=== PATIENT | male | born 1965 | race Caucasian/White ===

== ENCOUNTER 2017-12-28 07:15 | Emergency (ER) | payer SELFPAY ==
[2017-12-28] MEDS: IV NORMAL SALINE 500ML BAG 500 ML IV ×2 (07:36→08:57)
[2017-12-28 07:52] LABS: BASO # 0.1 x10^3/uL (0.0-0.2); BASO % 1 % (0-3); EOS # 2.1 x10^3/uL (0.0-0.7); EOS % 15 % (0-3); HEMATOCRIT 28.6 % (39.0-53.0); HEMOGLOBIN 9.1 g/dL (13.0-17.5); LYMPH # 2.1 x10^3/uL (1.0-4.8); LYMPH % 15 % (24-48); MEAN CORPUSCULAR HEMOGLOBIN 28 pg (25-35); MEAN CORPUSCULAR HGB CONC 32 g/dL (31-37); MEAN CORPUSCULAR VOLUME 89 fL (79-100); MONO # 2.4 x10^3/uL (0.0-1.1); MONO % 17 % (0-9); NEUT # 7.6 x10^3uL (1.8-7.7); NEUT % 53 % (31-73); PLATELET COUNT 295 x10^3/uL (140-400); RED BLOOD COUNT 3.21 x10^6/uL (4.30-5.70); RED CELL DISTRIBUTION WIDTH 15.6 % (11.5-14.5); WHITE BLOOD COUNT 14.4 x10^3/uL (4.0-11.0)
[2017-12-28 07:56] LABS: ANION GAP 14 (6-14); BLOOD UREA NITROGEN 46 mg/dL (8-26); CALCIUM 8.9 mg/dL (8.5-10.1); CARBON DIOXIDE 24 mmol/L (21-32); CHLORIDE 102 mmol/L (98-107); CREATININE 7.2 mg/dL (0.7-1.3); GLUCOSE 102 mg/dL (70-99); POTASSIUM 4.3 mmol/L (3.5-5.1); SODIUM 140 mmol/L (136-145)
[2017-12-28 08:28] LABS: ADD MAN DIFF? YES
[2017-12-28 09:57] LABS: % ATYL 1 % (0-0); % BANDS 1 % (0-9); % EOS 15 % (0-5); % LYMPHS 9 % (24-48); % MONOS 23 % (0-10); % SEGS 51 % (35-66); PLT ESTIMATE ADEQUATE (ADEQUATE)
== END 2017-12-28 09:45 | disposition home or self-care (01) ==
LOC: ER 07:15
DX: Z01.89 Encounter for other specified special examinations (principal); N17.9 Acute kidney failure, unspecified; R00.0 Tachycardia, unspecified
CPT/HCPCS: 36415; 80048; 85007; 85025; 93005; 99285-25; J7040

== ENCOUNTER 2017-12-30 07:53 | Emergency (ER) | payer SELFPAY ==
[2017-12-30] MEDS: IV NORMAL SALINE 500ML BAG 500 ML IV (08:26)
[2017-12-30] MEDS ORDERED: IV NORMAL SALINE 500ML BAG 500 ML IV (08:30)
[2017-12-30 08:48] LABS: ANION GAP 18 (6-14); BLOOD UREA NITROGEN 85 mg/dL (8-26); CALCIUM 8.7 mg/dL (8.5-10.1); CARBON DIOXIDE 19 mmol/L (21-32); CHLORIDE 100 mmol/L (98-107); CREATININE 10.7 mg/dL (0.7-1.3); GFR 5.1; GLUCOSE 125 mg/dL (70-99); POTASSIUM 4.3 mmol/L (3.5-5.1); SODIUM 137 mmol/L (136-145)
[2017-12-30 09:32] LABS: ADD MAN DIFF? NO
[2017-12-30 09:36] LABS: BASO # 0.1 x10^3/uL (0.0-0.2); BASO % 1 % (0-3); EOS # 2.1 x10^3/uL (0.0-0.7); EOS % 15 % (0-3); LYMPH # 1.6 x10^3/uL (1.0-4.8); LYMPH % 11 % (24-48); MEAN CORPUSCULAR HEMOGLOBIN 29 pg (25-35); MEAN CORPUSCULAR HGB CONC 33 g/dL (31-37); MEAN CORPUSCULAR VOLUME 88 fL (79-100); MONO # 2.3 x10^3/uL (0.0-1.1); MONO % 16 % (0-9); NEUT # 8.1 x10^3uL (1.8-7.7); NEUT % 58 % (31-73); PLATELET COUNT 257 x10^3/uL (140-400); RED BLOOD COUNT 2.24 x10^6/uL (4.30-5.70); RED CELL DISTRIBUTION WIDTH 15.7 % (11.5-14.5); WHITE BLOOD COUNT 14.2 x10^3/uL (4.0-11.0)
[2017-12-30 09:38] LABS: HEMOGLOBIN 6.5 g/dL (13.0-17.5)
[2017-12-30 09:39] LABS: HEMATOCRIT 19.7 % (39.0-53.0)
== END 2017-12-30 09:50 | disposition left against medical advice (07) ==
LOC: ER 09:50
DX: N18.6 End stage renal disease (principal); D63.1 Anemia in chronic kidney disease; Z99.2 Dependence on renal dialysis
CPT/HCPCS: 36415; 80048; 85025; 99284; J7040

== ENCOUNTER 2018-01-04 07:23 | Emergency (ER) | payer SELFPAY ==
[2018-01-04 07:50] LABS: ADD MAN DIFF? NO
[2018-01-04 08:00] LABS: ANION GAP 19 (6-14); BLOOD UREA NITROGEN 86 mg/dL (8-26); BUN/CREATININE RATIO 7 (6-20); CALCIUM 9.1 mg/dL (8.5-10.1); CARBON DIOXIDE 16 mmol/L (21-32); CHLORIDE 102 mmol/L (98-107); CREATININE 11.5 mg/dL (0.7-1.3); GFR 4.7; GLUCOSE 197 mg/dL (70-99); POTASSIUM 4.4 mmol/L (3.5-5.1); SODIUM 137 mmol/L (136-145)
[2018-01-04 08:02] LABS: BASO # 0.1 x10^3/uL (0.0-0.2); BASO % 1 % (0-3); EOS # 1.6 x10^3/uL (0.0-0.7); EOS % 13 % (0-3); HEMATOCRIT 24.6 % (39.0-53.0); HEMOGLOBIN 7.9 g/dL (13.0-17.5); LYMPH # 1.1 x10^3/uL (1.0-4.8); LYMPH % 9 % (24-48); MEAN CORPUSCULAR HEMOGLOBIN 28 pg (25-35); MEAN CORPUSCULAR HGB CONC 32 g/dL (31-37); MEAN CORPUSCULAR VOLUME 88 fL (79-100); MONO % 8 % (0-9); NEUT # 8.9 x10^3uL (1.8-7.7); NEUT % 70 % (31-73); PLATELET COUNT 397 x10^3/uL (140-400); RED CELL DISTRIBUTION WIDTH 16.6 % (11.5-14.5); WHITE BLOOD COUNT 12.7 x10^3/uL (4.0-11.0)
[2018-01-04 08:05] LABS: ALBUMIN 2.8 g/dL (3.4-5.0); ALBUMIN/GLOBULIN RATIO 0.5 (1.0-1.7); ALK PHOS 110 U/L (46-116); ALT (SGPT) 23 U/L (16-63); AST (SGOT) 21 U/L (15-37); TOTAL BILIRUBIN 0.2 mg/dL (0.2-1.0); TOTAL PROTEIN 8.1 g/dL (6.4-8.2)
== END 2018-01-04 08:40 | disposition home or self-care (01) ==
LOC: ER 07:23
DX: N18.6 End stage renal disease (principal); Z99.2 Dependence on renal dialysis
CPT/HCPCS: 36415; 80053; 85025; 93005; 99285-25

== ENCOUNTER 2018-01-23 08:03 | Emergency (ER) | payer SELFPAY ==
[2018-01-23 08:37] LABS: ADD MAN DIFF? NO
[2018-01-23 08:42] LABS: BASO # 0.1 x10^3/uL (0.0-0.2); BASO % 1 % (0-3); EOS # 0.8 x10^3/uL (0.0-0.7); EOS % 10 % (0-3); HEMATOCRIT 23.5 % (39.0-53.0); HEMOGLOBIN 7.6 g/dL (13.0-17.5); LYMPH # 1.3 x10^3/uL (1.0-4.8); LYMPH % 17 % (24-48); MEAN CORPUSCULAR HEMOGLOBIN 29 pg (25-35); MEAN CORPUSCULAR HGB CONC 32 g/dL (31-37); MEAN CORPUSCULAR VOLUME 88 fL (79-100); MONO # 1.2 x10^3/uL (0.0-1.1); MONO % 15 % (0-9); NEUT # 4.5 x10^3uL (1.8-7.7); NEUT % 57 % (31-73); PLATELET COUNT 262 x10^3/uL (140-400); RED BLOOD COUNT 2.67 x10^6/uL (4.30-5.70); RED CELL DISTRIBUTION WIDTH 17.9 % (11.5-14.5); WHITE BLOOD COUNT 7.9 x10^3/uL (4.0-11.0)
[2018-01-23 08:54] LABS: ANION GAP 17 (6-14); BLOOD UREA NITROGEN 85 mg/dL (8-26); CALCIUM 8.4 mg/dL (8.5-10.1); CARBON DIOXIDE 13 mmol/L (21-32); CHLORIDE 103 mmol/L (98-107); CREATININE 9.4 mg/dL (0.7-1.3); GFR 5.9; GLUCOSE 92 mg/dL (70-99); POTASSIUM 3.9 mmol/L (3.5-5.1); SODIUM 133 mmol/L (136-145)
[2018-01-23] MEDS: SODIUM BICARBONATE VIAL 150 MEQ in IV STERILE WATER 1,000 ML IV (09:15)
== END 2018-01-23 09:18 | disposition left against medical advice (07) ==
LOC: ER 08:03
DX: N18.6 End stage renal disease (principal); D63.8 Anemia in other chronic diseases classified elsewhere; Z99.2 Dependence on renal dialysis
CPT/HCPCS: 36415; 80048; 85025; 93005; 99285-25

== ENCOUNTER 2018-05-22 01:01 | Emergency (ER) | payer MEDICAID, OTHER ==
[~2018-05-22] VITALS: Ht 172.7 cm; Wt 72.6 kg
[~2018-05-22 01:01] MED LIST: FINA5TAB4 PO; OXYC5CAP PO; PANT20TA2 PO; SODI650T PO; TAMS0.4C97 PO
[2018-05-22 02:30] VITALS: BP 132/62
[2018-05-22 02:37] LABS: BILIRUBIN,URINE NEGATIVE (NEG); CLARITY,URINE TURBID; COLOR,URINE YELLOW; NITRITE,URINE POSITIVE (NEG); PROTEIN,URINE 100 mg/dL (NEG-TRACE); UROBILINOGEN,URINE 0.2 mg/dL (0.2 mg/dL)
[2018-05-22 02:48] LABS: RBC,URINE OCC /HPF (0-2); WBC,URINE TNTC /HPF (0-4)
[2018-05-22 02:49] LABS: BACTERIA,URINE FEW /HPF (0-FEW)
[2018-05-22] MEDS ORDERED: CEPH-264 PO (03:01)
--- NOTE | 2018-05-22 03:02 | PHYS DOC ---
Past Medical History Past Medical History: Renal Failure Additional Past Medical Histor: INCONTINENCE Past Surgical History: Other Additional Past Surgical Histo: Dialysis cath right chest Alcohol Use: None Drug Use: None Adult General Chief Complaint Chief Complaint: URINE CATHETER PROBLEM HPI HPI Patient is a 52 year old [f__sex] who presents with [] Review of Systems Review of Systems Constitutional: Denies fever or chills [] Eyes: Denies change in visual acuity, redness, or eye pain [] HENT: Denies nasal congestion or sore throat [] Respiratory: Denies cough or shortness of breath [] Cardiovascular: No additional information not addressed in HPI [] GI: Denies abdominal pain, nausea, vomiting, bloody stools or diarrhea [] : Denies dysuria or hematuria [] Musculoskeletal: Denies back pain or joint pain [] Integument: Denies rash or skin lesions [] Neurologic: Denies headache, focal weakness or sensory changes [] Endocrine: Denies polyuria or polydipsia [] All other systems were reviewed and found to be within normal limits, except as documented in this note. Current Medications Current Medications Current Medications Medications (Trade) Dose Ordered Sig/Kevin Start Time Stop Time Status Last Admin Dose Admin Cephalexin HCl (Keflex) 500 mg 1X ONCE 05/22/18 03:30 05/22/18 03:31 Allergies Allergies Allergies Coded Allergies Type Severity Reaction Last Updated Verified No Known Drug Allergies 01/04/18 No Physical Exam Physical Exam Constitutional: Well developed, well nourished, no acute distress, non-toxic appearance. [] HENT: Normocephalic, atraumatic, bilateral external ears normal, oropharynx moist, no oral exudates, nose normal. [] Eyes: PERRLA, EOMI, conjunctiva normal, no discharge. [] Neck: Normal range of motion, no tenderness, supple, no stridor. [] Cardiovascular:Heart rate regular rhythm, no murmur [] Lungs & Thorax: Bilateral breath sounds clear to auscultation [] Abdomen: Bowel sounds normal, soft, no tenderness, no masses, no pulsatile masses. [] Skin: Warm, dry, no erythema, no rash. [] Back: No tenderness, no CVA tenderness. [] Extremities: No tenderness, no cyanosis, no clubbing, ROM intact, no edema. [] Neurologic: Alert and oriented X 3, normal motor function, normal sensory function, no focal deficits noted. [] Psychologic: Affect normal, judgement normal, mood normal. [] Current Patient Data Vital Signs Vital Signs Date Time Temp Pulse Resp B/P (MAP) Pulse Ox O2 Delivery O2 Flow Rate FiO2 05/22/18 01:47 97.8 86 20 135/68 (90) 99 Room Air 97.8 Lab Values Laboratory Tests Test 05/22/18 02:26 Urine Collection Type Suprapubic Urine Color Yellow Urine Clarity Turbid Urine pH 6.0 Urine Specific [place] 1.010 Urine Protein 100 mg/dL (NEG-TRACE) Urine Glucose (UA) Negative mg/dL (NEG) Urine Ketones (Stick) Negative mg/dL (NEG) Urine Blood Large (NEG) Urine Nitrite Positive (NEG) Urine Bilirubin Negative (NEG) Urine Urobilinogen Dipstick 0.2 mg/dL (0.2 mg/dL) Urine Leukocyte Esterase Large (NEG) Urine RBC Occ /HPF (0-2) Urine WBC Tntc /HPF (0-4) Urine Bacteria Few /HPF (0-FEW) Urine Mucus Slight /LPF EKG EKG [] Radiology/Procedures Radiology/Procedures [] Course & Med Decision Making Course & Med Decision Making Pertinent Labs and Imaging studies reviewed. (See chart for details) [] Dragon Disclaimer Dragon Disclaimer This electronic medical record was generated, in whole or in part, using a voice recognition dictation system. Departure Departure Impression: Primary Impression: Suprapubic catheter dysfunction Additional Impression: Acute UTI Disposition: 01 HOME, SELF-CARE Condition: STABLE Referrals: NO PCP (PCP) Patient Instructions: Suprapubic Catheter Replacement, Care After, Urinary Tract Infection, [id number] Scripts Cephalexin (KEFLEX) 500 Mg Capsule 500 MG PO TID for 7 Days, #21 CAP Prov: FAMILIA INIGUEZ DO 05/22/18 Problem Qualifiers Primary Impression: Suprapubic catheter dysfunction Encounter type: initial encounter Qualified Codes: T83.010A - Breakdown ( mechanical) of cystostomy catheter, initial encounter FAMILIA INIGUEZ DO May 22, 2018 03:02
[2018-05-22] MEDS ORDERED: CEPHALEXIN 250 MG CAPSULE. PO ONE (03:30)
== END 2018-05-22 03:15 | disposition home or self-care (01) ==
LOC: ER 01:01
DX: T83.010A Breakdown (mechanical) of cystostomy catheter, initial encounter (principal); N39.0 Urinary tract infection, site not specified; Y82.8 Other medical devices associated with adverse incidents; Y92.89 Other specified places as the place of occurrence of the external cause
CPT/HCPCS: 51702; 81001; 87086; 99284-25

== ENCOUNTER 2018-08-05 17:50 | Inpatient (IN) | payer OTHER ==
[~2018-08-05] VITALS: Ht 172.7 cm; Wt 61.7 kg
[~2018-08-05 17:50] MED LIST changes: +CEPH-264 PO; +FERR325T72 PO; +IPRA3AMP29 NEB; +LINE600T PO
--- NOTE | 2018-08-05 18:08 | EKG ---
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
[2018-08-05 18:11] LABS: BASO % 0 % (0-3); EOS # 0.2 x10^3/uL (0.0-0.7); EOS % 2 % (0-3); LYMPH # 1.6 x10^3/uL (1.0-4.8); LYMPH % 19 % (24-48); MEAN CORPUSCULAR HEMOGLOBIN 29 pg (25-35); MEAN CORPUSCULAR HGB CONC 34 g/dL (31-37); MEAN CORPUSCULAR VOLUME 87 fL (79-100); MONO # 1.1 x10^3/uL (0.0-1.1); MONO % 13 % (0-9); NEUT # 5.7 x10^3uL (1.8-7.7); NEUT % 66 % (31-73); PLATELET COUNT 174 x10^3/uL (140-400); RED BLOOD COUNT 1.89 x10^6/uL (4.30-5.70); RED CELL DISTRIBUTION WIDTH 15.6 % (11.5-14.5); WHITE BLOOD COUNT 8.6 x10^3/uL (4.0-11.0)
[2018-08-05 18:14] LABS: HEMATOCRIT 16.4 % (39.0-53.0); HEMOGLOBIN 5.5 g/dL (13.0-17.5)
[2018-08-05 18:25] LABS: CALCIUM 8.6 mg/dL (8.5-10.1); GFR 12.2
[2018-08-05 18:37] LABS: PROTHROMBIN TIME PATIENT 15.7 SEC (11.7-14.0)
--- NOTE | 2018-08-05 18:37 | PHYS DOC ---
Past Medical History Past Medical History: Renal Failure, Other Additional Past Medical Histor: INCONTINENCE Past Surgical History: Other Additional Past Surgical Histo: Dialysis cath right chest, LEFT KIDNEY STENT, SUPRAPUBIC CATH Alcohol Use: None Drug Use: None Adult General Chief Complaint Chief Complaint: SHORTNESS OF BREATH HPI HPI 53-year-old male presents to ER via EMS for complaints of increased shortness of air and fatigue. Patient is a dialysis patient and had 3 hours of dialysis yesterday which he reports was shorter than his typical 4 hours however whether did not allow him to have the full length. Patient states over the past several days he's had increased shortness of air which is worse with any exertion. Denies any chest pain, swelling, or palpitations. Patient denies cough, fever or chills, or N/V/D. patient reports he has had increased fatigue and weakness denies focal neuro deficits. Patient states the last time he felt this short of air his hemoglobin was low. Patient states he is O2 dependent at 2 L on home. Review of Systems Review of Systems Constitutional: Denies fever or chills. Reports generalized fatigue and weakness Eyes: Denies change in visual acuity, redness, or eye pain [] HENT: Denies nasal congestion or sore throat [] Respiratory: Denies cough. Reports SOA w/increased sxs during exertion Cardiovascular: Denies CP/palpitations GI: Denies abdominal pain, nausea, vomiting, bloody stools or diarrhea [] : Denies dysuria or hematuria [] Musculoskeletal: Denies back pain or joint pain [] Integument: Denies rash or skin lesions [] Neurologic: Denies headache, focal weakness or sensory changes [] Endocrine: Denies polyuria or polydipsia [] All other systems were reviewed and found to be within normal limits, except as documented in this note. Current Medications Current Medications Current Medications Medications (Trade) Dose Ordered Sig/Kevin Start Time Stop Time Status Last Admin Dose Admin Acetaminophen (Tylenol) 650 mg PRN Q4HRS PRN 08/05/18 20:15 08/06/18 12:38 DC Albuterol/ Ipratropium (Duoneb) 3 ml 1X ONCE 08/05/18 20:15 08/05/18 20:16 DC 08/05/18 19:42 3 ML Benzonatate (Tessalon Perle) 100 mg 1X ONCE 08/05/18 21:00 08/05/18 21:01 DC 08/05/18 20:42 100 MG Lorazepam (Ativan) 1 mg 1X ONCE 08/05/18 21:00 08/05/18 21:01 DC 08/05/18 20:43 1 MG Piperacillin Sod/ Tazobactam Sod 3.375 gm/Sodium Chloride 50 ml @ 100 mls/hr 1X ONCE 08/05/18 21:00 08/05/18 21:29 DC 08/05/18 20:42 100 MLS/HR Sodium Chloride 500 ml @ 500 mls/hr 1X ONCE 08/05/18 21:00 08/05/18 21:59 DC 08/05/18 21:20 500 MLS/HR Throat Lozenges (Cepacol Sore Throat Lozenge) 1 breezy PRN Q2HRS PRN 08/05/18 20:30 Vancomycin HCl 1.75 gm/Sodium Chloride 500 ml @ 250 mls/hr 1X ONCE 08/05/18 21:00 08/05/18 22:59 DC 08/05/18 21:21 250 MLS/HR Allergies Allergies Allergies Coded Allergies Type Severity Reaction Last Updated Verified No Known Drug Allergies 01/04/18 No Physical Exam Physical Exam Constitutional: Well developed, well nourished, no acute distress, non-toxic appearance.Fatigued/frail appearance HENT: Normocephalic, atraumatic, mucous membranes pale/dry, no oral exudates, nose normal. [] Eyes: PERRLA, no nystagmus, conjunctiva pale, no discharge. [] Neck: Normal range of motion, no tenderness, supple, no stridor. [] Cardiovascular: Tachycardic heart rate regular rhythm, no murmur [] Lungs & Thorax: Bilateral breath sounds clear to auscultation- diminished in bases. Resp. equal/nonlabored. O2 via NC at 3L. Rt upper chest dialysis cath Abdomen: Bowel sounds normal, soft, no tenderness, no masses, no pulsatile masses. Suprapubic catheter left lower abdomen- no swelling, drainage, or erythema at site-attached to drainage bag- concentrated urine in bag Skin: Warm, dry, no erythema, no rash. [] Back: No tenderness, no CVA tenderness. [] Extremities: No tenderness, no cyanosis, no clubbing, ROM intact, no edema. Neurologic: Alert and oriented X 3, normal motor function, normal sensory function, no focal deficits noted. [] Psychologic: Affect normal, judgement normal, anxious at times during initial exam. When patient was moved from EMS cart onto ER cart patient had increased shortness of air and was anxious requesting oxygen to be turned up. Once settled onto ER cart and reassurance provided patient was able to become calm having no uncontrollable behavior. 1830: Rectal exam complete with RN at bedside for gray tender No external hemorrhoids or rashes/lesions. No gross blood on exam. No rectal impaction Current Patient Data Vital Signs Vital Signs Date Time Temp Pulse Resp B/P (MAP) Pulse Ox O2 Delivery O2 Flow Rate FiO2 08/05/18 20:55 117 148/84 (105) 87 Nasal Cannula 4.0 08/05/18 17:50 98.1 24 98.1 Lab Values Laboratory Tests Test 08/05/18 18:00 08/05/18 18:30 White Blood Count 8.6 x10^3/uL (4.0-11.0) Red Blood Count 1.89 x10^6/uL (4.30-5.70) L Hemoglobin 5.5 g/dL (13.0-17.5) *L Hematocrit 16.4 % (39.0-53.0) *L Mean Corpuscular Volume 87 fL (79-100) Mean Corpuscular Hemoglobin 29 pg (25-35) Mean Corpuscular Hemoglobin Concent 34 g/dL (31-37) Red Cell Distribution Width 15.6 % (11.5-14.5) H Platelet Count 174 x10^3/uL (140-400) Neutrophils (%) (Auto) 66 % (31-73) Lymphocytes (%) (Auto) 19 % (24-48) L Monocytes (%) (Auto) 13 % (0-9) H Eosinophils (%) (Auto) 2 % (0-3) Basophils (%) (Auto) 0 % (0-3) Neutrophils # (Auto) 5.7 x10^3uL (1.8-7.7) Lymphocytes # (Auto) 1.6 x10^3/uL (1.0-4.8) Monocytes # (Auto) 1.1 x10^3/uL (0.0-1.1) Eosinophils # (Auto) 0.2 x10^3/uL (0.0-0.7) Basophils # (Auto) 0.0 x10^3/uL (0.0-0.2) Prothrombin Time 15.7 SEC (11.7-14.0) H Prothrombin Time INR 1.3 (0.8-1.1) H PTT 36 SEC (24-38) Sodium Level 139 mmol/L (136-145) Potassium Level 4.0 mmol/L (3.5-5.1) Chloride Level 101 mmol/L (98-107) Carbon Dioxide Level 34 mmol/L (21-32) H Anion Gap 4 (6-14) L Blood Urea Nitrogen 25 mg/dL (8-26) Creatinine 5.0 mg/dL (0.7-1.3) H Estimated GFR (Cockcroft-Gault) 12.2 BUN/Creatinine Ratio 5 (6-20) L Glucose Level 105 mg/dL (70-99) H Lactic Acid Level 3.7 mmol/L (0.4-2.0) H Calcium Level 8.6 mg/dL (8.5-10.1) Magnesium Level 1.7 mg/dL (1.8-2.4) L Total Bilirubin 0.2 mg/dL (0.2-1.0) Aspartate Amino Transferase (AST) 42 U/L (15-37) H Alanine Aminotransferase (ALT) 6 U/L (16-63) L Alkaline Phosphatase 117 U/L (46-116) H Troponin I Quantitative 0.046 ng/mL (0.000-0.055) Total Protein 7.9 g/dL (6.4-8.2) Albumin 2.0 g/dL (3.4-5.0) L Albumin/Globulin Ratio 0.3 (1.0-1.7) L Stool Occult Blood Negative (NEG) Laboratory Tests 08/05/18 18:00 Laboratory Tests 08/05/18 18:00 Microbiology 08/05/18 Blood Culture - Preliminary, Resulted NO GROWTH AFTER 1 DAY EKG EKG EKG obtained 08/05/18 at [address] Bueno Sinus tachycardia T wave abnorm. Rate 115 No STEMI Radiology/Procedures Radiology/Procedures PROCEDURE: CHEST AP ONLY EXAM: CHEST 1 VIEW History: Shortness of breath, fatigue COMPARISON: 07/11/2018 TECHNIQUE: Single portable radiograph of the chest FINDINGS: Mild cardiomegaly. Diffuse prominent interstitial lung markings likely congestive changes increased since prior exam. I don't foci of airspace opacities identified in the bilateral lungs likely pleural effusions identified similar to prior exam. Patchy bibasilar lung airspace opacities.Right-sided dialysis catheter again identified. IMPRESSION: 1. Moderate congestive changes. Round foci of airspace opacities identified in the bilateral lungs could be loculated bilateral pleural effusions identified. 2. Patchy bibasilar lung airspace opacities likely atelectasis or infiltrates. Electronically signed by: Timo Thapa MD (08/05/2018 6:47 PM) [id number] DICTATED and SIGNED BY: TIMO THAPA MD DATE: 08/05/181842 Course & Med Decision Making Course & Med Decision Making Pertinent Labs and Imaging studies reviewed. (See chart for details) 5: RN reports patient's H&H of 5.5/16.4. This was discussed with patient. Patient will be type and screen to have 2 units packed red blood cells transfused with patient being symptomatic having shortness of air and fatigue. Will obtain fecal occult-she does deny any dark tarry or bloody stools. Admission was discussed and pt is agreeable with this plan. 8: Spoke with Dr. Alvarado, hospitalist and discussed pt's case and admit plan. Discussed blood cultures being obtained and with patient's x-ray showing pneumonia will start patient on vancomycin and Zosyn as he was inpatient last month. Patient had 3.7 lactic acid WBCs were normal limits at 8.6. Dr. Alvarado is wanting blood cultures obtained via peripheral and dialysis catheter prior to antibiotics- RN was informed of this request and is calling ICU to see if anyone in house can access dialysis cath for cxs. Patient is being admitted to [facility] for further care and monitoring. Patient was afebrile at 98.1 but did remain tachycardic at 105-110 while in the ER. EKG with no acute ST elevation or STEMI and troponin was 0.046. Patient had negative fecal occult. 5: RN reports patient had increased coughing and was feeling increasingly short of air. Patient's cough is coarse and he continues to have diminished lung sounds and bilateral lower lobes. DuoNeb treatment ordered and patient with increased anxiety will provide dose of IV Ativan. 2019: Patient had improved O2 sat of 95% following DuoNeb is increase in air movement in upper lobes he does remain diminished in bilateral lower lobes. DuoNeb treatment has increased his coughing episodes which has caused patient to become more anxious. He denies CP/palpitations. Additional dose of Ativan ordered along with Cepacol lozenges and tessalon pearle per his request. He is waiting on room assignment for admit. 2054: Pt received IV Ativan and redirection on his breathing pattern from RN- on re-exam by this provider pt is having episodes of confusion which could be r/ t dose of Ativan. ABGs ordered- pt's admit orders changed to ICU. There is a delay on the transfusion as blood bank called and reports pt has antibody in his blood type which requires certain blood and this facility does not have this readily available. Pt's case and plan of care was discussed with Dr. Bueno. Head CT was ordered. Patient is attempting to pull off monitor leads and has been redirected by RN. Patient remains anxious and intermittently confused. Orders placed for head CT and CTA chest patient remains tachycardic at 118 O2 sat 88-90% on 4 L. ABGs were obtained and results provided to Dr. Bueno by RT and respiratory at bedside applying Ventimask as pt is hypoxic on ABGs. With Ventimask pt had improved O2 sat at 97% and with renal function CTA chest was cancelled and VQ scan will be ordered. Dragon Disclaimer Dragon Disclaimer This electronic medical record was generated, in whole or in part, using a voice recognition dictation system. Departure Departure Impression: Primary Impression: Anemia in chronic kidney disease Additional Impressions: Pneumonia Dyspnea Disposition: ADMITTED INPATIENT Admitting Physician: Other (Dr. Alvarado) Condition: STABLE Referrals: NO PCP (PCP) Problem Qualifiers MARCELO VARMA APRN Aug 05, 2018 18:37
[2018-08-05 18:40] LABS: ALBUMIN/GLOBULIN RATIO 0.3 (1.0-1.7); MAGNESIUM 1.7 mg/dL (1.8-2.4); TOTAL BILIRUBIN 0.2 mg/dL (0.2-1.0); TOTAL PROTEIN 7.9 g/dL (6.4-8.2)
[2018-08-05 18:47] LABS: FECAL OB PT NEGATIVE (NEG)
--- NOTE | 2018-08-05 18:51 | RAD ---
EXAM: CHEST 1 VIEW History: Shortness of breath, fatigue COMPARISON: 07/11/2018 TECHNIQUE: Single portable radiograph of the chest FINDINGS: Mild cardiomegaly. Diffuse prominent interstitial lung markings likely congestive changes increased since prior exam. I don't foci of airspace opacities identified in the bilateral lungs likely pleural effusions identified similar to prior exam. Patchy bibasilar lung airspace opacities.Right-sided dialysis catheter again identified. IMPRESSION: 1. Moderate congestive changes. Round foci of airspace opacities identified in the bilateral lungs could be loculated bilateral pleural effusions identified. 2. Patchy bibasilar lung airspace opacities likely atelectasis or infiltrates. Electronically signed by: Timo Thapa MD (08/05/2018 6:47 PM) [id number]
[2018-08-05] MEDS ORDERED: ACETAMINOPHEN 325 MG TABLET. PO PRN (20:15)
[2018-08-05] MEDS ORDERED: IPRATRPIUM/ALBUTEROL 0.5/2.5MG 3 ML NEBU. NEB ONE (20:15)
[2018-08-05] MEDS ORDERED: BENZOCAINE/MENTHOL LOZENGE. PO PRN (20:30)
[2018-08-05] MEDS ORDERED: IV NORMAL SALINE 500ML BAG 500 ML IV ONE (21:00)
[2018-08-05] MEDS ORDERED: VANCOMYCIN 1.75 GM in IV NORMAL SALINE 500ML BAG 500 ML IV ONE (21:00)
[2018-08-05] MEDS ORDERED: PIPERACILLIN/TAZOBACTAM 3.375 GM in IV NORMAL SALINE 50ML 50 ML IV ONE (21:00)
[2018-08-05] MEDS ORDERED: BENZONATATE 100 MG CAPSULE. PO ONE (21:00)
[2018-08-05 21:09] LABS: BASE EXCESS ABG 4 mmol/L (-3-3); HCO3 ABG 28 mmol/L (21-28); PCO2 ABG 36 mmHg (35-46); PO2 ABG 54 mmHg (75-108)
[2018-08-05 21:15] LABS: FIO2 ABG 40; SAT O2 ABG 86 % (92-99)
[2018-08-05 22:00] VITALS: BP 165/81
--- NOTE | 2018-08-05 22:13 | RAD ---
CT HEAD INDICATION: CONFUSION, PATIENT MOVED DURING EXAM - REPEATED. COMPARISON: None Available. Exposure: One or more of the following individualized dose reduction techniques were utilized for this examination: 1. Automated exposure control 2. Adjustment of the mA and/or kV according to patient size 3. Use of iterative reconstruction technique TECHNIQUE: 5 mm contiguous axial images were obtained from the skull base to the vertex in both bone and soft tissue algorithm. FINDINGS: Mild bilateral periventricular white matter hypodensities likely chronic small vessel ischemic disease. No evidence of acute intracranial hemorrhage. No extra-axial fluid collections. No mass effect or midline shift. Ventricular size is appropriate. Basal cisterns are patent. No fractures identified.Forte-white differentiation is preserved.Globes and orbits are within normal limits. Paranasal sinuses and mastoid air cells are clear. IMPRESSION: No acute intracranial findings. Electronically signed by: Timo Thapa MD (08/05/2018 10:08 PM) [facility]
[2018-08-05 22:15] VITALS: BP 155/68
[2018-08-05 22:30] VITALS: BP 161/94
[2018-08-05 22:45] VITALS: BP 154/107
[2018-08-05] MEDS ORDERED: FUROSEMIDE 100 MG/10 ML VIAL. IVP ONE (23:00)
[2018-08-05] MEDS ORDERED: IV NORMAL SALINE 500ML BAG 500 ML IV PRN (23:30)
[2018-08-05] MEDS ORDERED: ATROPINE 0.5 MG/5 ML DISP.SYRINGE. IV PRN (23:30)
[2018-08-05 23:49] VITALS: BP 114/68
[2018-08-05] MEDS: risperiDONE 1 MG TABLET. PO PRN (23:53)
[2018-08-06] VITALS (30 sets, daily range): BP systolic 97–159; BP diastolic 62–107
[2018-08-06] MEDS: DEXMEDETOMIDINE 200 MCG in IV NORMAL SALINE 50ML 48 ML IV PRN ×2 (00:02→06:20)
[2018-08-06] MEDS ORDERED: PIP/TAZO PER PHARMACY MC PRN (03:45)
[2018-08-06] MEDS: PIPERACILLIN/TAZOBACTAM 2.25 GM in IV NORMAL SALINE 50ML 50 ML IV SCH ×3 (05:40→22:00)
[2018-08-06] MEDS: VANCOMYCIN PER PHARMACY MC PRN ×2 (05:57→13:12)
--- NOTE | 2018-08-06 08:07 | RAD ---
Portable chest, 08/06/2018: HISTORY: Respiratory distress Comparison is made to yesterday's study. A right jugular dialysis type catheter remains in place extending into the superior aspect of the right atrium. The heart is mildly enlarged. The pulmonary vascularity appears congested with loss of vascular margination. This has improved slightly since yesterday study. There is worsening infiltrate in the left lung laterally. There are additional patchy infiltrates in both lungs and bilateral pleural effusions. A rounded opacity overlying the right lung laterally is unchanged. There is a smaller unchanged rounded opacities more superiorly in the right lung. More numerous bilateral cavitary nodules were present in both lungs on the CT study of 07/05/2018. The currently seen nodular opacities may represent the residue of septic emboli. A neoplastic etiology cannot be excluded. IMPRESSION: 1. Vascular congestion has improved slightly. 2. Worsening left lateral pulmonary infiltrate. 3. Residual pulmonary nodules. 4. Small bilateral pleural effusions Electronically signed by: Jt Reyes MD (08/06/2018 8:03 AM) [facility]
[2018-08-06 08:39] LABS: BASE EXCESS ABG 7 mmol/L (-3-3); HCO3 ABG 31 mmol/L (21-28); PCO2 ABG 43 mmHg (35-46); PO2 ABG 83 mmHg (75-108); SAT O2 ABG 95 % (92-99)
[2018-08-06 08:41] LABS: FIO2 ABG 25
[2018-08-06 10:24] LABS: BASO # 0.1 x10^3/uL (0.0-0.2); BASO % 1 % (0-3); EOS # 0.4 x10^3/uL (0.0-0.7); EOS % 6 % (0-3); LYMPH # 1.1 x10^3/uL (1.0-4.8); LYMPH % 16 % (24-48); MEAN CORPUSCULAR HEMOGLOBIN 29 pg (25-35); MEAN CORPUSCULAR HGB CONC 35 g/dL (31-37); MEAN CORPUSCULAR VOLUME 83 fL (79-100); MONO # 0.9 x10^3/uL (0.0-1.1); MONO % 13 % (0-9); NEUT # 4.5 x10^3uL (1.8-7.7); NEUT % 64 % (31-73); PLATELET COUNT 120 x10^3/uL (140-400); RED BLOOD COUNT 2.35 x10^6/uL (4.30-5.70)
[2018-08-06 10:27] LABS: HEMATOCRIT 19.6 % (39.0-53.0); HEMOGLOBIN 6.8 g/dL (13.0-17.5)
[2018-08-06 10:29] LABS: ALBUMIN 1.7 g/dL (3.4-5.0); ALBUMIN/GLOBULIN RATIO 0.3 (1.0-1.7); CALCIUM 8.3 mg/dL (8.5-10.1); CREATININE 5.8 mg/dL (0.7-1.3); GFR 10.2; POTASSIUM 4.3 mmol/L (3.5-5.1); TOTAL BILIRUBIN 0.4 mg/dL (0.2-1.0); TOTAL PROTEIN 6.6 g/dL (6.4-8.2)
--- NOTE | 2018-08-06 10:42 | CONS ---
DATE OF CONSULTATION: 08/06/2018 ATTENDING PHYSICIAN: Dr. Alvarado. REASON FOR CONSULTATION: Respiratory failure. HISTORY OF PRESENT ILLNESS: The patient is a 53-year-old male who has history of tobacco use for 30 years and underlying chronic obstructive pulmonary disease. He was last hospitalized in June and had respiratory failure, had abnormal CT chest with bilateral cavitary nodules, which were highly suspicious for septic emboli. He had staph bacteremia with persistent positive blood cultures. His transesophageal echo did not reveal any definite vegetations. He also had loculated pleural effusions on both the sides related to low oncotic pressure. He underwent diagnostic thoracentesis as well. The patient was treated for urinary tract infection on 06/28/2018 with Proteus and Klebsiella. He has chronic suprapubic catheter. He was brought into the hospital with increasing shortness of breath. The patient states it has been progressive last few days. He has a mild cough, which was dry. No fever, no chills, no chest pains. No nausea, vomiting, no diarrhea, no dysuria, no focal weakness. Last night, I was called about his dyspnea as well as combativeness and restlessness. His arterial blood gases reveal a pH of 7.50, pCO2 of 36 and a pO2 of 54 on 40% FiO2. At that time, I had placed the patient on BiPAP. He was also started on Precedex. His CT head was negative. His chest x-ray was reviewed and it shows evidence of congestive heart failure and then also loculated right-sided rounded pleural densities related to loculated fluid collection. His followup chest x-ray shows improving congestive heart failure. He did receive Lasix. He also received 2 units of packed RBCs as he was anemic. He has no obvious gastrointestinal loss. This morning, his x-ray shows also new focal consolidation in the left mid lung and also rounded density looks more obvious on the right side. He is now off the BiPAP. His ABGs this morning showed a pH of 7.47, pCO2 of 43 and a pO2 of 83 on 25% FiO2. He denies any substance abuse. PAST MEDICAL HISTORY: Significant for history of end-stage renal disease on hemodialysis, history of previous abnormal CT chest with bilateral cavitary nodular densities suspicious for septic emboli, history of staph bacteremia, history of Klebsiella and Proteus urinary tract infection in June, history of any acute on chronic anemia. PAST SURGICAL HISTORY: Dialysis catheter, history of thoracentesis, history of left kidney stent and suprapubic catheter. ALLERGIES: None. MEDICATIONS: Reviewed as listed in the MRAD including broad-spectrum antibiotics. REVIEW OF SYSTEMS: Twelve-point system obtained. Pertinent positives discussed in my history of present illness, otherwise noncontributory. All systems that were negative were reviewed as well. SOCIAL HISTORY: Smoked for 30 years. Denies substance abuse. PHYSICAL EXAMINATION: VITAL SIGNS: Reviewed. He is afebrile. His blood pressure is stable. Pulse ox is 100% on current room air. HEENT: Sclerae nonicteric. NECK: Supple. LUNGS: With diminished breath sounds at the bases. CARDIOVASCULAR: Regular rate. ABDOMEN: Soft. EXTREMITIES: With no pitting edema. LABORATORY DATA: Reviewed. White cell count 8.6, hemoglobin 5.5 and platelets are 174. BUN and creatinine 25 and 5.0. IMPRESSION: 1. Acute hypoxic respiratory failure secondary to multifactorial etiologies including acute on chronic anemia, congestive heart failure and acute exacerbation of chronic obstructive pulmonary disease. 2. Abnormal chest x-ray with bilateral interstitial infiltrates present on admission, which has improved, related to congestive heart failure. He has focal rounded density in the right lung, which is likely related to residual right pleural effusion when comparisons were made to old x-ray and has new focal consolidation in the left upper lobe, which could be fluid versus pneumonia. 3. Previous echo with normal ejection fraction of 60%. 4. History of prior thoracentesis. 5. End-stage renal disease, on hemodialysis. 6. Clinically, less likely thromboembolic disease but cannot be ruled out. 7. Acute on chronic anemia with a hemoglobin of 5.5 present on admission, status post 2 units of packed red blood cells. No obvious gastrointestinal losses. 8. Underlying chronic obstructive pulmonary disease with unknown FEV1. 9. h/o Recent cavitary pneumonia, septic emboli 10. Recent staph bacteremia RECOMMENDATIONS: 1. Continue with present p.r.n. BiPAP. Currently off oxygen and BiPAP. 2. Obtain CTA chest. We will assess for loculated effusion as well as rule out thromboembolic disease. Needs to f/u on cavitary lung masses as well. 3. Broad-spectrum antibiotics. 4. Monitor for any fever and follow ID recommendations. 5. Follow Renal recommendations. 6. DVT prophylaxis. 7. Discussed with RN and RT. Further recommendations to follow after review of CT chest. Discussed with Renal. 8. Monitor Hb closely and follow GI rec Critical care time 40 minutes. RUDI DAVALOS MD DR: RAUDEL/macey JOB#: [id number] / [id number]
[2018-08-06] MEDS ORDERED: IOHEXOL 350 MG/ML 100 ML VIAL. IV ONE (11:00)
[2018-08-06] MEDS ORDERED: CONTRAST GIVEN. MC PRN (11:15)
--- NOTE | 2018-08-06 11:42 | PDOC2 ---
CONSULT Date of Consult Date of Consult DATE: 08/06/18 TIME: 11:15 Reason for Consult Reason for Consult: ESRD on HD TTS Source Source: Chart review, Patient History of Present Illness Reason for Visit: Pt is a 53-year-old CM ESRD on HD , COPD, Hx of Tobacco use. He was hospitalized in June 2018 with respiratory failure, abnormal CT chest with bilateral cavitary nodules, which were highly suspicious for septic emboli. He had staph bacteremia with persistent positive blood cultures. RADHA did not reveal any definite vegetations. He underwent diagnostic thoracentesis as well. He has chronic suprapubic catheter He was brought into the hospital with increasing shortness of breath,has been progressive last few days. C/O mild cough Denies fever, no chills, no chest pains. No nausea, vomiting, no diarrhea, no dysuria, Last Night he was placed on Bipap His chest x-ray showed e/o chf ,heart failure and loculated right-sided rounded pleural densities. He recd Lasix Followup chest x-ray this am showed improvement in congestion . He also received 2 units of PRBCs. He states he is feeling better . Has not Missed any HD since dced in Jun Past Medical History Cardiovascular: No pertinent hx Pulmonary: No pertinent hx GI: No pertinent hx Heme/Onc: No pertinent hx Hepatobiliary: No pertinent hx Psych: No pertinent hx Rheumatologic: No pertinent hx Infectious disease: No pertinent hx Renal/: No pertinent hx Endocrine: No pertinent hx Family History Family History: Coronary Artery Disease Social History ALCOHOL: other Drugs: None Lives: with Family Current Problem List Problem List Problems Medical Problems: (1) Dyspnea Status: Acute (2) Pneumonia Status: Acute Current Medications Current Medications Current Medications Albuterol/ Ipratropium (Duoneb) 3 ml 1X ONCE NEB Last administered on at 19:42; Start 08/05/18 at 20:15; Stop 08/05/18 at 20:16; Status DC Lorazepam (Ativan) 0.5 mg 1X ONCE IV Last administered on 08/05/18at 19:47; Start 08/05/18 at 20:15; Stop 08/05/18 at 20:16; Status DC Piperacillin Sod/ Tazobactam Sod 3.375 gm/Sodium Chloride 50 ml @ 100 mls/hr 1X ONCE IV Last administered on 08/05/18at 20:42; Start 08/05/18 at 21:00; Stop 08/05/18 at 21:29; Status DC Vancomycin HCl 1.75 gm/Sodium Chloride 500 ml @ 250 mls/hr 1X ONCE IV Last administered on 08/05/18at 21:21; Start 08/05/18 at 21:00; Stop 08/05/18 at 22:59 ; Status DC Acetaminophen (Tylenol) 650 mg PRN Q4HRS PRN PO FEVER; Start 08/05/18 at 20:15 ; Stop 08/06/18 at 20:14 Magnesium Oxide (Magnesium Oxide) 400 mg DAILY PO ; Start 08/06/18 at 09:00 Benzonatate (Tessalon Perle) 100 mg 1X ONCE PO Last administered on 08/05/18at 20:42; Start 08/05/18 at 21:00; Stop 08/05/18 at 21:01; Status DC Throat Lozenges (Cepacol Sore Throat Lozenge) 1 breezy PRN Q2HRS PRN PO SORE THROAT; Start 08/05/18 at 20:30 Lorazepam (Ativan) 1 mg 1X ONCE IV Last administered on 08/05/18at 20:43; Start 08/05/18 at 21:00; Stop 08/05/18 at 21:01; Status DC Sodium Chloride 500 ml @ 500 mls/hr 1X ONCE IV Last administered on at 21:20; Start 08/05/18 at 21:00; Stop 08/05/18 at 21:59; Status DC Lorazepam (Ativan) 2 mg PRN Q4HRS PRN IV ANXIETY / AGITATION Last administered on 08/05/18at 23:54; Start 08/05/18 at 23:00 Risperidone (RisperDAL) 2 mg PRN Q12HRS PRN PO ANXIETY / AGITATION Last administered on 08/05/18 23:53; Start 08/05/18 at 23:00 Furosemide (Lasix) 80 mg 1X ONCE IVP Last administered on 08/06/18at 05:40; Start 08/05/18 at 23:00; Stop 08/05/18 at 23:02; Status DC Dexmedetomidine HCl 200 mcg/ Sodium Chloride 50 ml @ 0 mls/hr CONT PRN IV PER PROTOCOL Last administered on 08/06/18at 06:20; Start 08/05/18 at 23:30 Sodium Chloride 500 ml @ 500 mls/hr 1X PRN PRN IV SEE COMMENTS; Start at 23:30 Atropine Sulfate (ATROPINE 0.5mg SYRINGE) 0.5 mg PRN Q5MIN PRN IV SEE COMMENTS ; Start 08/05/18 at 23:30 Piperacillin Sod/ Tazobactam Sod (Zosyn Per Pharmacy) 1 each PRN DAILY PRN MC SEE COMMENTS; Start 08/06/18 at 03:45 Vancomycin HCl (Vanco Per Pharmacy) 1 each PRN DAILY PRN MC SEE COMMENTS Last administered on 08/06/18at 05:57; Start 08/06/18 at 04:00 Piperacillin Sod/ Tazobactam Sod 2.25 gm/Sodium Chloride 50 ml @ 100 mls/hr Q8HRS IV Last administered on 08/06/18at 05:40; Start 08/06/18 at 06:00 Vancomycin HCl (Vancomycin Trough Level) 1 each 1X ONCE MC ; Start 08/07/18 at 21:30; Stop 08/07/18 at 21:31 Albuterol/ Ipratropium (Duoneb) 3 ml RTQID NEB ; Start 08/06/18 at 08:30 Iohexol (Omnipaque 350 Mg/ml) 85 ml 1X ONCE IV Last administered on 08/06/18at 11:00; Start 08/06/18 at 11:00; Stop 08/06/18 at 11:01; Status DC Info (CONTRAST GIVEN -- Rx MONITORING) 1 each PRN DAILY PRN MC SEE COMMENTS; Start 08/06/18 at 11:15; Stop 08/08/18 at 11:14 Active Scripts Active Feosol (Ferrous Sulfate) 325 Mg Tablet 325 Mg PO DAILYWBKFT 14 Days Duoneb 0.5-3(2.5) Mg/3 Ml (Albuterol/Ipratropium) 3 Ml Ampul.neb 3 Ml NEB RTQID 30 Days Zyvox (Linezolid) 600 Mg Tablet 600 Mg PO BID 28 Days Sodium Bicarbonate 650 Mg Tablet 2 Tab PO BID 30 Days Oxycodone Hcl 5 Mg Capsule 1 Cap PO BID Protonix (Pantoprazole Sodium) 20 Mg Tablet.dr 1 Tab PO DAILY Flomax (Tamsulosin Hcl) 0.4 Mg Cap.er.24h 1 Cap PO DAILY Finasteride 5 Mg Tablet 1 Tab PO DAILY Allergies Allergies: Coded Allergies: No Known Drug Allergies (Unverified , 01/04/18) ROS Review of System As per HPI Physical Exam Physical Exam Gen- NAD,Not on Bipap HEENT- On O2 by NC NECK: Supple. LUNGS: With diminished breath sounds at the bases. CARDIOVASCULAR: Regular rate. ABDOMEN: Soft. EXTREMITIES: no pitting edema Neuro- Alert , awake Skin No rash - SP Cath +, No SP tenderness Vital Signs Vital Signs Date Time Temp Pulse Resp B/P (MAP) Pulse Ox O2 Delivery O2 Flow Rate FiO2 08/06/18 10:00 98 22 159/75 (103) 98 BiPAP/CPAP 08/06/18 09:00 98.8 98.8 08/05/18 21:55 15.0 Assessment & Plan ESRD - On HD TTS at [facility] Last HD on Monday Labs stable, Volume status- Improved- decrease congestion on CxR Not On Bipap any More, recd Lasix last Night E-Lytes and acid base stable, Pulm status improved , will re-eval later today for [employer]/UF if change in status Acute hypoxic respiratory failure secondary to multifactorial etiologies including acute on chronic anemia, congestive heart failure and acute exacerbation of chronic obstructive pulmonary disease. S/P CTA this am, awaiting report , ,Pulm managing Anemia- at previous admission as well was seen by Hem/Onc Recd 2 Units of PRBC, Hgb staying <7, another unit ordered by primary Discussed with Dr. Helton and RN Labs Labs Laboratory Tests Test 08/05/18 18:00 08/05/18 18:30 08/05/18 21:07 08/05/18 22:10 White Blood Count 8.6 x10^3/uL (4.0-11.0) Red Blood Count 1.89 x10^6/uL (4.30-5.70) Hemoglobin 5.5 g/dL (13.0-17.5) Hematocrit 16.4 % (39.0-53.0) Mean Corpuscular Volume 87 fL (79-100) Mean Corpuscular Hemoglobin 29 pg (25-35) Mean Corpuscular Hemoglobin Concent 34 g/dL (31-37) Red Cell Distribution Width 15.6 % (11.5-14.5) Platelet Count 174 x10^3/uL (140-400) Neutrophils (%) (Auto) 66 % (31-73) Lymphocytes (%) (Auto) 19 % (24-48) Monocytes (%) (Auto) 13 % (0-9) Eosinophils (%) (Auto) 2 % (0-3) Basophils (%) (Auto) 0 % (0-3) Neutrophils # (Auto) 5.7 x10^3uL (1.8-7.7) Lymphocytes # (Auto) 1.6 x10^3/uL (1.0-4.8) Monocytes # (Auto) 1.1 x10^3/uL (0.0-1.1) Eosinophils # (Auto) 0.2 x10^3/uL (0.0-0.7) Basophils # (Auto) 0.0 x10^3/uL (0.0-0.2) Prothrombin Time 15.7 SEC (11.7-14.0) Prothromb Time International Ratio 1.3 (0.8-1.1) Activated Partial Thromboplast Time 36 SEC (24-38) Sodium Level 139 mmol/L (136-145) Potassium Level 4.0 mmol/L (3.5-5.1) Chloride Level 101 mmol/L (98-107) Carbon Dioxide Level 34 mmol/L (21-32) Anion Gap 4 (6-14) Blood Urea Nitrogen 25 mg/dL (8-26) Creatinine 5.0 mg/dL (0.7-1.3) Estimated GFR (Cockcroft-Gault) 12.2 BUN/Creatinine Ratio 5 (6-20) Glucose Level 105 mg/dL (70-99) Lactic Acid Level 3.7 mmol/L (0.4-2.0) 3.8 mmol/L (0.4-2.0) Calcium Level 8.6 mg/dL (8.5-10.1) Magnesium Level 1.7 mg/dL (1.8-2.4) Total Bilirubin 0.2 mg/dL (0.2-1.0) Aspartate Amino Transf (AST/SGOT) 42 U/L (15-37) Alanine Aminotransferase (ALT/SGPT) 6 U/L (16-63) Alkaline Phosphatase 117 U/L (46-116) Troponin I Quantitative 0.046 ng/mL (0.000-0.055) Total Protein 7.9 g/dL (6.4-8.2) Albumin 2.0 g/dL (3.4-5.0) Albumin/Globulin Ratio 0.3 (1.0-1.7) Stool Occult Blood Negative (NEG) O2 Saturation 86 % (92-99) Arterial Blood pH 7.50 (7.35-7.45) Arterial Blood pCO2 at Patient Temp 36 mmHg (35-46) Arterial Blood pO2 at Patient Temp 54 mmHg (75-108) Arterial Blood HCO3 28 mmol/L (21-28) Arterial Blood Base Excess 4 mmol/L (-3-3) FiO2 40 Test 08/06/18 08:21 08/06/18 09:37 O2 Saturation 95 % (92-99) Arterial Blood pH 7.47 (7.35-7.45) Arterial Blood pCO2 at Patient Temp 43 mmHg (35-46) Arterial Blood pO2 at Patient Temp 83 mmHg (75-108) Arterial Blood HCO3 31 mmol/L (21-28) Arterial Blood Base Excess 7 mmol/L (-3-3) FiO2 25 White Blood Count 7.0 x10^3/uL (4.0-11.0) Red Blood Count 2.35 x10^6/uL (4.30-5.70) Hemoglobin 6.8 g/dL (13.0-17.5) Hematocrit 19.6 % (39.0-53.0) Mean Corpuscular Volume 83 fL (79-100) Mean Corpuscular Hemoglobin 29 pg (25-35) Mean Corpuscular Hemoglobin Concent 35 g/dL (31-37) Red Cell Distribution Width 17.0 % (11.5-14.5) Platelet Count 120 x10^3/uL (140-400) Neutrophils (%) (Auto) 64 % (31-73) Lymphocytes (%) (Auto) 16 % (24-48) Monocytes (%) (Auto) 13 % (0-9) Eosinophils (%) (Auto) 6 % (0-3) Basophils (%) (Auto) 1 % (0-3) Neutrophils # (Auto) 4.5 x10^3uL (1.8-7.7) Lymphocytes # (Auto) 1.1 x10^3/uL (1.0-4.8) Monocytes # (Auto) 0.9 x10^3/uL (0.0-1.1) Eosinophils # (Auto) 0.4 x10^3/uL (0.0-0.7) Basophils # (Auto) 0.1 x10^3/uL (0.0-0.2) Sodium Level 144 mmol/L (136-145) Potassium Level 4.3 mmol/L (3.5-5.1) Chloride Level 104 mmol/L (98-107) Carbon Dioxide Level 33 mmol/L (21-32) Anion Gap 7 (6-14) Blood Urea Nitrogen 33 mg/dL (8-26) Creatinine 5.8 mg/dL (0.7-1.3) Estimated GFR (Cockcroft-Gault) 10.2 BUN/Creatinine Ratio 6 (6-20) Glucose Level 82 mg/dL (70-99) Lactic Acid Level 1.2 mmol/L (0.4-2.0) Calcium Level 8.3 mg/dL (8.5-10.1) Total Bilirubin 0.4 mg/dL (0.2-1.0) Aspartate Amino Transf (AST/SGOT) 38 U/L (15-37) Alanine Aminotransferase (ALT/SGPT) 8 U/L (16-63) Alkaline Phosphatase 98 U/L (46-116) Total Protein 6.6 g/dL (6.4-8.2) Albumin 1.7 g/dL (3.4-5.0) Albumin/Globulin Ratio 0.3 (1.0-1.7) Laboratory Tests Test 08/05/18 18:00 08/05/18 18:30 08/05/18 21:07 08/05/18 22:10 White Blood Count 8.6 x10^3/uL (4.0-11.0) Red Blood Count 1.89 x10^6/uL (4.30-5.70) Hemoglobin 5.5 g/dL (13.0-17.5) Hematocrit 16.4 % (39.0-53.0) Mean Corpuscular Volume 87 fL (79-100) Mean Corpuscular Hemoglobin 29 pg (25-35) Mean Corpuscular Hemoglobin Concent 34 g/dL (31-37) Red Cell Distribution Width 15.6 % (11.5-14.5) Platelet Count 174 x10^3/uL (140-400) Neutrophils (%) (Auto) 66 % (31-73) Lymphocytes (%) (Auto) 19 % (24-48) Monocytes (%) (Auto) 13 % (0-9) Eosinophils (%) (Auto) 2 % (0-3) Basophils (%) (Auto) 0 % (0-3) Neutrophils # (Auto) 5.7 x10^3uL (1.8-7.7) Lymphocytes # (Auto) 1.6 x10^3/uL (1.0-4.8) Monocytes # (Auto) 1.1 x10^3/uL (0.0-1.1) Eosinophils # (Auto) 0.2 x10^3/uL (0.0-0.7) Basophils # (Auto) 0.0 x10^3/uL (0.0-0.2) Prothrombin Time 15.7 SEC (11.7-14.0) Prothromb Time International Ratio 1.3 (0.8-1.1) Activated Partial Thromboplast Time 36 SEC (24-38) Sodium Level 139 mmol/L (136-145) Potassium Level 4.0 mmol/L (3.5-5.1) Chloride Level 101 mmol/L (98-107) Carbon Dioxide Level 34 mmol/L (21-32) Anion Gap 4 (6-14) Blood Urea Nitrogen 25 mg/dL (8-26) Creatinine 5.0 mg/dL (0.7-1.3) Estimated GFR (Cockcroft-Gault) 12.2 BUN/Creatinine Ratio 5 (6-20) Glucose Level 105 mg/dL (70-99) Lactic Acid Level 3.7 mmol/L (0.4-2.0) 3.8 mmol/L (0.4-2.0) Calcium Level 8.6 mg/dL (8.5-10.1) Magnesium Level 1.7 mg/dL (1.8-2.4) Total Bilirubin 0.2 mg/dL (0.2-1.0) Aspartate Amino Transf (AST/SGOT) 42 U/L (15-37) Alanine Aminotransferase (ALT/SGPT) 6 U/L (16-63) Alkaline Phosphatase 117 U/L (46-116) Troponin I Quantitative 0.046 ng/mL (0.000-0.055) Total Protein 7.9 g/dL (6.4-8.2) Albumin 2.0 g/dL (3.4-5.0) Albumin/Globulin Ratio 0.3 (1.0-1.7) Stool Occult Blood Negative (NEG) O2 Saturation 86 % (92-99) Arterial Blood pH 7.50 (7.35-7.45) Arterial Blood pCO2 at Patient Temp 36 mmHg (35-46) Arterial Blood pO2 at Patient Temp 54 mmHg (75-108) Arterial Blood HCO3 28 mmol/L (21-28) Arterial Blood Base Excess 4 mmol/L (-3-3) FiO2 40 Test 08/06/18 08:21 08/06/18 09:37 O2 Saturation 95 % (92-99) Arterial Blood pH 7.47 (7.35-7.45) Arterial Blood pCO2 at Patient Temp 43 mmHg (35-46) Arterial Blood pO2 at Patient Temp 83 mmHg (75-108) Arterial Blood HCO3 31 mmol/L (21-28) Arterial Blood Base Excess 7 mmol/L (-3-3) FiO2 25 White Blood Count 7.0 x10^3/uL (4.0-11.0) Red Blood Count 2.35 x10^6/uL (4.30-5.70) Hemoglobin 6.8 g/dL (13.0-17.5) Hematocrit 19.6 % (39.0-53.0) Mean Corpuscular Volume 83 fL (79-100) Mean Corpuscular Hemoglobin 29 pg (25-35) Mean Corpuscular Hemoglobin Concent 35 g/dL (31-37) Red Cell Distribution Width 17.0 % (11.5-14.5) Platelet Count 120 x10^3/uL (140-400) Neutrophils (%) (Auto) 64 % (31-73) Lymphocytes (%) (Auto) 16 % (24-48) Monocytes (%) (Auto) 13 % (0-9) Eosinophils (%) (Auto) 6 % (0-3) Basophils (%) (Auto) 1 % (0-3) Neutrophils # (Auto) 4.5 x10^3uL (1.8-7.7) Lymphocytes # (Auto) 1.1 x10^3/uL (1.0-4.8) Monocytes # (Auto) 0.9 x10^3/uL (0.0-1.1) Eosinophils # (Auto) 0.4 x10^3/uL (0.0-0.7) Basophils # (Auto) 0.1 x10^3/uL (0.0-0.2) Sodium Level 144 mmol/L (136-145) Potassium Level 4.3 mmol/L (3.5-5.1) Chloride Level 104 mmol/L (98-107) Carbon Dioxide Level 33 mmol/L (21-32) Anion Gap 7 (6-14) Blood Urea Nitrogen 33 mg/dL (8-26) Creatinine 5.8 mg/dL (0.7-1.3) Estimated GFR (Cockcroft-Gault) 10.2 BUN/Creatinine Ratio 6 (6-20) Glucose Level 82 mg/dL (70-99) Lactic Acid Level 1.2 mmol/L (0.4-2.0) Calcium Level 8.3 mg/dL (8.5-10.1) Total Bilirubin 0.4 mg/dL (0.2-1.0) Aspartate Amino Transf (AST/SGOT) 38 U/L (15-37) Alanine Aminotransferase (ALT/SGPT) 8 U/L (16-63) Alkaline Phosphatase 98 U/L (46-116) Total Protein 6.6 g/dL (6.4-8.2) Albumin 1.7 g/dL (3.4-5.0) Albumin/Globulin Ratio 0.3 (1.0-1.7) Review All relevant outside records, renal labs, imaging studies, telemetry/EKG's were reviewed. Images Images CxR-- 1. Vascular congestion has improved slightly. 2. Worsening left lateral pulmonary infiltrate. 3. Residual pulmonary nodules. 4. Small bilateral pleural effusions CT 07/05/18-- 1. Numerous bilateral cavitary masses are seen throughout both lungs. Same differential as was already provided in the CT study of one day earlier of the abdomen, favoring septic emboli, but atypical infection or inflammatory etiology, as well as neoplastic and metastatic etiology are possible. 2. Pleural effusions are identified. There is also some loculated pleural fluid in the upper lobes and within the fissures, early empyema formation is possible. 3. Mild perihepatic ascites. MARIYA NORMAN MD Aug 06, 2018 11:42
[2018-08-06] MEDS: IPRATRPIUM/ALBUTEROL 0.5/2.5MG 3 ML NEBU. NEB SCH ×3 (11:44→19:55)
[2018-08-06] MEDS ORDERED: ACETAMINOPHEN 325 MG TABLET. PO PRN (12:30)
[2018-08-06] MEDS ORDERED: MORPHINE SULFATE 4 MG/ML VIAL. IV PRN (12:30)
[2018-08-06] MEDS ORDERED: DOCUSATE SODIUM 100 MG CAPSULE. PO PRN (12:30)
[2018-08-06] MEDS ORDERED: ALBUTEROL SULFATE 2.5 MG/3 ML NEBU. NEB PRN (12:30)
[2018-08-06] MEDS ORDERED: traMADol 50 MG TABLET PO PRN (12:30)
[2018-08-06] MEDS ORDERED: hydrALAZINE 20 MG/ML VIAL. IVP PRN (12:30)
[2018-08-06] MEDS ORDERED: ONDANSETRON PF 4 MG/2 ML VIAL. IV PRN (12:30)
--- NOTE | 2018-08-06 12:38 | PDOC1 ---
History and Physical Date of Admission Date of Admission 08/05/18 Identification/Chief Complaint Chief Complaint sob Source Source: Chart review History of Present Illness History of Present Illness Mr. Dowling is a 53 old M, on HD for ESRD TTH, came for sob. pt seen in ICU, on bipap, precedex. he is arousable, but lethargic and not able to answer questions or follow commands. Pt was dced on 07/14 for weakness, and multiple times of bacteremia with MSSA, and dced home with cefazolin on HD , supposed to cont for 6 weeks, not sure if pt is still on it since he cannot answer my questions. during that admission, his old HD cath was removed, suprapubic Martinez changed, left kidney stent removed and RADHA was neg. as per ERP, Patient is a dialysis patient and had 3 hours of dialysis yesterday which he reports was shorter than his typical 4 hours however whether did not allow him to have the full length. Patient states over the past several days he's had increased shortness of air which is worse with any exertion. Denies any chest pain, swelling, or palpitations. Patient denies cough, fever or chills, or N/V/D. patient reports he has had increased fatigue and weakness denies focal neuro deficits. Patient states the last time he felt this short of air his hemoglobin was low. Patient states he is O2 dependent at 2 L on home. required bipap overnight, and agitated so on precedex. CXR showed bl infiltrate with some possible effusion or fluid collection Past Medical History Cardiovascular: No pertinent hx Pulmonary: No pertinent hx GI: No pertinent hx Heme/Onc: No pertinent hx Hepatobiliary: No pertinent hx Psych: No pertinent hx Rheumatologic: No pertinent hx Infectious disease: No pertinent hx Renal/: No pertinent hx Endocrine: No pertinent hx Past Surgical History Past Surgical History Dialysis cath right chest, LEFT KIDNEY STENT, SUPRAPUBIC CATH Family History Family History: Coronary Artery Disease Social History Smoke: No ALCOHOL: none Drugs: None Current Problem List Problem List Problems Medical Problems: (1) Dyspnea Status: Acute (2) Pneumonia Status: Acute Current Medications Current Medications Current Medications Medications (Trade) Dose Ordered Sig/Kevin Start Time Stop Time Status Last Admin Dose Admin Acetaminophen (Tylenol) 650 mg PRN Q4HRS PRN 08/05/18 20:15 08/06/18 20:14 Albuterol/ Ipratropium (Duoneb) 3 ml RTQID 08/06/18 08:30 08/06/18 11:44 3 ML Atropine Sulfate (ATROPINE 0.5mg SYRINGE) 0.5 mg PRN Q5MIN PRN 08/05/18 23:30 Benzonatate (Tessalon Perle) 100 mg 1X ONCE 08/05/18 21:00 08/05/18 21:01 DC 08/05/18 20:42 100 MG Dexmedetomidine HCl 200 mcg/ Sodium Chloride 50 ml @ 0 mls/hr CONT PRN 08/05/18 23:30 08/06/18 06:20 7.75 MLS/HR Furosemide (Lasix) 80 mg 1X ONCE 08/05/18 23:00 08/05/18 23:02 DC 08/06/18 05:40 80 MG Info (CONTRAST GIVEN -- Rx MONITORING) 1 each PRN DAILY PRN 08/06/18 11:15 08/08/18 11:14 Iohexol (Omnipaque 350 Mg/ml) 85 ml 1X ONCE 08/06/18 11:00 08/06/18 11:01 DC 08/06/18 11:00 85 ML Lorazepam (Ativan) 2 mg PRN Q4HRS PRN 08/05/18 23:00 08/05/18 23:54 2 MG Magnesium Oxide (Magnesium Oxide) 400 mg DAILY 08/06/18 09:00 Piperacillin Sod/ Tazobactam Sod (Zosyn Per Pharmacy) 1 each PRN DAILY PRN 08/06/18 03:45 Piperacillin Sod/ Tazobactam Sod 2.25 gm/Sodium Chloride 50 ml @ 100 mls/hr Q8HRS 08/06/18 06:00 08/06/18 05:40 100 MLS/HR Piperacillin Sod/ Tazobactam Sod 3.375 gm/Sodium Chloride 50 ml @ 100 mls/hr 1X ONCE 08/05/18 21:00 08/05/18 21:29 DC 08/05/18 20:42 100 MLS/HR Risperidone (RisperDAL) 2 mg PRN Q12HRS PRN 08/05/18 23:00 08/05/18 23:53 2 MG Sodium Chloride 500 ml @ 500 mls/hr 1X PRN PRN 08/05/18 23:30 Throat Lozenges (Cepacol Sore Throat Lozenge) 1 breezy PRN Q2HRS PRN 08/05/18 20:30 Vancomycin HCl (Vanco Per Pharmacy) 1 each PRN DAILY PRN 08/06/18 04:00 08/06/18 05:57 1 EACH Vancomycin HCl (Vancomycin Trough Level) 1 each 1X ONCE 08/07/18 21:30 08/07/18 21:31 Vancomycin HCl 1.75 gm/Sodium Chloride 500 ml @ 250 mls/hr 1X ONCE 08/05/18 21:00 08/05/18 22:59 DC 08/05/18 21:21 250 MLS/HR Allergies Allergies Allergies Coded Allergies Type Severity Reaction Last Updated Verified No Known Drug Allergies 01/04/18 No ROS Review of System CONSTITUTIONAL: No fever or chills EYES: No recent changes SKIN: No rash or itching CARDIOVASCULAR: No chest pain, syncope, palpitations, or edema RESPIRATORY: No SOB or cough GASTROINTESTINAL: No nausea, vomiting or abdominal pain NEUROLOGICAL: No headaches or weakness ENDOCRINE: No cold or heat intolerance GENITOURINARY: No urgency or frequency of urination MUSCULOSKELETAL: No back pain or joint pain LYMPHATICS: No enlarged lymph nodes PSYCHIATRIC: No anxiety or depression Physical Exam Physical Exam GEN.: No apparent distress. lethargic on precedex. HEENT: Head is normocephalic, atraumatic NECK: Supple. LUNGS: bl coarse bs. HEART: RRR, S1, S2 present. Peripheral pulses intact ABDOMEN: Soft, nontender. Positive bowel sounds. EXTREMITIES: Without any cyanosis. SKIN: No ulcerations Vitals Vitals Vital Signs Date Time Temp Pulse Resp B/P (MAP) Pulse Ox O2 Delivery O2 Flow Rate FiO2 08/06/18 12:17 102 22 127/74 (91) 97 Nasal Cannula 1.5 08/06/18 11:00 97.6 97.6 Labs Labs Laboratory Tests Test 08/05/18 18:00 08/05/18 18:30 08/05/18 21:07 08/05/18 22:10 White Blood Count 8.6 x10^3/uL (4.0-11.0) Red Blood Count 1.89 x10^6/uL (4.30-5.70) Hemoglobin 5.5 g/dL (13.0-17.5) Hematocrit 16.4 % (39.0-53.0) Mean Corpuscular Volume 87 fL (79-100) Mean Corpuscular Hemoglobin 29 pg (25-35) Mean Corpuscular Hemoglobin Concent 34 g/dL (31-37) Red Cell Distribution Width 15.6 % (11.5-14.5) Platelet Count 174 x10^3/uL (140-400) Neutrophils (%) (Auto) 66 % (31-73) Lymphocytes (%) (Auto) 19 % (24-48) Monocytes (%) (Auto) 13 % (0-9) Eosinophils (%) (Auto) 2 % (0-3) Basophils (%) (Auto) 0 % (0-3) Neutrophils # (Auto) 5.7 x10^3uL (1.8-7.7) Lymphocytes # (Auto) 1.6 x10^3/uL (1.0-4.8) Monocytes # (Auto) 1.1 x10^3/uL (0.0-1.1) Eosinophils # (Auto) 0.2 x10^3/uL (0.0-0.7) Basophils # (Auto) 0.0 x10^3/uL (0.0-0.2) Prothrombin Time 15.7 SEC (11.7-14.0) Prothromb Time International Ratio 1.3 (0.8-1.1) Activated Partial Thromboplast Time 36 SEC (24-38) Sodium Level 139 mmol/L (136-145) Potassium Level 4.0 mmol/L (3.5-5.1) Chloride Level 101 mmol/L (98-107) Carbon Dioxide Level 34 mmol/L (21-32) Anion Gap 4 (6-14) Blood Urea Nitrogen 25 mg/dL (8-26) Creatinine 5.0 mg/dL (0.7-1.3) Estimated GFR (Cockcroft-Gault) 12.2 BUN/Creatinine Ratio 5 (6-20) Glucose Level 105 mg/dL (70-99) Lactic Acid Level 3.7 mmol/L (0.4-2.0) 3.8 mmol/L (0.4-2.0) Calcium Level 8.6 mg/dL (8.5-10.1) Magnesium Level 1.7 mg/dL (1.8-2.4) Total Bilirubin 0.2 mg/dL (0.2-1.0) Aspartate Amino Transf (AST/SGOT) 42 U/L (15-37) Alanine Aminotransferase (ALT/SGPT) 6 U/L (16-63) Alkaline Phosphatase 117 U/L (46-116) Troponin I Quantitative 0.046 ng/mL (0.000-0.055) Total Protein 7.9 g/dL (6.4-8.2) Albumin 2.0 g/dL (3.4-5.0) Albumin/Globulin Ratio 0.3 (1.0-1.7) Stool Occult Blood Negative (NEG) O2 Saturation 86 % (92-99) Arterial Blood pH 7.50 (7.35-7.45) Arterial Blood pCO2 at Patient Temp 36 mmHg (35-46) Arterial Blood pO2 at Patient Temp 54 mmHg (75-108) Arterial Blood HCO3 28 mmol/L (21-28) Arterial Blood Base Excess 4 mmol/L (-3-3) FiO2 40 Test 08/06/18 08:21 08/06/18 09:37 O2 Saturation 95 % (92-99) Arterial Blood pH 7.47 (7.35-7.45) Arterial Blood pCO2 at Patient Temp 43 mmHg (35-46) Arterial Blood pO2 at Patient Temp 83 mmHg (75-108) Arterial Blood HCO3 31 mmol/L (21-28) Arterial Blood Base Excess 7 mmol/L (-3-3) FiO2 25 White Blood Count 7.0 x10^3/uL (4.0-11.0) Red Blood Count 2.35 x10^6/uL (4.30-5.70) Hemoglobin 6.8 g/dL (13.0-17.5) Hematocrit 19.6 % (39.0-53.0) Mean Corpuscular Volume 83 fL (79-100) Mean Corpuscular Hemoglobin 29 pg (25-35) Mean Corpuscular Hemoglobin Concent 35 g/dL (31-37) Red Cell Distribution Width 17.0 % (11.5-14.5) Platelet Count 120 x10^3/uL (140-400) Neutrophils (%) (Auto) 64 % (31-73) Lymphocytes (%) (Auto) 16 % (24-48) Monocytes (%) (Auto) 13 % (0-9) Eosinophils (%) (Auto) 6 % (0-3) Basophils (%) (Auto) 1 % (0-3) Neutrophils # (Auto) 4.5 x10^3uL (1.8-7.7) Lymphocytes # (Auto) 1.1 x10^3/uL (1.0-4.8) Monocytes # (Auto) 0.9 x10^3/uL (0.0-1.1) Eosinophils # (Auto) 0.4 x10^3/uL (0.0-0.7) Basophils # (Auto) 0.1 x10^3/uL (0.0-0.2) Sodium Level 144 mmol/L (136-145) Potassium Level 4.3 mmol/L (3.5-5.1) Chloride Level 104 mmol/L (98-107) Carbon Dioxide Level 33 mmol/L (21-32) Anion Gap 7 (6-14) Blood Urea Nitrogen 33 mg/dL (8-26) Creatinine 5.8 mg/dL (0.7-1.3) Estimated GFR (Cockcroft-Gault) 10.2 BUN/Creatinine Ratio 6 (6-20) Glucose Level 82 mg/dL (70-99) Lactic Acid Level 1.2 mmol/L (0.4-2.0) Calcium Level 8.3 mg/dL (8.5-10.1) Total Bilirubin 0.4 mg/dL (0.2-1.0) Aspartate Amino Transf (AST/SGOT) 38 U/L (15-37) Alanine Aminotransferase (ALT/SGPT) 8 U/L (16-63) Alkaline Phosphatase 98 U/L (46-116) Total Protein 6.6 g/dL (6.4-8.2) Albumin 1.7 g/dL (3.4-5.0) Albumin/Globulin Ratio 0.3 (1.0-1.7) Laboratory Tests Test 08/05/18 18:00 08/05/18 18:30 08/05/18 21:07 08/05/18 22:10 White Blood Count 8.6 x10^3/uL (4.0-11.0) Red Blood Count 1.89 x10^6/uL (4.30-5.70) Hemoglobin 5.5 g/dL (13.0-17.5) Hematocrit 16.4 % (39.0-53.0) Mean Corpuscular Volume 87 fL (79-100) Mean Corpuscular Hemoglobin 29 pg (25-35) Mean Corpuscular Hemoglobin Concent 34 g/dL (31-37) Red Cell Distribution Width 15.6 % (11.5-14.5) Platelet Count 174 x10^3/uL (140-400) Neutrophils (%) (Auto) 66 % (31-73) Lymphocytes (%) (Auto) 19 % (24-48) Monocytes (%) (Auto) 13 % (0-9) Eosinophils (%) (Auto) 2 % (0-3) Basophils (%) (Auto) 0 % (0-3) Neutrophils # (Auto) 5.7 x10^3uL (1.8-7.7) Lymphocytes # (Auto) 1.6 x10^3/uL (1.0-4.8) Monocytes # (Auto) 1.1 x10^3/uL (0.0-1.1) Eosinophils # (Auto) 0.2 x10^3/uL (0.0-0.7) Basophils # (Auto) 0.0 x10^3/uL (0.0-0.2) Prothrombin Time 15.7 SEC (11.7-14.0) Prothromb Time International Ratio 1.3 (0.8-1.1) Activated Partial Thromboplast Time 36 SEC (24-38) Sodium Level 139 mmol/L (136-145) Potassium Level 4.0 mmol/L (3.5-5.1) Chloride Level 101 mmol/L (98-107) Carbon Dioxide Level 34 mmol/L (21-32) Anion Gap 4 (6-14) Blood Urea Nitrogen 25 mg/dL (8-26) Creatinine 5.0 mg/dL (0.7-1.3) Estimated GFR (Cockcroft-Gault) 12.2 BUN/Creatinine Ratio 5 (6-20) Glucose Level 105 mg/dL (70-99) Lactic Acid Level 3.7 mmol/L (0.4-2.0) 3.8 mmol/L (0.4-2.0) Calcium Level 8.6 mg/dL (8.5-10.1) Magnesium Level 1.7 mg/dL (1.8-2.4) Total Bilirubin 0.2 mg/dL (0.2-1.0) Aspartate Amino Transf (AST/SGOT) 42 U/L (15-37) Alanine Aminotransferase (ALT/SGPT) 6 U/L (16-63) Alkaline Phosphatase 117 U/L (46-116) Troponin I Quantitative 0.046 ng/mL (0.000-0.055) Total Protein 7.9 g/dL (6.4-8.2) Albumin 2.0 g/dL (3.4-5.0) Albumin/Globulin Ratio 0.3 (1.0-1.7) Stool Occult Blood Negative (NEG) O2 Saturation 86 % (92-99) Arterial Blood pH 7.50 (7.35-7.45) Arterial Blood pCO2 at Patient Temp 36 mmHg (35-46) Arterial Blood pO2 at Patient Temp 54 mmHg (75-108) Arterial Blood HCO3 28 mmol/L (21-28) Arterial Blood Base Excess 4 mmol/L (-3-3) FiO2 40 Test 08/06/18 08:21 08/06/18 09:37 O2 Saturation 95 % (92-99) Arterial Blood pH 7.47 (7.35-7.45) Arterial Blood pCO2 at Patient Temp 43 mmHg (35-46) Arterial Blood pO2 at Patient Temp 83 mmHg (75-108) Arterial Blood HCO3 31 mmol/L (21-28) Arterial Blood Base Excess 7 mmol/L (-3-3) FiO2 25 White Blood Count 7.0 x10^3/uL (4.0-11.0) Red Blood Count 2.35 x10^6/uL (4.30-5.70) Hemoglobin 6.8 g/dL (13.0-17.5) Hematocrit 19.6 % (39.0-53.0) Mean Corpuscular Volume 83 fL (79-100) Mean Corpuscular Hemoglobin 29 pg (25-35) Mean Corpuscular Hemoglobin Concent 35 g/dL (31-37) Red Cell Distribution Width 17.0 % (11.5-14.5) Platelet Count 120 x10^3/uL (140-400) Neutrophils (%) (Auto) 64 % (31-73) Lymphocytes (%) (Auto) 16 % (24-48) Monocytes (%) (Auto) 13 % (0-9) Eosinophils (%) (Auto) 6 % (0-3) Basophils (%) (Auto) 1 % (0-3) Neutrophils # (Auto) 4.5 x10^3uL (1.8-7.7) Lymphocytes # (Auto) 1.1 x10^3/uL (1.0-4.8) Monocytes # (Auto) 0.9 x10^3/uL (0.0-1.1) Eosinophils # (Auto) 0.4 x10^3/uL (0.0-0.7) Basophils # (Auto) 0.1 x10^3/uL (0.0-0.2) Sodium Level 144 mmol/L (136-145) Potassium Level 4.3 mmol/L (3.5-5.1) Chloride Level 104 mmol/L (98-107) Carbon Dioxide Level 33 mmol/L (21-32) Anion Gap 7 (6-14) Blood Urea Nitrogen 33 mg/dL (8-26) Creatinine 5.8 mg/dL (0.7-1.3) Estimated GFR (Cockcroft-Gault) 10.2 BUN/Creatinine Ratio 6 (6-20) Glucose Level 82 mg/dL (70-99) Lactic Acid Level 1.2 mmol/L (0.4-2.0) Calcium Level 8.3 mg/dL (8.5-10.1) Total Bilirubin 0.4 mg/dL (0.2-1.0) Aspartate Amino Transf (AST/SGOT) 38 U/L (15-37) Alanine Aminotransferase (ALT/SGPT) 8 U/L (16-63) Alkaline Phosphatase 98 U/L (46-116) Total Protein 6.6 g/dL (6.4-8.2) Albumin 1.7 g/dL (3.4-5.0) Albumin/Globulin Ratio 0.3 (1.0-1.7) VTE Prophylaxis Ordered VTE Prophylaxis Devices: Yes VTE Pharmacological Prophylaxi: Yes Assessment/Plan Assessment/Plan acute on chronic resp failure with HAP ESRD on HD h/o Infected PD catheter, changed 07/[address] abdomen with bilateral cavitary nodular densities. Radiographic findings are highly suspicious for septic emboli and the source could be infected hemodialysis catheter. recent Staphylococcus bacteremia with persistent positive blood cultures with MSSA history of tobacco use. 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 fu bcx taper bipap, NC as needed. CTA as per pulm dvt ppx PTOT 3U prbc TRANSFusion cont HD tts DEIDRA ADKINS MD Aug 06, 2018 12:38
--- NOTE | 2018-08-06 12:53 | RAD ---
CTA of the chest with contrast, 08/06/2018: HISTORY: Respiratory failure, hypoxia Multidetector CT imaging was performed following an IV bolus injection of iodinated contrast material. Multiplanar reconstructions were produced including coronal and sagittal MIP images. Comparison is made to a study from 07/05/2018. The main and lobar pulmonary arteries are unremarkable. There is a small filling defect in a segmental pulmonary artery in the anterior aspect of the left lower lobe extending into a subsegmental branch, as best seen on image 81 of series #3. There is a probable tiny nonocclusive filling defect in a subsegmental pulmonary artery in the right lower lobe as seen on image 97 of series #3. The pulmonary arteries are otherwise unremarkable. There is aortic calcific plaquing without evidence of aneurysm. Minimal coronary artery calcifications are noted. Subcarinal and bilateral hilar lymphoid tissue is mildly prominent. On the previous study there were multiple cavitary nodules in both lungs. These nodules have generally decreased in size. The majority of these nodules no longer demonstrate internal gas collections. There are scattered groundglass opacities with interlobular septal thickening in both lungs. This has worsened in some areas, best seen in the right lower lobe. There is a moderate volume of left-sided pleural fluid and a smaller volume of right-sided pleural fluid. Fissural extensions of the pleural fluid are producing the lateral midlung opacities seen bilaterally on the current chest radiograph. The overall size of these pleural effusions is similar to that seen on the previous study, although their distribution has changed somewhat. Ascites is noted in the upper abdomen. IMPRESSION: 1. Small segmental pulmonary embolus in the left lower lobe. 2. Questionable small subsegmental pulmonary embolus in the right lower lobe. 3. Ongoing moderate sized left pleural effusion and small right pleural effusion with fissural extensions. 4. Bilateral cavitary pulmonary nodules have regressed since 07/05/2018. 5. Patchy groundglass and interstitial opacities in both lungs with interval worsening in the right lower lobe. The findings may reflect pulmonary edema or infection. 6. Ongoing mild ascites. Note: The findings were called to the patient's nurse in the ICU at 12:47 PM on 08/06/2018. PQRS Compliance Statement: One or more of the following individualized dose reduction techniques were utilized for this examination: 1. Automated exposure control 2. Adjustment of the mA and/or kV according to patient size 3. Use of iterative reconstruction technique Electronically signed by: Jt Reyes MD (08/06/2018 12:49 PM) [facility]
[2018-08-06] MEDS ORDERED: ANTI-COAG MONITOR BY PHARMACY. MC PRN (13:30)
[2018-08-06] MEDS ORDERED: HEPARIN 25,000UTS/500ML PREMIX 500 ML IV PRN (13:30)
[2018-08-06] MEDS ORDERED: HEPARIN for SUB-Q USE 5,000 UNIT/ML VIAL. SQ SCH (14:00)
[2018-08-06] MEDS ORDERED: HEPARIN for IV BOLUS 10,000 UNIT/10 ML VIAL. IV PRN ×2 (14:00)
--- NOTE | 2018-08-06 14:13 | PDOC ---
Infectious Disease Note Vital Sign Vital Signs Vital Signs Date Time Temp Pulse Resp B/P (MAP) Pulse Ox O2 Delivery O2 Flow Rate FiO2 08/06/18 12:17 102 22 127/74 (91) 97 Nasal Cannula 1.5 08/06/18 11:00 97.6 97.6 Labs Lab Laboratory Tests Test 08/05/18 18:00 08/05/18 18:30 08/05/18 21:07 08/05/18 22:10 White Blood Count 8.6 x10^3/uL (4.0-11.0) Red Blood Count 1.89 x10^6/uL (4.30-5.70) Hemoglobin 5.5 g/dL (13.0-17.5) Hematocrit 16.4 % (39.0-53.0) Mean Corpuscular Volume 87 fL (79-100) Mean Corpuscular Hemoglobin 29 pg (25-35) Mean Corpuscular Hemoglobin Concent 34 g/dL (31-37) Red Cell Distribution Width 15.6 % (11.5-14.5) Platelet Count 174 x10^3/uL (140-400) Neutrophils (%) (Auto) 66 % (31-73) Lymphocytes (%) (Auto) 19 % (24-48) Monocytes (%) (Auto) 13 % (0-9) Eosinophils (%) (Auto) 2 % (0-3) Basophils (%) (Auto) 0 % (0-3) Neutrophils # (Auto) 5.7 x10^3uL (1.8-7.7) Lymphocytes # (Auto) 1.6 x10^3/uL (1.0-4.8) Monocytes # (Auto) 1.1 x10^3/uL (0.0-1.1) Eosinophils # (Auto) 0.2 x10^3/uL (0.0-0.7) Basophils # (Auto) 0.0 x10^3/uL (0.0-0.2) Prothrombin Time 15.7 SEC (11.7-14.0) Prothromb Time International Ratio 1.3 (0.8-1.1) Activated Partial Thromboplast Time 36 SEC (24-38) Sodium Level 139 mmol/L (136-145) Potassium Level 4.0 mmol/L (3.5-5.1) Chloride Level 101 mmol/L (98-107) Carbon Dioxide Level 34 mmol/L (21-32) Anion Gap 4 (6-14) Blood Urea Nitrogen 25 mg/dL (8-26) Creatinine 5.0 mg/dL (0.7-1.3) Estimated GFR (Cockcroft-Gault) 12.2 BUN/Creatinine Ratio 5 (6-20) Glucose Level 105 mg/dL (70-99) Lactic Acid Level 3.7 mmol/L (0.4-2.0) 3.8 mmol/L (0.4-2.0) Calcium Level 8.6 mg/dL (8.5-10.1) Magnesium Level 1.7 mg/dL (1.8-2.4) Total Bilirubin 0.2 mg/dL (0.2-1.0) Aspartate Amino Transf (AST/SGOT) 42 U/L (15-37) Alanine Aminotransferase (ALT/SGPT) 6 U/L (16-63) Alkaline Phosphatase 117 U/L (46-116) Troponin I Quantitative 0.046 ng/mL (0.000-0.055) Total Protein 7.9 g/dL (6.4-8.2) Albumin 2.0 g/dL (3.4-5.0) Albumin/Globulin Ratio 0.3 (1.0-1.7) Stool Occult Blood Negative (NEG) O2 Saturation 86 % (92-99) Arterial Blood pH 7.50 (7.35-7.45) Arterial Blood pCO2 at Patient Temp 36 mmHg (35-46) Arterial Blood pO2 at Patient Temp 54 mmHg (75-108) Arterial Blood HCO3 28 mmol/L (21-28) Arterial Blood Base Excess 4 mmol/L (-3-3) FiO2 40 Test 08/06/18 08:21 08/06/18 09:37 O2 Saturation 95 % (92-99) Arterial Blood pH 7.47 (7.35-7.45) Arterial Blood pCO2 at Patient Temp 43 mmHg (35-46) Arterial Blood pO2 at Patient Temp 83 mmHg (75-108) Arterial Blood HCO3 31 mmol/L (21-28) Arterial Blood Base Excess 7 mmol/L (-3-3) FiO2 25 White Blood Count 7.0 x10^3/uL (4.0-11.0) Red Blood Count 2.35 x10^6/uL (4.30-5.70) Hemoglobin 6.8 g/dL (13.0-17.5) Hematocrit 19.6 % (39.0-53.0) Mean Corpuscular Volume 83 fL (79-100) Mean Corpuscular Hemoglobin 29 pg (25-35) Mean Corpuscular Hemoglobin Concent 35 g/dL (31-37) Red Cell Distribution Width 17.0 % (11.5-14.5) Platelet Count 120 x10^3/uL (140-400) Neutrophils (%) (Auto) 64 % (31-73) Lymphocytes (%) (Auto) 16 % (24-48) Monocytes (%) (Auto) 13 % (0-9) Eosinophils (%) (Auto) 6 % (0-3) Basophils (%) (Auto) 1 % (0-3) Neutrophils # (Auto) 4.5 x10^3uL (1.8-7.7) Lymphocytes # (Auto) 1.1 x10^3/uL (1.0-4.8) Monocytes # (Auto) 0.9 x10^3/uL (0.0-1.1) Eosinophils # (Auto) 0.4 x10^3/uL (0.0-0.7) Basophils # (Auto) 0.1 x10^3/uL (0.0-0.2) Sodium Level 144 mmol/L (136-145) Potassium Level 4.3 mmol/L (3.5-5.1) Chloride Level 104 mmol/L (98-107) Carbon Dioxide Level 33 mmol/L (21-32) Anion Gap 7 (6-14) Blood Urea Nitrogen 33 mg/dL (8-26) Creatinine 5.8 mg/dL (0.7-1.3) Estimated GFR (Cockcroft-Gault) 10.2 BUN/Creatinine Ratio 6 (6-20) Glucose Level 82 mg/dL (70-99) Lactic Acid Level 1.2 mmol/L (0.4-2.0) Calcium Level 8.3 mg/dL (8.5-10.1) Total Bilirubin 0.4 mg/dL (0.2-1.0) Aspartate Amino Transf (AST/SGOT) 38 U/L (15-37) Alanine Aminotransferase (ALT/SGPT) 8 U/L (16-63) Alkaline Phosphatase 98 U/L (46-116) Total Protein 6.6 g/dL (6.4-8.2) Albumin 1.7 g/dL (3.4-5.0) Albumin/Globulin Ratio 0.3 (1.0-1.7) Objective Assessment Lactic acidosis Respiratory failure COPD CHF/Pulmonary infiltrate ESRD Plan Plan of Care vanc and zosyn check cultures supportive care CHAPIN VALERIO MD Aug 06, 2018 14:13
[2018-08-06] MEDS: MAGNESIUM OXIDE 400 MG TABLET PO SCH (14:40)
[2018-08-06] MEDS ORDERED: HEPARIN for IV BOLUS 10,000 UNIT/10 ML VIAL. IV ONE (14:45)
[2018-08-06] MEDS ORDERED: IV NORMAL SALINE 1000ML BAG 1,000 ML IV PRN ×2 (16:04)
[2018-08-06] MEDS ORDERED: DIALYSIS PATIENT. MC PRN (16:15)
--- NOTE | 2018-08-06 18:07 | CONS ---
DATE OF CONSULTATION: 08/06/2018 REFERRING PHYSICIAN: Dr. Jaimes. REASON FOR CONSULTATION: Lactic acidosis, and pneumonia. HISTORY OF PRESENT ILLNESS: This is a 53-year-old gentleman who came in with shortness of breath. The patient had significant fatigue and no energy and shortness of breath. The patient was found to have hemoglobin of 5.5. The patient subsequently developed respiratory failure, required BiPAP support. The patient had CHF versus pneumonia, also lactic acidosis. The patient was given vancomycin and Zosyn and consult has been requested. The patient has actually stabilized. The patient is much more better, breathing better he says. He does use oxygen at home and he is almost back to normal. Denies any nausea, vomiting, diarrhea. Denies any chest pain, shortness of breath, abdominal pain, urinary symptoms or bowel symptoms. PAST MEDICAL HISTORY: Positive for end-stage renal disease, on hemodialysis; COPD; hypertension; bilateral cavitary pneumonia in the past with history of Staph and severe anemia. SOCIAL HISTORY: Positive for smoking. No alcohol use or drug use. ALLERGIES: No known drug allergies. CURRENT MEDICATIONS: Reviewed. REVIEW OF SYSTEMS: As per HPI, all other systems reviewed and negative. PHYSICAL EXAMINATION: GENERAL: Alert and oriented gentleman, not in distress. VITAL SIGNS: Stable, afebrile. HEENT: NAD. NECK: Supple, no JVP, no lymphadenopathy. LUNGS: Clear. HEART: S1, S2 regular. ABDOMEN: Benign. EXTREMITIES: No edema, cyanosis. SKIN: Unremarkable. NEUROLOGICAL: The patient is neurologically intact. LABORATORY DATA: White count is 7.0, hemoglobin 6.8. BUN and creatinine are 33 and 5.8. His last blood culture positive was 07/06/2018 with MSSA. He did have a negative blood culture on 07/08/2018. The patient probably should be supposed to be on cefazolin through dialysis still. I am not sure whether he is still getting it or not and he was on linezolid p.o. IMPRESSION: 1. Lactic acidosis. 2. Respiratory failure. 3. Congestive heart failure, possible respiratory infection. 4. Chronic obstructive pulmonary disease. 5. End-stage renal disease, on hemodialysis. RECOMMENDATIONS: I would continue vancomycin and Zosyn for the time being. Soon we will discuss with Nephrology to find out whether he is still on cefazolin or not, which he is supposed to be. Supportive care. We will check the cultures and continue to follow. Thank you very much, Dr. Jaimes, for giving me the opportunity to participate in this patient's care. CHAPIN VALERIO MD DR: SABINA/macey JOB#: [id number] / [id number]
--- NOTE | 2018-08-06 18:40 | RAD ---
Bilateral lower extremity venous duplex study 08/06/2018 Clinical History: Pulmonary emboli. Technique: Using a combination of real time ultrasound imaging and color-flow and pulse Doppler imaging techniques along with graded compression and augmentation, duplex evaluation of the deep venous system of the both lower extremities was performed. Multiple images were obtained. Findings: There is no sonographic evidence of deep venous thrombosis involving the visualized deep venous structures of either lower extremity. Impression: Negative study. Electronically signed by: Isreal Ko MD (08/06/2018 6:36 PM) [id number]
--- NOTE | 2018-08-06 20:17 | RAD ---
CT ABDOMEN PELVIS WO CONTRAST Indication: anemia; eval for hematoma; ext. [id number] ICU-room 104 Exposure: One or more of the following individualized dose reduction techniques were utilized for this examination: 1. Automated exposure control 2. Adjustment of the mA and/or kV according to patient size 3. Use of iterative reconstruction technique. Comparison: July 04, 2018 Contrast: No intravenous contrast given. No oral contrast per request. Evaluation of solid viscera, bowel and vasculature is compromised by the noncontrast technique. Lower thorax: The previously seen cavitary lesions are no longer apparent. There are scattered nodular densities, measuring up to 1 cm in size may represent sequela of these previously seen cavitary lesions. A left moderate-sized pleural effusion or pleural fluid collection is identified. This demonstrates mild irregular thickening of the pleural margins, suggesting an empyema. There is a small right pleural effusion. There is also some fluid accumulation posterior to the left heart may also represent empyema. Coronary artery calcifications. Liver: Unremarkable Spleen: Unremarkable Pancreas: Unremarkable Adrenals: No evidence of mass. Kidneys: Contrast media within the collecting systems, presumably from recent contrast injection. Mild hydronephrosis. Mild stranding in the perinephric fat, also seen previously. Gallbladder: Contracted, no definite calcified gallstone. Aorta: Calcified, no aneurysm. Lymph nodes: No significant enlargement GI tract: No evidence of bowel obstruction. Moderate to severe retained stool in the colon, greatest in the distal sigmoid and rectum. No evidence of definite colonic wall thickening. Appendix is not clearly visualized. Reproductive organs:No evidence of mass. Urinary bladder: Collapsed around a percutaneous catheter Peritoneum: There is mild to moderate abdominal and pelvic fluid. This measures greater than simple fluid density, up to 40 Hounsfield units, suggesting hemorrhagic content. Abdominal wall: Unremarkable Spine: Mild degenerative change. Bones: No destructive process identified. External Soft Tissue: No acute findings. IMPRESSION: 1. Moderate free fluid in the abdomen and pelvis, with hyperdense appearance, compatible with hemoperitoneum. Source of hemorrhage is uncertain on this exam. 2. Moderate to severe constipation particularly at the distal sigmoid colon and rectum. 3. Left irregular pleural fluid collection with pleural thickening, suggesting empyema. 4. Right pleural effusion. 5. Small pulmonary nodules up to 1 cm, may represent sequela of the previously seen cavitary lesions. FOR INTERNAL CODING PURPOSES Critical result: Findings discussed with ICU nurse Kendal at 08/06/2018 8:13 PM. RESULT CODE: (C) Electronically signed by: Manny Ruiz MD (08/06/2018 8:13 PM) [facility]
[2018-08-07] VITALS (19 sets, daily range): BP systolic 131–160; BP diastolic 72–86
--- NOTE | 2018-08-07 00:28 | PN ---
DATE: ADDENDUM Earlier in the day, I had ordered a CT angiogram to rule out pulmonary embolism as well as to better assess for previous cavitary pulmonary nodules and loculated pleural effusion. The patient was found to have a small pulmonary embolism involving the left lower lobe. At that time, he was placed on full-dose heparin protocol. Patient was also anemic and after 2 units of packed RBCs, his hemoglobin only increased in the mid-6 range. At that time, there was no obvious source of his anemia, as there was no upper or lower GI bleeding. I had ordered venous Dopplers of lower extremities, which came back as negative for DVT. I also ordered CT abdomen and pelvis to look for source for anemia and the report was reviewed and it showed there was a moderate amount of hemoperitoneum. There was no At that time, I spoke to the RN. The risk of continuing full-dose heparin for small PE outweighs the benefits. As a result, heparin was discontinued and GI and General Surgery have been consulted. We will follow the patient clinically. At this point, he would not benefit from IVC filter as there is no evidence of DVT. RUDI DAVALOS MD DR: RAUDEL/macey JOB#: [id number] / [id number] RIDDHI
[2018-08-07 04:46] LABS: BASO # 0.1 x10^3/uL (0.0-0.2); BASO % 1 % (0-3); EOS # 0.8 x10^3/uL (0.0-0.7); EOS % 8 % (0-3); HEMATOCRIT 26.6 % (39.0-53.0); HEMOGLOBIN 9.3 g/dL (13.0-17.5); LYMPH # 1.5 x10^3/uL (1.0-4.8); LYMPH % 16 % (24-48); MEAN CORPUSCULAR HEMOGLOBIN 29 pg (25-35); MEAN CORPUSCULAR HGB CONC 35 g/dL (31-37); MEAN CORPUSCULAR VOLUME 83 fL (79-100); MONO # 1.3 x10^3/uL (0.0-1.1); MONO % 14 % (0-9); NEUT # 5.7 x10^3uL (1.8-7.7); NEUT % 61 % (31-73); PLATELET COUNT 114 x10^3/uL (140-400); RED BLOOD COUNT 3.19 x10^6/uL (4.30-5.70); RED CELL DISTRIBUTION WIDTH 16.9 % (11.5-14.5); WHITE BLOOD COUNT 9.3 x10^3/uL (4.0-11.0)
[2018-08-07] MEDS ORDERED: VANCOMYCIN RANDOM LEVEL. MC ONE (05:00)
[2018-08-07 05:35] LABS: CALCIUM 8.2 mg/dL (8.5-10.1); CREATININE 6.7 mg/dL (0.7-1.3); GFR 8.7; POTASSIUM 4.1 mmol/L (3.5-5.1)
[2018-08-07] MEDS: PIPERACILLIN/TAZOBACTAM 2.25 GM in IV NORMAL SALINE 50ML 50 ML IV SCH ×3 (06:09→21:16)
--- NOTE | 2018-08-07 07:48 | PDOC ---
Infectious Disease Note Subjective Subjective pt is feeling better ROS ROS no n/v/d/sob Vital Sign Vital Signs Vital Signs Date Time Temp Pulse Resp B/P (MAP) Pulse Ox O2 Delivery O2 Flow Rate FiO2 08/07/18 07:00 98.4 115 22 140/80 (100) 94 Nasal Cannula 2.0 98.4 Physical Exam PHYSICAL EXAM GENERAL: Alert and oriented gentleman, not in distress. VITAL SIGNS: Stable, afebrile. HEENT: NAD. NECK: Supple, no JVP, no lymphadenopathy. LUNGS: Clear. HEART: S1, S2 regular. ABDOMEN: Benign. EXTREMITIES: No edema, cyanosis. SKIN: Unremarkable. NEUROLOGICAL: The patient is neurologically intact. Labs Lab Laboratory Tests Test 08/06/18 08:21 08/06/18 09:37 08/07/18 04:25 O2 Saturation 95 % (92-99) Arterial Blood pH 7.47 (7.35-7.45) Arterial Blood pCO2 at Patient Temp 43 mmHg (35-46) Arterial Blood pO2 at Patient Temp 83 mmHg (75-108) Arterial Blood HCO3 31 mmol/L (21-28) Arterial Blood Base Excess 7 mmol/L (-3-3) FiO2 25 White Blood Count 7.0 x10^3/uL (4.0-11.0) 9.3 x10^3/uL (4.0-11.0) Red Blood Count 2.35 x10^6/uL (4.30-5.70) 3.19 x10^6/uL (4.30-5.70) Hemoglobin 6.8 g/dL (13.0-17.5) 9.3 g/dL (13.0-17.5) Hematocrit 19.6 % (39.0-53.0) 26.6 % (39.0-53.0) Mean Corpuscular Volume 83 fL (79-100) 83 fL (79-100) Mean Corpuscular Hemoglobin 29 pg (25-35) 29 pg (25-35) Mean Corpuscular Hemoglobin Concent 35 g/dL (31-37) 35 g/dL (31-37) Red Cell Distribution Width 17.0 % (11.5-14.5) 16.9 % (11.5-14.5) Platelet Count 120 x10^3/uL (140-400) 114 x10^3/uL (140-400) Neutrophils (%) (Auto) 64 % (31-73) 61 % (31-73) Lymphocytes (%) (Auto) 16 % (24-48) 16 % (24-48) Monocytes (%) (Auto) 13 % (0-9) 14 % (0-9) Eosinophils (%) (Auto) 6 % (0-3) 8 % (0-3) Basophils (%) (Auto) 1 % (0-3) 1 % (0-3) Neutrophils # (Auto) 4.5 x10^3uL (1.8-7.7) 5.7 x10^3uL (1.8-7.7) Lymphocytes # (Auto) 1.1 x10^3/uL (1.0-4.8) 1.5 x10^3/uL (1.0-4.8) Monocytes # (Auto) 0.9 x10^3/uL (0.0-1.1) 1.3 x10^3/uL (0.0-1.1) Eosinophils # (Auto) 0.4 x10^3/uL (0.0-0.7) 0.8 x10^3/uL (0.0-0.7) Basophils # (Auto) 0.1 x10^3/uL (0.0-0.2) 0.1 x10^3/uL (0.0-0.2) Sodium Level 144 mmol/L (136-145) 142 mmol/L (136-145) Potassium Level 4.3 mmol/L (3.5-5.1) 4.1 mmol/L (3.5-5.1) Chloride Level 104 mmol/L (98-107) 103 mmol/L (98-107) Carbon Dioxide Level 33 mmol/L (21-32) 30 mmol/L (21-32) Anion Gap 7 (6-14) 9 (6-14) Blood Urea Nitrogen 33 mg/dL (8-26) 44 mg/dL (8-26) Creatinine 5.8 mg/dL (0.7-1.3) 6.7 mg/dL (0.7-1.3) Estimated GFR (Cockcroft-Gault) 10.2 8.7 BUN/Creatinine Ratio 6 (6-20) Glucose Level 82 mg/dL (70-99) 97 mg/dL (70-99) Lactic Acid Level 1.2 mmol/L (0.4-2.0) Calcium Level 8.3 mg/dL (8.5-10.1) 8.2 mg/dL (8.5-10.1) Total Bilirubin 0.4 mg/dL (0.2-1.0) Aspartate Amino Transf (AST/SGOT) 38 U/L (15-37) Alanine Aminotransferase (ALT/SGPT) 8 U/L (16-63) Alkaline Phosphatase 98 U/L (46-116) Total Protein 6.6 g/dL (6.4-8.2) Albumin 1.7 g/dL (3.4-5.0) Albumin/Globulin Ratio 0.3 (1.0-1.7) Hepatitis B Surface Antigen Reactive (Nonreactive) Hepatitis B Surface Antibody Nonreactive Procalcitonin 3.38 ng/mL (0.00-0.10) Micro Microbiology 08/05/18 Blood Culture - Preliminary, Resulted NO GROWTH AFTER 1 DAY Objective Assessment Lactic acidosis Respiratory failure COPD CHF/Pulmonary infiltrate ESRD Plan Plan of Care vanc and zosyn check cultures supportive care ct noted CHAPIN VALERIO MD Aug 07, 2018 07:48
--- NOTE | 2018-08-07 08:38 | PDOC ---
PULMONARY PROGRESS NOTES Subjective PT NOT MORE SOA HE DENIES ANY SYNCOPAL EPISODES Vitals Vital Signs Date Time Temp Pulse Resp B/P (MAP) Pulse Ox O2 Delivery O2 Flow Rate FiO2 08/07/18 08:03 112 22 140/80 (100) 96 Nasal Cannula 2.0 08/07/18 07:00 98.4 98.4 ROS: No Nausea, No Chest Pain, No Abdominal Pain, No Increase Cough General: Alert, No acute distress HEENT: Other Lungs: Crackles Cardiovascular: S1, S2, Other (MURMUR AND RUB) Abdomen: Soft, Non-tender Neuro Exam: Alert Extremities: No Edema Skin: Warm Labs Laboratory Tests Test 08/05/18 18:00 08/05/18 18:30 08/05/18 21:07 08/05/18 22:10 White Blood Count 8.6 x10^3/uL (4.0-11.0) Red Blood Count 1.89 x10^6/uL (4.30-5.70) Hemoglobin 5.5 g/dL (13.0-17.5) Hematocrit 16.4 % (39.0-53.0) Mean Corpuscular Volume 87 fL (79-100) Mean Corpuscular Hemoglobin 29 pg (25-35) Mean Corpuscular Hemoglobin Concent 34 g/dL (31-37) Red Cell Distribution Width 15.6 % (11.5-14.5) Platelet Count 174 x10^3/uL (140-400) Neutrophils (%) (Auto) 66 % (31-73) Lymphocytes (%) (Auto) 19 % (24-48) Monocytes (%) (Auto) 13 % (0-9) Eosinophils (%) (Auto) 2 % (0-3) Basophils (%) (Auto) 0 % (0-3) Neutrophils # (Auto) 5.7 x10^3uL (1.8-7.7) Lymphocytes # (Auto) 1.6 x10^3/uL (1.0-4.8) Monocytes # (Auto) 1.1 x10^3/uL (0.0-1.1) Eosinophils # (Auto) 0.2 x10^3/uL (0.0-0.7) Basophils # (Auto) 0.0 x10^3/uL (0.0-0.2) Prothrombin Time 15.7 SEC (11.7-14.0) Prothromb Time International Ratio 1.3 (0.8-1.1) Activated Partial Thromboplast Time 36 SEC (24-38) Sodium Level 139 mmol/L (136-145) Potassium Level 4.0 mmol/L (3.5-5.1) Chloride Level 101 mmol/L (98-107) Carbon Dioxide Level 34 mmol/L (21-32) Anion Gap 4 (6-14) Blood Urea Nitrogen 25 mg/dL (8-26) Creatinine 5.0 mg/dL (0.7-1.3) Estimated GFR (Cockcroft-Gault) 12.2 BUN/Creatinine Ratio 5 (6-20) Glucose Level 105 mg/dL (70-99) Lactic Acid Level 3.7 mmol/L (0.4-2.0) 3.8 mmol/L (0.4-2.0) Calcium Level 8.6 mg/dL (8.5-10.1) Magnesium Level 1.7 mg/dL (1.8-2.4) Total Bilirubin 0.2 mg/dL (0.2-1.0) Aspartate Amino Transf (AST/SGOT) 42 U/L (15-37) Alanine Aminotransferase (ALT/SGPT) 6 U/L (16-63) Alkaline Phosphatase 117 U/L (46-116) Troponin I Quantitative 0.046 ng/mL (0.000-0.055) Total Protein 7.9 g/dL (6.4-8.2) Albumin 2.0 g/dL (3.4-5.0) Albumin/Globulin Ratio 0.3 (1.0-1.7) Stool Occult Blood Negative (NEG) O2 Saturation 86 % (92-99) Arterial Blood pH 7.50 (7.35-7.45) Arterial Blood pCO2 at Patient Temp 36 mmHg (35-46) Arterial Blood pO2 at Patient Temp 54 mmHg (75-108) Arterial Blood HCO3 28 mmol/L (21-28) Arterial Blood Base Excess 4 mmol/L (-3-3) FiO2 40 Nasal Screen MRSA (PCR) Negative (Negative) Test 08/06/18 08:21 08/06/18 09:37 08/07/18 04:25 O2 Saturation 95 % (92-99) Arterial Blood pH 7.47 (7.35-7.45) Arterial Blood pCO2 at Patient Temp 43 mmHg (35-46) Arterial Blood pO2 at Patient Temp 83 mmHg (75-108) Arterial Blood HCO3 31 mmol/L (21-28) Arterial Blood Base Excess 7 mmol/L (-3-3) FiO2 25 White Blood Count 7.0 x10^3/uL (4.0-11.0) 9.3 x10^3/uL (4.0-11.0) Red Blood Count 2.35 x10^6/uL (4.30-5.70) 3.19 x10^6/uL (4.30-5.70) Hemoglobin 6.8 g/dL (13.0-17.5) 9.3 g/dL (13.0-17.5) Hematocrit 19.6 % (39.0-53.0) 26.6 % (39.0-53.0) Mean Corpuscular Volume 83 fL (79-100) 83 fL (79-100) Mean Corpuscular Hemoglobin 29 pg (25-35) 29 pg (25-35) Mean Corpuscular Hemoglobin Concent 35 g/dL (31-37) 35 g/dL (31-37) Red Cell Distribution Width 17.0 % (11.5-14.5) 16.9 % (11.5-14.5) Platelet Count 120 x10^3/uL (140-400) 114 x10^3/uL (140-400) Neutrophils (%) (Auto) 64 % (31-73) 61 % (31-73) Lymphocytes (%) (Auto) 16 % (24-48) 16 % (24-48) Monocytes (%) (Auto) 13 % (0-9) 14 % (0-9) Eosinophils (%) (Auto) 6 % (0-3) 8 % (0-3) Basophils (%) (Auto) 1 % (0-3) 1 % (0-3) Neutrophils # (Auto) 4.5 x10^3uL (1.8-7.7) 5.7 x10^3uL (1.8-7.7) Lymphocytes # (Auto) 1.1 x10^3/uL (1.0-4.8) 1.5 x10^3/uL (1.0-4.8) Monocytes # (Auto) 0.9 x10^3/uL (0.0-1.1) 1.3 x10^3/uL (0.0-1.1) Eosinophils # (Auto) 0.4 x10^3/uL (0.0-0.7) 0.8 x10^3/uL (0.0-0.7) Basophils # (Auto) 0.1 x10^3/uL (0.0-0.2) 0.1 x10^3/uL (0.0-0.2) Sodium Level 144 mmol/L (136-145) 142 mmol/L (136-145) Potassium Level 4.3 mmol/L (3.5-5.1) 4.1 mmol/L (3.5-5.1) Chloride Level 104 mmol/L (98-107) 103 mmol/L (98-107) Carbon Dioxide Level 33 mmol/L (21-32) 30 mmol/L (21-32) Anion Gap 7 (6-14) 9 (6-14) Blood Urea Nitrogen 33 mg/dL (8-26) 44 mg/dL (8-26) Creatinine 5.8 mg/dL (0.7-1.3) 6.7 mg/dL (0.7-1.3) Estimated GFR (Cockcroft-Gault) 10.2 8.7 BUN/Creatinine Ratio 6 (6-20) Glucose Level 82 mg/dL (70-99) 97 mg/dL (70-99) Lactic Acid Level 1.2 mmol/L (0.4-2.0) Calcium Level 8.3 mg/dL (8.5-10.1) 8.2 mg/dL (8.5-10.1) Total Bilirubin 0.4 mg/dL (0.2-1.0) Aspartate Amino Transf (AST/SGOT) 38 U/L (15-37) Alanine Aminotransferase (ALT/SGPT) 8 U/L (16-63) Alkaline Phosphatase 98 U/L (46-116) Total Protein 6.6 g/dL (6.4-8.2) Albumin 1.7 g/dL (3.4-5.0) Albumin/Globulin Ratio 0.3 (1.0-1.7) Hepatitis B Surface Antigen Reactive (Nonreactive) Hepatitis B Surface Antibody Nonreactive Procalcitonin 3.38 ng/mL (0.00-0.10) Random Vancomycin Level 24.2 mcg/mL Laboratory Tests Test 08/06/18 09:37 08/07/18 04:25 White Blood Count 7.0 x10^3/uL (4.0-11.0) 9.3 x10^3/uL (4.0-11.0) Red Blood Count 2.35 x10^6/uL (4.30-5.70) 3.19 x10^6/uL (4.30-5.70) Hemoglobin 6.8 g/dL (13.0-17.5) 9.3 g/dL (13.0-17.5) Hematocrit 19.6 % (39.0-53.0) 26.6 % (39.0-53.0) Mean Corpuscular Volume 83 fL (79-100) 83 fL (79-100) Mean Corpuscular Hemoglobin 29 pg (25-35) 29 pg (25-35) Mean Corpuscular Hemoglobin Concent 35 g/dL (31-37) 35 g/dL (31-37) Red Cell Distribution Width 17.0 % (11.5-14.5) 16.9 % (11.5-14.5) Platelet Count 120 x10^3/uL (140-400) 114 x10^3/uL (140-400) Neutrophils (%) (Auto) 64 % (31-73) 61 % (31-73) Lymphocytes (%) (Auto) 16 % (24-48) 16 % (24-48) Monocytes (%) (Auto) 13 % (0-9) 14 % (0-9) Eosinophils (%) (Auto) 6 % (0-3) 8 % (0-3) Basophils (%) (Auto) 1 % (0-3) 1 % (0-3) Neutrophils # (Auto) 4.5 x10^3uL (1.8-7.7) 5.7 x10^3uL (1.8-7.7) Lymphocytes # (Auto) 1.1 x10^3/uL (1.0-4.8) 1.5 x10^3/uL (1.0-4.8) Monocytes # (Auto) 0.9 x10^3/uL (0.0-1.1) 1.3 x10^3/uL (0.0-1.1) Eosinophils # (Auto) 0.4 x10^3/uL (0.0-0.7) 0.8 x10^3/uL (0.0-0.7) Basophils # (Auto) 0.1 x10^3/uL (0.0-0.2) 0.1 x10^3/uL (0.0-0.2) Sodium Level 144 mmol/L (136-145) 142 mmol/L (136-145) Potassium Level 4.3 mmol/L (3.5-5.1) 4.1 mmol/L (3.5-5.1) Chloride Level 104 mmol/L (98-107) 103 mmol/L (98-107) Carbon Dioxide Level 33 mmol/L (21-32) 30 mmol/L (21-32) Anion Gap 7 (6-14) 9 (6-14) Blood Urea Nitrogen 33 mg/dL (8-26) 44 mg/dL (8-26) Creatinine 5.8 mg/dL (0.7-1.3) 6.7 mg/dL (0.7-1.3) Estimated GFR (Cockcroft-Gault) 10.2 8.7 BUN/Creatinine Ratio 6 (6-20) Glucose Level 82 mg/dL (70-99) 97 mg/dL (70-99) Lactic Acid Level 1.2 mmol/L (0.4-2.0) Calcium Level 8.3 mg/dL (8.5-10.1) 8.2 mg/dL (8.5-10.1) Total Bilirubin 0.4 mg/dL (0.2-1.0) Aspartate Amino Transf (AST/SGOT) 38 U/L (15-37) Alanine Aminotransferase (ALT/SGPT) 8 U/L (16-63) Alkaline Phosphatase 98 U/L (46-116) Total Protein 6.6 g/dL (6.4-8.2) Albumin 1.7 g/dL (3.4-5.0) Albumin/Globulin Ratio 0.3 (1.0-1.7) Hepatitis B Surface Antigen Reactive (Nonreactive) Hepatitis B Surface Antibody Nonreactive Procalcitonin 3.38 ng/mL (0.00-0.10) Random Vancomycin Level 24.2 mcg/mL Medications Active Scripts Medications Dose Route/Sig Max Daily Dose Days Date Category Zyvox (Linezolid) 600 Mg Tablet 600 Mg PO BID 07/13/18 Rx Impression . MPRESSION: 1. Acute hypoxic respiratory failure multifactorial 2. Abnormal chest x-ray with bilateral interstitial 3. Previous echo with normal ejection fraction of 60%. 4. History of prior thoracentesis. 5. End-stage renal disease, on hemodialysis. 6. PE NEGATIVE VENOUS DOPPLER 7. Acute on chronic anemia with a hemoglobin of 5.5 present on admission, 8. Underlying chronic obstructive pulmonary disease with unknown FEV1. 9. h/o Recent cavitary pneumonia, septic emboli 10. Recent staph bacteremia Plan . ANTICOAGULANT D/C SEC TO RISK OF BLEED SEE DR SUSANNAH WATT ANTIBX PER ID D/W DR TEODORO DANIELS TO TRANSFER OUT OF ICU MAY NEED A NEW ECHO CONSULT ECHO FOLLOW GI INPUT CAYDEN MERRILL MD Aug 07, 2018 08:38
[2018-08-07] MEDS: IPRATRPIUM/ALBUTEROL 0.5/2.5MG 3 ML NEBU. NEB SCH ×4 (08:56→19:41)
[2018-08-07] MEDS: MAGNESIUM OXIDE 400 MG TABLET PO SCH (09:21)
--- NOTE | 2018-08-07 09:23 | PDOC ---
SUBJECTIVE ROS States doing much better OBJECTIVE Vital Signs Vital Signs Date Time Temp Pulse Resp B/P (MAP) Pulse Ox O2 Delivery O2 Flow Rate FiO2 08/07/18 09:00 115 22 160/81 (107) 95 Room Air 08/07/18 08:03 2.0 08/07/18 07:00 98.4 98.4 I & 0 Intake and Output 08/07/18 07:01 Intake Total 1807 ml Output Total 200 ml Balance 1607 ml Intake Oral 600 ml IV Total 229 ml Blood Product 926 ml Blood Product IV Normal Saline Flush 52 ml Output Urine Total 200 ml # Bowel Movements 1 PHYSICAL EXAM Physical Exam Gen- NAD,Not on Bipap HEENT- OM moist , Not on o2 NECK: Supple. LUNGS: With diminished breath sounds at the bases. CARDIOVASCULAR: Regular rate. ABDOMEN: Soft. 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 CTA yest, Pulm managing Better today Anemia- Recd PRBC, CT abdomen ?Hemoperitoneum Hgb stable today COMMENT/RELEVANT DATA Meds Current Medications Medications (Trade) Dose Ordered Sig/Kevin Start Time Stop Time Status Last Admin Dose Admin Acetaminophen (Tylenol) 650 mg PRN Q6HRS PRN 08/06/18 12:30 Albuterol Sulfate (Ventolin Neb Soln) 2.5 mg PRN Q4HRS PRN 08/06/18 12:30 Albuterol/ Ipratropium (Duoneb) 3 ml RTQID 08/06/18 08:30 08/07/18 08:56 3 ML Atropine Sulfate (ATROPINE 0.5mg SYRINGE) 0.5 mg PRN Q5MIN PRN 08/05/18 23:30 Benzonatate (Tessalon Perle) 100 mg 1X ONCE 08/05/18 21:00 08/05/18 21:01 DC 08/05/18 20:42 100 MG Dexmedetomidine HCl 200 mcg/ Sodium Chloride 50 ml @ 0 mls/hr CONT PRN 08/05/18 23:30 08/06/18 06:20 7.75 MLS/HR Docusate Sodium (Colace) 100 mg PRN DAILY PRN 08/06/18 12:30 Furosemide (Lasix) 80 mg 1X ONCE 08/05/18 23:00 08/05/18 23:02 DC 08/06/18 05:40 80 MG Heparin Sodium (Porcine) (Heparin Sodium) 5,050 unit 1X ONCE 08/06/18 14:45 08/06/18 21:07 DC 08/06/18 14:47 5,050 UNIT Heparin Sodium/ Dextrose 500 ml @ 20 mls/hr CONT PRN 08/06/18 13:30 08/06/18 21:07 DC 08/06/18 14:35 20 MLS/HR Hydralazine HCl (Apresoline Inj) 10 mg PRN Q4HRS PRN 08/06/18 12:30 Info (Anti-Coagulation Monitoring By Pharmacy) 1 each PRN DAILY PRN 08/06/18 13:30 08/06/18 21:15 DC 08/06/18 13:24 1 EACH Info (CONTRAST GIVEN -- Rx MONITORING) 1 each PRN DAILY PRN 08/06/18 11:15 08/08/18 11:14 Info (PHARMACY MONITORING -- do not chart) 1 each PRN DAILY PRN 08/06/18 16:15 Iohexol (Omnipaque 350 Mg/ml) 85 ml 1X ONCE 08/06/18 11:00 08/06/18 11:01 DC 08/06/18 11:00 85 ML Lorazepam (Ativan) 2 mg PRN Q4HRS PRN 08/05/18 23:00 08/05/18 23:54 2 MG Magnesium Oxide (Magnesium Oxide) 400 mg DAILY 08/06/18 09:00 08/06/18 14:40 400 MG Morphine Sulfate (Morphine Sulfate) 2 mg PRN Q2HR PRN 08/06/18 12:30 Ondansetron HCl (Zofran) 4 mg PRN Q6HRS PRN 08/06/18 12:30 Piperacillin Sod/ Tazobactam Sod (Zosyn Per Pharmacy) 1 each PRN DAILY PRN 08/06/18 03:45 Piperacillin Sod/ Tazobactam Sod 2.25 gm/Sodium Chloride 50 ml @ 100 mls/hr Q8HRS 08/06/18 06:00 08/07/18 06:09 100 MLS/HR Piperacillin Sod/ Tazobactam Sod 3.375 gm/Sodium Chloride 50 ml @ 100 mls/hr 1X ONCE 08/05/18 21:00 08/05/18 21:29 DC 08/05/18 20:42 100 MLS/HR Risperidone (RisperDAL) 2 mg PRN Q12HRS PRN 08/05/18 23:00 08/05/18 23:53 2 MG Sodium Chloride 1,000 ml @ 400 mls/hr Q2H30M PRN 08/06/18 16:04 08/07/18 04:03 DC Throat Lozenges (Cepacol Sore Throat Lozenge) 1 breezy PRN Q2HRS PRN 08/05/18 20:30 Tramadol HCl (Ultram) 50 mg PRN Q6HRS PRN 08/06/18 12:30 Vancomycin HCl (Vanco Per Pharmacy) 1 each PRN DAILY PRN 08/06/18 04:00 08/06/18 13:12 1 EACH Vancomycin HCl (Vancomycin Random Level) 1 each 1X ONCE 08/07/18 05:00 08/07/18 05:01 DC 08/07/18 05:00 1 EACH Vancomycin HCl (Vancomycin Trough Level) 1 each 1X ONCE 08/07/18 21:30 08/07/18 21:31 Cancel Vancomycin HCl 1.75 gm/Sodium Chloride 500 ml @ 250 mls/hr 1X ONCE 08/05/18 21:00 08/05/18 22:59 DC 08/05/18 21:21 250 MLS/HR Lab Laboratory Tests Test 08/06/18 09:37 08/07/18 04:25 White Blood Count 7.0 x10^3/uL (4.0-11.0) 9.3 x10^3/uL (4.0-11.0) Red Blood Count 2.35 x10^6/uL (4.30-5.70) 3.19 x10^6/uL (4.30-5.70) Hemoglobin 6.8 g/dL (13.0-17.5) 9.3 g/dL (13.0-17.5) Hematocrit 19.6 % (39.0-53.0) 26.6 % (39.0-53.0) Mean Corpuscular Volume 83 fL (79-100) 83 fL (79-100) Mean Corpuscular Hemoglobin 29 pg (25-35) 29 pg (25-35) Mean Corpuscular Hemoglobin Concent 35 g/dL (31-37) 35 g/dL (31-37) Red Cell Distribution Width 17.0 % (11.5-14.5) 16.9 % (11.5-14.5) Platelet Count 120 x10^3/uL (140-400) 114 x10^3/uL (140-400) Neutrophils (%) (Auto) 64 % (31-73) 61 % (31-73) Lymphocytes (%) (Auto) 16 % (24-48) 16 % (24-48) Monocytes (%) (Auto) 13 % (0-9) 14 % (0-9) Eosinophils (%) (Auto) 6 % (0-3) 8 % (0-3) Basophils (%) (Auto) 1 % (0-3) 1 % (0-3) Neutrophils # (Auto) 4.5 x10^3uL (1.8-7.7) 5.7 x10^3uL (1.8-7.7) Lymphocytes # (Auto) 1.1 x10^3/uL (1.0-4.8) 1.5 x10^3/uL (1.0-4.8) Monocytes # (Auto) 0.9 x10^3/uL (0.0-1.1) 1.3 x10^3/uL (0.0-1.1) Eosinophils # (Auto) 0.4 x10^3/uL (0.0-0.7) 0.8 x10^3/uL (0.0-0.7) Basophils # (Auto) 0.1 x10^3/uL (0.0-0.2) 0.1 x10^3/uL (0.0-0.2) Sodium Level 144 mmol/L (136-145) 142 mmol/L (136-145) Potassium Level 4.3 mmol/L (3.5-5.1) 4.1 mmol/L (3.5-5.1) Chloride Level 104 mmol/L (98-107) 103 mmol/L (98-107) Carbon Dioxide Level 33 mmol/L (21-32) 30 mmol/L (21-32) Anion Gap 7 (6-14) 9 (6-14) Blood Urea Nitrogen 33 mg/dL (8-26) 44 mg/dL (8-26) Creatinine 5.8 mg/dL (0.7-1.3) 6.7 mg/dL (0.7-1.3) Estimated GFR (Cockcroft-Gault) 10.2 8.7 BUN/Creatinine Ratio 6 (6-20) Glucose Level 82 mg/dL (70-99) 97 mg/dL (70-99) Lactic Acid Level 1.2 mmol/L (0.4-2.0) Calcium Level 8.3 mg/dL (8.5-10.1) 8.2 mg/dL (8.5-10.1) Total Bilirubin 0.4 mg/dL (0.2-1.0) Aspartate Amino Transf (AST/SGOT) 38 U/L (15-37) Alanine Aminotransferase (ALT/SGPT) 8 U/L (16-63) Alkaline Phosphatase 98 U/L (46-116) Total Protein 6.6 g/dL (6.4-8.2) Albumin 1.7 g/dL (3.4-5.0) Albumin/Globulin Ratio 0.3 (1.0-1.7) Hepatitis B Surface Antigen Reactive (Nonreactive) Hepatitis B Surface Antibody Nonreactive Procalcitonin 3.38 ng/mL (0.00-0.10) Random Vancomycin Level 24.2 mcg/mL Results All relevant outside records, renal labs, imaging studies, telemetry/EKG's were reviewed. MARIYA NORMAN MD Aug 07, 2018 09:23
--- NOTE | 2018-08-07 09:26 | PDOC2 ---
CONSULT Date of Consult Date of Consult DATE: 08/07/18 TIME: 09:16 Reason for Consult Reason for Consult: Hemoperitoneum Referring Physician Referring Physician: Sunitha Identification/Chief Complaint Chief Complaint SOA Source Source: Chart review, Patient History of Present Illness Reason for Visit: 53 yo M admitted with c/o SOA. He has had previous episodes when his hgb was decreased. Today, he feels much better. He denies any abdominal c/o. Past Medical History Cardiovascular: No pertinent hx Pulmonary: No pertinent hx GI: No pertinent hx Heme/Onc: No pertinent hx Hepatobiliary: No pertinent hx Psych: No pertinent hx Rheumatologic: No pertinent hx Infectious disease: No pertinent hx Renal/: No pertinent hx Endocrine: No pertinent hx Past Surgical History Past Surgical History: Other (Kidney artery stent, suprapubic cath) Family History Family History: Coronary Artery Disease Social History No ALCOHOL: none Drugs: None Lives: with Family Current Problem List Problem List Problems Medical Problems: (1) Dyspnea Status: Acute (2) Pneumonia Status: Acute Current Medications Current Medications Current Medications Albuterol/ Ipratropium (Duoneb) 3 ml 1X ONCE NEB Last administered on at 19:42; Start 08/05/18 at 20:15; Stop 08/05/18 at 20:16; Status DC Lorazepam (Ativan) 0.5 mg 1X ONCE IV Last administered on 08/05/18at 19:47; Start 08/05/18 at 20:15; Stop 08/05/18 at 20:16; Status DC Piperacillin Sod/ Tazobactam Sod 3.375 gm/Sodium Chloride 50 ml @ 100 mls/hr 1X ONCE IV Last administered on 08/05/18at 20:42; Start 08/05/18 at 21:00; Stop 08/05/18 at 21:29; Status DC Vancomycin HCl 1.75 gm/Sodium Chloride 500 ml @ 250 mls/hr 1X ONCE IV Last administered on 08/05/18at 21:21; Start 08/05/18 at 21:00; Stop 08/05/18 at 22:59 ; Status DC Acetaminophen (Tylenol) 650 mg PRN Q4HRS PRN PO FEVER; Start 08/05/18 at 20:15 ; Stop 08/06/18 at 12:38; Status DC Magnesium Oxide (Magnesium Oxide) 400 mg DAILY PO Last administered on at 14:40; Start 08/06/18 at 09:00 Benzonatate (Tessalon Perle) 100 mg 1X ONCE PO Last administered on 08/05/18at 20:42; Start 08/05/18 at 21:00; Stop 08/05/18 at 21:01; Status DC Throat Lozenges (Cepacol Sore Throat Lozenge) 1 breezy PRN Q2HRS PRN PO SORE THROAT; Start 08/05/18 at 20:30 Lorazepam (Ativan) 1 mg 1X ONCE IV Last administered on 08/05/18at 20:43; Start 08/05/18 at 21:00; Stop 08/05/18 at 21:01; Status DC Sodium Chloride 500 ml @ 500 mls/hr 1X ONCE IV Last administered on at 21:20; Start 08/05/18 at 21:00; Stop 08/05/18 at 21:59; Status DC Lorazepam (Ativan) 2 mg PRN Q4HRS PRN IV ANXIETY / AGITATION Last administered on 08/05/18at 23:54; Start 08/05/18 at 23:00 Risperidone (RisperDAL) 2 mg PRN Q12HRS PRN PO ANXIETY / AGITATION Last administered on 08/05/18at 23:53; Start 08/05/18 at 23:00 Furosemide (Lasix) 80 mg 1X ONCE IVP Last administered on 08/06/18at 05:40; Start 08/05/18 at 23:00; Stop 08/05/18 at 23:02; Status DC Dexmedetomidine HCl 200 mcg/ Sodium Chloride 50 ml @ 0 mls/hr CONT PRN IV PER PROTOCOL Last administered on 08/06/18at 06:20; Start 08/05/18 at 23:30 Sodium Chloride 500 ml @ 500 mls/hr 1X PRN PRN IV SEE COMMENTS; Start at 23:30 Atropine Sulfate (ATROPINE 0.5mg SYRINGE) 0.5 mg PRN Q5MIN PRN IV SEE COMMENTS ; Start 08/05/18 at 23:30 Piperacillin Sod/ Tazobactam Sod (Zosyn Per Pharmacy) 1 each PRN DAILY PRN MC SEE COMMENTS; Start 08/06/18 at 03:45 Vancomycin HCl (Vanco Per Pharmacy) 1 each PRN DAILY PRN MC SEE COMMENTS Last administered on 08/06/18at 13:12; Start 08/06/18 at 04:00 Piperacillin Sod/ Tazobactam Sod 2.25 gm/Sodium Chloride 50 ml @ 100 mls/hr Q8HRS IV Last administered on 08/07/18at 06:09; Start 08/06/18 at 06:00 Vancomycin HCl (Vancomycin Trough Level) 1 each 1X ONCE MC ; Start 08/07/18 at 21:30; Stop 08/07/18 at 21:31; Status Cancel Albuterol/ Ipratropium (Duoneb) 3 ml RTQID NEB Last administered on 08/07/18at 08:56; Start 08/06/18 at 08:30 Iohexol (Omnipaque 350 Mg/ml) 85 ml 1X ONCE IV Last administered on 08/06/18at 11:00; Start 08/06/18 at 11:00; Stop 08/06/18 at 11:01; Status DC Info (CONTRAST GIVEN -- Rx MONITORING) 1 each PRN DAILY PRN MC SEE COMMENTS; Start 08/06/18 at 11:15; Stop 08/08/18 at 11:14 Albuterol Sulfate (Ventolin Neb Soln) 2.5 mg PRN Q4HRS PRN NEB SHORTNESS OF BREATH; Start 08/06/18 at 12:30 Acetaminophen (Tylenol) 650 mg PRN Q6HRS PRN PO FEVER; Start 08/06/18 at 12:30 Ondansetron HCl (Zofran) 4 mg PRN Q6HRS PRN IV NAUSEA/VOMITING; Start 08/06/18 at 12:30 Morphine Sulfate (Morphine Sulfate) 2 mg PRN Q2HR PRN IV MODERATE TO SEVERE PAIN; Start 08/06/18 at 12:30 Tramadol HCl (Ultram) 50 mg PRN Q6HRS PRN PO MILD TO MODERATE PAIN; Start 08/06 at 12:30 Hydralazine HCl (Apresoline Inj) 10 mg PRN Q4HRS PRN IVP ELEVATED BP, SEE COMMENTS; Start 08/06/18 at 12:30 Docusate Sodium (Colace) 100 mg PRN DAILY PRN PO CONSTIPATION; Start 08/06/18 at 12:30 Heparin Sodium (Porcine) (Heparin Sodium) 5,000 unit Q8HRS SQ ; Start 08/06/18 at 14:00; Status Cancel Vancomycin HCl (Vancomycin Random Level) 1 each 1X ONCE MC Last administered on 08/07/18at 05:00; Start 08/07/18 at 05:00; Stop 08/07/18 at 05:01; Status DC Heparin Sodium/ Dextrose 500 ml @ 20 mls/hr CONT PRN IV SEE I/O RECORD Last administered on 08/06/18at 14:35; Start 08/06/18 at 13:30; Stop 08/06/18 at 21:07 ; Status DC Heparin Sodium (Porcine) (Heparin Sodium) 1,900 unit PRN Q6HRS PRN IV FOR UFH LEVEL LESS THAN 0.2; Start 08/06/18 at 14:00 Heparin Sodium (Porcine) (Heparin Sodium) 950 unit PRN Q6HRS PRN IV FOR UFH LEVEL 0.2 - 0.29; Start 08/06/18 at 14:00; Stop 08/06/18 at 21:07; Status DC Info (Anti-Coagulation Monitoring By Pharmacy) 1 each PRN DAILY PRN MC SEE COMMENTS Last administered on 08/06/18at 13:24; Start 08/06/18 at 13:30; Stop at 21:15; Status DC Heparin Sodium (Porcine) (Heparin Sodium) 5,050 unit 1X ONCE IV Last administered on 08/06/18at 14:47; Start 08/06/18 at 14:45; Stop 08/06/18 at 21:07 ; Status DC Sodium Chloride 1,000 ml @ 1,000 mls/hr Q1H PRN IV hypotension; Start 08/06/18 at 16:04; Stop 08/07/18 at 00:09; Status DC Sodium Chloride 1,000 ml @ 400 mls/hr Q2H30M PRN IV PATENCY; Start 08/06/18 at 16:04; Stop 08/07/18 at 04:03; Status DC Info (PHARMACY MONITORING -- do not chart) 1 each PRN DAILY PRN MC SEE COMMENTS ; Start 08/06/18 at 16:15 Active Scripts Active Zyvox (Linezolid) 600 Mg Tablet 600 Mg PO BID 28 Days Allergies Allergies: Coded Allergies: No Known Drug Allergies (Unverified , 01/04/18) ROS Respiratory: YES: Shortness of breath Physical Exam General: Alert, Oriented X3, Cooperative, No acute distress HEENT: EOMI Lungs: Normal air movement Abdomen: Soft, No tenderness, Other (suprapubic cath in with clear urine) Extremities: No clubbing, No cyanosis Skin: No rashes, No breakdown Neuro: Normal speech, Sensation intact Psych/Mental Status: Mental status NL, Mood NL Vitals VITALS Vital Signs Date Time Temp Pulse Resp B/P (MAP) Pulse Ox O2 Delivery O2 Flow Rate FiO2 08/07/18 09:00 115 22 160/81 (107) 95 Room Air 08/07/18 08:03 2.0 08/07/18 07:00 98.4 98.4 Labs Labs Laboratory Tests Test 08/05/18 18:00 08/05/18 18:30 08/05/18 21:07 08/05/18 22:10 White Blood Count 8.6 x10^3/uL (4.0-11.0) Red Blood Count 1.89 x10^6/uL (4.30-5.70) Hemoglobin 5.5 g/dL (13.0-17.5) Hematocrit 16.4 % (39.0-53.0) Mean Corpuscular Volume 87 fL (79-100) Mean Corpuscular Hemoglobin 29 pg (25-35) Mean Corpuscular Hemoglobin Concent 34 g/dL (31-37) Red Cell Distribution Width 15.6 % (11.5-14.5) Platelet Count 174 x10^3/uL (140-400) Neutrophils (%) (Auto) 66 % (31-73) Lymphocytes (%) (Auto) 19 % (24-48) Monocytes (%) (Auto) 13 % (0-9) Eosinophils (%) (Auto) 2 % (0-3) Basophils (%) (Auto) 0 % (0-3) Neutrophils # (Auto) 5.7 x10^3uL (1.8-7.7) Lymphocytes # (Auto) 1.6 x10^3/uL (1.0-4.8) Monocytes # (Auto) 1.1 x10^3/uL (0.0-1.1) Eosinophils # (Auto) 0.2 x10^3/uL (0.0-0.7) Basophils # (Auto) 0.0 x10^3/uL (0.0-0.2) Prothrombin Time 15.7 SEC (11.7-14.0) Prothromb Time International Ratio 1.3 (0.8-1.1) Activated Partial Thromboplast Time 36 SEC (24-38) Sodium Level 139 mmol/L (136-145) Potassium Level 4.0 mmol/L (3.5-5.1) Chloride Level 101 mmol/L (98-107) Carbon Dioxide Level 34 mmol/L (21-32) Anion Gap 4 (6-14) Blood Urea Nitrogen 25 mg/dL (8-26) Creatinine 5.0 mg/dL (0.7-1.3) Estimated GFR (Cockcroft-Gault) 12.2 BUN/Creatinine Ratio 5 (6-20) Glucose Level 105 mg/dL (70-99) Lactic Acid Level 3.7 mmol/L (0.4-2.0) 3.8 mmol/L (0.4-2.0) Calcium Level 8.6 mg/dL (8.5-10.1) Magnesium Level 1.7 mg/dL (1.8-2.4) Total Bilirubin 0.2 mg/dL (0.2-1.0) Aspartate Amino Transf (AST/SGOT) 42 U/L (15-37) Alanine Aminotransferase (ALT/SGPT) 6 U/L (16-63) Alkaline Phosphatase 117 U/L (46-116) Troponin I Quantitative 0.046 ng/mL (0.000-0.055) Total Protein 7.9 g/dL (6.4-8.2) Albumin 2.0 g/dL (3.4-5.0) Albumin/Globulin Ratio 0.3 (1.0-1.7) Stool Occult Blood Negative (NEG) O2 Saturation 86 % (92-99) Arterial Blood pH 7.50 (7.35-7.45) Arterial Blood pCO2 at Patient Temp 36 mmHg (35-46) Arterial Blood pO2 at Patient Temp 54 mmHg (75-108) Arterial Blood HCO3 28 mmol/L (21-28) Arterial Blood Base Excess 4 mmol/L (-3-3) FiO2 40 Nasal Screen MRSA (PCR) Negative (Negative) Test 08/06/18 08:21 08/06/18 09:37 08/07/18 04:25 O2 Saturation 95 % (92-99) Arterial Blood pH 7.47 (7.35-7.45) Arterial Blood pCO2 at Patient Temp 43 mmHg (35-46) Arterial Blood pO2 at Patient Temp 83 mmHg (75-108) Arterial Blood HCO3 31 mmol/L (21-28) Arterial Blood Base Excess 7 mmol/L (-3-3) FiO2 25 White Blood Count 7.0 x10^3/uL (4.0-11.0) 9.3 x10^3/uL (4.0-11.0) Red Blood Count 2.35 x10^6/uL (4.30-5.70) 3.19 x10^6/uL (4.30-5.70) Hemoglobin 6.8 g/dL (13.0-17.5) 9.3 g/dL (13.0-17.5) Hematocrit 19.6 % (39.0-53.0) 26.6 % (39.0-53.0) Mean Corpuscular Volume 83 fL (79-100) 83 fL (79-100) Mean Corpuscular Hemoglobin 29 pg (25-35) 29 pg (25-35) Mean Corpuscular Hemoglobin Concent 35 g/dL (31-37) 35 g/dL (31-37) Red Cell Distribution Width 17.0 % (11.5-14.5) 16.9 % (11.5-14.5) Platelet Count 120 x10^3/uL (140-400) 114 x10^3/uL (140-400) Neutrophils (%) (Auto) 64 % (31-73) 61 % (31-73) Lymphocytes (%) (Auto) 16 % (24-48) 16 % (24-48) Monocytes (%) (Auto) 13 % (0-9) 14 % (0-9) Eosinophils (%) (Auto) 6 % (0-3) 8 % (0-3) Basophils (%) (Auto) 1 % (0-3) 1 % (0-3) Neutrophils # (Auto) 4.5 x10^3uL (1.8-7.7) 5.7 x10^3uL (1.8-7.7) Lymphocytes # (Auto) 1.1 x10^3/uL (1.0-4.8) 1.5 x10^3/uL (1.0-4.8) Monocytes # (Auto) 0.9 x10^3/uL (0.0-1.1) 1.3 x10^3/uL (0.0-1.1) Eosinophils # (Auto) 0.4 x10^3/uL (0.0-0.7) 0.8 x10^3/uL (0.0-0.7) Basophils # (Auto) 0.1 x10^3/uL (0.0-0.2) 0.1 x10^3/uL (0.0-0.2) Sodium Level 144 mmol/L (136-145) 142 mmol/L (136-145) Potassium Level 4.3 mmol/L (3.5-5.1) 4.1 mmol/L (3.5-5.1) Chloride Level 104 mmol/L (98-107) 103 mmol/L (98-107) Carbon Dioxide Level 33 mmol/L (21-32) 30 mmol/L (21-32) Anion Gap 7 (6-14) 9 (6-14) Blood Urea Nitrogen 33 mg/dL (8-26) 44 mg/dL (8-26) Creatinine 5.8 mg/dL (0.7-1.3) 6.7 mg/dL (0.7-1.3) Estimated GFR (Cockcroft-Gault) 10.2 8.7 BUN/Creatinine Ratio 6 (6-20) Glucose Level 82 mg/dL (70-99) 97 mg/dL (70-99) Lactic Acid Level 1.2 mmol/L (0.4-2.0) Calcium Level 8.3 mg/dL (8.5-10.1) 8.2 mg/dL (8.5-10.1) Total Bilirubin 0.4 mg/dL (0.2-1.0) Aspartate Amino Transf (AST/SGOT) 38 U/L (15-37) Alanine Aminotransferase (ALT/SGPT) 8 U/L (16-63) Alkaline Phosphatase 98 U/L (46-116) Total Protein 6.6 g/dL (6.4-8.2) Albumin 1.7 g/dL (3.4-5.0) Albumin/Globulin Ratio 0.3 (1.0-1.7) Hepatitis B Surface Antigen Reactive (Nonreactive) Hepatitis B Surface Antibody Nonreactive Procalcitonin 3.38 ng/mL (0.00-0.10) Random Vancomycin Level 24.2 mcg/mL Laboratory Tests Test 08/06/18 09:37 08/07/18 04:25 White Blood Count 7.0 x10^3/uL (4.0-11.0) 9.3 x10^3/uL (4.0-11.0) Red Blood Count 2.35 x10^6/uL (4.30-5.70) 3.19 x10^6/uL (4.30-5.70) Hemoglobin 6.8 g/dL (13.0-17.5) 9.3 g/dL (13.0-17.5) Hematocrit 19.6 % (39.0-53.0) 26.6 % (39.0-53.0) Mean Corpuscular Volume 83 fL (79-100) 83 fL (79-100) Mean Corpuscular Hemoglobin 29 pg (25-35) 29 pg (25-35) Mean Corpuscular Hemoglobin Concent 35 g/dL (31-37) 35 g/dL (31-37) Red Cell Distribution Width 17.0 % (11.5-14.5) 16.9 % (11.5-14.5) Platelet Count 120 x10^3/uL (140-400) 114 x10^3/uL (140-400) Neutrophils (%) (Auto) 64 % (31-73) 61 % (31-73) Lymphocytes (%) (Auto) 16 % (24-48) 16 % (24-48) Monocytes (%) (Auto) 13 % (0-9) 14 % (0-9) Eosinophils (%) (Auto) 6 % (0-3) 8 % (0-3) Basophils (%) (Auto) 1 % (0-3) 1 % (0-3) Neutrophils # (Auto) 4.5 x10^3uL (1.8-7.7) 5.7 x10^3uL (1.8-7.7) Lymphocytes # (Auto) 1.1 x10^3/uL (1.0-4.8) 1.5 x10^3/uL (1.0-4.8) Monocytes # (Auto) 0.9 x10^3/uL (0.0-1.1) 1.3 x10^3/uL (0.0-1.1) Eosinophils # (Auto) 0.4 x10^3/uL (0.0-0.7) 0.8 x10^3/uL (0.0-0.7) Basophils # (Auto) 0.1 x10^3/uL (0.0-0.2) 0.1 x10^3/uL (0.0-0.2) Sodium Level 144 mmol/L (136-145) 142 mmol/L (136-145) Potassium Level 4.3 mmol/L (3.5-5.1) 4.1 mmol/L (3.5-5.1) Chloride Level 104 mmol/L (98-107) 103 mmol/L (98-107) Carbon Dioxide Level 33 mmol/L (21-32) 30 mmol/L (21-32) Anion Gap 7 (6-14) 9 (6-14) Blood Urea Nitrogen 33 mg/dL (8-26) 44 mg/dL (8-26) Creatinine 5.8 mg/dL (0.7-1.3) 6.7 mg/dL (0.7-1.3) Estimated GFR (Cockcroft-Gault) 10.2 8.7 BUN/Creatinine Ratio 6 (6-20) Glucose Level 82 mg/dL (70-99) 97 mg/dL (70-99) Lactic Acid Level 1.2 mmol/L (0.4-2.0) Calcium Level 8.3 mg/dL (8.5-10.1) 8.2 mg/dL (8.5-10.1) Total Bilirubin 0.4 mg/dL (0.2-1.0) Aspartate Amino Transf (AST/SGOT) 38 U/L (15-37) Alanine Aminotransferase (ALT/SGPT) 8 U/L (16-63) Alkaline Phosphatase 98 U/L (46-116) Total Protein 6.6 g/dL (6.4-8.2) Albumin 1.7 g/dL (3.4-5.0) Albumin/Globulin Ratio 0.3 (1.0-1.7) Hepatitis B Surface Antigen Reactive (Nonreactive) Hepatitis B Surface Antibody Nonreactive Procalcitonin 3.38 ng/mL (0.00-0.10) Random Vancomycin Level 24.2 mcg/mL Images Images CT a/p with free fluid c/w hemoperitoneum, but without obvious source. Assessment/Plan Assessment/Plan Hemoperitoneum agree with holding anticoagulants, given this finding. Also agree with transfusion, as this appears to have resolved his symptoms. Would not recommend surgical exploration, at this time, given resolution of symptoms. Thanks for consult! THAD PERRIN MD Aug 07, 2018 09:26
--- NOTE | 2018-08-07 09:27 | PDOC2 ---
GI CONSULT Reason For Consult: blood in abdomen HPI: HPI: 53 y/o male who we have seen in the past. Came to ER w/ SOA and fatigue on 08/05 , admitted to ICU. Noted w/ Hgb 5.5 (now 9.3 s/p transfusion 4 units). H/o anemia, seems to average in 8s though has also had past results in 5s, 6s, and 7s. Thought chronic illness anemia in the past, h/o ESRD on HD. In 06/2018, iron 11, TIBC 129, and iron sat 9. Fecal occult was negative. CTA chest noted small segmental PE in LLL w/ questionable small subsegmental PE in RLL. Was given Heparin. Then CT A/P noted moderate free fluid in the abdomen and pelvis w/ hyperdense appearance, c/w hemoperitoneum w/o clear source. Surgery has been consulted. Denies n/v, GERD, dysphagia, abd pain, diarrhea, constipation, hematochezia, melena, hematemesis, change in appetite, or weight loss. Had a normal stool this morning, ate all of breakfast. No previous EGD or colonoscopy. No GB, liver, or pancreas history. Reviewed w/ RN - has only been taking one pill at home (antibiotic) though might have been taking an iron pill at one time. PMH: PMH: ESRD on HD, neurogenic bladder, hydronephrosis, UTI, MSSA bacteremia, anemia ( chronic disease) suprapubic catheter, nephrostomy tubes, ureteral stent placement/removal, thoracentesis FH: Family History: No pertinent hx Social History: Smoke: Quit ALCOHOL: none (drank in the past, none for >30 years) Drugs: None ROS: GEN: +fatigue HEENT: Denies blurred vision, sore throat CV: Denies chest pain RESP: +SOA (better) GI: Per HPI : Denies hematuria, dysuria ENDO: Denies weight changes NEURO: Denies confusion, dizziness MSK: Denies weakness, joint pain/swelling SKIN: Denies jaundice, pruritus Vitals: Vitals: Vital Signs Date Time Temp Pulse Resp B/P (MAP) Pulse Ox O2 Delivery O2 Flow Rate FiO2 08/07/18 09:00 115 22 160/81 (107) 95 Room Air 08/07/18 08:03 2.0 08/07/18 07:00 98.4 98.4 Labs: Labs: Laboratory Tests Test 08/06/18 09:37 08/07/18 04:25 White Blood Count 7.0 x10^3/uL (4.0-11.0) 9.3 x10^3/uL (4.0-11.0) Red Blood Count 2.35 x10^6/uL (4.30-5.70) 3.19 x10^6/uL (4.30-5.70) Hemoglobin 6.8 g/dL (13.0-17.5) 9.3 g/dL (13.0-17.5) Hematocrit 19.6 % (39.0-53.0) 26.6 % (39.0-53.0) Mean Corpuscular Volume 83 fL (79-100) 83 fL (79-100) Mean Corpuscular Hemoglobin 29 pg (25-35) 29 pg (25-35) Mean Corpuscular Hemoglobin Concent 35 g/dL (31-37) 35 g/dL (31-37) Red Cell Distribution Width 17.0 % (11.5-14.5) 16.9 % (11.5-14.5) Platelet Count 120 x10^3/uL (140-400) 114 x10^3/uL (140-400) Neutrophils (%) (Auto) 64 % (31-73) 61 % (31-73) Lymphocytes (%) (Auto) 16 % (24-48) 16 % (24-48) Monocytes (%) (Auto) 13 % (0-9) 14 % (0-9) Eosinophils (%) (Auto) 6 % (0-3) 8 % (0-3) Basophils (%) (Auto) 1 % (0-3) 1 % (0-3) Neutrophils # (Auto) 4.5 x10^3uL (1.8-7.7) 5.7 x10^3uL (1.8-7.7) Lymphocytes # (Auto) 1.1 x10^3/uL (1.0-4.8) 1.5 x10^3/uL (1.0-4.8) Monocytes # (Auto) 0.9 x10^3/uL (0.0-1.1) 1.3 x10^3/uL (0.0-1.1) Eosinophils # (Auto) 0.4 x10^3/uL (0.0-0.7) 0.8 x10^3/uL (0.0-0.7) Basophils # (Auto) 0.1 x10^3/uL (0.0-0.2) 0.1 x10^3/uL (0.0-0.2) Sodium Level 144 mmol/L (136-145) 142 mmol/L (136-145) Potassium Level 4.3 mmol/L (3.5-5.1) 4.1 mmol/L (3.5-5.1) Chloride Level 104 mmol/L (98-107) 103 mmol/L (98-107) Carbon Dioxide Level 33 mmol/L (21-32) 30 mmol/L (21-32) Anion Gap 7 (6-14) 9 (6-14) Blood Urea Nitrogen 33 mg/dL (8-26) 44 mg/dL (8-26) Creatinine 5.8 mg/dL (0.7-1.3) 6.7 mg/dL (0.7-1.3) Estimated GFR (Cockcroft-Gault) 10.2 8.7 BUN/Creatinine Ratio 6 (6-20) Glucose Level 82 mg/dL (70-99) 97 mg/dL (70-99) Lactic Acid Level 1.2 mmol/L (0.4-2.0) Calcium Level 8.3 mg/dL (8.5-10.1) 8.2 mg/dL (8.5-10.1) Total Bilirubin 0.4 mg/dL (0.2-1.0) Aspartate Amino Transf (AST/SGOT) 38 U/L (15-37) Alanine Aminotransferase (ALT/SGPT) 8 U/L (16-63) Alkaline Phosphatase 98 U/L (46-116) Total Protein 6.6 g/dL (6.4-8.2) Albumin 1.7 g/dL (3.4-5.0) Albumin/Globulin Ratio 0.3 (1.0-1.7) Hepatitis B Surface Antigen Reactive (Nonreactive) Hepatitis B Surface Antibody Nonreactive Procalcitonin 3.38 ng/mL (0.00-0.10) Random Vancomycin Level 24.2 mcg/mL BLOOD CULTURE Preliminary NO GROWTH AFTER 1 DAY Allergies: Coded Allergies: No Known Drug Allergies (Unverified , 01/04/18) Medications: Current Medications Medications (Trade) Dose Ordered Sig/Kevin Route PRN Reason Start Time Stop Time Status Last Admin Dose Admin Iohexol (Omnipaque 350 Mg/ml) 85 ml 1X ONCE IV 08/06/18 11:00 08/06/18 11:01 DC 08/06/18 11:00 Vancomycin HCl (Vancomycin Random Level) 1 each 1X ONCE MC 08/07/18 05:00 08/07/18 05:01 DC 08/07/18 05:00 Heparin Sodium/ Dextrose 500 ml @ 20 mls/hr CONT PRN IV SEE I/O RECORD 08/06/18 13:30 08/06/18 21:07 DC 08/06/18 14:35 Info (Anti-Coagulation Monitoring By Pharmacy) 1 each PRN DAILY PRN MC SEE COMMENTS 08/06/18 13:30 08/06/18 21:15 DC 08/06/18 13:24 Heparin Sodium (Porcine) (Heparin Sodium) 5,050 unit 1X ONCE IV 08/06/18 14:45 08/06/18 21:07 DC 08/06/18 14:47 Imaging: Imaging: CXR 08/05 IMPRESSION: 1. Moderate congestive changes. Round foci of airspace opacities identified in the bilateral lungs could be loculated bilateral pleural effusions identified. 2. Patchy bibasilar lung airspace opacities likely atelectasis or infiltrates. Head CT IMPRESSION: No acute intracranial findings. CXR 08/06 IMPRESSION: 1. Vascular congestion has improved slightly. 2. Worsening left lateral pulmonary infiltrate. 3. Residual pulmonary nodules. 4. Small bilateral pleural effusions. Chest CTA IMPRESSION: 1. Small segmental pulmonary embolus in the left lower lobe. 2. Questionable small subsegmental pulmonary embolus in the right lower lobe. 3. Ongoing moderate sized left pleural effusion and small right pleural effusion with fissural extensions. 4. Bilateral cavitary pulmonary nodules have regressed since 07/05/2018. 5. Patchy groundglass and interstitial opacities in both lungs with interval worsening in the right lower lobe. The findings may reflect pulmonary edema or infection. 6. Ongoing mild ascites. LE US Impression: Negative study. CT A/P IMPRESSION: 1. Moderate free fluid in the abdomen and pelvis, with hyperdense appearance, compatible with hemoperitoneum. Source of hemorrhage is uncertain on this exam. 2. Moderate to severe constipation particularly at the distal sigmoid colon and rectum. 3. Left irregular pleural fluid collection with pleural thickening, suggesting empyema. 4. Right pleural effusion. 5. Small pulmonary nodules up to 1 cm, may represent sequela of the previously seen cavitary lesions. PE: GEN: NAD, eating pancakes HEENT: Atraumatic, PERRL LUNGS: CTAB HEART: tachycardic ABD: NABS, S/ND/NT, SP cath EXTREMITY: No edema SKIN: No rashes, no jaundice NEURO/PSYCH: A & O 3, flat A/P: A/P: Resp failure - improved Abnormal chest and abd imaging - ?hemoperitoneum (?source) Chronic anemia - improved w/ transfusion, fecal occult neg, no obvious bleeding CRC screen - none ESRD on HD, Hep Bs Ag + -- Reviewed w/ Dr. Shaikh - could consider tapping abd fluid to confirm blood. Check Hep B Core Ab. ERINN HOBSON Aug 07, 2018 09:27
--- NOTE | 2018-08-07 11:33 | RAD ---
Ultrasound-guided diagnostic paracentesis 08/07/2018 11:27 AM Procedure: The risks and benefits of the procedure were discussed the patient. Informed consent was obtained. A timeout procedure was performed. Sonographic evaluation of the abdomen was performed demonstrating mild ascites, most prominent in left lower quadrant. The left lower quadrant was prepped and draped using maximum sterile barrier technique. 1% lidocaine without epinephrine was administered for local anesthesia. Real-time ultrasonographic guidance was used in passing a micropuncture needle into the fluid collection. A guidewire was advanced into the collection over which a 4 [place] sheath was placed. 120 cc of serous ascites was removed samples were sent for Gram stain and culture.. The catheter was removed and pressure held to achieve hemostasis. A sterile dressing was applied. Impression: Successful ultrasound-guided diagnostic paracentesis.
[2018-08-07] MEDS ORDERED: IV NORMAL SALINE 1000ML BAG 1,000 ML IV PRN ×2 (12:24)
[2018-08-07] MEDS ORDERED: ALBUMIN HUMAN 25% 200 ML IV PRN (12:30)
[2018-08-07] MEDS ORDERED: DIALYSIS PATIENT. MC PRN ×2 (12:30)
[2018-08-07] MEDS: VANCOMYCIN PER PHARMACY MC PRN (12:42)
[2018-08-07 13:05] LABS: BF CLARITY CLEAR; BF COLOR YELLOW; BF MON % 89 %; BF OTHER % 3 %; BF PMN % 8 %; BF RBC COUNT 402 /cmm; BF SOURCE PERITONEAL; BF WBC COUNT 109 /cmm
--- NOTE | 2018-08-07 13:29 | PDOC ---
PROGRESS NOTES Chief Complaint Chief Complaint acute on chronic resp failure with HAP ESRD on HD h/o Infected PD catheter, changed 07/[address] abdomen with bilateral cavitary nodular densities. Radiographic findings are highly suspicious for septic emboli and the source could be infected hemodialysis catheter. recent Staphylococcus bacteremia with persistent positive blood cultures with MSSA history of tobacco use. 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 IR, gi, sx consult, no sx for now cont zosyn and vanco for now. fu bcx taper bipap, NC as needed. chest CT, abd CT done dvt ppx PTOT 4U prbc TRANSFusion cont HD tts ok to eat as per GI may need AC for PE, defer to pulm + HBS Ag, fu with gi ok transfer out of icu History of Present Illness History of Present Illness came for sob x1d anemia ROS: NO Fever, chills, sob or chest pain 08/07: on NC, feels ok, denies chest pain, or gib, got 4u PRBC yesterday in ICU, hb stable. abd ct abnormal, ir got paracentesis. Vitals Vitals Vital Signs Date Time Temp Pulse Resp B/P (MAP) Pulse Ox O2 Delivery O2 Flow Rate FiO2 08/07/18 12:57 94 Room Air 08/07/18 12:00 98.6 116 20 136/80 (98) 98.6 08/07/18 08:03 2.0 Physical Exam Physical Exam GENERAL: Alert and oriented gentleman, not in distress. VITAL SIGNS: Stable, afebrile. HEENT: NAD. NECK: Supple, no JVP, no lymphadenopathy. LUNGS: Clear. HEART: S1, S2 regular. ABDOMEN: Benign. EXTREMITIES: No edema, cyanosis. SKIN: Unremarkable. NEUROLOGICAL: The patient is neurologically intact. General: Alert, Oriented X3, Cooperative, No acute distress Lungs: Crackles Abdomen: Soft, No tenderness, Other (suprapubic cath in with clear urine) Extremities: No clubbing, No cyanosis Skin: No rashes, No breakdown Labs LABS Laboratory Tests Test 08/07/18 04:25 08/07/18 10:40 White Blood Count 9.3 x10^3/uL (4.0-11.0) Red Blood Count 3.19 x10^6/uL (4.30-5.70) Hemoglobin 9.3 g/dL (13.0-17.5) Hematocrit 26.6 % (39.0-53.0) Mean Corpuscular Volume 83 fL (79-100) Mean Corpuscular Hemoglobin 29 pg (25-35) Mean Corpuscular Hemoglobin Concent 35 g/dL (31-37) Red Cell Distribution Width 16.9 % (11.5-14.5) Platelet Count 114 x10^3/uL (140-400) Neutrophils (%) (Auto) 61 % (31-73) Lymphocytes (%) (Auto) 16 % (24-48) Monocytes (%) (Auto) 14 % (0-9) Eosinophils (%) (Auto) 8 % (0-3) Basophils (%) (Auto) 1 % (0-3) Neutrophils # (Auto) 5.7 x10^3uL (1.8-7.7) Lymphocytes # (Auto) 1.5 x10^3/uL (1.0-4.8) Monocytes # (Auto) 1.3 x10^3/uL (0.0-1.1) Eosinophils # (Auto) 0.8 x10^3/uL (0.0-0.7) Basophils # (Auto) 0.1 x10^3/uL (0.0-0.2) Sodium Level 142 mmol/L (136-145) Potassium Level 4.1 mmol/L (3.5-5.1) Chloride Level 103 mmol/L (98-107) Carbon Dioxide Level 30 mmol/L (21-32) Anion Gap 9 (6-14) Blood Urea Nitrogen 44 mg/dL (8-26) Creatinine 6.7 mg/dL (0.7-1.3) Estimated GFR (Cockcroft-Gault) 8.7 Glucose Level 97 mg/dL (70-99) Calcium Level 8.2 mg/dL (8.5-10.1) Procalcitonin 3.38 ng/mL (0.00-0.10) Random Vancomycin Level 24.2 mcg/mL Hepatitis B Core IgM Antibody Nonreactive (Nonreactive) Body Fluid Source Peritoneal Body Fluid Color Yellow Body Fluid Clarity Clear Body Fluid Nucleated Cells 109 /cmm Body Fluid Mononuclear WBCs (%) 89 % Body Fluid Polymorphonuclear Cells 8 % Body Fluid Total RBCs Counted 402 /cmm Body Fluid Other Cells (%) 3 % Assessment and Plan Assessmemt and Plan Problems Medical Problems: (1) Dyspnea Status: Acute (2) Pneumonia Status: Acute Comment Review of Relevant I have reviewed the following items allyson (where applicable) has been applied. Labs Laboratory Tests Test 08/05/18 18:00 08/05/18 18:30 08/05/18 21:07 08/05/18 22:10 White Blood Count 8.6 x10^3/uL (4.0-11.0) Red Blood Count 1.89 x10^6/uL (4.30-5.70) Hemoglobin 5.5 g/dL (13.0-17.5) Hematocrit 16.4 % (39.0-53.0) Mean Corpuscular Volume 87 fL (79-100) Mean Corpuscular Hemoglobin 29 pg (25-35) Mean Corpuscular Hemoglobin Concent 34 g/dL (31-37) Red Cell Distribution Width 15.6 % (11.5-14.5) Platelet Count 174 x10^3/uL (140-400) Neutrophils (%) (Auto) 66 % (31-73) Lymphocytes (%) (Auto) 19 % (24-48) Monocytes (%) (Auto) 13 % (0-9) Eosinophils (%) (Auto) 2 % (0-3) Basophils (%) (Auto) 0 % (0-3) Neutrophils # (Auto) 5.7 x10^3uL (1.8-7.7) Lymphocytes # (Auto) 1.6 x10^3/uL (1.0-4.8) Monocytes # (Auto) 1.1 x10^3/uL (0.0-1.1) Eosinophils # (Auto) 0.2 x10^3/uL (0.0-0.7) Basophils # (Auto) 0.0 x10^3/uL (0.0-0.2) Prothrombin Time 15.7 SEC (11.7-14.0) Prothromb Time International Ratio 1.3 (0.8-1.1) Activated Partial Thromboplast Time 36 SEC (24-38) Sodium Level 139 mmol/L (136-145) Potassium Level 4.0 mmol/L (3.5-5.1) Chloride Level 101 mmol/L (98-107) Carbon Dioxide Level 34 mmol/L (21-32) Anion Gap 4 (6-14) Blood Urea Nitrogen 25 mg/dL (8-26) Creatinine 5.0 mg/dL (0.7-1.3) Estimated GFR (Cockcroft-Gault) 12.2 BUN/Creatinine Ratio 5 (6-20) Glucose Level 105 mg/dL (70-99) Lactic Acid Level 3.7 mmol/L (0.4-2.0) 3.8 mmol/L (0.4-2.0) Calcium Level 8.6 mg/dL (8.5-10.1) Magnesium Level 1.7 mg/dL (1.8-2.4) Total Bilirubin 0.2 mg/dL (0.2-1.0) Aspartate Amino Transf (AST/SGOT) 42 U/L (15-37) Alanine Aminotransferase (ALT/SGPT) 6 U/L (16-63) Alkaline Phosphatase 117 U/L (46-116) Troponin I Quantitative 0.046 ng/mL (0.000-0.055) Total Protein 7.9 g/dL (6.4-8.2) Albumin 2.0 g/dL (3.4-5.0) Albumin/Globulin Ratio 0.3 (1.0-1.7) Stool Occult Blood Negative (NEG) O2 Saturation 86 % (92-99) Arterial Blood pH 7.50 (7.35-7.45) Arterial Blood pCO2 at Patient Temp 36 mmHg (35-46) Arterial Blood pO2 at Patient Temp 54 mmHg (75-108) Arterial Blood HCO3 28 mmol/L (21-28) Arterial Blood Base Excess 4 mmol/L (-3-3) FiO2 40 Nasal Screen MRSA (PCR) Negative (Negative) Test 08/06/18 08:21 08/06/18 09:37 08/07/18 04:25 08/07/18 10:40 O2 Saturation 95 % (92-99) Arterial Blood pH 7.47 (7.35-7.45) Arterial Blood pCO2 at Patient Temp 43 mmHg (35-46) Arterial Blood pO2 at Patient Temp 83 mmHg (75-108) Arterial Blood HCO3 31 mmol/L (21-28) Arterial Blood Base Excess 7 mmol/L (-3-3) FiO2 25 White Blood Count 7.0 x10^3/uL (4.0-11.0) 9.3 x10^3/uL (4.0-11.0) Red Blood Count 2.35 x10^6/uL (4.30-5.70) 3.19 x10^6/uL (4.30-5.70) Hemoglobin 6.8 g/dL (13.0-17.5) 9.3 g/dL (13.0-17.5) Hematocrit 19.6 % (39.0-53.0) 26.6 % (39.0-53.0) Mean Corpuscular Volume 83 fL (79-100) 83 fL (79-100) Mean Corpuscular Hemoglobin 29 pg (25-35) 29 pg (25-35) Mean Corpuscular Hemoglobin Concent 35 g/dL (31-37) 35 g/dL (31-37) Red Cell Distribution Width 17.0 % (11.5-14.5) 16.9 % (11.5-14.5) Platelet Count 120 x10^3/uL (140-400) 114 x10^3/uL (140-400) Neutrophils (%) (Auto) 64 % (31-73) 61 % (31-73) Lymphocytes (%) (Auto) 16 % (24-48) 16 % (24-48) Monocytes (%) (Auto) 13 % (0-9) 14 % (0-9) Eosinophils (%) (Auto) 6 % (0-3) 8 % (0-3) Basophils (%) (Auto) 1 % (0-3) 1 % (0-3) Neutrophils # (Auto) 4.5 x10^3uL (1.8-7.7) 5.7 x10^3uL (1.8-7.7) Lymphocytes # (Auto) 1.1 x10^3/uL (1.0-4.8) 1.5 x10^3/uL (1.0-4.8) Monocytes # (Auto) 0.9 x10^3/uL (0.0-1.1) 1.3 x10^3/uL (0.0-1.1) Eosinophils # (Auto) 0.4 x10^3/uL (0.0-0.7) 0.8 x10^3/uL (0.0-0.7) Basophils # (Auto) 0.1 x10^3/uL (0.0-0.2) 0.1 x10^3/uL (0.0-0.2) Sodium Level 144 mmol/L (136-145) 142 mmol/L (136-145) Potassium Level 4.3 mmol/L (3.5-5.1) 4.1 mmol/L (3.5-5.1) Chloride Level 104 mmol/L (98-107) 103 mmol/L (98-107) Carbon Dioxide Level 33 mmol/L (21-32) 30 mmol/L (21-32) Anion Gap 7 (6-14) 9 (6-14) Blood Urea Nitrogen 33 mg/dL (8-26) 44 mg/dL (8-26) Creatinine 5.8 mg/dL (0.7-1.3) 6.7 mg/dL (0.7-1.3) Estimated GFR (Cockcroft-Gault) 10.2 8.7 BUN/Creatinine Ratio 6 (6-20) Glucose Level 82 mg/dL (70-99) 97 mg/dL (70-99) Lactic Acid Level 1.2 mmol/L (0.4-2.0) Calcium Level 8.3 mg/dL (8.5-10.1) 8.2 mg/dL (8.5-10.1) Total Bilirubin 0.4 mg/dL (0.2-1.0) Aspartate Amino Transf (AST/SGOT) 38 U/L (15-37) Alanine Aminotransferase (ALT/SGPT) 8 U/L (16-63) Alkaline Phosphatase 98 U/L (46-116) Total Protein 6.6 g/dL (6.4-8.2) Albumin 1.7 g/dL (3.4-5.0) Albumin/Globulin Ratio 0.3 (1.0-1.7) Hepatitis B Surface Antigen Reactive (Nonreactive) Hepatitis B Surface Antibody Nonreactive Procalcitonin 3.38 ng/mL (0.00-0.10) Random Vancomycin Level 24.2 mcg/mL Hepatitis B Core IgM Antibody Nonreactive (Nonreactive) Body Fluid Source Peritoneal Body Fluid Color Yellow Body Fluid Clarity Clear Body Fluid Nucleated Cells 109 /cmm Body Fluid Mononuclear WBCs (%) 89 % Body Fluid Polymorphonuclear Cells 8 % Body Fluid Total RBCs Counted 402 /cmm Body Fluid Other Cells (%) 3 % Laboratory Tests Test 08/07/18 04:25 08/07/18 10:40 White Blood Count 9.3 x10^3/uL (4.0-11.0) Red Blood Count 3.19 x10^6/uL (4.30-5.70) Hemoglobin 9.3 g/dL (13.0-17.5) Hematocrit 26.6 % (39.0-53.0) Mean Corpuscular Volume 83 fL (79-100) Mean Corpuscular Hemoglobin 29 pg (25-35) Mean Corpuscular Hemoglobin Concent 35 g/dL (31-37) Red Cell Distribution Width 16.9 % (11.5-14.5) Platelet Count 114 x10^3/uL (140-400) Neutrophils (%) (Auto) 61 % (31-73) Lymphocytes (%) (Auto) 16 % (24-48) Monocytes (%) (Auto) 14 % (0-9) Eosinophils (%) (Auto) 8 % (0-3) Basophils (%) (Auto) 1 % (0-3) Neutrophils # (Auto) 5.7 x10^3uL (1.8-7.7) Lymphocytes # (Auto) 1.5 x10^3/uL (1.0-4.8) Monocytes # (Auto) 1.3 x10^3/uL (0.0-1.1) Eosinophils # (Auto) 0.8 x10^3/uL (0.0-0.7) Basophils # (Auto) 0.1 x10^3/uL (0.0-0.2) Sodium Level 142 mmol/L (136-145) Potassium Level 4.1 mmol/L (3.5-5.1) Chloride Level 103 mmol/L (98-107) Carbon Dioxide Level 30 mmol/L (21-32) Anion Gap 9 (6-14) Blood Urea Nitrogen 44 mg/dL (8-26) Creatinine 6.7 mg/dL (0.7-1.3) Estimated GFR (Cockcroft-Gault) 8.7 Glucose Level 97 mg/dL (70-99) Calcium Level 8.2 mg/dL (8.5-10.1) Procalcitonin 3.38 ng/mL (0.00-0.10) Random Vancomycin Level 24.2 mcg/mL Hepatitis B Core IgM Antibody Nonreactive (Nonreactive) Body Fluid Source Peritoneal Body Fluid Color Yellow Body Fluid Clarity Clear Body Fluid Nucleated Cells 109 /cmm Body Fluid Mononuclear WBCs (%) 89 % Body Fluid Polymorphonuclear Cells 8 % Body Fluid Total RBCs Counted 402 /cmm Body Fluid Other Cells (%) 3 % Microbiology 08/05/18 Blood Culture - Preliminary, Resulted NO GROWTH AFTER 1 DAY Medications Current Medications Albuterol/ Ipratropium (Duoneb) 3 ml 1X ONCE NEB Last administered on at 19:42; Start 08/05/18 at 20:15; Stop 08/05/18 at 20:16; Status DC Lorazepam (Ativan) 0.5 mg 1X ONCE IV Last administered on 08/05/18at 19:47; Start 08/05/18 at 20:15; Stop 08/05/18 at 20:16; Status DC Piperacillin Sod/ Tazobactam Sod 3.375 gm/Sodium Chloride 50 ml @ 100 mls/hr 1X ONCE IV Last administered on 08/05/18at 20:42; Start 08/05/18 at 21:00; Stop 08/05/18 at 21:29; Status DC Vancomycin HCl 1.75 gm/Sodium Chloride 500 ml @ 250 mls/hr 1X ONCE IV Last administered on 08/05/18at 21:21; Start 08/05/18 at 21:00; Stop 08/05/18 at 22:59 ; Status DC Acetaminophen (Tylenol) 650 mg PRN Q4HRS PRN PO FEVER; Start 08/05/18 at 20:15 ; Stop 08/06/18 at 12:38; Status DC Magnesium Oxide (Magnesium Oxide) 400 mg DAILY PO Last administered on at 09:21; Start 08/06/18 at 09:00 Benzonatate (Tessalon Perle) 100 mg 1X ONCE PO Last administered on 08/05/18at 20:42; Start 08/05/18 at 21:00; Stop 08/05/18 at 21:01; Status DC Throat Lozenges (Cepacol Sore Throat Lozenge) 1 breezy PRN Q2HRS PRN PO SORE THROAT; Start 08/05/18 at 20:30 Lorazepam (Ativan) 1 mg 1X ONCE IV Last administered on 08/05/18at 20:43; Start 08/05/18 at 21:00; Stop 08/05/18 at 21:01; Status DC Sodium Chloride 500 ml @ 500 mls/hr 1X ONCE IV Last administered on at 21:20; Start 08/05/18 at 21:00; Stop 08/05/18 at 21:59; Status DC Lorazepam (Ativan) 2 mg PRN Q4HRS PRN IV ANXIETY / AGITATION Last administered on 08/05/18at 23:54; Start 08/05/18 at 23:00 Risperidone (RisperDAL) 2 mg PRN Q12HRS PRN PO ANXIETY / AGITATION Last administered on 08/05/18at 23:53; Start 08/05/18 at 23:00 Furosemide (Lasix) 80 mg 1X ONCE IVP Last administered on 08/06/18at 05:40; Start 08/05/18 at 23:00; Stop 08/05/18 at 23:02; Status DC Dexmedetomidine HCl 200 mcg/ Sodium Chloride 50 ml @ 0 mls/hr CONT PRN IV PER PROTOCOL Last administered on 08/06/18at 06:20; Start 08/05/18 at 23:30 Sodium Chloride 500 ml @ 500 mls/hr 1X PRN PRN IV SEE COMMENTS; Start at 23:30 Atropine Sulfate (ATROPINE 0.5mg SYRINGE) 0.5 mg PRN Q5MIN PRN IV SEE COMMENTS ; Start 08/05/18 at 23:30 Piperacillin Sod/ Tazobactam Sod (Zosyn Per Pharmacy) 1 each PRN DAILY PRN MC SEE COMMENTS; Start 08/06/18 at 03:45 Vancomycin HCl (Vanco Per Pharmacy) 1 each PRN DAILY PRN MC SEE COMMENTS Last administered on 08/07/18at 12:42; Start 08/06/18 at 04:00 Piperacillin Sod/ Tazobactam Sod 2.25 gm/Sodium Chloride 50 ml @ 100 mls/hr Q8HRS IV Last administered on 08/07/18at 06:09; Start 08/06/18 at 06:00 Vancomycin HCl (Vancomycin Trough Level) 1 each 1X ONCE MC ; Start 08/07/18 at 21:30; Stop 08/07/18 at 21:31; Status Cancel Albuterol/ Ipratropium (Duoneb) 3 ml RTQID NEB Last administered on 08/07/18at 12:57; Start 08/06/18 at 08:30 Iohexol (Omnipaque 350 Mg/ml) 85 ml 1X ONCE IV Last administered on 08/06/18at 11:00; Start 08/06/18 at 11:00; Stop 08/06/18 at 11:01; Status DC Info (CONTRAST GIVEN -- Rx MONITORING) 1 each PRN DAILY PRN MC SEE COMMENTS; Start 08/06/18 at 11:15; Stop 08/08/18 at 11:14 Albuterol Sulfate (Ventolin Neb Soln) 2.5 mg PRN Q4HRS PRN NEB SHORTNESS OF BREATH; Start 08/06/18 at 12:30 Acetaminophen (Tylenol) 650 mg PRN Q6HRS PRN PO FEVER; Start 08/06/18 at 12:30 Ondansetron HCl (Zofran) 4 mg PRN Q6HRS PRN IV NAUSEA/VOMITING; Start 08/06/18 at 12:30 Morphine Sulfate (Morphine Sulfate) 2 mg PRN Q2HR PRN IV MODERATE TO SEVERE PAIN; Start 08/06/18 at 12:30 Tramadol HCl (Ultram) 50 mg PRN Q6HRS PRN PO MILD TO MODERATE PAIN; Start 08/06 at 12:30 Hydralazine HCl (Apresoline Inj) 10 mg PRN Q4HRS PRN IVP ELEVATED BP, SEE COMMENTS; Start 08/06/18 at 12:30 Docusate Sodium (Colace) 100 mg PRN DAILY PRN PO CONSTIPATION; Start 08/06/18 at 12:30 Heparin Sodium (Porcine) (Heparin Sodium) 5,000 unit Q8HRS SQ ; Start 08/06/18 at 14:00; Status Cancel Vancomycin HCl (Vancomycin Random Level) 1 each 1X ONCE MC Last administered on 08/07/18at 05:00; Start 08/07/18 at 05:00; Stop 08/07/18 at 05:01; Status DC Heparin Sodium/ Dextrose 500 ml @ 20 mls/hr CONT PRN IV SEE I/O RECORD Last administered on 08/06/18at 14:35; Start 08/06/18 at 13:30; Stop 08/06/18 at 21:07 ; Status DC Heparin Sodium (Porcine) (Heparin Sodium) 1,900 unit PRN Q6HRS PRN IV FOR UFH LEVEL LESS THAN 0.2; Start 08/06/18 at 14:00; Stop 08/07/18 at 12:38; Status DC Heparin Sodium (Porcine) (Heparin Sodium) 950 unit PRN Q6HRS PRN IV FOR UFH LEVEL 0.2 - 0.29; Start 08/06/18 at 14:00; Stop 08/06/18 at 21:07; Status DC Info (Anti-Coagulation Monitoring By Pharmacy) 1 each PRN DAILY PRN MC SEE COMMENTS Last administered on 08/06/18at 13:24; Start 08/06/18 at 13:30; Stop at 21:15; Status DC Heparin Sodium (Porcine) (Heparin Sodium) 5,050 unit 1X ONCE IV Last administered on 08/06/18at 14:47; Start 08/06/18 at 14:45; Stop 08/06/18 at 21:07 ; Status DC Sodium Chloride 1,000 ml @ 1,000 mls/hr Q1H PRN IV hypotension; Start 08/06/18 at 16:04; Stop 08/07/18 at 00:09; Status DC Sodium Chloride 1,000 ml @ 400 mls/hr Q2H30M PRN IV PATENCY; Start 08/06/18 at 16:04; Stop 08/07/18 at 04:03; Status DC Info (PHARMACY MONITORING -- do not chart) 1 each PRN DAILY PRN MC SEE COMMENTS ; Start 08/06/18 at 16:15 Sodium Chloride 1,000 ml @ 1,000 mls/hr Q1H PRN IV hypotension; Start 08/07/18 at 12:24; Stop 08/07/18 at 18:23 Albumin Human 200 ml @ 200 mls/hr 1X PRN PRN IV Hypotension; Start 08/07/18 at 12:30; Stop 08/07/18 at 18:29 Sodium Chloride 1,000 ml @ 400 mls/hr Q2H30M PRN IV PATENCY; Start 08/07/18 at 12:24; Stop 08/08/18 at 00:23 Info (PHARMACY MONITORING -- do not chart) 1 each PRN DAILY PRN MC SEE COMMENTS ; Start 08/07/18 at 12:30; Status UNV Info (PHARMACY MONITORING -- do not chart) 1 each PRN DAILY PRN MC SEE COMMENTS ; Start 08/07/18 at 12:30; Status UNV Vancomycin HCl 500 mg/Sodium Chloride 100 ml @ 100 mls/hr QTUTHSA IV ; Start at 16:00 Lactobacillus Rhamnosus (Culturelle) 1 cap BID PO ; Start 08/07/18 at 21:00 Active Scripts Active Zyvox (Linezolid) 600 Mg Tablet 600 Mg PO BID 28 Days Vitals/I & O Vital Sign - Last 24 Hours 08/06/18 08/06/18 08/06/18 08/06/18 14:00 15:00 16:00 16:04 Temp 97.7 97.7 97.7 97.7 Pulse 110 106 109 Resp 19 20 20 B/P (MAP) 125/72 (89) 126/72 (90) 125/72 (89) Pulse Ox 96 96 95 O2 Delivery Nasal Cannula Nasal Cannula Nasal Cannula Nasal Cannula O2 Flow Rate 2.0 2.0 2.0 1.5 08/06/18 08/06/18 08/06/18 08/06/18 16:43 16:58 17:00 17:18 Temp 97.7 98.0 98.2 97.7 98.0 98.2 Pulse 112 107 110 Resp 18 18 18 B/P (MAP) 125/79 134/73 130/72 (91) Pulse Ox 96 96 O2 Delivery Nasal Cannula Nasal Cannula O2 Flow Rate 2.0 1.5 08/06/18 08/06/18 08/06/18 08/06/18 18:00 19:00 19:40 19:56 Temp 98.4 97.7 98.4 97.7 Pulse 114 107 102 Resp 18 19 16 B/P (MAP) 133/74 (93) 139/76 (97) 141/77 Pulse Ox 96 91 90 O2 Delivery Nasal Cannula Nasal Cannula Room Air O2 Flow Rate 2.0 2.0 08/06/18 08/06/18 08/06/18 08/06/18 20:00 20:00 21:00 22:00 Temp 97.7 97.7 Pulse 105 105 112 Resp B/P (MAP) 129/68 (88) 124/68 (86) 135/68 (90) Pulse Ox 94 98 94 O2 Delivery Room Air Room Air Room Air Room Air 08/06/18 08/06/18 08/06/18 08/06/18 22:13 22:28 23:00 23:28 Temp 97.9 98.4 98.0 97.9 98.4 98.0 Pulse 110 109 112 110 Resp B/P (MAP) 140/80 (100) 139/74 (95) 141/78 (99) 141/78 (99) Pulse Ox 95 94 95 98 O2 Delivery Room Air Room Air Room Air Room Air 08/07/18 08/07/18 08/07/18 08/07/18 00:00 00:00 00:28 01:00 Temp 97.4 98.6 97.4 98.6 Pulse 111 110 112 Resp B/P (MAP) 139/79 (99) 137/79 (98) 143/79 (100) Pulse Ox 92 93 93 O2 Delivery Room Air Room Air Room Air Room Air 08/07/18 08/07/18 08/07/18 08/07/18 01:28 02:00 03:00 04:00 Temp 98.5 98.7 98.7 98.5 98.7 98.7 Pulse 113 112 110 112 Resp B/P (MAP) 134/80 (98) 134/75 (94) 147/81 (103) 135/78 (97) Pulse Ox 93 90 94 92 O2 Delivery Room Air Room Air Room Air Nasal Cannula O2 Flow Rate 2.0 08/07/18 08/07/18 08/07/18 08/07/18 04:00 05:00 06:00 07:00 Temp 98.4 98.4 Pulse 117 113 115 Resp B/P (MAP) 160/86 (110) 145/81 (102) 140/80 (100) Pulse Ox 96 94 94 O2 Delivery Room Air Nasal Cannula Nasal Cannula Nasal Cannula O2 Flow Rate 2.0 2.0 2.0 08/07/18 08/07/18 08/07/18 08/07/18 07:49 08:03 08:56 09:00 Pulse 112 115 Resp 22 22 B/P (MAP) 140/80 (100) 160/81 (107) Pulse Ox 96 92 95 O2 Delivery Nasal Cannula Nasal Cannula Room Air Room Air O2 Flow Rate 2.0 2.0 08/07/18 08/07/18 08/07/18 08/07/18 10:00 11:00 12:00 12:00 Temp 98.6 98.6 Pulse 116 92 116 Resp 22 20 20 B/P (MAP) 146/80 (102) 148/85 (106) 136/80 (98) Pulse Ox 95 94 93 O2 Delivery Room Air Room Air Room Air Room Air 08/07/18 12:57 Pulse Ox 94 O2 Delivery Room Air Intake and Output 08/06/18 08/06/18 08/07/18 15:01 23:01 07:01 Intake Total 435 ml 836 ml 536 ml Output Total 90 ml 40 ml 70 ml Balance 345 ml 796 ml 466 ml DEIDRA ADKINS MD Aug 07, 2018 13:29
[2018-08-07] MEDS ORDERED: VANCOMYCIN 500 MG in IV NORMAL SALINE 100ML 100 ML IV SCH (16:00)
[2018-08-07] MEDS: LACTOBACILLUS RHAMNOSUS GG 1 CAPSULE. PO SCH (21:16)
[2018-08-08] MEDS: risperiDONE 1 MG TABLET. PO PRN (02:46)
[2018-08-08 03:00] VITALS: BP 130/77
[2018-08-08 04:41] LABS: BASO # 0.1 x10^3/uL (0.0-0.2); BASO % 1 % (0-3); EOS # 0.9 x10^3/uL (0.0-0.7); EOS % 9 % (0-3); HEMATOCRIT 25.1 % (39.0-53.0); HEMOGLOBIN 8.5 g/dL (13.0-17.5); LYMPH # 1.3 x10^3/uL (1.0-4.8); LYMPH % 13 % (24-48); MEAN CORPUSCULAR HEMOGLOBIN 29 pg (25-35); MEAN CORPUSCULAR HGB CONC 34 g/dL (31-37); MEAN CORPUSCULAR VOLUME 85 fL (79-100); MONO % 20 % (0-9); NEUT % 58 % (31-73); PLATELET COUNT 100 x10^3/uL (140-400); RED BLOOD COUNT 2.95 x10^6/uL (4.30-5.70); WHITE BLOOD COUNT 10.4 x10^3/uL (4.0-11.0)
[2018-08-08] MEDS: PIPERACILLIN/TAZOBACTAM 2.25 GM in IV NORMAL SALINE 50ML 50 ML IV SCH (05:45)
[2018-08-08 05:57] LABS: CALCIUM 8.2 mg/dL (8.5-10.1); CREATININE 4.8 mg/dL (0.7-1.3); GFR 12.7; POTASSIUM 3.8 mmol/L (3.5-5.1)
[2018-08-08] MEDS: IPRATRPIUM/ALBUTEROL 0.5/2.5MG 3 ML NEBU. NEB SCH ×3 (07:41→15:29)
[2018-08-08 07:49] VITALS: BP 124/80
--- NOTE | 2018-08-08 08:51 | PDOC ---
PULMONARY PROGRESS NOTES Subjective PT NOT MORE SOA HE DENIES ANY SYNCOPAL EPISODES Vitals Vital Signs Date Time Temp Pulse Resp B/P (MAP) Pulse Ox O2 Delivery O2 Flow Rate FiO2 08/08/18 07:49 98.2 19 124/80 (95) 90 Room Air 98.2 08/08/18 03:00 121 08/07/18 17:19 2.0 ROS: No Nausea, No Chest Pain, No Abdominal Pain, No Increase Cough General: Alert, No acute distress HEENT: Other Lungs: Crackles Cardiovascular: S1, S2, Other (MURMUR AND RUB) Abdomen: Soft, Non-tender Neuro Exam: Alert Extremities: No Edema Skin: Warm Labs Laboratory Tests Test 08/06/18 09:37 08/07/18 04:25 08/07/18 10:40 08/08/18 03:20 White Blood Count 7.0 x10^3/uL (4.0-11.0) 9.3 x10^3/uL (4.0-11.0) 10.4 x10^3/uL (4.0-11.0) Red Blood Count 2.35 x10^6/uL (4.30-5.70) 3.19 x10^6/uL (4.30-5.70) 2.95 x10^6/uL (4.30-5.70) Hemoglobin 6.8 g/dL (13.0-17.5) 9.3 g/dL (13.0-17.5) 8.5 g/dL (13.0-17.5) Hematocrit 19.6 % (39.0-53.0) 26.6 % (39.0-53.0) 25.1 % (39.0-53.0) Mean Corpuscular Volume 83 fL (79-100) 83 fL (79-100) 85 fL (79-100) Mean Corpuscular Hemoglobin 29 pg (25-35) 29 pg (25-35) 29 pg (25-35) Mean Corpuscular Hemoglobin Concent 35 g/dL (31-37) 35 g/dL (31-37) 34 g/dL (31-37) Red Cell Distribution Width 17.0 % (11.5-14.5) 16.9 % (11.5-14.5) 17.0 % (11.5-14.5) Platelet Count 120 x10^3/uL (140-400) 114 x10^3/uL (140-400) 100 x10^3/uL (140-400) Neutrophils (%) (Auto) 64 % (31-73) 61 % (31-73) 58 % (31-73) Lymphocytes (%) (Auto) 16 % (24-48) 16 % (24-48) 13 % (24-48) Monocytes (%) (Auto) 13 % (0-9) 14 % (0-9) 20 % (0-9) Eosinophils (%) (Auto) 6 % (0-3) 8 % (0-3) 9 % (0-3) Basophils (%) (Auto) 1 % (0-3) 1 % (0-3) 1 % (0-3) Neutrophils # (Auto) 4.5 x10^3uL (1.8-7.7) 5.7 x10^3uL (1.8-7.7) 6.0 x10^3uL (1.8-7.7) Lymphocytes # (Auto) 1.1 x10^3/uL (1.0-4.8) 1.5 x10^3/uL (1.0-4.8) 1.3 x10^3/uL (1.0-4.8) Monocytes # (Auto) 0.9 x10^3/uL (0.0-1.1) 1.3 x10^3/uL (0.0-1.1) 2.0 x10^3/uL (0.0-1.1) Eosinophils # (Auto) 0.4 x10^3/uL (0.0-0.7) 0.8 x10^3/uL (0.0-0.7) 0.9 x10^3/uL (0.0-0.7) Basophils # (Auto) 0.1 x10^3/uL (0.0-0.2) 0.1 x10^3/uL (0.0-0.2) 0.1 x10^3/uL (0.0-0.2) Sodium Level 144 mmol/L (136-145) 142 mmol/L (136-145) 139 mmol/L (136-145) Potassium Level 4.3 mmol/L (3.5-5.1) 4.1 mmol/L (3.5-5.1) 3.8 mmol/L (3.5-5.1) Chloride Level 104 mmol/L (98-107) 103 mmol/L (98-107) 102 mmol/L (98-107) Carbon Dioxide Level 33 mmol/L (21-32) 30 mmol/L (21-32) 30 mmol/L (21-32) Anion Gap 7 (6-14) 9 (6-14) 7 (6-14) Blood Urea Nitrogen 33 mg/dL (8-26) 44 mg/dL (8-26) 24 mg/dL (8-26) Creatinine 5.8 mg/dL (0.7-1.3) 6.7 mg/dL (0.7-1.3) 4.8 mg/dL (0.7-1.3) Estimated GFR (Cockcroft-Gault) 10.2 8.7 12.7 BUN/Creatinine Ratio 6 (6-20) Glucose Level 82 mg/dL (70-99) 97 mg/dL (70-99) 95 mg/dL (70-99) Lactic Acid Level 1.2 mmol/L (0.4-2.0) Calcium Level 8.3 mg/dL (8.5-10.1) 8.2 mg/dL (8.5-10.1) 8.2 mg/dL (8.5-10.1) Total Bilirubin 0.4 mg/dL (0.2-1.0) Aspartate Amino Transf (AST/SGOT) 38 U/L (15-37) Alanine Aminotransferase (ALT/SGPT) 8 U/L (16-63) Alkaline Phosphatase 98 U/L (46-116) Total Protein 6.6 g/dL (6.4-8.2) Albumin 1.7 g/dL (3.4-5.0) Albumin/Globulin Ratio 0.3 (1.0-1.7) Hepatitis B Surface Antigen Reactive (Nonreactive) Hepatitis B Surface Antibody Nonreactive Procalcitonin 3.38 ng/mL (0.00-0.10) Random Vancomycin Level 24.2 mcg/mL Hepatitis B Core Total Antibody Negative (Negative) Hepatitis B Core IgM Antibody Nonreactive (Nonreactive) Body Fluid Source Peritoneal Body Fluid Color Yellow Body Fluid Clarity Clear Body Fluid Nucleated Cells 109 /cmm Body Fluid Mononuclear WBCs (%) 89 % Body Fluid Polymorphonuclear Cells 8 % Body Fluid Total RBCs Counted 402 /cmm Body Fluid Other Cells (%) 3 % Laboratory Tests Test 08/07/18 10:40 08/08/18 03:20 Body Fluid Source Peritoneal Body Fluid Color Yellow Body Fluid Clarity Clear Body Fluid Nucleated Cells 109 /cmm Body Fluid Mononuclear WBCs (%) 89 % Body Fluid Polymorphonuclear Cells 8 % Body Fluid Total RBCs Counted 402 /cmm Body Fluid Other Cells (%) 3 % White Blood Count 10.4 x10^3/uL (4.0-11.0) Red Blood Count 2.95 x10^6/uL (4.30-5.70) Hemoglobin 8.5 g/dL (13.0-17.5) Hematocrit 25.1 % (39.0-53.0) Mean Corpuscular Volume 85 fL (79-100) Mean Corpuscular Hemoglobin 29 pg (25-35) Mean Corpuscular Hemoglobin Concent 34 g/dL (31-37) Red Cell Distribution Width 17.0 % (11.5-14.5) Platelet Count 100 x10^3/uL (140-400) Neutrophils (%) (Auto) 58 % (31-73) Lymphocytes (%) (Auto) 13 % (24-48) Monocytes (%) (Auto) 20 % (0-9) Eosinophils (%) (Auto) 9 % (0-3) Basophils (%) (Auto) 1 % (0-3) Neutrophils # (Auto) 6.0 x10^3uL (1.8-7.7) Lymphocytes # (Auto) 1.3 x10^3/uL (1.0-4.8) Monocytes # (Auto) 2.0 x10^3/uL (0.0-1.1) Eosinophils # (Auto) 0.9 x10^3/uL (0.0-0.7) Basophils # (Auto) 0.1 x10^3/uL (0.0-0.2) Sodium Level 139 mmol/L (136-145) Potassium Level 3.8 mmol/L (3.5-5.1) Chloride Level 102 mmol/L (98-107) Carbon Dioxide Level 30 mmol/L (21-32) Anion Gap 7 (6-14) Blood Urea Nitrogen 24 mg/dL (8-26) Creatinine 4.8 mg/dL (0.7-1.3) Estimated GFR (Cockcroft-Gault) 12.7 Glucose Level 95 mg/dL (70-99) Calcium Level 8.2 mg/dL (8.5-10.1) Medications Active Scripts Medications Dose Route/Sig Max Daily Dose Days Date Category Zyvox (Linezolid) 600 Mg Tablet 600 Mg PO BID 07/13/18 Rx Impression . MPRESSION: 1. Acute hypoxic respiratory failure multifactorial 2. Abnormal chest x-ray with bilateral interstitial 3. Previous echo with normal ejection fraction of 60%. 4. History of prior thoracentesis. 5. End-stage renal disease, on hemodialysis. 6. PE NEGATIVE VENOUS DOPPLER 7. Acute on chronic anemia with a hemoglobin of 5.5 present on admission, 8. Underlying chronic obstructive pulmonary disease with unknown FEV1. 9. h/o Recent cavitary pneumonia, septic emboli 10. Recent staph bacteremia Plan . POSSIBLE HOME IN AM ANTICOAGULATION ONLY IF OK WITH GI ANTICOAGULANT D/C SEC TO RISK OF BLEED SEE DR SUSANNAH WATT ANTIBX PER ID D/W CAYDEN FRANKLIN MD Aug 08, 2018 08:51
[2018-08-08] MEDS: MAGNESIUM OXIDE 400 MG TABLET PO SCH (08:59)
[2018-08-08] MEDS: LACTOBACILLUS RHAMNOSUS GG 1 CAPSULE. PO SCH (09:00)
--- NOTE | 2018-08-08 10:18 | PDOC2 ---
CARDIAC CONSULT DATE OF CONSULT Date of Consult DATE: 08/08/18 TIME: 09:54 REASON FOR CONSULT Reason for Consult: Possible recurrent endocarditis REFERRING PHYSICIAN Referring Physician: Dr. Villalobos SOURCE Source: Chart review, Patient HISTORY OF PRESENT ILLNESS HISTORY OF PRESENT ILLNESS This is a 53 yo male who presented secondary to shortness of breath and fatigue. SOA has been progressive over the last couple of day. Non-productive cough present. Denies any fevers, chest pain, diaphoresis, or nausea/vomiting. Initial labs with hgb of 5.5. 4 units were transfused. BC negative so far. Patient was treated last month for high grade MSSA bacteremia/sepsis which was thought to be due to exposed hemodialysis catheter, which was replaced 06/28/18. CT of the chest showed bilateral cavitary nodular densities, which were specious for septic emboli. RADHA was performed 07/10/19, which was negative for vegetation. He underwent diagnostic thoracentesis as well. PAST MEDICAL HISTORY Cardiovascular: No pertinent hx Pulmonary: COPD, Other (possible septic emboli ) CENTRAL NERVOUS SYSTEM: Other (no pertinent hx) GI: No pertinent hx Heme/Onc: Anemia NOS Psych: No pertinent hx Rheumatologic: No pertinent hx Infectious disease: Other (MSSA bacteremia ) ENT: No pertinent hx Renal/: Chronic renal failure (on HD), UTI, Other (neurogenic bladder, hydronephrosis) Endocrine: No pertinent hx Dermatology: No pertinent hx PAST SURGICAL HISTORY Past Surgical History suprapubic catheter, nephrostomy tubes, ureteral stent placement/removal, thoracentesis SOCIAL HISTORY Smoke: Quit ALCOHOL: other (in past, nothing > 30 years) Drugs: None Lives: with Family CURRENT MEDICATIONS CURRENT MEDICATIONS Current Medications Medications (Trade) Dose Ordered Sig/Kevin Route PRN Reason Start Time Stop Time Status Last Admin Dose Admin Vancomycin HCl 500 mg/Sodium Chloride 100 ml @ 100 mls/hr QTUTHSA IV 08/07/18 16:00 08/07/18 17:37 Lactobacillus Rhamnosus (Culturelle) 1 cap BID PO 08/07/18 21:00 08/08/18 09:00 ALLERGIES ALLERGIES: Coded Allergies: No Known Drug Allergies (Unverified , 01/04/18) ROS Review of System 14 point ROS conducted with pertinent positives noted above in HPI. PHYSICAL EXAM General: Alert, Oriented X3, Cooperative, No acute distress HEENT: Atraumatic, Mucous membr. moist/pink Heart: Regular rate, Normal S1, Normal S2, Other Abdomen: No tenderness Extremities: No edema, Normal pulses Skin: No significant lesion Neuro: Normal speech, Sensation intact Psych/Mental Status: Mental status NL MUSCULOSKELETAL: No deformity VITALS VITALS Vital Signs Date Time Temp Pulse Resp B/P (MAP) Pulse Ox O2 Delivery O2 Flow Rate FiO2 08/08/18 07:49 98.2 19 124/80 (95) 90 Room Air 98.2 08/08/18 03:00 121 08/07/18 17:19 2.0 LABS Lab: Laboratory Tests Test 08/07/18 10:40 08/08/18 03:20 Body Fluid Source Peritoneal Body Fluid Color Yellow Body Fluid Clarity Clear Body Fluid Nucleated Cells 109 /cmm Body Fluid Mononuclear WBCs (%) 89 % Body Fluid Polymorphonuclear Cells 8 % Body Fluid Total RBCs Counted 402 /cmm Body Fluid Other Cells (%) 3 % White Blood Count 10.4 x10^3/uL (4.0-11.0) Red Blood Count 2.95 x10^6/uL (4.30-5.70) Hemoglobin 8.5 g/dL (13.0-17.5) Hematocrit 25.1 % (39.0-53.0) Mean Corpuscular Volume 85 fL (79-100) Mean Corpuscular Hemoglobin 29 pg (25-35) Mean Corpuscular Hemoglobin Concent 34 g/dL (31-37) Red Cell Distribution Width 17.0 % (11.5-14.5) Platelet Count 100 x10^3/uL (140-400) Neutrophils (%) (Auto) 58 % (31-73) Lymphocytes (%) (Auto) 13 % (24-48) Monocytes (%) (Auto) 20 % (0-9) Eosinophils (%) (Auto) 9 % (0-3) Basophils (%) (Auto) 1 % (0-3) Neutrophils # (Auto) 6.0 x10^3uL (1.8-7.7) Lymphocytes # (Auto) 1.3 x10^3/uL (1.0-4.8) Monocytes # (Auto) 2.0 x10^3/uL (0.0-1.1) Eosinophils # (Auto) 0.9 x10^3/uL (0.0-0.7) Basophils # (Auto) 0.1 x10^3/uL (0.0-0.2) Sodium Level 139 mmol/L (136-145) Potassium Level 3.8 mmol/L (3.5-5.1) Chloride Level 102 mmol/L (98-107) Carbon Dioxide Level 30 mmol/L (21-32) Anion Gap 7 (6-14) Blood Urea Nitrogen 24 mg/dL (8-26) Creatinine 4.8 mg/dL (0.7-1.3) Estimated GFR (Cockcroft-Gault) 12.7 Glucose Level 95 mg/dL (70-99) Calcium Level 8.2 mg/dL (8.5-10.1) ECHOCARDIOGRAM ECHOCARDIOGRAM <Conclusion> The left ventricular systolic function is normal. The Ejection Fraction is 60%. There is normal LV segmental wall motion. Trace mitral regurgitation. Trace tricuspid regurgitation. The PA pressure was estimated at 28 mmHg. There is no evidence of significant pericardial effusion. DATE: 07/02/18 1629 RADHA <Conclusion> The left ventricular systolic function is normal and the ejection fraction is within normal range. The Ejection Fraction is 55-60%. There is normal LV segmental wall motion. The IVC is normal in size and collapses >50% with inspiration. There is a catheter noted in the SVC without obvious evidence of vegetation or thrombus. No evidence of vegetation on the valves. DATE: 07/10/18 1025 ASSESSMENT/PLAN ASSESSMENT/PLAN 1. Acute on chronic respiratory failure; multifactorial given profound anemia, HF, and COPD. improved. continue as per pulmonary 2. Acute diastolic HF; LVEF 55-60%. improved with diuresis. now clinically compensated 3. Acute on chronic anemia; s/p transfusion x4. Hgb stable 4. Lactic acidosis; resolved. 5. ESRD on HD; fluid offloading/management via HD as per nephrology. 6. Recent MSSA bacteremia/sepsis; BC negative this far. Afebrile. Limited echo showed no obvious intracardiac vegetation or thrombus. If clinical suspicion high, consider RADHA. as per ID 7. Recent cavitary pneumonia; ? septic emboli 8. Hemoperitoneum; s/o diagnostic paracentesis. NOEMI BARR APRN Aug 08, 2018 10:18
--- NOTE | 2018-08-08 10:33 | PDOC ---
SURGICAL PROGRESS NOTE Subjective Pt out of room cont supportive care. Vital Signs Vital Signs Date Time Temp Pulse Resp B/P (MAP) Pulse Ox O2 Delivery O2 Flow Rate FiO2 08/08/18 07:49 98.2 19 124/80 (95) 90 Room Air 98.2 08/08/18 03:00 121 08/07/18 17:19 2.0 I&O Intake and Output 08/08/18 07:01 Intake Total 2130 ml Output Total 875 ml Balance 1255 ml Intake Oral 2030 ml IV Total 100 ml Output Urine Total 875 ml Labs Laboratory Tests Test 08/07/18 04:25 08/07/18 10:40 08/08/18 03:20 White Blood Count 9.3 x10^3/uL (4.0-11.0) 10.4 x10^3/uL (4.0-11.0) Red Blood Count 3.19 x10^6/uL (4.30-5.70) 2.95 x10^6/uL (4.30-5.70) Hemoglobin 9.3 g/dL (13.0-17.5) 8.5 g/dL (13.0-17.5) Hematocrit 26.6 % (39.0-53.0) 25.1 % (39.0-53.0) Mean Corpuscular Volume 83 fL (79-100) 85 fL (79-100) Mean Corpuscular Hemoglobin 29 pg (25-35) 29 pg (25-35) Mean Corpuscular Hemoglobin Concent 35 g/dL (31-37) 34 g/dL (31-37) Red Cell Distribution Width 16.9 % (11.5-14.5) 17.0 % (11.5-14.5) Platelet Count 114 x10^3/uL (140-400) 100 x10^3/uL (140-400) Neutrophils (%) (Auto) 61 % (31-73) 58 % (31-73) Lymphocytes (%) (Auto) 16 % (24-48) 13 % (24-48) Monocytes (%) (Auto) 14 % (0-9) 20 % (0-9) Eosinophils (%) (Auto) 8 % (0-3) 9 % (0-3) Basophils (%) (Auto) 1 % (0-3) 1 % (0-3) Neutrophils # (Auto) 5.7 x10^3uL (1.8-7.7) 6.0 x10^3uL (1.8-7.7) Lymphocytes # (Auto) 1.5 x10^3/uL (1.0-4.8) 1.3 x10^3/uL (1.0-4.8) Monocytes # (Auto) 1.3 x10^3/uL (0.0-1.1) 2.0 x10^3/uL (0.0-1.1) Eosinophils # (Auto) 0.8 x10^3/uL (0.0-0.7) 0.9 x10^3/uL (0.0-0.7) Basophils # (Auto) 0.1 x10^3/uL (0.0-0.2) 0.1 x10^3/uL (0.0-0.2) Sodium Level 142 mmol/L (136-145) 139 mmol/L (136-145) Potassium Level 4.1 mmol/L (3.5-5.1) 3.8 mmol/L (3.5-5.1) Chloride Level 103 mmol/L (98-107) 102 mmol/L (98-107) Carbon Dioxide Level 30 mmol/L (21-32) 30 mmol/L (21-32) Anion Gap 9 (6-14) 7 (6-14) Blood Urea Nitrogen 44 mg/dL (8-26) 24 mg/dL (8-26) Creatinine 6.7 mg/dL (0.7-1.3) 4.8 mg/dL (0.7-1.3) Estimated GFR (Cockcroft-Gault) 8.7 12.7 Glucose Level 97 mg/dL (70-99) 95 mg/dL (70-99) Calcium Level 8.2 mg/dL (8.5-10.1) 8.2 mg/dL (8.5-10.1) Procalcitonin 3.38 ng/mL (0.00-0.10) Random Vancomycin Level 24.2 mcg/mL Hepatitis B Core Total Antibody Negative (Negative) Hepatitis B Core IgM Antibody Nonreactive (Nonreactive) Body Fluid Source Peritoneal Body Fluid Color Yellow Body Fluid Clarity Clear Body Fluid Nucleated Cells 109 /cmm Body Fluid Mononuclear WBCs (%) 89 % Body Fluid Polymorphonuclear Cells 8 % Body Fluid Total RBCs Counted 402 /cmm Body Fluid Other Cells (%) 3 % Laboratory Tests Test 08/07/18 10:40 08/08/18 03:20 Body Fluid Source Peritoneal Body Fluid Color Yellow Body Fluid Clarity Clear Body Fluid Nucleated Cells 109 /cmm Body Fluid Mononuclear WBCs (%) 89 % Body Fluid Polymorphonuclear Cells 8 % Body Fluid Total RBCs Counted 402 /cmm Body Fluid Other Cells (%) 3 % White Blood Count 10.4 x10^3/uL (4.0-11.0) Red Blood Count 2.95 x10^6/uL (4.30-5.70) Hemoglobin 8.5 g/dL (13.0-17.5) Hematocrit 25.1 % (39.0-53.0) Mean Corpuscular Volume 85 fL (79-100) Mean Corpuscular Hemoglobin 29 pg (25-35) Mean Corpuscular Hemoglobin Concent 34 g/dL (31-37) Red Cell Distribution Width 17.0 % (11.5-14.5) Platelet Count 100 x10^3/uL (140-400) Neutrophils (%) (Auto) 58 % (31-73) Lymphocytes (%) (Auto) 13 % (24-48) Monocytes (%) (Auto) 20 % (0-9) Eosinophils (%) (Auto) 9 % (0-3) Basophils (%) (Auto) 1 % (0-3) Neutrophils # (Auto) 6.0 x10^3uL (1.8-7.7) Lymphocytes # (Auto) 1.3 x10^3/uL (1.0-4.8) Monocytes # (Auto) 2.0 x10^3/uL (0.0-1.1) Eosinophils # (Auto) 0.9 x10^3/uL (0.0-0.7) Basophils # (Auto) 0.1 x10^3/uL (0.0-0.2) Sodium Level 139 mmol/L (136-145) Potassium Level 3.8 mmol/L (3.5-5.1) Chloride Level 102 mmol/L (98-107) Carbon Dioxide Level 30 mmol/L (21-32) Anion Gap 7 (6-14) Blood Urea Nitrogen 24 mg/dL (8-26) Creatinine 4.8 mg/dL (0.7-1.3) Estimated GFR (Cockcroft-Gault) 12.7 Glucose Level 95 mg/dL (70-99) Calcium Level 8.2 mg/dL (8.5-10.1) Problem List Problems Medical Problems: (1) Dyspnea Status: Acute (2) Pneumonia Status: Acute THAD PERRIN MD Aug 08, 2018 10:33
--- NOTE | 2018-08-08 10:45 | PDOC ---
Infectious Disease Note Subjective Subjective pt is feeling better ROS ROS no n/v/d/sob Vital Sign Vital Signs Vital Signs Date Time Temp Pulse Resp B/P (MAP) Pulse Ox O2 Delivery O2 Flow Rate FiO2 08/08/18 07:49 98.2 19 124/80 (95) 90 Room Air 98.2 08/08/18 03:00 121 08/07/18 17:19 2.0 Physical Exam PHYSICAL EXAM GENERAL: Alert and oriented gentleman, not in distress. VITAL SIGNS: Stable, afebrile. HEENT: NAD. NECK: Supple, no JVP, no lymphadenopathy. LUNGS: Clear. HEART: S1, S2 regular. ABDOMEN: Benign. EXTREMITIES: No edema, cyanosis. SKIN: Unremarkable. NEUROLOGICAL: The patient is neurologically intact. Labs Lab Laboratory Tests Test 08/08/18 03:20 White Blood Count 10.4 x10^3/uL (4.0-11.0) Red Blood Count 2.95 x10^6/uL (4.30-5.70) Hemoglobin 8.5 g/dL (13.0-17.5) Hematocrit 25.1 % (39.0-53.0) Mean Corpuscular Volume 85 fL (79-100) Mean Corpuscular Hemoglobin 29 pg (25-35) Mean Corpuscular Hemoglobin Concent 34 g/dL (31-37) Red Cell Distribution Width 17.0 % (11.5-14.5) Platelet Count 100 x10^3/uL (140-400) Neutrophils (%) (Auto) 58 % (31-73) Lymphocytes (%) (Auto) 13 % (24-48) Monocytes (%) (Auto) 20 % (0-9) Eosinophils (%) (Auto) 9 % (0-3) Basophils (%) (Auto) 1 % (0-3) Neutrophils # (Auto) 6.0 x10^3uL (1.8-7.7) Lymphocytes # (Auto) 1.3 x10^3/uL (1.0-4.8) Monocytes # (Auto) 2.0 x10^3/uL (0.0-1.1) Eosinophils # (Auto) 0.9 x10^3/uL (0.0-0.7) Basophils # (Auto) 0.1 x10^3/uL (0.0-0.2) Sodium Level 139 mmol/L (136-145) Potassium Level 3.8 mmol/L (3.5-5.1) Chloride Level 102 mmol/L (98-107) Carbon Dioxide Level 30 mmol/L (21-32) Anion Gap 7 (6-14) Blood Urea Nitrogen 24 mg/dL (8-26) Creatinine 4.8 mg/dL (0.7-1.3) Estimated GFR (Cockcroft-Gault) 12.7 Glucose Level 95 mg/dL (70-99) Calcium Level 8.2 mg/dL (8.5-10.1) Micro Microbiology 08/05/18 Blood Culture - Preliminary, Resulted NO GROWTH AFTER 1 DAY Objective Assessment Lactic acidosis Respiratory failure COPD CHF/Pulmonary infiltrate ESRD Plan Plan of Care vanc and zosyn,,, change back to cefazolin , need til 08/21 check cultures,, neg so far supportive care ct noted CHAPIN VALERIO MD Aug 08, 2018 10:45
--- NOTE | 2018-08-08 10:48 | PDOC ---
Subjective: Subjective: No GI complaints. Objective: Objective: No GI concerns per RN. Vital Signs: Vital Signs Date Time Temp Pulse Resp B/P (MAP) Pulse Ox O2 Delivery O2 Flow Rate FiO2 08/08/18 07:49 98.2 19 124/80 (95) 90 Room Air 98.2 08/08/18 03:00 121 08/07/18 17:19 2.0 Labs: Laboratory Tests Test 08/08/18 03:20 White Blood Count 10.4 x10^3/uL Red Blood Count 2.95 x10^6/uL Hemoglobin 8.5 g/dL Hematocrit 25.1 % Mean Corpuscular Volume 85 fL Mean Corpuscular Hemoglobin 29 pg Mean Corpuscular Hemoglobin Concent 34 g/dL Red Cell Distribution Width 17.0 % Platelet Count 100 x10^3/uL Neutrophils (%) (Auto) 58 % Lymphocytes (%) (Auto) 13 % Monocytes (%) (Auto) 20 % Eosinophils (%) (Auto) 9 % Basophils (%) (Auto) 1 % Neutrophils # (Auto) 6.0 x10^3uL Lymphocytes # (Auto) 1.3 x10^3/uL Monocytes # (Auto) 2.0 x10^3/uL Eosinophils # (Auto) 0.9 x10^3/uL Basophils # (Auto) 0.1 x10^3/uL Sodium Level 139 mmol/L Potassium Level 3.8 mmol/L Chloride Level 102 mmol/L Carbon Dioxide Level 30 mmol/L Anion Gap 7 Blood Urea Nitrogen 24 mg/dL Creatinine 4.8 mg/dL Estimated GFR (Cockcroft-Gault) 12.7 Glucose Level 95 mg/dL Calcium Level 8.2 mg/dL BLOOD CULTURE Preliminary NO GROWTH AFTER 2 DAYS PE: GEN: NAD, was sleeping LUNGS: CTAB HEART: RRR ABD: S/ND/NT NEURO/PSYCH: A & O 3 A/P: Resp failure (improved), ESRD on HD Abnormal chest and abd imaging - concern for hemoperitoneum ---> serous fluid on paracentesis Chronic anemia - stable Hep Bs Ag + ---> ?false positive (core total Ab negative) -- Stable GI-cooper ERINN HOBSON Aug 08, 2018 10:47
[2018-08-08 11:00] VITALS: BP 119/78
--- NOTE | 2018-08-08 11:08 | CARD ---
MR#: [id number] Date of Study: 08/08/2018 Ordering Physician: SANJEEV PASTOR, Referring Physician: LISA DIOP, Tech: Ludmila Rodriguez JUDD APPROVED REPORT EXAM: LIMITED Two-dimensional echocardiogram Other Information Quality : Good INDICATION Infection:Rule out subacute bacterial endocarditis 2D DIMENSIONS RVDd1.7 (2.9-3.5cm)Left Atrium(2D)3.4 (1.6-4.0cm) IVSd1.0 (0.7-1.1cm)Aortic Root(2D)2.5 (2.0-3.7cm) LVDd5.6 (3.9-5.9cm)PWd1.0 (0.7-1.1cm) LVDs4.0 (2.5-4.0cm)FS (%) 25.0 % SV82.3 mlLVEF(%)50.0 (>50%) LEFT VENTRICLE Left ventricle systolic function is normal. The Ejection Fraction is 55%. RIGHT VENTRICLE The right ventricle is normal size. The right ventricular systolic function is normal. ATRIA The left atrium size is normal. The right atrium size is normal. The interatrial septum is intact wit h no evidence for an atrial septal defect or patent foramen ovale as noted on 2-D or Doppler imaging. AORTIC VALVE The aortic valve is normal in structure and function. There is no aortic valvular vegetation. MITRAL VALVE There is no evidence of mitral valve prolapse. TRICUSPID VALVE The tricuspid valve is normal in structure and function. There is no tricuspid valve prolapse or vege tation. GREAT VESSELS na PERICARDIAL EFFUSION There is small left pleural effusion. There is no evidence of significant pericardial effusion. Critical Notification Critical Value: No <Conclusion> Limited echocardiogram. Left ventricle systolic function is normal. The Ejection Fraction is 55%. There is no evidence of significant pericardial effusion. No obvious intracardiac vegetation or thrombus. Signed by : Tarik Valentine, Electronically Approved : 08/08/2018 11:06:27
[2018-08-08 11:28] LABS: HEP B SURFACE AG Negative (Negative)
[2018-08-08] MEDS ORDERED: ceFAZolin SODIUM 1 GM in IV DEXTROSE 5% 50 ML IV SCH (12:00)
--- NOTE | 2018-08-08 13:12 | PDOC ---
SUBJECTIVE ROS States "Im feeling great " OBJECTIVE Vital Signs Vital Signs Date Time Temp Pulse Resp B/P (MAP) Pulse Ox O2 Delivery O2 Flow Rate FiO2 08/08/18 11:22 90 Room Air 08/08/18 11:00 98.0 92 20 119/78 (92) 98.0 08/07/18 17:19 2.0 I & 0 Intake and Output 08/08/18 07:01 Intake Total 2130 ml Output Total 875 ml Balance 1255 ml Intake Oral 2030 ml IV Total 100 ml Output Urine Total 875 ml PHYSICAL EXAM Physical Exam Gen- NAD, HEENT- OM moist NECK: Supple. LUNGS: With diminished breath sounds at the bases. CARDIOVASCULAR: Regular rate. ABDOMEN: Soft. EXTREMITIES: no pitting edema Neuro- Alert , awake Skin No rash - SP Cath +, No SP tenderness DIAGNOSIS/ASSESSMENT Assessment & Plan ESRD - On HD TTS at [facility] Stable, HD tomorrow per his schedule Acute hypoxic respiratory failure CTA done Pulm managing Anemia- Recd PRBC, CT abdomen ?Hemoperitoneum Hgb stable today ?Hemoperit on CT S/P Paracentesis- Diagnostic - as per GI serous COMMENT/RELEVANT DATA Meds Current Medications Medications (Trade) Dose Ordered Sig/Kevin Start Time Stop Time Status Last Admin Dose Admin Acetaminophen (Tylenol) 650 mg PRN Q6HRS PRN 08/06/18 12:30 Albumin Human 200 ml @ 200 mls/hr 1X PRN PRN 08/07/18 12:30 08/07/18 18:29 DC Albuterol Sulfate (Ventolin Neb Soln) 2.5 mg PRN Q4HRS PRN 08/06/18 12:30 Albuterol/ Ipratropium (Duoneb) 3 ml RTQID 08/06/18 08:30 08/08/18 11:21 3 ML Atropine Sulfate (ATROPINE 0.5mg SYRINGE) 0.5 mg PRN Q5MIN PRN 08/05/18 23:30 Benzonatate (Tessalon Perle) 100 mg 1X ONCE 08/05/18 21:00 08/05/18 21:01 DC 08/05/18 20:42 100 MG Cefazolin Sodium 1 gm/Dextrose 50 ml @ 100 mls/hr DAILY 08/08/18 12:00 08/08/18 12:13 100 MLS/HR Dexmedetomidine HCl 200 mcg/ Sodium Chloride 50 ml @ 0 mls/hr CONT PRN 08/05/18 23:30 08/07/18 13:26 DC 08/06/18 06:20 7.75 MLS/HR Docusate Sodium (Colace) 100 mg PRN DAILY PRN 08/06/18 12:30 Furosemide (Lasix) 80 mg 1X ONCE 08/05/18 23:00 08/05/18 23:02 DC 08/06/18 05:40 80 MG Heparin Sodium (Porcine) (Heparin Sodium) 5,050 unit 1X ONCE 08/06/18 14:45 08/06/18 21:07 DC 08/06/18 14:47 5,050 UNIT Heparin Sodium/ Dextrose 500 ml @ 20 mls/hr CONT PRN 08/06/18 13:30 08/06/18 21:07 DC 08/06/18 14:35 20 MLS/HR Hydralazine HCl (Apresoline Inj) 10 mg PRN Q4HRS PRN 08/06/18 12:30 Info (Anti-Coagulation Monitoring By Pharmacy) 1 each PRN DAILY PRN 08/06/18 13:30 08/06/18 21:15 DC 08/06/18 13:24 1 EACH Info (CONTRAST GIVEN -- Rx MONITORING) 1 each PRN DAILY PRN 08/06/18 11:15 08/08/18 11:14 DC Info (PHARMACY MONITORING -- do not chart) 1 each PRN DAILY PRN 08/07/18 12:30 UNV Iohexol (Omnipaque 350 Mg/ml) 85 ml 1X ONCE 08/06/18 11:00 08/06/18 11:01 DC 08/06/18 11:00 85 ML Lactobacillus Rhamnosus (Culturelle) 1 cap BID 08/07/18 21:00 08/08/18 09:00 1 CAP Lorazepam (Ativan) 2 mg PRN Q4HRS PRN 08/05/18 23:00 08/05/18 23:54 2 MG Magnesium Oxide (Magnesium Oxide) 400 mg DAILY 08/06/18 09:00 08/08/18 08:59 400 MG Morphine Sulfate (Morphine Sulfate) 2 mg PRN Q2HR PRN 08/06/18 12:30 Ondansetron HCl (Zofran) 4 mg PRN Q6HRS PRN 08/06/18 12:30 Piperacillin Sod/ Tazobactam Sod (Zosyn Per Pharmacy) 1 each PRN DAILY PRN 08/06/18 03:45 08/08/18 10:52 DC Piperacillin Sod/ Tazobactam Sod 2.25 gm/Sodium Chloride 50 ml @ 100 mls/hr Q8HRS 08/06/18 06:00 08/08/18 10:52 DC 08/08/18 05:45 100 MLS/HR Piperacillin Sod/ Tazobactam Sod 3.375 gm/Sodium Chloride 50 ml @ 100 mls/hr 1X ONCE 08/05/18 21:00 08/05/18 21:29 DC 08/05/18 20:42 100 MLS/HR Risperidone (RisperDAL) 2 mg PRN Q12HRS PRN 08/05/18 23:00 08/08/18 02:46 2 MG Sodium Chloride 1,000 ml @ 400 mls/hr Q2H30M PRN 08/07/18 12:24 08/08/18 00:23 DC Throat Lozenges (Cepacol Sore Throat Lozenge) 1 breezy PRN Q2HRS PRN 08/05/18 20:30 Tramadol HCl (Ultram) 50 mg PRN Q6HRS PRN 08/06/18 12:30 08/08/18 05:44 50 MG Vancomycin HCl (Vanco Per Pharmacy) 1 each PRN DAILY PRN 08/06/18 04:00 08/08/18 10:52 DC 08/07/18 12:42 1 EACH Vancomycin HCl (Vancomycin Random Level) 1 each 1X ONCE 08/07/18 05:00 08/07/18 05:01 DC 08/07/18 05:00 1 EACH Vancomycin HCl (Vancomycin Trough Level) 1 each 1X ONCE 08/07/18 21:30 08/07/18 21:31 Cancel Vancomycin HCl 1.75 gm/Sodium Chloride 500 ml @ 250 mls/hr 1X ONCE 08/05/18 21:00 08/05/18 22:59 DC 08/05/18 21:21 250 MLS/HR Vancomycin HCl 500 mg/Sodium Chloride 100 ml @ 100 mls/hr QTUTHSA 08/07/18 16:00 08/08/18 10:52 DC 08/07/18 17:37 100 MLS/HR Lab Laboratory Tests Test 08/08/18 03:20 White Blood Count 10.4 x10^3/uL (4.0-11.0) Red Blood Count 2.95 x10^6/uL (4.30-5.70) Hemoglobin 8.5 g/dL (13.0-17.5) Hematocrit 25.1 % (39.0-53.0) Mean Corpuscular Volume 85 fL (79-100) Mean Corpuscular Hemoglobin 29 pg (25-35) Mean Corpuscular Hemoglobin Concent 34 g/dL (31-37) Red Cell Distribution Width 17.0 % (11.5-14.5) Platelet Count 100 x10^3/uL (140-400) Neutrophils (%) (Auto) 58 % (31-73) Lymphocytes (%) (Auto) 13 % (24-48) Monocytes (%) (Auto) 20 % (0-9) Eosinophils (%) (Auto) 9 % (0-3) Basophils (%) (Auto) 1 % (0-3) Neutrophils # (Auto) 6.0 x10^3uL (1.8-7.7) Lymphocytes # (Auto) 1.3 x10^3/uL (1.0-4.8) Monocytes # (Auto) 2.0 x10^3/uL (0.0-1.1) Eosinophils # (Auto) 0.9 x10^3/uL (0.0-0.7) Basophils # (Auto) 0.1 x10^3/uL (0.0-0.2) Sodium Level 139 mmol/L (136-145) Potassium Level 3.8 mmol/L (3.5-5.1) Chloride Level 102 mmol/L (98-107) Carbon Dioxide Level 30 mmol/L (21-32) Anion Gap 7 (6-14) Blood Urea Nitrogen 24 mg/dL (8-26) Creatinine 4.8 mg/dL (0.7-1.3) Estimated GFR (Cockcroft-Gault) 12.7 Glucose Level 95 mg/dL (70-99) Calcium Level 8.2 mg/dL (8.5-10.1) Results All relevant outside records, renal labs, imaging studies, telemetry/EKG's were reviewed. MARIYA NORMAN MD Aug 08, 2018 13:12
--- NOTE | 2018-08-08 13:15 | PDOC ---
PROGRESS NOTES Chief Complaint Chief Complaint CC: anemia dyspnea History of Present Illness History of Present Illness Patient was seen and examined. He has no new complaints today. Vitals Vitals Vital Signs Date Time Temp Pulse Resp B/P (MAP) Pulse Ox O2 Delivery O2 Flow Rate FiO2 08/08/18 11:22 90 Room Air 08/08/18 11:00 98.0 92 20 119/78 (92) 98.0 08/07/18 17:19 2.0 Physical Exam Physical Exam GENERAL: Alert and oriented gentleman, not in distress. VITAL SIGNS: Stable, afebrile. HEENT: NAD. NECK: Supple, no JVP, no lymphadenopathy. LUNGS: Clear. HEART: S1, S2 regular. ABDOMEN: Benign. EXTREMITIES: No edema, cyanosis. SKIN: Unremarkable. NEUROLOGICAL: The patient is neurologically intact. General: Alert, Oriented X3, Cooperative, No acute distress Lungs: Crackles Abdomen: Soft, No tenderness, Other (suprapubic cath in with clear urine) Extremities: No clubbing, No cyanosis Skin: No rashes, No breakdown Labs LABS Laboratory Tests Test 08/08/18 03:20 White Blood Count 10.4 x10^3/uL (4.0-11.0) Red Blood Count 2.95 x10^6/uL (4.30-5.70) Hemoglobin 8.5 g/dL (13.0-17.5) Hematocrit 25.1 % (39.0-53.0) Mean Corpuscular Volume 85 fL (79-100) Mean Corpuscular Hemoglobin 29 pg (25-35) Mean Corpuscular Hemoglobin Concent 34 g/dL (31-37) Red Cell Distribution Width 17.0 % (11.5-14.5) Platelet Count 100 x10^3/uL (140-400) Neutrophils (%) (Auto) 58 % (31-73) Lymphocytes (%) (Auto) 13 % (24-48) Monocytes (%) (Auto) 20 % (0-9) Eosinophils (%) (Auto) 9 % (0-3) Basophils (%) (Auto) 1 % (0-3) Neutrophils # (Auto) 6.0 x10^3uL (1.8-7.7) Lymphocytes # (Auto) 1.3 x10^3/uL (1.0-4.8) Monocytes # (Auto) 2.0 x10^3/uL (0.0-1.1) Eosinophils # (Auto) 0.9 x10^3/uL (0.0-0.7) Basophils # (Auto) 0.1 x10^3/uL (0.0-0.2) Sodium Level 139 mmol/L (136-145) Potassium Level 3.8 mmol/L (3.5-5.1) Chloride Level 102 mmol/L (98-107) Carbon Dioxide Level 30 mmol/L (21-32) Anion Gap 7 (6-14) Blood Urea Nitrogen 24 mg/dL (8-26) Creatinine 4.8 mg/dL (0.7-1.3) Estimated GFR (Cockcroft-Gault) 12.7 Glucose Level 95 mg/dL (70-99) Calcium Level 8.2 mg/dL (8.5-10.1) Review of Systems Review of Systems Hear: denies chest pain Integument: denies rashes Assessment and Plan Assessmemt and Plan Assessment: acute on chronic resp failure with HAP ESRD on HD h/o Infected PD catheter, changed 07/06 severe malnutrition Neurogenic bladder with Suprapubic martinez anemia small PE possible hemopertonium on CT, s/p paracentesis 08/07 with serous fluid plan: pulm, renal, id consulted. IR, gi, sx consult, no sx for now cont zosyn and vanco for now. fu bcx continue cephazolin to Aug 21 taper bipap, NC as needed. chest CT, abd CT done cont HD ok to eat as per GI may need AC for PE + HBS Ag, fu with gi Plan to discharge after echo is read Comment Review of Relevant I have reviewed the following items allyson (where applicable) has been applied. Labs Laboratory Tests Test 08/07/18 04:25 08/07/18 10:40 08/08/18 03:20 White Blood Count 9.3 x10^3/uL (4.0-11.0) 10.4 x10^3/uL (4.0-11.0) Red Blood Count 3.19 x10^6/uL (4.30-5.70) 2.95 x10^6/uL (4.30-5.70) Hemoglobin 9.3 g/dL (13.0-17.5) 8.5 g/dL (13.0-17.5) Hematocrit 26.6 % (39.0-53.0) 25.1 % (39.0-53.0) Mean Corpuscular Volume 83 fL (79-100) 85 fL (79-100) Mean Corpuscular Hemoglobin 29 pg (25-35) 29 pg (25-35) Mean Corpuscular Hemoglobin Concent 35 g/dL (31-37) 34 g/dL (31-37) Red Cell Distribution Width 16.9 % (11.5-14.5) 17.0 % (11.5-14.5) Platelet Count 114 x10^3/uL (140-400) 100 x10^3/uL (140-400) Neutrophils (%) (Auto) 61 % (31-73) 58 % (31-73) Lymphocytes (%) (Auto) 16 % (24-48) 13 % (24-48) Monocytes (%) (Auto) 14 % (0-9) 20 % (0-9) Eosinophils (%) (Auto) 8 % (0-3) 9 % (0-3) Basophils (%) (Auto) 1 % (0-3) 1 % (0-3) Neutrophils # (Auto) 5.7 x10^3uL (1.8-7.7) 6.0 x10^3uL (1.8-7.7) Lymphocytes # (Auto) 1.5 x10^3/uL (1.0-4.8) 1.3 x10^3/uL (1.0-4.8) Monocytes # (Auto) 1.3 x10^3/uL (0.0-1.1) 2.0 x10^3/uL (0.0-1.1) Eosinophils # (Auto) 0.8 x10^3/uL (0.0-0.7) 0.9 x10^3/uL (0.0-0.7) Basophils # (Auto) 0.1 x10^3/uL (0.0-0.2) 0.1 x10^3/uL (0.0-0.2) Sodium Level 142 mmol/L (136-145) 139 mmol/L (136-145) Potassium Level 4.1 mmol/L (3.5-5.1) 3.8 mmol/L (3.5-5.1) Chloride Level 103 mmol/L (98-107) 102 mmol/L (98-107) Carbon Dioxide Level 30 mmol/L (21-32) 30 mmol/L (21-32) Anion Gap 9 (6-14) 7 (6-14) Blood Urea Nitrogen 44 mg/dL (8-26) 24 mg/dL (8-26) Creatinine 6.7 mg/dL (0.7-1.3) 4.8 mg/dL (0.7-1.3) Estimated GFR (Cockcroft-Gault) 8.7 12.7 Glucose Level 97 mg/dL (70-99) 95 mg/dL (70-99) Calcium Level 8.2 mg/dL (8.5-10.1) 8.2 mg/dL (8.5-10.1) Procalcitonin 3.38 ng/mL (0.00-0.10) Random Vancomycin Level 24.2 mcg/mL Hepatitis B Core Total Antibody Negative (Negative) Hepatitis B Core IgM Antibody Nonreactive (Nonreactive) Body Fluid Source Peritoneal Body Fluid Color Yellow Body Fluid Clarity Clear Body Fluid Nucleated Cells 109 /cmm Body Fluid Mononuclear WBCs (%) 89 % Body Fluid Polymorphonuclear Cells 8 % Body Fluid Total RBCs Counted 402 /cmm Body Fluid Other Cells (%) 3 % Body Fluid Glucose 148 mg/dL (.) Body Fluid Total Protein 2.6 g/dL (.) Body Fluid Lactate Dehydrogenase 78 IU/L (.) Laboratory Tests Test 08/08/18 03:20 White Blood Count 10.4 x10^3/uL (4.0-11.0) Red Blood Count 2.95 x10^6/uL (4.30-5.70) Hemoglobin 8.5 g/dL (13.0-17.5) Hematocrit 25.1 % (39.0-53.0) Mean Corpuscular Volume 85 fL (79-100) Mean Corpuscular Hemoglobin 29 pg (25-35) Mean Corpuscular Hemoglobin Concent 34 g/dL (31-37) Red Cell Distribution Width 17.0 % (11.5-14.5) Platelet Count 100 x10^3/uL (140-400) Neutrophils (%) (Auto) 58 % (31-73) Lymphocytes (%) (Auto) 13 % (24-48) Monocytes (%) (Auto) 20 % (0-9) Eosinophils (%) (Auto) 9 % (0-3) Basophils (%) (Auto) 1 % (0-3) Neutrophils # (Auto) 6.0 x10^3uL (1.8-7.7) Lymphocytes # (Auto) 1.3 x10^3/uL (1.0-4.8) Monocytes # (Auto) 2.0 x10^3/uL (0.0-1.1) Eosinophils # (Auto) 0.9 x10^3/uL (0.0-0.7) Basophils # (Auto) 0.1 x10^3/uL (0.0-0.2) Sodium Level 139 mmol/L (136-145) Potassium Level 3.8 mmol/L (3.5-5.1) Chloride Level 102 mmol/L (98-107) Carbon Dioxide Level 30 mmol/L (21-32) Anion Gap 7 (6-14) Blood Urea Nitrogen 24 mg/dL (8-26) Creatinine 4.8 mg/dL (0.7-1.3) Estimated GFR (Cockcroft-Gault) 12.7 Glucose Level 95 mg/dL (70-99) Calcium Level 8.2 mg/dL (8.5-10.1) Microbiology 08/05/18 Blood Culture - Preliminary, Resulted NO GROWTH AFTER 2 DAYS Medications Current Medications Albuterol/ Ipratropium (Duoneb) 3 ml 1X ONCE NEB Last administered on at 19:42; Start 08/05/18 at 20:15; Stop 08/05/18 at 20:16; Status DC Lorazepam (Ativan) 0.5 mg 1X ONCE IV Last administered on 08/05/18at 19:47; Start 08/05/18 at 20:15; Stop 08/05/18 at 20:16; Status DC Piperacillin Sod/ Tazobactam Sod 3.375 gm/Sodium Chloride 50 ml @ 100 mls/hr 1X ONCE IV Last administered on 08/05/18at 20:42; Start 08/05/18 at 21:00; Stop 08/05/18 at 21:29; Status DC Vancomycin HCl 1.75 gm/Sodium Chloride 500 ml @ 250 mls/hr 1X ONCE IV Last administered on 08/05/18at 21:21; Start 08/05/18 at 21:00; Stop 08/05/18 at 22:59 ; Status DC Acetaminophen (Tylenol) 650 mg PRN Q4HRS PRN PO FEVER; Start 08/05/18 at 20:15 ; Stop 08/06/18 at 12:38; Status DC Magnesium Oxide (Magnesium Oxide) 400 mg DAILY PO Last administered on at 08:59; Start 08/06/18 at 09:00 Benzonatate (Tessalon Perle) 100 mg 1X ONCE PO Last administered on 08/05/18at 20:42; Start 08/05/18 at 21:00; Stop 08/05/18 at 21:01; Status DC Throat Lozenges (Cepacol Sore Throat Lozenge) 1 breezy PRN Q2HRS PRN PO SORE THROAT; Start 08/05/18 at 20:30 Lorazepam (Ativan) 1 mg 1X ONCE IV Last administered on 08/05/18at 20:43; Start 08/05/18 at 21:00; Stop 08/05/18 at 21:01; Status DC Sodium Chloride 500 ml @ 500 mls/hr 1X ONCE IV Last administered on at 21:20; Start 08/05/18 at 21:00; Stop 08/05/18 at 21:59; Status DC Lorazepam (Ativan) 2 mg PRN Q4HRS PRN IV ANXIETY / AGITATION Last administered on 08/05/18at 23:54; Start 08/05/18 at 23:00 Risperidone (RisperDAL) 2 mg PRN Q12HRS PRN PO ANXIETY / AGITATION Last administered on 08/08/18at 02:46; Start 08/05/18 at 23:00 Furosemide (Lasix) 80 mg 1X ONCE IVP Last administered on 08/06/18at 05:40; Start 08/05/18 at 23:00; Stop 08/05/18 at 23:02; Status DC Dexmedetomidine HCl 200 mcg/ Sodium Chloride 50 ml @ 0 mls/hr CONT PRN IV PER PROTOCOL Last administered on 08/06/18at 06:20; Start 08/05/18 at 23:30; Stop at 13:26; Status DC Sodium Chloride 500 ml @ 500 mls/hr 1X PRN PRN IV SEE COMMENTS; Start at 23:30 Atropine Sulfate (ATROPINE 0.5mg SYRINGE) 0.5 mg PRN Q5MIN PRN IV SEE COMMENTS ; Start 08/05/18 at 23:30 Piperacillin Sod/ Tazobactam Sod (Zosyn Per Pharmacy) 1 each PRN DAILY PRN MC SEE COMMENTS; Start 08/06/18 at 03:45; Stop 08/08/18 at 10:52; Status DC Vancomycin HCl (Vanco Per Pharmacy) 1 each PRN DAILY PRN MC SEE COMMENTS Last administered on 08/07/18at 12:42; Start 08/06/18 at 04:00; Stop 08/08/18 at 10:52 ; Status DC Piperacillin Sod/ Tazobactam Sod 2.25 gm/Sodium Chloride 50 ml @ 100 mls/hr Q8HRS IV Last administered on 08/08/18at 05:45; Start 08/06/18 at 06:00; Stop at 10:52; Status DC Vancomycin HCl (Vancomycin Trough Level) 1 each 1X ONCE MC ; Start 08/07/18 at 21:30; Stop 08/07/18 at 21:31; Status Cancel Albuterol/ Ipratropium (Duoneb) 3 ml RTQID NEB Last administered on 08/08/18at 11:21; Start 08/06/18 at 08:30 Iohexol (Omnipaque 350 Mg/ml) 85 ml 1X ONCE IV Last administered on 08/06/18at 11:00; Start 08/06/18 at 11:00; Stop 08/06/18 at 11:01; Status DC Info (CONTRAST GIVEN -- Rx MONITORING) 1 each PRN DAILY PRN MC SEE COMMENTS; Start 08/06/18 at 11:15; Stop 08/08/18 at 11:14; Status DC Albuterol Sulfate (Ventolin Neb Soln) 2.5 mg PRN Q4HRS PRN NEB SHORTNESS OF BREATH; Start 08/06/18 at 12:30 Acetaminophen (Tylenol) 650 mg PRN Q6HRS PRN PO FEVER; Start 08/06/18 at 12:30 Ondansetron HCl (Zofran) 4 mg PRN Q6HRS PRN IV NAUSEA/VOMITING; Start 08/06/18 at 12:30 Morphine Sulfate (Morphine Sulfate) 2 mg PRN Q2HR PRN IV MODERATE TO SEVERE PAIN; Start 08/06/18 at 12:30 Tramadol HCl (Ultram) 50 mg PRN Q6HRS PRN PO MILD TO MODERATE PAIN Last administered on 08/08/18at 05:44; Start 08/06/18 at 12:30 Hydralazine HCl (Apresoline Inj) 10 mg PRN Q4HRS PRN IVP ELEVATED BP, SEE COMMENTS; Start 08/06/18 at 12:30 Docusate Sodium (Colace) 100 mg PRN DAILY PRN PO CONSTIPATION; Start 08/06/18 at 12:30 Heparin Sodium (Porcine) (Heparin Sodium) 5,000 unit Q8HRS SQ ; Start 08/06/18 at 14:00; Status Cancel Vancomycin HCl (Vancomycin Random Level) 1 each 1X ONCE MC Last administered on 08/07/18at 05:00; Start 08/07/18 at 05:00; Stop 08/07/18 at 05:01; Status DC Heparin Sodium/ Dextrose 500 ml @ 20 mls/hr CONT PRN IV SEE I/O RECORD Last administered on 08/06/18at 14:35; Start 08/06/18 at 13:30; Stop 08/06/18 at 21:07 ; Status DC Heparin Sodium (Porcine) (Heparin Sodium) 1,900 unit PRN Q6HRS PRN IV FOR UFH LEVEL LESS THAN 0.2; Start 08/06/18 at 14:00; Stop 08/07/18 at 12:38; Status DC Heparin Sodium (Porcine) (Heparin Sodium) 950 unit PRN Q6HRS PRN IV FOR UFH LEVEL 0.2 - 0.29; Start 08/06/18 at 14:00; Stop 08/06/18 at 21:07; Status DC Info (Anti-Coagulation Monitoring By Pharmacy) 1 each PRN DAILY PRN MC SEE COMMENTS Last administered on 08/06/18at 13:24; Start 08/06/18 at 13:30; Stop at 21:15; Status DC Heparin Sodium (Porcine) (Heparin Sodium) 5,050 unit 1X ONCE IV Last administered on 08/06/18at 14:47; Start 08/06/18 at 14:45; Stop 08/06/18 at 21:07 ; Status DC Sodium Chloride 1,000 ml @ 1,000 mls/hr Q1H PRN IV hypotension; Start 08/06/18 at 16:04; Stop 08/07/18 at 00:09; Status DC Sodium Chloride 1,000 ml @ 400 mls/hr Q2H30M PRN IV PATENCY; Start 08/06/18 at 16:04; Stop 08/07/18 at 04:03; Status DC Info (PHARMACY MONITORING -- do not chart) 1 each PRN DAILY PRN MC SEE COMMENTS ; Start 08/06/18 at 16:15 Sodium Chloride 1,000 ml @ 1,000 mls/hr Q1H PRN IV hypotension; Start 08/07/18 at 12:24; Stop 08/07/18 at 18:23; Status DC Albumin Human 200 ml @ 200 mls/hr 1X PRN PRN IV Hypotension; Start 08/07/18 at 12:30; Stop 08/07/18 at 18:29; Status DC Sodium Chloride 1,000 ml @ 400 mls/hr Q2H30M PRN IV PATENCY; Start 08/07/18 at 12:24; Stop 08/08/18 at 00:23; Status DC Info (PHARMACY MONITORING -- do not chart) 1 each PRN DAILY PRN MC SEE COMMENTS ; Start 08/07/18 at 12:30; Status UNV Info (PHARMACY MONITORING -- do not chart) 1 each PRN DAILY PRN MC SEE COMMENTS ; Start 08/07/18 at 12:30; Status UNV Vancomycin HCl 500 mg/Sodium Chloride 100 ml @ 100 mls/hr QTUTHSA IV Last administered on 08/07/18at 17:37; Start 08/07/18 at 16:00; Stop 08/08/18 at 10:52 ; Status DC Lactobacillus Rhamnosus (Culturelle) 1 cap BID PO Last administered on at 09:00; Start 08/07/18 at 21:00 Cefazolin Sodium 1 gm/Dextrose 50 ml @ 100 mls/hr DAILY IV Last administered on 08/08/18at 12:13; Start 08/08/18 at 12:00 Active Scripts Active Zyvox (Linezolid) 600 Mg Tablet 600 Mg PO BID 28 Days Vitals/I & O Vital Sign - Last 24 Hours 08/07/18 08/07/18 08/07/18 08/07/18 16:55 16:57 17:19 19:00 Temp 98.4 98.4 98.1 98.4 98.4 98.1 Pulse 114 114 122 Resp 18 18 B/P (MAP) 148/72 (97) 148/72 (97) 131/81 (98) Pulse Ox 96 96 92 O2 Delivery Room Air Room Air Room Air Room Air O2 Flow Rate 2.0 08/07/18 08/07/18 08/07/18 08/08/18 19:42 20:00 23:00 03:00 Temp 98.4 98.2 98.4 98.2 Pulse 118 121 Resp 20 B/P (MAP) 133/83 (100) 130/77 (94) Pulse Ox 92 93 O2 Delivery Room Air Room Air Room Air Room Air 08/08/18 08/08/18 08/08/18 08/08/18 05:44 07:43 07:49 08:00 Temp 98.2 98.2 Resp 19 B/P (MAP) 124/80 (95) Pulse Ox 90 90 O2 Delivery Room Air Room Air Room Air Room Air 08/08/18 08/08/18 11:00 11:22 Temp 98.0 98.0 Pulse 92 Resp 20 B/P (MAP) 119/78 (92) Pulse Ox 93 90 O2 Delivery Room Air Room Air Intake and Output 08/07/18 08/07/18 08/08/18 15:01 23:01 07:01 Intake Total 570 ml 1290 ml 270 ml Output Total 725 ml 150 ml Balance 570 ml 565 ml 120 ml DEVAN NICHOLE III DO Aug 08, 2018 13:15
--- NOTE | 2018-08-08 14:57 | PDOC ---
HAJA FORTUNE MEDICAL BILLING ASSISTANT 08/08/18 1457: Provider Note Provider Note Urology has not been asked to consult on patient. However he is known to us for chronic urinary retention for which he is dependent upon an SP tube. His mother called the office informing us that he had been admitted and would need his SP tube changed. CHANNEL MANAGER dropped by and spoke to patient briefly who confirmed that yes, his tube had not been changed yet. Orders entered for nursing to perform SP tube change. Please call with questions/change in patient condition or if med team would like an official consult regarding this patient. BRIJESH TERAN MD 08/09/18 1759: Provider Note Provider Note Agree with assessment and plan. HAJA FORTUNE APRN Aug 08, 2018 14:57 BRIJESH TERAN MD Aug 09, 2018 17:59
[2018-08-08 15:00] VITALS: BP 124/76
--- NOTE | 2018-08-08 16:10 | PATHOLOGY ---
Note [facility] Accession Number: [id number] TESTS RESULT FLAG UNITS REF RANGE LAB Clinician Provided Cytology Information No. of containers..01 Other (Miscellaneous) Source: 01 ASCITES DIAGNOSIS: 02 ASCITES NEGATIVE FOR MALIGNANT CELLS. REACTIVE MESOTHELIAL CELLS ARE PRESENT. THIS INTERPRETATION INCLUDES EVALUATION OF A CELL BLOCK. Signed out by: 02 Dominik Perera MD, Pathologist NPI- [id number] Performed by: Jackie Olivas, [employer] Developer ([facility]) Gross description: 01 30ML, YELLOW, CLOUDY /LCS FLAG LEGEND: L-Low Normal,H-High Normal,LL-Alert Low,HH-Alert High <-Panic Low,>-Panic High,A-Abnormal,AA-Critical Abnormal Performed at: [address] [id number] Torres Coello MD, 02 [facility] [address] [place] [address] Dominik Perera MD, Specimen Comment: A courtesy copy of this report has been sent to Specimen Comment: [phone]. Specimen Comment: Report sent to Specimen Comment: A duplicate report has been generated due to demographic updates. Performed at: [address] [place] [address] [id number] MD Torres Coello MD Phone: [phone]
== END 2018-08-08 18:10 | disposition home or self-care (01) | DRG 871 ==
LOC: ER 17:50 → 1 WEST ICU 21:00 → 5 SOUTH 08-07 14:13
PROVIDERS: ADMIT Internal Medicine; ATTEND Internal Medicine
PROC: 5A09357 Assistance with Respiratory Ventilation, Less than 24 Consecutive Hours, Continuous Positive Airway Pressure (ICD-10-PCS; 2018-08-05)
PROC: 30233N1 Transfusion of Nonautologous Red Blood Cells into Peripheral Vein, Percutaneous Approach (ICD-10-PCS; 2018-08-06)
PROC: 5A1D70Z Performance of Urinary Filtration, Intermittent, Less than 6 Hours Per Day (ICD-10-PCS; 2018-08-06)
PROC: 0W9G3ZX Drainage of Peritoneal Cavity, Percutaneous Approach, Diagnostic (ICD-10-PCS; principal; 2018-08-07)
PROC: 5A1D70Z Performance of Urinary Filtration, Intermittent, Less than 6 Hours Per Day (ICD-10-PCS; 2018-08-07)
DX: A41.9 Sepsis, unspecified organism (principal); J18.9 Pneumonia, unspecified organism; J96.21 Acute and chronic respiratory failure with hypoxia; N18.6 End stage renal disease; K66.1 Hemoperitoneum; E43 Unspecified severe protein-calorie malnutrition; I50.31 Acute diastolic (congestive) heart failure; I26.99 Other pulmonary embolism without acute cor pulmonale; J44.0 Chronic obstructive pulmonary disease with (acute) lower respiratory infection; J44.1 Chronic obstructive pulmonary disease with (acute) exacerbation; D63.1 Anemia in chronic kidney disease; Y95 Nosocomial condition; N31.9 Neuromuscular dysfunction of bladder, unspecified; Z99.2 Dependence on renal dialysis; Z99.81 Dependence on supplemental oxygen; Z82.49 Family history of ischemic heart disease and other diseases of the circulatory system; Z68.20 Body mass index [BMI] 20.0-20.9, adult; Z87.01 Personal history of pneumonia (recurrent); Z87.891 Personal history of nicotine dependence
CPT/HCPCS: 36415; 36600; 49083; 70450; 71045; 71275; 74176; 80048; 80053; 80202; 82274; 82805; 82945; 83605; 83615; 83735; 84145; 84157; 84484; 85025; 85610; 85730; 86704; 86705; 86706; 86850; 86870; 86900; 86901; 86922; 87040; 87071; 87075; 87340; 87641; 88112; 88305; 89050; 93005; 93308; 93970; 94640; 94660; 94760; 96365; 96375; 96376; J0690; J1644; J1940; J2060; J2543; J3370; J7040; J7620; P9016; Q9967; 99285-25

== ENCOUNTER 2018-09-05 14:01 | Inpatient (IN) | payer OTHER ==
[~2018-09-05] VITALS: Ht 172.7 cm; Wt 60.5 kg
[~2018-09-05 14:01] MED LIST changes: +DARBEPOETIN ALFA IN POLYSORBAT SQ; +IRON150C11 PO; +Pantoprazole PO
[2018-09-05 15:23] LABS: BASO # 0.1 x10^3/uL (0.0-0.2); BASO % 1 % (0-3); EOS # 0.7 x10^3/uL (0.0-0.7); EOS % 8 % (0-3); HEMATOCRIT 29.7 % (39.0-53.0); HEMOGLOBIN 9.5 g/dL (13.0-17.5); LYMPH % 11 % (24-48); MEAN CORPUSCULAR HEMOGLOBIN 28 pg (25-35); MEAN CORPUSCULAR HGB CONC 32 g/dL (31-37); MEAN CORPUSCULAR VOLUME 89 fL (79-100); MONO # 1.5 x10^3/uL (0.0-1.1); MONO % 16 % (0-9); NEUT # 6.1 x10^3uL (1.8-7.7); NEUT % 64 % (31-73); PLATELET COUNT 329 x10^3/uL (140-400); RED BLOOD COUNT 3.35 x10^6/uL (4.30-5.70); RED CELL DISTRIBUTION WIDTH 16.1 % (11.5-14.5); WHITE BLOOD COUNT 9.5 x10^3/uL (4.0-11.0)
[2018-09-05 15:29] LABS: CALCIUM 8.7 mg/dL (8.5-10.1); CREATININE 5.5 mg/dL (0.7-1.3); GFR 10.9; POTASSIUM 4.6 mmol/L (3.5-5.1)
[2018-09-05 15:35] LABS: ALBUMIN 1.6 g/dL (3.4-5.0); ALBUMIN/GLOBULIN RATIO 0.3 (1.0-1.7); TOTAL BILIRUBIN 0.3 mg/dL (0.2-1.0); TOTAL PROTEIN 6.9 g/dL (6.4-8.2)
[2018-09-05 15:47] LABS: PROTHROMBIN TIME PATIENT 13.9 SEC (11.7-14.0)
[2018-09-05 16:29] LABS: AMPHETAMINE/METHAMPHETAMINE NEG (NEG); BARBITURATES NEG (NEG); BENZODIAZEPINES NEG (NEG); CANNABINOIDS NEG (NEG); COCAINE NEG (NEG); METHADONE NEG (NEG); OPIATES NEG (NEG); PHENCYCLIDINE NEG (NEG)
--- NOTE | 2018-09-05 16:34 | RAD ---
Portable chest, 09/05/2018: HISTORY: Shortness of breath Comparison is made to a study from 08/25/2018. A right jugular dialysis type catheter remains in place extending into the right atrium. The heart is enlarged. There are moderate patchy bilateral pulmonary opacities. These appear to have improved slightly when compared to the previous study with better definition of the underlying pulmonary vascularity in the upper lobes. There is persistent bilateral pleural thickening compatible with pleural fluid, right greater than left. No new pulmonary abnormality is seen. There is no evidence of pneumothorax. IMPRESSION: 1. Cardiomegaly. 2. Moderate ongoing or recurrent patchy bilateral pulmonary infiltrates and nodules with slight improvement since 08/25/2018. 3. Ongoing bilateral pleural effusions, right greater than left. Electronically signed by: Jt Reyes MD (09/05/2018 4:31 PM) [facility]
[2018-09-05] MEDS ORDERED: IOHEXOL 350 MG/ML 100 ML VIAL. IV ONE (17:15)
[2018-09-05] MEDS ORDERED: CONTRAST GIVEN. MC PRN (17:15)
--- NOTE | 2018-09-05 17:38 | PDOC1 ---
History and Physical Date of Admission Date of Admission DATE: 09/05/18 TIME: 17:32 Identification/Chief Complaint Chief Complaint SOA no energy Source Source: Caregiver, Chart review, Patient History of Present Illness History of Present Illness 53-year-old male who was just here last month for massive GI bleed with a hemoglobin of 5 on admission status post coiling by IR that time, comes in because of SOA and low energy and he was worried that his hemoglobin was low again. But his hemoglobin is 9.5. He is a dialysis patient is [facility] and did finish dialysis yesterday- did not skip sessions. He is on PhosLo PPI etc. Ethanol levels normal. Low albumin is 1.6. BNP 35,000 with a creatinine of 5.5. Normal K and bicarbonate. Chest x-ray looks good actually than last cxr, ER has ordered CT r.o PE bec of hypoxia on arrival. Has a suprapubic catheter for 4-5 months now he is unsure why. EF recent to 60% . Was recently here for AECOPD along with the anemia and the GI bleed. Admitted because of mild CHF factor by exacerbation, dialysis. High heart rate and high blood pressure on admission, he claims he gets high bp when he's at the emergency room. Past Medical History Cardiovascular: No pertinent hx, HTN Pulmonary: Bronchitis, COPD, Other CENTRAL NERVOUS SYSTEM: Other GI: No pertinent hx, GI bleed Heme/Onc: Anemia NOS Hepatobiliary: No pertinent hx Psych: No pertinent hx Rheumatologic: No pertinent hx Infectious disease: Other Renal/: Chronic renal insuff, Chronic renal failure, UTI, Other Endocrine: No pertinent hx, Hyperparathyroidism Past Surgical History Past Surgical History: Other (s/p coiling IR recent massive gI bleed) Family History Family History: Coronary Artery Disease, Hypertension Social History Smoke: No ALCOHOL: none Drugs: None Current Medications Current Medications Current Medications Iohexol (Omnipaque 350 Mg/ml) 90 ml 1X ONCE IV Last administered on 09/05/18at 17:21; Start 09/05/18 at 17:15; Stop 09/05/18 at 17:16; Status DC Info (CONTRAST GIVEN -- Rx MONITORING) 1 each PRN DAILY PRN MC SEE COMMENTS; Start 09/05/18 at 17:15; Stop 09/07/18 at 17:14 Non-Formulary Medication (Iron Polysaccharides Complex (Poly-Iron)) 150 mg BID66 PO ; Start 09/05/18 at 18:00; Status UNV Non-Formulary Medication ([Darbepoetin Napoleon] ) 60 mcg WEEKLYHS SQ ; Start at 21:00; Status UNV Non-Formulary Medication ([Pantoprazole] ) 40 mg BIDAC PO ; Start 09/06/18 at 07 :30; Status UNV Active Scripts Active [Pantoprazole] 40 MG Tablet.dr 40 Mg PO BIDAC 30 Days [Darbepoetin Napoleon In Polysorbat] 60 MCG/0.3 ML Disp.syrin 60 Mcg SQ WEEKLYHS 7 Days Poly-Iron (Iron Polysaccharides Complex) 150 Mg Capsule 150 Mg PO BID66 30 Days Allergies Allergies: Coded Allergies: No Known Drug Allergies (Unverified , 08/14/18) ROS Review of System weak, low energy, otherwise rest of ROS 14 point negative Physical Exam General: Alert, Oriented X3, Cooperative, No acute distress HEENT: Atraumatic, PERRLA, EOMI Lungs: Clear to auscultation, Normal air movement Heart: S1S2, RRR, no thrills, no rubs, no gallops Cardiovascular: S1, S2 Abdomen: Normal bowel sounds, Soft, No tenderness, No hepatosplenomegaly, No masses Male Genitals Exam: normal genitalia, normal prostate Rectal Exam: not examined PELVIC: Nml ext genitalia Extremities: No clubbing, No cyanosis, No edema, Normal pulses, No tenderness/ swelling Skin: No rashes, No breakdown, No significant lesion Neuro: Normal gait, Normal speech, Strength at 5/5 X4 ext, Normal tone, Sensation intact, Cranial nerves 3-12 NL, Reflexes 2+ Psych/Mental Status: Mental status NL, Mood NL Vitals Vitals Vital Signs Date Time Temp Pulse Resp B/P (MAP) Pulse Ox O2 Delivery O2 Flow Rate FiO2 09/05/18 14:15 97.8 109 20 161/85 (110) 97 Room Air 97.8 Labs Labs Laboratory Tests Test 09/05/18 14:39 09/05/18 16:11 White Blood Count 9.5 x10^3/uL (4.0-11.0) Red Blood Count 3.35 x10^6/uL (4.30-5.70) Hemoglobin 9.5 g/dL (13.0-17.5) Hematocrit 29.7 % (39.0-53.0) Mean Corpuscular Volume 89 fL (79-100) Mean Corpuscular Hemoglobin 28 pg (25-35) Mean Corpuscular Hemoglobin Concent 32 g/dL (31-37) Red Cell Distribution Width 16.1 % (11.5-14.5) Platelet Count 329 x10^3/uL (140-400) Neutrophils (%) (Auto) 64 % (31-73) Lymphocytes (%) (Auto) 11 % (24-48) Monocytes (%) (Auto) 16 % (0-9) Eosinophils (%) (Auto) 8 % (0-3) Basophils (%) (Auto) 1 % (0-3) Neutrophils # (Auto) 6.1 x10^3uL (1.8-7.7) Lymphocytes # (Auto) 1.0 x10^3/uL (1.0-4.8) Monocytes # (Auto) 1.5 x10^3/uL (0.0-1.1) Eosinophils # (Auto) 0.7 x10^3/uL (0.0-0.7) Basophils # (Auto) 0.1 x10^3/uL (0.0-0.2) Prothrombin Time 13.9 SEC (11.7-14.0) Prothromb Time International Ratio 1.1 (0.8-1.1) Sodium Level 139 mmol/L (136-145) Potassium Level 4.6 mmol/L (3.5-5.1) Chloride Level 103 mmol/L (98-107) Carbon Dioxide Level 31 mmol/L (21-32) Anion Gap 5 (6-14) Blood Urea Nitrogen 26 mg/dL (8-26) Creatinine 5.5 mg/dL (0.7-1.3) Estimated GFR (Cockcroft-Gault) 10.9 BUN/Creatinine Ratio 5 (6-20) Glucose Level 105 mg/dL (70-99) Calcium Level 8.7 mg/dL (8.5-10.1) Total Bilirubin 0.3 mg/dL (0.2-1.0) Aspartate Amino Transf (AST/SGOT) 28 U/L (15-37) Alanine Aminotransferase (ALT/SGPT) 7 U/L (16-63) Alkaline Phosphatase 150 U/L (46-116) Troponin I Quantitative 0.033 ng/mL (0.000-0.055) PS-Vyc-Q-Type Natriuretic Peptide > 29761 pg/mL (0-124) Total Protein 6.9 g/dL (6.4-8.2) Albumin 1.6 g/dL (3.4-5.0) Albumin/Globulin Ratio 0.3 (1.0-1.7) Ethyl Alcohol Level < 10 mg/dL (0-10) Urine Opiates Screen Neg (NEG) Urine Methadone Screen Neg (NEG) Urine Barbiturates Neg (NEG) Urine Phencyclidine Screen Neg (NEG) Urine Amphetamine/Methamphetamine Neg (NEG) Urine Benzodiazepines Screen Neg (NEG) Urine Cocaine Screen Neg (NEG) Urine Cannabinoids Screen Neg (NEG) Urine Ethyl Alcohol Neg (NEG) Laboratory Tests Test 09/05/18 14:39 09/05/18 16:11 White Blood Count 9.5 x10^3/uL (4.0-11.0) Red Blood Count 3.35 x10^6/uL (4.30-5.70) Hemoglobin 9.5 g/dL (13.0-17.5) Hematocrit 29.7 % (39.0-53.0) Mean Corpuscular Volume 89 fL (79-100) Mean Corpuscular Hemoglobin 28 pg (25-35) Mean Corpuscular Hemoglobin Concent 32 g/dL (31-37) Red Cell Distribution Width 16.1 % (11.5-14.5) Platelet Count 329 x10^3/uL (140-400) Neutrophils (%) (Auto) 64 % (31-73) Lymphocytes (%) (Auto) 11 % (24-48) Monocytes (%) (Auto) 16 % (0-9) Eosinophils (%) (Auto) 8 % (0-3) Basophils (%) (Auto) 1 % (0-3) Neutrophils # (Auto) 6.1 x10^3uL (1.8-7.7) Lymphocytes # (Auto) 1.0 x10^3/uL (1.0-4.8) Monocytes # (Auto) 1.5 x10^3/uL (0.0-1.1) Eosinophils # (Auto) 0.7 x10^3/uL (0.0-0.7) Basophils # (Auto) 0.1 x10^3/uL (0.0-0.2) Prothrombin Time 13.9 SEC (11.7-14.0) Prothromb Time International Ratio 1.1 (0.8-1.1) Sodium Level 139 mmol/L (136-145) Potassium Level 4.6 mmol/L (3.5-5.1) Chloride Level 103 mmol/L (98-107) Carbon Dioxide Level 31 mmol/L (21-32) Anion Gap 5 (6-14) Blood Urea Nitrogen 26 mg/dL (8-26) Creatinine 5.5 mg/dL (0.7-1.3) Estimated GFR (Cockcroft-Gault) 10.9 BUN/Creatinine Ratio 5 (6-20) Glucose Level 105 mg/dL (70-99) Calcium Level 8.7 mg/dL (8.5-10.1) Total Bilirubin 0.3 mg/dL (0.2-1.0) Aspartate Amino Transf (AST/SGOT) 28 U/L (15-37) Alanine Aminotransferase (ALT/SGPT) 7 U/L (16-63) Alkaline Phosphatase 150 U/L (46-116) Troponin I Quantitative 0.033 ng/mL (0.000-0.055) EP-Hbj-N-Type Natriuretic Peptide > 93578 pg/mL (0-124) Total Protein 6.9 g/dL (6.4-8.2) Albumin 1.6 g/dL (3.4-5.0) Albumin/Globulin Ratio 0.3 (1.0-1.7) Ethyl Alcohol Level < 10 mg/dL (0-10) Urine Opiates Screen Neg (NEG) Urine Methadone Screen Neg (NEG) Urine Barbiturates Neg (NEG) Urine Phencyclidine Screen Neg (NEG) Urine Amphetamine/Methamphetamine Neg (NEG) Urine Benzodiazepines Screen Neg (NEG) Urine Cocaine Screen Neg (NEG) Urine Cannabinoids Screen Neg (NEG) Urine Ethyl Alcohol Neg (NEG) VTE Prophylaxis Ordered VTE Prophylaxis Devices: Yes VTE Pharmacological Prophylaxi: Yes Assessment/Plan Assessment/Plan SOA, transient hypoxic respiratory failure-at the ER low sats. CTA will be done to rule out PE - CXR looks better than on last admit actually ESRD on HD TTHS Anemia of ESRD Recent massive gI bleed s./p IR coiling - hgb 9.5 GEn weakness PLAN: CT chest r.p PE HD per renal Ok to resume all home emds FUll code WOF further hypoxia Seen at ER SHERRY ROSARIO MD Sep 05, 2018 17:38
--- NOTE | 2018-09-05 17:39 | RAD ---
CTA OF THE CHEST WITH AND WITHOUT CONTRAST Clinical indications: Shortness of air. Dialysis patient. Okayed for contrast. History of pulmonary embolism. Technique: Noncontrast axial localizer was performed. After IV infusion of 90 cc of Omnipaque 350, helical CT scanning of the chest was performed using the CT pulmonary embolism protocol. A coronal MIP reconstruction was generated. PQRS compliance Statement One or more of the following individualized dose reduction techniques were utilized for this study: 1. Automated exposure control 2. Adjustment of the mA and/or kV according to patient size 3. Use of iterative reconstruction technique Comparison: CTA of the chest dated August 06, 2018. Findings: No pulmonary embolism is seen today. The previously seen pulmonary emboli are not evident today. Heart size is enlarged. There is a moderate pericardial effusion which has increased from the previous study. No bulky thoracic lymphadenopathy is evident. No focal aneurysmal dilatation or dissection of the thoracic aorta is seen. There is a moderate size left-sided pleural effusion including loculated pleural fluid within the left major fissure. This was seen previously and has not changed significantly. There is a small right-sided pleural effusion. This has improved somewhat given the decrease in the amount of loculated pleural fluid within the major fissure on the right side. Bilateral groundglass lung infiltrates are again evident which have improved. This is indicative of improvement of pulmonary edema. There are bilateral spiculated or irregular nodules. These have improved and may represent improvement of infectious or inflammatory nodules or improvement of metastatic disease if there is a history of chemotherapy treatment. Bilateral mucous plugs are present within peripheral bronchi. The proximal bronchial tree is patent otherwise. No pneumothorax is seen. No lytic process is seen. IMPRESSION: No pulmonary embolism today. Moderate-sized pericardial effusion which has progressed since the prior study. Cardiac tamponade is possible. Bilateral pleural effusions. Moderate on the left which is unchanged. Small on the right which has improved. Mild improvement in bilateral spiculated lung nodules. Improvement of bilateral pulmonary edema since the previous study. Bilateral mucous plugs are evident within peripheral bronchi. Note-this critical result was discussed with Dr. Isaac Lopez in the emergency room at 5:29 PM on September 05, 2018. Electronically signed by: Nathan Escalona MD (09/05/2018 5:36 PM) [facility]
--- NOTE | 2018-09-05 17:40 | PHYS DOC ---
Past Medical History Past Medical History: COPD, Renal Failure, Other Additional Past Medical Histor: INCONTINENCE Past Surgical History: Other Additional Past Surgical Histo: Dialysis cath right chest, LEFT KIDNEY STENT, SUPRAPUBIC CATH Alcohol Use: None Drug Use: None Adult General Chief Complaint Chief Complaint: SHORTNESS OF BREATH HPI HPI Patient is a 53 year old female was presenting with chief, shortness of breath this is an worse over the last 2 days. It's worse with exertion really no chest pain he had dialysis yesterday that went fine. No abdominal pain no further GI bleeding at all just worsening shortness of breath and generalized weakness symptoms are moderate they're currently BASELINE he is on home oxygen only at night Review of Systems Review of Systems Constitutional: Denies fever or chills [] Eyes: Denies change in visual acuity, redness, or eye pain [] GI: Denies abdominal pain, nausea, vomiting, bloody stools or diarrhea [] Neurologic: Denies headache, focal weakness or sensory changes [] Endocrine: Denies polyuria or polydipsia [] All other systems were reviewed and found to be within normal limits, except as documented in this note. Current Medications Current Medications Current Medications Medications (Trade) Dose Ordered Sig/Kevin Start Time Stop Time Status Last Admin Dose Admin Calcium Acetate (Phoslo) 667 mg TIDWMEALS 09/06/18 08:00 UNV Fentanyl Citrate (Fentanyl 2ml Vial) 50 mcg 1X ONCE 09/05/18 18:00 09/05/18 18:01 DC Info (CONTRAST GIVEN -- Rx MONITORING) 1 each PRN DAILY PRN 09/05/18 17:15 09/07/18 17:14 Iohexol (Omnipaque 350 Mg/ml) 90 ml 1X ONCE 09/05/18 17:15 09/05/18 17:16 DC 09/05/18 17:21 90 ML Non-Formulary Medication (Iron Polysaccharides Complex (Poly-Iron)) 150 mg BID66 09/05/18 18:00 UNV Non-Formulary Medication ([Darbepoetin Napoleon] ) 60 mcg WEEKLYHS 09/05/18 21:00 UNV Non-Formulary Medication ([Pantoprazole] ) 40 mg BIDAC 09/06/18 07:30 UNV Piperacillin Sod/ Tazobactam Sod (Zosyn Per Pharmacy) 1 each PRN DAILY PRN 09/05/18 17:45 UNV Piperacillin Sod/ Tazobactam Sod 2.25 gm/Sodium Chloride 50 ml @ 100 mls/hr 1X ONCE 09/05/18 17:45 09/05/18 18:14 Vitamin B Complex/ Vitamin C (Massiel-Darrel) 1 tab DAILY 09/06/18 09:00 UNV Allergies Allergies Allergies Coded Allergies Type Severity Reaction Last Updated Verified No Known Drug Allergies 08/14/18 No Physical Exam Physical Exam Constitutional: Well developed, well nourished, no acute distress, non-toxic appearance. [] HENT: Normocephalic, atraumatic, bilateral external ears normal, oropharynx moist, no oral exudates, nose normal. [] Eyes: PERRLA, EOMI, conjunctiva normal, no discharge. [] Neck: Normal range of motion, no tenderness, supple, no stridor. [] Cardiovascular:Heart rate regular rhythm, no murmur [] Lungs & Thorax: CRACKLES B/L BBASES Abdomen: Bowel sounds normal, soft, no tenderness, no masses, no pulsatile masses. [] Skin: Pallor noted Back: No tenderness, no CVA tenderness. [] Extremities: No tenderness, no cyanosis, no clubbing, ROM intact, no edema. [] Neurologic: Alert and oriented X 3, normal motor function, normal sensory function, no focal deficits noted. [] Psychologic: Affect normal, judgement normal, mood normal. [] Current Patient Data Vital Signs Vital Signs Date Time Temp Pulse Resp B/P (MAP) Pulse Ox O2 Delivery O2 Flow Rate FiO2 09/05/18 16:38 108 164/81 (108) 96 Nasal Cannula 2.0 09/05/18 14:15 97.8 20 97.8 Lab Values Laboratory Tests Test 09/05/18 14:39 09/05/18 16:11 White Blood Count 9.5 x10^3/uL (4.0-11.0) Red Blood Count 3.35 x10^6/uL (4.30-5.70) L Hemoglobin 9.5 g/dL (13.0-17.5) L Hematocrit 29.7 % (39.0-53.0) L Mean Corpuscular Volume 89 fL (79-100) Mean Corpuscular Hemoglobin 28 pg (25-35) Mean Corpuscular Hemoglobin Concent 32 g/dL (31-37) Red Cell Distribution Width 16.1 % (11.5-14.5) H Platelet Count 329 x10^3/uL (140-400) Neutrophils (%) (Auto) 64 % (31-73) Lymphocytes (%) (Auto) 11 % (24-48) L Monocytes (%) (Auto) 16 % (0-9) H Eosinophils (%) (Auto) 8 % (0-3) H Basophils (%) (Auto) 1 % (0-3) Neutrophils # (Auto) 6.1 x10^3uL (1.8-7.7) Lymphocytes # (Auto) 1.0 x10^3/uL (1.0-4.8) Monocytes # (Auto) 1.5 x10^3/uL (0.0-1.1) H Eosinophils # (Auto) 0.7 x10^3/uL (0.0-0.7) Basophils # (Auto) 0.1 x10^3/uL (0.0-0.2) Prothrombin Time 13.9 SEC (11.7-14.0) Prothrombin Time INR 1.1 (0.8-1.1) Sodium Level 139 mmol/L (136-145) Potassium Level 4.6 mmol/L (3.5-5.1) Chloride Level 103 mmol/L (98-107) Carbon Dioxide Level 31 mmol/L (21-32) Anion Gap 5 (6-14) L Blood Urea Nitrogen 26 mg/dL (8-26) Creatinine 5.5 mg/dL (0.7-1.3) H Estimated GFR (Cockcroft-Gault) 10.9 BUN/Creatinine Ratio 5 (6-20) L Glucose Level 105 mg/dL (70-99) H Calcium Level 8.7 mg/dL (8.5-10.1) Total Bilirubin 0.3 mg/dL (0.2-1.0) Aspartate Amino Transferase (AST) 28 U/L (15-37) Alanine Aminotransferase (ALT) 7 U/L (16-63) L Alkaline Phosphatase 150 U/L (46-116) H Troponin I Quantitative 0.033 ng/mL (0.000-0.055) ZH-Djf-I-Type Natriuretic Peptide > 00643 pg/mL (0-124) H Total Protein 6.9 g/dL (6.4-8.2) Albumin 1.6 g/dL (3.4-5.0) L Albumin/Globulin Ratio 0.3 (1.0-1.7) L Thyroid Stimulating Hormone (TSH) 11.342 uIU/mL (0.358-3.74) H Ethyl Alcohol Level < 10 mg/dL (0-10) Urine Opiates Screen Neg (NEG) Urine Methadone Screen Neg (NEG) Urine Barbiturates Neg (NEG) Urine Phencyclidine Screen Neg (NEG) Urine Amphetamine/Methamphetamine Neg (NEG) Urine Benzodiazepines Screen Neg (NEG) Urine Cocaine Screen Neg (NEG) Urine Cannabinoids Screen Neg (NEG) Urine Ethyl Alcohol Neg (NEG) Laboratory Tests 09/05/18 14:39 Laboratory Tests 09/05/18 14:39 EKG EKG []EKG showssinus tach rate 105 no ischemic changes noted no STEMI interpreted by me time of encounter. Radiology/Procedures Radiology/Procedures [] Impressions: IMPRESSION: No pulmonary embolism today. Moderate-sized pericardial effusion which has progressed since the prior study. Cardiac tamponade is possible. Bilateral pleural effusions. Moderate on the left which is unchanged. Small on the right which has improved. Mild improvement in bilateral spiculated lung nodules. Improvement of bilateral pulmonary edema since the previous study. Bilateral mucous plugs are evident within peripheral bronchi. Note-this critical result was discussed with Dr. Britni Lopez in the emergency room at 5:29 PM on September 05, 2018. Electronically signed by: Ruddy Escalona MD (09/05/2018 5:36 PM) [facility] DICTATED and SIGNED BY: RUDDY ESCALONA MD DATE: 09/05/18 1718 Course & Med Decision Making Course & Med Decision Making Pertinent Labs and Imaging studies reviewed. (See chart for details) []53-year-old male end-stage renal disease on hemodialysis had dialysis on Monday present with shortness of breath chest x-ray looked better so a scan to look for PE Zosyn was given for the infectious finding Effusion I did discuss with Dr. Ayers at 6 PM to consult on this patient for inpatient echo etc. at this time blood pressure is 1 150s I do not think the patient has symptomatic tamponade. d/w michaela as well Sofia Disclaimer Draglola Disclaimer This electronic medical record was generated, in whole or in part, using a voice recognition dictation system. Departure Departure Impression: Primary Impression: Dyspnea Disposition: ADMITTED INPATIENT Admitting Physician: Lety Gómez Condition: STABLE Referrals: NO PCP (PCP) BRITNI LOPEZ MD Sep 05, 2018 17:40
[2018-09-05] MEDS ORDERED: PIP/TAZO PER PHARMACY MC PRN (17:45)
[2018-09-05] MEDS ORDERED: PIPERACILLIN/TAZOBACTAM 2.25 GM in IV NORMAL SALINE 50ML 50 ML IV ONE (17:45)
[2018-09-05] MEDS ORDERED: fentaNYL PF VIAL 100 MCG/2 ML VIAL IV ONE (18:00)
[2018-09-05] MEDS: IRON POLYSACCHARIDE COMPLEX 150 MG CAPSULE PO SCH (20:57)
[2018-09-05] MEDS ORDERED: PANTOPRAZOLE 40 MG TABLET.DR. PO SCH (21:00)
[2018-09-05 21:03] VITALS: BP 150/85
[2018-09-05 23:00] VITALS: BP 148/82
[2018-09-06] MEDS: PIPERACILLIN/TAZOBACTAM 2.25 GM in IV NORMAL SALINE 50ML 50 ML IV SCH ×4 (00:15→22:25)
[2018-09-06 02:49] VITALS: BP 137/79
--- NOTE | 2018-09-06 04:22 | NUR ---
The patient, FELICE GROVE, 53 y/o, M admitted by SHERRY ROSARIO MD, was given written information regarding hospital policies, unit procedures and contact persons. Valuables were checked and left with patient in room.
[2018-09-06] MEDS: IRON POLYSACCHARIDE COMPLEX 150 MG CAPSULE PO SCH ×2 (05:38→17:42)
[2018-09-06 07:15] VITALS: BP 143/78
[2018-09-06] MEDS: CALCIUM ACETATE 667 MG CAPSULE PO SCH ×3 (08:00→17:42)
[2018-09-06] MEDS ORDERED: IV NORMAL SALINE 1000ML BAG 1,000 ML IV PRN ×2 (08:09)
[2018-09-06] MEDS ORDERED: ACETAMINOPHEN 500 MG TABLET PO PRN (08:15)
[2018-09-06] MEDS ORDERED: diphenhydrAMINE 50 MG/ML VIAL IV PRN ×2 (08:15)
[2018-09-06] MEDS ORDERED: DIALYSIS PATIENT. MC PRN (08:15)
[2018-09-06] MEDS ORDERED: ALBUMIN HUMAN 25% 200 ML IV PRN (08:15)
--- NOTE | 2018-09-06 09:14 | CARD ---
MR#: [id number] Date of Study: 09/06/2018 Ordering Physician: SANJEEV PASTOR, Referring Physician: SHERRY ROSARIO, Tech: Yuli Hull [facility] APPROVED REPORT EXAM: LIMITED Two-dimensional and M-mode echocardiogram. Other Information Quality : GoodHR: 104bpm Rhythm : Tachycardia INDICATION Pericardial Effusion 2D DIMENSIONS IVSd1.3 (0.7-1.1cm)LVDd5.0 (3.9-5.9cm) PWd1.1 (0.7-1.1cm)LVDs4.2 (2.5-4.0cm) FS (%) 16.5 %SV41.3 ml LVEF(%)34.5 (>50%) LEFT VENTRICLE The left ventricle is normal size. There is borderline to mild concentric left ventricular hypertroph y. The ejection fraction is moderately impaired. The Ejection Fraction is 30-35%. Compared to echo da miah 06/2018 - this is a significant change from prior EF of 55% There is global hypokinesis of the le ft ventricle. RIGHT VENTRICLE The right ventricle is normal size. There is normal right ventricular wall thickness. The right ventr icular systolic function is normal. ATRIA The left atrium size is normal. The right atrium size is normal. The interatrial septum is intact wit h no evidence for an atrial septal defect or patent foramen ovale as noted on 2-D or Doppler imaging. GREAT VESSELS The aortic root is normal in size. PERICARDIAL EFFUSION There is pleural effusion. There is a small to moderate sized circumferential pericardial effusion wi th no obvious echocardiographic evidence of tamponade. The pericardial effusion appears to be subacut e in nature with fibrinous components. The effusion is mostly posteriorly layered. Critical Notification Critical Value: No <Conclusion> The ejection fraction is moderately impaired. The Ejection Fraction is 30-35%. Compared to echo dated 06/2018 - this is a significant change from prior EF of 55% There is global hypokinesis of the left ventricle. There is a small to moderate sized circumferential pericardial effusion with no obvious echocardiogra phic evidence of tamponade. The pericardial effusion appears to be subacute in nature with fibrinous components. The effusion is mostly posteriorly layered. Signed by : Inocente Ayers, Electronically Approved : 09/06/2018 09:14:03
[2018-09-06] MEDS: PANTOPRAZOLE 40 MG TABLET.DR. PO SCH (10:15)
--- NOTE | 2018-09-06 10:20 | PDOC2 ---
CARDIAC CONSULT DATE OF CONSULT Date of Consult DATE: 09/06/18 TIME: 09:30 REASON FOR CONSULT Reason for Consult: pericardial effusion REFERRING PHYSICIAN Referring Physician: John SOURCE Source: Chart review, Patient HISTORY OF PRESENT ILLNESS HISTORY OF PRESENT ILLNESS This is a pleasant 53 yo male admitted for complains of SOA. She has been complaint with his medications and his dialysis. However he presents today with increasing SOA and has been noted with bilateral pleural effusion and pericardial effusion which was moderate accdg to CT and needs to be verified via TTE. He does not have hx of arrhythmias but currently has sinus tach at the 100 but denies any palpitations or presenting chest pain. He felt weak overnight but symptoms of nausea, jaw or arm discomfort. He does have hx of GI bleed and recently had colonoscopy noted with large polyp, hemorrhoids and diverticulosis. So far his Hgb is stable. No prior hx of VTE, CAD. Presently he is anxious as he is about to start HD. No cough, fever or chills. PAST MEDICAL HISTORY Past Medical History Cardiovascular: No pertinent hx Pulmonary: COPD, Other CENTRAL NERVOUS SYSTEM: Other GI: diverticulosis, colon poly, hemorrhoids Heme/Onc: Anemia NOS Hepatobiliary: No pertinent hx Psych: No pertinent hx Rheumatologic: No pertinent hx Infectious disease: Other Renal/: Chronic renal insuff, Chronic renal failure, UTI, hydronephrosis Endocrine: No pertinent hx, Hyperparathyroidism PAST SURGICAL HISTORY Past Surgical History: Other FAMILY HISTORY Family History: Coronary Artery Disease (father) SOCIAL HISTORY Smoke: No ALCOHOL: none Drugs: None Lives: with Family CURRENT MEDICATIONS CURRENT MEDICATIONS Current Medications Medications (Trade) Dose Ordered Sig/Kevin Route PRN Reason Start Time Stop Time Status Last Admin Dose Admin Iohexol (Omnipaque 350 Mg/ml) 90 ml 1X ONCE IV 09/05/18 17:15 09/05/18 17:16 DC 09/05/18 17:21 Polysaccharide Iron Complex (Niferex 150) 150 mg BID66 PO 09/05/18 21:00 09/06/18 05:38 Pantoprazole Sodium (Protonix) 40 mg BIDAC PO 09/05/18 21:00 09/05/18 20:57 Piperacillin Sod/ Tazobactam Sod 2.25 gm/Sodium Chloride 50 ml @ 100 mls/hr 1X ONCE IV 09/05/18 17:45 09/05/18 18:14 DC 09/05/18 18:17 Fentanyl Citrate (Fentanyl 2ml Vial) 50 mcg 1X ONCE IV 09/05/18 18:00 09/05/18 18:01 DC 09/05/18 18:13 Piperacillin Sod/ Tazobactam Sod 2.25 gm/Sodium Chloride 50 ml @ 100 mls/hr Q8HRS IV 09/06/18 00:00 09/06/18 05:38 ALLERGIES ALLERGIES: Coded Allergies: No Known Drug Allergies (Unverified , 08/14/18) ROS Review of System 14 point ROS evaluated with pertinent positives noted per HPI PHYSICAL EXAM General: Alert, Oriented X3, Cooperative, No acute distress HEENT: Atraumatic, Mucous membr. moist/pink Heart: Regular rate (sinus tch), Other (distant heart sounds) Abdomen: Soft, No tenderness Extremities: No cyanosis, No edema Skin: No breakdown, No significant lesion Neuro: Normal speech, Sensation intact Psych/Mental Status: Mental status NL, Other (anxious) MUSCULOSKELETAL: Osteoarthritic changes both hands VITALS VITALS Vital Signs Date Time Temp Pulse Resp B/P (MAP) Pulse Ox O2 Delivery O2 Flow Rate FiO2 09/06/18 07:15 98.3 100 18 143/78 (99) 91 Room Air 98.3 09/05/18 19:30 2.0 LABS Lab: Laboratory Tests Test 09/05/18 14:39 09/05/18 16:11 09/05/18 20:15 09/05/18 23:00 White Blood Count 9.5 x10^3/uL (4.0-11.0) Red Blood Count 3.35 x10^6/uL (4.30-5.70) Hemoglobin 9.5 g/dL (13.0-17.5) Hematocrit 29.7 % (39.0-53.0) Mean Corpuscular Volume 89 fL (79-100) Mean Corpuscular Hemoglobin 28 pg (25-35) Mean Corpuscular Hemoglobin Concent 32 g/dL (31-37) Red Cell Distribution Width 16.1 % (11.5-14.5) Platelet Count 329 x10^3/uL (140-400) Neutrophils (%) (Auto) 64 % (31-73) Lymphocytes (%) (Auto) 11 % (24-48) Monocytes (%) (Auto) 16 % (0-9) Eosinophils (%) (Auto) 8 % (0-3) Basophils (%) (Auto) 1 % (0-3) Neutrophils # (Auto) 6.1 x10^3uL (1.8-7.7) Lymphocytes # (Auto) 1.0 x10^3/uL (1.0-4.8) Monocytes # (Auto) 1.5 x10^3/uL (0.0-1.1) Eosinophils # (Auto) 0.7 x10^3/uL (0.0-0.7) Basophils # (Auto) 0.1 x10^3/uL (0.0-0.2) Prothrombin Time 13.9 SEC (11.7-14.0) Prothromb Time International Ratio 1.1 (0.8-1.1) Sodium Level 139 mmol/L (136-145) Potassium Level 4.6 mmol/L (3.5-5.1) Chloride Level 103 mmol/L (98-107) Carbon Dioxide Level 31 mmol/L (21-32) Anion Gap 5 (6-14) Blood Urea Nitrogen 26 mg/dL (8-26) Creatinine 5.5 mg/dL (0.7-1.3) Estimated GFR (Cockcroft-Gault) 10.9 BUN/Creatinine Ratio 5 (6-20) Glucose Level 105 mg/dL (70-99) Lactic Acid Level 1.1 mmol/L (0.4-2.0) Calcium Level 8.7 mg/dL (8.5-10.1) Total Bilirubin 0.3 mg/dL (0.2-1.0) Aspartate Amino Transf (AST/SGOT) 28 U/L (15-37) Alanine Aminotransferase (ALT/SGPT) 7 U/L (16-63) Alkaline Phosphatase 150 U/L (46-116) Troponin I Quantitative 0.033 ng/mL (0.000-0.055) 0.024 ng/mL (0.000-0.055) 0.027 ng/mL (0.000-0.055) DR-Wit-Z-Type Natriuretic Peptide > 91846 pg/mL (0-124) Total Protein 6.9 g/dL (6.4-8.2) Albumin 1.6 g/dL (3.4-5.0) Albumin/Globulin Ratio 0.3 (1.0-1.7) Thyroid Stimulating Hormone (TSH) 11.342 uIU/mL (0.358-3.74) Ethyl Alcohol Level < 10 mg/dL (0-10) Urine Opiates Screen Neg (NEG) Urine Methadone Screen Neg (NEG) Urine Barbiturates Neg (NEG) Urine Phencyclidine Screen Neg (NEG) Urine Amphetamine/Methamphetamine Neg (NEG) Urine Benzodiazepines Screen Neg (NEG) Urine Cocaine Screen Neg (NEG) Urine Cannabinoids Screen Neg (NEG) Urine Ethyl Alcohol Neg (NEG) ECHOCARDIOGRAM ECHOCARDIOGRAM <Conclusion> RADHA The left ventricular systolic function is normal and the ejection fraction is within normal range. The Ejection Fraction is 55-60%. There is normal LV segmental wall motion. The IVC is normal in size and collapses >50% with inspiration. There is a catheter noted in the SVC without obvious evidence of vegetation or thrombus. No evidence of vegetation on the valves. DATE: 07/10/18 1025 ASSESSMENT/PLAN ASSESSMENT/PLAN 1. Dyspnea: with pleural effusion and small to mod pericardial effusion. Trops normal 2. Acute on chronic diastolic/systolic CHF 3. ESRD 4. Hx of GI bleed: recent colonoscopy 08/14/2018 and EGD prior, no exact bleed source per se but noted with large polyp and DU with persistent anemia prompting prophylactic embolization of the gastroduodenal artery . Hgb stable 9.5 5. Cardiomyopathy: EF now at 35% from 55% 6. Hypothyroidism: TSH 11 per PCP 7. Reactive sinus tach 8. Hc of COPD Recommendations 1. Repeat, trop, EKG, and obtain lipids. 2. With compliance in HD as verified with elastic assembler, with his development of cardiopulmonary effusion and decreasing EF, underlying ischemia would need to be ruled out. Will likely need LHC rather than MPI 3. Pericardial effusion has no hemodynamic significance at this point. Will start on low dose toprol for now. Will possibly need GI input prior to starting any antiplatelet therapy. Restart PPI SANJEEV PASTOR APRN Sep 06, 2018 10:20
[2018-09-06 10:28] LABS: CHOLESTEROL/HDL RATIO 3.4
--- NOTE | 2018-09-06 10:31 | PDOC ---
PROGRESS NOTES History of Present Illness History of Present Illness Assessment/Plan Assessment/Plan SOA, transient hypoxic respiratory failure-at the ER low sats. - Moderate ongoing or recurrent patchy bilateral pulmonary infiltrates and nodules with slight improvement ESRD on HD TTHS Anemia of ESRD Recent massive gI bleed s./p IR coiling - hgb 9.5 weakness Moderate-sized pericardial effusion which has progressed since the prior study. Cardiac tamponade is possible. Cardiomyopathy: EF now at 35% from 55% PLAN: Will likely need [facility] CT chest r.p PE HD per renal Ok to resume all home emds FUll code W/O hypoxia cardiology consult Vitals Vitals Vital Signs Date Time Temp Pulse Resp B/P (MAP) Pulse Ox O2 Delivery O2 Flow Rate FiO2 09/06/18 07:15 98.3 100 18 143/78 (99) 91 Room Air 98.3 09/05/18 19:30 2.0 Physical Exam General: Alert, Oriented X3, Cooperative, No acute distress Heart: Regular rate (sinus tch), Other (distant heart sounds) Lungs: Clear, Crackles Abdomen: Normal bowel sounds, Soft, No tenderness Extremities: No cyanosis, No edema Skin: No breakdown, No significant lesion Labs LABS Portable chest, 09/05/2018: HISTORY: Shortness of breath Comparison is made to a study from 08/25/2018. A right jugular dialysis type catheter remains in place extending into the right atrium. The heart is enlarged. There are moderate patchy bilateral pulmonary opacities. These appear to have improved slightly when compared to the previous study with better definition of the underlying pulmonary vascularity in the upper lobes. There is persistent bilateral pleural thickening compatible with pleural fluid, right greater than left. No new pulmonary abnormality is seen. There is no evidence of pneumothorax. IMPRESSION: 1. Cardiomegaly. 2. Moderate ongoing or recurrent patchy bilateral pulmonary infiltrates and nodules with slight improvement since 08/25/2018. 3. Ongoing bilateral pleural effusions, right greater than left. Electronically signed by: Jt Reyes MD (09/05/2018 4:31 PM) [facility] PQRS compliance Statement One or more of the following individualized dose reduction techniques were utilized for this study: 1. Automated exposure control 2. Adjustment of the mA and/or kV according to patient size 3. Use of iterative reconstruction technique Comparison: CTA of the chest dated August 06, 2018. Findings: No pulmonary embolism is seen today. The previously seen pulmonary emboli are not evident today. Heart size is enlarged. There is a moderate pericardial effusion which has increased from the previous study. No bulky thoracic lymphadenopathy is evident. No focal aneurysmal dilatation or dissection of the thoracic aorta is seen. There is a moderate size left-sided pleural effusion including loculated pleural fluid within the left major fissure. This was seen previously and has not changed significantly. There is a small right-sided pleural effusion. This has improved somewhat given the decrease in the amount of loculated pleural fluid within the major fissure on the right side. Bilateral groundglass lung infiltrates are again evident which have improved. This is indicative of improvement of pulmonary edema. There are bilateral spiculated or irregular nodules. These have improved and may represent improvement of infectious or inflammatory nodules or improvement of metastatic disease if there is a history of chemotherapy treatment. Bilateral mucous plugs are present within peripheral bronchi. The proximal bronchial tree is patent otherwise. No pneumothorax is seen. No lytic process is seen. IMPRESSION: No pulmonary embolism today. Moderate-sized pericardial effusion which has progressed since the prior study. Cardiac tamponade is possible. Bilateral pleural effusions. Moderate on the left which is unchanged. Small on the right which has improved. Mild improvement in bilateral spiculated lung nodules. Improvement of bilateral pulmonary edema since the previous study. Bilateral mucous plugs are evident within peripheral bronchi. Note-this critical result was discussed with Dr. Isaac Lopez in the emergency room at 5:29 PM on September 05, 2018. Laboratory Tests Test 09/05/18 14:39 09/05/18 16:11 09/05/18 20:15 09/05/18 23:00 White Blood Count 9.5 x10^3/uL (4.0-11.0) Red Blood Count 3.35 x10^6/uL (4.30-5.70) Hemoglobin 9.5 g/dL (13.0-17.5) Hematocrit 29.7 % (39.0-53.0) Mean Corpuscular Volume 89 fL (79-100) Mean Corpuscular Hemoglobin 28 pg (25-35) Mean Corpuscular Hemoglobin Concent 32 g/dL (31-37) Red Cell Distribution Width 16.1 % (11.5-14.5) Platelet Count 329 x10^3/uL (140-400) Neutrophils (%) (Auto) 64 % (31-73) Lymphocytes (%) (Auto) 11 % (24-48) Monocytes (%) (Auto) 16 % (0-9) Eosinophils (%) (Auto) 8 % (0-3) Basophils (%) (Auto) 1 % (0-3) Neutrophils # (Auto) 6.1 x10^3uL (1.8-7.7) Lymphocytes # (Auto) 1.0 x10^3/uL (1.0-4.8) Monocytes # (Auto) 1.5 x10^3/uL (0.0-1.1) Eosinophils # (Auto) 0.7 x10^3/uL (0.0-0.7) Basophils # (Auto) 0.1 x10^3/uL (0.0-0.2) Prothrombin Time 13.9 SEC (11.7-14.0) Prothromb Time International Ratio 1.1 (0.8-1.1) Sodium Level 139 mmol/L (136-145) Potassium Level 4.6 mmol/L (3.5-5.1) Chloride Level 103 mmol/L (98-107) Carbon Dioxide Level 31 mmol/L (21-32) Anion Gap 5 (6-14) Blood Urea Nitrogen 26 mg/dL (8-26) Creatinine 5.5 mg/dL (0.7-1.3) Estimated GFR (Cockcroft-Gault) 10.9 BUN/Creatinine Ratio 5 (6-20) Glucose Level 105 mg/dL (70-99) Lactic Acid Level 1.1 mmol/L (0.4-2.0) Calcium Level 8.7 mg/dL (8.5-10.1) Total Bilirubin 0.3 mg/dL (0.2-1.0) Aspartate Amino Transf (AST/SGOT) 28 U/L (15-37) Alanine Aminotransferase (ALT/SGPT) 7 U/L (16-63) Alkaline Phosphatase 150 U/L (46-116) Troponin I Quantitative 0.033 ng/mL (0.000-0.055) 0.024 ng/mL (0.000-0.055) 0.027 ng/mL (0.000-0.055) MF-Pja-J-Type Natriuretic Peptide > 43143 pg/mL (0-124) Total Protein 6.9 g/dL (6.4-8.2) Albumin 1.6 g/dL (3.4-5.0) Albumin/Globulin Ratio 0.3 (1.0-1.7) Thyroid Stimulating Hormone (TSH) 11.342 uIU/mL (0.358-3.74) Ethyl Alcohol Level < 10 mg/dL (0-10) Urine Opiates Screen Neg (NEG) Urine Methadone Screen Neg (NEG) Urine Barbiturates Neg (NEG) Urine Phencyclidine Screen Neg (NEG) Urine Amphetamine/Methamphetamine Neg (NEG) Urine Benzodiazepines Screen Neg (NEG) Urine Cocaine Screen Neg (NEG) Urine Cannabinoids Screen Neg (NEG) Urine Ethyl Alcohol Neg (NEG) Test 09/06/18 07:54 Triglycerides Level 121 mg/dL (0-150) Cholesterol Level 99 mg/dL (0-200) LDL Cholesterol, Calculated 46 mg/dL (0-100) VLDL Cholesterol, Calculated 24 mg/dL (0-40) Non-HDL Cholesterol Calculated 70 mg/dL (0-129) HDL Cholesterol 29 mg/dL (40-60) Cholesterol/HDL Ratio 3.4 Hepatitis B Surface Antigen Nonreactive (Nonreactive) Assessment and Plan Assessmemt and Plan Problems Medical Problems: (1) Dyspnea Status: Acute Comment Review of Relevant I have reviewed the following items allyson (where applicable) has been applied. Labs Laboratory Tests Test 09/05/18 14:39 09/05/18 16:11 09/05/18 20:15 09/05/18 23:00 White Blood Count 9.5 x10^3/uL (4.0-11.0) Red Blood Count 3.35 x10^6/uL (4.30-5.70) Hemoglobin 9.5 g/dL (13.0-17.5) Hematocrit 29.7 % (39.0-53.0) Mean Corpuscular Volume 89 fL (79-100) Mean Corpuscular Hemoglobin 28 pg (25-35) Mean Corpuscular Hemoglobin Concent 32 g/dL (31-37) Red Cell Distribution Width 16.1 % (11.5-14.5) Platelet Count 329 x10^3/uL (140-400) Neutrophils (%) (Auto) 64 % (31-73) Lymphocytes (%) (Auto) 11 % (24-48) Monocytes (%) (Auto) 16 % (0-9) Eosinophils (%) (Auto) 8 % (0-3) Basophils (%) (Auto) 1 % (0-3) Neutrophils # (Auto) 6.1 x10^3uL (1.8-7.7) Lymphocytes # (Auto) 1.0 x10^3/uL (1.0-4.8) Monocytes # (Auto) 1.5 x10^3/uL (0.0-1.1) Eosinophils # (Auto) 0.7 x10^3/uL (0.0-0.7) Basophils # (Auto) 0.1 x10^3/uL (0.0-0.2) Prothrombin Time 13.9 SEC (11.7-14.0) Prothromb Time International Ratio 1.1 (0.8-1.1) Sodium Level 139 mmol/L (136-145) Potassium Level 4.6 mmol/L (3.5-5.1) Chloride Level 103 mmol/L (98-107) Carbon Dioxide Level 31 mmol/L (21-32) Anion Gap 5 (6-14) Blood Urea Nitrogen 26 mg/dL (8-26) Creatinine 5.5 mg/dL (0.7-1.3) Estimated GFR (Cockcroft-Gault) 10.9 BUN/Creatinine Ratio 5 (6-20) Glucose Level 105 mg/dL (70-99) Lactic Acid Level 1.1 mmol/L (0.4-2.0) Calcium Level 8.7 mg/dL (8.5-10.1) Total Bilirubin 0.3 mg/dL (0.2-1.0) Aspartate Amino Transf (AST/SGOT) 28 U/L (15-37) Alanine Aminotransferase (ALT/SGPT) 7 U/L (16-63) Alkaline Phosphatase 150 U/L (46-116) Troponin I Quantitative 0.033 ng/mL (0.000-0.055) 0.024 ng/mL (0.000-0.055) 0.027 ng/mL (0.000-0.055) LZ-Kin-P-Type Natriuretic Peptide > 97068 pg/mL (0-124) Total Protein 6.9 g/dL (6.4-8.2) Albumin 1.6 g/dL (3.4-5.0) Albumin/Globulin Ratio 0.3 (1.0-1.7) Thyroid Stimulating Hormone (TSH) 11.342 uIU/mL (0.358-3.74) Ethyl Alcohol Level < 10 mg/dL (0-10) Urine Opiates Screen Neg (NEG) Urine Methadone Screen Neg (NEG) Urine Barbiturates Neg (NEG) Urine Phencyclidine Screen Neg (NEG) Urine Amphetamine/Methamphetamine Neg (NEG) Urine Benzodiazepines Screen Neg (NEG) Urine Cocaine Screen Neg (NEG) Urine Cannabinoids Screen Neg (NEG) Urine Ethyl Alcohol Neg (NEG) Test 09/06/18 07:54 Triglycerides Level 121 mg/dL (0-150) Cholesterol Level 99 mg/dL (0-200) LDL Cholesterol, Calculated 46 mg/dL (0-100) VLDL Cholesterol, Calculated 24 mg/dL (0-40) Non-HDL Cholesterol Calculated 70 mg/dL (0-129) HDL Cholesterol 29 mg/dL (40-60) Cholesterol/HDL Ratio 3.4 Hepatitis B Surface Antigen Nonreactive (Nonreactive) Laboratory Tests Test 09/05/18 14:39 09/05/18 16:11 09/05/18 20:15 09/05/18 23:00 White Blood Count 9.5 x10^3/uL (4.0-11.0) Red Blood Count 3.35 x10^6/uL (4.30-5.70) Hemoglobin 9.5 g/dL (13.0-17.5) Hematocrit 29.7 % (39.0-53.0) Mean Corpuscular Volume 89 fL (79-100) Mean Corpuscular Hemoglobin 28 pg (25-35) Mean Corpuscular Hemoglobin Concent 32 g/dL (31-37) Red Cell Distribution Width 16.1 % (11.5-14.5) Platelet Count 329 x10^3/uL (140-400) Neutrophils (%) (Auto) 64 % (31-73) Lymphocytes (%) (Auto) 11 % (24-48) Monocytes (%) (Auto) 16 % (0-9) Eosinophils (%) (Auto) 8 % (0-3) Basophils (%) (Auto) 1 % (0-3) Neutrophils # (Auto) 6.1 x10^3uL (1.8-7.7) Lymphocytes # (Auto) 1.0 x10^3/uL (1.0-4.8) Monocytes # (Auto) 1.5 x10^3/uL (0.0-1.1) Eosinophils # (Auto) 0.7 x10^3/uL (0.0-0.7) Basophils # (Auto) 0.1 x10^3/uL (0.0-0.2) Prothrombin Time 13.9 SEC (11.7-14.0) Prothromb Time International Ratio 1.1 (0.8-1.1) Sodium Level 139 mmol/L (136-145) Potassium Level 4.6 mmol/L (3.5-5.1) Chloride Level 103 mmol/L (98-107) Carbon Dioxide Level 31 mmol/L (21-32) Anion Gap 5 (6-14) Blood Urea Nitrogen 26 mg/dL (8-26) Creatinine 5.5 mg/dL (0.7-1.3) Estimated GFR (Cockcroft-Gault) 10.9 BUN/Creatinine Ratio 5 (6-20) Glucose Level 105 mg/dL (70-99) Lactic Acid Level 1.1 mmol/L (0.4-2.0) Calcium Level 8.7 mg/dL (8.5-10.1) Total Bilirubin 0.3 mg/dL (0.2-1.0) Aspartate Amino Transf (AST/SGOT) 28 U/L (15-37) Alanine Aminotransferase (ALT/SGPT) 7 U/L (16-63) Alkaline Phosphatase 150 U/L (46-116) Troponin I Quantitative 0.033 ng/mL (0.000-0.055) 0.024 ng/mL (0.000-0.055) 0.027 ng/mL (0.000-0.055) QR-Jho-R-Type Natriuretic Peptide > 19559 pg/mL (0-124) Total Protein 6.9 g/dL (6.4-8.2) Albumin 1.6 g/dL (3.4-5.0) Albumin/Globulin Ratio 0.3 (1.0-1.7) Thyroid Stimulating Hormone (TSH) 11.342 uIU/mL (0.358-3.74) Ethyl Alcohol Level < 10 mg/dL (0-10) Urine Opiates Screen Neg (NEG) Urine Methadone Screen Neg (NEG) Urine Barbiturates Neg (NEG) Urine Phencyclidine Screen Neg (NEG) Urine Amphetamine/Methamphetamine Neg (NEG) Urine Benzodiazepines Screen Neg (NEG) Urine Cocaine Screen Neg (NEG) Urine Cannabinoids Screen Neg (NEG) Urine Ethyl Alcohol Neg (NEG) Test 09/06/18 07:54 Triglycerides Level 121 mg/dL (0-150) Cholesterol Level 99 mg/dL (0-200) LDL Cholesterol, Calculated 46 mg/dL (0-100) VLDL Cholesterol, Calculated 24 mg/dL (0-40) Non-HDL Cholesterol Calculated 70 mg/dL (0-129) HDL Cholesterol 29 mg/dL (40-60) Cholesterol/HDL Ratio 3.4 Hepatitis B Surface Antigen Nonreactive (Nonreactive) Medications Current Medications Iohexol (Omnipaque 350 Mg/ml) 90 ml 1X ONCE IV Last administered on 09/05/18at 17:21; Start 09/05/18 at 17:15; Stop 09/05/18 at 17:16; Status DC Info (CONTRAST GIVEN -- Rx MONITORING) 1 each PRN DAILY PRN MC SEE COMMENTS; Start 09/05/18 at 17:15; Stop 09/07/18 at 17:14 Polysaccharide Iron Complex (Niferex 150) 150 mg BID66 PO Last administered on 09/06/18at 05:38; Start 09/05/18 at 21:00 Darbepoetin Napoleon (Aranesp) 60 mcg WEEKLYHS SQ ; Start 09/10/18 at 21:00 Pantoprazole Sodium (Protonix) 40 mg BIDAC PO Last administered on 09/05/18at 20 :57; Start 09/05/18 at 21:00; Stop 09/06/18 at 10:25; Status DC Vitamin B Complex/ Vitamin C (Massiel-Darrel) 1 tab DAILY PO ; Start 09/06/18 at 09: 00 Calcium Acetate (Phoslo) 667 mg TIDWMEALS PO ; Start 09/06/18 at 08:00 Piperacillin Sod/ Tazobactam Sod (Zosyn Per Pharmacy) 1 each PRN DAILY PRN MC SEE COMMENTS; Start 09/05/18 at 17:45 Piperacillin Sod/ Tazobactam Sod 2.25 gm/Sodium Chloride 50 ml @ 100 mls/hr 1X ONCE IV Last administered on 09/05/18at 18:17; Start 09/05/18 at 17:45; Stop 09/05/18 at 18:14; Status DC Fentanyl Citrate (Fentanyl 2ml Vial) 50 mcg 1X ONCE IV Last administered on at 18:13; Start 09/05/18 at 18:00; Stop 09/05/18 at 18:01; Status DC Piperacillin Sod/ Tazobactam Sod 2.25 gm/Sodium Chloride 50 ml @ 100 mls/hr Q8HRS IV Last administered on 09/06/18at 05:38; Start 09/06/18 at 00:00 Tramadol HCl (Ultram) 50 mg PRN Q6HRS PRN PO MODERATE PAIN; Start 09/06/18 at 01:30 Acetaminophen (Tylenol) 650 mg PRN Q6HRS PRN PO MILD PAIN; Start 09/06/18 at 01 :30 Sodium Chloride 1,000 ml @ 1,000 mls/hr Q1H PRN IV hypotension; Start 09/06/18 at 08:09; Stop 09/06/18 at 14:08 Albumin Human 200 ml @ 200 mls/hr 1X PRN PRN IV Hypotension; Start 09/06/18 at 08:15; Stop 09/06/18 at 14:14 Acetaminophen (Tylenol) 500 mg 1X PRN PRN PO MILD PAIN / TEMP; Start 09/06/18 at 08:15; Stop 09/07/18 at 08:14 Diphenhydramine HCl (Benadryl) 25 mg 1X PRN PRN IV ITCHING; Start 09/06/18 at 08:15; Stop 09/07/18 at 08:14 Diphenhydramine HCl (Benadryl) 25 mg 1X PRN PRN IV ITCHING; Start 09/06/18 at 08:15; Stop 09/07/18 at 08:14 Sodium Chloride 1,000 ml @ 400 mls/hr Q2H30M PRN IV PATENCY; Start 09/06/18 at 08:09; Stop 09/06/18 at 20:08 Info (PHARMACY MONITORING -- do not chart) 1 each PRN DAILY PRN MC SEE COMMENTS ; Start 09/06/18 at 08:15 Metoprolol Succinate (Toprol Xl) 25 mg DAILY PO ; Start 09/06/18 at 11:00 Pantoprazole Sodium (Protonix) 40 mg DAILYAC PO ; Start 09/06/18 at 10:15 Active Scripts Active [Pantoprazole] 40 MG Tablet.dr 40 Mg PO BIDAC 30 Days [Darbepoetin Napoleon In Polysorbat] 60 MCG/0.3 ML Disp.syrin 60 Mcg SQ WEEKLYHS 7 Days Poly-Iron (Iron Polysaccharides Complex) 150 Mg Capsule 150 Mg PO BID66 30 Days Vitals/I & O Vital Sign - Last 24 Hours 09/05/18 09/05/18 09/05/18 09/05/18 14:15 14:38 15:08 15:38 Temp 97.8 97.8 Pulse 109 108 110 106 Resp 20 B/P (MAP) 161/85 (110) 149/88 (108) 154/86 (108) 161/83 (109) Pulse Ox 97 94 92 92 O2 Delivery Room Air Nasal Cannula Nasal Cannula Nasal Cannula O2 Flow Rate 2.0 2.0 2.0 09/05/18 09/05/18 09/05/18 09/05/18 16:08 16:38 17:30 18:00 Pulse 110 108 106 112 B/P (MAP) 155/86 (109) 164/81 (108) 158/91 (113) 154/89 (110) Pulse Ox 92 96 97 95 O2 Delivery Nasal Cannula Nasal Cannula Nasal Cannula Nasal Cannula O2 Flow Rate 2.0 2.0 2.0 2.0 09/05/18 09/05/18 09/05/18 09/05/18 18:13 18:30 19:30 21:03 Temp 98.6 98.6 Pulse 108 111 Resp 20 B/P (MAP) 156/87 (110) 150/85 (106) Pulse Ox 96 95 91 O2 Delivery Nasal Cannula Nasal Cannula Nasal Cannula Room Air O2 Flow Rate 2.0 2.0 2.0 09/05/18 09/06/18 09/06/18 23:00 02:49 07:15 Temp 98.6 98.1 98.3 98.6 98.1 98.3 Pulse 109 111 100 Resp 18 18 18 B/P (MAP) 148/82 (104) 137/79 (98) 143/78 (99) Pulse Ox 95 90 91 O2 Delivery Room Air Room Air Room Air Intake and Output 09/05/18 09/05/18 09/06/18 15:00 23:00 07:00 Intake Total 530 ml 570 ml Output Total 200 ml 600 ml Balance 330 ml -30 ml ORQUIDEA GAMINO MD Sep 06, 2018 10:31
--- NOTE | 2018-09-06 10:33 | EKG ---
[facility] [address] [place] [id number] Test Date: 2018-09-06 Test Time: 10:20:04 Pat Name: FELICE GROVE Department: Room: 510 Gender: M Emts: : 1965 Requested By: SANJEEV PASTOR Order Number: [id number] Reading MD: Tarik Valentine Measurements Intervals [place] Rate: 106 P: 25 WV: 142 QRS: 16 QRSD: 78 T: 66 QT: 358 QTc: 477 Interpretive Statements SINUS TACHYCARDIA Electronically Signed On 09-12-2018 8:29:15 EYEGLASS CUTTER by Tarik Valentine
--- NOTE | 2018-09-06 10:39 | EKG ---
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
[2018-09-06] MEDS ORDERED: fentaNYL PF VIAL 100 MCG/2 ML VIAL IV ONE (11:30)
--- NOTE | 2018-09-06 12:38 | PDOC2 ---
CONSULT Date of Consult Date of Consult DATE: 09/06/18 TIME: 12:34 Reason for Consult Reason for Consult: SOB AND ESRD Referring Physician Referring Physician: ABRAHAM Identification/Chief Complaint Chief Complaint SOB Source Source: Chart review, Patient History of Present Illness Reason for Visit: THIS IS A 53 YR OLD WITH ESRD DUE TO CHRONIC HYDRONEPHROSIS. ADMITTED WITH SOB AND HYPOXIA AND RESP FAILURE. LABS C/W HIS ESRD. ALSO ANEMIA. RECENT ADMIT WAS FOR ANEMIA BUT CURRENTLY HGB STABLE. ON OP HD TTS. STATES HE WENT FOR HIS LAST SESSION Past Medical History Cardiovascular: No pertinent hx, HTN Pulmonary: Bronchitis, COPD, Other CENTRAL NERVOUS SYSTEM: Other GI: No pertinent hx, GI bleed Heme/Onc: Anemia NOS Hepatobiliary: No pertinent hx Psych: No pertinent hx Rheumatologic: No pertinent hx Infectious disease: Other Renal/: Chronic renal insuff, Chronic renal failure, UTI, Other Endocrine: No pertinent hx, Hyperparathyroidism Past Surgical History Past Surgical History: Other Family History Family History: Coronary Artery Disease (father) Social History No ALCOHOL: none Drugs: None Lives: with Family Current Problem List Problem List Problems Medical Problems: (1) Dyspnea Status: Acute Current Medications Current Medications Current Medications Iohexol (Omnipaque 350 Mg/ml) 90 ml 1X ONCE IV Last administered on 09/05/18at 17:21; Start 09/05/18 at 17:15; Stop 09/05/18 at 17:16; Status DC Info (CONTRAST GIVEN -- Rx MONITORING) 1 each PRN DAILY PRN MC SEE COMMENTS; Start 09/05/18 at 17:15; Stop 09/07/18 at 17:14 Polysaccharide Iron Complex (Niferex 150) 150 mg BID66 PO Last administered on 09/06/18at 05:38; Start 09/05/18 at 21:00 Darbepoetin Napoleon (Aranesp) 60 mcg WEEKLYHS SQ ; Start 09/10/18 at 21:00 Pantoprazole Sodium (Protonix) 40 mg BIDAC PO Last administered on 09/05/18at 20 :57; Start 09/05/18 at 21:00; Stop 09/06/18 at 10:25; Status DC Vitamin B Complex/ Vitamin C (Massiel-Darrel) 1 tab DAILY PO ; Start 09/06/18 at 09: 00 Calcium Acetate (Phoslo) 667 mg TIDWMEALS PO ; Start 09/06/18 at 08:00 Piperacillin Sod/ Tazobactam Sod (Zosyn Per Pharmacy) 1 each PRN DAILY PRN MC SEE COMMENTS; Start 09/05/18 at 17:45 Piperacillin Sod/ Tazobactam Sod 2.25 gm/Sodium Chloride 50 ml @ 100 mls/hr 1X ONCE IV Last administered on 09/05/18at 18:17; Start 09/05/18 at 17:45; Stop 09/05/18 at 18:14; Status DC Fentanyl Citrate (Fentanyl 2ml Vial) 50 mcg 1X ONCE IV Last administered on at 18:13; Start 09/05/18 at 18:00; Stop 09/05/18 at 18:01; Status DC Piperacillin Sod/ Tazobactam Sod 2.25 gm/Sodium Chloride 50 ml @ 100 mls/hr Q8HRS IV Last administered on 09/06/18at 05:38; Start 09/06/18 at 00:00 Tramadol HCl (Ultram) 50 mg PRN Q6HRS PRN PO MODERATE PAIN; Start 09/06/18 at 01:30 Acetaminophen (Tylenol) 650 mg PRN Q6HRS PRN PO MILD PAIN; Start 09/06/18 at 01 :30 Sodium Chloride 1,000 ml @ 1,000 mls/hr Q1H PRN IV hypotension; Start 09/06/18 at 08:09; Stop 09/06/18 at 14:08 Albumin Human 200 ml @ 200 mls/hr 1X PRN PRN IV Hypotension; Start 09/06/18 at 08:15; Stop 09/06/18 at 14:14 Acetaminophen (Tylenol) 500 mg 1X PRN PRN PO MILD PAIN / TEMP; Start 09/06/18 at 08:15; Stop 09/07/18 at 08:14 Diphenhydramine HCl (Benadryl) 25 mg 1X PRN PRN IV ITCHING; Start 09/06/18 at 08:15; Stop 09/07/18 at 08:14 Diphenhydramine HCl (Benadryl) 25 mg 1X PRN PRN IV ITCHING; Start 09/06/18 at 08:15; Stop 09/07/18 at 08:14 Sodium Chloride 1,000 ml @ 400 mls/hr Q2H30M PRN IV PATENCY; Start 09/06/18 at 08:09; Stop 09/06/18 at 20:08 Info (PHARMACY MONITORING -- do not chart) 1 each PRN DAILY PRN MC SEE COMMENTS ; Start 09/06/18 at 08:15 Metoprolol Succinate (Toprol Xl) 25 mg DAILY PO ; Start 09/06/18 at 11:00 Pantoprazole Sodium (Protonix) 40 mg DAILYAC PO ; Start 09/06/18 at 10:15 Fentanyl Citrate (Fentanyl 2ml Vial) 50 mcg 1X ONCE IV Last administered on at 11:54; Start 09/06/18 at 11:30; Stop 09/06/18 at 11:31; Status DC Active Scripts Active [Pantoprazole] 40 MG Tablet.dr 40 Mg PO BIDAC 30 Days [Darbepoetin Napoleon In Polysorbat] 60 MCG/0.3 ML Disp.syrin 60 Mcg SQ WEEKLYHS 7 Days Poly-Iron (Iron Polysaccharides Complex) 150 Mg Capsule 150 Mg PO BID66 30 Days Allergies Allergies: Coded Allergies: No Known Drug Allergies (Unverified , 08/14/18) ROS General: YES: Fatigue, Malaise, Appetite PSYCHOLOGICAL ROS: YES: Anxiety, Disorientation Eyes: Yes Decreased vision HEENT: YES: Heacaches Respiratory: YES: Cough, Orthopnea, Shortness of breath, SOB with excertion Cardiovascular: yes Orthopnea, yes Lt Headedness Gastrointestinal: Yes Constipation Genitourinary: YES Other (ANURIA) Musculoskeletal: Yes Joint Stiffness Neurological: Yes Weakness Skin: Yes Dry Skin Physical Exam General: Alert, Oriented X3, Cooperative, mild distress HEENT: Atraumatic, PERRLA, Mucous membr. moist/pink Lungs: Clear to auscultation Heart: Regular rate, Normal S1, Normal S2 Abdomen: Normal bowel sounds, Soft, No tenderness, No hepatosplenomegaly Extremities: No clubbing, No cyanosis Skin: No breakdown Neuro: Normal speech, Cranial nerves 3-12 NL Psych/Mental Status: Mental status NL, Mood NL MUSCULOSKELETAL: No joint tenderness, No deformity, No swelling Vitals VITALS Vital Signs Date Time Temp Pulse Resp B/P (MAP) Pulse Ox O2 Delivery O2 Flow Rate FiO2 09/06/18 11:54 16 09/06/18 08:00 Nasal Cannula 2.0 09/06/18 07:15 98.3 100 143/78 (99) 91 98.3 Labs Labs Laboratory Tests Test 09/05/18 14:39 09/05/18 16:11 09/05/18 20:15 09/05/18 23:00 White Blood Count 9.5 x10^3/uL (4.0-11.0) Red Blood Count 3.35 x10^6/uL (4.30-5.70) Hemoglobin 9.5 g/dL (13.0-17.5) Hematocrit 29.7 % (39.0-53.0) Mean Corpuscular Volume 89 fL (79-100) Mean Corpuscular Hemoglobin 28 pg (25-35) Mean Corpuscular Hemoglobin Concent 32 g/dL (31-37) Red Cell Distribution Width 16.1 % (11.5-14.5) Platelet Count 329 x10^3/uL (140-400) Neutrophils (%) (Auto) 64 % (31-73) Lymphocytes (%) (Auto) 11 % (24-48) Monocytes (%) (Auto) 16 % (0-9) Eosinophils (%) (Auto) 8 % (0-3) Basophils (%) (Auto) 1 % (0-3) Neutrophils # (Auto) 6.1 x10^3uL (1.8-7.7) Lymphocytes # (Auto) 1.0 x10^3/uL (1.0-4.8) Monocytes # (Auto) 1.5 x10^3/uL (0.0-1.1) Eosinophils # (Auto) 0.7 x10^3/uL (0.0-0.7) Basophils # (Auto) 0.1 x10^3/uL (0.0-0.2) Prothrombin Time 13.9 SEC (11.7-14.0) Prothromb Time International Ratio 1.1 (0.8-1.1) Sodium Level 139 mmol/L (136-145) Potassium Level 4.6 mmol/L (3.5-5.1) Chloride Level 103 mmol/L (98-107) Carbon Dioxide Level 31 mmol/L (21-32) Anion Gap 5 (6-14) Blood Urea Nitrogen 26 mg/dL (8-26) Creatinine 5.5 mg/dL (0.7-1.3) Estimated GFR (Cockcroft-Gault) 10.9 BUN/Creatinine Ratio 5 (6-20) Glucose Level 105 mg/dL (70-99) Lactic Acid Level 1.1 mmol/L (0.4-2.0) Calcium Level 8.7 mg/dL (8.5-10.1) Total Bilirubin 0.3 mg/dL (0.2-1.0) Aspartate Amino Transf (AST/SGOT) 28 U/L (15-37) Alanine Aminotransferase (ALT/SGPT) 7 U/L (16-63) Alkaline Phosphatase 150 U/L (46-116) Troponin I Quantitative 0.033 ng/mL (0.000-0.055) 0.024 ng/mL (0.000-0.055) 0.027 ng/mL (0.000-0.055) YV-Mcr-H-Type Natriuretic Peptide > 99656 pg/mL (0-124) Total Protein 6.9 g/dL (6.4-8.2) Albumin 1.6 g/dL (3.4-5.0) Albumin/Globulin Ratio 0.3 (1.0-1.7) Thyroid Stimulating Hormone (TSH) 11.342 uIU/mL (0.358-3.74) Ethyl Alcohol Level < 10 mg/dL (0-10) Urine Opiates Screen Neg (NEG) Urine Methadone Screen Neg (NEG) Urine Barbiturates Neg (NEG) Urine Phencyclidine Screen Neg (NEG) Urine Amphetamine/Methamphetamine Neg (NEG) Urine Benzodiazepines Screen Neg (NEG) Urine Cocaine Screen Neg (NEG) Urine Cannabinoids Screen Neg (NEG) Urine Ethyl Alcohol Neg (NEG) Test 09/06/18 07:54 Troponin I Quantitative 0.025 ng/mL (0.000-0.055) Triglycerides Level 121 mg/dL (0-150) Cholesterol Level 99 mg/dL (0-200) LDL Cholesterol, Calculated 46 mg/dL (0-100) VLDL Cholesterol, Calculated 24 mg/dL (0-40) Non-HDL Cholesterol Calculated 70 mg/dL (0-129) HDL Cholesterol 29 mg/dL (40-60) Cholesterol/HDL Ratio 3.4 Hepatitis B Surface Antigen Nonreactive (Nonreactive) Laboratory Tests Test 09/05/18 14:39 09/05/18 16:11 09/05/18 20:15 09/05/18 23:00 White Blood Count 9.5 x10^3/uL (4.0-11.0) Red Blood Count 3.35 x10^6/uL (4.30-5.70) Hemoglobin 9.5 g/dL (13.0-17.5) Hematocrit 29.7 % (39.0-53.0) Mean Corpuscular Volume 89 fL (79-100) Mean Corpuscular Hemoglobin 28 pg (25-35) Mean Corpuscular Hemoglobin Concent 32 g/dL (31-37) Red Cell Distribution Width 16.1 % (11.5-14.5) Platelet Count 329 x10^3/uL (140-400) Neutrophils (%) (Auto) 64 % (31-73) Lymphocytes (%) (Auto) 11 % (24-48) Monocytes (%) (Auto) 16 % (0-9) Eosinophils (%) (Auto) 8 % (0-3) Basophils (%) (Auto) 1 % (0-3) Neutrophils # (Auto) 6.1 x10^3uL (1.8-7.7) Lymphocytes # (Auto) 1.0 x10^3/uL (1.0-4.8) Monocytes # (Auto) 1.5 x10^3/uL (0.0-1.1) Eosinophils # (Auto) 0.7 x10^3/uL (0.0-0.7) Basophils # (Auto) 0.1 x10^3/uL (0.0-0.2) Prothrombin Time 13.9 SEC (11.7-14.0) Prothromb Time International Ratio 1.1 (0.8-1.1) Sodium Level 139 mmol/L (136-145) Potassium Level 4.6 mmol/L (3.5-5.1) Chloride Level 103 mmol/L (98-107) Carbon Dioxide Level 31 mmol/L (21-32) Anion Gap 5 (6-14) Blood Urea Nitrogen 26 mg/dL (8-26) Creatinine 5.5 mg/dL (0.7-1.3) Estimated GFR (Cockcroft-Gault) 10.9 BUN/Creatinine Ratio 5 (6-20) Glucose Level 105 mg/dL (70-99) Lactic Acid Level 1.1 mmol/L (0.4-2.0) Calcium Level 8.7 mg/dL (8.5-10.1) Total Bilirubin 0.3 mg/dL (0.2-1.0) Aspartate Amino Transf (AST/SGOT) 28 U/L (15-37) Alanine Aminotransferase (ALT/SGPT) 7 U/L (16-63) Alkaline Phosphatase 150 U/L (46-116) Troponin I Quantitative 0.033 ng/mL (0.000-0.055) 0.024 ng/mL (0.000-0.055) 0.027 ng/mL (0.000-0.055) VY-Iut-O-Type Natriuretic Peptide > 43499 pg/mL (0-124) Total Protein 6.9 g/dL (6.4-8.2) Albumin 1.6 g/dL (3.4-5.0) Albumin/Globulin Ratio 0.3 (1.0-1.7) Thyroid Stimulating Hormone (TSH) 11.342 uIU/mL (0.358-3.74) Ethyl Alcohol Level < 10 mg/dL (0-10) Urine Opiates Screen Neg (NEG) Urine Methadone Screen Neg (NEG) Urine Barbiturates Neg (NEG) Urine Phencyclidine Screen Neg (NEG) Urine Amphetamine/Methamphetamine Neg (NEG) Urine Benzodiazepines Screen Neg (NEG) Urine Cocaine Screen Neg (NEG) Urine Cannabinoids Screen Neg (NEG) Urine Ethyl Alcohol Neg (NEG) Test 09/06/18 07:54 Troponin I Quantitative 0.025 ng/mL (0.000-0.055) Triglycerides Level 121 mg/dL (0-150) Cholesterol Level 99 mg/dL (0-200) LDL Cholesterol, Calculated 46 mg/dL (0-100) VLDL Cholesterol, Calculated 24 mg/dL (0-40) Non-HDL Cholesterol Calculated 70 mg/dL (0-129) HDL Cholesterol 29 mg/dL (40-60) Cholesterol/HDL Ratio 3.4 Hepatitis B Surface Antigen Nonreactive (Nonreactive) Assessment/Plan Assessment/Plan IMP DIASTOLIC AND SYSTOLIC ACUTE ON CHRONIC CHF ACUTE HYPOXIC RESP FAILURE ANEMIA ? DRUG SEEKING ESRD DUE TO CHRONIC HYDRONEPHROSIS HTN HX NON COMPLIANCE HX ? HYPOTHYROID PLAN ARANESP HD TODAY UF TO DW CONSIDER THYROID SUPPLEMENT MARIIA VIDAL MD Sep 06, 2018 12:38
[2018-09-06] MEDS: METOPROLOL SUCC 24HR ER 25 MG TAB.ER.24H. PO SCH (14:00)
[2018-09-06] MEDS: FOLIC/VIT B COMP W-C (RENAL) TABLET. PO SCH (14:00)
[2018-09-06 15:00] VITALS: BP 155/81
[2018-09-06 19:00] VITALS: BP 130/79
[2018-09-06] MEDS: LACTOBACILLUS RHAMNOSUS GG 1 CAPSULE. PO SCH (20:44)
[2018-09-06] MEDS: DARBEPOETIN ALFA 60 MCG/0.3 ML DISP.SYRIN. SQ SCH (20:45)
[2018-09-06 23:00] VITALS: BP 118/71
[2018-09-07 03:00] VITALS: BP 151/84
[2018-09-07] MEDS: IRON POLYSACCHARIDE COMPLEX 150 MG CAPSULE PO SCH ×2 (05:46→17:36)
[2018-09-07] MEDS: PIPERACILLIN/TAZOBACTAM 2.25 GM in IV NORMAL SALINE 50ML 50 ML IV SCH ×3 (05:46→21:28)
[2018-09-07 07:00] VITALS: BP 124/74
--- NOTE | 2018-09-07 08:25 | NUR ---
SW following for discharge planning. Pt has dialysis through [facility] Spoke with clinic and notified them pt is in hospital. Pt also has home 02 with [facility]. No PT/OT evaluation at this time. SW will continue to follow.
[2018-09-07] MEDS: METOPROLOL SUCC 24HR ER 25 MG TAB.ER.24H. PO SCH ×2 (09:00→09:29)
[2018-09-07] MEDS: FOLIC/VIT B COMP W-C (RENAL) TABLET. PO SCH (09:27)
[2018-09-07] MEDS: CALCIUM ACETATE 667 MG CAPSULE PO SCH ×3 (09:27→17:17)
[2018-09-07] MEDS: traMADol 50 MG TABLET PO PRN ×2 (09:28→17:18)
[2018-09-07] MEDS: LACTOBACILLUS RHAMNOSUS GG 1 CAPSULE. PO SCH ×2 (09:28→21:26)
[2018-09-07] MEDS: PANTOPRAZOLE 40 MG TABLET.DR. PO SCH (09:30)
[2018-09-07 11:00] VITALS: BP 131/83
--- NOTE | 2018-09-07 11:16 | PDOC ---
PROGRESS NOTES History of Present Illness History of Present Illness Assessment/Plan Assessment/Plan SOA, transient hypoxic respiratory failure-at the ER low sats. - Moderate ongoing or recurrent patchy bilateral pulmonary infiltrates and nodules with slight improvement ESRD on HD TTHS Anemia of ESRD Recent massive gI bleed s./p IR coiling - hgb 9.5 weakness small to mod pericardial effusion. Trops normal Acute on chronic diastolic/systolic CHF ESRD study. Cardiac tamponade NOT SUSPECTED Concern for drug seeking behavior Cardiomyopathy: EF now at 35% from 55% PLAN: Will likely need [facility] CT chest r.p PE HD per renal Ok to resume all home emds FUll code W/O hypoxia cardiology consult Vitals Vitals Vital Signs Date Time Temp Pulse Resp B/P (MAP) Pulse Ox O2 Delivery O2 Flow Rate FiO2 09/07/18 11:00 98.6 102 16 131/83 (99) 93 Room Air 98.6 09/07/18 08:00 2.0 Physical Exam General: Alert, Oriented X3, Cooperative, No acute distress, mild distress Heart: Regular rate, Normal S1, Normal S2 Lungs: Clear, Crackles Abdomen: Normal bowel sounds, Soft, No tenderness Extremities: No clubbing, No cyanosis Skin: No breakdown Assessment and Plan Assessmemt and Plan Problems Medical Problems: (1) Dyspnea Status: Acute Comment Review of Relevant I have reviewed the following items allyson (where applicable) has been applied. Labs Laboratory Tests Test 09/05/18 14:39 09/05/18 16:11 09/05/18 20:15 09/05/18 23:00 White Blood Count 9.5 x10^3/uL (4.0-11.0) Red Blood Count 3.35 x10^6/uL (4.30-5.70) Hemoglobin 9.5 g/dL (13.0-17.5) Hematocrit 29.7 % (39.0-53.0) Mean Corpuscular Volume 89 fL (79-100) Mean Corpuscular Hemoglobin 28 pg (25-35) Mean Corpuscular Hemoglobin Concent 32 g/dL (31-37) Red Cell Distribution Width 16.1 % (11.5-14.5) Platelet Count 329 x10^3/uL (140-400) Neutrophils (%) (Auto) 64 % (31-73) Lymphocytes (%) (Auto) 11 % (24-48) Monocytes (%) (Auto) 16 % (0-9) Eosinophils (%) (Auto) 8 % (0-3) Basophils (%) (Auto) 1 % (0-3) Neutrophils # (Auto) 6.1 x10^3uL (1.8-7.7) Lymphocytes # (Auto) 1.0 x10^3/uL (1.0-4.8) Monocytes # (Auto) 1.5 x10^3/uL (0.0-1.1) Eosinophils # (Auto) 0.7 x10^3/uL (0.0-0.7) Basophils # (Auto) 0.1 x10^3/uL (0.0-0.2) Prothrombin Time 13.9 SEC (11.7-14.0) Prothromb Time International Ratio 1.1 (0.8-1.1) Sodium Level 139 mmol/L (136-145) Potassium Level 4.6 mmol/L (3.5-5.1) Chloride Level 103 mmol/L (98-107) Carbon Dioxide Level 31 mmol/L (21-32) Anion Gap 5 (6-14) Blood Urea Nitrogen 26 mg/dL (8-26) Creatinine 5.5 mg/dL (0.7-1.3) Estimated GFR (Cockcroft-Gault) 10.9 BUN/Creatinine Ratio 5 (6-20) Glucose Level 105 mg/dL (70-99) Lactic Acid Level 1.1 mmol/L (0.4-2.0) Calcium Level 8.7 mg/dL (8.5-10.1) Total Bilirubin 0.3 mg/dL (0.2-1.0) Aspartate Amino Transf (AST/SGOT) 28 U/L (15-37) Alanine Aminotransferase (ALT/SGPT) 7 U/L (16-63) Alkaline Phosphatase 150 U/L (46-116) Troponin I Quantitative 0.033 ng/mL (0.000-0.055) 0.024 ng/mL (0.000-0.055) 0.027 ng/mL (0.000-0.055) KM-Jqe-D-Type Natriuretic Peptide > 55243 pg/mL (0-124) Total Protein 6.9 g/dL (6.4-8.2) Albumin 1.6 g/dL (3.4-5.0) Albumin/Globulin Ratio 0.3 (1.0-1.7) Thyroid Stimulating Hormone (TSH) 11.342 uIU/mL (0.358-3.74) Ethyl Alcohol Level < 10 mg/dL (0-10) Urine Opiates Screen Neg (NEG) Urine Methadone Screen Neg (NEG) Urine Barbiturates Neg (NEG) Urine Phencyclidine Screen Neg (NEG) Urine Amphetamine/Methamphetamine Neg (NEG) Urine Benzodiazepines Screen Neg (NEG) Urine Cocaine Screen Neg (NEG) Urine Cannabinoids Screen Neg (NEG) Urine Ethyl Alcohol Neg (NEG) Test 09/06/18 07:54 Troponin I Quantitative 0.025 ng/mL (0.000-0.055) Triglycerides Level 121 mg/dL (0-150) Cholesterol Level 99 mg/dL (0-200) LDL Cholesterol, Calculated 46 mg/dL (0-100) VLDL Cholesterol, Calculated 24 mg/dL (0-40) Non-HDL Cholesterol Calculated 70 mg/dL (0-129) HDL Cholesterol 29 mg/dL (40-60) Cholesterol/HDL Ratio 3.4 Hepatitis B Surface Antigen Nonreactive (Nonreactive) Microbiology 09/05/18 Blood Culture - Preliminary, Resulted NO GROWTH AFTER 1 DAY Medications Current Medications Iohexol (Omnipaque 350 Mg/ml) 90 ml 1X ONCE IV Last administered on 09/05/18at 17:21; Start 09/05/18 at 17:15; Stop 09/05/18 at 17:16; Status DC Info (CONTRAST GIVEN -- Rx MONITORING) 1 each PRN DAILY PRN MC SEE COMMENTS; Start 09/05/18 at 17:15; Stop 09/07/18 at 17:14 Polysaccharide Iron Complex (Niferex 150) 150 mg BID66 PO Last administered on 09/07/18at 05:46; Start 09/05/18 at 21:00 Darbepoetin Napoleon (Aranesp) 60 mcg WEEKLYHS SQ ; Start 09/10/18 at 21:00; Status Cancel Pantoprazole Sodium (Protonix) 40 mg BIDAC PO Last administered on 09/05/18at 20 :57; Start 09/05/18 at 21:00; Stop 09/06/18 at 10:25; Status DC Vitamin B Complex/ Vitamin C (Massiel-Darrel) 1 tab DAILY PO Last administered on at 09:27; Start 09/06/18 at 09:00 Calcium Acetate (Phoslo) 667 mg TIDWMEALS PO Last administered on 09/07/18at 09: 27; Start 09/06/18 at 08:00 Piperacillin Sod/ Tazobactam Sod (Zosyn Per Pharmacy) 1 each PRN DAILY PRN MC SEE COMMENTS; Start 09/05/18 at 17:45 Piperacillin Sod/ Tazobactam Sod 2.25 gm/Sodium Chloride 50 ml @ 100 mls/hr 1X ONCE IV Last administered on 09/05/18at 18:17; Start 09/05/18 at 17:45; Stop 09/05/18 at 18:14; Status DC Fentanyl Citrate (Fentanyl 2ml Vial) 50 mcg 1X ONCE IV Last administered on at 18:13; Start 09/05/18 at 18:00; Stop 09/05/18 at 18:01; Status DC Piperacillin Sod/ Tazobactam Sod 2.25 gm/Sodium Chloride 50 ml @ 100 mls/hr Q8HRS IV Last administered on 09/07/18at 05:46; Start 09/06/18 at 00:00 Tramadol HCl (Ultram) 50 mg PRN Q6HRS PRN PO MODERATE PAIN Last administered on 09/07/18at 09:28; Start 09/06/18 at 01:30 Acetaminophen (Tylenol) 650 mg PRN Q6HRS PRN PO MILD PAIN; Start 09/06/18 at 01 :30 Sodium Chloride 1,000 ml @ 1,000 mls/hr Q1H PRN IV hypotension; Start 09/06/18 at 08:09; Stop 09/06/18 at 14:08; Status DC Albumin Human 200 ml @ 200 mls/hr 1X PRN PRN IV Hypotension; Start 09/06/18 at 08:15; Stop 09/06/18 at 14:14; Status DC Acetaminophen (Tylenol) 500 mg 1X PRN PRN PO MILD PAIN / TEMP; Start 09/06/18 at 08:15; Stop 09/07/18 at 08:14; Status DC Diphenhydramine HCl (Benadryl) 25 mg 1X PRN PRN IV ITCHING; Start 09/06/18 at 08:15; Stop 09/07/18 at 08:14; Status DC Diphenhydramine HCl (Benadryl) 25 mg 1X PRN PRN IV ITCHING; Start 09/06/18 at 08:15; Stop 09/07/18 at 08:14; Status DC Sodium Chloride 1,000 ml @ 400 mls/hr Q2H30M PRN IV PATENCY; Start 09/06/18 at 08:09; Stop 09/06/18 at 20:08; Status DC Info (PHARMACY MONITORING -- do not chart) 1 each PRN DAILY PRN MC SEE COMMENTS ; Start 09/06/18 at 08:15 Metoprolol Succinate (Toprol Xl) 25 mg DAILY PO Last administered on 09/06/18at 14:00; Start 09/06/18 at 11:00; Stop 09/07/18 at 09:00; Status DC Pantoprazole Sodium (Protonix) 40 mg DAILYAC PO Last administered on 09/07/18at 09:30; Start 09/06/18 at 10:15 Fentanyl Citrate (Fentanyl 2ml Vial) 50 mcg 1X ONCE IV Last administered on at 11:54; Start 09/06/18 at 11:30; Stop 09/06/18 at 11:31; Status DC Darbepoetin Napoleon (Aranesp) 60 mcg WEEKLYHS SQ Last administered on 09/06/18at 20 :45; Start 09/06/18 at 21:00 Lactobacillus Rhamnosus (Culturelle) 1 cap BID PO Last administered on at 09:28; Start 09/06/18 at 21:00 Metoprolol Succinate (Toprol Xl) 50 mg DAILY PO Last administered on 09/07/18at 09:29; Start 09/07/18 at 09:00 Active Scripts Active [Pantoprazole] 40 MG Tablet.dr 40 Mg PO BIDAC 30 Days [Darbepoetin Napoleon In Polysorbat] 60 MCG/0.3 ML Disp.syrin 60 Mcg SQ WEEKLYHS 7 Days Poly-Iron (Iron Polysaccharides Complex) 150 Mg Capsule 150 Mg PO BID66 30 Days Vitals/I & O Vital Sign - Last 24 Hours 09/06/18 09/06/18 09/06/18 09/06/18 11:54 12:24 14:00 15:00 Temp 97.8 97.8 Pulse 100 106 Resp 16 14 18 B/P (MAP) 143/78 155/81 (105) Pulse Ox 97 O2 Delivery Room Air 09/06/18 09/06/18 09/06/18 09/07/18 19:00 20:00 23:00 03:00 Temp 99.5 98.5 98.1 99.5 98.5 98.1 Pulse 121 116 111 Resp 20 18 18 B/P (MAP) 130/79 (96) 118/71 (87) 151/84 (106) Pulse Ox 90 90 91 O2 Delivery Room Air Nasal Cannula Room Air Room Air O2 Flow Rate 2.0 09/07/18 09/07/18 09/07/18 09/07/18 07:00 08:00 09:28 09:29 Temp 99.2 99.2 Pulse 113 113 Resp 16 16 B/P (MAP) 124/74 (91) 124/74 Pulse Ox 89 O2 Delivery Room Air Nasal Cannula Room Air O2 Flow Rate 2.0 09/07/18 11:00 Temp 98.6 98.6 Pulse 102 Resp 16 B/P (MAP) 131/83 (99) Pulse Ox 93 O2 Delivery Room Air Intake and Output 09/06/18 09/06/18 09/07/18 15:00 23:00 07:00 Intake Total 240 ml 610 ml 390 ml Output Total 350 ml 550 ml Balance 240 ml 260 ml -160 ml ORQUIDEA GAMINO MD Sep 07, 2018 11:16
--- NOTE | 2018-09-07 12:25 | PDOC ---
Renal-Progress Notes Subjective Notes Notes NONE History of Present Illness Hx of present illness STABLE Vitals Vitals Vital Signs Date Time Temp Pulse Resp B/P (MAP) Pulse Ox O2 Delivery O2 Flow Rate FiO2 09/07/18 11:00 98.6 102 16 131/83 (99) 93 Room Air 98.6 09/07/18 08:00 2.0 Weight Weight [ ] I.O. Intake and Output Intake and Output 09/07/18 07:00 Intake Total 1240 ml Output Total 900 ml Balance 340 ml Intake Oral 1190 ml IV Total 50 ml Output Urine Total 900 ml Micro Micro Microbiology 09/05/18 Blood Culture - Preliminary, Resulted NO GROWTH AFTER 1 DAY Review of Systems Constitutional: yes: alert, oriented Ears/Nose/Throat: Yes: no symptom reported Eyes: Yes: no symptom reported Pulmonary: Yes dyspnea Cardiovascular: Yes no symptom reported Gastrointestional: Yes: no symptom reported Genitourinary: Yes: no symptom reported Musculoskeletal: Yes: no symptom reported Skin: Yes no symptom reported Psychiatric/Neurological: Yes: no symptom reported Endocrine: Yes: no symptom reported Physical Exam General Appearance: no apparent distress Skin: warm Respiratory: bilateral CTA Heart: S1S2, RRR Abdomen: soft, bowel sounds present Genitourinary: bladder flat Extremities: pulses present Neurology: alert, oriented Assessment Assessment IMP DIASTOLIC AND SYSTOLIC ACUTE ON CHRONIC CHF CARDIOMYOPATHY ACUTE HYPOXIC RESP FAILURE ANEMIA ? DRUG SEEKING ESRD DUE TO CHRONIC HYDRONEPHROSIS HTN HX NON COMPLIANCE HX PLAN ARANESP HD [facility] CARDI[facility]Y MARIIA COSTA MD Sep 07, 2018 12:25
--- NOTE | 2018-09-07 13:46 | PDOC2 ---
CONSULT Date of Consult Date of Consult DATE: 09/07/18 TIME: 13:32 Reason for Consult Reason for Consult: Pericardial effusion Referring Physician Referring Physician: Td Identification/Chief Complaint Chief Complaint SOB Source Source: Chart review, Patient History of Present Illness Reason for Visit: Patient is a 53 year old male with ESRF, secondary to chronic hydronpehrosis, recently started on dialysis who presents with increasing SOB. Recent admission with GIB of unknown etiology, requiring GDA embolization. Found during this admission to have a moderate size pericardial effusion with fibrinous component and cardiomyopathy-EF is now 30% from 50% 2 months ago. He is normotensive but mildly tachycardic. I was consulted for possible pericardial window. Past Medical History Cardiovascular: No pertinent hx, HTN Pulmonary: Bronchitis, COPD, Other CENTRAL NERVOUS SYSTEM: Other GI: No pertinent hx, GI bleed Heme/Onc: Anemia NOS Hepatobiliary: No pertinent hx Psych: No pertinent hx Rheumatologic: No pertinent hx Infectious disease: Other Renal/: Chronic renal insuff, Chronic renal failure, UTI, Other Endocrine: No pertinent hx, Hyperparathyroidism Past Surgical History Past Surgical History: Other Family History Family History: Coronary Artery Disease (father) Social History No ALCOHOL: none Drugs: None Lives: with Family Current Problem List Problem List Problems Medical Problems: (1) Dyspnea Status: Acute Current Medications Current Medications Current Medications Iohexol (Omnipaque 350 Mg/ml) 90 ml 1X ONCE IV Last administered on 09/05/18at 17:21; Start 09/05/18 at 17:15; Stop 09/05/18 at 17:16; Status DC Info (CONTRAST GIVEN -- Rx MONITORING) 1 each PRN DAILY PRN MC SEE COMMENTS; Start 09/05/18 at 17:15; Stop 09/07/18 at 17:14 Polysaccharide Iron Complex (Niferex 150) 150 mg BID66 PO Last administered on 09/07/18at 05:46; Start 09/05/18 at 21:00 Darbepoetin Napoleon (Aranesp) 60 mcg WEEKLYHS SQ ; Start 09/10/18 at 21:00; Status Cancel Pantoprazole Sodium (Protonix) 40 mg BIDAC PO Last administered on 09/05/18at 20 :57; Start 09/05/18 at 21:00; Stop 09/06/18 at 10:25; Status DC Vitamin B Complex/ Vitamin C (Massiel-Darrel) 1 tab DAILY PO Last administered on at 09:27; Start 09/06/18 at 09:00 Calcium Acetate (Phoslo) 667 mg TIDWMEALS PO Last administered on 09/07/18at 12: 43; Start 09/06/18 at 08:00 Piperacillin Sod/ Tazobactam Sod (Zosyn Per Pharmacy) 1 each PRN DAILY PRN MC SEE COMMENTS; Start 09/05/18 at 17:45 Piperacillin Sod/ Tazobactam Sod 2.25 gm/Sodium Chloride 50 ml @ 100 mls/hr 1X ONCE IV Last administered on 09/05/18at 18:17; Start 09/05/18 at 17:45; Stop 09/05/18 at 18:14; Status DC Fentanyl Citrate (Fentanyl 2ml Vial) 50 mcg 1X ONCE IV Last administered on at 18:13; Start 09/05/18 at 18:00; Stop 09/05/18 at 18:01; Status DC Piperacillin Sod/ Tazobactam Sod 2.25 gm/Sodium Chloride 50 ml @ 100 mls/hr Q8HRS IV Last administered on 09/07/18at 05:46; Start 09/06/18 at 00:00 Tramadol HCl (Ultram) 50 mg PRN Q6HRS PRN PO MODERATE PAIN Last administered on 09/07/18at 09:28; Start 09/06/18 at 01:30 Acetaminophen (Tylenol) 650 mg PRN Q6HRS PRN PO MILD PAIN; Start 09/06/18 at 01 :30 Sodium Chloride 1,000 ml @ 1,000 mls/hr Q1H PRN IV hypotension; Start 09/06/18 at 08:09; Stop 09/06/18 at 14:08; Status DC Albumin Human 200 ml @ 200 mls/hr 1X PRN PRN IV Hypotension; Start 09/06/18 at 08:15; Stop 09/06/18 at 14:14; Status DC Acetaminophen (Tylenol) 500 mg 1X PRN PRN PO MILD PAIN / TEMP; Start 09/06/18 at 08:15; Stop 09/07/18 at 08:14; Status DC Diphenhydramine HCl (Benadryl) 25 mg 1X PRN PRN IV ITCHING; Start 09/06/18 at 08:15; Stop 09/07/18 at 08:14; Status DC Diphenhydramine HCl (Benadryl) 25 mg 1X PRN PRN IV ITCHING; Start 09/06/18 at 08:15; Stop 09/07/18 at 08:14; Status DC Sodium Chloride 1,000 ml @ 400 mls/hr Q2H30M PRN IV PATENCY; Start 09/06/18 at 08:09; Stop 09/06/18 at 20:08; Status DC Info (PHARMACY MONITORING -- do not chart) 1 each PRN DAILY PRN MC SEE COMMENTS ; Start 09/06/18 at 08:15 Metoprolol Succinate (Toprol Xl) 25 mg DAILY PO Last administered on 09/06/18at 14:00; Start 09/06/18 at 11:00; Stop 09/07/18 at 09:00; Status DC Pantoprazole Sodium (Protonix) 40 mg DAILYAC PO Last administered on 09/07/18at 09:30; Start 09/06/18 at 10:15 Fentanyl Citrate (Fentanyl 2ml Vial) 50 mcg 1X ONCE IV Last administered on at 11:54; Start 09/06/18 at 11:30; Stop 09/06/18 at 11:31; Status DC Darbepoetin Napoleon (Aranesp) 60 mcg WEEKLYHS SQ Last administered on 09/06/18at 20 :45; Start 09/06/18 at 21:00 Lactobacillus Rhamnosus (Culturelle) 1 cap BID PO Last administered on at 09:28; Start 09/06/18 at 21:00 Metoprolol Succinate (Toprol Xl) 50 mg DAILY PO Last administered on 09/07/18at 09:29; Start 09/07/18 at 09:00 Ondansetron HCl (Zofran) 4 mg PRN Q6HRS PRN IV NAUSEA/VOMITING; Start 09/10/18 at 07:00; Stop 09/10/18 at 18:00 Fentanyl Citrate (Fentanyl 2ml Vial) 25 mcg PRN Q5MIN PRN IV MILD PAIN; Start 09/10/18 at 07:00; Stop 09/10/18 at 18:00 Fentanyl Citrate (Fentanyl 2ml Vial) 50 mcg PRN Q5MIN PRN IV MODERATE TO SEVERE PAIN; Start 09/10/18 at 07:00; Stop 09/10/18 at 18:00 Morphine Sulfate (Morphine Sulfate) 1 mg PRN Q10MIN PRN IV SEVERE PAIN; Start 09/10/18 at 07:00; Stop 09/10/18 at 18:00 Ringer's Solution 1,000 ml @ 30 mls/hr Q24H IV ; Start 09/10/18 at 07:00; Stop 09/10/18 at 18:59 Lidocaine HCl (Xylocaine-Mpf 1% 2ml Vial) 2 ml PRN 1X PRN ID PRIOR TO IV START ; Start 09/10/18 at 07:00; Stop 09/10/18 at 18:00 Hydromorphone HCl (Dilaudid) 0.5 mg PRN Q10MIN PRN IV SEV PAIN, Second choice; Start 09/10/18 at 07:00; Stop 09/10/18 at 18:00 Prochlorperazine Edisylate (Compazine) 5 mg PACU PRN PRN IV NAUSEA, MRX1; Start 09/10/18 at 07:00; Stop 09/11/18 at 06:59; Status UNV Active Scripts Active [Pantoprazole] 40 MG Tablet.dr 40 Mg PO BIDAC 30 Days [Darbepoetin Napoleon In Polysorbat] 60 MCG/0.3 ML Disp.syrin 60 Mcg SQ WEEKLYHS 7 Days Poly-Iron (Iron Polysaccharides Complex) 150 Mg Capsule 150 Mg PO BID66 30 Days Allergies Allergies: Coded Allergies: No Known Drug Allergies (Unverified , 08/14/18) ROS General: YES: Fatigue; No: Chills, Night Sweats, Malaise, Appetite PSYCHOLOGICAL ROS: No: Anxiety, Behavioral Disorder, Concentration difficultie , Decreased libido, Depression, Disorientation, Hallucinations, Hostility, Irritablity, Memory difficulties, Mood Swings, Obsessive thoughts, Physical abuse, Sexual abuse, Sleep disturbances, Suicidal ideation Eyes: No Blurry vision, No Decreased vision, No Double vision, No Dry eyes, No Excessive tearing, No Eye Pain, No Itchy Eyes, No Loss of vision, No Photophobia , No Scotomata, No Uses contacts, No Uses glasses HEENT: No: Heacaches, Visual Changes, Hearing change, Nasal congestion, Nasal discharge, Oral lesions, Sinus pain, Sore Throat, Epistaxis, Sneezing, Snoring, Tinnitus, Vertigo, Vocal changes ALLERGY AND IMMUNOLOGY: No: Hives, Insect Bite Sensitivity, Itchy/Watery Eyes, Nasal Congestion, Post Nasal Drip, Seasonal Allergies Hematological and Lymphatic: No: Bleeding Problems, Blood Clots, Blood Transfusions, Brusing, Night Sweats, Pallor, Swollen Lymph Nodes ENDOCRINE: No: Breast Changes, Galactorrhea, Hair Pattern Changes, Hot Flashes , Malaise/lethargy, Mood Swings, Palpitations, Polydipsia/polyuria, Skin Changes , Temperature Intolerance, Unexpected Weight Changes Respiratory: YES: Shortness of breath; No: Cough, Hemoptysis, Orthopnea, Pleuritic Pain, SOB with excertion, Sputum Changes, Stridor, Tachypnea, Wheezing Cardiovascular: yes Palpitations, yes Edema; No Chest Pain, No Orthopnea, No Paroxysmal Noc. Dyspnea, No Lt Headedness Gastrointestinal: No Nausea, No Vomiting, No Abdominal Pain, No Diarrhea, No Constipation, No Melena, No Hematochezia Genitourinary: No Dysuria, No Frequency, No Incontinence, No Hematuria, No Retention, No Discharge, No Urgency, No Pain, No Flank Pain Musculoskeletal: No Gait Disturbance, No Joint Pain, No Joint Stiffness, No Joint Swelling, No Muscle Pain, No Muscular Weakness, No Pain In:, No Swelling In: Neurological: No Behavorial Changes, No Bowel/Bladder ControlChng, No Confusion , No Dizziness, No Gait Disturbance, No Headaches, No Impaired Coord/balance, No Memory Loss, No Numbness/Tingling, No Seizures, No Speech Problems, No Tremors, No Visual Changes, No Weakness Skin: No Dry Skin, No Eczema, No Hair Changes, No Lumps, No Mole Changes, No Mottling, No Nail Changes, No Pruritus, No Rash, No Skin Lesion Changes, No Acne Physical Exam General: Alert, Oriented X3, No acute distress HEENT: Atraumatic, PERRLA Lungs: Other (reduced air entry) Heart: Regular rate, No murmurs (maffled), Other (JVD) Abdomen: Soft, No tenderness, No hepatosplenomegaly Skin: No significant lesion Neuro: Normal gait, Normal speech, Strength at 5/5 X4 ext, Normal tone, Sensation intact, Cranial nerves 3-12 NL, Reflexes 2+ Psych/Mental Status: Mental status NL MUSCULOSKELETAL: No deformity Vitals VITALS Vital Signs Date Time Temp Pulse Resp B/P (MAP) Pulse Ox O2 Delivery O2 Flow Rate FiO2 09/07/18 12:43 93 Nasal Cannula 2.0 09/07/18 11:00 98.6 102 16 131/83 (99) 98.6 Labs Labs Laboratory Tests Test 09/05/18 14:39 09/05/18 16:11 09/05/18 20:15 09/05/18 23:00 White Blood Count 9.5 x10^3/uL (4.0-11.0) Red Blood Count 3.35 x10^6/uL (4.30-5.70) Hemoglobin 9.5 g/dL (13.0-17.5) Hematocrit 29.7 % (39.0-53.0) Mean Corpuscular Volume 89 fL (79-100) Mean Corpuscular Hemoglobin 28 pg (25-35) Mean Corpuscular Hemoglobin Concent 32 g/dL (31-37) Red Cell Distribution Width 16.1 % (11.5-14.5) Platelet Count 329 x10^3/uL (140-400) Neutrophils (%) (Auto) 64 % (31-73) Lymphocytes (%) (Auto) 11 % (24-48) Monocytes (%) (Auto) 16 % (0-9) Eosinophils (%) (Auto) 8 % (0-3) Basophils (%) (Auto) 1 % (0-3) Neutrophils # (Auto) 6.1 x10^3uL (1.8-7.7) Lymphocytes # (Auto) 1.0 x10^3/uL (1.0-4.8) Monocytes # (Auto) 1.5 x10^3/uL (0.0-1.1) Eosinophils # (Auto) 0.7 x10^3/uL (0.0-0.7) Basophils # (Auto) 0.1 x10^3/uL (0.0-0.2) Prothrombin Time 13.9 SEC (11.7-14.0) Prothromb Time International Ratio 1.1 (0.8-1.1) Sodium Level 139 mmol/L (136-145) Potassium Level 4.6 mmol/L (3.5-5.1) Chloride Level 103 mmol/L (98-107) Carbon Dioxide Level 31 mmol/L (21-32) Anion Gap 5 (6-14) Blood Urea Nitrogen 26 mg/dL (8-26) Creatinine 5.5 mg/dL (0.7-1.3) Estimated GFR (Cockcroft-Gault) 10.9 BUN/Creatinine Ratio 5 (6-20) Glucose Level 105 mg/dL (70-99) Lactic Acid Level 1.1 mmol/L (0.4-2.0) Calcium Level 8.7 mg/dL (8.5-10.1) Total Bilirubin 0.3 mg/dL (0.2-1.0) Aspartate Amino Transf (AST/SGOT) 28 U/L (15-37) Alanine Aminotransferase (ALT/SGPT) 7 U/L (16-63) Alkaline Phosphatase 150 U/L (46-116) Troponin I Quantitative 0.033 ng/mL (0.000-0.055) 0.024 ng/mL (0.000-0.055) 0.027 ng/mL (0.000-0.055) CM-Ass-K-Type Natriuretic Peptide > 25944 pg/mL (0-124) Total Protein 6.9 g/dL (6.4-8.2) Albumin 1.6 g/dL (3.4-5.0) Albumin/Globulin Ratio 0.3 (1.0-1.7) Thyroid Stimulating Hormone (TSH) 11.342 uIU/mL (0.358-3.74) Ethyl Alcohol Level < 10 mg/dL (0-10) Urine Opiates Screen Neg (NEG) Urine Methadone Screen Neg (NEG) Urine Barbiturates Neg (NEG) Urine Phencyclidine Screen Neg (NEG) Urine Amphetamine/Methamphetamine Neg (NEG) Urine Benzodiazepines Screen Neg (NEG) Urine Cocaine Screen Neg (NEG) Urine Cannabinoids Screen Neg (NEG) Urine Ethyl Alcohol Neg (NEG) Test 09/06/18 07:54 Troponin I Quantitative 0.025 ng/mL (0.000-0.055) Triglycerides Level 121 mg/dL (0-150) Cholesterol Level 99 mg/dL (0-200) LDL Cholesterol, Calculated 46 mg/dL (0-100) VLDL Cholesterol, Calculated 24 mg/dL (0-40) Non-HDL Cholesterol Calculated 70 mg/dL (0-129) HDL Cholesterol 29 mg/dL (40-60) Cholesterol/HDL Ratio 3.4 Hepatitis B Surface Antigen Nonreactive (Nonreactive) Images Images LEFT VENTRICLE The left ventricle is normal size. There is borderline to mild concentric left ventricular hypertrophy. The ejection fraction is moderately impaired. The Ejection Fraction is 30-35%. Compared to echo dated 06/2018 - this is a significant change from prior EF of 55% There is global hypokinesis of the left ventricle. RIGHT VENTRICLE The right ventricle is normal size. There is normal right ventricular wall thickness. The right ventricular systolic function is normal. ATRIA The left atrium size is normal. The right atrium size is normal. The interatrial septum is intact with no evidence for an atrial septal defect or patent foramen ovale as noted on 2-D or Doppler imaging. GREAT VESSELS The aortic root is normal in size. PERICARDIAL EFFUSION There is pleural effusion. There is a small to moderate sized circumferential pericardial effusion with no obvious echocardiographic evidence of tamponade. The pericardial effusion appears to be subacute in nature with fibrinous components. The effusion is mostly posteriorly layered. Critical Notification Critical Value: No <Conclusion> The ejection fraction is moderately impaired. The Ejection Fraction is 30-35%. Compared to echo dated 06/2018 - this is a significant change from prior EF of 55% There is global hypokinesis of the left ventricle. There is a small to moderate sized circumferential pericardial effusion with no obvious echocardiographic evidence of tamponade. The pericardial effusion appears to be subacute in nature with fibrinous components. The effusion is mostly posteriorly layered. Assessment/Plan Assessment/Plan 53 year old male with ESRF, secondary to chronic hydronpehrosis, recently started on dialysis who presents with increasing SOB. Recent admission with GIB of unknown etiology, requiring GDA embolization. Found during this admission to have a moderate size pericardial effusion with fibrinous component and cardiomyopathy-EF is now 30% from 50% 2 months ago. He is normotensive but mildly tachycardic. Plan for pericardial window on Monday at 1pm Needs dialysis prior to procedure. Would be judicious with volume removal before general anesthesia, given that cardiac preload is impaired with pericardial effusion and BP is dependent on afterload / vascular tone, which can be adversely effected upon induction of anesthesia. BALDO CORTEZ MD Sep 07, 2018 13:46
[2018-09-07 14:33] LABS: BASO # 0.1 x10^3/uL (0.0-0.2); BASO % 1 % (0-3); EOS # 0.4 x10^3/uL (0.0-0.7); EOS % 3 % (0-3); HEMATOCRIT 26.5 % (39.0-53.0); HEMOGLOBIN 8.4 g/dL (13.0-17.5); LYMPH # 1.1 x10^3/uL (1.0-4.8); LYMPH % 10 % (24-48); MEAN CORPUSCULAR HEMOGLOBIN 28 pg (25-35); MEAN CORPUSCULAR HGB CONC 32 g/dL (31-37); MEAN CORPUSCULAR VOLUME 88 fL (79-100); MONO # 1.7 x10^3/uL (0.0-1.1); MONO % 16 % (0-9); NEUT # 7.6 x10^3uL (1.8-7.7); NEUT % 70 % (31-73); PLATELET COUNT 287 x10^3/uL (140-400); RED BLOOD COUNT 3.03 x10^6/uL (4.30-5.70); RED CELL DISTRIBUTION WIDTH 16.3 % (11.5-14.5); WHITE BLOOD COUNT 10.9 x10^3/uL (4.0-11.0)
[2018-09-07 14:40] LABS: ALBUMIN 1.5 g/dL (3.4-5.0); CALCIUM 8.5 mg/dL (8.5-10.1); CREATININE 5.4 mg/dL (0.7-1.3); GFR 11.1; PHOSPHORUS 5.1 mg/dL (2.6-4.7); POTASSIUM 5.2 mmol/L (3.5-5.1)
--- NOTE | 2018-09-07 14:49 | PDOC ---
CARDIOLOGY PROGRESS NOTE SUBJECTIVE: No new events overnight. No chest pain Mild dyspnea OBJECTIVE: Vital SIgns: Vital Signs Date Time Temp Pulse Resp B/P (MAP) Pulse Ox O2 Delivery O2 Flow Rate FiO2 09/07/18 12:43 93 Nasal Cannula 2.0 09/07/18 11:00 98.6 102 16 131/83 (99) 98.6 I & O Intake and Output 09/07/18 07:00 Intake Total 1240 ml Output Total 900 ml Balance 340 ml Intake Oral 1190 ml IV Total 50 ml Output Urine Total 900 ml Objective: Tachycardia Mild decrease in breath sounds at the bases. +kussmauls No edema. CURRENT MEDICATIONS: Current Medications Medications (Trade) Dose Ordered Sig/Kevin Start Time Stop Time Status Last Admin Dose Admin Acetaminophen (Tylenol) 500 mg 1X PRN PRN 09/06/18 08:15 09/07/18 08:14 DC Albumin Human 200 ml @ 200 mls/hr 1X PRN PRN 09/06/18 08:15 09/06/18 14:14 DC Calcium Acetate (Phoslo) 667 mg TIDWMEALS 09/06/18 08:00 09/07/18 12:43 667 MG Darbepoetin Napoleon (Aranesp) 60 mcg WEEKLYHS 09/06/18 21:00 09/06/18 20:45 60 MCG Diphenhydramine HCl (Benadryl) 25 mg 1X PRN PRN 09/06/18 08:15 09/07/18 08:14 DC Fentanyl Citrate (Fentanyl 2ml Vial) 50 mcg PRN Q5MIN PRN 09/10/18 07:00 09/10/18 18:00 Hydromorphone HCl (Dilaudid) 0.5 mg PRN Q10MIN PRN 09/10/18 07:00 09/10/18 18:00 Info (CONTRAST GIVEN -- Rx MONITORING) 1 each PRN DAILY PRN 09/05/18 17:15 09/07/18 17:14 Info (PHARMACY MONITORING -- do not chart) 1 each PRN DAILY PRN 09/06/18 08:15 Iohexol (Omnipaque 350 Mg/ml) 90 ml 1X ONCE 09/05/18 17:15 09/05/18 17:16 DC 09/05/18 17:21 90 ML Lactobacillus Rhamnosus (Culturelle) 1 cap BID 09/06/18 21:00 09/07/18 09:28 1 CAP Lidocaine HCl (Xylocaine-Mpf 1% 2ml Vial) 2 ml PRN 1X PRN 09/10/18 07:00 09/10/18 18:00 Metoprolol Succinate (Toprol Xl) 50 mg DAILY 09/07/18 09:00 09/07/18 09:29 50 MG Morphine Sulfate (Morphine Sulfate) 1 mg PRN Q10MIN PRN 09/10/18 07:00 09/10/18 18:00 Ondansetron HCl (Zofran) 4 mg PRN Q6HRS PRN 09/10/18 07:00 09/10/18 18:00 Pantoprazole Sodium (Protonix) 40 mg DAILYAC 09/06/18 10:15 09/07/18 09:30 40 MG Piperacillin Sod/ Tazobactam Sod (Zosyn Per Pharmacy) 1 each PRN DAILY PRN 09/05/18 17:45 Piperacillin Sod/ Tazobactam Sod 2.25 gm/Sodium Chloride 50 ml @ 100 mls/hr Q8HRS 09/06/18 00:00 09/07/18 13:43 100 MLS/HR Polysaccharide Iron Complex (Niferex 150) 150 mg BID66 09/05/18 21:00 09/07/18 05:46 150 MG Prochlorperazine Edisylate (Compazine) 5 mg PACU PRN PRN 09/10/18 07:00 09/10/18 18:00 Ringer's Solution 1,000 ml @ 30 mls/hr Q24H 09/10/18 07:00 09/10/18 18:59 Sodium Chloride 1,000 ml @ 400 mls/hr Q2H30M PRN 09/06/18 08:09 09/06/18 20:08 DC Tramadol HCl (Ultram) 50 mg PRN Q6HRS PRN 09/06/18 01:30 09/07/18 09:28 50 MG Vitamin B Complex/ Vitamin C (Massiel-Darrel) 1 tab DAILY 09/06/18 09:00 09/07/18 09:27 1 TAB DIAGNOSTIC TESTING: Hgb 8.4 ASSESSMENT: 1. Pericardial effusion without clinical tamponade 2 Failure to thrive 3. Anemia 4. ESRD PLAN: 1. Plan for pericardial window on monday 2. Low dose toprol ok but would not aggressive suppress tachycardia 3. outpt MPI. Thanks Will follow along. MARIANN TIRADO MD Sep 07, 2018 14:49
[2018-09-07 15:00] VITALS: BP 132/80
--- NOTE | 2018-09-07 17:21 | NUR ---
Per Dr Go patient is to do dialysis on 09/10 in the morning before pericardial window procedure that is scheduled at 1300 hrs.
[2018-09-07 19:00] VITALS: BP 124/83
[2018-09-07 23:00] VITALS: BP 124/79
[2018-09-08 03:00] VITALS: BP 119/77
[2018-09-08 05:27] LABS: HEMATOCRIT 28.5 % (39.0-53.0); RED BLOOD COUNT 3.24 x10^6/uL (4.30-5.70); RED CELL DISTRIBUTION WIDTH 16.2 % (11.5-14.5); WHITE BLOOD COUNT 10.4 x10^3/uL (4.0-11.0)
[2018-09-08 05:56] LABS: CALCIUM 8.5 mg/dL (8.5-10.1); CREATININE 6.3 mg/dL (0.7-1.3); GFR 9.3; POTASSIUM 4.6 mmol/L (3.5-5.1)
[2018-09-08] MEDS: PIPERACILLIN/TAZOBACTAM 2.25 GM in IV NORMAL SALINE 50ML 50 ML IV SCH ×3 (06:33→20:55)
[2018-09-08] MEDS ORDERED: IV NORMAL SALINE 1000ML BAG 1,000 ML IV PRN ×2 (07:00)
[2018-09-08] MEDS: CALCIUM ACETATE 667 MG CAPSULE PO SCH ×3 (08:00→16:59)
[2018-09-08] MEDS ORDERED: DIALYSIS PATIENT. MC PRN ×2 (08:30)
--- NOTE | 2018-09-08 11:43 | PDOC ---
Renal-Progress Notes Subjective Notes Notes NONE History of Present Illness Hx of present illness STABLE Vitals Vitals Vital Signs Date Time Temp Pulse Resp B/P (MAP) Pulse Ox O2 Delivery O2 Flow Rate FiO2 09/08/18 08:00 Room Air 09/08/18 03:00 98.7 100 20 119/77 (91) 92 98.7 09/07/18 20:00 2.0 Weight Weight [ ] I.O. Intake and Output Intake and Output 09/08/18 07:00 Intake Total 950 ml Balance 950 ml Intake Oral 900 ml IV Total 50 ml # Voids 3 Labs Labs Laboratory Tests Test 09/07/18 14:05 09/08/18 05:00 White Blood Count 10.9 x10^3/uL (4.0-11.0) 10.4 x10^3/uL (4.0-11.0) Red Blood Count 3.03 x10^6/uL (4.30-5.70) 3.24 x10^6/uL (4.30-5.70) Hemoglobin 8.4 g/dL (13.0-17.5) 9.0 g/dL (13.0-17.5) Hematocrit 26.5 % (39.0-53.0) 28.5 % (39.0-53.0) Mean Corpuscular Volume 88 fL (79-100) 88 fL (79-100) Mean Corpuscular Hemoglobin 28 pg (25-35) 28 pg (25-35) Mean Corpuscular Hemoglobin Concent 32 g/dL (31-37) 32 g/dL (31-37) Red Cell Distribution Width 16.3 % (11.5-14.5) 16.2 % (11.5-14.5) Platelet Count 287 x10^3/uL (140-400) 347 x10^3/uL (140-400) Neutrophils (%) (Auto) 70 % (31-73) Lymphocytes (%) (Auto) 10 % (24-48) Monocytes (%) (Auto) 16 % (0-9) Eosinophils (%) (Auto) 3 % (0-3) Basophils (%) (Auto) 1 % (0-3) Neutrophils # (Auto) 7.6 x10^3uL (1.8-7.7) Lymphocytes # (Auto) 1.1 x10^3/uL (1.0-4.8) Monocytes # (Auto) 1.7 x10^3/uL (0.0-1.1) Eosinophils # (Auto) 0.4 x10^3/uL (0.0-0.7) Basophils # (Auto) 0.1 x10^3/uL (0.0-0.2) Sodium Level 138 mmol/L (136-145) 139 mmol/L (136-145) Potassium Level 5.2 mmol/L (3.5-5.1) 4.6 mmol/L (3.5-5.1) Chloride Level 102 mmol/L (98-107) 101 mmol/L (98-107) Carbon Dioxide Level 30 mmol/L (21-32) 29 mmol/L (21-32) Anion Gap 6 (6-14) 9 (6-14) Blood Urea Nitrogen 22 mg/dL (8-26) 27 mg/dL (8-26) Creatinine 5.4 mg/dL (0.7-1.3) 6.3 mg/dL (0.7-1.3) Estimated GFR (Cockcroft-Gault) 11.1 9.3 Glucose Level 100 mg/dL (70-99) 92 mg/dL (70-99) Calcium Level 8.5 mg/dL (8.5-10.1) 8.5 mg/dL (8.5-10.1) Phosphorus Level 5.1 mg/dL (2.6-4.7) Magnesium Level 1.9 mg/dL (1.8-2.4) Albumin 1.5 g/dL (3.4-5.0) Micro Micro Microbiology 09/05/18 Blood Culture - Preliminary, Resulted NO GROWTH AFTER 2 DAYS Review of Systems Constitutional: yes: alert, oriented Ears/Nose/Throat: Yes: no symptom reported Eyes: Yes: no symptom reported Pulmonary: Yes dyspnea Cardiovascular: Yes no symptom reported Gastrointestional: Yes: no symptom reported Genitourinary: Yes: no symptom reported Musculoskeletal: Yes: no symptom reported Skin: Yes no symptom reported Psychiatric/Neurological: Yes: no symptom reported Endocrine: Yes: no symptom reported Physical Exam General Appearance: no apparent distress Skin: warm Respiratory: bilateral CTA Heart: S1S2, RRR Abdomen: soft, bowel sounds present Genitourinary: bladder flat Extremities: pulses present Neurology: alert, oriented Assessment Assessment IMP DIASTOLIC AND SYSTOLIC ACUTE ON CHRONIC CHF CARDIOMYOPATHY ACUTE HYPOXIC RESP FAILURE ANEMIA ? DRUG SEEKING ESRD DUE TO CHRONIC HYDRONEPHROSIS HTN HX NON COMPLIANCE HX PERICARDIAL EFFUSION PLAN ARANESP HD TODAY UF TO DW HD AGAIN MONDAY AM THEN PERICARDIAL WINDOW IN THE AFTERNOON MARIIA VIDAL MD Sep 08, 2018 11:43
[2018-09-08] MEDS: IRON POLYSACCHARIDE COMPLEX 150 MG CAPSULE PO SCH ×2 (13:31→16:59)
--- NOTE | 2018-09-08 14:40 | PDOC ---
PROGRESS NOTES Chief Complaint Chief Complaint acute hypoxic respiratory failure at admit, improved Moderate ongoing bilateral pulmonary infiltrates and nodules ESRD on HD TTHS Anemia of ESRD Recent massive gI bleed s./p IR coiling - hgb 9.5 weakness small to mod pericardial effusion. Trops normal Acute on chronic systolic CHF Concern for drug seeking behavior Cardiomyopathy: EF 35% History of Present Illness History of Present Illness PLAN: Will likely need [facility] CT chest r.p PE HD per renal Ok to resume all home emds FUll code W/O hypoxia cardiology consult Vitals Vitals Vital Signs Date Time Temp Pulse Resp B/P (MAP) Pulse Ox O2 Delivery O2 Flow Rate FiO2 09/08/18 08:00 Room Air 09/08/18 03:00 98.7 100 20 119/77 (91) 92 98.7 09/07/18 20:00 2.0 Physical Exam General: Alert, Oriented X3, No acute distress Heart: Regular rate, No murmurs (maffled), Other (JVD) Lungs: Clear, Crackles Abdomen: Soft, No tenderness, No hepatosplenomegaly Extremities: No clubbing, No cyanosis Skin: No significant lesion Labs LABS Laboratory Tests Test 09/08/18 05:00 White Blood Count 10.4 x10^3/uL (4.0-11.0) Red Blood Count 3.24 x10^6/uL (4.30-5.70) Hemoglobin 9.0 g/dL (13.0-17.5) Hematocrit 28.5 % (39.0-53.0) Mean Corpuscular Volume 88 fL (79-100) Mean Corpuscular Hemoglobin 28 pg (25-35) Mean Corpuscular Hemoglobin Concent 32 g/dL (31-37) Red Cell Distribution Width 16.2 % (11.5-14.5) Platelet Count 347 x10^3/uL (140-400) Sodium Level 139 mmol/L (136-145) Potassium Level 4.6 mmol/L (3.5-5.1) Chloride Level 101 mmol/L (98-107) Carbon Dioxide Level 29 mmol/L (21-32) Anion Gap 9 (6-14) Blood Urea Nitrogen 27 mg/dL (8-26) Creatinine 6.3 mg/dL (0.7-1.3) Estimated GFR (Cockcroft-Gault) 9.3 Glucose Level 92 mg/dL (70-99) Calcium Level 8.5 mg/dL (8.5-10.1) Review of Systems Review of Systems no nv..d Assessment and Plan Assessmemt and Plan Problems Medical Problems: (1) Dyspnea Status: Acute Comment Review of Relevant I have reviewed the following items allyson (where applicable) has been applied. Labs Laboratory Tests Test 09/07/18 14:05 09/08/18 05:00 White Blood Count 10.9 x10^3/uL (4.0-11.0) 10.4 x10^3/uL (4.0-11.0) Red Blood Count 3.03 x10^6/uL (4.30-5.70) 3.24 x10^6/uL (4.30-5.70) Hemoglobin 8.4 g/dL (13.0-17.5) 9.0 g/dL (13.0-17.5) Hematocrit 26.5 % (39.0-53.0) 28.5 % (39.0-53.0) Mean Corpuscular Volume 88 fL (79-100) 88 fL (79-100) Mean Corpuscular Hemoglobin 28 pg (25-35) 28 pg (25-35) Mean Corpuscular Hemoglobin Concent 32 g/dL (31-37) 32 g/dL (31-37) Red Cell Distribution Width 16.3 % (11.5-14.5) 16.2 % (11.5-14.5) Platelet Count 287 x10^3/uL (140-400) 347 x10^3/uL (140-400) Neutrophils (%) (Auto) 70 % (31-73) Lymphocytes (%) (Auto) 10 % (24-48) Monocytes (%) (Auto) 16 % (0-9) Eosinophils (%) (Auto) 3 % (0-3) Basophils (%) (Auto) 1 % (0-3) Neutrophils # (Auto) 7.6 x10^3uL (1.8-7.7) Lymphocytes # (Auto) 1.1 x10^3/uL (1.0-4.8) Monocytes # (Auto) 1.7 x10^3/uL (0.0-1.1) Eosinophils # (Auto) 0.4 x10^3/uL (0.0-0.7) Basophils # (Auto) 0.1 x10^3/uL (0.0-0.2) Sodium Level 138 mmol/L (136-145) 139 mmol/L (136-145) Potassium Level 5.2 mmol/L (3.5-5.1) 4.6 mmol/L (3.5-5.1) Chloride Level 102 mmol/L (98-107) 101 mmol/L (98-107) Carbon Dioxide Level 30 mmol/L (21-32) 29 mmol/L (21-32) Anion Gap 6 (6-14) 9 (6-14) Blood Urea Nitrogen 22 mg/dL (8-26) 27 mg/dL (8-26) Creatinine 5.4 mg/dL (0.7-1.3) 6.3 mg/dL (0.7-1.3) Estimated GFR (Cockcroft-Gault) 11.1 9.3 Glucose Level 100 mg/dL (70-99) 92 mg/dL (70-99) Calcium Level 8.5 mg/dL (8.5-10.1) 8.5 mg/dL (8.5-10.1) Phosphorus Level 5.1 mg/dL (2.6-4.7) Magnesium Level 1.9 mg/dL (1.8-2.4) Albumin 1.5 g/dL (3.4-5.0) Laboratory Tests Test 09/08/18 05:00 White Blood Count 10.4 x10^3/uL (4.0-11.0) Red Blood Count 3.24 x10^6/uL (4.30-5.70) Hemoglobin 9.0 g/dL (13.0-17.5) Hematocrit 28.5 % (39.0-53.0) Mean Corpuscular Volume 88 fL (79-100) Mean Corpuscular Hemoglobin 28 pg (25-35) Mean Corpuscular Hemoglobin Concent 32 g/dL (31-37) Red Cell Distribution Width 16.2 % (11.5-14.5) Platelet Count 347 x10^3/uL (140-400) Sodium Level 139 mmol/L (136-145) Potassium Level 4.6 mmol/L (3.5-5.1) Chloride Level 101 mmol/L (98-107) Carbon Dioxide Level 29 mmol/L (21-32) Anion Gap 9 (6-14) Blood Urea Nitrogen 27 mg/dL (8-26) Creatinine 6.3 mg/dL (0.7-1.3) Estimated GFR (Cockcroft-Gault) 9.3 Glucose Level 92 mg/dL (70-99) Calcium Level 8.5 mg/dL (8.5-10.1) Microbiology 09/05/18 Blood Culture - Preliminary, Resulted NO GROWTH AFTER 2 DAYS Medications Current Medications Iohexol (Omnipaque 350 Mg/ml) 90 ml 1X ONCE IV Last administered on 09/05/18at 17:21; Start 09/05/18 at 17:15; Stop 09/05/18 at 17:16; Status DC Info (CONTRAST GIVEN -- Rx MONITORING) 1 each PRN DAILY PRN MC SEE COMMENTS; Start 09/05/18 at 17:15; Stop 09/07/18 at 17:14; Status DC Polysaccharide Iron Complex (Niferex 150) 150 mg BID66 PO Last administered on 09/07/18at 17:36; Start 09/05/18 at 21:00 Darbepoetin Napoleon (Aranesp) 60 mcg WEEKLYHS SQ ; Start 09/10/18 at 21:00; Status Cancel Pantoprazole Sodium (Protonix) 40 mg BIDAC PO Last administered on 09/05/18at 20 :57; Start 09/05/18 at 21:00; Stop 09/06/18 at 10:25; Status DC Vitamin B Complex/ Vitamin C (Massiel-Darrel) 1 tab DAILY PO Last administered on at 09:27; Start 09/06/18 at 09:00 Calcium Acetate (Phoslo) 667 mg TIDWMEALS PO Last administered on 09/07/18at 17: 17; Start 09/06/18 at 08:00 Piperacillin Sod/ Tazobactam Sod (Zosyn Per Pharmacy) 1 each PRN DAILY PRN MC SEE COMMENTS; Start 09/05/18 at 17:45 Piperacillin Sod/ Tazobactam Sod 2.25 gm/Sodium Chloride 50 ml @ 100 mls/hr 1X ONCE IV Last administered on 09/05/18at 18:17; Start 09/05/18 at 17:45; Stop 09/05/18 at 18:14; Status DC Fentanyl Citrate (Fentanyl 2ml Vial) 50 mcg 1X ONCE IV Last administered on at 18:13; Start 09/05/18 at 18:00; Stop 09/05/18 at 18:01; Status DC Piperacillin Sod/ Tazobactam Sod 2.25 gm/Sodium Chloride 50 ml @ 100 mls/hr Q8HRS IV Last administered on 09/08/18at 06:33; Start 09/06/18 at 00:00 Tramadol HCl (Ultram) 50 mg PRN Q6HRS PRN PO MODERATE PAIN Last administered on 09/07/18at 17:18; Start 09/06/18 at 01:30 Acetaminophen (Tylenol) 650 mg PRN Q6HRS PRN PO MILD PAIN; Start 09/06/18 at 01 :30 Sodium Chloride 1,000 ml @ 1,000 mls/hr Q1H PRN IV hypotension; Start 09/06/18 at 08:09; Stop 09/06/18 at 14:08; Status DC Albumin Human 200 ml @ 200 mls/hr 1X PRN PRN IV Hypotension; Start 09/06/18 at 08:15; Stop 09/06/18 at 14:14; Status DC Acetaminophen (Tylenol) 500 mg 1X PRN PRN PO MILD PAIN / TEMP; Start 09/06/18 at 08:15; Stop 09/07/18 at 08:14; Status DC Diphenhydramine HCl (Benadryl) 25 mg 1X PRN PRN IV ITCHING; Start 09/06/18 at 08:15; Stop 09/07/18 at 08:14; Status DC Diphenhydramine HCl (Benadryl) 25 mg 1X PRN PRN IV ITCHING; Start 09/06/18 at 08:15; Stop 09/07/18 at 08:14; Status DC Sodium Chloride 1,000 ml @ 400 mls/hr Q2H30M PRN IV PATENCY; Start 09/06/18 at 08:09; Stop 09/06/18 at 20:08; Status DC Info (PHARMACY MONITORING -- do not chart) 1 each PRN DAILY PRN MC SEE COMMENTS ; Start 09/06/18 at 08:15 Metoprolol Succinate (Toprol Xl) 25 mg DAILY PO Last administered on 09/06/18 14:00; Start 09/06/18 at 11:00; Stop 09/07/18 at 09:00; Status DC Pantoprazole Sodium (Protonix) 40 mg DAILYAC PO Last administered on 09/07/18 09:30; Start 09/06/18 at 10:15 Fentanyl Citrate (Fentanyl 2ml Vial) 50 mcg 1X ONCE IV Last administered on at 11:54; Start 09/06/18 at 11:30; Stop 09/06/18 at 11:31; Status DC Darbepoetin Napoleon (Aranesp) 60 mcg WEEKLYHS SQ Last administered on 09/06/18at 20 :45; Start 09/06/18 at 21:00 Lactobacillus Rhamnosus (Culturelle) 1 cap BID PO Last administered on 21:26; Start 09/06/18 at 21:00 Metoprolol Succinate (Toprol Xl) 50 mg DAILY PO Last administered on 09/07/18 09:29; Start 09/07/18 at 09:00 Ondansetron HCl (Zofran) 4 mg PRN Q6HRS PRN IV NAUSEA/VOMITING; Start 09/10/18 at 07:00; Stop 09/10/18 at 18:00 Fentanyl Citrate (Fentanyl 2ml Vial) 25 mcg PRN Q5MIN PRN IV MILD PAIN; Start 09/10/18 at 07:00; Stop 09/10/18 at 18:00 Fentanyl Citrate (Fentanyl 2ml Vial) 50 mcg PRN Q5MIN PRN IV MODERATE TO SEVERE PAIN; Start 09/10/18 at 07:00; Stop 09/10/18 at 18:00 Morphine Sulfate (Morphine Sulfate) 1 mg PRN Q10MIN PRN IV SEVERE PAIN; Start 09/10/18 at 07:00; Stop 09/10/18 at 18:00 Ringer's Solution 1,000 ml @ 30 mls/hr Q24H IV ; Start 09/10/18 at 07:00; Stop 09/10/18 at 18:59 Lidocaine HCl (Xylocaine-Mpf 1% 2ml Vial) 2 ml PRN 1X PRN ID PRIOR TO IV START ; Start 09/10/18 at 07:00; Stop 09/10/18 at 18:00 Hydromorphone HCl (Dilaudid) 0.5 mg PRN Q10MIN PRN IV SEV PAIN, Second choice; Start 09/10/18 at 07:00; Stop 09/10/18 at 18:00 Prochlorperazine Edisylate (Compazine) 5 mg PACU PRN PRN IV NAUSEA, MRX1; Start 09/10/18 at 07:00; Stop 09/10/18 at 18:00 Sodium Chloride 1,000 ml @ 1,000 mls/hr Q1H PRN IV hypotension; Start 09/08/18 at 07:00; Stop 09/08/18 at 12:59; Status DC Sodium Chloride 1,000 ml @ 400 mls/hr Q2H30M PRN IV PATENCY; Start 09/08/18 at 07:00; Stop 09/08/18 at 18:59 Info (PHARMACY MONITORING -- do not chart) 1 each PRN DAILY PRN MC SEE COMMENTS ; Start 09/08/18 at 08:30; Status UNV Info (PHARMACY MONITORING -- do not chart) 1 each PRN DAILY PRN MC SEE COMMENTS ; Start 09/08/18 at 08:30; Status UNV Active Scripts Active [Pantoprazole] 40 MG Tablet.dr 40 Mg PO BIDAC 30 Days [Darbepoetin Napoleon In Polysorbat] 60 MCG/0.3 ML Disp.syrin 60 Mcg SQ WEEKLYHS 7 Days Poly-Iron (Iron Polysaccharides Complex) 150 Mg Capsule 150 Mg PO BID66 30 Days Vitals/I & O Vital Sign - Last 24 Hours 09/07/18 09/07/18 09/07/18 09/07/18 15:00 17:18 19:00 19:00 Temp 98.7 98.5 98.7 98.5 Pulse 99 99 Resp 16 18 20 B/P (MAP) 132/80 (97) 124/83 (97) Pulse Ox 89 94 94 O2 Delivery Room Air Room Air Nasal Cannula Room Air O2 Flow Rate 2.0 09/07/18 09/07/18 09/08/18 09/08/18 20:00 23:00 03:00 08:00 Temp 98.7 98.7 98.7 98.7 Pulse 102 100 Resp 20 20 B/P (MAP) 124/79 (94) 119/77 (91) Pulse Ox 93 92 O2 Delivery Nasal Cannula Room Air Room Air Room Air O2 Flow Rate 2.0 Intake and Output 09/07/18 09/07/18 09/08/18 14:59 22:59 06:59 Intake Total 300 ml 150 ml 500 ml Balance 300 ml 150 ml 500 ml BRAEDEN ADDISON MD Sep 08, 2018 14:39
[2018-09-08] MEDS: LACTOBACILLUS RHAMNOSUS GG 1 CAPSULE. PO SCH ×2 (14:42→20:55)
[2018-09-08] MEDS: PANTOPRAZOLE 40 MG TABLET.DR. PO SCH (14:42)
[2018-09-08] MEDS: FOLIC/VIT B COMP W-C (RENAL) TABLET. PO SCH (14:43)
[2018-09-08] MEDS: METOPROLOL SUCC 24HR ER 25 MG TAB.ER.24H. PO SCH (14:44)
[2018-09-08 15:00] VITALS: BP 96/56
[2018-09-08] MEDS: ACETAMINOPHEN 325 MG TABLET. PO PRN (16:59)
--- NOTE | 2018-09-08 18:17 | NUR ---
Dr Huertas notified pt refusing to wear printed circuit board drafter.Continue telemetry order. Pt did at 1700 agree to wear printed circuit board drafter.
[2018-09-08 19:00] VITALS: BP 108/63
[2018-09-08 23:06] VITALS: BP 103/57
[2018-09-09 03:07] VITALS: BP 110/67
[2018-09-09] MEDS: PANTOPRAZOLE 40 MG TABLET.DR. PO SCH (05:28)
[2018-09-09] MEDS: PIPERACILLIN/TAZOBACTAM 2.25 GM in IV NORMAL SALINE 50ML 50 ML IV SCH ×3 (05:28→21:05)
[2018-09-09] MEDS: IRON POLYSACCHARIDE COMPLEX 150 MG CAPSULE PO SCH ×2 (05:28→17:22)
[2018-09-09 07:00] VITALS: BP 107/62
[2018-09-09] MEDS: LACTOBACILLUS RHAMNOSUS GG 1 CAPSULE. PO SCH ×2 (08:21→21:05)
[2018-09-09] MEDS: CALCIUM ACETATE 667 MG CAPSULE PO SCH ×3 (08:21→17:22)
[2018-09-09] MEDS: FOLIC/VIT B COMP W-C (RENAL) TABLET. PO SCH (08:22)
[2018-09-09] MEDS: METOPROLOL SUCC 24HR ER 25 MG TAB.ER.24H. PO SCH (08:23)
--- NOTE | 2018-09-09 09:41 | PDOC ---
Renal-Progress Notes Subjective Notes Notes NONE History of Present Illness Hx of present illness STABLE Vitals Vitals Vital Signs Date Time Temp Pulse Resp B/P (MAP) Pulse Ox O2 Delivery O2 Flow Rate FiO2 09/09/18 08:23 95 107/62 09/09/18 08:00 Room Air 09/09/18 07:00 98.5 17 95 98.5 Weight Weight [ ] I.O. Intake and Output Intake and Output 09/09/18 07:00 Intake Total 660 ml Balance 660 ml Intake Oral 560 ml IV Total 100 ml # Voids 2 Labs Labs Laboratory Tests Test 09/09/18 07:36 Glucose (Fingerstick) 128 mg/dL (70-99) Micro Micro Microbiology 09/05/18 Blood Culture - Preliminary, Resulted NO GROWTH AFTER 3 DAYS Review of Systems Constitutional: yes: alert, oriented Ears/Nose/Throat: Yes: no symptom reported Eyes: Yes: no symptom reported Pulmonary: Yes dyspnea Cardiovascular: Yes no symptom reported Gastrointestional: Yes: no symptom reported Genitourinary: Yes: no symptom reported Musculoskeletal: Yes: no symptom reported Skin: Yes no symptom reported Psychiatric/Neurological: Yes: no symptom reported Endocrine: Yes: no symptom reported Physical Exam General Appearance: no apparent distress Skin: warm Respiratory: bilateral CTA Heart: S1S2, RRR Abdomen: soft, bowel sounds present Genitourinary: bladder flat Extremities: pulses present Neurology: alert, oriented Assessment Assessment IMP DIASTOLIC AND SYSTOLIC ACUTE ON CHRONIC CHF CARDIOMYOPATHY ACUTE HYPOXIC RESP FAILURE ANEMIA ? DRUG SEEKING ESRD DUE TO CHRONIC HYDRONEPHROSIS-TTS HTN HX NON COMPLIANCE HX PERICARDIAL EFFUSION PLAN ARANESP HD TOMORROW PERICARDIAL WINDOW TOMORROW MARIIA VIDAL MD Sep 09, 2018 09:41
--- NOTE | 2018-09-09 09:48 | PDOC ---
PROGRESS NOTES Chief Complaint Chief Complaint acute hypoxic respiratory failure at admit, improved Moderate ongoing bilateral pulmonary infiltrates and nodules ESRD on HD TTHS Anemia of ESRD Recent massive gI bleed s./p IR coiling - hgb 9.5 weakness small to mod pericardial effusion. Trops normal, pericardial effusion appears to be subacute in nature with fibrinous components. The effusion is mostly posteriorly layered. Acute on chronic systolic CHF Concern for drug seeking behavior Cardiomyopathy: EF 35% History of Present Illness History of Present Illness PLAN: Will likely need pericardial window 09/10 CT chest r.p PE HD per renal FUll code W/O hypoxia cardiology consult The pericardial effusion appears to be subacute in nature with fibrinous components. The effusion is mostly posteriorly layered. Vitals Vitals Vital Signs Date Time Temp Pulse Resp B/P (MAP) Pulse Ox O2 Delivery O2 Flow Rate FiO2 09/09/18 08:23 95 107/62 09/09/18 08:00 Room Air 09/09/18 07:00 98.5 17 95 98.5 Physical Exam General: Alert, Oriented X3, No acute distress, mild distress Heart: Regular rate, No murmurs (maffled), Other (JVD) Lungs: Clear, Crackles Abdomen: Soft, No tenderness, No hepatosplenomegaly Extremities: No clubbing, No cyanosis Skin: No significant lesion Labs LABS CTA OF THE CHEST WITH AND WITHOUT CONTRAST Clinical indications: Shortness of air. Dialysis patient. Okayed for contrast. History of pulmonary embolism. Technique: Noncontrast axial localizer was performed. After IV infusion of 90 cc of Omnipaque 350, helical CT scanning of the chest was performed using the CT pulmonary embolism protocol. A coronal MIP reconstruction was generated. PQRS compliance Statement One or more of the following individualized dose reduction techniques were utilized for this study: 1. Automated exposure control 2. Adjustment of the mA and/or kV according to patient size 3. Use of iterative reconstruction technique Comparison: CTA of the chest dated August 06, 2018. Findings: No pulmonary embolism is seen today. The previously seen pulmonary emboli are not evident today. Heart size is enlarged. There is a moderate pericardial effusion which has increased from the previous study. No bulky thoracic lymphadenopathy is evident. No focal aneurysmal dilatation or dissection of the thoracic aorta is seen. There is a moderate size left-sided pleural effusion including loculated pleural fluid within the left major fissure. This was seen previously and has not changed significantly. There is a small right-sided pleural effusion. This has improved somewhat given the decrease in the amount of loculated pleural fluid within the major fissure on the right side. Bilateral groundglass lung infiltrates are again evident which have improved. This is indicative of improvement of pulmonary edema. There are bilateral spiculated or irregular nodules. These have improved and may represent improvement of infectious or inflammatory nodules or improvement of metastatic disease if there is a history of chemotherapy treatment. Bilateral mucous plugs are present within peripheral bronchi. The proximal bronchial tree is patent otherwise. No pneumothorax is seen. No lytic process is seen. IMPRESSION: No pulmonary embolism today. Moderate-sized pericardial effusion which has progressed since the prior study. Cardiac tamponade is possible. Bilateral pleural effusions. Moderate on the left which is unchanged. Small on the right which has improved. Mild improvement in bilateral spiculated lung nodules. Improvement of bilateral pulmonary edema since the previous study. Bilateral mucous plugs are evident within peripheral bronchi. Note-this critical result was discussed with Dr. Isaac Lopez in the emergency room at 5:29 PM on September 05, 2018. Electronically signed by: Ruddy Escalona MD (09/05/2018 5:36 PM) [facility] DICTATED and SIGNED BY: RUDDY ESCALONA MD DATE: 09/05/181717 Laboratory Tests Test 09/09/18 07:36 Glucose (Fingerstick) 128 mg/dL (70-99) Assessment and Plan Assessmemt and Plan Problems Medical Problems: (1) Dyspnea Status: Acute Comment Review of Relevant I have reviewed the following items allyson (where applicable) has been applied. Labs Laboratory Tests Test 09/07/18 14:05 09/08/18 05:00 09/09/18 07:36 White Blood Count 10.9 x10^3/uL (4.0-11.0) 10.4 x10^3/uL (4.0-11.0) Red Blood Count 3.03 x10^6/uL (4.30-5.70) 3.24 x10^6/uL (4.30-5.70) Hemoglobin 8.4 g/dL (13.0-17.5) 9.0 g/dL (13.0-17.5) Hematocrit 26.5 % (39.0-53.0) 28.5 % (39.0-53.0) Mean Corpuscular Volume 88 fL (79-100) 88 fL (79-100) Mean Corpuscular Hemoglobin 28 pg (25-35) 28 pg (25-35) Mean Corpuscular Hemoglobin Concent 32 g/dL (31-37) 32 g/dL (31-37) Red Cell Distribution Width 16.3 % (11.5-14.5) 16.2 % (11.5-14.5) Platelet Count 287 x10^3/uL (140-400) 347 x10^3/uL (140-400) Neutrophils (%) (Auto) 70 % (31-73) Lymphocytes (%) (Auto) 10 % (24-48) Monocytes (%) (Auto) 16 % (0-9) Eosinophils (%) (Auto) 3 % (0-3) Basophils (%) (Auto) 1 % (0-3) Neutrophils # (Auto) 7.6 x10^3uL (1.8-7.7) Lymphocytes # (Auto) 1.1 x10^3/uL (1.0-4.8) Monocytes # (Auto) 1.7 x10^3/uL (0.0-1.1) Eosinophils # (Auto) 0.4 x10^3/uL (0.0-0.7) Basophils # (Auto) 0.1 x10^3/uL (0.0-0.2) Sodium Level 138 mmol/L (136-145) 139 mmol/L (136-145) Potassium Level 5.2 mmol/L (3.5-5.1) 4.6 mmol/L (3.5-5.1) Chloride Level 102 mmol/L (98-107) 101 mmol/L (98-107) Carbon Dioxide Level 30 mmol/L (21-32) 29 mmol/L (21-32) Anion Gap 6 (6-14) 9 (6-14) Blood Urea Nitrogen 22 mg/dL (8-26) 27 mg/dL (8-26) Creatinine 5.4 mg/dL (0.7-1.3) 6.3 mg/dL (0.7-1.3) Estimated GFR (Cockcroft-Gault) 11.1 9.3 Glucose Level 100 mg/dL (70-99) 92 mg/dL (70-99) Calcium Level 8.5 mg/dL (8.5-10.1) 8.5 mg/dL (8.5-10.1) Phosphorus Level 5.1 mg/dL (2.6-4.7) Magnesium Level 1.9 mg/dL (1.8-2.4) Albumin 1.5 g/dL (3.4-5.0) Glucose (Fingerstick) 128 mg/dL (70-99) Laboratory Tests Test 09/09/18 07:36 Glucose (Fingerstick) 128 mg/dL (70-99) Microbiology 09/05/18 Blood Culture - Preliminary, Resulted NO GROWTH AFTER 3 DAYS Medications Current Medications Iohexol (Omnipaque 350 Mg/ml) 90 ml 1X ONCE IV Last administered on 09/05/18at 17:21; Start 09/05/18 at 17:15; Stop 09/05/18 at 17:16; Status DC Info (CONTRAST GIVEN -- Rx MONITORING) 1 each PRN DAILY PRN MC SEE COMMENTS; Start 09/05/18 at 17:15; Stop 09/07/18 at 17:14; Status DC Polysaccharide Iron Complex (Niferex 150) 150 mg BID66 PO Last administered on 09/09/18at 05:28; Start 09/05/18 at 21:00 Darbepoetin Napoleon (Aranesp) 60 mcg WEEKLYHS SQ ; Start 09/10/18 at 21:00; Status Cancel Pantoprazole Sodium (Protonix) 40 mg BIDAC PO Last administered on 09/05/18at 20 :57; Start 09/05/18 at 21:00; Stop 09/06/18 at 10:25; Status DC Vitamin B Complex/ Vitamin C (Massiel-Darrel) 1 tab DAILY PO Last administered on at 08:22; Start 09/06/18 at 09:00 Calcium Acetate (Phoslo) 667 mg TIDWMEALS PO Last administered on 09/09/18at 08: 21; Start 09/06/18 at 08:00 Piperacillin Sod/ Tazobactam Sod (Zosyn Per Pharmacy) 1 each PRN DAILY PRN MC SEE COMMENTS; Start 09/05/18 at 17:45 Piperacillin Sod/ Tazobactam Sod 2.25 gm/Sodium Chloride 50 ml @ 100 mls/hr 1X ONCE IV Last administered on 09/05/18at 18:17; Start 09/05/18 at 17:45; Stop 09/05/18 at 18:14; Status DC Fentanyl Citrate (Fentanyl 2ml Vial) 50 mcg 1X ONCE IV Last administered on at 18:13; Start 09/05/18 at 18:00; Stop 09/05/18 at 18:01; Status DC Piperacillin Sod/ Tazobactam Sod 2.25 gm/Sodium Chloride 50 ml @ 100 mls/hr Q8HRS IV Last administered on 09/09/18at 05:28; Start 09/06/18 at 00:00 Tramadol HCl (Ultram) 50 mg PRN Q6HRS PRN PO MODERATE PAIN Last administered on 09/07/18at 17:18; Start 09/06/18 at 01:30 Acetaminophen (Tylenol) 650 mg PRN Q6HRS PRN PO MILD PAIN Last administered on 09/08/18at 16:59; Start 09/06/18 at 01:30 Sodium Chloride 1,000 ml @ 1,000 mls/hr Q1H PRN IV hypotension; Start 09/06/18 at 08:09; Stop 09/06/18 at 14:08; Status DC Albumin Human 200 ml @ 200 mls/hr 1X PRN PRN IV Hypotension; Start 09/06/18 at 08:15; Stop 09/06/18 at 14:14; Status DC Acetaminophen (Tylenol) 500 mg 1X PRN PRN PO MILD PAIN / TEMP; Start 09/06/18 at 08:15; Stop 09/07/18 at 08:14; Status DC Diphenhydramine HCl (Benadryl) 25 mg 1X PRN PRN IV ITCHING; Start 09/06/18 at 08:15; Stop 09/07/18 at 08:14; Status DC Diphenhydramine HCl (Benadryl) 25 mg 1X PRN PRN IV ITCHING; Start 09/06/18 at 08:15; Stop 09/07/18 at 08:14; Status DC Sodium Chloride 1,000 ml @ 400 mls/hr Q2H30M PRN IV PATENCY; Start 09/06/18 at 08:09; Stop 09/06/18 at 20:08; Status DC Info (PHARMACY MONITORING -- do not chart) 1 each PRN DAILY PRN MC SEE COMMENTS ; Start 09/06/18 at 08:15 Metoprolol Succinate (Toprol Xl) 25 mg DAILY PO Last administered on 09/06/18at 14:00; Start 09/06/18 at 11:00; Stop 09/07/18 at 09:00; Status DC Pantoprazole Sodium (Protonix) 40 mg DAILYAC PO Last administered on 09/09/18at 05:28; Start 09/06/18 at 10:15 Fentanyl Citrate (Fentanyl 2ml Vial) 50 mcg 1X ONCE IV Last administered on at 11:54; Start 09/06/18 at 11:30; Stop 09/06/18 at 11:31; Status DC Darbepoetin Napoleon (Aranesp) 60 mcg WEEKLYHS SQ Last administered on 09/06/18at 20 :45; Start 09/06/18 at 21:00 Lactobacillus Rhamnosus (Culturelle) 1 cap BID PO Last administered on at 08:21; Start 09/06/18 at 21:00 Metoprolol Succinate (Toprol Xl) 50 mg DAILY PO Last administered on 09/09/18at 08:23; Start 09/07/18 at 09:00 Ondansetron HCl (Zofran) 4 mg PRN Q6HRS PRN IV NAUSEA/VOMITING; Start 09/10/18 at 07:00; Stop 09/10/18 at 18:00 Fentanyl Citrate (Fentanyl 2ml Vial) 25 mcg PRN Q5MIN PRN IV MILD PAIN; Start 09/10/18 at 07:00; Stop 09/10/18 at 18:00 Fentanyl Citrate (Fentanyl 2ml Vial) 50 mcg PRN Q5MIN PRN IV MODERATE TO SEVERE PAIN; Start 09/10/18 at 07:00; Stop 09/10/18 at 18:00 Morphine Sulfate (Morphine Sulfate) 1 mg PRN Q10MIN PRN IV SEVERE PAIN; Start 09/10/18 at 07:00; Stop 09/10/18 at 18:00 Ringer's Solution 1,000 ml @ 30 mls/hr Q24H IV ; Start 09/10/18 at 07:00; Stop 09/10/18 at 18:59 Lidocaine HCl (Xylocaine-Mpf 1% 2ml Vial) 2 ml PRN 1X PRN ID PRIOR TO IV START ; Start 09/10/18 at 07:00; Stop 09/10/18 at 18:00 Hydromorphone HCl (Dilaudid) 0.5 mg PRN Q10MIN PRN IV SEV PAIN, Second choice; Start 09/10/18 at 07:00; Stop 09/10/18 at 18:00 Prochlorperazine Edisylate (Compazine) 5 mg PACU PRN PRN IV NAUSEA, MRX1; Start 09/10/18 at 07:00; Stop 09/10/18 at 18:00 Sodium Chloride 1,000 ml @ 1,000 mls/hr Q1H PRN IV hypotension; Start 09/08/18 at 07:00; Stop 09/08/18 at 12:59; Status DC Sodium Chloride 1,000 ml @ 400 mls/hr Q2H30M PRN IV PATENCY; Start 09/08/18 at 07:00; Stop 09/08/18 at 18:59; Status DC Info (PHARMACY MONITORING -- do not chart) 1 each PRN DAILY PRN MC SEE COMMENTS ; Start 09/08/18 at 08:30; Status UNV Info (PHARMACY MONITORING -- do not chart) 1 each PRN DAILY PRN MC SEE COMMENTS ; Start 09/08/18 at 08:30; Status UNV Active Scripts Active [Pantoprazole] 40 MG Tablet.dr 40 Mg PO BIDAC 30 Days [Darbepoetin [place] In Polysorbat] 60 MCG/0.3 ML Disp.syrin 60 Mcg SQ WEEKLYHS 7 Days Poly-Iron (Iron Polysaccharides Complex) 150 Mg Capsule 150 Mg PO BID66 30 Days Vitals/I & O Vital Sign - Last 24 Hours 09/08/18 09/08/18 09/08/18 09/08/18 14:44 15:00 19:00 19:00 Temp 100.1 98.0 100.1 98.0 Pulse 110 118 97 Resp 20 20 B/P (MAP) 140/70 96/56 (69) 108/63 (78) Pulse Ox 90 90 O2 Delivery Room Air Room Air Room Air 09/08/18 09/09/18 09/09/18 09/09/18 23:06 03:07 07:00 08:00 Temp 98.7 98.0 98.5 98.7 98.0 98.5 Pulse 93 94 95 Resp 20 20 17 B/P (MAP) 103/57 (72) 110/67 (81) 107/62 (77) Pulse Ox 91 92 95 O2 Delivery Room Air Room Air Room Air 09/09/18 08:23 Pulse 95 B/P (MAP) 107/62 Intake and Output 09/08/18 09/08/18 09/09/18 14:59 22:59 06:59 Intake Total 0 ml 250 ml 410 ml Balance 0 ml 250 ml 410 ml ORQUIDEA GAMINO MD Sep 09, 2018 09:48
[2018-09-09 11:00] VITALS: BP 114/63
[2018-09-09 15:00] VITALS: BP 119/72
[2018-09-09 19:00] VITALS: BP 108/73
[2018-09-09] MEDS: traMADol 50 MG TABLET PO PRN (22:25)
[2018-09-09 23:05] VITALS: BP 128/99
[2018-09-10] VITALS (13 sets, daily range): BP systolic 92–128; BP diastolic 50–69
[2018-09-10] MEDS: PANTOPRAZOLE 40 MG TABLET.DR. PO SCH (05:19)
[2018-09-10] MEDS: IRON POLYSACCHARIDE COMPLEX 150 MG CAPSULE PO SCH ×2 (05:19→17:27)
[2018-09-10] MEDS: PIPERACILLIN/TAZOBACTAM 2.25 GM in IV NORMAL SALINE 50ML 50 ML IV SCH ×2 (05:20→17:26)
[2018-09-10 05:24] LABS: BASO # 0.2 x10^3/uL (0.0-0.2); BASO % 1 % (0-3); EOS # 0.9 x10^3/uL (0.0-0.7); EOS % 5 % (0-3); HEMATOCRIT 25.1 % (39.0-53.0); HEMOGLOBIN 7.9 g/dL (13.0-17.5); LYMPH # 1.6 x10^3/uL (1.0-4.8); LYMPH % 9 % (24-48); MEAN CORPUSCULAR HEMOGLOBIN 28 pg (25-35); MEAN CORPUSCULAR HGB CONC 31 g/dL (31-37); MEAN CORPUSCULAR VOLUME 88 fL (79-100); MONO # 2.1 x10^3/uL (0.0-1.1); MONO % 12 % (0-9); NEUT # 13.8 x10^3uL (1.8-7.7); NEUT % 75 % (31-73); PLATELET COUNT 323 x10^3/uL (140-400); RED BLOOD COUNT 2.87 x10^6/uL (4.30-5.70); RED CELL DISTRIBUTION WIDTH 16.2 % (11.5-14.5); WHITE BLOOD COUNT 18.5 x10^3/uL (4.0-11.0)
[2018-09-10 05:36] LABS: CALCIUM 8.2 mg/dL (8.5-10.1); GFR 9.8; POTASSIUM 4.5 mmol/L (3.5-5.1)
[2018-09-10] MEDS ORDERED: IV RINGERS,LACTATED 1000ML 1,000 ML IV SCH (07:00)
[2018-09-10] MEDS ORDERED: ONDANSETRON PF 4 MG/2 ML VIAL. IV PRN (07:00)
[2018-09-10] MEDS ORDERED: HYDROmorphone 2 MG/ML VIAL IV PRN (07:00)
[2018-09-10] MEDS ORDERED: MORPHINE SULFATE 4 MG/ML VIAL. IV PRN (07:00)
[2018-09-10] MEDS ORDERED: PROCHLORPERAZINE 10 MG/2 ML VIAL. IV PRN (07:00)
[2018-09-10] MEDS ORDERED: fentaNYL PF VIAL 100 MCG/2 ML VIAL IV PRN (07:00)
[2018-09-10] MEDS ORDERED: LIDOCAINE 1% PF 2 ML VIAL. ID PRN (07:00)
[2018-09-10] MEDS ORDERED: IV NORMAL SALINE 1000ML BAG 1,000 ML IV PRN ×2 (07:00)
[2018-09-10 07:22] LABS: % BANDS 4 % (0-9); % EOS 6 % (0-5); % LYMPHS 9 % (24-48); % MONOS 10 % (0-10); % SEGS 71 % (35-66); PLT ESTIMATE ADEQUATE (ADEQUATE)
[2018-09-10 07:23] LABS: ANISOCYTOSIS SLIGHT; POLYCHROMASIA SLIGHT
[2018-09-10] MEDS: CALCIUM ACETATE 667 MG CAPSULE PO SCH ×3 (07:44→17:29)
[2018-09-10] MEDS: LACTOBACILLUS RHAMNOSUS GG 1 CAPSULE. PO SCH ×2 (07:44→21:00)
[2018-09-10] MEDS: FOLIC/VIT B COMP W-C (RENAL) TABLET. PO SCH (07:45)
[2018-09-10] MEDS: METOPROLOL SUCC 24HR ER 25 MG TAB.ER.24H. PO SCH ×2 (07:45→10:36)
[2018-09-10] MEDS ORDERED: DIALYSIS PATIENT. MC PRN ×2 (08:00)
--- NOTE | 2018-09-10 09:48 | PDOC ---
SUBJECTIVE ROS Seen on HD, No acute complaints currently OBJECTIVE Vital Signs Vital Signs Date Time Temp Pulse Resp B/P (MAP) Pulse Ox O2 Delivery O2 Flow Rate FiO2 09/10/18 07:45 Room Air 09/10/18 07:00 98.8 98 20 126/63 (84) 95 98.8 09/09/18 23:25 2.0 I & 0 Intake and Output 09/10/18 06:59 Intake Total 850 ml Output Total 1400 ml Balance -550 ml Intake Oral 750 ml IV Total 100 ml Output Urine Total 1400 ml # Voids 4 PHYSICAL EXAM Physical Exam GEN: NAD HEENT- On RA NECK: Supple CVS: S1S2,RRR RESP: No Acc. Muscle Use, CTA GI: BS + ve, NO Bruit, Non Tender, Non Distended : No CVA tenderness, No Suprapubic Tenderness Suprapubic Catheter+ Neuro- AXo X 3 Skin No Rash DIAGNOSIS/ASSESSMENT Assessment & Plan ESRD- On HD TTS at [facility] Etiology- Bilat Hydronephrosis Multiple Hospitalizations Additional Tx this am as plan for pericardial window Seen on HD, tolerating well Continue as Ordered, madhu Molina Pericardial effusion without clinical tamponade Plan for pericardial window Anemia- Multiple Hospitalizations Hgb has been as low as 2.9 Dx with GI bleed , On CLIFF Elevated WBC- as per primary CTA with and w/o Contrast 09/05- Moderate-sized pericardial effusion which has progressed since the prior study. Cardiac tamponade is possible. Bilateral pleural effusions. Moderate on the left which is unchanged. Small on the right which has improved. Mild improvement in bilateral spiculated lung nodules. Improvement of bilateral pulmonary edema since the previous study. Bilateral mucous plugs are evident within peripheral bronchi. COMMENT/RELEVANT DATA Meds Current Medications Medications (Trade) Dose Ordered Sig/Kevin Start Time Stop Time Status Last Admin Dose Admin Acetaminophen (Tylenol) 500 mg 1X PRN PRN 09/06/18 08:15 09/07/18 08:14 DC Albumin Human 200 ml @ 200 mls/hr 1X PRN PRN 09/06/18 08:15 09/06/18 14:14 DC Calcium Acetate (Phoslo) 667 mg TIDWMEALS 09/06/18 08:00 09/09/18 17:22 667 MG Darbepoetin Napoleon (Aranesp) 60 mcg WEEKLYHS 09/06/18 21:00 09/06/18 20:45 60 MCG Diphenhydramine HCl (Benadryl) 25 mg 1X PRN PRN 09/06/18 08:15 09/07/18 08:14 DC Fentanyl Citrate (Fentanyl 2ml Vial) 50 mcg PRN Q5MIN PRN 09/10/18 07:00 09/10/18 18:00 Hydromorphone HCl (Dilaudid) 0.5 mg PRN Q10MIN PRN 09/10/18 07:00 09/10/18 18:00 Info (CONTRAST GIVEN -- Rx MONITORING) 1 each PRN DAILY PRN 09/05/18 17:15 09/07/18 17:14 DC Info (PHARMACY MONITORING -- do not chart) 1 each PRN DAILY PRN 09/10/18 08:00 UNV Iohexol (Omnipaque 350 Mg/ml) 90 ml 1X ONCE 09/05/18 17:15 09/05/18 17:16 DC 09/05/18 17:21 90 ML Lactobacillus Rhamnosus (Culturelle) 1 cap BID 09/06/18 21:00 09/09/18 21:05 1 CAP Lidocaine HCl (Xylocaine-Mpf 1% 2ml Vial) 2 ml PRN 1X PRN 09/10/18 07:00 09/10/18 18:00 Metoprolol Succinate (Toprol Xl) 50 mg DAILY 09/07/18 09:00 09/09/18 08:23 50 MG Morphine Sulfate (Morphine Sulfate) 1 mg PRN Q10MIN PRN 09/10/18 07:00 09/10/18 18:00 Ondansetron HCl (Zofran) 4 mg PRN Q6HRS PRN 09/10/18 07:00 09/10/18 18:00 Pantoprazole Sodium (Protonix) 40 mg DAILYAC 09/06/18 10:15 09/10/18 05:19 40 MG Piperacillin Sod/ Tazobactam Sod (Zosyn Per Pharmacy) 1 each PRN DAILY PRN 09/05/18 17:45 Piperacillin Sod/ Tazobactam Sod 2.25 gm/Sodium Chloride 50 ml @ 100 mls/hr Q8HRS 09/06/18 00:00 09/10/18 05:20 100 MLS/HR Polysaccharide Iron Complex (Niferex 150) 150 mg [id number] 09/05/18 21:00 09/10/18 05:19 150 MG Prochlorperazine Edisylate (Compazine) 5 mg PACU PRN PRN 09/10/18 07:00 09/10/18 18:00 Ringer's Solution 1,000 ml @ 30 mls/hr Q24H 09/10/18 07:00 09/10/18 18:59 Sodium Chloride 1,000 ml @ 400 mls/hr Q2H30M PRN 09/10/18 07:00 09/10/18 18:59 Tramadol HCl (Ultram) 50 mg PRN Q6HRS PRN 09/06/18 01:30 09/09/18 22:25 50 MG Vitamin B Complex/ Vitamin C (Massiel-Darrel) 1 tab DAILY 09/06/18 09:00 09/09/18 08:22 1 TAB Lab Laboratory Tests Test 09/10/18 05:04 White Blood Count 18.5 x10^3/uL (4.0-11.0) Red Blood Count 2.87 x10^6/uL (4.30-5.70) Hemoglobin 7.9 g/dL (13.0-17.5) Hematocrit 25.1 % (39.0-53.0) Mean Corpuscular Volume 88 fL (79-100) Mean Corpuscular Hemoglobin 28 pg (25-35) Mean Corpuscular Hemoglobin Concent 31 g/dL (31-37) Red Cell Distribution Width 16.2 % (11.5-14.5) Platelet Count 323 x10^3/uL (140-400) Neutrophils (%) (Auto) 75 % (31-73) Lymphocytes (%) (Auto) 9 % (24-48) Monocytes (%) (Auto) 12 % (0-9) Eosinophils (%) (Auto) 5 % (0-3) Basophils (%) (Auto) 1 % (0-3) Neutrophils # (Auto) 13.8 x10^3uL (1.8-7.7) Lymphocytes # (Auto) 1.6 x10^3/uL (1.0-4.8) Monocytes # (Auto) 2.1 x10^3/uL (0.0-1.1) Eosinophils # (Auto) 0.9 x10^3/uL (0.0-0.7) Basophils # (Auto) 0.2 x10^3/uL (0.0-0.2) Segmented Neutrophils % 71 % (35-66) Band Neutrophils % 4 % (0-9) Lymphocytes % 9 % (24-48) Monocytes % 10 % (0-10) Eosinophils % 6 % (0-5) Platelet Estimate Adequate (ADEQUATE) Polychromasia Slight Anisocytosis Slight Sodium Level 136 mmol/L (136-145) Potassium Level 4.5 mmol/L (3.5-5.1) Chloride Level 99 mmol/L (98-107) Carbon Dioxide Level 29 mmol/L (21-32) Anion Gap 8 (6-14) Blood Urea Nitrogen 33 mg/dL (8-26) Creatinine 6.0 mg/dL (0.7-1.3) Estimated GFR (Cockcroft-Gault) 9.8 Glucose Level 91 mg/dL (70-99) Calcium Level 8.2 mg/dL (8.5-10.1) Results All relevant outside records, renal labs, imaging studies, telemetry/EKG's were reviewed. MARIYA NORMAN MD Sep 10, 2018 09:48
--- NOTE | 2018-09-10 12:15 | NUR ---
Pt left for surgery per bed.Pt to transfer to ICU post surgery,report called to Receiving nurse Randee in ICU. Pt's belongings sent to room 112. Pt's mother Sarah notified of pt's need to transfer to ICU and room number post surgery.
--- NOTE | 2018-09-10 12:21 | PDOC ---
PROGRESS NOTES Chief Complaint Chief Complaint acute hypoxic respiratory failure at admit, improved Moderate ongoing bilateral pulmonary infiltrates and nodules ESRD on HD TTHS Anemia of ESRD Recent massive gI bleed s./p IR coiling - hgb 9.5 weakness small to mod pericardial effusion. Trops normal, pericardial effusion appears to be subacute in nature with fibrinous components. The effusion is mostly posteriorly layered. Acute on chronic systolic CHF Concern for drug seeking behavior Cardiomyopathy: EF 35% History of Present Illness History of Present Illness pericardial window surg today, transfer to ICU cont current HD per renal Full code Vitals Vitals Vital Signs Date Time Temp Pulse Resp B/P (MAP) Pulse Ox O2 Delivery O2 Flow Rate FiO2 09/10/18 10:36 111 126/63 09/10/18 07:45 Room Air 09/10/18 07:00 98.8 20 95 98.8 09/09/18 23:25 2.0 Physical Exam General: mild distress Heart: Regular rate, No murmurs (maffled), Other (JVD) Lungs: Clear, Crackles Abdomen: Soft, No tenderness, No hepatosplenomegaly Extremities: No clubbing, No cyanosis Skin: No significant lesion Labs LABS Laboratory Tests Test 09/10/18 05:04 White Blood Count 18.5 x10^3/uL (4.0-11.0) Red Blood Count 2.87 x10^6/uL (4.30-5.70) Hemoglobin 7.9 g/dL (13.0-17.5) Hematocrit 25.1 % (39.0-53.0) Mean Corpuscular Volume 88 fL (79-100) Mean Corpuscular Hemoglobin 28 pg (25-35) Mean Corpuscular Hemoglobin Concent 31 g/dL (31-37) Red Cell Distribution Width 16.2 % (11.5-14.5) Platelet Count 323 x10^3/uL (140-400) Neutrophils (%) (Auto) 75 % (31-73) Lymphocytes (%) (Auto) 9 % (24-48) Monocytes (%) (Auto) 12 % (0-9) Eosinophils (%) (Auto) 5 % (0-3) Basophils (%) (Auto) 1 % (0-3) Neutrophils # (Auto) 13.8 x10^3uL (1.8-7.7) Lymphocytes # (Auto) 1.6 x10^3/uL (1.0-4.8) Monocytes # (Auto) 2.1 x10^3/uL (0.0-1.1) Eosinophils # (Auto) 0.9 x10^3/uL (0.0-0.7) Basophils # (Auto) 0.2 x10^3/uL (0.0-0.2) Segmented Neutrophils % 71 % (35-66) Band Neutrophils % 4 % (0-9) Lymphocytes % 9 % (24-48) Monocytes % 10 % (0-10) Eosinophils % 6 % (0-5) Platelet Estimate Adequate (ADEQUATE) Polychromasia Slight Anisocytosis Slight Sodium Level 136 mmol/L (136-145) Potassium Level 4.5 mmol/L (3.5-5.1) Chloride Level 99 mmol/L (98-107) Carbon Dioxide Level 29 mmol/L (21-32) Anion Gap 8 (6-14) Blood Urea Nitrogen 33 mg/dL (8-26) Creatinine 6.0 mg/dL (0.7-1.3) Estimated GFR (Cockcroft-Gault) 9.8 Glucose Level 91 mg/dL (70-99) Calcium Level 8.2 mg/dL (8.5-10.1) Assessment and Plan Assessmemt and Plan Problems Medical Problems: (1) Dyspnea Status: Acute Comment Review of Relevant I have reviewed the following items allyson (where applicable) has been applied. Labs Laboratory Tests Test 09/09/18 07:36 09/10/18 05:04 Glucose (Fingerstick) 128 mg/dL (70-99) White Blood Count 18.5 x10^3/uL (4.0-11.0) Red Blood Count 2.87 x10^6/uL (4.30-5.70) Hemoglobin 7.9 g/dL (13.0-17.5) Hematocrit 25.1 % (39.0-53.0) Mean Corpuscular Volume 88 fL (79-100) Mean Corpuscular Hemoglobin 28 pg (25-35) Mean Corpuscular Hemoglobin Concent 31 g/dL (31-37) Red Cell Distribution Width 16.2 % (11.5-14.5) Platelet Count 323 x10^3/uL (140-400) Neutrophils (%) (Auto) 75 % (31-73) Lymphocytes (%) (Auto) 9 % (24-48) Monocytes (%) (Auto) 12 % (0-9) Eosinophils (%) (Auto) 5 % (0-3) Basophils (%) (Auto) 1 % (0-3) Neutrophils # (Auto) 13.8 x10^3uL (1.8-7.7) Lymphocytes # (Auto) 1.6 x10^3/uL (1.0-4.8) Monocytes # (Auto) 2.1 x10^3/uL (0.0-1.1) Eosinophils # (Auto) 0.9 x10^3/uL (0.0-0.7) Basophils # (Auto) 0.2 x10^3/uL (0.0-0.2) Segmented Neutrophils % 71 % (35-66) Band Neutrophils % 4 % (0-9) Lymphocytes % 9 % (24-48) Monocytes % 10 % (0-10) Eosinophils % 6 % (0-5) Platelet Estimate Adequate (ADEQUATE) Polychromasia Slight Anisocytosis Slight Sodium Level 136 mmol/L (136-145) Potassium Level 4.5 mmol/L (3.5-5.1) Chloride Level 99 mmol/L (98-107) Carbon Dioxide Level 29 mmol/L (21-32) Anion Gap 8 (6-14) Blood Urea Nitrogen 33 mg/dL (8-26) Creatinine 6.0 mg/dL (0.7-1.3) Estimated GFR (Cockcroft-Gault) 9.8 Glucose Level 91 mg/dL (70-99) Calcium Level 8.2 mg/dL (8.5-10.1) Laboratory Tests Test 09/10/18 05:04 White Blood Count 18.5 x10^3/uL (4.0-11.0) Red Blood Count 2.87 x10^6/uL (4.30-5.70) Hemoglobin 7.9 g/dL (13.0-17.5) Hematocrit 25.1 % (39.0-53.0) Mean Corpuscular Volume 88 fL (79-100) Mean Corpuscular Hemoglobin 28 pg (25-35) Mean Corpuscular Hemoglobin Concent 31 g/dL (31-37) Red Cell Distribution Width 16.2 % (11.5-14.5) Platelet Count 323 x10^3/uL (140-400) Neutrophils (%) (Auto) 75 % (31-73) Lymphocytes (%) (Auto) 9 % (24-48) Monocytes (%) (Auto) 12 % (0-9) Eosinophils (%) (Auto) 5 % (0-3) Basophils (%) (Auto) 1 % (0-3) Neutrophils # (Auto) 13.8 x10^3uL (1.8-7.7) Lymphocytes # (Auto) 1.6 x10^3/uL (1.0-4.8) Monocytes # (Auto) 2.1 x10^3/uL (0.0-1.1) Eosinophils # (Auto) 0.9 x10^3/uL (0.0-0.7) Basophils # (Auto) 0.2 x10^3/uL (0.0-0.2) Segmented Neutrophils % 71 % (35-66) Band Neutrophils % 4 % (0-9) Lymphocytes % 9 % (24-48) Monocytes % 10 % (0-10) Eosinophils % 6 % (0-5) Platelet Estimate Adequate (ADEQUATE) Polychromasia Slight Anisocytosis Slight Sodium Level 136 mmol/L (136-145) Potassium Level 4.5 mmol/L (3.5-5.1) Chloride Level 99 mmol/L (98-107) Carbon Dioxide Level 29 mmol/L (21-32) Anion Gap 8 (6-14) Blood Urea Nitrogen 33 mg/dL (8-26) Creatinine 6.0 mg/dL (0.7-1.3) Estimated GFR (Cockcroft-Gault) 9.8 Glucose Level 91 mg/dL (70-99) Calcium Level 8.2 mg/dL (8.5-10.1) Microbiology 09/05/18 Blood Culture - Preliminary, Resulted NO GROWTH AFTER 4 DAYS Medications Current Medications Iohexol (Omnipaque 350 Mg/ml) 90 ml 1X ONCE IV Last administered on 09/05/18at 17:21; Start 09/05/18 at 17:15; Stop 09/05/18 at 17:16; Status DC Info (CONTRAST GIVEN -- Rx MONITORING) 1 each PRN DAILY PRN MC SEE COMMENTS; Start 09/05/18 at 17:15; Stop 09/07/18 at 17:14; Status DC Polysaccharide Iron Complex (Niferex 150) 150 mg [id number] PO Last administered on 09/10/18at 05:19; Start 09/05/18 at 21:00 Darbepoetin Napoleon (Aranesp) 60 mcg WEEKLYHS SQ ; Start 09/10/18 at 21:00; Status Cancel Pantoprazole Sodium (Protonix) 40 mg BIDAC PO Last administered on 09/05/18at 20 :57; Start 09/05/18 at 21:00; Stop 09/06/18 at 10:25; Status DC Vitamin B Complex/ Vitamin C (Massiel-Darrel) 1 tab DAILY PO Last administered on at 08:22; Start 09/06/18 at 09:00 Calcium Acetate (Phoslo) 667 mg TIDWMEALS PO Last administered on 09/09/18at 17: 22; Start 09/06/18 at 08:00 Piperacillin Sod/ Tazobactam Sod (Zosyn Per Pharmacy) 1 each PRN DAILY PRN MC SEE COMMENTS; Start 09/05/18 at 17:45 Piperacillin Sod/ Tazobactam Sod 2.25 gm/Sodium Chloride 50 ml @ 100 mls/hr 1X ONCE IV Last administered on 09/05/18at 18:17; Start 09/05/18 at 17:45; Stop 09/05/18 at 18:14; Status DC Fentanyl Citrate (Fentanyl 2ml Vial) 50 mcg 1X ONCE IV Last administered on at 18:13; Start 09/05/18 at 18:00; Stop 09/05/18 at 18:01; Status DC Piperacillin Sod/ Tazobactam Sod 2.25 gm/Sodium Chloride 50 ml @ 100 mls/hr Q8HRS IV Last administered on 09/10/18at 05:20; Start 09/06/18 at 00:00 Tramadol HCl (Ultram) 50 mg PRN Q6HRS PRN PO MODERATE PAIN Last administered on 09/09/18at 22:25; Start 09/06/18 at 01:30 Acetaminophen (Tylenol) 650 mg PRN Q6HRS PRN PO MILD PAIN Last administered on 09/08/18at 16:59; Start 09/06/18 at 01:30 Sodium Chloride 1,000 ml @ 1,000 mls/hr Q1H PRN IV hypotension; Start 09/06/18 at 08:09; Stop 09/06/18 at 14:08; Status DC Albumin Human 200 ml @ 200 mls/hr 1X PRN PRN IV Hypotension; Start 09/06/18 at 08:15; Stop 09/06/18 at 14:14; Status DC Acetaminophen (Tylenol) 500 mg 1X PRN PRN PO MILD PAIN / TEMP; Start 09/06/18 at 08:15; Stop 09/07/18 at 08:14; Status DC Diphenhydramine HCl (Benadryl) 25 mg 1X PRN PRN IV ITCHING; Start 09/06/18 at 08:15; Stop 09/07/18 at 08:14; Status DC Diphenhydramine HCl (Benadryl) 25 mg 1X PRN PRN IV ITCHING; Start 09/06/18 at 08:15; Stop 09/07/18 at 08:14; Status DC Sodium Chloride 1,000 ml @ 400 mls/hr Q2H30M PRN IV PATENCY; Start 09/06/18 at 08:09; Stop 09/06/18 at 20:08; Status DC Info (PHARMACY MONITORING -- do not chart) 1 each PRN DAILY PRN MC SEE COMMENTS ; Start 09/06/18 at 08:15 Metoprolol Succinate (Toprol Xl) 25 mg DAILY PO Last administered on 09/06/18at 14:00; Start 09/06/18 at 11:00; Stop 09/07/18 at 09:00; Status DC Pantoprazole Sodium (Protonix) 40 mg DAILYAC PO Last administered on 09/10/18at 05:19; Start 09/06/18 at 10:15 Fentanyl Citrate (Fentanyl 2ml Vial) 50 mcg 1X ONCE IV Last administered on at 11:54; Start 09/06/18 at 11:30; Stop 09/06/18 at 11:31; Status DC Darbepoetin Napoleon (Aranesp) 60 mcg WEEKLYHS SQ Last administered on 09/06/18at 20 :45; Start 09/06/18 at 21:00 Lactobacillus Rhamnosus (Culturelle) 1 cap BID PO Last administered on at 21:05; Start 09/06/18 at 21:00 Metoprolol Succinate (Toprol Xl) 50 mg DAILY PO Last administered on 09/10/18at 10:36; Start 09/07/18 at 09:00 Ondansetron HCl (Zofran) 4 mg PRN Q6HRS PRN IV NAUSEA/VOMITING; Start 09/10/18 at 07:00; Stop 09/10/18 at 18:00 Fentanyl Citrate (Fentanyl 2ml Vial) 25 mcg PRN Q5MIN PRN IV MILD PAIN; Start 09/10/18 at 07:00; Stop 09/10/18 at 18:00 Fentanyl Citrate (Fentanyl 2ml Vial) 50 mcg PRN Q5MIN PRN IV MODERATE TO SEVERE PAIN; Start 09/10/18 at 07:00; Stop 09/10/18 at 18:00 Morphine Sulfate (Morphine Sulfate) 1 mg PRN Q10MIN PRN IV SEVERE PAIN; Start 09/10/18 at 07:00; Stop 09/10/18 at 18:00 Ringer's Solution 1,000 ml @ 30 mls/hr Q24H IV ; Start 09/10/18 at 07:00; Stop 09/10/18 at 18:59 Lidocaine HCl (Xylocaine-Mpf 1% 2ml Vial) 2 ml PRN 1X PRN ID PRIOR TO IV START ; Start 09/10/18 at 07:00; Stop 09/10/18 at 18:00 Hydromorphone HCl (Dilaudid) 0.5 mg PRN Q10MIN PRN IV SEV PAIN, Second choice; Start 09/10/18 at 07:00; Stop 09/10/18 at 18:00 Prochlorperazine Edisylate (Compazine) 5 mg PACU PRN PRN IV NAUSEA, MRX1; Start 09/10/18 at 07:00; Stop 09/10/18 at 18:00 Sodium Chloride 1,000 ml @ 1,000 mls/hr Q1H PRN IV hypotension; Start 09/08/18 at 07:00; Stop 09/08/18 at 12:59; Status DC Sodium Chloride 1,000 ml @ 400 mls/hr Q2H30M PRN IV PATENCY; Start 09/08/18 at 07:00; Stop 09/08/18 at 18:59; Status DC Info (PHARMACY MONITORING -- do not chart) 1 each PRN DAILY PRN MC SEE COMMENTS ; Start 09/08/18 at 08:30; Status UNV Info (PHARMACY MONITORING -- do not chart) 1 each PRN DAILY PRN MC SEE COMMENTS ; Start 09/08/18 at 08:30; Status UNV Sodium Chloride 1,000 ml @ 1,000 mls/hr Q1H PRN IV hypotension; Start 09/10/18 at 07:00; Stop 09/10/18 at 15:00 Sodium Chloride 1,000 ml @ 400 mls/hr Q2H30M PRN IV PATENCY; Start 09/10/18 at 07:00; Stop 09/10/18 at 18:59 Info (PHARMACY MONITORING -- do not chart) 1 each PRN DAILY PRN MC SEE COMMENTS ; Start 09/10/18 at 08:00; Status UNV Info (PHARMACY MONITORING -- do not chart) 1 each PRN DAILY PRN MC SEE COMMENTS ; Start 09/10/18 at 08:00; Status UNV Cefazolin Sodium 1 gm/Sodium Chloride 500 ml @ 500 mls/hr 1X ONCE IRR ; Start 09/10/18 at 12:00; Stop 09/10/18 at 12:59 Active Scripts Active [Pantoprazole] 40 MG Tablet.dr 40 Mg PO BIDAC 30 Days [Darbepoetin Napoleon In Polysorbat] 60 MCG/0.3 ML Disp.syrin 60 Mcg SQ WEEKLYHS 7 Days Poly-Iron (Iron Polysaccharides Complex) 150 Mg Capsule 150 Mg PO BID66 30 Days Vitals/I & O Vital Sign - Last 24 Hours 09/09/18 09/09/18 09/09/18 09/09/18 15:00 19:00 19:05 22:25 Temp 97.9 98.0 97.9 98.0 Pulse 97 95 Resp 20 16 B/P (MAP) 119/72 (88) 108/73 (85) Pulse Ox 98 99 99 O2 Delivery Room Air Room Air Nasal Cannula O2 Flow Rate 2.0 09/09/18 09/09/18 09/10/18 09/10/18 23:05 23:25 03:12 07:00 Temp 97.6 98.4 98.8 97.6 98.4 98.8 Pulse 99 99 98 Resp 20 18 20 20 B/P (MAP) 128/99 (109) 128/69 (88) 126/63 (84) Pulse Ox 96 96 95 95 O2 Delivery Nasal Cannula Nasal Cannula Nasal Cannula Nasal Cannula O2 Flow Rate 2.0 09/10/18 09/10/18 07:45 10:36 Pulse 111 B/P (MAP) 126/63 O2 Delivery Room Air Intake and Output 09/09/18 09/09/18 09/10/18 15:00 23:00 07:00 Intake Total 300 ml 260 ml 290 ml Output Total 1400 ml Balance -1100 ml 260 ml 290 ml BRAEDEN ADDISON MD Sep 10, 2018 12:21
[2018-09-10] MEDS ORDERED: MIDAZOLAM HCL/PF 2 MG/2 ML VIAL. ONE ×2 (12:23→12:30)
[2018-09-10] MEDS ORDERED: PHENYLEPHRINE 10 MG/ML VIAL. ONE (12:30)
[2018-09-10] MEDS ORDERED: FAMOTIDINE 20 MG/2 ML VIAL ONE (12:30)
[2018-09-10] MEDS ORDERED: DEXAMETHASONE SOD PHOS 20 MG/5 ML VIAL. ONE (12:30)
[2018-09-10] MEDS ORDERED: ROCURONIUM 50 MG/5 ML VIAL. ONE (12:30)
[2018-09-10] MEDS ORDERED: ONDANSETRON PF 4 MG/2 ML VIAL. ONE (12:30)
[2018-09-10] MEDS ORDERED: LIDOCAINE 2% PF 5 ML VIAL. ONE (12:30)
[2018-09-10] MEDS ORDERED: ETOMIDATE 20 MG/10 ML VIAL. IV ONE (12:30)
[2018-09-10] MEDS ORDERED: fentaNYL PF VIAL 100 MCG/2 ML VIAL ONE ×2 (12:30→14:14)
[2018-09-10] MEDS ORDERED: MIDAZOLAM HCL/PF 2 MG/2 ML VIAL. IV ONE (12:45)
[2018-09-10] MEDS ORDERED: GLYCOPYRROLATE 1 MG/5 ML VIAL. ONE (13:40)
[2018-09-10] MEDS ORDERED: NEOSTIGMINE 10 MG/10 ML VIAL. ONE (13:40)
--- NOTE | 2018-09-10 13:52 | PDOC ---
BRIEF OPERATIVE NOTE Date: Sep 10, 2018 Pre-Op Diagnosis Pericardial effusion Cardiomyopathy ESRF on dialysis Post-Op Diagnosis Pericardial effusion Cardiomyopathy ESRF on dialysis Procedure Performed Subxiphoid pericardial window Surgeon Baldo Mcgee MD FACS [place] [facility] Anesthesiologist Dr Zamarripa Anesthesia Type: General Blood Loss <5 mls IV Fluid N/A Urine Output N/A Specimens Obtained Pericardium for pathology Pericardial fluid for microbiology and biochemistry and cytology Findings 400 mls of cloudy pericardial fluid Complications None BALDO MCGEE MD Sep 10, 2018 13:52
--- NOTE | 2018-09-10 13:54 | PDOC4 ---
Operative Note Operative Note Date Sep 10, 2018 Preoperative diagnosis Pericardial effusion Cardiomyopathy ESRF on dialysis Postoperative diagnosis Pericardial effusion Cardiomyopathy ESRF on dialysis Procedure Performed Subxiphoid pericardial window Surgeon Baldo Mcgee MD FACS Permit Agent [employer] [place] Anesthesiologist Dr Zamarripa Anesthesia type General Blood loss <5 mls IV fluids N/A Urine output N/A Specimens obtained Pericardium for pathology Pericardial fluid for microbiology and biochemistry and cytology Findings 400 mls of cloudy pericardial fluid Complications None Indication The patient was seen in the preoperative area where his ID was confirmed using 2 unique identifies. He was then transferred to the operating room and placed supine on the operating table. Anesthesia was induced by the anesthesiologist and the airway was secured with an ET tube. A radial arterial line was inserted. The anterior chest and upper abdomen were prepped and draped in the usual sterile surgical fashion. A timeout was then performed. A 5 cm vertical upper midline incision was made overlying the xiphoid process. The incision was deepened through the subcutaneous tissues. The xiphoid was dissected out and partially divided. The sternum was then lifted and the space anterior to the pericardial sac was developed with a kittner dissected. The anterior pericardium was identified. Some adipose tissue on the pericardial sac was resected. I then proceeded with making a 4 x 4 centimeter opening of the anterior pericardium. Pericardium was sent to pathology. I drained approximately 400 mls of cloudy fluid from the pericardial space. There was early formation of intrapericardial adhesions. The wound was irrigated with antibiotic solution and then closed using 2-0 Vicryl for the deep layers and subcutaneous tissues and 4-0 Monocryl for the epidermis. A sterile dressing was applied. At the end of procedure the instrument, sponge and needle counts were correct. Anesthesia was reversed, the patient was extubated and transferred to the PACU in stable condition having tolerated the procedure well. BALDO MCGEE MD Sep 10, 2018 13:54
[2018-09-10] MEDS ORDERED: SEVOFLURANE 61 TO 120 MINUTES. IH ONE (13:58)
[2018-09-10] MEDS: fentaNYL PF VIAL 100 MCG/2 ML VIAL IV PRN ×2 (14:27→14:33)
[2018-09-10] MEDS ORDERED: LORazepam 1 MG TABLET PO ONE (19:45)
--- NOTE | 2018-09-10 20:30 | NUR ---
Pt being verbally abusive to staff and trying to pull IV out and pull off tele monitor. Pt threatening to hit staff if we did not let him leave. Pt confused and states that he wants to go to the kitchen and get a pizza. Attempts to reorientate staff unsuccessful. J Carlos Forte called. Dr Huertas at bedside to see pt. New ativan orders given. Will continue to monitor.
[2018-09-10] MEDS ORDERED: DARBEPOETIN ALFA 60 MCG/0.3 ML DISP.SYRIN. SQ SCH (21:00)
[2018-09-10] MEDS: QUEtiapine 25 MG TABLET. PO SCH (22:00)
--- NOTE | 2018-09-10 22:30 | NUR ---
Pt again being threatening to staff. Trying to pull out catheter, IV, and LEONARDO drain. Pt trying to get around staff and to walk home. Reminded pt that he just had surgery today. Unable to reorientate pt. J Carlos Forte called. Notified Dr Huertas. New order for 1 to 1 given along with new med orders. Call light within reach. Bed alarm on. Will monitor.
[2018-09-10] MEDS ORDERED: HALOPERIDOL LACTATE 5 MG/ML VIAL. IVP ONE (23:00)
[2018-09-11] VITALS (8 sets, daily range): BP systolic 91–109; BP diastolic 49–64
[2018-09-11] MEDS: PIPERACILLIN/TAZOBACTAM 2.25 GM in IV NORMAL SALINE 50ML 50 ML IV SCH ×4 (01:18→23:00)
[2018-09-11] MEDS: IRON POLYSACCHARIDE COMPLEX 150 MG CAPSULE PO SCH ×2 (06:00→17:38)
[2018-09-11] MEDS ORDERED: IV NORMAL SALINE 1000ML BAG 1,000 ML IV PRN ×2 (07:06)
[2018-09-11] MEDS ORDERED: ALBUMIN HUMAN 25% 200 ML IV PRN (07:15)
[2018-09-11] MEDS ORDERED: DIALYSIS PATIENT. MC PRN ×2 (07:15)
[2018-09-11] MEDS: PANTOPRAZOLE 40 MG TABLET.DR. PO SCH (07:30)
[2018-09-11] MEDS: CALCIUM ACETATE 667 MG CAPSULE PO SCH ×3 (08:00→17:00)
[2018-09-11] MEDS: FOLIC/VIT B COMP W-C (RENAL) TABLET. PO SCH (09:00)
[2018-09-11] MEDS: LACTOBACILLUS RHAMNOSUS GG 1 CAPSULE. PO SCH ×2 (09:00→19:44)
--- NOTE | 2018-09-11 10:17 | PDOC ---
SUBJECTIVE ROS Altered MS last night /this am - agitated , verbally abusive as per floor RN Currently sleeping seen on HD, No complaints/Concerns s/p pericardial window 09/10 OBJECTIVE Vital Signs Vital Signs Date Time Temp Pulse Resp B/P (MAP) Pulse Ox O2 Delivery O2 Flow Rate FiO2 09/11/18 08:00 Nasal Cannula 2.0 09/11/18 06:41 97.8 86 21 91/49 (63) 98 97.8 I & 0 Intake and Output 09/11/18 07:00 Intake Total 930 ml Output Total 1565 ml Balance -635 ml Intake Oral 630 ml IV Total 300 ml Output Urine Total 1500 ml Drainage Total 65 ml PHYSICAL EXAM Physical Exam GEN: NAD HEENT- On RA NECK: Supple CVS: S1S2,RRR, drain post pericardial window RESP: No Acc. Muscle Use, CTA GI: BS + ve, NO Bruit, Non Tender, Non Distended : No CVA tenderness, No Suprapubic Tenderness Suprapubic Catheter+ Neuro- AXo X 3 Skin No Rash DIAGNOSIS/ASSESSMENT Assessment & Plan ESRD- On HD TTS at [facility] Etiology- Bilat Hydronephrosis Multiple Hospitalizations Seen on HD, tolerating well ,Continue as Ordered, madhu Molina Pericardial effusion without clinical tamponade s/p pericardial window 09/10 - drained approximately 400 mls of cloudy fluid from the pericardial space. Anemia- Multiple Hospitalizations Hgb has been as low as 2.9 Dx with GI bleed , On CLIFF Elevated WBC- as per primary CTA with and w/o Contrast 09/05- Moderate-sized pericardial effusion which has progressed since the prior study. Cardiac tamponade is possible. Bilateral pleural effusions. Moderate on the left which is unchanged. Small on the right which has improved. Mild improvement in bilateral spiculated lung nodules. Improvement of bilateral pulmonary edema since the previous study. Bilateral mucous plugs are evident within peripheral bronchi. COMMENT/RELEVANT DATA Meds Current Medications Medications (Trade) Dose Ordered Sig/Kevin Start Time Stop Time Status Last Admin Dose Admin Acetaminophen (Tylenol) 500 mg 1X PRN PRN 09/06/18 08:15 09/07/18 08:14 DC Albumin Human 200 ml @ 200 mls/hr 1X PRN PRN 09/11/18 07:15 09/11/18 13:14 Calcium Acetate (Phoslo) 667 mg TIDWMEALS 09/06/18 08:00 09/10/18 17:29 667 MG Cefazolin Sodium 1 gm/Sodium Chloride 500 ml @ 500 mls/hr 1X ONCE 09/10/18 12:00 09/10/18 12:59 DC 09/10/18 13:26 Darbepoetin Napoleon (Aranesp) 60 mcg WEEKLYHS 09/06/18 21:00 09/06/18 20:45 60 MCG Dexamethasone Sodium Phosphate (Decadron) 20 mg STK-MED ONCE 09/10/18 12:30 09/10/18 12:31 DC Diphenhydramine HCl (Benadryl) 25 mg 1X PRN PRN 09/06/18 08:15 09/07/18 08:14 DC Etomidate (Amidate) 20 mg STK-MED ONCE 09/10/18 12:30 09/10/18 12:31 DC Famotidine (Pepcid Vial) 20 mg STK-MED ONCE 09/10/18 12:30 09/10/18 12:31 DC Fentanyl Citrate (Fentanyl 2ml Vial) 100 mcg STK-MED ONCE 09/10/18 14:14 09/10/18 14:15 DC Glycopyrrolate (Robinul) 1 mg STK-MED ONCE 09/10/18 13:40 09/10/18 13:41 DC Haloperidol Lactate (Haldol Inj) 5 mg 1X ONCE 09/10/18 23:00 09/10/18 23:01 DC Hydromorphone HCl (Dilaudid) 0.5 mg PRN Q10MIN PRN 09/10/18 07:00 09/10/18 18:00 DC Info (CONTRAST GIVEN -- Rx MONITORING) 1 each PRN DAILY PRN 09/05/18 17:15 09/07/18 17:14 DC Info (PHARMACY MONITORING -- do not chart) 1 each PRN DAILY PRN 09/11/18 07:15 UNV Iohexol (Omnipaque 350 Mg/ml) 90 ml 1X ONCE 09/05/18 17:15 09/05/18 17:16 DC 09/05/18 17:21 90 ML Lactobacillus Rhamnosus (Culturelle) 1 cap BID 09/06/18 21:00 09/09/18 21:05 1 CAP Lidocaine HCl (Lidocaine Pf 2% Vial) 5 ml STK-MED ONCE 09/10/18 12:30 09/10/18 12:31 DC Lidocaine HCl (Xylocaine-Mpf 1% 2ml Vial) 2 ml PRN 1X PRN 09/10/18 07:00 09/10/18 18:00 DC Lorazepam (Ativan) 2 mg PRN Q4HRS PRN 09/10/18 22:30 09/11/18 00:33 2 MG Metoprolol Succinate (Toprol Xl) 25 mg DAILY 09/11/18 09:00 Midazolam HCl (Versed) 2 mg STK-MED ONCE 09/10/18 12:30 09/10/18 12:31 DC Morphine Sulfate (Morphine Sulfate) 1 mg PRN Q10MIN PRN 09/10/18 07:00 09/10/18 18:00 DC Neostigmine Methylsulfate (Bloxiverz) 10 mg STK-MED ONCE 09/10/18 13:40 09/10/18 13:41 DC Ondansetron HCl (Zofran) 4 mg STK-MED ONCE 09/10/18 12:30 09/10/18 12:31 DC Pantoprazole Sodium (Protonix) 40 mg DAILYAC 09/06/18 10:15 09/10/18 05:19 40 MG Phenylephrine HCl (Michael-Synephrine Inj) 10 mg STK-MED ONCE 09/10/18 12:30 09/10/18 12:31 DC Piperacillin Sod/ Tazobactam Sod (Zosyn Per Pharmacy) 1 each PRN DAILY PRN 09/05/18 17:45 Piperacillin Sod/ Tazobactam Sod 2.25 gm/Sodium Chloride 50 ml @ 100 mls/hr Q8HRS 09/06/18 00:00 09/11/18 06:06 100 MLS/HR Polysaccharide Iron Complex (Niferex 150) 150 mg BID66 09/05/18 21:00 09/10/18 17:27 150 MG Prochlorperazine Edisylate (Compazine) 5 mg PACU PRN PRN 09/10/18 07:00 09/10/18 18:00 DC Quetiapine Fumarate (SEROquel) 25 mg HS 2/18/19 21:00 09/10/18 22:00 25 MG Ringer's Solution 1,000 ml @ 30 mls/hr Q24H 09/10/18 07:00 09/10/18 18:59 DC Rocuronium [place] (Zemuron) 50 mg STK-MED ONCE 09/10/18 12:30 09/10/18 12:31 DC Sevoflurane (Ultane) 60 ml STK-MED ONCE 09/10/18 13:58 09/10/18 13:59 DC Sodium Chloride 1,000 ml @ 400 mls/hr Q2H30M PRN 09/11/18 07:06 09/11/18 19:05 Tramadol HCl (Ultram) 50 mg PRN Q6HRS PRN 09/06/18 01:30 09/09/18 22:25 50 MG Vitamin B Complex/ Vitamin C (Massiel-Darrel) 1 tab DAILY 09/06/18 09:00 09/09/18 08:22 1 TAB Results All relevant outside records, renal labs, imaging studies, telemetry/EKG's were reviewed. MARIYA NORMAN MD Sep 11, 2018 10:17
[2018-09-11] MEDS: METOPROLOL SUCC 24HR ER 25 MG TAB.ER.24H. PO SCH (13:11)
[2018-09-11] MEDS: traMADol 50 MG TABLET PO PRN (13:11)
[2018-09-11] MEDS: LORazepam 1 MG TABLET PO PRN ×2 (13:27→19:44)
--- NOTE | 2018-09-11 13:27 | PDOC ---
PROGRESS NOTES Chief Complaint Chief Complaint acute hypoxic respiratory failure at admit, improved Moderate ongoing bilateral pulmonary infiltrates and nodules ESRD on HD TTHS Anemia of ESRD Recent massive gI bleed s./p IR coiling - hgb 9.5 weakness small to mod pericardial effusion. Trops normal, pericardial effusion appears to be subacute in nature with fibrinous components. The effusion is mostly posteriorly layered. status post pericardial window on 09/10/2018 Acute on chronic systolic CHF Cardiomyopathy: EF 35% Concern for drug seeking behavior Erratic behavior at the end of dialysis History of Present Illness History of Present Illness Patient today very agitated and verbally abusive to the nursing staff towards the end of his dialysis session. J Carlos montero was called for the patient he did not percent neurological deficits he was able to ambulate to the bathroom with assistance. No other acute events reported overnight Vitals Vitals Vital Signs Date Time Temp Pulse Resp B/P (MAP) Pulse Ox O2 Delivery O2 Flow Rate FiO2 09/11/18 13:11 85 109/64 09/11/18 13:11 Room Air 09/11/18 08:00 2.0 09/11/18 06:41 97.8 21 98 97.8 Physical Exam General: mild distress Heart: Regular rate, No murmurs (muffled), Other (JVD) Lungs: Clear, Crackles Abdomen: Soft, No tenderness, No hepatosplenomegaly Extremities: No clubbing, No cyanosis Skin: No significant lesion Labs LABS Laboratory Tests Test 09/10/18 13:30 Body Fluid Glucose 77 mg/dL (.) Body Fluid Total Protein 4.0 g/dL (.) Body Fluid Albumin 1.4 g/dL (.) Body Fluid Lactate Dehydrogenase 1568 IU/L (.) Review of Systems Review of Systems unable to assess due to patient's agitated state Assessment and Plan Assessmemt and Plan Problems Medical Problems: (1) Dyspnea Status: Acute Comment Review of Relevant I have reviewed the following items allyson (where applicable) has been applied. Labs Laboratory Tests Test 09/10/18 05:04 09/10/18 13:30 White Blood Count 18.5 x10^3/uL (4.0-11.0) Red Blood Count 2.87 x10^6/uL (4.30-5.70) Hemoglobin 7.9 g/dL (13.0-17.5) Hematocrit 25.1 % (39.0-53.0) Mean Corpuscular Volume 88 fL (79-100) Mean Corpuscular Hemoglobin 28 pg (25-35) Mean Corpuscular Hemoglobin Concent 31 g/dL (31-37) Red Cell Distribution Width 16.2 % (11.5-14.5) Platelet Count 323 x10^3/uL (140-400) Neutrophils (%) (Auto) 75 % (31-73) Lymphocytes (%) (Auto) 9 % (24-48) Monocytes (%) (Auto) 12 % (0-9) Eosinophils (%) (Auto) 5 % (0-3) Basophils (%) (Auto) 1 % (0-3) Neutrophils # (Auto) 13.8 x10^3uL (1.8-7.7) Lymphocytes # (Auto) 1.6 x10^3/uL (1.0-4.8) Monocytes # (Auto) 2.1 x10^3/uL (0.0-1.1) Eosinophils # (Auto) 0.9 x10^3/uL (0.0-0.7) Basophils # (Auto) 0.2 x10^3/uL (0.0-0.2) Segmented Neutrophils % 71 % (35-66) Band Neutrophils % 4 % (0-9) Lymphocytes % 9 % (24-48) Monocytes % 10 % (0-10) Eosinophils % 6 % (0-5) Platelet Estimate Adequate (ADEQUATE) Polychromasia Slight Anisocytosis Slight Sodium Level 136 mmol/L (136-145) Potassium Level 4.5 mmol/L (3.5-5.1) Chloride Level 99 mmol/L (98-107) Carbon Dioxide Level 29 mmol/L (21-32) Anion Gap 8 (6-14) Blood Urea Nitrogen 33 mg/dL (8-26) Creatinine 6.0 mg/dL (0.7-1.3) Estimated GFR (Cockcroft-Gault) 9.8 Glucose Level 91 mg/dL (70-99) Calcium Level 8.2 mg/dL (8.5-10.1) Body Fluid Glucose 77 mg/dL (.) Body Fluid Total Protein 4.0 g/dL (.) Body Fluid Albumin 1.4 g/dL (.) Body Fluid Lactate Dehydrogenase 1568 IU/L (.) Laboratory Tests Test 09/10/18 13:30 Body Fluid Glucose 77 mg/dL (.) Body Fluid Total Protein 4.0 g/dL (.) Body Fluid Albumin 1.4 g/dL (.) Body Fluid Lactate Dehydrogenase 1568 IU/L (.) Microbiology 09/05/18 Blood Culture - Final, Complete NO GROWTH AFTER 5 DAYS Medications Current Medications Iohexol (Omnipaque 350 Mg/ml) 90 ml 1X ONCE IV Last administered on 09/05/18at 17:21; Start 09/05/18 at 17:15; Stop 09/05/18 at 17:16; Status DC Info (CONTRAST GIVEN -- Rx MONITORING) 1 each PRN DAILY PRN MC SEE COMMENTS; Start 09/05/18 at 17:15; Stop 09/07/18 at 17:14; Status DC Polysaccharide Iron Complex (Niferex 150) 150 mg BID66 PO Last administered on 09/10/18at 17:27; Start 09/05/18 at 21:00 Darbepoetin Napoleon (Aranesp) 60 mcg WEEKLYHS SQ ; Start 09/10/18 at 21:00; Status Cancel Pantoprazole Sodium (Protonix) 40 mg BIDAC PO Last administered on 09/05/18at 20 :57; Start 09/05/18 at 21:00; Stop 09/06/18 at 10:25; Status DC Vitamin B Complex/ Vitamin C (Massiel-Darrel) 1 tab DAILY PO Last administered on at 08:22; Start 09/06/18 at 09:00 Calcium Acetate (Phoslo) 667 mg TIDWMEALS PO Last administered on 09/11/18at 13: 10; Start 09/06/18 at 08:00 Piperacillin Sod/ Tazobactam Sod (Zosyn Per Pharmacy) 1 each PRN DAILY PRN MC SEE COMMENTS; Start 09/05/18 at 17:45 Piperacillin Sod/ Tazobactam Sod 2.25 gm/Sodium Chloride 50 ml @ 100 mls/hr 1X ONCE IV Last administered on 09/05/18at 18:17; Start 09/05/18 at 17:45; Stop 09/05/18 at 18:14; Status DC Fentanyl Citrate (Fentanyl 2ml Vial) 50 mcg 1X ONCE IV Last administered on at 18:13; Start 09/05/18 at 18:00; Stop 09/05/18 at 18:01; Status DC Piperacillin Sod/ Tazobactam Sod 2.25 gm/Sodium Chloride 50 ml @ 100 mls/hr Q8HRS IV Last administered on 09/11/18at 13:11; Start 09/06/18 at 00:00 Tramadol HCl (Ultram) 50 mg PRN Q6HRS PRN PO MODERATE PAIN Last administered on 09/11/18at 13:11; Start 09/06/18 at 01:30 Acetaminophen (Tylenol) 650 mg PRN Q6HRS PRN PO MILD PAIN Last administered on 09/08/18at 16:59; Start 09/06/18 at 01:30 Sodium Chloride 1,000 ml @ 1,000 mls/hr Q1H PRN IV hypotension; Start 09/06/18 at 08:09; Stop 09/06/18 at 14:08; Status DC Albumin Human 200 ml @ 200 mls/hr 1X PRN PRN IV Hypotension; Start 09/06/18 at 08:15; Stop 09/06/18 at 14:14; Status DC Acetaminophen (Tylenol) 500 mg 1X PRN PRN PO MILD PAIN / TEMP; Start 09/06/18 at 08:15; Stop 09/07/18 at 08:14; Status DC Diphenhydramine HCl (Benadryl) 25 mg 1X PRN PRN IV ITCHING; Start 09/06/18 at 08:15; Stop 09/07/18 at 08:14; Status DC Diphenhydramine HCl (Benadryl) 25 mg 1X PRN PRN IV ITCHING; Start 09/06/18 at 08:15; Stop 09/07/18 at 08:14; Status DC Sodium Chloride 1,000 ml @ 400 mls/hr Q2H30M PRN IV PATENCY; Start 09/06/18 at 08:09; Stop 09/06/18 at 20:08; Status DC Info (PHARMACY MONITORING -- do not chart) 1 each PRN DAILY PRN MC SEE COMMENTS ; Start 09/06/18 at 08:15 Metoprolol Succinate (Toprol Xl) 25 mg DAILY PO Last administered on 09/06/18at 14:00; Start 09/06/18 at 11:00; Stop 09/07/18 at 09:00; Status DC Pantoprazole Sodium (Protonix) 40 mg DAILYAC PO Last administered on 09/10/18at 05:19; Start 09/06/18 at 10:15 Fentanyl Citrate (Fentanyl 2ml Vial) 50 mcg 1X ONCE IV Last administered on at 11:54; Start 09/06/18 at 11:30; Stop 09/06/18 at 11:31; Status DC Darbepoetin Napoleon (Aranesp) 60 mcg WEEKLYHS SQ Last administered on 09/06/18at 20 :45; Start 09/06/18 at 21:00 Lactobacillus Rhamnosus (Culturelle) 1 cap BID PO Last administered on at 21:05; Start 09/06/18 at 21:00 Metoprolol Succinate (Toprol Xl) 50 mg DAILY PO Last administered on 09/10/18at 10:36; Start 09/07/18 at 09:00; Stop 09/11/18 at 08:06; Status DC Ondansetron HCl (Zofran) 4 mg PRN Q6HRS PRN IV NAUSEA/VOMITING; Start 09/10/18 at 07:00; Stop 09/10/18 at 18:00; Status DC Fentanyl Citrate (Fentanyl 2ml Vial) 25 mcg PRN Q5MIN PRN IV MILD PAIN; Start 09/10/18 at 07:00; Stop 09/10/18 at 18:00; Status DC Fentanyl Citrate (Fentanyl 2ml Vial) 50 mcg PRN Q5MIN PRN IV MODERATE TO SEVERE PAIN Last administered on 09/10/18at 14:33; Start 09/10/18 at 07:00; Stop 09/10/18 at 18:00; Status DC Morphine Sulfate (Morphine Sulfate) 1 mg PRN Q10MIN PRN IV SEVERE PAIN; Start 09/10/18 at 07:00; Stop 09/10/18 at 18:00; Status DC Ringer's Solution 1,000 ml @ 30 mls/hr Q24H IV ; Start 09/10/18 at 07:00; Stop 09/10/18 at 18:59; Status DC Lidocaine HCl (Xylocaine-Mpf 1% 2ml Vial) 2 ml PRN 1X PRN ID PRIOR TO IV START ; Start 09/10/18 at 07:00; Stop 09/10/18 at 18:00; Status DC Hydromorphone HCl (Dilaudid) 0.5 mg PRN Q10MIN PRN IV SEV PAIN, Second choice; Start 09/10/18 at 07:00; Stop 09/10/18 at 18:00; Status DC Prochlorperazine Edisylate (Compazine) 5 mg PACU PRN PRN IV NAUSEA, MRX1; Start 09/10/18 at 07:00; Stop 09/10/18 at 18:00; Status DC Sodium Chloride 1,000 ml @ 1,000 mls/hr Q1H PRN IV hypotension; Start 09/08/18 at 07:00; Stop 09/08/18 at 12:59; Status DC Sodium Chloride 1,000 ml @ 400 mls/hr Q2H30M PRN IV PATENCY; Start 09/08/18 at 07:00; Stop 09/08/18 at 18:59; Status DC Info (PHARMACY MONITORING -- do not chart) 1 each PRN DAILY PRN MC SEE COMMENTS ; Start 09/08/18 at 08:30; Status UNV Info (PHARMACY MONITORING -- do not chart) 1 each PRN DAILY PRN MC SEE COMMENTS ; Start 09/08/18 at 08:30; Status UNV Sodium Chloride 1,000 ml @ 1,000 mls/hr Q1H PRN IV hypotension; Start 09/10/18 at 07:00; Stop 09/10/18 at 15:00; Status DC Sodium Chloride 1,000 ml @ 400 mls/hr Q2H30M PRN IV PATENCY; Start 09/10/18 at 07:00; Stop 09/10/18 at 18:59; Status DC Info (PHARMACY MONITORING -- do not chart) 1 each PRN DAILY PRN MC SEE COMMENTS ; Start 09/10/18 at 08:00; Status UNV Info (PHARMACY MONITORING -- do not chart) 1 each PRN DAILY PRN MC SEE COMMENTS ; Start 09/10/18 at 08:00; Status UNV Cefazolin Sodium 1 gm/Sodium Chloride 500 ml @ 500 mls/hr 1X ONCE IRR Last administered on 09/10/18at 13:26; Start 09/10/18 at 12:00; Stop 09/10/18 at 12:59 ; Status DC Midazolam HCl (Versed) 2 mg STK-MED ONCE .ROUTE ; Start 09/10/18 at 12:23; Stop 09/10/18 at 12:24; Status DC Midazolam HCl (Versed) 2 mg 1X ONCE IV ; Start 09/10/18 at 12:45; Stop at 12:46; Status DC Dexamethasone Sodium Phosphate (Decadron) 20 mg STK-MED ONCE .ROUTE ; Start at 12:30; Stop 09/10/18 at 12:31; Status DC Lidocaine HCl (Lidocaine Pf 2% Vial) 5 ml STK-MED ONCE .ROUTE ; Start 09/10/18 at 12:30; Stop 09/10/18 at 12:31; Status DC Etomidate (Amidate) 20 mg STK-MED ONCE IV ; Start 09/10/18 at 12:30; Stop at 12:31; Status DC Famotidine (Pepcid Vial) 20 mg STK-MED ONCE .ROUTE ; Start 09/10/18 at 12:30; Stop 09/10/18 at 12:31; Status DC Ondansetron HCl (Zofran) 4 mg STK-MED ONCE .ROUTE ; Start 09/10/18 at 12:30; Stop 09/10/18 at 12:31; Status DC Phenylephrine HCl (Michael-Synephrine Inj) 10 mg STK-MED ONCE .ROUTE ; Start at 12:30; Stop 09/10/18 at 12:31; Status DC Rocuronium [place] (Zemuron) 50 mg STK-MED ONCE .ROUTE ; Start 09/10/18 at 12:30 ; Stop 09/10/18 at 12:31; Status DC Fentanyl Citrate (Fentanyl 2ml Vial) 100 mcg STK-MED ONCE .ROUTE ; Start at 12:30; Stop 09/10/18 at 12:31; Status DC Midazolam HCl (Versed) 2 mg STK-MED ONCE .ROUTE ; Start 09/10/18 at 12:30; Stop 09/10/18 at 12:31; Status DC Neostigmine Methylsulfate (Bloxiverz) 10 mg STK-MED ONCE .ROUTE ; Start at 13:40; Stop 09/10/18 at 13:41; Status DC Glycopyrrolate (Robinul) 1 mg STK-MED ONCE .ROUTE ; Start 09/10/18 at 13:40; Stop 09/10/18 at 13:41; Status DC Sevoflurane (Ultane) 60 ml STK-MED ONCE IH ; Start 09/10/18 at 13:58; Stop 09/10 at 13:59; Status DC Fentanyl Citrate (Fentanyl 2ml Vial) 100 mcg STK-MED ONCE .ROUTE ; Start at 14:14; Stop 09/10/18 at 14:15; Status DC Lorazepam (Ativan) 2 mg 1X ONCE PO Last administered on 09/10/18at 22:00; Start 09/10/18 at 19:45; Stop 09/10/18 at 19:49; Status DC Lorazepam (Ativan) 1 mg PRN Q6HRS PRN PO ANXIETY / AGITATION; Start 09/10/18 at 19:45 Quetiapine Fumarate (SEROquel) 25 mg HS PO Last administered on 09/10/18at 22:00 ; Start 09/10/18 at 21:00 Lorazepam (Ativan) 2 mg PRN Q4HRS PRN IV ANXIETY / AGITATION Last administered on 09/11/18at 00:33; Start 09/10/18 at 22:30 Haloperidol Lactate (Haldol Inj) 5 mg 1X ONCE IVP ; Start 09/10/18 at 23:00; Stop 09/10/18 at 23:01; Status DC Sodium Chloride 1,000 ml @ 1,000 mls/hr Q1H PRN IV hypotension; Start 09/11/18 at 07:06; Stop 09/11/18 at 13:05; Status DC Albumin Human 200 ml @ 200 mls/hr 1X PRN PRN IV Hypotension; Start 09/11/18 at 07:15; Stop 09/11/18 at 13:14; Status DC Sodium Chloride 1,000 ml @ 400 mls/hr Q2H30M PRN IV PATENCY; Start 09/11/18 at 07:06; Stop 09/11/18 at 19:05 Info (PHARMACY MONITORING -- do not chart) 1 each PRN DAILY PRN MC SEE COMMENTS ; Start 09/11/18 at 07:15; Status UNV Info (PHARMACY MONITORING -- do not chart) 1 each PRN DAILY PRN MC SEE COMMENTS ; Start 09/11/18 at 07:15; Status UNV Metoprolol Succinate (Toprol Xl) 25 mg DAILY PO Last administered on 09/11/18at 13:11; Start 09/11/18 at 09:00 Active Scripts Active [Pantoprazole] 40 MG Tablet.dr 40 Mg PO BIDAC 30 Days [Darbepoetin Napoleon In Polysorbat] 60 MCG/0.3 ML Disp.syrin 60 Mcg SQ WEEKLYHS 7 Days Poly-Iron (Iron Polysaccharides Complex) 150 Mg Capsule 150 Mg PO BID66 30 Days Vitals/I & O Vital Sign - Last 24 Hours 09/10/18 09/10/18 09/10/18 09/10/18 14:05 14:05 14:20 14:27 Temp 99.9 99.9 99.9 99.9 Pulse 109 109 Resp 15 16 16 B/P (MAP) 104/42 105/46 Pulse Ox 95 95 95 O2 Delivery Nasal Cannula Mask Simple Mask O2 Flow Rate 2.0 10 10 10.0 09/10/18 09/10/18 09/10/18 09/10/18 14:33 14:35 14:50 15:05 Temp 99.9 99.9 99.9 99.9 99.9 99.9 Pulse 112 112 110 Resp 16 16 16 16 B/P (MAP) 96/48 92/51 92/44 Pulse Ox 95 95 95 95 O2 Delivery Simple Mask Nasal Cannula Nasal Cannula Nasal Cannula O2 Flow Rate 10.0 2 2 2 09/10/18 09/10/18 09/10/18 09/10/18 16:00 16:00 16:15 16:30 Temp 100.2 98.9 100.2 98.9 Pulse 102 112 99 103 Resp 20 B/P (MAP) 99/53 (68) 99/62 (74) 102/62 (75) 103/60 (74) Pulse Ox 91 O2 Delivery Nasal Cannula O2 Flow Rate 2.5 09/10/18 09/10/18 09/10/18 09/10/18 16:30 16:45 17:15 17:45 Pulse 100 102 100 B/P (MAP) 99/58 (72) 102/56 (71) 110/60 (77) O2 Delivery Nasal Cannula O2 Flow Rate 2.0 2/1809/10/18 09/10/18 09/10/18 18:45 19:19 20:00 22:41 Temp 100.0 100.0 Pulse 98 110 100 B/P (MAP) 108/62 (77) 103/62 (76) 115/67 (83) Pulse Ox 93 O2 Delivery Nasal Cannula Nasal Cannula O2 Flow Rate 2.5 2.0 09/10/18 09/11/18 09/11/18 09/11/18 23:15 01:00 02:50 05:00 Temp 98.1 98.1 Pulse 100 94 88 88 Resp 20 20 20 18 B/P (MAP) 102/66 (78) 92/53 (66) 102/61 (75) 97/62 (74) Pulse Ox 85 90 96 98 O2 Delivery Room Air Nasal Cannula Nasal Cannula Nasal Cannula O2 Flow Rate 2.0 3.0 2.0 09/11/18 09/11/18 09/11/18 09/11/18 06:41 08:00 13:11 13:11 Temp 97.8 97.8 Pulse 86 85 Resp 21 B/P (MAP) 91/49 (63) 109/64 Pulse Ox 98 O2 Delivery Nasal Cannula Nasal Cannula Room Air O2 Flow Rate 2.0 2.0 Intake and Output 09/10/18 09/10/18 09/11/18 15:00 23:00 07:00 Intake Total 300 ml 400 ml 230 ml Output Total 1400 ml 30 ml 135 ml Balance -1100 ml 370 ml 95 ml JAIR BARRERA MD Sep 11, 2018 13:27
--- NOTE | 2018-09-11 13:46 | PDOC ---
SANJEEV PASTOR RECYCLING ATTENDANT 09/11/18 1346: CARDIO Progress Notes Date and Time Date of Service 09/11/2018 Time of Evaluation 1320 Subjective Subjective: No Chest Pain, No shortness of breath, No Palpitations Vitals Vitals Vital Signs Date Time Temp Pulse Resp B/P (MAP) Pulse Ox O2 Delivery O2 Flow Rate FiO2 09/11/18 13:11 110 109/64 09/11/18 13:11 Room Air 09/11/18 12:00 20 09/11/18 08:00 2.0 09/11/18 06:41 97.8 98 97.8 Weight Weight [ ] Input and Output Intake and Output Intake and Output 09/11/18 07:00 Intake Total 930 ml Output Total 1565 ml Balance -635 ml Intake Oral 630 ml IV Total 300 ml Output Urine Total 1500 ml Drainage Total 65 ml Microbiology Micro Microbiology 09/05/18 Blood Culture - Final, Complete NO GROWTH AFTER 5 DAYS Review of Systems Constitutional: yes: alert, oriented Ears/Nose/Throat: Yes: no symptom reported Eyes: Yes: no symptom reported Pulmonary: Yes dyspnea Cardiovascular: Yes no symptom reported Gastrointestional: Yes: no symptom reported Genitourinary: Yes: no symptom reported Musculoskeletal: Yes: no symptom reported Skin: Yes no symptom reported Psychiatric/Neurological: Yes: no symptom reported Endocrine: Yes: no symptom reported Physical Exam HEENT: Neck Supple W Full Motion Chest: Symmetric LUNGS: Other (basilar crackles) Heart: S1S2, RRR (SR/ST) Abdomen: Soft N/T Extremities: No Calf Tenderness Neurology: alert, oriented, follow commands, other (periods of confusion) Other Exams pericardial LEONARDO with serosanguineous drain small amt. Assessment Assessment 1. Dyspnea: with CHF and pericardial effusion. Better S/P pericardial window POD#1 2. Acute on chronic diastolic/systolic CHF: appears compensated 3. ESRD 4. Hx of GI bleed: known for polyp and DU with recent embolization 08/21/2018 5. Cardiomyopathy: EF now at 35% from 55% 6. Hypothyroidism: TSH 11 per PCP 7. Reactive sinus tach: improved 8. Hx of COPD: O2 sat 88% on RA, continue with O2 supplementation 9. Anemia: Hgb down at 7.9 today. per PCP 10. Low grade Fever/Leukocytosis with encephalopathy: agitated episodes, has been receiving ativan. Per PCP Recommendations 1. Continue post pericardial window protocol per CTS 2. Fluid off loading per HD. Missed this AM, Continue with toprol. Consider future ACEi/ARB. Monitor Hgb trend. 3. Outpt MPI 4. Supportive care. 5. Rapid flu, CXR MARIANN TIRADO MD 09/11/18 1700: CARDIO Progress Notes Plan Plan Pt. seen and examined. Agree with above [employer] note. Patient is somnolent from ativan. CXR is suggestive of HF/PNA Will await pulmonary evaluation. He still appears volume overloaded. Continue fluid removal via HD. May need repeat CT chest. ? need for thoracentesis. ABG noted. SANJEEV PASTOR APRN Sep 11, 2018 13:46 MARIANN TIRADO MD Sep 11, 2018 17:00
--- NOTE | 2018-09-11 14:10 | NUR ---
SW following. Discussed with RN, RN advised no SW needs at this time. Pt is currently on 1:1. SW will continue to follow.
[2018-09-11 16:09] LABS: INFLUENZA A PATIENT NEGATIVE (NEGATIVE); INFLUENZA B PATIENT NEGATIVE (NEGATIVE)
--- NOTE | 2018-09-11 16:09 | PDOC ---
Progress Note Subjective Subjective Doing OK. Still requires some O2. Normotensive. Minimal serosanguinous LEONARDO output. ROS ROS No nausea No vomiting No pain No rash Vital Sign Vital Signs Vital Signs Date Time Temp Pulse Resp B/P (MAP) Pulse Ox O2 Delivery O2 Flow Rate FiO2 09/11/18 15:55 101 103/59 (74) 98 Nasal Cannula 2.0 09/11/18 15:00 99.7 18 99.7 Physical Exam PHYSICAL EXAM GENERAL: NAD, Alert HEENT: PERRL, OC/OP NECK: Supple, no JVD, no LN LUNGS: Clear HEART: S1S2, no gallop, no murmur ABD: Soft, NT, no organomegaly, no rebound EXT: No edema, no cyanosis APPLICATIONS ARCHITECT: Alert, oriented x 3, no focal neurologic deficit SKIN: No rash IV: ok Objective Assessment POD#1, s/p subxiphoid pericardial window. Doing OK. Minimal LEONARDO output. Plan Plan of Care Will d/c LEONARDO tomorrow Limited ECHO tomorrow BALDO CORTEZ MD Sep 11, 2018 16:09
--- NOTE | 2018-09-11 16:10 | RAD ---
Portable chest, 09/11/2018: HISTORY: Hypoxia Comparison is made to a study from 09/05/2018. A right jugular dialysis type catheter extends into the superior aspect of the right atrium. The heart is enlarged. The recent CT study showed that a pericardial effusion is contributing to the size of the cardiac silhouette. There are moderate patchy bilateral pulmonary infiltrates which are unchanged. There is pleural thickening inferolaterally, right greater than left which is unchanged and is compatible with pleural fluid. There is no evidence of pneumothorax. No new abnormality is detected. IMPRESSION: No significant change since 09/05/2018. Electronically signed by: Jt Reyes MD (09/11/2018 4:07 PM) [facility]
[2018-09-11 16:14] LABS: BASE EXCESS ABG 3 mmol/L (-3-3); HCO3 ABG 28 mmol/L (21-28); PCO2 ABG 42 mmHg (35-46); PO2 ABG 96 mmHg (75-108); SAT O2 ABG 97 % (92-99)
--- NOTE | 2018-09-11 17:08 | PATHOLOGY ---
[facility] Accession Number: [id number] . 01 Material submitted: . PERICARDIAL TISSUE . 01 Clinical history: . ESRD related pericardial effusion Status post pericardial window . 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 LBQ/09/11/2018 . 02 Comment: Sections of the pericardial window show a thickened pericardium with organizing fibrin, fibrosis, and mild acute and chronic inflammation. There is no evidence of malignancy. (JPM/db; 09/11/2018) . 02 Electronically signed: . Dominik Perera MD, Pathologist NPI- [id number] . 01 Gross description: . The specimen is received in formalin, labeled "Oleg Dowling, pericardial tissue is a montero-white fibrous tissue measuring 1.8 x 1.0 x 0.2 cm, trisected along the long axis and entirely submitted in A1 ([facility]; 09/10/2018) [facility] . 02 Pathologist provided ICD-10: I31.9 . 02 CPT . 735792 Specimen Comment: A courtesy copy of this report has been sent to Specimen Comment: [phone], , . Specimen Comment: Report sent to ,DR ROSARIO / DR AGUILAR Specimen Comment: A duplicate report has been generated due to demographic updates. Performed at: 01 [facility] [address], [place] [id number] MD Torres Coello MD Phone: [phone] Performed at: 02 [facility] [address], [place] [id number] MD Dominik Perera MD Phone: [phone]
[2018-09-11] MEDS: QUEtiapine 25 MG TABLET. PO SCH (19:44)
[2018-09-11] MEDS ORDERED: HALOPERIDOL LACTATE 5 MG/ML VIAL. IVP PRN (22:00)
[2018-09-12] VITALS (11 sets, daily range): BP systolic 91–142; BP diastolic 49–89
[2018-09-12] MEDS: PIPERACILLIN/TAZOBACTAM 2.25 GM in IV NORMAL SALINE 50ML 50 ML IV SCH ×3 (05:18→22:03)
[2018-09-12] MEDS: IRON POLYSACCHARIDE COMPLEX 150 MG CAPSULE PO SCH ×2 (05:25→18:00)
[2018-09-12] MEDS: PANTOPRAZOLE 40 MG TABLET.DR. PO SCH (07:30)
[2018-09-12] MEDS: CALCIUM ACETATE 667 MG CAPSULE PO SCH ×3 (08:00→17:00)
--- NOTE | 2018-09-12 08:46 | NUR ---
7A Somnolent, does not awaken w am assessment. HR regular w/o pericardial friction rub. Remains 1:1 w sitter present. Call form Dr Helton checking on ordered 0[address] Ct of chest. Repeat call to transportation at this time.
[2018-09-12] MEDS: LACTOBACILLUS RHAMNOSUS GG 1 CAPSULE. PO SCH ×2 (09:00→19:59)
[2018-09-12] MEDS: METOPROLOL SUCC 24HR ER 25 MG TAB.ER.24H. PO SCH (09:00)
[2018-09-12] MEDS: FOLIC/VIT B COMP W-C (RENAL) TABLET. PO SCH (09:00)
--- NOTE | 2018-09-12 09:39 | CONS ---
DATE OF CONSULTATION: ATTENDING PHYSICIAN: Dr. Gómez. REASON FOR CONSULTATION: Pneumonia versus pleural effusion, dyspnea, hypoxia. HISTORY OF PRESENT ILLNESS: The patient is very well known to me from his previous hospitalization. He has extensive medical history. He developed acute hypoxic respiratory failure during his previous admission due to multifactorial etiology including anemia, congestive heart failure, COPD. He was also found to have staph bacteremia and previously had cavitary nodules suspicious for septic emboli. During his last admission, his CTA done showed small pulmonary embolism involving the left lower lobe. However, because of his ongoing anemia, the pulmonary embolism was not treated and the risk of treatment outweighed the benefits. He also had hemoperitoneum on this pelvis at that time. The patient did not have any IVC filter as he did not have DVT. He was hospitalized recently with increasing dyspnea with low energy. He was worried that his hemoglobin may be low. His albumin was 1.6. His proBNP was markedly elevated and his creatinine was 5.5. He is on dialysis. The patient underwent CTA chest, which was reviewed by me, performed on 09/05/2018. There was no evidence of pulmonary embolism. The previously seen emboli had resolved. There was moderate-sized pericardial effusion, which had progressed. Tamponade was a consideration. There were bilateral pleural effusions, moderate on the left and appeared to be loculated. There was improvement in the bilateral spiculated lung nodules and improvement in pulmonary edema. The patient was seen by Thoracic Surgery and underwent pericardial window. He had a fibrinous exudative type pericardial effusion. His chest x-ray has shown persistent opacities. The concern was whether it was related to an infectious etiology or not. As a result, I have been asked to see him for further evaluation for possibility of persistent pneumonia. The patient was having low-grade fever. His T-max was 99.7 last evening and he has been afebrile today. I have been asked to see him for further evaluation. I ordered another CT chest, which has been reviewed by me this morning. It has not been read yet. There is persistent loculated left-sided pleural effusion. The pericardial effusion has improved. There is also a small left lower lobe pleural effusion and minimal right lower lobe pleural effusion. There is evidence of mild vascular congestion. I am unable to obtain much history from the patient as he has been receiving Ativan p.r.n. for his agitation and I asked all the questions from the nurses. PAST MEDICAL HISTORY: Extensive including history of staph bacteremia and sepsis, has history of suspected septic cavitary nodules which has improved. History of recently declined ejection fraction with cardiomyopathy with an EF of 35%. History of pericardial effusion, status post window. History of chronic renal failure, on dialysis. History of chronic obstructive pulmonary disease. History of anemia. History of coiling done. History of pulmonary embolism, which resolved during recent CTA. PAST SURGICAL HISTORY: Status post coiling for massive GI bleed and pericardial window. FAMILY HISTORY: Coronary artery disease and hypertension. SOCIAL HISTORY: History of tobacco use in the past. ALLERGIES: None. CURRENT MEDICATIONS: Reviewed. As listed in the MRAD including antibiotic, Zosyn. REVIEW OF SYSTEMS: Unable to obtain from the patient. PHYSICAL EXAMINATION: GENERAL: He is in no obvious respiratory distress, but he does not follow any commands, as has been receiving Ativan. VITAL SIGNS: Blood pressure 91/51, afebrile today, pulse ox 99% on 2 liters. NECK: Supple. LUNGS: Diminished breath sounds posteriorly. CARDIOVASCULAR: Regular rate. ABDOMEN: Soft. EXTREMITIES: With no pitting edema. LABORATORY DATA: Reviewed. White cell count 18.5 two days ago, hemoglobin 7.9 and platelets are 323. ABGs with a pH of 7.44, pCO2 of 42 and a pO2 of 96. BUN 33 and a creatinine of 6.0. Albumin is 1.5. IMPRESSION: 1. Acute recurrent hypoxic respiratory failure secondary to multifactorial etiologies including recent subacute pericardial effusion with early tamponade physiology, underlying chronic obstructive pulmonary disease, anemia, bilateral pleural effusions more loculated on the left and encephalopathy. Currently on 2 liters of oxygen. 2. Abnormal CT chest with persistent loculated left-sided pleural effusion. Infectious etiology less likely, but cannot be ruled out and would benefit from a drain. 3. Moderate to large pericardial effusion, status post pericardial window. 4. History of small pulmonary embolism last month, which subsequently resolved. He was not treated as at that time he was having severe anemia and gastrointestinal bleed. No history of inferior vena cava filter. 5. End-stage renal disease, on hemodialysis. 6. Underlying chronic obstructive pulmonary disease. 7. Low-grade fever, which has responded to current antibiotic. 8. H/O Cavitary nodules, likely related to staph infection, overall improved. RECOMMENDATIONS: 1. From a pulmonary standpoint, he seems to be compensated. His chest x-ray/ ct chest mostly shows loculated left effusion and a small right pleural thickening and effusion. There is also a small left lower lobe loculated organized effusion. The effusion appears to be transudative in the setting of recent cardiomyopathy, however, possibility of an infectious etiology needs to be ruled out and he would benefit from a CT-guided drainage. 2. Continue to monitor pericardial drain per Thoracic Surgery. 3. Continue present oxygen. 4. Continue antibiotic Zosyn. 5. Follow all cultures including pericardium cultures. 6. Follow ID recommendation. 7. Follow Cardiology recommendation regarding recent decline in his ejection fraction of 30%. 8. Discussed with RN. We will follow along with you. RUDI DAVALOS MD DR: RAUDEL/macey JOB#: [id number] / [id number] RIDDHI
--- NOTE | 2018-09-12 09:44 | PDOC ---
CARDIO Progress Notes Date and Time Date of Service 09/12/2018 Time of Evaluation 1015 Subjective Subjective: Other (somnolent ) Vitals Vitals Vital Signs Date Time Temp Pulse Resp B/P (MAP) Pulse Ox O2 Delivery O2 Flow Rate FiO2 09/12/18 07:00 97.9 89 18 91/51 (64) 99 Nasal Cannula 2.0 97.9 Weight Weight [ ] Input and Output Intake and Output Intake and Output 09/12/18 07:00 Intake Total 710 ml Output Total 130 ml Balance 580 ml Intake Oral 660 ml IV Total 50 ml Output Urine Total 100 ml Drainage Total 30 ml Laboratory Labs Laboratory Tests Test 09/11/18 15:00 09/11/18 16:00 Influenza Type A Antigen Negative (NEGATIVE) Influenza Type B Antigen Negative (NEGATIVE) O2 Saturation 97 % (92-99) Arterial Blood pH 7.44 (7.35-7.45) Arterial Blood pCO2 at Patient Temp 42 mmHg (35-46) Arterial Blood pO2 at Patient Temp 96 mmHg (75-108) Arterial Blood HCO3 28 mmol/L (21-28) Arterial Blood Base Excess 3 mmol/L (-3-3) FiO2 2 lpm pa Microbiology Micro Microbiology 09/05/18 Blood Culture - Final, Complete NO GROWTH AFTER 5 DAYS 09/10/18 Anaerobic/Aerobic Culture, Resulted Pending 09/10/18 Anaerobic Culture Result 1 (NATHAN), Resulted Pending 09/10/18 Aerobic Culture, Resulted Pending 09/10/18 Aerobic Culture Result 1 (NATHAN), Resulted Pending 09/10/18 Gram Stain - Final, Resulted 09/10/18 Gram Stain Result 1 (NATHAN) - Final, Resulted 09/10/18 Gram Stain Result 2 (NATHAN) - Final, Resulted Review of Systems Constitutional: yes: alert, oriented Ears/Nose/Throat: Yes: no symptom reported Eyes: Yes: no symptom reported Pulmonary: Yes dyspnea Cardiovascular: Yes no symptom reported Gastrointestional: Yes: no symptom reported Genitourinary: Yes: no symptom reported Musculoskeletal: Yes: no symptom reported Skin: Yes no symptom reported Psychiatric/Neurological: Yes: no symptom reported Endocrine: Yes: no symptom reported Physical Exam HEENT: Neck Supple W Full Motion Chest: Symmetric LUNGS: Other (bibasilar crackles) Heart: S1S2, RRR (SR) Abdomen: Soft N/T Extremities: No Edema, No Calf Tenderness Neurology: other (somnolent ) Assessment Assessment 1. Dyspnea; multifactorial given a/c HF, plural effusion, pericardial effusion. S/P pericardial window POD#2. 2. Acute on chronic diastolic/systolic CHF 3. Moderate left pleural effusion, poss PNA. Thoracentesis later today 4. ESRD on HD 5. Cardiomyopathy: LVEF 35% 6. Hypothyroidism: TSH 11 per PCP 7. COPD: O2 sat 88% on RA, continue with O2 supplementation 8. Anemia: Hgb trending downward 9. Encephalopathy, periods of agitation. Presently somnolent following Ativan, Haldol. 1:1 Recommendations Repeat labs Continue fluid off loading via HD as per nephrology Thoracentesis today Supportive care Consider outpatient ischemic eval NOEMI BARR APRN Sep 12, 2018 09:44
--- NOTE | 2018-09-12 09:52 | RAD ---
CT of the chest without contrast, 09/12/2018: HISTORY: Dyspnea, pleural effusion Noncontrast scans were obtained and compared to a study from 09/05/2015. The heart is enlarged. A pericardial drain is present anteriorly with interval decrease in size of the pericardial effusion. A right dialysis type catheter extends to the level of the atriocaval junction. There is mild calcific plaquing of the aorta. Minimal coronary artery calcification is present. There appear to be mildly prominent lymph nodes in the subcarinal and right paratracheal regions, unchanged. There is a small ongoing right pleural effusion which appears to have decreased slightly in size. There is a moderate volume of left-sided pleural fluid with moderate fissural extension, similar to that seen on the previous exam. There is mild underlying atelectasis in the left base. There are patchy interstitial and airspace opacities in both lungs which have worsened since the previous study. Interlobular septal thickening is present. Pulmonary edema is suspected. IMPRESSION: 1. Decrease in volume of the pericardial effusion status post pericardial drain placement. 2. Patchy airspace and interstitial opacities in both lungs have worsened since 09/05/2018. The pattern suggests pulmonary edema, although a component of pneumonia cannot be excluded. 3. Ongoing moderate sized left pleural effusion with fissural extension. 4. Small residual right pleural effusion. PQRS Compliance Statement: One or more of the following individualized dose reduction techniques were utilized for this examination: 1. Automated exposure control 2. Adjustment of the mA and/or kV according to patient size 3. Use of iterative reconstruction technique Electronically signed by: Jt Reyes MD (09/12/2018 9:49 AM) [facility]
[2018-09-12 11:00] LABS: BASO # 0.1 x10^3/uL (0.0-0.2); BASO % 1 % (0-3); EOS # 0.8 x10^3/uL (0.0-0.7); EOS % 7 % (0-3); HEMATOCRIT 22.8 % (39.0-53.0); HEMOGLOBIN 7.1 g/dL (13.0-17.5); LYMPH # 1.1 x10^3/uL (1.0-4.8); LYMPH % 9 % (24-48); MEAN CORPUSCULAR HEMOGLOBIN 27 pg (25-35); MEAN CORPUSCULAR HGB CONC 31 g/dL (31-37); MEAN CORPUSCULAR VOLUME 87 fL (79-100); MONO # 1.4 x10^3/uL (0.0-1.1); MONO % 12 % (0-9); NEUT # 8.6 x10^3uL (1.8-7.7); NEUT % 71 % (31-73); PLATELET COUNT 280 x10^3/uL (140-400); RED BLOOD COUNT 2.61 x10^6/uL (4.30-5.70); RED CELL DISTRIBUTION WIDTH 16.5 % (11.5-14.5)
[2018-09-12 11:07] LABS: CALCIUM 7.9 mg/dL (8.5-10.1); CREATININE 4.4 mg/dL (0.7-1.3); GFR 14.1; MAGNESIUM 1.8 mg/dL (1.8-2.4); POTASSIUM 4.3 mmol/L (3.5-5.1)
--- NOTE | 2018-09-12 11:17 | NUR ---
SW following for discharge planning. Discussed with RN, RN advised pt had to be given Ativan and Haldol last night so is not easily woken today. Pt still has a 1:1. SW will continue to follow.
--- NOTE | 2018-09-12 11:19 | PDOC ---
SUBJECTIVE ROS Altered MS , agitated, sitter in room Sleeping currently OBJECTIVE Vital Signs Vital Signs Date Time Temp Pulse Resp B/P (MAP) Pulse Ox O2 Delivery O2 Flow Rate FiO2 09/12/18 10:47 98.0 88 18 95/54 (68) 95 Nasal Cannula 2.0 98.0 I & 0 Intake and Output 09/12/18 06:59 Intake Total 710 ml Output Total 130 ml Balance 580 ml Intake Oral 660 ml IV Total 50 ml Output Urine Total 100 ml Drainage Total 30 ml PHYSICAL EXAM Physical Exam GEN: NAD HEENT- On RA NECK: Supple CVS: S1S2,RRR, drain post pericardial window RESP: No Acc. Muscle Use, CTA GI: BS + ve, NO Bruit, Non Tender, Non Distended : No CVA tenderness, No Suprapubic Tenderness Suprapubic Catheter+ Neuro- AXo X 3 Skin No Rash DIAGNOSIS/ASSESSMENT Assessment & Plan ESRD- On HD TTS at [facility] Etiology- Bilat Hydronephrosis Multiple Hospitalizations HD done M/T Currently No indication today , Tomorrow as his schedule Pericardial effusion without clinical tamponade s/p pericardial window 09/10 - drained approximately 400 mls of cloudy fluid from the pericardial space. Anemia- Multiple Hospitalizations On CLIFF CTA with and w/o Contrast 09/05- Moderate-sized pericardial effusion which has progressed since the prior study. Cardiac tamponade is possible. Bilateral pleural effusions. Moderate on the left which is unchanged. Small on the right which has improved. Mild improvement in bilateral spiculated lung nodules. Improvement of bilateral pulmonary edema since the previous study. Bilateral mucous plugs are evident within peripheral bronchi. COMMENT/RELEVANT DATA Meds Current Medications Medications (Trade) Dose Ordered Sig/Kevin Start Time Stop Time Status Last Admin Dose Admin Acetaminophen (Tylenol) 500 mg 1X PRN PRN 09/06/18 08:15 09/07/18 08:14 DC Albumin Human 200 ml @ 200 mls/hr 1X PRN PRN 09/11/18 07:15 09/11/18 13:14 DC Calcium Acetate (Phoslo) 667 mg TIDWMEALS 09/06/18 08:00 09/11/18 13:10 667 MG Cefazolin Sodium 1 gm/Sodium Chloride 500 ml @ 500 mls/hr 1X ONCE 09/10/18 12:00 09/10/18 12:59 DC 09/10/18 13:26 Darbepoetin Napoleon (Aranesp) 60 mcg WEEKLYHS 09/06/18 21:00 09/06/18 20:45 60 MCG Dexamethasone Sodium Phosphate (Decadron) 20 mg STK-MED ONCE 09/10/18 12:30 09/10/18 12:31 DC Diphenhydramine HCl (Benadryl) 25 mg 1X PRN PRN 09/06/18 08:15 09/07/18 08:14 DC Etomidate (Amidate) 20 mg STK-MED ONCE 09/10/18 12:30 09/10/18 12:31 DC Famotidine (Pepcid Vial) 20 mg STK-MED ONCE 09/10/18 12:30 09/10/18 12:31 DC Fentanyl Citrate (Fentanyl 2ml Vial) 100 mcg STK-MED ONCE 09/10/18 14:14 09/10/18 14:15 DC Glycopyrrolate (Robinul) 1 mg STK-MED ONCE 09/10/18 13:40 09/10/18 13:41 DC Haloperidol Lactate (Haldol Inj) 5 mg PRN Q3HRS PRN 09/11/18 22:00 09/11/18 22:09 5 MG Hydromorphone HCl (Dilaudid) 0.5 mg PRN Q10MIN PRN 09/10/18 07:00 09/10/18 18:00 DC Info (CONTRAST GIVEN -- Rx MONITORING) 1 each PRN DAILY PRN 09/05/18 17:15 09/07/18 17:14 DC Info (PHARMACY MONITORING -- do not chart) 1 each PRN DAILY PRN 09/11/18 07:15 UNV Iohexol (Omnipaque 350 Mg/ml) 90 ml 1X ONCE 09/05/18 17:15 09/05/18 17:16 DC 09/05/18 17:21 90 ML Lactobacillus Rhamnosus (Culturelle) 1 cap BID 09/06/18 21:00 09/11/18 19:44 1 CAP Lidocaine HCl (Lidocaine Pf 2% Vial) 5 ml STK-MED ONCE 09/10/18 12:30 09/10/18 12:31 DC Lidocaine HCl (Xylocaine-Mpf 1% 2ml Vial) 2 ml PRN 1X PRN 09/10/18 07:00 09/10/18 18:00 DC Lorazepam (Ativan) 2 mg PRN Q4HRS PRN 09/10/18 22:30 09/11/18 21:20 2 MG Metoprolol Succinate (Toprol Xl) 25 mg DAILY 09/11/18 09:00 09/11/18 13:11 25 MG Midazolam HCl (Versed) 2 mg STK-MED ONCE 09/10/18 12:30 09/10/18 12:31 DC Morphine Sulfate (Morphine Sulfate) 1 mg PRN Q10MIN PRN 09/10/18 07:00 09/10/18 18:00 DC Neostigmine Methylsulfate (Bloxiverz) 10 mg STK-MED ONCE 09/10/18 13:40 09/10/18 13:41 DC Ondansetron HCl (Zofran) 4 mg STK-MED ONCE 09/10/18 12:30 09/10/18 12:31 DC Pantoprazole Sodium (Protonix) 40 mg DAILYAC 09/06/18 10:15 09/10/18 05:19 40 MG Phenylephrine HCl (Michael-Synephrine Inj) 10 mg STK-MED ONCE 09/10/18 12:30 09/10/18 12:31 DC Piperacillin Sod/ Tazobactam Sod (Zosyn Per Pharmacy) 1 each PRN DAILY PRN 09/05/18 17:45 Piperacillin Sod/ Tazobactam Sod 2.25 gm/Sodium Chloride 50 ml @ 100 mls/hr Q8HRS 09/06/18 00:00 09/12/18 05:18 100 MLS/HR Polysaccharide Iron Complex (Niferex 150) 150 mg [id number] 09/05/18 21:00 09/12/18 05:25 150 MG Prochlorperazine Edisylate (Compazine) 5 mg PACU PRN PRN 09/10/18 07:00 09/10/18 18:00 DC Quetiapine Fumarate (SEROquel) 25 mg HS 09/10/18 21:00 09/11/18 19:44 25 MG Ringer's Solution 1,000 ml @ 30 mls/hr Q24H 09/10/18 07:00 09/10/18 18:59 DC Rocuronium [place] (Zemuron) 50 mg STK-MED ONCE 09/10/18 12:30 09/10/18 12:31 DC Sevoflurane (Ultane) 60 ml STK-MED ONCE 09/10/18 13:58 09/10/18 13:59 DC Sodium Chloride 1,000 ml @ 400 mls/hr Q2H30M PRN 09/11/18 07:06 09/11/18 19:05 DC Tramadol HCl (Ultram) 50 mg PRN Q6HRS PRN 09/06/18 01:30 09/11/18 13:11 50 MG Vitamin B Complex/ Vitamin C (Massiel-Darrel) 1 tab DAILY 09/06/18 09:00 09/09/18 08:22 1 TAB Lab Laboratory Tests Test 09/11/18 15:00 09/11/18 16:00 09/12/18 10:17 Influenza Type A Antigen Negative (NEGATIVE) Influenza Type B Antigen Negative (NEGATIVE) O2 Saturation 97 % (92-99) Arterial Blood pH 7.44 (7.35-7.45) Arterial Blood pCO2 at Patient Temp 42 mmHg (35-46) Arterial Blood pO2 at Patient Temp 96 mmHg (75-108) Arterial Blood HCO3 28 mmol/L (21-28) Arterial Blood Base Excess 3 mmol/L (-3-3) FiO2 2 lpm nc White Blood Count 12.0 x10^3/uL (4.0-11.0) Red Blood Count 2.61 x10^6/uL (4.30-5.70) Hemoglobin 7.1 g/dL (13.0-17.5) Hematocrit 22.8 % (39.0-53.0) Mean Corpuscular Volume 87 fL (79-100) Mean Corpuscular Hemoglobin 27 pg (25-35) Mean Corpuscular Hemoglobin Concent 31 g/dL (31-37) Red Cell Distribution Width 16.5 % (11.5-14.5) Platelet Count 280 x10^3/uL (140-400) Neutrophils (%) (Auto) 71 % (31-73) Lymphocytes (%) (Auto) 9 % (24-48) Monocytes (%) (Auto) 12 % (0-9) Eosinophils (%) (Auto) 7 % (0-3) Basophils (%) (Auto) 1 % (0-3) Neutrophils # (Auto) 8.6 x10^3uL (1.8-7.7) Lymphocytes # (Auto) 1.1 x10^3/uL (1.0-4.8) Monocytes # (Auto) 1.4 x10^3/uL (0.0-1.1) Eosinophils # (Auto) 0.8 x10^3/uL (0.0-0.7) Basophils # (Auto) 0.1 x10^3/uL (0.0-0.2) Sodium Level 141 mmol/L (136-145) Potassium Level 4.3 mmol/L (3.5-5.1) Chloride Level 103 mmol/L (98-107) Carbon Dioxide Level 32 mmol/L (21-32) Anion Gap 6 (6-14) Blood Urea Nitrogen 20 mg/dL (8-26) Creatinine 4.4 mg/dL (0.7-1.3) Estimated GFR (Cockcroft-Gault) 14.1 Glucose Level 97 mg/dL (70-99) Calcium Level 7.9 mg/dL (8.5-10.1) Magnesium Level 1.8 mg/dL (1.8-2.4) Results All relevant outside records, renal labs, imaging studies, telemetry/EKG's were reviewed. MARIYA NORMAN MD Sep 12, 2018 11:19
--- NOTE | 2018-09-12 14:51 | PDOC ---
Progress Note Subjective Subjective Doing OK. Still requires some O2. Normotensive. Minimal serosanguinous LEONARDO output. CT reviewed-mainly has loculated left pleural effusion from hilum and into the fissure. No real significant residual pericardial effusion. ROS ROS No nausea No vomiting No pain No rash Vital Sign Vital Signs Vital Signs Date Time Temp Pulse Resp B/P (MAP) Pulse Ox O2 Delivery O2 Flow Rate FiO2 09/12/18 14:45 97.6 88 18 111/67 (82) 95 Nasal Cannula 2.0 97.6 Physical Exam PHYSICAL EXAM GENERAL: NAD, Alert HEENT: PERRL, OC/OP NECK: Supple, no JVD, no LN LUNGS: Clear HEART: S1S2, no gallop, no murmur ABD: Soft, NT, no organomegaly, no rebound EXT: No edema, no cyanosis [facility]: Alert, oriented x 3, no focal neurologic deficit SKIN: No rash IV: ok Labs Lab Laboratory Tests Test 09/11/18 15:00 09/11/18 16:00 09/12/18 10:17 Influenza Type A Antigen Negative (NEGATIVE) Influenza Type B Antigen Negative (NEGATIVE) O2 Saturation 97 % (92-99) Arterial Blood pH 7.44 (7.35-7.45) Arterial Blood pCO2 at Patient Temp 42 mmHg (35-46) Arterial Blood pO2 at Patient Temp 96 mmHg (75-108) Arterial Blood HCO3 28 mmol/L (21-28) Arterial Blood Base Excess 3 mmol/L (-3-3) FiO2 2 lpm nc White Blood Count 12.0 x10^3/uL (4.0-11.0) Red Blood Count 2.61 x10^6/uL (4.30-5.70) Hemoglobin 7.1 g/dL (13.0-17.5) Hematocrit 22.8 % (39.0-53.0) Mean Corpuscular Volume 87 fL (79-100) Mean Corpuscular Hemoglobin 27 pg (25-35) Mean Corpuscular Hemoglobin Concent 31 g/dL (31-37) Red Cell Distribution Width 16.5 % (11.5-14.5) Platelet Count 280 x10^3/uL (140-400) Neutrophils (%) (Auto) 71 % (31-73) Lymphocytes (%) (Auto) 9 % (24-48) Monocytes (%) (Auto) 12 % (0-9) Eosinophils (%) (Auto) 7 % (0-3) Basophils (%) (Auto) 1 % (0-3) Neutrophils # (Auto) 8.6 x10^3uL (1.8-7.7) Lymphocytes # (Auto) 1.1 x10^3/uL (1.0-4.8) Monocytes # (Auto) 1.4 x10^3/uL (0.0-1.1) Eosinophils # (Auto) 0.8 x10^3/uL (0.0-0.7) Basophils # (Auto) 0.1 x10^3/uL (0.0-0.2) Sodium Level 141 mmol/L (136-145) Potassium Level 4.3 mmol/L (3.5-5.1) Chloride Level 103 mmol/L (98-107) Carbon Dioxide Level 32 mmol/L (21-32) Anion Gap 6 (6-14) Blood Urea Nitrogen 20 mg/dL (8-26) Creatinine 4.4 mg/dL (0.7-1.3) Estimated GFR (Cockcroft-Gault) 14.1 Glucose Level 97 mg/dL (70-99) Calcium Level 7.9 mg/dL (8.5-10.1) Magnesium Level 1.8 mg/dL (1.8-2.4) Objective Assessment POD#2, s/p subxiphoid pericardial window. Doing OK. Still requires some O2. Normotensive. Minimal serosanguinous LEONARDO output. CT reviewed-mainly has loculated left pleural effusion from hilum and into the fissure. No real significant residual pericardial effusion. Plan Plan of Care D/c LEONARDO drain Limited ECHO today OK to d/c from CTS standpoint He will f/u with me in clinic in 3 weeks BALDO CORTEZ MD Sep 12, 2018 14:51
--- NOTE | 2018-09-12 14:55 | PDOC ---
PROGRESS NOTES Chief Complaint Chief Complaint acute hypoxic respiratory failure at admit, improved Moderate ongoing bilateral pulmonary infiltrates and nodules ESRD on HD TTHS Anemia of ESRD Recent massive gI bleed s./p IR coiling - hgb 9.5 weakness small to mod pericardial effusion. Trops normal, pericardial effusion appears to be subacute in nature with fibrinous components. The effusion is mostly posteriorly layered. status post pericardial window on 09/10/2018 Acute on chronic systolic CHF Cardiomyopathy: EF 35% Concern for drug seeking behavior Erratic behavior at the end of dialysis History of Present Illness History of Present Illness Patient much more calm today after a very agitated night. Requiring several rounds of Ativan and Haldol and noted to control his outbursts of anger. Patient was sent this morning for a CAT scan of the chest with evidence of a later pleural effusion. Interventional radiology has been consulted in order to have a CT-guided thoracentesis done versus pigtail placement. Instant Print Operator's recommendations are greatly appreciated we'll continue to monitor Vitals Vitals Vital Signs Date Time Temp Pulse Resp B/P (MAP) Pulse Ox O2 Delivery O2 Flow Rate FiO2 09/12/18 10:47 98.0 88 18 95/54 (68) 95 Nasal Cannula 2.0 98.0 Physical Exam Physical Exam GENERAL: NAD, Alert HEENT: PERRL, OC/OP NECK: Supple, no JVD, no LN LUNGS: Clear HEART: S1S2, no gallop, no murmur ABD: Soft, NT, no organomegaly, no rebound EXT: No edema, no cyanosis ED SPECIAL EDUCATION TEACHER: Alert, oriented x 3, no focal neurologic deficit SKIN: No rash IV: ok General: mild distress Heart: Regular rate, No murmurs (muffled), Other (JVD) Lungs: Clear, Crackles Abdomen: Soft, No tenderness, No hepatosplenomegaly Extremities: No clubbing, No cyanosis Skin: No significant lesion Labs LABS Laboratory Tests Test 09/11/18 15:00 09/11/18 16:00 09/12/18 10:17 Influenza Type A Antigen Negative (NEGATIVE) Influenza Type B Antigen Negative (NEGATIVE) O2 Saturation 97 % (92-99) Arterial Blood pH 7.44 (7.35-7.45) Arterial Blood pCO2 at Patient Temp 42 mmHg (35-46) Arterial Blood pO2 at Patient Temp 96 mmHg (75-108) Arterial Blood HCO3 28 mmol/L (21-28) Arterial Blood Base Excess 3 mmol/L (-3-3) FiO2 2 lpm nc White Blood Count 12.0 x10^3/uL (4.0-11.0) Red Blood Count 2.61 x10^6/uL (4.30-5.70) Hemoglobin 7.1 g/dL (13.0-17.5) Hematocrit 22.8 % (39.0-53.0) Mean Corpuscular Volume 87 fL (79-100) Mean Corpuscular Hemoglobin 27 pg (25-35) Mean Corpuscular Hemoglobin Concent 31 g/dL (31-37) Red Cell Distribution Width 16.5 % (11.5-14.5) Platelet Count 280 x10^3/uL (140-400) Neutrophils (%) (Auto) 71 % (31-73) Lymphocytes (%) (Auto) 9 % (24-48) Monocytes (%) (Auto) 12 % (0-9) Eosinophils (%) (Auto) 7 % (0-3) Basophils (%) (Auto) 1 % (0-3) Neutrophils # (Auto) 8.6 x10^3uL (1.8-7.7) Lymphocytes # (Auto) 1.1 x10^3/uL (1.0-4.8) Monocytes # (Auto) 1.4 x10^3/uL (0.0-1.1) Eosinophils # (Auto) 0.8 x10^3/uL (0.0-0.7) Basophils # (Auto) 0.1 x10^3/uL (0.0-0.2) Sodium Level 141 mmol/L (136-145) Potassium Level 4.3 mmol/L (3.5-5.1) Chloride Level 103 mmol/L (98-107) Carbon Dioxide Level 32 mmol/L (21-32) Anion Gap 6 (6-14) Blood Urea Nitrogen 20 mg/dL (8-26) Creatinine 4.4 mg/dL (0.7-1.3) Estimated GFR (Cockcroft-Gault) 14.1 Glucose Level 97 mg/dL (70-99) Calcium Level 7.9 mg/dL (8.5-10.1) Magnesium Level 1.8 mg/dL (1.8-2.4) PATIENT: CROSS,FELICE A ACCOUNT: [id number] : 1965 LOCATION: 2 [facility]OUTH AGE: 53 SEX: M EXAM STATUS: ADM IN ORD. PHYSICIAN: RUDI DAVALOS MD REASON: dyspnea, pericardial pleural effusion PROCEDURE: CT CHEST WO CONTRAST CT of the chest without contrast, 09/12/2018: HISTORY: Dyspnea, pleural effusion Noncontrast scans were obtained and compared to a study from 09/05/2015. The heart is enlarged. A pericardial drain is present anteriorly with interval decrease in size of the pericardial effusion. A right dialysis type catheter extends to the level of the atriocaval junction. There is mild calcific plaquing of the aorta. Minimal coronary artery calcification is present. There appear to be mildly prominent lymph nodes in the subcarinal and right paratracheal regions, unchanged. There is a small ongoing right pleural effusion which appears to have decreased slightly in size. There is a moderate volume of left-sided pleural fluid with moderate fissural extension, similar to that seen on the previous exam. There is mild underlying atelectasis in the left base. There are patchy interstitial and airspace opacities in both lungs which have worsened since the previous study. Interlobular septal thickening is present. Pulmonary edema is suspected. IMPRESSION: 1. Decrease in volume of the pericardial effusion status post pericardial drain placement. 2. Patchy airspace and interstitial opacities in both lungs have worsened since 09/05/2018. The pattern suggests pulmonary edema, although a component of pneumonia cannot be excluded. 3. Ongoing moderate sized left pleural effusion with fissural extension. 4. Small residual right pleural effusion. PQRS Compliance Statement: One or more of the following individualized dose reduction techniques were utilized for this examination: 1. Automated exposure control 2. Adjustment of the mA and/or kV according to patient size 3. Use of iterative reconstruction technique Electronically signed by: Jt Reyes MD (09/12/2018 9:49 AM) [facility] DICTATED and SIGNED BY: JT REYES MD DATE: 09/12/18 0938 Review of Systems Review of Systems pertinent as per HPI otherwise 10 point review of systems negative. Assessment and Plan Assessmemt and Plan Problems Medical Problems: (1) Dyspnea Status: Acute Comment Review of Relevant I have reviewed the following items allyson (where applicable) has been applied. Labs Laboratory Tests Test 09/11/18 15:00 09/11/18 16:00 09/12/18 10:17 Influenza Type A Antigen Negative (NEGATIVE) Influenza Type B Antigen Negative (NEGATIVE) O2 Saturation 97 % (92-99) Arterial Blood pH 7.44 (7.35-7.45) Arterial Blood pCO2 at Patient Temp 42 mmHg (35-46) Arterial Blood pO2 at Patient Temp 96 mmHg (75-108) Arterial Blood HCO3 28 mmol/L (21-28) Arterial Blood Base Excess 3 mmol/L (-3-3) FiO2 2 lpm nc White Blood Count 12.0 x10^3/uL (4.0-11.0) Red Blood Count 2.61 x10^6/uL (4.30-5.70) Hemoglobin 7.1 g/dL (13.0-17.5) Hematocrit 22.8 % (39.0-53.0) Mean Corpuscular Volume 87 fL (79-100) Mean Corpuscular Hemoglobin 27 pg (25-35) Mean Corpuscular Hemoglobin Concent 31 g/dL (31-37) Red Cell Distribution Width 16.5 % (11.5-14.5) Platelet Count 280 x10^3/uL (140-400) Neutrophils (%) (Auto) 71 % (31-73) Lymphocytes (%) (Auto) 9 % (24-48) Monocytes (%) (Auto) 12 % (0-9) Eosinophils (%) (Auto) 7 % (0-3) Basophils (%) (Auto) 1 % (0-3) Neutrophils # (Auto) 8.6 x10^3uL (1.8-7.7) Lymphocytes # (Auto) 1.1 x10^3/uL (1.0-4.8) Monocytes # (Auto) 1.4 x10^3/uL (0.0-1.1) Eosinophils # (Auto) 0.8 x10^3/uL (0.0-0.7) Basophils # (Auto) 0.1 x10^3/uL (0.0-0.2) Sodium Level 141 mmol/L (136-145) Potassium Level 4.3 mmol/L (3.5-5.1) Chloride Level 103 mmol/L (98-107) Carbon Dioxide Level 32 mmol/L (21-32) Anion Gap 6 (6-14) Blood Urea Nitrogen 20 mg/dL (8-26) Creatinine 4.4 mg/dL (0.7-1.3) Estimated GFR (Cockcroft-Gault) 14.1 Glucose Level 97 mg/dL (70-99) Calcium Level 7.9 mg/dL (8.5-10.1) Magnesium Level 1.8 mg/dL (1.8-2.4) Laboratory Tests Test 09/11/18 15:00 09/11/18 16:00 09/12/18 10:17 Influenza Type A Antigen Negative (NEGATIVE) Influenza Type B Antigen Negative (NEGATIVE) O2 Saturation 97 % (92-99) Arterial Blood pH 7.44 (7.35-7.45) Arterial Blood pCO2 at Patient Temp 42 mmHg (35-46) Arterial Blood pO2 at Patient Temp 96 mmHg (75-108) Arterial Blood HCO3 28 mmol/L (21-28) Arterial Blood Base Excess 3 mmol/L (-3-3) FiO2 2 lpm nc White Blood Count 12.0 x10^3/uL (4.0-11.0) Red Blood Count 2.61 x10^6/uL (4.30-5.70) Hemoglobin 7.1 g/dL (13.0-17.5) Hematocrit 22.8 % (39.0-53.0) Mean Corpuscular Volume 87 fL (79-100) Mean Corpuscular Hemoglobin 27 pg (25-35) Mean Corpuscular Hemoglobin Concent 31 g/dL (31-37) Red Cell Distribution Width 16.5 % (11.5-14.5) Platelet Count 280 x10^3/uL (140-400) Neutrophils (%) (Auto) 71 % (31-73) Lymphocytes (%) (Auto) 9 % (24-48) Monocytes (%) (Auto) 12 % (0-9) Eosinophils (%) (Auto) 7 % (0-3) Basophils (%) (Auto) 1 % (0-3) Neutrophils # (Auto) 8.6 x10^3uL (1.8-7.7) Lymphocytes # (Auto) 1.1 x10^3/uL (1.0-4.8) Monocytes # (Auto) 1.4 x10^3/uL (0.0-1.1) Eosinophils # (Auto) 0.8 x10^3/uL (0.0-0.7) Basophils # (Auto) 0.1 x10^3/uL (0.0-0.2) Sodium Level 141 mmol/L (136-145) Potassium Level 4.3 mmol/L (3.5-5.1) Chloride Level 103 mmol/L (98-107) Carbon Dioxide Level 32 mmol/L (21-32) Anion Gap 6 (6-14) Blood Urea Nitrogen 20 mg/dL (8-26) Creatinine 4.4 mg/dL (0.7-1.3) Estimated GFR (Cockcroft-Gault) 14.1 Glucose Level 97 mg/dL (70-99) Calcium Level 7.9 mg/dL (8.5-10.1) Magnesium Level 1.8 mg/dL (1.8-2.4) Microbiology 09/05/18 Blood Culture - Final, Complete NO GROWTH AFTER 5 DAYS 09/10/18 Anaerobic/Aerobic Culture, Resulted Pending 09/10/18 Anaerobic Culture Result 1 (NATHAN), Resulted Pending 09/10/18 Aerobic Culture, Resulted Pending 09/10/18 Aerobic Culture Result 1 (NATHAN), Resulted Pending 09/10/18 Gram Stain - Final, Resulted 09/10/18 Gram Stain Result 1 (NATHAN) - Final, Resulted 09/10/18 Gram Stain Result 2 (NATHAN) - Final, Resulted Medications Current Medications Iohexol (Omnipaque 350 Mg/ml) 90 ml 1X ONCE IV Last administered on 09/05/18at 17:21; Start 09/05/18 at 17:15; Stop 09/05/18 at 17:16; Status DC Info (CONTRAST GIVEN -- Rx MONITORING) 1 each PRN DAILY PRN MC SEE COMMENTS; Start 09/05/18 at 17:15; Stop 09/07/18 at 17:14; Status DC Polysaccharide Iron Complex (Niferex 150) 150 mg BID66 PO Last administered on 09/12/18at 05:25; Start 09/05/18 at 21:00 Darbepoetin Napoleon (Aranesp) 60 mcg WEEKLYHS SQ ; Start 09/10/18 at 21:00; Status Cancel Pantoprazole Sodium (Protonix) 40 mg BIDAC PO Last administered on 09/05/18at 20 :57; Start 09/05/18 at 21:00; Stop 09/06/18 at 10:25; Status DC Vitamin B Complex/ Vitamin C (Massiel-Darrel) 1 tab DAILY PO Last administered on at 08:22; Start 09/06/18 at 09:00 Calcium Acetate (Phoslo) 667 mg TIDWMEALS PO Last administered on 09/11/18at 13: 10; Start 09/06/18 at 08:00 Piperacillin Sod/ Tazobactam Sod (Zosyn Per Pharmacy) 1 each PRN DAILY PRN MC SEE COMMENTS; Start 09/05/18 at 17:45 Piperacillin Sod/ Tazobactam Sod 2.25 gm/Sodium Chloride 50 ml @ 100 mls/hr 1X ONCE IV Last administered on 09/05/18at 18:17; Start 09/05/18 at 17:45; Stop 09/05/18 at 18:14; Status DC Fentanyl Citrate (Fentanyl 2ml Vial) 50 mcg 1X ONCE IV Last administered on at 18:13; Start 09/05/18 at 18:00; Stop 09/05/18 at 18:01; Status DC Piperacillin Sod/ Tazobactam Sod 2.25 gm/Sodium Chloride 50 ml @ 100 mls/hr Q8HRS IV Last administered on 09/12/18at 05:18; Start 09/06/18 at 00:00 Tramadol HCl (Ultram) 50 mg PRN Q6HRS PRN PO MODERATE PAIN Last administered on 09/11/18at 13:11; Start 09/06/18 at 01:30 Acetaminophen (Tylenol) 650 mg PRN Q6HRS PRN PO MILD PAIN Last administered on 09/08/18at 16:59; Start 09/06/18 at 01:30 Sodium Chloride 1,000 ml @ 1,000 mls/hr Q1H PRN IV hypotension; Start 09/06/18 at 08:09; Stop 09/06/18 at 14:08; Status DC Albumin Human 200 ml @ 200 mls/hr 1X PRN PRN IV Hypotension; Start 09/06/18 at 08:15; Stop 09/06/18 at 14:14; Status DC Acetaminophen (Tylenol) 500 mg 1X PRN PRN PO MILD PAIN / TEMP; Start 09/06/18 at 08:15; Stop 09/07/18 at 08:14; Status DC Diphenhydramine HCl (Benadryl) 25 mg 1X PRN PRN IV ITCHING; Start 09/06/18 at 08:15; Stop 09/07/18 at 08:14; Status DC Diphenhydramine HCl (Benadryl) 25 mg 1X PRN PRN IV ITCHING; Start 09/06/18 at 08:15; Stop 09/07/18 at 08:14; Status DC Sodium Chloride 1,000 ml @ 400 mls/hr Q2H30M PRN IV PATENCY; Start 09/06/18 at 08:09; Stop 09/06/18 at 20:08; Status DC Info (PHARMACY MONITORING -- do not chart) 1 each PRN DAILY PRN MC SEE COMMENTS ; Start 09/06/18 at 08:15 Metoprolol Succinate (Toprol Xl) 25 mg DAILY PO Last administered on 09/06/18at 14:00; Start 09/06/18 at 11:00; Stop 09/07/18 at 09:00; Status DC Pantoprazole Sodium (Protonix) 40 mg DAILYAC PO Last administered on 09/10/18at 05:19; Start 09/06/18 at 10:15 Fentanyl Citrate (Fentanyl 2ml Vial) 50 mcg 1X ONCE IV Last administered on at 11:54; Start 09/06/18 at 11:30; Stop 09/06/18 at 11:31; Status DC Darbepoetin Napoleon (Aranesp) 60 mcg WEEKLYHS SQ Last administered on 09/06/18at 20 :45; Start 09/06/18 at 21:00 Lactobacillus Rhamnosus (Culturelle) 1 cap BID PO Last administered on at 19:44; Start 09/06/18 at 21:00 Metoprolol Succinate (Toprol Xl) 50 mg DAILY PO Last administered on 09/10/18at 10:36; Start 09/07/18 at 09:00; Stop 09/11/18 at 08:06; Status DC Ondansetron HCl (Zofran) 4 mg PRN Q6HRS PRN IV NAUSEA/VOMITING; Start 09/10/18 at 07:00; Stop 09/10/18 at 18:00; Status DC Fentanyl Citrate (Fentanyl 2ml Vial) 25 mcg PRN Q5MIN PRN IV MILD PAIN; Start 09/10/18 at 07:00; Stop 09/10/18 at 18:00; Status DC Fentanyl Citrate (Fentanyl 2ml Vial) 50 mcg PRN Q5MIN PRN IV MODERATE TO SEVERE PAIN Last administered on 09/10/18at 14:33; Start 09/10/18 at 07:00; Stop 09/10/18 at 18:00; Status DC Morphine Sulfate (Morphine Sulfate) 1 mg PRN Q10MIN PRN IV SEVERE PAIN; Start 09/10/18 at 07:00; Stop 09/10/18 at 18:00; Status DC Ringer's Solution 1,000 ml @ 30 mls/hr Q24H IV ; Start 09/10/18 at 07:00; Stop 09/10/18 at 18:59; Status DC Lidocaine HCl (Xylocaine-Mpf 1% 2ml Vial) 2 ml PRN 1X PRN ID PRIOR TO IV START ; Start 09/10/18 at 07:00; Stop 09/10/18 at 18:00; Status DC Hydromorphone HCl (Dilaudid) 0.5 mg PRN Q10MIN PRN IV SEV PAIN, Second choice; Start 09/10/18 at 07:00; Stop 09/10/18 at 18:00; Status DC Prochlorperazine Edisylate (Compazine) 5 mg PACU PRN PRN IV NAUSEA, MRX1; Start 09/10/18 at 07:00; Stop 09/10/18 at 18:00; Status DC Sodium Chloride 1,000 ml @ 1,000 mls/hr Q1H PRN IV hypotension; Start 09/08/18 at 07:00; Stop 09/08/18 at 12:59; Status DC Sodium Chloride 1,000 ml @ 400 mls/hr Q2H30M PRN IV PATENCY; Start 09/08/18 at 07:00; Stop 09/08/18 at 18:59; Status DC Info (PHARMACY MONITORING -- do not chart) 1 each PRN DAILY PRN MC SEE COMMENTS ; Start 09/08/18 at 08:30; Status UNV Info (PHARMACY MONITORING -- do not chart) 1 each PRN DAILY PRN MC SEE COMMENTS ; Start 09/08/18 at 08:30; Status UNV Sodium Chloride 1,000 ml @ 1,000 mls/hr Q1H PRN IV hypotension; Start 09/10/18 at 07:00; Stop 09/10/18 at 15:00; Status DC Sodium Chloride 1,000 ml @ 400 mls/hr Q2H30M PRN IV PATENCY; Start 09/10/18 at 07:00; Stop 09/10/18 at 18:59; Status DC Info (PHARMACY MONITORING -- do not chart) 1 each PRN DAILY PRN MC SEE COMMENTS ; Start 09/10/18 at 08:00; Status UNV Info (PHARMACY MONITORING -- do not chart) 1 each PRN DAILY PRN MC SEE COMMENTS ; Start 09/10/18 at 08:00; Status UNV Cefazolin Sodium 1 gm/Sodium Chloride 500 ml @ 500 mls/hr 1X ONCE IRR Last administered on 09/10/18at 13:26; Start 09/10/18 at 12:00; Stop 09/10/18 at 12:59 ; Status DC Midazolam HCl (Versed) 2 mg STK-MED ONCE .ROUTE ; Start 09/10/18 at 12:23; Stop 09/10/18 at 12:24; Status DC Midazolam HCl (Versed) 2 mg 1X ONCE IV ; Start 09/10/18 at 12:45; Stop at 12:46; Status DC Dexamethasone Sodium Phosphate (Decadron) 20 mg STK-MED ONCE .ROUTE ; Start at 12:30; Stop 09/10/18 at 12:31; Status DC Lidocaine HCl (Lidocaine Pf 2% Vial) 5 ml STK-MED ONCE .ROUTE ; Start 09/10/18 at 12:30; Stop 09/10/18 at 12:31; Status DC Etomidate (Amidate) 20 mg STK-MED ONCE IV ; Start 09/10/18 at 12:30; Stop at 12:31; Status DC Famotidine (Pepcid Vial) 20 mg STK-MED ONCE .ROUTE ; Start 09/10/18 at 12:30; Stop 09/10/18 at 12:31; Status DC Ondansetron HCl (Zofran) 4 mg STK-MED ONCE .ROUTE ; Start 09/10/18 at 12:30; Stop 09/10/18 at 12:31; Status DC Phenylephrine HCl (Michael-Synephrine Inj) 10 mg STK-MED ONCE .ROUTE ; Start at 12:30; Stop 09/10/18 at 12:31; Status DC Rocuronium Wellman (Zemuron) 50 mg STK-MED ONCE .ROUTE ; Start 09/10/18 at 12:30 ; Stop 09/10/18 at 12:31; Status DC Fentanyl Citrate (Fentanyl 2ml Vial) 100 mcg STK-MED ONCE .ROUTE ; Start at 12:30; Stop 09/10/18 at 12:31; Status DC Midazolam HCl (Versed) 2 mg STK-MED ONCE .ROUTE ; Start 09/10/18 at 12:30; Stop 09/10/18 at 12:31; Status DC Neostigmine Methylsulfate (Bloxiverz) 10 mg STK-MED ONCE .ROUTE ; Start at 13:40; Stop 09/10/18 at 13:41; Status DC Glycopyrrolate (Robinul) 1 mg STK-MED ONCE .ROUTE ; Start 09/10/18 at 13:40; Stop 09/10/18 at 13:41; Status DC Sevoflurane (Ultane) 60 ml STK-MED ONCE IH ; Start 09/10/18 at 13:58; Stop 09/10 at 13:59; Status DC Fentanyl Citrate (Fentanyl 2ml Vial) 100 mcg STK-MED ONCE .ROUTE ; Start at 14:14; Stop 09/10/18 at 14:15; Status DC Lorazepam (Ativan) 2 mg 1X ONCE PO Last administered on 09/10/18at 22:00; Start 09/10/18 at 19:45; Stop 09/10/18 at 19:49; Status DC Lorazepam (Ativan) 1 mg PRN Q6HRS PRN PO ANXIETY / AGITATION Last administered on 09/11/18at 19:44; Start 09/10/18 at 19:45 Quetiapine Fumarate (SEROquel) 25 mg HS PO Last administered on 09/11/18at 19:44 ; Start 09/10/18 at 21:00 Lorazepam (Ativan) 2 mg PRN Q4HRS PRN IV ANXIETY / AGITATION Last administered on 09/11/18at 21:20; Start 09/10/18 at 22:30 Haloperidol Lactate (Haldol Inj) 5 mg 1X ONCE IVP ; Start 09/10/18 at 23:00; Stop 09/10/18 at 23:01; Status DC Sodium Chloride 1,000 ml @ 1,000 mls/hr Q1H PRN IV hypotension; Start 09/11/18 at 07:06; Stop 09/11/18 at 13:05; Status DC Albumin Human 200 ml @ 200 mls/hr 1X PRN PRN IV Hypotension; Start 09/11/18 at 07:15; Stop 09/11/18 at 13:14; Status DC Sodium Chloride 1,000 ml @ 400 mls/hr Q2H30M PRN IV PATENCY; Start 09/11/18 at 07:06; Stop 09/11/18 at 19:05; Status DC Info (PHARMACY MONITORING -- do not chart) 1 each PRN DAILY PRN MC SEE COMMENTS ; Start 09/11/18 at 07:15; Status UNV Info (PHARMACY MONITORING -- do not chart) 1 each PRN DAILY PRN MC SEE COMMENTS ; Start 09/11/18 at 07:15; Status UNV Metoprolol Succinate (Toprol Xl) 25 mg DAILY PO Last administered on 09/11/18at 13:11; Start 09/11/18 at 09:00 Haloperidol Lactate (Haldol Inj) 5 mg PRN Q3HRS PRN IVP AGITATION Last administered on 09/11/18at 22:09; Start 09/11/18 at 22:00 Active Scripts Active [Pantoprazole] 40 MG Tablet.dr 40 Mg PO BIDAC 30 Days [Darbepoetin Napoleon In Polysorbat] 60 MCG/0.3 ML Disp.syrin 60 Mcg SQ WEEKLYHS 7 Days Poly-Iron (Iron Polysaccharides Complex) 150 Mg Capsule 150 Mg PO BID66 30 Days Vitals/I & O Vital Sign - Last 24 Hours 09/11/18 09/11/18 09/11/18 09/11/18 15:00 15:35 15:55 18:55 Temp 99.7 98.7 99.7 98.7 Pulse 99 101 86 Resp 18 20 B/P (MAP) 99/57 (71) 103/59 (74) 103/63 (76) Pulse Ox 98 98 98 97 O2 Delivery Nasal Cannula Nasal Cannula Nasal Cannula Nasal Cannula O2 Flow Rate 2.0 2.0 2.0 2.0 09/11/18 09/12/18 09/12/18 09/12/18 20:41 03:00 07:00 09:00 Temp 98.2 97.9 98.2 97.9 Pulse 92 89 88 Resp 18 18 B/P (MAP) 92/49 (63) 91/51 (64) 95/54 Pulse Ox 96 99 O2 Delivery Nasal Cannula Nasal Cannula Nasal Cannula O2 Flow Rate 2.0 2.0 2.0 09/12/18 10:47 Temp 98.0 98.0 Pulse 88 Resp 18 B/P (MAP) 95/54 (68) Pulse Ox 95 O2 Delivery Nasal Cannula O2 Flow Rate 2.0 Intake and Output 09/11/18 09/11/18 09/12/18 15:00 23:00 07:00 Intake Total 120 ml 300 ml 290 ml Output Total 130 ml 0 ml Balance 120 ml 170 ml 290 ml JAIR BARRERA MD Sep 12, 2018 14:55
--- NOTE | 2018-09-12 17:07 | PATHOLOGY ---
Note [facility] Accession Number: [id number] TESTS RESULT FLAG UNITS REF RANGE LAB Clinician Provided Cytology Information No. of containers..01 Other (Miscellaneous) Source: 01 PERICARDIAL FLUID DIAGNOSIS: 02 PERICARDIAL FLUID NO MALIGNANT CELLS IDENTIFIED. FEW REACTIVE MESOTHELIAL CELLS AND INFLAMMATORY CELLS PRESENT WITHIN A BACKGROUND OF RED BLOOD CELLS. THIS INTERPRETATION INCLUDES EVALUATION OF A CELL BLOCK. Signed out by: 02 Dominik Perera MD, Pathologist NPI- [id number] Performed by: Ramón Piper, [employer] ([facility]) Gross description: 01 5ML, RED, CLOUDY /LCS FLAG LEGEND: L-Low Normal,H-High Normal,LL-Alert Low,HH-Alert High <-Panic Low,>-Panic High,A-Abnormal,AA-Critical Abnormal Performed at: [address] [place] [address] Torres Coello MD, 02 [facility] [address] [place] [address] Dominik Perera MD, Specimen Comment: A duplicate report has been generated due to demographic updates. Performed at: [address], [place], [place] [id number] MD Torres Coello MD Phone: [phone]
--- NOTE | 2018-09-12 18:33 | NUR ---
Late afternoon procedure. Loculated area w purulent aspiration(120 ml)/ pigtail left in place/ attached to [place] Hungry w self feed lonnie meal before dozing off to sleep. Mentation clearing. n o overt violent behavior/verbal abuse today Addendum: 09/12/18 at 1915 by Brittany Persaud RN Mother informed per request on status and possible am discharge. informed of need for pig tail to remain intact ?24-48 H
[2018-09-12] MEDS: QUEtiapine 25 MG TABLET. PO SCH (20:00)
[2018-09-12] MEDS: traMADol 50 MG TABLET PO PRN (20:00)
[2018-09-12] MEDS ORDERED: HYDROcodone/APAP 5/325MG 1 TAB TABLET PO ONE (22:00)
[2018-09-13 03:06] VITALS: BP 119/67
[2018-09-13] MEDS: traMADol 50 MG TABLET PO PRN (03:57)
[2018-09-13] MEDS: PANTOPRAZOLE 40 MG TABLET.DR. PO SCH (05:24)
[2018-09-13] MEDS: IRON POLYSACCHARIDE COMPLEX 150 MG CAPSULE PO SCH ×2 (05:24→17:31)
[2018-09-13] MEDS: PIPERACILLIN/TAZOBACTAM 2.25 GM in IV NORMAL SALINE 50ML 50 ML IV SCH ×3 (05:24→22:37)
[2018-09-13 07:00] VITALS: BP 140/74
[2018-09-13] MEDS ORDERED: IV NORMAL SALINE 1000ML BAG 1,000 ML IV PRN ×2 (08:06)
[2018-09-13] MEDS ORDERED: diphenhydrAMINE 50 MG/ML VIAL IV PRN ×2 (08:15)
[2018-09-13] MEDS ORDERED: ALBUMIN HUMAN 25% 200 ML IV PRN (08:15)
[2018-09-13] MEDS ORDERED: DIALYSIS PATIENT. MC PRN (08:15)
[2018-09-13] MEDS ORDERED: ACETAMINOPHEN 500 MG TABLET PO PRN (08:15)
--- NOTE | 2018-09-13 08:33 | NUR ---
Nursing: Spoke with Dr. Helton. Ordered to hook chest tube up to suction (see order). Chest X-ray ordered for 1 hour after hooking patient up to suction. Dr. Garibay consulted for antibiotic recommendation. Dr. Garibay on unit and notified.
--- NOTE | 2018-09-13 08:39 | PDOC ---
Infectious Disease Note Vital Sign Vital Signs Vital Signs Date Time Temp Pulse Resp B/P (MAP) Pulse Ox O2 Delivery O2 Flow Rate FiO2 09/13/18 07:00 98.0 85 18 140/74 (96) 96 Room Air 98.0 09/12/18 15:40 2.0 Labs Lab Laboratory Tests Test 09/12/18 10:17 White Blood Count 12.0 x10^3/uL (4.0-11.0) Red Blood Count 2.61 x10^6/uL (4.30-5.70) Hemoglobin 7.1 g/dL (13.0-17.5) Hematocrit 22.8 % (39.0-53.0) Mean Corpuscular Volume 87 fL (79-100) Mean Corpuscular Hemoglobin 27 pg (25-35) Mean Corpuscular Hemoglobin Concent 31 g/dL (31-37) Red Cell Distribution Width 16.5 % (11.5-14.5) Platelet Count 280 x10^3/uL (140-400) Neutrophils (%) (Auto) 71 % (31-73) Lymphocytes (%) (Auto) 9 % (24-48) Monocytes (%) (Auto) 12 % (0-9) Eosinophils (%) (Auto) 7 % (0-3) Basophils (%) (Auto) 1 % (0-3) Neutrophils # (Auto) 8.6 x10^3uL (1.8-7.7) Lymphocytes # (Auto) 1.1 x10^3/uL (1.0-4.8) Monocytes # (Auto) 1.4 x10^3/uL (0.0-1.1) Eosinophils # (Auto) 0.8 x10^3/uL (0.0-0.7) Basophils # (Auto) 0.1 x10^3/uL (0.0-0.2) Sodium Level 141 mmol/L (136-145) Potassium Level 4.3 mmol/L (3.5-5.1) Chloride Level 103 mmol/L (98-107) Carbon Dioxide Level 32 mmol/L (21-32) Anion Gap 6 (6-14) Blood Urea Nitrogen 20 mg/dL (8-26) Creatinine 4.4 mg/dL (0.7-1.3) Estimated GFR (Cockcroft-Gault) 14.1 Glucose Level 97 mg/dL (70-99) Calcium Level 7.9 mg/dL (8.5-10.1) Magnesium Level 1.8 mg/dL (1.8-2.4) Micro CT chest 09/12 IMPRESSION: 1. Decrease in volume of the pericardial effusion status post pericardial drain placement. 2. Patchy airspace and interstitial opacities in both lungs have worsened since 09/05/2018. The pattern suggests pulmonary edema, although a component of pneumonia cannot be excluded. 3. Ongoing moderate sized left pleural effusion with fissural extension. 4. Small residual right pleural effusion Microbiology 09/05/18 Blood Culture - Final, Complete NO GROWTH AFTER 5 DAYS 09/10/18 Anaerobic/Aerobic Culture, Resulted Pending 09/10/18 Anaerobic Culture Result 1 (NATHAN), Resulted Pending 09/10/18 Aerobic Culture - Preliminary, Resulted 09/10/18 Aerobic Culture Result 1 (NATHAN) - Preliminary, Resulted 09/10/18 Gram Stain - Final, Resulted 09/10/18 Gram Stain Result 1 (NATHAN) - Final, Resulted 09/10/18 Gram Stain Result 2 (NATHAN) - Final, Resulted Objective Assessment Pleural effusion s/p chest tube 09/12 Leukocytosis - better S/p Cardiac window 09/10 for pericardial effusion -cults neg so far H/o MSSA sepsis - treated - RADHA 07/10 neg. on Zosyn since 09/05 Recent GI bleed with GDA embolization CKD on HD Anemia Plan Plan of Care Cont Zosyn F/u labs and cults/pleural fluid eval Thank you # [id number] JACQUIE EARL MD Sep 13, 2018 08:39
[2018-09-13 10:21] LABS: BASO # 0.1 x10^3/uL (0.0-0.2); BASO % 1 % (0-3); EOS # 0.7 x10^3/uL (0.0-0.7); EOS % 7 % (0-3); HEMATOCRIT 24.6 % (39.0-53.0); HEMOGLOBIN 7.8 g/dL (13.0-17.5); LYMPH # 1.2 x10^3/uL (1.0-4.8); LYMPH % 11 % (24-48); MEAN CORPUSCULAR HEMOGLOBIN 28 pg (25-35); MEAN CORPUSCULAR HGB CONC 32 g/dL (31-37); MEAN CORPUSCULAR VOLUME 87 fL (79-100); MONO % 9 % (0-9); NEUT # 7.4 x10^3uL (1.8-7.7); NEUT % 71 % (31-73); PLATELET COUNT 327 x10^3/uL (140-400); RED BLOOD COUNT 2.83 x10^6/uL (4.30-5.70); RED CELL DISTRIBUTION WIDTH 17.1 % (11.5-14.5); WHITE BLOOD COUNT 10.4 x10^3/uL (4.0-11.0)
--- NOTE | 2018-09-13 11:26 | CONS ---
DATE OF CONSULTATION: 09/13/2018 INFECTIOUS DISEASE CONSULTATION PATIENT'S ROOM: 248. REQUESTING PHYSICIAN: Dr. Helton. REASON FOR CONSULTATION: Antibiotic management. HISTORY OF PRESENT ILLNESS: The patient is a 53-year-old gentleman with chronic kidney disease on hemodialysis, also has a suprapubic catheter in place. Has a distant history of MSSA sepsis and was treated with IV antibiotics. He underwent transesophageal echo on 07/10/2018, did not show any complications. He has known history of questionable more likely pulmonary emboli. Recently was admitted in July secondary to GI bleed and underwent GDA embolization. He presented back to [facility] on 09/05/2018 with complaints of shortness of air, low energy and his hemoglobin was 9.5. He underwent a CTA on 09/05/2018 but there was no evidence of pulmonary embolism, previous emboli had resolved. There is a moderate sized pericardial effusion that had progressed, tamponade was consideration. There were bilateral pleural effusions, moderate on the left and appeared to be loculated. He was seen by Cardiothoracic Surgery and was taken to the operating room, underwent a pericardial window on 09/10/2018. It was apparently a fibrinous exudative type pericardial effusion. Cultures were taken. His LEONARDO has since been removed from the area. He has been on Zosyn since 09/05/2018. He underwent a CT scan on 09/12/2018 which showed decrease in volume of the pericardial effusion. There is patchy airspace and interstitial opacities in both lungs that has worsened since the , pattern suggests pulmonary edema, although a component of pneumonia could not be excluded. There is an ongoing moderate sized left pleural effusion with fissural extension and small residual right pleural effusion. Subsequently, underwent chest tube placement on the . Studies are all pending at this time. He did have a white blood cell count on the of 18.5 that improved to 12.0. Currently, the patient is lying in bed. He is feeling better today. He denies any fevers or chills or sweats. States he is breathing better. Has occasional cough, is nonproductive. He did have some loose stool. He has a suprapubic catheter in place. Denies any rashes or itches. PAST MEDICAL HISTORY: Positive for high-grade MSSA bacteremia as mentioned above, history of septic emboli, history of GI bleed as mentioned above, has cardiomyopathy, pericardial effusion as mentioned above, chronic kidney disease on hemodialysis, COPD. PAST SURGICAL HISTORY: Positive for history of GDA coiling, pericardial window, dialysis catheter placement, thoracentesis in the past, previous paracentesis, has a left-sided chest tube in place, and a suprapubic catheter in place. Also, he has had history of stenting secondary to hydronephrosis. REVIEW OF SYSTEMS: Otherwise negative. ALLERGIES: No known drug allergies. SOCIAL HISTORY: No tobacco or alcohol. FAMILY HISTORY: Noncontributory. CURRENT MEDICATIONS: Include Zosyn since the , PhosLo, , p.r.n. Haldol, iron, lactobacillus, Ativan, metoprolol, Protonix, Seroquel, Ultram. PHYSICAL EXAMINATION: VITAL SIGNS: He is afebrile, temperature 98, pulse 85, respirations 18, blood pressure 140/74, satting 96% on room air. CONSTITUTIONAL: He is cooperative. He is in no acute distress. He is lying in bed. HEENT: Pupils equal and reactive. He has normal conjunctivae, no hemorrhages. Oral cavity, pharynx is clear. No petechia. NECK: Supple, no JVD. LUNGS: Decreased in the bases. He has a left-sided chest tube in the posterior aspect. Appears to have some purulent looking material. HEART: S1, S2. He has a right-sided chest hemodialysis catheter without signs of complications. ABDOMEN: Flat. No guarding, no rebound. GENITOURINARY: Suprapubic Holloway is in place without complications. EXTREMITIES: No clubbing, cyanosis or gross edema. No signs of any splinter hemorrhages in his toes. He does have a hammertoe in his left foot. SKIN: Warm to touch without signs of rash. NEUROLOGIC: He is nonfocal and appropriate. Affect is somewhat flat. LABORATORY AND DIAGNOSTIC DATA: Laboratory values from the : White count of 12, hemoglobin 7.1, platelets of 280, neutrophils 71, lymphs are 9, monos 12, glucose 97. Influenza on the was negative. CT scan on the as mentioned above. IMPRESSION: 1. Pleural effusion, status post chest tube on the . 2. Leukocytosis is better. 3. Status post cardiac window on the 18th as mentioned above for pericardial effusion, cultures negative so far. 4. History of methicillin-sensitive Staphylococcus aureus sepsis, has been treated. RADHA on 07/10/2018 negative, on Zosyn since 09/05/2018. 5. Recent gastrointestinal bleed with GDA embolization. 6. Chronic kidney disease, on hemodialysis. 7. Anemia. RECOMMENDATIONS: Continue Zosyn for now. We will follow up labs. Obtain CBC for today on dialysis given his anemia. Follow up cultures and pleural fluid evaluation. Dr. Helton, thank you asking me to participate in the patient's care. If you have any questions, please do not hesitate to contact me. JACQUIE EARL MD DR: LIZ/macey JOB#: [id number] / [id number]
[2018-09-13] MEDS: CALCIUM ACETATE 667 MG CAPSULE PO SCH ×3 (12:00→17:31)
--- NOTE | 2018-09-13 12:09 | PDOC ---
PULMONARY PROGRESS NOTES Subjective no soa s/p left chest tube for purulent effusion Vitals Vital Signs Date Time Temp Pulse Resp B/P (MAP) Pulse Ox O2 Delivery O2 Flow Rate FiO2 09/13/18 08:00 Room Air 09/13/18 07:00 98.0 85 18 140/74 (96) 96 98.0 09/12/18 15:40 2.0 General: No acute distress, Lethargic HEENT: Other Lungs: Clear Cardiovascular: S1, S2 Abdomen: Soft, Non-tender Extremities: No Edema Skin: Warm Labs Laboratory Tests Test 09/11/18 15:00 09/11/18 16:00 09/12/18 10:17 09/13/18 09:50 Influenza Type A Antigen Negative (NEGATIVE) Influenza Type B Antigen Negative (NEGATIVE) O2 Saturation 97 % (92-99) Arterial Blood pH 7.44 (7.35-7.45) Arterial Blood pCO2 at Patient Temp 42 mmHg (35-46) Arterial Blood pO2 at Patient Temp 96 mmHg (75-108) Arterial Blood HCO3 28 mmol/L (21-28) Arterial Blood Base Excess 3 mmol/L (-3-3) FiO2 2 lpm nc White Blood Count 12.0 x10^3/uL (4.0-11.0) 10.4 x10^3/uL (4.0-11.0) Red Blood Count 2.61 x10^6/uL (4.30-5.70) 2.83 x10^6/uL (4.30-5.70) Hemoglobin 7.1 g/dL (13.0-17.5) 7.8 g/dL (13.0-17.5) Hematocrit 22.8 % (39.0-53.0) 24.6 % (39.0-53.0) Mean Corpuscular Volume 87 fL (79-100) 87 fL (79-100) Mean Corpuscular Hemoglobin 27 pg (25-35) 28 pg (25-35) Mean Corpuscular Hemoglobin Concent 31 g/dL (31-37) 32 g/dL (31-37) Red Cell Distribution Width 16.5 % (11.5-14.5) 17.1 % (11.5-14.5) Platelet Count 280 x10^3/uL (140-400) 327 x10^3/uL (140-400) Neutrophils (%) (Auto) 71 % (31-73) 71 % (31-73) Lymphocytes (%) (Auto) 9 % (24-48) 11 % (24-48) Monocytes (%) (Auto) 12 % (0-9) 9 % (0-9) Eosinophils (%) (Auto) 7 % (0-3) 7 % (0-3) Basophils (%) (Auto) 1 % (0-3) 1 % (0-3) Neutrophils # (Auto) 8.6 x10^3uL (1.8-7.7) 7.4 x10^3uL (1.8-7.7) Lymphocytes # (Auto) 1.1 x10^3/uL (1.0-4.8) 1.2 x10^3/uL (1.0-4.8) Monocytes # (Auto) 1.4 x10^3/uL (0.0-1.1) 1.0 x10^3/uL (0.0-1.1) Eosinophils # (Auto) 0.8 x10^3/uL (0.0-0.7) 0.7 x10^3/uL (0.0-0.7) Basophils # (Auto) 0.1 x10^3/uL (0.0-0.2) 0.1 x10^3/uL (0.0-0.2) Sodium Level 141 mmol/L (136-145) Potassium Level 4.3 mmol/L (3.5-5.1) Chloride Level 103 mmol/L (98-107) Carbon Dioxide Level 32 mmol/L (21-32) Anion Gap 6 (6-14) Blood Urea Nitrogen 20 mg/dL (8-26) Creatinine 4.4 mg/dL (0.7-1.3) Estimated GFR (Cockcroft-Gault) 14.1 Glucose Level 97 mg/dL (70-99) Calcium Level 7.9 mg/dL (8.5-10.1) Magnesium Level 1.8 mg/dL (1.8-2.4) Laboratory Tests Test 09/13/18 09:50 White Blood Count 10.4 x10^3/uL (4.0-11.0) Red Blood Count 2.83 x10^6/uL (4.30-5.70) Hemoglobin 7.8 g/dL (13.0-17.5) Hematocrit 24.6 % (39.0-53.0) Mean Corpuscular Volume 87 fL (79-100) Mean Corpuscular Hemoglobin 28 pg (25-35) Mean Corpuscular Hemoglobin Concent 32 g/dL (31-37) Red Cell Distribution Width 17.1 % (11.5-14.5) Platelet Count 327 x10^3/uL (140-400) Neutrophils (%) (Auto) 71 % (31-73) Lymphocytes (%) (Auto) 11 % (24-48) Monocytes (%) (Auto) 9 % (0-9) Eosinophils (%) (Auto) 7 % (0-3) Basophils (%) (Auto) 1 % (0-3) Neutrophils # (Auto) 7.4 x10^3uL (1.8-7.7) Lymphocytes # (Auto) 1.2 x10^3/uL (1.0-4.8) Monocytes # (Auto) 1.0 x10^3/uL (0.0-1.1) Eosinophils # (Auto) 0.7 x10^3/uL (0.0-0.7) Basophils # (Auto) 0.1 x10^3/uL (0.0-0.2) Medications Active Scripts Medications Dose Route/Sig Max Daily Dose Days Date Category [Pantoprazole] 40 MG Tablet.dr 40 Mg PO BIDAC 30 08/25/18 Rx [Darbepoetin Napoleon In Polysorbat] 60 MCG/0.3 ML Disp.syrin 60 Mcg SQ WEEKLYHS 7 08/25/18 Rx Poly-Iron (Iron Polysaccharides Complex) 150 Mg Capsule 150 Mg PO BID66 30 08/25/18 Rx Impression . 1. Acute recurrent hypoxic respiratory failure secondary to multifactorial etiologies including recent subacute pericardial effusion with early tamponade physiology, underlying chronic obstructive pulmonary disease, anemia, bilateral pleural effusions more loculated on the left and encephalopathy. Currently on 2 liters of oxygen. 2. Abnormal CT chest with persistent loculated left-sided pleural effusion. 3. Moderate to large pericardial effusion, status post pericardial window. 4. History of small pulmonary embolism last month, which subsequently resolved. He was not treated as at that time he was having severe anemia and gastrointestinal bleed. No history of inferior vena cava filter. 5. End-stage renal disease, on hemodialysis. 6. Underlying chronic obstructive pulmonary disease. 7. Low-grade fever, which has responded to current antibiotic. 8. H/O Cavitary nodules, likely related to staph infection, overall improved. Plan . 1. s/p left chest tube for loculated left effusion . He also has a small right pleural thickening and effusion. There is also a small left lower lobe loculated organized effusion. The effusion is exudate , likely infected. follow all cultures 2. Continue to monitor pericardial drain per Thoracic Surgery. 3. Continue present oxygen. 4. Continue antibiotic Zosyn. 5. Follow all cultures including pericardium cultures. 6. Follow ID recommendation. 7. Follow Cardiology recommendation regarding recent decline in his ejection fraction of 30%. 8. Discussed with RN. RUDI DAVALOS MD Sep 13, 2018 12:09
--- NOTE | 2018-09-13 12:21 | RAD ---
Portable chest, 09/13/2018: HISTORY: Chest tube, pleural effusion Comparison is made to a study from 09/11/2018. A right jugular dialysis type catheter remains in place extending into the superior aspect the right atrium. A pigtail drain overlying the left lower chest reportedly represents a new pleural drain. Left chest opacities have improved compatible with partial drainage of the pleural fluid. There are mild persistent left perihilar infiltrates. There is mild unchanged pleural thickening and underlying infiltrate on the right. The heart remains enlarged. The pericardial drain appears to have been removed. IMPRESSION: 1. Improved aeration of the left lung status post left pleural tube placement. 2. Unchanged right chest pleural/parenchymal opacities. Electronically signed by: Jt Reyes MD (09/13/2018 12:18 PM) [facility]
--- NOTE | 2018-09-13 12:24 | RAD ---
Procedure: CT-guided left chest tube placement for empyema Clinical Indication: 53-year-old with empyema Sedation: Local anesthesia only Antibiotics: None Sterility: The procedure was performed in its entirety using appropriate elements of sterile technique. Consent: The procedure was explained in its entirety to the patient or the patients designated client support representative by a member of the treatment team, including a discussion of the risks, benefits and commonly accepted alternatives to the procedure, as well as the expected consequences of no therapy whatsoever. Discussion of the risks included, but was not limited to, those that are most frequent and those that are rare but possibly severe or life-threatening, as well as the possibility of unforeseen complications. Technique and Findings: Following informed consent, the patient was prepped and draped in the usual sterile fashion. Preliminary CT scan of the area of interest was performed. 1% lidocaine was used to achieve local anesthesia. A small dermatotomy was made. Under periodic CT surveillance, an 18-gauge needle was advanced into the pleural space and dunia pus was aspirated. The needle was exchanged over wire for a 12 [place] pigtail drainage catheter which was sutured to the skin and placed to Pleur-evac drainage. Complications: No immediate Impression: 1. CT-guided left chest tube as described. Dunia pus was aspirated and sent for microbiologic analysis. PQRS Compliance Statement: One or more of the following individualized dose reduction techniques were utilized for this examination: 1. Automated exposure control 2. Adjustment of the mA and/or kV according to patient size 3. Use of iterative reconstruction technique
--- NOTE | 2018-09-13 12:46 | PDOC ---
SUBJECTIVE ROS Seen on HD, No concerns, Not agitated during Treatment OBJECTIVE Vital Signs Vital Signs Date Time Temp Pulse Resp B/P (MAP) Pulse Ox O2 Delivery O2 Flow Rate FiO2 09/13/18 08:00 Room Air 09/13/18 07:00 98.0 85 18 140/74 (96) 96 98.0 09/12/18 15:40 2.0 I & 0 Intake and Output 09/13/18 07:00 Intake Total 1610 ml Output Total 305 ml Balance 1305 ml Intake Oral 1610 ml Output Urine Total 280 ml Drainage Total 25 ml DIAGNOSIS/ASSESSMENT Assessment & Plan ESRD- On HD TTS at [facility] Etiology- Bilat Hydronephrosis Multiple Hospitalizations Seen on HD, tolerating well ,Continue as Ordered, madhu Molina Pericardial effusion without clinical tamponade s/p pericardial window 09/10 - drained approximately 400 mls of cloudy fluid from the pericardial space. Anemia- Multiple Hospitalizations Hgb has been as low as 2.9 Dx with GI bleed with GDA embolization On [facility]IFF Pleural effusion s/p chest tube 09/12 H/o MSSA sepsis - treated - RADHA 07/10 neg. on Zosyn since 09/05 COMMENT/RELEVANT DATA Meds Current Medications Medications (Trade) Dose Ordered Sig/Kevin Start Time Stop Time Status Last Admin Dose Admin Acetaminophen (Tylenol) 500 mg 1X PRN PRN 09/13/18 08:15 09/14/18 08:14 Acetaminophen/ Hydrocodone Bitart (Lortab 5/325) 1 tab 1X ONCE 09/12/18 22:00 09/12/18 22:01 DC 09/12/18 22:03 1 TAB Albumin Human 200 ml @ 200 mls/hr 1X PRN PRN 09/13/18 08:15 09/13/18 14:14 Calcium Acetate (Phoslo) 667 mg TIDWMEALS 09/06/18 08:00 09/11/18 13:10 667 MG Cefazolin Sodium 1 gm/Sodium Chloride 500 ml @ 500 mls/hr 1X ONCE 09/10/18 12:00 09/10/18 12:59 DC 09/10/18 13:26 Darbepoetin Napoleon (Aranesp) 60 mcg WEEKLYHS 09/06/18 21:00 09/06/18 20:45 60 MCG Dexamethasone Sodium Phosphate (Decadron) 20 mg STK-MED ONCE 09/10/18 12:30 09/10/18 12:31 DC Diphenhydramine HCl (Benadryl) 25 mg 1X PRN PRN 09/13/18 08:15 09/14/18 08:14 Etomidate (Amidate) 20 mg STK-MED ONCE 09/10/18 12:30 09/10/18 12:31 DC Famotidine (Pepcid Vial) 20 mg STK-MED ONCE 09/10/18 12:30 09/10/18 12:31 DC Fentanyl Citrate (Fentanyl 2ml Vial) 100 mcg STK-MED ONCE 09/10/18 14:14 09/10/18 14:15 DC Glycopyrrolate (Robinul) 1 mg STK-MED ONCE 09/10/18 13:40 09/10/18 13:41 DC Haloperidol Lactate (Haldol Inj) 5 mg PRN Q3HRS PRN 09/11/18 22:00 09/11/18 22:09 5 MG Hydromorphone HCl (Dilaudid) 0.5 mg PRN Q10MIN PRN 09/10/18 07:00 09/10/18 18:00 DC Info (CONTRAST GIVEN -- Rx MONITORING) 1 each PRN DAILY PRN 09/05/18 17:15 09/07/18 17:14 DC Info (PHARMACY MONITORING -- do not chart) 1 each PRN DAILY PRN 09/13/18 08:15 Iohexol (Omnipaque 350 Mg/ml) 90 ml 1X ONCE 09/05/18 17:15 09/05/18 17:16 DC 09/05/18 17:21 90 ML Lactobacillus Rhamnosus (Culturelle) 1 cap BID 09/06/18 21:00 09/12/18 19:59 1 CAP Lidocaine HCl (Lidocaine Pf 2% Vial) 5 ml STK-MED ONCE 09/10/18 12:30 09/10/18 12:31 DC Lidocaine HCl (Xylocaine-Mpf 1% 2ml Vial) 2 ml PRN 1X PRN 09/10/18 07:00 09/10/18 18:00 DC Lorazepam (Ativan) 2 mg PRN Q4HRS PRN 09/10/18 22:30 09/11/18 21:20 2 MG Metoprolol Succinate (Toprol Xl) 25 mg DAILY 09/11/18 09:00 09/11/18 13:11 25 MG Midazolam HCl (Versed) 2 mg STK-MED ONCE 09/10/18 12:30 09/10/18 12:31 DC Morphine Sulfate (Morphine Sulfate) 1 mg PRN Q10MIN PRN 09/10/18 07:00 09/10/18 18:00 DC Neostigmine Methylsulfate (Bloxiverz) 10 mg STK-MED ONCE 09/10/18 13:40 09/10/18 13:41 DC Ondansetron HCl (Zofran) 4 mg STK-MED ONCE 09/10/18 12:30 09/10/18 12:31 DC Pantoprazole Sodium (Protonix) 40 mg DAILYAC 09/06/18 10:15 09/13/18 05:24 40 MG Phenylephrine HCl (Michael-Synephrine Inj) 10 mg STK-MED ONCE 09/10/18 12:30 09/10/18 12:31 DC Piperacillin Sod/ Tazobactam Sod (Zosyn Per Pharmacy) 1 each PRN DAILY PRN 09/05/18 17:45 Piperacillin Sod/ Tazobactam Sod 2.25 gm/Sodium Chloride 50 ml @ 100 mls/hr Q8HRS 09/06/18 00:00 09/13/18 05:24 100 MLS/HR Polysaccharide Iron Complex (Niferex 150) 150 mg BID66 09/05/18 21:00 09/13/18 05:24 150 MG Prochlorperazine Edisylate (Compazine) 5 mg PACU PRN PRN 09/10/18 07:00 09/10/18 18:00 DC Quetiapine Fumarate (SEROquel) 25 mg HS 09/10/18 21:00 09/12/18 20:00 25 MG Ringer's Solution 1,000 ml @ 30 mls/hr Q24H 09/10/18 07:00 09/10/18 18:59 DC Rocuronium [place] (Zemuron) 50 mg STK-MED ONCE 09/10/18 12:30 09/10/18 12:31 DC Sevoflurane (Ultane) 60 ml STK-MED ONCE 09/10/18 13:58 09/10/18 13:59 DC Sodium Chloride 1,000 ml @ 400 mls/hr Q2H30M PRN 09/13/18 08:06 09/13/18 20:05 Tramadol HCl (Ultram) 50 mg PRN Q6HRS PRN 09/06/18 01:30 09/13/18 03:57 50 MG Vitamin B Complex/ Vitamin C (Massiel-Darrel) 1 tab DAILY 09/06/18 09:00 09/09/18 08:22 1 TAB Lab Laboratory Tests Test 09/13/18 09:50 White Blood Count 10.4 x10^3/uL (4.0-11.0) Red Blood Count 2.83 x10^6/uL (4.30-5.70) Hemoglobin 7.8 g/dL (13.0-17.5) Hematocrit 24.6 % (39.0-53.0) Mean Corpuscular Volume 87 fL (79-100) Mean Corpuscular Hemoglobin 28 pg (25-35) Mean Corpuscular Hemoglobin Concent 32 g/dL (31-37) Red Cell Distribution Width 17.1 % (11.5-14.5) Platelet Count 327 x10^3/uL (140-400) Neutrophils (%) (Auto) 71 % (31-73) Lymphocytes (%) (Auto) 11 % (24-48) Monocytes (%) (Auto) 9 % (0-9) Eosinophils (%) (Auto) 7 % (0-3) Basophils (%) (Auto) 1 % (0-3) Neutrophils # (Auto) 7.4 x10^3uL (1.8-7.7) Lymphocytes # (Auto) 1.2 x10^3/uL (1.0-4.8) Monocytes # (Auto) 1.0 x10^3/uL (0.0-1.1) Eosinophils # (Auto) 0.7 x10^3/uL (0.0-0.7) Basophils # (Auto) 0.1 x10^3/uL (0.0-0.2) Results All relevant outside records, renal labs, imaging studies, telemetry/EKG's were reviewed. MARIYA NORMAN MD Sep 13, 2018 12:46
[2018-09-13] MEDS: METOPROLOL SUCC 24HR ER 25 MG TAB.ER.24H. PO SCH (13:54)
[2018-09-13] MEDS: FOLIC/VIT B COMP W-C (RENAL) TABLET. PO SCH (13:54)
[2018-09-13] MEDS: LACTOBACILLUS RHAMNOSUS GG 1 CAPSULE. PO SCH ×2 (13:54→20:46)
[2018-09-13 14:52] VITALS: BP 133/63
--- NOTE | 2018-09-13 15:39 | PDOC ---
CARDIO Progress Notes Date and Time Date of Service 09/13/18 Time of Evaluation 1420 Subjective Subjective: No Chest Pain, No shortness of breath, Other (drowsy) Vitals Vitals Vital Signs Date Time Temp Pulse Resp B/P (MAP) Pulse Ox O2 Delivery O2 Flow Rate FiO2 09/13/18 14:52 98.2 125 18 133/63 (86) 97 Room Air 98.2 09/12/18 15:40 2.0 Weight Weight [ ] Input and Output Intake and Output Intake and Output 09/13/18 07:00 Intake Total 1610 ml Output Total 305 ml Balance 1305 ml Intake Oral 1610 ml Output Urine Total 280 ml Drainage Total 25 ml Laboratory Labs Laboratory Tests Test 09/13/18 09:50 White Blood Count 10.4 x10^3/uL (4.0-11.0) Red Blood Count 2.83 x10^6/uL (4.30-5.70) Hemoglobin 7.8 g/dL (13.0-17.5) Hematocrit 24.6 % (39.0-53.0) Mean Corpuscular Volume 87 fL (79-100) Mean Corpuscular Hemoglobin 28 pg (25-35) Mean Corpuscular Hemoglobin Concent 32 g/dL (31-37) Red Cell Distribution Width 17.1 % (11.5-14.5) Platelet Count 327 x10^3/uL (140-400) Neutrophils (%) (Auto) 71 % (31-73) Lymphocytes (%) (Auto) 11 % (24-48) Monocytes (%) (Auto) 9 % (0-9) Eosinophils (%) (Auto) 7 % (0-3) Basophils (%) (Auto) 1 % (0-3) Neutrophils # (Auto) 7.4 x10^3uL (1.8-7.7) Lymphocytes # (Auto) 1.2 x10^3/uL (1.0-4.8) Monocytes # (Auto) 1.0 x10^3/uL (0.0-1.1) Eosinophils # (Auto) 0.7 x10^3/uL (0.0-0.7) Basophils # (Auto) 0.1 x10^3/uL (0.0-0.2) Microbiology Micro Microbiology 09/05/18 Blood Culture - Final, Complete NO GROWTH AFTER 5 DAYS 2/18/19 Anaerobic/Aerobic Culture, Resulted Pending 09/10/18 Anaerobic Culture Result 1 (NATHAN), Resulted Pending 09/10/18 Aerobic Culture - Final, Resulted 09/10/18 Aerobic Culture Result 1 (NATHAN) - Final, Resulted 09/10/18 Gram Stain - Final, Resulted 09/10/18 Gram Stain Result 1 (NATHAN) - Final, Resulted 09/10/18 Gram Stain Result 2 (NATHAN) - Final, Resulted Review of Systems Constitutional: yes: alert, oriented Ears/Nose/Throat: Yes: no symptom reported Eyes: Yes: no symptom reported Pulmonary: Yes dyspnea Cardiovascular: Yes no symptom reported Gastrointestional: Yes: no symptom reported Genitourinary: Yes: no symptom reported Musculoskeletal: Yes: no symptom reported Skin: Yes no symptom reported Psychiatric/Neurological: Yes: no symptom reported Endocrine: Yes: no symptom reported Physical Exam HEENT: Neck Supple W Full Motion Chest: Symmetric LUNGS: Other (bibasilar crackles) Heart: S1S2, RRR (SR) Abdomen: Soft N/T Extremities: No Edema, No Calf Tenderness Neurology: alert, other (drowsy) Assessment Assessment 1. Dyspnea; multifactorial given a/c HF, plural effusion, pericardial effusion. S/P pericardial window POD#3 2. Acute on chronic diastolic/systolic CHF. better compensated 3. Moderate left pleural effusion, loculated. s/p thoracentesis. CT with purulent drainage. Infection suspected. Culture pending 4. ESRD on HD 5. Cardiomyopathy: LVEF 35% 6. Hypothyroidism: TSH 11 per PCP 7. COPD: O2 supplementation 8. Anemia: Hgb stable 9. Encephalopathy, periods of agitation. improved. remains 1:1 Recommendations Fluid off loading/management via HD as per nephrology Supportive care Ongoing antibiotic therapy Consider outpatient ischemic NOEMI Medrano APRN Sep 13, 2018 15:39
--- NOTE | 2018-09-13 16:42 | CARD ---
MR#: [id number] Date of Study: 09/12/2018 Ordering Physician: BALDO CORTEZ, Referring Physician: SHERRY ROSARIO Tech: Ludmila Rodriguez [facility] APPROVED REPORT EXAM: LIMITED Two-dimensional echocardiogram. Other Information Quality : Good INDICATION Pericardial Effusion LV Function:Systolic LEFT VENTRICLE Limited study. The left ventricle is normal size. The systolic function is moderately impaired. The L V ejectionfraction is estimated at 35%. There is moderate global hypokinesis of the left ventricle. RIGHT VENTRICLE The right ventricle is normal size. The right ventricular systolic function is normal. PERICARDIAL EFFUSION There is a trace circumferential pericardial effusion. Critical Notification Critical Value: No <Conclusion> Limited study. The left ventricle is normal size. The systolic function is moderately impaired. The LV ejectionfraction is estimated at 35%. There is moderate global hypokinesis of the left ventricle. There is a trace circumferential pericardial effusion. Signed by : Chuck Merritt MD Electronically Approved : 09/13/2018 16:42:05
--- NOTE | 2018-09-13 19:23 | PDOC ---
PROGRESS NOTES Chief Complaint Chief Complaint acute hypoxic respiratory failure at admit, improved Moderate ongoing bilateral pulmonary infiltrates and nodules ESRD on HD TTHS Anemia of ESRD Recent massive gI bleed s./p IR coiling - hgb 9.5 weakness small to mod pericardial effusion. Trops normal, pericardial effusion appears to be subacute in nature with fibrinous components. The effusion is mostly posteriorly layered. status post pericardial window on 09/10/2018 Acute on chronic systolic CHF Cardiomyopathy: EF 35% Patient has exhibiited drug seeking behaviour will continue to monitor s/p left chest tube for loculated left effusion . He also has a small right pleural thickening and effusion. There is also a small left lower lobe loculated organized effusion. The effusion is exudate , likely infected. follow all cultures Plan: continue antiboitic therapy awaiting for cultures and sensitiviies. dialysis as scheduled chest tube management as per pulmonary follow cardiolgy recommendations to optimize medical therapy for his cardiomyopathy History of Present Illness History of Present Illness Patient lying in bed in no acute distress , patient had chest tube placed yesterday, no acute events reported overnight, he undewent dialysis today. Vitals Vitals Vital Signs Date Time Temp Pulse Resp B/P (MAP) Pulse Ox O2 Delivery O2 Flow Rate FiO2 09/13/18 14:52 98.2 125 18 133/63 (86) 97 Room Air 98.2 09/12/18 15:40 2.0 Physical Exam General: mild distress Heart: Regular rate, No murmurs (muffled), Other (JVD) Lungs: Clear Abdomen: Soft, No tenderness, No hepatosplenomegaly Extremities: No clubbing, No cyanosis Skin: No significant lesion Labs LABS Laboratory Tests Test 09/13/18 09:50 White Blood Count 10.4 x10^3/uL (4.0-11.0) Red Blood Count 2.83 x10^6/uL (4.30-5.70) Hemoglobin 7.8 g/dL (13.0-17.5) Hematocrit 24.6 % (39.0-53.0) Mean Corpuscular Volume 87 fL (79-100) Mean Corpuscular Hemoglobin 28 pg (25-35) Mean Corpuscular Hemoglobin Concent 32 g/dL (31-37) Red Cell Distribution Width 17.1 % (11.5-14.5) Platelet Count 327 x10^3/uL (140-400) Neutrophils (%) (Auto) 71 % (31-73) Lymphocytes (%) (Auto) 11 % (24-48) Monocytes (%) (Auto) 9 % (0-9) Eosinophils (%) (Auto) 7 % (0-3) Basophils (%) (Auto) 1 % (0-3) Neutrophils # (Auto) 7.4 x10^3uL (1.8-7.7) Lymphocytes # (Auto) 1.2 x10^3/uL (1.0-4.8) Monocytes # (Auto) 1.0 x10^3/uL (0.0-1.1) Eosinophils # (Auto) 0.7 x10^3/uL (0.0-0.7) Basophils # (Auto) 0.1 x10^3/uL (0.0-0.2) Assessment and Plan Assessmemt and Plan Problems Medical Problems: (1) Dyspnea Status: Acute Comment Review of Relevant I have reviewed the following items allyson (where applicable) has been applied. Labs Laboratory Tests Test 09/12/18 10:17 09/13/18 09:50 White Blood Count 12.0 x10^3/uL (4.0-11.0) 10.4 x10^3/uL (4.0-11.0) Red Blood Count 2.61 x10^6/uL (4.30-5.70) 2.83 x10^6/uL (4.30-5.70) Hemoglobin 7.1 g/dL (13.0-17.5) 7.8 g/dL (13.0-17.5) Hematocrit 22.8 % (39.0-53.0) 24.6 % (39.0-53.0) Mean Corpuscular Volume 87 fL (79-100) 87 fL (79-100) Mean Corpuscular Hemoglobin 27 pg (25-35) 28 pg (25-35) Mean Corpuscular Hemoglobin Concent 31 g/dL (31-37) 32 g/dL (31-37) Red Cell Distribution Width 16.5 % (11.5-14.5) 17.1 % (11.5-14.5) Platelet Count 280 x10^3/uL (140-400) 327 x10^3/uL (140-400) Neutrophils (%) (Auto) 71 % (31-73) 71 % (31-73) Lymphocytes (%) (Auto) 9 % (24-48) 11 % (24-48) Monocytes (%) (Auto) 12 % (0-9) 9 % (0-9) Eosinophils (%) (Auto) 7 % (0-3) 7 % (0-3) Basophils (%) (Auto) 1 % (0-3) 1 % (0-3) Neutrophils # (Auto) 8.6 x10^3uL (1.8-7.7) 7.4 x10^3uL (1.8-7.7) Lymphocytes # (Auto) 1.1 x10^3/uL (1.0-4.8) 1.2 x10^3/uL (1.0-4.8) Monocytes # (Auto) 1.4 x10^3/uL (0.0-1.1) 1.0 x10^3/uL (0.0-1.1) Eosinophils # (Auto) 0.8 x10^3/uL (0.0-0.7) 0.7 x10^3/uL (0.0-0.7) Basophils # (Auto) 0.1 x10^3/uL (0.0-0.2) 0.1 x10^3/uL (0.0-0.2) Sodium Level 141 mmol/L (136-145) Potassium Level 4.3 mmol/L (3.5-5.1) Chloride Level 103 mmol/L (98-107) Carbon Dioxide Level 32 mmol/L (21-32) Anion Gap 6 (6-14) Blood Urea Nitrogen 20 mg/dL (8-26) Creatinine 4.4 mg/dL (0.7-1.3) Estimated GFR (Cockcroft-Gault) 14.1 Glucose Level 97 mg/dL (70-99) Calcium Level 7.9 mg/dL (8.5-10.1) Magnesium Level 1.8 mg/dL (1.8-2.4) Laboratory Tests Test 09/13/18 09:50 White Blood Count 10.4 x10^3/uL (4.0-11.0) Red Blood Count 2.83 x10^6/uL (4.30-5.70) Hemoglobin 7.8 g/dL (13.0-17.5) Hematocrit 24.6 % (39.0-53.0) Mean Corpuscular Volume 87 fL (79-100) Mean Corpuscular Hemoglobin 28 pg (25-35) Mean Corpuscular Hemoglobin Concent 32 g/dL (31-37) Red Cell Distribution Width 17.1 % (11.5-14.5) Platelet Count 327 x10^3/uL (140-400) Neutrophils (%) (Auto) 71 % (31-73) Lymphocytes (%) (Auto) 11 % (24-48) Monocytes (%) (Auto) 9 % (0-9) Eosinophils (%) (Auto) 7 % (0-3) Basophils (%) (Auto) 1 % (0-3) Neutrophils # (Auto) 7.4 x10^3uL (1.8-7.7) Lymphocytes # (Auto) 1.2 x10^3/uL (1.0-4.8) Monocytes # (Auto) 1.0 x10^3/uL (0.0-1.1) Eosinophils # (Auto) 0.7 x10^3/uL (0.0-0.7) Basophils # (Auto) 0.1 x10^3/uL (0.0-0.2) Microbiology 09/05/18 Blood Culture - Final, Complete NO GROWTH AFTER 5 DAYS 09/10/18 Anaerobic/Aerobic Culture, Resulted Pending 09/10/18 Anaerobic Culture Result 1 (NATHAN), Resulted Pending 09/10/18 Aerobic Culture - Final, Resulted 09/10/18 Aerobic Culture Result 1 (NATHAN) - Final, Resulted 09/10/18 Gram Stain - Final, Resulted 09/10/18 Gram Stain Result 1 (NATHAN) - Final, Resulted 09/10/18 Gram Stain Result 2 (NATHAN) - Final, Resulted Medications Current Medications Iohexol (Omnipaque 350 Mg/ml) 90 ml 1X ONCE IV Last administered on 09/05/18at 17:21; Start 09/05/18 at 17:15; Stop 09/05/18 at 17:16; Status DC Info (CONTRAST GIVEN -- Rx MONITORING) 1 each PRN DAILY PRN MC SEE COMMENTS; Start 09/05/18 at 17:15; Stop 09/07/18 at 17:14; Status DC Polysaccharide Iron Complex (Niferex 150) 150 mg BID66 PO Last administered on 09/13/18at 17:31; Start 09/05/18 at 21:00 Darbepoetin Napoleon (Aranesp) 60 mcg WEEKLYHS SQ ; Start 09/10/18 at 21:00; Status Cancel Pantoprazole Sodium (Protonix) 40 mg BIDAC PO Last administered on 09/05/18at 20 :57; Start 09/05/18 at 21:00; Stop 09/06/18 at 10:25; Status DC Vitamin B Complex/ Vitamin C (Massiel-Darrel) 1 tab DAILY PO Last administered on at 13:54; Start 09/06/18 at 09:00 Calcium Acetate (Phoslo) 667 mg TIDWMEALS PO Last administered on 09/13/18 17: 31; Start 09/06/18 at 08:00 Piperacillin Sod/ Tazobactam Sod (Zosyn Per Pharmacy) 1 each PRN DAILY PRN MC SEE COMMENTS; Start 09/05/18 at 17:45 Piperacillin Sod/ Tazobactam Sod 2.25 gm/Sodium Chloride 50 ml @ 100 mls/hr 1X ONCE IV Last administered on 09/05/18at 18:17; Start 09/05/18 at 17:45; Stop 09/05/18 at 18:14; Status DC Fentanyl Citrate (Fentanyl 2ml Vial) 50 mcg 1X ONCE IV Last administered on 18:13; Start 09/05/18 at 18:00; Stop 09/05/18 at 18:01; Status DC Piperacillin Sod/ Tazobactam Sod 2.25 gm/Sodium Chloride 50 ml @ 100 mls/hr Q8HRS IV Last administered on 09/13/18at 13:54; Start 09/06/18 at 00:00 Tramadol HCl (Ultram) 50 mg PRN Q6HRS PRN PO MODERATE PAIN Last administered on 09/13/18at 03:57; Start 09/06/18 at 01:30 Acetaminophen (Tylenol) 650 mg PRN Q6HRS PRN PO MILD PAIN Last administered on 09/08/18at 16:59; Start 09/06/18 at 01:30 Sodium Chloride 1,000 ml @ 1,000 mls/hr Q1H PRN IV hypotension; Start 09/06/18 at 08:09; Stop 09/06/18 at 14:08; Status DC Albumin Human 200 ml @ 200 mls/hr 1X PRN PRN IV Hypotension; Start 09/06/18 at 08:15; Stop 09/06/18 at 14:14; Status DC Acetaminophen (Tylenol) 500 mg 1X PRN PRN PO MILD PAIN / TEMP; Start 09/06/18 at 08:15; Stop 09/07/18 at 08:14; Status DC Diphenhydramine HCl (Benadryl) 25 mg 1X PRN PRN IV ITCHING; Start 09/06/18 at 08:15; Stop 09/07/18 at 08:14; Status DC Diphenhydramine HCl (Benadryl) 25 mg 1X PRN PRN IV ITCHING; Start 09/06/18 at 08:15; Stop 09/07/18 at 08:14; Status DC Sodium Chloride 1,000 ml @ 400 mls/hr Q2H30M PRN IV PATENCY; Start 09/06/18 at 08:09; Stop 09/06/18 at 20:08; Status DC Info (PHARMACY MONITORING -- do not chart) 1 each PRN DAILY PRN MC SEE COMMENTS ; Start 09/06/18 at 08:15; Stop 09/13/18 at 08:15; Status DC Metoprolol Succinate (Toprol Xl) 25 mg DAILY PO Last administered on 09/06/18at 14:00; Start 09/06/18 at 11:00; Stop 09/07/18 at 09:00; Status DC Pantoprazole Sodium (Protonix) 40 mg DAILYAC PO Last administered on 09/13/18at 05:24; Start 09/06/18 at 10:15 Fentanyl Citrate (Fentanyl 2ml Vial) 50 mcg 1X ONCE IV Last administered on at 11:54; Start 09/06/18 at 11:30; Stop 09/06/18 at 11:31; Status DC Darbepoetin Napoleon (Aranesp) 60 mcg WEEKLYHS SQ Last administered on 09/06/18at 20 :45; Start 09/06/18 at 21:00 Lactobacillus Rhamnosus (Culturelle) 1 cap BID PO Last administered on at 13:54; Start 09/06/18 at 21:00 Metoprolol Succinate (Toprol Xl) 50 mg DAILY PO Last administered on 09/10/18at 10:36; Start 09/07/18 at 09:00; Stop 09/11/18 at 08:06; Status DC Ondansetron HCl (Zofran) 4 mg PRN Q6HRS PRN IV NAUSEA/VOMITING; Start 09/10/18 at 07:00; Stop 09/10/18 at 18:00; Status DC Fentanyl Citrate (Fentanyl 2ml Vial) 25 mcg PRN Q5MIN PRN IV MILD PAIN; Start 09/10/18 at 07:00; Stop 09/10/18 at 18:00; Status DC Fentanyl Citrate (Fentanyl 2ml Vial) 50 mcg PRN Q5MIN PRN IV MODERATE TO SEVERE PAIN Last administered on 09/10/18at 14:33; Start 09/10/18 at 07:00; Stop 09/10/18 at 18:00; Status DC Morphine Sulfate (Morphine Sulfate) 1 mg PRN Q10MIN PRN IV SEVERE PAIN; Start 09/10/18 at 07:00; Stop 09/10/18 at 18:00; Status DC Ringer's Solution 1,000 ml @ 30 mls/hr Q24H IV ; Start 09/10/18 at 07:00; Stop 09/10/18 at 18:59; Status DC Lidocaine HCl (Xylocaine-Mpf 1% 2ml Vial) 2 ml PRN 1X PRN ID PRIOR TO IV START ; Start 09/10/18 at 07:00; Stop 09/10/18 at 18:00; Status DC Hydromorphone HCl (Dilaudid) 0.5 mg PRN Q10MIN PRN IV SEV PAIN, Second choice; Start 09/10/18 at 07:00; Stop 09/10/18 at 18:00; Status DC Prochlorperazine Edisylate (Compazine) 5 mg PACU PRN PRN IV NAUSEA, MRX1; Start 09/10/18 at 07:00; Stop 09/10/18 at 18:00; Status DC Sodium Chloride 1,000 ml @ 1,000 mls/hr Q1H PRN IV hypotension; Start 09/08/18 at 07:00; Stop 09/08/18 at 12:59; Status DC Sodium Chloride 1,000 ml @ 400 mls/hr Q2H30M PRN IV PATENCY; Start 09/08/18 at 07:00; Stop 09/08/18 at 18:59; Status DC Info (PHARMACY MONITORING -- do not chart) 1 each PRN DAILY PRN MC SEE COMMENTS ; Start 09/08/18 at 08:30; Status UNV Info (PHARMACY MONITORING -- do not chart) 1 each PRN DAILY PRN MC SEE COMMENTS ; Start 09/08/18 at 08:30; Status UNV Sodium Chloride 1,000 ml @ 1,000 mls/hr Q1H PRN IV hypotension; Start 09/10/18 at 07:00; Stop 09/10/18 at 15:00; Status DC Sodium Chloride 1,000 ml @ 400 mls/hr Q2H30M PRN IV PATENCY; Start 09/10/18 at 07:00; Stop 09/10/18 at 18:59; Status DC Info (PHARMACY MONITORING -- do not chart) 1 each PRN DAILY PRN MC SEE COMMENTS ; Start 09/10/18 at 08:00; Status UNV Info (PHARMACY MONITORING -- do not chart) 1 each PRN DAILY PRN MC SEE COMMENTS ; Start 09/10/18 at 08:00; Status UNV Cefazolin Sodium 1 gm/Sodium Chloride 500 ml @ 500 mls/hr 1X ONCE IRR Last administered on 09/10/18at 13:26; Start 09/10/18 at 12:00; Stop 09/10/18 at 12:59 ; Status DC Midazolam HCl (Versed) 2 mg STK-MED ONCE .ROUTE ; Start 09/10/18 at 12:23; Stop 09/10/18 at 12:24; Status DC Midazolam HCl (Versed) 2 mg 1X ONCE IV ; Start 09/10/18 at 12:45; Stop at 12:46; Status DC Dexamethasone Sodium Phosphate (Decadron) 20 mg STK-MED ONCE .ROUTE ; Start at 12:30; Stop 09/10/18 at 12:31; Status DC Lidocaine HCl (Lidocaine Pf 2% Vial) 5 ml STK-MED ONCE .ROUTE ; Start 09/10/18 at 12:30; Stop 09/10/18 at 12:31; Status DC Etomidate (Amidate) 20 mg STK-MED ONCE IV ; Start 09/10/18 at 12:30; Stop at 12:31; Status DC Famotidine (Pepcid Vial) 20 mg STK-MED ONCE .ROUTE ; Start 09/10/18 at 12:30; Stop 09/10/18 at 12:31; Status DC Ondansetron HCl (Zofran) 4 mg STK-MED ONCE .ROUTE ; Start 09/10/18 at 12:30; Stop 09/10/18 at 12:31; Status DC Phenylephrine HCl (Michael-Synephrine Inj) 10 mg STK-MED ONCE .ROUTE ; Start at 12:30; Stop 09/10/18 at 12:31; Status DC Rocuronium [place] (Zemuron) 50 mg STK-MED ONCE .ROUTE ; Start 09/10/18 at 12:30 ; Stop 09/10/18 at 12:31; Status DC Fentanyl Citrate (Fentanyl 2ml Vial) 100 mcg STK-MED ONCE .ROUTE ; Start at 12:30; Stop 09/10/18 at 12:31; Status DC Midazolam HCl (Versed) 2 mg STK-MED ONCE .ROUTE ; Start 09/10/18 at 12:30; Stop 09/10/18 at 12:31; Status DC Neostigmine Methylsulfate (Bloxiverz) 10 mg STK-MED ONCE .ROUTE ; Start at 13:40; Stop 09/10/18 at 13:41; Status DC Glycopyrrolate (Robinul) 1 mg STK-MED ONCE .ROUTE ; Start 09/10/18 at 13:40; Stop 09/10/18 at 13:41; Status DC Sevoflurane (Ultane) 60 ml STK-MED ONCE IH ; Start 09/10/18 at 13:58; Stop 09/10 at 13:59; Status DC Fentanyl Citrate (Fentanyl 2ml Vial) 100 mcg STK-MED ONCE .ROUTE ; Start at 14:14; Stop 09/10/18 at 14:15; Status DC Lorazepam (Ativan) 2 mg 1X ONCE PO Last administered on 09/10/18at 22:00; Start 09/10/18 at 19:45; Stop 09/10/18 at 19:49; Status DC Lorazepam (Ativan) 1 mg PRN Q6HRS PRN PO ANXIETY / AGITATION Last administered on 09/11/18at 19:44; Start 09/10/18 at 19:45 Quetiapine Fumarate (SEROquel) 25 mg HS PO Last administered on 09/12/18at 20:00 ; Start 09/10/18 at 21:00 Lorazepam (Ativan) 2 mg PRN Q4HRS PRN IV ANXIETY / AGITATION Last administered on 09/11/18at 21:20; Start 09/10/18 at 22:30 Haloperidol Lactate (Haldol Inj) 5 mg 1X ONCE IVP ; Start 09/10/18 at 23:00; Stop 09/10/18 at 23:01; Status DC Sodium Chloride 1,000 ml @ 1,000 mls/hr Q1H PRN IV hypotension; Start 09/11/18 at 07:06; Stop 09/11/18 at 13:05; Status DC Albumin Human 200 ml @ 200 mls/hr 1X PRN PRN IV Hypotension; Start 09/11/18 at 07:15; Stop 09/11/18 at 13:14; Status DC Sodium Chloride 1,000 ml @ 400 mls/hr Q2H30M PRN IV PATENCY; Start 09/11/18 at 07:06; Stop 09/11/18 at 19:05; Status DC Info (PHARMACY MONITORING -- do not chart) 1 each PRN DAILY PRN MC SEE COMMENTS ; Start 09/11/18 at 07:15; Status UNV Info (PHARMACY MONITORING -- do not chart) 1 each PRN DAILY PRN MC SEE COMMENTS ; Start 09/11/18 at 07:15; Status UNV Metoprolol Succinate (Toprol Xl) 25 mg DAILY PO Last administered on 09/13/18at 13:54; Start 09/11/18 at 09:00 Haloperidol Lactate (Haldol Inj) 5 mg PRN Q3HRS PRN IVP AGITATION 2ND CHOICE Last administered on 09/11/18at 22:09; Start 09/11/18 at 22:00 Acetaminophen/ Hydrocodone Bitart (Lortab 5/325) 1 tab 1X ONCE PO Last administered on 09/12/18at 22:03; Start 09/12/18 at 22:00; Stop 09/12/18 at 22:01 ; Status DC Sodium Chloride 1,000 ml @ 1,000 mls/hr Q1H PRN IV hypotension; Start 09/13/18 at 08:06; Stop 09/13/18 at 14:05; Status DC Albumin Human 200 ml @ 200 mls/hr 1X PRN PRN IV Hypotension; Start 09/13/18 at 08:15; Stop 09/13/18 at 14:14; Status DC Acetaminophen (Tylenol) 500 mg 1X PRN PRN PO MILD PAIN / TEMP; Start 09/13/18 at 08:15; Stop 09/14/18 at 08:14 Diphenhydramine HCl (Benadryl) 25 mg 1X PRN PRN IV ITCHING; Start 09/13/18 at 08:15; Stop 09/14/18 at 08:14 Diphenhydramine HCl (Benadryl) 25 mg 1X PRN PRN IV ITCHING; Start 09/13/18 at 08:15; Stop 09/14/18 at 08:14 Sodium Chloride 1,000 ml @ 400 mls/hr Q2H30M PRN IV PATENCY; Start 09/13/18 at 08:06; Stop 09/13/18 at 20:05 Info (PHARMACY MONITORING -- do not chart) 1 each PRN DAILY PRN MC SEE COMMENTS ; Start 09/13/18 at 08:15 Active Scripts Active [Pantoprazole] 40 MG Tablet.dr 40 Mg PO BIDAC 30 Days [Darbepoetin Napoleon In Polysorbat] 60 MCG/0.3 ML Disp.syrin 60 Mcg SQ WEEKLYHS 7 Days Poly-Iron (Iron Polysaccharides Complex) 150 Mg Capsule 150 Mg PO BID66 30 Days Vitals/I & O Vital Sign - Last 24 Hours 09/12/18 09/12/18 09/12/18 09/12/18 19:25 19:56 20:00 22:03 Temp 97.6 97.6 Pulse 92 Resp 18 B/P (MAP) 115/72 (86) Pulse Ox 94 O2 Delivery Room Air Room Air Room Air Room Air 09/12/18 09/13/18 09/13/18 09/13/18 23:00 00:05 03:06 03:57 Temp 98.0 97.6 98.0 97.6 Pulse 99 93 Resp 18 18 B/P (MAP) 105/62 (76) 119/67 (84) Pulse Ox 94 95 O2 Delivery Room Air Room Air Room Air 09/13/18 09/13/18 09/13/18 09/13/18 05:04 07:00 08:00 13:54 Temp 98.0 98.0 Pulse 85 130 Resp 18 B/P (MAP) 140/74 (96) Pulse Ox 96 O2 Delivery Room Air Room Air Room Air 09/13/18 14:52 Temp 98.2 98.2 Pulse 125 Resp 18 B/P (MAP) 133/63 (86) Pulse Ox 97 O2 Delivery Room Air Intake and Output 09/12/18 09/12/18 09/13/18 15:00 23:00 07:00 Intake Total 1410 ml 200 ml Output Total 25 ml 230 ml 50 ml Balance -25 ml 1180 ml 150 ml JAIR BARRERA MD Sep 13, 2018 19:23
[2018-09-13 19:33] VITALS: BP 109/50
[2018-09-13] MEDS: QUEtiapine 25 MG TABLET. PO SCH (20:46)
[2018-09-13] MEDS: DARBEPOETIN ALFA 60 MCG/0.3 ML DISP.SYRIN. SQ SCH (20:46)
[2018-09-13 23:21] VITALS: BP 116/49
[2018-09-14 03:05] VITALS: BP 119/56
[2018-09-14] MEDS: IRON POLYSACCHARIDE COMPLEX 150 MG CAPSULE PO SCH ×2 (05:24→16:50)
[2018-09-14] MEDS: PANTOPRAZOLE 40 MG TABLET.DR. PO SCH (05:25)
[2018-09-14] MEDS: PIPERACILLIN/TAZOBACTAM 2.25 GM in IV NORMAL SALINE 50ML 50 ML IV SCH ×3 (05:25→21:43)
[2018-09-14 07:00] VITALS: BP 123/65
--- NOTE | 2018-09-14 07:41 | PDOC ---
Infectious Disease Note Subjective Subjective Feeling well. Min pain. + appetite No F/C/S/N/V/D/SOA/Rash ROS ROS o/w neg Vital Sign Vital Signs Vital Signs Date Time Temp Pulse Resp B/P (MAP) Pulse Ox O2 Delivery O2 Flow Rate FiO2 09/14/18 03:05 98.6 98 18 119/56 (77) 94 Room Air 98.6 Physical Exam PHYSICAL EXAM CONSTITUTIONAL: He is cooperative. He is in no acute distress. He is lying in bed. HEENT: Pupils equal and reactive. He has normal conjunctivae, no hemorrhages. Oral cavity, pharynx is clear. No petechia. Dentures NECK: Supple, no JVD. LUNGS: Decreased in the bases. He has a left-sided chest tube in the posterior aspect. Appears to have some purulent looking material. HEART: S1, S2. He has a right-sided chest hemodialysis catheter without signs of complications. ABDOMEN: Flat. No guarding, no rebound. GENITOURINARY: Suprapubic [place] is in place without complications. EXTREMITIES: No clubbing, cyanosis or gross edema. No signs of any splinter hemorrhages in his toes. He does have a hammertoe in his left foot. SKIN: Warm to touch without signs of rash. NEUROLOGIC: He is nonfocal and appropriate. Affect is somewhat flat Labs Lab Laboratory Tests Test 09/13/18 09:50 White Blood Count 10.4 x10^3/uL (4.0-11.0) Red Blood Count 2.83 x10^6/uL (4.30-5.70) Hemoglobin 7.8 g/dL (13.0-17.5) Hematocrit 24.6 % (39.0-53.0) Mean Corpuscular Volume 87 fL (79-100) Mean Corpuscular Hemoglobin 28 pg (25-35) Mean Corpuscular Hemoglobin Concent 32 g/dL (31-37) Red Cell Distribution Width 17.1 % (11.5-14.5) Platelet Count 327 x10^3/uL (140-400) Neutrophils (%) (Auto) 71 % (31-73) Lymphocytes (%) (Auto) 11 % (24-48) Monocytes (%) (Auto) 9 % (0-9) Eosinophils (%) (Auto) 7 % (0-3) Basophils (%) (Auto) 1 % (0-3) Neutrophils # (Auto) 7.4 x10^3uL (1.8-7.7) Lymphocytes # (Auto) 1.2 x10^3/uL (1.0-4.8) Monocytes # (Auto) 1.0 x10^3/uL (0.0-1.1) Eosinophils # (Auto) 0.7 x10^3/uL (0.0-0.7) Basophils # (Auto) 0.1 x10^3/uL (0.0-0.2) Micro CT chest 09/12 IMPRESSION: 1. Decrease in volume of the pericardial effusion status post pericardial drain placement. 2. Patchy airspace and interstitial opacities in both lungs have worsened since 09/05/2018. The pattern suggests pulmonary edema, although a component of pneumonia cannot be excluded. 3. Ongoing moderate sized left pleural effusion with fissural extension. 4. Small residual right pleural effusion Microbiology 09/05/18 Blood Culture - Final, Complete NO GROWTH AFTER 5 DAYS 09/10/18 Anaerobic/Aerobic Culture, Resulted Pending 09/10/18 Anaerobic Culture Result 1 (NATHAN), Resulted Pending 09/10/18 Aerobic Culture - Preliminary, Resulted 09/10/18 Aerobic Culture Result 1 (NATHAN) - Preliminary, Resulted 09/10/18 Gram Stain - Final, Resulted 09/10/18 Gram Stain Result 1 (NATHAN) - Final, Resulted 09/10/18 Gram Stain Result 2 (NATHAN) - Final, Resulted Objective Assessment Pleural effusion s/p chest tube 09/12 Leukocytosis - better S/p Cardiac window 09/10 for pericardial effusion -cults neg so far H/o MSSA sepsis - treated - RADHA 07/10 neg. on Zosyn since 09/05 Recent GI bleed with GDA embolization CKD on HD Anemia Plan Plan of Care Cont Zosyn F/u labs and cults/pleural fluid eval Await Pulm f/u D/w nursing JACQUIE EARL MD Sep 14, 2018 07:41
[2018-09-14] MEDS: CALCIUM ACETATE 667 MG CAPSULE PO SCH ×3 (08:04→16:49)
[2018-09-14] MEDS: FOLIC/VIT B COMP W-C (RENAL) TABLET. PO SCH (08:05)
[2018-09-14] MEDS: METOPROLOL SUCC 24HR ER 25 MG TAB.ER.24H. PO SCH (08:05)
[2018-09-14] MEDS: LACTOBACILLUS RHAMNOSUS GG 1 CAPSULE. PO SCH ×2 (08:05→20:41)
[2018-09-14] MEDS ORDERED: MORPHINE ER 15 MG TABLET.ER PO PRN (11:00)
[2018-09-14] MEDS: MORPHINE ER 15 MG TABLET.ER PO SCH ×2 (11:21→20:42)
[2018-09-14 11:25] VITALS: BP 136/70
--- NOTE | 2018-09-14 11:43 | PDOC ---
PROGRESS NOTES Chief Complaint Chief Complaint acute hypoxic respiratory failure at admit, improved Moderate ongoing bilateral pulmonary infiltrates and nodules ESRD on HD TTHS Anemia of ESRD Recent massive gI bleed s./p IR coiling - hgb 9.5 weakness small to mod pericardial effusion. Trops normal, pericardial effusion appears to be subacute in nature with fibrinous components. The effusion is mostly posteriorly layered. status post pericardial window on 09/10/2018 Acute on chronic systolic CHF Cardiomyopathy: EF 35% Patient has exhibiited drug seeking behaviour will continue to monitor s/p left chest tube for loculated left effusion . He also has a small right pleural thickening and effusion. There is also a small left lower lobe loculated organized effusion. The effusion is exudate , likely infected. follow all cultures Plan: continue antibiotic therapy awaiting for cultures and sensitivities. dialysis as scheduled chest tube management as per pulmonary follow cardiology recommendations to optimize medical therapy for his cardiomyopathy History of Present Illness History of Present Illness Patient laying in bed in no acute distress. His mental status has definitely improved.. Likely than the infectious process versus playing a role in his outbursts of anger. Much more calm today we'll continue to follow the results of his pleural fluid analysis Vitals Vitals Vital Signs Date Time Temp Pulse Resp B/P (MAP) Pulse Ox O2 Delivery O2 Flow Rate FiO2 09/14/18 11:25 98.0 91 18 136/70 (92) 92 Room Air 98.0 Physical Exam Physical Exam CONSTITUTIONAL: He is cooperative. He is in no acute distress. He is lying in bed. HEENT: Pupils equal and reactive. He has normal conjunctivae, no hemorrhages. Oral cavity, pharynx is clear. No petechia. Dentures NECK: Supple, no JVD. LUNGS: Decreased in the bases. He has a left-sided chest tube in the posterior aspect. Appears to have some purulent looking material. HEART: S1, S2. He has a right-sided chest hemodialysis catheter without signs of complications. ABDOMEN: Flat. No guarding, no rebound. GENITOURINARY: Suprapubic Holloway is in place without complications. EXTREMITIES: No clubbing, cyanosis or gross edema. No signs of any splinter hemorrhages in his toes. He does have a hammertoe in his left foot. SKIN: Warm to touch without signs of rash. NEUROLOGIC: He is nonfocal and appropriate. Affect is somewhat flat General: mild distress Heart: Regular rate, No murmurs (muffled), Other (JVD) Lungs: Clear Abdomen: Soft, No tenderness, No hepatosplenomegaly Extremities: No clubbing, No cyanosis Skin: No significant lesion Assessment and Plan Assessmemt and Plan Problems Medical Problems: (1) Dyspnea Status: Acute Comment Review of Relevant I have reviewed the following items allyson (where applicable) has been applied. Labs Laboratory Tests Test 09/13/18 09:50 White Blood Count 10.4 x10^3/uL (4.0-11.0) Red Blood Count 2.83 x10^6/uL (4.30-5.70) Hemoglobin 7.8 g/dL (13.0-17.5) Hematocrit 24.6 % (39.0-53.0) Mean Corpuscular Volume 87 fL (79-100) Mean Corpuscular Hemoglobin 28 pg (25-35) Mean Corpuscular Hemoglobin Concent 32 g/dL (31-37) Red Cell Distribution Width 17.1 % (11.5-14.5) Platelet Count 327 x10^3/uL (140-400) Neutrophils (%) (Auto) 71 % (31-73) Lymphocytes (%) (Auto) 11 % (24-48) Monocytes (%) (Auto) 9 % (0-9) Eosinophils (%) (Auto) 7 % (0-3) Basophils (%) (Auto) 1 % (0-3) Neutrophils # (Auto) 7.4 x10^3uL (1.8-7.7) Lymphocytes # (Auto) 1.2 x10^3/uL (1.0-4.8) Monocytes # (Auto) 1.0 x10^3/uL (0.0-1.1) Eosinophils # (Auto) 0.7 x10^3/uL (0.0-0.7) Basophils # (Auto) 0.1 x10^3/uL (0.0-0.2) Microbiology 09/05/18 Blood Culture - Final, Complete NO GROWTH AFTER 5 DAYS 09/12/18 Anaerobic/Aerobic Culture, Resulted Pending 09/12/18 Anaerobic Culture Result 1 (NATHAN), Resulted Pending 09/12/18 Aerobic Culture, Resulted Pending 09/12/18 Aerobic Culture Result 1 (NATHAN), Resulted Pending 09/12/18 Gram Stain - Final, Resulted 09/12/18 Gram Stain Result 1 (NATHAN) - Final, Resulted 09/12/18 Gram Stain Result 2 (NATHAN) - Final, Resulted Medications Current Medications Iohexol (Omnipaque 350 Mg/ml) 90 ml 1X ONCE IV Last administered on 09/05/18at 17:21; Start 09/05/18 at 17:15; Stop 09/05/18 at 17:16; Status DC Info (CONTRAST GIVEN -- Rx MONITORING) 1 each PRN DAILY PRN MC SEE COMMENTS; Start 09/05/18 at 17:15; Stop 09/07/18 at 17:14; Status DC Polysaccharide Iron Complex (Niferex 150) 150 mg BID66 PO Last administered on 09/14/18at 05:24; Start 09/05/18 at 21:00 Darbepoetin Napoleon (Aranesp) 60 mcg WEEKLYHS SQ ; Start 09/10/18 at 21:00; Status Cancel Pantoprazole Sodium (Protonix) 40 mg BIDAC PO Last administered on 09/05/18at 20 :57; Start 09/05/18 at 21:00; Stop 09/06/18 at 10:25; Status DC Vitamin B Complex/ Vitamin C (Massiel-Darrel) 1 tab DAILY PO Last administered on at 08:05; Start 09/06/18 at 09:00 Calcium Acetate (Phoslo) 667 mg TIDWMEALS PO Last administered on 09/14/18at 11: 20; Start 09/06/18 at 08:00 Piperacillin Sod/ Tazobactam Sod (Zosyn Per Pharmacy) 1 each PRN DAILY PRN MC SEE COMMENTS; Start 09/05/18 at 17:45 Piperacillin Sod/ Tazobactam Sod 2.25 gm/Sodium Chloride 50 ml @ 100 mls/hr 1X ONCE IV Last administered on 09/05/18at 18:17; Start 09/05/18 at 17:45; Stop 09/05/18 at 18:14; Status DC Fentanyl Citrate (Fentanyl 2ml Vial) 50 mcg 1X ONCE IV Last administered on at 18:13; Start 09/05/18 at 18:00; Stop 09/05/18 at 18:01; Status DC Piperacillin Sod/ Tazobactam Sod 2.25 gm/Sodium Chloride 50 ml @ 100 mls/hr Q8HRS IV Last administered on 09/14/18at 05:25; Start 09/06/18 at 00:00 Tramadol HCl (Ultram) 50 mg PRN Q6HRS PRN PO MODERATE PAIN Last administered on 09/13/18at 03:57; Start 09/06/18 at 01:30 Acetaminophen (Tylenol) 650 mg PRN Q6HRS PRN PO MILD PAIN Last administered on 09/08/18at 16:59; Start 09/06/18 at 01:30 Sodium Chloride 1,000 ml @ 1,000 mls/hr Q1H PRN IV hypotension; Start 09/06/18 at 08:09; Stop 09/06/18 at 14:08; Status DC Albumin Human 200 ml @ 200 mls/hr 1X PRN PRN IV Hypotension; Start 09/06/18 at 08:15; Stop 09/06/18 at 14:14; Status DC Acetaminophen (Tylenol) 500 mg 1X PRN PRN PO MILD PAIN / TEMP; Start 09/06/18 at 08:15; Stop 09/07/18 at 08:14; Status DC Diphenhydramine HCl (Benadryl) 25 mg 1X PRN PRN IV ITCHING; Start 09/06/18 at 08:15; Stop 09/07/18 at 08:14; Status DC Diphenhydramine HCl (Benadryl) 25 mg 1X PRN PRN IV ITCHING; Start 09/06/18 at 08:15; Stop 09/07/18 at 08:14; Status DC Sodium Chloride 1,000 ml @ 400 mls/hr Q2H30M PRN IV PATENCY; Start 09/06/18 at 08:09; Stop 09/06/18 at 20:08; Status DC Info (PHARMACY MONITORING -- do not chart) 1 each PRN DAILY PRN MC SEE COMMENTS ; Start 09/06/18 at 08:15; Stop 09/13/18 at 08:15; Status DC Metoprolol Succinate (Toprol Xl) 25 mg DAILY PO Last administered on 09/06/18at 14:00; Start 09/06/18 at 11:00; Stop 09/07/18 at 09:00; Status DC Pantoprazole Sodium (Protonix) 40 mg DAILYAC PO Last administered on 09/14/18at 05:25; Start 09/06/18 at 10:15 Fentanyl Citrate (Fentanyl 2ml Vial) 50 mcg 1X ONCE IV Last administered on at 11:54; Start 09/06/18 at 11:30; Stop 09/06/18 at 11:31; Status DC Darbepoetin [place] (Aranesp) 60 mcg WEEKLYHS SQ Last administered on 09/13/18at 20 :46; Start 09/06/18 at 21:00 Lactobacillus Rhamnosus (Culturelle) 1 cap BID PO Last administered on at 08:05; Start 09/06/18 at 21:00 Metoprolol Succinate (Toprol Xl) 50 mg DAILY PO Last administered on 09/10/18at 10:36; Start 09/07/18 at 09:00; Stop 09/11/18 at 08:06; Status DC Ondansetron HCl (Zofran) 4 mg PRN Q6HRS PRN IV NAUSEA/VOMITING; Start 09/10/18 at 07:00; Stop 09/10/18 at 18:00; Status DC Fentanyl Citrate (Fentanyl 2ml Vial) 25 mcg PRN Q5MIN PRN IV MILD PAIN; Start 09/10/18 at 07:00; Stop 09/10/18 at 18:00; Status DC Fentanyl Citrate (Fentanyl 2ml Vial) 50 mcg PRN Q5MIN PRN IV MODERATE TO SEVERE PAIN Last administered on 09/10/18at 14:33; Start 09/10/18 at 07:00; Stop 09/10/18 at 18:00; Status DC Morphine Sulfate (Morphine Sulfate) 1 mg PRN Q10MIN PRN IV SEVERE PAIN; Start 09/10/18 at 07:00; Stop 09/10/18 at 18:00; Status DC Ringer's Solution 1,000 ml @ 30 mls/hr Q24H IV ; Start 09/10/18 at 07:00; Stop 09/10/18 at 18:59; Status DC Lidocaine HCl (Xylocaine-Mpf 1% 2ml Vial) 2 ml PRN 1X PRN ID PRIOR TO IV START ; Start 09/10/18 at 07:00; Stop 09/10/18 at 18:00; Status DC Hydromorphone HCl (Dilaudid) 0.5 mg PRN Q10MIN PRN IV SEV PAIN, Second choice; Start 09/10/18 at 07:00; Stop 09/10/18 at 18:00; Status DC Prochlorperazine Edisylate (Compazine) 5 mg PACU PRN PRN IV NAUSEA, MRX1; Start 09/10/18 at 07:00; Stop 09/10/18 at 18:00; Status DC Sodium Chloride 1,000 ml @ 1,000 mls/hr Q1H PRN IV hypotension; Start 09/08/18 at 07:00; Stop 09/08/18 at 12:59; Status DC Sodium Chloride 1,000 ml @ 400 mls/hr Q2H30M PRN IV PATENCY; Start 09/08/18 at 07:00; Stop 09/08/18 at 18:59; Status DC Info (PHARMACY MONITORING -- do not chart) 1 each PRN DAILY PRN MC SEE COMMENTS ; Start 09/08/18 at 08:30; Status UNV Info (PHARMACY MONITORING -- do not chart) 1 each PRN DAILY PRN MC SEE COMMENTS ; Start 09/08/18 at 08:30; Status UNV Sodium Chloride 1,000 ml @ 1,000 mls/hr Q1H PRN IV hypotension; Start 09/10/18 at 07:00; Stop 09/10/18 at 15:00; Status DC Sodium Chloride 1,000 ml @ 400 mls/hr Q2H30M PRN IV PATENCY; Start 09/10/18 at 07:00; Stop 09/10/18 at 18:59; Status DC Info (PHARMACY MONITORING -- do not chart) 1 each PRN DAILY PRN MC SEE COMMENTS ; Start 09/10/18 at 08:00; Status UNV Info (PHARMACY MONITORING -- do not chart) 1 each PRN DAILY PRN MC SEE COMMENTS ; Start 09/10/18 at 08:00; Status UNV Cefazolin Sodium 1 gm/Sodium Chloride 500 ml @ 500 mls/hr 1X ONCE IRR Last administered on 09/10/18at 13:26; Start 09/10/18 at 12:00; Stop 09/10/18 at 12:59 ; Status DC Midazolam HCl (Versed) 2 mg STK-MED ONCE .ROUTE ; Start 09/10/18 at 12:23; Stop 09/10/18 at 12:24; Status DC Midazolam HCl (Versed) 2 mg 1X ONCE IV ; Start 09/10/18 at 12:45; Stop at 12:46; Status DC Dexamethasone Sodium Phosphate (Decadron) 20 mg STK-MED ONCE .ROUTE ; Start at 12:30; Stop 09/10/18 at 12:31; Status DC Lidocaine HCl (Lidocaine Pf 2% Vial) 5 ml STK-MED ONCE .ROUTE ; Start 09/10/18 at 12:30; Stop 09/10/18 at 12:31; Status DC Etomidate (Amidate) 20 mg STK-MED ONCE IV ; Start 09/10/18 at 12:30; Stop at 12:31; Status DC Famotidine (Pepcid Vial) 20 mg STK-MED ONCE .ROUTE ; Start 09/10/18 at 12:30; Stop 09/10/18 at 12:31; Status DC Ondansetron HCl (Zofran) 4 mg STK-MED ONCE .ROUTE ; Start 09/10/18 at 12:30; Stop 09/10/18 at 12:31; Status DC Phenylephrine HCl (Michael-Synephrine Inj) 10 mg STK-MED ONCE .ROUTE ; Start at 12:30; Stop 09/10/18 at 12:31; Status DC Rocuronium [place] (Zemuron) 50 mg STK-MED ONCE .ROUTE ; Start 09/10/18 at 12:30 ; Stop 09/10/18 at 12:31; Status DC Fentanyl Citrate (Fentanyl 2ml Vial) 100 mcg STK-MED ONCE .ROUTE ; Start at 12:30; Stop 09/10/18 at 12:31; Status DC Midazolam HCl (Versed) 2 mg STK-MED ONCE .ROUTE ; Start 09/10/18 at 12:30; Stop 09/10/18 at 12:31; Status DC Neostigmine Methylsulfate (Bloxiverz) 10 mg STK-MED ONCE .ROUTE ; Start at 13:40; Stop 09/10/18 at 13:41; Status DC Glycopyrrolate (Robinul) 1 mg STK-MED ONCE .ROUTE ; Start 09/10/18 at 13:40; Stop 09/10/18 at 13:41; Status DC Sevoflurane (Ultane) 60 ml STK-MED ONCE IH ; Start 09/10/18 at 13:58; Stop 09/10 at 13:59; Status DC Fentanyl Citrate (Fentanyl 2ml Vial) 100 mcg STK-MED ONCE .ROUTE ; Start at 14:14; Stop 09/10/18 at 14:15; Status DC Lorazepam (Ativan) 2 mg 1X ONCE PO Last administered on 09/10/18at 22:00; Start 09/10/18 at 19:45; Stop 09/10/18 at 19:49; Status DC Lorazepam (Ativan) 1 mg PRN Q6HRS PRN PO ANXIETY / AGITATION Last administered on 09/11/18at 19:44; Start 09/10/18 at 19:45 Quetiapine Fumarate (SEROquel) 25 mg HS PO Last administered on 09/13/18at 20:46 ; Start 09/10/18 at 21:00 Lorazepam (Ativan) 2 mg PRN Q4HRS PRN IV ANXIETY / AGITATION Last administered on 09/11/18at 21:20; Start 09/10/18 at 22:30 Haloperidol Lactate (Haldol Inj) 5 mg 1X ONCE IVP ; Start 09/10/18 at 23:00; Stop 09/10/18 at 23:01; Status DC Sodium Chloride 1,000 ml @ 1,000 mls/hr Q1H PRN IV hypotension; Start 09/11/18 at 07:06; Stop 09/11/18 at 13:05; Status DC Albumin Human 200 ml @ 200 mls/hr 1X PRN PRN IV Hypotension; Start 09/11/18 at 07:15; Stop 09/11/18 at 13:14; Status DC Sodium Chloride 1,000 ml @ 400 mls/hr Q2H30M PRN IV PATENCY; Start 09/11/18 at 07:06; Stop 09/11/18 at 19:05; Status DC Info (PHARMACY MONITORING -- do not chart) 1 each PRN DAILY PRN MC SEE COMMENTS ; Start 09/11/18 at 07:15; Status UNV Info (PHARMACY MONITORING -- do not chart) 1 each PRN DAILY PRN MC SEE COMMENTS ; Start 09/11/18 at 07:15; Status UNV Metoprolol Succinate (Toprol Xl) 25 mg DAILY PO Last administered on 09/14/18at 08:05; Start 09/11/18 at 09:00 Haloperidol Lactate (Haldol Inj) 5 mg PRN Q3HRS PRN IVP AGITATION 2ND CHOICE Last administered on 09/11/18at 22:09; Start 09/11/18 at 22:00 Acetaminophen/ Hydrocodone Bitart (Lortab 5/325) 1 tab 1X ONCE PO Last administered on 09/12/18at 22:03; Start 09/12/18 at 22:00; Stop 09/12/18 at 22:01 ; Status DC Sodium Chloride 1,000 ml @ 1,000 mls/hr Q1H PRN IV hypotension; Start 09/13/18 at 08:06; Stop 09/13/18 at 14:05; Status DC Albumin Human 200 ml @ 200 mls/hr 1X PRN PRN IV Hypotension; Start 09/13/18 at 08:15; Stop 09/13/18 at 14:14; Status DC Acetaminophen (Tylenol) 500 mg 1X PRN PRN PO MILD PAIN / TEMP; Start 09/13/18 at 08:15; Stop 09/14/18 at 08:14; Status DC Diphenhydramine HCl (Benadryl) 25 mg 1X PRN PRN IV ITCHING; Start 09/13/18 at 08:15; Stop 09/14/18 at 08:14; Status DC Diphenhydramine HCl (Benadryl) 25 mg 1X PRN PRN IV ITCHING; Start 09/13/18 at 08:15; Stop 09/14/18 at 08:14; Status DC Sodium Chloride 1,000 ml @ 400 mls/hr Q2H30M PRN IV PATENCY; Start 09/13/18 at 08:06; Stop 09/13/18 at 20:05; Status DC Info (PHARMACY MONITORING -- do not chart) 1 each PRN DAILY PRN MC SEE COMMENTS ; Start 09/13/18 at 08:15 Morphine Sulfate (Ms Contin) 10 mg BID PRN PO PAIN; Start 09/14/18 at 11:00; Stop 09/14/18 at 11:09; Status DC Morphine Sulfate (Ms Contin) 15 mg BID PO Last administered on 09/14/18at 11:21 ; Start 09/14/18 at 11:30 Active Scripts Active [Pantoprazole] 40 MG Tablet.dr 40 Mg PO BIDAC 30 Days [Darbepoetin Napoleon In Polysorbat] 60 MCG/0.3 ML Disp.syrin 60 Mcg SQ WEEKLYHS 7 Days Poly-Iron (Iron Polysaccharides Complex) 150 Mg Capsule 150 Mg PO BID66 30 Days Vitals/I & O Vital Sign - Last 24 Hours 09/13/18 09/13/18 09/13/18 09/13/18 13:54 14:52 19:33 19:45 Temp 98.2 97.9 98.2 97.9 Pulse 130 125 92 Resp B/P (MAP) 133/63 (86) 109/50 (69) Pulse Ox 97 94 O2 Delivery Room Air Room Air Room Air 09/13/18 09/14/18 09/14/18 09/14/18 23:21 03:05 07:00 08:00 Temp 98.8 98.6 98.1 98.8 98.6 98.1 Pulse 100 98 92 Resp 18 18 18 B/P (MAP) 116/49 (71) 119/56 (77) 123/65 (84) Pulse Ox 95 94 95 O2 Delivery Room Air Room Air Room Air Room Air 09/14/18 09/14/18 09/14/18 08:05 11:21 11:25 Temp 98.0 98.0 Pulse 92 91 Resp 18 B/P (MAP) 123/65 136/70 (92) Pulse Ox 95 92 O2 Delivery Room Air Room Air Intake and Output 09/13/18 09/13/18 09/14/18 15:00 23:00 07:00 Intake Total 220 ml 460 ml 340 ml Output Total 30 ml 335 ml Balance 220 ml 430 ml 5 ml JAIR BARRERA MD Sep 14, 2018 11:43
--- NOTE | 2018-09-14 11:51 | NUR ---
SS following up with discharge planning. Pt will discharge to home with mother when ready. No discharge needs noted at this time. Pt will need chest tube removed prior to discharge.
--- NOTE | 2018-09-14 12:17 | PDOC ---
SUBJECTIVE ROS Sitting up in bed, No complaints Talking on phone OBJECTIVE Vital Signs Vital Signs Date Time Temp Pulse Resp B/P (MAP) Pulse Ox O2 Delivery O2 Flow Rate FiO2 09/14/18 11:25 98.0 91 18 136/70 (92) 92 Room Air 98.0 I & 0 Intake and Output 09/14/18 06:59 Intake Total 1020 ml Output Total 365 ml Balance 655 ml Intake Oral 920 ml IV Total 100 ml Output Urine Total 300 ml Chest Tube Drainage Total 65 ml PHYSICAL EXAM Physical Exam GENERAL- NAD HEENT: OM moist NECK: Supple, LUNGS:left-sided chest tube HEART: S1, S2. ABDOMEN: Soft, NT GENITOURINARY: Suprapubic Holloway +. EXTREMITIES:No edema. SKIN: No rash NEUROLOGIC: Grossly Normal DIAGNOSIS/ASSESSMENT Assessment & Plan ESRD- On HD TTS at [facility] Etiology- Bilat Hydronephrosis Multiple Hospitalizations No indication for HD today Pericardial effusion without clinical tamponade s/p pericardial window 09/10 - drained approximately 400 mls of cloudy fluid from the pericardial space. Anemia- Multiple Hospitalizations Hgb has been as low as 2.9 Dx with GI bleed with GDA embolization On CLIFF Pleural effusion s/p chest tube 09/12 H/o MSSA sepsis - treated - RADHA 07/10 neg. on Zosyn since 09/05 COMMENT/RELEVANT DATA Meds Current Medications Medications (Trade) Dose Ordered Sig/Kevin Start Time Stop Time Status Last Admin Dose Admin Acetaminophen (Tylenol) 500 mg 1X PRN PRN 09/13/18 08:15 09/14/18 08:14 DC Acetaminophen/ Hydrocodone Bitart (Lortab 5/325) 1 tab 1X ONCE 09/12/18 22:00 09/12/18 22:01 DC 09/12/18 22:03 1 TAB Albumin Human 200 ml @ 200 mls/hr 1X PRN PRN 09/13/18 08:15 09/13/18 14:14 DC Calcium Acetate (Phoslo) 667 mg TIDWMEALS 09/06/18 08:00 09/14/18 11:20 667 MG Cefazolin Sodium 1 gm/Sodium Chloride 500 ml @ 500 mls/hr 1X ONCE 09/10/18 12:00 09/10/18 12:59 DC 09/10/18 13:26 Darbepoetin Napoleon (Aranesp) 60 mcg WEEKLYHS 09/06/18 21:00 09/13/18 20:46 60 MCG Dexamethasone Sodium Phosphate (Decadron) 20 mg STK-MED ONCE 09/10/18 12:30 09/10/18 12:31 DC Diphenhydramine HCl (Benadryl) 25 mg 1X PRN PRN 09/13/18 08:15 09/14/18 08:14 DC Etomidate (Amidate) 20 mg STK-MED ONCE 09/10/18 12:30 09/10/18 12:31 DC Famotidine (Pepcid Vial) 20 mg STK-MED ONCE 09/10/18 12:30 09/10/18 12:31 DC Fentanyl Citrate (Fentanyl 2ml Vial) 100 mcg STK-MED ONCE 09/10/18 14:14 09/10/18 14:15 DC Glycopyrrolate (Robinul) 1 mg STK-MED ONCE 09/10/18 13:40 09/10/18 13:41 DC Haloperidol Lactate (Haldol Inj) 5 mg PRN Q3HRS PRN 09/11/18 22:00 09/11/18 22:09 5 MG Hydromorphone HCl (Dilaudid) 0.5 mg PRN Q10MIN PRN 09/10/18 07:00 09/10/18 18:00 DC Info (CONTRAST GIVEN -- Rx MONITORING) 1 each PRN DAILY PRN 09/05/18 17:15 09/07/18 17:14 DC Info (PHARMACY MONITORING -- do not chart) 1 each PRN DAILY PRN 09/13/18 08:15 Iohexol (Omnipaque 350 Mg/ml) 90 ml 1X ONCE 09/05/18 17:15 09/05/18 17:16 DC 09/05/18 17:21 90 ML Lactobacillus Rhamnosus (Culturelle) 1 cap BID 09/06/18 21:00 09/14/18 08:05 1 CAP Lidocaine HCl (Lidocaine Pf 2% Vial) 5 ml STK-MED ONCE 09/10/18 12:30 09/10/18 12:31 DC Lidocaine HCl (Xylocaine-Mpf 1% 2ml Vial) 2 ml PRN 1X PRN 09/10/18 07:00 09/10/18 18:00 DC Lorazepam (Ativan) 2 mg PRN Q4HRS PRN 09/10/18 22:30 09/11/18 21:20 2 MG Metoprolol Succinate (Toprol Xl) 25 mg DAILY 09/11/18 09:00 09/14/18 08:05 25 MG Midazolam HCl (Versed) 2 mg STK-MED ONCE 09/10/18 12:30 09/10/18 12:31 DC Morphine Sulfate (Morphine Sulfate) 1 mg PRN Q10MIN PRN 09/10/18 07:00 09/10/18 18:00 DC Morphine Sulfate (Ms Contin) 15 mg BID 09/14/18 11:30 09/14/18 11:21 15 MG Neostigmine Methylsulfate (Bloxiverz) 10 mg STK-MED ONCE 09/10/18 13:40 09/10/18 13:41 DC Ondansetron HCl (Zofran) 4 mg STK-MED ONCE 09/10/18 12:30 09/10/18 12:31 DC Pantoprazole Sodium (Protonix) 40 mg DAILYAC 09/06/18 10:15 09/14/18 05:25 40 MG Phenylephrine HCl (Michael-Synephrine Inj) 10 mg STK-MED ONCE 09/10/18 12:30 09/10/18 12:31 DC Piperacillin Sod/ Tazobactam Sod (Zosyn Per Pharmacy) 1 each PRN DAILY PRN 09/05/18 17:45 Piperacillin Sod/ Tazobactam Sod 2.25 gm/Sodium Chloride 50 ml @ 100 mls/hr Q8HRS 09/06/18 00:00 09/14/18 05:25 100 MLS/HR Polysaccharide Iron Complex (Niferex 150) 150 mg BID66 09/05/18 21:00 09/14/18 05:24 150 MG Prochlorperazine Edisylate (Compazine) 5 mg PACU PRN PRN 09/10/18 07:00 09/10/18 18:00 DC Quetiapine Fumarate (SEROquel) 25 mg HS 09/10/18 21:00 09/13/18 20:46 25 MG Ringer's Solution 1,000 ml @ 30 mls/hr Q24H 09/10/18 07:00 09/10/18 18:59 DC Rocuronium [place] (Zemuron) 50 mg STK-MED ONCE 09/10/18 12:30 09/10/18 12:31 DC Sevoflurane (Ultane) 60 ml STK-MED ONCE 09/10/18 13:58 09/10/18 13:59 DC Sodium Chloride 1,000 ml @ 400 mls/hr Q2H30M PRN 09/13/18 08:06 09/13/18 20:05 DC Tramadol HCl (Ultram) 50 mg PRN Q6HRS PRN 09/06/18 01:30 09/13/18 03:57 50 MG Vitamin B Complex/ Vitamin C (Masseil-Darrel) 1 tab DAILY 09/06/18 09:00 09/14/18 08:05 1 TAB Results All relevant outside records, renal labs, imaging studies, telemetry/EKG's were reviewed Other 1. Improved aeration of the left lung status post left pleural tube placement. 2. Unchanged right chest pleural/parenchymal opacities. MARIYA NORMAN MD Sep 14, 2018 12:17
--- NOTE | 2018-09-14 12:34 | PDOC ---
PULMONARY PROGRESS NOTES Subjective no soa s/p left chest tube for purulent effusion Vitals Vital Signs Date Time Temp Pulse Resp B/P (MAP) Pulse Ox O2 Delivery O2 Flow Rate FiO2 09/14/18 11:25 98.0 91 18 136/70 (92) 92 Room Air 98.0 General: Alert, No acute distress HEENT: Other Lungs: Clear Cardiovascular: S1, S2 Abdomen: Soft, Non-tender Neuro Exam: Alert Extremities: No Edema Skin: Warm Labs Laboratory Tests Test 09/13/18 09:50 White Blood Count 10.4 x10^3/uL (4.0-11.0) Red Blood Count 2.83 x10^6/uL (4.30-5.70) Hemoglobin 7.8 g/dL (13.0-17.5) Hematocrit 24.6 % (39.0-53.0) Mean Corpuscular Volume 87 fL (79-100) Mean Corpuscular Hemoglobin 28 pg (25-35) Mean Corpuscular Hemoglobin Concent 32 g/dL (31-37) Red Cell Distribution Width 17.1 % (11.5-14.5) Platelet Count 327 x10^3/uL (140-400) Neutrophils (%) (Auto) 71 % (31-73) Lymphocytes (%) (Auto) 11 % (24-48) Monocytes (%) (Auto) 9 % (0-9) Eosinophils (%) (Auto) 7 % (0-3) Basophils (%) (Auto) 1 % (0-3) Neutrophils # (Auto) 7.4 x10^3uL (1.8-7.7) Lymphocytes # (Auto) 1.2 x10^3/uL (1.0-4.8) Monocytes # (Auto) 1.0 x10^3/uL (0.0-1.1) Eosinophils # (Auto) 0.7 x10^3/uL (0.0-0.7) Basophils # (Auto) 0.1 x10^3/uL (0.0-0.2) Medications Active Scripts Medications Dose Route/Sig Max Daily Dose Days Date Category [Pantoprazole] 40 MG Tablet.dr 40 Mg PO BIDAC 30 08/25/18 Rx [Darbepoetin [place] In Polysorbat] 60 MCG/0.3 ML Disp.syrin 60 Mcg SQ WEEKLYHS 7 08/25/18 Rx Poly-Iron (Iron Polysaccharides Complex) 150 Mg Capsule 150 Mg PO BID66 30 08/25/18 Rx Impression . 1. Acute recurrent hypoxic respiratory failure secondary to multifactorial etiologies including recent subacute pericardial effusion with early tamponade physiology, underlying chronic obstructive pulmonary disease, anemia, bilateral pleural effusions more loculated on the left and encephalopathy. Currently on 2 liters of oxygen. 2. Abnormal CT chest with persistent loculated left-sided pleural effusion. s/ p left chest tube. 3. Moderate to large pericardial effusion, status post pericardial window. 4. History of small pulmonary embolism last month, which subsequently resolved. He was not treated as at that time he was having severe anemia and gastrointestinal bleed. No DVT/ No history of inferior vena cava filter. 5. End-stage renal disease, on hemodialysis. 6. Underlying chronic obstructive pulmonary disease. 7. Low-grade fever, which has responded to current antibiotic. 8. H/O Cavitary nodules, likely related to staph infection, overall improved. Plan . 1. s/p left chest tube for loculated left effusion MINIMAL CHEST TUBE OUTPUT/ CXR better The effusion is exudate , likely infected. follow all cultures, so far no organism. May dc tube in 24 hrs 2. Continue to monitor pericardial drain per Thoracic Surgery. 3. Continue present oxygen. 4. Continue antibiotic Zosyn. 5. Follow all cultures including pericardium cultures. 6. Follow ID recommendation. 7. Follow Cardiology recommendation regarding recent decline in his ejection fraction of 30%. 8. Discussed with RN. RUDI DAVALOS MD Sep 14, 2018 12:34
--- NOTE | 2018-09-14 14:42 | RAD ---
Portable chest, 09/14/2018: HISTORY: Pleural effusion Comparison is made to yesterday's study. The right jugular dialysis type catheter and left pleural drain are unchanged in positions. The heart size is unchanged. There is an unchanged opacity medially in the left base compatible with atelectasis/infiltrate and possibly residual pleural fluid. Minimal left perihilar infiltrate has partially cleared. The right chest pleural/parenchymal opacities are unchanged. There is no evidence of pneumothorax. No new abnormality is detected. IMPRESSION: 1. Slightly improved left perihilar infiltrates. 2. Unchanged right pleural-parenchymal opacities. Electronically signed by: Jt Reyes MD (09/14/2018 2:39 PM) [facility]
[2018-09-14 14:48] VITALS: BP 124/62
[2018-09-14 19:15] VITALS: BP 126/71
[2018-09-14] MEDS: QUEtiapine 25 MG TABLET. PO SCH (20:41)
[2018-09-14 23:00] VITALS: BP 122/68
[2018-09-15 03:45] VITALS: BP 120/69
[2018-09-15] MEDS: IRON POLYSACCHARIDE COMPLEX 150 MG CAPSULE PO SCH ×2 (06:20→17:27)
[2018-09-15] MEDS: PIPERACILLIN/TAZOBACTAM 2.25 GM in IV NORMAL SALINE 50ML 50 ML IV SCH ×3 (06:20→21:46)
--- NOTE | 2018-09-15 06:48 | PDOC ---
PULMONARY PROGRESS NOTES Subjective no sob, cough, or pain s/p left chest tube for purulent effusion Vitals Vital Signs Date Time Temp Pulse Resp B/P (MAP) Pulse Ox O2 Delivery O2 Flow Rate FiO2 09/15/18 03:45 98.1 90 18 120/69 (86) 95 Room Air 98.1 09/14/18 19:15 2.0 ROS: No Nausea, No Chest Pain General: Alert, No acute distress HEENT: Other Lungs: Crackles, Other (l ct , dull left base, ) Cardiovascular: S1, S2 Abdomen: Soft, Non-tender Neuro Exam: Alert Extremities: No Edema Skin: Warm Labs Laboratory Tests Test 09/13/18 09:50 White Blood Count 10.4 x10^3/uL (4.0-11.0) Red Blood Count 2.83 x10^6/uL (4.30-5.70) Hemoglobin 7.8 g/dL (13.0-17.5) Hematocrit 24.6 % (39.0-53.0) Mean Corpuscular Volume 87 fL (79-100) Mean Corpuscular Hemoglobin 28 pg (25-35) Mean Corpuscular Hemoglobin Concent 32 g/dL (31-37) Red Cell Distribution Width 17.1 % (11.5-14.5) Platelet Count 327 x10^3/uL (140-400) Neutrophils (%) (Auto) 71 % (31-73) Lymphocytes (%) (Auto) 11 % (24-48) Monocytes (%) (Auto) 9 % (0-9) Eosinophils (%) (Auto) 7 % (0-3) Basophils (%) (Auto) 1 % (0-3) Neutrophils # (Auto) 7.4 x10^3uL (1.8-7.7) Lymphocytes # (Auto) 1.2 x10^3/uL (1.0-4.8) Monocytes # (Auto) 1.0 x10^3/uL (0.0-1.1) Eosinophils # (Auto) 0.7 x10^3/uL (0.0-0.7) Basophils # (Auto) 0.1 x10^3/uL (0.0-0.2) Medications Active Scripts Medications Dose Route/Sig Max Daily Dose Days Date Category [Pantoprazole] 40 MG Tablet.dr 40 Mg PO BIDAC 30 08/25/18 Rx [Darbepoetin Napoleon In Polysorbat] 60 MCG/0.3 ML Disp.syrin 60 Mcg SQ WEEKLYHS 7 08/25/18 Rx Poly-Iron (Iron Polysaccharides Complex) 150 Mg Capsule 150 Mg PO BID66 30 08/25/18 Rx Impression . 1. Acute recurrent hypoxic respiratory failure secondary to multifactorial etiologies including recent subacute pericardial effusion with early tamponade physiology, underlying chronic obstructive pulmonary disease, anemia, bilateral pleural effusions more loculated on the left and encephalopathy. 2. Abnormal CT chest with persistent loculated left-sided pleural effusion. s/ p left chest tube. 3. Moderate to large pericardial effusion, status post pericardial window. 4. History of small pulmonary embolism last month, which subsequently resolved. He was not treated as at that time he was having severe anemia and gastrointestinal bleed. No DVT/ No history of inferior vena cava filter. 5. End-stage renal disease, on hemodialysis. 6. Underlying chronic obstructive pulmonary disease. 7. Low-grade fever, which has responded to current antibiotic. 8. H/O Cavitary nodules, likely related to staph infection, overall improved. Plan . 1. s/p left chest tube for loculated left effusion MINIMAL CHEST TUBE OUTPUT/ will do cxr, may be able to dc ct today...cxr reviewed, will dc ct...done. tolerated well, will do cxr, will review 2. s/p pericardial per Thoracic Surgery. 3. 02 titration 4. Continue antibiotic Zosyn, per id. 5. Follow all cultures including pericardium cultures. 6. Follow ID recommendation. 7. Follow Cardiology recommendation regarding recent decline in his ejection fraction of 30%. 8. Discussed with RN, pt. SHAMEKA YOON MD Sep 15, 2018 06:48
[2018-09-15 07:00] VITALS: BP 124/77
[2018-09-15] MEDS ORDERED: IV NORMAL SALINE 1000ML BAG 1,000 ML IV PRN ×2 (07:14)
[2018-09-15] MEDS ORDERED: ALBUMIN HUMAN 25% 200 ML IV PRN (07:15)
[2018-09-15] MEDS ORDERED: DIALYSIS PATIENT. MC PRN ×2 (07:15)
[2018-09-15] MEDS ORDERED: 0.9 % SODIUM CHLORIDE 10 ML DISP.SYRIN. IV PRN (07:15)
[2018-09-15] MEDS: CALCIUM ACETATE 667 MG CAPSULE PO SCH ×3 (08:24→17:27)
--- NOTE | 2018-09-15 08:36 | RAD ---
Indication:CHEST TUBE, PLEURAL EFFUSION TECHNIQUE:Portable AP chest X-ray COMPARISON:09/14/2018 FINDINGS: Heart is moderately enlarged in size. There is mediastinal shift to the right side. Stable position of right-sided central venous catheter and left chest tube. Diffuse bilateral interstitial opacities are seen. No pneumothorax or large pleural effusion. Visualized bony thorax is within normal limits. IMPRESSION: 1. Stable position of lines and tubes. No pneumothorax. 2. Diffuse bilateral interstitial opacities may be secondary to interstitial pulmonary edema. 3. No large pleural effusion. Trace right pleural effusion. Electronically signed by: Mo Bradford DO (09/15/2018 8:33 AM) [facility]
--- NOTE | 2018-09-15 09:13 | PDOC ---
Infectious Disease Note Subjective Subjective Feeling alright this morning Denies F/C/SOA/CP/N/V/D ROS ROS per HPI otherwise neg Vital Sign Vital Signs Vital Signs Date Time Temp Pulse Resp B/P (MAP) Pulse Ox O2 Delivery O2 Flow Rate FiO2 09/15/18 07:25 Room Air 2.0 09/15/18 07:00 97.8 87 18 124/77 (93) 95 97.8 Physical Exam PHYSICAL EXAM GENERAL: Propped up in bed, alert, NAD HEENT: Pupils equal and reactive. He has normal conjunctivae, no hemorrhages. Oral cavity, pharynx is clear. No petechia. Dentures in place NECK: Supple, no JVD. LUNGS: Decreased in the bases. L CT HEART: S1, S2. ABDOMEN: Flat. No guarding, no rebound. GENITOURINARY: Suprapubic [place] is in place without complications. EXTREMITIES: No clubbing, cyanosis or gross edema. No signs of any splinter hemorrhages in his toes. He does have a hammertoe in his left foot. SKIN: Warm to touch without signs of rash. NEUROLOGIC: He is nonfocal and appropriate. Affect is somewhat flat Right-sided chest hemodialysis catheter without signs of complications. Labs Lab IMPRESSION: 1. Stable position of lines and tubes. No pneumothorax. 2. Diffuse bilateral interstitial opacities may be secondary to interstitial pulmonary edema. 3. No large pleural effusion. Trace right pleural effusion. Micro Microbiology 09/05/18 Blood Culture - Final, Complete NO GROWTH AFTER 5 DAYS 09/12/18 Anaerobic/Aerobic Culture, Resulted Pending 09/12/18 Anaerobic Culture Result 1 (NATHAN), Resulted Pending 09/12/18 Aerobic Culture, Resulted Pending 09/12/18 Aerobic Culture Result 1 (NATHAN), Resulted Pending 09/12/18 Gram Stain - Final, Resulted 09/12/18 Gram Stain Result 1 (NATHAN) - Final, Resulted 09/12/18 Gram Stain Result 2 (NATHAN) - Final, Resulted Objective Assessment Pleural effusion s/p chest tube 09/12 cx NGTD -Fluid analysis: glucose 77, T protein 4.0, LDH 1568 Leukocytosis - better S/p Cardiac window 09/10 for pericardial effusion -cults neg so far H/o MSSA sepsis - treated - RADHA 07/10 neg. on Zosyn since 09/05 Recent GI bleed with GDA embolization CKD on HD Anemia Plan Plan of Care Cont Zosyn f/u cultures am labs Probiotics D/w nursing Now with Fever and rigors Add vanc/Micafungin CBC in am F/u labs Attending Co-Sign Attending Co-Sign The patient was seen and interviewed as well as examined at the bedside. The chart was reviewed. The case was discussed. Agree with the plan of care. ABE LOUISE APRN Sep 15, 2018 09:13 JACQUIE EARL MD Sep 15, 2018 13:23
--- NOTE | 2018-09-15 11:20 | PDOC ---
Dialysis Progress Note Dialysis Note Dialysis Note Seen on Hemodialysis, tolerating treatment Well sofar Vitals on Hemodialysis: 135/75 88 afeb General Appearance: asleep on HD Neck: No JVD or JVP Chest: CTA Nathaniel Heart: S1 S2 Abdomen - Soft NTND Extremities - No Edema ESRD: Dialysis as below F 180 NR 3.5 Hrs 3 K 2.5 Ca 140 Na 35 HC03 Qb 350 + Qd 500+ Heparin 0 Units Uf 2.5 Kgs or to dry weight as tolerated May give 25-50 gms of 25% Albumin if needed to maintain Hemodynamic stability Treatment plan reviewed and discussed with strategy lead Vitals Vital Signs Vital Signs Date Time Temp Pulse Resp B/P (MAP) Pulse Ox O2 Delivery O2 Flow Rate FiO2 09/15/18 07:25 Room Air 2.0 09/15/18 07:00 97.8 87 18 124/77 (93) 95 97.8 Assessment Assessment Problems Medical Problems: (1) Dyspnea Status: Acute Plan Plan of Care Problems Medical Problems: (1) Dyspnea Status: Acute MITCH VALERIO MD Sep 15, 2018 11:20
[2018-09-15] MEDS ORDERED: VANCOMYCIN 1.25 GM in IV NORMAL SALINE 250ML 250 ML IV ONE (12:30)
[2018-09-15 12:35] VITALS: BP 143/78
[2018-09-15] MEDS: ACETAMINOPHEN 325 MG TABLET. PO PRN (12:56)
[2018-09-15] MEDS: PANTOPRAZOLE 40 MG TABLET.DR. PO SCH (12:56)
[2018-09-15] MEDS: METOPROLOL SUCC 24HR ER 25 MG TAB.ER.24H. PO SCH (12:57)
[2018-09-15] MEDS: FOLIC/VIT B COMP W-C (RENAL) TABLET. PO SCH (12:57)
[2018-09-15] MEDS: LACTOBACILLUS RHAMNOSUS GG 1 CAPSULE. PO SCH ×2 (12:57→21:38)
[2018-09-15] MEDS: MORPHINE ER 15 MG TABLET.ER PO SCH ×2 (12:58→21:39)
--- NOTE | 2018-09-15 13:42 | RAD ---
Indication:POST CHEST TUBE REMOVAL TECHNIQUE:Portable AP chest X-ray COMPARISON:Study from the same day earlier FINDINGS: Stable position of the patient to the right side. Heart is normal in size. Interval removal of left chest tube. Left lung is clear. No pneumothorax. No pleural effusion. Visualized bony thorax is within normal limits. IMPRESSION: Portable of left chest tube without pneumothorax. Electronically signed by: Mo Bradford DO (09/15/2018 1:39 PM) [facility]
[2018-09-15] MEDS: MICAFUNGIN 100 MG in IV DEXTROSE 5% 100ML 100 ML IV SCH (14:47)
[2018-09-15] MEDS: VANCOMYCIN PER PHARMACY MC PRN (14:59)
[2018-09-15 15:00] VITALS: BP 119/66
--- NOTE | 2018-09-15 15:32 | PDOC ---
PROGRESS NOTES Chief Complaint Chief Complaint acute hypoxic respiratory failure at admit, resolved Moderate ongoing bilateral pulmonary infiltrates and nodules s/p left chest tube for loculated left effusion . He also has a small right pleural thickening and effusion. There is also a small left lower lobe loculated organized effusion. The effusion is exudate , ESRD on HD TTHS Anemia of ESRD Recent massive gI bleed s./p IR coiling - hgb 9.5 weakness small to mod pericardial effusion. Trops normal, pericardial effusion appears to be subacute in nature with fibrinous components. The effusion is mostly posteriorly layered. status post pericardial window on 09/10/2018 Acute on chronic systolic CHF Cardiomyopathy: EF 35% Patient has exhibiited drug seeking behaviour will continue to monitor CRBSI? will do new set of blood cultures from the dialysis catheter. follow all cultures Plan: continue antibiotic therapy awaiting for cultures and sensitivities. will add Vancomycin dialysis as scheduled follow cardiology recommendations to optimize medical therapy for his cardiomyopathy History of Present Illness History of Present Illness Patient experiencing chills today and a quantified fever during dialysis off about 101 Fahrenheit, patient gotten his pigtail chest tube removed earlier in the day. Suspicion for line infection given his tunnel catheter for dialysis. We 'll do blood cultures and follow Vitals Vitals Vital Signs Date Time Temp Pulse Resp B/P (MAP) Pulse Ox O2 Delivery O2 Flow Rate FiO2 09/15/18 12:58 95 Room Air 09/15/18 12:57 148 124/77 09/15/18 12:35 100.4 22 100.4 09/15/18 07:25 2.0 Physical Exam Physical Exam GENERAL: Propped up in bed, alert, NAD HEENT: Pupils equal and reactive. He has normal conjunctivae, no hemorrhages. Oral cavity, pharynx is clear. No petechia. Dentures in place NECK: Supple, no JVD. LUNGS: Decreased in the bases. L CT HEART: S1, S2. ABDOMEN: Flat. No guarding, no rebound. GENITOURINARY: Suprapubic Holloway is in place without complications. EXTREMITIES: No clubbing, cyanosis or gross edema. No signs of any splinter hemorrhages in his toes. He does have a hammertoe in his left foot. SKIN: Warm to touch without signs of rash. NEUROLOGIC: He is nonfocal and appropriate. Affect is somewhat flat Right-sided chest hemodialysis catheter without signs of complications. General: mild distress Heart: Regular rate, No murmurs (muffled), Other (JVD) Lungs: Crackles, Other (l ct , dull left base, ) Abdomen: Soft, No tenderness, No hepatosplenomegaly Extremities: No clubbing, No cyanosis Skin: No significant lesion Review of Systems Review of Systems Pertinent as per history of present illness otherwise 14 point review of system is negative Assessment and Plan Assessmemt and Plan Problems Medical Problems: (1) Dyspnea Status: Acute Comment Review of Relevant I have reviewed the following items allyson (where applicable) has been applied. Labs Microbiology 09/05/18 Blood Culture - Final, Complete NO GROWTH AFTER 5 DAYS 09/12/18 Anaerobic/Aerobic Culture, Resulted Pending 09/12/18 Anaerobic Culture Result 1 (NATHAN), Resulted Pending 09/12/18 Aerobic Culture, Resulted Pending 09/12/18 Aerobic Culture Result 1 (NATHAN), Resulted Pending 09/12/18 Gram Stain - Final, Resulted 09/12/18 Gram Stain Result 1 (NATHAN) - Final, Resulted 09/12/18 Gram Stain Result 2 (NATHAN) - Final, Resulted Medications Current Medications Iohexol (Omnipaque 350 Mg/ml) 90 ml 1X ONCE IV Last administered on 09/05/18at 17:21; Start 09/05/18 at 17:15; Stop 09/05/18 at 17:16; Status DC Info (CONTRAST GIVEN -- Rx MONITORING) 1 each PRN DAILY PRN MC SEE COMMENTS; Start 09/05/18 at 17:15; Stop 09/07/18 at 17:14; Status DC Polysaccharide Iron Complex (Niferex 150) 150 mg BID66 PO Last administered on 09/15/18at 06:20; Start 09/05/18 at 21:00 Darbepoetin Napoleon (Aranesp) 60 mcg WEEKLYHS SQ ; Start 09/10/18 at 21:00; Status Cancel Pantoprazole Sodium (Protonix) 40 mg BIDAC PO Last administered on 09/05/18at 20 :57; Start 09/05/18 at 21:00; Stop 09/06/18 at 10:25; Status DC Vitamin B Complex/ Vitamin C (Massiel-Darrel) 1 tab DAILY PO Last administered on at 12:57; Start 09/06/18 at 09:00 Calcium Acetate (Phoslo) 667 mg TIDWMEALS PO Last administered on 09/15/18at 12: 57; Start 09/06/18 at 08:00 Piperacillin Sod/ Tazobactam Sod (Zosyn Per Pharmacy) 1 each PRN DAILY PRN MC SEE COMMENTS; Start 09/05/18 at 17:45 Piperacillin Sod/ Tazobactam Sod 2.25 gm/Sodium Chloride 50 ml @ 100 mls/hr 1X ONCE IV Last administered on 09/05/18at 18:17; Start 09/05/18 at 17:45; Stop 09/05/18 at 18:14; Status DC Fentanyl Citrate (Fentanyl 2ml Vial) 50 mcg 1X ONCE IV Last administered on at 18:13; Start 09/05/18 at 18:00; Stop 09/05/18 at 18:01; Status DC Piperacillin Sod/ Tazobactam Sod 2.25 gm/Sodium Chloride 50 ml @ 100 mls/hr Q8HRS IV Last administered on 09/15/18at 14:47; Start 09/06/18 at 00:00 Tramadol HCl (Ultram) 50 mg PRN Q6HRS PRN PO MODERATE PAIN Last administered on 09/13/18at 03:57; Start 09/06/18 at 01:30 Acetaminophen (Tylenol) 650 mg PRN Q6HRS PRN PO MILD PAIN Last administered on 09/15/18at 12:56; Start 09/06/18 at 01:30 Sodium Chloride 1,000 ml @ 1,000 mls/hr Q1H PRN IV hypotension; Start 09/06/18 at 08:09; Stop 09/06/18 at 14:08; Status DC Albumin Human 200 ml @ 200 mls/hr 1X PRN PRN IV Hypotension; Start 09/06/18 at 08:15; Stop 09/06/18 at 14:14; Status DC Acetaminophen (Tylenol) 500 mg 1X PRN PRN PO MILD PAIN / TEMP; Start 09/06/18 at 08:15; Stop 09/07/18 at 08:14; Status DC Diphenhydramine HCl (Benadryl) 25 mg 1X PRN PRN IV ITCHING; Start 09/06/18 at 08:15; Stop 09/07/18 at 08:14; Status DC Diphenhydramine HCl (Benadryl) 25 mg 1X PRN PRN IV ITCHING; Start 09/06/18 at 08:15; Stop 09/07/18 at 08:14; Status DC Sodium Chloride 1,000 ml @ 400 mls/hr Q2H30M PRN IV PATENCY; Start 09/06/18 at 08:09; Stop 09/06/18 at 20:08; Status DC Info (PHARMACY MONITORING -- do not chart) 1 each PRN DAILY PRN MC SEE COMMENTS ; Start 09/06/18 at 08:15; Stop 09/13/18 at 08:15; Status DC Metoprolol Succinate (Toprol Xl) 25 mg DAILY PO Last administered on 09/06/18at 14:00; Start 09/06/18 at 11:00; Stop 09/07/18 at 09:00; Status DC Pantoprazole Sodium (Protonix) 40 mg DAILYAC PO Last administered on 09/15/18at 12:56; Start 09/06/18 at 10:15 Fentanyl Citrate (Fentanyl 2ml Vial) 50 mcg 1X ONCE IV Last administered on at 11:54; Start 09/06/18 at 11:30; Stop 09/06/18 at 11:31; Status DC Darbepoetin Napoleon (Aranesp) 60 mcg WEEKLYHS SQ Last administered on 09/13/18at 20 :46; Start 09/06/18 at 21:00 Lactobacillus Rhamnosus (Culturelle) 1 cap BID PO Last administered on at 12:57; Start 09/06/18 at 21:00 Metoprolol Succinate (Toprol Xl) 50 mg DAILY PO Last administered on 09/10/18at 10:36; Start 09/07/18 at 09:00; Stop 09/11/18 at 08:06; Status DC Ondansetron HCl (Zofran) 4 mg PRN Q6HRS PRN IV NAUSEA/VOMITING; Start 09/10/18 at 07:00; Stop 09/10/18 at 18:00; Status DC Fentanyl Citrate (Fentanyl 2ml Vial) 25 mcg PRN Q5MIN PRN IV MILD PAIN; Start 09/10/18 at 07:00; Stop 09/10/18 at 18:00; Status DC Fentanyl Citrate (Fentanyl 2ml Vial) 50 mcg PRN Q5MIN PRN IV MODERATE TO SEVERE PAIN Last administered on 09/10/18at 14:33; Start 09/10/18 at 07:00; Stop 09/10/18 at 18:00; Status DC Morphine Sulfate (Morphine Sulfate) 1 mg PRN Q10MIN PRN IV SEVERE PAIN; Start 09/10/18 at 07:00; Stop 09/10/18 at 18:00; Status DC Ringer's Solution 1,000 ml @ 30 mls/hr Q24H IV ; Start 09/10/18 at 07:00; Stop 09/10/18 at 18:59; Status DC Lidocaine HCl (Xylocaine-Mpf 1% 2ml Vial) 2 ml PRN 1X PRN ID PRIOR TO IV START ; Start 09/10/18 at 07:00; Stop 09/10/18 at 18:00; Status DC Hydromorphone HCl (Dilaudid) 0.5 mg PRN Q10MIN PRN IV SEV PAIN, Second choice; Start 09/10/18 at 07:00; Stop 09/10/18 at 18:00; Status DC Prochlorperazine Edisylate (Compazine) 5 mg PACU PRN PRN IV NAUSEA, MRX1; Start 09/10/18 at 07:00; Stop 09/10/18 at 18:00; Status DC Sodium Chloride 1,000 ml @ 1,000 mls/hr Q1H PRN IV hypotension; Start 09/08/18 at 07:00; Stop 09/08/18 at 12:59; Status DC Sodium Chloride 1,000 ml @ 400 mls/hr Q2H30M PRN IV PATENCY; Start 09/08/18 at 07:00; Stop 09/08/18 at 18:59; Status DC Info (PHARMACY MONITORING -- do not chart) 1 each PRN DAILY PRN MC SEE COMMENTS ; Start 09/08/18 at 08:30; Status UNV Info (PHARMACY MONITORING -- do not chart) 1 each PRN DAILY PRN MC SEE COMMENTS ; Start 09/08/18 at 08:30; Status UNV Sodium Chloride 1,000 ml @ 1,000 mls/hr Q1H PRN IV hypotension; Start 09/10/18 at 07:00; Stop 09/10/18 at 15:00; Status DC Sodium Chloride 1,000 ml @ 400 mls/hr Q2H30M PRN IV PATENCY; Start 09/10/18 at 07:00; Stop 09/10/18 at 18:59; Status DC Info (PHARMACY MONITORING -- do not chart) 1 each PRN DAILY PRN MC SEE COMMENTS ; Start 09/10/18 at 08:00; Status UNV Info (PHARMACY MONITORING -- do not chart) 1 each PRN DAILY PRN MC SEE COMMENTS ; Start 09/10/18 at 08:00; Status UNV Cefazolin Sodium 1 gm/Sodium Chloride 500 ml @ 500 mls/hr 1X ONCE IRR Last administered on 09/10/18at 13:26; Start 09/10/18 at 12:00; Stop 09/10/18 at 12:59 ; Status DC Midazolam HCl (Versed) 2 mg STK-MED ONCE .ROUTE ; Start 09/10/18 at 12:23; Stop 09/10/18 at 12:24; Status DC Midazolam HCl (Versed) 2 mg 1X ONCE IV ; Start 09/10/18 at 12:45; Stop at 12:46; Status DC Dexamethasone Sodium Phosphate (Decadron) 20 mg STK-MED ONCE .ROUTE ; Start at 12:30; Stop 09/10/18 at 12:31; Status DC Lidocaine HCl (Lidocaine Pf 2% Vial) 5 ml STK-MED ONCE .ROUTE ; Start 09/10/18 at 12:30; Stop 09/10/18 at 12:31; Status DC Etomidate (Amidate) 20 mg STK-MED ONCE IV ; Start 09/10/18 at 12:30; Stop at 12:31; Status DC Famotidine (Pepcid Vial) 20 mg STK-MED ONCE .ROUTE ; Start 09/10/18 at 12:30; Stop 09/10/18 at 12:31; Status DC Ondansetron HCl (Zofran) 4 mg STK-MED ONCE .ROUTE ; Start 09/10/18 at 12:30; Stop 09/10/18 at 12:31; Status DC Phenylephrine HCl (Michael-Synephrine Inj) 10 mg STK-MED ONCE .ROUTE ; Start at 12:30; Stop 09/10/18 at 12:31; Status DC Rocuronium [place] (Zemuron) 50 mg STK-MED ONCE .ROUTE ; Start 09/10/18 at 12:30 ; Stop 09/10/18 at 12:31; Status DC Fentanyl Citrate (Fentanyl 2ml Vial) 100 mcg STK-MED ONCE .ROUTE ; Start at 12:30; Stop 09/10/18 at 12:31; Status DC Midazolam HCl (Versed) 2 mg STK-MED ONCE .ROUTE ; Start 09/10/18 at 12:30; Stop 09/10/18 at 12:31; Status DC Neostigmine Methylsulfate (Bloxiverz) 10 mg STK-MED ONCE .ROUTE ; Start at 13:40; Stop 09/10/18 at 13:41; Status DC Glycopyrrolate (Robinul) 1 mg STK-MED ONCE .ROUTE ; Start 09/10/18 at 13:40; Stop 09/10/18 at 13:41; Status DC Sevoflurane (Ultane) 60 ml STK-MED ONCE IH ; Start 09/10/18 at 13:58; Stop 09/10 at 13:59; Status DC Fentanyl Citrate (Fentanyl 2ml Vial) 100 mcg STK-MED ONCE .ROUTE ; Start at 14:14; Stop 09/10/18 at 14:15; Status DC Lorazepam (Ativan) 2 mg 1X ONCE PO Last administered on 09/10/18at 22:00; Start 09/10/18 at 19:45; Stop 09/10/18 at 19:49; Status DC Lorazepam (Ativan) 1 mg PRN Q6HRS PRN PO ANXIETY / AGITATION Last administered on 09/11/18at 19:44; Start 09/10/18 at 19:45 Quetiapine Fumarate (SEROquel) 25 mg HS PO Last administered on 09/14/18at 20:41 ; Start 09/10/18 at 21:00 Lorazepam (Ativan) 2 mg PRN Q4HRS PRN IV ANXIETY / AGITATION Last administered on 09/11/18at 21:20; Start 09/10/18 at 22:30 Haloperidol Lactate (Haldol Inj) 5 mg 1X ONCE IVP ; Start 09/10/18 at 23:00; Stop 09/10/18 at 23:01; Status DC Sodium Chloride 1,000 ml @ 1,000 mls/hr Q1H PRN IV hypotension; Start 09/11/18 at 07:06; Stop 09/11/18 at 13:05; Status DC Albumin Human 200 ml @ 200 mls/hr 1X PRN PRN IV Hypotension; Start 09/11/18 at 07:15; Stop 09/11/18 at 13:14; Status DC Sodium Chloride 1,000 ml @ 400 mls/hr Q2H30M PRN IV PATENCY; Start 09/11/18 at 07:06; Stop 09/11/18 at 19:05; Status DC Info (PHARMACY MONITORING -- do not chart) 1 each PRN DAILY PRN MC SEE COMMENTS ; Start 09/11/18 at 07:15; Status UNV Info (PHARMACY MONITORING -- do not chart) 1 each PRN DAILY PRN MC SEE COMMENTS ; Start 09/11/18 at 07:15; Status UNV Metoprolol Succinate (Toprol Xl) 25 mg DAILY PO Last administered on 09/15/18at 12:57; Start 09/11/18 at 09:00 Haloperidol Lactate (Haldol Inj) 5 mg PRN Q3HRS PRN IVP AGITATION 2ND CHOICE Last administered on 09/11/18at 22:09; Start 09/11/18 at 22:00 Acetaminophen/ Hydrocodone Bitart (Lortab 5/325) 1 tab 1X ONCE PO Last administered on 09/12/18at 22:03; Start 09/12/18 at 22:00; Stop 09/12/18 at 22:01 ; Status DC Sodium Chloride 1,000 ml @ 1,000 mls/hr Q1H PRN IV hypotension; Start 09/13/18 at 08:06; Stop 09/13/18 at 14:05; Status DC Albumin Human 200 ml @ 200 mls/hr 1X PRN PRN IV Hypotension; Start 09/13/18 at 08:15; Stop 09/13/18 at 14:14; Status DC Acetaminophen (Tylenol) 500 mg 1X PRN PRN PO MILD PAIN / TEMP; Start 09/13/18 at 08:15; Stop 09/14/18 at 08:14; Status DC Diphenhydramine HCl (Benadryl) 25 mg 1X PRN PRN IV ITCHING; Start 09/13/18 at 08:15; Stop 09/14/18 at 08:14; Status DC Diphenhydramine HCl (Benadryl) 25 mg 1X PRN PRN IV ITCHING; Start 09/13/18 at 08:15; Stop 09/14/18 at 08:14; Status DC Sodium Chloride 1,000 ml @ 400 mls/hr Q2H30M PRN IV PATENCY; Start 09/13/18 at 08:06; Stop 09/13/18 at 20:05; Status DC Info (PHARMACY MONITORING -- do not chart) 1 each PRN DAILY PRN MC SEE COMMENTS ; Start 09/13/18 at 08:15 Morphine Sulfate (Ms Contin) 10 mg BID PRN PO PAIN; Start 09/14/18 at 11:00; Stop 09/14/18 at 11:09; Status DC Morphine Sulfate (Ms Contin) 15 mg BID PO Last administered on 09/15/18at 12:58 ; Start 09/14/18 at 11:30 Sodium Chloride 1,000 ml @ 1,000 mls/hr Q1H PRN IV hypotension; Start 09/15/18 at 07:14; Stop 09/15/18 at 13:13; Status DC Albumin Human 200 ml @ 200 mls/hr 1X PRN PRN IV Hypotension; Start 09/15/18 at 07:15; Stop 09/15/18 at 13:14; Status DC Sodium Chloride (Normal Saline Flush) 10 ml 1X PRN PRN IV IMAGE CONSULTANT catheter pack; Start 09/15/18 at 07:15; Stop 09/16/18 at 07:14 Sodium Chloride 1,000 ml @ 400 mls/hr Q2H30M PRN IV PATENCY; Start 09/15/18 at 07:14; Stop 09/15/18 at 19:13 Info (PHARMACY MONITORING -- do not chart) 1 each PRN DAILY PRN MC SEE COMMENTS ; Start 09/15/18 at 07:15; Stop 09/15/18 at 07:20; Status DC Info (PHARMACY MONITORING -- do not chart) 1 each PRN DAILY PRN MC SEE COMMENTS ; Start 09/15/18 at 07:15; Stop 09/15/18 at 07:20; Status DC Vancomycin HCl 1.25 gm/Sodium Chloride 250 ml @ 166.667 mls/hr 1X ONCE IV Last administered on 09/15/18at 12:58; Start 09/15/18 at 12:30; Stop 09/15/18 at 13:59; Status DC Vancomycin HCl (Vanco Per Pharmacy) 1 each PRN DAILY PRN MC SEE COMMENTS Last administered on 09/15/18at 14:59; Start 09/15/18 at 12:30 Micafungin Sodium 100 mg/Dextrose 100 ml @ 100 mls/hr Q24H IV Last administered on 09/15/18at 14:47; Start 09/15/18 at 14:00 Vancomycin HCl (Vancomycin Random Level) 1 each 1X ONCE MC ; Start 09/18/18 at 05:00; Stop 09/18/18 at 05:01 Active Scripts Active [Pantoprazole] 40 MG Tablet.dr 40 Mg PO BIDAC 30 Days [Darbepoetin Napoleon In Polysorbat] 60 MCG/0.3 ML Disp.syrin 60 Mcg SQ WEEKLYHS 7 Days Poly-Iron (Iron Polysaccharides Complex) 150 Mg Capsule 150 Mg PO BID66 30 Days Vitals/I & O Vital Sign - Last 24 Hours 09/14/18 09/14/18 09/14/18 09/14/18 19:15 19:40 20:42 23:00 Temp 98.2 98.1 98.2 98.1 Pulse 84 89 Resp 18 20 18 B/P (MAP) 126/71 (89) 122/68 (86) Pulse Ox 95 96 O2 Delivery Nasal Cannula Room Air Room Air Room Air O2 Flow Rate 2.0 09/15/18 09/15/18 09/15/18 09/15/18 00:42 03:45 07:00 07:25 Temp 98.1 97.8 98.1 97.8 Pulse 90 87 Resp 20 18 18 B/P (MAP) 120/69 (86) 124/77 (93) Pulse Ox 95 95 O2 Delivery Room Air Room Air Room Air Room Air O2 Flow Rate 2.0 2.0 09/15/18 09/15/18 09/15/18 12:35 12:57 12:58 Temp 100.4 100.4 Pulse 148 148 Resp 22 B/P (MAP) 143/78 (99) 124/77 Pulse Ox 94 95 O2 Delivery Room Air Intake and Output 2/09/14/18 09/15/18 15:00 23:00 07:00 Intake Total 240 ml 400 ml 640 ml Output Total 200 ml 200 ml Balance 240 ml 200 ml 440 ml JAIR BARRERA MD Sep 15, 2018 15:32
[2018-09-15 19:10] VITALS: BP 107/54
[2018-09-15] MEDS: QUEtiapine 25 MG TABLET. PO SCH (21:38)
[2018-09-15 23:45] VITALS: BP 119/52
[2018-09-16 03:40] VITALS: BP 124/55
[2018-09-16 04:58] LABS: BASO # 0.1 x10^3/uL (0.0-0.2); BASO % 0 % (0-3); EOS # 0.6 x10^3/uL (0.0-0.7); EOS % 2 % (0-3); HEMATOCRIT 23.2 % (39.0-53.0); HEMOGLOBIN 7.1 g/dL (13.0-17.5); LYMPH # 1.7 x10^3/uL (1.0-4.8); LYMPH % 5 % (24-48); MEAN CORPUSCULAR HEMOGLOBIN 27 pg (25-35); MEAN CORPUSCULAR HGB CONC 31 g/dL (31-37); MEAN CORPUSCULAR VOLUME 86 fL (79-100); MONO % 8 % (0-9); NEUT # 29.9 x10^3uL (1.8-7.7); NEUT % 85 % (31-73); PLATELET COUNT 315 x10^3/uL (140-400); RED BLOOD COUNT 2.68 x10^6/uL (4.30-5.70); WHITE BLOOD COUNT 35.3 x10^3/uL (4.0-11.0)
[2018-09-16 05:33] LABS: CREATININE 4.3 mg/dL (0.7-1.3); GFR 14.5; POTASSIUM 4.5 mmol/L (3.5-5.1)
[2018-09-16] MEDS: IRON POLYSACCHARIDE COMPLEX 150 MG CAPSULE PO SCH ×2 (05:58→17:28)
[2018-09-16] MEDS: PIPERACILLIN/TAZOBACTAM 2.25 GM in IV NORMAL SALINE 50ML 50 ML IV SCH ×3 (05:58→21:43)
--- NOTE | 2018-09-16 07:06 | PDOC ---
PULMONARY PROGRESS NOTES Subjective ct removed on 09/15, at the end of hd, he had tachycardia and fever, cx was done , vanc/Micafungin added, has leukocytosis today, sob better, no cough, has some pain on ct site Vitals Vital Signs Date Time Temp Pulse Resp B/P (MAP) Pulse Ox O2 Delivery O2 Flow Rate FiO2 09/16/18 03:40 98.1 92 17 124/55 (78) 94 Room Air 98.1 09/15/18 16:55 2.0 ROS: No Nausea, No Chest Pain General: Alert, No acute distress HEENT: Other Lungs: Crackles, Other (l ct , dull left base, ) Cardiovascular: S1, S2 Abdomen: Soft, Non-tender Neuro Exam: Alert Extremities: No Edema Skin: Warm Labs Laboratory Tests Test 09/16/18 04:00 White Blood Count 35.3 x10^3/uL (4.0-11.0) Red Blood Count 2.68 x10^6/uL (4.30-5.70) Hemoglobin 7.1 g/dL (13.0-17.5) Hematocrit 23.2 % (39.0-53.0) Mean Corpuscular Volume 86 fL (79-100) Mean Corpuscular Hemoglobin 27 pg (25-35) Mean Corpuscular Hemoglobin Concent 31 g/dL (31-37) Red Cell Distribution Width 17.0 % (11.5-14.5) Platelet Count 315 x10^3/uL (140-400) Neutrophils (%) (Auto) 85 % (31-73) Lymphocytes (%) (Auto) 5 % (24-48) Monocytes (%) (Auto) 8 % (0-9) Eosinophils (%) (Auto) 2 % (0-3) Basophils (%) (Auto) 0 % (0-3) Neutrophils # (Auto) 29.9 x10^3uL (1.8-7.7) Lymphocytes # (Auto) 1.7 x10^3/uL (1.0-4.8) Monocytes # (Auto) 3.0 x10^3/uL (0.0-1.1) Eosinophils # (Auto) 0.6 x10^3/uL (0.0-0.7) Basophils # (Auto) 0.1 x10^3/uL (0.0-0.2) Sodium Level 138 mmol/L (136-145) Potassium Level 4.5 mmol/L (3.5-5.1) Chloride Level 102 mmol/L (98-107) Carbon Dioxide Level 30 mmol/L (21-32) Anion Gap 6 (6-14) Blood Urea Nitrogen 24 mg/dL (8-26) Creatinine 4.3 mg/dL (0.7-1.3) Estimated GFR (Cockcroft-Gault) 14.5 Glucose Level 96 mg/dL (70-99) Calcium Level 8.0 mg/dL (8.5-10.1) Laboratory Tests Test 09/16/18 04:00 White Blood Count 35.3 x10^3/uL (4.0-11.0) Red Blood Count 2.68 x10^6/uL (4.30-5.70) Hemoglobin 7.1 g/dL (13.0-17.5) Hematocrit 23.2 % (39.0-53.0) Mean Corpuscular Volume 86 fL (79-100) Mean Corpuscular Hemoglobin 27 pg (25-35) Mean Corpuscular Hemoglobin Concent 31 g/dL (31-37) Red Cell Distribution Width 17.0 % (11.5-14.5) Platelet Count 315 x10^3/uL (140-400) Neutrophils (%) (Auto) 85 % (31-73) Lymphocytes (%) (Auto) 5 % (24-48) Monocytes (%) (Auto) 8 % (0-9) Eosinophils (%) (Auto) 2 % (0-3) Basophils (%) (Auto) 0 % (0-3) Neutrophils # (Auto) 29.9 x10^3uL (1.8-7.7) Lymphocytes # (Auto) 1.7 x10^3/uL (1.0-4.8) Monocytes # (Auto) 3.0 x10^3/uL (0.0-1.1) Eosinophils # (Auto) 0.6 x10^3/uL (0.0-0.7) Basophils # (Auto) 0.1 x10^3/uL (0.0-0.2) Sodium Level 138 mmol/L (136-145) Potassium Level 4.5 mmol/L (3.5-5.1) Chloride Level 102 mmol/L (98-107) Carbon Dioxide Level 30 mmol/L (21-32) Anion Gap 6 (6-14) Blood Urea Nitrogen 24 mg/dL (8-26) Creatinine 4.3 mg/dL (0.7-1.3) Estimated GFR (Cockcroft-Gault) 14.5 Glucose Level 96 mg/dL (70-99) Calcium Level 8.0 mg/dL (8.5-10.1) Medications Active Scripts Medications Dose Route/Sig Max Daily Dose Days Date Category [Pantoprazole] 40 MG Tablet.dr 40 Mg PO BIDAC 30 08/25/18 Rx [Darbepoetin Napoleon In Polysorbat] 60 MCG/0.3 ML Disp.syrin 60 Mcg SQ WEEKLYHS 7 08/25/18 Rx Poly-Iron (Iron Polysaccharides Complex) 150 Mg Capsule 150 Mg PO BID66 30 08/25/18 Rx Impression . 1. Acute recurrent hypoxic respiratory failure secondary to multifactorial etiologies including recent subacute pericardial effusion with early tamponade physiology, underlying chronic obstructive pulmonary disease, anemia, bilateral pleural effusions more loculated on the left and encephalopathy. 2. Abnormal CT chest with persistent loculated left-sided pleural effusion. s/ p left chest tube. 3. Moderate to large pericardial effusion, status post pericardial window. 4. History of small pulmonary embolism last month, which subsequently resolved. He was not treated as at that time he was having severe anemia and gastrointestinal bleed. No DVT/ No history of inferior vena cava filter. 5. End-stage renal disease, on hemodialysis. 6. Underlying chronic obstructive pulmonary disease. 7. Low-grade fever, which has responded to current antibiotic. 8. H/O Cavitary nodules, likely related to staph infection, overall improved. 9. ? sepsis, b cx, GRAM NEGATIVE RODS AND GRAMS POSITIVE COCCI SEEN IN 1 OF 2 BOTTLES; Plan . 1. s/p left chest tube for loculated left effusion dced on 09/15, at the end of hd, he had tachycardia and fever, bc gnr and gp cocci, vanc/Micafungin added, has leukocytosis today, will do ct of chest 2. s/p pericardial per Thoracic Surgery. 3. 02 titration 4. Continue antibiotic Zosyn, per id. 5. Follow all cultures including pericardium cultures, GRAM NEGATIVE RODS AND GRAMS POSITIVE COCCI SEEN IN 1 OF 2 BOTTLES;. 6. Follow ID recommendation. 7. Follow Cardiology recommendation regarding recent decline in his ejection fraction of 30%. 8. Discussed with RN, pt. SHAMEKA YOON MD Sep 16, 2018 07:06
[2018-09-16 07:21] LABS: % BANDS 4 % (0-9); % LYMPHS 4 % (24-48); % MONOS 6 % (0-10); % SEGS 86 % (35-66)
[2018-09-16 07:22] LABS: PLT ESTIMATE ADEQUATE (ADEQUATE); TOXIC GRANULATION PRESENT; TOXIC VACUOLATION PRESENT
[2018-09-16 07:42] VITALS: BP 133/61
[2018-09-16] MEDS: METOPROLOL SUCC 24HR ER 25 MG TAB.ER.24H. PO SCH (08:43)
[2018-09-16] MEDS: LACTOBACILLUS RHAMNOSUS GG 1 CAPSULE. PO SCH ×2 (08:43→21:41)
[2018-09-16] MEDS: CALCIUM ACETATE 667 MG CAPSULE PO SCH ×3 (08:43→17:28)
[2018-09-16] MEDS: FOLIC/VIT B COMP W-C (RENAL) TABLET. PO SCH (08:43)
[2018-09-16] MEDS: PANTOPRAZOLE 40 MG TABLET.DR. PO SCH (08:44)
[2018-09-16] MEDS: MORPHINE ER 15 MG TABLET.ER PO SCH ×2 (09:00→21:41)
--- NOTE | 2018-09-16 09:03 | PDOC ---
SUBJECTIVE ROS For ESRD on hemodialysis She denies any further complaints or fevers at this time. He is feeling much better today. CVS: no Orthopnea, no CP RESP: no SOB, no HOLLAND GI: no Nausea, no Vomiting : no Dysuria, no Urgency OBJECTIVE Vital Signs Vital Signs Date Time Temp Pulse Resp B/P (MAP) Pulse Ox O2 Delivery O2 Flow Rate FiO2 09/16/18 08:43 93 133/61 09/16/18 07:42 98.5 17 95 Room Air 98.5 09/15/18 16:55 2.0 I & 0 Intake and Output 09/16/18 07:00 Intake Total 800 ml Output Total 531 ml Balance 269 ml Intake Oral 350 ml IV Total 450 ml Output Urine Total 531 ml PHYSICAL EXAM Physical Exam GEN: Awake, Oriented x 3, In no distress EYES: Vision Unchanged, Conjunctiva Normal EN: No EN Drainage, Mucous Membranes moist NECK: no JVD, no JVP, Supple, no Thyromegaly CVS: S1S2, ? Murmur, No Gallop, possible Rub,no Edema RESP: no Rales, no Rhonchi,no Acc. Muscle Use GI: BS + ve, NO Bruit, Non Tender, Non Distended : no CVA tenderness, no Suprapubic Tenderness DIAGNOSIS/ASSESSMENT Assessment & Plan ESRD: Current fluid and E-lyte status does not necessitate emergent need for dialysis. Will re-evaluate for dialysis in the am and continue on TTSat schedule. ANEMIA; Aranap as ordered, Transfuse with next HD as needed especially if hemoglobin drops below 7. May need an increase in Epogen dosing due to ongoing suspicion for infection HTN: Current BP meds as reviewed. See orders for changes. BONE & MINERAL: Follow current phosphorus levels and alter binder regimen as needed Fever on dialysis yesterday: Unclear etiology. Defer to infectious disease providers. White count has gone up again Discussed Plan of Care with patient at bedside COMMENT/RELEVANT DATA Meds Current Medications Medications (Trade) Dose Ordered Sig/Kevin Start Time Stop Time Status Last Admin Dose Admin Acetaminophen (Tylenol) 500 mg 1X PRN PRN 09/13/18 08:15 09/14/18 08:14 DC Acetaminophen/ Hydrocodone Bitart (Lortab 5/325) 1 tab 1X ONCE 09/12/18 22:00 09/12/18 22:01 DC 09/12/18 22:03 1 TAB Albumin Human 200 ml @ 200 mls/hr 1X PRN PRN 09/15/18 07:15 09/15/18 13:14 DC Calcium Acetate (Phoslo) 667 mg TIDWMEALS 09/06/18 08:00 09/16/18 08:43 667 MG Cefazolin Sodium 1 gm/Sodium Chloride 500 ml @ 500 mls/hr 1X ONCE 09/10/18 12:00 09/10/18 12:59 DC 09/10/18 13:26 Darbepoetin Napoleon (Aranesp) 60 mcg WEEKLYHS 09/06/18 21:00 09/13/18 20:46 60 MCG Dexamethasone Sodium Phosphate (Decadron) 20 mg STK-MED ONCE 09/10/18 12:30 09/10/18 12:31 DC Diphenhydramine HCl (Benadryl) 25 mg 1X PRN PRN 09/13/18 08:15 09/14/18 08:14 DC Etomidate (Amidate) 20 mg STK-MED ONCE 09/10/18 12:30 09/10/18 12:31 DC Famotidine (Pepcid Vial) 20 mg STK-MED ONCE 09/10/18 12:30 09/10/18 12:31 DC Fentanyl Citrate (Fentanyl 2ml Vial) 100 mcg STK-MED ONCE 09/10/18 14:14 09/10/18 14:15 DC Glycopyrrolate (Robinul) 1 mg STK-MED ONCE 09/10/18 13:40 09/10/18 13:41 DC Haloperidol Lactate (Haldol Inj) 5 mg PRN Q3HRS PRN 09/11/18 22:00 09/11/18 22:09 5 MG Hydromorphone HCl (Dilaudid) 0.5 mg PRN Q10MIN PRN 09/10/18 07:00 09/10/18 18:00 DC Info (CONTRAST GIVEN -- Rx MONITORING) 1 each PRN DAILY PRN 09/05/18 17:15 09/07/18 17:14 DC Info (PHARMACY MONITORING -- do not chart) 1 each PRN DAILY PRN 09/15/18 07:15 09/15/18 07:20 DC Iohexol (Omnipaque 350 Mg/ml) 90 ml 1X ONCE 09/05/18 17:15 09/05/18 17:16 DC 09/05/18 17:21 90 ML Lactobacillus Rhamnosus (Culturelle) 1 cap BID 09/06/18 21:00 09/16/18 08:43 1 CAP Lidocaine HCl (Lidocaine Pf 2% Vial) 5 ml STK-MED ONCE 09/10/18 12:30 09/10/18 12:31 DC Lidocaine HCl (Xylocaine-Mpf 1% 2ml Vial) 2 ml PRN 1X PRN 09/10/18 07:00 09/10/18 18:00 DC Lorazepam (Ativan) 2 mg PRN Q4HRS PRN 09/10/18 22:30 09/11/18 21:20 2 MG Metoprolol Succinate (Toprol Xl) 25 mg DAILY 09/11/18 09:00 09/16/18 08:43 25 MG Micafungin Sodium 100 mg/Dextrose 100 ml @ 100 mls/hr Q24H 09/15/18 14:00 09/15/18 14:47 100 MLS/HR Midazolam HCl (Versed) 2 mg STK-MED ONCE 09/10/18 12:30 09/10/18 12:31 DC Morphine Sulfate (Morphine Sulfate) 1 mg PRN Q10MIN PRN 09/10/18 07:00 09/10/18 18:00 DC Morphine Sulfate (Ms Contin) 15 mg BID 09/14/18 11:30 09/15/18 21:39 15 MG Neostigmine Methylsulfate (Bloxiverz) 10 mg STK-MED ONCE 09/10/18 13:40 09/10/18 13:41 DC Ondansetron HCl (Zofran) 4 mg STK-MED ONCE 09/10/18 12:30 09/10/18 12:31 DC Pantoprazole Sodium (Protonix) 40 mg DAILYAC 09/06/18 10:15 09/16/18 08:44 40 MG Phenylephrine HCl (Michael-Synephrine Inj) 10 mg STK-MED ONCE 09/10/18 12:30 09/10/18 12:31 DC Piperacillin Sod/ Tazobactam Sod (Zosyn Per Pharmacy) 1 each PRN DAILY PRN 09/05/18 17:45 Piperacillin Sod/ Tazobactam Sod 2.25 gm/Sodium Chloride 50 ml @ 100 mls/hr Q8HRS 09/06/18 00:00 09/16/18 05:58 100 MLS/HR Polysaccharide Iron Complex (Niferex 150) 150 mg [id number] 09/05/18 21:00 09/16/18 05:58 150 MG Prochlorperazine Edisylate (Compazine) 5 mg PACU PRN PRN 09/10/18 07:00 09/10/18 18:00 DC Quetiapine Fumarate (SEROquel) 25 mg HS 09/10/18 21:00 09/15/18 21:38 25 MG Ringer's Solution 1,000 ml @ 30 mls/hr Q24H 09/10/18 07:00 09/10/18 18:59 DC Rocuronium Drummond (Zemuron) 50 mg STK-MED ONCE 09/10/18 12:30 09/10/18 12:31 DC Sevoflurane (Ultane) 60 ml STK-MED ONCE 09/10/18 13:58 09/10/18 13:59 DC Sodium Chloride 1,000 ml @ 400 mls/hr Q2H30M PRN 09/15/18 07:14 09/15/18 19:13 DC Sodium Chloride (Normal Saline Flush) 10 ml 1X PRN PRN 09/15/18 07:15 09/16/18 07:14 DC Tramadol HCl (Ultram) 50 mg PRN Q6HRS PRN 09/06/18 01:30 09/13/18 03:57 50 MG Vancomycin HCl (Vanco Per Pharmacy) 1 each PRN DAILY PRN 09/15/18 12:30 09/15/18 14:59 1 EACH Vancomycin HCl (Vancomycin Random Level) 1 each 1X ONCE 09/18/18 05:00 09/18/18 05:01 Vancomycin HCl 1.25 gm/Sodium Chloride 250 ml @ 166.667 mls/hr 1X ONCE 09/15/18 12:30 09/15/18 13:59 DC 09/15/18 12:58 166.667 MLS/HR Vitamin B Complex/ Vitamin C (Massiel-Darrel) 1 tab DAILY 09/06/18 09:00 09/16/18 08:43 1 TAB Lab Laboratory Tests Test 09/16/18 04:00 White Blood Count 35.3 x10^3/uL (4.0-11.0) Red Blood Count 2.68 x10^6/uL (4.30-5.70) Hemoglobin 7.1 g/dL (13.0-17.5) Hematocrit 23.2 % (39.0-53.0) Mean Corpuscular Volume 86 fL (79-100) Mean Corpuscular Hemoglobin 27 pg (25-35) Mean Corpuscular Hemoglobin Concent 31 g/dL (31-37) Red Cell Distribution Width 17.0 % (11.5-14.5) Platelet Count 315 x10^3/uL (140-400) Neutrophils (%) (Auto) 85 % (31-73) Lymphocytes (%) (Auto) 5 % (24-48) Monocytes (%) (Auto) 8 % (0-9) Eosinophils (%) (Auto) 2 % (0-3) Basophils (%) (Auto) 0 % (0-3) Neutrophils # (Auto) 29.9 x10^3uL (1.8-7.7) Lymphocytes # (Auto) 1.7 x10^3/uL (1.0-4.8) Monocytes # (Auto) 3.0 x10^3/uL (0.0-1.1) Eosinophils # (Auto) 0.6 x10^3/uL (0.0-0.7) Basophils # (Auto) 0.1 x10^3/uL (0.0-0.2) Segmented Neutrophils % 86 % (35-66) Band Neutrophils % 4 % (0-9) Lymphocytes % 4 % (24-48) Monocytes % 6 % (0-10) Toxic Granulation Present Toxic Vacuolation Present Platelet Estimate Adequate (ADEQUATE) Sodium Level 138 mmol/L (136-145) Potassium Level 4.5 mmol/L (3.5-5.1) Chloride Level 102 mmol/L (98-107) Carbon Dioxide Level 30 mmol/L (21-32) Anion Gap 6 (6-14) Blood Urea Nitrogen 24 mg/dL (8-26) Creatinine 4.3 mg/dL (0.7-1.3) Estimated GFR (Cockcroft-Gault) 14.5 Glucose Level 96 mg/dL (70-99) Calcium Level 8.0 mg/dL (8.5-10.1) Results All relevant outside records, renal labs, imaging studies, telemetry/EKG's were reviewed. MITCH VALERIO MD Sep 16, 2018 09:03
--- NOTE | 2018-09-16 09:15 | PDOC ---
Infectious Disease Note Subjective Subjective Developed fevers and rigors during dialysis yesterday. vanc and micafungin were added. BC return with GNR and GPC in 1 bottle so far He had an uneventful night No further fevers reported He ate breakfast earlier and is now asleep Vital Sign Vital Signs Vital Signs Date Time Temp Pulse Resp B/P (MAP) Pulse Ox O2 Delivery O2 Flow Rate FiO2 09/16/18 08:43 93 133/61 09/16/18 07:42 98.5 17 95 Room Air 98.5 09/15/18 16:55 2.0 Physical Exam PHYSICAL EXAM GENERAL: Sleeping HEENT: Oral cavity, pharynx is clear. Dentures in place NECK: Supple, no JVD. LUNGS: Decreased in the bases. L CT out HEART: S1, S2. ABDOMEN: Flat. No guarding, no rebound. GENITOURINARY: Suprapubic Holloway is in place EXTREMITIES: No clubbing, cyanosis or gross edema. No signs of any splinter hemorrhages in his toes. He does have a hammertoe in his left foot. SKIN: Warm to touch without signs of rash. NEUROLOGIC: Arouses to name Right-sided chest hemodialysis catheter without signs of complications. Labs Lab Laboratory Tests Test 09/16/18 04:00 White Blood Count 35.3 x10^3/uL (4.0-11.0) Red Blood Count 2.68 x10^6/uL (4.30-5.70) Hemoglobin 7.1 g/dL (13.0-17.5) Hematocrit 23.2 % (39.0-53.0) Mean Corpuscular Volume 86 fL (79-100) Mean Corpuscular Hemoglobin 27 pg (25-35) Mean Corpuscular Hemoglobin Concent 31 g/dL (31-37) Red Cell Distribution Width 17.0 % (11.5-14.5) Platelet Count 315 x10^3/uL (140-400) Neutrophils (%) (Auto) 85 % (31-73) Lymphocytes (%) (Auto) 5 % (24-48) Monocytes (%) (Auto) 8 % (0-9) Eosinophils (%) (Auto) 2 % (0-3) Basophils (%) (Auto) 0 % (0-3) Neutrophils # (Auto) 29.9 x10^3uL (1.8-7.7) Lymphocytes # (Auto) 1.7 x10^3/uL (1.0-4.8) Monocytes # (Auto) 3.0 x10^3/uL (0.0-1.1) Eosinophils # (Auto) 0.6 x10^3/uL (0.0-0.7) Basophils # (Auto) 0.1 x10^3/uL (0.0-0.2) Segmented Neutrophils % 86 % (35-66) Band Neutrophils % 4 % (0-9) Lymphocytes % 4 % (24-48) Monocytes % 6 % (0-10) Toxic Granulation Present Toxic Vacuolation Present Platelet Estimate Adequate (ADEQUATE) Sodium Level 138 mmol/L (136-145) Potassium Level 4.5 mmol/L (3.5-5.1) Chloride Level 102 mmol/L (98-107) Carbon Dioxide Level 30 mmol/L (21-32) Anion Gap 6 (6-14) Blood Urea Nitrogen 24 mg/dL (8-26) Creatinine 4.3 mg/dL (0.7-1.3) Estimated GFR (Cockcroft-Gault) 14.5 Glucose Level 96 mg/dL (70-99) Calcium Level 8.0 mg/dL (8.5-10.1) Micro 09/15. BLOOD CULTURE Final GRAM NEGATIVE RODS AND GRAMS POSITIVE COCCI SEEN IN 1 OF 2 BOTTLES; 1 SET WAS DRAWN; RESULTS WERE CALLED TO [facility] LOPES ON 2S AT 0843; 09/16/18 BY NEETA. THE BLOOD CULTURES HAVE BEEN SENT TO [facility] FOR FURTHER WORKUP. Objective Assessment Sepsis w/ GNR & GPC bacteremia from 09/15. - clinically looks well Fever better Leukocytosis - marked increase Pleural effusion s/p chest tube 09/12 cx NGTD -Fluid analysis: glucose 77, T protein 4.0, LDH 1568 S/p Cardiac window 09/10 for pericardial effusion -cults neg so far H/o MSSA sepsis - treated - RADHA 07/10 neg. on Zosyn since 09/05 Recent GI bleed with GDA embolization CKD on HD via HDC line Anemia Plan Plan of Care Cont Zosyn, vanc and micafungin Await GNR/GPC ID/susceptibilities CT chest order - will abd/pel given mixed blood cults Repeat CBC now and in am Probiotics D/w nursing Attending Co-Sign Attending Co-Sign The patient was seen and interviewed as well as examined at the bedside. The chart was reviewed. The case was discussed. Agree with the plan of care. ABE LOUISE APRN Sep 16, 2018 09:15 JACQUIE EARL MD Sep 16, 2018 11:01
[2018-09-16 10:57] LABS: BASO # 0.2 x10^3/uL (0.0-0.2); BASO % 1 % (0-3); EOS # 0.9 x10^3/uL (0.0-0.7); EOS % 3 % (0-3); HEMATOCRIT 25.9 % (39.0-53.0); LYMPH # 2.2 x10^3/uL (1.0-4.8); LYMPH % 7 % (24-48); MEAN CORPUSCULAR HEMOGLOBIN 27 pg (25-35); MEAN CORPUSCULAR HGB CONC 31 g/dL (31-37); MEAN CORPUSCULAR VOLUME 86 fL (79-100); MONO # 2.3 x10^3/uL (0.0-1.1); MONO % 7 % (0-9); NEUT # 26.1 x10^3uL (1.8-7.7); NEUT % 83 % (31-73); PLATELET COUNT 394 x10^3/uL (140-400); RED BLOOD COUNT 3.01 x10^6/uL (4.30-5.70); WHITE BLOOD COUNT 31.6 x10^3/uL (4.0-11.0)
[2018-09-16 10:59] VITALS: BP 123/66
[2018-09-16] MEDS ORDERED: IOHEXOL 240 MG/ML 50ML VIAL. PO ONE (12:15)
[2018-09-16] MEDS ORDERED: CONTRAST GIVEN. MC PRN (12:15)
--- NOTE | 2018-09-16 13:18 | PDOC ---
PROGRESS NOTES Chief Complaint Chief Complaint acute hypoxic respiratory failure at admit, resolved Moderate ongoing bilateral pulmonary infiltrates and nodules s/p left chest tube for loculated left effusion . He also has a small right pleural thickening and effusion. There is also a small left lower lobe loculated organized effusion. The effusion is exudate , ESRD on HD TTHS Anemia of ESRD Recent massive gI bleed s./p IR coiling - hgb 9.5 weakness small to mod pericardial effusion. Trops normal, pericardial effusion appears to be subacute in nature with fibrinous components. The effusion is mostly posteriorly layered. status post pericardial window on 09/10/2018 Acute on chronic systolic CHF Cardiomyopathy: EF 35% Patient has exhibiited drug seeking behaviour will continue to monitor CRBSI? will do new set of blood cultures from the dialysis catheter. follow all cultures Plan: continue antibiotic therapy awaiting for cultures and sensitivities. Vancomycin dialysis as scheduled follow cardiology recommendations to optimize medical therapy for his cardiomyopathy History of Present Illness History of Present Illness No new complaints, no fever overnight, chills resolved, hemodyanmically stable. Vitals Vitals Vital Signs Date Time Temp Pulse Resp B/P (MAP) Pulse Ox O2 Delivery O2 Flow Rate FiO2 09/16/18 10:59 98.1 87 17 123/66 (85) 92 Room Air 98.1 09/16/18 07:40 2.0 Physical Exam Physical Exam GENERAL: Sleeping HEENT: Oral cavity, pharynx is clear. Dentures in place NECK: Supple, no JVD. LUNGS: Decreased in the bases. L CT out HEART: S1, S2. ABDOMEN: Flat. No guarding, no rebound. GENITOURINARY: Suprapubic Holloway is in place EXTREMITIES: No clubbing, cyanosis or gross edema. No signs of any splinter hemorrhages in his toes. He does have a hammertoe in his left foot. SKIN: Warm to touch without signs of rash. NEUROLOGIC: Arouses to name Right-sided chest hemodialysis catheter without signs of complications. General: mild distress Heart: Regular rate, No murmurs (muffled), Other (JVD) Lungs: Crackles, Other (l ct , dull left base, ) Abdomen: Soft, No tenderness, No hepatosplenomegaly Extremities: No clubbing, No cyanosis Skin: No significant lesion Labs LABS Laboratory Tests Test 09/16/18 04:00 09/16/18 10:40 White Blood Count 35.3 x10^3/uL (4.0-11.0) 31.6 x10^3/uL (4.0-11.0) Red Blood Count 2.68 x10^6/uL (4.30-5.70) 3.01 x10^6/uL (4.30-5.70) Hemoglobin 7.1 g/dL (13.0-17.5) 8.0 g/dL (13.0-17.5) Hematocrit 23.2 % (39.0-53.0) 25.9 % (39.0-53.0) Mean Corpuscular Volume 86 fL (79-100) 86 fL (79-100) Mean Corpuscular Hemoglobin 27 pg (25-35) 27 pg (25-35) Mean Corpuscular Hemoglobin Concent 31 g/dL (31-37) 31 g/dL (31-37) Red Cell Distribution Width 17.0 % (11.5-14.5) 17.0 % (11.5-14.5) Platelet Count 315 x10^3/uL (140-400) 394 x10^3/uL (140-400) Neutrophils (%) (Auto) 85 % (31-73) 83 % (31-73) Lymphocytes (%) (Auto) 5 % (24-48) 7 % (24-48) Monocytes (%) (Auto) 8 % (0-9) 7 % (0-9) Eosinophils (%) (Auto) 2 % (0-3) 3 % (0-3) Basophils (%) (Auto) 0 % (0-3) 1 % (0-3) Neutrophils # (Auto) 29.9 x10^3uL (1.8-7.7) 26.1 x10^3uL (1.8-7.7) Lymphocytes # (Auto) 1.7 x10^3/uL (1.0-4.8) 2.2 x10^3/uL (1.0-4.8) Monocytes # (Auto) 3.0 x10^3/uL (0.0-1.1) 2.3 x10^3/uL (0.0-1.1) Eosinophils # (Auto) 0.6 x10^3/uL (0.0-0.7) 0.9 x10^3/uL (0.0-0.7) Basophils # (Auto) 0.1 x10^3/uL (0.0-0.2) 0.2 x10^3/uL (0.0-0.2) Segmented Neutrophils % 86 % (35-66) Band Neutrophils % 4 % (0-9) Lymphocytes % 4 % (24-48) Monocytes % 6 % (0-10) Toxic Granulation Present Toxic Vacuolation Present Platelet Estimate Adequate (ADEQUATE) Sodium Level 138 mmol/L (136-145) Potassium Level 4.5 mmol/L (3.5-5.1) Chloride Level 102 mmol/L (98-107) Carbon Dioxide Level 30 mmol/L (21-32) Anion Gap 6 (6-14) Blood Urea Nitrogen 24 mg/dL (8-26) Creatinine 4.3 mg/dL (0.7-1.3) Estimated GFR (Cockcroft-Gault) 14.5 Glucose Level 96 mg/dL (70-99) Calcium Level 8.0 mg/dL (8.5-10.1) Assessment and Plan Assessmemt and Plan Problems Medical Problems: (1) Dyspnea Status: Acute Comment Review of Relevant I have reviewed the following items allyson (where applicable) has been applied. Labs Laboratory Tests Test 09/16/18 04:00 09/16/18 10:40 White Blood Count 35.3 x10^3/uL (4.0-11.0) 31.6 x10^3/uL (4.0-11.0) Red Blood Count 2.68 x10^6/uL (4.30-5.70) 3.01 x10^6/uL (4.30-5.70) Hemoglobin 7.1 g/dL (13.0-17.5) 8.0 g/dL (13.0-17.5) Hematocrit 23.2 % (39.0-53.0) 25.9 % (39.0-53.0) Mean Corpuscular Volume 86 fL (79-100) 86 fL (79-100) Mean Corpuscular Hemoglobin 27 pg (25-35) 27 pg (25-35) Mean Corpuscular Hemoglobin Concent 31 g/dL (31-37) 31 g/dL (31-37) Red Cell Distribution Width 17.0 % (11.5-14.5) 17.0 % (11.5-14.5) Platelet Count 315 x10^3/uL (140-400) 394 x10^3/uL (140-400) Neutrophils (%) (Auto) 85 % (31-73) 83 % (31-73) Lymphocytes (%) (Auto) 5 % (24-48) 7 % (24-48) Monocytes (%) (Auto) 8 % (0-9) 7 % (0-9) Eosinophils (%) (Auto) 2 % (0-3) 3 % (0-3) Basophils (%) (Auto) 0 % (0-3) 1 % (0-3) Neutrophils # (Auto) 29.9 x10^3uL (1.8-7.7) 26.1 x10^3uL (1.8-7.7) Lymphocytes # (Auto) 1.7 x10^3/uL (1.0-4.8) 2.2 x10^3/uL (1.0-4.8) Monocytes # (Auto) 3.0 x10^3/uL (0.0-1.1) 2.3 x10^3/uL (0.0-1.1) Eosinophils # (Auto) 0.6 x10^3/uL (0.0-0.7) 0.9 x10^3/uL (0.0-0.7) Basophils # (Auto) 0.1 x10^3/uL (0.0-0.2) 0.2 x10^3/uL (0.0-0.2) Segmented Neutrophils % 86 % (35-66) Band Neutrophils % 4 % (0-9) Lymphocytes % 4 % (24-48) Monocytes % 6 % (0-10) Toxic Granulation Present Toxic Vacuolation Present Platelet Estimate Adequate (ADEQUATE) Sodium Level 138 mmol/L (136-145) Potassium Level 4.5 mmol/L (3.5-5.1) Chloride Level 102 mmol/L (98-107) Carbon Dioxide Level 30 mmol/L (21-32) Anion Gap 6 (6-14) Blood Urea Nitrogen 24 mg/dL (8-26) Creatinine 4.3 mg/dL (0.7-1.3) Estimated GFR (Cockcroft-Gault) 14.5 Glucose Level 96 mg/dL (70-99) Calcium Level 8.0 mg/dL (8.5-10.1) Laboratory Tests Test 09/16/18 04:00 09/16/18 10:40 White Blood Count 35.3 x10^3/uL (4.0-11.0) 31.6 x10^3/uL (4.0-11.0) Red Blood Count 2.68 x10^6/uL (4.30-5.70) 3.01 x10^6/uL (4.30-5.70) Hemoglobin 7.1 g/dL (13.0-17.5) 8.0 g/dL (13.0-17.5) Hematocrit 23.2 % (39.0-53.0) 25.9 % (39.0-53.0) Mean Corpuscular Volume 86 fL (79-100) 86 fL (79-100) Mean Corpuscular Hemoglobin 27 pg (25-35) 27 pg (25-35) Mean Corpuscular Hemoglobin Concent 31 g/dL (31-37) 31 g/dL (31-37) Red Cell Distribution Width 17.0 % (11.5-14.5) 17.0 % (11.5-14.5) Platelet Count 315 x10^3/uL (140-400) 394 x10^3/uL (140-400) Neutrophils (%) (Auto) 85 % (31-73) 83 % (31-73) Lymphocytes (%) (Auto) 5 % (24-48) 7 % (24-48) Monocytes (%) (Auto) 8 % (0-9) 7 % (0-9) Eosinophils (%) (Auto) 2 % (0-3) 3 % (0-3) Basophils (%) (Auto) 0 % (0-3) 1 % (0-3) Neutrophils # (Auto) 29.9 x10^3uL (1.8-7.7) 26.1 x10^3uL (1.8-7.7) Lymphocytes # (Auto) 1.7 x10^3/uL (1.0-4.8) 2.2 x10^3/uL (1.0-4.8) Monocytes # (Auto) 3.0 x10^3/uL (0.0-1.1) 2.3 x10^3/uL (0.0-1.1) Eosinophils # (Auto) 0.6 x10^3/uL (0.0-0.7) 0.9 x10^3/uL (0.0-0.7) Basophils # (Auto) 0.1 x10^3/uL (0.0-0.2) 0.2 x10^3/uL (0.0-0.2) Segmented Neutrophils % 86 % (35-66) Band Neutrophils % 4 % (0-9) Lymphocytes % 4 % (24-48) Monocytes % 6 % (0-10) Toxic Granulation Present Toxic Vacuolation Present Platelet Estimate Adequate (ADEQUATE) Sodium Level 138 mmol/L (136-145) Potassium Level 4.5 mmol/L (3.5-5.1) Chloride Level 102 mmol/L (98-107) Carbon Dioxide Level 30 mmol/L (21-32) Anion Gap 6 (6-14) Blood Urea Nitrogen 24 mg/dL (8-26) Creatinine 4.3 mg/dL (0.7-1.3) Estimated GFR (Cockcroft-Gault) 14.5 Glucose Level 96 mg/dL (70-99) Calcium Level 8.0 mg/dL (8.5-10.1) Microbiology 09/15/18 Blood Culture - Final, Complete 09/12/18 Anaerobic/Aerobic Culture, Resulted Pending 09/12/18 Anaerobic Culture Result 1 (NATHAN), Resulted Pending 09/12/18 Aerobic Culture - Preliminary, Resulted 09/12/18 Aerobic Culture Result 1 (NATHAN) - Preliminary, Resulted 09/12/18 Gram Stain - Final, Resulted 09/12/18 Gram Stain Result 1 (NATHAN) - Final, Resulted 09/12/18 Gram Stain Result 2 (NATHAN) - Final, Resulted Medications Current Medications Iohexol (Omnipaque 350 Mg/ml) 90 ml 1X ONCE IV Last administered on 09/05/18at 17:21; Start 09/05/18 at 17:15; Stop 09/05/18 at 17:16; Status DC Info (CONTRAST GIVEN -- Rx MONITORING) 1 each PRN DAILY PRN MC SEE COMMENTS; Start 09/05/18 at 17:15; Stop 09/07/18 at 17:14; Status DC Polysaccharide Iron Complex (Niferex 150) 150 mg BID66 PO Last administered on 09/16/18 05:58; Start 09/05/18 at 21:00 Darbepoetin Napoleon (Aranesp) 60 mcg WEEKLYHS SQ ; Start 09/10/18 at 21:00; Status Cancel Pantoprazole Sodium (Protonix) 40 mg BIDAC PO Last administered on 09/05/18at 20 :57; Start 09/05/18 at 21:00; Stop 09/06/18 at 10:25; Status DC Vitamin B Complex/ Vitamin C (Massiel-Darrel) 1 tab DAILY PO Last administered on 08:43; Start 09/06/18 at 09:00 Calcium Acetate (Phoslo) 667 mg TIDWMEALS PO Last administered on 09/16/18 08: 43; Start 09/06/18 at 08:00 Piperacillin Sod/ Tazobactam Sod (Zosyn Per Pharmacy) 1 each PRN DAILY PRN MC SEE COMMENTS; Start 09/05/18 at 17:45 Piperacillin Sod/ Tazobactam Sod 2.25 gm/Sodium Chloride 50 ml @ 100 mls/hr 1X ONCE IV Last administered on 09/05/18at 18:17; Start 09/05/18 at 17:45; Stop 09/05/18 at 18:14; Status DC Fentanyl Citrate (Fentanyl 2ml Vial) 50 mcg 1X ONCE IV Last administered on at 18:13; Start 09/05/18 at 18:00; Stop 09/05/18 at 18:01; Status DC Piperacillin Sod/ Tazobactam Sod 2.25 gm/Sodium Chloride 50 ml @ 100 mls/hr Q8HRS IV Last administered on 09/16/18at 05:58; Start 09/06/18 at 00:00 Tramadol HCl (Ultram) 50 mg PRN Q6HRS PRN PO MODERATE PAIN Last administered on 09/13/18at 03:57; Start 09/06/18 at 01:30 Acetaminophen (Tylenol) 650 mg PRN Q6HRS PRN PO MILD PAIN Last administered on 2/23/19at 12:56; Start 09/06/18 at 01:30 Sodium Chloride 1,000 ml @ 1,000 mls/hr Q1H PRN IV hypotension; Start 09/06/18 at 08:09; Stop 09/06/18 at 14:08; Status DC Albumin Human 200 ml @ 200 mls/hr 1X PRN PRN IV Hypotension; Start 09/06/18 at 08:15; Stop 09/06/18 at 14:14; Status DC Acetaminophen (Tylenol) 500 mg 1X PRN PRN PO MILD PAIN / TEMP; Start 09/06/18 at 08:15; Stop 09/07/18 at 08:14; Status DC Diphenhydramine HCl (Benadryl) 25 mg 1X PRN PRN IV ITCHING; Start 09/06/18 at 08:15; Stop 09/07/18 at 08:14; Status DC Diphenhydramine HCl (Benadryl) 25 mg 1X PRN PRN IV ITCHING; Start 09/06/18 at 08:15; Stop 09/07/18 at 08:14; Status DC Sodium Chloride 1,000 ml @ 400 mls/hr Q2H30M PRN IV PATENCY; Start 09/06/18 at 08:09; Stop 09/06/18 at 20:08; Status DC Info (PHARMACY MONITORING -- do not chart) 1 each PRN DAILY PRN MC SEE COMMENTS ; Start 09/06/18 at 08:15; Stop 09/13/18 at 08:15; Status DC Metoprolol Succinate (Toprol Xl) 25 mg DAILY PO Last administered on 09/06/18at 14:00; Start 09/06/18 at 11:00; Stop 09/07/18 at 09:00; Status DC Pantoprazole Sodium (Protonix) 40 mg DAILYAC PO Last administered on 09/16/18at 08:44; Start 09/06/18 at 10:15 Fentanyl Citrate (Fentanyl 2ml Vial) 50 mcg 1X ONCE IV Last administered on at 11:54; Start 09/06/18 at 11:30; Stop 09/06/18 at 11:31; Status DC Darbepoetin Napoleon (Aranesp) 60 mcg WEEKLYHS SQ Last administered on 09/13/18at 20 :46; Start 09/06/18 at 21:00 Lactobacillus Rhamnosus (Culturelle) 1 cap BID PO Last administered on at 08:43; Start 09/06/18 at 21:00 Metoprolol Succinate (Toprol Xl) 50 mg DAILY PO Last administered on 09/10/18at 10:36; Start 09/07/18 at 09:00; Stop 09/11/18 at 08:06; Status DC Ondansetron HCl (Zofran) 4 mg PRN Q6HRS PRN IV NAUSEA/VOMITING; Start 09/10/18 at 07:00; Stop 09/10/18 at 18:00; Status DC Fentanyl Citrate (Fentanyl 2ml Vial) 25 mcg PRN Q5MIN PRN IV MILD PAIN; Start 09/10/18 at 07:00; Stop 09/10/18 at 18:00; Status DC Fentanyl Citrate (Fentanyl 2ml Vial) 50 mcg PRN Q5MIN PRN IV MODERATE TO SEVERE PAIN Last administered on 09/10/18at 14:33; Start 09/10/18 at 07:00; Stop 09/10/18 at 18:00; Status DC Morphine Sulfate (Morphine Sulfate) 1 mg PRN Q10MIN PRN IV SEVERE PAIN; Start 09/10/18 at 07:00; Stop 09/10/18 at 18:00; Status DC Ringer's Solution 1,000 ml @ 30 mls/hr Q24H IV ; Start 09/10/18 at 07:00; Stop 09/10/18 at 18:59; Status DC Lidocaine HCl (Xylocaine-Mpf 1% 2ml Vial) 2 ml PRN 1X PRN ID PRIOR TO IV START ; Start 09/10/18 at 07:00; Stop 09/10/18 at 18:00; Status DC Hydromorphone HCl (Dilaudid) 0.5 mg PRN Q10MIN PRN IV SEV PAIN, Second choice; Start 09/10/18 at 07:00; Stop 09/10/18 at 18:00; Status DC Prochlorperazine Edisylate (Compazine) 5 mg PACU PRN PRN IV NAUSEA, MRX1; Start 09/10/18 at 07:00; Stop 09/10/18 at 18:00; Status DC Sodium Chloride 1,000 ml @ 1,000 mls/hr Q1H PRN IV hypotension; Start 09/08/18 at 07:00; Stop 09/08/18 at 12:59; Status DC Sodium Chloride 1,000 ml @ 400 mls/hr Q2H30M PRN IV PATENCY; Start 09/08/18 at 07:00; Stop 09/08/18 at 18:59; Status DC Info (PHARMACY MONITORING -- do not chart) 1 each PRN DAILY PRN MC SEE COMMENTS ; Start 09/08/18 at 08:30; Status UNV Info (PHARMACY MONITORING -- do not chart) 1 each PRN DAILY PRN MC SEE COMMENTS ; Start 09/08/18 at 08:30; Status UNV Sodium Chloride 1,000 ml @ 1,000 mls/hr Q1H PRN IV hypotension; Start 09/10/18 at 07:00; Stop 09/10/18 at 15:00; Status DC Sodium Chloride 1,000 ml @ 400 mls/hr Q2H30M PRN IV PATENCY; Start 09/10/18 at 07:00; Stop 09/10/18 at 18:59; Status DC Info (PHARMACY MONITORING -- do not chart) 1 each PRN DAILY PRN MC SEE COMMENTS ; Start 09/10/18 at 08:00; Status UNV Info (PHARMACY MONITORING -- do not chart) 1 each PRN DAILY PRN MC SEE COMMENTS ; Start 09/10/18 at 08:00; Status UNV Cefazolin Sodium 1 gm/Sodium Chloride 500 ml @ 500 mls/hr 1X ONCE IRR Last administered on 09/10/18at 13:26; Start 09/10/18 at 12:00; Stop 09/10/18 at 12:59 ; Status DC Midazolam HCl (Versed) 2 mg STK-MED ONCE .ROUTE ; Start 09/10/18 at 12:23; Stop 09/10/18 at 12:24; Status DC Midazolam HCl (Versed) 2 mg 1X ONCE IV ; Start 09/10/18 at 12:45; Stop at 12:46; Status DC Dexamethasone Sodium Phosphate (Decadron) 20 mg STK-MED ONCE .ROUTE ; Start at 12:30; Stop 09/10/18 at 12:31; Status DC Lidocaine HCl (Lidocaine Pf 2% Vial) 5 ml STK-MED ONCE .ROUTE ; Start 09/10/18 at 12:30; Stop 09/10/18 at 12:31; Status DC Etomidate (Amidate) 20 mg STK-MED ONCE IV ; Start 09/10/18 at 12:30; Stop at 12:31; Status DC Famotidine (Pepcid Vial) 20 mg STK-MED ONCE .ROUTE ; Start 09/10/18 at 12:30; Stop 09/10/18 at 12:31; Status DC Ondansetron HCl (Zofran) 4 mg STK-MED ONCE .ROUTE ; Start 09/10/18 at 12:30; Stop 09/10/18 at 12:31; Status DC Phenylephrine HCl (Michael-Synephrine Inj) 10 mg STK-MED ONCE .ROUTE ; Start at 12:30; Stop 09/10/18 at 12:31; Status DC Rocuronium Kinmundy (Zemuron) 50 mg STK-MED ONCE .ROUTE ; Start 09/10/18 at 12:30 ; Stop 09/10/18 at 12:31; Status DC Fentanyl Citrate (Fentanyl 2ml Vial) 100 mcg STK-MED ONCE .ROUTE ; Start at 12:30; Stop 09/10/18 at 12:31; Status DC Midazolam HCl (Versed) 2 mg STK-MED ONCE .ROUTE ; Start 09/10/18 at 12:30; Stop 09/10/18 at 12:31; Status DC Neostigmine Methylsulfate (Bloxiverz) 10 mg STK-MED ONCE .ROUTE ; Start at 13:40; Stop 09/10/18 at 13:41; Status DC Glycopyrrolate (Robinul) 1 mg STK-MED ONCE .ROUTE ; Start 09/10/18 at 13:40; Stop 09/10/18 at 13:41; Status DC Sevoflurane (Ultane) 60 ml STK-MED ONCE IH ; Start 09/10/18 at 13:58; Stop 09/10 at 13:59; Status DC Fentanyl Citrate (Fentanyl 2ml Vial) 100 mcg STK-MED ONCE .ROUTE ; Start at 14:14; Stop 09/10/18 at 14:15; Status DC Lorazepam (Ativan) 2 mg 1X ONCE PO Last administered on 09/10/18at 22:00; Start 09/10/18 at 19:45; Stop 09/10/18 at 19:49; Status DC Lorazepam (Ativan) 1 mg PRN Q6HRS PRN PO ANXIETY / AGITATION Last administered on 09/11/18at 19:44; Start 09/10/18 at 19:45 Quetiapine Fumarate (SEROquel) 25 mg HS PO Last administered on 09/15/18at 21:38 ; Start 09/10/18 at 21:00 Lorazepam (Ativan) 2 mg PRN Q4HRS PRN IV ANXIETY / AGITATION Last administered on 09/11/18at 21:20; Start 09/10/18 at 22:30 Haloperidol Lactate (Haldol Inj) 5 mg 1X ONCE IVP ; Start 09/10/18 at 23:00; Stop 09/10/18 at 23:01; Status DC Sodium Chloride 1,000 ml @ 1,000 mls/hr Q1H PRN IV hypotension; Start 09/11/18 at 07:06; Stop 09/11/18 at 13:05; Status DC Albumin Human 200 ml @ 200 mls/hr 1X PRN PRN IV Hypotension; Start 09/11/18 at 07:15; Stop 09/11/18 at 13:14; Status DC Sodium Chloride 1,000 ml @ 400 mls/hr Q2H30M PRN IV PATENCY; Start 09/11/18 at 07:06; Stop 09/11/18 at 19:05; Status DC Info (PHARMACY MONITORING -- do not chart) 1 each PRN DAILY PRN MC SEE COMMENTS ; Start 09/11/18 at 07:15; Status UNV Info (PHARMACY MONITORING -- do not chart) 1 each PRN DAILY PRN MC SEE COMMENTS ; Start 09/11/18 at 07:15; Status UNV Metoprolol Succinate (Toprol Xl) 25 mg DAILY PO Last administered on 09/16/18at 08:43; Start 09/11/18 at 09:00 Haloperidol Lactate (Haldol Inj) 5 mg PRN Q3HRS PRN IVP AGITATION 2ND CHOICE Last administered on 09/11/18at 22:09; Start 09/11/18 at 22:00 Acetaminophen/ Hydrocodone Bitart (Lortab 5/325) 1 tab 1X ONCE PO Last administered on 09/12/18at 22:03; Start 09/12/18 at 22:00; Stop 09/12/18 at 22:01 ; Status DC Sodium Chloride 1,000 ml @ 1,000 mls/hr Q1H PRN IV hypotension; Start 09/13/18 at 08:06; Stop 09/13/18 at 14:05; Status DC Albumin Human 200 ml @ 200 mls/hr 1X PRN PRN IV Hypotension; Start 09/13/18 at 08:15; Stop 09/13/18 at 14:14; Status DC Acetaminophen (Tylenol) 500 mg 1X PRN PRN PO MILD PAIN / TEMP; Start 09/13/18 at 08:15; Stop 09/14/18 at 08:14; Status DC Diphenhydramine HCl (Benadryl) 25 mg 1X PRN PRN IV ITCHING; Start 09/13/18 at 08:15; Stop 09/14/18 at 08:14; Status DC Diphenhydramine HCl (Benadryl) 25 mg 1X PRN PRN IV ITCHING; Start 09/13/18 at 08:15; Stop 09/14/18 at 08:14; Status DC Sodium Chloride 1,000 ml @ 400 mls/hr Q2H30M PRN IV PATENCY; Start 09/13/18 at 08:06; Stop 09/13/18 at 20:05; Status DC Info (PHARMACY MONITORING -- do not chart) 1 each PRN DAILY PRN MC SEE COMMENTS ; Start 09/13/18 at 08:15 Morphine Sulfate (Ms Contin) 10 mg BID PRN PO PAIN; Start 09/14/18 at 11:00; Stop 09/14/18 at 11:09; Status DC Morphine Sulfate (Ms Contin) 15 mg BID PO Last administered on 09/15/18at 21:39 ; Start 09/14/18 at 11:30 Sodium Chloride 1,000 ml @ 1,000 mls/hr Q1H PRN IV hypotension; Start 09/15/18 at 07:14; Stop 09/15/18 at 13:13; Status DC Albumin Human 200 ml @ 200 mls/hr 1X PRN PRN IV Hypotension; Start 09/15/18 at 07:15; Stop 09/15/18 at 13:14; Status DC Sodium Chloride (Normal Saline Flush) 10 ml 1X PRN PRN IV CIGAR BANDER HAND catheter pack; Start 09/15/18 at 07:15; Stop 09/16/18 at 07:14; Status DC Sodium Chloride 1,000 ml @ 400 mls/hr Q2H30M PRN IV PATENCY; Start 09/15/18 at 07:14; Stop 09/15/18 at 19:13; Status DC Info (PHARMACY MONITORING -- do not chart) 1 each PRN DAILY PRN MC SEE COMMENTS ; Start 09/15/18 at 07:15; Stop 09/15/18 at 07:20; Status DC Info (PHARMACY MONITORING -- do not chart) 1 each PRN DAILY PRN MC SEE COMMENTS ; Start 09/15/18 at 07:15; Stop 09/15/18 at 07:20; Status DC Vancomycin HCl 1.25 gm/Sodium Chloride 250 ml @ 166.667 mls/hr 1X ONCE IV Last administered on 09/15/18at 12:58; Start 09/15/18 at 12:30; Stop 09/15/18 at 13:59; Status DC Vancomycin HCl (Vanco Per Pharmacy) 1 each PRN DAILY PRN MC SEE COMMENTS Last administered on 09/15/18at 14:59; Start 09/15/18 at 12:30 Micafungin Sodium 100 mg/Dextrose 100 ml @ 100 mls/hr Q24H IV Last administered on 09/15/18at 14:47; Start 09/15/18 at 14:00 Vancomycin HCl (Vancomycin Random Level) 1 each 1X ONCE MC ; Start 09/18/18 at 05:00; Stop 09/18/18 at 05:01 Iohexol (Omnipaque 240 Mg/ml) 50 ml 1X ONCE PO Last administered on 09/16/18at 12:15; Start 09/16/18 at 12:15; Stop 09/16/18 at 12:16; Status DC Info (CONTRAST GIVEN -- Rx MONITORING) 1 each PRN DAILY PRN MC SEE COMMENTS; Start 09/16/18 at 12:15; Stop 09/18/18 at 12:14 Active Scripts Active [Pantoprazole] 40 MG Tablet.dr 40 Mg PO BIDAC 30 Days [Darbepoetin Napoleon In Polysorbat] 60 MCG/0.3 ML Disp.syrin 60 Mcg SQ WEEKLYHS 7 Days Poly-Iron (Iron Polysaccharides Complex) 150 Mg Capsule 150 Mg PO BID66 30 Days Vitals/I & O Vital Sign - Last 24 Hours 09/15/18 09/15/18 09/15/18 09/15/18 15:00 16:55 19:10 19:45 Temp 100.0 97.8 100.0 97.8 Pulse 129 94 Resp 20 20 18 B/P (MAP) 119/66 (83) 107/54 (71) Pulse Ox 93 93 94 O2 Delivery Nasal Cannula Room Air Room Air Room Air O2 Flow Rate 2.0 2.0 09/15/18 09/16/18 09/16/18 09/16/18 23:45 03:40 07:40 07:42 Temp 98.4 98.1 98.5 98.4 98.1 98.5 Pulse 89 92 93 Resp 18 17 17 B/P (MAP) 119/52 (74) 124/55 (78) 133/61 (85) Pulse Ox 94 94 95 O2 Delivery Room Air Room Air Room Air Room Air O2 Flow Rate 2.0 09/16/18 09/16/18 08:43 10:59 Temp 98.1 98.1 Pulse 93 87 Resp 17 B/P (MAP) 133/61 123/66 (85) Pulse Ox 92 O2 Delivery Room Air Intake and Output 09/15/18 09/15/18 09/16/18 15:00 23:00 07:00 Intake Total 400 ml 200 ml 200 ml Output Total 231 ml 300 ml Balance 400 ml -31 ml -100 ml JAIR BARRERA MD Sep 16, 2018 13:18
[2018-09-16] MEDS: VANCOMYCIN PER PHARMACY MC PRN (13:41)
[2018-09-16] MEDS: MICAFUNGIN 100 MG in IV DEXTROSE 5% 100ML 100 ML IV SCH (13:56)
--- NOTE | 2018-09-16 14:07 | RAD ---
CT CHEST WO CONTRAST, CT ABD PEL W/ORAL CONTRST ONLY Indication: FEVER. PREVIOUS Exposure: One or more of the following individualized dose reduction techniques were utilized for this examination: 1. Automated exposure control 2. Adjustment of the mA and/or kV according to patient size 3. Use of iterative reconstruction technique. Technique: No intravenous contrast. Oral contrast was given. CT CHEST: Comparison with September 12, 2018. Heart size is enlarged. Pericardial effusion again identified. Coronary artery calcification. Thyroid slightly heterogeneous. Thoracic aorta is mildly calcified. No evidence of aneurysm. Small mediastinal lymph nodes are identified as are small axillary lymph nodes without pathologic enlargement. The aorta is not aneurysmal. Left pleural effusion is again identified with extension into the fissure. The overall amount is slightly reduced. There is air within the left pleural effusion, may be due to recent instrumentation or thoracentesis. Small right pleural effusion is again seen. Linear markings within both lungs, likely due to some atelectasis. There are scattered small ill-defined nodular opacities in both lungs, likely represent areas of atelectasis or small inflammatory/infectious foci. No dense lobar consolidation. Overall the lungs appear better aerated than on the previous study with diminished interstitial infiltrate. Degenerative changes of the spine. IMPRESSION: 1. Left pleural effusion with fissural extension is slightly smaller. There is now air density identified within the left pleural fluid, correlate for recent instrumentation or thoracentesis. If not, this could indicate a bronchial leak or hydropneumothorax. 2. Small right pleural effusion and pericardial effusion are again seen. 3. Diminished interstitial infiltrate or edema since prior study. 4. There are small somewhat nodular ill-defined opacities particularly in the right lung, may represent a small groundglass infiltrates from inflammatory or infectious etiology. Abdomen pelvis No prior study for comparison. Evaluation of viscera, bowel and vasculature is limited without contrast. Liver is mildly enlarged. Spleen is borderline enlarged. Hypodensity of the liver suggests fatty infiltration. Pancreas is poorly seen, no definite abnormality. No evidence of adrenal mass. Both kidneys are small with cortical thinning or atrophy. Perinephric stranding bilaterally. Bilateral hydronephrosis. Segments of the ureters also appear dilated. No definite obstructive calculus. No calcified gallstone. The aorta is mildly calcified without aneurysm. No definite lymph node enlargement. No evidence of bowel obstruction. There is moderate retained stool in the colon and rectum. Mild diffuse stranding within the peritoneal fat. There is fluid in the right inguinal canal. The urinary bladder is collapsed around a percutaneous catheter, poorly evaluated. No definite pneumoperitoneum. No large amount of ascites. IMPRESSION: 1. Moderate retained stool in the colon. 2. Hepatomegaly with steatosis. 3. Borderline splenomegaly. 4. Cortical thinning or atrophy of both kidneys. Hydronephrosis, could be due to recent obstruction or ascending infection. There is also perinephric inflammation as can be seen with pyelonephritis. Electronically signed by: Manny Ruiz MD (09/16/2018 2:04 PM) [facility]
[2018-09-16 14:45] VITALS: BP 128/68
[2018-09-16 19:45] VITALS: BP 138/65
[2018-09-16] MEDS: QUEtiapine 25 MG TABLET. PO SCH (21:42)
[2018-09-16 23:45] VITALS: BP 133/69
[2018-09-17 03:10] VITALS: BP 140/70
[2018-09-17 05:07] LABS: BASO # 0.1 x10^3/uL (0.0-0.2); BASO % 1 % (0-3); EOS # 0.9 x10^3/uL (0.0-0.7); EOS % 5 % (0-3); LYMPH # 1.9 x10^3/uL (1.0-4.8); LYMPH % 10 % (24-48); MEAN CORPUSCULAR HEMOGLOBIN 27 pg (25-35); MEAN CORPUSCULAR HGB CONC 32 g/dL (31-37); MEAN CORPUSCULAR VOLUME 87 fL (79-100); MONO # 1.8 x10^3/uL (0.0-1.1); MONO % 9 % (0-9); NEUT # 14.6 x10^3uL (1.8-7.7); NEUT % 76 % (31-73); PLATELET COUNT 329 x10^3/uL (140-400); RED BLOOD COUNT 2.55 x10^6/uL (4.30-5.70); WHITE BLOOD COUNT 19.3 x10^3/uL (4.0-11.0)
[2018-09-17] MEDS: IRON POLYSACCHARIDE COMPLEX 150 MG CAPSULE PO SCH ×2 (05:29→18:04)
[2018-09-17] MEDS: PIPERACILLIN/TAZOBACTAM 2.25 GM in IV NORMAL SALINE 50ML 50 ML IV SCH ×3 (05:31→23:20)
[2018-09-17 05:33] LABS: HEMOGLOBIN 6.9 g/dL (13.0-17.5)
[2018-09-17 07:41] VITALS: BP 126/66
--- NOTE | 2018-09-17 08:21 | PDOC ---
Infectious Disease Note Subjective Subjective Developed fevers and rigors during dialysis yesterday. vanc and micafungin were added. BC return with GNR and GPC in 1 bottle so far He had an uneventful night No further fevers reported He ate breakfast earlier and is now asleep Vital Sign Vital Signs Vital Signs Date Time Temp Pulse Resp B/P (MAP) Pulse Ox O2 Delivery O2 Flow Rate FiO2 09/17/18 07:41 98.1 93 18 126/66 (86) 90 Room Air 98.1 09/16/18 07:40 2.0 Physical Exam PHYSICAL EXAM GENERAL: Sleeping HEENT: Oral cavity, pharynx is clear. Dentures in place NECK: Supple, no JVD. LUNGS: Decreased in the bases. L CT out HEART: S1, S2. ABDOMEN: Flat. No guarding, no rebound. GENITOURINARY: Suprapubic Holloway is in place EXTREMITIES: No clubbing, cyanosis or gross edema. No signs of any splinter hemorrhages in his toes. He does have a hammertoe in his left foot. SKIN: Warm to touch without signs of rash. NEUROLOGIC: Arouses to name Right-sided chest hemodialysis catheter without signs of complications. Labs Lab Laboratory Tests Test 09/16/18 10:40 09/17/18 04:05 White Blood Count 31.6 x10^3/uL (4.0-11.0) 19.3 x10^3/uL (4.0-11.0) Red Blood Count 3.01 x10^6/uL (4.30-5.70) 2.55 x10^6/uL (4.30-5.70) Hemoglobin 8.0 g/dL (13.0-17.5) 6.9 g/dL (13.0-17.5) Hematocrit 25.9 % (39.0-53.0) 22.0 % (39.0-53.0) Mean Corpuscular Volume 86 fL (79-100) 87 fL (79-100) Mean Corpuscular Hemoglobin 27 pg (25-35) 27 pg (25-35) Mean Corpuscular Hemoglobin Concent 31 g/dL (31-37) 32 g/dL (31-37) Red Cell Distribution Width 17.0 % (11.5-14.5) 17.0 % (11.5-14.5) Platelet Count 394 x10^3/uL (140-400) 329 x10^3/uL (140-400) Neutrophils (%) (Auto) 83 % (31-73) 76 % (31-73) Lymphocytes (%) (Auto) 7 % (24-48) 10 % (24-48) Monocytes (%) (Auto) 7 % (0-9) 9 % (0-9) Eosinophils (%) (Auto) 3 % (0-3) 5 % (0-3) Basophils (%) (Auto) 1 % (0-3) 1 % (0-3) Neutrophils # (Auto) 26.1 x10^3uL (1.8-7.7) 14.6 x10^3uL (1.8-7.7) Lymphocytes # (Auto) 2.2 x10^3/uL (1.0-4.8) 1.9 x10^3/uL (1.0-4.8) Monocytes # (Auto) 2.3 x10^3/uL (0.0-1.1) 1.8 x10^3/uL (0.0-1.1) Eosinophils # (Auto) 0.9 x10^3/uL (0.0-0.7) 0.9 x10^3/uL (0.0-0.7) Basophils # (Auto) 0.2 x10^3/uL (0.0-0.2) 0.1 x10^3/uL (0.0-0.2) Micro Microbiology 09/15/18 Blood Culture - Final, Complete 09/12/18 Anaerobic/Aerobic Culture, Resulted Pending 09/12/18 Anaerobic Culture Result 1 (NATHAN), Resulted Pending 09/12/18 Aerobic Culture - Final, Resulted 09/12/18 Aerobic Culture Result 1 (NATHAN) - Final, Resulted 09/12/18 Gram Stain - Final, Resulted 09/12/18 Gram Stain Result 1 (NATHAN) - Final, Resulted 09/12/18 Gram Stain Result 2 (NATHAN) - Final, Resulted Objective Assessment Sepsis w/ GNR & GPC bacteremia from 09/15. - clinically looks well Fever better Leukocytosis - marked increase Pleural effusion s/p chest tube 09/12 cx NGTD -Fluid analysis: glucose 77, T protein 4.0, LDH 1568 S/p Cardiac window 09/10 for pericardial effusion -cults neg so far H/o MSSA sepsis - treated - RADHA 07/10 neg. on Zosyn since 09/05 Recent GI bleed with GDA embolization CKD on HD via HDC line Anemia Plan Plan of Care Cont Zosyn, vanc and micafungin Await GNR/GPC ID/susceptibilities CT chest , abd and pelvis, noted Repeat CBC now and in am Probiotics D/w nursing CHAPIN VALERIO MD Sep 17, 2018 08:21
[2018-09-17] MEDS: MORPHINE ER 15 MG TABLET.ER PO SCH ×2 (09:22→20:40)
[2018-09-17] MEDS: LACTOBACILLUS RHAMNOSUS GG 1 CAPSULE. PO SCH ×2 (09:22→20:40)
[2018-09-17] MEDS: FOLIC/VIT B COMP W-C (RENAL) TABLET. PO SCH (09:22)
[2018-09-17] MEDS: CALCIUM ACETATE 667 MG CAPSULE PO SCH ×3 (09:23→18:04)
[2018-09-17] MEDS: METOPROLOL SUCC 24HR ER 25 MG TAB.ER.24H. PO SCH (09:23)
[2018-09-17] MEDS: PANTOPRAZOLE 40 MG TABLET.DR. PO SCH (09:23)
--- NOTE | 2018-09-17 10:29 | PDOC ---
PULMONARY PROGRESS NOTES Subjective ct removed on 09/15, no soa Vitals Vital Signs Date Time Temp Pulse Resp B/P (MAP) Pulse Ox O2 Delivery O2 Flow Rate FiO2 09/17/18 09:23 93 126/66 09/17/18 09:22 Room Air 09/17/18 07:41 98.1 18 90 98.1 09/16/18 07:40 2.0 ROS: No Nausea, No Chest Pain General: Alert, No acute distress HEENT: Other Lungs: Other (l ct , dull left base, ) Cardiovascular: S1, S2 Abdomen: Soft, Non-tender Neuro Exam: Alert Extremities: No Edema Skin: Warm Labs Laboratory Tests Test 09/16/18 04:00 09/16/18 10:40 09/17/18 04:05 White Blood Count 35.3 x10^3/uL (4.0-11.0) 31.6 x10^3/uL (4.0-11.0) 19.3 x10^3/uL (4.0-11.0) Red Blood Count 2.68 x10^6/uL (4.30-5.70) 3.01 x10^6/uL (4.30-5.70) 2.55 x10^6/uL (4.30-5.70) Hemoglobin 7.1 g/dL (13.0-17.5) 8.0 g/dL (13.0-17.5) 6.9 g/dL (13.0-17.5) Hematocrit 23.2 % (39.0-53.0) 25.9 % (39.0-53.0) 22.0 % (39.0-53.0) Mean Corpuscular Volume 86 fL (79-100) 86 fL (79-100) 87 fL (79-100) Mean Corpuscular Hemoglobin 27 pg (25-35) 27 pg (25-35) 27 pg (25-35) Mean Corpuscular Hemoglobin Concent 31 g/dL (31-37) 31 g/dL (31-37) 32 g/dL (31-37) Red Cell Distribution Width 17.0 % (11.5-14.5) 17.0 % (11.5-14.5) 17.0 % (11.5-14.5) Platelet Count 315 x10^3/uL (140-400) 394 x10^3/uL (140-400) 329 x10^3/uL (140-400) Neutrophils (%) (Auto) 85 % (31-73) 83 % (31-73) 76 % (31-73) Lymphocytes (%) (Auto) 5 % (24-48) 7 % (24-48) 10 % (24-48) Monocytes (%) (Auto) 8 % (0-9) 7 % (0-9) 9 % (0-9) Eosinophils (%) (Auto) 2 % (0-3) 3 % (0-3) 5 % (0-3) Basophils (%) (Auto) 0 % (0-3) 1 % (0-3) 1 % (0-3) Neutrophils # (Auto) 29.9 x10^3uL (1.8-7.7) 26.1 x10^3uL (1.8-7.7) 14.6 x10^3uL (1.8-7.7) Lymphocytes # (Auto) 1.7 x10^3/uL (1.0-4.8) 2.2 x10^3/uL (1.0-4.8) 1.9 x10^3/uL (1.0-4.8) Monocytes # (Auto) 3.0 x10^3/uL (0.0-1.1) 2.3 x10^3/uL (0.0-1.1) 1.8 x10^3/uL (0.0-1.1) Eosinophils # (Auto) 0.6 x10^3/uL (0.0-0.7) 0.9 x10^3/uL (0.0-0.7) 0.9 x10^3/uL (0.0-0.7) Basophils # (Auto) 0.1 x10^3/uL (0.0-0.2) 0.2 x10^3/uL (0.0-0.2) 0.1 x10^3/uL (0.0-0.2) Segmented Neutrophils % 86 % (35-66) Band Neutrophils % 4 % (0-9) Lymphocytes % 4 % (24-48) Monocytes % 6 % (0-10) Toxic Granulation Present Toxic Vacuolation Present Platelet Estimate Adequate (ADEQUATE) Sodium Level 138 mmol/L (136-145) Potassium Level 4.5 mmol/L (3.5-5.1) Chloride Level 102 mmol/L (98-107) Carbon Dioxide Level 30 mmol/L (21-32) Anion Gap 6 (6-14) Blood Urea Nitrogen 24 mg/dL (8-26) Creatinine 4.3 mg/dL (0.7-1.3) Estimated GFR (Cockcroft-Gault) 14.5 Glucose Level 96 mg/dL (70-99) Calcium Level 8.0 mg/dL (8.5-10.1) Laboratory Tests Test 09/16/18 10:40 09/17/18 04:05 White Blood Count 31.6 x10^3/uL (4.0-11.0) 19.3 x10^3/uL (4.0-11.0) Red Blood Count 3.01 x10^6/uL (4.30-5.70) 2.55 x10^6/uL (4.30-5.70) Hemoglobin 8.0 g/dL (13.0-17.5) 6.9 g/dL (13.0-17.5) Hematocrit 25.9 % (39.0-53.0) 22.0 % (39.0-53.0) Mean Corpuscular Volume 86 fL (79-100) 87 fL (79-100) Mean Corpuscular Hemoglobin 27 pg (25-35) 27 pg (25-35) Mean Corpuscular Hemoglobin Concent 31 g/dL (31-37) 32 g/dL (31-37) Red Cell Distribution Width 17.0 % (11.5-14.5) 17.0 % (11.5-14.5) Platelet Count 394 x10^3/uL (140-400) 329 x10^3/uL (140-400) Neutrophils (%) (Auto) 83 % (31-73) 76 % (31-73) Lymphocytes (%) (Auto) 7 % (24-48) 10 % (24-48) Monocytes (%) (Auto) 7 % (0-9) 9 % (0-9) Eosinophils (%) (Auto) 3 % (0-3) 5 % (0-3) Basophils (%) (Auto) 1 % (0-3) 1 % (0-3) Neutrophils # (Auto) 26.1 x10^3uL (1.8-7.7) 14.6 x10^3uL (1.8-7.7) Lymphocytes # (Auto) 2.2 x10^3/uL (1.0-4.8) 1.9 x10^3/uL (1.0-4.8) Monocytes # (Auto) 2.3 x10^3/uL (0.0-1.1) 1.8 x10^3/uL (0.0-1.1) Eosinophils # (Auto) 0.9 x10^3/uL (0.0-0.7) 0.9 x10^3/uL (0.0-0.7) Basophils # (Auto) 0.2 x10^3/uL (0.0-0.2) 0.1 x10^3/uL (0.0-0.2) Medications Active Scripts Medications Dose Route/Sig Max Daily Dose Days Date Category [Pantoprazole] 40 MG Tablet.dr 40 Mg PO BIDAC 30 08/25/18 Rx [Darbepoetin [place] In Polysorbat] 60 MCG/0.3 ML Disp.syrin 60 Mcg SQ WEEKLYHS 7 08/25/18 Rx Poly-Iron (Iron Polysaccharides Complex) 150 Mg Capsule 150 Mg PO BID66 30 08/25/18 Rx Impression . 1. Acute recurrent hypoxic respiratory failure secondary to multifactorial etiologies including recent subacute pericardial effusion with early tamponade physiology, underlying chronic obstructive pulmonary disease, anemia, bilateral pleural effusions more loculated on the left and encephalopathy. 2. Abnormal CT chest with persistent loculated left-sided pleural effusion. s/ p left chest tube., removal 09/15 3. Moderate to large pericardial effusion, status post pericardial window. 4. History of small pulmonary embolism last month, which subsequently resolved. He was not treated as at that time he was having severe anemia and gastrointestinal bleed. No DVT/ No history of inferior vena cava filter. 5. End-stage renal disease, on hemodialysis. 6. Underlying chronic obstructive pulmonary disease. 7. Low-grade fever, which has responded to current antibiotic. 8. H/O Cavitary nodules, likely related to staph infection, overall improved. 9. ? sepsis, b cx, GRAM NEGATIVE RODS AND GRAMS POSITIVE COCCI SEEN IN 1 OF 2 BOTTLES; Plan . 1. s/p left chest tube for loculated left effusion dced on 09/15, bc gnr and gp cocci, vanc/Micafungin added, 2. s/p pericardial per Thoracic Surgery. 3. 02 titration 4. Continue antibiotic Zosyn, per id. 5. Follow all cultures including pericardium cultures, GRAM NEGATIVE RODS AND GRAMS POSITIVE COCCI SEEN IN 1 OF 2 BOTTLES;. 6. Follow ID recommendation. 7. Follow Cardiology recommendation regarding recent decline in his ejection fraction of 30%. 8. Discussed with RN, pt. RUDI DAVALOS MD Sep 17, 2018 10:29
[2018-09-17 10:43] VITALS: BP 137/72
--- NOTE | 2018-09-17 11:21 | NUR ---
SS following up with discharge planning. Chest tube removed on 09/15/2018. SS met with pt's RN. Pt continues to plan to return to home with mother at discharge. Pt's RN reported that pt has hemoglobin of 6.9 and not stable for discharge at this time. Pt's RN reported that yesterday pt's white count was 31.6 but today his white count is 19.3. Pt is currently on room air. Pt will discharge to home with mother when medically stable for discharge.
--- NOTE | 2018-09-17 12:26 | PDOC ---
Renal-Progress Notes Subjective Notes Notes TIRED History of Present Illness Hx of present illness STABLE Vitals Vitals Vital Signs Date Time Temp Pulse Resp B/P (MAP) Pulse Ox O2 Delivery O2 Flow Rate FiO2 09/17/18 10:43 98.1 87 18 137/72 (93) 93 Room Air 98.1 09/16/18 07:40 2.0 Weight Weight [ ] I.O. Intake and Output Intake and Output 09/17/18 07:00 Intake Total 900 ml Output Total 350 ml Balance 550 ml Intake Oral 900 ml Output Urine Total 350 ml Labs Labs Laboratory Tests Test 09/17/18 04:05 White Blood Count 19.3 x10^3/uL (4.0-11.0) Red Blood Count 2.55 x10^6/uL (4.30-5.70) Hemoglobin 6.9 g/dL (13.0-17.5) Hematocrit 22.0 % (39.0-53.0) Mean Corpuscular Volume 87 fL (79-100) Mean Corpuscular Hemoglobin 27 pg (25-35) Mean Corpuscular Hemoglobin Concent 32 g/dL (31-37) Red Cell Distribution Width 17.0 % (11.5-14.5) Platelet Count 329 x10^3/uL (140-400) Neutrophils (%) (Auto) 76 % (31-73) Lymphocytes (%) (Auto) 10 % (24-48) Monocytes (%) (Auto) 9 % (0-9) Eosinophils (%) (Auto) 5 % (0-3) Basophils (%) (Auto) 1 % (0-3) Neutrophils # (Auto) 14.6 x10^3uL (1.8-7.7) Lymphocytes # (Auto) 1.9 x10^3/uL (1.0-4.8) Monocytes # (Auto) 1.8 x10^3/uL (0.0-1.1) Eosinophils # (Auto) 0.9 x10^3/uL (0.0-0.7) Basophils # (Auto) 0.1 x10^3/uL (0.0-0.2) Micro Micro Microbiology 09/15/18 Blood Culture - Final, Complete 09/12/18 Anaerobic/Aerobic Culture, Resulted Pending 09/12/18 Anaerobic Culture Result 1 (NATHAN), Resulted Pending 09/12/18 Aerobic Culture - Final, Resulted 09/12/18 Aerobic Culture Result 1 (NATHAN) - Final, Resulted 09/12/18 Gram Stain - Final, Resulted 09/12/18 Gram Stain Result 1 (NATHAN) - Final, Resulted 09/12/18 Gram Stain Result 2 (NATHAN) - Final, Resulted Review of Systems Constitutional: yes: alert, oriented Ears/Nose/Throat: Yes: no symptom reported Eyes: Yes: no symptom reported Pulmonary: Yes dyspnea Cardiovascular: Yes no symptom reported Gastrointestional: Yes: no symptom reported Genitourinary: Yes: no symptom reported Musculoskeletal: Yes: no symptom reported Skin: Yes no symptom reported Psychiatric/Neurological: Yes: no symptom reported Endocrine: Yes: no symptom reported Physical Exam General Appearance: no apparent distress Skin: warm Respiratory: bilateral CTA Heart: S1S2, RRR Abdomen: soft, bowel sounds present Genitourinary: bladder flat Extremities: pulses present Neurology: alert, other (drowsy) Assessment Assessment hief Complaint acute hypoxic respiratory failure at admit, resolved Moderate ongoing bilateral pulmonary infiltrates and nodules s/p left chest tube for loculated left effusion . He also has a small right pleural thickening and effusion. There is also a small left lower lobe loculated organized effusion. The effusion is exudate , ESRD on HD TTHS Anemia of ESRD Recent massive gI bleed s./p IR coiling - hgb 9.5 weakness small to mod pericardial effusion. Trops normal, pericardial effusion appears to be subacute in nature with fibrinous components. The effusion is mostly posteriorly layered. status post pericardial window on 09/10/2018 Acute on chronic systolic CHF Cardiomyopathy: EF 35% Patient has exhibiited drug seeking behaviour will continue to monitor CRBSI? will do new set of blood cultures from the dialysis catheter. follow all cultures IMP DIASTOLIC AND SYSTOLIC ACUTE ON CHRONIC CHF CARDIOMYOPATHY ACUTE HYPOXIC RESP FAILURE ANEMIA ? DRUG SEEKING ESRD DUE TO CHRONIC HYDRONEPHROSIS-TTS HTN HX NON COMPLIANCE HX PERICARDIAL EFFUSION-S/P WINDOW BACTEREMIA-SEPSIS S/P CHEST TUBE FOR EFFUSION PLAN [facility]ANESP HD [facility] DIALYSIS LINE OUT DEPENDING OF CX AND ID RECOMMENDATION WILL FOLLOW MARIIA VIDAL MD Sep 17, 2018 12:26
--- NOTE | 2018-09-17 14:07 | PATHOLOGY ---
Note [facility] Accession Number: [id number] TESTS RESULT FLAG UNITS REF RANGE LAB Clinician Provided Cytology Information No. of containers..01 Other (Miscellaneous) Source: LEFT PLEURAL FLUID DIAGNOSIS: 02 LEFT PLEURAL FLUID NEGATIVE FOR MALIGNANT CELLS. DEGENERATED MESOTHELIAL CELLS, NEUTROPHILS, AND RED BLOOD CELLS IDENTIFIED WITHIN A BACKGROUND OF PROTEINACEOUS MATERIAL. THIS INTERPRETATION INCLUDES EVALUATION OF A CELL BLOCK. Signed out by: 02 Dominik Perera MD, Pathologist NPI- [id number] Performed by: Ramón Piper, Destination Specialist ([facility]) Gross description: 01 5ML, THICK PINK, CLOUDY /LCS FLAG LEGEND: L-Low Normal,H-High Normal,LL-Alert Low,HH-Alert High <-Panic Low,>-Panic High,A-Abnormal,AA-Critical Abnormal Performed at: [address] [place] [address] Torres Coello MD, [address] [place] [address] [address] [place] [address] Dominik Perera MD, Specimen Comment: A courtesy copy of this report has been sent to Specimen Comment: [phone]. Specimen Comment: Report sent to Specimen Comment: A duplicate report has been generated due to demographic updates. Performed at: [address] [place] [address] [facility] [address], [place], [place] [id number] MD Torres Coello MD Phone: [phone]
[2018-09-17] MEDS: MICAFUNGIN 100 MG in IV DEXTROSE 5% 100ML 100 ML IV SCH (14:47)
[2018-09-17 14:56] VITALS: BP 149/79
[2018-09-17] MEDS: VANCOMYCIN PER PHARMACY MC PRN (17:26)
--- NOTE | 2018-09-17 18:54 | PDOC ---
PROGRESS NOTES Chief Complaint Chief Complaint acute hypoxic respiratory failure at admit, resolved Moderate ongoing bilateral pulmonary infiltrates and nodules s/p left chest tube for loculated left effusion . He also has a small right pleural thickening and effusion. There is also a small left lower lobe loculated organized effusion. The effusion is exudate , ESRD on HD TTHS Anemia of ESRD Recent massive gI bleed s./p IR coiling - hgb 9.5 weakness small to mod pericardial effusion. Trops normal, pericardial effusion appears to be subacute in nature with fibrinous components. The effusion is mostly posteriorly layered. status post pericardial window on 09/10/2018 Acute on chronic systolic CHF Cardiomyopathy: EF 35% Patient has exhibiited drug seeking behaviour will continue to monitor CRBSI? positive new set of blood cultures from the dialysis catheter. follow all cultures Plan: continue antibiotic therapy awaiting for cultures and sensitivities. ATB as per ID dialysis as scheduled follow cardiology recommendations to optimize medical therapy for his cardiomyopathy History of Present Illness History of Present Illness No new complaints, no fever overnight, chills resolved, hemodyanmically stable. Vitals Vitals Vital Signs Date Time Temp Pulse Resp B/P (MAP) Pulse Ox O2 Delivery O2 Flow Rate FiO2 09/17/18 14:56 98.0 83 18 149/79 (102) 92 Room Air 98.0 09/16/18 07:40 2.0 Physical Exam Physical Exam GENERAL: Sleeping HEENT: Oral cavity, pharynx is clear. Dentures in place NECK: Supple, no JVD. LUNGS: Decreased in the bases. L CT out HEART: S1, S2. ABDOMEN: Flat. No guarding, no rebound. GENITOURINARY: Suprapubic Holloway is in place EXTREMITIES: No clubbing, cyanosis or gross edema. No signs of any splinter hemorrhages in his toes. He does have a hammertoe in his left foot. SKIN: Warm to touch without signs of rash. NEUROLOGIC: Arouses to name Right-sided chest hemodialysis catheter without signs of complications. General: mild distress Heart: Regular rate, No murmurs (muffled), Other (JVD) Lungs: Other (l ct , dull left base, ) Abdomen: Soft, No tenderness, No hepatosplenomegaly Extremities: No clubbing, No cyanosis Skin: No significant lesion Labs LABS Laboratory Tests Test 09/17/18 04:05 White Blood Count 19.3 x10^3/uL (4.0-11.0) Red Blood Count 2.55 x10^6/uL (4.30-5.70) Hemoglobin 6.9 g/dL (13.0-17.5) Hematocrit 22.0 % (39.0-53.0) Mean Corpuscular Volume 87 fL (79-100) Mean Corpuscular Hemoglobin 27 pg (25-35) Mean Corpuscular Hemoglobin Concent 32 g/dL (31-37) Red Cell Distribution Width 17.0 % (11.5-14.5) Platelet Count 329 x10^3/uL (140-400) Neutrophils (%) (Auto) 76 % (31-73) Lymphocytes (%) (Auto) 10 % (24-48) Monocytes (%) (Auto) 9 % (0-9) Eosinophils (%) (Auto) 5 % (0-3) Basophils (%) (Auto) 1 % (0-3) Neutrophils # (Auto) 14.6 x10^3uL (1.8-7.7) Lymphocytes # (Auto) 1.9 x10^3/uL (1.0-4.8) Monocytes # (Auto) 1.8 x10^3/uL (0.0-1.1) Eosinophils # (Auto) 0.9 x10^3/uL (0.0-0.7) Basophils # (Auto) 0.1 x10^3/uL (0.0-0.2) Assessment and Plan Assessmemt and Plan Problems Medical Problems: (1) Dyspnea Status: Acute Comment Review of Relevant I have reviewed the following items allyson (where applicable) has been applied. Labs Laboratory Tests Test 09/16/18 04:00 09/16/18 10:40 09/17/18 04:05 White Blood Count 35.3 x10^3/uL (4.0-11.0) 31.6 x10^3/uL (4.0-11.0) 19.3 x10^3/uL (4.0-11.0) Red Blood Count 2.68 x10^6/uL (4.30-5.70) 3.01 x10^6/uL (4.30-5.70) 2.55 x10^6/uL (4.30-5.70) Hemoglobin 7.1 g/dL (13.0-17.5) 8.0 g/dL (13.0-17.5) 6.9 g/dL (13.0-17.5) Hematocrit 23.2 % (39.0-53.0) 25.9 % (39.0-53.0) 22.0 % (39.0-53.0) Mean Corpuscular Volume 86 fL (79-100) 86 fL (79-100) 87 fL (79-100) Mean Corpuscular Hemoglobin 27 pg (25-35) 27 pg (25-35) 27 pg (25-35) Mean Corpuscular Hemoglobin Concent 31 g/dL (31-37) 31 g/dL (31-37) 32 g/dL (31-37) Red Cell Distribution Width 17.0 % (11.5-14.5) 17.0 % (11.5-14.5) 17.0 % (11.5-14.5) Platelet Count 315 x10^3/uL (140-400) 394 x10^3/uL (140-400) 329 x10^3/uL (140-400) Neutrophils (%) (Auto) 85 % (31-73) 83 % (31-73) 76 % (31-73) Lymphocytes (%) (Auto) 5 % (24-48) 7 % (24-48) 10 % (24-48) Monocytes (%) (Auto) 8 % (0-9) 7 % (0-9) 9 % (0-9) Eosinophils (%) (Auto) 2 % (0-3) 3 % (0-3) 5 % (0-3) Basophils (%) (Auto) 0 % (0-3) 1 % (0-3) 1 % (0-3) Neutrophils # (Auto) 29.9 x10^3uL (1.8-7.7) 26.1 x10^3uL (1.8-7.7) 14.6 x10^3uL (1.8-7.7) Lymphocytes # (Auto) 1.7 x10^3/uL (1.0-4.8) 2.2 x10^3/uL (1.0-4.8) 1.9 x10^3/uL (1.0-4.8) Monocytes # (Auto) 3.0 x10^3/uL (0.0-1.1) 2.3 x10^3/uL (0.0-1.1) 1.8 x10^3/uL (0.0-1.1) Eosinophils # (Auto) 0.6 x10^3/uL (0.0-0.7) 0.9 x10^3/uL (0.0-0.7) 0.9 x10^3/uL (0.0-0.7) Basophils # (Auto) 0.1 x10^3/uL (0.0-0.2) 0.2 x10^3/uL (0.0-0.2) 0.1 x10^3/uL (0.0-0.2) Segmented Neutrophils % 86 % (35-66) Band Neutrophils % 4 % (0-9) Lymphocytes % 4 % (24-48) Monocytes % 6 % (0-10) Toxic Granulation Present Toxic Vacuolation Present Platelet Estimate Adequate (ADEQUATE) Sodium Level 138 mmol/L (136-145) Potassium Level 4.5 mmol/L (3.5-5.1) Chloride Level 102 mmol/L (98-107) Carbon Dioxide Level 30 mmol/L (21-32) Anion Gap 6 (6-14) Blood Urea Nitrogen 24 mg/dL (8-26) Creatinine 4.3 mg/dL (0.7-1.3) Estimated GFR (Cockcroft-Gault) 14.5 Glucose Level 96 mg/dL (70-99) Calcium Level 8.0 mg/dL (8.5-10.1) Laboratory Tests Test 09/17/18 04:05 White Blood Count 19.3 x10^3/uL (4.0-11.0) Red Blood Count 2.55 x10^6/uL (4.30-5.70) Hemoglobin 6.9 g/dL (13.0-17.5) Hematocrit 22.0 % (39.0-53.0) Mean Corpuscular Volume 87 fL (79-100) Mean Corpuscular Hemoglobin 27 pg (25-35) Mean Corpuscular Hemoglobin Concent 32 g/dL (31-37) Red Cell Distribution Width 17.0 % (11.5-14.5) Platelet Count 329 x10^3/uL (140-400) Neutrophils (%) (Auto) 76 % (31-73) Lymphocytes (%) (Auto) 10 % (24-48) Monocytes (%) (Auto) 9 % (0-9) Eosinophils (%) (Auto) 5 % (0-3) Basophils (%) (Auto) 1 % (0-3) Neutrophils # (Auto) 14.6 x10^3uL (1.8-7.7) Lymphocytes # (Auto) 1.9 x10^3/uL (1.0-4.8) Monocytes # (Auto) 1.8 x10^3/uL (0.0-1.1) Eosinophils # (Auto) 0.9 x10^3/uL (0.0-0.7) Basophils # (Auto) 0.1 x10^3/uL (0.0-0.2) Microbiology 09/15/18 Blood Culture - Final, Complete 09/12/18 Anaerobic/Aerobic Culture, Resulted Pending 09/12/18 Anaerobic Culture Result 1 (NATHAN), Resulted Pending 09/12/18 Aerobic Culture - Final, Resulted 09/12/18 Aerobic Culture Result 1 (NATHAN) - Final, Resulted 09/12/18 Gram Stain - Final, Resulted 09/12/18 Gram Stain Result 1 (NATHAN) - Final, Resulted 09/12/18 Gram Stain Result 2 (NATHAN) - Final, Resulted Medications Current Medications Iohexol (Omnipaque 350 Mg/ml) 90 ml 1X ONCE IV Last administered on 09/05/18at 17:21; Start 09/05/18 at 17:15; Stop 09/05/18 at 17:16; Status DC Info (CONTRAST GIVEN -- Rx MONITORING) 1 each PRN DAILY PRN MC SEE COMMENTS; Start 09/05/18 at 17:15; Stop 09/07/18 at 17:14; Status DC Polysaccharide Iron Complex (Niferex 150) 150 mg BID66 PO Last administered on 09/17/18at 18:04; Start 09/05/18 at 21:00 Darbepoetin Napoleon (Aranesp) 60 mcg WEEKLYHS SQ ; Start 09/10/18 at 21:00; Status Cancel Pantoprazole Sodium (Protonix) 40 mg BIDAC PO Last administered on 09/05/18 20 :57; Start 09/05/18 at 21:00; Stop 09/06/18 at 10:25; Status DC Vitamin B Complex/ Vitamin C (Massiel-Darrel) 1 tab DAILY PO Last administered on at 09:22; Start 09/06/18 at 09:00 Calcium Acetate (Phoslo) 667 mg TIDWMEALS PO Last administered on 09/17/18 18: 04; Start 09/06/18 at 08:00 Piperacillin Sod/ Tazobactam Sod (Zosyn Per Pharmacy) 1 each PRN DAILY PRN MC SEE COMMENTS; Start 09/05/18 at 17:45 Piperacillin Sod/ Tazobactam Sod 2.25 gm/Sodium Chloride 50 ml @ 100 mls/hr 1X ONCE IV Last administered on 09/05/18 18:17; Start 09/05/18 at 17:45; Stop 09/05/18 at 18:14; Status DC Fentanyl Citrate (Fentanyl 2ml Vial) 50 mcg 1X ONCE IV Last administered on at 18:13; Start 09/05/18 at 18:00; Stop 09/05/18 at 18:01; Status DC Piperacillin Sod/ Tazobactam Sod 2.25 gm/Sodium Chloride 50 ml @ 100 mls/hr Q8HRS IV Last administered on 09/17/18at 14:46; Start 09/06/18 at 00:00 Tramadol HCl (Ultram) 50 mg PRN Q6HRS PRN PO MODERATE PAIN Last administered on 09/13/18at 03:57; Start 09/06/18 at 01:30 Acetaminophen (Tylenol) 650 mg PRN Q6HRS PRN PO MILD PAIN Last administered on 09/15/18at 12:56; Start 09/06/18 at 01:30 Sodium Chloride 1,000 ml @ 1,000 mls/hr Q1H PRN IV hypotension; Start 09/06/18 at 08:09; Stop 09/06/18 at 14:08; Status DC Albumin Human 200 ml @ 200 mls/hr 1X PRN PRN IV Hypotension; Start 09/06/18 at 08:15; Stop 09/06/18 at 14:14; Status DC Acetaminophen (Tylenol) 500 mg 1X PRN PRN PO MILD PAIN / TEMP; Start 09/06/18 at 08:15; Stop 09/07/18 at 08:14; Status DC Diphenhydramine HCl (Benadryl) 25 mg 1X PRN PRN IV ITCHING; Start 09/06/18 at 08:15; Stop 09/07/18 at 08:14; Status DC Diphenhydramine HCl (Benadryl) 25 mg 1X PRN PRN IV ITCHING; Start 09/06/18 at 08:15; Stop 09/07/18 at 08:14; Status DC Sodium Chloride 1,000 ml @ 400 mls/hr Q2H30M PRN IV PATENCY; Start 09/06/18 at 08:09; Stop 09/06/18 at 20:08; Status DC Info (PHARMACY MONITORING -- do not chart) 1 each PRN DAILY PRN MC SEE COMMENTS ; Start 09/06/18 at 08:15; Stop 09/13/18 at 08:15; Status DC Metoprolol Succinate (Toprol Xl) 25 mg DAILY PO Last administered on 09/06/18at 14:00; Start 09/06/18 at 11:00; Stop 09/07/18 at 09:00; Status DC Pantoprazole Sodium (Protonix) 40 mg DAILYAC PO Last administered on 09/17/18at 09:23; Start 09/06/18 at 10:15 Fentanyl Citrate (Fentanyl 2ml Vial) 50 mcg 1X ONCE IV Last administered on at 11:54; Start 09/06/18 at 11:30; Stop 09/06/18 at 11:31; Status DC Darbepoetin Napoleon (Aranesp) 60 mcg WEEKLYHS SQ Last administered on 09/13/18at 20 :46; Start 09/06/18 at 21:00 Lactobacillus Rhamnosus (Culturelle) 1 cap BID PO Last administered on at 09:22; Start 09/06/18 at 21:00 Metoprolol Succinate (Toprol Xl) 50 mg DAILY PO Last administered on 09/10/18at 10:36; Start 09/07/18 at 09:00; Stop 09/11/18 at 08:06; Status DC Ondansetron HCl (Zofran) 4 mg PRN Q6HRS PRN IV NAUSEA/VOMITING; Start 09/10/18 at 07:00; Stop 09/10/18 at 18:00; Status DC Fentanyl Citrate (Fentanyl 2ml Vial) 25 mcg PRN Q5MIN PRN IV MILD PAIN; Start 09/10/18 at 07:00; Stop 09/10/18 at 18:00; Status DC Fentanyl Citrate (Fentanyl 2ml Vial) 50 mcg PRN Q5MIN PRN IV MODERATE TO SEVERE PAIN Last administered on 09/10/18at 14:33; Start 09/10/18 at 07:00; Stop 09/10/18 at 18:00; Status DC Morphine Sulfate (Morphine Sulfate) 1 mg PRN Q10MIN PRN IV SEVERE PAIN; Start 09/10/18 at 07:00; Stop 09/10/18 at 18:00; Status DC Ringer's Solution 1,000 ml @ 30 mls/hr Q24H IV ; Start 09/10/18 at 07:00; Stop 09/10/18 at 18:59; Status DC Lidocaine HCl (Xylocaine-Mpf 1% 2ml Vial) 2 ml PRN 1X PRN ID PRIOR TO IV START ; Start 09/10/18 at 07:00; Stop 09/10/18 at 18:00; Status DC Hydromorphone HCl (Dilaudid) 0.5 mg PRN Q10MIN PRN IV SEV PAIN, Second choice; Start 09/10/18 at 07:00; Stop 09/10/18 at 18:00; Status DC Prochlorperazine Edisylate (Compazine) 5 mg PACU PRN PRN IV NAUSEA, MRX1; Start 09/10/18 at 07:00; Stop 09/10/18 at 18:00; Status DC Sodium Chloride 1,000 ml @ 1,000 mls/hr Q1H PRN IV hypotension; Start 09/08/18 at 07:00; Stop 09/08/18 at 12:59; Status DC Sodium Chloride 1,000 ml @ 400 mls/hr Q2H30M PRN IV PATENCY; Start 09/08/18 at 07:00; Stop 09/08/18 at 18:59; Status DC Info (PHARMACY MONITORING -- do not chart) 1 each PRN DAILY PRN MC SEE COMMENTS ; Start 09/08/18 at 08:30; Status UNV Info (PHARMACY MONITORING -- do not chart) 1 each PRN DAILY PRN MC SEE COMMENTS ; Start 09/08/18 at 08:30; Status UNV Sodium Chloride 1,000 ml @ 1,000 mls/hr Q1H PRN IV hypotension; Start 09/10/18 at 07:00; Stop 09/10/18 at 15:00; Status DC Sodium Chloride 1,000 ml @ 400 mls/hr Q2H30M PRN IV PATENCY; Start 09/10/18 at 07:00; Stop 09/10/18 at 18:59; Status DC Info (PHARMACY MONITORING -- do not chart) 1 each PRN DAILY PRN MC SEE COMMENTS ; Start 09/10/18 at 08:00; Status UNV Info (PHARMACY MONITORING -- do not chart) 1 each PRN DAILY PRN MC SEE COMMENTS ; Start 09/10/18 at 08:00; Status UNV Cefazolin Sodium 1 gm/Sodium Chloride 500 ml @ 500 mls/hr 1X ONCE IRR Last administered on 09/10/18at 13:26; Start 09/10/18 at 12:00; Stop 09/10/18 at 12:59 ; Status DC Midazolam HCl (Versed) 2 mg STK-MED ONCE .ROUTE ; Start 09/10/18 at 12:23; Stop 09/10/18 at 12:24; Status DC Midazolam HCl (Versed) 2 mg 1X ONCE IV ; Start 09/10/18 at 12:45; Stop at 12:46; Status DC Dexamethasone Sodium Phosphate (Decadron) 20 mg STK-MED ONCE .ROUTE ; Start at 12:30; Stop 09/10/18 at 12:31; Status DC Lidocaine HCl (Lidocaine Pf 2% Vial) 5 ml STK-MED ONCE .ROUTE ; Start 09/10/18 at 12:30; Stop 09/10/18 at 12:31; Status DC Etomidate (Amidate) 20 mg STK-MED ONCE IV ; Start 09/10/18 at 12:30; Stop at 12:31; Status DC Famotidine (Pepcid Vial) 20 mg STK-MED ONCE .ROUTE ; Start 09/10/18 at 12:30; Stop 2/18/19 at 12:31; Status DC Ondansetron HCl (Zofran) 4 mg STK-MED ONCE .ROUTE ; Start 09/10/18 at 12:30; Stop 09/10/18 at 12:31; Status DC Phenylephrine HCl (Michael-Synephrine Inj) 10 mg STK-MED ONCE .ROUTE ; Start at 12:30; Stop 09/10/18 at 12:31; Status DC Rocuronium [place] (Zemuron) 50 mg STK-MED ONCE .ROUTE ; Start 09/10/18 at 12:30 ; Stop 09/10/18 at 12:31; Status DC Fentanyl Citrate (Fentanyl 2ml Vial) 100 mcg STK-MED ONCE .ROUTE ; Start at 12:30; Stop 09/10/18 at 12:31; Status DC Midazolam HCl (Versed) 2 mg STK-MED ONCE .ROUTE ; Start 09/10/18 at 12:30; Stop 09/10/18 at 12:31; Status DC Neostigmine Methylsulfate (Bloxiverz) 10 mg STK-MED ONCE .ROUTE ; Start at 13:40; Stop 09/10/18 at 13:41; Status DC Glycopyrrolate (Robinul) 1 mg STK-MED ONCE .ROUTE ; Start 09/10/18 at 13:40; Stop 09/10/18 at 13:41; Status DC Sevoflurane (Ultane) 60 ml STK-MED ONCE IH ; Start 09/10/18 at 13:58; Stop 09/10 at 13:59; Status DC Fentanyl Citrate (Fentanyl 2ml Vial) 100 mcg STK-MED ONCE .ROUTE ; Start at 14:14; Stop 09/10/18 at 14:15; Status DC Lorazepam (Ativan) 2 mg 1X ONCE PO Last administered on 09/10/18at 22:00; Start 09/10/18 at 19:45; Stop 09/10/18 at 19:49; Status DC Lorazepam (Ativan) 1 mg PRN Q6HRS PRN PO ANXIETY / AGITATION Last administered on 09/11/18at 19:44; Start 09/10/18 at 19:45 Quetiapine Fumarate (SEROquel) 25 mg HS PO Last administered on 09/16/18at 21:42 ; Start 09/10/18 at 21:00 Lorazepam (Ativan) 2 mg PRN Q4HRS PRN IV ANXIETY / AGITATION Last administered on 09/11/18at 21:20; Start 09/10/18 at 22:30 Haloperidol Lactate (Haldol Inj) 5 mg 1X ONCE IVP ; Start 09/10/18 at 23:00; Stop 09/10/18 at 23:01; Status DC Sodium Chloride 1,000 ml @ 1,000 mls/hr Q1H PRN IV hypotension; Start 09/11/18 at 07:06; Stop 09/11/18 at 13:05; Status DC Albumin Human 200 ml @ 200 mls/hr 1X PRN PRN IV Hypotension; Start 09/11/18 at 07:15; Stop 09/11/18 at 13:14; Status DC Sodium Chloride 1,000 ml @ 400 mls/hr Q2H30M PRN IV PATENCY; Start 09/11/18 at 07:06; Stop 09/11/18 at 19:05; Status DC Info (PHARMACY MONITORING -- do not chart) 1 each PRN DAILY PRN MC SEE COMMENTS ; Start 09/11/18 at 07:15; Status UNV Info (PHARMACY MONITORING -- do not chart) 1 each PRN DAILY PRN MC SEE COMMENTS ; Start 09/11/18 at 07:15; Status UNV Metoprolol Succinate (Toprol Xl) 25 mg DAILY PO Last administered on 09/17/18at 09:23; Start 09/11/18 at 09:00 Haloperidol Lactate (Haldol Inj) 5 mg PRN Q3HRS PRN IVP AGITATION 2ND CHOICE Last administered on 09/11/18at 22:09; Start 09/11/18 at 22:00 Acetaminophen/ Hydrocodone Bitart (Lortab 5/325) 1 tab 1X ONCE PO Last administered on 09/12/18at 22:03; Start 09/12/18 at 22:00; Stop 09/12/18 at 22:01 ; Status DC Sodium Chloride 1,000 ml @ 1,000 mls/hr Q1H PRN IV hypotension; Start 09/13/18 at 08:06; Stop 09/13/18 at 14:05; Status DC Albumin Human 200 ml @ 200 mls/hr 1X PRN PRN IV Hypotension; Start 09/13/18 at 08:15; Stop 09/13/18 at 14:14; Status DC Acetaminophen (Tylenol) 500 mg 1X PRN PRN PO MILD PAIN / TEMP; Start 09/13/18 at 08:15; Stop 09/14/18 at 08:14; Status DC Diphenhydramine HCl (Benadryl) 25 mg 1X PRN PRN IV ITCHING; Start 09/13/18 at 08:15; Stop 09/14/18 at 08:14; Status DC Diphenhydramine HCl (Benadryl) 25 mg 1X PRN PRN IV ITCHING; Start 09/13/18 at 08:15; Stop 09/14/18 at 08:14; Status DC Sodium Chloride 1,000 ml @ 400 mls/hr Q2H30M PRN IV PATENCY; Start 09/13/18 at 08:06; Stop 09/13/18 at 20:05; Status DC Info (PHARMACY MONITORING -- do not chart) 1 each PRN DAILY PRN MC SEE COMMENTS ; Start 09/13/18 at 08:15 Morphine Sulfate (Ms Contin) 10 mg BID PRN PO PAIN; Start 09/14/18 at 11:00; Stop 09/14/18 at 11:09; Status DC Morphine Sulfate (Ms Contin) 15 mg BID PO Last administered on 09/17/18at 09:22 ; Start 09/14/18 at 11:30 Sodium Chloride 1,000 ml @ 1,000 mls/hr Q1H PRN IV hypotension; Start 09/15/18 at 07:14; Stop 09/15/18 at 13:13; Status DC Albumin Human 200 ml @ 200 mls/hr 1X PRN PRN IV Hypotension; Start 09/15/18 at 07:15; Stop 09/15/18 at 13:14; Status DC Sodium Chloride (Normal Saline Flush) 10 ml 1X PRN PRN IV MARINE MECHANIC catheter pack; Start 09/15/18 at 07:15; Stop 09/16/18 at 07:14; Status DC Sodium Chloride 1,000 ml @ 400 mls/hr Q2H30M PRN IV PATENCY; Start 09/15/18 at 07:14; Stop 09/15/18 at 19:13; Status DC Info (PHARMACY MONITORING -- do not chart) 1 each PRN DAILY PRN MC SEE COMMENTS ; Start 09/15/18 at 07:15; Stop 09/15/18 at 07:20; Status DC Info (PHARMACY MONITORING -- do not chart) 1 each PRN DAILY PRN MC SEE COMMENTS ; Start 09/15/18 at 07:15; Stop 09/15/18 at 07:20; Status DC Vancomycin HCl 1.25 gm/Sodium Chloride 250 ml @ 166.667 mls/hr 1X ONCE IV Last administered on 09/15/18at 12:58; Start 09/15/18 at 12:30; Stop 09/15/18 at 13:59; Status DC Vancomycin HCl (Vanco Per Pharmacy) 1 each PRN DAILY PRN MC SEE COMMENTS Last administered on 09/17/18at 17:26; Start 09/15/18 at 12:30 Micafungin Sodium 100 mg/Dextrose 100 ml @ 100 mls/hr Q24H IV Last administered on 09/17/18at 14:47; Start 09/15/18 at 14:00 Vancomycin HCl (Vancomycin Random Level) 1 each 1X ONCE MC ; Start 09/18/18 at 05:00; Stop 09/18/18 at 05:01 Iohexol (Omnipaque 240 Mg/ml) 50 ml 1X ONCE PO Last administered on 09/16/18at 12:15; Start 09/16/18 at 12:15; Stop 09/16/18 at 12:16; Status DC Info (CONTRAST GIVEN -- Rx MONITORING) 1 each PRN DAILY PRN MC SEE COMMENTS; Start 09/16/18 at 12:15; Stop 09/18/18 at 12:14 Active Scripts Active [Pantoprazole] 40 MG Tablet.dr 40 Mg PO BIDAC 30 Days [Darbepoetin Napoleon In Polysorbat] 60 MCG/0.3 ML Disp.syrin 60 Mcg SQ WEEKLYHS 7 Days Poly-Iron (Iron Polysaccharides Complex) 150 Mg Capsule 150 Mg PO BID66 30 Days Vitals/I & O Vital Sign - Last 24 Hours 09/16/18 09/16/18 09/16/18 09/17/18 19:45 20:45 23:45 03:10 Temp 97.9 98.1 98.3 97.9 98.1 98.3 Pulse 89 87 93 Resp 18 B/P (MAP) 138/65 (89) 133/69 (90) 140/70 (93) Pulse Ox 95 94 94 O2 Delivery Room Air Room Air Room Air Room Air 09/17/18 09/17/18 09/17/18 09/17/18 07:30 07:41 09:22 09:23 Temp 98.1 98.1 Pulse 93 93 Resp 18 B/P (MAP) 126/66 (86) 126/66 Pulse Ox 90 O2 Delivery Room Air Room Air Room Air 09/17/18 09/17/18 10:43 14:56 Temp 98.1 98.0 98.1 98.0 Pulse 87 83 Resp 18 18 B/P (MAP) 137/72 (93) 149/79 (102) Pulse Ox 93 92 O2 Delivery Room Air Room Air Intake and Output 09/16/18 09/16/18 09/17/18 14:59 22:59 06:59 Intake Total 600 ml 300 ml Output Total 350 ml Balance 600 ml -50 ml JAIR BARRERA MD Sep 17, 2018 18:54
[2018-09-17 19:30] VITALS: BP 147/80
[2018-09-17 19:36] LABS: HEMATOCRIT 24.2 % (39.0-53.0); HEMOGLOBIN 7.6 g/dL (13.0-17.5); RED BLOOD COUNT 2.81 x10^6/uL (4.30-5.70); RED CELL DISTRIBUTION WIDTH 16.7 % (11.5-14.5); WHITE BLOOD COUNT 16.9 x10^3/uL (4.0-11.0)
[2018-09-17] MEDS: QUEtiapine 25 MG TABLET. PO SCH (20:40)
[2018-09-17 23:05] VITALS: BP 133/73
[2018-09-18 03:30] VITALS: BP 139/81
[2018-09-18] MEDS ORDERED: VANCOMYCIN RANDOM LEVEL. MC ONE (05:00)
[2018-09-18 05:33] LABS: HEMATOCRIT 23.4 % (39.0-53.0); HEMOGLOBIN 7.2 g/dL (13.0-17.5); RED BLOOD COUNT 2.72 x10^6/uL (4.30-5.70); RED CELL DISTRIBUTION WIDTH 17.3 % (11.5-14.5); WHITE BLOOD COUNT 15.6 x10^3/uL (4.0-11.0)
[2018-09-18] MEDS: IRON POLYSACCHARIDE COMPLEX 150 MG CAPSULE PO SCH ×2 (06:28→18:00)
[2018-09-18] MEDS: PIPERACILLIN/TAZOBACTAM 2.25 GM in IV NORMAL SALINE 50ML 50 ML IV SCH ×3 (06:28→22:08)
[2018-09-18] MEDS: PANTOPRAZOLE 40 MG TABLET.DR. PO SCH ×2 (06:28→14:15)
[2018-09-18 06:34] LABS: CALCIUM 8.3 mg/dL (8.5-10.1); CREATININE 7.3 mg/dL (0.7-1.3); GFR 7.9
[2018-09-18 07:00] VITALS: BP 140/77
[2018-09-18] MEDS ORDERED: IV NORMAL SALINE 1000ML BAG 1,000 ML IV PRN ×2 (07:00)
[2018-09-18] MEDS: CALCIUM ACETATE 667 MG CAPSULE PO SCH ×3 (08:00→17:00)
--- NOTE | 2018-09-18 08:03 | PDOC ---
Infectious Disease Note Subjective Subjective feeling better, though sleepy through HD ROS ROS no n/v/d/fever Vital Sign Vital Signs Vital Signs Date Time Temp Pulse Resp B/P (MAP) Pulse Ox O2 Delivery O2 Flow Rate FiO2 09/18/18 07:00 98.1 88 18 140/77 (98) 92 Room Air 98.1 Physical Exam PHYSICAL EXAM GENERAL: Sleeping HEENT: Oral cavity, pharynx is clear. Dentures in place NECK: Supple, no JVD. LUNGS: Decreased in the bases. L CT out HEART: S1, S2. ABDOMEN: Flat. No guarding, no rebound. GENITOURINARY: Suprapubic Holloway is in place EXTREMITIES: No clubbing, cyanosis or gross edema. No signs of any splinter hemorrhages in his toes. He does have a hammertoe in his left foot. SKIN: Warm to touch without signs of rash. NEUROLOGIC: Arouses to name Right-sided chest hemodialysis catheter without signs of complications. Labs Lab Laboratory Tests Test 09/17/18 19:25 09/18/18 05:00 White Blood Count 16.9 x10^3/uL (4.0-11.0) 15.6 x10^3/uL (4.0-11.0) Red Blood Count 2.81 x10^6/uL (4.30-5.70) 2.72 x10^6/uL (4.30-5.70) Hemoglobin 7.6 g/dL (13.0-17.5) 7.2 g/dL (13.0-17.5) Hematocrit 24.2 % (39.0-53.0) 23.4 % (39.0-53.0) Mean Corpuscular Volume 86 fL (79-100) 86 fL (79-100) Mean Corpuscular Hemoglobin 27 pg (25-35) 27 pg (25-35) Mean Corpuscular Hemoglobin Concent 31 g/dL (31-37) 31 g/dL (31-37) Red Cell Distribution Width 16.7 % (11.5-14.5) 17.3 % (11.5-14.5) Platelet Count 385 x10^3/uL (140-400) 373 x10^3/uL (140-400) Sodium Level 139 mmol/L (136-145) Potassium Level 5.0 mmol/L (3.5-5.1) Chloride Level 102 mmol/L (98-107) Carbon Dioxide Level 25 mmol/L (21-32) Anion Gap 12 (6-14) Blood Urea Nitrogen 52 mg/dL (8-26) Creatinine 7.3 mg/dL (0.7-1.3) Estimated GFR (Cockcroft-Gault) 7.9 Glucose Level 85 mg/dL (70-99) Calcium Level 8.3 mg/dL (8.5-10.1) Random Vancomycin Level 14.4 mcg/mL Micro BLOOD CULTURE Final GRAM NEGATIVE RODS AND GRAMS POSITIVE COCCI SEEN IN 1 OF 2 BOTTLES; 1 SET WAS DRAWN; RESULTS WERE CALLED TO [facility]OPES ON 2S AT 0843; 09/16/18 BY NEETA. THE BLOOD CULTURES HAVE BEEN SENT TO [facility] FOR FURTHER WORKUP. pleural and pericardial fluid culture neg Objective Assessment Sepsis w/ GNR & GPC bacteremia from 09/15. - clinically looks well Fever better Leukocytosis - marked increase Pleural effusion s/p chest tube 09/12 cx NGTD -Fluid analysis: glucose 77, T protein 4.0, LDH 1568 S/p Cardiac window 09/10 for pericardial effusion -cults neg so far H/o MSSA sepsis - treated - RADHA 07/10 neg. on Zosyn since 09/05 Recent GI bleed with GDA embolization CKD on HD via HDC line Anemia Plan Plan of Care Cont Zosyn, vanc and d/c micafungin Await GNR/GPC ID/susceptibilities CT chest , abd and pelvis, noted Repeat CBC now and in am Probiotics D/w nursing CHAPIN VALERIO MD Sep 18, 2018 08:03
[2018-09-18] MEDS ORDERED: DIALYSIS PATIENT. MC PRN (08:45)
[2018-09-18] MEDS: MORPHINE ER 15 MG TABLET.ER PO SCH ×2 (09:00→20:32)
--- NOTE | 2018-09-18 09:08 | PDOC ---
PULMONARY PROGRESS NOTES Subjective NOT MORE SOA Vitals Vital Signs Date Time Temp Pulse Resp B/P (MAP) Pulse Ox O2 Delivery O2 Flow Rate FiO2 09/18/18 07:00 98.1 88 18 140/77 (98) 92 Room Air 98.1 ROS: No Nausea, No Chest Pain General: Alert, No acute distress HEENT: Other Lungs: Other (l ct , dull left base, ) Cardiovascular: S1, S2 Abdomen: Soft, Non-tender Neuro Exam: Alert Extremities: No Edema Skin: Warm Labs Laboratory Tests Test 09/16/18 10:40 09/17/18 04:05 09/17/18 19:25 09/18/18 05:00 White Blood Count 31.6 x10^3/uL (4.0-11.0) 19.3 x10^3/uL (4.0-11.0) 16.9 x10^3/uL (4.0-11.0) 15.6 x10^3/uL (4.0-11.0) Red Blood Count 3.01 x10^6/uL (4.30-5.70) 2.55 x10^6/uL (4.30-5.70) 2.81 x10^6/uL (4.30-5.70) 2.72 x10^6/uL (4.30-5.70) Hemoglobin 8.0 g/dL (13.0-17.5) 6.9 g/dL (13.0-17.5) 7.6 g/dL (13.0-17.5) 7.2 g/dL (13.0-17.5) Hematocrit 25.9 % (39.0-53.0) 22.0 % (39.0-53.0) 24.2 % (39.0-53.0) 23.4 % (39.0-53.0) Mean Corpuscular Volume 86 fL (79-100) 87 fL (79-100) 86 fL (79-100) 86 fL ( 79-100) Mean Corpuscular Hemoglobin 27 pg (25-35) 27 pg (25-35) 27 pg (25-35) 27 pg ( 25-35) Mean Corpuscular Hemoglobin Concent 31 g/dL (31-37) 32 g/dL (31-37) 31 g/dL (31-37) 31 g/dL (31-37) Red Cell Distribution Width 17.0 % (11.5-14.5) 17.0 % (11.5-14.5) 16.7 % (11.5-14.5) 17.3 % (11.5-14.5) Platelet Count 394 x10^3/uL (140-400) 329 x10^3/uL (140-400) 385 x10^3/uL (140-400) 373 x10^3/uL (140-400) Neutrophils (%) (Auto) 83 % (31-73) 76 % (31-73) Lymphocytes (%) (Auto) 7 % (24-48) 10 % (24-48) Monocytes (%) (Auto) 7 % (0-9) 9 % (0-9) Eosinophils (%) (Auto) 3 % (0-3) 5 % (0-3) Basophils (%) (Auto) 1 % (0-3) 1 % (0-3) Neutrophils # (Auto) 26.1 x10^3uL (1.8-7.7) 14.6 x10^3uL (1.8-7.7) Lymphocytes # (Auto) 2.2 x10^3/uL (1.0-4.8) 1.9 x10^3/uL (1.0-4.8) Monocytes # (Auto) 2.3 x10^3/uL (0.0-1.1) 1.8 x10^3/uL (0.0-1.1) Eosinophils # (Auto) 0.9 x10^3/uL (0.0-0.7) 0.9 x10^3/uL (0.0-0.7) Basophils # (Auto) 0.2 x10^3/uL (0.0-0.2) 0.1 x10^3/uL (0.0-0.2) Sodium Level 139 mmol/L (136-145) Potassium Level 5.0 mmol/L (3.5-5.1) Chloride Level 102 mmol/L (98-107) Carbon Dioxide Level 25 mmol/L (21-32) Anion Gap 12 (6-14) Blood Urea Nitrogen 52 mg/dL (8-26) Creatinine 7.3 mg/dL (0.7-1.3) Estimated GFR (Cockcroft-Gault) 7.9 Glucose Level 85 mg/dL (70-99) Calcium Level 8.3 mg/dL (8.5-10.1) Random Vancomycin Level 14.4 mcg/mL Laboratory Tests Test 09/17/18 19:25 09/18/18 05:00 White Blood Count 16.9 x10^3/uL (4.0-11.0) 15.6 x10^3/uL (4.0-11.0) Red Blood Count 2.81 x10^6/uL (4.30-5.70) 2.72 x10^6/uL (4.30-5.70) Hemoglobin 7.6 g/dL (13.0-17.5) 7.2 g/dL (13.0-17.5) Hematocrit 24.2 % (39.0-53.0) 23.4 % (39.0-53.0) Mean Corpuscular Volume 86 fL (79-100) 86 fL (79-100) Mean Corpuscular Hemoglobin 27 pg (25-35) 27 pg (25-35) Mean Corpuscular Hemoglobin Concent 31 g/dL (31-37) 31 g/dL (31-37) Red Cell Distribution Width 16.7 % (11.5-14.5) 17.3 % (11.5-14.5) Platelet Count 385 x10^3/uL (140-400) 373 x10^3/uL (140-400) Sodium Level 139 mmol/L (136-145) Potassium Level 5.0 mmol/L (3.5-5.1) Chloride Level 102 mmol/L (98-107) Carbon Dioxide Level 25 mmol/L (21-32) Anion Gap 12 (6-14) Blood Urea Nitrogen 52 mg/dL (8-26) Creatinine 7.3 mg/dL (0.7-1.3) Estimated GFR (Cockcroft-Gault) 7.9 Glucose Level 85 mg/dL (70-99) Calcium Level 8.3 mg/dL (8.5-10.1) Random Vancomycin Level 14.4 mcg/mL Medications Active Scripts Medications Dose Route/Sig Max Daily Dose Days Date Category [Pantoprazole] 40 MG Tablet.dr 40 Mg PO BIDAC 30 08/25/18 Rx [Darbepoetin [place] In Polysorbat] 60 MCG/0.3 ML Disp.syrin 60 Mcg SQ WEEKLYHS 7 08/25/18 Rx Poly-Iron (Iron Polysaccharides Complex) 150 Mg Capsule 150 Mg PO BID66 30 08/25/18 Rx Impression . 1. Acute recurrent hypoxic respiratory failure secondary to multifactorial etiologies including recent subacute pericardial effusion with early tamponade physiology, underlying chronic obstructive pulmonary disease, anemia, bilateral pleural effusions more loculated on the left and encephalopathy. 2. Abnormal CT chest with persistent loculated left-sided pleural effusion. s/ p left chest tube., removal 09/15 3. Moderate to large pericardial effusion, status post pericardial window. 4. History of small pulmonary embolism last month, which subsequently resolved. He was not treated as at that time he was having severe anemia and gastrointestinal bleed. No DVT/ No history of inferior vena cava filter. 5. End-stage renal disease, on hemodialysis. 6. Underlying chronic obstructive pulmonary disease. 7. Low-grade fever, which has responded to current antibiotic. 8. H/O Cavitary nodules, likely related to staph infection, overall improved. 9. ? sepsis, b cx, GRAM NEGATIVE RODS AND GRAMS POSITIVE COCCI SEEN IN 1 OF 2 BOTTLES; Plan . WILL CONTINUE THE SAME ANTIBX PER ID UP AT [facility] FOLLOW CARD INPUT CAYDEN MERRILL MD Sep 18, 2018 09:08
[2018-09-18] MEDS: FOLIC/VIT B COMP W-C (RENAL) TABLET. PO SCH (14:14)
[2018-09-18] MEDS: METOPROLOL SUCC 24HR ER 25 MG TAB.ER.24H. PO SCH (14:15)
[2018-09-18] MEDS: ACETAMINOPHEN 325 MG TABLET. PO PRN (14:24)
[2018-09-18 14:30] VITALS: BP 140/66
[2018-09-18] MEDS: LACTOBACILLUS RHAMNOSUS GG 1 CAPSULE. PO SCH ×2 (14:34→20:32)
--- NOTE | 2018-09-18 14:35 | PDOC ---
Renal-Progress Notes Subjective Notes Notes NONE, WANTS TO GO HOME History of Present Illness Hx of present illness STABLE Vitals Vitals Vital Signs Date Time Temp Pulse Resp B/P (MAP) Pulse Ox O2 Delivery O2 Flow Rate FiO2 09/18/18 14:15 88 140/77 09/18/18 09:00 20 92 Room Air 2.0 09/18/18 07:00 98.1 98.1 Weight Weight [ ] I.O. Intake and Output Intake and Output 09/18/18 06:59 Intake Total 1720 ml Output Total 400 ml Balance 1320 ml Intake Oral 1720 ml Output Urine Total 400 ml Labs Labs Laboratory Tests Test 09/17/18 19:25 09/18/18 05:00 White Blood Count 16.9 x10^3/uL (4.0-11.0) 15.6 x10^3/uL (4.0-11.0) Red Blood Count 2.81 x10^6/uL (4.30-5.70) 2.72 x10^6/uL (4.30-5.70) Hemoglobin 7.6 g/dL (13.0-17.5) 7.2 g/dL (13.0-17.5) Hematocrit 24.2 % (39.0-53.0) 23.4 % (39.0-53.0) Mean Corpuscular Volume 86 fL (79-100) 86 fL (79-100) Mean Corpuscular Hemoglobin 27 pg (25-35) 27 pg (25-35) Mean Corpuscular Hemoglobin Concent 31 g/dL (31-37) 31 g/dL (31-37) Red Cell Distribution Width 16.7 % (11.5-14.5) 17.3 % (11.5-14.5) Platelet Count 385 x10^3/uL (140-400) 373 x10^3/uL (140-400) Sodium Level 139 mmol/L (136-145) Potassium Level 5.0 mmol/L (3.5-5.1) Chloride Level 102 mmol/L (98-107) Carbon Dioxide Level 25 mmol/L (21-32) Anion Gap 12 (6-14) Blood Urea Nitrogen 52 mg/dL (8-26) Creatinine 7.3 mg/dL (0.7-1.3) Estimated GFR (Cockcroft-Gault) 7.9 Glucose Level 85 mg/dL (70-99) Calcium Level 8.3 mg/dL (8.5-10.1) Random Vancomycin Level 14.4 mcg/mL Micro Micro Microbiology 09/15/18 Blood Culture - Final, Complete 09/12/18 Anaerobic/Aerobic Culture - Final, Complete 09/12/18 Anaerobic Culture Result 1 (NATHAN) - Final, Complete 09/12/18 Aerobic Culture - Final, Complete 09/12/18 Aerobic Culture Result 1 (NATHAN) - Final, Complete 09/12/18 Gram Stain - Final, Complete 09/12/18 Gram Stain Result 1 (NATHAN) - Final, Complete 09/12/18 Gram Stain Result 2 (NATHAN) - Final, Complete Review of Systems Constitutional: yes: alert, oriented Ears/Nose/Throat: Yes: no symptom reported Eyes: Yes: no symptom reported Pulmonary: Yes dyspnea Cardiovascular: Yes no symptom reported Gastrointestional: Yes: no symptom reported Genitourinary: Yes: no symptom reported Musculoskeletal: Yes: no symptom reported Skin: Yes no symptom reported Psychiatric/Neurological: Yes: no symptom reported Endocrine: Yes: no symptom reported Physical Exam General Appearance: no apparent distress Skin: warm Respiratory: bilateral CTA Heart: S1S2, RRR Abdomen: soft, bowel sounds present Genitourinary: bladder flat Extremities: pulses present Neurology: alert, other (drowsy) Assessment Assessment IMP DIASTOLIC AND SYSTOLIC ACUTE ON CHRONIC CHF CARDIOMYOPATHY ACUTE HYPOXIC RESP FAILURE ANEMIA ? DRUG SEEKING ESRD DUE TO CHRONIC HYDRONEPHROSIS-TTS HTN HX NON COMPLIANCE HX PERICARDIAL EFFUSION-S/P WINDOW BACTEREMIA-SEPSIS S/P CHEST TUBE FOR EFFUSION PLAN ARANESP HD TOMORROW ANTIBIOTICS DIALYSIS LINE OUT DEPENDING OF CX AND ID RECOMMENDATION WILL FOLLOW D/W ID MARIIA VIDAL MD Sep 18, 2018 14:35
[2018-09-18] MEDS ORDERED: VANCOMYCIN 1 GM in IV NORMAL SALINE 250ML 250 ML IV ONE (15:00)
--- NOTE | 2018-09-18 15:05 | NUR ---
Dr. Patrick Valdez notified of temp. of 100.7. blood culture order received.
[2018-09-18] MEDS: VANCOMYCIN PER PHARMACY MC PRN (16:43)
--- NOTE | 2018-09-18 16:43 | NUR ---
Pharmacy Vancomycin Dosing Note S: Consulted to monitor and dose vancomycin started 09/15/18. O: FELICE GROVE is a 53 year old M with bacteremia. Other Antibiotics: ZOSYN 2.25G IV Q8HRS LABS: Last BUN: 52 Last Creatinine: 7.3 Creatinine Clearance: HD TTS Last WBC: 15.6 Last Platelets: Tmax (past 24 hours): 100.7 Microbiology: 09/16 GNR/GPC 1:2 SO FAR I/O: 1720/400 Drug Levels: Last Random level: 14.4 on 09/18/18 at 0500 Last dose given 09/15/18 at 1300 Vancomycin Dosing: Dosing Weight: Actual Target Trough: 15-20 A: Patient received a one time dose of vancomycin 1250 mg on 09/15, likely given after HD. A random today of 14.4 is below goal range. Patient continues on Mon//Mon HD schedule. P: 1. Initiate vancomycin 1000 mg IV x 1 today after HD, then 500 mg after each HD session starting on 09/20/18 2. Follow up levels PRN 3. Pharmacy will continue to monitor, follow and adjust therapy as needed. TORREY COLLINS [facility], 09/18/18 [id number]
[2018-09-18 19:20] VITALS: BP 137/71
--- NOTE | 2018-09-18 19:47 | PDOC ---
PROGRESS NOTES Chief Complaint Chief Complaint acute hypoxic respiratory failure at admit, resolved Moderate ongoing bilateral pulmonary infiltrates and nodules s/p left chest tube for loculated left effusion . He also has a small right pleural thickening and effusion. There is also a small left lower lobe loculated organized effusion. The effusion is exudate , ESRD on HD TTHS Anemia of ESRD Recent massive gI bleed s./p IR coiling - hgb 9.5 weakness small to mod pericardial effusion. Trops normal, pericardial effusion appears to be subacute in nature with fibrinous components. The effusion is mostly posteriorly layered. status post pericardial window on 09/10/2018 Acute on chronic systolic CHF Cardiomyopathy: EF 35% Patient has exhibiited drug seeking behaviour will continue to monitor CRBSI? positive new set of blood cultures from the dialysis catheter. follow all cultures Plan: continue antibiotic therapy awaiting for cultures and sensitivities. ATB as per ID dialysis as scheduled follow cardiology recommendations to optimize medical therapy for his cardiomyopathy History of Present Illness History of Present Illness No new complaints, mild temp increase, chills resolved, hemodynamically stable. Vitals Vitals Vital Signs Date Time Temp Pulse Resp B/P (MAP) Pulse Ox O2 Delivery O2 Flow Rate FiO2 09/18/18 14:30 100.7 109 16 140/66 (90) Room Air 100.7 09/18/18 09:00 92 2.0 Physical Exam Physical Exam GENERAL: Sleeping HEENT: Oral cavity, pharynx is clear. Dentures in place NECK: Supple, no JVD. LUNGS: Decreased in the bases. L CT out HEART: S1, S2. ABDOMEN: Flat. No guarding, no rebound. GENITOURINARY: Suprapubic Holloway is in place EXTREMITIES: No clubbing, cyanosis or gross edema. No signs of any splinter hemorrhages in his toes. He does have a hammertoe in his left foot. SKIN: Warm to touch without signs of rash. NEUROLOGIC: Arouses to name Right-sided chest hemodialysis catheter without signs of complications. General: mild distress Heart: Regular rate, No murmurs (muffled), Other (JVD) Lungs: Other (l ct , dull left base, ) Abdomen: Soft, No tenderness, No hepatosplenomegaly Extremities: No clubbing, No cyanosis Skin: No significant lesion Labs LABS Laboratory Tests Test 09/18/18 05:00 White Blood Count 15.6 x10^3/uL (4.0-11.0) Red Blood Count 2.72 x10^6/uL (4.30-5.70) Hemoglobin 7.2 g/dL (13.0-17.5) Hematocrit 23.4 % (39.0-53.0) Mean Corpuscular Volume 86 fL (79-100) Mean Corpuscular Hemoglobin 27 pg (25-35) Mean Corpuscular Hemoglobin Concent 31 g/dL (31-37) Red Cell Distribution Width 17.3 % (11.5-14.5) Platelet Count 373 x10^3/uL (140-400) Sodium Level 139 mmol/L (136-145) Potassium Level 5.0 mmol/L (3.5-5.1) Chloride Level 102 mmol/L (98-107) Carbon Dioxide Level 25 mmol/L (21-32) Anion Gap 12 (6-14) Blood Urea Nitrogen 52 mg/dL (8-26) Creatinine 7.3 mg/dL (0.7-1.3) Estimated GFR (Cockcroft-Gault) 7.9 Glucose Level 85 mg/dL (70-99) Calcium Level 8.3 mg/dL (8.5-10.1) Random Vancomycin Level 14.4 mcg/mL Assessment and Plan Assessmemt and Plan Problems Medical Problems: (1) Dyspnea Status: Acute Comment Review of Relevant I have reviewed the following items allyson (where applicable) has been applied. Labs Laboratory Tests Test 09/17/18 04:05 09/17/18 19:25 09/18/18 05:00 White Blood Count 19.3 x10^3/uL (4.0-11.0) 16.9 x10^3/uL (4.0-11.0) 15.6 x10^3/uL (4.0-11.0) Red Blood Count 2.55 x10^6/uL (4.30-5.70) 2.81 x10^6/uL (4.30-5.70) 2.72 x10^6/uL (4.30-5.70) Hemoglobin 6.9 g/dL (13.0-17.5) 7.6 g/dL (13.0-17.5) 7.2 g/dL (13.0-17.5) Hematocrit 22.0 % (39.0-53.0) 24.2 % (39.0-53.0) 23.4 % (39.0-53.0) Mean Corpuscular Volume 87 fL (79-100) 86 fL (79-100) 86 fL (79-100) Mean Corpuscular Hemoglobin 27 pg (25-35) 27 pg (25-35) 27 pg (25-35) Mean Corpuscular Hemoglobin Concent 32 g/dL (31-37) 31 g/dL (31-37) 31 g/dL (31-37) Red Cell Distribution Width 17.0 % (11.5-14.5) 16.7 % (11.5-14.5) 17.3 % (11.5-14.5) Platelet Count 329 x10^3/uL (140-400) 385 x10^3/uL (140-400) 373 x10^3/uL (140-400) Neutrophils (%) (Auto) 76 % (31-73) Lymphocytes (%) (Auto) 10 % (24-48) Monocytes (%) (Auto) 9 % (0-9) Eosinophils (%) (Auto) 5 % (0-3) Basophils (%) (Auto) 1 % (0-3) Neutrophils # (Auto) 14.6 x10^3uL (1.8-7.7) Lymphocytes # (Auto) 1.9 x10^3/uL (1.0-4.8) Monocytes # (Auto) 1.8 x10^3/uL (0.0-1.1) Eosinophils # (Auto) 0.9 x10^3/uL (0.0-0.7) Basophils # (Auto) 0.1 x10^3/uL (0.0-0.2) Sodium Level 139 mmol/L (136-145) Potassium Level 5.0 mmol/L (3.5-5.1) Chloride Level 102 mmol/L (98-107) Carbon Dioxide Level 25 mmol/L (21-32) Anion Gap 12 (6-14) Blood Urea Nitrogen 52 mg/dL (8-26) Creatinine 7.3 mg/dL (0.7-1.3) Estimated GFR (Cockcroft-Gault) 7.9 Glucose Level 85 mg/dL (70-99) Calcium Level 8.3 mg/dL (8.5-10.1) Random Vancomycin Level 14.4 mcg/mL Laboratory Tests Test 09/18/18 05:00 White Blood Count 15.6 x10^3/uL (4.0-11.0) Red Blood Count 2.72 x10^6/uL (4.30-5.70) Hemoglobin 7.2 g/dL (13.0-17.5) Hematocrit 23.4 % (39.0-53.0) Mean Corpuscular Volume 86 fL (79-100) Mean Corpuscular Hemoglobin 27 pg (25-35) Mean Corpuscular Hemoglobin Concent 31 g/dL (31-37) Red Cell Distribution Width 17.3 % (11.5-14.5) Platelet Count 373 x10^3/uL (140-400) Sodium Level 139 mmol/L (136-145) Potassium Level 5.0 mmol/L (3.5-5.1) Chloride Level 102 mmol/L (98-107) Carbon Dioxide Level 25 mmol/L (21-32) Anion Gap 12 (6-14) Blood Urea Nitrogen 52 mg/dL (8-26) Creatinine 7.3 mg/dL (0.7-1.3) Estimated GFR (Cockcroft-Gault) 7.9 Glucose Level 85 mg/dL (70-99) Calcium Level 8.3 mg/dL (8.5-10.1) Random Vancomycin Level 14.4 mcg/mL Microbiology 09/15/18 Blood Culture - Preliminary, Resulted 09/15/18 Blood Culture Result 1 (NATHAN) - Preliminary, Resulted 09/15/18 Blood Culture Result 2 (NATHAN) - Preliminary, Resulted 09/12/18 Anaerobic/Aerobic Culture - Final, Complete 09/12/18 Anaerobic Culture Result 1 (NATHAN) - Final, Complete 09/12/18 Aerobic Culture - Final, Complete 09/12/18 Aerobic Culture Result 1 (NATHAN) - Final, Complete 09/12/18 Gram Stain - Final, Complete 09/12/18 Gram Stain Result 1 (NATHAN) - Final, Complete 09/12/18 Gram Stain Result 2 (NATHAN) - Final, Complete Medications Current Medications Iohexol (Omnipaque 350 Mg/ml) 90 ml 1X ONCE IV Last administered on 09/05/18at 17:21; Start 09/05/18 at 17:15; Stop 09/05/18 at 17:16; Status DC Info (CONTRAST GIVEN -- Rx MONITORING) 1 each PRN DAILY PRN MC SEE COMMENTS; Start 09/05/18 at 17:15; Stop 09/07/18 at 17:14; Status DC Polysaccharide Iron Complex (Niferex 150) 150 mg BID66 PO Last administered on 09/18/18at 06:28; Start 09/05/18 at 21:00 Darbepoetin Napoleon (Aranesp) 60 mcg WEEKLYHS SQ ; Start 09/10/18 at 21:00; Status Cancel Pantoprazole Sodium (Protonix) 40 mg BIDAC PO Last administered on 09/05/18at 20 :57; Start 09/05/18 at 21:00; Stop 09/06/18 at 10:25; Status DC Vitamin B Complex/ Vitamin C (Massiel-Darrel) 1 tab DAILY PO Last administered on at 14:14; Start 09/06/18 at 09:00 Calcium Acetate (Phoslo) 667 mg TIDWMEALS PO Last administered on 09/18/18at 14: 14; Start 09/06/18 at 08:00 Piperacillin Sod/ Tazobactam Sod (Zosyn Per Pharmacy) 1 each PRN DAILY PRN MC SEE COMMENTS; Start 09/05/18 at 17:45 Piperacillin Sod/ Tazobactam Sod 2.25 gm/Sodium Chloride 50 ml @ 100 mls/hr 1X ONCE IV Last administered on 09/05/18at 18:17; Start 09/05/18 at 17:45; Stop 09/05/18 at 18:14; Status DC Fentanyl Citrate (Fentanyl 2ml Vial) 50 mcg 1X ONCE IV Last administered on at 18:13; Start 09/05/18 at 18:00; Stop 09/05/18 at 18:01; Status DC Piperacillin Sod/ Tazobactam Sod 2.25 gm/Sodium Chloride 50 ml @ 100 mls/hr Q8HRS IV Last administered on 09/18/18at 14:15; Start 09/06/18 at 00:00 Tramadol HCl (Ultram) 50 mg PRN Q6HRS PRN PO MODERATE PAIN Last administered on 09/13/18at 03:57; Start 09/06/18 at 01:30 Acetaminophen (Tylenol) 650 mg PRN Q6HRS PRN PO MILD PAIN Last administered on 09/18/18at 14:24; Start 09/06/18 at 01:30 Sodium Chloride 1,000 ml @ 1,000 mls/hr Q1H PRN IV hypotension; Start 09/06/18 at 08:09; Stop 09/06/18 at 14:08; Status DC Albumin Human 200 ml @ 200 mls/hr 1X PRN PRN IV Hypotension; Start 09/06/18 at 08:15; Stop 09/06/18 at 14:14; Status DC Acetaminophen (Tylenol) 500 mg 1X PRN PRN PO MILD PAIN / TEMP; Start 09/06/18 at 08:15; Stop 09/07/18 at 08:14; Status DC Diphenhydramine HCl (Benadryl) 25 mg 1X PRN PRN IV ITCHING; Start 09/06/18 at 08:15; Stop 09/07/18 at 08:14; Status DC Diphenhydramine HCl (Benadryl) 25 mg 1X PRN PRN IV ITCHING; Start 09/06/18 at 08:15; Stop 09/07/18 at 08:14; Status DC Sodium Chloride 1,000 ml @ 400 mls/hr Q2H30M PRN IV PATENCY; Start 09/06/18 at 08:09; Stop 09/06/18 at 20:08; Status DC Info (PHARMACY MONITORING -- do not chart) 1 each PRN DAILY PRN MC SEE COMMENTS ; Start 09/06/18 at 08:15; Stop 09/13/18 at 08:15; Status DC Metoprolol Succinate (Toprol Xl) 25 mg DAILY PO Last administered on 09/06/18at 14:00; Start 09/06/18 at 11:00; Stop 09/07/18 at 09:00; Status DC Pantoprazole Sodium (Protonix) 40 mg DAILYAC PO Last administered on 09/18/18at 14:15; Start 09/06/18 at 10:15 Fentanyl Citrate (Fentanyl 2ml Vial) 50 mcg 1X ONCE IV Last administered on at 11:54; Start 09/06/18 at 11:30; Stop 09/06/18 at 11:31; Status DC Darbepoetin Napoleon (Aranesp) 60 mcg WEEKLYHS SQ Last administered on 09/13/18at 20 :46; Start 09/06/18 at 21:00 Lactobacillus Rhamnosus (Culturelle) 1 cap BID PO Last administered on at 14:34; Start 09/06/18 at 21:00 Metoprolol Succinate (Toprol Xl) 50 mg DAILY PO Last administered on 09/10/18at 10:36; Start 09/07/18 at 09:00; Stop 09/11/18 at 08:06; Status DC Ondansetron HCl (Zofran) 4 mg PRN Q6HRS PRN IV NAUSEA/VOMITING; Start 09/10/18 at 07:00; Stop 09/10/18 at 18:00; Status DC Fentanyl Citrate (Fentanyl 2ml Vial) 25 mcg PRN Q5MIN PRN IV MILD PAIN; Start 09/10/18 at 07:00; Stop 09/10/18 at 18:00; Status DC Fentanyl Citrate (Fentanyl 2ml Vial) 50 mcg PRN Q5MIN PRN IV MODERATE TO SEVERE PAIN Last administered on 09/10/18at 14:33; Start 09/10/18 at 07:00; Stop 09/10/18 at 18:00; Status DC Morphine Sulfate (Morphine Sulfate) 1 mg PRN Q10MIN PRN IV SEVERE PAIN; Start 09/10/18 at 07:00; Stop 09/10/18 at 18:00; Status DC Ringer's Solution 1,000 ml @ 30 mls/hr Q24H IV ; Start 09/10/18 at 07:00; Stop 09/10/18 at 18:59; Status DC Lidocaine HCl (Xylocaine-Mpf 1% 2ml Vial) 2 ml PRN 1X PRN ID PRIOR TO IV START ; Start 09/10/18 at 07:00; Stop 09/10/18 at 18:00; Status DC Hydromorphone HCl (Dilaudid) 0.5 mg PRN Q10MIN PRN IV SEV PAIN, Second choice; Start 09/10/18 at 07:00; Stop 09/10/18 at 18:00; Status DC Prochlorperazine Edisylate (Compazine) 5 mg PACU PRN PRN IV NAUSEA, MRX1; Start 09/10/18 at 07:00; Stop 09/10/18 at 18:00; Status DC Sodium Chloride 1,000 ml @ 1,000 mls/hr Q1H PRN IV hypotension; Start 09/08/18 at 07:00; Stop 09/08/18 at 12:59; Status DC Sodium Chloride 1,000 ml @ 400 mls/hr Q2H30M PRN IV PATENCY; Start 09/08/18 at 07:00; Stop 09/08/18 at 18:59; Status DC Info (PHARMACY MONITORING -- do not chart) 1 each PRN DAILY PRN MC SEE COMMENTS ; Start 09/08/18 at 08:30; Status UNV Info (PHARMACY MONITORING -- do not chart) 1 each PRN DAILY PRN MC SEE COMMENTS ; Start 09/08/18 at 08:30; Status UNV Sodium Chloride 1,000 ml @ 1,000 mls/hr Q1H PRN IV hypotension; Start 09/10/18 at 07:00; Stop 09/10/18 at 15:00; Status DC Sodium Chloride 1,000 ml @ 400 mls/hr Q2H30M PRN IV PATENCY; Start 09/10/18 at 07:00; Stop 09/10/18 at 18:59; Status DC Info (PHARMACY MONITORING -- do not chart) 1 each PRN DAILY PRN MC SEE COMMENTS ; Start 09/10/18 at 08:00; Status UNV Info (PHARMACY MONITORING -- do not chart) 1 each PRN DAILY PRN MC SEE COMMENTS ; Start 09/10/18 at 08:00; Status UNV Cefazolin Sodium 1 gm/Sodium Chloride 500 ml @ 500 mls/hr 1X ONCE IRR Last administered on 09/10/18at 13:26; Start 09/10/18 at 12:00; Stop 09/10/18 at 12:59 ; Status DC Midazolam HCl (Versed) 2 mg STK-MED ONCE .ROUTE ; Start 09/10/18 at 12:23; Stop 09/10/18 at 12:24; Status DC Midazolam HCl (Versed) 2 mg 1X ONCE IV ; Start 09/10/18 at 12:45; Stop at 12:46; Status DC Dexamethasone Sodium Phosphate (Decadron) 20 mg STK-MED ONCE .ROUTE ; Start at 12:30; Stop 09/10/18 at 12:31; Status DC Lidocaine HCl (Lidocaine Pf 2% Vial) 5 ml STK-MED ONCE .ROUTE ; Start 09/10/18 at 12:30; Stop 09/10/18 at 12:31; Status DC Etomidate (Amidate) 20 mg STK-MED ONCE IV ; Start 09/10/18 at 12:30; Stop at 12:31; Status DC Famotidine (Pepcid Vial) 20 mg STK-MED ONCE .ROUTE ; Start 09/10/18 at 12:30; Stop 09/10/18 at 12:31; Status DC Ondansetron HCl (Zofran) 4 mg STK-MED ONCE .ROUTE ; Start 09/10/18 at 12:30; Stop 09/10/18 at 12:31; Status DC Phenylephrine HCl (Michael-Synephrine Inj) 10 mg STK-MED ONCE .ROUTE ; Start at 12:30; Stop 09/10/18 at 12:31; Status DC Rocuronium [place] (Zemuron) 50 mg STK-MED ONCE .ROUTE ; Start 09/10/18 at 12:30 ; Stop 09/10/18 at 12:31; Status DC Fentanyl Citrate (Fentanyl 2ml Vial) 100 mcg STK-MED ONCE .ROUTE ; Start at 12:30; Stop 09/10/18 at 12:31; Status DC Midazolam HCl (Versed) 2 mg STK-MED ONCE .ROUTE ; Start 09/10/18 at 12:30; Stop 09/10/18 at 12:31; Status DC Neostigmine Methylsulfate (Bloxiverz) 10 mg STK-MED ONCE .ROUTE ; Start at 13:40; Stop 09/10/18 at 13:41; Status DC Glycopyrrolate (Robinul) 1 mg STK-MED ONCE .ROUTE ; Start 09/10/18 at 13:40; Stop 09/10/18 at 13:41; Status DC Sevoflurane (Ultane) 60 ml STK-MED ONCE IH ; Start 09/10/18 at 13:58; Stop 09/10 at 13:59; Status DC Fentanyl Citrate (Fentanyl 2ml Vial) 100 mcg STK-MED ONCE .ROUTE ; Start at 14:14; Stop 09/10/18 at 14:15; Status DC Lorazepam (Ativan) 2 mg 1X ONCE PO Last administered on 09/10/18at 22:00; Start 09/10/18 at 19:45; Stop 09/10/18 at 19:49; Status DC Lorazepam (Ativan) 1 mg PRN Q6HRS PRN PO ANXIETY / AGITATION Last administered on 09/11/18at 19:44; Start 09/10/18 at 19:45 Quetiapine Fumarate (SEROquel) 25 mg HS PO Last administered on 09/17/18at 20:40 ; Start 09/10/18 at 21:00 Lorazepam (Ativan) 2 mg PRN Q4HRS PRN IV ANXIETY / AGITATION Last administered on 09/11/18at 21:20; Start 09/10/18 at 22:30 Haloperidol Lactate (Haldol Inj) 5 mg 1X ONCE IVP ; Start 09/10/18 at 23:00; Stop 09/10/18 at 23:01; Status DC Sodium Chloride 1,000 ml @ 1,000 mls/hr Q1H PRN IV hypotension; Start 09/11/18 at 07:06; Stop 09/11/18 at 13:05; Status DC Albumin Human 200 ml @ 200 mls/hr 1X PRN PRN IV Hypotension; Start 09/11/18 at 07:15; Stop 09/11/18 at 13:14; Status DC Sodium Chloride 1,000 ml @ 400 mls/hr Q2H30M PRN IV PATENCY; Start 09/11/18 at 07:06; Stop 09/11/18 at 19:05; Status DC Info (PHARMACY MONITORING -- do not chart) 1 each PRN DAILY PRN MC SEE COMMENTS ; Start 09/11/18 at 07:15; Status UNV Info (PHARMACY MONITORING -- do not chart) 1 each PRN DAILY PRN MC SEE COMMENTS ; Start 09/11/18 at 07:15; Status UNV Metoprolol Succinate (Toprol Xl) 25 mg DAILY PO Last administered on 09/18/18at 14:15; Start 09/11/18 at 09:00 Haloperidol Lactate (Haldol Inj) 5 mg PRN Q3HRS PRN IVP AGITATION 2ND CHOICE Last administered on 09/11/18at 22:09; Start 09/11/18 at 22:00 Acetaminophen/ Hydrocodone Bitart (Lortab 5/325) 1 tab 1X ONCE PO Last administered on 09/12/18at 22:03; Start 09/12/18 at 22:00; Stop 09/12/18 at 22:01 ; Status DC Sodium Chloride 1,000 ml @ 1,000 mls/hr Q1H PRN IV hypotension; Start 09/13/18 at 08:06; Stop 09/13/18 at 14:05; Status DC Albumin Human 200 ml @ 200 mls/hr 1X PRN PRN IV Hypotension; Start 09/13/18 at 08:15; Stop 09/13/18 at 14:14; Status DC Acetaminophen (Tylenol) 500 mg 1X PRN PRN PO MILD PAIN / TEMP; Start 09/13/18 at 08:15; Stop 09/14/18 at 08:14; Status DC Diphenhydramine HCl (Benadryl) 25 mg 1X PRN PRN IV ITCHING; Start 09/13/18 at 08:15; Stop 09/14/18 at 08:14; Status DC Diphenhydramine HCl (Benadryl) 25 mg 1X PRN PRN IV ITCHING; Start 09/13/18 at 08:15; Stop 09/14/18 at 08:14; Status DC Sodium Chloride 1,000 ml @ 400 mls/hr Q2H30M PRN IV PATENCY; Start 09/13/18 at 08:06; Stop 09/13/18 at 20:05; Status DC Info (PHARMACY MONITORING -- do not chart) 1 each PRN DAILY PRN MC SEE COMMENTS ; Start 09/13/18 at 08:15; Stop 09/18/18 at 08:59; Status DC Morphine Sulfate (Ms Contin) 10 mg BID PRN PO PAIN; Start 09/14/18 at 11:00; Stop 09/14/18 at 11:09; Status DC Morphine Sulfate (Ms Contin) 15 mg BID PO Last administered on 09/17/18at 20:40 ; Start 09/14/18 at 11:30 Sodium Chloride 1,000 ml @ 1,000 mls/hr Q1H PRN IV hypotension; Start 09/15/18 at 07:14; Stop 09/15/18 at 13:13; Status DC Albumin Human 200 ml @ 200 mls/hr 1X PRN PRN IV Hypotension; Start 09/15/18 at 07:15; Stop 09/15/18 at 13:14; Status DC Sodium Chloride (Normal Saline Flush) 10 ml 1X PRN PRN IV EXPLOSIVE SPECIALIST catheter pack; Start 09/15/18 at 07:15; Stop 09/16/18 at 07:14; Status DC Sodium Chloride 1,000 ml @ 400 mls/hr Q2H30M PRN IV PATENCY; Start 09/15/18 at 07:14; Stop 09/15/18 at 19:13; Status DC Info (PHARMACY MONITORING -- do not chart) 1 each PRN DAILY PRN MC SEE COMMENTS ; Start 09/15/18 at 07:15; Stop 09/15/18 at 07:20; Status DC Info (PHARMACY MONITORING -- do not chart) 1 each PRN DAILY PRN MC SEE COMMENTS ; Start 09/15/18 at 07:15; Stop 09/15/18 at 07:20; Status DC Vancomycin HCl 1.25 gm/Sodium Chloride 250 ml @ 166.667 mls/hr 1X ONCE IV Last administered on 09/15/18at 12:58; Start 09/15/18 at 12:30; Stop 09/15/18 at 13:59; Status DC Vancomycin HCl (Vanco Per Pharmacy) 1 each PRN DAILY PRN MC SEE COMMENTS Last administered on 09/18/18at 16:43; Start 09/15/18 at 12:30 Micafungin Sodium 100 mg/Dextrose 100 ml @ 100 mls/hr Q24H IV Last administered on 09/17/18at 14:47; Start 09/15/18 at 14:00; Stop 09/18/18 at 08:04 ; Status DC Vancomycin HCl (Vancomycin Random Level) 1 each 1X ONCE MC Last administered on 09/18/18at 05:00; Start 09/18/18 at 05:00; Stop 09/18/18 at 05:01; Status DC Iohexol (Omnipaque 240 Mg/ml) 50 ml 1X ONCE PO Last administered on 09/16/18at 12:15; Start 09/16/18 at 12:15; Stop 09/16/18 at 12:16; Status DC Info (CONTRAST GIVEN -- Rx MONITORING) 1 each PRN DAILY PRN MC SEE COMMENTS; Start 09/16/18 at 12:15; Stop 09/18/18 at 12:14; Status DC Sodium Chloride 1,000 ml @ 1,000 mls/hr Q1H PRN IV hypotension; Start 09/18/18 at 07:00; Stop 09/18/18 at 12:59; Status DC Sodium Chloride 1,000 ml @ 400 mls/hr Q2H30M PRN IV PATENCY; Start 09/18/18 at 07:00; Stop 09/18/18 at 18:59; Status DC Info (PHARMACY MONITORING -- do not chart) 1 each PRN DAILY PRN MC SEE COMMENTS ; Start 09/18/18 at 08:45; Status Cancel Vancomycin HCl 1 gm/Sodium Chloride 250 ml @ 250 mls/hr 1X ONCE IV Last administered on 09/18/18at 14:16; Start 09/18/18 at 15:00; Stop 09/18/18 at 15:59 ; Status DC Vancomycin HCl 500 mg/Sodium Chloride 100 ml @ 100 mls/hr QTUTHSA IV ; Start at 16:00 Active Scripts Active [Pantoprazole] 40 MG Tablet.dr 40 Mg PO BIDAC 30 Days [Darbepoetin Napoleon In Polysorbat] 60 MCG/0.3 ML Disp.syrin 60 Mcg SQ WEEKLYHS 7 Days Poly-Iron (Iron Polysaccharides Complex) 150 Mg Capsule 150 Mg PO BID66 30 Days Vitals/I & O Vital Sign - Last 24 Hours 09/17/18 09/17/18 09/17/18 09/18/18 19:50 20:40 23:05 00:45 Temp 98.3 98.3 Pulse 85 Resp 18 18 B/P (MAP) 133/73 (93) Pulse Ox 94 93 O2 Delivery Room Air Room Air Room Air Room Air 09/18/18 09/18/18 09/18/18 09/18/18 03:30 07:00 07:50 09:00 Temp 98.5 98.1 98.5 98.1 Pulse 87 88 Resp 18 18 20 B/P (MAP) 139/81 (100) 140/77 (98) Pulse Ox 92 92 92 O2 Delivery Room Air Room Air Room Air Room Air O2 Flow Rate 2.0 09/18/18 09/18/18 14:15 14:30 Temp 100.7 100.7 Pulse 88 109 Resp 16 B/P (MAP) 140/77 140/66 (90) O2 Delivery Room Air Intake and Output 09/17/18 09/17/18 09/18/18 15:00 23:00 07:00 Intake Total 480 ml 800 ml 440 ml Output Total 400 ml Balance 480 ml 800 ml 40 ml JAIR BARRERA MD Sep 18, 2018 19:47
[2018-09-18] MEDS: QUEtiapine 25 MG TABLET. PO SCH (20:31)
[2018-09-18] MEDS: LORazepam 1 MG TABLET PO PRN (22:08)
[2018-09-18] MEDS: traMADol 50 MG TABLET PO PRN (22:08)
[2018-09-18 22:35] VITALS: BP 128/65
--- NOTE | 2018-09-19 03:27 | NUR ---
CONCERT PROMOTER attempt to do 3am VS. Patient would not let CONCERT PROMOTER assess VS at this time. When CONCERT PROMOTER asked if it was ok to check his VS patient balled up his fist at [employer]CERT PROMOTER. Patient refuses 3am vital signs check.
[2018-09-19] MEDS: IRON POLYSACCHARIDE COMPLEX 150 MG CAPSULE PO SCH ×2 (05:32→18:05)
[2018-09-19] MEDS: PIPERACILLIN/TAZOBACTAM 2.25 GM in IV NORMAL SALINE 50ML 50 ML IV SCH ×3 (05:33→21:57)
[2018-09-19 07:00] VITALS: BP 134/53
--- NOTE | 2018-09-19 07:39 | PDOC ---
Infectious Disease Note Subjective Subjective feeling better, ROS ROS no n/v/d/sob did have fever yesterday Vital Sign Vital Signs Vital Signs Date Time Temp Pulse Resp B/P (MAP) Pulse Ox O2 Delivery O2 Flow Rate FiO2 09/19/18 03:00 82 09/19/18 00:32 18 95 Room Air 09/18/18 22:35 98.1 128/65 (86) 98.1 09/18/18 09:00 2.0 Physical Exam PHYSICAL EXAM GENERAL: Sleeping HEENT: Oral cavity, pharynx is clear. Dentures in place NECK: Supple, no JVD. LUNGS: Decreased in the bases. L CT out HEART: S1, S2. ABDOMEN: Flat. No guarding, no rebound. GENITOURINARY: Suprapubic Holloway is in place EXTREMITIES: No clubbing, cyanosis or gross edema. No signs of any splinter hemorrhages in his toes. He does have a hammertoe in his left foot. SKIN: Warm to touch without signs of rash. NEUROLOGIC: Arouses to name Right-sided chest hemodialysis catheter without signs of complications. Labs Micro BLOOD CULTURE LC Preliminary Preliminary report BLD CULT RESULT 1 Preliminary Comment Pseudomonas aeruginosa BLD CULT RESULT 2 Preliminary Gram negative rods Performed at: DA - [facility] [address], [place], [place] [id number] Community Marketing Coordinator: TRINI Mariscal MD, Phone: [phone] Objective Assessment Sepsis w/ GNR & GPC bacteremia from 09/15. - PSA Fever better Leukocytosis - marked increase Pleural effusion s/p chest tube 09/12 cx NGTD -Fluid analysis: glucose 77, T protein 4.0, LDH 1568 S/p Cardiac window 09/10 for pericardial effusion -cults neg so far H/o MSSA sepsis - treated - RADHA 07/10 neg. on Zosyn since 09/05 Recent GI bleed with GDA embolization CKD on HD via HDC line Anemia Plan Plan of Care Cont Zosyn, vanc Await GNR/GPC ID/susceptibilities CT chest , abd and pelvis, noted Repeat CBC now and in am Probiotics D/w nursing need to replace HD cath, will d/w dr Go for optimal timing one dose of gent CHAPIN VALERIO MD Sep 19, 2018 07:39
[2018-09-19] MEDS ORDERED: GENTAMICIN SULFATE IV STA (08:00)
[2018-09-19] MEDS ORDERED: NORMAL SALINE IV STA (08:00)
[2018-09-19] MEDS: CALCIUM ACETATE 667 MG CAPSULE PO SCH ×3 (08:55→18:05)
[2018-09-19] MEDS: METOPROLOL SUCC 24HR ER 25 MG TAB.ER.24H. PO SCH (08:55)
[2018-09-19] MEDS: LACTOBACILLUS RHAMNOSUS GG 1 CAPSULE. PO SCH ×2 (08:55→20:06)
[2018-09-19] MEDS: FOLIC/VIT B COMP W-C (RENAL) TABLET. PO SCH (08:55)
[2018-09-19] MEDS: PANTOPRAZOLE 40 MG TABLET.DR. PO SCH (08:56)
[2018-09-19] MEDS: MORPHINE ER 15 MG TABLET.ER PO SCH ×2 (09:00→20:06)
--- NOTE | 2018-09-19 09:45 | PDOC ---
PULMONARY PROGRESS NOTES Subjective NOT MORE SOA Vitals Vital Signs Date Time Temp Pulse Resp B/P (MAP) Pulse Ox O2 Delivery O2 Flow Rate FiO2 09/19/18 08:55 79 134/53 09/19/18 08:00 Room Air 2.0 09/19/18 07:00 98.0 18 97 98.0 ROS: No Nausea, No Chest Pain General: Alert, No acute distress HEENT: Other Lungs: Other (l ct , dull left base, ) Cardiovascular: S1, S2 Abdomen: Soft, Non-tender Neuro Exam: Alert Extremities: No Edema Skin: Warm Labs Laboratory Tests Test 09/17/18 19:25 09/18/18 05:00 White Blood Count 16.9 x10^3/uL (4.0-11.0) 15.6 x10^3/uL (4.0-11.0) Red Blood Count 2.81 x10^6/uL (4.30-5.70) 2.72 x10^6/uL (4.30-5.70) Hemoglobin 7.6 g/dL (13.0-17.5) 7.2 g/dL (13.0-17.5) Hematocrit 24.2 % (39.0-53.0) 23.4 % (39.0-53.0) Mean Corpuscular Volume 86 fL (79-100) 86 fL (79-100) Mean Corpuscular Hemoglobin 27 pg (25-35) 27 pg (25-35) Mean Corpuscular Hemoglobin Concent 31 g/dL (31-37) 31 g/dL (31-37) Red Cell Distribution Width 16.7 % (11.5-14.5) 17.3 % (11.5-14.5) Platelet Count 385 x10^3/uL (140-400) 373 x10^3/uL (140-400) Sodium Level 139 mmol/L (136-145) Potassium Level 5.0 mmol/L (3.5-5.1) Chloride Level 102 mmol/L (98-107) Carbon Dioxide Level 25 mmol/L (21-32) Anion Gap 12 (6-14) Blood Urea Nitrogen 52 mg/dL (8-26) Creatinine 7.3 mg/dL (0.7-1.3) Estimated GFR (Cockcroft-Gault) 7.9 Glucose Level 85 mg/dL (70-99) Calcium Level 8.3 mg/dL (8.5-10.1) Random Vancomycin Level 14.4 mcg/mL Medications Active Scripts Medications Dose Route/Sig Max Daily Dose Days Date Category [Pantoprazole] 40 MG Tablet.dr 40 Mg PO BIDAC 30 08/25/18 Rx [Darbepoetin Napoleon In Polysorbat] 60 MCG/0.3 ML Disp.syrin 60 Mcg SQ WEEKLYHS 7 08/25/18 Rx Poly-Iron (Iron Polysaccharides Complex) 150 Mg Capsule 150 Mg PO BID66 30 08/25/18 Rx Impression . 1. Acute recurrent hypoxic respiratory failure secondary to multifactorial etiologies including recent subacute pericardial effusion with early tamponade physiology, underlying chronic obstructive pulmonary disease, anemia, bilateral pleural effusions more loculated on the left and encephalopathy. 2. Abnormal CT chest with persistent loculated left-sided pleural effusion. s/ p left chest tube., removal 09/15 3. Moderate to large pericardial effusion, status post pericardial window. 4. History of small pulmonary embolism last month, which subsequently resolved. He was not treated as at that time he was having severe anemia and gastrointestinal bleed. No DVT/ No history of inferior vena cava filter. 5. End-stage renal disease, on hemodialysis. 6. Underlying chronic obstructive pulmonary disease. 7. Low-grade fever, which has responded to current antibiotic. 8. H/O Cavitary nodules, likely related to staph infection, overall improved. 9. ? sepsis, b cx, GRAM NEGATIVE RODS AND GRAMS POSITIVE COCCI SEEN IN 1 OF 2 BOTTLES; Plan . CATH TO BE REMOVED ANTIBX PER ID UP AT [facility] FOLLOW CARD INPUT CAYDEN MERRILL MD Sep 19, 2018 09:45
[2018-09-19] MEDS: VANCOMYCIN PER PHARMACY MC PRN (10:09)
[2018-09-19 10:41] VITALS: BP 121/70
--- NOTE | 2018-09-19 12:04 | PDOC ---
Renal-Progress Notes Subjective Notes Notes FEELING OK History of Present Illness Hx of present illness STABLE Vitals Vitals Vital Signs Date Time Temp Pulse Resp B/P (MAP) Pulse Ox O2 Delivery O2 Flow Rate FiO2 09/19/18 10:41 97.9 81 18 121/70 (87) 95 Room Air 97.9 09/19/18 08:00 2.0 Weight Weight [ ] I.O. Intake and Output Intake and Output 09/19/18 07:00 Intake Total 1300 ml Output Total 450 ml Balance 850 ml Intake Oral 1200 ml IV Total 100 ml Output Urine Total 450 ml Micro Micro Microbiology 09/15/18 Blood Culture - Preliminary, Resulted 09/15/18 Blood Culture Result 1 (NATHAN) - Preliminary, Resulted 09/15/18 Blood Culture Result 2 (NATHAN) - Preliminary, Resulted 09/12/18 Anaerobic/Aerobic Culture - Final, Complete 09/12/18 Anaerobic Culture Result 1 (NATHAN) - Final, Complete 09/12/18 Aerobic Culture - Final, Complete 09/12/18 Aerobic Culture Result 1 (NATHAN) - Final, Complete 09/12/18 Gram Stain - Final, Complete 09/12/18 Gram Stain Result 1 (NATHAN) - Final, Complete 09/12/18 Gram Stain Result 2 (NATHAN) - Final, Complete Review of Systems Constitutional: yes: alert, oriented Ears/Nose/Throat: Yes: no symptom reported Eyes: Yes: no symptom reported Pulmonary: Yes dyspnea Cardiovascular: Yes no symptom reported Gastrointestional: Yes: no symptom reported Genitourinary: Yes: no symptom reported Musculoskeletal: Yes: no symptom reported Skin: Yes no symptom reported Psychiatric/Neurological: Yes: no symptom reported Endocrine: Yes: no symptom reported Physical Exam General Appearance: no apparent distress Skin: warm Respiratory: bilateral CTA Heart: S1S2, RRR Abdomen: soft, bowel sounds present Genitourinary: bladder flat Extremities: pulses present Neurology: alert, other (drowsy) Assessment Assessment IMP ESRD-TTS DIASTOLIC AND SYSTOLIC ACUTE ON CHRONIC CHF CARDIOMYOPATHY ACUTE HYPOXIC RESP FAILURE ANEMIA ? DRUG SEEKING ESRD DUE TO CHRONIC HYDRONEPHROSIS-TTS HTN HX NON COMPLIANCE HX PERICARDIAL EFFUSION-S/P WINDOW BACTEREMIA-SEPSIS S/P CHEST TUBE FOR EFFUSION PLAN [facility]TIBIOTICS DIALYSIS LINE OUT TODAY WILL PLAN FOR NEW LINE MONDAY WILL FOLLOW D/W MARIIA FAIR MD Sep 19, 2018 12:04
[2018-09-19] MEDS ORDERED: LIDOCAINE 1%/EPI 1:100,000 20 ML VIAL. ONE (13:11)
[2018-09-19] MEDS ORDERED: LIDOCAINE 1%/EPI 1:100,000 20 ML VIAL. INJ ONE (14:30)
[2018-09-19 14:56] VITALS: BP 132/69
--- NOTE | 2018-09-19 14:58 | NUR ---
SS following up with discharge planning. Pt is scheduled for new HD line on 09/21/2018. Pt's discharge disposition continues to be home with mother. No discharge needs noted at this time. SS will continue to follow for pending discharge needs.
--- NOTE | 2018-09-19 17:14 | PDOC ---
PROGRESS NOTES Chief Complaint Chief Complaint Gram-positive cocci and gram-negative rods bacteremia most likely secondary to catheter-related bloodstream infection ESRD on HD TTHS Anemia of ESRD Recent massive gI bleed s./p IR coiling - hgb 9.5 weakness small to mod pericardial effusion. Trops normal, pericardial effusion appears to be subacute in nature with fibrinous components. The effusion is mostly posteriorly layered. status post pericardial window on 09/10/2018 Acute on chronic systolic CHF Cardiomyopathy: EF 35% Patient has exhibiited drug seeking behaviour will continue to monitor CRBSI positive new set of blood cultures from the dialysis catheter. follow all cultures acute hypoxic respiratory failure at admit, resolved history of bilateral pulmonary infiltrates and nodules s/p left chest tube for loculated left effusion . He also has a small right pleural thickening and effusion. There is also a small left lower lobe loculated organized effusion. effusion was an exudate he had a chest tube in place now discontinued Plan: continue antibiotic therapy awaiting for cultures and sensitivities. will need to discontinue HD catheter ID to coordinate with Nephrology ATB as per ID dialysis as scheduled follow cardiology recommendations to optimize medical therapy for his cardiomyopathy History of Present Illness History of Present Illness No new complaints, mild temp increase, chills resolved, hemodynamically stable. Vitals Vitals Vital Signs Date Time Temp Pulse Resp B/P (MAP) Pulse Ox O2 Delivery O2 Flow Rate FiO2 09/19/18 14:56 98.5 85 18 132/69 (90) 95 Room Air 98.5 09/19/18 08:00 2.0 Physical Exam Physical Exam GENERAL: Sleeping HEENT: Oral cavity, pharynx is clear. Dentures in place NECK: Supple, no JVD. LUNGS: Decreased in the bases. L CT out HEART: S1, S2. ABDOMEN: Flat. No guarding, no rebound. GENITOURINARY: Suprapubic Holloway is in place EXTREMITIES: No clubbing, cyanosis or gross edema. No signs of any splinter hemorrhages in his toes. He does have a hammertoe in his left foot. SKIN: Warm to touch without signs of rash. NEUROLOGIC: Arouses to name Right-sided chest hemodialysis catheter without signs of complications. General: mild distress Heart: Regular rate, No murmurs (muffled), Other (JVD) Lungs: Other (l ct , dull left base, ) Abdomen: Soft, No tenderness, No hepatosplenomegaly Extremities: No clubbing, No cyanosis Skin: No significant lesion Review of Systems Review of Systems Pertinent as per history of present illness otherwise 10 point review of system is negative Assessment and Plan Assessmemt and Plan Problems Medical Problems: (1) Dyspnea Status: Acute Comment Review of Relevant I have reviewed the following items allyson (where applicable) has been applied. Labs Laboratory Tests Test 09/17/18 19:25 09/18/18 05:00 White Blood Count 16.9 x10^3/uL (4.0-11.0) 15.6 x10^3/uL (4.0-11.0) Red Blood Count 2.81 x10^6/uL (4.30-5.70) 2.72 x10^6/uL (4.30-5.70) Hemoglobin 7.6 g/dL (13.0-17.5) 7.2 g/dL (13.0-17.5) Hematocrit 24.2 % (39.0-53.0) 23.4 % (39.0-53.0) Mean Corpuscular Volume 86 fL (79-100) 86 fL (79-100) Mean Corpuscular Hemoglobin 27 pg (25-35) 27 pg (25-35) Mean Corpuscular Hemoglobin Concent 31 g/dL (31-37) 31 g/dL (31-37) Red Cell Distribution Width 16.7 % (11.5-14.5) 17.3 % (11.5-14.5) Platelet Count 385 x10^3/uL (140-400) 373 x10^3/uL (140-400) Sodium Level 139 mmol/L (136-145) Potassium Level 5.0 mmol/L (3.5-5.1) Chloride Level 102 mmol/L (98-107) Carbon Dioxide Level 25 mmol/L (21-32) Anion Gap 12 (6-14) Blood Urea Nitrogen 52 mg/dL (8-26) Creatinine 7.3 mg/dL (0.7-1.3) Estimated GFR (Cockcroft-Gault) 7.9 Glucose Level 85 mg/dL (70-99) Calcium Level 8.3 mg/dL (8.5-10.1) Random Vancomycin Level 14.4 mcg/mL Microbiology 09/15/18 Blood Culture - Final, Complete 09/15/18 Blood Culture Result 1 (NATHAN) - Final, Complete 09/15/18 Blood Culture Result 2 (NATHAN) - Final, Complete 09/15/18 Antimicrobic Susceptibility - Final, Complete 09/12/18 Anaerobic/Aerobic Culture - Final, Complete 09/12/18 Anaerobic Culture Result 1 (NATHAN) - Final, Complete 09/12/18 Aerobic Culture - Final, Complete 09/12/18 Aerobic Culture Result 1 (NATHAN) - Final, Complete 09/12/18 Gram Stain - Final, Complete 09/12/18 Gram Stain Result 1 (NATHAN) - Final, Complete 09/12/18 Gram Stain Result 2 (NATHAN) - Final, Complete Medications Current Medications Iohexol (Omnipaque 350 Mg/ml) 90 ml 1X ONCE IV Last administered on 09/05/18at 17:21; Start 09/05/18 at 17:15; Stop 09/05/18 at 17:16; Status DC Info (CONTRAST GIVEN -- Rx MONITORING) 1 each PRN DAILY PRN MC SEE COMMENTS; Start 09/05/18 at 17:15; Stop 09/07/18 at 17:14; Status DC Polysaccharide Iron Complex (Niferex 150) 150 mg BID66 PO Last administered on 09/19/18at 05:32; Start 09/05/18 at 21:00 Darbepoetin Napoleon (Aranesp) 60 mcg WEEKLYHS SQ ; Start 09/10/18 at 21:00; Status Cancel Pantoprazole Sodium (Protonix) 40 mg BIDAC PO Last administered on 09/05/18at 20 :57; Start 09/05/18 at 21:00; Stop 09/06/18 at 10:25; Status DC Vitamin B Complex/ Vitamin C (Massiel-Darrel) 1 tab DAILY PO Last administered on at 08:55; Start 09/06/18 at 09:00 Calcium Acetate (Phoslo) 667 mg TIDWMEALS PO Last administered on 09/19/18at 08: 55; Start 09/06/18 at 08:00 Piperacillin Sod/ Tazobactam Sod (Zosyn Per Pharmacy) 1 each PRN DAILY PRN MC SEE COMMENTS; Start 09/05/18 at 17:45 Piperacillin Sod/ Tazobactam Sod 2.25 gm/Sodium Chloride 50 ml @ 100 mls/hr 1X ONCE IV Last administered on 09/05/18at 18:17; Start 09/05/18 at 17:45; Stop 09/05/18 at 18:14; Status DC Fentanyl Citrate (Fentanyl 2ml Vial) 50 mcg 1X ONCE IV Last administered on at 18:13; Start 09/05/18 at 18:00; Stop 09/05/18 at 18:01; Status DC Piperacillin Sod/ Tazobactam Sod 2.25 gm/Sodium Chloride 50 ml @ 100 mls/hr Q8HRS IV Last administered on 09/19/18at 14:00; Start 09/06/18 at 00:00 Tramadol HCl (Ultram) 50 mg PRN Q6HRS PRN PO MODERATE PAIN Last administered on 09/18/18at 22:08; Start 09/06/18 at 01:30 Acetaminophen (Tylenol) 650 mg PRN Q6HRS PRN PO MILD PAIN Last administered on 09/18/18at 14:24; Start 09/06/18 at 01:30 Sodium Chloride 1,000 ml @ 1,000 mls/hr Q1H PRN IV hypotension; Start 09/06/18 at 08:09; Stop 09/06/18 at 14:08; Status DC Albumin Human 200 ml @ 200 mls/hr 1X PRN PRN IV Hypotension; Start 09/06/18 at 08:15; Stop 09/06/18 at 14:14; Status DC Acetaminophen (Tylenol) 500 mg 1X PRN PRN PO MILD PAIN / TEMP; Start 09/06/18 at 08:15; Stop 09/07/18 at 08:14; Status DC Diphenhydramine HCl (Benadryl) 25 mg 1X PRN PRN IV ITCHING; Start 09/06/18 at 08:15; Stop 09/07/18 at 08:14; Status DC Diphenhydramine HCl (Benadryl) 25 mg 1X PRN PRN IV ITCHING; Start 09/06/18 at 08:15; Stop 09/07/18 at 08:14; Status DC Sodium Chloride 1,000 ml @ 400 mls/hr Q2H30M PRN IV PATENCY; Start 09/06/18 at 08:09; Stop 09/06/18 at 20:08; Status DC Info (PHARMACY MONITORING -- do not chart) 1 each PRN DAILY PRN MC SEE COMMENTS ; Start 09/06/18 at 08:15; Stop 09/13/18 at 08:15; Status DC Metoprolol Succinate (Toprol Xl) 25 mg DAILY PO Last administered on 09/06/18at 14:00; Start 09/06/18 at 11:00; Stop 09/07/18 at 09:00; Status DC Pantoprazole Sodium (Protonix) 40 mg DAILYAC PO Last administered on 09/19/18at 08:56; Start 09/06/18 at 10:15 Fentanyl Citrate (Fentanyl 2ml Vial) 50 mcg 1X ONCE IV Last administered on at 11:54; Start 09/06/18 at 11:30; Stop 09/06/18 at 11:31; Status DC Darbepoetin Napoleon (Aranesp) 60 mcg WEEKLYHS SQ Last administered on 09/13/18at 20 :46; Start 09/06/18 at 21:00 Lactobacillus Rhamnosus (Culturelle) 1 cap BID PO Last administered on at 08:55; Start 09/06/18 at 21:00 Metoprolol Succinate (Toprol Xl) 50 mg DAILY PO Last administered on 09/10/18at 10:36; Start 09/07/18 at 09:00; Stop 09/11/18 at 08:06; Status DC Ondansetron HCl (Zofran) 4 mg PRN Q6HRS PRN IV NAUSEA/VOMITING; Start 09/10/18 at 07:00; Stop 09/10/18 at 18:00; Status DC Fentanyl Citrate (Fentanyl 2ml Vial) 25 mcg PRN Q5MIN PRN IV MILD PAIN; Start 09/10/18 at 07:00; Stop 09/10/18 at 18:00; Status DC Fentanyl Citrate (Fentanyl 2ml Vial) 50 mcg PRN Q5MIN PRN IV MODERATE TO SEVERE PAIN Last administered on 09/10/18at 14:33; Start 09/10/18 at 07:00; Stop 09/10/18 at 18:00; Status DC Morphine Sulfate (Morphine Sulfate) 1 mg PRN Q10MIN PRN IV SEVERE PAIN; Start 09/10/18 at 07:00; Stop 09/10/18 at 18:00; Status DC Ringer's Solution 1,000 ml @ 30 mls/hr Q24H IV ; Start 09/10/18 at 07:00; Stop 09/10/18 at 18:59; Status DC Lidocaine HCl (Xylocaine-Mpf 1% 2ml Vial) 2 ml PRN 1X PRN ID PRIOR TO IV START ; Start 09/10/18 at 07:00; Stop 09/10/18 at 18:00; Status DC Hydromorphone HCl (Dilaudid) 0.5 mg PRN Q10MIN PRN IV SEV PAIN, Second choice; Start 09/10/18 at 07:00; Stop 09/10/18 at 18:00; Status DC Prochlorperazine Edisylate (Compazine) 5 mg PACU PRN PRN IV NAUSEA, MRX1; Start 09/10/18 at 07:00; Stop 09/10/18 at 18:00; Status DC Sodium Chloride 1,000 ml @ 1,000 mls/hr Q1H PRN IV hypotension; Start 09/08/18 at 07:00; Stop 09/08/18 at 12:59; Status DC Sodium Chloride 1,000 ml @ 400 mls/hr Q2H30M PRN IV PATENCY; Start 09/08/18 at 07:00; Stop 09/08/18 at 18:59; Status DC Info (PHARMACY MONITORING -- do not chart) 1 each PRN DAILY PRN MC SEE COMMENTS ; Start 09/08/18 at 08:30; Status UNV Info (PHARMACY MONITORING -- do not chart) 1 each PRN DAILY PRN MC SEE COMMENTS ; Start 09/08/18 at 08:30; Status UNV Sodium Chloride 1,000 ml @ 1,000 mls/hr Q1H PRN IV hypotension; Start 09/10/18 at 07:00; Stop 09/10/18 at 15:00; Status DC Sodium Chloride 1,000 ml @ 400 mls/hr Q2H30M PRN IV PATENCY; Start 09/10/18 at 07:00; Stop 09/10/18 at 18:59; Status DC Info (PHARMACY MONITORING -- do not chart) 1 each PRN DAILY PRN MC SEE COMMENTS ; Start 09/10/18 at 08:00; Status UNV Info (PHARMACY MONITORING -- do not chart) 1 each PRN DAILY PRN MC SEE COMMENTS ; Start 09/10/18 at 08:00; Status UNV Cefazolin Sodium 1 gm/Sodium Chloride 500 ml @ 500 mls/hr 1X ONCE IRR Last administered on 09/10/18at 13:26; Start 09/10/18 at 12:00; Stop 09/10/18 at 12:59 ; Status DC Midazolam HCl (Versed) 2 mg STK-MED ONCE .ROUTE ; Start 09/10/18 at 12:23; Stop 09/10/18 at 12:24; Status DC Midazolam HCl (Versed) 2 mg 1X ONCE IV ; Start 09/10/18 at 12:45; Stop at 12:46; Status DC Dexamethasone Sodium Phosphate (Decadron) 20 mg STK-MED ONCE .ROUTE ; Start at 12:30; Stop 09/10/18 at 12:31; Status DC Lidocaine HCl (Lidocaine Pf 2% Vial) 5 ml STK-MED ONCE .ROUTE ; Start 09/10/18 at 12:30; Stop 09/10/18 at 12:31; Status DC Etomidate (Amidate) 20 mg STK-MED ONCE IV ; Start 09/10/18 at 12:30; Stop at 12:31; Status DC Famotidine (Pepcid Vial) 20 mg STK-MED ONCE .ROUTE ; Start 09/10/18 at 12:30; Stop 09/10/18 at 12:31; Status DC Ondansetron HCl (Zofran) 4 mg STK-MED ONCE .ROUTE ; Start 09/10/18 at 12:30; Stop 09/10/18 at 12:31; Status DC Phenylephrine HCl (Michael-Synephrine Inj) 10 mg STK-MED ONCE .ROUTE ; Start at 12:30; Stop 09/10/18 at 12:31; Status DC Rocuronium Rodessa (Zemuron) 50 mg STK-MED ONCE .ROUTE ; Start 09/10/18 at 12:30 ; Stop 09/10/18 at 12:31; Status DC Fentanyl Citrate (Fentanyl 2ml Vial) 100 mcg STK-MED ONCE .ROUTE ; Start at 12:30; Stop 09/10/18 at 12:31; Status DC Midazolam HCl (Versed) 2 mg STK-MED ONCE .ROUTE ; Start 09/10/18 at 12:30; Stop 09/10/18 at 12:31; Status DC Neostigmine Methylsulfate (Bloxiverz) 10 mg STK-MED ONCE .ROUTE ; Start at 13:40; Stop 09/10/18 at 13:41; Status DC Glycopyrrolate (Robinul) 1 mg STK-MED ONCE .ROUTE ; Start 09/10/18 at 13:40; Stop 09/10/18 at 13:41; Status DC Sevoflurane (Ultane) 60 ml STK-MED ONCE IH ; Start 09/10/18 at 13:58; Stop 09/10 at 13:59; Status DC Fentanyl Citrate (Fentanyl 2ml Vial) 100 mcg STK-MED ONCE .ROUTE ; Start at 14:14; Stop 09/10/18 at 14:15; Status DC Lorazepam (Ativan) 2 mg 1X ONCE PO Last administered on 09/10/18at 22:00; Start 09/10/18 at 19:45; Stop 09/10/18 at 19:49; Status DC Lorazepam (Ativan) 1 mg PRN Q6HRS PRN PO ANXIETY / AGITATION Last administered on 09/18/18at 22:08; Start 09/10/18 at 19:45 Quetiapine Fumarate (SEROquel) 25 mg HS PO Last administered on 09/18/18at 20:31 ; Start 09/10/18 at 21:00 Lorazepam (Ativan) 2 mg PRN Q4HRS PRN IV ANXIETY / AGITATION Last administered on 09/11/18at 21:20; Start 09/10/18 at 22:30 Haloperidol Lactate (Haldol Inj) 5 mg 1X ONCE IVP ; Start 09/10/18 at 23:00; Stop 09/10/18 at 23:01; Status DC Sodium Chloride 1,000 ml @ 1,000 mls/hr Q1H PRN IV hypotension; Start 09/11/18 at 07:06; Stop 09/11/18 at 13:05; Status DC Albumin Human 200 ml @ 200 mls/hr 1X PRN PRN IV Hypotension; Start 09/11/18 at 07:15; Stop 09/11/18 at 13:14; Status DC Sodium Chloride 1,000 ml @ 400 mls/hr Q2H30M PRN IV PATENCY; Start 09/11/18 at 07:06; Stop 09/11/18 at 19:05; Status DC Info (PHARMACY MONITORING -- do not chart) 1 each PRN DAILY PRN MC SEE COMMENTS ; Start 09/11/18 at 07:15; Status UNV Info (PHARMACY MONITORING -- do not chart) 1 each PRN DAILY PRN MC SEE COMMENTS ; Start 09/11/18 at 07:15; Status UNV Metoprolol Succinate (Toprol Xl) 25 mg DAILY PO Last administered on 09/19/18at 08:55; Start 09/11/18 at 09:00 Haloperidol Lactate (Haldol Inj) 5 mg PRN Q3HRS PRN IVP AGITATION 2ND CHOICE Last administered on 09/11/18at 22:09; Start 09/11/18 at 22:00 Acetaminophen/ Hydrocodone Bitart (Lortab 5/325) 1 tab 1X ONCE PO Last administered on 09/12/18at 22:03; Start 09/12/18 at 22:00; Stop 09/12/18 at 22:01 ; Status DC Sodium Chloride 1,000 ml @ 1,000 mls/hr Q1H PRN IV hypotension; Start 09/13/18 at 08:06; Stop 09/13/18 at 14:05; Status DC Albumin Human 200 ml @ 200 mls/hr 1X PRN PRN IV Hypotension; Start 09/13/18 at 08:15; Stop 09/13/18 at 14:14; Status DC Acetaminophen (Tylenol) 500 mg 1X PRN PRN PO MILD PAIN / TEMP; Start 09/13/18 at 08:15; Stop 09/14/18 at 08:14; Status DC Diphenhydramine HCl (Benadryl) 25 mg 1X PRN PRN IV ITCHING; Start 09/13/18 at 08:15; Stop 09/14/18 at 08:14; Status DC Diphenhydramine HCl (Benadryl) 25 mg 1X PRN PRN IV ITCHING; Start 09/13/18 at 08:15; Stop 09/14/18 at 08:14; Status DC Sodium Chloride 1,000 ml @ 400 mls/hr Q2H30M PRN IV PATENCY; Start 09/13/18 at 08:06; Stop 09/13/18 at 20:05; Status DC Info (PHARMACY MONITORING -- do not chart) 1 each PRN DAILY PRN MC SEE COMMENTS ; Start 09/13/18 at 08:15; Stop 09/18/18 at 08:59; Status DC Morphine Sulfate (Ms Contin) 10 mg BID PRN PO PAIN; Start 09/14/18 at 11:00; Stop 09/14/18 at 11:09; Status DC Morphine Sulfate (Ms Contin) 15 mg BID PO Last administered on 09/18/18at 20:32 ; Start 09/14/18 at 11:30 Sodium Chloride 1,000 ml @ 1,000 mls/hr Q1H PRN IV hypotension; Start 09/15/18 at 07:14; Stop 09/15/18 at 13:13; Status DC Albumin Human 200 ml @ 200 mls/hr 1X PRN PRN IV Hypotension; Start 09/15/18 at 07:15; Stop 09/15/18 at 13:14; Status DC Sodium Chloride (Normal Saline Flush) 10 ml 1X PRN PRN IV 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; Start 09/15/18 at 07:15; Stop 09/16/18 at 07:14; Status DC Sodium Chloride 1,000 ml @ 400 mls/hr Q2H30M PRN IV PATENCY; Start 09/15/18 at 07:14; Stop 09/15/18 at 19:13; Status DC Info (PHARMACY MONITORING -- do not chart) 1 each PRN DAILY PRN MC SEE COMMENTS ; Start 09/15/18 at 07:15; Stop 09/15/18 at 07:20; Status DC Info (PHARMACY MONITORING -- do not chart) 1 each PRN DAILY PRN MC SEE COMMENTS ; Start 09/15/18 at 07:15; Stop 09/15/18 at 07:20; Status DC Vancomycin HCl 1.25 gm/Sodium Chloride 250 ml @ 166.667 mls/hr 1X ONCE IV Last administered on 09/15/18at 12:58; Start 09/15/18 at 12:30; Stop 09/15/18 at 13:59; Status DC Vancomycin HCl (Vanco Per Pharmacy) 1 each PRN DAILY PRN MC SEE COMMENTS Last administered on 09/19/18at 10:09; Start 09/15/18 at 12:30 Micafungin Sodium 100 mg/Dextrose 100 ml @ 100 mls/hr Q24H IV Last administered on 09/17/18at 14:47; Start 09/15/18 at 14:00; Stop 09/18/18 at 08:04 ; Status DC Vancomycin HCl (Vancomycin Random Level) 1 each 1X ONCE MC Last administered on 09/18/18at 05:00; Start 09/18/18 at 05:00; Stop 09/18/18 at 05:01; Status DC Iohexol (Omnipaque 240 Mg/ml) 50 ml 1X ONCE PO Last administered on 09/16/18at 12:15; Start 09/16/18 at 12:15; Stop 09/16/18 at 12:16; Status DC Info (CONTRAST GIVEN -- Rx MONITORING) 1 each PRN DAILY PRN MC SEE COMMENTS; Start 09/16/18 at 12:15; Stop 09/18/18 at 12:14; Status DC Sodium Chloride 1,000 ml @ 1,000 mls/hr Q1H PRN IV hypotension; Start 09/18/18 at 07:00; Stop 09/18/18 at 12:59; Status DC Sodium Chloride 1,000 ml @ 400 mls/hr Q2H30M PRN IV PATENCY; Start 09/18/18 at 07:00; Stop 09/18/18 at 18:59; Status DC Info (PHARMACY MONITORING -- do not chart) 1 each PRN DAILY PRN MC SEE COMMENTS ; Start 09/18/18 at 08:45; Status Cancel Vancomycin HCl 1 gm/Sodium Chloride 250 ml @ 250 mls/hr 1X ONCE IV Last administered on 09/18/18at 14:16; Start 09/18/18 at 15:00; Stop 09/18/18 at 15:59 ; Status DC Vancomycin HCl 500 mg/Sodium Chloride 100 ml @ 100 mls/hr QTUTHSA IV ; Start at 16:00 Gentamicin Sulfate 300 mg/ Sodium Chloride 107.5 ml @ 107.5 mls/ hr 1X STAT IV Last administered on 09/19/18at 09:07; Start 09/19/18 at 08:00; Stop at 08:59; Status DC Lidocaine/ Epinephrine (LIDOCAINE 1%-EPI 1:100,000 Multi-Dose) 20 ml STK-MED ONCE .ROUTE ; Start 09/19/18 at 13:11; Stop 09/19/18 at 13:12; Status DC Lidocaine/ Epinephrine (LIDOCAINE 1%-EPI 1:100,000 Multi-Dose) 7 ml 1X ONCE INJ Last administered on 09/19/18at 14:31; Start 09/19/18 at 14:30; Stop at 14:31; Status DC Active Scripts Active [Pantoprazole] 40 MG Tablet.dr 40 Mg PO BIDAC 30 Days [Darbepoetin Napoleon In Polysorbat] 60 MCG/0.3 ML Disp.syrin 60 Mcg SQ WEEKLYHS 7 Days Poly-Iron (Iron Polysaccharides Complex) 150 Mg Capsule 150 Mg PO BID66 30 Days Vitals/I & O Vital Sign - Last 24 Hours 09/18/18 09/18/18 09/18/18 09/18/18 19:20 20:00 20:32 22:08 Temp 98.5 98.5 Pulse 84 Resp 20 18 18 B/P (MAP) 137/71 (93) Pulse Ox 95 95 95 O2 Delivery Room Air Room Air Room Air Room Air 09/18/18 09/18/18 09/19/18 09/19/18 22:35 23:08 00:32 03:00 Temp 98.1 98.1 Pulse 86 82 Resp 18 18 18 B/P (MAP) 128/65 (86) Pulse Ox 93 95 95 O2 Delivery Room Air Room Air Room Air 09/19/18 09/19/18 09/19/18 09/19/18 07:00 08:00 08:55 10:41 Temp 98.0 97.9 98.0 97.9 Pulse 79 79 81 Resp 18 18 B/P (MAP) 134/53 (80) 134/53 121/70 (87) Pulse Ox 97 95 O2 Delivery Room Air Room Air Room Air O2 Flow Rate 2.0 09/19/18 14:56 Temp 98.5 98.5 Pulse 85 Resp 18 B/P (MAP) 132/69 (90) Pulse Ox 95 O2 Delivery Room Air Intake and Output 09/18/18 09/18/18 09/19/18 15:00 23:00 07:00 Intake Total 100 ml 500 ml 700 ml Output Total 250 ml 200 ml Balance 100 ml 250 ml 500 ml JAIR BARRERA MD Sep 19, 2018 17:14
[2018-09-19] MEDS: QUEtiapine 25 MG TABLET. PO SCH (20:07)
[2018-09-19 20:14] VITALS: BP 144/76
[2018-09-19] MEDS: LORazepam 1 MG TABLET PO PRN (21:56)
[2018-09-19] MEDS: traMADol 50 MG TABLET PO PRN (21:57)
[2018-09-19 22:37] VITALS: BP 128/70
[2018-09-20 03:01] VITALS: BP 121/67
[2018-09-20 05:07] LABS: CALCIUM 8.1 mg/dL (8.5-10.1); CREATININE 7.4 mg/dL (0.7-1.3); GFR 7.7; POTASSIUM 4.6 mmol/L (3.5-5.1)
[2018-09-20] MEDS: PIPERACILLIN/TAZOBACTAM 2.25 GM in IV NORMAL SALINE 50ML 50 ML IV SCH ×3 (05:09→21:17)
[2018-09-20] MEDS: IRON POLYSACCHARIDE COMPLEX 150 MG CAPSULE PO SCH ×2 (06:01→17:24)
[2018-09-20 07:00] VITALS: BP 145/71
[2018-09-20] MEDS: CALCIUM ACETATE 667 MG CAPSULE PO SCH ×3 (07:37→17:23)
--- NOTE | 2018-09-20 08:02 | PDOC ---
Infectious Disease Note Subjective Subjective feeling better, HD cath is out ROS ROS no n/v/d/sob Vital Sign Vital Signs Vital Signs Date Time Temp Pulse Resp B/P (MAP) Pulse Ox O2 Delivery O2 Flow Rate FiO2 09/20/18 07:00 97.7 94 16 145/71 (95) 90 Room Air 97.7 09/19/18 08:00 2.0 Physical Exam PHYSICAL EXAM GENERAL: Sleeping HEENT: Oral cavity, pharynx is clear. Dentures in place NECK: Supple, no JVD. LUNGS: Decreased in the bases. L CT out HEART: S1, S2. ABDOMEN: Flat. No guarding, no rebound. GENITOURINARY: Suprapubic [place] is in place EXTREMITIES: No clubbing, cyanosis or gross edema. No signs of any splinter hemorrhages in his toes. He does have a hammertoe in his left foot. SKIN: Warm to touch without signs of rash. NEUROLOGIC: Arouses to name Right-sided chest hemodialysis catheter without signs of complications. Labs Lab Laboratory Tests Test 09/20/18 04:20 Sodium Level 141 mmol/L (136-145) Potassium Level 4.6 mmol/L (3.5-5.1) Chloride Level 101 mmol/L (98-107) Carbon Dioxide Level 27 mmol/L (21-32) Anion Gap 13 (6-14) Blood Urea Nitrogen 48 mg/dL (8-26) Creatinine 7.4 mg/dL (0.7-1.3) Estimated GFR (Cockcroft-Gault) 7.7 Glucose Level 97 mg/dL (70-99) Calcium Level 8.1 mg/dL (8.5-10.1) Micro BLOOD CULTURE LC Final Final report BLD CULT RESULT 1 Final Comment Pseudomonas aeruginosa BLD CULT RESULT 2 Final Serratia marcescens ANTIMICROBIAL SUSCEPTIBILITY Final Comment S = Susceptible; I = Intermediate; R = Resistant P = Positive; N = Negative MICS are expressed in micrograms per mL Antibiotic RSLT#1 RSLT#2 RSLT#3 RSLT#4 Amikacin S<=2 Amoxicillin/Clavulanic Acid R>=32 Cefazolin R>=64 Cefepime S =2 S<=0.12 Ceftazidime S =4 Ceftriaxone S<=0.25 Cefuroxime R>=64 Ciprofloxacin S<=0.25 S<=0.25 Ertapenem S<=0.12 Gentamicin S<=1 S<=1 Imipenem S =2 Levofloxacin S =1 S<=0.12 Meropenem S<=0.25 S<=0.25 Nitrofurantoin R =256 Piperacillin S<=4 Tetracycline S =4 CONTINUED ON NEXT PAGE RUN DATE: 09/19/18 Objective Assessment Sepsis w/ GNR & GPC bacteremia from 09/15. - PSA Fever better Leukocytosis - marked increase Pleural effusion s/p chest tube 09/12 cx NGTD -Fluid analysis: glucose 77, T protein 4.0, LDH 1568 S/p Cardiac window 09/10 for pericardial effusion -cults neg so far H/o MSSA sepsis - treated - RADHA 07/10 neg. on Zosyn since 09/05 Recent GI bleed with GDA embolization CKD on HD via HDC line Anemia Plan Plan of Care Cont Zosyn, gent x 1 CT chest , abd and pelvis, noted Repeat CBC now and in am Probiotics D/w nursing ok to place HD tomorrow and then d/c after HD will be on po cipro and iv gent for 2 wks CHAPIN VALERIO MD Sep 20, 2018 08:02
[2018-09-20] MEDS: FOLIC/VIT B COMP W-C (RENAL) TABLET. PO SCH (08:32)
[2018-09-20] MEDS: MORPHINE ER 15 MG TABLET.ER PO SCH ×2 (08:32→21:15)
[2018-09-20] MEDS: METOPROLOL SUCC 24HR ER 25 MG TAB.ER.24H. PO SCH (08:32)
[2018-09-20] MEDS: LACTOBACILLUS RHAMNOSUS GG 1 CAPSULE. PO SCH ×2 (08:32→21:15)
--- NOTE | 2018-09-20 08:51 | PDOC ---
PULMONARY PROGRESS NOTES Subjective NOT MORE SOA Vitals Vital Signs Date Time Temp Pulse Resp B/P (MAP) Pulse Ox O2 Delivery O2 Flow Rate FiO2 09/20/18 08:32 90 Room Air 2.0 09/20/18 08:32 94 145/71 09/20/18 07:00 97.7 16 97.7 ROS: No Nausea, No Chest Pain General: Alert, No acute distress HEENT: Other Lungs: Other (l ct , dull left base, ) Cardiovascular: S1, S2 Abdomen: Soft, Non-tender Neuro Exam: Alert Extremities: No Edema Skin: Warm Labs Laboratory Tests Test 09/20/18 04:20 Sodium Level 141 mmol/L (136-145) Potassium Level 4.6 mmol/L (3.5-5.1) Chloride Level 101 mmol/L (98-107) Carbon Dioxide Level 27 mmol/L (21-32) Anion Gap 13 (6-14) Blood Urea Nitrogen 48 mg/dL (8-26) Creatinine 7.4 mg/dL (0.7-1.3) Estimated GFR (Cockcroft-Gault) 7.7 Glucose Level 97 mg/dL (70-99) Calcium Level 8.1 mg/dL (8.5-10.1) Laboratory Tests Test 09/20/18 04:20 Sodium Level 141 mmol/L (136-145) Potassium Level 4.6 mmol/L (3.5-5.1) Chloride Level 101 mmol/L (98-107) Carbon Dioxide Level 27 mmol/L (21-32) Anion Gap 13 (6-14) Blood Urea Nitrogen 48 mg/dL (8-26) Creatinine 7.4 mg/dL (0.7-1.3) Estimated GFR (Cockcroft-Gault) 7.7 Glucose Level 97 mg/dL (70-99) Calcium Level 8.1 mg/dL (8.5-10.1) Medications Active Scripts Medications Dose Route/Sig Max Daily Dose Days Date Category [Pantoprazole] 40 MG Tablet.dr 40 Mg PO BIDAC 30 08/25/18 Rx [Darbepoetin [place] In Polysorbat] 60 MCG/0.3 ML Disp.syrin 60 Mcg SQ WEEKLYHS 7 08/25/18 Rx Poly-Iron (Iron Polysaccharides Complex) 150 Mg Capsule 150 Mg PO BID66 30 08/25/18 Rx Impression . 1. Acute recurrent hypoxic respiratory failure secondary to multifactorial etiologies including recent subacute pericardial effusion with early tamponade physiology, underlying chronic obstructive pulmonary disease, anemia, bilateral pleural effusions more loculated on the left and encephalopathy. 2. Abnormal CT chest with persistent loculated left-sided pleural effusion. s/ p left chest tube., removal 09/15 3. Moderate to large pericardial effusion, status post pericardial window. 4. History of small pulmonary embolism last month, which subsequently resolved. He was not treated as at that time he was having severe anemia and gastrointestinal bleed. No DVT/ No history of inferior vena cava filter. 5. End-stage renal disease, on hemodialysis. 6. Underlying chronic obstructive pulmonary disease. 7. Low-grade fever, which has responded to current antibiotic. 8. H/O Cavitary nodules, likely related to staph infection, overall improved. 9. ? sepsis, b cx, GRAM NEGATIVE RODS AND GRAMS POSITIVE COCCI SEEN IN 1 OF 2 BOTTLES; Plan . CATH TO BE REMOVED ANTIBX PER ID UP AT [facility] FOLLOW CARD INPUT CAYDEN MERRILL MD Sep 20, 2018 08:51
[2018-09-20 11:00] VITALS: BP 132/72
--- NOTE | 2018-09-20 11:07 | PDOC ---
Renal-Progress Notes Subjective Notes Notes FEELING BETTER History of Present Illness Hx of present illness STABLE Vitals Vitals Vital Signs Date Time Temp Pulse Resp B/P (MAP) Pulse Ox O2 Delivery O2 Flow Rate FiO2 09/20/18 08:32 90 Room Air 2.0 09/20/18 08:32 94 145/71 09/20/18 07:00 97.7 16 97.7 Weight Weight [ ] I.O. Intake and Output Intake and Output 09/20/18 06:59 Intake Total 1760 ml Output Total 375 ml Balance 1385 ml Intake Oral 1660 ml IV Total 100 ml Output Urine Total 375 ml Labs Labs Laboratory Tests Test 09/20/18 04:20 Sodium Level 141 mmol/L (136-145) Potassium Level 4.6 mmol/L (3.5-5.1) Chloride Level 101 mmol/L (98-107) Carbon Dioxide Level 27 mmol/L (21-32) Anion Gap 13 (6-14) Blood Urea Nitrogen 48 mg/dL (8-26) Creatinine 7.4 mg/dL (0.7-1.3) Estimated GFR (Cockcroft-Gault) 7.7 Glucose Level 97 mg/dL (70-99) Calcium Level 8.1 mg/dL (8.5-10.1) Micro Micro Microbiology 09/18/18 Blood Culture - Final, Complete 09/12/18 Anaerobic/Aerobic Culture - Final, Complete 09/12/18 Anaerobic Culture Result 1 (NATHAN) - Final, Complete 09/12/18 Aerobic Culture - Final, Complete 09/12/18 Aerobic Culture Result 1 (NATHAN) - Final, Complete 09/12/18 Gram Stain - Final, Complete 09/12/18 Gram Stain Result 1 (NATHAN) - Final, Complete 09/12/18 Gram Stain Result 2 (NATHAN) - Final, Complete Review of Systems Constitutional: yes: alert, oriented Ears/Nose/Throat: Yes: no symptom reported Eyes: Yes: no symptom reported Pulmonary: Yes dyspnea Cardiovascular: Yes no symptom reported Gastrointestional: Yes: no symptom reported Genitourinary: Yes: no symptom reported Musculoskeletal: Yes: no symptom reported Skin: Yes no symptom reported Psychiatric/Neurological: Yes: no symptom reported Endocrine: Yes: no symptom reported Physical Exam General Appearance: no apparent distress Skin: warm Respiratory: bilateral CTA Heart: S1S2, RRR Abdomen: soft, bowel sounds present Genitourinary: bladder flat Extremities: pulses present Neurology: alert, other (drowsy) Assessment Assessment IMP ESRD-TTS DIASTOLIC AND SYSTOLIC ACUTE ON CHRONIC CHF CARDIOMYOPATHY ACUTE HYPOXIC RESP FAILURE ANEMIA ? DRUG SEEKING ESRD DUE TO CHRONIC HYDRONEPHROSIS-TTS HTN HX NON COMPLIANCE HX PERICARDIAL EFFUSION-S/P WINDOW BACTEREMIA-SEPSIS S/P CHEST TUBE FOR EFFUSION PLAN ARANESP ANTIBIOTICS NEW DIALYSIS LINE TOMORROW HD TOMORROW AND THEN D/C WILL FOLLOW D/W ID MARIIA VIDAL MD Sep 20, 2018 11:07
--- NOTE | 2018-09-20 11:11 | RAD ---
Removal of right internal jugular tunnel dialysis catheter 09/19/2018 Indication: Catheter infection Discussion: The risks and benefits of this procedure were discussed the patient. Informed consent was obtained. Timeout procedure was performed. The right neck and chest were prepped and draped using sterile barrier technique. 1% lidocaine was administered for local anesthesia. The pre-existing catheter was evaluated fluoroscopically and found to be normal in position. After minimal blunt dissection, the catheter was removed. Complete removal was confirmed under fluoroscopy. Manual pressure was held. Sterile dressings were applied. Total fluoroscopy time:: 0.3 MIN Dose area product:: 0.3 MIN Impression: Removal of right internal jugular tunneled dialysis catheter
--- NOTE | 2018-09-20 11:56 | PDOC ---
NOEMI BARR FIELD LOGISTICS COORDINATOR 09/20/18 1156: CARDIO Progress Notes Date and Time Date of Service 09/20/18 Time of Evaluation 1110 Subjective Subjective: No Chest Pain, No shortness of breath Vitals Vitals Vital Signs Date Time Temp Pulse Resp B/P (MAP) Pulse Ox O2 Delivery O2 Flow Rate FiO2 09/20/18 11:00 98.0 84 18 132/72 (92) 94 Room Air 98.0 09/20/18 08:32 2.0 Weight Weight [ ] Input and Output Intake and Output Intake and Output 09/20/18 07:00 Intake Total 1760 ml Output Total 375 ml Balance 1385 ml Intake Oral 1660 ml IV Total 100 ml Output Urine Total 375 ml Laboratory Labs Laboratory Tests Test 09/20/18 04:20 Sodium Level 141 mmol/L (136-145) Potassium Level 4.6 mmol/L (3.5-5.1) Chloride Level 101 mmol/L (98-107) Carbon Dioxide Level 27 mmol/L (21-32) Anion Gap 13 (6-14) Blood Urea Nitrogen 48 mg/dL (8-26) Creatinine 7.4 mg/dL (0.7-1.3) Estimated GFR (Cockcroft-Gault) 7.7 Glucose Level 97 mg/dL (70-99) Calcium Level 8.1 mg/dL (8.5-10.1) Microbiology Micro Microbiology 09/18/18 Blood Culture - Final, Complete 09/12/18 Anaerobic/Aerobic Culture - Final, Complete 09/12/18 Anaerobic Culture Result 1 (NATHAN) - Final, Complete 09/12/18 Aerobic Culture - Final, Complete 09/12/18 Aerobic Culture Result 1 (NATHAN) - Final, Complete 09/12/18 Gram Stain - Final, Complete 09/12/18 Gram Stain Result 1 (NATHAN) - Final, Complete 09/12/18 Gram Stain Result 2 (NATHAN) - Final, Complete Review of Systems Constitutional: yes: alert, oriented Ears/Nose/Throat: Yes: no symptom reported Eyes: Yes: no symptom reported Pulmonary: Yes dyspnea Cardiovascular: Yes no symptom reported Gastrointestional: Yes: no symptom reported Genitourinary: Yes: no symptom reported Musculoskeletal: Yes: no symptom reported Skin: Yes no symptom reported Psychiatric/Neurological: Yes: no symptom reported Endocrine: Yes: no symptom reported Physical Exam HEENT: Neck Supple W Full Motion Chest: Symmetric LUNGS: Other (diminished bases) Heart: S1S2, RRR (SR) Abdomen: Soft N/T Extremities: No Edema, No Calf Tenderness Neurology: alert, oriented, follow commands Assessment Assessment 1. Moderate left pleural effusion, loculated. s/p thoracentesis with CT placement. Removed 09/15 2. Acute on chronic diastolic/systolic CHF. compensated 3. Pericardial effusion. S/P pericardial window 4. Sepsis; Gram-positive cocci and gram-negative rods bacteremia 5. ESRD on HD; catheter removed with bacteremia. To be re-placed tomorrow 6. Cardiomyopathy: LVEF 35% 7. COPD 8. Anemia, recent GI bleed: Hgb stable Recommendations Recheck labs in am Continue BB. Add ACEi Antibiotics as per ID Fluid offloading/management via HD as per nephrology MARIANN TIRADO MD 09/20/18 2248: CARDIO Progress Notes Plan Plan Pt. seen and examined. 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 No new cardiac issues. Supportive care. will f/u in the office in 2-3 months with repeat echo and determine need for any further ischemic testing. NOEMI BARR APRN Sep 20, 2018 11:56 MARIANN TIRADO MD Sep 20, 2018 22:48
--- NOTE | 2018-09-20 13:17 | PDOC ---
PROGRESS NOTES Chief Complaint Chief Complaint Gram-positive cocci and gram-negative rods bacteremia most likely secondary to catheter-related bloodstream infection ESRD on HD TTHS Anemia of ESRD Recent massive gI bleed s./p IR coiling - hgb 9.5 weakness small to mod pericardial effusion. Trops normal, pericardial effusion appears to be subacute in nature with fibrinous components. The effusion is mostly posteriorly layered. status post pericardial window on 09/10/2018 Acute on chronic systolic CHF Cardiomyopathy: EF 35% Patient has exhibiited drug seeking behaviour will continue to monitor CRBSI positive new set of blood cultures from the dialysis catheter. follow all cultures acute hypoxic respiratory failure at admit, resolved history of bilateral pulmonary infiltrates and nodules s/p left chest tube for loculated left effusion . He also had a small right pleural thickening and effusion. There was also a small left lower lobe loculated organized effusion. effusion was an exudate he had a chest tube in place now discontinued Plan: Antibiotics as per infectious disease product management consultant. We'll likely discharge on ciprofloxacin and gentamicin Hemodialysis catheter insertion in the morning hopefully discharge afterwards patient is scheduled for dialysis Monday's given the prolonged hospital stay probably would be better to keep the patient until he gets dialyzed to prevent the possibility of readmission ID to coordinate with Nephrology antibiotic therapy dialysis as scheduled follow cardiology recommendations to optimize medical therapy for his cardiomyopathy History of Present Illness History of Present Illness No complaints during my visit. Patient hoping to be dismissed soon in good spirits despite the prolonged hospital stay Vitals Vitals Vital Signs Date Time Temp Pulse Resp B/P (MAP) Pulse Ox O2 Delivery O2 Flow Rate FiO2 09/20/18 11:00 98.0 84 18 132/72 (92) 94 Room Air 98.0 09/20/18 08:32 2.0 Physical Exam Physical Exam GENERAL: Sleeping HEENT: Oral cavity, pharynx is clear. Dentures in place NECK: Supple, no JVD. LUNGS: Decreased in the bases. L CT out HEART: S1, S2. ABDOMEN: Flat. No guarding, no rebound. GENITOURINARY: Suprapubic Holloway is in place EXTREMITIES: No clubbing, cyanosis or gross edema. No signs of any splinter hemorrhages in his toes. He does have a hammertoe in his left foot. SKIN: Warm to touch without signs of rash. NEUROLOGIC: Arouses to name Right-sided chest hemodialysis catheter without signs of complications. General: mild distress Heart: Regular rate, No murmurs (muffled), Other (JVD) Lungs: Other (l ct , dull left base, ) Abdomen: Soft, No tenderness, No hepatosplenomegaly Extremities: No clubbing, No cyanosis Skin: No significant lesion Labs LABS Laboratory Tests Test 09/20/18 04:20 Sodium Level 141 mmol/L (136-145) Potassium Level 4.6 mmol/L (3.5-5.1) Chloride Level 101 mmol/L (98-107) Carbon Dioxide Level 27 mmol/L (21-32) Anion Gap 13 (6-14) Blood Urea Nitrogen 48 mg/dL (8-26) Creatinine 7.4 mg/dL (0.7-1.3) Estimated GFR (Cockcroft-Gault) 7.7 Glucose Level 97 mg/dL (70-99) Calcium Level 8.1 mg/dL (8.5-10.1) Assessment and Plan Assessmemt and Plan Problems Medical Problems: (1) Dyspnea Status: Acute Comment Review of Relevant I have reviewed the following items allyson (where applicable) has been applied. Labs Laboratory Tests Test 09/20/18 04:20 Sodium Level 141 mmol/L (136-145) Potassium Level 4.6 mmol/L (3.5-5.1) Chloride Level 101 mmol/L (98-107) Carbon Dioxide Level 27 mmol/L (21-32) Anion Gap 13 (6-14) Blood Urea Nitrogen 48 mg/dL (8-26) Creatinine 7.4 mg/dL (0.7-1.3) Estimated GFR (Cockcroft-Gault) 7.7 Glucose Level 97 mg/dL (70-99) Calcium Level 8.1 mg/dL (8.5-10.1) Laboratory Tests Test 09/20/18 04:20 Sodium Level 141 mmol/L (136-145) Potassium Level 4.6 mmol/L (3.5-5.1) Chloride Level 101 mmol/L (98-107) Carbon Dioxide Level 27 mmol/L (21-32) Anion Gap 13 (6-14) Blood Urea Nitrogen 48 mg/dL (8-26) Creatinine 7.4 mg/dL (0.7-1.3) Estimated GFR (Cockcroft-Gault) 7.7 Glucose Level 97 mg/dL (70-99) Calcium Level 8.1 mg/dL (8.5-10.1) Microbiology 09/18/18 Blood Culture - Final, Complete 09/12/18 Anaerobic/Aerobic Culture - Final, Complete 09/12/18 Anaerobic Culture Result 1 (NATHAN) - Final, Complete 09/12/18 Aerobic Culture - Final, Complete 09/12/18 Aerobic Culture Result 1 (NATHAN) - Final, Complete 09/12/18 Gram Stain - Final, Complete 09/12/18 Gram Stain Result 1 (NATHAN) - Final, Complete 09/12/18 Gram Stain Result 2 (NATHAN) - Final, Complete Medications Current Medications Iohexol (Omnipaque 350 Mg/ml) 90 ml 1X ONCE IV Last administered on 09/05/18at 17:21; Start 09/05/18 at 17:15; Stop 09/05/18 at 17:16; Status DC Info (CONTRAST GIVEN -- Rx MONITORING) 1 each PRN DAILY PRN MC SEE COMMENTS; Start 09/05/18 at 17:15; Stop 09/07/18 at 17:14; Status DC Polysaccharide Iron Complex (Niferex 150) 150 mg BID66 PO Last administered on 09/20/18at 06:01; Start 09/05/18 at 21:00 Darbepoetin Napoleon (Aranesp) 60 mcg WEEKLYHS SQ ; Start 09/10/18 at 21:00; Status Cancel Pantoprazole Sodium (Protonix) 40 mg BIDAC PO Last administered on 09/05/18at 20 :57; Start 09/05/18 at 21:00; Stop 09/06/18 at 10:25; Status DC Vitamin B Complex/ Vitamin C (Massiel-Darrel) 1 tab DAILY PO Last administered on at 08:32; Start 09/06/18 at 09:00 Calcium Acetate (Phoslo) 667 mg TIDWMEALS PO Last administered on 09/20/18at 11: 54; Start 09/06/18 at 08:00 Piperacillin Sod/ Tazobactam Sod (Zosyn Per Pharmacy) 1 each PRN DAILY PRN MC SEE COMMENTS; Start 09/05/18 at 17:45 Piperacillin Sod/ Tazobactam Sod 2.25 gm/Sodium Chloride 50 ml @ 100 mls/hr 1X ONCE IV Last administered on 09/05/18at 18:17; Start 09/05/18 at 17:45; Stop 09/05/18 at 18:14; Status DC Fentanyl Citrate (Fentanyl 2ml Vial) 50 mcg 1X ONCE IV Last administered on at 18:13; Start 09/05/18 at 18:00; Stop 09/05/18 at 18:01; Status DC Piperacillin Sod/ Tazobactam Sod 2.25 gm/Sodium Chloride 50 ml @ 100 mls/hr Q8HRS IV Last administered on 09/20/18at 05:09; Start 09/06/18 at 00:00 Tramadol HCl (Ultram) 50 mg PRN Q6HRS PRN PO MODERATE PAIN Last administered on 09/19/18at 21:57; Start 09/06/18 at 01:30 Acetaminophen (Tylenol) 650 mg PRN Q6HRS PRN PO MILD PAIN Last administered on 09/18/18at 14:24; Start 09/06/18 at 01:30 Sodium Chloride 1,000 ml @ 1,000 mls/hr Q1H PRN IV hypotension; Start 09/06/18 at 08:09; Stop 09/06/18 at 14:08; Status DC Albumin Human 200 ml @ 200 mls/hr 1X PRN PRN IV Hypotension; Start 09/06/18 at 08:15; Stop 09/06/18 at 14:14; Status DC Acetaminophen (Tylenol) 500 mg 1X PRN PRN PO MILD PAIN / TEMP; Start 09/06/18 at 08:15; Stop 09/07/18 at 08:14; Status DC Diphenhydramine HCl (Benadryl) 25 mg 1X PRN PRN IV ITCHING; Start 09/06/18 at 08:15; Stop 09/07/18 at 08:14; Status DC Diphenhydramine HCl (Benadryl) 25 mg 1X PRN PRN IV ITCHING; Start 09/06/18 at 08:15; Stop 09/07/18 at 08:14; Status DC Sodium Chloride 1,000 ml @ 400 mls/hr Q2H30M PRN IV PATENCY; Start 09/06/18 at 08:09; Stop 09/06/18 at 20:08; Status DC Info (PHARMACY MONITORING -- do not chart) 1 each PRN DAILY PRN MC SEE COMMENTS ; Start 09/06/18 at 08:15; Stop 09/13/18 at 08:15; Status DC Metoprolol Succinate (Toprol Xl) 25 mg DAILY PO Last administered on 09/06/18at 14:00; Start 09/06/18 at 11:00; Stop 09/07/18 at 09:00; Status DC Pantoprazole Sodium (Protonix) 40 mg DAILYAC PO Last administered on 09/19/18at 08:56; Start 09/06/18 at 10:15 Fentanyl Citrate (Fentanyl 2ml Vial) 50 mcg 1X ONCE IV Last administered on at 11:54; Start 09/06/18 at 11:30; Stop 09/06/18 at 11:31; Status DC Darbepoetin Napoleon (Aranesp) 60 mcg WEEKLYHS SQ Last administered on 09/13/18at 20 :46; Start 09/06/18 at 21:00 Lactobacillus Rhamnosus (Culturelle) 1 cap BID PO Last administered on at 08:32; Start 09/06/18 at 21:00 Metoprolol Succinate (Toprol Xl) 50 mg DAILY PO Last administered on 09/10/18at 10:36; Start 09/07/18 at 09:00; Stop 09/11/18 at 08:06; Status DC Ondansetron HCl (Zofran) 4 mg PRN Q6HRS PRN IV NAUSEA/VOMITING; Start 09/10/18 at 07:00; Stop 09/10/18 at 18:00; Status DC Fentanyl Citrate (Fentanyl 2ml Vial) 25 mcg PRN Q5MIN PRN IV MILD PAIN; Start 09/10/18 at 07:00; Stop 09/10/18 at 18:00; Status DC Fentanyl Citrate (Fentanyl 2ml Vial) 50 mcg PRN Q5MIN PRN IV MODERATE TO SEVERE PAIN Last administered on 09/10/18at 14:33; Start 09/10/18 at 07:00; Stop 09/10/18 at 18:00; Status DC Morphine Sulfate (Morphine Sulfate) 1 mg PRN Q10MIN PRN IV SEVERE PAIN; Start 09/10/18 at 07:00; Stop 09/10/18 at 18:00; Status DC Ringer's Solution 1,000 ml @ 30 mls/hr Q24H IV ; Start 09/10/18 at 07:00; Stop 09/10/18 at 18:59; Status DC Lidocaine HCl (Xylocaine-Mpf 1% 2ml Vial) 2 ml PRN 1X PRN ID PRIOR TO IV START ; Start 09/10/18 at 07:00; Stop 09/10/18 at 18:00; Status DC Hydromorphone HCl (Dilaudid) 0.5 mg PRN Q10MIN PRN IV SEV PAIN, Second choice; Start 09/10/18 at 07:00; Stop 09/10/18 at 18:00; Status DC Prochlorperazine Edisylate (Compazine) 5 mg PACU PRN PRN IV NAUSEA, MRX1; Start 09/10/18 at 07:00; Stop 09/10/18 at 18:00; Status DC Sodium Chloride 1,000 ml @ 1,000 mls/hr Q1H PRN IV hypotension; Start 09/08/18 at 07:00; Stop 09/08/18 at 12:59; Status DC Sodium Chloride 1,000 ml @ 400 mls/hr Q2H30M PRN IV PATENCY; Start 09/08/18 at 07:00; Stop 09/08/18 at 18:59; Status DC Info (PHARMACY MONITORING -- do not chart) 1 each PRN DAILY PRN MC SEE COMMENTS ; Start 09/08/18 at 08:30; Status UNV Info (PHARMACY MONITORING -- do not chart) 1 each PRN DAILY PRN MC SEE COMMENTS ; Start 09/08/18 at 08:30; Status UNV Sodium Chloride 1,000 ml @ 1,000 mls/hr Q1H PRN IV hypotension; Start 09/10/18 at 07:00; Stop 09/10/18 at 15:00; Status DC Sodium Chloride 1,000 ml @ 400 mls/hr Q2H30M PRN IV PATENCY; Start 09/10/18 at 07:00; Stop 09/10/18 at 18:59; Status DC Info (PHARMACY MONITORING -- do not chart) 1 each PRN DAILY PRN MC SEE COMMENTS ; Start 09/10/18 at 08:00; Status UNV Info (PHARMACY MONITORING -- do not chart) 1 each PRN DAILY PRN MC SEE COMMENTS ; Start 09/10/18 at 08:00; Status UNV Cefazolin Sodium 1 gm/Sodium Chloride 500 ml @ 500 mls/hr 1X ONCE IRR Last administered on 09/10/18at 13:26; Start 09/10/18 at 12:00; Stop 09/10/18 at 12:59 ; Status DC Midazolam HCl (Versed) 2 mg STK-MED ONCE .ROUTE ; Start 09/10/18 at 12:23; Stop 09/10/18 at 12:24; Status DC Midazolam HCl (Versed) 2 mg 1X ONCE IV ; Start 09/10/18 at 12:45; Stop at 12:46; Status DC Dexamethasone Sodium Phosphate (Decadron) 20 mg STK-MED ONCE .ROUTE ; Start at 12:30; Stop 09/10/18 at 12:31; Status DC Lidocaine HCl (Lidocaine Pf 2% Vial) 5 ml STK-MED ONCE .ROUTE ; Start 09/10/18 at 12:30; Stop 09/10/18 at 12:31; Status DC Etomidate (Amidate) 20 mg STK-MED ONCE IV ; Start 09/10/18 at 12:30; Stop at 12:31; Status DC Famotidine (Pepcid Vial) 20 mg STK-MED ONCE .ROUTE ; Start 09/10/18 at 12:30; Stop 09/10/18 at 12:31; Status DC Ondansetron HCl (Zofran) 4 mg STK-MED ONCE .ROUTE ; Start 09/10/18 at 12:30; Stop 09/10/18 at 12:31; Status DC Phenylephrine HCl (Michael-Synephrine Inj) 10 mg STK-MED ONCE .ROUTE ; Start at 12:30; Stop 09/10/18 at 12:31; Status DC Rocuronium Tensed (Zemuron) 50 mg STK-MED ONCE .ROUTE ; Start 09/10/18 at 12:30 ; Stop 09/10/18 at 12:31; Status DC Fentanyl Citrate (Fentanyl 2ml Vial) 100 mcg STK-MED ONCE .ROUTE ; Start at 12:30; Stop 09/10/18 at 12:31; Status DC Midazolam HCl (Versed) 2 mg STK-MED ONCE .ROUTE ; Start 09/10/18 at 12:30; Stop 09/10/18 at 12:31; Status DC Neostigmine Methylsulfate (Bloxiverz) 10 mg STK-MED ONCE .ROUTE ; Start at 13:40; Stop 09/10/18 at 13:41; Status DC Glycopyrrolate (Robinul) 1 mg STK-MED ONCE .ROUTE ; Start 09/10/18 at 13:40; Stop 09/10/18 at 13:41; Status DC Sevoflurane (Ultane) 60 ml STK-MED ONCE IH ; Start 09/10/18 at 13:58; Stop 09/10 at 13:59; Status DC Fentanyl Citrate (Fentanyl 2ml Vial) 100 mcg STK-MED ONCE .ROUTE ; Start at 14:14; Stop 09/10/18 at 14:15; Status DC Lorazepam (Ativan) 2 mg 1X ONCE PO Last administered on 09/10/18at 22:00; Start 09/10/18 at 19:45; Stop 09/10/18 at 19:49; Status DC Lorazepam (Ativan) 1 mg PRN Q6HRS PRN PO ANXIETY / AGITATION Last administered on 09/19/18at 21:56; Start 09/10/18 at 19:45 Quetiapine Fumarate (SEROquel) 25 mg HS PO Last administered on 09/19/18at 20:07 ; Start 09/10/18 at 21:00 Lorazepam (Ativan) 2 mg PRN Q4HRS PRN IV ANXIETY / AGITATION Last administered on 09/11/18at 21:20; Start 09/10/18 at 22:30 Haloperidol Lactate (Haldol Inj) 5 mg 1X ONCE IVP ; Start 09/10/18 at 23:00; Stop 09/10/18 at 23:01; Status DC Sodium Chloride 1,000 ml @ 1,000 mls/hr Q1H PRN IV hypotension; Start 09/11/18 at 07:06; Stop 09/11/18 at 13:05; Status DC Albumin Human 200 ml @ 200 mls/hr 1X PRN PRN IV Hypotension; Start 09/11/18 at 07:15; Stop 09/11/18 at 13:14; Status DC Sodium Chloride 1,000 ml @ 400 mls/hr Q2H30M PRN IV PATENCY; Start 09/11/18 at 07:06; Stop 09/11/18 at 19:05; Status DC Info (PHARMACY MONITORING -- do not chart) 1 each PRN DAILY PRN MC SEE COMMENTS ; Start 09/11/18 at 07:15; Status UNV Info (PHARMACY MONITORING -- do not chart) 1 each PRN DAILY PRN MC SEE COMMENTS ; Start 09/11/18 at 07:15; Status UNV Metoprolol Succinate (Toprol Xl) 25 mg DAILY PO Last administered on 09/20/18at 08:32; Start 09/11/18 at 09:00 Haloperidol Lactate (Haldol Inj) 5 mg PRN Q3HRS PRN IVP AGITATION 2ND CHOICE Last administered on 09/11/18at 22:09; Start 09/11/18 at 22:00 Acetaminophen/ Hydrocodone Bitart (Lortab 5/325) 1 tab 1X ONCE PO Last administered on 09/12/18at 22:03; Start 09/12/18 at 22:00; Stop 09/12/18 at 22:01 ; Status DC Sodium Chloride 1,000 ml @ 1,000 mls/hr Q1H PRN IV hypotension; Start 09/13/18 at 08:06; Stop 09/13/18 at 14:05; Status DC Albumin Human 200 ml @ 200 mls/hr 1X PRN PRN IV Hypotension; Start 09/13/18 at 08:15; Stop 09/13/18 at 14:14; Status DC Acetaminophen (Tylenol) 500 mg 1X PRN PRN PO MILD PAIN / TEMP; Start 09/13/18 at 08:15; Stop 09/14/18 at 08:14; Status DC Diphenhydramine HCl (Benadryl) 25 mg 1X PRN PRN IV ITCHING; Start 09/13/18 at 08:15; Stop 09/14/18 at 08:14; Status DC Diphenhydramine HCl (Benadryl) 25 mg 1X PRN PRN IV ITCHING; Start 09/13/18 at 08:15; Stop 09/14/18 at 08:14; Status DC Sodium Chloride 1,000 ml @ 400 mls/hr Q2H30M PRN IV PATENCY; Start 09/13/18 at 08:06; Stop 09/13/18 at 20:05; Status DC Info (PHARMACY MONITORING -- do not chart) 1 each PRN DAILY PRN MC SEE COMMENTS ; Start 09/13/18 at 08:15; Stop 09/18/18 at 08:59; Status DC Morphine Sulfate (Ms Contin) 10 mg BID PRN PO PAIN; Start 09/14/18 at 11:00; Stop 09/14/18 at 11:09; Status DC Morphine Sulfate (Ms Contin) 15 mg BID PO Last administered on 09/20/18at 08:32 ; Start 09/14/18 at 11:30 Sodium Chloride 1,000 ml @ 1,000 mls/hr Q1H PRN IV hypotension; Start 09/15/18 at 07:14; Stop 09/15/18 at 13:13; Status DC Albumin Human 200 ml @ 200 mls/hr 1X PRN PRN IV Hypotension; Start 09/15/18 at 07:15; Stop 09/15/18 at 13:14; Status DC Sodium Chloride (Normal Saline Flush) 10 ml 1X PRN PRN IV ENERGY CONSERVATION REPRESENTATIVE catheter pack; Start 09/15/18 at 07:15; Stop 09/16/18 at 07:14; Status DC Sodium Chloride 1,000 ml @ 400 mls/hr Q2H30M PRN IV PATENCY; Start 09/15/18 at 07:14; Stop 09/15/18 at 19:13; Status DC Info (PHARMACY MONITORING -- do not chart) 1 each PRN DAILY PRN MC SEE COMMENTS ; Start 09/15/18 at 07:15; Stop 09/15/18 at 07:20; Status DC Info (PHARMACY MONITORING -- do not chart) 1 each PRN DAILY PRN MC SEE COMMENTS ; Start 09/15/18 at 07:15; Stop 09/15/18 at 07:20; Status DC Vancomycin HCl 1.25 gm/Sodium Chloride 250 ml @ 166.667 mls/hr 1X ONCE IV Last administered on 09/15/18at 12:58; Start 09/15/18 at 12:30; Stop 09/15/18 at 13:59; Status DC Vancomycin HCl (Vanco Per Pharmacy) 1 each PRN DAILY PRN MC SEE COMMENTS Last administered on 09/19/18at 10:09; Start 09/15/18 at 12:30; Stop 09/20/18 at 08:39 ; Status DC Micafungin Sodium 100 mg/Dextrose 100 ml @ 100 mls/hr Q24H IV Last administered on 09/17/18at 14:47; Start 09/15/18 at 14:00; Stop 09/18/18 at 08:04 ; Status DC Vancomycin HCl (Vancomycin Random Level) 1 each 1X ONCE MC Last administered on 09/18/18at 05:00; Start 09/18/18 at 05:00; Stop 09/18/18 at 05:01; Status DC Iohexol (Omnipaque 240 Mg/ml) 50 ml 1X ONCE PO Last administered on 09/16/18at 12:15; Start 09/16/18 at 12:15; Stop 09/16/18 at 12:16; Status DC Info (CONTRAST GIVEN -- Rx MONITORING) 1 each PRN DAILY PRN MC SEE COMMENTS; Start 09/16/18 at 12:15; Stop 09/18/18 at 12:14; Status DC Sodium Chloride 1,000 ml @ 1,000 mls/hr Q1H PRN IV hypotension; Start 09/18/18 at 07:00; Stop 09/18/18 at 12:59; Status DC Sodium Chloride 1,000 ml @ 400 mls/hr Q2H30M PRN IV PATENCY; Start 09/18/18 at 07:00; Stop 09/18/18 at 18:59; Status DC Info (PHARMACY MONITORING -- do not chart) 1 each PRN DAILY PRN MC SEE COMMENTS ; Start 09/18/18 at 08:45; Status Cancel Vancomycin HCl 1 gm/Sodium Chloride 250 ml @ 250 mls/hr 1X ONCE IV Last administered on 09/18/18at 14:16; Start 09/18/18 at 15:00; Stop 09/18/18 at 15:59 ; Status DC Vancomycin HCl 500 mg/Sodium Chloride 100 ml @ 100 mls/hr QTUTHSA IV ; Start at 16:00; Stop 09/20/18 at 16:00; Status DC Gentamicin Sulfate 300 mg/ Sodium Chloride 107.5 ml @ 107.5 mls/ hr 1X STAT IV Last administered on 09/19/18at 09:07; Start 09/19/18 at 08:00; Stop at 08:59; Status DC Lidocaine/ Epinephrine (LIDOCAINE 1%-EPI 1:100,000 Multi-Dose) 20 ml STK-MED ONCE .ROUTE ; Start 09/19/18 at 13:11; Stop 09/19/18 at 13:12; Status DC Lidocaine/ Epinephrine (LIDOCAINE 1%-EPI 1:100,000 Multi-Dose) 7 ml 1X ONCE INJ Last administered on 09/19/18at 14:31; Start 09/19/18 at 14:30; Stop at 14:31; Status DC Active Scripts Active [Pantoprazole] 40 MG Tablet.dr 40 Mg PO BIDAC 30 Days [Darbepoetin Napoleon In Polysorbat] 60 MCG/0.3 ML Disp.syrin 60 Mcg SQ WEEKLYHS 7 Days Poly-Iron (Iron Polysaccharides Complex) 150 Mg Capsule 150 Mg PO BID66 30 Days Vitals/I & O Vital Sign - Last 24 Hours 09/19/18 09/19/18 09/19/18 09/19/18 14:56 19:00 20:00 20:06 Temp 98.5 98.5 Pulse 85 Resp 18 18 B/P (MAP) 132/69 (90) Pulse Ox 95 95 O2 Delivery Room Air Room Air Room Air Room Air 09/19/18 09/19/18 09/19/18 09/19/18 20:14 21:57 22:37 22:57 Temp 98.6 98.5 98.6 98.5 Pulse 92 90 Resp 16 18 16 18 B/P (MAP) 144/76 (98) 128/70 (89) Pulse Ox 92 92 92 92 O2 Delivery Room Air Room Air Room Air Room Air 09/20/18 09/20/18 09/20/18 09/20/18 00:06 03:01 07:00 07:56 Temp 98.9 97.7 98.9 97.7 Pulse 87 94 Resp 18 16 16 B/P (MAP) 121/67 (85) 145/71 (95) Pulse Ox 92 92 90 O2 Delivery Room Air Room Air Room Air Room Air 09/20/18 09/20/18 09/20/18 08:32 08:32 11:00 Temp 98.0 98.0 Pulse 94 84 Resp 18 B/P (MAP) 145/71 132/72 (92) Pulse Ox 90 94 O2 Delivery Room Air Room Air O2 Flow Rate 2.0 Intake and Output 09/19/18 09/19/18 09/20/18 15:00 23:00 07:00 Intake Total 240 ml 850 ml 670 ml Output Total 375 ml Balance 240 ml 850 ml 295 ml JAIR BARRERA MD Sep 20, 2018 13:17
[2018-09-20 15:00] VITALS: BP 139/77
[2018-09-20] MEDS ORDERED: VANCOMYCIN 500 MG in IV NORMAL SALINE 100ML 100 ML IV SCH (16:00)
[2018-09-20] MEDS: LISINOPRIL 10 MG TABLET PO SCH (17:26)
[2018-09-20 19:07] VITALS: BP 130/70
[2018-09-20] MEDS: QUEtiapine 25 MG TABLET. PO SCH (21:15)
[2018-09-20] MEDS: DARBEPOETIN ALFA 60 MCG/0.3 ML DISP.SYRIN. SQ SCH (21:15)
[2018-09-20] MEDS: traMADol 50 MG TABLET PO PRN (21:18)
[2018-09-20 23:30] VITALS: BP 126/70
[2018-09-21 03:22] VITALS: BP 123/75
[2018-09-21 04:47] LABS: CALCIUM 8.2 mg/dL (8.5-10.1); CREATININE 8.6 mg/dL (0.7-1.3); GFR 6.5; POTASSIUM 4.6 mmol/L (3.5-5.1)
[2018-09-21] MEDS: PIPERACILLIN/TAZOBACTAM 2.25 GM in IV NORMAL SALINE 50ML 50 ML IV SCH ×2 (06:36→12:44)
[2018-09-21] MEDS: IRON POLYSACCHARIDE COMPLEX 150 MG CAPSULE PO SCH (06:37)
[2018-09-21 07:00] VITALS: BP 136/74
--- NOTE | 2018-09-21 07:42 | PDOC ---
Infectious Disease Note Subjective Subjective feeling better ROS ROS no n/v/d/sob Vital Sign Vital Signs Vital Signs Date Time Temp Pulse Resp B/P (MAP) Pulse Ox O2 Delivery O2 Flow Rate FiO2 09/21/18 03:22 98.1 83 16 123/75 (91) 92 Room Air 98.1 09/20/18 08:32 2.0 Physical Exam PHYSICAL EXAM GENERAL: Sleeping HEENT: Oral cavity, pharynx is clear. Dentures in place NECK: Supple, no JVD. LUNGS: Decreased in the bases. L CT out HEART: S1, S2. ABDOMEN: Flat. No guarding, no rebound. GENITOURINARY: Suprapubic Holloway is in place EXTREMITIES: No clubbing, cyanosis or gross edema. No signs of any splinter hemorrhages in his toes. He does have a hammertoe in his left foot. SKIN: Warm to touch without signs of rash. NEUROLOGIC: Arouses to name Right-sided chest hemodialysis catheter without signs of complications. Labs Lab Laboratory Tests Test 09/21/18 04:30 White Blood Count 12.3 x10^3/uL (4.0-11.0) Red Blood Count 2.65 x10^6/uL (4.30-5.70) Hemoglobin 7.2 g/dL (13.0-17.5) Hematocrit 22.9 % (39.0-53.0) Mean Corpuscular Volume 87 fL (79-100) Mean Corpuscular Hemoglobin 27 pg (25-35) Mean Corpuscular Hemoglobin Concent 32 g/dL (31-37) Red Cell Distribution Width 17.8 % (11.5-14.5) Platelet Count 360 x10^3/uL (140-400) Prothrombin Time 15.0 SEC (11.7-14.0) Prothromb Time International Ratio 1.2 (0.8-1.1) Sodium Level 140 mmol/L (136-145) Potassium Level 4.6 mmol/L (3.5-5.1) Chloride Level 102 mmol/L (98-107) Carbon Dioxide Level 24 mmol/L (21-32) Anion Gap 14 (6-14) Blood Urea Nitrogen 60 mg/dL (8-26) Creatinine 8.6 mg/dL (0.7-1.3) Estimated GFR (Cockcroft-Gault) 6.5 Glucose Level 100 mg/dL (70-99) Calcium Level 8.2 mg/dL (8.5-10.1) Micro BLOOD CULTURE LC Final Final report BLD CULT RESULT 1 Final Comment Pseudomonas aeruginosa BLD CULT RESULT 2 Final Serratia marcescens ANTIMICROBIAL SUSCEPTIBILITY Final Comment S = Susceptible; I = Intermediate; R = Resistant P = Positive; N = Negative MICS are expressed in micrograms per mL Antibiotic RSLT#1 RSLT#2 RSLT#3 RSLT#4 Amikacin S<=2 Amoxicillin/Clavulanic Acid R>=32 Cefazolin R>=64 Cefepime S =2 S<=0.12 Ceftazidime S =4 Ceftriaxone S<=0.25 Cefuroxime R>=64 Ciprofloxacin S<=0.25 S<=0.25 Ertapenem S<=0.12 Gentamicin S<=1 S<=1 Imipenem S =2 Levofloxacin S =1 S<=0.12 Meropenem S<=0.25 S<=0.25 Nitrofurantoin R =256 Piperacillin S<=4 Tetracycline S =4 CONTINUED ON NEXT PAGE RUN DATE: 09/19/18 Objective Assessment Sepsis w/ GNR & GPC bacteremia from 09/15. - PSA and Serretia Fever better Leukocytosis - marked increase Pleural effusion s/p chest tube 09/12 cx NGTD -Fluid analysis: glucose 77, T protein 4.0, LDH 1568 S/p Cardiac window 09/10 for pericardial effusion -cults neg so far H/o MSSA sepsis - treated - RADHA 07/10 neg. on Zosyn since 09/05 Recent GI bleed with GDA embolization CKD on HD via HDC line Anemia Plan Plan of Care Cont Zosyn, gent x 1 CT chest , abd and pelvis, noted Repeat CBC now and in am Probiotics D/w nursing ok to place HD today and then d/c after HD will be on po cipro and iv gent for 2 wks f/u with me in 2 wks CHAPIN VALERIO MD Sep 21, 2018 07:42
[2018-09-21] MEDS ORDERED: 0.9 % SODIUM CHLORIDE 10 ML DISP.SYRIN. IV PRN ×2 (08:45)
[2018-09-21] MEDS ORDERED: IV NORMAL SALINE 1000ML BAG 1,000 ML IV PRN ×2 (08:45)
[2018-09-21] MEDS ORDERED: DIALYSIS PATIENT. MC PRN ×2 (08:45)
[2018-09-21] MEDS ORDERED: LIDOCAINE 1%/EPI 1:100,000 20 ML VIAL. ONE (09:05)
[2018-09-21] MEDS ORDERED: fentaNYL PF VIAL 100 MCG/2 ML VIAL ONE (09:06)
[2018-09-21] MEDS ORDERED: MIDAZOLAM HCL/PF 2 MG/2 ML VIAL. ONE (09:06)
[2018-09-21] MEDS ORDERED: LIDOCAINE 1%/EPI 1:100,000 20 ML VIAL. IJ ONE (09:15)
[2018-09-21] MEDS ORDERED: MIDAZOLAM HCL/PF 2 MG/2 ML VIAL. IV ONE (09:15)
[2018-09-21] MEDS ORDERED: fentaNYL PF VIAL 100 MCG/2 ML VIAL IV ONE (09:15)
--- NOTE | 2018-09-21 09:20 | PDOC ---
PULMONARY PROGRESS NOTES Subjective NOT MORE SOA Vitals Vital Signs Date Time Temp Pulse Resp B/P (MAP) Pulse Ox O2 Delivery O2 Flow Rate FiO2 09/21/18 07:00 98.3 136/74 (94) 98.3 09/21/18 03:22 83 16 92 Room Air 09/20/18 08:32 2.0 ROS: No Nausea, No Chest Pain General: Alert, No acute distress HEENT: Other Lungs: Other (l ct , dull left base, ) Cardiovascular: S1, S2 Abdomen: Soft, Non-tender Neuro Exam: Alert Extremities: No Edema Skin: Warm Labs Laboratory Tests Test 09/20/18 04:20 09/21/18 04:30 Sodium Level 141 mmol/L (136-145) 140 mmol/L (136-145) Potassium Level 4.6 mmol/L (3.5-5.1) 4.6 mmol/L (3.5-5.1) Chloride Level 101 mmol/L (98-107) 102 mmol/L (98-107) Carbon Dioxide Level 27 mmol/L (21-32) 24 mmol/L (21-32) Anion Gap 13 (6-14) 14 (6-14) Blood Urea Nitrogen 48 mg/dL (8-26) 60 mg/dL (8-26) Creatinine 7.4 mg/dL (0.7-1.3) 8.6 mg/dL (0.7-1.3) Estimated GFR (Cockcroft-Gault) 7.7 6.5 Glucose Level 97 mg/dL (70-99) 100 mg/dL (70-99) Calcium Level 8.1 mg/dL (8.5-10.1) 8.2 mg/dL (8.5-10.1) White Blood Count 12.3 x10^3/uL (4.0-11.0) Red Blood Count 2.65 x10^6/uL (4.30-5.70) Hemoglobin 7.2 g/dL (13.0-17.5) Hematocrit 22.9 % (39.0-53.0) Mean Corpuscular Volume 87 fL (79-100) Mean Corpuscular Hemoglobin 27 pg (25-35) Mean Corpuscular Hemoglobin Concent 32 g/dL (31-37) Red Cell Distribution Width 17.8 % (11.5-14.5) Platelet Count 360 x10^3/uL (140-400) Prothrombin Time 15.0 SEC (11.7-14.0) Prothromb Time International Ratio 1.2 (0.8-1.1) Laboratory Tests Test 09/21/18 04:30 White Blood Count 12.3 x10^3/uL (4.0-11.0) Red Blood Count 2.65 x10^6/uL (4.30-5.70) Hemoglobin 7.2 g/dL (13.0-17.5) Hematocrit 22.9 % (39.0-53.0) Mean Corpuscular Volume 87 fL (79-100) Mean Corpuscular Hemoglobin 27 pg (25-35) Mean Corpuscular Hemoglobin Concent 32 g/dL (31-37) Red Cell Distribution Width 17.8 % (11.5-14.5) Platelet Count 360 x10^3/uL (140-400) Prothrombin Time 15.0 SEC (11.7-14.0) Prothromb Time International Ratio 1.2 (0.8-1.1) Sodium Level 140 mmol/L (136-145) Potassium Level 4.6 mmol/L (3.5-5.1) Chloride Level 102 mmol/L (98-107) Carbon Dioxide Level 24 mmol/L (21-32) Anion Gap 14 (6-14) Blood Urea Nitrogen 60 mg/dL (8-26) Creatinine 8.6 mg/dL (0.7-1.3) Estimated GFR (Cockcroft-Gault) 6.5 Glucose Level 100 mg/dL (70-99) Calcium Level 8.2 mg/dL (8.5-10.1) Medications Active Scripts Medications Dose Route/Sig Max Daily Dose Days Date Category [Pantoprazole] 40 MG Tablet.dr 40 Mg PO BIDAC 30 08/25/18 Rx [Darbepoetin [place] In Polysorbat] 60 MCG/0.3 ML Disp.syrin 60 Mcg SQ WEEKLYHS 7 08/25/18 Rx Poly-Iron (Iron Polysaccharides Complex) 150 Mg Capsule 150 Mg PO BID66 30 08/25/18 Rx Impression . 1. Acute recurrent hypoxic respiratory failure secondary to multifactorial etiologies including recent subacute pericardial effusion with early tamponade physiology, underlying chronic obstructive pulmonary disease, anemia, bilateral pleural effusions more loculated on the left and encephalopathy. 2. Abnormal CT chest with persistent loculated left-sided pleural effusion. s/ p left chest tube., removal 09/15 3. Moderate to large pericardial effusion, status post pericardial window. 4. History of small pulmonary embolism last month, which subsequently resolved. He was not treated as at that time he was having severe anemia and gastrointestinal bleed. No DVT/ No history of inferior vena cava filter. 5. End-stage renal disease, on hemodialysis. 6. Underlying chronic obstructive pulmonary disease. 7. Low-grade fever, which has responded to current antibiotic. 8. H/O Cavitary nodules, likely related to staph infection, overall improved. 9. ? sepsis, b cx, GRAM NEGATIVE RODS AND GRAMS POSITIVE COCCI SEEN IN 1 OF 2 BOTTLES; Plan . CATH TO BE REMOVED ANTIBX PER ID D/C HOME REPEAT CT CHEST IN 2-3 MONTHS SPOKE WITH PT AND MOTHER THEY WHERE GIVEN MY OFFICE CARD CAYDEN MERRILL MD Sep 21, 2018 09:20
--- NOTE | 2018-09-21 09:37 | NUR ---
SS following up with discharge planning. SS received script for IV antibiotics. SS phoned and faxed script and clinical information to [facility] in [place], ; fax [phone]. SS received confirmation that script was received. Pt's RN notified.
[2018-09-21 09:54] VITALS: BP 157/100
[2018-09-21] MEDS: CALCIUM ACETATE 667 MG CAPSULE PO SCH ×2 (10:35→12:00)
[2018-09-21] MEDS: LACTOBACILLUS RHAMNOSUS GG 1 CAPSULE. PO SCH (10:35)
[2018-09-21] MEDS: PANTOPRAZOLE 40 MG TABLET.DR. PO SCH (10:35)
[2018-09-21] MEDS: MORPHINE ER 15 MG TABLET.ER PO SCH (10:35)
[2018-09-21] MEDS: FOLIC/VIT B COMP W-C (RENAL) TABLET. PO SCH (10:41)
--- NOTE | 2018-09-21 10:51 | NUR ---
patient returned from dialysis catheter placement and ate breakfast then left to dialysis. He was stable with no bleeding and good vitals, using 2 liters of O2.
[2018-09-21 11:00] VITALS: BP 135/82
--- NOTE | 2018-09-21 11:01 | PDOC ---
Renal-Progress Notes Subjective Notes Notes FEELING BETTER History of Present Illness Hx of present illness STABLE Vitals Vitals Vital Signs Date Time Temp Pulse Resp B/P (MAP) Pulse Ox O2 Delivery O2 Flow Rate FiO2 09/21/18 10:35 Nasal Cannula 2.0 09/21/18 09:54 88 20 95 09/21/18 07:00 98.3 136/74 (94) 98.3 Weight Weight [ ] I.O. Intake and Output Intake and Output 09/21/18 07:00 Intake Total 200 ml Output Total 525 ml Balance -325 ml Intake Oral 100 ml IV Total 100 ml Output Urine Total 525 ml Labs Labs Laboratory Tests Test 09/21/18 04:30 White Blood Count 12.3 x10^3/uL (4.0-11.0) Red Blood Count 2.65 x10^6/uL (4.30-5.70) Hemoglobin 7.2 g/dL (13.0-17.5) Hematocrit 22.9 % (39.0-53.0) Mean Corpuscular Volume 87 fL (79-100) Mean Corpuscular Hemoglobin 27 pg (25-35) Mean Corpuscular Hemoglobin Concent 32 g/dL (31-37) Red Cell Distribution Width 17.8 % (11.5-14.5) Platelet Count 360 x10^3/uL (140-400) Prothrombin Time 15.0 SEC (11.7-14.0) Prothromb Time International Ratio 1.2 (0.8-1.1) Sodium Level 140 mmol/L (136-145) Potassium Level 4.6 mmol/L (3.5-5.1) Chloride Level 102 mmol/L (98-107) Carbon Dioxide Level 24 mmol/L (21-32) Anion Gap 14 (6-14) Blood Urea Nitrogen 60 mg/dL (8-26) Creatinine 8.6 mg/dL (0.7-1.3) Estimated GFR (Cockcroft-Gault) 6.5 Glucose Level 100 mg/dL (70-99) Calcium Level 8.2 mg/dL (8.5-10.1) Micro Micro Microbiology 09/18/18 Blood Culture - Final, Complete 09/12/18 Anaerobic/Aerobic Culture - Final, Complete 09/12/18 Anaerobic Culture Result 1 (NATHAN) - Final, Complete 09/12/18 Aerobic Culture - Final, Complete 09/12/18 Aerobic Culture Result 1 (NATHAN) - Final, Complete 09/12/18 Gram Stain - Final, Complete 09/12/18 Gram Stain Result 1 (NATHAN) - Final, Complete 09/12/18 Gram Stain Result 2 (NATHAN) - Final, Complete 09/19/18 Aerobic Culture, Resulted Pending 09/19/18 Aerobic Culture Result 1 (NATHAN), Resulted Pending 09/19/18 Gram Stain - Final, Resulted 09/19/18 Gram Stain Result 1 (NATHAN) - Final, Resulted 09/19/18 Gram Stain Result 2 (NATHAN) - Final, Resulted Review of Systems Constitutional: yes: alert, oriented Ears/Nose/Throat: Yes: no symptom reported Eyes: Yes: no symptom reported Pulmonary: Yes dyspnea Cardiovascular: Yes no symptom reported Gastrointestional: Yes: no symptom reported Genitourinary: Yes: no symptom reported Musculoskeletal: Yes: no symptom reported Skin: Yes no symptom reported Psychiatric/Neurological: Yes: no symptom reported Endocrine: Yes: no symptom reported Physical Exam General Appearance: no apparent distress Skin: warm Respiratory: bilateral CTA Heart: S1S2, RRR Abdomen: soft, bowel sounds present Genitourinary: bladder flat Extremities: pulses present Neurology: alert, oriented, follow commands Assessment Assessment IMP ESRD-TTS DIASTOLIC AND SYSTOLIC ACUTE ON CHRONIC CHF CARDIOMYOPATHY ACUTE HYPOXIC RESP FAILURE ANEMIA ? DRUG SEEKING ESRD DUE TO CHRONIC HYDRONEPHROSIS-TTS HTN HX NON COMPLIANCE HX PERICARDIAL EFFUSION-S/P WINDOW BACTEREMIA-SEPSIS S/P CHEST TUBE FOR EFFUSION PLAN ARANESP ANTIBIOTICS HD TODAY UF TO DW D/;C AFTER HD OP GENT ORDERED WILL FOLLOW D/W MARIIA FAIR MD Sep 21, 2018 11:01
--- NOTE | 2018-09-21 11:28 | PDOC ---
PROGRESS NOTES Chief Complaint Chief Complaint CC: Dyspnea Gram-positive cocci and gram-negative rods bacteremia most likely secondary to catheter-related bloodstream infection ESRD on HD TTHS Anemia of ESRD Recent massive gI bleed s./p IR coiling - hgb 9.5 Weakness Small to mod pericardial effusion Acute on chronic systolic CHF Cardiomyopathy: EF 35% Patient has exhibiited drug seeking behavior History of bilateral pulmonary infiltrates and nodules History of Present Illness History of Present Illness Pt is a 53 y/o male who was admitted due to sepsis. PMHx of ESRD on dialysis. The patient was seen in IR. he was about to have his HD cath placed. He is okay with leaving today after HD. I discussed the pt with his RN and IR. Vitals Vitals Vital Signs Date Time Temp Pulse Resp B/P (MAP) Pulse Ox O2 Delivery O2 Flow Rate FiO2 09/21/18 10:35 Nasal Cannula 2.0 09/21/18 09:54 88 20 95 09/21/18 07:00 98.3 136/74 (94) 98.3 Physical Exam Physical Exam PE deferred to protect sterile field. Labs LABS Laboratory Tests Test 09/21/18 04:30 White Blood Count 12.3 x10^3/uL (4.0-11.0) Red Blood Count 2.65 x10^6/uL (4.30-5.70) Hemoglobin 7.2 g/dL (13.0-17.5) Hematocrit 22.9 % (39.0-53.0) Mean Corpuscular Volume 87 fL (79-100) Mean Corpuscular Hemoglobin 27 pg (25-35) Mean Corpuscular Hemoglobin Concent 32 g/dL (31-37) Red Cell Distribution Width 17.8 % (11.5-14.5) Platelet Count 360 x10^3/uL (140-400) Prothrombin Time 15.0 SEC (11.7-14.0) Prothromb Time International Ratio 1.2 (0.8-1.1) Sodium Level 140 mmol/L (136-145) Potassium Level 4.6 mmol/L (3.5-5.1) Chloride Level 102 mmol/L (98-107) Carbon Dioxide Level 24 mmol/L (21-32) Anion Gap 14 (6-14) Blood Urea Nitrogen 60 mg/dL (8-26) Creatinine 8.6 mg/dL (0.7-1.3) Estimated GFR (Cockcroft-Gault) 6.5 Glucose Level 100 mg/dL (70-99) Calcium Level 8.2 mg/dL (8.5-10.1) Review of Systems Review of Systems Gen: denies fever, chills Heart: denies CP, palp Lung: denies cough, SOA Abd: denies N/V/D Assessment and Plan Assessmemt and Plan Assessment: CC: Dyspnea Gram-positive cocci and gram-negative rods bacteremia most likely secondary to catheter-related bloodstream infection ESRD on HD TTHS Anemia of ESRD Recent massive gI bleed s./p IR coiling - hgb 9.5 Weakness Small to mod pericardial effusion Acute on chronic systolic CHF Cardiomyopathy: EF 35% Patient has exhibiited drug seeking behavior History of bilateral pulmonary infiltrates and nodules Plan: Antibiotics as per infectious disease application packaging consultant. We'll likely discharge on ciprofloxacin and gentamicin Hemodialysis catheter insertion today HD today Hope to discharge today after dialysis if okay but subspecialist ID to coordinate with Nephrology antibiotic therapy Dialysis as scheduled Follow cardiology recommendations to optimize medical therapy for his cardiomyopathy Follow daily labs PT/OT Home meds Appreciate subspecialist input Comment Review of Relevant I have reviewed the following items allyson (where applicable) has been applied. Labs Laboratory Tests Test 09/20/18 04:20 09/21/18 04:30 Sodium Level 141 mmol/L (136-145) 140 mmol/L (136-145) Potassium Level 4.6 mmol/L (3.5-5.1) 4.6 mmol/L (3.5-5.1) Chloride Level 101 mmol/L (98-107) 102 mmol/L (98-107) Carbon Dioxide Level 27 mmol/L (21-32) 24 mmol/L (21-32) Anion Gap 13 (6-14) 14 (6-14) Blood Urea Nitrogen 48 mg/dL (8-26) 60 mg/dL (8-26) Creatinine 7.4 mg/dL (0.7-1.3) 8.6 mg/dL (0.7-1.3) Estimated GFR (Cockcroft-Gault) 7.7 6.5 Glucose Level 97 mg/dL (70-99) 100 mg/dL (70-99) Calcium Level 8.1 mg/dL (8.5-10.1) 8.2 mg/dL (8.5-10.1) White Blood Count 12.3 x10^3/uL (4.0-11.0) Red Blood Count 2.65 x10^6/uL (4.30-5.70) Hemoglobin 7.2 g/dL (13.0-17.5) Hematocrit 22.9 % (39.0-53.0) Mean Corpuscular Volume 87 fL (79-100) Mean Corpuscular Hemoglobin 27 pg (25-35) Mean Corpuscular Hemoglobin Concent 32 g/dL (31-37) Red Cell Distribution Width 17.8 % (11.5-14.5) Platelet Count 360 x10^3/uL (140-400) Prothrombin Time 15.0 SEC (11.7-14.0) Prothromb Time International Ratio 1.2 (0.8-1.1) Laboratory Tests Test 09/21/18 04:30 White Blood Count 12.3 x10^3/uL (4.0-11.0) Red Blood Count 2.65 x10^6/uL (4.30-5.70) Hemoglobin 7.2 g/dL (13.0-17.5) Hematocrit 22.9 % (39.0-53.0) Mean Corpuscular Volume 87 fL (79-100) Mean Corpuscular Hemoglobin 27 pg (25-35) Mean Corpuscular Hemoglobin Concent 32 g/dL (31-37) Red Cell Distribution Width 17.8 % (11.5-14.5) Platelet Count 360 x10^3/uL (140-400) Prothrombin Time 15.0 SEC (11.7-14.0) Prothromb Time International Ratio 1.2 (0.8-1.1) Sodium Level 140 mmol/L (136-145) Potassium Level 4.6 mmol/L (3.5-5.1) Chloride Level 102 mmol/L (98-107) Carbon Dioxide Level 24 mmol/L (21-32) Anion Gap 14 (6-14) Blood Urea Nitrogen 60 mg/dL (8-26) Creatinine 8.6 mg/dL (0.7-1.3) Estimated GFR (Cockcroft-Gault) 6.5 Glucose Level 100 mg/dL (70-99) Calcium Level 8.2 mg/dL (8.5-10.1) Microbiology 09/18/18 Blood Culture - Final, Complete 09/12/18 Anaerobic/Aerobic Culture - Final, Complete 09/12/18 Anaerobic Culture Result 1 (NATHAN) - Final, Complete 09/12/18 Aerobic Culture - Final, Complete 09/12/18 Aerobic Culture Result 1 (NATHAN) - Final, Complete 09/12/18 Gram Stain - Final, Complete 09/12/18 Gram Stain Result 1 (NATHAN) - Final, Complete 09/12/18 Gram Stain Result 2 (NATHAN) - Final, Complete 09/19/18 Aerobic Culture, Resulted Pending 09/19/18 Aerobic Culture Result 1 (NATHAN), Resulted Pending 09/19/18 Gram Stain - Final, Resulted 09/19/18 Gram Stain Result 1 (NATHAN) - Final, Resulted 09/19/18 Gram Stain Result 2 (NATHAN) - Final, Resulted Medications Current Medications Iohexol (Omnipaque 350 Mg/ml) 90 ml 1X ONCE IV Last administered on 09/05/18at 17:21; Start 09/05/18 at 17:15; Stop 09/05/18 at 17:16; Status DC Info (CONTRAST GIVEN -- Rx MONITORING) 1 each PRN DAILY PRN MC SEE COMMENTS; Start 09/05/18 at 17:15; Stop 09/07/18 at 17:14; Status DC Polysaccharide Iron Complex (Niferex 150) 150 mg BID66 PO Last administered on 09/21/18at 06:37; Start 09/05/18 at 21:00 Darbepoetin Napoleon (Aranesp) 60 mcg WEEKLYHS SQ ; Start 09/10/18 at 21:00; Status Cancel Pantoprazole Sodium (Protonix) 40 mg BIDAC PO Last administered on 09/05/18at 20 :57; Start 09/05/18 at 21:00; Stop 09/06/18 at 10:25; Status DC Vitamin B Complex/ Vitamin C (Amssiel-Darrel) 1 tab DAILY PO Last administered on 09/21/18at 10:41; Start 09/06/18 at 09:00 Calcium Acetate (Phoslo) 667 mg TIDWMEALS PO Last administered on 09/21/18at 10: 35; Start 09/06/18 at 08:00 Piperacillin Sod/ Tazobactam Sod (Zosyn Per Pharmacy) 1 each PRN DAILY PRN MC SEE COMMENTS; Start 09/05/18 at 17:45 Piperacillin Sod/ Tazobactam Sod 2.25 gm/Sodium Chloride 50 ml @ 100 mls/hr 1X ONCE IV Last administered on 09/05/18at 18:17; Start 09/05/18 at 17:45; Stop 09/05/18 at 18:14; Status DC Fentanyl Citrate (Fentanyl 2ml Vial) 50 mcg 1X ONCE IV Last administered on at 18:13; Start 09/05/18 at 18:00; Stop 09/05/18 at 18:01; Status DC Piperacillin Sod/ Tazobactam Sod 2.25 gm/Sodium Chloride 50 ml @ 100 mls/hr Q8HRS IV Last administered on 09/21/18at 06:36; Start 09/06/18 at 00:00 Tramadol HCl (Ultram) 50 mg PRN Q6HRS PRN PO MODERATE PAIN Last administered on 09/20/18at 21:18; Start 09/06/18 at 01:30 Acetaminophen (Tylenol) 650 mg PRN Q6HRS PRN PO MILD PAIN Last administered on 09/18/18at 14:24; Start 09/06/18 at 01:30 Sodium Chloride 1,000 ml @ 1,000 mls/hr Q1H PRN IV hypotension; Start 09/06/18 at 08:09; Stop 09/06/18 at 14:08; Status DC Albumin Human 200 ml @ 200 mls/hr 1X PRN PRN IV Hypotension; Start 09/06/18 at 08:15; Stop 09/06/18 at 14:14; Status DC Acetaminophen (Tylenol) 500 mg 1X PRN PRN PO MILD PAIN / TEMP; Start 09/06/18 at 08:15; Stop 09/07/18 at 08:14; Status DC Diphenhydramine HCl (Benadryl) 25 mg 1X PRN PRN IV ITCHING; Start 09/06/18 at 08:15; Stop 09/07/18 at 08:14; Status DC Diphenhydramine HCl (Benadryl) 25 mg 1X PRN PRN IV ITCHING; Start 09/06/18 at 08:15; Stop 09/07/18 at 08:14; Status DC Sodium Chloride 1,000 ml @ 400 mls/hr Q2H30M PRN IV PATENCY; Start 09/06/18 at 08:09; Stop 09/06/18 at 20:08; Status DC Info (PHARMACY MONITORING -- do not chart) 1 each PRN DAILY PRN MC SEE COMMENTS ; Start 09/06/18 at 08:15; Stop 09/13/18 at 08:15; Status DC Metoprolol Succinate (Toprol Xl) 25 mg DAILY PO Last administered on 09/06/18at 14:00; Start 09/06/18 at 11:00; Stop 09/07/18 at 09:00; Status DC Pantoprazole Sodium (Protonix) 40 mg DAILYAC PO Last administered on 09/21/18at 10:35; Start 09/06/18 at 10:15 Fentanyl Citrate (Fentanyl 2ml Vial) 50 mcg 1X ONCE IV Last administered on at 11:54; Start 09/06/18 at 11:30; Stop 09/06/18 at 11:31; Status DC Darbepoetin Napoleon (Aranesp) 60 mcg WEEKLYHS SQ Last administered on 09/20/18at 21 :15; Start 09/06/18 at 21:00 Lactobacillus Rhamnosus (Culturelle) 1 cap BID PO Last administered on at 10:35; Start 09/06/18 at 21:00 Metoprolol Succinate (Toprol Xl) 50 mg DAILY PO Last administered on 09/10/18at 10:36; Start 09/07/18 at 09:00; Stop 09/11/18 at 08:06; Status DC Ondansetron HCl (Zofran) 4 mg PRN Q6HRS PRN IV NAUSEA/VOMITING; Start 09/10/18 at 07:00; Stop 09/10/18 at 18:00; Status DC Fentanyl Citrate (Fentanyl 2ml Vial) 25 mcg PRN Q5MIN PRN IV MILD PAIN; Start 09/10/18 at 07:00; Stop 09/10/18 at 18:00; Status DC Fentanyl Citrate (Fentanyl 2ml Vial) 50 mcg PRN Q5MIN PRN IV MODERATE TO SEVERE PAIN Last administered on 09/10/18at 14:33; Start 09/10/18 at 07:00; Stop 09/10/18 at 18:00; Status DC Morphine Sulfate (Morphine Sulfate) 1 mg PRN Q10MIN PRN IV SEVERE PAIN; Start 09/10/18 at 07:00; Stop 09/10/18 at 18:00; Status DC Ringer's Solution 1,000 ml @ 30 mls/hr Q24H IV ; Start 09/10/18 at 07:00; Stop 09/10/18 at 18:59; Status DC Lidocaine HCl (Xylocaine-Mpf 1% 2ml Vial) 2 ml PRN 1X PRN ID PRIOR TO IV START ; Start 09/10/18 at 07:00; Stop 09/10/18 at 18:00; Status DC Hydromorphone HCl (Dilaudid) 0.5 mg PRN Q10MIN PRN IV SEV PAIN, Second choice; Start 09/10/18 at 07:00; Stop 09/10/18 at 18:00; Status DC Prochlorperazine Edisylate (Compazine) 5 mg PACU PRN PRN IV NAUSEA, MRX1; Start 09/10/18 at 07:00; Stop 09/10/18 at 18:00; Status DC Sodium Chloride 1,000 ml @ 1,000 mls/hr Q1H PRN IV hypotension; Start 09/08/18 at 07:00; Stop 09/08/18 at 12:59; Status DC Sodium Chloride 1,000 ml @ 400 mls/hr Q2H30M PRN IV PATENCY; Start 09/08/18 at 07:00; Stop 09/08/18 at 18:59; Status DC Info (PHARMACY MONITORING -- do not chart) 1 each PRN DAILY PRN MC SEE COMMENTS ; Start 09/08/18 at 08:30; Status UNV Info (PHARMACY MONITORING -- do not chart) 1 each PRN DAILY PRN MC SEE COMMENTS ; Start 09/08/18 at 08:30; Status UNV Sodium Chloride 1,000 ml @ 1,000 mls/hr Q1H PRN IV hypotension; Start 09/10/18 at 07:00; Stop 09/10/18 at 15:00; Status DC Sodium Chloride 1,000 ml @ 400 mls/hr Q2H30M PRN IV PATENCY; Start 09/10/18 at 07:00; Stop 09/10/18 at 18:59; Status DC Info (PHARMACY MONITORING -- do not chart) 1 each PRN DAILY PRN MC SEE COMMENTS ; Start 09/10/18 at 08:00; Status UNV Info (PHARMACY MONITORING -- do not chart) 1 each PRN DAILY PRN MC SEE COMMENTS ; Start 09/10/18 at 08:00; Status UNV Cefazolin Sodium 1 gm/Sodium Chloride 500 ml @ 500 mls/hr 1X ONCE IRR Last administered on 09/10/18at 13:26; Start 09/10/18 at 12:00; Stop 09/10/18 at 12:59 ; Status DC Midazolam HCl (Versed) 2 mg STK-MED ONCE .ROUTE ; Start 09/10/18 at 12:23; Stop 09/10/18 at 12:24; Status DC Midazolam HCl (Versed) 2 mg 1X ONCE IV ; Start 09/10/18 at 12:45; Stop at 12:46; Status DC Dexamethasone Sodium Phosphate (Decadron) 20 mg STK-MED ONCE .ROUTE ; Start at 12:30; Stop 09/10/18 at 12:31; Status DC Lidocaine HCl (Lidocaine Pf 2% Vial) 5 ml STK-MED ONCE .ROUTE ; Start 09/10/18 at 12:30; Stop 09/10/18 at 12:31; Status DC Etomidate (Amidate) 20 mg STK-MED ONCE IV ; Start 09/10/18 at 12:30; Stop at 12:31; Status DC Famotidine (Pepcid Vial) 20 mg STK-MED ONCE .ROUTE ; Start 09/10/18 at 12:30; Stop 09/10/18 at 12:31; Status DC Ondansetron HCl (Zofran) 4 mg STK-MED ONCE .ROUTE ; Start 09/10/18 at 12:30; Stop 09/10/18 at 12:31; Status DC Phenylephrine HCl (Michael-Synephrine Inj) 10 mg STK-MED ONCE .ROUTE ; Start at 12:30; Stop 09/10/18 at 12:31; Status DC Rocuronium Eagle (Zemuron) 50 mg STK-MED ONCE .ROUTE ; Start 09/10/18 at 12:30 ; Stop 09/10/18 at 12:31; Status DC Fentanyl Citrate (Fentanyl 2ml Vial) 100 mcg STK-MED ONCE .ROUTE ; Start at 12:30; Stop 09/10/18 at 12:31; Status DC Midazolam HCl (Versed) 2 mg STK-MED ONCE .ROUTE ; Start 09/10/18 at 12:30; Stop 09/10/18 at 12:31; Status DC Neostigmine Methylsulfate (Bloxiverz) 10 mg STK-MED ONCE .ROUTE ; Start at 13:40; Stop 09/10/18 at 13:41; Status DC Glycopyrrolate (Robinul) 1 mg STK-MED ONCE .ROUTE ; Start 09/10/18 at 13:40; Stop 09/10/18 at 13:41; Status DC Sevoflurane (Ultane) 60 ml STK-MED ONCE IH ; Start 09/10/18 at 13:58; Stop 09/10 at 13:59; Status DC Fentanyl Citrate (Fentanyl 2ml Vial) 100 mcg STK-MED ONCE .ROUTE ; Start at 14:14; Stop 09/10/18 at 14:15; Status DC Lorazepam (Ativan) 2 mg 1X ONCE PO Last administered on 09/10/18at 22:00; Start 09/10/18 at 19:45; Stop 09/10/18 at 19:49; Status DC Lorazepam (Ativan) 1 mg PRN Q6HRS PRN PO ANXIETY / AGITATION Last administered on 09/19/18at 21:56; Start 09/10/18 at 19:45 Quetiapine Fumarate (SEROquel) 25 mg HS PO Last administered on 09/20/18at 21:15 ; Start 09/10/18 at 21:00 Lorazepam (Ativan) 2 mg PRN Q4HRS PRN IV ANXIETY / AGITATION Last administered on 09/11/18at 21:20; Start 09/10/18 at 22:30 Haloperidol Lactate (Haldol Inj) 5 mg 1X ONCE IVP ; Start 09/10/18 at 23:00; Stop 09/10/18 at 23:01; Status DC Sodium Chloride 1,000 ml @ 1,000 mls/hr Q1H PRN IV hypotension; Start 09/11/18 at 07:06; Stop 09/11/18 at 13:05; Status DC Albumin Human 200 ml @ 200 mls/hr 1X PRN PRN IV Hypotension; Start 09/11/18 at 07:15; Stop 09/11/18 at 13:14; Status DC Sodium Chloride 1,000 ml @ 400 mls/hr Q2H30M PRN IV PATENCY; Start 09/11/18 at 07:06; Stop 09/11/18 at 19:05; Status DC Info (PHARMACY MONITORING -- do not chart) 1 each PRN DAILY PRN MC SEE COMMENTS ; Start 09/11/18 at 07:15; Status UNV Info (PHARMACY MONITORING -- do not chart) 1 each PRN DAILY PRN MC SEE COMMENTS ; Start 09/11/18 at 07:15; Status UNV Metoprolol Succinate (Toprol Xl) 25 mg DAILY PO Last administered on 09/20/18at 08:32; Start 09/11/18 at 09:00 Haloperidol Lactate (Haldol Inj) 5 mg PRN Q3HRS PRN IVP AGITATION 2ND CHOICE Last administered on 09/11/18at 22:09; Start 09/11/18 at 22:00 Acetaminophen/ Hydrocodone Bitart (Lortab 5/325) 1 tab 1X ONCE PO Last administered on 09/12/18at 22:03; Start 09/12/18 at 22:00; Stop 09/12/18 at 22:01 ; Status DC Sodium Chloride 1,000 ml @ 1,000 mls/hr Q1H PRN IV hypotension; Start 09/13/18 at 08:06; Stop 09/13/18 at 14:05; Status DC Albumin Human 200 ml @ 200 mls/hr 1X PRN PRN IV Hypotension; Start 09/13/18 at 08:15; Stop 09/13/18 at 14:14; Status DC Acetaminophen (Tylenol) 500 mg 1X PRN PRN PO MILD PAIN / TEMP; Start 09/13/18 at 08:15; Stop 09/14/18 at 08:14; Status DC Diphenhydramine HCl (Benadryl) 25 mg 1X PRN PRN IV ITCHING; Start 09/13/18 at 08:15; Stop 09/14/18 at 08:14; Status DC Diphenhydramine HCl (Benadryl) 25 mg 1X PRN PRN IV ITCHING; Start 09/13/18 at 08:15; Stop 09/14/18 at 08:14; Status DC Sodium Chloride 1,000 ml @ 400 mls/hr Q2H30M PRN IV PATENCY; Start 09/13/18 at 08:06; Stop 09/13/18 at 20:05; Status DC Info (PHARMACY MONITORING -- do not chart) 1 each PRN DAILY PRN MC SEE COMMENTS ; Start 09/13/18 at 08:15; Stop 09/18/18 at 08:59; Status DC Morphine Sulfate (Ms Contin) 10 mg BID PRN PO PAIN; Start 09/14/18 at 11:00; Stop 09/14/18 at 11:09; Status DC Morphine Sulfate (Ms Contin) 15 mg BID PO Last administered on 09/21/18at 10:35; Start 09/14/18 at 11:30 Sodium Chloride 1,000 ml @ 1,000 mls/hr Q1H PRN IV hypotension; Start 09/15/18 at 07:14; Stop 09/15/18 at 13:13; Status DC Albumin Human 200 ml @ 200 mls/hr 1X PRN PRN IV Hypotension; Start 09/15/18 at 07:15; Stop 09/15/18 at 13:14; Status DC Sodium Chloride (Normal Saline Flush) 10 ml 1X PRN PRN IV INSIGHTS STRATEGIST catheter pack; Start 09/15/18 at 07:15; Stop 09/16/18 at 07:14; Status DC Sodium Chloride 1,000 ml @ 400 mls/hr Q2H30M PRN IV PATENCY; Start 09/15/18 at 07:14; Stop 09/15/18 at 19:13; Status DC Info (PHARMACY MONITORING -- do not chart) 1 each PRN DAILY PRN MC SEE COMMENTS ; Start 09/15/18 at 07:15; Stop 09/15/18 at 07:20; Status DC Info (PHARMACY MONITORING -- do not chart) 1 each PRN DAILY PRN MC SEE COMMENTS ; Start 09/15/18 at 07:15; Stop 09/15/18 at 07:20; Status DC Vancomycin HCl 1.25 gm/Sodium Chloride 250 ml @ 166.667 mls/hr 1X ONCE IV Last administered on 09/15/18at 12:58; Start 09/15/18 at 12:30; Stop 09/15/18 at 13:59; Status DC Vancomycin HCl (Vanco Per Pharmacy) 1 each PRN DAILY PRN MC SEE COMMENTS Last administered on 09/19/18at 10:09; Start 09/15/18 at 12:30; Stop 09/20/18 at 08:39 ; Status DC Micafungin Sodium 100 mg/Dextrose 100 ml @ 100 mls/hr Q24H IV Last administered on 09/17/18at 14:47; Start 09/15/18 at 14:00; Stop 09/18/18 at 08:04 ; Status DC Vancomycin HCl (Vancomycin Random Level) 1 each 1X ONCE MC Last administered on 09/18/18at 05:00; Start 09/18/18 at 05:00; Stop 09/18/18 at 05:01; Status DC Iohexol (Omnipaque 240 Mg/ml) 50 ml 1X ONCE PO Last administered on 09/16/18at 12:15; Start 09/16/18 at 12:15; Stop 09/16/18 at 12:16; Status DC Info (CONTRAST GIVEN -- Rx MONITORING) 1 each PRN DAILY PRN MC SEE COMMENTS; Start 09/16/18 at 12:15; Stop 09/18/18 at 12:14; Status DC Sodium Chloride 1,000 ml @ 1,000 mls/hr Q1H PRN IV hypotension; Start 09/18/18 at 07:00; Stop 09/18/18 at 12:59; Status DC Sodium Chloride 1,000 ml @ 400 mls/hr Q2H30M PRN IV PATENCY; Start 09/18/18 at 07:00; Stop 09/18/18 at 18:59; Status DC Info (PHARMACY MONITORING -- do not chart) 1 each PRN DAILY PRN MC SEE COMMENTS ; Start 09/18/18 at 08:45; Status Cancel Vancomycin HCl 1 gm/Sodium Chloride 250 ml @ 250 mls/hr 1X ONCE IV Last administered on 09/18/18at 14:16; Start 09/18/18 at 15:00; Stop 09/18/18 at 15:59 ; Status DC Vancomycin HCl 500 mg/Sodium Chloride 100 ml @ 100 mls/hr QTUTHSA IV ; Start at 16:00; Stop 09/20/18 at 16:00; Status DC Gentamicin Sulfate 300 mg/ Sodium Chloride 107.5 ml @ 107.5 mls/ hr 1X STAT IV Last administered on 09/19/18at 09:07; Start 09/19/18 at 08:00; Stop at 08:59; Status DC Lidocaine/ Epinephrine (LIDOCAINE 1%-EPI 1:100,000 Multi-Dose) 20 ml STK-MED ONCE .ROUTE ; Start 09/19/18 at 13:11; Stop 09/19/18 at 13:12; Status DC Lidocaine/ Epinephrine (LIDOCAINE 1%-EPI 1:100,000 Multi-Dose) 7 ml 1X ONCE INJ Last administered on 09/19/18at 14:31; Start 09/19/18 at 14:30; Stop at 14:31; Status DC Lisinopril (Prinivil) 10 mg DAILY PO Last administered on 09/20/18at 17:26; Start 09/20/18 at 17:30 Sodium Chloride 1,000 ml @ 1,000 mls/hr Q1H PRN IV hypotension; Start 09/21/18 at 08:45; Stop 09/21/18 at 14:44 Sodium Chloride (Normal Saline Flush) 10 ml 1X PRN PRN IV AP catheter pack; Start 09/21/18 at 08:45; Stop 09/22/18 at 08:44 Sodium Chloride (Normal Saline Flush) 10 ml 1X PRN PRN IV INSIGHTS STRATEGIST catheter pack; Start 09/21/18 at 08:45; Stop 09/22/18 at 08:44 Sodium Chloride 1,000 ml @ 400 mls/hr Q2H30M PRN IV PATENCY; Start 09/21/18 at 08:45; Stop 09/21/18 at 20:44 Info (PHARMACY MONITORING -- do not chart) 1 each PRN DAILY PRN MC SEE COMMENTS ; Start 09/21/18 at 08:45; Status UNV Info (PHARMACY MONITORING -- do not chart) 1 each PRN DAILY PRN MC SEE COMMENTS ; Start 09/21/18 at 08:45 Lidocaine/ Epinephrine (LIDOCAINE 1%-EPI 1:100,000 Multi-Dose) 20 ml STK-MED ONCE .ROUTE ; Start 09/21/18 at 09:05; Stop 09/21/18 at 09:06; Status DC Midazolam HCl (Versed) 2 mg STK-MED ONCE .ROUTE ; Start 09/21/18 at 09:06; Stop 09/21/18 at 09:07; Status DC Fentanyl Citrate (Fentanyl 2ml Vial) 100 mcg STK-MED ONCE .ROUTE ; Start at 09:06; Stop 09/21/18 at 09:07; Status DC Midazolam HCl (Versed) 2 mg 1X ONCE IV Last administered on 09/21/18at 09:15; Start 09/21/18 at 09:15; Stop 09/21/18 at 09:16; Status DC Fentanyl Citrate (Fentanyl 2ml Vial) 100 mcg 1X ONCE IV Last administered on at 09:15; Start 09/21/18 at 09:15; Stop 09/21/18 at 09:16; Status DC Lidocaine/ Epinephrine (LIDOCAINE 1%-EPI 1:100,000 Multi-Dose) 20 ml 1X ONCE IJ Last administered on 09/21/18at 09:15; Start 09/21/18 at 09:15; Stop 09/21/18 at 09:16; Status DC Active Scripts Active [Pantoprazole] 40 MG Tablet.dr 40 Mg PO BIDAC 30 Days [Darbepoetin Napoleon In Polysorbat] 60 MCG/0.3 ML Disp.syrin 60 Mcg SQ WEEKLYHS 7 Days Poly-Iron (Iron Polysaccharides Complex) 150 Mg Capsule 150 Mg PO BID66 30 Days Vitals/I & O Vital Sign - Last 24 Hours 09/20/18 09/20/18 09/20/18 09/20/18 15:00 17:26 19:07 20:00 Temp 98.4 98.1 98.4 98.1 Pulse 79 79 82 Resp 18 16 B/P (MAP) 139/77 (97) 139/77 130/70 (90) Pulse Ox 93 90 O2 Delivery Room Air Room Air Room Air 09/20/18 09/20/18 09/20/18 09/20/18 21:15 21:18 22:18 23:30 Temp 98.3 98.3 Pulse 77 Resp 16 B/P (MAP) 126/70 (88) Pulse Ox 90 92 O2 Delivery Room Air Room Air Room Air Room Air 09/21/18 09/21/18 09/21/18 09/21/18 01:15 03:22 07:00 07:30 Temp 98.1 98.3 98.1 98.3 Pulse 83 Resp 16 B/P (MAP) 123/75 (91) 136/74 (94) Pulse Ox 92 O2 Delivery Room Air Room Air Nasal Cannula O2 Flow Rate 2.0 09/21/18 09/21/18 09/21/18 09:15 09:54 10:35 Pulse 88 Resp 20 20 Pulse Ox 95 O2 Delivery Nasal Cannula Nasal Cannula O2 Flow Rate 2.0 2.0 Intake and Output 09/20/18 09/20/18 09/21/18 15:00 23:00 07:00 Intake Total 100 ml 100 ml Output Total 0 ml 525 ml Balance 100 ml -425 ml DEVAN NICHOLE III DO Sep 21, 2018 11:28
[2018-09-21] MEDS ORDERED: CIPR250T30 PO (11:52)
[2018-09-21] MEDS ORDERED: METO-239 PO (12:11)
[2018-09-21] MEDS ORDERED: LISI10TA2 PO (12:11)
[2018-09-21 12:28] LABS: BASO # 0.3 x10^3/uL (0.0-0.2); BASO % 3 % (0-3); EOS # 0.8 x10^3/uL (0.0-0.7); EOS % 7 % (0-3); HEMATOCRIT 23.6 % (39.0-53.0); HEMOGLOBIN 7.2 g/dL (13.0-17.5); LYMPH % 16 % (24-48); MEAN CORPUSCULAR HEMOGLOBIN 27 pg (25-35); MEAN CORPUSCULAR HGB CONC 30 g/dL (31-37); MEAN CORPUSCULAR VOLUME 88 fL (79-100); MONO # 1.2 x10^3/uL (0.0-1.1); MONO % 10 % (0-9); NEUT % 65 % (31-73); PLATELET COUNT 369 x10^3/uL (140-400); RED BLOOD COUNT 2.67 x10^6/uL (4.30-5.70); RED CELL DISTRIBUTION WIDTH 17.9 % (11.5-14.5); WHITE BLOOD COUNT 12.3 x10^3/uL (4.0-11.0)
--- NOTE | 2018-09-21 14:18 | RAD ---
Procedure: Tunneled hemodialysis catheter placement 09/21/2018 2:14 PM Clinical Indication: End-stage renal disease Sterility: All elements of maximal sterile barrier technique including the use of a cap, mask, sterile gown, sterile gloves, large sterile sheet, appropriate hand hygiene, and 2% chlorhexidine for cutaneous antisepsis (or acceptable alternative antiseptic per current guidelines) were followed for this procedure. Consent: The procedure was explained in its entirety to the patient or the patients designated shared services representative by a member of the treatment team, including a discussion of the risks, benefits and commonly accepted alternatives to the procedure, as well as the expected consequences of no therapy whatsoever. Discussion of the risks included, but was not limited to, those that are most frequent and those that are rare but possibly severe or life-threatening, as well as the possibility of unforeseen complications. Technique and Findings: Following informed consent, a timeout procedure was performed. The patient was prepped and draped in the usual sterile fashion. Ultrasound interrogation of the right neck revealed patency and compressibility of the right internal jugular vein. A 21-gauge micropuncture was then used to gain access to this vein under ultrasound guidance. A hard copy ultrasound image was recorded. The needle was exchanged over a wire for a 4 Yoruba sheath which was used to guide an guidewire into the IVC. The skin over the right anterior chest wall was copiously anesthetized with 1% Lidocaine and a small dermatotomy was made. A 23 cm tipped cuff palindrome tunneled hemodialysis catheter was then tunneled subcutaneously towards the neck dermatotomy and deployed through a large caliber peel-away sheath under fluoroscopic guidance such that the distal tip resided in the mid right atrium. Manual flow rates were assessed and found to be within normal limits. The catheter was then flushed, packed with Heparin, capped, and sutured to the skin. The neck dermatotomy was closed with Dermabond. No immediate complications were identified. Sedation: Conscious sedation was administered for 25 minutes. The patient was monitored by a qualified independent observer throughout the time of sedation. Please refer to the medical record for exact doses of medications utilized to achieve moderate sedation. Fluoroscopy time: 0.9 MIN Dose area product:: 3 Gycm2 Impression: Tunneled hemodialysis catheter placement as described
[2018-09-21] MEDS: LISINOPRIL 10 MG TABLET PO SCH (15:42)
[2018-09-21 15:43] VITALS: BP 143/77
[2018-09-21] MEDS: METOPROLOL SUCC 24HR ER 25 MG TAB.ER.24H. PO SCH (15:43)
--- NOTE | 2018-09-21 19:27 | DS ---
DATE OF DISCHARGE: 09/21/2018 ADMISSION DIAGNOSES: 1. Respiratory failure. 2. Volume overload. DISCHARGE DIAGNOSES: Resolving volume overload with end-stage renal disease, on dialysis; resolving Gram-positive and gram-negative bacteremia; chronic anemia; recent massive gastrointestinal bleed; history of a moderate pericardial effusion; acute on chronic systolic and diastolic heart failure with cardiomyopathy with an ejection fraction of 35%; history of pneumonia. CONSULTS: Multiple including Infectious Disease, Diogenes García MD; Pulmonary Medicine, Keron Helton MD; Chantelle Mcgee MD, Cardiovascular Surgery; Korey Go MD, Nephrology; Inocente Ayers MD, Cardiology. PROCEDURES: Pericardial window by Dr. Mcgee. HOSPITAL COURSE: The patient is a pleasant middle-aged male, who presented with volume overload. He had been in the hospital within the past month with upper GI bleed and had a coiling at that time. While in the ER, he is noted to have respiratory failure. He was also volume overloaded. He was admitted. All the above consults were obtained. He eventually did go for a pericardial window. He has also been dialyzed several times and basically seems to be at his baseline. He was seen and examined this morning. His heart tones were normal. His lungs were clear. We plan to discharge if okay with consultants. DISPOSITION: Home. ACTIVITY: As tolerated. DIET: Low sodium. MEDICATIONS: Please see the MRAD. TOTAL TIME: 39 minutes. DEVAN NICHOLE DO DR: KAYDEN/macey JOB#: [id number] / [id number]
== END 2018-09-21 16:05 | disposition home or self-care (01) | DRG 270 ==
LOC: ER 14:01 → 5 NORTH 17:02 → 1 WEST ICU 09-10 15:36 → 2 SOUTH 09-10 15:55
PROVIDERS: ADMIT Internal Medicine; ATTEND Internal Medicine
PROC: 0W9D0ZZ Drainage of Pericardial Cavity, Open Approach (ICD-10-PCS; principal; 2018-09-10 12:30)
PROC: 0W9B30Z Drainage of Left Pleural Cavity with Drainage Device, Percutaneous Approach (ICD-10-PCS; 2018-09-13)
PROC: 0JPV3XZ Removal of Tunneled Vascular Access Device from Upper Extremity Subcutaneous Tissue and Fascia, Percutaneous Approach (ICD-10-PCS; 2018-09-13)
PROC: 05PYX3Z Removal of Infusion Device from Upper Vein, External Approach (ICD-10-PCS; 2018-09-13)
PROC: 0W9B30Z Drainage of Left Pleural Cavity with Drainage Device, Percutaneous Approach (ICD-10-PCS; 2018-09-15)
PROC: 0JH63XZ Insertion of Tunneled Vascular Access Device into Chest Subcutaneous Tissue and Fascia, Percutaneous Approach (ICD-10-PCS; 2018-09-21)
PROC: 02H633Z Insertion of Infusion Device into Right Atrium, Percutaneous Approach (ICD-10-PCS; 2018-09-21)
PROC: B2141ZZ Fluoroscopy of Right Heart using Low Osmolar Contrast (ICD-10-PCS; 2018-09-21)
DX: I13.2 Hypertensive heart and chronic kidney disease with heart failure and with stage 5 chronic kidney disease, or end stage renal disease (principal); A41.50 Gram-negative sepsis, unspecified; I50.43 Acute on chronic combined systolic (congestive) and diastolic (congestive) heart failure; N18.6 End stage renal disease; J96.01 Acute respiratory failure with hypoxia; I31.3 Pericardial effusion (noninflammatory); J44.1 Chronic obstructive pulmonary disease with (acute) exacerbation; J91.8 Pleural effusion in other conditions classified elsewhere; N13.30 Unspecified hydronephrosis; G93.40 Encephalopathy, unspecified; J98.11 Atelectasis; I31.4 Cardiac tamponade; I42.9 Cardiomyopathy, unspecified; B96.89 Other specified bacterial agents as the cause of diseases classified elsewhere; D63.1 Anemia in chronic kidney disease; E03.9 Hypothyroidism, unspecified; Z86.19 Personal history of other infectious and parasitic diseases; Z91.19 Patient's noncompliance with other medical treatment and regimen; Z87.891 Personal history of nicotine dependence; Z86.711 Personal history of pulmonary embolism; Z76.5 Malingerer [conscious simulation]; Z87.01 Personal history of pneumonia (recurrent); Z99.2 Dependence on renal dialysis; Z82.49 Family history of ischemic heart disease and other diseases of the circulatory system
CPT/HCPCS: 32557; 36415; 36558; 36589; 36600; 71045; 71250; 71275; 74176; 76937; 77001; 80048; 80053; 80061; 80069; 80202; 80307; 82042; 82805; 82945; 82962; 83605; 83615; 83735; 83880; 84157; 84443; 84484; 85007; 85025; 85027; 85610; 86850; 86900; 86901; 87015; 87040; 87070; 87071; 87075; 87077; 87116; 87186; 87205; 87340; 87804; 88112; 88305; 93005; 93308; 93320; 96365; 99152; A7015; C1729; C1750; C1769; C1892; C1894; G0480; J0690; J0881; J1100; J1580; J1630; J2001; J2060; J2248; J2250; J2405; J2543; J2710; J3010; J3370; J3490; J7040; J7050; Q9966; Q9967; 99285-25; J7030

== ENCOUNTER 2018-10-06 11:46 | Inpatient (IN) | payer OTHER ==
[~2018-10-06] VITALS: Ht 172.7 cm; Wt 60.3 kg
[~2018-10-06 11:46] MED LIST changes: +CIPR250T30 PO; +LISI10TA2 PO; +METO-239 PO
[2018-10-06 12:40] LABS: BASO # 0.1 x10^3/uL (0.0-0.2); BASO % 2 % (0-3); EOS # 0.8 x10^3/uL (0.0-0.7); EOS % 9 % (0-3); HEMATOCRIT 32.1 % (39.0-53.0); HEMOGLOBIN 10.2 g/dL (13.0-17.5); LYMPH # 0.9 x10^3/uL (1.0-4.8); LYMPH % 10 % (24-48); MEAN CORPUSCULAR HEMOGLOBIN 29 pg (25-35); MEAN CORPUSCULAR HGB CONC 32 g/dL (31-37); MEAN CORPUSCULAR VOLUME 91 fL (79-100); MONO # 0.6 x10^3/uL (0.0-1.1); MONO % 7 % (0-9); NEUT # 6.3 x10^3uL (1.8-7.7); NEUT % 72 % (31-73); PLATELET COUNT 299 x10^3/uL (140-400); RED BLOOD COUNT 3.52 x10^6/uL (4.30-5.70); RED CELL DISTRIBUTION WIDTH 20.7 % (11.5-14.5); WHITE BLOOD COUNT 8.7 x10^3/uL (4.0-11.0)
[2018-10-06 12:48] LABS: CALCIUM 8.7 mg/dL (8.5-10.1); CREATININE 5.6 mg/dL (0.7-1.3); GFR 10.7
[2018-10-06 12:52] LABS: PROTHROMBIN TIME PATIENT 13.4 SEC (11.7-14.0)
[2018-10-06 12:58] LABS: ALBUMIN 2.7 g/dL (3.4-5.0); ALBUMIN/GLOBULIN RATIO 0.5 (1.0-1.7); MAGNESIUM 1.4 mg/dL (1.8-2.4); TOTAL BILIRUBIN 0.3 mg/dL (0.2-1.0); TOTAL PROTEIN 8.4 g/dL (6.4-8.2)
[2018-10-06 12:59] LABS: POTASSIUM 4.7 mmol/L (3.5-5.1)
[2018-10-06] MEDS ORDERED: FUROSEMIDE 100 MG/10 ML VIAL. IVP ONE (13:00)
[2018-10-06] MEDS ORDERED: VANCOMYCIN PER PHARMACY MC PRN (13:00)
[2018-10-06] MEDS ORDERED: PIP/TAZO PER PHARMACY MC PRN (13:00)
--- NOTE | 2018-10-06 13:13 | RAD ---
AP chest. HISTORY: Short of breath AP view was taken of the chest. Comparison is made with a study from September 15. Heart is enlarged. Dialysis catheter is unchanged. There are bilateral infiltrates. There is a right pleural effusion. Pneumonia is possible, pulmonary edema is possible. IMPRESSION: 1. Development of bilateral infiltrates or pulmonary edema. 2. Right pleural effusion. Electronically signed by: Mango Hernandez MD (10/06/2018 1:10 PM) [facility]
[2018-10-06] MEDS ORDERED: PIPERACILLIN/TAZOBACTAM 2.25 GM in IV NORMAL SALINE 50ML 50 ML IV ONE (13:15)
--- NOTE | 2018-10-06 13:16 | PHYS DOC ---
Past Medical History Past Medical History: COPD, Pneumonia, Renal Failure, Other Additional Past Medical Histor: INCONTINENCE Past Surgical History: Other Additional Past Surgical Histo: Dialysis cath right chest, LEFT KIDNEY STENT, SUPRAPUBIC CATH Alcohol Use: None Drug Use: None Adult General Chief Complaint Chief Complaint: SHORTNESS OF BREATH HPI HPI Patient is a 53 year old male with a history of ESRD w/ //Sat Hemodialysis, COPD, Recent pericardial window placement (for pericardial effusion, 08/2018), multi day hospital stay (mid august, and d/c on 09/21/2018) for pneumonia/acute on chronic diastolic and systolic heart failure(EF 35%)/ bacteremia (gram positive and negative), presents w/ SOA starting at 1045 am today. Pt reports he has not gone to HD today. His SOA is worsened by laying flat, and if he lies flat it causes him to cough. He reports chronic HOLLAND but notes that he has "never experienced," SOA like this. During his last hospital stay the pt states he lost a lot of weight, and ever since he was discharged on 09/21/18, he has "been eating a ton, anything I can get." He denies CP or palpitations. 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 Review of Systems Review of Systems Constitutional: Denies fever or chills Eyes: Denies change in visual acuity, redness, or eye pain HENT: Denies nasal congestion or sore throat Respiratory: Admits shortness of breath, cough if lying flat Cardiovascular: No additional information not addressed in HPI GI: Denies abdominal pain, nausea, vomiting, bloody stools or diarrhea : Denies dysuria or hematuria. Reports making urine, has suprapubic catheter in place. Musculoskeletal: Denies back pain or joint pain Integument: Denies rash or skin lesions Neurologic: Denies headache, focal weakness or sensory changes All other systems were reviewed and found to be within normal limits, except as documented in this note. Current Medications Current Medications Current Medications Medications (Trade) Dose Ordered Sig/Kevin Start Time Stop Time Status Last Admin Dose Admin Furosemide (Lasix) 60 mg 1X ONCE 10/06/18 13:00 10/06/18 13:04 DC 10/06/18 13:19 60 MG Piperacillin Sod/ Tazobactam Sod (Zosyn Per Pharmacy) 1 each PRN DAILY PRN 10/06/18 13:00 UNV Piperacillin Sod/ Tazobactam Sod 2.25 gm/Sodium Chloride 50 ml @ 100 mls/hr ONCE ONCE 10/06/18 13:15 10/06/18 13:44 DC 10/06/18 13:19 100 MLS/HR Vancomycin HCl (Vanco Per Pharmacy) 1 each PRN DAILY PRN 10/06/18 13:00 UNV Vancomycin HCl 1.5 gm/Sodium Chloride 500 ml @ 250 mls/hr 1X ONCE 10/06/18 13:45 10/06/18 15:44 Allergies Allergies Allergies Coded Allergies Type Severity Reaction Last Updated Verified No Known Drug Allergies 08/14/18 No Physical Exam Physical Exam Constitutional: toxic appearance. HENT: Normocephalic, atraumatic, bilateral external ears normal, oropharynx moist, no oral exudates, nose normal. Eyes: PERRLA, EOMI, conjunctiva normal, no discharge. Cardiovascular:Heart rate regular, S3 appreciated on auscultation. Diastolic murmur (+2/6) appreciated on auscultation at the Left midclavicular line Lungs & Thorax: Diffuse rales appreciated on auscultation, present in all lung payne. Abdomen: Bowel sounds normal, soft, no tenderness, no masses, no pulsatile masses. Back: No tenderness, no CVA tenderness. Extremities: No tenderness, no cyanosis, no clubbing, ROM intact, no edema. Neurologic: Alert and oriented X 3, normal motor function, normal sensory function, no focal deficits noted. Psychologic: Affect normal, judgement normal, mood normal. Current Patient Data Vital Signs Vital Signs Date Time Temp Pulse Resp B/P (MAP) Pulse Ox O2 Delivery O2 Flow Rate FiO2 10/06/18 12:15 97.9 107 32 138/79 (98) 95 Room Air 97.9 Lab Values Laboratory Tests Test 10/06/18 12:20 White Blood Count 8.7 x10^3/uL (4.0-11.0) Red Blood Count 3.52 x10^6/uL (4.30-5.70) L Hemoglobin 10.2 g/dL (13.0-17.5) L Hematocrit 32.1 % (39.0-53.0) L Mean Corpuscular Volume 91 fL (79-100) Mean Corpuscular Hemoglobin 29 pg (25-35) Mean Corpuscular Hemoglobin Concent 32 g/dL (31-37) Red Cell Distribution Width 20.7 % (11.5-14.5) H Platelet Count 299 x10^3/uL (140-400) Neutrophils (%) (Auto) 72 % (31-73) Lymphocytes (%) (Auto) 10 % (24-48) L Monocytes (%) (Auto) 7 % (0-9) Eosinophils (%) (Auto) 9 % (0-3) H Basophils (%) (Auto) 2 % (0-3) Neutrophils # (Auto) 6.3 x10^3uL (1.8-7.7) Lymphocytes # (Auto) 0.9 x10^3/uL (1.0-4.8) L Monocytes # (Auto) 0.6 x10^3/uL (0.0-1.1) Eosinophils # (Auto) 0.8 x10^3/uL (0.0-0.7) H Basophils # (Auto) 0.1 x10^3/uL (0.0-0.2) Platelet Estimate Pending Prothrombin Time 13.4 SEC (11.7-14.0) Prothrombin Time INR 1.1 (0.8-1.1) Sodium Level 137 mmol/L (136-145) Potassium Level 4.7 mmol/L (3.5-5.1) Chloride Level 101 mmol/L (98-107) Carbon Dioxide Level 23 mmol/L (21-32) Anion Gap 13 (6-14) Blood Urea Nitrogen 54 mg/dL (8-26) H Creatinine 5.6 mg/dL (0.7-1.3) H Estimated GFR (Cockcroft-Gault) 10.7 BUN/Creatinine Ratio 10 (6-20) Glucose Level 96 mg/dL (70-99) Lactic Acid Level 0.7 mmol/L (0.4-2.0) Calcium Level 8.7 mg/dL (8.5-10.1) Magnesium Level 1.4 mg/dL (1.8-2.4) L Total Bilirubin 0.3 mg/dL (0.2-1.0) Aspartate Amino Transferase (AST) 124 U/L (15-37) H Alanine Aminotransferase (ALT) 119 U/L (16-63) H Alkaline Phosphatase 142 U/L (46-116) H Troponin I Quantitative < 0.017 ng/mL (0.000-0.055) XJ-Tgr-Q-Type Natriuretic Peptide > 80999 pg/mL (0-124) H Total Protein 8.4 g/dL (6.4-8.2) H Albumin 2.7 g/dL (3.4-5.0) L Albumin/Globulin Ratio 0.5 (1.0-1.7) L Laboratory Tests 10/06/18 12:20 Laboratory Tests 10/06/18 12:20 EKG EKG [] Interpretation Time: Sinus tach rate 105 nonspecific lateral changes no STEMI intervals normal interpreted by me time of encounter Radiology/Procedures Radiology/Procedures [AP chest. HISTORY: Short of breath AP view was taken of the chest. Comparison is made with a study from September 15. Heart is enlarged. Dialysis catheter is unchanged. There are bilateral infiltrates. There is a right pleural effusion. Pneumonia is possible, pulmonary edema is possible. IMPRESSION: 1. Development of bilateral infiltrates or pulmonary edema. 2. Right pleural effusion. Electronically signed by: Mango Hernandez MD (10/06/2018 1:10 PM) [facility] ] Course & Med Decision Making Course & Med Decision Making 53 yo male who missed hemodialysis today with a history of ESRD, diastolic/ systolic HF, COPD, hospitalization 16 days ago for bacteremia/pneumonia/ pericardial effusion, presents w/ new onset SOB starting at 1045 am today. His SOB is worsened when lying flat. Rales heard in all lung payne on auscultation. Pt is tachycardic and tachypneic. O2 sat is 95% on room air. Pt is able to make urine still, has suprapubic catheter in place. Ddx Volume Overload, HF exacerbation, pulmonary edema Pneumonia Pericardial effusion Workup CXR, 2 blood cultures, lactic acid, CBC, CMP, UA BNP ABX's Lasix Final plan: I did discuss with Dr. Ayers briefly over the phone he knows this patient from before the pericardial effusion would be highly unlikely to reaccumulate he would recommend dialysis for now they can consult as needed after dialysis if the patient is still having symptoms. Pages sent out to [facility] waiting a callback. Discussed with Dr. huertas will admit for fluid overload dialysis and further evaluation and management. I did give the patient antibiotics in the emergency room as pneumonia is on the differential and the patient does have a history of bacteremia although I think based on the BNP and the chest x-ray as well as his symptoms of orthopnea that pulmonary edema is much more likely. Dragon Disclaimer Dragon Disclaimer This electronic medical record was generated, in whole or in part, using a voice recognition dictation system. Departure Departure Impression: Primary Impression: Dyspnea Additional Impression: End-stage renal disease on hemodialysis Disposition: ADMITTED INPATIENT Admitting Physician: Ophelia Huertas Condition: STABLE Referrals: NO PCP (PCP) Problem Qualifiers BRITNI AGUILAR MD Oct 06, 2018 13:16
[2018-10-06] MEDS ORDERED: VANCOMYCIN 1.5 GM in IV NORMAL SALINE 500ML BAG 500 ML IV ONE (13:45)
[2018-10-06 14:00] VITALS: BP 137/82
--- NOTE | 2018-10-06 15:00 | NUR ---
The patient, FELICE GROVE, 53 y/o, M admitted by BRAEDEN ADDISON MD, was given written information regarding hospital policies, unit procedures and contact persons. Valuables were checked and patient settled into room. Will continue to monitor and care for according to poc.
[2018-10-06] MEDS ORDERED: IV NORMAL SALINE 1000ML BAG 1,000 ML IV PRN ×2 (15:15)
[2018-10-06] MEDS ORDERED: DIALYSIS PATIENT. MC PRN ×2 (15:15)
[2018-10-06] MEDS ORDERED: 0.9 % SODIUM CHLORIDE 10 ML DISP.SYRIN. IV PRN ×2 (15:15)
[2018-10-06 15:24] LABS: ANISOCYTOSIS MOD; PLT ESTIMATE ADEQUATE (ADEQUATE); POLYCHROMASIA SLIGHT
--- NOTE | 2018-10-06 15:28 | PDOC1 ---
History and Physical Date of Admission Date of Admission DATE: 10/06/18 TIME: 15:28 Identification/Chief Complaint Chief Complaint acutely short of breath Source Source: Chart review, Patient History of Present Illness History of Present Illness Mr. Dowling, is a 53 year old male, admit from ER, taken to HD urgently for acute shortness of breath. Marked orthopnea today, and Sudden dyspnea when he woke up, no change in meds, no change in diet, he has been trying to eat more as he lost a lot of weight when he was hospitalized here a few weeks ago, on 3.1. He has been coughing, no sputum He has ESRD w/ //Sat Hemodialysis, COPD, Recent pericardial window placement (for pericardial effusion, 08/2018), for pneumonia/acute on chronic diastolic and systolic heart failure(EF 35%)/bacteremia (gram positive and negative), presents w/ SOA starting at 1045 am today. g Past Medical History Cardiovascular: No pertinent hx, HTN Pulmonary: Bronchitis, COPD, Other CENTRAL NERVOUS SYSTEM: Other GI: No pertinent hx, GI bleed Heme/Onc: Anemia NOS Hepatobiliary: No pertinent hx Psych: No pertinent hx Rheumatologic: No pertinent hx Infectious disease: Other Renal/: Chronic renal insuff, Chronic renal failure, UTI, Other Endocrine: No pertinent hx, Hyperparathyroidism Past Surgical History Past Surgical History: Other Family History Family History: Coronary Artery Disease Social History Smoke: No ALCOHOL: none Drugs: None Current Problem List Problem List Problems Medical Problems: (1) Dyspnea Status: Acute Current Medications Current Medications Current Medications Vancomycin HCl (Vanco Per Pharmacy) 1 each PRN DAILY PRN MC SEE COMMENTS; Start 10/06/18 at 13:00 Piperacillin Sod/ Tazobactam Sod (Zosyn Per Pharmacy) 1 each PRN DAILY PRN MC SEE COMMENTS; Start 10/06/18 at 13:00 Furosemide (Lasix) 60 mg 1X ONCE IVP Last administered on 10/06/18at 13:19; Start 10/06/18 at 13:00; Stop 10/06/18 at 13:04; Status DC Vancomycin HCl 1.5 gm/Sodium Chloride 500 ml @ 250 mls/hr 1X ONCE IV Last administered on 10/06/18at 14:22; Start 10/06/18 at 13:45; Stop 10/06/18 at 15:44 Piperacillin Sod/ Tazobactam Sod 2.25 gm/Sodium Chloride 50 ml @ 100 mls/hr ONCE ONCE IV Last administered on 10/06/18at 13:19; Start 10/06/18 at 13:15; Stop 10/06/18 at 13:44; Status DC Piperacillin Sod/ Tazobactam Sod 2.25 gm/Sodium Chloride 50 ml @ 100 mls/hr Q8HRS IV ; Start 10/06/18 at 22:00 Sodium Chloride 1,000 ml @ 1,000 mls/hr Q1H PRN IV hypotension; Start 10/06/18 at 15:15; Stop 10/06/18 at 21:14 Sodium Chloride (Normal Saline Flush) 10 ml 1X PRN PRN IV AP catheter pack; Start 10/06/18 at 15:15; Stop 10/07/18 at 15:14 Sodium Chloride (Normal Saline Flush) 10 ml 1X PRN PRN IV JANITORIAL TECH catheter pack; Start 10/06/18 at 15:15; Stop 10/07/18 at 15:14 Sodium Chloride 1,000 ml @ 400 mls/hr Q2H30M PRN IV PATENCY; Start 10/06/18 at 15:15; Stop 10/07/18 at 03:14 Info (PHARMACY MONITORING -- do not chart) 1 each PRN DAILY PRN MC SEE COMMENTS ; Start 10/06/18 at 15:15 Info (PHARMACY MONITORING -- do not chart) 1 each PRN DAILY PRN MC SEE COMMENTS ; Start 10/06/18 at 15:15; Status UNV Active Scripts Active Lisinopril 10 Mg Tablet 10 Mg PO DAILY 30 Days Metoprolol Succinate ( Xl ) (Metoprolol Succinate) 25 Mg Tab.er.24h 25 Mg PO DAILY 30 Days [Pantoprazole] 40 MG Tablet.dr 40 Mg PO BIDAC 30 Days [Darbepoetin Napoleon In Polysorbat] 60 MCG/0.3 ML Disp.syrin 60 Mcg SQ WEEKLYHS 7 Days Poly-Iron (Iron Polysaccharides Complex) 150 Mg Capsule 150 Mg PO BID66 30 Days Reported Cipro (Ciprofloxacin Hcl) 250 Mg Tablet 3 Tab PO DAILY Allergies Allergies: Coded Allergies: No Known Drug Allergies (Unverified , 08/14/18) ROS General: YES: Chills, Malaise PSYCHOLOGICAL ROS: No: Anxiety, Behavioral Disorder, Concentration difficultie , Decreased libido, Depression, Disorientation, Hallucinations, Hostility, Irritablity, Memory difficulties, Mood Swings, Obsessive thoughts, Physical abuse, Sexual abuse, Sleep disturbances, Suicidal ideation, Other Eyes: No Blurry vision, No Decreased vision, No Double vision, No Dry eyes, No Excessive tearing, No Eye Pain, No Itchy Eyes, No Loss of vision, No Photophobia , No Scotomata, No Uses contacts, No Uses glasses, No Other HEENT: No: Heacaches, Visual Changes, Hearing change, Nasal congestion, Nasal discharge, Oral lesions, Sinus pain, Sore Throat, Epistaxis, Sneezing, Snoring, Tinnitus, Vertigo, Vocal changes, Other Respiratory: YES: Shortness of breath, SOB with excertion, Tachypnea; No: Cough, Hemoptysis, Orthopnea, Pleuritic Pain, Sputum Changes, Stridor, Wheezing, Other Cardiovascular: No Chest Pain, No Palpitations, No Orthopnea, No Paroxysmal Noc. Dyspnea, No Edema, No Lt Headedness, No Other Gastrointestinal: No Nausea, No Vomiting, No Abdominal Pain, No Diarrhea, No Constipation, No Melena, No Hematochezia, No Other Genitourinary: No Dysuria, No Frequency, No Incontinence, No Hematuria, No Retention, No Discharge, No Urgency, No Pain, No Flank Pain, No Other, No , No , No , No , No , No , No Musculoskeletal: No Gait Disturbance, No Joint Pain, No Joint Stiffness, No Joint Swelling, No Muscle Pain, No Muscular Weakness, No Pain In:, No Swelling In:, No Other Neurological: No Behavorial Changes, No Bowel/Bladder ControlChng, No Confusion , No Dizziness, No Gait Disturbance, No Headaches, No Impaired Coord/balance, No Memory Loss, No Numbness/Tingling, No Seizures, No Speech Problems, No Tremors, No Visual Changes, No Weakness, No Other Skin: Yes Dry Skin; No Eczema, No Hair Changes, No Lumps, No Mole Changes, No Mottling, No Nail Changes, No Pruritus, No Rash, No Skin Lesion Changes, No Other, No Acne Physical Exam General: Alert, mild distress, moderate distress HEENT: EOMI, Mucous membr. moist/pink Lungs: Clear to auscultation Heart: RRR, no thrills, no rubs, other (distant sounds, no murmur) Abdomen: Normal bowel sounds, Soft Extremities: No cyanosis, No edema, Normal pulses Skin: No rashes, No breakdown, No significant lesion Neuro: Normal speech, Sensation intact, Cranial nerves 3-12 NL Psych/Mental Status: Mood NL Vitals Vitals Vital Signs Date Time Temp Pulse Resp B/P (MAP) Pulse Ox O2 Delivery O2 Flow Rate FiO2 10/06/18 12:15 97.9 107 32 138/79 (98) 95 Room Air 97.9 Labs Labs Laboratory Tests Test 10/06/18 12:20 White Blood Count 8.7 x10^3/uL (4.0-11.0) Red Blood Count 3.52 x10^6/uL (4.30-5.70) Hemoglobin 10.2 g/dL (13.0-17.5) Hematocrit 32.1 % (39.0-53.0) Mean Corpuscular Volume 91 fL (79-100) Mean Corpuscular Hemoglobin 29 pg (25-35) Mean Corpuscular Hemoglobin Concent 32 g/dL (31-37) Red Cell Distribution Width 20.7 % (11.5-14.5) Platelet Count 299 x10^3/uL (140-400) Neutrophils (%) (Auto) 72 % (31-73) Lymphocytes (%) (Auto) 10 % (24-48) Monocytes (%) (Auto) 7 % (0-9) Eosinophils (%) (Auto) 9 % (0-3) Basophils (%) (Auto) 2 % (0-3) Neutrophils # (Auto) 6.3 x10^3uL (1.8-7.7) Lymphocytes # (Auto) 0.9 x10^3/uL (1.0-4.8) Monocytes # (Auto) 0.6 x10^3/uL (0.0-1.1) Eosinophils # (Auto) 0.8 x10^3/uL (0.0-0.7) Basophils # (Auto) 0.1 x10^3/uL (0.0-0.2) Platelet Estimate Adequate (ADEQUATE) Large Platelets Few Giant Platelets Occ Polychromasia Slight Anisocytosis Mod Macrocytosis Slight Prothrombin Time 13.4 SEC (11.7-14.0) Prothromb Time International Ratio 1.1 (0.8-1.1) Sodium Level 137 mmol/L (136-145) Potassium Level 4.7 mmol/L (3.5-5.1) Chloride Level 101 mmol/L (98-107) Carbon Dioxide Level 23 mmol/L (21-32) Anion Gap 13 (6-14) Blood Urea Nitrogen 54 mg/dL (8-26) Creatinine 5.6 mg/dL (0.7-1.3) Estimated GFR (Cockcroft-Gault) 10.7 BUN/Creatinine Ratio 10 (6-20) Glucose Level 96 mg/dL (70-99) Lactic Acid Level 0.7 mmol/L (0.4-2.0) Calcium Level 8.7 mg/dL (8.5-10.1) Magnesium Level 1.4 mg/dL (1.8-2.4) Total Bilirubin 0.3 mg/dL (0.2-1.0) Aspartate Amino Transf (AST/SGOT) 124 U/L (15-37) Alanine Aminotransferase (ALT/SGPT) 119 U/L (16-63) Alkaline Phosphatase 142 U/L (46-116) Troponin I Quantitative < 0.017 ng/mL (0.000-0.055) TI-Ank-D-Type Natriuretic Peptide > 50259 pg/mL (0-124) Total Protein 8.4 g/dL (6.4-8.2) Albumin 2.7 g/dL (3.4-5.0) Albumin/Globulin Ratio 0.5 (1.0-1.7) Laboratory Tests Test 10/06/18 12:20 White Blood Count 8.7 x10^3/uL (4.0-11.0) Red Blood Count 3.52 x10^6/uL (4.30-5.70) Hemoglobin 10.2 g/dL (13.0-17.5) Hematocrit 32.1 % (39.0-53.0) Mean Corpuscular Volume 91 fL (79-100) Mean Corpuscular Hemoglobin 29 pg (25-35) Mean Corpuscular Hemoglobin Concent 32 g/dL (31-37) Red Cell Distribution Width 20.7 % (11.5-14.5) Platelet Count 299 x10^3/uL (140-400) Neutrophils (%) (Auto) 72 % (31-73) Lymphocytes (%) (Auto) 10 % (24-48) Monocytes (%) (Auto) 7 % (0-9) Eosinophils (%) (Auto) 9 % (0-3) Basophils (%) (Auto) 2 % (0-3) Neutrophils # (Auto) 6.3 x10^3uL (1.8-7.7) Lymphocytes # (Auto) 0.9 x10^3/uL (1.0-4.8) Monocytes # (Auto) 0.6 x10^3/uL (0.0-1.1) Eosinophils # (Auto) 0.8 x10^3/uL (0.0-0.7) Basophils # (Auto) 0.1 x10^3/uL (0.0-0.2) Platelet Estimate Adequate (ADEQUATE) Large Platelets Few Giant Platelets Occ Polychromasia Slight Anisocytosis Mod Macrocytosis Slight Prothrombin Time 13.4 SEC (11.7-14.0) Prothromb Time International Ratio 1.1 (0.8-1.1) Sodium Level 137 mmol/L (136-145) Potassium Level 4.7 mmol/L (3.5-5.1) Chloride Level 101 mmol/L (98-107) Carbon Dioxide Level 23 mmol/L (21-32) Anion Gap 13 (6-14) Blood Urea Nitrogen 54 mg/dL (8-26) Creatinine 5.6 mg/dL (0.7-1.3) Estimated GFR (Cockcroft-Gault) 10.7 BUN/Creatinine Ratio 10 (6-20) Glucose Level 96 mg/dL (70-99) Lactic Acid Level 0.7 mmol/L (0.4-2.0) Calcium Level 8.7 mg/dL (8.5-10.1) Magnesium Level 1.4 mg/dL (1.8-2.4) Total Bilirubin 0.3 mg/dL (0.2-1.0) Aspartate Amino Transf (AST/SGOT) 124 U/L (15-37) Alanine Aminotransferase (ALT/SGPT) 119 U/L (16-63) Alkaline Phosphatase 142 U/L (46-116) Troponin I Quantitative < 0.017 ng/mL (0.000-0.055) AK-Lfo-Z-Type Natriuretic Peptide > 97817 pg/mL (0-124) Total Protein 8.4 g/dL (6.4-8.2) Albumin 2.7 g/dL (3.4-5.0) Albumin/Globulin Ratio 0.5 (1.0-1.7) VTE Prophylaxis Ordered VTE Prophylaxis Devices: No VTE Pharmacological Prophylaxi: Yes Assessment/Plan Assessment/Plan acute combined CHF pleural effusion SIRS pulm infiltrate, recent admit, treatment for HCAP started recent pericardial window, CV consult CT surg consult, as they have seen him recently ESRD, HD today mod/severe malnutrition anemia of ESRD transamintits admit BRAEDEN ADDISON MD Oct 06, 2018 15:28
--- NOTE | 2018-10-06 16:02 | NUR ---
Pharmacy Vancomycin Dosing Note S:Consulted to monitor and dose vancomycin started 10/06/18. O:FELICE GROVE is a 53 year old M with Pneumonia . Height: 5 feet, 8 inches Weight: 63.036475 kg [place] Body Weight: 68.40 Adjusted Body Weight: 66.44 Dosing Weight: Actual Other Antibiotics: zosyn LABS: Last BUN: 54 Last Creatinine: 5.6 Creatinine Clearance: HD TUTHSA mL/min Last WBC: 8.7 Last Procalcitonin: Tmax (past 24 hours): 97.9 Microbiology: I/O: Drug Levels: Last level: on at Last dose given 10/06/18 at 1422 Vancomycin Dosing: Loading Dose: 1500 mg x1 Dosing Weight: Actual Target Trough: 15-20 A: Based on: Body weight and dialysis schedule P: 1. Give Vancomycin 1500 mg IV One Time 2. Follow up Random level on 10/07/18 at 0500 3. Pharmacy will continue to monitor, follow and adjust therapy as needed. NOEMI WOODS [facility], 10/06/18 [id number]
--- NOTE | 2018-10-06 17:04 | EKG ---
[facility] [address] [place] [id number] Test Date: 2018-10-06 Test Time: 12:30:47 Pat Name: FELICE GROVE Department: Room: 504 1 Gender: M [employer]ist: : 1965 Requested By: BRITNI AGUILAR Order Number: [id number] Reading MD: Inocente Ayers MD Measurements Intervals [place] Rate: 105 P: 26 SD: 136 QRS: 11 QRSD: 84 T: 109 QT: 356 QTc: 475 Interpretive Statements SINUS TACHYCARDIA LVH Electronically Signed On 10-07-2018 12:27:04 CDT by Inocente Ayers MD
[2018-10-06 19:00] VITALS: BP 134/77
[2018-10-06] MEDS: IPRATRPIUM/ALBUTEROL 0.5/2.5MG 3 ML NEBU. NEB SCH (20:38)
[2018-10-06] MEDS: LACTOBACILLUS RHAMNOSUS GG 1 CAPSULE. PO SCH (20:57)
[2018-10-06] MEDS: HEPARIN for SUB-Q USE 5,000 UNIT/ML VIAL. SQ SCH (21:01)
[2018-10-06] MEDS: PIPERACILLIN/TAZOBACTAM 2.25 GM in IV NORMAL SALINE 50ML 50 ML IV SCH (21:46)
[2018-10-06 23:00] VITALS: BP 136/72
[2018-10-07 03:00] VITALS: BP 127/75
[2018-10-07 03:14] LABS: BASO # 0.1 x10^3/uL (0.0-0.2); BASO % 1 % (0-3); EOS # 0.7 x10^3/uL (0.0-0.7); EOS % 8 % (0-3); HEMATOCRIT 32.3 % (39.0-53.0); HEMOGLOBIN 10.2 g/dL (13.0-17.5); LYMPH # 0.8 x10^3/uL (1.0-4.8); LYMPH % 9 % (24-48); MEAN CORPUSCULAR HEMOGLOBIN 29 pg (25-35); MEAN CORPUSCULAR HGB CONC 31 g/dL (31-37); MEAN CORPUSCULAR VOLUME 91 fL (79-100); MONO # 0.7 x10^3/uL (0.0-1.1); MONO % 8 % (0-9); NEUT # 6.7 x10^3uL (1.8-7.7); NEUT % 74 % (31-73); PLATELET COUNT 283 x10^3/uL (140-400); RED BLOOD COUNT 3.57 x10^6/uL (4.30-5.70); RED CELL DISTRIBUTION WIDTH 20.8 % (11.5-14.5); WHITE BLOOD COUNT 9.1 x10^3/uL (4.0-11.0)
[2018-10-07 03:40] LABS: ALBUMIN 2.6 g/dL (3.4-5.0); ALBUMIN/GLOBULIN RATIO 0.5 (1.0-1.7); CREATININE 4.1 mg/dL (0.7-1.3); GFR 15.3; POTASSIUM 4.3 mmol/L (3.5-5.1); TOTAL BILIRUBIN 0.7 mg/dL (0.2-1.0); TOTAL PROTEIN 8.2 g/dL (6.4-8.2)
[2018-10-07] MEDS ORDERED: VANCOMYCIN RANDOM LEVEL. MC ONE (05:00)
[2018-10-07] MEDS: PIPERACILLIN/TAZOBACTAM 2.25 GM in IV NORMAL SALINE 50ML 50 ML IV SCH ×2 (06:01→14:00)
[2018-10-07 07:00] VITALS: BP 140/77
--- NOTE | 2018-10-07 07:44 | PDOC ---
Provider Note Provider Note [id number] dyspnea suspect 2/2 to vo, acute sys diastolic chf abnl cxr cxr today SHAMEKA YOON MD Oct 07, 2018 07:44
[2018-10-07 07:46] LABS: INFLUENZA A PATIENT NEGATIVE (NEGATIVE); INFLUENZA B PATIENT NEGATIVE (NEGATIVE)
[2018-10-07] MEDS: IPRATRPIUM/ALBUTEROL 0.5/2.5MG 3 ML NEBU. NEB SCH ×2 (07:50→11:30)
--- NOTE | 2018-10-07 08:23 | RAD ---
Examination: CT chest high-resolution without contrast HISTORY: History of pleural effusion, infiltrate. COMPARISON: 09/16/2018 TECHNIQUE: Axial CT images of the chest were performed with high-resolution images. Supine and prone imaging was performed in axial. Coronal and sagittal reformats are performed. Exposure: One or more of the following individualized dose reduction techniques were utilized for this examination: 1. Automated exposure control 2. Adjustment of the mA and/or kV according to patient size 3. Use of iterative reconstruction technique FINDINGS: Examination limited due to lack of IV contrast. Right-sided dialysis catheter is identified. Mild cardiomegaly. Coronary artery calcification is identified. Diffuse patchy groundglass airspace opacities identified in the bilateral lungs with interval decrease in trace bilateral pleural effusions. Trace left pleural effusion tiny foci of air identified in the left pleural effusion decreased since prior exam. Unchanged small left pleural effusion identified along the fissure. Left lung base airspace opacity likely atelectasis or infiltrate. No evidence of traction bronchiectatic changes or honeycombing changes identified. The visualized noncontrasted liver, spleen, adrenals grossly appears unremarkable/ Thinning of the bilateral kidneys with the mild perinephric fat stranding similar to prior exam. Mild degenerative changes thoracic spine. IMPRESSION: 1. Interval increase in diffuse patchy airspace opacities identified in the bilateral lungs likely atelectasis or infiltrates or edema. 2. Trace bilateral pleural effusions. Electronically signed by: Timo Thapa MD (10/07/2018 8:20 AM) [facility]
[2018-10-07] MEDS: LACTOBACILLUS RHAMNOSUS GG 1 CAPSULE. PO SCH (08:35)
--- NOTE | 2018-10-07 08:35 | CONS ---
DATE OF CONSULTATION: 10/07/2018 REASON FOR CONSULTATION: I was asked to see this 53-year-old gentleman for shortness of breath. HISTORY OF PRESENT ILLNESS: He does have history of [id number] smoking, stopped smoking about a year ago. He has not been diagnosed with COPD. He has end-stage renal disease and is on hemodialysis. He had a recent sepsis, bacteremia, pericardial effusion, status post pericardial window. He started to have increased shortness of breath yesterday in the morning. His dialysis time was in the afternoon. He presented to the Emergency Room. He has been eating a lot including salty food. He had emergent dialysis. He states that his shortness of breath resolved. He does have occasional cough with no sputum production. He denies chest pain, runny nose, fever or chills. He has a suprapubic catheter in place. PAST MEDICAL HISTORY: Systolic and diastolic CHF, history of pericardial effusion, status post window. History of recent pneumonia. End-stage renal disease, on hemodialysis. COPD per chart, although he denies. ALLERGIES: No known drug allergies. MEDICATIONS: Currently, he is on Zosyn, heparin 5000 units b.i.d. and DuoNeb. SOCIAL HISTORY: History of [id number] smoking, stopped smoking about a year ago. FAMILY HISTORY: There is no history of lung disease. REVIEW OF SYSTEMS: As mentioned as above, other systems otherwise negative. PHYSICAL EXAMINATION: GENERAL: This is a chronically ill-appearing gentleman. VITAL SIGNS: His O2 saturation is 94%, respiratory rate 18, heart rate 100, blood pressure 127/75, temperature 98.4. HEENT: Normocephalic, atraumatic. Pupils equal, round, reactive to light. Throat is clear. Nose is clear. NECK: There is no JVD, lymphadenopathy or thyromegaly. CARDIOVASCULAR: Regular rate and rhythm. PMI is nondisplaced. CHEST: Inspection is normal. LUNGS: There are a few bibasilar crackles, dullness at the right base. ABDOMEN: Soft. Bowel sounds are good. There is no mass. EXTREMITIES: There is no edema. LYMPHATICS: There is no lymphadenopathy. SKIN: Pale. NEUROLOGIC: Alert and oriented. LABORATORY DATA: I reviewed the following lab data: Chest x-ray does show development of bilateral infiltrate, right pleural effusion. WBC 9.1, hemoglobin 10.2, platelets 283. Sodium 137, potassium 4.3, chloride 100, CO2 of 28, glucose 117, BUN 28, creatinine 4.1. BNP more than 35,000. Troponin less than 0.017. Lactic acid 0.7. IMPRESSION: 1. Dyspnea. I suspect it is secondary to volume overload, acute systolic and diastolic congestive heart failure. Doubt he has pneumonia versus others. 2. Abnormal chest x-ray. 3. End-stage renal disease, on hemodialysis. 4. Chronic obstructive pulmonary disease. 5. Suprapubic catheter. PLAN AND RECOMMENDATIONS: 1. Titrate FiO2 to keep O2 saturation 92%. 2. Continue bronchodilator. 3. I will do a chest x-ray, PA and lateral, follow up infiltrate. 4. Continue not smoking. 5. Heparin for DVT prophylaxis. 6. Follow up cultures. 7. I have advised him to avoid excess salt. 8. Dialysis per Nephrology. 9. The findings and recommendations were discussed with the patient and RN. I have answered all of the patient's questions. He understood and agreed to proceed with the plan. Thank you very much for allowing me to participate in care of this very nice gentleman. SHAMEKA YOON M.D. : MARCELA/macey JOB#: [id number] / [id number]
[2018-10-07] MEDS: HEPARIN for SUB-Q USE 5,000 UNIT/ML VIAL. SQ SCH (08:38)
[2018-10-07] MEDS ORDERED: ONDANSETRON PF 4 MG/2 ML VIAL. IV PRN (09:45)
[2018-10-07] MEDS ORDERED: ACETAMINOPHEN/CODEINE 300/30MG TABLET. PO PRN (09:45)
[2018-10-07] MEDS ORDERED: guaiFENesin DM 200MG/20MG 10 ML SYRUP PO PRN (09:45)
[2018-10-07] MEDS ORDERED: ONDANSETRON ODT 4 MG TAB.RAPDIS. PO PRN (09:45)
[2018-10-07] MEDS ORDERED: ACETAMINOPHEN 500 MG TABLET PO PRN (09:45)
--- NOTE | 2018-10-07 10:14 | RAD ---
Chest, PA and Lateral: Technique: PA and lateral views of the chest were obtained. History: Follow-up infiltrate. Comparison: 10/06/2018. Findings: The cardiomediastinal silhouette grossly appears unremarkable. Patchy bilateral lung airspace opacities have slightly decreased compared to prior exam. Right-sided dialysis catheter is unchanged IMPRESSION: Improved bilateral airspace opacities likely atelectasis/edema. Electronically signed by: Timo Thapa MD (10/07/2018 10:11 AM) [facility]
[2018-10-07] MEDS ORDERED: METOPROLOL SUCC 24HR ER 25 MG TAB.ER.24H. PO SCH (10:15)
[2018-10-07] MEDS ORDERED: LISINOPRIL 10 MG TABLET PO SCH (10:30)
[2018-10-07 11:00] VITALS: BP 119/66
--- NOTE | 2018-10-07 11:43 | PDOC2 ---
CONSULT Date of Consult Date of Consult DATE: 10/07/18 TIME: 11:37 Reason for Consult Reason for Consult: SOB AND ESRD Referring Physician Referring Physician: AZAEL Identification/Chief Complaint Chief Complaint SOB Source Source: Chart review, Patient History of Present Illness Reason for Visit: THIS IS A 53 YR OLD ESRD PT WITH SOB. ESRD IS DUE TO CHRONIC BLADDER OUTLET OBSTRUCTION. HAS OP HD ON TTS. YESTERDAY WAS TOO SOB TO GO TO HIS UNIT AND SO CAME IN TO THE ER IN CHF. ALSO NOTED TO HAVE RECURRING PLEURAL EFFUSION FOR WHICH HE HAS NEEDED A THORACENTESIS IN THE PAST. RECENTLY HE ALSO NEEDED A PERICARDIAL WINDOW FOR HIS PERICARDIAL EFFUSION. LABS ARE C/W HIS ESRD STATUS Past Medical History Cardiovascular: No pertinent hx, HTN Pulmonary: Bronchitis, COPD, Other CENTRAL NERVOUS SYSTEM: Other GI: No pertinent hx, GI bleed Heme/Onc: Anemia NOS Hepatobiliary: No pertinent hx Psych: No pertinent hx Rheumatologic: No pertinent hx Infectious disease: Other Renal/: Chronic renal insuff, Chronic renal failure, UTI, Other Endocrine: No pertinent hx, Hyperparathyroidism Past Surgical History Past Surgical History HX OF TUNNELED HD CATHETER PLACEMENT Past Surgical History: Other Family History Family History: Coronary Artery Disease Social History No ALCOHOL: none Drugs: None Lives: with Family Current Problem List Problem List Problems Medical Problems: (1) Dyspnea Status: Acute Current Medications Current Medications Current Medications Vancomycin HCl (Vanco Per Pharmacy) 1 each PRN DAILY PRN MC SEE COMMENTS Last administered on 10/06/18at 16:02; Start 10/06/18 at 13:00 Piperacillin Sod/ Tazobactam Sod (Zosyn Per Pharmacy) 1 each PRN DAILY PRN MC SEE COMMENTS; Start 10/06/18 at 13:00 Furosemide (Lasix) 60 mg 1X ONCE IVP Last administered on 10/06/18at 13:19; Start 10/06/18 at 13:00; Stop 10/06/18 at 13:04; Status DC Vancomycin HCl 1.5 gm/Sodium Chloride 500 ml @ 250 mls/hr 1X ONCE IV Last administered on 10/06/18at 14:22; Start 10/06/18 at 13:45; Stop 10/06/18 at 15:44 ; Status DC Piperacillin Sod/ Tazobactam Sod 2.25 gm/Sodium Chloride 50 ml @ 100 mls/hr ONCE ONCE IV Last administered on 10/06/18at 13:19; Start 10/06/18 at 13:15; Stop 10/06/18 at 13:44; Status DC Piperacillin Sod/ Tazobactam Sod 2.25 gm/Sodium Chloride 50 ml @ 100 mls/hr Q8HRS IV Last administered on 10/07/18at 06:01; Start 10/06/18 at 22:00 Sodium Chloride 1,000 ml @ 1,000 mls/hr Q1H PRN IV hypotension; Start 10/06/18 at 15:15; Stop 10/06/18 at 21:14; Status DC Sodium Chloride (Normal Saline Flush) 10 ml 1X PRN PRN IV AP catheter pack; Start 10/06/18 at 15:15; Stop 10/07/18 at 15:14 Sodium Chloride (Normal Saline Flush) 10 ml 1X PRN PRN IV [employer] catheter pack; Start 10/06/18 at 15:15; Stop 10/07/18 at 15:14 Sodium Chloride 1,000 ml @ 400 mls/hr Q2H30M PRN IV PATENCY; Start 10/06/18 at 15:15; Stop 10/07/18 at 03:14; Status DC Info (PHARMACY MONITORING -- do not chart) 1 each PRN DAILY PRN MC SEE COMMENTS ; Start 10/06/18 at 15:15 Info (PHARMACY MONITORING -- do not chart) 1 each PRN DAILY PRN MC SEE COMMENTS ; Start 10/06/18 at 15:15; Status UNV Heparin Sodium (Porcine) (Heparin Sodium) 5,000 unit BID SQ Last administered on 10/07/18at 08:38; Start 10/06/18 at 21:00 Albuterol/ Ipratropium (Duoneb) 3 ml RTQID NEB Last administered on 10/07/18at 11:30; Start 10/06/18 at 16:00 Vancomycin HCl (Vancomycin Random Level) 1 each 1X ONCE MC Last administered on 10/07/18at 05:00; Start 10/07/18 at 05:00; Stop 10/07/18 at 05:01; Status DC Lactobacillus Rhamnosus (Culturelle) 1 cap BID PO Last administered on at 08:35; Start 10/06/18 at 21:00 Guaifenesin (Robitussin Dm) 10 ml PRN Q6HRS PRN PO COUGH; Start 10/07/18 at 09: 45 Acetaminophen (Tylenol) 500 mg PRN Q6HRS PRN PO MILD PAIN / TEMP; Start at 09:45 Acetaminophen/ Codeine Phosphate (Tylenol #3) 1 tab PRN Q6HRS PRN PO PAIN MODERATE; Start 10/07/18 at 09:45 Ondansetron HCl (Zofran) 4 mg PRN Q6HRS PRN IV NAUSEA/VOMITING; Start 10/07/18 at 09:45 Ondansetron HCl (Zofran Odt) 4 mg PRN Q6HRS PRN PO NAUSEA/VOMITING USE FIRST; Start 10/07/18 at 09:45 Lisinopril (Prinivil) 10 mg DAILY PO ; Start 10/07/18 at 10:30 Metoprolol Succinate (Toprol Xl) 25 mg DAILY PO ; Start 10/07/18 at 10:15 Polysaccharide Iron Complex (Niferex 150) 150 mg BID66 PO ; Start 10/07/18 at 18 :00 Darbepoetin Napoleon (Aranesp) 60 mcg WEEKLYHS SQ ; Start 10/11/18 at 21:00 Pantoprazole Sodium (Protonix) 40 mg BIDAC PO ; Start 10/07/18 at 16:30 Active Scripts Active Lisinopril 10 Mg Tablet 10 Mg PO DAILY 30 Days Metoprolol Succinate ( Xl ) (Metoprolol Succinate) 25 Mg Tab.er.24h 25 Mg PO DAILY 30 Days [Pantoprazole] 40 MG Tablet.dr 40 Mg PO BIDAC 30 Days [Darbepoetin Napoleon In Polysorbat] 60 MCG/0.3 ML Disp.syrin 60 Mcg SQ WEEKLYHS 7 Days Poly-Iron (Iron Polysaccharides Complex) 150 Mg Capsule 150 Mg PO BID66 30 Days Allergies Allergies: Coded Allergies: No Known Drug Allergies (Unverified , 08/14/18) ROS General: YES: Fatigue, Malaise, Appetite PSYCHOLOGICAL ROS: YES: Anxiety, Depression Eyes: Yes Decreased vision HEENT: YES: Heacaches ALLERGY AND IMMUNOLOGY: YES: Seasonal Allergies Respiratory: YES: Cough, Orthopnea, Shortness of breath Gastrointestinal: Yes Constipation Genitourinary: YES Retention Musculoskeletal: Yes Muscular Weakness Neurological: Yes Weakness Skin: Yes Dry Skin Physical Exam General: Alert, Oriented X3, Cooperative, mild distress HEENT: Atraumatic, PERRLA, EOMI, Mucous membr. moist/pink Lungs: Other (BASILAR RALES AND POOR AIRFLOW RIGHT MORE THAN LEFT) Vitals VITALS Vital Signs Date Time Temp Pulse Resp B/P (MAP) Pulse Ox O2 Delivery O2 Flow Rate FiO2 10/07/18 11:30 Room Air 10/07/18 11:00 98.9 113 18 119/66 (83) 98 98.9 Labs Labs Laboratory Tests Test 10/06/18 12:20 10/07/18 02:00 10/07/18 07:20 White Blood Count 8.7 x10^3/uL (4.0-11.0) 9.1 x10^3/uL (4.0-11.0) Red Blood Count 3.52 x10^6/uL (4.30-5.70) 3.57 x10^6/uL (4.30-5.70) Hemoglobin 10.2 g/dL (13.0-17.5) 10.2 g/dL (13.0-17.5) Hematocrit 32.1 % (39.0-53.0) 32.3 % (39.0-53.0) Mean Corpuscular Volume 91 fL (79-100) 91 fL (79-100) Mean Corpuscular Hemoglobin 29 pg (25-35) 29 pg (25-35) Mean Corpuscular Hemoglobin Concent 32 g/dL (31-37) 31 g/dL (31-37) Red Cell Distribution Width 20.7 % (11.5-14.5) 20.8 % (11.5-14.5) Platelet Count 299 x10^3/uL (140-400) 283 x10^3/uL (140-400) Neutrophils (%) (Auto) 72 % (31-73) 74 % (31-73) Lymphocytes (%) (Auto) 10 % (24-48) 9 % (24-48) Monocytes (%) (Auto) 7 % (0-9) 8 % (0-9) Eosinophils (%) (Auto) 9 % (0-3) 8 % (0-3) Basophils (%) (Auto) 2 % (0-3) 1 % (0-3) Neutrophils # (Auto) 6.3 x10^3uL (1.8-7.7) 6.7 x10^3uL (1.8-7.7) Lymphocytes # (Auto) 0.9 x10^3/uL (1.0-4.8) 0.8 x10^3/uL (1.0-4.8) Monocytes # (Auto) 0.6 x10^3/uL (0.0-1.1) 0.7 x10^3/uL (0.0-1.1) Eosinophils # (Auto) 0.8 x10^3/uL (0.0-0.7) 0.7 x10^3/uL (0.0-0.7) Basophils # (Auto) 0.1 x10^3/uL (0.0-0.2) 0.1 x10^3/uL (0.0-0.2) Platelet Estimate Adequate (ADEQUATE) Large Platelets Few Giant Platelets Occ Polychromasia Slight Anisocytosis Mod Macrocytosis Slight Prothrombin Time 13.4 SEC (11.7-14.0) Prothromb Time International Ratio 1.1 (0.8-1.1) Sodium Level 137 mmol/L (136-145) 137 mmol/L (136-145) Potassium Level 4.7 mmol/L (3.5-5.1) 4.3 mmol/L (3.5-5.1) Chloride Level 101 mmol/L (98-107) 100 mmol/L (98-107) Carbon Dioxide Level 23 mmol/L (21-32) 28 mmol/L (21-32) Anion Gap 13 (6-14) 9 (6-14) Blood Urea Nitrogen 54 mg/dL (8-26) 28 mg/dL (8-26) Creatinine 5.6 mg/dL (0.7-1.3) 4.1 mg/dL (0.7-1.3) Estimated GFR (Cockcroft-Gault) 10.7 15.3 BUN/Creatinine Ratio 10 (6-20) 7 (6-20) Glucose Level 96 mg/dL (70-99) 117 mg/dL (70-99) Lactic Acid Level 0.7 mmol/L (0.4-2.0) Calcium Level 8.7 mg/dL (8.5-10.1) 9.0 mg/dL (8.5-10.1) Magnesium Level 1.4 mg/dL (1.8-2.4) Total Bilirubin 0.3 mg/dL (0.2-1.0) 0.7 mg/dL (0.2-1.0) Aspartate Amino Transf (AST/SGOT) 124 U/L (15-37) 105 U/L (15-37) Alanine Aminotransferase (ALT/SGPT) 119 U/L (16-63) 115 U/L (16-63) Alkaline Phosphatase 142 U/L (46-116) 115 U/L (46-116) Troponin I Quantitative < 0.017 ng/mL (0.000-0.055) HK-Uho-O-Type Natriuretic Peptide > 47801 pg/mL (0-124) Total Protein 8.4 g/dL (6.4-8.2) 8.2 g/dL (6.4-8.2) Albumin 2.7 g/dL (3.4-5.0) 2.6 g/dL (3.4-5.0) Albumin/Globulin Ratio 0.5 (1.0-1.7) 0.5 (1.0-1.7) Random Vancomycin Level 23.9 mcg/mL Influenza Type A Antigen Negative (NEGATIVE) Influenza Type B Antigen Negative (NEGATIVE) Laboratory Tests Test 10/06/18 12:20 10/07/18 02:00 10/07/18 07:20 White Blood Count 8.7 x10^3/uL (4.0-11.0) 9.1 x10^3/uL (4.0-11.0) Red Blood Count 3.52 x10^6/uL (4.30-5.70) 3.57 x10^6/uL (4.30-5.70) Hemoglobin 10.2 g/dL (13.0-17.5) 10.2 g/dL (13.0-17.5) Hematocrit 32.1 % (39.0-53.0) 32.3 % (39.0-53.0) Mean Corpuscular Volume 91 fL (79-100) 91 fL (79-100) Mean Corpuscular Hemoglobin 29 pg (25-35) 29 pg (25-35) Mean Corpuscular Hemoglobin Concent 32 g/dL (31-37) 31 g/dL (31-37) Red Cell Distribution Width 20.7 % (11.5-14.5) 20.8 % (11.5-14.5) Platelet Count 299 x10^3/uL (140-400) 283 x10^3/uL (140-400) Neutrophils (%) (Auto) 72 % (31-73) 74 % (31-73) Lymphocytes (%) (Auto) 10 % (24-48) 9 % (24-48) Monocytes (%) (Auto) 7 % (0-9) 8 % (0-9) Eosinophils (%) (Auto) 9 % (0-3) 8 % (0-3) Basophils (%) (Auto) 2 % (0-3) 1 % (0-3) Neutrophils # (Auto) 6.3 x10^3uL (1.8-7.7) 6.7 x10^3uL (1.8-7.7) Lymphocytes # (Auto) 0.9 x10^3/uL (1.0-4.8) 0.8 x10^3/uL (1.0-4.8) Monocytes # (Auto) 0.6 x10^3/uL (0.0-1.1) 0.7 x10^3/uL (0.0-1.1) Eosinophils # (Auto) 0.8 x10^3/uL (0.0-0.7) 0.7 x10^3/uL (0.0-0.7) Basophils # (Auto) 0.1 x10^3/uL (0.0-0.2) 0.1 x10^3/uL (0.0-0.2) Platelet Estimate Adequate (ADEQUATE) Large Platelets Few Giant Platelets Occ Polychromasia Slight Anisocytosis Mod Macrocytosis Slight Prothrombin Time 13.4 SEC (11.7-14.0) Prothromb Time International Ratio 1.1 (0.8-1.1) Sodium Level 137 mmol/L (136-145) 137 mmol/L (136-145) Potassium Level 4.7 mmol/L (3.5-5.1) 4.3 mmol/L (3.5-5.1) Chloride Level 101 mmol/L (98-107) 100 mmol/L (98-107) Carbon Dioxide Level 23 mmol/L (21-32) 28 mmol/L (21-32) Anion Gap 13 (6-14) 9 (6-14) Blood Urea Nitrogen 54 mg/dL (8-26) 28 mg/dL (8-26) Creatinine 5.6 mg/dL (0.7-1.3) 4.1 mg/dL (0.7-1.3) Estimated GFR (Cockcroft-Gault) 10.7 15.3 BUN/Creatinine Ratio 10 (6-20) 7 (6-20) Glucose Level 96 mg/dL (70-99) 117 mg/dL (70-99) Lactic Acid Level 0.7 mmol/L (0.4-2.0) Calcium Level 8.7 mg/dL (8.5-10.1) 9.0 mg/dL (8.5-10.1) Magnesium Level 1.4 mg/dL (1.8-2.4) Total Bilirubin 0.3 mg/dL (0.2-1.0) 0.7 mg/dL (0.2-1.0) Aspartate Amino Transf (AST/SGOT) 124 U/L (15-37) 105 U/L (15-37) Alanine Aminotransferase (ALT/SGPT) 119 U/L (16-63) 115 U/L (16-63) Alkaline Phosphatase 142 U/L (46-116) 115 U/L (46-116) Troponin I Quantitative < 0.017 ng/mL (0.000-0.055) XW-Vsr-Y-Type Natriuretic Peptide > 58207 pg/mL (0-124) Total Protein 8.4 g/dL (6.4-8.2) 8.2 g/dL (6.4-8.2) Albumin 2.7 g/dL (3.4-5.0) 2.6 g/dL (3.4-5.0) Albumin/Globulin Ratio 0.5 (1.0-1.7) 0.5 (1.0-1.7) Random Vancomycin Level 23.9 mcg/mL Influenza Type A Antigen Negative (NEGATIVE) Influenza Type B Antigen Negative (NEGATIVE) Assessment/Plan Assessment/Plan IMP CHF-ACUTE DIASTOLIC ANEMIA EPRQ-AUL-PRN TO CHRONIC OBSTRUCTION FROM RETENTION RIGHT PLEURAL EFFUSION HX OF PERICARDIAL EFFUSION AND WINDOW PLAN HD EMERGENTLY LAST NIGHT HD AGAIN TTS MAY NEED THORACENTESIS CONSIDER CARDIOLOGY EVALUATION-UNLIKELY RELATED SINCE HE HAS A WINDOW CONT HOME MEDS SELENA WILL FOLLOW MARIIA VIDAL MD Oct 07, 2018 11:43
--- NOTE | 2018-10-07 12:28 | PDOC ---
CARDIOLOGY PROGRESS NOTE SUBJECTIVE: Patient is well known to our service. Please see prior notes from last admission. Briefly 53 y.o male on ESRD with recurrent pericardial effusion that underwent a window. He has been eating lots of TV dinners at home and presents with pulm edema. No chest pain. +dyspnea. OBJECTIVE: Vital SIgns: Vital Signs Date Time Temp Pulse Resp B/P (MAP) Pulse Ox O2 Delivery O2 Flow Rate FiO2 10/07/18 11:38 113 119/66 10/07/18 11:30 Room Air 10/07/18 11:00 98.9 18 98 98.9 I & O Intake and Output 10/07/18 07:00 Intake Total 100 ml Balance 100 ml Intake Oral 50 ml IV Total 50 ml Objective: Gen: A/O x3. NAD CVS: RRR, soft systolic flow murmur LUNGS: Clr No edema. CURRENT MEDICATIONS: Current Medications Medications (Trade) Dose Ordered Sig/Kevin Start Time Stop Time Status Last Admin Dose Admin Acetaminophen (Tylenol) 500 mg PRN Q6HRS PRN 10/07/18 09:45 Acetaminophen/ Codeine Phosphate (Tylenol #3) 1 tab PRN Q6HRS PRN 10/07/18 09:45 Albuterol/ Ipratropium (Duoneb) 3 ml RTQID 10/06/18 16:00 10/07/18 11:30 3 ML Darbepoetin Napoleon (Aranesp) 60 mcg WEEKLYHS 10/07/18 21:00 UNV Furosemide (Lasix) 60 mg 1X ONCE 10/06/18 13:00 10/06/18 13:04 DC 10/06/18 13:19 60 MG Guaifenesin (Robitussin Dm) 10 ml PRN Q6HRS PRN 10/07/18 09:45 Heparin Sodium (Porcine) (Heparin Sodium) 5,000 unit BID 10/06/18 21:00 10/07/18 08:38 5,000 UNIT Info (PHARMACY MONITORING -- do not chart) 1 each PRN DAILY PRN 10/06/18 15:15 UNV Lactobacillus Rhamnosus (Culturelle) 1 cap BID 10/06/18 21:00 10/07/18 08:35 1 CAP Lisinopril (Prinivil) 10 mg DAILY 10/07/18 10:30 10/07/18 11:37 10 MG Metoprolol Succinate (Toprol Xl) 25 mg DAILY 10/07/18 10:15 10/07/18 11:38 25 MG Ondansetron HCl (Zofran Odt) 4 mg PRN Q6HRS PRN 10/07/18 09:45 Ondansetron HCl (Zofran) 4 mg PRN Q6HRS PRN 10/07/18 09:45 Pantoprazole Sodium (Protonix) 40 mg BIDAC 10/07/18 16:30 Piperacillin Sod/ Tazobactam Sod (Zosyn Per Pharmacy) 1 each PRN DAILY PRN 10/06/18 13:00 Piperacillin Sod/ Tazobactam Sod 2.25 gm/Sodium Chloride 50 ml @ 100 mls/hr Q8HRS 10/06/18 22:00 10/07/18 06:01 100 MLS/HR Polysaccharide Iron Complex (Niferex 150) 150 mg BID66 10/07/18 18:00 Sodium Chloride 1,000 ml @ 400 mls/hr Q2H30M PRN 10/06/18 15:15 10/07/18 03:14 DC Sodium Chloride (Normal Saline Flush) 10 ml 1X PRN PRN 10/06/18 15:15 10/07/18 15:14 Vancomycin HCl (Vanco Per Pharmacy) 1 each PRN DAILY PRN 10/06/18 13:00 10/06/18 16:02 1 EACH Vancomycin HCl (Vancomycin Random Level) 1 each 1X ONCE 10/07/18 05:00 10/07/18 05:01 DC 10/07/18 05:00 1 EACH Vancomycin HCl 1.5 gm/Sodium Chloride 500 ml @ 250 mls/hr 1X ONCE 10/06/18 13:45 10/06/18 15:44 DC 10/06/18 14:22 250 MLS/HR DIAGNOSTIC TESTING: CT scan reviewed - Pulm edema, improved on CXR today labs reviewed. BNP > 35K, consistent with volume overload. ASSESSMENT: 1. Recent pericardial window - doing well now 2. Dyspnea with volume overload of unclear etiology - presumably from dietary non-compliance. 3. NICM - now compensated after HD PLAN: 1. Supportive care from CV standpoint. No further testing. 2. Discussed about dietary intake. 3. Continue toprol XL and lisinopril. Thanks. MARIANN TIRADO MD Oct 07, 2018 12:28
--- NOTE | 2018-10-07 13:15 | PDOC3 ---
Discharge Summary Visit Information Date of Admission: Oct 06, 2018 Date of Discharge: Oct 07, 2018 Admitting Diagnosis Comment: 1. Recent pericardial window - doing well now 2. Dyspnea with volume overload of unclear etiology - presumably from dietary non-compliance. 3. NICM - now compensated after HD Final Diagnosis Problems Medical Problems: (1) Dyspnea Status: Acute Brief Hospital Course Allergies Allergies Coded Allergies Type Severity Reaction Last Updated Verified No Known Drug Allergies 08/14/18 No Vital Signs Vital Signs Date Time Temp Pulse Resp B/P (MAP) Pulse Ox O2 Delivery O2 Flow Rate FiO2 10/07/18 11:38 113 119/66 10/07/18 11:30 Room Air 10/07/18 11:00 98.9 18 98 98.9 Lab Results Laboratory Tests Test 10/06/18 12:20 10/07/18 02:00 10/07/18 07:20 White Blood Count 8.7 x10^3/uL (4.0-11.0) 9.1 x10^3/uL (4.0-11.0) Red Blood Count 3.52 x10^6/uL (4.30-5.70) 3.57 x10^6/uL (4.30-5.70) Hemoglobin 10.2 g/dL (13.0-17.5) 10.2 g/dL (13.0-17.5) Hematocrit 32.1 % (39.0-53.0) 32.3 % (39.0-53.0) Mean Corpuscular Volume 91 fL (79-100) 91 fL (79-100) Mean Corpuscular Hemoglobin 29 pg (25-35) 29 pg (25-35) Mean Corpuscular Hemoglobin Concent 32 g/dL (31-37) 31 g/dL (31-37) Red Cell Distribution Width 20.7 % (11.5-14.5) 20.8 % (11.5-14.5) Platelet Count 299 x10^3/uL (140-400) 283 x10^3/uL (140-400) Neutrophils (%) (Auto) 72 % (31-73) 74 % (31-73) Lymphocytes (%) (Auto) 10 % (24-48) 9 % (24-48) Monocytes (%) (Auto) 7 % (0-9) 8 % (0-9) Eosinophils (%) (Auto) 9 % (0-3) 8 % (0-3) Basophils (%) (Auto) 2 % (0-3) 1 % (0-3) Neutrophils # (Auto) 6.3 x10^3uL (1.8-7.7) 6.7 x10^3uL (1.8-7.7) Lymphocytes # (Auto) 0.9 x10^3/uL (1.0-4.8) 0.8 x10^3/uL (1.0-4.8) Monocytes # (Auto) 0.6 x10^3/uL (0.0-1.1) 0.7 x10^3/uL (0.0-1.1) Eosinophils # (Auto) 0.8 x10^3/uL (0.0-0.7) 0.7 x10^3/uL (0.0-0.7) Basophils # (Auto) 0.1 x10^3/uL (0.0-0.2) 0.1 x10^3/uL (0.0-0.2) Platelet Estimate Adequate (ADEQUATE) Large Platelets Few Giant Platelets Occ Polychromasia Slight Anisocytosis Mod Macrocytosis Slight Prothrombin Time 13.4 SEC (11.7-14.0) Prothromb Time International Ratio 1.1 (0.8-1.1) Sodium Level 137 mmol/L (136-145) 137 mmol/L (136-145) Potassium Level 4.7 mmol/L (3.5-5.1) 4.3 mmol/L (3.5-5.1) Chloride Level 101 mmol/L (98-107) 100 mmol/L (98-107) Carbon Dioxide Level 23 mmol/L (21-32) 28 mmol/L (21-32) Anion Gap 13 (6-14) 9 (6-14) Blood Urea Nitrogen 54 mg/dL (8-26) 28 mg/dL (8-26) Creatinine 5.6 mg/dL (0.7-1.3) 4.1 mg/dL (0.7-1.3) Estimated GFR (Cockcroft-Gault) 10.7 15.3 BUN/Creatinine Ratio 10 (6-20) 7 (6-20) Glucose Level 96 mg/dL (70-99) 117 mg/dL (70-99) Lactic Acid Level 0.7 mmol/L (0.4-2.0) Calcium Level 8.7 mg/dL (8.5-10.1) 9.0 mg/dL (8.5-10.1) Magnesium Level 1.4 mg/dL (1.8-2.4) Total Bilirubin 0.3 mg/dL (0.2-1.0) 0.7 mg/dL (0.2-1.0) Aspartate Amino Transf (AST/SGOT) 124 U/L (15-37) 105 U/L (15-37) Alanine Aminotransferase (ALT/SGPT) 119 U/L (16-63) 115 U/L (16-63) Alkaline Phosphatase 142 U/L (46-116) 115 U/L (46-116) Troponin I Quantitative < 0.017 ng/mL (0.000-0.055) TC-Kch-U-Type Natriuretic Peptide > 52410 pg/mL (0-124) Total Protein 8.4 g/dL (6.4-8.2) 8.2 g/dL (6.4-8.2) Albumin 2.7 g/dL (3.4-5.0) 2.6 g/dL (3.4-5.0) Albumin/Globulin Ratio 0.5 (1.0-1.7) 0.5 (1.0-1.7) Random Vancomycin Level 23.9 mcg/mL Influenza Type A Antigen Negative (NEGATIVE) Influenza Type B Antigen Negative (NEGATIVE) Laboratory Tests Test 10/07/18 02:00 10/07/18 07:20 White Blood Count 9.1 x10^3/uL (4.0-11.0) Red Blood Count 3.57 x10^6/uL (4.30-5.70) Hemoglobin 10.2 g/dL (13.0-17.5) Hematocrit 32.3 % (39.0-53.0) Mean Corpuscular Volume 91 fL (79-100) Mean Corpuscular Hemoglobin 29 pg (25-35) Mean Corpuscular Hemoglobin Concent 31 g/dL (31-37) Red Cell Distribution Width 20.8 % (11.5-14.5) Platelet Count 283 x10^3/uL (140-400) Neutrophils (%) (Auto) 74 % (31-73) Lymphocytes (%) (Auto) 9 % (24-48) Monocytes (%) (Auto) 8 % (0-9) Eosinophils (%) (Auto) 8 % (0-3) Basophils (%) (Auto) 1 % (0-3) Neutrophils # (Auto) 6.7 x10^3uL (1.8-7.7) Lymphocytes # (Auto) 0.8 x10^3/uL (1.0-4.8) Monocytes # (Auto) 0.7 x10^3/uL (0.0-1.1) Eosinophils # (Auto) 0.7 x10^3/uL (0.0-0.7) Basophils # (Auto) 0.1 x10^3/uL (0.0-0.2) Sodium Level 137 mmol/L (136-145) Potassium Level 4.3 mmol/L (3.5-5.1) Chloride Level 100 mmol/L (98-107) Carbon Dioxide Level 28 mmol/L (21-32) Anion Gap 9 (6-14) Blood Urea Nitrogen 28 mg/dL (8-26) Creatinine 4.1 mg/dL (0.7-1.3) Estimated GFR (Cockcroft-Gault) 15.3 BUN/Creatinine Ratio 7 (6-20) Glucose Level 117 mg/dL (70-99) Calcium Level 9.0 mg/dL (8.5-10.1) Total Bilirubin 0.7 mg/dL (0.2-1.0) Aspartate Amino Transf (AST/SGOT) 105 U/L (15-37) Alanine Aminotransferase (ALT/SGPT) 115 U/L (16-63) Alkaline Phosphatase 115 U/L (46-116) Total Protein 8.2 g/dL (6.4-8.2) Albumin 2.6 g/dL (3.4-5.0) Albumin/Globulin Ratio 0.5 (1.0-1.7) Random Vancomycin Level 23.9 mcg/mL Influenza Type A Antigen Negative (NEGATIVE) Influenza Type B Antigen Negative (NEGATIVE) Brief Hospital Course Mr. Dowling is a 53 old white male admitted because of fluid overload but this is because of dietary indiscretion.He just had a recent pericardial window. He is also ESRD on dialysis and already has outpatient setup Creatinine and the rest of the labs okay nontoxic-appearing after emergent dialysis on Monday night. Flu negative. [id number] smoking history. Recent sepsis and pericardial window. Cleared from cardiology and renal to go home with no change in meds Discharge disposition to home with no PT needs He did not need any Rx for me Observation status, discharge time less than 30 minutes Discharge Information Condition at Discharge: Improved, Stable Disposition/Orders: D/C to Home Scheduled Iron Polysaccharides Complex (Poly-Iron) 150 Mg Capsule, 150 MG PO BID66 for supplement for 30 Days, #60 Prescribed by: ORQUIDEA GAMINO MD on 08/25/181143 Last Action: Converted on 10/07/18938 by SHERRY ROSARIO Lisinopril (Lisinopril) 10 Mg Tablet, 10 MG PO DAILY for heart for 30 Days, # 30 Ref 2 Prescribed by: NOEMI BARR APRN on 09/21/181210 Last Action: Continued on 10/07/18938 by SHERRY ROSARIO Metoprolol Succinate (Metoprolol Succinate ( Xl )) 25 Mg Tab.er.24h, 25 MG PO DAILY for heart for 30 Days, #30 Ref 2 Prescribed by: NOEMI BARR APRN on 09/21/181210 Last Action: Continued on 10/07/18938 by SHERRY ROSARIO [Darbepoetin [place] In Polysorbat] 60 MCG/0.3 ML DISP.SYRIN, 60 MCG SQ WEEKLYHS for blood count for 7 Days, #1 Prescribed by: ORQUIDEA GAMINO MD on 08/25/181143 Last Action: Converted on 10/07/18938 by SHERRY ROSARIO [Pantoprazole] 40 MG TABLET.DR, 40 MG PO BIDAC for [facility] for 30 Days, #60 Prescribed by: ORQUIDEA GAMINO MD on 08/25/181143 Last Action: Converted on 10/07/18938 by SHERRY ROSARIO Discontinued Medications Ciprofloxacin Hcl (Cipro) 250 Mg Tablet, 3 TAB PO DAILY for antibiotic, #14 ( Reported) Entered as Reported by: KAITLYN SUAREZ on 09/21/18 1152 Last Action: Discontinued on 10/06/181736 by SHERRY CAPONE MD Oct 07, 2018 13:15
[2018-10-07 15:00] VITALS: BP 129/80
--- NOTE | 2018-10-07 15:24 | NUR ---
Discharge Note: FELICE GROVE Discharge instructions and discharge home medications reviewed with Patient and a copy given. All questions have been answered and understanding verbalized. The following instructions and handouts were given: Patient given education regarding diet and shortness of breath print out. Discontinued lines and drains: IV removed per protocol. Patient discharged home, picked up by mother.
[2018-10-07] MEDS ORDERED: PANTOPRAZOLE 40 MG TABLET.DR. PO SCH (16:30)
[2018-10-07] MEDS ORDERED: IRON POLYSACCHARIDE COMPLEX 150 MG CAPSULE PO SCH (18:00)
[2018-10-07] MEDS ORDERED: DARBEPOETIN ALFA 60 MCG/0.3 ML DISP.SYRIN. SQ SCH (21:00)
== END 2018-10-07 15:20 | disposition home or self-care (01) | DRG 291 ==
LOC: ER 11:46 → 5 NORTH 13:44
PROVIDERS: ADMIT Internal Medicine; ATTEND Internal Medicine
PROC: 5A1D70Z Performance of Urinary Filtration, Intermittent, Less than 6 Hours Per Day (ICD-10-PCS; principal; 2018-10-06)
DX: I13.2 Hypertensive heart and chronic kidney disease with heart failure and with stage 5 chronic kidney disease, or end stage renal disease (principal); I50.41 Acute combined systolic (congestive) and diastolic (congestive) heart failure; N18.6 End stage renal disease; E43 Unspecified severe protein-calorie malnutrition; R65.10 Systemic inflammatory response syndrome (SIRS) of non-infectious origin without acute organ dysfunction; I42.9 Cardiomyopathy, unspecified; J44.9 Chronic obstructive pulmonary disease, unspecified; D63.1 Anemia in chronic kidney disease; N32.0 Bladder-neck obstruction; Z87.01 Personal history of pneumonia (recurrent); Z99.2 Dependence on renal dialysis; Z79.899 Other long term (current) drug therapy; Z82.49 Family history of ischemic heart disease and other diseases of the circulatory system; Z87.891 Personal history of nicotine dependence; Z91.11 Patient's noncompliance with dietary regimen
CPT/HCPCS: 36415; 71045; 71046; 71250; 80053; 80202; 83605; 83735; 83880; 84484; 85025; 85610; 87040; 87804; 93005; 94640; 94760; 96365; 96367; 96375; J1644; J1940; J2543; J3370; J7040; J7620; 99285-25

== ENCOUNTER 2018-10-08 21:25 | Inpatient (IN) | payer OTHER ==
[~2018-10-08] VITALS: Ht 172.7 cm; Wt 61.0 kg
[2018-10-08] MEDS ORDERED: LORazepam 1 MG TABLET PO ONE (22:30)
--- NOTE | 2018-10-08 22:44 | PHYS DOC ---
Past Medical History Past Medical History: CHF, COPD, Pneumonia, Renal Failure, Other Additional Past Medical Histor: INCONTINENCE Past Surgical History: Other Additional Past Surgical Histo: Dialysis cath right chest, LEFT KIDNEY STENT, SUPRAPUBIC CATH Alcohol Use: None Drug Use: None Adult General Chief Complaint Chief Complaint: SHORTNESS OF BREATH HPI HPI Patient is a 53 year old male w/ ESRD needing hemodialysis, COPD, CHF, recent placement of a pericardial window for pericardial effusion (08/2018), and a recent hospital stay (d/c 10/06/18 for SOB from fluid overload), presents with ongoing SOB that worsens at night when trying to fall asleep. Pt reports this has caused him to not get any sleep since he left the hospital. His SOB has improved since he was discharged, per pt, and that hemodialysis received monday (10/06) caused the biggest improvement for him. He describes "nodding off" at night only to awaken a few minutes later w/ rapid breathing and anxiety about getting more SOB. He feels anxious now and states he just wants to be able to sleep and get to his hemodialysis tomorrow morning (monday). He admits cough, MOON, and SOB. Denies chest pain, n/v, diarrhea, abdominal pain, and palpitations. Review of Systems Review of Systems Constitutional: Denies fever or chills Eyes: Denies change in visual acuity, redness, or eye pain HENT: Denies nasal congestion or sore throat Respiratory: Admits cough and shortness of breath Cardiovascular: No additional information not addressed in HPI GI: Denies abdominal pain, nausea, vomiting, bloody stools or diarrhea Musculoskeletal: Denies back pain or joint pain Integument: Denies rash or skin lesions Neurologic: Denies focal weakness or sensory changes. Admits MOON Endocrine: Denies polyuria or polydipsia All other systems were reviewed and found to be within normal limits, except as documented in this note. Current Medications Current Medications Current Medications Medications (Trade) Dose Ordered Sig/Kevin Start Time Stop Time Status Last Admin Dose Admin Lorazepam (Ativan) 2 mg 1X ONCE 10/08/18 22:30 10/08/18 22:31 DC 10/08/18 23:09 2 MG Allergies Allergies Allergies Coded Allergies Type Severity Reaction Last Updated Verified No Known Drug Allergies 08/14/18 No Physical Exam Physical Exam Constitution: Mild distress, anxious appearing HENT: Normocephalic, atraumatic, bilateral external ears normal, oropharynx moist, no oral exudates, nose normal. Eyes: PERRLA, EOMI, conjunctiva normal, no discharge. Neck: Normal range of motion, no tenderness, supple, no stridor. Cardiovascular:Heart rate tachycardic, regular rhythm. Distant heart sounds. Holosystolic murmur +2/6 appreciated at Left upper and lower sternal borders. Lungs & Thorax: Pt is unable to breathe deeply, rales appreciated on auscultation in all lung quadrants, distant breath sounds - Likely ongoing fluid overload. Slight wheezing appreciated on auscultation. Abdomen: Bowel sounds normal, soft, no tenderness, no masses, no pulsatile masses. Skin: Warm, dry, no erythema, no rash. Back: No tenderness, no CVA tenderness. Neurologic: Alert and oriented X 3, normal motor function, normal sensory function, no focal deficits noted. Psychologic: Affect normal, judgement normal, mood normal. Current Patient Data Vital Signs Vital Signs Date Time Temp Pulse Resp B/P (MAP) Pulse Ox O2 Delivery O2 Flow Rate FiO2 10/08/18 23:12 105 157/83 (107) 92 10/08/18 22:02 97.5 26 Room Air 97.5 Lab Values Laboratory Tests Test 10/08/18 22:54 White Blood Count 8.2 x10^3/uL (4.0-11.0) Red Blood Count 3.35 x10^6/uL (4.30-5.70) L Hemoglobin 9.7 g/dL (13.0-17.5) L Hematocrit 30.0 % (39.0-53.0) L Mean Corpuscular Volume 90 fL (79-100) Mean Corpuscular Hemoglobin 29 pg (25-35) Mean Corpuscular Hemoglobin Concent 32 g/dL (31-37) Red Cell Distribution Width 20.6 % (11.5-14.5) H Platelet Count 275 x10^3/uL (140-400) Neutrophils (%) (Auto) 63 % (31-73) Lymphocytes (%) (Auto) 14 % (24-48) L Monocytes (%) (Auto) 10 % (0-9) H Eosinophils (%) (Auto) 12 % (0-3) H Basophils (%) (Auto) 1 % (0-3) Neutrophils # (Auto) 5.2 x10^3uL (1.8-7.7) Lymphocytes # (Auto) 1.2 x10^3/uL (1.0-4.8) Monocytes # (Auto) 0.8 x10^3/uL (0.0-1.1) Eosinophils # (Auto) 0.9 x10^3/uL (0.0-0.7) H Basophils # (Auto) 0.1 x10^3/uL (0.0-0.2) Platelet Estimate Adequate (ADEQUATE) Large Platelets Occ Polychromasia Slight Anisocytosis Slight Ovalocytes Occ Stomatocytes Occ Prothrombin Time 14.4 SEC (11.7-14.0) H Prothrombin Time INR 1.2 (0.8-1.1) H Sodium Level 137 mmol/L (136-145) Potassium Level 5.6 mmol/L (3.5-5.1) H Chloride Level 101 mmol/L (98-107) Carbon Dioxide Level 24 mmol/L (21-32) Anion Gap 12 (6-14) Blood Urea Nitrogen 67 mg/dL (8-26) H Creatinine 7.5 mg/dL (0.7-1.3) H Estimated GFR (Cockcroft-Gault) 7.6 BUN/Creatinine Ratio 9 (6-20) Glucose Level 103 mg/dL (70-99) H Calcium Level 8.7 mg/dL (8.5-10.1) Total Bilirubin 0.3 mg/dL (0.2-1.0) Aspartate Amino Transferase (AST) 78 U/L (15-37) H Alanine Aminotransferase (ALT) 91 U/L (16-63) H Alkaline Phosphatase 127 U/L (46-116) H Troponin I Quantitative < 0.017 ng/mL (0.000-0.055) CQ-Orc-U-Type Natriuretic Peptide > 65801 pg/mL (0-124) H Total Protein 8.0 g/dL (6.4-8.2) Albumin 2.5 g/dL (3.4-5.0) L Albumin/Globulin Ratio 0.5 (1.0-1.7) L Laboratory Tests 10/08/18 22:54 Laboratory Tests 10/08/18 22:54 EKG EKG []EKG shows sinus tach rate 102 there are T-wave inversions laterally in the no STEMI seen interpreted by me the time of encounter Radiology/Procedures Radiology/Procedures [] Impressions: My interpretation chest x-ray shows a worsening right-sided pleural effusion with possible infiltrate as well compared to October 06 Course & Med Decision Making Course & Med Decision Making Pt is a 53 yo man who is on Monday dialysis for ESRD, had a recent pericardial window placement for pericardial effusion (08/2018), hospital stay w/ treatment for SOB from volume overload (10/06/18), and a history of CHF, COPD, and HTN, presents w/ ongoing SOB that worsens at night. He is unable to sleep d/t SOB from panic attacks that awaken him. Suspect component of orthopnea paroxysmal nocturnal dyspnea, chest x-ray shows worsening right-sided opacity this could be a combination of effusion pneumonia pulmonary edema patient is satting 92-94% on room air in the emergency department did appear mild to moderately short of breath but is speaking full sentences At this point time patient will be admitted to the service of Dr. landrum per usual protocol for diuresis, dialysis, pulmonary consultation. gave abx in case of pna, although i think fluid overload is more likely. mild hyperkalemia, lasix gvien pt still urinates. should be able to tolerate it given esrd status Workup CXR, EKG, Troponin, BNP, CBC, CMP, PT w/ INR Lorazepam Dragon Disclaimer Dragon Disclaimer This electronic medical record was generated, in whole or in part, using a voice recognition dictation system. Departure Departure Impression: Primary Impression: Dyspnea Additional Impressions: Pleural effusion End-stage renal disease on hemodialysis Disposition: ADMITTED INPATIENT Admitting Physician: Other Condition: STABLE Referrals: CHRIS GRIER MD (PCP) Problem Qualifiers BRITNI AGUILAR MD Oct 08, 2018 22:44
[2018-10-08 23:10] LABS: CALCIUM 8.7 mg/dL (8.5-10.1); CREATININE 7.5 mg/dL (0.7-1.3); GFR 7.6; POTASSIUM 5.6 mmol/L (3.5-5.1)
[2018-10-08 23:12] LABS: PROTHROMBIN TIME PATIENT 14.4 SEC (11.7-14.0)
[2018-10-08 23:16] LABS: ALBUMIN 2.5 g/dL (3.4-5.0); ALBUMIN/GLOBULIN RATIO 0.5 (1.0-1.7); TOTAL BILIRUBIN 0.3 mg/dL (0.2-1.0)
[2018-10-08 23:33] LABS: BASO # 0.1 x10^3/uL (0.0-0.2); BASO % 1 % (0-3); EOS # 0.9 x10^3/uL (0.0-0.7); EOS % 12 % (0-3); HEMOGLOBIN 9.7 g/dL (13.0-17.5); LYMPH # 1.2 x10^3/uL (1.0-4.8); LYMPH % 14 % (24-48); MEAN CORPUSCULAR HEMOGLOBIN 29 pg (25-35); MEAN CORPUSCULAR HGB CONC 32 g/dL (31-37); MEAN CORPUSCULAR VOLUME 90 fL (79-100); MONO # 0.8 x10^3/uL (0.0-1.1); MONO % 10 % (0-9); NEUT # 5.2 x10^3uL (1.8-7.7); NEUT % 63 % (31-73); PLATELET COUNT 275 x10^3/uL (140-400); RED BLOOD COUNT 3.35 x10^6/uL (4.30-5.70); RED CELL DISTRIBUTION WIDTH 20.6 % (11.5-14.5); WHITE BLOOD COUNT 8.2 x10^3/uL (4.0-11.0)
[2018-10-08] MEDS ORDERED: PIP/TAZO PER PHARMACY MC PRN (23:45)
[2018-10-08 23:51] LABS: OVALOCYTES OCC; PLT ESTIMATE ADEQUATE (ADEQUATE); POLYCHROMASIA SLIGHT; STOMATOCYTES OCC
[2018-10-08 23:52] LABS: ANISOCYTOSIS SLIGHT
[2018-10-09] MEDS ORDERED: FUROSEMIDE 40 MG/4 ML VIAL. IVP ONE
[2018-10-09] MEDS: PIPERACILLIN/TAZOBACTAM 2.25 GM in IV NORMAL SALINE 50ML 50 ML IV SCH ×4 (00:05→21:53)
[2018-10-09] MEDS ORDERED: VANCOMYCIN 1.5 GM in IV NORMAL SALINE 500ML BAG 500 ML IV ONE (00:30)
--- NOTE | 2018-10-09 01:25 | EKG ---
[facility] [address] [place] [address] Test Date: 2018-10-08 Test Time: 22:36:16 Pat Name: FELICE GROVE Department: Room: Gender: M Freight Caller: : 1965 Requested By: BRITNI AGUILAR Order Number: [id number] Reading MD: Inocente Ayers MD Measurements Intervals [place] Rate: 102 P: -6 NM: 116 QRS: 20 QRSD: 84 T: 123 QT: 362 QTc: 476 Interpretive Statements SINUS TACHYCARDIA NON-SPECIFIC ST/T CHANGES Electronically Signed On 10-12-2018 16:05:16 CDT by Inocente Ayers MD
[2018-10-09 02:10] VITALS: BP 151/85
[2018-10-09] MEDS: VANCOMYCIN PER PHARMACY MC PRN ×2 (02:40→20:53)
--- NOTE | 2018-10-09 02:41 | NUR ---
Pharmacy Vancomycin Dosing Note S:Consulted to monitor and dose vancomycin started 10/09/18. O:FELICE GROVE is a 53 year old M with Pneumonia . Height: 5 feet, 8 inches Weight: 63.486402 kg [place] Body Weight: 68.40 Adjusted Body Weight: 66.48 Dosing Weight: Actual Other Antibiotics: ZOSYN 2.25 GM Q8H LABS: Last BUN: 67 Last Creatinine: 7.5 Creatinine Clearance: HD mL/min Last WBC: 8.2 Last Procalcitonin: Tmax (past 24 hours): Microbiology: I/O: Drug Levels: Last level: on at Last dose given 10/09/18 at 0100 Vancomycin Dosing: Loading Dose: 1500 mg x1 Dosing Weight: Actual Target Trough: 15-20 A: Based on: WT AND DIALYSIS P: 1. Begin Vancomycin 500 mg IV Dose Per Levels 2. Follow up level on WHEN DIALYSIS SCHEDULE SET 3. Pharmacy will continue to monitor, follow and adjust therapy as needed. EMY HERNANDEZ RPH, 10/09/18 024 Signed: 10/09/18 at 0242 by EMY HERNANDEZ RPH PHA
--- NOTE | 2018-10-09 02:46 | NUR ---
Patient admitted to N room 526. Arrived via WC accompanied by RN. Patient returned to monitor worker. Pt oriented to room, call light/ TV remote and safety policies. Patient is alert and oriented x4. Patient does not know current medication he is taking. Admission information complete.
[2018-10-09 07:00] VITALS: BP 163/79
--- NOTE | 2018-10-09 07:41 | RAD ---
Indication:chest pain TECHNIQUE:Portable AP chest X-ray COMPARISON: 10/07/2018 FINDINGS: Heart is normal in size. Stable position of dialysis catheter. Diffuse bilateral interstitial opacities are seen with confluent patchy opacities in the right mid and lower lung zone. No pneumothorax. Blunting of right costophrenic angle is seen. Visualized bony thorax within normal limits. IMPRESSION: Findings suggests diffuse interstitial pulmonary edema or atypical/viral infection. Confluent patchy opacities in the right lung may be secondary to pneumonia with underlying trace right pleural effusion. Electronically signed by: Mo Bradford DO (10/09/2018 7:37 AM) [facility]
--- NOTE | 2018-10-09 08:16 | PDOC1 ---
History and Physical Date of Admission Date of Admission DATE: 10/09/18 TIME: 08:15 Identification/Chief Complaint Chief Complaint Shortness of breath Source Source: Patient History of Present Illness History of Present Illness 53 year old male w/ ESRD needing hemodialysis, COPD, CHF, recent placement of a pericardial window for pericardial effusion (08/2018), and a recent hospital stay (d/c 10/06/18 for SOB from fluid overload), presents with ongoing SOB that worsens at night when trying to fall asleep. Pt reports this has caused him to not get any sleep since he left the hospital. He describes "nodding off" at night only to awaken a few minutes later w/ rapid breathing and anxiety about getting more SOB. He feels anxious now and states he just wants to be able to sleep and get to his hemodialysis today. He admits cough, MOON, and SOB. Denies chest pain, n/v, diarrhea, abdominal pain, and palpitations. He is unable to sleep d/t SOB from panic attacks that awaken him. Chest x-ray shows worsening right-sided opacity this could be a combination of effusion pneumonia pulmonary edema , Patient was sating 92-94% on room air in the emergency department Currently patient c/o Shortness of breath. No CP . Denies F/C. Last HD was on Monday(per his schedule), notes this helped his breathing the most. Going to HD now. Past Medical History Cardiovascular: No pertinent hx, HTN Pulmonary: Bronchitis, COPD, Other CENTRAL NERVOUS SYSTEM: Other GI: No pertinent hx, GI bleed Heme/Onc: Anemia NOS Hepatobiliary: No pertinent hx Psych: No pertinent hx Rheumatologic: No pertinent hx Infectious disease: Other Renal/: Chronic renal insuff, Chronic renal failure, UTI, Other Endocrine: No pertinent hx, Hyperparathyroidism Past Surgical History Past Surgical History: Other Family History Family History: Coronary Artery Disease Social History ALCOHOL: none Drugs: None Current Problem List Problem List Problems Medical Problems: (1) Dyspnea Status: Acute Current Medications Current Medications Current Medications Lorazepam (Ativan) 2 mg 1X ONCE PO Last administered on 10/08/18at 23:09; Start 10/08/18 at 22:30; Stop 10/08/18 at 22:31; Status DC Vancomycin HCl (Vanco Per Pharmacy) 1 each PRN DAILY PRN MC SEE COMMENTS Last administered on 10/09/18at 02:40; Start 10/08/18 at 23:45 Piperacillin Sod/ Tazobactam Sod (Zosyn Per Pharmacy) 1 each PRN DAILY PRN MC SEE COMMENTS; Start 10/08/18 at 23:45 Furosemide (Lasix) 60 mg 1X ONCE IVP Last administered on 10/09/18at 00:13; Start 10/09/18 at 00:00; Stop 10/09/18 at 00:01; Status DC Piperacillin Sod/ Tazobactam Sod 2.25 gm/Sodium Chloride 50 ml @ 100 mls/hr Q8HRS IV Last administered on 10/09/18at 05:41; Start 10/09/18 at 00:00 Vancomycin HCl 1.5 gm/Sodium Chloride 500 ml @ 250 mls/hr 1X ONCE IV Last administered on 10/09/18at 01:12; Start 10/09/18 at 00:30; Stop 10/09/18 at 02:29 ; Status DC Active Scripts Active Lisinopril 10 Mg Tablet 10 Mg PO DAILY 30 Days Metoprolol Succinate ( Xl ) (Metoprolol Succinate) 25 Mg Tab.er.24h 25 Mg PO DAILY 30 Days [Pantoprazole] 40 MG Tablet.dr 40 Mg PO BIDAC 30 Days [Darbepoetin Napoleon In Polysorbat] 60 MCG/0.3 ML Disp.syrin 60 Mcg SQ WEEKLYHS 7 Days Poly-Iron (Iron Polysaccharides Complex) 150 Mg Capsule 150 Mg PO BID66 30 Days Allergies Allergies: Coded Allergies: No Known Drug Allergies (Unverified , 08/14/18) ROS General: YES: Fatigue, Malaise; No: Chills, Night Sweats, Appetite, Other PSYCHOLOGICAL ROS: YES: Anxiety; No: Behavioral Disorder, Concentration difficultie, Decreased libido, Depression, Disorientation, Hallucinations, Hostility, Irritablity, Memory difficulties, Mood Swings, Obsessive thoughts, Physical abuse, Sexual abuse, Sleep disturbances, Suicidal ideation, Other Eyes: No Blurry vision, No Decreased vision, No Double vision, No Dry eyes, No Excessive tearing, No Eye Pain, No Itchy Eyes, No Loss of vision, No Photophobia , No Scotomata, No Uses contacts, No Uses glasses, No Other HEENT: No: Heacaches, Visual Changes, Hearing change, Nasal congestion, Nasal discharge, Oral lesions, Sinus pain, Sore Throat, Epistaxis, Sneezing, Snoring, Tinnitus, Vertigo, Vocal changes, Other ALLERGY AND IMMUNOLOGY: No: Hives, Insect Bite Sensitivity, Itchy/Watery Eyes, Nasal Congestion, Post Nasal Drip, Seasonal Allergies, Other Hematological and Lymphatic: No: Bleeding Problems, Blood Clots, Blood Transfusions, Brusing, Night Sweats, Pallor, Swollen Lymph Nodes, Other ENDOCRINE: No: Breast Changes, Galactorrhea, Hair Pattern Changes, Hot Flashes , Malaise/lethargy, Mood Swings, Palpitations, Polydipsia/polyuria, Skin Changes , Temperature Intolerance, Unexpected Weight Changes, Other Breast: No New/Changing Breast Lumps, No Nipple changes, No Nipple discharge, No Other Respiratory: YES: Cough, Orthopnea, Shortness of breath, SOB with excertion, Tachypnea, Wheezing; No: Hemoptysis, Pleuritic Pain, Sputum Changes, Stridor, Other Cardiovascular: yes Orthopnea, yes Paroxysmal Noc. Dyspnea, yes Edema; No Chest Pain, No Palpitations, No Lt Headedness, No Other Gastrointestinal: Yes Nausea; No Vomiting, No Abdominal Pain, No Diarrhea, No Constipation, No Melena, No Hematochezia, No Other Genitourinary: No Dysuria, No Frequency, No Incontinence, No Hematuria, No Retention, No Discharge, No Urgency, No Pain, No Flank Pain, No Other, No , No , No , No , No , No , No Musculoskeletal: No Gait Disturbance, No Joint Pain, No Joint Stiffness, No Joint Swelling, No Muscle Pain, No Muscular Weakness, No Pain In:, No Swelling In:, No Other Neurological: No Behavorial Changes, No Bowel/Bladder ControlChng, No Confusion , No Dizziness, No Gait Disturbance, No Headaches, No Impaired Coord/balance, No Memory Loss, No Numbness/Tingling, No Seizures, No Speech Problems, No Tremors, No Visual Changes, No Weakness, No Other Skin: No Dry Skin, No Eczema, No Hair Changes, No Lumps, No Mole Changes, No Mottling, No Nail Changes, No Pruritus, No Rash, No Skin Lesion Changes, No Other, No Acne Physical Exam General: Cooperative, moderate distress HEENT: Atraumatic, PERRLA, EOMI, Mucous membr. moist/pink Lungs: Other (Bibasilar crackles and scattered wheezes) Heart: S1S2, RRR, no gallops, no murmurs Abdomen: Normal bowel sounds, Soft, No tenderness, No hepatosplenomegaly, No masses, Other (Suprapubic catheter in place) Rectal Exam: not examined Extremities: No clubbing, No cyanosis, No tenderness/swelling, Other ( Decreased pulses and 1+ edema) Skin: No significant lesion Neuro: Normal tone, Sensation intact, Cranial nerves 3-12 NL, Reflexes 2+ Vitals Vitals Vital Signs Date Time Temp Pulse Resp B/P (MAP) Pulse Ox O2 Delivery O2 Flow Rate FiO2 10/09/18 02:35 Room Air 10/09/18 02:10 97.8 106 18 151/85 (107) 95 97.8 Labs Labs Laboratory Tests Test 10/08/18 22:54 10/09/18 00:04 White Blood Count 8.2 x10^3/uL (4.0-11.0) Red Blood Count 3.35 x10^6/uL (4.30-5.70) Hemoglobin 9.7 g/dL (13.0-17.5) Hematocrit 30.0 % (39.0-53.0) Mean Corpuscular Volume 90 fL (79-100) Mean Corpuscular Hemoglobin 29 pg (25-35) Mean Corpuscular Hemoglobin Concent 32 g/dL (31-37) Red Cell Distribution Width 20.6 % (11.5-14.5) Platelet Count 275 x10^3/uL (140-400) Neutrophils (%) (Auto) 63 % (31-73) Lymphocytes (%) (Auto) 14 % (24-48) Monocytes (%) (Auto) 10 % (0-9) Eosinophils (%) (Auto) 12 % (0-3) Basophils (%) (Auto) 1 % (0-3) Neutrophils # (Auto) 5.2 x10^3uL (1.8-7.7) Lymphocytes # (Auto) 1.2 x10^3/uL (1.0-4.8) Monocytes # (Auto) 0.8 x10^3/uL (0.0-1.1) Eosinophils # (Auto) 0.9 x10^3/uL (0.0-0.7) Basophils # (Auto) 0.1 x10^3/uL (0.0-0.2) Platelet Estimate Adequate (ADEQUATE) Large Platelets Occ Polychromasia Slight Anisocytosis Slight Ovalocytes Occ Stomatocytes Occ Prothrombin Time 14.4 SEC (11.7-14.0) Prothromb Time International Ratio 1.2 (0.8-1.1) Sodium Level 137 mmol/L (136-145) Potassium Level 5.6 mmol/L (3.5-5.1) Chloride Level 101 mmol/L (98-107) Carbon Dioxide Level 24 mmol/L (21-32) Anion Gap 12 (6-14) Blood Urea Nitrogen 67 mg/dL (8-26) Creatinine 7.5 mg/dL (0.7-1.3) Estimated GFR (Cockcroft-Gault) 7.6 BUN/Creatinine Ratio 9 (6-20) Glucose Level 103 mg/dL (70-99) Calcium Level 8.7 mg/dL (8.5-10.1) Total Bilirubin 0.3 mg/dL (0.2-1.0) Aspartate Amino Transf (AST/SGOT) 78 U/L (15-37) Alanine Aminotransferase (ALT/SGPT) 91 U/L (16-63) Alkaline Phosphatase 127 U/L (46-116) Troponin I Quantitative < 0.017 ng/mL (0.000-0.055) TT-Tyx-A-Type Natriuretic Peptide > 93357 pg/mL (0-124) Total Protein 8.0 g/dL (6.4-8.2) Albumin 2.5 g/dL (3.4-5.0) Albumin/Globulin Ratio 0.5 (1.0-1.7) Lactic Acid Level 0.7 mmol/L (0.4-2.0) Laboratory Tests Test 10/08/18 22:54 10/09/18 00:04 White Blood Count 8.2 x10^3/uL (4.0-11.0) Red Blood Count 3.35 x10^6/uL (4.30-5.70) Hemoglobin 9.7 g/dL (13.0-17.5) Hematocrit 30.0 % (39.0-53.0) Mean Corpuscular Volume 90 fL (79-100) Mean Corpuscular Hemoglobin 29 pg (25-35) Mean Corpuscular Hemoglobin Concent 32 g/dL (31-37) Red Cell Distribution Width 20.6 % (11.5-14.5) Platelet Count 275 x10^3/uL (140-400) Neutrophils (%) (Auto) 63 % (31-73) Lymphocytes (%) (Auto) 14 % (24-48) Monocytes (%) (Auto) 10 % (0-9) Eosinophils (%) (Auto) 12 % (0-3) Basophils (%) (Auto) 1 % (0-3) Neutrophils # (Auto) 5.2 x10^3uL (1.8-7.7) Lymphocytes # (Auto) 1.2 x10^3/uL (1.0-4.8) Monocytes # (Auto) 0.8 x10^3/uL (0.0-1.1) Eosinophils # (Auto) 0.9 x10^3/uL (0.0-0.7) Basophils # (Auto) 0.1 x10^3/uL (0.0-0.2) Platelet Estimate Adequate (ADEQUATE) Large Platelets Occ Polychromasia Slight Anisocytosis Slight Ovalocytes Occ Stomatocytes Occ Prothrombin Time 14.4 SEC (11.7-14.0) Prothromb Time International Ratio 1.2 (0.8-1.1) Sodium Level 137 mmol/L (136-145) Potassium Level 5.6 mmol/L (3.5-5.1) Chloride Level 101 mmol/L (98-107) Carbon Dioxide Level 24 mmol/L (21-32) Anion Gap 12 (6-14) Blood Urea Nitrogen 67 mg/dL (8-26) Creatinine 7.5 mg/dL (0.7-1.3) Estimated GFR (Cockcroft-Gault) 7.6 BUN/Creatinine Ratio 9 (6-20) Glucose Level 103 mg/dL (70-99) Calcium Level 8.7 mg/dL (8.5-10.1) Total Bilirubin 0.3 mg/dL (0.2-1.0) Aspartate Amino Transf (AST/SGOT) 78 U/L (15-37) Alanine Aminotransferase (ALT/SGPT) 91 U/L (16-63) Alkaline Phosphatase 127 U/L (46-116) Troponin I Quantitative < 0.017 ng/mL (0.000-0.055) MP-Bek-T-Type Natriuretic Peptide > 94782 pg/mL (0-124) Total Protein 8.0 g/dL (6.4-8.2) Albumin 2.5 g/dL (3.4-5.0) Albumin/Globulin Ratio 0.5 (1.0-1.7) Lactic Acid Level 0.7 mmol/L (0.4-2.0) Images Images CXR - Findings suggests diffuse interstitial pulmonary edema or atypical/viral infection. Confluent patchy opacities in the right lung may be secondary to pneumonia with underlying trace right pleural effusion. VTE Prophylaxis Ordered VTE Prophylaxis Devices: No VTE Pharmacological Prophylaxi: Yes Assessment/Plan Assessment/Plan A/P: Acute combined CHF - with elevated BNP, CXR consistent with fluid overload and classic CHF symptoms will diurese with UF per nephrology. Cardiology to see H/o Pleural effusion - looks like it is still present +/- pneumonia, will have pulm to see SIRS - meets sepsis criteria, will treat as HCAP Pulm infiltrate - recent admits, treatment for HCAP started Recent pericardial window - despite multiple hospital admits he is recovering rather well ESRD - HD today, seems going three days is too much for him currently. Nephrology to see Mod/severe malnutrition - likely 2/2 chronic diseases. Nutrition to see Anemia of ESRD - and history of GI bleeding, will monitor Hb in house transaminitis - likely congestive hepatopathy, will trend and consult GI again if necessary FEN - Renal, 1L fluid restriction PPX - heparin FULL CODE Inpatient for acute CHF exacerbation at least 2 midnights. LISA DIOP MD Oct 09, 2018 08:16
--- NOTE | 2018-10-09 10:22 | PDOC2 ---
CONSULT Date of Consult Date of Consult DATE: 10/09/18 TIME: 10:13 Reason for Consult Reason for Consult: ESRD Source Source: Chart review, Patient History of Present Illness Reason for Visit: Pt is a 53 yo CM ESRD on HD TTS at [facility] multiple hospitalizations, dced recently . S/P pericardial window placement for pericardial effusion (08/2018), hospital stay w/ treatment for SOB from volume overload (10/06/18), and a history of CHF, COPD, and HTN, presents w/ ongoing SOB that worsens at night. He is unable to sleep d/t SOB from panic attacks that awaken him. Chest x-ray shows worsening right-sided opacity this could be a combination of effusion pneumonia pulmonary edema , Patient was sating 92-94% on room air in the emergency department Currently patient c/o Shortness of breath. No CP . Denies F/C. Last HD was on Monday(per his schedule) Past Medical History Cardiovascular: No pertinent hx, HTN Pulmonary: Bronchitis, COPD, Other CENTRAL NERVOUS SYSTEM: Other GI: No pertinent hx, GI bleed Heme/Onc: Anemia NOS Hepatobiliary: No pertinent hx Psych: No pertinent hx Rheumatologic: No pertinent hx Infectious disease: Other Renal/: Chronic renal insuff, Chronic renal failure, UTI, Other Endocrine: No pertinent hx, Hyperparathyroidism Past Surgical History Past Surgical History: Other Family History Family History: Coronary Artery Disease Social History ALCOHOL: none Drugs: None Lives: with Family Current Problem List Problem List Problems Medical Problems: (1) Dyspnea Status: Acute Current Medications Current Medications Current Medications Lorazepam (Ativan) 2 mg 1X ONCE PO Last administered on 10/08/18at 23:09; Start 10/08/18 at 22:30; Stop 10/08/18 at 22:31; Status DC Vancomycin HCl (Vanco Per Pharmacy) 1 each PRN DAILY PRN MC SEE COMMENTS Last administered on 10/09/18at 02:40; Start 10/08/18 at 23:45 Piperacillin Sod/ Tazobactam Sod (Zosyn Per Pharmacy) 1 each PRN DAILY PRN MC SEE COMMENTS; Start 10/08/18 at 23:45 Furosemide (Lasix) 60 mg 1X ONCE IVP Last administered on 10/09/18at 00:13; Start 10/09/18 at 00:00; Stop 10/09/18 at 00:01; Status DC Piperacillin Sod/ Tazobactam Sod 2.25 gm/Sodium Chloride 50 ml @ 100 mls/hr Q8HRS IV Last administered on 10/09/18at 05:41; Start 10/09/18 at 00:00 Vancomycin HCl 1.5 gm/Sodium Chloride 500 ml @ 250 mls/hr 1X ONCE IV Last administered on 10/09/18at 01:12; Start 10/09/18 at 00:30; Stop 10/09/18 at 02:29 ; Status DC Active Scripts Active Lisinopril 10 Mg Tablet 10 Mg PO DAILY 30 Days Metoprolol Succinate ( Xl ) (Metoprolol Succinate) 25 Mg Tab.er.24h 25 Mg PO DAILY 30 Days [Pantoprazole] 40 MG Tablet.dr 40 Mg PO BIDAC 30 Days [Darbepoetin Napoleon In Polysorbat] 60 MCG/0.3 ML Disp.syrin 60 Mcg SQ WEEKLYHS 7 Days Poly-Iron (Iron Polysaccharides Complex) 150 Mg Capsule 150 Mg PO BID66 30 Days Allergies Allergies: Coded Allergies: No Known Drug Allergies (Unverified , 08/14/18) ROS Review of System As per HPI Physical Exam Physical Exam GEN:Mild distress HEEN: OM moist NECK: Supple CVS: RRR RESP: CTA, Acc Muscle use + GI: Soft, NT : No CVA tenderness, No Suprapubic Tenderness SP Catheter + Skin No rash Neuro- AXO X3 Vital Signs Vital Signs Date Time Temp Pulse Resp B/P (MAP) Pulse Ox O2 Delivery O2 Flow Rate FiO2 10/09/18 07:00 98.2 110 20 163/79 (107) 91 Room Air 98.2 Assessment & Plan ESRD- On hd TTS- [facility] Today as Ordered, Discussed with maintenance custodian Hyperkalemia - HD today as ordered Shortness of Breath CXr reviewed On Abx as per primary HTN- Home BP meds HD today with UF Pericardial effusion without clinical tamponade s/p pericardial window 09/10 - drained approximately 400 mls of cloudy fluid from the pericardial space. Anemia- Multiple Hospitalizations Hgb has been as low as 2.9 Dx with GI bleed with GDA embolization CLIFF as per protocol Hx of Pleural effusion s/p chest tube 09/12 H/o MSSA sepsis - treated - RADHA 07/10 neg. -- Labs Labs Laboratory Tests Test 10/08/18 22:54 10/09/18 00:04 White Blood Count 8.2 x10^3/uL (4.0-11.0) Red Blood Count 3.35 x10^6/uL (4.30-5.70) Hemoglobin 9.7 g/dL (13.0-17.5) Hematocrit 30.0 % (39.0-53.0) Mean Corpuscular Volume 90 fL (79-100) Mean Corpuscular Hemoglobin 29 pg (25-35) Mean Corpuscular Hemoglobin Concent 32 g/dL (31-37) Red Cell Distribution Width 20.6 % (11.5-14.5) Platelet Count 275 x10^3/uL (140-400) Neutrophils (%) (Auto) 63 % (31-73) Lymphocytes (%) (Auto) 14 % (24-48) Monocytes (%) (Auto) 10 % (0-9) Eosinophils (%) (Auto) 12 % (0-3) Basophils (%) (Auto) 1 % (0-3) Neutrophils # (Auto) 5.2 x10^3uL (1.8-7.7) Lymphocytes # (Auto) 1.2 x10^3/uL (1.0-4.8) Monocytes # (Auto) 0.8 x10^3/uL (0.0-1.1) Eosinophils # (Auto) 0.9 x10^3/uL (0.0-0.7) Basophils # (Auto) 0.1 x10^3/uL (0.0-0.2) Platelet Estimate Adequate (ADEQUATE) Large Platelets Occ Polychromasia Slight Anisocytosis Slight Ovalocytes Occ Stomatocytes Occ Prothrombin Time 14.4 SEC (11.7-14.0) Prothromb Time International Ratio 1.2 (0.8-1.1) Sodium Level 137 mmol/L (136-145) Potassium Level 5.6 mmol/L (3.5-5.1) Chloride Level 101 mmol/L (98-107) Carbon Dioxide Level 24 mmol/L (21-32) Anion Gap 12 (6-14) Blood Urea Nitrogen 67 mg/dL (8-26) Creatinine 7.5 mg/dL (0.7-1.3) Estimated GFR (Cockcroft-Gault) 7.6 BUN/Creatinine Ratio 9 (6-20) Glucose Level 103 mg/dL (70-99) Calcium Level 8.7 mg/dL (8.5-10.1) Total Bilirubin 0.3 mg/dL (0.2-1.0) Aspartate Amino Transf (AST/SGOT) 78 U/L (15-37) Alanine Aminotransferase (ALT/SGPT) 91 U/L (16-63) Alkaline Phosphatase 127 U/L (46-116) Troponin I Quantitative < 0.017 ng/mL (0.000-0.055) RN-Wyb-C-Type Natriuretic Peptide > 47236 pg/mL (0-124) Total Protein 8.0 g/dL (6.4-8.2) Albumin 2.5 g/dL (3.4-5.0) Albumin/Globulin Ratio 0.5 (1.0-1.7) Lactic Acid Level 0.7 mmol/L (0.4-2.0) Laboratory Tests Test 10/08/18 22:54 10/09/18 00:04 White Blood Count 8.2 x10^3/uL (4.0-11.0) Red Blood Count 3.35 x10^6/uL (4.30-5.70) Hemoglobin 9.7 g/dL (13.0-17.5) Hematocrit 30.0 % (39.0-53.0) Mean Corpuscular Volume 90 fL (79-100) Mean Corpuscular Hemoglobin 29 pg (25-35) Mean Corpuscular Hemoglobin Concent 32 g/dL (31-37) Red Cell Distribution Width 20.6 % (11.5-14.5) Platelet Count 275 x10^3/uL (140-400) Neutrophils (%) (Auto) 63 % (31-73) Lymphocytes (%) (Auto) 14 % (24-48) Monocytes (%) (Auto) 10 % (0-9) Eosinophils (%) (Auto) 12 % (0-3) Basophils (%) (Auto) 1 % (0-3) Neutrophils # (Auto) 5.2 x10^3uL (1.8-7.7) Lymphocytes # (Auto) 1.2 x10^3/uL (1.0-4.8) Monocytes # (Auto) 0.8 x10^3/uL (0.0-1.1) Eosinophils # (Auto) 0.9 x10^3/uL (0.0-0.7) Basophils # (Auto) 0.1 x10^3/uL (0.0-0.2) Platelet Estimate Adequate (ADEQUATE) Large Platelets Occ Polychromasia Slight Anisocytosis Slight Ovalocytes Occ Stomatocytes Occ Prothrombin Time 14.4 SEC (11.7-14.0) Prothromb Time International Ratio 1.2 (0.8-1.1) Sodium Level 137 mmol/L (136-145) Potassium Level 5.6 mmol/L (3.5-5.1) Chloride Level 101 mmol/L (98-107) Carbon Dioxide Level 24 mmol/L (21-32) Anion Gap 12 (6-14) Blood Urea Nitrogen 67 mg/dL (8-26) Creatinine 7.5 mg/dL (0.7-1.3) Estimated GFR (Cockcroft-Gault) 7.6 BUN/Creatinine Ratio 9 (6-20) Glucose Level 103 mg/dL (70-99) Calcium Level 8.7 mg/dL (8.5-10.1) Total Bilirubin 0.3 mg/dL (0.2-1.0) Aspartate Amino Transf (AST/SGOT) 78 U/L (15-37) Alanine Aminotransferase (ALT/SGPT) 91 U/L (16-63) Alkaline Phosphatase 127 U/L (46-116) Troponin I Quantitative < 0.017 ng/mL (0.000-0.055) LZ-Riw-R-Type Natriuretic Peptide > 04983 pg/mL (0-124) Total Protein 8.0 g/dL (6.4-8.2) Albumin 2.5 g/dL (3.4-5.0) Albumin/Globulin Ratio 0.5 (1.0-1.7) Lactic Acid Level 0.7 mmol/L (0.4-2.0) Review All relevant outside records, renal labs, imaging studies, telemetry/EKG's were reviewed. Images Images CxR Findings suggests diffuse interstitial pulmonary edema or atypical/viral infection. Confluent patchy opacities in the right lung may be secondary to pneumonia with underlying trace right pleural effusion. MARIYA NORMAN MD Oct 09, 2018 10:22
[2018-10-09] MEDS ORDERED: IV NORMAL SALINE 1000ML BAG 1,000 ML IV PRN ×2 (10:39)
[2018-10-09] MEDS ORDERED: DIALYSIS PATIENT. MC PRN ×2 (10:45)
[2018-10-09 11:00] VITALS: BP 158/88
[2018-10-09] MEDS ORDERED: diphenhydrAMINE 50 MG/ML VIAL IVP ONE (11:30)
[2018-10-09] MEDS ORDERED: VANCOMYCIN RANDOM LEVEL. MC ONE ×2 (13:00→20:00)
--- NOTE | 2018-10-09 14:02 | CONS ---
DATE OF CONSULTATION: ATTENDING PHYSICIAN: Dr. Brand. REASON FOR CONSULTATION: Dyspnea. HISTORY OF PRESENT ILLNESS: The patient is a 53-year-old male with history of end-stage renal disease, on hemodialysis; history of COPD, history of CHF, history of recent pericardial window in 08/2018 for pericardial effusion and also left-sided pleural effusions which required chest tube on the left side and removal in August. The patient was brought into the hospital with increased shortness of breath. He has some anxiety spells as well. He received Ativan as a result. I was unable to obtain much history from the patient while he was undergoing dialysis. I have reviewed the patient's imaging studies. His chest x-ray was consistent with bilateral diffuse interstitial infiltrates suggesting interstitial edema. Currently, ultrafiltration has been planned. PAST MEDICAL HISTORY: Significant for history of COPD, history of congestive heart failure, history of recent subacute pericardial effusion, status post pericardial window. History of a left-sided pleural effusion, status post left chest tube and removal. History of small pulmonary embolism in July, which was subsequently resolved and he was not treated due to severe anemia and GI bleeding. Had no DVT. No history of IVC filter. History of end-stage renal disease, on hemodialysis. History of underlying COPD. History of cavitary nodules, which are related to Staphylococcus infection and overall improved. History of a Gram-negative michel sepsis. PAST SURGICAL HISTORY: As discussed above. SOCIAL HISTORY: History of tobacco use. ALLERGIES: None. MEDICATIONS: Reviewed as listed in the MRAD including antibiotic, Zosyn. PHYSICAL EXAMINATION: GENERAL: He is sleepy, received Ativan. VITAL SIGNS: Blood pressure stable, pulse ox 93% on room air. He is afebrile. HEENT: Sclerae nonicteric. NECK: Supple. LUNGS: With diminished breath sounds at the bases. CARDIOVASCULAR: Regular rate and rhythm. ABDOMEN: Soft. EXTREMITIES: With trace pitting edema. LABORATORY DATA: Reviewed. White cell count 8.2, hemoglobin 9.7 and platelets are 275. BUN 67 and creatinine 7.5. ProBNP is more than 35,000. Albumin is 2.5. IMPRESSION: 1. Acute on chronic hypoxic respiratory failure secondary to acute diastolic congestive heart failure. Clinically, pneumonia less likely. 2. The patient with history of congestive heart failure. 3. The patient with chronic obstructive airway disease. 4. History of moderate to large pericardial effusion, status post pericardial window in August of this year. 5. History of left-sided pleural effusion, status post left chest tube and removal in 08/2018. 6. End-stage renal disease, on hemodialysis. 7. History of cavitary nodules, which were related to Staphylococcus infection. Overall, improved. RECOMMENDATIONS: 1. Continue hemodialysis with ultrafiltration. 2. Follow chest x-ray after a couple dialysis sessions to see an improvement in chest x-ray. 3. Continue present oxygen. 4. Empiric vancomycin and Zosyn for now. 5. Bronchodilators will be added. 6. We will follow along with you. RUDI DAVALOS MD DR: RAUDEL/macey JOB#: [id number] / [id number]
--- NOTE | 2018-10-09 14:48 | PDOC ---
SANJEEV PASTOR TEST EQUIPMENT MECHANIC 10/09/18 1448: CARDIO Progress Notes Date and Time Date of Service 10/09/2018 Time of Evaluation 1330 Subjective Subjective: No Chest Pain, No shortness of breath, Other (sedated just go ativan due to restlessness) Vitals Vitals Vital Signs Date Time Temp Pulse Resp B/P (MAP) Pulse Ox O2 Delivery O2 Flow Rate FiO2 10/09/18 11:00 98.4 113 20 158/88 (111) 93 Room Air 98.4 Weight Weight [ ] Input and Output Intake and Output Intake and Output 10/09/18 06:59 Intake Total 50 ml Output Total 75 ml Balance -25 ml IV Total 50 ml Output Urine Total 75 ml # Bowel Movements 1 Laboratory Labs Laboratory Tests Test 10/08/18 22:54 10/09/18 00:04 White Blood Count 8.2 x10^3/uL (4.0-11.0) Red Blood Count 3.35 x10^6/uL (4.30-5.70) Hemoglobin 9.7 g/dL (13.0-17.5) Hematocrit 30.0 % (39.0-53.0) Mean Corpuscular Volume 90 fL (79-100) Mean Corpuscular Hemoglobin 29 pg (25-35) Mean Corpuscular Hemoglobin Concent 32 g/dL (31-37) Red Cell Distribution Width 20.6 % (11.5-14.5) Platelet Count 275 x10^3/uL (140-400) Neutrophils (%) (Auto) 63 % (31-73) Lymphocytes (%) (Auto) 14 % (24-48) Monocytes (%) (Auto) 10 % (0-9) Eosinophils (%) (Auto) 12 % (0-3) Basophils (%) (Auto) 1 % (0-3) Neutrophils # (Auto) 5.2 x10^3uL (1.8-7.7) Lymphocytes # (Auto) 1.2 x10^3/uL (1.0-4.8) Monocytes # (Auto) 0.8 x10^3/uL (0.0-1.1) Eosinophils # (Auto) 0.9 x10^3/uL (0.0-0.7) Basophils # (Auto) 0.1 x10^3/uL (0.0-0.2) Platelet Estimate Adequate (ADEQUATE) Large Platelets Occ Polychromasia Slight Anisocytosis Slight Ovalocytes Occ Stomatocytes Occ Prothrombin Time 14.4 SEC (11.7-14.0) Prothromb Time International Ratio 1.2 (0.8-1.1) Sodium Level 137 mmol/L (136-145) Potassium Level 5.6 mmol/L (3.5-5.1) Chloride Level 101 mmol/L (98-107) Carbon Dioxide Level 24 mmol/L (21-32) Anion Gap 12 (6-14) Blood Urea Nitrogen 67 mg/dL (8-26) Creatinine 7.5 mg/dL (0.7-1.3) Estimated GFR (Cockcroft-Gault) 7.6 BUN/Creatinine Ratio 9 (6-20) Glucose Level 103 mg/dL (70-99) Calcium Level 8.7 mg/dL (8.5-10.1) Total Bilirubin 0.3 mg/dL (0.2-1.0) Aspartate Amino Transf (AST/SGOT) 78 U/L (15-37) Alanine Aminotransferase (ALT/SGPT) 91 U/L (16-63) Alkaline Phosphatase 127 U/L (46-116) Troponin I Quantitative < 0.017 ng/mL (0.000-0.055) RC-Xrk-[id number]-Type Natriuretic Peptide > 85980 pg/mL (0-124) Total Protein 8.0 g/dL (6.4-8.2) Albumin 2.5 g/dL (3.4-5.0) Albumin/Globulin Ratio 0.5 (1.0-1.7) Lactic Acid Level 0.7 mmol/L (0.4-2.0) Physical Exam HEENT: Neck Supple W Full Motion Chest: Symmetric LUNGS: Other (basilar crackles) Heart: RRR (SR) Abdomen: Soft N/T Extremities: No Calf Tenderness Neurology: other (sedated) Assessment Assessment This is a 53 yo male admitted for complains of SOA. He is known to our cardiology group and was seen few days and was discharged. He has been seen recently with noted procedures such as thoracentesis, pericardial window and was also recently treated for bacteremia. He is currently sedated with ativan due to restlessness with SOA. He is currently in the porcess of HD and instead of 4 L removal it will be 5 L for today,. He has not missed his treatments. No noted complains of chest pain but was noted to be significant anxious and restless. No GI symptoms noted as well. Assessments 1. Acute on chronic diastolic/systolic CHF: recurrent, will need to rule out ischemic component 2. Presumed NICM: last EF at 35% 3. ESRD 4. Chronic obstructive uropathy/retention: Holloway in place chronic. 5. COPD with cavitary nodules 9. Chronic Anemia: Hgb stable. Hx of GI bleed with GDA coiling and small PE resolved. Recommendations 1. Will consider for ischemic workup given the multiple recurrences of acute CHF. Will discuss with primary psych tech. 2. Potentially may need to challenge with plavix and note response to it given his hx of GI bleed requiring coiling and transfusion 3. Continue with prior hospital regimen with secondary prevention, BP regimen. 4. Fluid off loading per HD, planned 5 L off today. MARIANN TIRADO MD 10/09/18 9985: CARDIO Progress Notes Plan Plan Pt. seen and examined. Agree with above ACTING PROFESSOR note. Will plan for [facility] tomorrow to rule out CAD and check volume status. Thanks. Toy f/u. SANJEEV PASTOR APRN Oct 09, 2018 14:48 MARIANN TIRADO MD Oct 09, 2018 18:25
[2018-10-09 15:00] VITALS: BP 116/71
[2018-10-09] MEDS: METOPROLOL SUCC 24HR ER 25 MG TAB.ER.24H. PO SCH (15:44)
[2018-10-09] MEDS: LISINOPRIL 10 MG TABLET PO SCH (15:44)
[2018-10-09] MEDS: PANTOPRAZOLE 40 MG TABLET.DR. PO SCH (16:35)
[2018-10-09 19:00] VITALS: BP 135/78
[2018-10-09] MEDS: IPRATRPIUM/ALBUTEROL 0.5/2.5MG 3 ML NEBU. NEB SCH (20:14)
[2018-10-09 22:51] VITALS: BP 126/76
[2018-10-10] VITALS (7 sets, daily range): BP systolic 109–137; BP diastolic 53–79
[2018-10-10] MEDS: PIPERACILLIN/TAZOBACTAM 2.25 GM in IV NORMAL SALINE 50ML 50 ML IV SCH ×3 (05:59→22:02)
[2018-10-10] MEDS: IPRATRPIUM/ALBUTEROL 0.5/2.5MG 3 ML NEBU. NEB SCH ×4 (07:20→19:56)
[2018-10-10] MEDS: PANTOPRAZOLE 40 MG TABLET.DR. PO SCH ×2 (07:30→16:15)
[2018-10-10] MEDS ORDERED: HEPARIN for ARTERIAL LINE 1,500 ML ONE (07:44)
[2018-10-10] MEDS ORDERED: IODIXANOL 320 MG/ML 100 ML VIAL. ONE (07:44)
[2018-10-10] MEDS ORDERED: LIDOCAINE 1% Multi-Dose 20 ML VIAL. ONE (07:44)
[2018-10-10 07:59] LABS: BASO # 0.1 x10^3/uL (0.0-0.2); BASO % 1 % (0-3); EOS # 0.9 x10^3/uL (0.0-0.7); EOS % 11 % (0-3); HEMATOCRIT 30.5 % (39.0-53.0); HEMOGLOBIN 9.8 g/dL (13.0-17.5); LYMPH # 1.1 x10^3/uL (1.0-4.8); LYMPH % 14 % (24-48); MEAN CORPUSCULAR HEMOGLOBIN 29 pg (25-35); MEAN CORPUSCULAR HGB CONC 32 g/dL (31-37); MEAN CORPUSCULAR VOLUME 90 fL (79-100); MONO # 1.2 x10^3/uL (0.0-1.1); MONO % 14 % (0-9); NEUT # 4.9 x10^3uL (1.8-7.7); NEUT % 60 % (31-73); PLATELET COUNT 281 x10^3/uL (140-400); RED BLOOD COUNT 3.39 x10^6/uL (4.30-5.70); RED CELL DISTRIBUTION WIDTH 20.5 % (11.5-14.5); WHITE BLOOD COUNT 8.3 x10^3/uL (4.0-11.0)
[2018-10-10 08:18] LABS: ALBUMIN 2.4 g/dL (3.4-5.0); CALCIUM 8.4 mg/dL (8.5-10.1); CREATININE 6.1 mg/dL (0.7-1.3); GFR 9.7; PHOSPHORUS 7.2 mg/dL (2.6-4.7)
--- NOTE | 2018-10-10 08:58 | PDOC ---
Provider Note Provider Note 10/10/2018 0840 Pt is AOx3, SOA much better post HD. Denies discomfort. Hgb Stable at 9.8. K 6.0, no significant and will possibly need another HD post LHC. He refused LHC initially this am. I discussed with him about CM and CAD and CHF. I answered his questions and risks and benefits explained and agreeable to proceed. Discussed with nephrology and pt will have another HD post LHC. SANJEEV PASTOR APRN Oct 10, 2018 08:58
[2018-10-10] MEDS: METOPROLOL SUCC 24HR ER 25 MG TAB.ER.24H. PO SCH (09:00)
[2018-10-10] MEDS: LISINOPRIL 10 MG TABLET PO SCH (09:00)
[2018-10-10] MEDS ORDERED: MIDAZOLAM HCL/PF 2 MG/2 ML VIAL. ONE (09:18)
[2018-10-10] MEDS ORDERED: fentaNYL PF VIAL 100 MCG/2 ML VIAL ONE (09:18)
--- NOTE | 2018-10-10 09:35 | PDOC ---
MODERATE SEDATION ASSESSMENT RISKS/ALTERNATIVES Risks/Alternatives Risks and alternatives of this type of sedation and procedure discussed with: RISK/ALTERNATIVES: Patient H & P ON CHART H & P H & P on chart and reviewed for co-morbid conditions and appropriate labs. H&P ON CHART: Yes STATUS PREG STATUS ASSESSED: N/A MEDS/ALLERGIES REVIEWED Meds/Allergies Reviewed Medications and Allergies including time and route of recently administered narcotics and sedatives. MEDS/ALLERGIES REVIEWED: Yes ASA RATING ASA RATING: II AIRWAY ASSESSMENT Airway Assessment Airway patency, oral function limitations, presence of caps, crowns, dentures, partials, and ability to extend neck assessed. AIRWAY ASSESSMENT: Yes MALLAMPATI SCORE MALLAMPATI SCORE: II PRE-SEDATION ASSESSMENT PRE-SEDATION ASSESSMENT: Yes OSCAR CORMIER MD Oct 10, 2018 09:35
[2018-10-10] MEDS ORDERED: LIDOCAINE 1% Multi-Dose 20 ML VIAL. INJ ONE (10:00)
[2018-10-10] MEDS ORDERED: fentaNYL PF VIAL 100 MCG/2 ML VIAL IV ONE (10:00)
[2018-10-10] MEDS ORDERED: MIDAZOLAM HCL/PF 2 MG/2 ML VIAL. IV ONE (10:00)
[2018-10-10] MEDS ORDERED: IODIXANOL 320 MG/ML 100 ML VIAL. IART ONE (10:00)
[2018-10-10] MEDS ORDERED: 0.9 % SODIUM CHLORIDE 10 ML DISP.SYRIN. IV PRN (10:15)
[2018-10-10] MEDS ORDERED: NITROGLYCERIN SUBLINGUAL 0.4 MG BOTTLE OF 25. SL PRN (10:15)
[2018-10-10] MEDS ORDERED: IV NORMAL SALINE 1000ML BAG 1,000 ML IV SCH (10:15)
--- NOTE | 2018-10-10 10:58 | PDOC ---
PROGRESS NOTES Chief Complaint Chief Complaint Acute combined CHF Pulmonary infiltrate- likely HCAP Sepsis Pleural Effusion H/o recent pericardial effusion with pericardial window (08/2018) ESRD Pulmonary Edema Anemia Malnutrition Transaminitis History of Present Illness History of Present Illness Pt was seen and examined in room He was resting comfortably in bed, watching TV, NAD Pt reported that he was SOB upon initial presentation, but is feeling better He noted that recently he was treated for a pericardial effusion, "fluid on my heart" Vitals Vitals Vital Signs Date Time Temp Pulse Resp B/P (MAP) Pulse Ox O2 Delivery O2 Flow Rate FiO2 10/10/18 10:13 91 12 99 Nasal Cannula 2.0 10/10/18 07:00 98.3 127/70 (89) 98.3 Physical Exam General: Alert, Cooperative, No acute distress Heart: Regular rate, No murmurs Lungs: Crackles Abdomen: Normal bowel sounds, Soft, No tenderness, No hepatosplenomegaly, No masses, Other (Suprapubic catheter in place) Extremities: No clubbing, No cyanosis, No tenderness/swelling, Other ( Decreased pulses and 1+ edema) Skin: No significant lesion, Other (tunnel catheter on L side for HD) Labs LABS Laboratory Tests Test 10/09/18 20:10 10/10/18 06:55 Random Vancomycin Level 27.3 mcg/mL White Blood Count 8.3 x10^3/uL (4.0-11.0) Red Blood Count 3.39 x10^6/uL (4.30-5.70) Hemoglobin 9.8 g/dL (13.0-17.5) Hematocrit 30.5 % (39.0-53.0) Mean Corpuscular Volume 90 fL (79-100) Mean Corpuscular Hemoglobin 29 pg (25-35) Mean Corpuscular Hemoglobin Concent 32 g/dL (31-37) Red Cell Distribution Width 20.5 % (11.5-14.5) Platelet Count 281 x10^3/uL (140-400) Neutrophils (%) (Auto) 60 % (31-73) Lymphocytes (%) (Auto) 14 % (24-48) Monocytes (%) (Auto) 14 % (0-9) Eosinophils (%) (Auto) 11 % (0-3) Basophils (%) (Auto) 1 % (0-3) Neutrophils # (Auto) 4.9 x10^3uL (1.8-7.7) Lymphocytes # (Auto) 1.1 x10^3/uL (1.0-4.8) Monocytes # (Auto) 1.2 x10^3/uL (0.0-1.1) Eosinophils # (Auto) 0.9 x10^3/uL (0.0-0.7) Basophils # (Auto) 0.1 x10^3/uL (0.0-0.2) Sodium Level 137 mmol/L (136-145) Potassium Level 6.0 mmol/L (3.5-5.1) Chloride Level 99 mmol/L (98-107) Carbon Dioxide Level 26 mmol/L (21-32) Anion Gap 12 (6-14) Blood Urea Nitrogen 49 mg/dL (8-26) Creatinine 6.1 mg/dL (0.7-1.3) Estimated GFR (Cockcroft-Gault) 9.7 Glucose Level 90 mg/dL (70-99) Calcium Level 8.4 mg/dL (8.5-10.1) Phosphorus Level 7.2 mg/dL (2.6-4.7) Albumin 2.4 g/dL (3.4-5.0) Review of Systems Review of Systems Pt reports very mild SOB Denies CP, MOON, n/v/d Assessment and Plan Assessmemt and Plan Problems Medical Problems: (1) Dyspnea Status: Acute Assessment Acute combined CHF Pulmonary infiltrate- likely HCAP Sepsis Pleural Effusion H/o recent pericardial effusion with pericardial window (08/2018) ESRD Pulmonary Edema Anemia Malnutrition Transaminitis Plan Heart cath today per cardiology Continue HD with ultrafiltration IV ABx for HCAP Strict fluid restriction home meds frequent labs PT/OT Appreciate subspecialty recs- renal, cardiology, pulm Comment Review of Relevant I have reviewed the following items allyson (where applicable) has been applied. Labs Laboratory Tests Test 10/08/18 22:54 10/09/18 00:04 10/09/18 20:10 10/10/18 06:55 White Blood Count 8.2 x10^3/uL (4.0-11.0) 8.3 x10^3/uL (4.0-11.0) Red Blood Count 3.35 x10^6/uL (4.30-5.70) 3.39 x10^6/uL (4.30-5.70) Hemoglobin 9.7 g/dL (13.0-17.5) 9.8 g/dL (13.0-17.5) Hematocrit 30.0 % (39.0-53.0) 30.5 % (39.0-53.0) Mean Corpuscular Volume 90 fL (79-100) 90 fL (79-100) Mean Corpuscular Hemoglobin 29 pg (25-35) 29 pg (25-35) Mean Corpuscular Hemoglobin Concent 32 g/dL (31-37) 32 g/dL (31-37) Red Cell Distribution Width 20.6 % (11.5-14.5) 20.5 % (11.5-14.5) Platelet Count 275 x10^3/uL (140-400) 281 x10^3/uL (140-400) Neutrophils (%) (Auto) 63 % (31-73) 60 % (31-73) Lymphocytes (%) (Auto) 14 % (24-48) 14 % (24-48) Monocytes (%) (Auto) 10 % (0-9) 14 % (0-9) Eosinophils (%) (Auto) 12 % (0-3) 11 % (0-3) Basophils (%) (Auto) 1 % (0-3) 1 % (0-3) Neutrophils # (Auto) 5.2 x10^3uL (1.8-7.7) 4.9 x10^3uL (1.8-7.7) Lymphocytes # (Auto) 1.2 x10^3/uL (1.0-4.8) 1.1 x10^3/uL (1.0-4.8) Monocytes # (Auto) 0.8 x10^3/uL (0.0-1.1) 1.2 x10^3/uL (0.0-1.1) Eosinophils # (Auto) 0.9 x10^3/uL (0.0-0.7) 0.9 x10^3/uL (0.0-0.7) Basophils # (Auto) 0.1 x10^3/uL (0.0-0.2) 0.1 x10^3/uL (0.0-0.2) Platelet Estimate Adequate (ADEQUATE) Large Platelets Occ Polychromasia Slight Anisocytosis Slight Ovalocytes Occ Stomatocytes Occ Prothrombin Time 14.4 SEC (11.7-14.0) Prothromb Time International Ratio 1.2 (0.8-1.1) Sodium Level 137 mmol/L (136-145) 137 mmol/L (136-145) Potassium Level 5.6 mmol/L (3.5-5.1) 6.0 mmol/L (3.5-5.1) Chloride Level 101 mmol/L (98-107) 99 mmol/L (98-107) Carbon Dioxide Level 24 mmol/L (21-32) 26 mmol/L (21-32) Anion Gap 12 (6-14) 12 (6-14) Blood Urea Nitrogen 67 mg/dL (8-26) 49 mg/dL (8-26) Creatinine 7.5 mg/dL (0.7-1.3) 6.1 mg/dL (0.7-1.3) Estimated GFR (Cockcroft-Gault) 7.6 9.7 BUN/Creatinine Ratio 9 (6-20) Glucose Level 103 mg/dL (70-99) 90 mg/dL (70-99) Calcium Level 8.7 mg/dL (8.5-10.1) 8.4 mg/dL (8.5-10.1) Total Bilirubin 0.3 mg/dL (0.2-1.0) Aspartate Amino Transf (AST/SGOT) 78 U/L (15-37) Alanine Aminotransferase (ALT/SGPT) 91 U/L (16-63) Alkaline Phosphatase 127 U/L (46-116) Troponin I Quantitative < 0.017 ng/mL (0.000-0.055) QA-Llf-N-Type Natriuretic Peptide > 61778 pg/mL (0-124) Total Protein 8.0 g/dL (6.4-8.2) Albumin 2.5 g/dL (3.4-5.0) 2.4 g/dL (3.4-5.0) Albumin/Globulin Ratio 0.5 (1.0-1.7) Lactic Acid Level 0.7 mmol/L (0.4-2.0) Random Vancomycin Level 27.3 mcg/mL Phosphorus Level 7.2 mg/dL (2.6-4.7) Laboratory Tests Test 10/09/18 20:10 10/10/18 06:55 Random Vancomycin Level 27.3 mcg/mL White Blood Count 8.3 x10^3/uL (4.0-11.0) Red Blood Count 3.39 x10^6/uL (4.30-5.70) Hemoglobin 9.8 g/dL (13.0-17.5) Hematocrit 30.5 % (39.0-53.0) Mean Corpuscular Volume 90 fL (79-100) Mean Corpuscular Hemoglobin 29 pg (25-35) Mean Corpuscular Hemoglobin Concent 32 g/dL (31-37) Red Cell Distribution Width 20.5 % (11.5-14.5) Platelet Count 281 x10^3/uL (140-400) Neutrophils (%) (Auto) 60 % (31-73) Lymphocytes (%) (Auto) 14 % (24-48) Monocytes (%) (Auto) 14 % (0-9) Eosinophils (%) (Auto) 11 % (0-3) Basophils (%) (Auto) 1 % (0-3) Neutrophils # (Auto) 4.9 x10^3uL (1.8-7.7) Lymphocytes # (Auto) 1.1 x10^3/uL (1.0-4.8) Monocytes # (Auto) 1.2 x10^3/uL (0.0-1.1) Eosinophils # (Auto) 0.9 x10^3/uL (0.0-0.7) Basophils # (Auto) 0.1 x10^3/uL (0.0-0.2) Sodium Level 137 mmol/L (136-145) Potassium Level 6.0 mmol/L (3.5-5.1) Chloride Level 99 mmol/L (98-107) Carbon Dioxide Level 26 mmol/L (21-32) Anion Gap 12 (6-14) Blood Urea Nitrogen 49 mg/dL (8-26) Creatinine 6.1 mg/dL (0.7-1.3) Estimated GFR (Cockcroft-Gault) 9.7 Glucose Level 90 mg/dL (70-99) Calcium Level 8.4 mg/dL (8.5-10.1) Phosphorus Level 7.2 mg/dL (2.6-4.7) Albumin 2.4 g/dL (3.4-5.0) Microbiology 10/09/18 Blood Culture - Preliminary, Resulted NO GROWTH AFTER 1 DAY Medications Current Medications Lorazepam (Ativan) 2 mg 1X ONCE PO Last administered on 10/08/18at 23:09; Start 10/08/18 at 22:30; Stop 10/08/18 at 22:31; Status DC Vancomycin HCl (Vanco Per Pharmacy) 1 each PRN DAILY PRN MC SEE COMMENTS Last administered on 10/09/18at 20:53; Start 10/08/18 at 23:45 Piperacillin Sod/ Tazobactam Sod (Zosyn Per Pharmacy) 1 each PRN DAILY PRN MC SEE COMMENTS; Start 10/08/18 at 23:45 Furosemide (Lasix) 60 mg 1X ONCE IVP Last administered on 10/09/18at 00:13; Start 10/09/18 at 00:00; Stop 10/09/18 at 00:01; Status DC Piperacillin Sod/ Tazobactam Sod 2.25 gm/Sodium Chloride 50 ml @ 100 mls/hr Q8HRS IV Last administered on 10/10/18at 05:59; Start 10/09/18 at 00:00 Vancomycin HCl 1.5 gm/Sodium Chloride 500 ml @ 250 mls/hr 1X ONCE IV Last administered on 10/09/18at 01:12; Start 10/09/18 at 00:30; Stop 10/09/18 at 02:29 ; Status DC Darbepoetin Napoleon (Aranesp) 60 mcg WEEKLYHS SQ ; Start 10/11/18 at 21:00 Sodium Chloride 1,000 ml @ 1,000 mls/hr Q1H PRN IV hypotension; Start 10/09/18 at 10:39; Stop 10/09/18 at 16:38; Status DC Sodium Chloride 1,000 ml @ 400 mls/hr Q2H30M PRN IV PATENCY; Start 10/09/18 at 10:39; Stop 10/09/18 at 22:38; Status DC Info (PHARMACY MONITORING -- do not chart) 1 each PRN DAILY PRN MC SEE COMMENTS ; Start 10/09/18 at 10:45; Stop 10/09/18 at 10:45; Status DC Info (PHARMACY MONITORING -- do not chart) 1 each PRN DAILY PRN MC SEE COMMENTS ; Start 10/09/18 at 10:45 Diphenhydramine HCl (Benadryl) 50 mg 1X ONCE IVP Last administered on at 11:30; Start 10/09/18 at 11:30; Stop 10/09/18 at 11:31; Status DC Lorazepam (Ativan) 1 mg PRN Q4HRS PRN IV ANXIETY / AGITATION Last administered on 10/09/18at 11:38; Start 10/09/18 at 11:30 Vancomycin HCl (Vancomycin Random Level) 1 each 1X ONCE MC Last administered on 10/09/18at 13:00; Start 10/09/18 at 13:00; Stop 10/09/18 at 13:01; Status DC Albuterol/ Ipratropium (Duoneb) 3 ml RTQID NEB Last administered on 10/10/18at 07:20; Start 10/09/18 at 16:00 Vancomycin HCl (Vancomycin Random Level) 1 each 1X ONCE MC Last administered on 10/09/18at 20:00; Start 10/09/18 at 20:00; Stop 10/09/18 at 20:01; Status DC Lisinopril (Prinivil) 10 mg DAILY PO Last administered on 10/09/18at 15:44; Start 10/09/18 at 15:30 Metoprolol Succinate (Toprol Xl) 25 mg DAILY PO Last administered on 10/09/18at 15:44; Start 10/09/18 at 15:30 Pantoprazole Sodium (Protonix) 40 mg BIDAC PO Last administered on 10/09/18at 16 :35; Start 10/09/18 at 16:30 Iodixanol (Visipaque 320) 100 ml STK-MED ONCE .ROUTE ; Start 10/10/18 at 07:44; Stop 10/10/18 at 07:45; Status DC Lidocaine HCl (Lidocaine 1% 20ml Vial) 20 ml STK-MED ONCE .ROUTE ; Start at 07:44; Stop 10/10/18 at 07:45; Status DC Heparin Sodium/ Sodium Chloride 1,500 ml @ As Directed STK-MED ONCE .ROUTE ; Start 10/10/18 at 07:44; Stop 10/10/18 at 07:45; Status DC Fentanyl Citrate (Fentanyl 2ml Vial) 100 mcg STK-MED ONCE .ROUTE ; Start at 09:18; Stop 10/10/18 at 09:19; Status DC Midazolam HCl (Versed) 2 mg STK-MED ONCE .ROUTE ; Start 10/10/18 at 09:18; Stop 10/10/18 at 09:19; Status DC Heparin Sodium/ Sodium Chloride (HEPARIN for ARTERIAL LINE FLUSH) 1,000 unit 1X ONCE IART Last administered on 10/10/18at 10:00; Start 10/10/18 at 10:00; Stop 10/10/18 at 10:01; Status DC Midazolam HCl (Versed) 2 mg 1X ONCE IV Last administered on 10/10/18at 10:00; Start 10/10/18 at 10:00; Stop 10/10/18 at 10:01; Status DC Fentanyl Citrate (Fentanyl 2ml Vial) 100 mcg 1X ONCE IV Last administered on at 10:00; Start 10/10/18 at 10:00; Stop 10/10/18 at 10:01; Status DC Iodixanol (Visipaque 320) 100 ml 1X ONCE IART Last administered on 10/10/18at 10:00; Start 10/10/18 at 10:00; Stop 10/10/18 at 10:01; Status DC Lidocaine HCl (Lidocaine 1% 20ml Vial) 20 ml 1X ONCE INJ Last administered on 10/10/18at 10:00; Start 10/10/18 at 10:00; Stop 10/10/18 at 10:01; Status DC Sodium Chloride (Normal Saline Flush) 3 ml QSHIFT PRN IV AFTER MEDS AND BLOOD DRAWS; Start 10/10/18 at 10:15 Sodium Chloride 1,000 ml @ 60 mls/hr [id number] IV ; Start 10/10/18 at 10:15; Stop 10/10/18 at 13:14 Nitroglycerin (Nitrostat) 0.4 mg PRN Q5MIN PRN SL CHEST PAIN; Start 10/10/18 at 10:15 Active Scripts Active Lisinopril 10 Mg Tablet 10 Mg PO DAILY 30 Days Metoprolol Succinate ( Xl ) (Metoprolol Succinate) 25 Mg Tab.er.24h 25 Mg PO DAILY 30 Days [Pantoprazole] 40 MG Tablet.dr 40 Mg PO BIDAC 30 Days [Darbepoetin Napoleon In Polysorbat] 60 MCG/0.3 ML Disp.syrin 60 Mcg SQ WEEKLYHS 7 Days Poly-Iron (Iron Polysaccharides Complex) 150 Mg Capsule 150 Mg PO BID66 30 Days Vitals/I & O Vital Sign - Last 24 Hours 10/09/18 10/09/18 10/09/18 10/09/18 11:00 15:00 15:39 15:44 Temp 98.4 97.6 98.4 97.6 Pulse 113 121 121 Resp 20 17 B/P (MAP) 158/88 (111) 116/71 (86) 116/71 Pulse Ox 93 90 92 O2 Delivery Room Air Room Air Room Air 10/09/18 10/09/18 10/09/18 10/09/18 15:44 19:00 20:18 20:20 Temp 99.5 99.5 Pulse 121 113 Resp 18 B/P (MAP) 116/71 135/78 (97) Pulse Ox 96 92 O2 Delivery Room Air Room Air Room Air 10/09/18 10/10/18 10/10/18 10/10/18 22:51 03:00 07:00 07:20 Temp 98.4 98.0 98.3 98.4 98.0 98.3 Pulse 113 108 100 Resp 18 18 17 B/P (MAP) 126/76 (93) 137/79 (98) 127/70 (89) Pulse Ox 92 96 94 96 O2 Delivery Room Air Room Air Room Air Room Air 10/10/18 10/10/18 10:00 10:13 Pulse 91 Resp 12 12 Pulse Ox 99 99 O2 Delivery Nasal Cannula Nasal Cannula O2 Flow Rate 2.0 2.0 Intake and Output 10/09/18 10/09/18 10/10/18 15:00 23:00 07:00 Intake Total 230 ml 150 ml Output Total 75 ml Balance 230 ml 150 ml -75 ml KHADAR NICHOLEL K III DO Oct 10, 2018 10:58
--- NOTE | 2018-10-10 11:09 | PDOC ---
PULMONARY PROGRESS NOTES Subjective NO SOA Vitals Vital Signs Date Time Temp Pulse Resp B/P (MAP) Pulse Ox O2 Delivery O2 Flow Rate FiO2 10/10/18 10:13 91 12 99 Nasal Cannula 2.0 10/10/18 07:00 98.3 127/70 (89) 98.3 General: Alert, No acute distress HEENT: Other Lungs: Clear Cardiovascular: S1, S2 Abdomen: Soft, Non-tender Neuro Exam: Alert Extremities: No Edema Skin: Warm Labs Laboratory Tests Test 10/08/18 22:54 10/09/18 00:04 10/09/18 20:10 10/10/18 06:55 White Blood Count 8.2 x10^3/uL (4.0-11.0) 8.3 x10^3/uL (4.0-11.0) Red Blood Count 3.35 x10^6/uL (4.30-5.70) 3.39 x10^6/uL (4.30-5.70) Hemoglobin 9.7 g/dL (13.0-17.5) 9.8 g/dL (13.0-17.5) Hematocrit 30.0 % (39.0-53.0) 30.5 % (39.0-53.0) Mean Corpuscular Volume 90 fL (79-100) 90 fL (79-100) Mean Corpuscular Hemoglobin 29 pg (25-35) 29 pg (25-35) Mean Corpuscular Hemoglobin Concent 32 g/dL (31-37) 32 g/dL (31-37) Red Cell Distribution Width 20.6 % (11.5-14.5) 20.5 % (11.5-14.5) Platelet Count 275 x10^3/uL (140-400) 281 x10^3/uL (140-400) Neutrophils (%) (Auto) 63 % (31-73) 60 % (31-73) Lymphocytes (%) (Auto) 14 % (24-48) 14 % (24-48) Monocytes (%) (Auto) 10 % (0-9) 14 % (0-9) Eosinophils (%) (Auto) 12 % (0-3) 11 % (0-3) Basophils (%) (Auto) 1 % (0-3) 1 % (0-3) Neutrophils # (Auto) 5.2 x10^3uL (1.8-7.7) 4.9 x10^3uL (1.8-7.7) Lymphocytes # (Auto) 1.2 x10^3/uL (1.0-4.8) 1.1 x10^3/uL (1.0-4.8) Monocytes # (Auto) 0.8 x10^3/uL (0.0-1.1) 1.2 x10^3/uL (0.0-1.1) Eosinophils # (Auto) 0.9 x10^3/uL (0.0-0.7) 0.9 x10^3/uL (0.0-0.7) Basophils # (Auto) 0.1 x10^3/uL (0.0-0.2) 0.1 x10^3/uL (0.0-0.2) Platelet Estimate Adequate (ADEQUATE) Large Platelets Occ Polychromasia Slight Anisocytosis Slight Ovalocytes Occ Stomatocytes Occ Prothrombin Time 14.4 SEC (11.7-14.0) Prothromb Time International Ratio 1.2 (0.8-1.1) Sodium Level 137 mmol/L (136-145) 137 mmol/L (136-145) Potassium Level 5.6 mmol/L (3.5-5.1) 6.0 mmol/L (3.5-5.1) Chloride Level 101 mmol/L (98-107) 99 mmol/L (98-107) Carbon Dioxide Level 24 mmol/L (21-32) 26 mmol/L (21-32) Anion Gap 12 (6-14) 12 (6-14) Blood Urea Nitrogen 67 mg/dL (8-26) 49 mg/dL (8-26) Creatinine 7.5 mg/dL (0.7-1.3) 6.1 mg/dL (0.7-1.3) Estimated GFR (Cockcroft-Gault) 7.6 9.7 BUN/Creatinine Ratio 9 (6-20) Glucose Level 103 mg/dL (70-99) 90 mg/dL (70-99) Calcium Level 8.7 mg/dL (8.5-10.1) 8.4 mg/dL (8.5-10.1) Total Bilirubin 0.3 mg/dL (0.2-1.0) Aspartate Amino Transf (AST/SGOT) 78 U/L (15-37) Alanine Aminotransferase (ALT/SGPT) 91 U/L (16-63) Alkaline Phosphatase 127 U/L (46-116) Troponin I Quantitative < 0.017 ng/mL (0.000-0.055) CL-Ble-L-Type Natriuretic Peptide > 50120 pg/mL (0-124) Total Protein 8.0 g/dL (6.4-8.2) Albumin 2.5 g/dL (3.4-5.0) 2.4 g/dL (3.4-5.0) Albumin/Globulin Ratio 0.5 (1.0-1.7) Lactic Acid Level 0.7 mmol/L (0.4-2.0) Random Vancomycin Level 27.3 mcg/mL Phosphorus Level 7.2 mg/dL (2.6-4.7) Laboratory Tests Test 10/09/18 20:10 10/10/18 06:55 Random Vancomycin Level 27.3 mcg/mL White Blood Count 8.3 x10^3/uL (4.0-11.0) Red Blood Count 3.39 x10^6/uL (4.30-5.70) Hemoglobin 9.8 g/dL (13.0-17.5) Hematocrit 30.5 % (39.0-53.0) Mean Corpuscular Volume 90 fL (79-100) Mean Corpuscular Hemoglobin 29 pg (25-35) Mean Corpuscular Hemoglobin Concent 32 g/dL (31-37) Red Cell Distribution Width 20.5 % (11.5-14.5) Platelet Count 281 x10^3/uL (140-400) Neutrophils (%) (Auto) 60 % (31-73) Lymphocytes (%) (Auto) 14 % (24-48) Monocytes (%) (Auto) 14 % (0-9) Eosinophils (%) (Auto) 11 % (0-3) Basophils (%) (Auto) 1 % (0-3) Neutrophils # (Auto) 4.9 x10^3uL (1.8-7.7) Lymphocytes # (Auto) 1.1 x10^3/uL (1.0-4.8) Monocytes # (Auto) 1.2 x10^3/uL (0.0-1.1) Eosinophils # (Auto) 0.9 x10^3/uL (0.0-0.7) Basophils # (Auto) 0.1 x10^3/uL (0.0-0.2) Sodium Level 137 mmol/L (136-145) Potassium Level 6.0 mmol/L (3.5-5.1) Chloride Level 99 mmol/L (98-107) Carbon Dioxide Level 26 mmol/L (21-32) Anion Gap 12 (6-14) Blood Urea Nitrogen 49 mg/dL (8-26) Creatinine 6.1 mg/dL (0.7-1.3) Estimated GFR (Cockcroft-Gault) 9.7 Glucose Level 90 mg/dL (70-99) Calcium Level 8.4 mg/dL (8.5-10.1) Phosphorus Level 7.2 mg/dL (2.6-4.7) Albumin 2.4 g/dL (3.4-5.0) Medications Active Scripts Medications Dose Route/Sig Max Daily Dose Days Date Category Lisinopril 10 Mg Tablet 10 Mg PO DAILY 30 09/21/18 Rx Metoprolol Succinate ( Xl ) (Metoprolol Succinate) 25 Mg Tab.er.24h 25 Mg PO DAILY 30 09/21/18 Rx [Pantoprazole] 40 MG Tablet.dr 40 Mg PO BIDAC 30 08/25/18 Rx [Darbepoetin [place] In Polysorbat] 60 MCG/0.3 ML Disp.syrin 60 Mcg SQ WEEKLYHS 7 08/25/18 Rx Poly-Iron (Iron Polysaccharides Complex) 150 Mg Capsule 150 Mg PO BID66 30 08/25/18 Rx Impression . 1. Acute on chronic hypoxic respiratory failure secondary to acute diastolic congestive heart failure. Clinically, pneumonia less likely. 2. The patient with history of congestive heart failure. 3. The patient with chronic obstructive airway disease. 4. History of moderate to large pericardial effusion, status post pericardial window in August of this year. 5. History of left-sided pleural effusion, status post left chest tube and removal in 08/2018. 6. End-stage renal disease, on hemodialysis. 7. History of cavitary nodules, which were related to Staphylococcus infection. Overall, improved. Plan . 1. Continue hemodialysis with ultrafiltration. 2. Follow chest x-ray after a couple dialysis sessions to see an improvement in chest x-ray. 3. Continue present oxygen. 4. Empiric vancomycin and Zosyn for now. 5. Bronchodilators will be added. 6. CATH TODAY RUDI DAVALOS MD Oct 10, 2018 11:09
[2018-10-10] MEDS ORDERED: IV NORMAL SALINE 1000ML BAG 1,000 ML IV PRN ×2 (11:24)
[2018-10-10] MEDS ORDERED: DIALYSIS PATIENT. MC PRN ×2 (11:30)
--- NOTE | 2018-10-10 11:40 | PDOC ---
SUBJECTIVE ROS S/P Cardiac cath this am , Breathing better, lying flat OBJECTIVE Vital Signs Vital Signs Date Time Temp Pulse Resp B/P (MAP) Pulse Ox O2 Delivery O2 Flow Rate FiO2 10/10/18 11:11 Room Air 10/10/18 10:13 91 12 99 2.0 10/10/18 07:00 98.3 127/70 (89) 98.3 I & 0 Intake and Output 10/10/18 06:59 Intake Total 380 ml Output Total 75 ml Balance 305 ml Intake Oral 380 ml Output Urine Total 75 ml # Voids 3 PHYSICAL EXAM Physical Exam GEN:Mild distress HEEN: OM moist NECK: Supple CVS: RRR RESP: CTA, Acc Muscle use + GI: Soft, NT : No CVA tenderness, No Suprapubic Tenderness SP Catheter + Skin No rash Neuro- AXO X3 DIAGNOSIS/ASSESSMENT Assessment & Plan ESRD- On hd TTS- [facility] Dialyzed yesterday Again todya for Hyperkalemia Hyperkalemia - Persistent post HD Dialysis again today Shortness of Breath CXr - congestion on admission S/P LHC this am HTN- Home BP meds Pericardial effusion without clinical tamponade s/p pericardial window 09/10 - drained approximately 400 mls of cloudy fluid from the pericardial space. Anemia- Multiple Hospitalizations Hgb has been as low as 2.9 Dx with GI bleed with GDA embolization CLIFF as per protocol Hx of Pleural effusion s/p chest tube 09/12 H/o MSSA sepsis - treated - RADHA 07/10 neg. COMMENT/RELEVANT DATA Meds Current Medications Medications (Trade) Dose Ordered Sig/Kevin Start Time Stop Time Status Last Admin Dose Admin Albuterol/ Ipratropium (Duoneb) 3 ml RTQID 10/09/18 16:00 10/10/18 11:10 3 ML Darbepoetin Napoleon (Aranesp) 60 mcg WEEKLYHS 10/11/18 21:00 Diphenhydramine HCl (Benadryl) 50 mg 1X ONCE 10/09/18 11:30 10/09/18 11:31 DC 10/09/18 11:30 50 MG Fentanyl Citrate (Fentanyl 2ml Vial) 100 mcg 1X ONCE 10/10/18 10:00 10/10/18 10:01 DC 10/10/18 10:00 12.5 MCG Furosemide (Lasix) 60 mg 1X ONCE 10/09/18 00:00 10/09/18 00:01 DC 10/09/18 00:13 60 MG Heparin Sodium/ Sodium Chloride (HEPARIN for ARTERIAL LINE FLUSH) 1,000 unit 1X ONCE 10/10/18 10:00 10/10/18 10:01 DC 10/10/18 10:00 1,000 UNIT Info (PHARMACY MONITORING -- do not chart) 1 each PRN DAILY PRN 10/10/18 11:30 Iodixanol (Visipaque 320) 100 ml 1X ONCE 10/10/18 10:00 10/10/18 10:01 DC 10/10/18 10:00 60 ML Lidocaine HCl (Lidocaine 1% 20ml Vial) 20 ml 1X ONCE 10/10/18 10:00 10/10/18 10:01 DC 10/10/18 10:00 19 ML Lisinopril (Prinivil) 10 mg DAILY 10/09/18 15:30 10/09/18 15:44 10 MG Lorazepam (Ativan) 1 mg PRN Q4HRS PRN 10/09/18 11:30 10/09/18 11:38 1 MG Metoprolol Succinate (Toprol Xl) 25 mg DAILY 10/09/18 15:30 10/09/18 15:44 25 MG Midazolam HCl (Versed) 2 mg 1X ONCE 10/10/18 10:00 10/10/18 10:01 DC 10/10/18 10:00 1 MG Nitroglycerin (Nitrostat) 0.4 mg PRN Q5MIN PRN 10/10/18 10:15 Pantoprazole Sodium (Protonix) 40 mg BIDAC 10/09/18 16:30 10/09/18 16:35 40 MG Piperacillin Sod/ Tazobactam Sod (Zosyn Per Pharmacy) 1 each PRN DAILY PRN 10/08/18 23:45 Piperacillin Sod/ Tazobactam Sod 2.25 gm/Sodium Chloride 50 ml @ 100 mls/hr Q8HRS 10/09/18 00:00 10/10/18 05:59 100 MLS/HR Sodium Chloride 1,000 ml @ 400 mls/hr Q2H30M PRN 10/10/18 11:24 10/10/18 23:23 Sodium Chloride (Normal Saline Flush) 3 ml QSHIFT PRN 10/10/18 10:15 Vancomycin HCl (Vanco Per Pharmacy) 1 each PRN DAILY PRN 10/08/18 23:45 10/09/18 20:53 1 EACH Vancomycin HCl (Vancomycin Random Level) 1 each 1X ONCE 10/09/18 20:00 10/09/18 20:01 DC 10/09/18 20:00 1 EACH Vancomycin HCl 1.5 gm/Sodium Chloride 500 ml @ 250 mls/hr 1X ONCE 10/09/18 00:30 10/09/18 02:29 DC 10/09/18 01:12 250 MLS/HR Lab Laboratory Tests Test 10/09/18 20:10 10/10/18 06:55 Random Vancomycin Level 27.3 mcg/mL White Blood Count 8.3 x10^3/uL (4.0-11.0) Red Blood Count 3.39 x10^6/uL (4.30-5.70) Hemoglobin 9.8 g/dL (13.0-17.5) Hematocrit 30.5 % (39.0-53.0) Mean Corpuscular Volume 90 fL (79-100) Mean Corpuscular Hemoglobin 29 pg (25-35) Mean Corpuscular Hemoglobin Concent 32 g/dL (31-37) Red Cell Distribution Width 20.5 % (11.5-14.5) Platelet Count 281 x10^3/uL (140-400) Neutrophils (%) (Auto) 60 % (31-73) Lymphocytes (%) (Auto) 14 % (24-48) Monocytes (%) (Auto) 14 % (0-9) Eosinophils (%) (Auto) 11 % (0-3) Basophils (%) (Auto) 1 % (0-3) Neutrophils # (Auto) 4.9 x10^3uL (1.8-7.7) Lymphocytes # (Auto) 1.1 x10^3/uL (1.0-4.8) Monocytes # (Auto) 1.2 x10^3/uL (0.0-1.1) Eosinophils # (Auto) 0.9 x10^3/uL (0.0-0.7) Basophils # (Auto) 0.1 x10^3/uL (0.0-0.2) Sodium Level 137 mmol/L (136-145) Potassium Level 6.0 mmol/L (3.5-5.1) Chloride Level 99 mmol/L (98-107) Carbon Dioxide Level 26 mmol/L (21-32) Anion Gap 12 (6-14) Blood Urea Nitrogen 49 mg/dL (8-26) Creatinine 6.1 mg/dL (0.7-1.3) Estimated GFR (Cockcroft-Gault) 9.7 Glucose Level 90 mg/dL (70-99) Calcium Level 8.4 mg/dL (8.5-10.1) Phosphorus Level 7.2 mg/dL (2.6-4.7) Albumin 2.4 g/dL (3.4-5.0) Results All relevant outside records, renal labs, imaging studies, telemetry/EKG's were reviewed. MARIYA NORMAN MD Oct 10, 2018 11:39
--- NOTE | 2018-10-10 11:42 | NUR ---
pt bed alarm going off. this play writer entered room to find pt sitting up in bed. pt very upset about not getting meal yet. explained to pt the importance of laying flat until 1235 d/t cath procedure. pt states "this is bullshit. they told me i could eat". explained to pt he could eat but had to do it laying down. pt continued to curse at staff. meal tray ordered.
--- NOTE | 2018-10-10 13:05 | CARD ---
MR#: [id number] Date of Study: 10/10/2018 Ordering Physician: MARIANN TIRADO, Referring Physician: JAIR BARRERA Tech: Bertha Rodriguez, RT (R) APPROVED REPORT Procedures Left heart catheterization Selective coronary angiogram The patient is a 53-year-old male with a history of a cardiomyopathy and a previous pericardial effus ion. Patient had recurrent episodes of chest discomfort. In the setting cardiac catheterization was r ecommended for definitive diagnosis of possible coronary artery disease. Was and benefits were discus sed with the patient. He agreed to proceed. After informed consent was obtained the patient was brought to the heart catheterization lab. The are a of the right femoral artery was prepared the usual manner with Betadine, sterile draping and local anesthetic. An 18-gauge needle was used to enter the right femoral artery, a wire placed and a 6 Fren ch sheath placed over the wire. A 6 [place] JL4 diagnostic catheter was used to engage the left garner ry system and sequential injections in various views were obtained. A 6 [place] Leo diagnostic ca theter was used to engage the right coronary system. Sequential injections in various views were obta ined. A pigtail catheter was advanced to the ascending aorta and then the left ventricle. Pressures w ere obtained. Pullback pressures were measured. No left ventriculogram was performed. All catheter ex changes were over a J-wire. Injection of the sheath showed normal placement. The sheath was removed a nd sealed with an Angio-Seal product. The patient was moved to the holding area in stable condition. Findings. Hemodynamics. Left ventricular pressure of 128/12/20, aortic root 126/72. Coronaries. Left main. The left main was a short vessel with no lesions. Left anterior descending. The LAD was a moderate size vessel with normal distribution. It had mild mi d tapering of 10-15%. Left circumflex. The left circumflex was a moderate size vessel. It had no lesions. Right coronary artery. The right coronary was a moderate size vessel. It had no lesions. <Conclusion> There is mild single-vessel coronary artery disease with a mid tapering of 10-15% in the LAD. LVEDP of 20 mmHg. Signed by : Chuck Merritt MD Electronically Approved : 10/10/2018 13:03:42
[2018-10-10] MEDS: VANCOMYCIN PER PHARMACY MC PRN (13:42)
--- NOTE | 2018-10-10 14:47 | NUR ---
SW following for discharge planning. Pt has dialysis through [facility]. Pt also has home 02 with [facility]. SW will continue to follow.
--- NOTE | 2018-10-10 16:53 | NUR ---
report given to STEVE Wills, who assumed care at this time.
[2018-10-10] MEDS: LACTOBACILLUS RHAMNOSUS GG 1 CAPSULE. PO SCH (22:01)
[2018-10-11 03:14] VITALS: BP 111/54
[2018-10-11 05:41] LABS: BASO # 0.1 x10^3/uL (0.0-0.2); BASO % 2 % (0-3); EOS # 0.8 x10^3/uL (0.0-0.7); EOS % 13 % (0-3); HEMATOCRIT 27.7 % (39.0-53.0); HEMOGLOBIN 8.8 g/dL (13.0-17.5); LYMPH # 1.1 x10^3/uL (1.0-4.8); LYMPH % 18 % (24-48); MEAN CORPUSCULAR HEMOGLOBIN 28 pg (25-35); MEAN CORPUSCULAR HGB CONC 32 g/dL (31-37); MEAN CORPUSCULAR VOLUME 89 fL (79-100); MONO % 17 % (0-9); NEUT % 50 % (31-73); PLATELET COUNT 247 x10^3/uL (140-400); RED CELL DISTRIBUTION WIDTH 20.1 % (11.5-14.5); WHITE BLOOD COUNT 6.1 x10^3/uL (4.0-11.0)
[2018-10-11] MEDS: PIPERACILLIN/TAZOBACTAM 2.25 GM in IV NORMAL SALINE 50ML 50 ML IV SCH (06:04)
[2018-10-11 06:12] LABS: ALBUMIN 2.2 g/dL (3.4-5.0); CALCIUM 8.3 mg/dL (8.5-10.1); CREATININE 4.5 mg/dL (0.7-1.3); GFR 13.7; PHOSPHORUS 6.7 mg/dL (2.6-4.7); POTASSIUM 4.6 mmol/L (3.5-5.1)
[2018-10-11 07:00] VITALS: BP 120/61
[2018-10-11] MEDS: PANTOPRAZOLE 40 MG TABLET.DR. PO SCH (07:30)
[2018-10-11] MEDS: IPRATRPIUM/ALBUTEROL 0.5/2.5MG 3 ML NEBU. NEB SCH ×4 (07:50→15:29)
[2018-10-11] MEDS ORDERED: IV NORMAL SALINE 1000ML BAG 1,000 ML IV PRN ×2 (08:37)
[2018-10-11] MEDS ORDERED: DIALYSIS PATIENT. MC PRN ×2 (08:45)
--- NOTE | 2018-10-11 08:54 | PDOC ---
PROGRESS NOTES Subjective Subjective SEEN IN FOLLOW UP OF ESRD Objective Objective Vital Signs Date Time Temp Pulse Resp B/P (MAP) Pulse Ox O2 Delivery O2 Flow Rate FiO2 10/11/18 07:00 97.4 110 17 120/61 (80) 96 Room Air 97.4 10/10/18 10:13 2.0 Intake and Output 10/11/18 07:00 Intake Total 250 ml Output Total 75 ml Balance 175 ml Intake Oral 200 ml IV Total 50 ml Output Urine Total 75 ml # Voids 2 Physical Exam Abdomen: Normal bowel sounds, Soft, No tenderness, No hepatosplenomegaly, No masses Heart: Regular rate, Normal S1, Normal S2, No murmurs, Gallops Extremities: No clubbing, No cyanosis, No edema, Normal pulses, No tenderness/ swelling General: Alert, Oriented X3, Cooperative Lungs: Clear to auscultation, Normal air movement Psych/Mental Status: Mental status NL, Mood NL Diagnosis RENAL FAILURE: ESRD Assessment Assessment Problems Medical Problems: (1) Dyspnea Status: Acute Plan Plan of Care FOR DIALYSIS TODAY. FLUID BALANCE IS BETTER Comment Review of Relevant I have reviewed the following items allyson (where applicable) has been applied. Labs Laboratory Tests Test 10/09/18 20:10 10/10/18 06:55 10/11/18 04:45 Random Vancomycin Level 27.3 mcg/mL White Blood Count 8.3 x10^3/uL (4.0-11.0) 6.1 x10^3/uL (4.0-11.0) Red Blood Count 3.39 x10^6/uL (4.30-5.70) 3.10 x10^6/uL (4.30-5.70) Hemoglobin 9.8 g/dL (13.0-17.5) 8.8 g/dL (13.0-17.5) Hematocrit 30.5 % (39.0-53.0) 27.7 % (39.0-53.0) Mean Corpuscular Volume 90 fL (79-100) 89 fL (79-100) Mean Corpuscular Hemoglobin 29 pg (25-35) 28 pg (25-35) Mean Corpuscular Hemoglobin Concent 32 g/dL (31-37) 32 g/dL (31-37) Red Cell Distribution Width 20.5 % (11.5-14.5) 20.1 % (11.5-14.5) Platelet Count 281 x10^3/uL (140-400) 247 x10^3/uL (140-400) Neutrophils (%) (Auto) 60 % (31-73) 50 % (31-73) Lymphocytes (%) (Auto) 14 % (24-48) 18 % (24-48) Monocytes (%) (Auto) 14 % (0-9) 17 % (0-9) Eosinophils (%) (Auto) 11 % (0-3) 13 % (0-3) Basophils (%) (Auto) 1 % (0-3) 2 % (0-3) Neutrophils # (Auto) 4.9 x10^3uL (1.8-7.7) 3.0 x10^3uL (1.8-7.7) Lymphocytes # (Auto) 1.1 x10^3/uL (1.0-4.8) 1.1 x10^3/uL (1.0-4.8) Monocytes # (Auto) 1.2 x10^3/uL (0.0-1.1) 1.0 x10^3/uL (0.0-1.1) Eosinophils # (Auto) 0.9 x10^3/uL (0.0-0.7) 0.8 x10^3/uL (0.0-0.7) Basophils # (Auto) 0.1 x10^3/uL (0.0-0.2) 0.1 x10^3/uL (0.0-0.2) Sodium Level 137 mmol/L (136-145) 139 mmol/L (136-145) Potassium Level 6.0 mmol/L (3.5-5.1) 4.6 mmol/L (3.5-5.1) Chloride Level 99 mmol/L (98-107) 101 mmol/L (98-107) Carbon Dioxide Level 26 mmol/L (21-32) 29 mmol/L (21-32) Anion Gap 12 (6-14) 9 (6-14) Blood Urea Nitrogen 49 mg/dL (8-26) 37 mg/dL (8-26) Creatinine 6.1 mg/dL (0.7-1.3) 4.5 mg/dL (0.7-1.3) Estimated GFR (Cockcroft-Gault) 9.7 13.7 Glucose Level 90 mg/dL (70-99) 94 mg/dL (70-99) Calcium Level 8.4 mg/dL (8.5-10.1) 8.3 mg/dL (8.5-10.1) Phosphorus Level 7.2 mg/dL (2.6-4.7) 6.7 mg/dL (2.6-4.7) Albumin 2.4 g/dL (3.4-5.0) 2.2 g/dL (3.4-5.0) Laboratory Tests Test 10/11/18 04:45 White Blood Count 6.1 x10^3/uL (4.0-11.0) Red Blood Count 3.10 x10^6/uL (4.30-5.70) Hemoglobin 8.8 g/dL (13.0-17.5) Hematocrit 27.7 % (39.0-53.0) Mean Corpuscular Volume 89 fL (79-100) Mean Corpuscular Hemoglobin 28 pg (25-35) Mean Corpuscular Hemoglobin Concent 32 g/dL (31-37) Red Cell Distribution Width 20.1 % (11.5-14.5) Platelet Count 247 x10^3/uL (140-400) Neutrophils (%) (Auto) 50 % (31-73) Lymphocytes (%) (Auto) 18 % (24-48) Monocytes (%) (Auto) 17 % (0-9) Eosinophils (%) (Auto) 13 % (0-3) Basophils (%) (Auto) 2 % (0-3) Neutrophils # (Auto) 3.0 x10^3uL (1.8-7.7) Lymphocytes # (Auto) 1.1 x10^3/uL (1.0-4.8) Monocytes # (Auto) 1.0 x10^3/uL (0.0-1.1) Eosinophils # (Auto) 0.8 x10^3/uL (0.0-0.7) Basophils # (Auto) 0.1 x10^3/uL (0.0-0.2) Sodium Level 139 mmol/L (136-145) Potassium Level 4.6 mmol/L (3.5-5.1) Chloride Level 101 mmol/L (98-107) Carbon Dioxide Level 29 mmol/L (21-32) Anion Gap 9 (6-14) Blood Urea Nitrogen 37 mg/dL (8-26) Creatinine 4.5 mg/dL (0.7-1.3) Estimated GFR (Cockcroft-Gault) 13.7 Glucose Level 94 mg/dL (70-99) Calcium Level 8.3 mg/dL (8.5-10.1) Phosphorus Level 6.7 mg/dL (2.6-4.7) Albumin 2.2 g/dL (3.4-5.0) Microbiology 10/09/18 Blood Culture - Preliminary, Resulted NO GROWTH AFTER 2 DAYS Medications Current Medications Lorazepam (Ativan) 2 mg 1X ONCE PO Last administered on 10/08/18at 23:09; Start 10/08/18 at 22:30; Stop 10/08/18 at 22:31; Status DC Vancomycin HCl (Vanco Per Pharmacy) 1 each PRN DAILY PRN MC SEE COMMENTS Last administered on 10/10/18at 13:42; Start 10/08/18 at 23:45 Piperacillin Sod/ Tazobactam Sod (Zosyn Per Pharmacy) 1 each PRN DAILY PRN MC SEE COMMENTS; Start 10/08/18 at 23:45 Furosemide (Lasix) 60 mg 1X ONCE IVP Last administered on 10/09/18at 00:13; Start 10/09/18 at 00:00; Stop 10/09/18 at 00:01; Status DC Piperacillin Sod/ Tazobactam Sod 2.25 gm/Sodium Chloride 50 ml @ 100 mls/hr Q8HRS IV Last administered on 10/11/18at 06:04; Start 10/09/18 at 00:00 Vancomycin HCl 1.5 gm/Sodium Chloride 500 ml @ 250 mls/hr 1X ONCE IV Last administered on 10/09/18at 01:12; Start 10/09/18 at 00:30; Stop 10/09/18 at 02:29 ; Status DC Darbepoetin Napoleon (Aranesp) 60 mcg WEEKLYHS SQ ; Start 10/11/18 at 21:00 Sodium Chloride 1,000 ml @ 1,000 mls/hr Q1H PRN IV hypotension; Start 10/09/18 at 10:39; Stop 10/09/18 at 16:38; Status DC Sodium Chloride 1,000 ml @ 400 mls/hr Q2H30M PRN IV PATENCY; Start 10/09/18 at 10:39; Stop 10/09/18 at 22:38; Status DC Info (PHARMACY MONITORING -- do not chart) 1 each PRN DAILY PRN MC SEE COMMENTS ; Start 10/09/18 at 10:45; Stop 10/09/18 at 10:45; Status DC Info (PHARMACY MONITORING -- do not chart) 1 each PRN DAILY PRN MC SEE COMMENTS ; Start 10/09/18 at 10:45; Status Cancel Diphenhydramine HCl (Benadryl) 50 mg 1X ONCE IVP Last administered on at 11:30; Start 10/09/18 at 11:30; Stop 10/09/18 at 11:31; Status DC Lorazepam (Ativan) 1 mg PRN Q4HRS PRN IV ANXIETY / AGITATION Last administered on 10/09/18at 11:38; Start 10/09/18 at 11:30 Vancomycin HCl (Vancomycin Random Level) 1 each 1X ONCE MC Last administered on 10/09/18at 13:00; Start 10/09/18 at 13:00; Stop 10/09/18 at 13:01; Status DC Albuterol/ Ipratropium (Duoneb) 3 ml RTQID NEB Last administered on 10/10/18at 19:56; Start 10/09/18 at 16:00 Vancomycin HCl (Vancomycin Random Level) 1 each 1X ONCE MC Last administered on 10/09/18at 20:00; Start 10/09/18 at 20:00; Stop 10/09/18 at 20:01; Status DC Lisinopril (Prinivil) 10 mg DAILY PO Last administered on 10/09/18at 15:44; Start 10/09/18 at 15:30 Metoprolol Succinate (Toprol Xl) 25 mg DAILY PO Last administered on 10/09/18at 15:44; Start 10/09/18 at 15:30 Pantoprazole Sodium (Protonix) 40 mg BIDAC PO Last administered on 10/09/18at 16 :35; Start 10/09/18 at 16:30 Iodixanol (Visipaque 320) 100 ml STK-MED ONCE .ROUTE ; Start 10/10/18 at 07:44; Stop 10/10/18 at 07:45; Status DC Lidocaine HCl (Lidocaine 1% 20ml Vial) 20 ml STK-MED ONCE .ROUTE ; Start at 07:44; Stop 10/10/18 at 07:45; Status DC Heparin Sodium/ Sodium Chloride 1,500 ml @ As Directed STK-MED ONCE .ROUTE ; Start 10/10/18 at 07:44; Stop 10/10/18 at 07:45; Status DC Fentanyl Citrate (Fentanyl 2ml Vial) 100 mcg STK-MED ONCE .ROUTE ; Start at 09:18; Stop 10/10/18 at 09:19; Status DC Midazolam HCl (Versed) 2 mg STK-MED ONCE .ROUTE ; Start 10/10/18 at 09:18; Stop 10/10/18 at 09:19; Status DC Heparin Sodium/ Sodium Chloride (HEPARIN for ARTERIAL LINE FLUSH) 1,000 unit 1X ONCE IART Last administered on 10/10/18at 10:00; Start 10/10/18 at 10:00; Stop 10/10/18 at 10:01; Status DC Midazolam HCl (Versed) 2 mg 1X ONCE IV Last administered on 10/10/18at 10:00; Start 10/10/18 at 10:00; Stop 10/10/18 at 10:01; Status DC Fentanyl Citrate (Fentanyl 2ml Vial) 100 mcg 1X ONCE IV Last administered on at 10:00; Start 10/10/18 at 10:00; Stop 10/10/18 at 10:01; Status DC Iodixanol (Visipaque 320) 100 ml 1X ONCE IART Last administered on 10/10/18at 10:00; Start 10/10/18 at 10:00; Stop 10/10/18 at 10:01; Status DC Lidocaine HCl (Lidocaine 1% 20ml Vial) 20 ml 1X ONCE INJ Last administered on 10/10/18at 10:00; Start 10/10/18 at 10:00; Stop 10/10/18 at 10:01; Status DC Sodium Chloride (Normal Saline Flush) 3 ml QSHIFT PRN IV AFTER MEDS AND BLOOD DRAWS; Start 10/10/18 at 10:15 Sodium Chloride 1,000 ml @ 60 mls/hr [id number] IV Last administered on at 13:34; Start 10/10/18 at 10:15; Stop 10/10/18 at 13:14; Status DC Nitroglycerin (Nitrostat) 0.4 mg PRN Q5MIN PRN SL CHEST PAIN; Start 10/10/18 at 10:15 Sodium Chloride 1,000 ml @ 1,000 mls/hr Q1H PRN IV hypotension; Start 10/10/18 at 11:24; Stop 10/10/18 at 17:23; Status DC Sodium Chloride 1,000 ml @ 400 mls/hr Q2H30M PRN IV PATENCY; Start 10/10/18 at 11:24; Stop 10/10/18 at 23:23; Status DC Info (PHARMACY MONITORING -- do not chart) 1 each PRN DAILY PRN MC SEE COMMENTS ; Start 10/10/18 at 11:30; Status UNV Info (PHARMACY MONITORING -- do not chart) 1 each PRN DAILY PRN MC SEE COMMENTS ; Start 10/10/18 at 11:30 Vancomycin HCl 500 mg/Sodium Chloride 100 ml @ 100 mls/hr QTUTHSA IV ; Start at 16:00 Lactobacillus Rhamnosus (Culturelle) 1 cap BID PO Last administered on at 22:01; Start 10/10/18 at 21:00 Sodium Chloride 1,000 ml @ 1,000 mls/hr Q1H PRN IV hypotension; Start 10/11/18 at 08:37; Stop 10/11/18 at 14:36 Sodium Chloride 1,000 ml @ 400 mls/hr Q2H30M PRN IV PATENCY; Start 10/11/18 at 08:37; Stop 10/11/18 at 20:36 Info (PHARMACY MONITORING -- do not chart) 1 each PRN DAILY PRN MC SEE COMMENTS ; Start 10/11/18 at 08:45; Status UNV Info (PHARMACY MONITORING -- do not chart) 1 each PRN DAILY PRN MC SEE COMMENTS ; Start 10/11/18 at 08:45; Status UNV Active Scripts Active Lisinopril 10 Mg Tablet 10 Mg PO DAILY 30 Days Metoprolol Succinate ( Xl ) (Metoprolol Succinate) 25 Mg Tab.er.24h 25 Mg PO DAILY 30 Days [Pantoprazole] 40 MG Tablet.dr 40 Mg PO BIDAC 30 Days [Darbepoetin Napoleon In Polysorbat] 60 MCG/0.3 ML Disp.syrin 60 Mcg SQ WEEKLYHS 7 Days Poly-Iron (Iron Polysaccharides Complex) 150 Mg Capsule 150 Mg PO BID66 30 Days Vitals/I & O Vital Sign - Last 24 Hours 10/10/18 10/10/18 10/10/18 10/10/18 10:00 10:13 11:00 11:11 Temp 98.0 98.0 Pulse 91 91 Resp 12 12 18 B/P (MAP) 120/77 (91) Pulse Ox 99 99 94 O2 Delivery Nasal Cannula Nasal Cannula Room Air Room Air O2 Flow Rate 2.0 2.0 10/10/18 10/10/18 10/10/18 10/10/18 15:00 15:52 19:00 19:53 Temp 98.3 98.5 98.3 98.5 Pulse 91 84 Resp 18 20 B/P (MAP) 134/74 (94) 122/67 (85) Pulse Ox 94 97 O2 Delivery Room Air Room Air Room Air Room Air 10/10/18 10/10/18 10/11/18 10/11/18 20:00 23:02 03:14 07:00 Temp 98.6 97.4 97.4 98.6 97.4 97.4 Pulse 82 105 110 Resp 20 20 17 B/P (MAP) 109/53 (71) 111/54 (73) 120/61 (80) Pulse Ox 94 97 96 O2 Delivery Room Air Room Air Room Air Room Air Intake and Output 10/10/18 10/10/18 10/11/18 15:00 23:00 07:00 Intake Total 200 ml 50 ml Output Total 75 ml 0 ml Balance 200 ml -75 ml 50 ml FAMILIA RODRIGUEZ MD Oct 11, 2018 08:54
[2018-10-11] MEDS: METOPROLOL SUCC 24HR ER 25 MG TAB.ER.24H. PO SCH (09:00)
[2018-10-11] MEDS: LACTOBACILLUS RHAMNOSUS GG 1 CAPSULE. PO SCH (09:00)
--- NOTE | 2018-10-11 10:22 | PDOC ---
PROGRESS NOTES Chief Complaint Chief Complaint Acute combined CHF Pulmonary infiltrate- likely HCAP Sepsis Pleural Effusion H/o recent pericardial effusion with pericardial window (08/2018) ESRD Pulmonary Edema Anemia Malnutrition Transaminitis History of Present Illness History of Present Illness Pt was seen and examined in room He was laying in bed with NAD Pt stated that he was feeling good today Discussed case with RN Pt expressed a desire to be discharged if OK with providers Vitals Vitals Vital Signs Date Time Temp Pulse Resp B/P (MAP) Pulse Ox O2 Delivery O2 Flow Rate FiO2 10/11/18 07:00 97.4 110 17 120/61 (80) 96 Room Air 97.4 10/10/18 10:13 2.0 Physical Exam General: Alert, Oriented X3, Cooperative Heart: Regular rate, Normal S1, Normal S2, No murmurs, Gallops Lungs: Clear Abdomen: Normal bowel sounds, Soft, No tenderness, No hepatosplenomegaly, No masses Extremities: No clubbing, No cyanosis, No edema, Normal pulses, No tenderness/ swelling Skin: No significant lesion, Other (tunnel catheter on L side for HD) Labs LABS Laboratory Tests Test 10/11/18 04:45 White Blood Count 6.1 x10^3/uL (4.0-11.0) Red Blood Count 3.10 x10^6/uL (4.30-5.70) Hemoglobin 8.8 g/dL (13.0-17.5) Hematocrit 27.7 % (39.0-53.0) Mean Corpuscular Volume 89 fL (79-100) Mean Corpuscular Hemoglobin 28 pg (25-35) Mean Corpuscular Hemoglobin Concent 32 g/dL (31-37) Red Cell Distribution Width 20.1 % (11.5-14.5) Platelet Count 247 x10^3/uL (140-400) Neutrophils (%) (Auto) 50 % (31-73) Lymphocytes (%) (Auto) 18 % (24-48) Monocytes (%) (Auto) 17 % (0-9) Eosinophils (%) (Auto) 13 % (0-3) Basophils (%) (Auto) 2 % (0-3) Neutrophils # (Auto) 3.0 x10^3uL (1.8-7.7) Lymphocytes # (Auto) 1.1 x10^3/uL (1.0-4.8) Monocytes # (Auto) 1.0 x10^3/uL (0.0-1.1) Eosinophils # (Auto) 0.8 x10^3/uL (0.0-0.7) Basophils # (Auto) 0.1 x10^3/uL (0.0-0.2) Sodium Level 139 mmol/L (136-145) Potassium Level 4.6 mmol/L (3.5-5.1) Chloride Level 101 mmol/L (98-107) Carbon Dioxide Level 29 mmol/L (21-32) Anion Gap 9 (6-14) Blood Urea Nitrogen 37 mg/dL (8-26) Creatinine 4.5 mg/dL (0.7-1.3) Estimated GFR (Cockcroft-Gault) 13.7 Glucose Level 94 mg/dL (70-99) Calcium Level 8.3 mg/dL (8.5-10.1) Phosphorus Level 6.7 mg/dL (2.6-4.7) Albumin 2.2 g/dL (3.4-5.0) Review of Systems Review of Systems Pt denies CP, MOON, SOB, n/v/d, abdominal pain Assessment and Plan Assessmemt and Plan Problems Medical Problems: (1) Dyspnea Status: Acute Assessment Acute combined CHF Pulmonary infiltrate- likely HCAP Sepsis Pleural Effusion H/o recent pericardial effusion with pericardial window (08/2018) ESRD Pulmonary Edema Anemia Malnutrition Transaminitis Plan Pt feeling well today- OK to d/c from our standpoint, await subspecialty recs Pulm would like to repeat CXR to reassess for improvement Heart cath results reviewed- one vessel CAD Continue HD with ultrafiltration Continue ABx Fluid restriction home meds frequent labs PT/OT Appreciate subspecialty recs- renal, cardiology, pulm Comment Review of Relevant I have reviewed the following items allyson (where applicable) has been applied. Labs Laboratory Tests Test 10/09/18 20:10 10/10/18 06:55 10/11/18 04:45 Random Vancomycin Level 27.3 mcg/mL White Blood Count 8.3 x10^3/uL (4.0-11.0) 6.1 x10^3/uL (4.0-11.0) Red Blood Count 3.39 x10^6/uL (4.30-5.70) 3.10 x10^6/uL (4.30-5.70) Hemoglobin 9.8 g/dL (13.0-17.5) 8.8 g/dL (13.0-17.5) Hematocrit 30.5 % (39.0-53.0) 27.7 % (39.0-53.0) Mean Corpuscular Volume 90 fL (79-100) 89 fL (79-100) Mean Corpuscular Hemoglobin 29 pg (25-35) 28 pg (25-35) Mean Corpuscular Hemoglobin Concent 32 g/dL (31-37) 32 g/dL (31-37) Red Cell Distribution Width 20.5 % (11.5-14.5) 20.1 % (11.5-14.5) Platelet Count 281 x10^3/uL (140-400) 247 x10^3/uL (140-400) Neutrophils (%) (Auto) 60 % (31-73) 50 % (31-73) Lymphocytes (%) (Auto) 14 % (24-48) 18 % (24-48) Monocytes (%) (Auto) 14 % (0-9) 17 % (0-9) Eosinophils (%) (Auto) 11 % (0-3) 13 % (0-3) Basophils (%) (Auto) 1 % (0-3) 2 % (0-3) Neutrophils # (Auto) 4.9 x10^3uL (1.8-7.7) 3.0 x10^3uL (1.8-7.7) Lymphocytes # (Auto) 1.1 x10^3/uL (1.0-4.8) 1.1 x10^3/uL (1.0-4.8) Monocytes # (Auto) 1.2 x10^3/uL (0.0-1.1) 1.0 x10^3/uL (0.0-1.1) Eosinophils # (Auto) 0.9 x10^3/uL (0.0-0.7) 0.8 x10^3/uL (0.0-0.7) Basophils # (Auto) 0.1 x10^3/uL (0.0-0.2) 0.1 x10^3/uL (0.0-0.2) Sodium Level 137 mmol/L (136-145) 139 mmol/L (136-145) Potassium Level 6.0 mmol/L (3.5-5.1) 4.6 mmol/L (3.5-5.1) Chloride Level 99 mmol/L (98-107) 101 mmol/L (98-107) Carbon Dioxide Level 26 mmol/L (21-32) 29 mmol/L (21-32) Anion Gap 12 (6-14) 9 (6-14) Blood Urea Nitrogen 49 mg/dL (8-26) 37 mg/dL (8-26) Creatinine 6.1 mg/dL (0.7-1.3) 4.5 mg/dL (0.7-1.3) Estimated GFR (Cockcroft-Gault) 9.7 13.7 Glucose Level 90 mg/dL (70-99) 94 mg/dL (70-99) Calcium Level 8.4 mg/dL (8.5-10.1) 8.3 mg/dL (8.5-10.1) Phosphorus Level 7.2 mg/dL (2.6-4.7) 6.7 mg/dL (2.6-4.7) Albumin 2.4 g/dL (3.4-5.0) 2.2 g/dL (3.4-5.0) Laboratory Tests Test 10/11/18 04:45 White Blood Count 6.1 x10^3/uL (4.0-11.0) Red Blood Count 3.10 x10^6/uL (4.30-5.70) Hemoglobin 8.8 g/dL (13.0-17.5) Hematocrit 27.7 % (39.0-53.0) Mean Corpuscular Volume 89 fL (79-100) Mean Corpuscular Hemoglobin 28 pg (25-35) Mean Corpuscular Hemoglobin Concent 32 g/dL (31-37) Red Cell Distribution Width 20.1 % (11.5-14.5) Platelet Count 247 x10^3/uL (140-400) Neutrophils (%) (Auto) 50 % (31-73) Lymphocytes (%) (Auto) 18 % (24-48) Monocytes (%) (Auto) 17 % (0-9) Eosinophils (%) (Auto) 13 % (0-3) Basophils (%) (Auto) 2 % (0-3) Neutrophils # (Auto) 3.0 x10^3uL (1.8-7.7) Lymphocytes # (Auto) 1.1 x10^3/uL (1.0-4.8) Monocytes # (Auto) 1.0 x10^3/uL (0.0-1.1) Eosinophils # (Auto) 0.8 x10^3/uL (0.0-0.7) Basophils # (Auto) 0.1 x10^3/uL (0.0-0.2) Sodium Level 139 mmol/L (136-145) Potassium Level 4.6 mmol/L (3.5-5.1) Chloride Level 101 mmol/L (98-107) Carbon Dioxide Level 29 mmol/L (21-32) Anion Gap 9 (6-14) Blood Urea Nitrogen 37 mg/dL (8-26) Creatinine 4.5 mg/dL (0.7-1.3) Estimated GFR (Cockcroft-Gault) 13.7 Glucose Level 94 mg/dL (70-99) Calcium Level 8.3 mg/dL (8.5-10.1) Phosphorus Level 6.7 mg/dL (2.6-4.7) Albumin 2.2 g/dL (3.4-5.0) Microbiology 10/09/18 Blood Culture - Preliminary, Resulted NO GROWTH AFTER 2 DAYS Medications Current Medications Lorazepam (Ativan) 2 mg 1X ONCE PO Last administered on 10/08/18at 23:09; Start 10/08/18 at 22:30; Stop 10/08/18 at 22:31; Status DC Vancomycin HCl (Vanco Per Pharmacy) 1 each PRN DAILY PRN MC SEE COMMENTS Last administered on 10/10/18at 13:42; Start 10/08/18 at 23:45 Piperacillin Sod/ Tazobactam Sod (Zosyn Per Pharmacy) 1 each PRN DAILY PRN MC SEE COMMENTS; Start 10/08/18 at 23:45 Furosemide (Lasix) 60 mg 1X ONCE IVP Last administered on 10/09/18at 00:13; Start 10/09/18 at 00:00; Stop 10/09/18 at 00:01; Status DC Piperacillin Sod/ Tazobactam Sod 2.25 gm/Sodium Chloride 50 ml @ 100 mls/hr Q8HRS IV Last administered on 10/11/18at 06:04; Start 10/09/18 at 00:00 Vancomycin HCl 1.5 gm/Sodium Chloride 500 ml @ 250 mls/hr 1X ONCE IV Last administered on 10/09/18at 01:12; Start 10/09/18 at 00:30; Stop 10/09/18 at 02:29 ; Status DC Darbepoetin Napoleon (Aranesp) 60 mcg WEEKLYHS SQ ; Start 10/11/18 at 21:00 Sodium Chloride 1,000 ml @ 1,000 mls/hr Q1H PRN IV hypotension; Start 10/09/18 at 10:39; Stop 10/09/18 at 16:38; Status DC Sodium Chloride 1,000 ml @ 400 mls/hr Q2H30M PRN IV PATENCY; Start 10/09/18 at 10:39; Stop 10/09/18 at 22:38; Status DC Info (PHARMACY MONITORING -- do not chart) 1 each PRN DAILY PRN MC SEE COMMENTS ; Start 10/09/18 at 10:45; Stop 10/09/18 at 10:45; Status DC Info (PHARMACY MONITORING -- do not chart) 1 each PRN DAILY PRN MC SEE COMMENTS ; Start 10/09/18 at 10:45; Status Cancel Diphenhydramine HCl (Benadryl) 50 mg 1X ONCE IVP Last administered on at 11:30; Start 10/09/18 at 11:30; Stop 10/09/18 at 11:31; Status DC Lorazepam (Ativan) 1 mg PRN Q4HRS PRN IV ANXIETY / AGITATION Last administered on 10/09/18at 11:38; Start 10/09/18 at 11:30 Vancomycin HCl (Vancomycin Random Level) 1 each 1X ONCE MC Last administered on 10/09/18at 13:00; Start 10/09/18 at 13:00; Stop 10/09/18 at 13:01; Status DC Albuterol/ Ipratropium (Duoneb) 3 ml RTQID NEB Last administered on 10/10/18at 19:56; Start 10/09/18 at 16:00 Vancomycin HCl (Vancomycin Random Level) 1 each 1X ONCE MC Last administered on 10/09/18at 20:00; Start 10/09/18 at 20:00; Stop 10/09/18 at 20:01; Status DC Lisinopril (Prinivil) 10 mg DAILY PO Last administered on 10/09/18at 15:44; Start 10/09/18 at 15:30 Metoprolol Succinate (Toprol Xl) 25 mg DAILY PO Last administered on 10/09/18at 15:44; Start 10/09/18 at 15:30 Pantoprazole Sodium (Protonix) 40 mg BIDAC PO Last administered on 10/09/18at 16 :35; Start 10/09/18 at 16:30 Iodixanol (Visipaque 320) 100 ml STK-MED ONCE .ROUTE ; Start 10/10/18 at 07:44; Stop 10/10/18 at 07:45; Status DC Lidocaine HCl (Lidocaine 1% 20ml Vial) 20 ml STK-MED ONCE .ROUTE ; Start at 07:44; Stop 10/10/18 at 07:45; Status DC Heparin Sodium/ Sodium Chloride 1,500 ml @ As Directed STK-MED ONCE .ROUTE ; Start 10/10/18 at 07:44; Stop 10/10/18 at 07:45; Status DC Fentanyl Citrate (Fentanyl 2ml Vial) 100 mcg STK-MED ONCE .ROUTE ; Start at 09:18; Stop 10/10/18 at 09:19; Status DC Midazolam HCl (Versed) 2 mg STK-MED ONCE .ROUTE ; Start 10/10/18 at 09:18; Stop 10/10/18 at 09:19; Status DC Heparin Sodium/ Sodium Chloride (HEPARIN for ARTERIAL LINE FLUSH) 1,000 unit 1X ONCE IART Last administered on 10/10/18at 10:00; Start 10/10/18 at 10:00; Stop 10/10/18 at 10:01; Status DC Midazolam HCl (Versed) 2 mg 1X ONCE IV Last administered on 10/10/18at 10:00; Start 10/10/18 at 10:00; Stop 10/10/18 at 10:01; Status DC Fentanyl Citrate (Fentanyl 2ml Vial) 100 mcg 1X ONCE IV Last administered on at 10:00; Start 10/10/18 at 10:00; Stop 10/10/18 at 10:01; Status DC Iodixanol (Visipaque 320) 100 ml 1X ONCE IART Last administered on 10/10/18at 10:00; Start 10/10/18 at 10:00; Stop 10/10/18 at 10:01; Status DC Lidocaine HCl (Lidocaine 1% 20ml Vial) 20 ml 1X ONCE INJ Last administered on 10/10/18at 10:00; Start 10/10/18 at 10:00; Stop 10/10/18 at 10:01; Status DC Sodium Chloride (Normal Saline Flush) 3 ml QSHIFT PRN IV AFTER MEDS AND BLOOD DRAWS; Start 10/10/18 at 10:15 Sodium Chloride 1,000 ml @ 60 mls/hr [id number] IV Last administered on at 13:34; Start 10/10/18 at 10:15; Stop 10/10/18 at 13:14; Status DC Nitroglycerin (Nitrostat) 0.4 mg PRN Q5MIN PRN SL CHEST PAIN; Start 10/10/18 at 10:15 Sodium Chloride 1,000 ml @ 1,000 mls/hr Q1H PRN IV hypotension; Start 10/10/18 at 11:24; Stop 10/10/18 at 17:23; Status DC Sodium Chloride 1,000 ml @ 400 mls/hr Q2H30M PRN IV PATENCY; Start 10/10/18 at 11:24; Stop 10/10/18 at 23:23; Status DC Info (PHARMACY MONITORING -- do not chart) 1 each PRN DAILY PRN MC SEE COMMENTS ; Start 10/10/18 at 11:30; Status UNV Info (PHARMACY MONITORING -- do not chart) 1 each PRN DAILY PRN MC SEE COMMENTS ; Start 10/10/18 at 11:30 Vancomycin HCl 500 mg/Sodium Chloride 100 ml @ 100 mls/hr QTUTHSA IV ; Start at 16:00 Lactobacillus Rhamnosus (Culturelle) 1 cap BID PO Last administered on at 22:01; Start 10/10/18 at 21:00 Sodium Chloride 1,000 ml @ 1,000 mls/hr Q1H PRN IV hypotension; Start 10/11/18 at 08:37; Stop 10/11/18 at 14:36 Sodium Chloride 1,000 ml @ 400 mls/hr Q2H30M PRN IV PATENCY; Start 10/11/18 at 08:37; Stop 10/11/18 at 20:36 Info (PHARMACY MONITORING -- do not chart) 1 each PRN DAILY PRN MC SEE COMMENTS ; Start 10/11/18 at 08:45; Status UNV Info (PHARMACY MONITORING -- do not chart) 1 each PRN DAILY PRN MC SEE COMMENTS ; Start 10/11/18 at 08:45; Status UNV Active Scripts Active Lisinopril 10 Mg Tablet 10 Mg PO DAILY 30 Days Metoprolol Succinate ( Xl ) (Metoprolol Succinate) 25 Mg Tab.er.24h 25 Mg PO DAILY 30 Days [Pantoprazole] 40 MG Tablet.dr 40 Mg PO BIDAC 30 Days [Darbepoetin Napoleon In Polysorbat] 60 MCG/0.3 ML Disp.syrin 60 Mcg SQ WEEKLYHS 7 Days Poly-Iron (Iron Polysaccharides Complex) 150 Mg Capsule 150 Mg PO BID66 30 Days Vitals/I & O Vital Sign - Last 24 Hours 10/10/18 10/10/18 10/10/18 10/10/18 11:00 11:11 15:00 15:52 Temp 98.0 98.3 98.0 98.3 Pulse 91 91 Resp 18 18 B/P (MAP) 120/77 (91) 134/74 (94) Pulse Ox 94 94 O2 Delivery Room Air Room Air Room Air Room Air 10/10/18 10/10/18 10/10/18 10/10/18 19:00 19:53 20:00 23:02 Temp 98.5 98.6 98.5 98.6 Pulse 84 82 Resp 20 20 B/P (MAP) 122/67 (85) 109/53 (71) Pulse Ox 97 94 O2 Delivery Room Air Room Air Room Air Room Air 10/11/18 10/11/18 03:14 07:00 Temp 97.4 97.4 97.4 97.4 Pulse 105 110 Resp 20 17 B/P (MAP) 111/54 (73) 120/61 (80) Pulse Ox 97 96 O2 Delivery Room Air Room Air Intake and Output 10/10/18 10/10/18 10/11/18 15:00 23:00 07:00 Intake Total 200 ml 50 ml Output Total 75 ml 0 ml Balance 200 ml -75 ml 50 ml DEVAN NICHOLE III DO Oct 11, 2018 10:22
--- NOTE | 2018-10-11 12:31 | PDOC ---
PULMONARY PROGRESS NOTES Subjective NO SOA FULLY AWAKE Vitals Vital Signs Date Time Temp Pulse Resp B/P (MAP) Pulse Ox O2 Delivery O2 Flow Rate FiO2 10/11/18 07:00 97.4 110 17 120/61 (80) 96 Room Air 97.4 10/10/18 10:13 2.0 General: Alert, No acute distress HEENT: Other Lungs: Clear Cardiovascular: S1, S2 Abdomen: Soft, Non-tender Neuro Exam: Alert Extremities: No Edema Skin: Warm Labs Laboratory Tests Test 10/09/18 20:10 10/10/18 06:55 10/11/18 04:45 Random Vancomycin Level 27.3 mcg/mL White Blood Count 8.3 x10^3/uL (4.0-11.0) 6.1 x10^3/uL (4.0-11.0) Red Blood Count 3.39 x10^6/uL (4.30-5.70) 3.10 x10^6/uL (4.30-5.70) Hemoglobin 9.8 g/dL (13.0-17.5) 8.8 g/dL (13.0-17.5) Hematocrit 30.5 % (39.0-53.0) 27.7 % (39.0-53.0) Mean Corpuscular Volume 90 fL (79-100) 89 fL (79-100) Mean Corpuscular Hemoglobin 29 pg (25-35) 28 pg (25-35) Mean Corpuscular Hemoglobin Concent 32 g/dL (31-37) 32 g/dL (31-37) Red Cell Distribution Width 20.5 % (11.5-14.5) 20.1 % (11.5-14.5) Platelet Count 281 x10^3/uL (140-400) 247 x10^3/uL (140-400) Neutrophils (%) (Auto) 60 % (31-73) 50 % (31-73) Lymphocytes (%) (Auto) 14 % (24-48) 18 % (24-48) Monocytes (%) (Auto) 14 % (0-9) 17 % (0-9) Eosinophils (%) (Auto) 11 % (0-3) 13 % (0-3) Basophils (%) (Auto) 1 % (0-3) 2 % (0-3) Neutrophils # (Auto) 4.9 x10^3uL (1.8-7.7) 3.0 x10^3uL (1.8-7.7) Lymphocytes # (Auto) 1.1 x10^3/uL (1.0-4.8) 1.1 x10^3/uL (1.0-4.8) Monocytes # (Auto) 1.2 x10^3/uL (0.0-1.1) 1.0 x10^3/uL (0.0-1.1) Eosinophils # (Auto) 0.9 x10^3/uL (0.0-0.7) 0.8 x10^3/uL (0.0-0.7) Basophils # (Auto) 0.1 x10^3/uL (0.0-0.2) 0.1 x10^3/uL (0.0-0.2) Sodium Level 137 mmol/L (136-145) 139 mmol/L (136-145) Potassium Level 6.0 mmol/L (3.5-5.1) 4.6 mmol/L (3.5-5.1) Chloride Level 99 mmol/L (98-107) 101 mmol/L (98-107) Carbon Dioxide Level 26 mmol/L (21-32) 29 mmol/L (21-32) Anion Gap 12 (6-14) 9 (6-14) Blood Urea Nitrogen 49 mg/dL (8-26) 37 mg/dL (8-26) Creatinine 6.1 mg/dL (0.7-1.3) 4.5 mg/dL (0.7-1.3) Estimated GFR (Cockcroft-Gault) 9.7 13.7 Glucose Level 90 mg/dL (70-99) 94 mg/dL (70-99) Calcium Level 8.4 mg/dL (8.5-10.1) 8.3 mg/dL (8.5-10.1) Phosphorus Level 7.2 mg/dL (2.6-4.7) 6.7 mg/dL (2.6-4.7) Albumin 2.4 g/dL (3.4-5.0) 2.2 g/dL (3.4-5.0) Laboratory Tests Test 10/11/18 04:45 White Blood Count 6.1 x10^3/uL (4.0-11.0) Red Blood Count 3.10 x10^6/uL (4.30-5.70) Hemoglobin 8.8 g/dL (13.0-17.5) Hematocrit 27.7 % (39.0-53.0) Mean Corpuscular Volume 89 fL (79-100) Mean Corpuscular Hemoglobin 28 pg (25-35) Mean Corpuscular Hemoglobin Concent 32 g/dL (31-37) Red Cell Distribution Width 20.1 % (11.5-14.5) Platelet Count 247 x10^3/uL (140-400) Neutrophils (%) (Auto) 50 % (31-73) Lymphocytes (%) (Auto) 18 % (24-48) Monocytes (%) (Auto) 17 % (0-9) Eosinophils (%) (Auto) 13 % (0-3) Basophils (%) (Auto) 2 % (0-3) Neutrophils # (Auto) 3.0 x10^3uL (1.8-7.7) Lymphocytes # (Auto) 1.1 x10^3/uL (1.0-4.8) Monocytes # (Auto) 1.0 x10^3/uL (0.0-1.1) Eosinophils # (Auto) 0.8 x10^3/uL (0.0-0.7) Basophils # (Auto) 0.1 x10^3/uL (0.0-0.2) Sodium Level 139 mmol/L (136-145) Potassium Level 4.6 mmol/L (3.5-5.1) Chloride Level 101 mmol/L (98-107) Carbon Dioxide Level 29 mmol/L (21-32) Anion Gap 9 (6-14) Blood Urea Nitrogen 37 mg/dL (8-26) Creatinine 4.5 mg/dL (0.7-1.3) Estimated GFR (Cockcroft-Gault) 13.7 Glucose Level 94 mg/dL (70-99) Calcium Level 8.3 mg/dL (8.5-10.1) Phosphorus Level 6.7 mg/dL (2.6-4.7) Albumin 2.2 g/dL (3.4-5.0) Medications Active Scripts Medications Dose Route/Sig Max Daily Dose Days Date Category Lisinopril 10 Mg Tablet 10 Mg PO DAILY 30 09/21/18 Rx Metoprolol Succinate ( Xl ) (Metoprolol Succinate) 25 Mg Tab.er.24h 25 Mg PO DAILY 30 09/21/18 Rx [Pantoprazole] 40 MG Tablet.dr 40 Mg PO BIDAC 30 08/25/18 Rx [Darbepoetin Napoleon In Polysorbat] 60 MCG/0.3 ML Disp.syrin 60 Mcg SQ WEEKLYHS 7 08/25/18 Rx Poly-Iron (Iron Polysaccharides Complex) 150 Mg Capsule 150 Mg PO BID66 30 08/25/18 Rx Impression . 1. Acute on chronic hypoxic respiratory failure secondary to acute diastolic congestive heart failure. Clinically, pneumonia less likely. 2. The patient with history of congestive heart failure. 3. The patient with chronic obstructive airway disease. 4. History of moderate to large pericardial effusion, status post pericardial window in August of this year. 5. History of left-sided pleural effusion, status post left chest tube and removal in 08/2018. 6. End-stage renal disease, on hemodialysis. 7. History of cavitary nodules, which were related to Staphylococcus infection. Overall, improved. cath Findings. Hemodynamics. Left ventricular pressure of 128/12/20, aortic root 126/72. Coronaries. Left main. The left main was a short vessel with no lesions. Left anterior descending. The LAD was a moderate size vessel with normal distribution. It had mild mid tapering of 10-15%. Left circumflex. The left circumflex was a moderate size vessel. It had no lesions. Right coronary artery. The right coronary was a moderate size vessel. It had no lesions. <Conclusion> There is mild single-vessel coronary artery disease with a mid tapering of 10-15 % in the LAD. LVEDP of 20 mmHg. Signed by : Chuck Merritt MD Electronically Approved : 10/10/2018 13:03:42 Plan . 1. Continue hemodialysis with ultrafiltration. 2. Follow chest x-ray prn 3. Continue present oxygen. 4. DC IV Abx 5. Bronchodilators 6. CATH reviewed. There is mild single-vessel coronary artery disease with a mid tapering of 10-15% in the LAD. LVEDP of 20 mmHg. 7. Clinically much better for dc home RUDI DAVALOS MD Oct 11, 2018 12:31
[2018-10-11] MEDS: LISINOPRIL 10 MG TABLET PO SCH (14:59)
[2018-10-11 15:00] VITALS: BP 135/71
[2018-10-11] MEDS ORDERED: VANCOMYCIN 500 MG in IV NORMAL SALINE 100ML 100 ML IV SCH (16:00)
[2018-10-11] MEDS ORDERED: SEVELAMER CARBONATE 800 MG TABLET. PO SCH (17:00)
--- NOTE | 2018-10-11 17:57 | NUR ---
Discharge Note: FELICE GROVE Discharge instructions and discharge home medications reviewed with Patient and a copy given. All questions have been answered and understanding verbalized. The following instructions and handouts were given: PLEURAL EFFUSION, PLEURAL EFFUSION, ESRD. Discontinued lines and drains: Peripheral IV intact. Patient discharged to Home or Self Care withFamily Membervia Wheelchair
[2018-10-11] MEDS ORDERED: DARBEPOETIN ALFA 60 MCG/0.3 ML DISP.SYRIN. SQ SCH (21:00)
--- NOTE | 2018-10-12 08:44 | DS ---
DATE OF DISCHARGE: 10/11/2018 ADMISSION DIAGNOSIS: Volume overload. DISCHARGE DIAGNOSES: Resolving volume overload, status post cardiac cath, which only showed 1 vessel disease, mild in the left anterior descending; end-stage renal disease. HOSPITAL COURSE: The patient is a pleasant middle-aged male who basically missed dialysis. He presented with volume overload. He was short of breath, hypoxic. We admitted the patient and consult Cardiology and Nephrology. He got dialysis and he went to the [facility]. It only showed a 10% lesion in the LAD. Overall, he did well. We saw him on exam yesterday morning. His heart tones were normal. His lungs were clear. We discharged. DISPOSITION: Home. ACTIVITY: As tolerated. DIET: Cardiac. MEDICATIONS: Please see the MRAD. TOTAL TIME: 32 minutes. DEVAN NICHOLE DO DR: KAYDEN/macey JOB#: [id number] / [id number]
== END 2018-10-11 18:00 | disposition home or self-care (01) | DRG 871 ==
LOC: ER 21:25 → 5 NORTH 23:30
PROVIDERS: ADMIT Internal Medicine; ATTEND Internal Medicine
PROC: 5A1D70Z Performance of Urinary Filtration, Intermittent, Less than 6 Hours Per Day (ICD-10-PCS; 2018-10-09)
PROC: 4A023N7 Measurement of Cardiac Sampling and Pressure, Left Heart, Percutaneous Approach (ICD-10-PCS; principal; 2018-10-10)
PROC: B2111ZZ Fluoroscopy of Multiple Coronary Arteries using Low Osmolar Contrast (ICD-10-PCS; 2018-10-10)
PROC: 5A1D70Z Performance of Urinary Filtration, Intermittent, Less than 6 Hours Per Day (ICD-10-PCS; 2018-10-10)
PROC: 5A1D70Z Performance of Urinary Filtration, Intermittent, Less than 6 Hours Per Day (ICD-10-PCS; 2018-10-11)
DX: A41.9 Sepsis, unspecified organism (principal); N18.6 End stage renal disease; J96.21 Acute and chronic respiratory failure with hypoxia; E43 Unspecified severe protein-calorie malnutrition; J18.9 Pneumonia, unspecified organism; I50.31 Acute diastolic (congestive) heart failure; I13.2 Hypertensive heart and chronic kidney disease with heart failure and with stage 5 chronic kidney disease, or end stage renal disease; I42.9 Cardiomyopathy, unspecified; E87.5 Hyperkalemia; J44.9 Chronic obstructive pulmonary disease, unspecified; D63.1 Anemia in chronic kidney disease; N13.9 Obstructive and reflux uropathy, unspecified; I25.10 Atherosclerotic heart disease of native coronary artery without angina pectoris; Z99.2 Dependence on renal dialysis; Z82.49 Family history of ischemic heart disease and other diseases of the circulatory system; Z86.711 Personal history of pulmonary embolism; Z87.891 Personal history of nicotine dependence; Z91.15 Patient's noncompliance with renal dialysis; Z68.20 Body mass index [BMI] 20.0-20.9, adult
CPT/HCPCS: 36415; 71045; 80053; 80069; 80202; 83605; 83880; 84484; 85025; 85610; 87040; 93005; 93458; 94640; 94760; 96374; 99152; C1760; C1769; C1892; G0269; J1200; J1644; J1940; J2060; J2250; J2543; J3010; J3370; J7030; J7040; J7620; Q9967; 99285-25; C1771

== ENCOUNTER 2018-10-17 17:13 | Emergency (ER) | payer OTHER ==
[~2018-10-17] VITALS: Ht 172.7 cm; Wt 63.5 kg
[2018-10-17 19:11] VITALS: BP 104/61
--- NOTE | 2018-10-17 20:24 | PHYS DOC ---
Past Medical History Past Medical History: CHF, COPD, Pneumonia, Renal Failure, Other Additional Past Medical Histor: INCONTINENCE (MARCELO VARMA APRN) Past Surgical History: Other Additional Past Surgical Histo: Dialysis cath right chest, LEFT KIDNEY STENT, SUPRAPUBIC CATH (MARCELO VARMA APRN) Alcohol Use: None Drug Use: None (MARCELO VARMA APRN) Adult General Chief Complaint Chief Complaint: ABDOMINAL PAIN HPI HPI 53 y/o male presents to ER via POV for c/o rt lower abd pain which started yest. He reports he has hx has hx inguinal hernia and he has been having issues the past 2 month and he has been able manually reduce at home without issues and pain subsides. He reports since yest. he has been unable to reduce the hernia and pain hasn't subsided. He denies N/V, fever, urinary sxs, or scrotal/testicular pain or swelling. He has suprapubic cath lt lower abd. Denies any change in output. He reports he is dialysis pt with schedule of /Mon and has been going without missed appts. He reports regular BMs. He denies pain into back. He denies swelling in bilat. LE or numbness/tingling. (MARCELO VARMA APRN) Review of Systems Review of Systems Constitutional: Denies fever or chills [] Eyes: Denies change in visual acuity, redness, or eye pain [] HENT: Denies nasal congestion or sore throat [] Respiratory: Denies cough or shortness of breath [] Cardiovascular: No additional information not addressed in HPI [] GI: Denies nausea, vomiting, bloody stools or diarrhea. Reports pain at rt inguinal hernia site : Denies dysuria or hematuria Musculoskeletal: Denies back pain or joint pain [] Integument: Denies rash or skin lesions [] Neurologic: Denies headache, focal weakness or sensory changes [] Endocrine: Denies polyuria or polydipsia [] All other systems were reviewed and found to be within normal limits, except as documented in this note. (MARCELO VARMA APRN) Allergies Allergies Allergies Coded Allergies Type Severity Reaction Last Updated Verified No Known Drug Allergies 11/05/18 No (FAMILIA INIGUEZ DO) Physical Exam Physical Exam Constitutional: Well developed, well nourished, no acute distress, non-toxic appearance. [] HENT: Normocephalic, atraumatic, oropharynx moist, nose normal. [] Eyes: Pupils equal, conjunctiva normal, no discharge. [] Neck: Normal range of motion, no tenderness, supple, no stridor. [] Cardiovascular: Heart rate regular rhythm, no murmur [] Lungs & Thorax: Bilateral breath sounds clear to auscultation- resp. equal/nonlabored Abdomen: Bowel sounds normal, soft- no distention/rigidity, lt lower suprapubic cath site without erythema/swelling- yellow urine outpt, rt inguinal hernia protruding- tender on exam. Gentle upward pressure applied and hernia reduced with pt reporting instant pain relief. On palp. of abd following reduction pt has no tenderness Skin: Warm, dry, no erythema, no rash. [] Back: No tenderness, no CVA tenderness. [] Extremities: No tenderness, no cyanosis, no clubbing, ROM intact, no edema. [] Neurologic: Alert and oriented X 3, normal motor function, normal sensory function, no focal deficits noted. [] Psychologic: Affect normal, judgement normal, mood normal. [] (MARCELO VARMA APRN) Current Patient Data Vital Signs Vital Signs Date Time Temp Pulse Resp B/P (MAP) Pulse Ox O2 Delivery O2 Flow Rate FiO2 10/17/18 19:11 98 104/61 (75) 99 Room Air 10/17/18 17:31 98.6 16 98.6 (INIGUEZFAMILIA KAUR DO) EKG EKG [] (MARCELO VARMA APRN) Radiology/Procedures Radiology/Procedures [] (MARCELO VARMA APRN) Course & Med Decision Making Course & Med Decision Making Pertinent Labs and Imaging studies reviewed. (See chart for details) 2004: On initial exam patient was found to have a right sided protruding inguinal hernia which was easily reduced with gentle upward palp. of the area. Patient had requested that his suprapubic catheter be changed while in the ER as he has not had it done and months. Patient reported he stood up in order to try and drain urine into his new catheter bag but states he has had minimal output as he is on a restricted food intake. Patient has no blood in his catheter bag at this time. Patient states when he stood up the hernia again "popped out"- but he was able to reduce himself. Patient states he is not having any pain. Discussed obtaining a CT and labs for further evaluation and at this time patient is not wanting any additional tests as he is not having any pain. He has a scheduled appointment Monday with his doctor and will have follow-up at that time. Patient verbalized understanding of benefits from additional testing however reports he is comfortable with no testing at this time as he is pain- free. Patient denies any nausea and is nontoxic in appearance. Patient's vital signs have been stable. With patient requesting home discharge will provide general surgery referral information on discharge paperwork with patient advised on need for scheduling an appointment as soon as possible for follow-up for his hernia. Patient's abdomen is soft with no rigidity or distention. Patient super catheter site has no swelling, tenderness, or erythema around the site. Education provided on signs and symptoms to return to ER. Discharge instructions were discussed. Patient to follow-up with primary care physician if symptoms persist or with any concerns. (MARCELO VARMA APRN) Dragon Disclaimer Dragon Disclaimer This electronic medical record was generated, in whole or in part, using a voice recognition dictation system. (MARCELO VARMA APRN) Departure Departure Impression: Primary Impression: Abdominal pain Additional Impression: Inguinal hernia Disposition: HOME, SELF-CARE Condition: STABLE Referrals: CHRIS GRIER MD (PCP) JOSEF RAMOS MD Patient Instructions: Abdominal Pain, Inguinal Hernia, Adult Additional Instructions: Keep your scheduled appointment on Monday for reevaluation and further care. As we could not rule out infection while in the ER with you not wanting any testing done he should discuss this with your doctor at that time. You were found to have an inguinal hernia which should be evaluated by a General Surgeon- call as soon as possible to schedule an appointment. Attending Signature Attending Signature I have reviewed the PA/CLINICAL OPERATIONS MANAGER's note and plan of care. I was available for consultation as needed during the patient's visit in the emergency department. I agree with the clinical impression, plan, and disposition. (FAMILIA INIGUEZ DO) Problem Qualifiers MARCELO VARMA APRN Oct 17, 2018 20:24 FAMILIA INIGUEZ DO December 04, 2018 01:06
== END 2018-10-17 20:28 | disposition home or self-care (01) ==
LOC: ER 17:13
DX: K40.90 Unilateral inguinal hernia, without obstruction or gangrene, not specified as recurrent (principal); J44.9 Chronic obstructive pulmonary disease, unspecified; N19 Unspecified kidney failure; Z86.79 Personal history of other diseases of the circulatory system; Z99.2 Dependence on renal dialysis; Z96.0 Presence of urogenital implants
CPT/HCPCS: 51702; 51705; 99284-25

== ENCOUNTER 2018-11-05 07:15 | Day surgery (SDC) | payer OTHER ==
[~2018-11-05] VITALS: Ht 172.7 cm; Wt 65.8 kg
[~2018-11-05 07:15] MED LIST changes: +BUPIVACAINE MPF 0.5% 30 ML VIAL. ONE; +HYDROmorphone 2 MG/ML VIAL IV PRN; +IV RINGERS,LACTATED 1000ML 1,000 ML IV SCH; +LIDOCAINE 1% PF 2 ML VIAL. ID PRN; +MORPHINE SULFATE 2 MG/ML VIAL. IV PRN; +ONDANSETRON PF 4 MG/2 ML VIAL. IV PRN; +PROCHLORPERAZINE 10 MG/2 ML VIAL. IV PRN; +fentaNYL PF VIAL 100 MCG/2 ML VIAL IV PRN
[2018-11-05] MEDS ORDERED: IV NORMAL SALINE 1000ML BAG 1,000 ML IV SCH (08:08)
[2018-11-05] MEDS ORDERED: fentaNYL PF VIAL 100 MCG/2 ML VIAL IV PRN ×2 (08:15)
[2018-11-05] MEDS ORDERED: FA/V1TAB PO (08:19)
[2018-11-05] MEDS ORDERED: CALC667T4 PO (08:20)
[2018-11-05] MEDS ORDERED: LIDOCAINE 2% PF 5 ML VIAL. ONE (08:26)
[2018-11-05] MEDS ORDERED: PROPOFOL 20 ML IV ONE (08:26)
[2018-11-05] MEDS ORDERED: DEXAMETHASONE SOD PHOS 20 MG/5 ML VIAL. ONE (08:26)
[2018-11-05] MEDS ORDERED: ROCURONIUM 50 MG/5 ML VIAL. ONE ×2 (08:26→08:49)
[2018-11-05] MEDS ORDERED: SEVOFLURANE 31 TO 60 MINUTES. IH ONE ×2 (08:26→08:49)
[2018-11-05] MEDS ORDERED: ONDANSETRON PF 4 MG/2 ML VIAL. ONE (08:26)
[2018-11-05 08:27] LABS: CALCIUM 8.9 mg/dL (8.5-10.1); CREATININE 8.2 mg/dL (0.7-1.3); GFR 6.9; POTASSIUM 5.2 mmol/L (3.5-5.1)
[2018-11-05] MEDS ORDERED: fentaNYL PF VIAL 100 MCG/2 ML VIAL ONE ×2 (08:50→09:57)
--- NOTE | 2018-11-05 10:05 | PDOC ---
BRIEF OPERATIVE NOTE Date: Nov 05, 2018 Pre-Op Diagnosis right inguinal hernia Post-Op Diagnosis same, indirect Procedure Performed repair with mesh Surgeon Shaka Anesthesia Type: General Blood Loss 10cc IV Fluid 200cc Specimens Obtained none Findings indirect sack, floor intact Complications none Operative Note Wk # [id number] JOSEF RAMOS MD Nov 05, 2018 10:05
[2018-11-05] MEDS: fentaNYL PF VIAL 100 MCG/2 ML VIAL IV PRN ×2 (10:08→10:26)
--- NOTE | 2018-11-05 10:09 | DISCH ---
DISCHARGE INSTRUCTIONS Condition on Discharge Condition on Discharge: Stable Activity After Discharge Activity Instructions for Disc: Activity as tolerated, Avoid exertion Lifting Instructions after Dis: No heavy lifting Exercise Instruction after Dis: Progress as tolerated Driving Instructions after Dis: Do not drive (3-4 days) Weight Bearing Status after Di: As tolerated Diet after Discharge Diet after Discharge: Renal Dialysis Diet Texture: Regular Liquid Texture: Thin Liquid Wound Incision Care Wound/Incision Care: Ice to area for comfort, No wound care needed Other wound/incision instructi: may shower Monday Checks after Discharge Checks after discharge: Check blood press - daily Contacting the DRRalph after DC Call your doctor for: If your condition worsens Treatment/Equipment after DC Adaptive Equipment Issued: None JOSEF RAMOS MD Nov 05, 2018 10:09
[2018-11-05] MEDS ORDERED: OXYC1TAB15 PO (10:12)
[2018-11-05] MEDS ORDERED: DOCU100T11 PO (10:13)
[2018-11-05] MEDS ORDERED: oxyCODONE/APAP 5/325 1 TAB TABLET PO ONE (10:30)
--- NOTE | 2018-11-05 10:50 | OP ---
DATE OF SURGERY: 11/05/2018 PREOPERATIVE DIAGNOSIS: Right inguinal hernia. POSTOPERATIVE DIAGNOSIS: Right inguinal hernia, indirect. PROCEDURE: Repair with mesh. SURGEON: Josef Ramos MD ANESTHESIA: General. ESTIMATED BLOOD LOSS: 10. IV FLUID: 200. INDICATIONS: The patient is a 53-year-old on hemodialysis with a suprapubic catheter, who has a right inguinal hernia, brought for repair. DESCRIPTION OF PROCEDURE: The patient was brought to the operating suite, given a general anesthetic, and the right groin was prepped and draped in usual sterile fashion. A 0.5% Marcaine with epinephrine was used to infiltrate the skin and subcutaneous tissue along the incision line. Incision made and dissection carried down to the external oblique fascia. Bleeders were cauterized or tied as identified. The cord was stripped off the pubis. Haines drain placed around it and dissection carried back to the internal ring where a large indirect hernia sac was identified, skeletonized and reduced. This was held in reduction with a medium plug of Phasix mesh, tacked with 2-0 PDS, taking care to avoid injury to adjacent vessels. A keyhole patch was then fashioned and placed over the floor of the canal. The slit closed with a single 2-0 PDS stitch. The cord was returned to its normal anatomical position and when a correct sponge count was obtained and hemostasis was present, the external oblique fascia was closed in running fashion with 3-0 Vicryl. Subcutaneous approximated with 3-0 Vicryl, skin closed with a subcuticular 4-0 Monocryl. Steri-Strips and sterile dressing applied. The patient prior to emergence from anesthesia, digital rectal exam failed to reveal evidence of prostatic enlargement, nodularity or rectal mass. The patient was awakened from his anesthetic and taken to the recovery room in satisfactory condition. JOSEF RAMOS MD DR: ROEL/macey JOB#: [id number] / [id number]
[2018-11-05 11:15] VITALS: BP 110/64
== END 2018-11-05 11:25 | disposition home or self-care (01) ==
LOC: SURG 07:15
PROVIDERS: ATTEND Surgery
DX: K40.90 Unilateral inguinal hernia, without obstruction or gangrene, not specified as recurrent (principal); E03.9 Hypothyroidism, unspecified; I25.5 Ischemic cardiomyopathy; I13.2 Hypertensive heart and chronic kidney disease with heart failure and with stage 5 chronic kidney disease, or end stage renal disease; N18.6 End stage renal disease; I50.9 Heart failure, unspecified; Z99.2 Dependence on renal dialysis; Z82.49 Family history of ischemic heart disease and other diseases of the circulatory system; Z87.891 Personal history of nicotine dependence; Z79.899 Other long term (current) drug therapy
CPT/HCPCS: 36415; 49505; 80048; A7015; C1781; J0696; J1100; J2001; J2405; J2704; J3010; J3490

== ENCOUNTER 2018-12-19 06:18 | Day surgery (SDC) | payer OTHER ==
[~2018-12-19] VITALS: Ht 172.7 cm; Wt 65.3 kg
[~2018-12-19 06:18] MED LIST changes: +BUPIVAC MPF-EPI 0.5%-1:200000 30 ML VIAL. ONE; -BUPIVACAINE MPF 0.5% 30 ML VIAL. ONE; +CALC667T4 PO; +DOCU100T11 PO; +FA/V1TAB PO; +HEPARIN SODIUM 5,000 UNIT in IV NORMAL SALINE 500ML BAG 500 ML IRR ONE; -HYDROmorphone 2 MG/ML VIAL IV PRN; -IV RINGERS,LACTATED 1000ML 1,000 ML IV SCH; -LIDOCAINE 1% PF 2 ML VIAL. ID PRN; -MORPHINE SULFATE 2 MG/ML VIAL. IV PRN; -ONDANSETRON PF 4 MG/2 ML VIAL. IV PRN; +OXYC1TAB15 PO; -PROCHLORPERAZINE 10 MG/2 ML VIAL. IV PRN; -fentaNYL PF VIAL 100 MCG/2 ML VIAL IV PRN
[2018-12-19] MEDS ORDERED: fentaNYL PF VIAL 100 MCG/2 ML VIAL IV PRN (07:00)
[2018-12-19] MEDS ORDERED: HYDROmorphone 2 MG/ML VIAL IV PRN (07:00)
[2018-12-19] MEDS ORDERED: ONDANSETRON PF 4 MG/2 ML VIAL. IV PRN (07:00)
[2018-12-19] MEDS ORDERED: PROCHLORPERAZINE 10 MG/2 ML VIAL. IV PRN (07:00)
[2018-12-19] MEDS ORDERED: MORPHINE SULFATE 2 MG/ML VIAL. IV PRN (07:00)
[2018-12-19] MEDS ORDERED: IV RINGERS,LACTATED 1000ML 1,000 ML IV SCH (07:00)
[2018-12-19 07:29] LABS: BASO # 0.1 x10^3/uL (0.0-0.2); BASO % 1 % (0-3); EOS # 0.7 x10^3/uL (0.0-0.7); EOS % 8 % (0-3); HEMATOCRIT 43.1 % (39.0-53.0); HEMOGLOBIN 13.9 g/dL (13.0-17.5); LYMPH # 1.7 x10^3/uL (1.0-4.8); LYMPH % 18 % (24-48); MEAN CORPUSCULAR HEMOGLOBIN 29 pg (25-35); MEAN CORPUSCULAR HGB CONC 32 g/dL (31-37); MEAN CORPUSCULAR VOLUME 91 fL (79-100); MONO # 1.3 x10^3/uL (0.0-1.1); MONO % 14 % (0-9); NEUT # 5.5 x10^3uL (1.8-7.7); NEUT % 59 % (31-73); PLATELET COUNT 214 x10^3/uL (140-400); RED BLOOD COUNT 4.77 x10^6/uL (4.30-5.70); RED CELL DISTRIBUTION WIDTH 18.3 % (11.5-14.5); WHITE BLOOD COUNT 9.4 x10^3/uL (4.0-11.0)
[2018-12-19] MEDS ORDERED: ROCURONIUM 50 MG/5 ML VIAL. ONE (07:29)
[2018-12-19] MEDS ORDERED: IV NORMAL SALINE 1000ML BAG 1,000 ML IV ONE (07:30)
[2018-12-19] MEDS ORDERED: fentaNYL PF VIAL 100 MCG/2 ML VIAL ONE ×3 (07:30→08:59)
[2018-12-19 07:31] LABS: ALBUMIN 3.7 g/dL (3.4-5.0); CALCIUM 9.6 mg/dL (8.5-10.1); CREATININE 7.9 mg/dL (0.7-1.3); GFR 7.2
[2018-12-19 07:32] LABS: POTASSIUM 4.8 mmol/L (3.5-5.1)
[2018-12-19] MEDS ORDERED: LIDOCAINE 2% PF 5 ML VIAL. ONE (07:56)
[2018-12-19] MEDS ORDERED: PROPOFOL 20 ML IV ONE (07:56)
[2018-12-19] MEDS ORDERED: ONDANSETRON PF 4 MG/2 ML VIAL. ONE (07:56)
[2018-12-19] MEDS ORDERED: DEXAMETHASONE SOD PHOS 4 MG/ML VIAL ONE (07:56)
[2018-12-19] MEDS ORDERED: ceFAZolin 2GM PREMIX 2 GM/50 ML BAG IV ONE (08:00)
[2018-12-19] MEDS ORDERED: NEOSTIGMINE METHYLSULFATE 5 MG/5 ML SYRINGE. ONE (08:05)
[2018-12-19] MEDS ORDERED: GLYCOPYRROLATE 1 MG/5 ML VIAL. ONE (08:06)
[2018-12-19] MEDS ORDERED: SEVOFLURANE 61 TO 120 MINUTES. IH ONE (08:08)
[2018-12-19] MEDS ORDERED: PHENYLEPHRINE in 0.9% NACL PF 1 MG/10 ML SYRINGE. IV ONE (08:13)
[2018-12-19] MEDS: fentaNYL PF VIAL 100 MCG/2 ML VIAL IV PRN ×2 (08:51→08:56)
--- NOTE | 2018-12-19 08:52 | DISCH ---
DISCHARGE INSTRUCTIONS Condition on Discharge Condition on Discharge: Stable Activity After Discharge Activity Instructions for Disc: Activity as tolerated, Avoid exertion Lifting Instructions after Dis: No heavy lifting Exercise Instruction after Dis: Progress as tolerated Driving Instructions after Dis: Do not drive (2-3 days) Weight Bearing Status after Di: As tolerated Diet after Discharge Diet after Discharge: Renal Dialysis Diet Texture: Regular Liquid Texture: Thin Liquid Swallowing Supervision: None needed Wound Incision Care Wound/Incision Care: No wound care needed Checks after Discharge Checks after discharge: Check blood press - daily, Weigh Yourself Daily Follow-Up Follow up with: Shaka two weeks Follow Up With: dialysis unit Treatment/Equipment after DC Adaptive Equipment Issued: None JOSEF RAMOS MD December 19, 2018 08:52
[2018-12-19] MEDS ORDERED: DOCU-150 PO (08:57)
--- NOTE | 2018-12-19 09:02 | PDOC ---
BRIEF OPERATIVE NOTE Date: December 19, 2018 Pre-Op Diagnosis ESRD on hemodialysis Post-Op Diagnosis same Procedure Performed l/s placement PD catheter Surgeon Shaka Anesthesia Type: General Blood Loss 5cc IV Fluid 300cc Specimens Obtained none Findings no adhesions Complications none Operative Note Wk # [id number] JOSEF RAMOS MD December 19, 2018 09:02
[2018-12-19] MEDS ORDERED: SEVOFLURANE 31 TO 60 MINUTES. IH ONE (09:22)
[2018-12-19] MEDS ORDERED: oxyCODONE/APAP 5/325 1 TAB TABLET PO ONE (09:30)
[2018-12-19 10:00] VITALS: BP 98/43
--- NOTE | 2018-12-19 10:40 | OP ---
DATE OF SURGERY: 12/19/2018 PREOPERATIVE DIAGNOSIS: End-stage renal disease, on hemodialysis. POSTOPERATIVE DIAGNOSIS: End-stage renal disease, on hemodialysis. PROCEDURE: Laparoscopic placement of peritoneal dialysis catheter. SURGEON: Peryc Ramos M.D. ANESTHESIA: General endotracheal. ESTIMATED BLOOD LOSS: 5 mL. INTRAVENOUS FLUID: 300 mL. DESCRIPTION OF PROCEDURE: The patient brought to the operating suite, given general endotracheal anesthetic and the abdomen prepped and draped in usual sterile fashion. The template was used to identify the insertion site and access site of the catheter. 0.5% Marcaine with epinephrine was infiltrated in the midline epigastric area. Small incision made and a 5 mm Visiport used to safely gain access into the abdominal cavity, taking care to avoid injury to abdominal contents. Pneumoperitoneum established. Camera inserted. Inspection carried out revealing no evidence of abdominal adhesions. Under direct vision, the insertion site was infiltrated with local, incised and the needle passed into the abdominal cavity. Needle removed. Dilator was passed. Catheter then threaded into the pelvis and the Dacron cuff was seated just above the peritoneum. Sheath removed and the remaining catheter was tunneled subcutaneously to the access site below the costal margin in the midclavicular line. Abdomen decompressed. Port removed. Catheter flushed with 500 mL of normal saline, which it readily accepted and then drained a similar amount. Incisions closed with 3-0 Vicryl subcutaneously and 4-0 Monocryl for subcuticular skin closure. Steri-Strips applied. Sterile dressings applied. The catheter was "packed" with 60 mL of heparinized saline. The patient was awakened from his anesthetic and taken to the recovery room in satisfactory condition. PERCY RAMOS MD DR: ROEL/macey JOB#: [id number] / [id number] MARIIA Ponce MD
== END 2018-12-19 10:08 | disposition home or self-care (01) ==
LOC: SURG 06:18
PROVIDERS: ATTEND Surgery
DX: N18.6 End stage renal disease (principal); I50.9 Heart failure, unspecified; E03.9 Hypothyroidism, unspecified; Z87.891 Personal history of nicotine dependence; Z99.2 Dependence on renal dialysis
CPT/HCPCS: 36415; 49324; 80048; 82040; 85025; A7015; J0696; J1100; J1644; J2001; J2270; J2370; J2405; J2704; J2710; J3010; J3490; J7030; J7040

== ENCOUNTER 2019-02-22 07:12 | Outpatient (CLI) | payer MEDICAID ==
[2019-02-22] VITALS (7 sets, daily range): BP systolic 95–101; BP diastolic 46–56
[~2019-02-22] VITALS: Ht 172.7 cm; Wt 68.5 kg
[~2019-02-22 07:12] MED LIST changes: -BUPIVAC MPF-EPI 0.5%-1:200000 30 ML VIAL. ONE; +DOCU-150 PO; -HEPARIN SODIUM 5,000 UNIT in IV NORMAL SALINE 500ML BAG 500 ML IRR ONE
[2019-02-22 07:47] LABS: BASO # 0.1 x10^3/uL (0.0-0.2); BASO % 1 % (0-3); EOS # 0.5 x10^3/uL (0.0-0.7); EOS % 6 % (0-3); HEMATOCRIT 31.4 % (39.0-53.0); HEMOGLOBIN 10.5 g/dL (13.0-17.5); LYMPH # 1.5 x10^3/uL (1.0-4.8); LYMPH % 21 % (24-48); MEAN CORPUSCULAR HEMOGLOBIN 31 pg (25-35); MEAN CORPUSCULAR HGB CONC 34 g/dL (31-37); MEAN CORPUSCULAR VOLUME 91 fL (79-100); MONO # 1.1 x10^3/uL (0.0-1.1); MONO % 15 % (0-9); NEUT # 4.2 x10^3/uL (1.8-7.7); NEUT % 57 % (31-73); PLATELET COUNT 224 x10^3/uL (140-400); RED BLOOD COUNT 3.46 x10^6/uL (4.30-5.70); RED CELL DISTRIBUTION WIDTH 17.9 % (11.5-14.5); WHITE BLOOD COUNT 7.3 x10^3/uL (4.0-11.0)
[2019-02-22 08:13] LABS: PROTHROMBIN TIME PATIENT 13.8 SEC (11.7-14.0)
[2019-02-22] MEDS ORDERED: LIDOCAINE 1%/EPI 1:100,000 20 ML VIAL. ONE (08:15)
[2019-02-22] MEDS ORDERED: LIDOCAINE 1%/EPI 1:100,000 20 ML VIAL. INJ ONE (09:00)
--- NOTE | 2019-02-22 13:51 | RAD ---
02/22/2019 1:46 PM Removal of right internal jugular tunnel dialysis catheter Indication: No longer requires dialysis access Discussion: The risks and benefits of the procedure were discussed the patient. Informed consent was obtained. A timeout procedure was performed. The right neck and chest including the pre-existing catheter was prepped and draped using maximum sterile barrier technique. All elements of maximal sterile barrier technique including the use of a cap, mask, sterile gown, sterile gloves, large sterile sheet, appropriate hand hygiene, and 2% chlorhexidine for cutaneous antisepsis (or acceptable alternative antiseptic per current guidelines) were followed for this procedure. 1% lidocaine was administered for local anesthesia. Subcutaneous cuff was freed with blunt dissection. The catheter was removed traction. Manual pressure was held. Fluoroscopy was performed before and after removal to confirmed complete removal. A sterile dressing was applied. No immediate complications were identified. Total fluoroscopy time: 0.1 MINUTES Dose area product: 0.3 Gycm2 Impression: Successful removal of right internal jugular tunnel dialysis catheter
== END 2019-02-22 10:23 | disposition home or self-care (01) ==
LOC: INTRAD 07:12
PROVIDERS: ATTEND Internal Medicine Nephrology
DX: Z45.2 Encounter for adjustment and management of vascular access device (principal); Z79.01 Long term (current) use of anticoagulants
CPT/HCPCS: 36415; 36589; 77001; 85025; 85610; J3490

== ENCOUNTER 2019-03-06 00:24 | Emergency (ER) | payer MEDICAID ==
[~2019-03-06] VITALS: Ht 172.7 cm; Wt 68.0 kg
[2019-03-06 00:40] VITALS: BP 116/63
--- NOTE | 2019-03-06 01:28 | PHYS DOC ---
Past Medical History Past Medical History: CHF, COPD, Pneumonia, Renal Failure, Other Additional Past Medical Histor: INCONTINENCE Past Surgical History: Other Additional Past Surgical Histo: Dialysis cath right chest, LEFT KIDNEY STENT, SUPRAPUBIC CATH Alcohol Use: None Drug Use: None Adult General Chief Complaint Chief Complaint: URINE CATHETER PROBLEM [facility] Patient is a 53 year old male who presents with complaining of urine catheter problem. Patient states he has indwelling suprapubic catheter since November 2017 with the last change of catheter in December of this year complaining of did not have any urine output for the last 3 hours states is not unusual for him. Patient has history of chronic renal failure on peritoneal dialysis but he makes urine. Patient complaining of suprapubic fullness and patient denies nausea and vomiting, fever and chills, hematuria. Review of Systems Review of Systems Constitutional: Denies fever or chills [] Eyes: Denies change in visual acuity, redness, or eye pain [] HENT: Denies nasal congestion or sore throat [] Respiratory: Denies cough or shortness of breath [] Cardiovascular: No additional information not addressed in HPI [] GI: Denies abdominal pain, nausea, vomiting, bloody stools or diarrhea [] : Denies dysuria or hematuria [] Musculoskeletal: Denies back pain or joint pain [] Integument: Denies rash or skin lesions [] Neurologic: Denies headache, focal weakness or sensory changes [] Endocrine: Denies polyuria or polydipsia [] All other systems were reviewed and found to be within normal limits, except as documented in this note. Allergies Allergies Allergies Coded Allergies Type Severity Reaction Last Updated Verified No Known Drug Allergies 12/18/18 No Physical Exam Physical Exam Constitutional: Well developed, well nourished, mild distress, non-toxic appearance. [] HENT: Normocephalic, atraumatic. Eyes: PERRLA, EOMI, conjunctiva normal, no discharge. [] Neck: Normal range of motion, no tenderness, supple, no stridor. [] Cardiovascular:Heart rate regular rhythm, no murmur [] Lungs & Thorax: Bilateral breath sounds clear to auscultation [] Abdomen: Bowel sounds normal, soft, no tenderness, no masses, no pulsatile masses, suprapubic catheter in place with complete plugging without any drainage, bladder scan showed more than 700 mL urine in the bladder. [] Skin: Warm, dry, no erythema, no rash. [] Back: No tenderness, no CVA tenderness. [] Extremities: No tenderness, no cyanosis, no clubbing, ROM intact, no edema. [] Neurologic: Alert and oriented X 3, no focal deficits noted. [] Psychologic: Affect normal, judgement normal, mood normal. [] Current Patient Data Vital Signs Vital Signs Date Time Temp Pulse Resp B/P (MAP) Pulse Ox O2 Delivery O2 Flow Rate FiO2 03/06/19 00:35 98.7 89 17 116/63 (80) 99 Room Air 98.7 EKG EKG [] Radiology/Procedures Radiology/Procedures [] Course & Med Decision Making Course & Med Decision Making Evaluation of patient in ER showed 53-year-old male patient with complaining of plugging of suprapubic catheter for the last 3 hours. Suprapubic catheter was changed with 16 [place] Holloway catheter at 0 120 and 750 mL nonbloody urine came out gradually and patient felt better. Patient was advised to follow-up with his urologist or primary care physician and return to ER as needed. Dragon Disclaimer Dragon Disclaimer This electronic medical record was generated, in whole or in part, using a voice recognition dictation system. Departure Departure Impression: Primary Impression: Catheter (urine) change required Additional Impression: ESRD (end stage renal disease) on dialysis Disposition: 01 HOME, SELF-CARE (at 0127) Condition: IMPROVED Referrals: CHRIS GRIER MD (PCP) Patient Instructions: Holloway Catheter Care, Adult Additional Instructions: Follow-up with your primary care physician in 3-5 days Return to ER if not getting better Problem Qualifiers MIRNA FLORES MD Mar 06, 2019 01:28
== END 2019-03-06 01:40 | disposition home or self-care (01) ==
LOC: ER 00:24
DX: Z46.6 Encounter for fitting and adjustment of urinary device (principal); N18.6 End stage renal disease; Z99.2 Dependence on renal dialysis; J44.9 Chronic obstructive pulmonary disease, unspecified; Z86.79 Personal history of other diseases of the circulatory system; Z96.0 Presence of urogenital implants
CPT/HCPCS: 51702; 51705; 99284-25

== ENCOUNTER → 2019-12-27 | Outpatient (CLI) | payer MEDICAID ==
[~2019-12-27] MED LIST changes: -LINE600T PO; +LINE600T12 PO
--- NOTE | 2019-12-27 15:23 | CARD ---
MR#: [id number] Date of Study: 12/27/2019 Ordering Physician: MARIANN TIRADO, Referring Physician: MARIANN TIRADO, Tech: Ludmila Rodriguez [facility] APPROVED REPORT EXAM: Two-dimensional and M-mode echocardiogram with Doppler and color Doppler. Other Information Quality : Good INDICATION Pericardial Effusion 2D DIMENSIONS Left Atrium(2D)3.6 (1.6-4.0cm)IVSd1.0 (0.7-1.1cm) Aortic Root(2D)2.6 (2.0-3.7cm)LVDd5.5 (3.9-5.9cm) LVOT Diameter2.0 (1.8-2.4cm)PWd0.9 (0.7-1.1cm) LVDs3.5 (2.5-4.0cm)FS (%) 36.0 % SV96.4 mlLVEF(%)65.1 (>50%) Aortic Valve LVOT Peak Chip.157.1cm/s Mitral Valve MV E Igbvsubn099.7cm/sMV DECEL [id number] MV A Engascbz557.3cm/sE/A Ratio0.8 Tricuspid Valve TR P. Xjjyrgjm800pa/sRAP OYPHHGUH8ydIi TR Peak Gr.37jmTqVGXW01ksUg Pulmonary Vein S1 Pptbzpde65.4cm/sD2 Tcmeyfme08.9cm/s LEFT VENTRICLE The left ventricle is normal size. There is normal left ventricular wall thickness. Left ventricle sy stolic function is low normal. The Ejection Fraction is 50-55%. Transmitral Doppler flow pattern is G rade I-abnormal relaxation pattern. RIGHT VENTRICLE The right ventricle is normal size. The right ventricular systolic function is normal. ATRIA The left atrium size is normal. The right atrium size is normal. The interatrial septum is intact wit h no evidence for an atrial septal defect or patent foramen ovale as noted on 2-D or Doppler imaging. AORTIC VALVE The aortic valve is calcified and displays decreased opening. Doppler and Color Flow revealed trace a ortic regurgitation. Doppler and color-flow analysis revealed mild aortic stenosis with an estimated valve area of 1.5 cm. MITRAL VALVE The mitral valve is calcified but opens well. There is no evidence of mitral valve prolapse. There is no mitral valve stenosis. Doppler and Color-flow revealed trace mitral regurgitation. TRICUSPID VALVE The tricuspid valve is normal in structure and function. Doppler and Color Flow revealed trace tricus pid regurgitation. The PA pressure was estimated at 33 mmHg. There is no tricuspid valve stenosis. PULMONIC VALVE The pulmonic valve is not well visualized. Doppler and Color Flow revealed no pulmonic valvular regur gitation. There is no pulmonic valvular stenosis. GREAT VESSELS The aortic root is normal in size. The ascending aorta is not well seen. The IVC is normal in size an d collapses >50% with inspiration. PERICARDIAL EFFUSION There is no evidence of significant pericardial effusion. Critical Notification Critical Value: No <Conclusion> The left ventricle is normal size. Left ventricle systolic function is low normal. The Ejection Fraction is 50-55%. Doppler and Color Flow revealed trace aortic regurgitation. Doppler and color-flow analysis revealed mild aortic stenosis. Doppler and Color-flow revealed trace mitral regurgitation. Doppler and Color Flow revealed trace tricuspid regurgitation. The PA pressure was estimated at 33 mmHg. There is no evidence of significant pericardial effusion. Signed by : Chuck Merritt MD Electronically Approved : 12/27/2019 15:22:52
== END ==
LOC: ECHO 09:58
PROVIDERS: ATTEND Internal Medicine Cardiovascular Disease
DX: I06.0 Rheumatic aortic stenosis (principal); I31.3 Pericardial effusion (noninflammatory); I70.0 Atherosclerosis of aorta
CPT/HCPCS: 93306

== ENCOUNTER 2020-01-25 12:53 | Emergency (ER) | payer MEDICAID ==
[~2020-01-25] VITALS: Ht 177.8 cm; Wt 75.7 kg
[2020-01-25 12:53] VITALS: BP 195/87
[2020-01-25] MEDS ORDERED: ACETAMINOPHEN 500 MG TABLET PO ONE (13:15)
[2020-01-25] MEDS ORDERED: CLIN150C14 PO (13:17)
--- NOTE | 2020-01-25 13:18 | PHYS DOC ---
Past Medical History Past Medical History: CHF, COPD, Pneumonia, Renal Failure, Other Additional Past Medical Histor: INCONTINENCE Past Surgical History: Other Additional Past Surgical Histo: Dialysis cath right chest, LEFT KIDNEY STENT, SUPRAPUBIC CATH Smoking Status: Never Smoker Alcohol Use: None Drug Use: None General Adult EDM: Chief Complaint: DENTAL PROBLEM HPI: HPI: Patient is a 54 year old male who presents to the emergency department with complaints of left lower posterior dental pain that has been ongoing for the last few months. Patient states he has been unable to see dentist due to the COVID- pandemic. He denies any fever, cough, sore throat, shortness of breath, wheezing, or ear pain. Patient denies any new medications, foods, detergents, new environmental exposures. He reports that he did his peritoneal dialysis last night and this morning. Patient states he forgot to take his blood pressure medication this morning. Patient reports puffiness below both of his eyes but denies any vision changes or itching. He denies any rash. Patient currently rates his pain a 10 out of 10 on the pain scale, he denies any alleviating factors, pain is worse if he touches the tooth or moves his jaw. Patient denies taking any medications for relief of his pain. He denies any radiation of the pain. Review of Systems: Review of Systems: Complete review of systems is negative unless otherwise documented in the HPI. Heart Score: Risk Factors: Risk Factors: DM, Current or recent (<one month) smoker, HTN, HLP, family history of CAD, obesity. Risk Scores: Score 0 - 3: 2.5% MACE over next 6 weeks - Discharge Home Score 4 - 6: 20.3% MACE over next 6 weeks - Admit for Clinical Observation Score 7 - 10: 72.7% MACE over next 6 weeks - Early Invasive Strategies Allergies: Allergies: Allergies Coded Allergies Type Severity Reaction Last Updated Verified No Known Drug Allergies 12/18/18 No Physical Exam: PE: Constitutional: Well developed, well nourished, no acute distress, non-toxic appearance. [] HENT: Normocephalic, atraumatic, bilateral external ears normal, nose normal; le ft posterior dental decay with missing tooth, mild erythema of lower left quadrant gingiva, no visible or palpable dental abscess [] Eyes: PERRLA, EOMI, conjunctiva normal, no discharge. [] Neck: Normal range of motion, supple, no stridor. [] Cardiovascular:Heart rate regular rhythm, no murmur Lungs & Thorax: Respirations even and unlabored, no retractions, no respiratory distress, lungs clear in all [place] Skin: Warm, dry, no erythema, no rash; facial edema noted prominently below both eyes worse on the right, no erythema or rash. [] Extremities: No cyanosis, ROM intact, no edema. [] Neurologic: Alert and oriented X 3, no focal deficits noted. [] Psychologic: Affect normal, judgement normal, mood normal. [] EKG: EKG: [] Radiology/Procedures: Radiology/Procedures: [] Course & Med Decision Making: Course & Med Decision Making Pertinent Labs and Imaging studies reviewed. (See chart for details) [] Dragon Disclaimer: Dragon Disclaimer: This electronic medical record was generated, in whole or in part, using a voice recognition dictation system. Departure Departure Impression: Primary Impression: Infected dental caries Additional Impression: Dentalgia Disposition: 01 HOME, SELF-CARE Condition: STABLE Referrals: CHRIS GRIER MD (PCP) Patient Instructions: Dental Caries, Dental Pain, [id number] Additional Instructions: Fill prescription(s) and use as directed. You may take Tylenol as needed for pain. Follow up with dentist using the referral list provided. Return to the ER if symptoms worsen. Scripts Clindamycin Hcl (CLINDAMYCIN HCL) 150 Mg Capsule 300 MG PO TID for 7 Days, #42 CAP 0 Refills Prov: MEENU DUKES APRN 01/25/20 Justicifation of Admission Dx: Justifications for Admission: Justification of Admission Dx: N/A MEENU DUKES APRN Jan 25, 2020 13:18
== END 2020-01-25 13:29 | disposition home or self-care (01) ==
LOC: ER 12:53
DX: K04.7 Periapical abscess without sinus (principal); K08.89 Other specified disorders of teeth and supporting structures; J44.9 Chronic obstructive pulmonary disease, unspecified; Z86.79 Personal history of other diseases of the circulatory system
CPT/HCPCS: 99283

== ENCOUNTER 2020-02-03 12:08 | Emergency (ER) | payer MEDICAID ==
[~2020-02-03] VITALS: Ht 167.6 cm; Wt 72.8 kg
[~2020-02-03 12:08] MED LIST changes: +CLIN150C14 PO
[2020-02-03] MEDS ORDERED: AMPICILLIN/SULBACTAM 3 GM in IV NORMAL SALINE 100ML 100 ML IV ONE (13:00)
[2020-02-03] MEDS ORDERED: DEXAMETHASONE SOD PHOS 4 MG/ML VIAL IVP ONE (13:00)
[2020-02-03] MEDS ORDERED: IV NORMAL SALINE 1000ML BAG 1,000 ML IV ONE (13:00)
[2020-02-03 13:07] LABS: CALCIUM 7.7 mg/dL (8.5-10.1); CREATININE 12.9 mg/dL (0.7-1.3); GFR 4.1
[2020-02-03 13:08] LABS: MAGNESIUM 2.1 mg/dL (1.8-2.4)
[2020-02-03 13:10] LABS: BASO # 0.1 x10^3/uL (0.0-0.2); BASO % 1 % (0-3); EOS # 0.6 x10^3/uL (0.0-0.7); EOS % 6 % (0-3); HEMATOCRIT 33.7 % (39.0-53.0); HEMOGLOBIN 10.9 g/dL (13.0-17.5); LYMPH # 1.3 x10^3/uL (1.0-4.8); LYMPH % 13 % (24-48); MEAN CORPUSCULAR HEMOGLOBIN 32 pg (25-35); MEAN CORPUSCULAR HGB CONC 32 g/dL (31-37); MEAN CORPUSCULAR VOLUME 98 fL (79-100); MONO # 1.1 x10^3/uL (0.0-1.1); MONO % 12 % (0-9); NEUT # 6.4 x10^3/uL (1.8-7.7); NEUT % 67 % (31-73); PLATELET COUNT 344 x10^3/uL (140-400); RED BLOOD COUNT 3.45 x10^6/uL (4.30-5.70); RED CELL DISTRIBUTION WIDTH 16.6 % (11.5-14.5); WHITE BLOOD COUNT 9.5 x10^3/uL (4.0-11.0)
--- NOTE | 2020-02-03 13:30 | RAD ---
CT MAXILLOFACIAL W/CONTRAST Indication: Facial edema, poor dentition Technique: Postcontrast CT imaging was performed of the maxillofacial region, multiplanar reconstruction images submitted. One or more of the following individualized dose reduction techniques were utilized for this examination: 1. Automated exposure control 2. Adjustment of the mA and/or kV according to patient size 3. Use of iterative reconstruction technique. Comparison: None Findings: There is [id number] left maxillary sinus mucosal thickening, very minimally of the right maxillary sinus. Is opacification of posterior right ethmoid air cells. There is deviation of the nasal septum to the right. There are no air-fluid levels of the paranasal sinuses. There is strandy change of the anterior subcutaneous fat of the bilateral face with extent to the neck. No soft tissue abscess is identified. Submandibular and parotid glands are symmetric in appearance. There is dental caries of most posterior left mandibular tooth. There is mild periapical lucency adjacent to the second from most posterior right mandibular tooth, also dental caries. Maxillary teeth are absent. There is multilevel cervical facet degenerative change. There is uncovertebral degenerative change bilaterally at C5-6 contributing to severe left and at least moderate right neural foramina compromise. There is grade 1 anterior spondylolisthesis C3-4 and C4-5 and minimal posterior subluxation C5 relative to C6. There is advanced degenerative disc disease at C5-6 and C6-7, also spondylosis at these levels. There is central canal stenosis at C5-6 estimated about 7-8 mm, to a lesser degree at C6-7. There is atherosclerotic calcification of the carotid arteries in the neck bilaterally. There is degree of involutional change of the visualized brain parenchyma. IMPRESSION: 1. There is dental caries of mandibular teeth as stated. There is mild periapical lucency adjacent to second from most posterior right mandibular tooth which could be due to periapical abscess and/or loosening. There is strandy change of the anterior subcutaneous fat, evidence of cellulitis. No soft tissue abscess is identified. 2. There is degenerative disc disease of the cervical spine greatest at C5-6 and C6-7, spinal stenosis at these levels greatest at C5-6. There is neural foramina compromise bilaterally at C5-6, left greater than right. Electronically signed by: Abdelrahman Ennis MD (02/03/2020 1:26 PM) [id number]
[2020-02-03] MEDS ORDERED: PRED20TA PO (13:54)
[2020-02-03] MEDS ORDERED: CHLO15MO2 PO (13:54)
[2020-02-03] MEDS ORDERED: AMOX1TAB61 PO (13:54)
--- NOTE | 2020-02-03 13:54 | PHYS DOC ---
Past Medical History Past Medical History: CHF, COPD, Hypertension, Pneumonia, Renal Failure, Other Additional Past Medical Histor: INCONTINENCE,PERITONITIS,PERITONEAL HOME DIALYSIS Past Surgical History: Other Additional Past Surgical Histo: Dialysis cath right chest,LEFT KIDNEY STENT,SUPRAPUBIC CATH Smoking Status: Former Smoker Additional Information: quit smoking 5 years ago Alcohol Use: None Drug Use: None General Adult EDM: Chief Complaint: DENTAL PROBLEM HPI: HPI: Patient is a 54 year old [f__sex] who presents with [] Review of Systems: Review of Systems: Constitutional: Denies fever or chills. [] Eyes: Denies change in visual acuity. [] HENT: Denies nasal congestion or sore throat. [] Respiratory: Denies cough or shortness of breath. [] Cardiovascular: Denies chest pain or edema. [] GI: Denies abdominal pain, nausea, vomiting, bloody stools or diarrhea. [] : Denies dysuria. [] Musculoskeletal: Denies back pain or joint pain. [] Integument: Denies rash. [] Neurologic: Denies headache, focal weakness or sensory changes. [] Endocrine: Denies polyuria or polydipsia. [] Lymphatic: Denies swollen glands. [] Psychiatric: Denies depression or anxiety. [] Heart Score: Risk Factors: Risk Factors: DM, Current or recent (<one month) smoker, HTN, HLP, family history of CAD, obesity. Risk Scores: Score 0 - 3: 2.5% MACE over next 6 weeks - Discharge Home Score 4 - 6: 20.3% MACE over next 6 weeks - Admit for Clinical Observation Score 7 - 10: 72.7% MACE over next 6 weeks - Early Invasive Strategies Current Medications: Current Medications Medications (Trade) Dose Ordered Sig/Kevin Start Time Stop Time Status Last Admin Dose Admin Ampicillin Sodium/ Sulbactam Sodium 3 gm/Sodium Chloride 100 ml @ 200 mls/hr 1X ONCE 02/03/20 13:00 02/03/20 13:29 DC 02/03/20 13:02 200 MLS/HR Dexamethasone Sodium Phosphate (Decadron) 10 mg 1X ONCE 02/03/20 13:00 02/03/20 13:01 DC 02/03/20 13:02 10 MG Iohexol (Omnipaque 300 Mg/ml) 60 ml 1X ONCE 02/03/20 14:00 02/03/20 14:01 02/03/20 13:15 60 ML Sodium Chloride 1,000 ml @ 1,000 mls/hr 1X ONCE 02/03/20 13:00 02/03/20 13:01 DC Allergies: Allergies: Allergies Coded Allergies Type Severity Reaction Last Updated Verified No Known Drug Allergies 02/03/20 No Physical Exam: PE: Constitutional: Well developed, well nourished, no acute distress, non-toxic appearance. [] HENT: Normocephalic, atraumatic, bilateral external ears normal, oropharynx moist, no oral exudates, nose normal. [] Eyes: PERRLA, EOMI, conjunctiva normal, no discharge. [] Neck: Normal range of motion, no tenderness, supple, no stridor. [] Cardiovascular:Heart rate regular rhythm, no murmur [] Lungs & Thorax: Bilateral breath sounds clear to auscultation [] Abdomen: Bowel sounds normal, soft, no tenderness, no masses, no pulsatile masses. [] Skin: Warm, dry, no erythema, no rash. [] Back: No tenderness, no CVA tenderness. [] Extremities: No tenderness, no cyanosis, no clubbing, ROM intact, no edema. [] Neurologic: Alert and oriented X 3, normal motor function, normal sensory function, no focal deficits noted. [] Psychologic: Affect normal, judgement normal, mood normal. [] Current Patient Data: Labs: Laboratory Tests Test 02/03/20 12:30 White Blood Count 9.5 x10^3/uL (4.0-11.0) Red Blood Count 3.45 x10^6/uL (4.30-5.70) L Hemoglobin 10.9 g/dL (13.0-17.5) L Hematocrit 33.7 % (39.0-53.0) L Mean Corpuscular Volume 98 fL (79-100) Mean Corpuscular Hemoglobin 32 pg (25-35) Mean Corpuscular Hemoglobin Concent 32 g/dL (31-37) Red Cell Distribution Width 16.6 % (11.5-14.5) H Platelet Count 344 x10^3/uL (140-400) Neutrophils (%) (Auto) 67 % (31-73) Lymphocytes (%) (Auto) 13 % (24-48) L Monocytes (%) (Auto) 12 % (0-9) H Eosinophils (%) (Auto) 6 % (0-3) H Basophils (%) (Auto) 1 % (0-3) Neutrophils # (Auto) 6.4 x10^3/uL (1.8-7.7) Lymphocytes # (Auto) 1.3 x10^3/uL (1.0-4.8) Monocytes # (Auto) 1.1 x10^3/uL (0.0-1.1) Eosinophils # (Auto) 0.6 x10^3/uL (0.0-0.7) Basophils # (Auto) 0.1 x10^3/uL (0.0-0.2) Sodium Level 133 mmol/L (136-145) L Potassium Level 5.0 mmol/L (3.5-5.1) Chloride Level 101 mmol/L (98-107) Carbon Dioxide Level 20 mmol/L (21-32) L Anion Gap 12 (6-14) Blood Urea Nitrogen 76 mg/dL (8-26) H Creatinine 12.9 mg/dL (0.7-1.3) H Estimated GFR (Cockcroft-Gault) 4.1 Glucose Level 167 mg/dL (70-99) H Lactic Acid Level 1.1 mmol/L (0.4-2.0) Calcium Level 7.7 mg/dL (8.5-10.1) L Magnesium Level 2.1 mg/dL (1.8-2.4) Laboratory Tests 02/03/20 12:30 Laboratory Tests 02/03/20 12:30 Vital Signs: Vital Signs Date Time Temp Pulse Resp B/P (MAP) Pulse Ox O2 Delivery O2 Flow Rate FiO2 02/03/20 12:10 98.1 89 16 134/84 (101) 98 Room Air 98.1 EKG: EKG: [] Radiology/Procedures: Radiology/Procedures: [] Course & Med Decision Making: Course & Med Decision Making Pertinent Labs and Imaging studies reviewed. (See chart for details) [] Dragon Disclaimer: Sofia Disclaimer: This electronic medical record was generated, in whole or in part, using a voice recognition dictation system. Departure Departure Impression: Primary Impression: Cellulitis and abscess of face Additional Impression: Dental caries Disposition: 07 AGAINST MEDICAL ADVICE Condition: STABLE Referrals: CHRIS GRIER MD (PCP) Patient Instructions: Cellulitis, [id number], Dental Abscess, Discharge Against Medical Advice Scripts Prednisone (PREDNISONE) 20 Mg Tablet 2 TAB PO DAILY, #8 TAB Start this prescription tomorrow, Monday02/04/20 Prov: FAMILIA INIGUEZ DO 02/03/20 Chlorhexidine Gluconate (PERIDEX) 15 Ml Mouthwash 15 ML PO BID for 10 Days, #473 ML 0 Refills Prov: FAMILIA INIGUEZ DO 02/03/20 Amoxicillin/Potassium Clav (AUGMENTIN 875-125 TABLET) 1 Each Tablet 1 TAB PO BID for 10 Days, #20 TAB Prov: FAMILIA INIGUEZ DO 02/03/20 Justicifation of Admission Dx: Justifications for Admission: Justification of Admission Dx: N/A FAMILIA INIGUEZ DO Feb 03, 2020 13:54
[2020-02-03] MEDS ORDERED: IOHEXOL 300 MG/ML 100ML VIAL. IV ONE (14:00)
[2020-02-03 14:06] VITALS: BP 158/73
== END 2020-02-03 14:10 | disposition left against medical advice (07) ==
LOC: ER 12:08
DX: K04.7 Periapical abscess without sinus (principal); K02.9 Dental caries, unspecified; J44.9 Chronic obstructive pulmonary disease, unspecified; E11.22 Type 2 diabetes mellitus with diabetic chronic kidney disease; I13.0 Hypertensive heart and chronic kidney disease with heart failure and stage 1 through stage 4 chronic kidney disease, or unspecified chronic kidney disease; N18.9 Chronic kidney disease, unspecified; I50.9 Heart failure, unspecified; Z79.4 Long term (current) use of insulin; Z87.891 Personal history of nicotine dependence; Z96.0 Presence of urogenital implants
CPT/HCPCS: 36415; 70487; 80048; 83605; 83735; 85025; 96365; 96375; 99285; J0295; J1100; Q9967

== ENCOUNTER → 2020-02-14 | Outpatient (CLI) | payer MEDICAID ==
[2020-02-03 14:06] VITALS: BP 158/73
[~2020-02-14] MED LIST changes: +AMOX1TAB61 PO; +CHLO15MO2 PO; +PRED20TA PO
--- NOTE | 2020-02-14 12:54 | RAD ---
EXAM: PARATHYROID SCINTIGRAPHY. HISTORY: Hyperparathyroidism. COMPARISON: 10/07/2018. FINDINGS: 20 mCi Tc-99m sestamibi was administered intravenously. Scintigraphic images of the parathyroid beds was performed in multiple projections before and after 3 hours delay. A focus of activity on the early images projects inferior and posterior to the thyroid gland by a a few centimeters. Mild activity persists in this location on the delayed images. This may correspond with lymph nodes on prior CT but this is unclear. Mild activity also persists on the delayed images in the left greater than right thyroid bed. This likely corresponds with the thyroid parenchyma. IMPRESSION: 1. A focus of activity within the right superior mediastinum is likely related to lymph nodes but a mediastinal parathyroid adenoma cannot be excluded. 4D CT to include the upper mediastinum could differentiate an further assess the thyroid bed if there is persistent concern. Electronically signed by: Kalie Lovell MD (02/14/2020 12:51 PM) [id number]
== END | disposition home or self-care (01) ==
LOC: NM 09:18
PROVIDERS: ATTEND Internal Medicine Nephrology
DX: E21.3 Hyperparathyroidism, unspecified (principal)
CPT/HCPCS: 78070; A9500

== ENCOUNTER 2021-01-18 12:43 | Inpatient (IN) | payer MEDICAID ==
[~2021-01-18] VITALS: Ht 172.7 cm; Wt 73.6 kg
[~2021-01-18 12:43] MED LIST changes: -CLIN150C14 PO; +CLIN150C16 PO; -DOCU-150 PO; +DOCU-158 PO; +LISI10TA16 PO; -LISI10TA2 PO
[2021-01-18] MEDS ORDERED: IOHEXOL 300 MG/ML 100ML VIAL. IV ONE (14:45)
[2021-01-18] MEDS ORDERED: CONTRAST GIVEN. MC PRN (14:45)
[2021-01-18] MEDS ORDERED: IOHEXOL 240 MG/ML 50ML VIAL. PO ONE (14:45)
[2021-01-18] MEDS ORDERED: ONDANSETRON PF 4 MG/2 ML VIAL. IVP ONE (14:45)
[2021-01-18] MEDS ORDERED: MORPHINE SULFATE 10 MG/ML VIAL. IV ONE ×2 (14:45→18:00)
[2021-01-18 14:59] LABS: BASO # 0.1 x10^3/uL (0.0-0.2); BASO % 1 % (0-3); EOS # 0.8 x10^3/uL (0.0-0.7); EOS % 9 % (0-3); HEMOGLOBIN 11.5 g/dL (13.0-17.5); LYMPH # 1.2 x10^3/uL (1.0-4.8); LYMPH % 13 % (24-48); MEAN CORPUSCULAR HEMOGLOBIN 32 pg (25-35); MEAN CORPUSCULAR HGB CONC 33 g/dL (31-37); MEAN CORPUSCULAR VOLUME 98 fL (79-100); MONO # 1.4 x10^3/uL (0.0-1.1); MONO % 14 % (0-9); NEUT % 63 % (31-73); PLATELET COUNT 328 x10^3/uL (140-400); RED BLOOD COUNT 3.58 x10^6/uL (4.30-5.70); RED CELL DISTRIBUTION WIDTH 18.1 % (11.5-14.5); WHITE BLOOD COUNT 9.5 x10^3/uL (4.0-11.0)
--- NOTE | 2021-01-18 15:02 | ED.ADGEN ---
Past Medical History Past Medical History: CHF, COPD, Hypertension, Pneumonia, Renal Failure, Other Additional Past Medical Histor: INCONTINENCE,PERITONITIS,PERITONEAL HOME DIALYSIS Past Surgical History: Other Additional Past Surgical Histo: Dialysis cath right chest,LEFT KIDNEY STENT,SUPRAPUBIC CATH Smoking Status: Former Smoker Alcohol Use: None Drug Use: None General Adult EDM: Chief Complaint: ABDOMINAL PAIN HPI: HPI: Patient is a 55-year-old male with end-stage renal disease who presents to the emergency room complaining of mid abdominal pain that started for 5 hours prior to arrival. He has had a single episode of vomiting right before arrival in the emergency room. He states he is never had pain like this previously. He states is a sharp aching pain and constant in nature. Does not seem to get better or worse. He had some loose stool this morning but denies any kind of diarrhea. He does not believe he has had fever. He was getting peritoneal dialysis but was recently transitioned to hemodialysis. He does still have a peritoneal dialysis catheter in. Review of Systems: Review of Systems: Complete ROS is negative unless otherwise documented in HPI Current Medications: Current Medications Medications (Trade) Dose Ordered Sig/Kevin Start Time Stop Time Status Last Admin Dose Admin Info (CONTRAST GIVEN -- Rx MONITORING) 1 each PRN DAILY PRN 01/18/21 14:45 01/20/21 14:44 Iohexol (Omnipaque 240 Mg/ml) 30 ml 1X ONCE 01/18/21 14:45 01/18/21 14:46 DC 01/18/21 14:48 30 ML Iohexol (Omnipaque 300 Mg/ml) 75 ml 1X ONCE 01/18/21 14:45 01/18/21 14:46 DC 01/18/21 14:45 60 ML Morphine Sulfate (Morphine Sulfate) 5 mg 1X ONCE 01/18/21 14:45 01/18/21 14:46 DC 01/18/21 15:22 5 MG Ondansetron HCl (Zofran) 4 mg 1X ONCE 01/18/21 14:45 01/18/21 14:46 DC 01/18/21 15:21 4 MG Piperacillin Sod/ Tazobactam Sod 3.375 gm/Sodium Chloride 50 ml @ 100 mls/hr 1X ONCE 01/18/21 16:45 01/18/21 17:14 DC Allergies: Allergies: Allergies Coded Allergies Type Severity Reaction Last Updated Verified No Known Drug Allergies 02/03/20 No Physical Exam: PE: General: Awake, alert, NAD. Well Nourished, well hydrated. Cooperative HEENT: Atraumatic, EOMI, PERRL, airway patent, moist oral mucosa Neck: Supple, trachea midline Respiratory: CTA bilaterally, normal effort, no wheezing/crackles CV: RRR, no murmur, cap refill <2 GI: Soft, nondistended, diffusely tender, no rebound, no guarding, no masses, peritoneal dialysis catheter MSK: No obvious deformities Skin: Warm, dry, intact Neuro: A&O x3, speech NL, sensory and motor grossly intact, no focal deficits Psych: Normal affect, normal mood, not suicidal or homicidal Current Patient Data: Labs: Laboratory Tests Test 01/18/21 14:45 01/18/21 16:10 White Blood Count 9.5 x10^3/uL (4.0-11.0) Red Blood Count 3.58 x10^6/uL (4.30-5.70) L Hemoglobin 11.5 g/dL (13.0-17.5) L Hematocrit 35.0 % (39.0-53.0) L Mean Corpuscular Volume 98 fL (79-100) Mean Corpuscular Hemoglobin 32 pg (25-35) Mean Corpuscular Hemoglobin Concent 33 g/dL (31-37) Red Cell Distribution Width 18.1 % (11.5-14.5) H Platelet Count 328 x10^3/uL (140-400) Neutrophils (%) (Auto) 63 % (31-73) Lymphocytes (%) (Auto) 13 % (24-48) L Monocytes (%) (Auto) 14 % (0-9) H Eosinophils (%) (Auto) 9 % (0-3) H Basophils (%) (Auto) 1 % (0-3) Neutrophils # (Auto) 6.0 x10^3/uL (1.8-7.7) Lymphocytes # (Auto) 1.2 x10^3/uL (1.0-4.8) Monocytes # (Auto) 1.4 x10^3/uL (0.0-1.1) H Eosinophils # (Auto) 0.8 x10^3/uL (0.0-0.7) H Basophils # (Auto) 0.1 x10^3/uL (0.0-0.2) Sodium Level 137 mmol/L (136-145) Potassium Level 5.6 mmol/L (3.5-5.1) H Chloride Level 98 mmol/L (98-107) Carbon Dioxide Level 30 mmol/L (21-32) Anion Gap 9 (6-14) Blood Urea Nitrogen 63 mg/dL (8-26) H Creatinine 8.3 mg/dL (0.7-1.3) H Estimated GFR (Cockcroft-Gault) 6.7 BUN/Creatinine Ratio 8 (6-20) Glucose Level 99 mg/dL (70-99) Calcium Level 8.7 mg/dL (8.5-10.1) Total Bilirubin 0.6 mg/dL (0.2-1.0) Aspartate Amino Transferase (AST) 57 U/L (15-37) H Alanine Aminotransferase (ALT) 71 U/L (16-63) H Alkaline Phosphatase 239 U/L (46-116) H Total Protein 8.5 g/dL (6.4-8.2) H Albumin 3.3 g/dL (3.4-5.0) L Albumin/Globulin Ratio 0.6 (1.0-1.7) L Urine Collection Type Unknown Urine Color Yellow Urine Clarity Turbid Urine pH 8.0 (<5.0-8.0) Urine Specific [place] 1.010 (1.000-1.030) Urine Protein >=300 mg/dL (NEG-TRACE) Urine Glucose (UA) Negative mg/dL (NEG) Urine Ketones (Stick) Negative mg/dL (NEG) Urine Blood Large (NEG) Urine Nitrite Positive (NEG) Urine Bilirubin Negative (NEG) Urine Urobilinogen Dipstick 0.2 mg/dL (0.2 mg/dL) Urine Leukocyte Esterase Large (NEG) Urine RBC 3-5 /HPF (0-2) Urine WBC Tntc /HPF (0-4) Urine Squamous Epithelial Cells None /LPF Urine Bacteria Many /HPF (0-FEW) Urine Mucus Mod /LPF Laboratory Tests 01/18/21 14:45 Laboratory Tests 01/18/21 14:45 Vital Signs: Vital Signs Date Time Temp Pulse Resp B/P (MAP) Pulse Ox O2 Delivery O2 Flow Rate FiO2 01/18/21 15:22 16 95 Room Air 01/18/21 13:28 97.3 70 136/73 (94) 97.3 EKG: EKG: [] Heart Score: C/O Chest Pain: N/A Risk Factors: Risk Factors: DM, Current or recent (<one month) smoker, HTN, HLP, family history of CAD, obesity. Risk Scores: Score 0 - 3: 2.5% MACE over next 6 weeks - Discharge Home Score 4 - 6: 20.3% MACE over next 6 weeks - Admit for Clinical Observation Score 7 - 10: 72.7% MACE over next 6 weeks - Early Invasive Strategies Radiology/Procedures: Radiology/Procedures: [] Course & Med Decision Making: Course & Med Decision Making Pertinent Labs and Imaging studies reviewed. (See chart for details) Patient is a 55 year-old male with a history of end-stage renal disease who presents to the Emergency Room complaining of abdominal pain and vomiting. On exam, patient has abdominal tenderness and a peritoneal dialysis catheter in. Due to patients history, age, and exam work up will need to be done to evaluate for intra-abdominal pathology. Work up ordered includes CBC, CMP, lipase, UA, CT abdomen and pelvis, and peritoneal fluid cultures. Patient's pain does not epigastric and a cardiac evaluation will not be needed for atypical pain. Ddx includes SBP, diverticulitis, appendicitis, gastroenteritis. Work up was reviewed and patient has a small bowel obstruction. Patient also has cystitis. He will be given Zosyn. Peritoneal fluid lab work is pending. NG will be placed and a KUB will be ordered. Surgery was consulted. Patient will be admitted to the hospital. Dragon Disclaimer: Dragon Disclaimer: This electronic medical record was generated, in whole or in part, using a voice recognition dictation system. Departure Departure Impression: Primary Impression: Small bowel obstruction Additional Impressions: Cystitis ESRD (end stage renal disease) Disposition: ADMITTED INPATIENT Condition: STABLE Referrals: CHRIS GRIER MD (PCP) Problem Qualifiers ISAURA MATSON MD Jan 18, 2021 15:02
[2021-01-18 15:16] LABS: CALCIUM 8.7 mg/dL (8.5-10.1); CREATININE 8.3 mg/dL (0.7-1.3); GFR 6.7; POTASSIUM 5.6 mmol/L (3.5-5.1)
[2021-01-18 15:20] LABS: ALBUMIN 3.3 g/dL (3.4-5.0); ALBUMIN/GLOBULIN RATIO 0.6 (1.0-1.7); TOTAL BILIRUBIN 0.6 mg/dL (0.2-1.0); TOTAL PROTEIN 8.5 g/dL (6.4-8.2)
--- NOTE | 2021-01-18 16:10 | RAD ---
EXAM: Abdomen and pelvis CT with intravenous contrast. HISTORY: Pain. TECHNIQUE: Computed tomographic images of the abdomen and pelvis were obtained following the administ ration of intravenous contrast. Multiplanar reformatting was performed. *One or more of the following individualized dose reduction techniques were utilized for this examina tion: 1. Automated exposure control. 2. Adjustment of the mA and/or kV according to patient size. 3. Use of iterative reconstruction technique. COMPARISON: 09/16/2018. FINDINGS: Evaluation of the lower thorax demonstrates linear atelectasis or scarring within the anter ior right lung base. There is left greater than right posterior dependent and basilar atelectasis wit h possible superimposed left basilar interstitial infiltrate. There is a trace left pleural effusion. There is cardiomegaly. There is dense calcification of the aortic valve and mitral valve annulus. No hepatic lesion is seen. There is mild gallbladder wall thickening likely due to the presence of as cites. There are clips within the [place] hepatis. No pancreatic lesion is seen. There is a splenule ad jacent to an otherwise unremarkable spleen. The adrenal glands and stomach are unremarkable. There is bilateral renal atrophy and there is suspected chronic mild hydronephrosis. There is perinep hric stranding. There is tiny right renal cortical cyst. There is a suprapubic catheter within the bl adder. There is stable urinary bladder wall calcification. There is bladder wall thickening likely du e to relative under distention. There are distended contrast and air-filled loops of small bowel throughout the abdomen, extending to a transition point to decompressed small bowel within the ventral abdomen to the left of midline. Th is favors partial small bowel obstruction. There is moderate stool throughout the colon. There is mil d colonic wall thickening likely due to the presence of ascites. There is no convincing acute colitis . There is distal colonic diverticulosis. There is moderate peritoneal fluid. There is a peritoneal catheter coursing along the left ventral ab dominal wall to a loop within the suprapubic region. There is aortic and aortic branch vessel atheros clerosis. There are multiple nonspecific mesenteric and retroperitoneal lymph nodes. These are likely reactive. There is no suspicious osseous lesion. IMPRESSION: 1. Suspected partial small bowel obstruction with transition point within the ventral peritoneal cavi ty. 2. Moderate peritoneal fluid consistent with peritoneal dialysis. The peritoneal catheter loops withi n the pelvis. 3. Bilateral renal atrophy and suspected chronic mild hydronephrosis. 4. Colonic diverticulosis. 5. Bilateral mid and lower lung airspace disease likely due to atelectasis or scarring. Possibility o f superimposed left basilar interstitial infiltrate is not excluded. Correlate with symptomatology. 6. Suprapubic catheter. There is bladder wall thickening which may be due to cystitis or relative und er distention. Electronically signed by: Portia Hitchcock MD (01/18/2021 4:08 PM) [id number]
[2021-01-18 16:19] LABS: BILIRUBIN,URINE NEGATIVE (NEG); CLARITY,URINE TURBID; COLOR,URINE YELLOW; NITRITE,URINE POSITIVE (NEG); PROTEIN,URINE >=300 mg/dL (NEG-TRACE); UROBILINOGEN,URINE 0.2 mg/dL (0.2 mg/dL)
[2021-01-18 16:27] LABS: BACTERIA,URINE MANY /HPF (0-FEW); WBC,URINE TNTC /HPF (0-4)
[2021-01-18] MEDS ORDERED: PIPERACILLIN/TAZOBACTAM 3.375 GM in IV NORMAL SALINE 50ML 50 ML IV ONE (16:45)
[2021-01-18 17:38] LABS: BF COLOR YELLOW; BF SOURCE PERITONEAL
[2021-01-18 17:39] LABS: BF CLARITY CLEAR
[2021-01-18 17:41] LABS: BF MON % 86 %; BF PMN % 9 %; BF RBC COUNT 5 /cmm (Not Established); BF WBC COUNT 120 /cmm (Not Established)
[2021-01-18 17:43] LABS: BF OTHER % 5 %
[2021-01-18] MEDS ORDERED: BENZOCAINE ONE 20% MUCOSAL SPRAY. MM (18:00)
--- NOTE | 2021-01-18 18:18 | PDOC1 ---
History and Physical Date of Service: DOS: DATE: 01/18/21 TIME: 18:14 Chief Complaint: Chief Complain: ABD pain History of Present Illness: HPI: 55-year-old male with end-stage renal disease who presents to the emergency room complaining of mid abdominal pain that started this morning after he had 2 bowel movements. Patient stated that he did had some diarrhea that was loose as well. Denies any bloody bowel movements or hematemesis. He has had a single episode of vomiting right before arrival in the emergency room. He states he is never had pain like this previously. He states is a sharp aching pain and constant in nature. Does not seem to get better or worse. He does not believe he has had fever. He was getting peritoneal dialysis but was recently transitioned to h emodialysis. He does still have a peritoneal dialysis catheter in. Upon further questioning, patient did start peritoneal dialysis about a year ago. He is unsure of why he started dialysis. Past Medical/Surgical History: PMH/PSH: Past Medical History: CHF, COPD, Hypertension, Pneumonia, Renal Failure, INCONTINENCE,PERITONITIS,PERITONEAL HOME DIALYSIS Past Surgical History: Dialysis cath right chest,LEFT KIDNEY STENT,SUPRAPUBIC CATH Allergies: Allergies: Coded Allergies: No Known Drug Allergies (Unverified , 02/03/20) Family History: Family History: REviewed and significant for CAD Social History: Social History: Smoking Status: Former Smoker Alcohol Use: None Drug Use: None Current Medications: Current Medications Current Medications Morphine Sulfate (Morphine Sulfate) 5 mg 1X ONCE IV Last administered on 01/18/21at 15:22; Start 01/18/21 at 14:45; Stop 01/18/21 at 14:46; Status DC Ondansetron HCl (Zofran) 4 mg 1X ONCE IVP Last administered on 01/18/21at 15:21; Start 01/18/21 at 14:45; Stop 01/18/21 at 14:46; Status DC Iohexol (Omnipaque 240 Mg/ml) 30 ml 1X ONCE PO Last administered on 01/18/21at 14:48; Start 01/18/21 at 14:45; Stop 01/18/21 at 14:46; Status DC Iohexol (Omnipaque 300 Mg/ml) 75 ml 1X ONCE IV Last administered on 01/18/21at 14:45; Start 01/18/21 at 14:45; Stop 01/18/21 at 14:46; Status DC Info (CONTRAST GIVEN -- Rx MONITORING) 1 each PRN DAILY PRN MC SEE COMMENTS; Start 01/18/21 at 14:45; Stop 01/20/21 at 14:44 Piperacillin Sod/ Tazobactam Sod 3.375 gm/Sodium Chloride 50 ml @ 100 mls/hr 1X ONCE IV Last administered on 01/18/21at 16:45; Start 01/18/21 at 16:45; Stop 01/18/21 at 17:14; Status DC Morphine Sulfate (Morphine Sulfate) 5 mg 1X ONCE IV Last administered on 01/18/21at 17:56; Start 01/18/21 at 18:00; Stop 01/18/21 at 18:01; Status DC Benzocaine (Hurricaine One) 1 spray 1X ONCE MM ; Start 01/18/21 at 18:00; Stop 01/18/21 at 18:01; Status DC Active Scripts Active Prednisone 20 Mg Tablet 2 Tab PO DAILY Start this prescription tomorrow, Monday02/04/20 Peridex (Chlorhexidine Gluconate) 15 Ml Mouthwash 15 Ml PO BID 10 Days Augmentin 875-125 Tablet (Amoxicillin/Potassium Clav) 1 Each Tablet 1 Tab PO BID 10 Days Clindamycin Hcl 150 Mg Capsule 300 Mg PO TID 7 Days Lisinopril 10 Mg Tablet 10 Mg PO DAILY 30 Days Metoprolol Succinate ( Xl ) (Metoprolol Succinate) 25 Mg Tab.er.24h 25 Mg PO DAILY 30 Days [Pantoprazole] 40 MG Tablet.dr 40 Mg PO BIDAC 30 Days [Darbepoetin Napoleon In Polysorbat] 60 MCG/0.3 ML Disp.syrin 60 Mcg SQ WEEKLYHS 7 Days Poly-Iron (Iron Polysaccharides Complex) 150 Mg Capsule 150 Mg PO BID66 30 Days Reported Stool Softener (Docusate Sodium) 100 Mg Capsule 100 Mg PO DIRECTED Percocet 5-325 Mg Tablet (Oxycodone/Acetaminophen) 1 Each Tablet 1 Tab PO PRN Q4HRS PRN Calcium Acetate 667 Mg Tablet 667 Mg PO TIDWMEALS Dialyvite 3,000 Tablet (Fa/Vit Bcomp&C/Se/Min Aa/Zn) 1 Each Tablet 1 Each PO ATER DIALYSIS PRN ROS: Review of Systems Review of System REVIEW OF SYSTEMS: GENERAL: Denies weakness SKIN: No bruising, hair changes or rashes. EYES: No blurred, double or loss of vision. NOSE AND THROAT: No history of nosebleeds, hoarseness or sore throat. HEART: No history of palpitations, chest pain or shortness of breath on exertion. LUNGS: Denies cough, hemoptysis, wheezing or shortness of breath. GASTROINTESTINAL: Denies changes in appetite, nausea, vomiting, diarrhea or constipation. GENITOURINARY: No history of frequency, urgency, hesitancy or nocturia. NEUROLOGIC: Denies history of numbness, tingling, or tremor. PSYCHIATRIC: No history of panic, anxiety or depression. ENDOCRINE: No history of heat or cold intolerance, polyuria or polydipsia. EXTREMITIES: Denies joint pain, pain on walking or stiffness. Physical Exam: Vital Signs: Vital Signs Date Time Temp Pulse Resp B/P (MAP) Pulse Ox O2 Delivery O2 Flow Rate FiO2 01/18/21 17:56 16 95 Room Air 01/18/21 13:28 97.3 70 136/73 (94) 97.3 Physcial Exam: GEN: No apparent distress. Alert and oriented HEENT: Normal cephalic, atraumatic, external auditory canals are patent EYES: Extraocular muscles are intact, pupil are equally round and reactive to light and accommodation MUSCULOSKELETAL: Well developed , well nourished, good range of motion ENDOCRINE: No thyromegaly was palpated LYMPHATICS: No cervical chain or axillary nodes were noted HEMATOPOIETIC: No bruising NECK: Supple, no JVD, no thyromegaly was noted LUNGS: Clear to auscultation in all lung payne without rhonchi or wheezing HEART: RRR, S!, S2 present. Peripheral pulses intact, no obvious murmurs noted ABDOMEN: Soft, nontender. Positive bowel sounds, no organomegaly, normal bowel sounds EXTREMITIES: Without clubbing, cyanosis, or edema. Pedal pulses intact. Negative Homans sign NEUROLOGIC: Normal speech and tone. A&O x 3, moves all extremities, no obvious focal deficits PSYCHIATRIC: Normal affect, normal mood. Stable SKIN: No ulcerations or rashes, good skin turgor, no jaundice VASCULAR: Good capillary refill, neurovascular bundle appears to be intact Labs: Labs: Laboratory Tests Test 01/18/21 14:45 01/18/21 15:15 01/18/21 16:10 White Blood Count 9.5 x10^3/uL (4.0-11.0) Red Blood Count 3.58 x10^6/uL (4.30-5.70) Hemoglobin 11.5 g/dL (13.0-17.5) Hematocrit 35.0 % (39.0-53.0) Mean Corpuscular Volume 98 fL (79-100) Mean Corpuscular Hemoglobin 32 pg (25-35) Mean Corpuscular Hemoglobin Concent 33 g/dL (31-37) Red Cell Distribution Width 18.1 % (11.5-14.5) Platelet Count 328 x10^3/uL (140-400) Neutrophils (%) (Auto) 63 % (31-73) Lymphocytes (%) (Auto) 13 % (24-48) Monocytes (%) (Auto) 14 % (0-9) Eosinophils (%) (Auto) 9 % (0-3) Basophils (%) (Auto) 1 % (0-3) Neutrophils # (Auto) 6.0 x10^3/uL (1.8-7.7) Lymphocytes # (Auto) 1.2 x10^3/uL (1.0-4.8) Monocytes # (Auto) 1.4 x10^3/uL (0.0-1.1) Eosinophils # (Auto) 0.8 x10^3/uL (0.0-0.7) Basophils # (Auto) 0.1 x10^3/uL (0.0-0.2) Sodium Level 137 mmol/L (136-145) Potassium Level 5.6 mmol/L (3.5-5.1) Chloride Level 98 mmol/L (98-107) Carbon Dioxide Level 30 mmol/L (21-32) Anion Gap 9 (6-14) Blood Urea Nitrogen 63 mg/dL (8-26) Creatinine 8.3 mg/dL (0.7-1.3) Estimated GFR (Cockcroft-Gault) 6.7 BUN/Creatinine Ratio 8 (6-20) Glucose Level 99 mg/dL (70-99) Calcium Level 8.7 mg/dL (8.5-10.1) Total Bilirubin 0.6 mg/dL (0.2-1.0) Aspartate Amino Transf (AST/SGOT) 57 U/L (15-37) Alanine Aminotransferase (ALT/SGPT) 71 U/L (16-63) Alkaline Phosphatase 239 U/L (46-116) Total Protein 8.5 g/dL (6.4-8.2) Albumin 3.3 g/dL (3.4-5.0) Albumin/Globulin Ratio 0.6 (1.0-1.7) Body Fluid Source Peritoneal Body Fluid Color Yellow Body Fluid Clarity Clear Body Fluid Nucleated Cells 120 /cmm (Not Established) Body Fluid Mononuclear WBCs (%) 86 % Body Fluid Polymorphonuclear Cells 9 % Body Fluid Total RBCs Counted 5 /cmm (Not Established) Body Fluid Other Cells (%) 5 % Urine Collection Type Unknown Urine Color Yellow Urine Clarity Turbid Urine pH 8.0 (<5.0-8.0) Urine Specific [place] 1.010 (1.000-1.030) Urine Protein >=300 mg/dL (NEG-TRACE) Urine Glucose (UA) Negative mg/dL (NEG) Urine Ketones (Stick) Negative mg/dL (NEG) Urine Blood Large (NEG) Urine Nitrite Positive (NEG) Urine Bilirubin Negative (NEG) Urine Urobilinogen Dipstick 0.2 mg/dL (0.2 mg/dL) Urine Leukocyte Esterase Large (NEG) Urine RBC 3-5 /HPF (0-2) Urine WBC Tntc /HPF (0-4) Urine Squamous Epithelial Cells None /LPF Urine Bacteria Many /HPF (0-FEW) Urine Mucus Mod /LPF Laboratory Tests Test 01/18/21 14:45 01/18/21 15:15 01/18/21 16:10 White Blood Count 9.5 x10^3/uL (4.0-11.0) Red Blood Count 3.58 x10^6/uL (4.30-5.70) Hemoglobin 11.5 g/dL (13.0-17.5) Hematocrit 35.0 % (39.0-53.0) Mean Corpuscular Volume 98 fL (79-100) Mean Corpuscular Hemoglobin 32 pg (25-35) Mean Corpuscular Hemoglobin Concent 33 g/dL (31-37) Red Cell Distribution Width 18.1 % (11.5-14.5) Platelet Count 328 x10^3/uL (140-400) Neutrophils (%) (Auto) 63 % (31-73) Lymphocytes (%) (Auto) 13 % (24-48) Monocytes (%) (Auto) 14 % (0-9) Eosinophils (%) (Auto) 9 % (0-3) Basophils (%) (Auto) 1 % (0-3) Neutrophils # (Auto) 6.0 x10^3/uL (1.8-7.7) Lymphocytes # (Auto) 1.2 x10^3/uL (1.0-4.8) Monocytes # (Auto) 1.4 x10^3/uL (0.0-1.1) Eosinophils # (Auto) 0.8 x10^3/uL (0.0-0.7) Basophils # (Auto) 0.1 x10^3/uL (0.0-0.2) Sodium Level 137 mmol/L (136-145) Potassium Level 5.6 mmol/L (3.5-5.1) Chloride Level 98 mmol/L (98-107) Carbon Dioxide Level 30 mmol/L (21-32) Anion Gap 9 (6-14) Blood Urea Nitrogen 63 mg/dL (8-26) Creatinine 8.3 mg/dL (0.7-1.3) Estimated GFR (Cockcroft-Gault) 6.7 BUN/Creatinine Ratio 8 (6-20) Glucose Level 99 mg/dL (70-99) Calcium Level 8.7 mg/dL (8.5-10.1) Total Bilirubin 0.6 mg/dL (0.2-1.0) Aspartate Amino Transf (AST/SGOT) 57 U/L (15-37) Alanine Aminotransferase (ALT/SGPT) 71 U/L (16-63) Alkaline Phosphatase 239 U/L (46-116) Total Protein 8.5 g/dL (6.4-8.2) Albumin 3.3 g/dL (3.4-5.0) Albumin/Globulin Ratio 0.6 (1.0-1.7) Body Fluid Source Peritoneal Body Fluid Color Yellow Body Fluid Clarity Clear Body Fluid Nucleated Cells 120 /cmm (Not Established) Body Fluid Mononuclear WBCs (%) 86 % Body Fluid Polymorphonuclear Cells 9 % Body Fluid Total RBCs Counted 5 /cmm (Not Established) Body Fluid Other Cells (%) 5 % Urine Collection Type Unknown Urine Color Yellow Urine Clarity Turbid Urine pH 8.0 (<5.0-8.0) Urine Specific [place] 1.010 (1.000-1.030) Urine Protein >=300 mg/dL (NEG-TRACE) Urine Glucose (UA) Negative mg/dL (NEG) Urine Ketones (Stick) Negative mg/dL (NEG) Urine Blood Large (NEG) Urine Nitrite Positive (NEG) Urine Bilirubin Negative (NEG) Urine Urobilinogen Dipstick 0.2 mg/dL (0.2 mg/dL) Urine Leukocyte Esterase Large (NEG) Urine RBC 3-5 /HPF (0-2) Urine WBC Tntc /HPF (0-4) Urine Squamous Epithelial Cells None /LPF Urine Bacteria Many /HPF (0-FEW) Urine Mucus Mod /LPF Images: Images PROCEDURE: CT ABD PELV W/ORAL&IV CONTRAST IMPRESSION: 1. Suspected partial small bowel obstruction with transition point within the ventral peritoneal cavity. 2. Moderate peritoneal fluid consistent with peritoneal dialysis. The peritoneal catheter loops within the pelvis. 3. Bilateral renal atrophy and suspected chronic mild hydronephrosis. 4. Colonic diverticulosis. 5. Bilateral mid and lower lung airspace disease likely due to atelectasis or scarring. Possibility of superimposed left basilar interstitial infiltrate is not excluded. Correlate with symptomatology. 6. Suprapubic catheter. There is bladder wall thickening which may be due to cystitis or relative under distention. Assessment/Plan Assessment/Plan Acute ABD pain due to partial small bowel obstruction with transition point within the ventral peritoneal cavity. Moderate peritoneal fluid consistent with peritoneal dialysis mild Hyperkalemia Mild Transaminitis moderate protien malnutrition Anemia of ESRD Admit to medicine for further management General surgery consult for his small bowel obstruction Keep n.p.o. NG tube if not there is nausea vomiting IV pain control Nephrology consult for dialysis Heparin for DVT prophylaxis Protonic GI prophylaxis ADA diet Full code Discussed with RN and SW Disposition inpatient management as above Surrogate decision maker is Sarah castellanos Justifications for Admission Other Justification KAILA CURRY MD Jan 18, 2021 18:18
[2021-01-18] MEDS ORDERED: SENNOSIDES 8.6 MG TABLET PO PRN (18:30)
[2021-01-18] MEDS ORDERED: DEXTROSE 50% 25 GM / 50ML DISP.SYRIN. IV PRN (18:30)
[2021-01-18] MEDS ORDERED: MORPHINE SULFATE 2 MG/ML INJ. IVP PRN (18:30)
[2021-01-18] MEDS ORDERED: ACETAMINOPHEN 325 MG TABLET. PO PRN (18:30)
[2021-01-18] MEDS ORDERED: HYDROcodone/APAP 5/325MG 1 TAB TABLET PO PRN (18:30)
[2021-01-18] MEDS ORDERED: MORPHINE SULFATE 2 MG/ML INJ. IV PRN (18:30)
[2021-01-18 19:15] VITALS: BP 114/62
[2021-01-18] MEDS ORDERED: CINA30TA6 PO (20:01)
[2021-01-18] MEDS ORDERED: FURO40TA4 PO (20:01)
[2021-01-18] MEDS ORDERED: TRAZ-118 PO (20:01)
[2021-01-18] MEDS ORDERED: METO50CA PO (20:01)
[2021-01-18] MEDS ORDERED: SEVE800T8 PO (20:01)
[2021-01-18] MEDS ORDERED: CALC0.25 PO (20:01)
[2021-01-18] MEDS ORDERED: FERR210T PO (20:01)
[2021-01-18] MEDS: HYDROmorphone 2 MG/ML INJ. IVP PRN (22:27)
[2021-01-18] MEDS: HEPARIN for SUB-Q USE 5,000 UNIT/ML VIAL. SQ SCH (22:30)
[2021-01-18] MEDS: ONDANSETRON PF 4 MG/2 ML VIAL. IVP PRN (22:37)
[2021-01-18 23:00] VITALS: BP 116/62
[2021-01-19 03:00] VITALS: BP 126/74
[2021-01-19 04:51] LABS: BASO # 0.1 x10^3/uL (0.0-0.2); BASO % 1 % (0-3); EOS # 0.5 x10^3/uL (0.0-0.7); EOS % 4 % (0-3); HEMATOCRIT 38.5 % (39.0-53.0); HEMOGLOBIN 12.4 g/dL (13.0-17.5); LYMPH # 0.7 x10^3/uL (1.0-4.8); LYMPH % 5 % (24-48); MEAN CORPUSCULAR HEMOGLOBIN 32 pg (25-35); MEAN CORPUSCULAR HGB CONC 32 g/dL (31-37); MEAN CORPUSCULAR VOLUME 98 fL (79-100); MONO # 1.5 x10^3/uL (0.0-1.1); MONO % 12 % (0-9); NEUT # 10.3 x10^3/uL (1.8-7.7); NEUT % 79 % (31-73); PLATELET COUNT 340 x10^3/uL (140-400); RED BLOOD COUNT 3.93 x10^6/uL (4.30-5.70); WHITE BLOOD COUNT 13.1 x10^3/uL (4.0-11.0)
[2021-01-19] MEDS: HYDROmorphone 2 MG/ML INJ. IVP PRN ×4 (05:16→19:09)
[2021-01-19] MEDS: ONDANSETRON PF 4 MG/2 ML VIAL. IVP PRN (05:16)
[2021-01-19 05:17] LABS: CALCIUM 8.7 mg/dL (8.5-10.1); CREATININE 9.2 mg/dL (0.7-1.3); MAGNESIUM 2.1 mg/dL (1.8-2.4)
[2021-01-19 05:26] LABS: PHOSPHORUS 11.2 mg/dL (2.6-4.7)
[2021-01-19 05:28] LABS: POTASSIUM 6.5 mmol/L (3.5-5.1)
[2021-01-19] MEDS ORDERED: FUROSEMIDE 40 MG/4 ML VIAL. IVP PRN (06:30)
[2021-01-19 07:00] VITALS: BP 92/55
--- NOTE | 2021-01-19 09:20 | PDOC2 ---
LAMBERTJASPREET Peggy PHOTOGRAMMETRIC TECHNICIAN 01/19/21 0920: CONSULT Date of Consult Date of Consult DATE: 01/19/21 TIME: 09:17 Reason for Consult Reason for Consult: SBO Referring Physician Referring Physician: ER Identification/Chief Complaint Chief Complaint abdominal pain Source Source: Chart review, Patient History of Present Illness Reason for Visit: Acute onset upper abdominal pain yesterday. Prior to onset of pain had a regular stool. Denies diarrhea. Reports emesis yesterday, none today. No flatus Does have a PD cath and a suprapubic cath Is scheduled with Dr Navarrete to have PD removed Past Medical History Cardiovascular: No pertinent hx, HTN Pulmonary: Bronchitis, COPD, Other CENTRAL NERVOUS SYSTEM: Other GI: No pertinent hx, GI bleed Heme/Onc: Anemia NOS Hepatobiliary: No pertinent hx Psych: No pertinent hx Rheumatologic: No pertinent hx Infectious disease: Other Renal/: Chronic renal insuff, Chronic renal failure, UTI, Other Endocrine: No pertinent hx, Hyperparathyroidism Past Surgical History Past Surgical History: Other (PD cath, suprapubic cath) Family History Family History: Coronary Artery Disease Social History ALCOHOL: none Drugs: None Lives: with Family Current Problem List Problem List Problems Medical Problems: (1) Cystitis Status: Acute (2) ESRD (end stage renal disease) Status: Acute (3) Small bowel obstruction Status: Acute Current Medications Current Medications Current Medications Morphine Sulfate (Morphine Sulfate) 5 mg 1X ONCE IV Last administered on 01/18/21at 15:22; Start 01/18/21 at 14:45; Stop 01/18/21 at 14:46; Status DC Ondansetron HCl (Zofran) 4 mg 1X ONCE IVP Last administered on 01/18/21at 15:21; Start 01/18/21 at 14:45; Stop 01/18/21 at 14:46; Status DC Iohexol (Omnipaque 240 Mg/ml) 30 ml 1X ONCE PO Last administered on 01/18/21at 14:48; Start 01/18/21 at 14:45; Stop 01/18/21 at 14:46; Status DC Iohexol (Omnipaque 300 Mg/ml) 75 ml 1X ONCE IV Last administered on 01/18/21at 14:45; Start 01/18/21 at 14:45; Stop 01/18/21 at 14:46; Status DC Info (CONTRAST GIVEN -- Rx MONITORING) 1 each PRN DAILY PRN MC SEE COMMENTS; Start 01/18/21 at 14:45; Stop 01/20/21 at 14:44 Piperacillin Sod/ Tazobactam Sod 3.375 gm/Sodium Chloride 50 ml @ 100 mls/hr 1X ONCE IV Last administered on 01/18/21at 16:45; Start 01/18/21 at 16:45; Stop 01/18/21 at 17:14; Status DC Morphine Sulfate (Morphine Sulfate) 5 mg 1X ONCE IV Last administered on 01/18/21at 17:56; Start 01/18/21 at 18:00; Stop 01/18/21 at 18:01; Status DC Benzocaine (Hurricaine One) 1 spray 1X ONCE MM Last administered on 01/18/21at 18:00; Start 01/18/21 at 18:00; Stop 01/18/21 at 18:01; Status DC Sennosides (Senna) 17.2 mg PRN BID PRN PO CONSTIPATION; Start 01/18/21 at 18:30 Docusate Sodium (Colace) 100 mg PRN DAILY PRN PO HARD STOOLS; Start 01/18/21 at 18:30 Ondansetron HCl (Zofran) 4 mg PRN Q6HRS PRN IVP NAUSEA/VOMITING Last administered on 01/19/21at 05:16; Start 01/18/21 at 18:30 Dextrose (Dextrose 50%-Water Syringe) 12.5 gm PRN Q15MIN PRN IV SEE COMMENTS; Start 01/18/21 at 18:30 Acetaminophen (Tylenol) 650 mg PRN Q4HRS PRN PO TEMP OVER 100.4F OR MILD PAIN; Start 01/18/21 at 18:30 Heparin Sodium (Porcine) (Heparin Sodium) 5,000 unit Q12HR SQ Last administered on 01/18/21at 22:30; Start 01/18/21 at 21:00 Acetaminophen/ Hydrocodone Bitart (Lortab 5/325) 1 tab PRN Q4HRS PRN PO MILD PAIN 1-3; Start 01/18/21 at 18:30 Acetaminophen/ Hydrocodone Bitart (Lortab 5/325) 2 tab PRN Q4HRS PRN PO MODERATE PAIN, SEVERE PAIN; Start 01/18/21 at 18:30 Morphine Sulfate (Morphine Sulfate) 1 mg PRN Q1HR PRN IV PAIN; Start 01/18/21 at 18:30; Stop 01/19/21 at 04:03; Status DC Morphine Sulfate (Morphine Sulfate) 2 mg PRN Q2HR PRN IVP SEVERE PAIN 7-10 Last administered on 01/18/21at 19:34; Start 01/18/21 at 18:30; Stop 01/19/21 at 04:03; Status DC Hydromorphone HCl (Dilaudid) 0.2 mg PRN Q2HR PRN IVP PAIN Last administered on 01/19/21at 05:16; Start 01/18/21 at 21:15 Furosemide (Lasix) 40 mg PRN 1X PRN IVP HYPERTENSION SEE INSTRUCTIONS; Start 01/19/21 at 06:30 Active Scripts Active Poly-Iron (Iron Polysaccharides Complex) 150 Mg Capsule 150 Mg PO [id number] 30 Days Reported Renagel (Sevelamer Hcl) 800 Mg Tablet 2 Tab PO TIDWMEALS Calcitriol 0.25 Mcg Capsule 1 Cap PO DAILY Furosemide 40 Mg Tablet 1 Tab PO DAILY Kapspargo Sprinkle (Metoprolol Succinate) 50 Mg Cap.spr.24 50 Mg PO DAILY Cinacalcet HCl 30 Mg Tablet 30 Mg PO QMWF Ferric Citrate 210 Mg Tablet 2 Tab PO TID Trazodone Hcl 50 Mg Tablet 1 Tab PO QHS Stool Softener (Docusate Sodium) 100 Mg Capsule 100 Mg PO PRN BID PRN Allergies Allergies: Coded Allergies: No Known Drug Allergies (Unverified , 02/03/20) ROS General: YES: Chills; No: Fatigue PSYCHOLOGICAL ROS: No: Anxiety, Depression Eyes: No Blurry vision, No Double vision HEENT: No: Heacaches, Sore Throat Hematological and Lymphatic: No: Bleeding Problems, Blood Clots Respiratory: No: Cough, Shortness of breath Cardiovascular: No Chest Pain, No Palpitations Gastrointestinal: Yes Other (see hpi) Genitourinary: No Dysuria, No Retention Musculoskeletal: No Joint Pain, No Muscle Pain Neurological: No Impaired Coord/balance, No Numbness/Tingling Skin: No Pruritus, No Rash Physical Exam General: Alert, Oriented X3, Cooperative HEENT: Atraumatic, PERRLA Lungs: Clear to auscultation Heart: Regular rate, Normal S1, Normal S2 Abdomen: Soft, Other (mildly distended, pd cath in place, lap scars noted ) Extremities: No clubbing, No cyanosis Skin: No rashes, No breakdown Neuro: Normal gait, Normal speech Psych/Mental Status: Mental status NL, Mood NL MUSCULOSKELETAL: No deformity, No swelling Vitals VITALS Vital Signs Date Time Temp Pulse Resp B/P (MAP) Pulse Ox O2 Delivery O2 Flow Rate FiO2 01/19/21 07:00 99.0 83 18 92/55 (67) 92 Room Air 99.0 01/19/21 05:46 2.0 Labs Labs Laboratory Tests Test 01/18/21 14:45 01/18/21 15:15 01/18/21 16:10 01/19/21 04:00 White Blood Count 9.5 x10^3/uL (4.0-11.0) 13.1 x10^3/uL (4.0-11.0) Red Blood Count 3.58 x10^6/uL (4.30-5.70) 3.93 x10^6/uL (4.30-5.70) Hemoglobin 11.5 g/dL (13.0-17.5) 12.4 g/dL (13.0-17.5) Hematocrit 35.0 % (39.0-53.0) 38.5 % (39.0-53.0) Mean Corpuscular Volume 98 fL (79-100) 98 fL (79-100) Mean Corpuscular Hemoglobin 32 pg (25-35) 32 pg (25-35) Mean Corpuscular Hemoglobin Concent 33 g/dL (31-37) 32 g/dL (31-37) Red Cell Distribution Width 18.1 % (11.5-14.5) 18.0 % (11.5-14.5) Platelet Count 328 x10^3/uL (140-400) 340 x10^3/uL (140-400) Neutrophils (%) (Auto) 63 % (31-73) 79 % (31-73) Lymphocytes (%) (Auto) 13 % (24-48) 5 % (24-48) Monocytes (%) (Auto) 14 % (0-9) 12 % (0-9) Eosinophils (%) (Auto) 9 % (0-3) 4 % (0-3) Basophils (%) (Auto) 1 % (0-3) 1 % (0-3) Neutrophils # (Auto) 6.0 x10^3/uL (1.8-7.7) 10.3 x10^3/uL (1.8-7.7) Lymphocytes # (Auto) 1.2 x10^3/uL (1.0-4.8) 0.7 x10^3/uL (1.0-4.8) Monocytes # (Auto) 1.4 x10^3/uL (0.0-1.1) 1.5 x10^3/uL (0.0-1.1) Eosinophils # (Auto) 0.8 x10^3/uL (0.0-0.7) 0.5 x10^3/uL (0.0-0.7) Basophils # (Auto) 0.1 x10^3/uL (0.0-0.2) 0.1 x10^3/uL (0.0-0.2) Sodium Level 137 mmol/L (136-145) 135 mmol/L (136-145) Potassium Level 5.6 mmol/L (3.5-5.1) 6.5 mmol/L (3.5-5.1) Chloride Level 98 mmol/L (98-107) 97 mmol/L (98-107) Carbon Dioxide Level 30 mmol/L (21-32) 25 mmol/L (21-32) Anion Gap 9 (6-14) 13 (6-14) Blood Urea Nitrogen 63 mg/dL (8-26) 68 mg/dL (8-26) Creatinine 8.3 mg/dL (0.7-1.3) 9.2 mg/dL (0.7-1.3) Estimated GFR (Cockcroft-Gault) 6.7 6.0 BUN/Creatinine Ratio 8 (6-20) Glucose Level 99 mg/dL (70-99) 86 mg/dL (70-99) Calcium Level 8.7 mg/dL (8.5-10.1) 8.7 mg/dL (8.5-10.1) Total Bilirubin 0.6 mg/dL (0.2-1.0) Aspartate Amino Transf (AST/SGOT) 57 U/L (15-37) Alanine Aminotransferase (ALT/SGPT) 71 U/L (16-63) Alkaline Phosphatase 239 U/L (46-116) Total Protein 8.5 g/dL (6.4-8.2) Albumin 3.3 g/dL (3.4-5.0) Albumin/Globulin Ratio 0.6 (1.0-1.7) Body Fluid Source Peritoneal Body Fluid Color Yellow Body Fluid Clarity Clear Body Fluid Nucleated Cells 120 /cmm (Not Established) Body Fluid Mononuclear WBCs (%) 86 % Body Fluid Polymorphonuclear Cells 9 % Body Fluid Total RBCs Counted 5 /cmm (Not Established) Body Fluid Other Cells (%) 5 % Urine Collection Type Unknown Urine Color Yellow Urine Clarity Turbid Urine pH 8.0 (<5.0-8.0) Urine Specific [place] 1.010 (1.000-1.030) Urine Protein >=300 mg/dL (NEG-TRACE) Urine Glucose (UA) Negative mg/dL (NEG) Urine Ketones (Stick) Negative mg/dL (NEG) Urine Blood Large (NEG) Urine Nitrite Positive (NEG) Urine Bilirubin Negative (NEG) Urine Urobilinogen Dipstick 0.2 mg/dL (0.2 mg/dL) Urine Leukocyte Esterase Large (NEG) Urine RBC 3-5 /HPF (0-2) Urine WBC Tntc /HPF (0-4) Urine Squamous Epithelial Cells None /LPF Urine Bacteria Many /HPF (0-FEW) Urine Mucus Mod /LPF Phosphorus Level 11.2 mg/dL (2.6-4.7) Magnesium Level 2.1 mg/dL (1.8-2.4) Laboratory Tests Test 01/18/21 14:45 01/18/21 15:15 01/18/21 16:10 01/19/21 04:00 White Blood Count 9.5 x10^3/uL (4.0-11.0) 13.1 x10^3/uL (4.0-11.0) Red Blood Count 3.58 x10^6/uL (4.30-5.70) 3.93 x10^6/uL (4.30-5.70) Hemoglobin 11.5 g/dL (13.0-17.5) 12.4 g/dL (13.0-17.5) Hematocrit 35.0 % (39.0-53.0) 38.5 % (39.0-53.0) Mean Corpuscular Volume 98 fL (79-100) 98 fL (79-100) Mean Corpuscular Hemoglobin 32 pg (25-35) 32 pg (25-35) Mean Corpuscular Hemoglobin Concent 33 g/dL (31-37) 32 g/dL (31-37) Red Cell Distribution Width 18.1 % (11.5-14.5) 18.0 % (11.5-14.5) Platelet Count 328 x10^3/uL (140-400) 340 x10^3/uL (140-400) Neutrophils (%) (Auto) 63 % (31-73) 79 % (31-73) Lymphocytes (%) (Auto) 13 % (24-48) 5 % (24-48) Monocytes (%) (Auto) 14 % (0-9) 12 % (0-9) Eosinophils (%) (Auto) 9 % (0-3) 4 % (0-3) Basophils (%) (Auto) 1 % (0-3) 1 % (0-3) Neutrophils # (Auto) 6.0 x10^3/uL (1.8-7.7) 10.3 x10^3/uL (1.8-7.7) Lymphocytes # (Auto) 1.2 x10^3/uL (1.0-4.8) 0.7 x10^3/uL (1.0-4.8) Monocytes # (Auto) 1.4 x10^3/uL (0.0-1.1) 1.5 x10^3/uL (0.0-1.1) Eosinophils # (Auto) 0.8 x10^3/uL (0.0-0.7) 0.5 x10^3/uL (0.0-0.7) Basophils # (Auto) 0.1 x10^3/uL (0.0-0.2) 0.1 x10^3/uL (0.0-0.2) Sodium Level 137 mmol/L (136-145) 135 mmol/L (136-145) Potassium Level 5.6 mmol/L (3.5-5.1) 6.5 mmol/L (3.5-5.1) Chloride Level 98 mmol/L (98-107) 97 mmol/L (98-107) Carbon Dioxide Level 30 mmol/L (21-32) 25 mmol/L (21-32) Anion Gap 9 (6-14) 13 (6-14) Blood Urea Nitrogen 63 mg/dL (8-26) 68 mg/dL (8-26) Creatinine 8.3 mg/dL (0.7-1.3) 9.2 mg/dL (0.7-1.3) Estimated GFR (Cockcroft-Gault) 6.7 6.0 BUN/Creatinine Ratio 8 (6-20) Glucose Level 99 mg/dL (70-99) 86 mg/dL (70-99) Calcium Level 8.7 mg/dL (8.5-10.1) 8.7 mg/dL (8.5-10.1) Total Bilirubin 0.6 mg/dL (0.2-1.0) Aspartate Amino Transf (AST/SGOT) 57 U/L (15-37) Alanine Aminotransferase (ALT/SGPT) 71 U/L (16-63) Alkaline Phosphatase 239 U/L (46-116) Total Protein 8.5 g/dL (6.4-8.2) Albumin 3.3 g/dL (3.4-5.0) Albumin/Globulin Ratio 0.6 (1.0-1.7) Body Fluid Source Peritoneal Body Fluid Color Yellow Body Fluid Clarity Clear Body Fluid Nucleated Cells 120 /cmm (Not Established) Body Fluid Mononuclear WBCs (%) 86 % Body Fluid Polymorphonuclear Cells 9 % Body Fluid Total RBCs Counted 5 /cmm (Not Established) Body Fluid Other Cells (%) 5 % Urine Collection Type Unknown Urine Color Yellow Urine Clarity Turbid Urine pH 8.0 (<5.0-8.0) Urine Specific [place] 1.010 (1.000-1.030) Urine Protein >=300 mg/dL (NEG-TRACE) Urine Glucose (UA) Negative mg/dL (NEG) Urine Ketones (Stick) Negative mg/dL (NEG) Urine Blood Large (NEG) Urine Nitrite Positive (NEG) Urine Bilirubin Negative (NEG) Urine Urobilinogen Dipstick 0.2 mg/dL (0.2 mg/dL) Urine Leukocyte Esterase Large (NEG) Urine RBC 3-5 /HPF (0-2) Urine WBC Tntc /HPF (0-4) Urine Squamous Epithelial Cells None /LPF Urine Bacteria Many /HPF (0-FEW) Urine Mucus Mod /LPF Phosphorus Level 11.2 mg/dL (2.6-4.7) Magnesium Level 2.1 mg/dL (1.8-2.4) Assessment/Plan Assessment/Plan SBO vs ileus will repeat plain films this AM, if not improved consider SBFT ESRD ORQUIDEA ARELLANO MD 01/19/21 1107: CONSULT Assessment/Plan Assessment/Plan Patient seen and examined by me currently resting comfortably in bed dialysis. Minimal abdominal pain no nausea vomiting. CT reviewed showing dilated loops of small bowel consistent with ileus versus small bowel obstruction. Agree with Thompson assessment plan conservative therapies possible small bowel follow- through if not improved by tomorrow JASPREET VERDIN APRN Jan 19, 2021 09:20 ORQUIDEA ARELLANO MD Jan 19, 2021 11:07
[2021-01-19] MEDS ORDERED: ALBUMIN HUMAN 25% 200 ML IV PRN (10:00)
[2021-01-19] MEDS ORDERED: IV NORMAL SALINE 1000ML BAG 1,000 ML IV PRN ×2 (10:00)
[2021-01-19] MEDS ORDERED: DIALYSIS PATIENT. MC PRN ×2 (10:00)
[2021-01-19] MEDS: HEPARIN for SUB-Q USE 5,000 UNIT/ML VIAL. SQ SCH ×2 (10:30→20:54)
[2021-01-19 11:00] VITALS: BP 99/58
--- NOTE | 2021-01-19 11:50 | PDOC2 ---
CONSULT Date of Consult Date of Consult DATE: 01/19/21 TIME: 11:45 Reason for Consult Reason for Consult: ESRD AND HIGH K Referring Physician Referring Physician: ANTOINETTE Identification/Chief Complaint Chief Complaint ABD PAIN Source Source: Chart review, Patient History of Present Illness Reason for Visit: THIS IS A 55 YR OLD WITH ABD PAIN. DX WITH SBO AND SURGICAL EVALUATION ONGOING AT THIS TIME. HAS ESRD AND IS ON OP HD ON TTS. LAST HD WAS SAT. LABS ARE C/W ESRD. HYPERKALEMIA NOTED. HAD BEEN ON PD BUT TRANSITIONED TO HD RECENTLY. HAS A SPC WELL AND SCHEDULED TO SEE DR MONTGOMERY TO HAVE PD CATHETER REMOVED. OTHER PERTINENT LABS INCLUDE LEUCOCYTOSIS. Past Medical History Cardiovascular: No pertinent hx, HTN Pulmonary: Bronchitis, COPD, Other CENTRAL NERVOUS SYSTEM: Other GI: No pertinent hx, GI bleed Heme/Onc: Anemia NOS Hepatobiliary: No pertinent hx Psych: No pertinent hx Rheumatologic: No pertinent hx Infectious disease: Other Renal/: Chronic renal insuff, Chronic renal failure, UTI, Other Endocrine: No pertinent hx, Hyperparathyroidism Past Surgical History Past Surgical History: Other (PD cath, suprapubic cath) Family History Family History: Coronary Artery Disease Social History ALCOHOL: none Drugs: None Lives: with Family Current Problem List Problem List Problems Medical Problems: (1) Cystitis Status: Acute (2) ESRD (end stage renal disease) Status: Acute (3) Small bowel obstruction Status: Acute Current Medications Current Medications Current Medications Morphine Sulfate (Morphine Sulfate) 5 mg 1X ONCE IV Last administered on 01/18/21at 15:22; Start 01/18/21 at 14:45; Stop 01/18/21 at 14:46; Status DC Ondansetron HCl (Zofran) 4 mg 1X ONCE IVP Last administered on 01/18/21at 15:21; Start 01/18/21 at 14:45; Stop 01/18/21 at 14:46; Status DC Iohexol (Omnipaque 240 Mg/ml) 30 ml 1X ONCE PO Last administered on 01/18/21at 14:48; Start 01/18/21 at 14:45; Stop 01/18/21 at 14:46; Status DC Iohexol (Omnipaque 300 Mg/ml) 75 ml 1X ONCE IV Last administered on 01/18/21at 14:45; Start 01/18/21 at 14:45; Stop 01/18/21 at 14:46; Status DC Info (CONTRAST GIVEN -- Rx MONITORING) 1 each PRN DAILY PRN MC SEE COMMENTS; Start 01/18/21 at 14:45; Stop 01/20/21 at 14:44 Piperacillin Sod/ Tazobactam Sod 3.375 gm/Sodium Chloride 50 ml @ 100 mls/hr 1X ONCE IV Last administered on 01/18/21at 16:45; Start 01/18/21 at 16:45; Stop 01/18/21 at 17:14; Status DC Morphine Sulfate (Morphine Sulfate) 5 mg 1X ONCE IV Last administered on 01/18at 17:56; Start 01/18/21 at 18:00; Stop 01/18/21 at 18:01; Status DC Benzocaine (Hurricaine One) 1 spray 1X ONCE MM Last administered on 01/18/21at 18:00; Start 01/18/21 at 18:00; Stop 01/18/21 at 18:01; Status DC Sennosides (Senna) 17.2 mg PRN BID PRN PO CONSTIPATION; Start 01/18/21 at 18:30 Docusate Sodium (Colace) 100 mg PRN DAILY PRN PO HARD STOOLS; Start 01/18/21 at 18:30 Ondansetron HCl (Zofran) 4 mg PRN Q6HRS PRN IVP NAUSEA/VOMITING Last administered on 01/19/21at 05:16; Start 01/18/21 at 18:30 Dextrose (Dextrose 50%-Water Syringe) 12.5 gm PRN Q15MIN PRN IV SEE COMMENTS; Start 01/18/21 at 18:30 Acetaminophen (Tylenol) 650 mg PRN Q4HRS PRN PO TEMP OVER 100.4F OR MILD PAIN; Start 01/18/21 at 18:30 Heparin Sodium (Porcine) (Heparin Sodium) 5,000 unit Q12HR SQ Last administered on 01/19/21at 10:30; Start 01/18/21 at 21:00 Acetaminophen/ Hydrocodone Bitart (Lortab 5/325) 1 tab PRN Q4HRS PRN PO MILD PAIN 1-3; Start 01/18/21 at 18:30 Acetaminophen/ Hydrocodone Bitart (Lortab 5/325) 2 tab PRN Q4HRS PRN PO MODERATE PAIN, SEVERE PAIN; Start 01/18/21 at 18:30 Morphine Sulfate (Morphine Sulfate) 1 mg PRN Q1HR PRN IV PAIN; Start 01/18/21 at 18:30; Stop 01/19/21 at 04:03; Status DC Morphine Sulfate (Morphine Sulfate) 2 mg PRN Q2HR PRN IVP SEVERE PAIN 7-10 Last administered on 01/18/21at 19:34; Start 01/18/21 at 18:30; Stop 01/19/21 at 04:03; Status DC Hydromorphone HCl (Dilaudid) 0.2 mg PRN Q2HR PRN IVP PAIN Last administered on 01/19/21at 10:26; Start 01/18/21 at 21:15 Furosemide (Lasix) 40 mg PRN 1X PRN IVP HYPERTENSION SEE INSTRUCTIONS; Start 01/19/21 at 06:30 Sodium Chloride 1,000 ml @ 1,000 mls/hr Q1H PRN IV hypotension; Start 01/19/21 at 10:00; Stop 01/19/21 at 15:59 Albumin Human 200 ml @ 200 mls/hr 1X PRN PRN IV Hypotension; Start 01/19/21 at 10:00; Stop 01/19/21 at 15:59 Sodium Chloride 1,000 ml @ 400 mls/hr Q2H30M PRN IV PATENCY; Start 01/19/21 at 10:00; Stop 01/19/21 at 21:59 Info (PHARMACY MONITORING -- do not chart) 1 each PRN DAILY PRN MC SEE COMMENTS; Start 01/19/21 at 10:00; Status UNV Info (PHARMACY MONITORING -- do not chart) 1 each PRN DAILY PRN MC SEE COMMENTS; Start 01/19/21 at 10:00 Active Scripts Active Poly-Iron (Iron Polysaccharides Complex) 150 Mg Capsule 150 Mg PO [id number] 30 Days Reported Renagel (Sevelamer Hcl) 800 Mg Tablet 2 Tab PO TIDWMEALS Calcitriol 0.25 Mcg Capsule 1 Cap PO DAILY Furosemide 40 Mg Tablet 1 Tab PO DAILY Kapspargo Sprinkle (Metoprolol Succinate) 50 Mg Cap.spr.24 50 Mg PO DAILY Cinacalcet HCl 30 Mg Tablet 30 Mg PO QMWF Ferric Citrate 210 Mg Tablet 2 Tab PO TID Trazodone Hcl 50 Mg Tablet 1 Tab PO QHS Stool Softener (Docusate Sodium) 100 Mg Capsule 100 Mg PO PRN BID PRN Allergies Allergies: Coded Allergies: No Known Drug Allergies (Unverified , 02/03/20) ROS General: YES: Fatigue PSYCHOLOGICAL ROS: YES: Anxiety ALLERGY AND IMMUNOLOGY: YES: Seasonal Allergies Respiratory: YES: Cough Gastrointestinal: Yes Abdominal Pain Genitourinary: YES Other (ANURIA) Musculoskeletal: Yes Muscular Weakness Neurological: Yes Weakness Skin: Yes Dry Skin Physical Exam General: Alert, Oriented X3, Cooperative, No acute distress HEENT: Atraumatic, PERRLA Lungs: Clear to auscultation Heart: Regular rate Abdomen: Normal bowel sounds, Soft, Other (NO REBOUND) Extremities: No cyanosis, No edema Neuro: Normal speech Psych/Mental Status: Mental status NL, Mood NL MUSCULOSKELETAL: No joint tenderness, No deformity Vitals VITALS Vital Signs Date Time Temp Pulse Resp B/P (MAP) Pulse Ox O2 Delivery O2 Flow Rate FiO2 01/19/21 07:00 99.0 83 18 92/55 (67) 92 Room Air 99.0 01/19/21 05:46 2.0 Labs Labs Laboratory Tests Test 01/18/21 14:45 01/18/21 15:15 01/18/21 16:10 01/19/21 04:00 White Blood Count 9.5 x10^3/uL (4.0-11.0) 13.1 x10^3/uL (4.0-11.0) Red Blood Count 3.58 x10^6/uL (4.30-5.70) 3.93 x10^6/uL (4.30-5.70) Hemoglobin 11.5 g/dL (13.0-17.5) 12.4 g/dL (13.0-17.5) Hematocrit 35.0 % (39.0-53.0) 38.5 % (39.0-53.0) Mean Corpuscular Volume 98 fL (79-100) 98 fL (79-100) Mean Corpuscular Hemoglobin 32 pg (25-35) 32 pg (25-35) Mean Corpuscular Hemoglobin Concent 33 g/dL (31-37) 32 g/dL (31-37) Red Cell Distribution Width 18.1 % (11.5-14.5) 18.0 % (11.5-14.5) Platelet Count 328 x10^3/uL (140-400) 340 x10^3/uL (140-400) Neutrophils (%) (Auto) 63 % (31-73) 79 % (31-73) Lymphocytes (%) (Auto) 13 % (24-48) 5 % (24-48) Monocytes (%) (Auto) 14 % (0-9) 12 % (0-9) Eosinophils (%) (Auto) 9 % (0-3) 4 % (0-3) Basophils (%) (Auto) 1 % (0-3) 1 % (0-3) Neutrophils # (Auto) 6.0 x10^3/uL (1.8-7.7) 10.3 x10^3/uL (1.8-7.7) Lymphocytes # (Auto) 1.2 x10^3/uL (1.0-4.8) 0.7 x10^3/uL (1.0-4.8) Monocytes # (Auto) 1.4 x10^3/uL (0.0-1.1) 1.5 x10^3/uL (0.0-1.1) Eosinophils # (Auto) 0.8 x10^3/uL (0.0-0.7) 0.5 x10^3/uL (0.0-0.7) Basophils # (Auto) 0.1 x10^3/uL (0.0-0.2) 0.1 x10^3/uL (0.0-0.2) Sodium Level 137 mmol/L (136-145) 135 mmol/L (136-145) Potassium Level 5.6 mmol/L (3.5-5.1) 6.5 mmol/L (3.5-5.1) Chloride Level 98 mmol/L (98-107) 97 mmol/L (98-107) Carbon Dioxide Level 30 mmol/L (21-32) 25 mmol/L (21-32) Anion Gap 9 (6-14) 13 (6-14) Blood Urea Nitrogen 63 mg/dL (8-26) 68 mg/dL (8-26) Creatinine 8.3 mg/dL (0.7-1.3) 9.2 mg/dL (0.7-1.3) Estimated GFR (Cockcroft-Gault) 6.7 6.0 BUN/Creatinine Ratio 8 (6-20) Glucose Level 99 mg/dL (70-99) 86 mg/dL (70-99) Calcium Level 8.7 mg/dL (8.5-10.1) 8.7 mg/dL (8.5-10.1) Total Bilirubin 0.6 mg/dL (0.2-1.0) Aspartate Amino Transf (AST/SGOT) 57 U/L (15-37) Alanine Aminotransferase (ALT/SGPT) 71 U/L (16-63) Alkaline Phosphatase 239 U/L (46-116) Total Protein 8.5 g/dL (6.4-8.2) Albumin 3.3 g/dL (3.4-5.0) Albumin/Globulin Ratio 0.6 (1.0-1.7) Body Fluid Source Peritoneal Body Fluid Color Yellow Body Fluid Clarity Clear Body Fluid Nucleated Cells 120 /cmm (Not Established) Body Fluid Mononuclear WBCs (%) 86 % Body Fluid Polymorphonuclear Cells 9 % Body Fluid Total RBCs Counted 5 /cmm (Not Established) Body Fluid Other Cells (%) 5 % Body Fluid Glucose 82 mg/dL (.) Body Fluid Total Protein 4.6 g/dL (.) Body Fluid Lactate Dehydrogenase 237 IU/L (.) Urine Collection Type Unknown Urine Color Yellow Urine Clarity Turbid Urine pH 8.0 (<5.0-8.0) Urine Specific [place] 1.010 (1.000-1.030) Urine Protein >=300 mg/dL (NEG-TRACE) Urine Glucose (UA) Negative mg/dL (NEG) Urine Ketones (Stick) Negative mg/dL (NEG) Urine Blood Large (NEG) Urine Nitrite Positive (NEG) Urine Bilirubin Negative (NEG) Urine Urobilinogen Dipstick 0.2 mg/dL (0.2 mg/dL) Urine Leukocyte Esterase Large (NEG) Urine RBC 3-5 /HPF (0-2) Urine WBC Tntc /HPF (0-4) Urine Squamous Epithelial Cells None /LPF Urine Bacteria Many /HPF (0-FEW) Urine Mucus Mod /LPF Phosphorus Level 11.2 mg/dL (2.6-4.7) Magnesium Level 2.1 mg/dL (1.8-2.4) Laboratory Tests Test 01/18/21 14:45 01/18/21 15:15 01/18/21 16:10 01/19/21 04:00 White Blood Count 9.5 x10^3/uL (4.0-11.0) 13.1 x10^3/uL (4.0-11.0) Red Blood Count 3.58 x10^6/uL (4.30-5.70) 3.93 x10^6/uL (4.30-5.70) Hemoglobin 11.5 g/dL (13.0-17.5) 12.4 g/dL (13.0-17.5) Hematocrit 35.0 % (39.0-53.0) 38.5 % (39.0-53.0) Mean Corpuscular Volume 98 fL (79-100) 98 fL (79-100) Mean Corpuscular Hemoglobin 32 pg (25-35) 32 pg (25-35) Mean Corpuscular Hemoglobin Concent 33 g/dL (31-37) 32 g/dL (31-37) Red Cell Distribution Width 18.1 % (11.5-14.5) 18.0 % (11.5-14.5) Platelet Count 328 x10^3/uL (140-400) 340 x10^3/uL (140-400) Neutrophils (%) (Auto) 63 % (31-73) 79 % (31-73) Lymphocytes (%) (Auto) 13 % (24-48) 5 % (24-48) Monocytes (%) (Auto) 14 % (0-9) 12 % (0-9) Eosinophils (%) (Auto) 9 % (0-3) 4 % (0-3) Basophils (%) (Auto) 1 % (0-3) 1 % (0-3) Neutrophils # (Auto) 6.0 x10^3/uL (1.8-7.7) 10.3 x10^3/uL (1.8-7.7) Lymphocytes # (Auto) 1.2 x10^3/uL (1.0-4.8) 0.7 x10^3/uL (1.0-4.8) Monocytes # (Auto) 1.4 x10^3/uL (0.0-1.1) 1.5 x10^3/uL (0.0-1.1) Eosinophils # (Auto) 0.8 x10^3/uL (0.0-0.7) 0.5 x10^3/uL (0.0-0.7) Basophils # (Auto) 0.1 x10^3/uL (0.0-0.2) 0.1 x10^3/uL (0.0-0.2) Sodium Level 137 mmol/L (136-145) 135 mmol/L (136-145) Potassium Level 5.6 mmol/L (3.5-5.1) 6.5 mmol/L (3.5-5.1) Chloride Level 98 mmol/L (98-107) 97 mmol/L (98-107) Carbon Dioxide Level 30 mmol/L (21-32) 25 mmol/L (21-32) Anion Gap 9 (6-14) 13 (6-14) Blood Urea Nitrogen 63 mg/dL (8-26) 68 mg/dL (8-26) Creatinine 8.3 mg/dL (0.7-1.3) 9.2 mg/dL (0.7-1.3) Estimated GFR (Cockcroft-Gault) 6.7 6.0 BUN/Creatinine Ratio 8 (6-20) Glucose Level 99 mg/dL (70-99) 86 mg/dL (70-99) Calcium Level 8.7 mg/dL (8.5-10.1) 8.7 mg/dL (8.5-10.1) Total Bilirubin 0.6 mg/dL (0.2-1.0) Aspartate Amino Transf (AST/SGOT) 57 U/L (15-37) Alanine Aminotransferase (ALT/SGPT) 71 U/L (16-63) Alkaline Phosphatase 239 U/L (46-116) Total Protein 8.5 g/dL (6.4-8.2) Albumin 3.3 g/dL (3.4-5.0) Albumin/Globulin Ratio 0.6 (1.0-1.7) Body Fluid Source Peritoneal Body Fluid Color Yellow Body Fluid Clarity Clear Body Fluid Nucleated Cells 120 /cmm (Not Established) Body Fluid Mononuclear WBCs (%) 86 % Body Fluid Polymorphonuclear Cells 9 % Body Fluid Total RBCs Counted 5 /cmm (Not Established) Body Fluid Other Cells (%) 5 % Body Fluid Glucose 82 mg/dL (.) Body Fluid Total Protein 4.6 g/dL (.) Body Fluid Lactate Dehydrogenase 237 IU/L (.) Urine Collection Type Unknown Urine Color Yellow Urine Clarity Turbid Urine pH 8.0 (<5.0-8.0) Urine Specific Raymond 1.010 (1.000-1.030) Urine Protein >=300 mg/dL (NEG-TRACE) Urine Glucose (UA) Negative mg/dL (NEG) Urine Ketones (Stick) Negative mg/dL (NEG) Urine Blood Large (NEG) Urine Nitrite Positive (NEG) Urine Bilirubin Negative (NEG) Urine Urobilinogen Dipstick 0.2 mg/dL (0.2 mg/dL) Urine Leukocyte Esterase Large (NEG) Urine RBC 3-5 /HPF (0-2) Urine WBC Tntc /HPF (0-4) Urine Squamous Epithelial Cells None /LPF Urine Bacteria Many /HPF (0-FEW) Urine Mucus Mod /LPF Phosphorus Level 11.2 mg/dL (2.6-4.7) Magnesium Level 2.1 mg/dL (1.8-2.4) Assessment/Plan Assessment/Plan IMP SBO HYPERKALEMIA ESRD HTN FAILED PD PLAN ANTIBIOTICS SURGERY FOLLOWING SUGGEST PD CATH REMOVAL AND FLUID ANALYSIS AT THAT TIME HD TODAY UF TO TW CLIFF WHEN NEEDED WILL FOLLOW MARIIA VIDAL MD Jan 19, 2021 11:50
--- NOTE | 2021-01-19 13:50 | NUR ---
SS following up with discharge planning. SS reviewed pt chart and discussed with pt RN. Pt is from home and is currently on room air. Pt has outpatient hemodialysis at [facility], ; fax [phone], Monday, , and Monday. SS will continue to follow for discharge planning.
[2021-01-19 14:58] VITALS: BP 104/60
--- NOTE | 2021-01-19 15:13 | PDOC ---
[employer] PROGRESS NOTE Date of Service DOS: DATE: 01/19/21 TIME: 15:12 Chief Complaint Chief Complaint Acute ABD pain due to partial small bowel obstruction with transition point within the ventral peritoneal cavity. Moderate peritoneal fluid consistent with peritoneal dialysis mild Hyperkalemia Mild Transaminitis moderate protien malnutrition Anemia of ESRD History of Present Illness History of Present Illness General surgery consult following for his small bowel obstruction feels better, sleeping in dialysis cont current Keep n.p.o. NG tube if not there is nausea vomiting IV pain control Nephrology consult for dialysis Vitals/I&O Vitals/I&O: Vital Signs Date Time Temp Pulse Resp B/P (MAP) Pulse Ox O2 Delivery O2 Flow Rate FiO2 01/19/21 14:58 98.0 83 18 104/60 (75) 95 Room Air 98.0 01/19/21 05:46 2.0 I & O 01/18/21 01/18/21 01/19/21 15:00 23:00 07:00 Intake Total 0 ml Output Total 200 ml 525 ml Balance -200 ml -525 ml Physical Exam General: Alert, Oriented X3, Cooperative, No acute distress Heart: Regular rate Lungs: Clear Abdomen: Normal bowel sounds, Soft, Other (NO REBOUND) Extremities: No cyanosis, No edema Skin: No rashes, No breakdown Labs Labs: Laboratory Tests Test 01/18/21 15:15 01/18/21 16:10 01/19/21 04:00 Body Fluid Source Peritoneal Body Fluid Color Yellow Body Fluid Clarity Clear Body Fluid Nucleated Cells 120 /cmm (Not Established) Body Fluid Mononuclear WBCs (%) 86 % Body Fluid Polymorphonuclear Cells 9 % Body Fluid Total RBCs Counted 5 /cmm (Not Established) Body Fluid Other Cells (%) 5 % Body Fluid Glucose 82 mg/dL (.) Body Fluid Total Protein 4.6 g/dL (.) Body Fluid Lactate Dehydrogenase 237 IU/L (.) Urine Collection Type Unknown Urine Color Yellow Urine Clarity Turbid Urine pH 8.0 (<5.0-8.0) Urine Specific [place] 1.010 (1.000-1.030) Urine Protein >=300 mg/dL (NEG-TRACE) Urine Glucose (UA) Negative mg/dL (NEG) Urine Ketones (Stick) Negative mg/dL (NEG) Urine Blood Large (NEG) Urine Nitrite Positive (NEG) Urine Bilirubin Negative (NEG) Urine Urobilinogen Dipstick 0.2 mg/dL (0.2 mg/dL) Urine Leukocyte Esterase Large (NEG) Urine RBC 3-5 /HPF (0-2) Urine WBC Tntc /HPF (0-4) Urine Squamous Epithelial Cells None /LPF Urine Bacteria Many /HPF (0-FEW) Urine Mucus Mod /LPF White Blood Count 13.1 x10^3/uL (4.0-11.0) Red Blood Count 3.93 x10^6/uL (4.30-5.70) Hemoglobin 12.4 g/dL (13.0-17.5) Hematocrit 38.5 % (39.0-53.0) Mean Corpuscular Volume 98 fL (79-100) Mean Corpuscular Hemoglobin 32 pg (25-35) Mean Corpuscular Hemoglobin Concent 32 g/dL (31-37) Red Cell Distribution Width 18.0 % (11.5-14.5) Platelet Count 340 x10^3/uL (140-400) Neutrophils (%) (Auto) 79 % (31-73) Lymphocytes (%) (Auto) 5 % (24-48) Monocytes (%) (Auto) 12 % (0-9) Eosinophils (%) (Auto) 4 % (0-3) Basophils (%) (Auto) 1 % (0-3) Neutrophils # (Auto) 10.3 x10^3/uL (1.8-7.7) Lymphocytes # (Auto) 0.7 x10^3/uL (1.0-4.8) Monocytes # (Auto) 1.5 x10^3/uL (0.0-1.1) Eosinophils # (Auto) 0.5 x10^3/uL (0.0-0.7) Basophils # (Auto) 0.1 x10^3/uL (0.0-0.2) Sodium Level 135 mmol/L (136-145) Potassium Level 6.5 mmol/L (3.5-5.1) Chloride Level 97 mmol/L (98-107) Carbon Dioxide Level 25 mmol/L (21-32) Anion Gap 13 (6-14) Blood Urea Nitrogen 68 mg/dL (8-26) Creatinine 9.2 mg/dL (0.7-1.3) Estimated GFR (Cockcroft-Gault) 6.0 Glucose Level 86 mg/dL (70-99) Calcium Level 8.7 mg/dL (8.5-10.1) Phosphorus Level 11.2 mg/dL (2.6-4.7) Magnesium Level 2.1 mg/dL (1.8-2.4) Hepatitis B Surface Antigen Nonreactive (Nonreactive) Assessment and Plan Assessmemt and Plan Problems Medical Problems: (1) Cystitis Status: Acute (2) ESRD (end stage renal disease) Status: Acute (3) Small bowel obstruction Status: Acute Comment Review of Relevant I have reviewed the following items allyson (where applicable) has been applied. Medications: Current Medications Medications (Trade) Dose Ordered Sig/Kevin Route PRN Reason Start Time Stop Time Status Last Admin Dose Admin Piperacillin Sod/ Tazobactam Sod 3.375 gm/Sodium Chloride 50 ml @ 100 mls/hr 1X ONCE IV 01/18/21 16:45 01/18/21 17:14 DC 01/18/21 16:45 Morphine Sulfate (Morphine Sulfate) 5 mg 1X ONCE IV 01/18/21 18:00 01/18/21 18:01 DC 01/18/21 17:56 Benzocaine (Hurricaine One) 1 spray 1X ONCE MM 01/18/21 18:00 01/18/21 18:01 DC 01/18/21 18:00 Ondansetron HCl (Zofran) 4 mg PRN Q6HRS PRN IVP NAUSEA/VOMITING 01/18/21 18:30 01/19/21 05:16 Heparin Sodium (Porcine) (Heparin Sodium) 5,000 unit Q12HR SQ 01/18/21 21:00 01/19/21 10:30 Morphine Sulfate (Morphine Sulfate) 2 mg PRN Q2HR PRN IVP SEVERE PAIN 7-10 01/18/21 18:30 01/19/21 04:03 DC 01/18/21 19:34 Hydromorphone HCl (Dilaudid) 0.2 mg PRN Q2HR PRN IVP PAIN 01/18/21 21:15 01/19/21 15:08 Justifications for Admission Other Justification KASSIEO BRAEDEN ADDISON MD Jan 19, 2021 15:13
--- NOTE | 2021-01-19 15:35 | RAD ---
EXAM: 2 VIEW ABDOMEN WITH ONE VIEW CHEST. HISTORY: Small bowel obstruction. COMPARISON: 01/18/2021. FINDINGS: A frontal view of the chest and supine/upright views of the abdomen are obtained. There are interstitial opacities in the right perihilar region and left base. There is mild right vol ume loss. There is no pneumothorax or pleural effusion. The heart is mildly enlarged. There is a vibratory pile driver regino healed fracture of the right mid clavicle. A peritoneal dialysis catheter has its loop in the pelvis. Embolization coils project within the righ t upper quadrant. There is no pneumoperitoneum. Distended small bowel loops persist in the mid and upper abdomen. Contr ast has reached the right colon. There is relatively little gas distally. IMPRESSION: 1. Interstitial infiltrates with volume loss on the right greater than left. Correlate for scarring o r interstitial lung disease. 2. Contrast has reached the right colon, but small bowel distention persists. Correlate for partial s mall bowel obstruction. Electronically signed by: Kalie Lovell MD (01/19/2021 3:33 PM) [id number]
[2021-01-19 19:00] VITALS: BP 102/56
[2021-01-19 23:00] VITALS: BP 96/52
[2021-01-20] MEDS: HYDROcodone/APAP 5/325MG 1 TAB TABLET PO PRN ×2 (01:14→07:53)
[2021-01-20 03:00] VITALS: BP 104/47
[2021-01-20 07:00] VITALS: BP 108/52
--- NOTE | 2021-01-20 09:08 | PDOC ---
JASPREET VERDIN RECYCLING SORTER 01/20/21 0908: SURGICAL PROGRESS NOTE DATE: 01/20/21 TIME: 09:07 Subjective no nausea no flatus some pain again Vital Signs Vital Signs Date Time Temp Pulse Resp B/P (MAP) Pulse Ox O2 Delivery O2 Flow Rate FiO2 01/20/21 07:00 98.2 100 16 108/52 (70) 97 Nasal Cannula 3.5 98.2 I&O Intake and Output 01/20/21 07:00 Intake Total 300 ml Balance 300 ml Intake Oral 300 ml General: Alert, Oriented X3, Cooperative Abdomen: Soft, Other (distended ) Labs Laboratory Tests Test 01/18/21 14:45 01/18/21 15:15 01/18/21 16:10 01/19/21 04:00 White Blood Count 9.5 x10^3/uL (4.0-11.0) 13.1 x10^3/uL (4.0-11.0) Red Blood Count 3.58 x10^6/uL (4.30-5.70) 3.93 x10^6/uL (4.30-5.70) Hemoglobin 11.5 g/dL (13.0-17.5) 12.4 g/dL (13.0-17.5) Hematocrit 35.0 % (39.0-53.0) 38.5 % (39.0-53.0) Mean Corpuscular Volume 98 fL (79-100) 98 fL (79-100) Mean Corpuscular Hemoglobin 32 pg (25-35) 32 pg (25-35) Mean Corpuscular Hemoglobin Concent 33 g/dL (31-37) 32 g/dL (31-37) Red Cell Distribution Width 18.1 % (11.5-14.5) 18.0 % (11.5-14.5) Platelet Count 328 x10^3/uL (140-400) 340 x10^3/uL (140-400) Neutrophils (%) (Auto) 63 % (31-73) 79 % (31-73) Lymphocytes (%) (Auto) 13 % (24-48) 5 % (24-48) Monocytes (%) (Auto) 14 % (0-9) 12 % (0-9) Eosinophils (%) (Auto) 9 % (0-3) 4 % (0-3) Basophils (%) (Auto) 1 % (0-3) 1 % (0-3) Neutrophils # (Auto) 6.0 x10^3/uL (1.8-7.7) 10.3 x10^3/uL (1.8-7.7) Lymphocytes # (Auto) 1.2 x10^3/uL (1.0-4.8) 0.7 x10^3/uL (1.0-4.8) Monocytes # (Auto) 1.4 x10^3/uL (0.0-1.1) 1.5 x10^3/uL (0.0-1.1) Eosinophils # (Auto) 0.8 x10^3/uL (0.0-0.7) 0.5 x10^3/uL (0.0-0.7) Basophils # (Auto) 0.1 x10^3/uL (0.0-0.2) 0.1 x10^3/uL (0.0-0.2) Sodium Level 137 mmol/L (136-145) 135 mmol/L (136-145) Potassium Level 5.6 mmol/L (3.5-5.1) 6.5 mmol/L (3.5-5.1) Chloride Level 98 mmol/L (98-107) 97 mmol/L (98-107) Carbon Dioxide Level 30 mmol/L (21-32) 25 mmol/L (21-32) Anion Gap 9 (6-14) 13 (6-14) Blood Urea Nitrogen 63 mg/dL (8-26) 68 mg/dL (8-26) Creatinine 8.3 mg/dL (0.7-1.3) 9.2 mg/dL (0.7-1.3) Estimated GFR (Cockcroft-Gault) 6.7 6.0 BUN/Creatinine Ratio 8 (6-20) Glucose Level 99 mg/dL (70-99) 86 mg/dL (70-99) Calcium Level 8.7 mg/dL (8.5-10.1) 8.7 mg/dL (8.5-10.1) Total Bilirubin 0.6 mg/dL (0.2-1.0) Aspartate Amino Transf (AST/SGOT) 57 U/L (15-37) Alanine Aminotransferase (ALT/SGPT) 71 U/L (16-63) Alkaline Phosphatase 239 U/L (46-116) Total Protein 8.5 g/dL (6.4-8.2) Albumin 3.3 g/dL (3.4-5.0) Albumin/Globulin Ratio 0.6 (1.0-1.7) Hepatitis B Surface Antibody, Quant <3.1 mIU/mL (Immunity>9.9) Body Fluid Source Peritoneal Body Fluid Color Yellow Body Fluid Clarity Clear Body Fluid Nucleated Cells 120 /cmm (Not Established) Body Fluid Mononuclear WBCs (%) 86 % Body Fluid Polymorphonuclear Cells 9 % Body Fluid Total RBCs Counted 5 /cmm (Not Established) Body Fluid Other Cells (%) 5 % Body Fluid Glucose 82 mg/dL (.) Body Fluid Total Protein 4.6 g/dL (.) Body Fluid Lactate Dehydrogenase 237 IU/L (.) Urine Collection Type Unknown Urine Color Yellow Urine Clarity Turbid Urine pH 8.0 (<5.0-8.0) Urine Specific [place] 1.010 (1.000-1.030) Urine Protein >=300 mg/dL (NEG-TRACE) Urine Glucose (UA) Negative mg/dL (NEG) Urine Ketones (Stick) Negative mg/dL (NEG) Urine Blood Large (NEG) Urine Nitrite Positive (NEG) Urine Bilirubin Negative (NEG) Urine Urobilinogen Dipstick 0.2 mg/dL (0.2 mg/dL) Urine Leukocyte Esterase Large (NEG) Urine RBC 3-5 /HPF (0-2) Urine WBC Tntc /HPF (0-4) Urine Squamous Epithelial Cells None /LPF Urine Bacteria Many /HPF (0-FEW) Urine Mucus Mod /LPF Phosphorus Level 11.2 mg/dL (2.6-4.7) Magnesium Level 2.1 mg/dL (1.8-2.4) Hepatitis B Surface Antigen Nonreactive (Nonreactive) Problem List Problems Medical Problems: (1) Cystitis Status: Acute (2) ESRD (end stage renal disease) Status: Acute (3) Small bowel obstruction Status: Acute Assessment/Plan xr yesterday does show contrast in colon will repeat xr today trial clears ? UTI on ua--defer to IPC, neph Justicifation of Admission Dx: Justifications for Admission: Justification of Admission Dx: N/A ARELLANO,ORQUIDEA W MD 01/20/21 1457: SURGICAL PROGRESS NOTE Assessment/Plan Patient seen and examined by me currently resting comfortably in bed denies any abdominal pain no nausea. Denies any flatus. Abdominal films show contrast within the colon. Agree with Thompson assessment plan advance diet to clear liquids JASPREET VERDIN APRN Jan 20, 2021 09:08 ORQUIDEA ARELLANO MD Jan 20, 2021 14:57
[2021-01-20 11:00] VITALS: BP 97/54
[2021-01-20] MEDS: ONDANSETRON PF 4 MG/2 ML VIAL. IVP PRN (11:05)
[2021-01-20] MEDS: HYDROmorphone 2 MG/ML INJ. IVP PRN ×3 (11:05→21:23)
[2021-01-20] MEDS: HEPARIN for SUB-Q USE 5,000 UNIT/ML VIAL. SQ SCH ×2 (11:10→21:32)
--- NOTE | 2021-01-20 11:30 | RAD ---
EXAM: Abdomen series, 3 views. HISTORY: Small bowel obstruction. COMPARISON: 01/18/2021 FINDINGS: A frontal view of the chest and frontal upright and supine views of abdomen are obtained. T here is right middle and lower lobe pleural parenchymal scarring. There is a trace left pleural effus ion and basilar atelectasis. There is enlargement of the cardiac silhouette. There is no pneumothorax . There is a healed right clavicle fracture. There are distended air-filled loops of bowel throughout the abdomen. There are embolization coils within the right upper quadrant. There is a catheter loope d within the pelvis. There is contrast and stool within the proximal colon. IMPRESSION: 1. Distended loops of small bowel throughout the abdomen, similar compared to the prior CT and consis tent with obstruction. 2. Right middle and lower lobe pleural proximal scarring and small left pleural effusion with basilar atelectasis. Electronically signed by: Portia Hitchcock MD (01/20/2021 11:28 AM) [id number]
--- NOTE | 2021-01-20 12:26 | PDOC ---
[facility] PROGRESS NOTE Date of Service DOS: DATE: 01/20/21 TIME: 12:24 Chief Complaint Chief Complaint Acute ABD pain due to partial small bowel obstruction with transition point within the ventral peritoneal cavity. Moderate peritoneal fluid consistent with peritoneal dialysis mild Hyperkalemia Mild Transaminitis moderate protien malnutrition Anemia of ESRD History of Present Illness History of Present Illness add biotene, gentle IV fluid General surgery consult following for his small bowel obstruction feels better, sleeping in dialysis cont current Keep n.p.o. NG tube if not there is nausea vomiting IV pain control Nephrology consult for dialysis Vitals/I&O Vitals/I&O: Vital Signs Date Time Temp Pulse Resp B/P (MAP) Pulse Ox O2 Delivery O2 Flow Rate FiO2 01/20/21 07:00 98.2 100 16 108/52 (70) 97 Nasal Cannula 3.5 98.2 I & O 01/19/21 01/19/21 01/20/21 15:00 23:00 07:00 Intake Total 300 ml Balance 300 ml Physical Exam General: Alert, Oriented X3, Cooperative, No acute distress Heart: Regular rate Lungs: Clear Abdomen: Soft, Other (distended ) Extremities: No cyanosis, No edema Skin: No rashes, No breakdown Review of Systems Review of Systems: CT abd 1. Suspected partial small bowel obstruction with transition point within the ventral peritoneal cavity. 2. Moderate peritoneal fluid consistent with peritoneal dialysis. The peritoneal catheter loops within the pelvis. 3. Bilateral renal atrophy and suspected chronic mild hydronephrosis. 4. Colonic diverticulosis. Assessment and Plan Assessmemt and Plan Problems Medical Problems: (1) Cystitis Status: Acute (2) ESRD (end stage renal disease) Status: Acute (3) Small bowel obstruction Status: Acute Comment Review of Relevant I have reviewed the following items allyson (where applicable) has been applied. Justifications for Admission Other Justification KASSIEO BRAEDEN ADDISON MD Jan 20, 2021 12:26
[2021-01-20] MEDS ORDERED: SALIVA STIMULANT AGENT 44ML SPRAY BOTTLE. PO PRN (12:30)
--- NOTE | 2021-01-20 12:43 | PDOC ---
Renal-Progress Notes Subjective Notes Notes STILL FEELS ABOUT THE SAME, NOT PASSING FLATUS History of Present Illness Hx of present illness STABLE Vitals Vitals Vital Signs Date Time Temp Pulse Resp B/P (MAP) Pulse Ox O2 Delivery O2 Flow Rate FiO2 01/20/21 07:00 98.2 100 16 108/52 (70) 97 Nasal Cannula 3.5 98.2 Weight Weight [ ] I.O. Intake and Output Intake and Output 01/20/21 07:00 Intake Total 300 ml Balance 300 ml Intake Oral 300 ml Review of Systems Constitutional: yes: alert, oriented Ears/Nose/Throat: Yes: no symptom reported Eyes: Yes: no symptom reported Pulmonary: Yes no symptom reported Cardiovascular: Yes no symptom reported Gastrointestional: Yes: nausea Genitourinary: Yes: no symptom reported Musculoskeletal: Yes: no symptom reported Skin: Yes no symptom reported Psychiatric/Neurological: Yes: no symptom reported Physical Exam General Appearance: no apparent distress Skin: warm Respiratory: bilateral CTA Heart: S1S2 Abdomen: soft, no rebound, no guarding, distension Genitourinary: bladder flat Extremities: pulses present Neurology: alert Assessment Assessment IMP SBO HYPERKALEMIA ESRD-TTS HTN FAILED PD PLAN ANTIBIOTICS SURGERY FOLLOWING SUGGEST PD CATH REMOVAL AND FLUID ANALYSIS AT THAT TIME HD TOMORROW CLIFF WHEN NEEDED WILL FOLLOW MARIIA VIDAL MD Jan 20, 2021 12:43
[2021-01-20] MEDS: AMINO AC 3%/ELECTROLYTE/GLYCER 1,000 ML IV SCH (13:30)
--- NOTE | 2021-01-20 13:41 | NUR ---
SS following up with discharge planning. SS reviewed pt chart and discussed with pt RN. Pt is currently on room air. Pt has outpatient hemodialysis at [facility], ; fax [phone], Monday, , and Monday. Discharge plan is to home when medically ready. SS will continue to follow for discharge planning.
[2021-01-20 15:00] VITALS: BP 91/50
[2021-01-20 19:00] VITALS: BP 125/66
[2021-01-20 23:00] VITALS: BP 109/56
[2021-01-21] MEDS: AMINO AC 3%/ELECTROLYTE/GLYCER 1,000 ML IV SCH ×2 (02:02→22:05)
[2021-01-21 03:00] VITALS: BP 123/65
[2021-01-21 07:00] VITALS: BP 105/59
[2021-01-21] MEDS: HYDROcodone/APAP 5/325MG 1 TAB TABLET PO PRN (07:41)
[2021-01-21] MEDS ORDERED: DIALYSIS PATIENT. MC PRN (08:15)
[2021-01-21] MEDS ORDERED: IV NORMAL SALINE 1000ML BAG 1,000 ML IV PRN ×2 (08:15)
[2021-01-21 08:51] LABS: CALCIUM 8.2 mg/dL (8.5-10.1); CREATININE 7.5 mg/dL (0.7-1.3); GFR 7.6; POTASSIUM 5.3 mmol/L (3.5-5.1)
[2021-01-21] MEDS: HEPARIN for SUB-Q USE 5,000 UNIT/ML VIAL. SQ SCH ×2 (09:00→22:11)
--- NOTE | 2021-01-21 09:10 | PDOC ---
SURGICAL PROGRESS NOTE DATE: 01/21/21 TIME: 09:09 Subjective Patient in dialysis. States that he is tolerating his clear liquids no nausea vomiting has been passing flatus but no bowel movement Vital Signs Vital Signs Date Time Temp Pulse Resp B/P (MAP) Pulse Ox O2 Delivery O2 Flow Rate FiO2 01/21/21 07:41 Nasal Cannula 4.0 01/21/21 07:00 97.8 84 16 105/59 (74) 99 97.8 I&O Intake and Output 01/21/21 07:00 Intake Total 100 ml Balance 100 ml Intake Oral 100 ml PATIENT HAS A JARA: No General: Alert, Oriented X3, Cooperative, No acute distress Abdomen: Normal bowel sounds, Soft, No tenderness Labs Laboratory Tests Test 01/21/21 08:00 Sodium Level 135 mmol/L (136-145) Potassium Level 5.3 mmol/L (3.5-5.1) Chloride Level 97 mmol/L (98-107) Carbon Dioxide Level 26 mmol/L (21-32) Anion Gap 12 (6-14) Blood Urea Nitrogen 45 mg/dL (8-26) Creatinine 7.5 mg/dL (0.7-1.3) Estimated GFR (Cockcroft-Gault) 7.6 Glucose Level 92 mg/dL (70-99) Calcium Level 8.2 mg/dL (8.5-10.1) Laboratory Tests Test 01/21/21 08:00 Sodium Level 135 mmol/L (136-145) Potassium Level 5.3 mmol/L (3.5-5.1) Chloride Level 97 mmol/L (98-107) Carbon Dioxide Level 26 mmol/L (21-32) Anion Gap 12 (6-14) Blood Urea Nitrogen 45 mg/dL (8-26) Creatinine 7.5 mg/dL (0.7-1.3) Estimated GFR (Cockcroft-Gault) 7.6 Glucose Level 92 mg/dL (70-99) Calcium Level 8.2 mg/dL (8.5-10.1) Problem List Problems Medical Problems: (1) Cystitis Status: Acute (2) ESRD (end stage renal disease) Status: Acute (3) Small bowel obstruction Status: Acute Assessment/Plan Likely ileus appears to be resolving maintain on clear liquids until passing stool Justicifation of Admission Dx: Justifications for Admission: Justification of Admission Dx: N/A ORQUIDEA ARELLANO MD Jan 21, 2021 09:10
--- NOTE | 2021-01-21 10:51 | PDOC ---
[facility] PROGRESS NOTE Date of Service DOS: DATE: 01/21/21 TIME: 10:48 Chief Complaint Chief Complaint Acute ABD pain due to partial small bowel obstruction with transition point within the ventral peritoneal cavity. Moderate peritoneal fluid consistent with peritoneal dialysis mild Hyperkalemia Mild Transaminitis moderate protien malnutrition Anemia of ESRD History of Present Illness History of Present Illness 01/21/2021 No major events overnight. Patient seen and examined during hemodialysis. Will attempt clears today and see how he does. Patient's chart, labs, images were reviewed and discussed with RN samantha freitas gentle IV fluid General surgery consult following for his small bowel obstruction feels better, sleeping in dialysis cont current Continue with clears NG tube if not there is nausea vomiting IV pain control Nephrology consult for dialysis Vitals/I&O Vitals/I&O: Vital Signs Date Time Temp Pulse Resp B/P (MAP) Pulse Ox O2 Delivery O2 Flow Rate FiO2 01/21/21 07:41 Nasal Cannula 4.0 01/21/21 07:00 97.8 84 16 105/59 (74) 99 97.8 I & O 01/20/21 01/20/21 01/21/21 15:00 23:00 07:00 Intake Total 100 ml 0 ml Balance 100 ml 0 ml Physical Exam General: Alert, Oriented X3, Cooperative, No acute distress Heart: Regular rate Lungs: Clear Abdomen: Normal bowel sounds, Soft, No tenderness Extremities: No cyanosis, No edema Skin: No rashes, No breakdown Labs Labs: Laboratory Tests Test 01/21/21 08:00 Sodium Level 135 mmol/L (136-145) Potassium Level 5.3 mmol/L (3.5-5.1) Chloride Level 97 mmol/L (98-107) Carbon Dioxide Level 26 mmol/L (21-32) Anion Gap 12 (6-14) Blood Urea Nitrogen 45 mg/dL (8-26) Creatinine 7.5 mg/dL (0.7-1.3) Estimated GFR (Cockcroft-Gault) 7.6 Glucose Level 92 mg/dL (70-99) Calcium Level 8.2 mg/dL (8.5-10.1) Assessment and Plan Assessmemt and Plan Problems Medical Problems: (1) Cystitis Status: Acute (2) ESRD (end stage renal disease) Status: Acute (3) Small bowel obstruction Status: Acute Comment Review of Relevant I have reviewed the following items allyson (where applicable) has been applied. Medications: Current Medications Medications (Trade) Dose Ordered Sig/Kevin Route PRN Reason Start Time Stop Time Status Last Admin Dose Admin Saliva Substitute (Biotene Moisturizing Mouth) 2 spray PRN Q15MIN PRN PO DRY MOUTH 01/20/21 12:30 01/20/21 13:29 Amino Acids/ Glycerin/ Electrolytes 1,000 ml @ 80 mls/hr [id number] IV 01/20/21 12:30 01/21/21 02:02 Justifications for Admission Other Justification SBO KAILA CURRY MD Jan 21, 2021 10:51
--- NOTE | 2021-01-21 10:57 | NUR ---
SS following up with discharge planning. SS reviewed pt chart and discussed with pt RN. Pt is currently requiring oxygen at four liters nasal canula. Pt has home oxygen at two liters PRN. Pt has outpatient hemodialysis at [facility], ; fax [phone], Monday, , and Monday. Pt on PPN and clear liquid diet. Discharge plan is to home when medically ready. SS will continue to follow for discharge planning.
--- NOTE | 2021-01-21 11:41 | PDOC ---
Renal-Progress Notes Subjective Notes Notes FEELING BETTER History of Present Illness Hx of present illness IMPROVED WITH INCREASING FLATUS AND EATING SOME Vitals Vitals Vital Signs Date Time Temp Pulse Resp B/P (MAP) Pulse Ox O2 Delivery O2 Flow Rate FiO2 01/21/21 07:41 Nasal Cannula 4.0 01/21/21 07:00 97.8 84 16 105/59 (74) 99 97.8 Weight Weight [ ] I.O. Intake and Output Intake and Output 01/21/21 07:00 Intake Total 100 ml Balance 100 ml Intake Oral 100 ml Labs Labs Laboratory Tests Test 01/21/21 08:00 Sodium Level 135 mmol/L (136-145) Potassium Level 5.3 mmol/L (3.5-5.1) Chloride Level 97 mmol/L (98-107) Carbon Dioxide Level 26 mmol/L (21-32) Anion Gap 12 (6-14) Blood Urea Nitrogen 45 mg/dL (8-26) Creatinine 7.5 mg/dL (0.7-1.3) Estimated GFR (Cockcroft-Gault) 7.6 Glucose Level 92 mg/dL (70-99) Calcium Level 8.2 mg/dL (8.5-10.1) Review of Systems Constitutional: yes: alert, oriented Ears/Nose/Throat: Yes: no symptom reported Eyes: Yes: no symptom reported Pulmonary: Yes no symptom reported Cardiovascular: Yes no symptom reported Gastrointestional: Yes: nausea Genitourinary: Yes: no symptom reported Musculoskeletal: Yes: no symptom reported Skin: Yes no symptom reported Psychiatric/Neurological: Yes: no symptom reported Physical Exam General Appearance: no apparent distress Skin: warm Respiratory: bilateral CTA Heart: S1S2 Abdomen: soft, no rebound, no guarding, distension Genitourinary: bladder flat Extremities: pulses present Neurology: alert Assessment Assessment IMP SBO HYPERKALEMIA ESRD-TTS HTN FAILED PD PLAN ANTIBIOTICS SURGERY FOLLOWING HD TODAY UF TO TW CLIFF WHEN NEEDED WILL FOLLOW MARIIA VIDAL MD Jan 21, 2021 11:40
[2021-01-21] MEDS: HYDROmorphone 2 MG/ML INJ. IVP PRN ×3 (12:20→22:23)
[2021-01-21 15:00] VITALS: BP 110/50
[2021-01-21 20:30] VITALS: BP 118/55
[2021-01-22] MEDS: AMINO AC 3%/ELECTROLYTE/GLYCER 1,000 ML IV SCH ×2 (02:00→14:20)
--- NOTE | 2021-01-22 06:58 | NUR ---
Attempt to obtain bed scale weight, inadvertently zeroed out the bed, tomas Lambert rn informed.
[2021-01-22 07:00] VITALS: BP 137/67
[2021-01-22] MEDS: HYDROmorphone 2 MG/ML INJ. IVP PRN ×5 (07:37→21:11)
[2021-01-22] MEDS: HEPARIN for SUB-Q USE 5,000 UNIT/ML VIAL. SQ SCH ×2 (07:42→21:20)
--- NOTE | 2021-01-22 09:16 | PDOC ---
JASPREET VERDIN [employer] MARKETER 01/22/21 0916: SURGICAL PROGRESS NOTE DATE: 01/22/21 TIME: 09:15 Subjective no n/v, + flatus, no stool yet mild abdominal pain Vital Signs Vital Signs Date Time Temp Pulse Resp B/P (MAP) Pulse Ox O2 Delivery O2 Flow Rate FiO2 01/22/21 07:37 Room Air 01/22/21 07:00 97.6 77 137/67 (90) 93 97.6 01/22/21 03:20 20 01/21/21 20:30 2.0 I&O Intake and Output 01/22/21 07:00 Intake Total 1050 ml Output Total 125 ml Balance 925 ml Intake Oral 50 ml IV Total 1000 ml Output Urine Total 125 ml General: Alert, Oriented X3, Cooperative Abdomen: Soft, Other (NTTP) Labs Laboratory Tests Test 01/21/21 08:00 Sodium Level 135 mmol/L (136-145) Potassium Level 5.3 mmol/L (3.5-5.1) Chloride Level 97 mmol/L (98-107) Carbon Dioxide Level 26 mmol/L (21-32) Anion Gap 12 (6-14) Blood Urea Nitrogen 45 mg/dL (8-26) Creatinine 7.5 mg/dL (0.7-1.3) Estimated GFR (Cockcroft-Gault) 7.6 Glucose Level 92 mg/dL (70-99) Calcium Level 8.2 mg/dL (8.5-10.1) Problem List Problems Medical Problems: (1) Cystitis Status: Acute (2) ESRD (end stage renal disease) Status: Acute (3) Small bowel obstruction Status: Acute Assessment/Plan liquids until some bowel function Justicifation of Admission Dx: Justifications for Admission: Justification of Admission Dx: N/A ORQUIDEA ARELLANO MD 01/22/21 1005: SURGICAL PROGRESS NOTE Assessment/Plan Patient comfortable abdomen benign. Patient passing flatus no bowel movement as yet tolerating clear liquids maintain clear liquids until stool passed. Agree with Jay assessment plan JASPREET VERDIN APRN Jan 22, 2021 09:16 ORQUIDEA ARELLANO MD Jan 22, 2021 10:05
--- NOTE | 2021-01-22 09:50 | NUR ---
SS following up with discharge planning. SS reviewed pt chart and discussed with pt RN. Pt is currently on room air. Pt has home oxygen at two liters PRN. Pt has outpatient hemodialysis at [facility], ; fax [phone], Monday, , and Monday. Pt on PPN and clear liquid diet. Discharge plan is to home when medically ready. SS will continue to follow for discharge planning. Addendum: 01/22/21 at 0953 by ARIELLE MARTINEZ SS [facility] contact number is [phone].
[2021-01-22 10:55] VITALS: BP 117/67
--- NOTE | 2021-01-22 11:40 | PDOC ---
Renal-Progress Notes Subjective Notes Notes LESS NAUSEA AND NO VOMITING History of Present Illness Hx of present illness STABLE Vitals Vitals Vital Signs Date Time Temp Pulse Resp B/P (MAP) Pulse Ox O2 Delivery O2 Flow Rate FiO2 01/22/21 10:55 98.1 88 18 117/67 (84) 95 Room Air 98.1 01/21/21 20:30 2.0 Weight Weight [ ] I.O. Intake and Output Intake and Output 01/22/21 07:00 Intake Total 1050 ml Output Total 125 ml Balance 925 ml Intake Oral 50 ml IV Total 1000 ml Output Urine Total 125 ml Review of Systems Constitutional: yes: alert, oriented Ears/Nose/Throat: Yes: no symptom reported Eyes: Yes: no symptom reported Pulmonary: Yes no symptom reported Cardiovascular: Yes no symptom reported Gastrointestional: Yes: nausea Genitourinary: Yes: no symptom reported Musculoskeletal: Yes: no symptom reported Skin: Yes no symptom reported Psychiatric/Neurological: Yes: no symptom reported Physical Exam General Appearance: no apparent distress Skin: warm Respiratory: bilateral CTA Heart: S1S2 Abdomen: soft, no rebound, no guarding, distension Genitourinary: bladder flat Extremities: pulses present Neurology: alert Assessment Assessment IMP SBO VS ILEUS HYPERKALEMIA ESRD-TTS HTN FAILED PD PLAN ANTIBIOTICS SURGERY FOLLOWING ON PPN HD TTS CLIFF WHEN NEEDED WILL FOLLOW MARIIA VIDAL MD Jan 22, 2021 11:40
--- NOTE | 2021-01-22 12:25 | PDOC ---
[facility] PROGRESS NOTE Date of Service DOS: DATE: 01/22/21 TIME: 12:24 Chief Complaint Chief Complaint Acute ABD pain due to partial small bowel obstruction with transition point within the ventral peritoneal cavity. Moderate peritoneal fluid consistent with peritoneal dialysis mild Hyperkalemia Mild Transaminitis moderate protien malnutrition Anemia of ESRD History of Present Illness History of Present Illness 01/22/2021 No major events overnight. Patient having some flatus but no bowel movements. Tolerating clears with some belly pain but pain is tolerable. Patient's chart, labs, images were reviewed and discussed with RN 01/21/2021 No major events overnight. Patient seen and examined during hemodialysis. Will attempt clears today and see how he does. Patient's chart, labs, images were reviewed and discussed with RN add biotene, gentle IV fluid General surgery consult following for his small bowel obstruction feels better, sleeping in dialysis cont current Continue with clears NG tube if not there is nausea vomiting IV pain control Nephrology consult for dialysis Vitals/I&O Vitals/I&O: Vital Signs Date Time Temp Pulse Resp B/P (MAP) Pulse Ox O2 Delivery O2 Flow Rate FiO2 01/22/21 10:55 98.1 88 18 117/67 (84) 95 Room Air 98.1 01/21/21 20:30 2.0 I & O 01/21/21 01/21/21 01/22/21 15:00 23:00 07:00 Intake Total 1050 ml 0 ml Output Total 125 ml Balance 1050 ml -125 ml Physical Exam General: Alert, Oriented X3, Cooperative Heart: Regular rate Lungs: Clear Abdomen: Soft, Other (NTTP) Extremities: No cyanosis, No edema Skin: No rashes, No breakdown Assessment and Plan Assessmemt and Plan Problems Medical Problems: (1) Cystitis Status: Acute (2) ESRD (end stage renal disease) Status: Acute (3) Small bowel obstruction Status: Acute Comment Review of Relevant I have reviewed the following items allsyon (where applicable) has been applied. Justifications for Admission Other Justification SBO KAILA CURRY MD Jan 22, 2021 12:25
[2021-01-22 15:00] VITALS: BP 157/92
[2021-01-22 19:00] VITALS: BP 134/71
[2021-01-22 23:02] VITALS: BP 123/70
[2021-01-23] MEDS: HYDROmorphone 2 MG/ML INJ. IVP PRN ×3 (00:30→20:10)
[2021-01-23] MEDS: AMINO AC 3%/ELECTROLYTE/GLYCER 1,000 ML IV SCH ×2 (01:02→20:50)
[2021-01-23 04:02] LABS: CALCIUM 8.7 mg/dL (8.5-10.1); CREATININE 7.1 mg/dL (0.7-1.3); GFR 8.1; POTASSIUM 4.5 mmol/L (3.5-5.1)
[2021-01-23 04:24] VITALS: BP 136/64
[2021-01-23 07:00] VITALS: BP 125/65
[2021-01-23] MEDS ORDERED: ACETAMINOPHEN 500 MG TABLET PO PRN (07:30)
[2021-01-23] MEDS ORDERED: diphenhydrAMINE 50 MG/ML VIAL IV PRN ×2 (07:30)
[2021-01-23] MEDS ORDERED: ALBUMIN HUMAN 25% 200 ML IV PRN (07:30)
[2021-01-23] MEDS ORDERED: IV NORMAL SALINE 1000ML BAG 1,000 ML IV PRN ×2 (07:30)
[2021-01-23] MEDS ORDERED: DIALYSIS PATIENT. MC PRN ×2 (07:30)
[2021-01-23] MEDS: HYDROcodone/APAP 5/325MG 1 TAB TABLET PO PRN ×3 (07:39→23:07)
[2021-01-23] MEDS: HEPARIN for SUB-Q USE 5,000 UNIT/ML VIAL. SQ SCH ×2 (07:43→20:21)
--- NOTE | 2021-01-23 09:46 | PDOC ---
SURGICAL PROGRESS NOTE DATE: 01/23/21 TIME: 09:45 Subjective Patient in dialysis doing well states he is still passing flatus but no bowel movement tolerating clear liquid diets no nausea vomiting Vital Signs Vital Signs Date Time Temp Pulse Resp B/P (MAP) Pulse Ox O2 Delivery O2 Flow Rate FiO2 01/23/21 07:39 Room Air 01/23/21 07:00 98.5 90 18 125/65 (85) 95 98.5 I&O Intake and Output 01/23/21 07:00 Intake Total 880 ml Output Total 400 ml Balance 480 ml IV Total 880 ml Output Urine Total 400 ml # Voids 1 PATIENT HAS A JARA: No General: Alert, Oriented X3, Cooperative, No acute distress Abdomen: Normal bowel sounds, Soft, No tenderness Labs Laboratory Tests Test 01/23/21 03:30 Sodium Level 130 mmol/L (136-145) Potassium Level 4.5 mmol/L (3.5-5.1) Chloride Level 96 mmol/L (98-107) Carbon Dioxide Level 26 mmol/L (21-32) Anion Gap 8 (6-14) Blood Urea Nitrogen 41 mg/dL (8-26) Creatinine 7.1 mg/dL (0.7-1.3) Estimated GFR (Cockcroft-Gault) 8.1 Glucose Level 99 mg/dL (70-99) Calcium Level 8.7 mg/dL (8.5-10.1) Laboratory Tests Test 01/23/21 03:30 Sodium Level 130 mmol/L (136-145) Potassium Level 4.5 mmol/L (3.5-5.1) Chloride Level 96 mmol/L (98-107) Carbon Dioxide Level 26 mmol/L (21-32) Anion Gap 8 (6-14) Blood Urea Nitrogen 41 mg/dL (8-26) Creatinine 7.1 mg/dL (0.7-1.3) Estimated GFR (Cockcroft-Gault) 8.1 Glucose Level 99 mg/dL (70-99) Calcium Level 8.7 mg/dL (8.5-10.1) Problem List Problems Medical Problems: (1) Cystitis Status: Acute (2) ESRD (end stage renal disease) Status: Acute (3) Small bowel obstruction Status: Acute Assessment/Plan Ileus versus small bowel obstruction tolerating her liquid diet Start MiraLAX We will follow Justicifation of Admission Dx: Justifications for Admission: Justification of Admission Dx: N/A ORQUIDEA ARELLANO MD Jan 23, 2021 09:46
--- NOTE | 2021-01-23 11:47 | NUR ---
Received report from Kendal WILSON in dialysis 3L off H 93 BP124/69 Addendum: 01/23/21 at 1149 by ABELARDO GAMA RN RN 1L off, not 3L.
--- NOTE | 2021-01-23 11:54 | PDOC ---
GENERAL General: Patient examined chart reviewed today's hospital day 6 for this patient with end-stage renal disease on hemodialysis. Up until several weeks ago he was on peritoneal dialysis. He has never had abdominal surgery. He was admitted with partial small bowel obstruction and is very slow to progress. He has not been up moving around much tells me he just does not feel like walking. He denies any vomiting. He had just gotten back from hemodialysis on my assessment this morning. Abdomen is still fairly distended. We may need to proceed with [facility] er CT abdomen and pelvis depending on his progress. Will reassess CBC in the morning white count was rising on his last level several days ago. Appreciate subspecialty support. We will continue current management otherwise. Time spent today is 30 minutes with greater than 50% in counseling and coordination of care most of which in discussion with patient. Problems: (1) ESRD (end stage renal disease) on dialysis (2) Small bowel obstruction (3) Pleural effusion VITAL SIGNS Vital Signs/I&O: Vital Signs Date Time Temp Pulse Resp B/P (MAP) Pulse Ox O2 Delivery O2 Flow Rate FiO2 01/23/21 07:39 Room Air 01/23/21 07:00 98.5 90 18 125/65 (85) 95 98.5 I & O 01/22/21 01/22/21 01/23/21 15:00 23:00 07:00 Intake Total 880 ml Output Total 400 ml 0 ml Balance -400 ml 880 ml In general patient is pleasant alert and oriented x3 no acute distress HEENT exam is unremarkable for acute abnormality Chest is clear to auscultation Heart S1-S2 normal regular rate and rhythm 3 x 6 systolic murmur noted loudest at the left sternal border Abdomen is distended bowel sounds are absent nontender no masses organomegaly noted Extremity exam is unremarkable for acute abnormality ALLERGIES Allergies: Allergies Coded Allergies Type Severity Reaction Last Updated Verified No Known Drug Allergies 02/03/20 No MEDS Medications: Current Medications Medications (Trade) Dose Ordered Sig/Kevin Start Time Stop Time Status Last Admin Dose Admin Acetaminophen (Tylenol) 500 mg 1X PRN PRN 01/23/21 07:30 01/24/21 07:29 Acetaminophen/ Hydrocodone Bitart (Lortab 5/325) 2 tab PRN Q4HRS PRN 01/18/21 18:30 01/23/21 07:39 Albumin Human 200 ml @ 200 mls/hr 1X PRN PRN 01/23/21 07:30 01/23/21 13:29 Amino Acids/ Glycerin/ Electrolytes 1,000 ml @ 80 mls/hr [id number] 01/20/21 12:30 01/23/21 01:02 Benzocaine (Hurricaine One) 1 spray 1X ONCE 01/18/21 18:00 01/18/21 18:01 DC 01/18/21 18:00 Dextrose (Dextrose 50%-Water Syringe) 12.5 gm PRN Q15MIN PRN 01/18/21 18:30 Diphenhydramine HCl (Benadryl) 25 mg 1X PRN PRN 01/23/21 07:30 01/24/21 07:29 Docusate Sodium (Colace) 100 mg PRN DAILY PRN 01/18/21 18:30 Furosemide (Lasix) 40 mg PRN 1X PRN 01/19/21 06:30 01/21/21 12:05 DC Heparin Sodium (Porcine) (Heparin Sodium) 5,000 unit Q12HR 01/18/21 21:00 01/23/21 07:43 Hydromorphone HCl (Dilaudid) 0.2 mg PRN Q2HR PRN 01/18/21 21:15 01/23/21 00:30 Info (CONTRAST GIVEN -- Rx MONITORING) 1 each PRN DAILY PRN 01/18/21 14:45 01/20/21 14:44 DC Info (PHARMACY MONITORING -- do not chart) 1 each PRN DAILY PRN 01/23/21 07:30 UNV Iohexol (Omnipaque 240 Mg/ml) 30 ml 1X ONCE 01/18/21 14:45 01/18/21 14:46 DC 01/18/21 14:48 Iohexol (Omnipaque 300 Mg/ml) 75 ml 1X ONCE 01/18/21 14:45 01/18/21 14:46 DC 01/18/21 14:45 Morphine Sulfate (Morphine Sulfate) 2 mg PRN Q2HR PRN 01/18/21 18:30 01/19/21 04:03 DC 01/18/21 19:34 Ondansetron HCl (Zofran) 4 mg PRN Q6HRS PRN 01/18/21 18:30 01/20/21 11:05 Piperacillin Sod/ Tazobactam Sod 3.375 gm/Sodium Chloride 50 ml @ 100 mls/hr 1X ONCE 01/18/21 16:45 01/18/21 17:14 DC 01/18/21 16:45 Polyethylene Glycol (miraLAX PACKET) 17 gm DAILY 01/24/21 09:00 Saliva Substitute (Biotene Moisturizing Mouth) 2 spray PRN Q15MIN PRN 01/20/21 12:30 01/20/21 13:29 Sennosides (Senna) 17.2 mg PRN BID PRN 01/18/21 18:30 Sodium Chloride 1,000 ml @ 400 mls/hr Q2H30M PRN 01/23/21 07:30 01/23/21 19:29 LAB Lab: Laboratory Tests Test 01/23/21 03:30 Sodium Level 130 mmol/L (136-145) L Potassium Level 4.5 mmol/L (3.5-5.1) Chloride Level 96 mmol/L (98-107) L Carbon Dioxide Level 26 mmol/L (21-32) Anion Gap 8 (6-14) Blood Urea Nitrogen 41 mg/dL (8-26) H Creatinine 7.1 mg/dL (0.7-1.3) H Estimated GFR (Cockcroft-Gault) 8.1 Glucose Level 99 mg/dL (70-99) Calcium Level 8.7 mg/dL (8.5-10.1) Laboratory Tests 01/23/21 03:30 ASSESSMENT & PLAN A&P Plan as noted above This note was created using [employer] and may have omissions and/or errors due to the nature of real-time voice electrotype caster. Justifications for Admission Other Justification SBO Nutrition Consultation Dietary Evaluation: Recommendations by RD: Dietary education by RD, Increase Calorie Intake, Protein supplementation, PPN/TPN Comments: added ensure clear supplement for extra 240 kcal, 8 g protein/serving Expected Outcomes/Goals: diet advancement once SBO resolves- goal ongoing Malnutrition Findings: Weight Status: Appropriate Fluid Accumulation (Non-Severe: Mild depletion LATOYA GRIER MD Jan 23, 2021 11:54
--- NOTE | 2021-01-23 14:32 | PDOC ---
DATE OF SERVICE: DOS: DATE: 01/23/21 TIME: 14:30 SUBJECTIVE ROS Follow-up for ESRD on hemodialysis Monday Patient had hemodialysis earlier today and tolerated well. Denies any new complaints. Remains on clear liquid diet and PPN CVS: no Orthopnea, no CP RESP: no SOB, no HOLLAND GI: no Nausea, no Vomiting : no Dysuria, no Urgency OBJECTIVE Vital Signs Vital Signs Date Time Temp Pulse Resp B/P (MAP) Pulse Ox O2 Delivery O2 Flow Rate FiO2 01/23/21 12:45 Room Air 01/23/21 12:08 95 01/23/21 07:00 98.5 90 18 125/65 (85) 98.5 I & 0 Intake and Output 01/23/21 07:00 Intake Total 880 ml Output Total 400 ml Balance 480 ml IV Total 880 ml Output Urine Total 400 ml # Voids 1 PHYSICAL EXAM Physical Exam GEN: Awake, Oriented x 3, In no distress EYES: Vision Unchanged, Conjunctiva Normal EN: No EN Drainage, Mucous Membranes moist NECK: no JVD, no JVP, Supple, no Thyromegaly CVS: S1S2, soft Murmur, No Gallop, No Rub,no Edema RESP: no Rales, no Rhonchi,no Acc. Muscle Use GI: BS hypoactive, NO Bruit, Non Tender, Non Distended : no CVA tenderness, no Suprapubic Tenderness DIAGNOSIS/ASSESSMENT Assessment & Plan ESRD: Hemodialysis as accomplished earlier today Previous hyperkalemia: Now resolved Lowish sodium: Patient remains on clear liquid diet and PPN. Watch trend for now. May need to transition to TPN if unable to keep corrected with dialysis alone ANEMIA; no Aranap was ordered for hemoglobin greater than 11. transfuse with next HD as needed HTN: Current BP meds as reviewed. See orders for changes. BONE & MINERAL: Follow phosphorus levels and alter binder regimen once oral intake improves/diet is advanced Discussed Plan of Care with patient at bedside COMMENT/RELEVANT DATA Meds Current Medications Medications (Trade) Dose Ordered Sig/Kevin Start Time Stop Time Status Last Admin Dose Admin Acetaminophen (Tylenol) 500 mg 1X PRN PRN 01/23/21 07:30 01/24/21 07:29 Acetaminophen/ Hydrocodone Bitart (Lortab 5/325) 2 tab PRN Q4HRS PRN 01/18/21 18:30 01/23/21 07:39 2 TAB Albumin Human 200 ml @ 200 mls/hr 1X PRN PRN 01/23/21 07:30 01/23/21 13:29 DC Amino Acids/ Glycerin/ Electrolytes 1,000 ml @ 80 mls/hr [id number] 01/20/21 12:30 01/23/21 01:02 80 MLS/HR Benzocaine (Hurricaine One) 1 spray 1X ONCE 01/18/21 18:00 01/18/21 18:01 DC 01/18/21 18:00 1 SPRAY Dextrose (Dextrose 50%-Water Syringe) 12.5 gm PRN Q15MIN PRN 01/18/21 18:30 Diphenhydramine HCl (Benadryl) 25 mg 1X PRN PRN 01/23/21 07:30 01/24/21 07:29 Docusate Sodium (Colace) 100 mg PRN DAILY PRN 01/18/21 18:30 Furosemide (Lasix) 40 mg PRN 1X PRN 01/19/21 06:30 01/21/21 12:05 DC Heparin Sodium (Porcine) (Heparin Sodium) 5,000 unit Q12HR 01/18/21 21:00 01/23/21 07:43 5,000 UNIT Hydromorphone HCl (Dilaudid) 0.2 mg PRN Q2HR PRN 01/18/21 21:15 01/23/21 12:08 0.2 MG Info (CONTRAST GIVEN -- Rx MONITORING) 1 each PRN DAILY PRN 01/18/21 14:45 01/20/21 14:44 DC Info (PHARMACY MONITORING -- do not chart) 1 each PRN DAILY PRN 01/23/21 07:30 UNV Iohexol (Omnipaque 240 Mg/ml) 30 ml 1X ONCE 01/18/21 14:45 01/18/21 14:46 DC 01/18/21 14:48 30 ML Iohexol (Omnipaque 300 Mg/ml) 75 ml 1X ONCE 01/18/21 14:45 01/18/21 14:46 DC 01/18/21 14:45 60 ML Morphine Sulfate (Morphine Sulfate) 2 mg PRN Q2HR PRN 01/18/21 18:30 01/19/21 04:03 DC 01/18/21 19:34 2 MG Ondansetron HCl (Zofran) 4 mg PRN Q6HRS PRN 01/18/21 18:30 01/20/21 11:05 4 MG Piperacillin Sod/ Tazobactam Sod 3.375 gm/Sodium Chloride 50 ml @ 100 mls/hr 1X ONCE 01/18/21 16:45 01/18/21 17:14 DC 01/18/21 16:45 100 MLS/HR Polyethylene Glycol (miraLAX PACKET) 17 gm DAILY 01/24/21 09:00 Saliva Substitute (Biotene Moisturizing Mouth) 2 spray PRN Q15MIN PRN 01/20/21 12:30 01/20/21 13:29 2 SPRAY Sennosides (Senna) 17.2 mg PRN BID PRN 01/18/21 18:30 Sodium Chloride 1,000 ml @ 400 mls/hr Q2H30M PRN 01/23/21 07:30 01/23/21 19:29 Lab Laboratory Tests Test 01/23/21 03:30 Sodium Level 130 mmol/L (136-145) Potassium Level 4.5 mmol/L (3.5-5.1) Chloride Level 96 mmol/L (98-107) Carbon Dioxide Level 26 mmol/L (21-32) Anion Gap 8 (6-14) Blood Urea Nitrogen 41 mg/dL (8-26) Creatinine 7.1 mg/dL (0.7-1.3) Estimated GFR (Cockcroft-Gault) 8.1 Glucose Level 99 mg/dL (70-99) Calcium Level 8.7 mg/dL (8.5-10.1) Results All relevant outside records, renal labs, imaging studies, telemetry/EKG's were reviewed. Justicifation of Admission Dx: Justifications for Admission: Justification of Admission Dx: N/A MITCH VALERIO MD Jan 23, 2021 14:32
[2021-01-23 15:00] VITALS: BP 121/70
--- NOTE | 2021-01-23 15:35 | NUR ---
Patient had bloody nose. Held pressure and educated patient on sitting upright and helping it to clot.
[2021-01-23 19:00] VITALS: BP 154/62
[2021-01-23 23:06] VITALS: BP 132/61
[2021-01-24] VITALS (7 sets, daily range): BP systolic 125–158; BP diastolic 54–79
[2021-01-24] MEDS: AMINO AC 3%/ELECTROLYTE/GLYCER 1,000 ML IV SCH ×2 (04:00→17:16)
[2021-01-24 07:15] LABS: BASO # 0.1 x10^3/uL (0.0-0.2); BASO % 1 % (0-3); EOS # 0.8 x10^3/uL (0.0-0.7); EOS % 11 % (0-3); HEMATOCRIT 32.5 % (39.0-53.0); HEMOGLOBIN 10.9 g/dL (13.0-17.5); LYMPH # 1.3 x10^3/uL (1.0-4.8); LYMPH % 18 % (24-48); MEAN CORPUSCULAR HEMOGLOBIN 33 pg (25-35); MEAN CORPUSCULAR HGB CONC 34 g/dL (31-37); MEAN CORPUSCULAR VOLUME 97 fL (79-100); MONO # 1.3 x10^3/uL (0.0-1.1); MONO % 18 % (0-9); NEUT # 3.7 x10^3/uL (1.8-7.7); NEUT % 52 % (31-73); PLATELET COUNT 264 x10^3/uL (140-400); RED BLOOD COUNT 3.34 x10^6/uL (4.30-5.70); RED CELL DISTRIBUTION WIDTH 17.2 % (11.5-14.5); WHITE BLOOD COUNT 7.2 x10^3/uL (4.0-11.0)
[2021-01-24 07:34] LABS: ALBUMIN 2.6 g/dL (3.4-5.0); ALBUMIN/GLOBULIN RATIO 0.6 (1.0-1.7); CALCIUM 8.9 mg/dL (8.5-10.1); CREATININE 5.5 mg/dL (0.7-1.3); GFR 10.8; POTASSIUM 4.4 mmol/L (3.5-5.1); TOTAL BILIRUBIN 0.4 mg/dL (0.2-1.0); TOTAL PROTEIN 7.1 g/dL (6.4-8.2)
[2021-01-24] MEDS: POLYETHYLENE GLYCOL 3350 17 GM PACKET. PO SCH (08:33)
[2021-01-24] MEDS: HYDROcodone/APAP 5/325MG 1 TAB TABLET PO PRN ×3 (08:33→20:31)
[2021-01-24] MEDS: HEPARIN for SUB-Q USE 5,000 UNIT/ML VIAL. SQ SCH ×2 (08:34→20:42)
[2021-01-24] MEDS: HYDROmorphone 2 MG/ML INJ. IVP PRN ×2 (08:43→12:53)
--- NOTE | 2021-01-24 09:41 | PDOC ---
SURGICAL PROGRESS NOTE DATE: 01/24/21 TIME: 09:40 Subjective Patient doing quite well no complaints passing flatus tolerating clear liquids still no bowel movement Vital Signs Vital Signs Date Time Temp Pulse Resp B/P (MAP) Pulse Ox O2 Delivery O2 Flow Rate FiO2 01/24/21 08:00 Room Air 2.0 01/24/21 07:00 98.1 92 20 131/71 (91) 96 98.1 I&O Intake and Output 01/24/21 07:00 Intake Total 1943 ml Output Total 0 ml Balance 1943 ml Intake Oral 1208 ml Blood Product IV Normal Saline Flush 735 ml Output Urine Total 0 ml # Voids 1 PATIENT HAS A JARA: No General: Alert, Oriented X3, Cooperative, No acute distress Abdomen: Normal bowel sounds, Soft, No tenderness Labs Laboratory Tests Test 01/23/21 03:30 01/24/21 05:40 Sodium Level 130 mmol/L (136-145) 132 mmol/L (136-145) Potassium Level 4.5 mmol/L (3.5-5.1) 4.4 mmol/L (3.5-5.1) Chloride Level 96 mmol/L (98-107) 96 mmol/L (98-107) Carbon Dioxide Level 26 mmol/L (21-32) 27 mmol/L (21-32) Anion Gap 8 (6-14) 9 (6-14) Blood Urea Nitrogen 41 mg/dL (8-26) 33 mg/dL (8-26) Creatinine 7.1 mg/dL (0.7-1.3) 5.5 mg/dL (0.7-1.3) Estimated GFR (Cockcroft-Gault) 8.1 10.8 Glucose Level 99 mg/dL (70-99) 85 mg/dL (70-99) Calcium Level 8.7 mg/dL (8.5-10.1) 8.9 mg/dL (8.5-10.1) White Blood Count 7.2 x10^3/uL (4.0-11.0) Red Blood Count 3.34 x10^6/uL (4.30-5.70) Hemoglobin 10.9 g/dL (13.0-17.5) Hematocrit 32.5 % (39.0-53.0) Mean Corpuscular Volume 97 fL (79-100) Mean Corpuscular Hemoglobin 33 pg (25-35) Mean Corpuscular Hemoglobin Concent 34 g/dL (31-37) Red Cell Distribution Width 17.2 % (11.5-14.5) Platelet Count 264 x10^3/uL (140-400) Neutrophils (%) (Auto) 52 % (31-73) Lymphocytes (%) (Auto) 18 % (24-48) Monocytes (%) (Auto) 18 % (0-9) Eosinophils (%) (Auto) 11 % (0-3) Basophils (%) (Auto) 1 % (0-3) Neutrophils # (Auto) 3.7 x10^3/uL (1.8-7.7) Lymphocytes # (Auto) 1.3 x10^3/uL (1.0-4.8) Monocytes # (Auto) 1.3 x10^3/uL (0.0-1.1) Eosinophils # (Auto) 0.8 x10^3/uL (0.0-0.7) Basophils # (Auto) 0.1 x10^3/uL (0.0-0.2) BUN/Creatinine Ratio 6 (6-20) Total Bilirubin 0.4 mg/dL (0.2-1.0) Aspartate Amino Transf (AST/SGOT) 50 U/L (15-37) Alanine Aminotransferase (ALT/SGPT) 50 U/L (16-63) Alkaline Phosphatase 163 U/L (46-116) Total Protein 7.1 g/dL (6.4-8.2) Albumin 2.6 g/dL (3.4-5.0) Albumin/Globulin Ratio 0.6 (1.0-1.7) Laboratory Tests Test 01/24/21 05:40 White Blood Count 7.2 x10^3/uL (4.0-11.0) Red Blood Count 3.34 x10^6/uL (4.30-5.70) Hemoglobin 10.9 g/dL (13.0-17.5) Hematocrit 32.5 % (39.0-53.0) Mean Corpuscular Volume 97 fL (79-100) Mean Corpuscular Hemoglobin 33 pg (25-35) Mean Corpuscular Hemoglobin Concent 34 g/dL (31-37) Red Cell Distribution Width 17.2 % (11.5-14.5) Platelet Count 264 x10^3/uL (140-400) Neutrophils (%) (Auto) 52 % (31-73) Lymphocytes (%) (Auto) 18 % (24-48) Monocytes (%) (Auto) 18 % (0-9) Eosinophils (%) (Auto) 11 % (0-3) Basophils (%) (Auto) 1 % (0-3) Neutrophils # (Auto) 3.7 x10^3/uL (1.8-7.7) Lymphocytes # (Auto) 1.3 x10^3/uL (1.0-4.8) Monocytes # (Auto) 1.3 x10^3/uL (0.0-1.1) Eosinophils # (Auto) 0.8 x10^3/uL (0.0-0.7) Basophils # (Auto) 0.1 x10^3/uL (0.0-0.2) Sodium Level 132 mmol/L (136-145) Potassium Level 4.4 mmol/L (3.5-5.1) Chloride Level 96 mmol/L (98-107) Carbon Dioxide Level 27 mmol/L (21-32) Anion Gap 9 (6-14) Blood Urea Nitrogen 33 mg/dL (8-26) Creatinine 5.5 mg/dL (0.7-1.3) Estimated GFR (Cockcroft-Gault) 10.8 BUN/Creatinine Ratio 6 (6-20) Glucose Level 85 mg/dL (70-99) Calcium Level 8.9 mg/dL (8.5-10.1) Total Bilirubin 0.4 mg/dL (0.2-1.0) Aspartate Amino Transf (AST/SGOT) 50 U/L (15-37) Alanine Aminotransferase (ALT/SGPT) 50 U/L (16-63) Alkaline Phosphatase 163 U/L (46-116) Total Protein 7.1 g/dL (6.4-8.2) Albumin 2.6 g/dL (3.4-5.0) Albumin/Globulin Ratio 0.6 (1.0-1.7) Problem List Problems Medical Problems: (1) Cystitis Status: Acute (2) ESRD (end stage renal disease) Status: Acute (3) Small bowel obstruction Status: Acute Assessment/Plan Still no bowel movement continue clear liquids Try Dulcolax suppository May need small bowel follow-through if no results Justicifation of Admission Dx: Justifications for Admission: Justification of Admission Dx: N/A ORQUIDEA ARELLANO MD Jan 24, 2021 09:40
[2021-01-24] MEDS ORDERED: BISACODYL 10 MG SUPP.RECT. PR ONE (09:45)
[2021-01-24 10:20] LABS: % EOS 13 % (0-5); % LYMPHS 20 % (24-48); % MONOS 16 % (0-10); % SEGS 51 % (35-66)
[2021-01-24 10:21] LABS: ANISOCYTOSIS SLIGHT; PLT ESTIMATE ADEQUATE (ADEQUATE)
--- NOTE | 2021-01-24 12:05 | PDOC ---
GENERAL General: Patient examined chart reviewed no overnight events reported. He sitting up eating lunch hoping to advance his diet, is tired of the clear liquid diet at this point. Denies any nausea or vomiting. Hoping to get away without surgery. Appreciate subspecialty support. We will continue current management otherwise. Problems: (1) End-stage renal disease on hemodialysis (2) Small bowel obstruction VITAL SIGNS Vital Signs/I&O: Vital Signs Date Time Temp Pulse Resp B/P (MAP) Pulse Ox O2 Delivery O2 Flow Rate FiO2 01/24/21 11:12 98.1 90 20 128/65 (86) 98 Room Air 98.1 01/24/21 08:00 2.0 I & O 01/23/21 01/23/21 01/24/21 15:00 23:00 07:00 Intake Total 922 ml 1021 ml Output Total 0 ml 0 ml Balance 922 ml 1021 ml 0 ml In general the patient is pleasant alert and oriented x3 no acute distress sitting up eating lunch HEENT exam is unremarkable Chest is clear to auscultation Heart S1-S2 normal regular rate and rhythm 2 x 6 systolic murmur noted loudest at the left sternal border Abdomen distended bowel sounds are present though diminished soft nontender no masses organomegaly noted Extremity exam is unremarkable for acute abnormality ALLERGIES Allergies: Allergies Coded Allergies Type Severity Reaction Last Updated Verified No Known Drug Allergies 02/03/20 No MEDS Medications: Current Medications Medications (Trade) Dose Ordered Sig/Kevin Route PRN Reason Start Time Stop Time Status Last Admin Dose Admin Polyethylene Glycol (miraLAX PACKET) 17 gm DAILY PO 01/24/21 09:00 01/24/21 08:33 LAB Lab: Laboratory Tests Test 01/24/21 05:40 White Blood Count 7.2 x10^3/uL (4.0-11.0) Red Blood Count 3.34 x10^6/uL (4.30-5.70) L Hemoglobin 10.9 g/dL (13.0-17.5) L Hematocrit 32.5 % (39.0-53.0) L Mean Corpuscular Volume 97 fL (79-100) Mean Corpuscular Hemoglobin 33 pg (25-35) Mean Corpuscular Hemoglobin Concent 34 g/dL (31-37) Red Cell Distribution Width 17.2 % (11.5-14.5) H Platelet Count 264 x10^3/uL (140-400) Neutrophils (%) (Auto) 52 % (31-73) Lymphocytes (%) (Auto) 18 % (24-48) L Monocytes (%) (Auto) 18 % (0-9) H Eosinophils (%) (Auto) 11 % (0-3) H Basophils (%) (Auto) 1 % (0-3) Neutrophils # (Auto) 3.7 x10^3/uL (1.8-7.7) Lymphocytes # (Auto) 1.3 x10^3/uL (1.0-4.8) Monocytes # (Auto) 1.3 x10^3/uL (0.0-1.1) H Eosinophils # (Auto) 0.8 x10^3/uL (0.0-0.7) H Basophils # (Auto) 0.1 x10^3/uL (0.0-0.2) Segmented Neutrophils % 51 % (35-66) Lymphocytes % 20 % (24-48) L Monocytes % 16 % (0-10) H Eosinophils % 13 % (0-5) H Platelet Estimate Adequate (ADEQUATE) Anisocytosis Slight Sodium Level 132 mmol/L (136-145) L Potassium Level 4.4 mmol/L (3.5-5.1) Chloride Level 96 mmol/L (98-107) L Carbon Dioxide Level 27 mmol/L (21-32) Anion Gap 9 (6-14) Blood Urea Nitrogen 33 mg/dL (8-26) H Creatinine 5.5 mg/dL (0.7-1.3) H Estimated GFR (Cockcroft-Gault) 10.8 BUN/Creatinine Ratio 6 (6-20) Glucose Level 85 mg/dL (70-99) Calcium Level 8.9 mg/dL (8.5-10.1) Total Bilirubin 0.4 mg/dL (0.2-1.0) Aspartate Amino Transferase (AST) 50 U/L (15-37) H Alanine Aminotransferase (ALT) 50 U/L (16-63) Alkaline Phosphatase 163 U/L (46-116) H Total Protein 7.1 g/dL (6.4-8.2) Albumin 2.6 g/dL (3.4-5.0) L Albumin/Globulin Ratio 0.6 (1.0-1.7) L Laboratory Tests 01/24/21 05:40 Laboratory Tests 01/24/21 05:40 ASSESSMENT & PLAN A&P Plan as noted above This note was created using [employer] and may have omissions and/or errors due to the nature of real-time voice nitroglycerin neutralizer. Justifications for Admission Other Justification SBO Nutrition Consultation Dietary Evaluation: Recommendations by RD: Dietary education by RD, Increase Calorie Intake, Protein supplementation, PPN/TPN Comments: added ensure clear supplement for extra 240 kcal, 8 g protein/serving Expected Outcomes/Goals: diet advancement once SBO resolves- goal ongoing Malnutrition Findings: Weight Status: Appropriate Fluid Accumulation (Non-Severe: Mild depletion LATOYA GRIER MD Jan 24, 2021 12:05
[2021-01-25] MEDS: HYDROcodone/APAP 5/325MG 1 TAB TABLET PO PRN ×5 (02:38→23:58)
[2021-01-25 03:16] VITALS: BP 153/88
[2021-01-25] MEDS: AMINO AC 3%/ELECTROLYTE/GLYCER 1,000 ML IV SCH ×2 (05:00→21:50)
[2021-01-25] MEDS: POLYETHYLENE GLYCOL 3350 17 GM PACKET. PO SCH (06:56)
[2021-01-25 07:00] VITALS: BP 135/75
--- NOTE | 2021-01-25 07:20 | PDOC ---
[facility] PROGRESS NOTE Date of Service DOS: DATE: 01/25/21 TIME: 07:17 Chief Complaint Chief Complaint A/P: Acute ABD pain due to partial small bowel obstruction with transition point within the ventral peritoneal cavity. Moderate peritoneal fluid consistent with peritoneal dialysis mild Hyperkalemia Mild Transaminitis moderate protien malnutrition Anemia of ESRD General surgery consult following for his small bowel obstruction. Nephrology consulted for ESRD on dialysis History of Present Illness History of Present Illness Mr Dowling is a 55yo M w/ PMHx CHF, COPD, HTN, ESRD on PD recently transitioned to HD who presents to the emergency room complaining of mid abdominal pain that started in the morning on 01/18/2021 after he had 2 bowel movements. Patient stated that he did had some diarrhea that was loose as well. Denies any bloody bowel movements or hematemesis. He has had a single episode of vomiting right before arrival in the emergency room. He states he is never had pain like this previously. He states is a sharp aching pain and constant in nature. Does not seem to get better or worse. He does not believe he has had fever. He was getting peritoneal dialysis but was recently transitioned to hemodialysis. He does still have a peritoneal dialysis catheter in. 01/21: No major events overnight. Patient seen and examined during hemodialysis. Will attempt clears today and see how he does. 01/22: No major events overnight. Patient having some flatus but no bowel movements. Tolerating clears with some belly pain but pain is tolerable. 01/23: Afebrile, no OE. Flatus without BM, 01/24: Afebrile, no OE, Still no BM, passing flatus, tolerating diet well. Afebrile. Still no bowel movement but passing flatus. No vomiting since 01/20/2021. Tolerating liquids well. Suppository was ordered but he is yet to receive it. Discussed with surgery plan for small bowel follow-through study if suppository is ineffective. Vitals/I&O Vitals/I&O: Vital Signs Date Time Temp Pulse Resp B/P (MAP) Pulse Ox O2 Delivery O2 Flow Rate FiO2 01/25/21 03:16 97.4 101 20 153/88 (109) 96 Room Air 97.4 01/24/21 20:01 2.0 I & O 01/24/21 01/24/21 01/25/21 15:00 23:00 07:00 Intake Total 600 ml 300 ml Output Total 300 ml 500 ml 0 ml Balance 300 ml -200 ml 0 ml Physical Exam General: Alert, Oriented X3, Cooperative, No acute distress Heart: Regular rate Lungs: Clear Abdomen: Normal bowel sounds, Soft, No tenderness Extremities: No cyanosis, No edema Skin: No rashes, No breakdown Assessment and Plan Assessmemt and Plan Problems Medical Problems: (1) Cystitis Status: Acute (2) ESRD (end stage renal disease) Status: Acute (3) Small bowel obstruction Status: Acute Comment Review of Relevant I have reviewed the following items allyson (where applicable) has been applied. Medications: Current Medications Medications (Trade) Dose Ordered Sig/Kevin Route PRN Reason Start Time Stop Time Status Last Admin Dose Admin Polyethylene Glycol (miraLAX PACKET) 17 gm DAILY PO 01/24/21 09:00 01/25/21 06:56 Justifications for Admission Other Justification SBO LISA DIOP MD Jan 25, 2021 07:20
[2021-01-25] MEDS: DOCUSATE SODIUM 100 MG CAPSULE. PO PRN (08:34)
[2021-01-25] MEDS: HEPARIN for SUB-Q USE 5,000 UNIT/ML VIAL. SQ SCH ×2 (08:41→21:55)
--- NOTE | 2021-01-25 09:25 | PDOC ---
SURGICAL PROGRESS NOTE DATE: 01/25/21 TIME: 09:24 Subjective Patient doing quite well denies any abdominal pain no nausea vomiting tolerating clear liquid diet stating he is passing flatus but no bowel movement Vital Signs Vital Signs Date Time Temp Pulse Resp B/P (MAP) Pulse Ox O2 Delivery O2 Flow Rate FiO2 01/25/21 08:34 Room Air 01/25/21 07:00 97.7 85 18 135/75 (95) 96 97.7 01/24/21 20:01 2.0 I&O Intake and Output 01/25/21 07:00 Intake Total 900 ml Output Total 800 ml Balance 100 ml Intake Oral 900 ml Output Urine Total 800 ml PATIENT HAS A JARA: No General: Alert, Oriented X3, Cooperative, No acute distress Abdomen: Normal bowel sounds, Soft, No tenderness Labs Laboratory Tests Test 01/24/21 05:40 White Blood Count 7.2 x10^3/uL (4.0-11.0) Red Blood Count 3.34 x10^6/uL (4.30-5.70) Hemoglobin 10.9 g/dL (13.0-17.5) Hematocrit 32.5 % (39.0-53.0) Mean Corpuscular Volume 97 fL (79-100) Mean Corpuscular Hemoglobin 33 pg (25-35) Mean Corpuscular Hemoglobin Concent 34 g/dL (31-37) Red Cell Distribution Width 17.2 % (11.5-14.5) Platelet Count 264 x10^3/uL (140-400) Neutrophils (%) (Auto) 52 % (31-73) Lymphocytes (%) (Auto) 18 % (24-48) Monocytes (%) (Auto) 18 % (0-9) Eosinophils (%) (Auto) 11 % (0-3) Basophils (%) (Auto) 1 % (0-3) Neutrophils # (Auto) 3.7 x10^3/uL (1.8-7.7) Lymphocytes # (Auto) 1.3 x10^3/uL (1.0-4.8) Monocytes # (Auto) 1.3 x10^3/uL (0.0-1.1) Eosinophils # (Auto) 0.8 x10^3/uL (0.0-0.7) Basophils # (Auto) 0.1 x10^3/uL (0.0-0.2) Segmented Neutrophils % 51 % (35-66) Lymphocytes % 20 % (24-48) Monocytes % 16 % (0-10) Eosinophils % 13 % (0-5) Platelet Estimate Adequate (ADEQUATE) Anisocytosis Slight Sodium Level 132 mmol/L (136-145) Potassium Level 4.4 mmol/L (3.5-5.1) Chloride Level 96 mmol/L (98-107) Carbon Dioxide Level 27 mmol/L (21-32) Anion Gap 9 (6-14) Blood Urea Nitrogen 33 mg/dL (8-26) Creatinine 5.5 mg/dL (0.7-1.3) Estimated GFR (Cockcroft-Gault) 10.8 BUN/Creatinine Ratio 6 (6-20) Glucose Level 85 mg/dL (70-99) Calcium Level 8.9 mg/dL (8.5-10.1) Total Bilirubin 0.4 mg/dL (0.2-1.0) Aspartate Amino Transf (AST/SGOT) 50 U/L (15-37) Alanine Aminotransferase (ALT/SGPT) 50 U/L (16-63) Alkaline Phosphatase 163 U/L (46-116) Total Protein 7.1 g/dL (6.4-8.2) Albumin 2.6 g/dL (3.4-5.0) Albumin/Globulin Ratio 0.6 (1.0-1.7) Problem List Problems Medical Problems: (1) Cystitis Status: Acute (2) ESRD (end stage renal disease) Status: Acute (3) Small bowel obstruction Status: Acute Assessment/Plan Patient did not receive Dulcolax suppository yesterday we will try today hopefully bowel movement so diet may be advanced Justicifation of Admission Dx: Justifications for Admission: Justification of Admission Dx: N/A ORQUIDEA ARELLANO MD Jan 25, 2021 09:25
[2021-01-25 11:00] VITALS: BP 136/61
[2021-01-25] MEDS ORDERED: BISACODYL 10 MG SUPP.RECT. PR ONE (11:00)
[2021-01-25 15:00] VITALS: BP 130/70
[2021-01-25 19:00] VITALS: BP 148/70
[2021-01-25 23:30] VITALS: BP 141/77
[2021-01-26 03:00] VITALS: BP 138/70
[2021-01-26] MEDS: AMINO AC 3%/ELECTROLYTE/GLYCER 1,000 ML IV SCH ×2 (06:00→15:28)
[2021-01-26] MEDS: HYDROcodone/APAP 5/325MG 1 TAB TABLET PO PRN ×4 (06:20→20:23)
[2021-01-26 07:00] VITALS: BP 140/62
[2021-01-26] MEDS: POLYETHYLENE GLYCOL 3350 17 GM PACKET. PO SCH (08:25)
[2021-01-26] MEDS: HEPARIN for SUB-Q USE 5,000 UNIT/ML VIAL. SQ SCH ×2 (08:27→20:27)
--- NOTE | 2021-01-26 08:44 | PDOC ---
SURGICAL PROGRESS NOTE DATE: 01/26/21 TIME: 08:43 Subjective Patient did have a bowel movement overnight but this morning states he feels his abdomen is more distended and uncomfortable Vital Signs Vital Signs Date Time Temp Pulse Resp B/P (MAP) Pulse Ox O2 Delivery O2 Flow Rate FiO2 01/26/21 08:39 Room Air 01/26/21 07:00 97.9 88 20 140/62 (88) 94 97.9 I&O Intake and Output 01/26/21 07:00 Intake Total 5660 ml Output Total 460 ml Balance 5200 ml Intake Oral 1475 ml IV Total 950 ml Blood Product IV Normal Saline Flush 3235 ml Output Urine Total 460 ml PATIENT HAS A JARA: No General: Alert, Oriented X3, Cooperative, mild distress Abdomen: Soft, Other (Mildly diffusely tender distended) Problem List Problems Medical Problems: (1) Cystitis Status: Acute (2) ESRD (end stage renal disease) Status: Acute (3) Small bowel obstruction Status: Acute Assessment/Plan More distended this morning maintain clear liquid diet Justicifation of Admission Dx: Justifications for Admission: Justification of Admission Dx: N/A ORQUIDEA ARELLANO MD Jan 26, 2021 08:44
[2021-01-26] MEDS ORDERED: LIDOCAINE 1% PF 2 ML VIAL. INJ PRN (09:00)
[2021-01-26] MEDS ORDERED: DIALYSIS PATIENT. MC PRN ×2 (09:00)
[2021-01-26] MEDS ORDERED: ALBUMIN HUMAN 25% 200 ML IV PRN (09:00)
[2021-01-26] MEDS ORDERED: IV NORMAL SALINE 1000ML BAG 1,000 ML IV PRN ×2 (09:00)
--- NOTE | 2021-01-26 09:32 | NUR ---
PPN nonadministered by this RN. Current bottle still infusing. Refer to EMAR for details.
[2021-01-26 10:45] LABS: ALBUMIN 2.2 g/dL (3.4-5.0); CALCIUM 8.5 mg/dL (8.5-10.1); CREATININE 7.4 mg/dL (0.7-1.3); GFR 7.7; PHOSPHORUS 6.8 mg/dL (2.6-4.7); POTASSIUM 5.7 mmol/L (3.5-5.1)
--- NOTE | 2021-01-26 11:46 | PDOC ---
[facility] PROGRESS NOTE Date of Service DOS: DATE: 01/26/21 TIME: 11:44 Chief Complaint Chief Complaint A/P: Acute ABD pain due to partial small bowel obstruction with transition point within the ventral peritoneal cavity. Moderate peritoneal fluid consistent with peritoneal dialysis mild Hyperkalemia Mild Transaminitis moderate protien malnutrition Anemia of ESRD General surgery consult following for his small bowel obstruction. Nephrology consulted for ESRD on dialysis History of Present Illness History of Present Illness Mr Dowling is a 55yo M w/ PMHx CHF, COPD, HTN, ESRD on PD recently transitioned to HD who presents to the emergency room complaining of mid abdominal pain that started in the morning on 01/18/2021 after he had 2 bowel movements. Patient stated that he did had some diarrhea that was loose as well. Denies any bloody bowel movements or hematemesis. He has had a single episode of vomiting right before arrival in the emergency room. He states he is never had pain like this previously. He states is a sharp aching pain and constant in nature. Does not seem to get better or worse. He does not believe he has had fever. He was getting peritoneal dialysis but was recently transitioned to hemodialysis. He does still have a peritoneal dialysis catheter in. 01/21: No major events overnight. Patient seen and examined during hemodialysis. Will attempt clears today and see how he does. 01/22: No major events overnight. Patient having some flatus but no bowel movements. Tolerating clears with some belly pain but pain is tolerable. 01/23: Afebrile, no OE. Flatus without BM, 01/24: Afebrile, no OE, Still no BM, passing flatus, tolerating diet well. 01/25: Afebrile. Still no bowel movement but passing flatus. No vomiting since 01/20/2021. Tolerating liquids well. Suppository given. Discussed with surgery plan for small bowel follow-through study if suppository is ineffective. Had small bowel movement overnight. Per surgery still pretty distended and tender. Vitals/I&O Vitals/I&O: Vital Signs Date Time Temp Pulse Resp B/P (MAP) Pulse Ox O2 Delivery O2 Flow Rate FiO2 01/26/21 09:58 14 95 Room Air 01/26/21 07:00 97.9 88 140/62 (88) 97.9 I & O 01/25/21 01/25/21 01/26/21 15:00 23:00 07:00 Intake Total 3375 ml 2135 ml 150 ml Output Total 460 ml 0 ml Balance 2915 ml 2135 ml 150 ml Physical Exam General: Alert, Oriented X3, Cooperative, mild distress Heart: Regular rate Lungs: Clear Abdomen: Soft, Other (Mildly diffusely tender distended) Extremities: No cyanosis, No edema Skin: No rashes, No breakdown Labs Labs: Laboratory Tests Test 01/26/21 09:30 Sodium Level 130 mmol/L (136-145) Potassium Level 5.7 mmol/L (3.5-5.1) Chloride Level 97 mmol/L (98-107) Carbon Dioxide Level 23 mmol/L (21-32) Anion Gap 10 (6-14) Blood Urea Nitrogen 50 mg/dL (8-26) Creatinine 7.4 mg/dL (0.7-1.3) Estimated GFR (Cockcroft-Gault) 7.7 Glucose Level 83 mg/dL (70-99) Calcium Level 8.5 mg/dL (8.5-10.1) Phosphorus Level 6.8 mg/dL (2.6-4.7) Albumin 2.2 g/dL (3.4-5.0) Assessment and Plan Assessmemt and Plan Problems Medical Problems: (1) Cystitis Status: Acute (2) ESRD (end stage renal disease) Status: Acute (3) Small bowel obstruction Status: Acute Comment Review of Relevant I have reviewed the following items allyson (where applicable) has been applied. Justifications for Admission Other Justification SBO LISA DIOP MD Jan 26, 2021 11:46
--- NOTE | 2021-01-26 11:54 | PDOC ---
DATE OF SERVICE DATE: 01/26/21 TIME: 11:47 SUBJECTIVE ROS seen during dialysis, still c/o abdominal pain, better since presentation Denies N/V OBJECTIVE Vital Signs Vital Signs Date Time Temp Pulse Resp B/P (MAP) Pulse Ox O2 Delivery O2 Flow Rate FiO2 01/26/21 09:58 14 95 Room Air 01/26/21 07:00 97.9 88 140/62 (88) 97.9 I & 0 Intake and Output 01/26/21 07:00 Intake Total 5660 ml Output Total 460 ml Balance 5200 ml Intake Oral 1475 ml IV Total 950 ml Blood Product IV Normal Saline Flush 3235 ml Output Urine Total 460 ml PHYSICAL EXAM Physical Exam GEN: In no distress HEEN OM moist , facial swelling - chronic for past few months ,, better NECK: Supple CVS: S1S2, soft Murmur, RESP: no Rales, no Rhonchi,no Acc. Muscle Use GI: BS hypoactive, NO Bruit, Non Tender, PD catheter in place : no CVA tenderness, no Suprapubic Tenderness, Has Suprapubic Catheter DIAGNOSIS/ASSESSMENT Assessment & Plan ESRD - on HD TTS at [facility], switched from PD . Seen on dialysis, tolerating well , continue as ordered , Ryan Molina Scheduled for PD cath removal with Dr. Navarrete Acute ABD pain due to partial small bowel obstruction with transition point within the ventral peritoneal cavity- GS following Hyperkalemia POA- K mildly elevated - Dialysis today Anemia No Indication for CLIFF , Monitor Hyper Phos- much improved since switiching to HD . On Phos binders Hx of Urinary retention with Suprapubic catheter for 2+ years COMMENT/RELEVANT DATA Meds Current Medications Medications (Trade) Dose Ordered Sig/Kevin Start Time Stop Time Status Last Admin Dose Admin Acetaminophen (Tylenol) 500 mg 1X PRN PRN 01/23/21 07:30 01/24/21 07:29 DC Acetaminophen/ Hydrocodone Bitart (Lortab 5/325) 2 tab PRN Q4HRS PRN 01/18/21 18:30 01/26/21 09:58 2 TAB Albumin Human 200 ml @ 200 mls/hr 1X PRN PRN 01/26/21 09:00 01/26/21 14:59 Amino Acids/ Glycerin/ Electrolytes 1,000 ml @ 80 mls/hr [id number] 01/20/21 12:30 01/25/21 21:50 80 MLS/HR Benzocaine (Hurricaine One) 1 spray 1X ONCE 01/18/21 18:00 01/18/21 18:01 DC 01/18/21 18:00 1 SPRAY Bisacodyl (Dulcolax Supp) 10 mg 1X ONCE 01/25/21 11:00 01/25/21 11:01 DC 01/25/21 11:46 10 MG Dextrose (Dextrose 50%-Water Syringe) 12.5 gm PRN Q15MIN PRN 01/18/21 18:30 Diphenhydramine HCl (Benadryl) 25 mg 1X PRN PRN 01/23/21 07:30 01/24/21 07:29 DC Docusate Sodium (Colace) 100 mg PRN DAILY PRN 01/18/21 18:30 01/25/21 08:34 100 MG Furosemide (Lasix) 40 mg PRN 1X PRN 01/19/21 06:30 01/21/21 12:05 DC Heparin Sodium (Porcine) (Heparin Sodium) 5,000 unit Q12HR 01/18/21 21:00 01/26/21 08:27 5,000 UNIT Hydromorphone HCl (Dilaudid) 0.2 mg PRN Q2HR PRN 01/18/21 21:15 01/24/21 12:53 0.2 MG Info (CONTRAST GIVEN -- Rx MONITORING) 1 each PRN DAILY PRN 01/18/21 14:45 01/20/21 14:44 DC Info (PHARMACY MONITORING -- do not chart) 1 each PRN DAILY PRN 01/26/21 09:00 Iohexol (Omnipaque 240 Mg/ml) 30 ml 1X ONCE 01/18/21 14:45 01/18/21 14:46 DC 01/18/21 14:48 30 ML Iohexol (Omnipaque 300 Mg/ml) 75 ml 1X ONCE 01/18/21 14:45 01/18/21 14:46 DC 01/18/21 14:45 60 ML Lidocaine HCl (Xylocaine-Mpf 1% 2ml Vial) 2 ml 1X PRN PRN 01/26/21 09:00 01/27/21 08:59 Morphine Sulfate (Morphine Sulfate) 2 mg PRN Q2HR PRN 01/18/21 18:30 01/19/21 04:03 DC 01/18/21 19:34 2 MG Ondansetron HCl (Zofran) 4 mg PRN Q6HRS PRN 01/18/21 18:30 01/20/21 11:05 4 MG Piperacillin Sod/ Tazobactam Sod 3.375 gm/Sodium Chloride 50 ml @ 100 mls/hr 1X ONCE 01/18/21 16:45 01/18/21 17:14 DC 01/18/21 16:45 100 MLS/HR Polyethylene Glycol (miraLAX PACKET) 17 gm DAILY 01/24/21 09:00 01/26/21 08:25 17 GM Saliva Substitute (Biotene Moisturizing Mouth) 2 spray PRN Q15MIN PRN 01/20/21 12:30 01/20/21 13:29 2 SPRAY Sennosides (Senna) 17.2 mg PRN BID PRN 01/18/21 18:30 Sodium Chloride 1,000 ml @ 400 mls/hr Q2H30M PRN 01/26/21 09:00 01/26/21 20:59 Lab Laboratory Tests Test 01/26/21 09:30 Sodium Level 130 mmol/L (136-145) Potassium Level 5.7 mmol/L (3.5-5.1) Chloride Level 97 mmol/L (98-107) Carbon Dioxide Level 23 mmol/L (21-32) Anion Gap 10 (6-14) Blood Urea Nitrogen 50 mg/dL (8-26) Creatinine 7.4 mg/dL (0.7-1.3) Estimated GFR (Cockcroft-Gault) 7.7 Glucose Level 83 mg/dL (70-99) Calcium Level 8.5 mg/dL (8.5-10.1) Phosphorus Level 6.8 mg/dL (2.6-4.7) Albumin 2.2 g/dL (3.4-5.0) Results All relevant outside records, renal labs, imaging studies, telemetry/EKG's were reviewed. Justicifation of Admission Dx: Justifications for Admission: Justification of Admission Dx: N/A MARIYA NORMAN MD Jan 26, 2021 11:54
--- NOTE | 2021-01-26 12:30 | NUR ---
SW following. Discussed with RN, pt from home, room air, clear liquid diet. Plan is home when medically stable. SW will continue to follow.
[2021-01-26 15:00] VITALS: BP 120/69
[2021-01-26] MEDS: DOCUSATE SODIUM 100 MG CAPSULE. PO PRN (15:28)
[2021-01-26 19:00] VITALS: BP 130/66
[2021-01-26 22:37] VITALS: BP 119/66
[2021-01-27 03:00] VITALS: BP 133/74
[2021-01-27] MEDS: AMINO AC 3%/ELECTROLYTE/GLYCER 1,000 ML IV SCH ×2 (05:19→19:07)
[2021-01-27 07:00] VITALS: BP 121/72
--- NOTE | 2021-01-27 07:30 | PDOC ---
[employer] [facility] PROGRESS NOTE Date of Service DOS: DATE: 01/27/21 TIME: 07:30 Chief Complaint Chief Complaint A/P: Acute ABD pain due to partial small bowel obstruction with transition point within the ventral peritoneal cavity. Moderate peritoneal fluid consistent with peritoneal dialysis mild Hyperkalemia Mild Transaminitis moderate protien malnutrition Anemia of ESRD General surgery consult following for his small bowel obstruction. Nephrology consulted for ESRD on dialysis History of Present Illness History of Present Illness Mr Dowling is a 55yo M w/ PMHx CHF, COPD, HTN, ESRD on PD recently transitioned to HD who presents to the emergency room complaining of mid abdominal pain that started in the morning on 01/18/2021 after he had 2 bowel movements. Patient stated that he did had some diarrhea that was loose as well. Denies any bloody bowel movements or hematemesis. He has had a single episode of vomiting right before arrival in the emergency room. He states he is never had pain like this previously. He states is a sharp aching pain and constant in nature. Does not seem to get better or worse. He does not believe he has had fever. He was getting peritoneal dialysis but was recently transitioned to hemodialysis. He does still have a peritoneal dialysis catheter in. 01/21: No major events overnight. Patient seen and examined during hemodialysis. Will attempt clears today and see how he does. 01/22: No major events overnight. Patient having some flatus but no bowel movements. Tolerating clears with some belly pain but pain is tolerable. 01/23: Afebrile, no OE. Flatus without BM, 01/24: Afebrile, no OE, Still no BM, passing flatus, tolerating diet well. 01/25: Afebrile. Still no bowel movement but passing flatus. No vomiting since 01/20/2021. Tolerating liquids well. Suppository given. Discussed with surgery plan for small bowel follow-through study if suppository is ineffective. 01/26: Had small bowel movement overnight. Per surgery still pretty distended and tender. No further BM. Still requiring regular pain medication still very distended and tender. Afebrile. Passing flatus. No vomiting. Some nausea. Vitals/I&O Vitals/I&O: Vital Signs Date Time Temp Pulse Resp B/P (MAP) Pulse Ox O2 Delivery O2 Flow Rate FiO2 01/27/21 03:00 98.2 92 18 133/74 (93) 95 Room Air 2.0 98.2 I & O 01/26/21 01/26/21 01/27/21 15:00 23:00 07:00 Intake Total 1000 ml Balance 1000 ml Physical Exam General: Alert, Oriented X3, Cooperative, mild distress Heart: Regular rate Lungs: Clear Abdomen: Soft, Other (Mildly diffusely tender distended) Extremities: No cyanosis, No edema Skin: No rashes, No breakdown Labs Labs: Laboratory Tests Test 01/26/21 09:30 Sodium Level 130 mmol/L (136-145) Potassium Level 5.7 mmol/L (3.5-5.1) Chloride Level 97 mmol/L (98-107) Carbon Dioxide Level 23 mmol/L (21-32) Anion Gap 10 (6-14) Blood Urea Nitrogen 50 mg/dL (8-26) Creatinine 7.4 mg/dL (0.7-1.3) Estimated GFR (Cockcroft-Gault) 7.7 Glucose Level 83 mg/dL (70-99) Calcium Level 8.5 mg/dL (8.5-10.1) Phosphorus Level 6.8 mg/dL (2.6-4.7) Albumin 2.2 g/dL (3.4-5.0) Assessment and Plan Assessmemt and Plan Problems Medical Problems: (1) Cystitis Status: Acute (2) ESRD (end stage renal disease) Status: Acute (3) Small bowel obstruction Status: Acute Comment Review of Relevant I have reviewed the following items allyson (where applicable) has been applied. Justifications for Admission Other Justification SBO LISA DIOP MD Jan 27, 2021 07:30
[2021-01-27] MEDS: HYDROcodone/APAP 5/325MG 1 TAB TABLET PO PRN ×4 (08:35→23:13)
[2021-01-27] MEDS: POLYETHYLENE GLYCOL 3350 17 GM PACKET. PO SCH (08:35)
[2021-01-27] MEDS: HEPARIN for SUB-Q USE 5,000 UNIT/ML VIAL. SQ SCH ×2 (08:47→20:31)
--- NOTE | 2021-01-27 10:08 | PDOC ---
DATE OF SERVICE DATE: 01/27/21 TIME: 10:07 SUBJECTIVE ROS seen during dialysis, still c/o abdominal pain, better since presentation Denies N/V OBJECTIVE Vital Signs Vital Signs Date Time Temp Pulse Resp B/P (MAP) Pulse Ox O2 Delivery O2 Flow Rate FiO2 01/27/21 07:00 98.2 96 18 121/72 (88) 94 Room Air 98.2 01/27/21 03:00 2.0 I & 0 Intake and Output 01/27/21 07:00 Intake Total 1000 ml Balance 1000 ml IV Total 1000 ml # Voids 3 PHYSICAL EXAM Physical Exam GEN: In no distress HEEN OM moist , facial swelling - chronic for past few months ,, better NECK: Supple CVS: S1S2, soft Murmur, RESP: no Rales, no Rhonchi,no Acc. Muscle Use GI: BS hypoactive, NO Bruit, Non Tender, PD catheter in place : no CVA tenderness, no Suprapubic Tenderness, Has Suprapubic Catheter DIAGNOSIS/ASSESSMENT Assessment & Plan ESRD - on HD TTS at [facility], switched from PD . Scheduled for PD cath removal with Dr. Navarrete Acute ABD pain due to partial small bowel obstruction with transition point within the ventral peritoneal cavity- GS following Hyperkalemia POA- K mildly elevated - Dialysis today Anemia No Indication for CLIFF , Monitor Hyper Phos- much improved since switiching to HD . On Phos binders Hx of Urinary retention with Suprapubic catheter for 2+ years COMMENT/RELEVANT DATA Meds Current Medications Medications (Trade) Dose Ordered Sig/Kevin Start Time Stop Time Status Last Admin Dose Admin Acetaminophen (Tylenol) 500 mg 1X PRN PRN 01/23/21 07:30 01/24/21 07:29 DC Acetaminophen/ Hydrocodone Bitart (Lortab 5/325) 2 tab PRN Q4HRS PRN 01/18/21 18:30 01/27/21 08:35 2 TAB Albumin Human 200 ml @ 200 mls/hr 1X PRN PRN 01/26/21 09:00 01/26/21 14:59 DC Amino Acids/ Glycerin/ Electrolytes 1,000 ml @ 80 mls/hr [id number] 01/20/21 12:30 01/27/21 05:19 80 MLS/HR Benzocaine (Hurricaine One) 1 spray 1X ONCE 01/18/21 18:00 01/18/21 18:01 DC 01/18/21 18:00 1 SPRAY Bisacodyl (Dulcolax Supp) 10 mg 1X ONCE 01/25/21 11:00 01/25/21 11:01 DC 01/25/21 11:46 10 MG Dextrose (Dextrose 50%-Water Syringe) 12.5 gm PRN Q15MIN PRN 01/18/21 18:30 Diphenhydramine HCl (Benadryl) 25 mg 1X PRN PRN 01/23/21 07:30 01/24/21 07:29 DC Docusate Sodium (Colace) 100 mg PRN DAILY PRN 01/18/21 18:30 01/26/21 15:28 100 MG Furosemide (Lasix) 40 mg PRN 1X PRN 01/19/21 06:30 01/21/21 12:05 DC Heparin Sodium (Porcine) (Heparin Sodium) 5,000 unit Q12HR 01/18/21 21:00 01/27/21 08:47 5,000 UNIT Hydromorphone HCl (Dilaudid) 0.2 mg PRN Q2HR PRN 01/18/21 21:15 01/24/21 12:53 0.2 MG Info (CONTRAST GIVEN -- Rx MONITORING) 1 each PRN DAILY PRN 01/18/21 14:45 01/20/21 14:44 DC Info (PHARMACY MONITORING -- do not chart) 1 each PRN DAILY PRN 01/26/21 09:00 Iohexol (Omnipaque 240 Mg/ml) 30 ml 1X ONCE 01/18/21 14:45 01/18/21 14:46 DC 01/18/21 14:48 30 ML Iohexol (Omnipaque 300 Mg/ml) 75 ml 1X ONCE 01/18/21 14:45 01/18/21 14:46 DC 01/18/21 14:45 60 ML Lidocaine HCl (Xylocaine-Mpf 1% 2ml Vial) 2 ml 1X PRN PRN 01/26/21 09:00 01/27/21 08:59 DC Morphine Sulfate (Morphine Sulfate) 2 mg PRN Q2HR PRN 01/18/21 18:30 01/19/21 04:03 DC 01/18/21 19:34 2 MG Ondansetron HCl (Zofran) 4 mg PRN Q6HRS PRN 01/18/21 18:30 01/20/21 11:05 4 MG Piperacillin Sod/ Tazobactam Sod 3.375 gm/Sodium Chloride 50 ml @ 100 mls/hr 1X ONCE 01/18/21 16:45 01/18/21 17:14 DC 01/18/21 16:45 100 MLS/HR Polyethylene Glycol (miraLAX PACKET) 17 gm DAILY 01/24/21 09:00 01/27/21 08:35 17 GM Saliva Substitute (Biotene Moisturizing Mouth) 2 spray PRN Q15MIN PRN 01/20/21 12:30 01/20/21 13:29 2 SPRAY Sennosides (Senna) 17.2 mg PRN BID PRN 01/18/21 18:30 Sodium Chloride 1,000 ml @ 400 mls/hr Q2H30M PRN 01/26/21 09:00 01/26/21 20:59 DC Results All relevant outside records, renal labs, imaging studies, telemetry/EKG's were reviewed. Justicifation of Admission Dx: Justifications for Admission: Justification of Admission Dx: N/A MARIYA NORMAN MD Jan 27, 2021 10:07
[2021-01-27 11:00] VITALS: BP 121/64
--- NOTE | 2021-01-27 11:24 | PDOC ---
SURGICAL PROGRESS NOTE DATE: 01/27/21 TIME: 11:23 Subjective Patient resting comfortably states he is feeling better still passing flatus Vital Signs Vital Signs Date Time Temp Pulse Resp B/P (MAP) Pulse Ox O2 Delivery O2 Flow Rate FiO2 01/27/21 07:00 98.2 96 18 121/72 (88) 94 Room Air 98.2 01/27/21 03:00 2.0 I&O Intake and Output 01/27/21 07:00 Intake Total 1000 ml Balance 1000 ml IV Total 1000 ml # Voids 3 PATIENT HAS A JARA: No General: Alert, Oriented X3, Cooperative, mild distress Abdomen: Normal bowel sounds, Soft, Other (Mildly distended) Labs Laboratory Tests Test 01/26/21 09:30 Sodium Level 130 mmol/L (136-145) Potassium Level 5.7 mmol/L (3.5-5.1) Chloride Level 97 mmol/L (98-107) Carbon Dioxide Level 23 mmol/L (21-32) Anion Gap 10 (6-14) Blood Urea Nitrogen 50 mg/dL (8-26) Creatinine 7.4 mg/dL (0.7-1.3) Estimated GFR (Cockcroft-Gault) 7.7 Glucose Level 83 mg/dL (70-99) Calcium Level 8.5 mg/dL (8.5-10.1) Phosphorus Level 6.8 mg/dL (2.6-4.7) Albumin 2.2 g/dL (3.4-5.0) Problem List Problems Medical Problems: (1) Cystitis Status: Acute (2) ESRD (end stage renal disease) Status: Acute (3) Small bowel obstruction Status: Acute Assessment/Plan Slow to progress. Agree with ordering of small bowel follow-through we will follow up on results Justicifation of Admission Dx: Justifications for Admission: Justification of Admission Dx: N/A ORQUIDEA ARELLANO MD Jan 27, 2021 11:24
--- NOTE | 2021-01-27 11:32 | PDOC ---
DATE OF SERVICE DATE: 01/27/21 TIME: 11:26 SUBJECTIVE ROS Denies N/V , still c/o abdominal pain. OBJECTIVE Vital Signs Vital Signs Date Time Temp Pulse Resp B/P (MAP) Pulse Ox O2 Delivery O2 Flow Rate FiO2 01/27/21 07:00 98.2 96 18 121/72 (88) 94 Room Air 98.2 01/27/21 03:00 2.0 I & 0 Intake and Output 01/27/21 07:00 Intake Total 1000 ml Balance 1000 ml IV Total 1000 ml # Voids 3 PHYSICAL EXAM Physical Exam GEN: In no distress HEEN OM moist , facial swelling - chronic for past few months ,, better NECK: Supple CVS: S1S2, soft Murmur, RESP: no Rales, no Rhonchi,no Acc. Muscle Use GI: BS hypoactive, NO Bruit, Non Tender, PD catheter in place : no CVA tenderness, no Suprapubic Tenderness, Has Suprapubic Catheter DIAGNOSIS/ASSESSMENT Assessment & Plan ESRD - on HD TTS at [facility], switched from PD , Currently no indication for dialysis today Scheduled for PD cath removal with Dr. Navarrete Acute ABD pain due to partial small bowel obstruction with transition point w ithin the ventral peritoneal cavity- GS following Hyperkalemia POA Anemia No Indication for CLIFF , Monitor Hyper Phos- much improved since switiching to HD . On Phos binders Hx of Urinary retention with Suprapubic catheter for 2+ years COMMENT/RELEVANT DATA Meds Current Medications Medications (Trade) Dose Ordered Sig/Kevin Start Time Stop Time Status Last Admin Dose Admin Acetaminophen (Tylenol) 500 mg 1X PRN PRN 01/23/21 07:30 01/24/21 07:29 DC Acetaminophen/ Hydrocodone Bitart (Lortab 5/325) 2 tab PRN Q4HRS PRN 01/18/21 18:30 01/27/21 08:35 2 TAB Albumin Human 200 ml @ 200 mls/hr 1X PRN PRN 01/26/21 09:00 01/26/21 14:59 DC Amino Acids/ Glycerin/ Electrolytes 1,000 ml @ 80 mls/hr [id number] 01/20/21 12:30 01/27/21 05:19 80 MLS/HR Benzocaine (Hurricaine One) 1 spray 1X ONCE 01/18/21 18:00 01/18/21 18:01 DC 01/18/21 18:00 1 SPRAY Bisacodyl (Dulcolax Supp) 10 mg 1X ONCE 01/25/21 11:00 01/25/21 11:01 DC 01/25/21 11:46 10 MG Dextrose (Dextrose 50%-Water Syringe) 12.5 gm PRN Q15MIN PRN 01/18/21 18:30 Diphenhydramine HCl (Benadryl) 25 mg 1X PRN PRN 01/23/21 07:30 01/24/21 07:29 DC Docusate Sodium (Colace) 100 mg PRN DAILY PRN 01/18/21 18:30 01/26/21 15:28 100 MG Furosemide (Lasix) 40 mg PRN 1X PRN 01/19/21 06:30 01/21/21 12:05 DC Heparin Sodium (Porcine) (Heparin Sodium) 5,000 unit Q12HR 01/18/21 21:00 01/27/21 08:47 5,000 UNIT Hydromorphone HCl (Dilaudid) 0.2 mg PRN Q2HR PRN 01/18/21 21:15 01/24/21 12:53 0.2 MG Info (CONTRAST GIVEN -- Rx MONITORING) 1 each PRN DAILY PRN 01/18/21 14:45 01/20/21 14:44 DC Info (PHARMACY MONITORING -- do not chart) 1 each PRN DAILY PRN 01/26/21 09:00 Iohexol (Omnipaque 240 Mg/ml) 30 ml 1X ONCE 01/18/21 14:45 01/18/21 14:46 DC 01/18/21 14:48 30 ML Iohexol (Omnipaque 300 Mg/ml) 75 ml 1X ONCE 01/18/21 14:45 01/18/21 14:46 DC 01/18/21 14:45 60 ML Lidocaine HCl (Xylocaine-Mpf 1% 2ml Vial) 2 ml 1X PRN PRN 01/26/21 09:00 01/27/21 08:59 DC Morphine Sulfate (Morphine Sulfate) 2 mg PRN Q2HR PRN 01/18/21 18:30 01/19/21 04:03 DC 01/18/21 19:34 2 MG Ondansetron HCl (Zofran) 4 mg PRN Q6HRS PRN 01/18/21 18:30 01/20/21 11:05 4 MG Piperacillin Sod/ Tazobactam Sod 3.375 gm/Sodium Chloride 50 ml @ 100 mls/hr 1X ONCE 01/18/21 16:45 01/18/21 17:14 DC 01/18/21 16:45 100 MLS/HR Polyethylene Glycol (miraLAX PACKET) 17 gm DAILY 01/24/21 09:00 01/27/21 08:35 17 GM Saliva Substitute (Biotene Moisturizing Mouth) 2 spray PRN Q15MIN PRN 01/20/21 12:30 01/20/21 13:29 2 SPRAY Sennosides (Senna) 17.2 mg PRN BID PRN 01/18/21 18:30 Sodium Chloride 1,000 ml @ 400 mls/hr Q2H30M PRN 01/26/21 09:00 01/26/21 20:59 DC Results All relevant outside records, renal labs, imaging studies, telemetry/EKG's were reviewed. Justicifation of Admission Dx: Justifications for Admission: Justification of Admission Dx: N/A MARIYA NORMAN MD Jan 27, 2021 11:32
[2021-01-27 15:00] VITALS: BP 114/63
[2021-01-27 19:00] VITALS: BP 132/64
[2021-01-27 23:50] VITALS: BP 127/65
[2021-01-28 03:22] VITALS: BP 124/70
[2021-01-28] MEDS: HYDROcodone/APAP 5/325MG 1 TAB TABLET PO PRN ×4 (06:34→22:15)
--- NOTE | 2021-01-28 07:29 | PDOC ---
[employer] [facility] PROGRESS NOTE Date of Service DOS: DATE: 01/28/21 TIME: 07:28 Chief Complaint Chief Complaint A/P: Acute ABD pain due to partial small bowel obstruction with transition point within the ventral peritoneal cavity. Moderate peritoneal fluid consistent with peritoneal dialysis mild Hyperkalemia Mild Transaminitis moderate protien malnutrition Anemia of ESRD General surgery consult following for his small bowel obstruction. Nephrology consulted for ESRD on dialysis History of Present Illness History of Present Illness Mr Dowling is a 55yo M w/ PMHx CHF, COPD, HTN, ESRD on PD recently transitioned to HD who presents to the emergency room complaining of mid abdominal pain that started in the morning on 01/18/2021 after he had 2 bowel movements. Patient stated that he did had some diarrhea that was loose as well. Denies any bloody bowel movements or hematemesis. He has had a single episode of vomiting right before arrival in the emergency room. He states he is never had pain like this previously. He states is a sharp aching pain and constant in nature. Does not seem to get better or worse. He does not believe he has had fever. He was getting peritoneal dialysis but was recently transitioned to hemodialysis. He does still have a peritoneal dialysis catheter in. 01/21: No major events overnight. Patient seen and examined during hemodialysis. Will attempt clears today and see how he does. 01/22: No major events overnight. Patient having some flatus but no bowel movements. Tolerating clears with some belly pain but pain is tolerable. 01/23: Afebrile, no OE. Flatus without BM, 01/24: Afebrile, no OE, Still no BM, passing flatus, tolerating diet well. 01/25: Afebrile. Still no bowel movement but passing flatus. No vomiting since 01/20/2021. Tolerating liquids well. Suppository given. Discussed with surgery plan for small bowel follow-through study if suppository is ineffective. 01/26: Had small bowel movement overnight. Per surgery still pretty distended and tender. 01/27: No further BM. Still requiring regular pain medication still very distended and tender. Afebrile. Passing flatus. No vomiting. Some nausea. Going to small bowel follow-through study today. Still with pain. Afebrile. To HD today. Vitals/I&O Vitals/I&O: Vital Signs Date Time Temp Pulse Resp B/P (MAP) Pulse Ox O2 Delivery O2 Flow Rate FiO2 01/28/21 06:54 16 Room Air 01/28/21 03:22 98.1 80 124/70 (88) 99 98.1 I & O 01/27/21 01/27/21 01/28/21 15:00 23:00 07:00 Intake Total 540 ml 1220 ml 180 ml Balance 540 ml 1220 ml 180 ml Physical Exam General: Alert, Oriented X3, Cooperative, mild distress Heart: Regular rate Lungs: Clear Abdomen: Normal bowel sounds, Soft, Other (Mildly distended) Extremities: No cyanosis, No edema Skin: No rashes, No breakdown Assessment and Plan Assessmemt and Plan Problems Medical Problems: (1) Cystitis Status: Acute (2) ESRD (end stage renal disease) Status: Acute (3) Small bowel obstruction Status: Acute Comment Review of Relevant I have reviewed the following items allyson (where applicable) has been applied. Justifications for Admission Other Justification SBO LISA DIOP MD Jan 28, 2021 07:28
[2021-01-28 07:41] VITALS: BP 118/61
[2021-01-28] MEDS ORDERED: BARIUM SULFATE 60% 355 ML SUSP PO ONE (07:45)
[2021-01-28] MEDS: AMINO AC 3%/ELECTROLYTE/GLYCER 1,000 ML IV SCH ×2 (08:00→19:33)
[2021-01-28] MEDS ORDERED: DIALYSIS PATIENT. MC PRN (08:00)
[2021-01-28] MEDS ORDERED: IV NORMAL SALINE 1000ML BAG 1,000 ML IV PRN ×2 (08:00)
[2021-01-28] MEDS ORDERED: CONTRAST GIVEN. MC PRN (08:30)
[2021-01-28] MEDS ORDERED: IOHEXOL 300 MG/ML 100ML VIAL. PO ONE (08:30)
--- NOTE | 2021-01-28 08:44 | PDOC ---
SURGICAL PROGRESS NOTE DATE: 01/28/21 TIME: 08:44 Subjective down for SBFT will follow up on results Vital Signs Vital Signs Date Time Temp Pulse Resp B/P (MAP) Pulse Ox O2 Delivery O2 Flow Rate FiO2 01/28/21 07:41 97.7 95 18 118/61 (80) 95 Room Air 97.7 I&O Intake and Output 01/28/21 07:00 Intake Total 1940 ml Balance 1940 ml Intake Oral 940 ml IV Total 1000 ml Labs Laboratory Tests Test 01/26/21 09:30 Sodium Level 130 mmol/L (136-145) Potassium Level 5.7 mmol/L (3.5-5.1) Chloride Level 97 mmol/L (98-107) Carbon Dioxide Level 23 mmol/L (21-32) Anion Gap 10 (6-14) Blood Urea Nitrogen 50 mg/dL (8-26) Creatinine 7.4 mg/dL (0.7-1.3) Estimated GFR (Cockcroft-Gault) 7.7 Glucose Level 83 mg/dL (70-99) Calcium Level 8.5 mg/dL (8.5-10.1) Phosphorus Level 6.8 mg/dL (2.6-4.7) Albumin 2.2 g/dL (3.4-5.0) Problem List Problems Medical Problems: (1) Cystitis Status: Acute (2) ESRD (end stage renal disease) Status: Acute (3) Small bowel obstruction Status: Acute Justicifation of Admission Dx: Justifications for Admission: Justification of Admission Dx: N/A JASPREET VERDIN APRN Jan 28, 2021 08:44
[2021-01-28] MEDS: HEPARIN for SUB-Q USE 5,000 UNIT/ML VIAL. SQ SCH ×2 (09:00→20:32)
[2021-01-28] MEDS: POLYETHYLENE GLYCOL 3350 17 GM PACKET. PO SCH (09:00)
--- NOTE | 2021-01-28 10:29 | PDOC ---
DATE OF SERVICE DATE: 01/28/21 TIME: 10:29 SUBJECTIVE ROS Denies N/V , still c/o abdominal pain Barium bowel series today OBJECTIVE Vital Signs Vital Signs Date Time Temp Pulse Resp B/P (MAP) Pulse Ox O2 Delivery O2 Flow Rate FiO2 01/28/21 07:41 97.7 95 18 118/61 (80) 95 Room Air 97.7 I & 0 Intake and Output 01/28/21 07:00 Intake Total 1940 ml Balance 1940 ml Intake Oral 940 ml IV Total 1000 ml PHYSICAL EXAM Physical Exam GEN: In no distress HEEN OM moist , facial swelling - chronic for past few months ,, better NECK: Supple CVS: S1S2, soft Murmur, RESP: no Rales, no Rhonchi,no Acc. Muscle Use GI: BS hypoactive, NO Bruit, Non Tender, PD catheter in place , Distended : no CVA tenderness, no Suprapubic Tenderness, Has Suprapubic Catheter DIAGNOSIS/ASSESSMENT Assessment & Plan ESRD - on HD TTS at [facility], switched from PD , Dialysis today, discussed treatment plan with Jesse Scheduled for PD cath removal with Dr. Navarrete on February 04 per patient Acute ABD pain due to partial small bowel obstruction with transition point within the ventral peritoneal cavity; Small bowel series today - GS following Abdomen distended - Not on PD any more ? Ascites vs PD fluid , recommend draining Hyperkalemia- Mild, chronic, HD today Anemia No Indication for CLIFF , Monitor Hyper Phos- much improved since switiching to HD . On Phos binders Hx of Urinary retention with Suprapubic catheter for 2+ years COMMENT/RELEVANT DATA Meds Current Medications Medications (Trade) Dose Ordered Sig/Kevin Start Time Stop Time Status Last Admin Dose Admin Acetaminophen (Tylenol) 500 mg 1X PRN PRN 01/23/21 07:30 01/24/21 07:29 DC Acetaminophen/ Hydrocodone Bitart (Lortab 5/325) 2 tab PRN Q4HRS PRN 01/18/21 18:30 01/28/21 06:34 2 TAB Albumin Human 200 ml @ 200 mls/hr 1X PRN PRN 01/26/21 09:00 01/26/21 14:59 DC Amino Acids/ Glycerin/ Electrolytes 1,000 ml @ 80 mls/hr [id number] 01/20/21 12:30 01/27/21 19:07 80 MLS/HR Barium Sulfate (Liquid E-Z Paque) 710 ml 1X ONCE 01/28/21 07:45 01/28/21 07:55 DC Benzocaine (Hurricaine One) 1 spray 1X ONCE 01/18/21 18:00 01/18/21 18:01 DC 01/18/21 18:00 1 SPRAY Bisacodyl (Dulcolax Supp) 10 mg 1X ONCE 01/25/21 11:00 01/25/21 11:01 DC 01/25/21 11:46 10 MG Dextrose (Dextrose 50%-Water Syringe) 12.5 gm PRN Q15MIN PRN 01/18/21 18:30 Diphenhydramine HCl (Benadryl) 25 mg 1X PRN PRN 01/23/21 07:30 01/24/21 07:29 DC Docusate Sodium (Colace) 100 mg PRN DAILY PRN 01/18/21 18:30 01/26/21 15:28 100 MG Furosemide (Lasix) 40 mg PRN 1X PRN 01/19/21 06:30 01/21/21 12:05 DC Heparin Sodium (Porcine) (Heparin Sodium) 5,000 unit Q12HR 01/18/21 21:00 01/27/21 20:31 5,000 UNIT Hydromorphone HCl (Dilaudid) 0.2 mg PRN Q2HR PRN 01/18/21 21:15 01/24/21 12:53 0.2 MG Info (CONTRAST GIVEN -- Rx MONITORING) 1 each PRN DAILY PRN 01/28/21 08:30 01/30/21 08:29 Info (PHARMACY MONITORING -- do not chart) 1 each PRN DAILY PRN 01/28/21 08:00 Iohexol (Omnipaque 240 Mg/ml) 30 ml 1X ONCE 01/18/21 14:45 01/18/21 14:46 DC 01/18/21 14:48 30 ML Iohexol (Omnipaque 300 Mg/ml) 400 ml 1X ONCE 01/28/21 08:30 01/28/21 08:31 DC 01/28/21 08:30 400 ML Lidocaine HCl (Xylocaine-Mpf 1% 2ml Vial) 2 ml 1X PRN PRN 01/26/21 09:00 01/27/21 08:59 DC Morphine Sulfate (Morphine Sulfate) 2 mg PRN Q2HR PRN 01/18/21 18:30 01/19/21 04:03 DC 01/18/21 19:34 2 MG Ondansetron HCl (Zofran) 4 mg PRN Q6HRS PRN 01/18/21 18:30 01/20/21 11:05 4 MG Piperacillin Sod/ Tazobactam Sod 3.375 gm/Sodium Chloride 50 ml @ 100 mls/hr 1X ONCE 01/18/21 16:45 01/18/21 17:14 DC 01/18/21 16:45 100 MLS/HR Polyethylene Glycol (miraLAX PACKET) 17 gm DAILY 01/24/21 09:00 01/27/21 08:35 17 GM Saliva Substitute (Biotene Moisturizing Mouth) 2 spray PRN Q15MIN PRN 01/20/21 12:30 01/20/21 13:29 2 SPRAY Sennosides (Senna) 17.2 mg PRN BID PRN 01/18/21 18:30 Sodium Chloride 1,000 ml @ 400 mls/hr Q2H30M PRN 01/28/21 08:00 01/28/21 19:59 Results All relevant outside records, renal labs, imaging studies, telemetry/EKG's were reviewed. Justicifation of Admission Dx: Justifications for Admission: Justification of Admission Dx: N/A MARIYA NORMAN MD Jan 28, 2021 10:29
--- NOTE | 2021-01-28 11:52 | NUR ---
SW following. Discussed with RN, pt from home, had repeat abdominal series this morning to check progress of obstruction. RN advised no SW needs at this time. SW will continue to follow.
--- NOTE | 2021-01-28 12:29 | RAD ---
SMALL BOWEL SERIES 01/28/2021. Reason for study: Small bowel obstruction. Comparison studies: CT abdomen/pelvis 01/10/2021. Technique: Preliminary printing shop supervisor film of the abdomen was obtained. Then following ingestion of oral bariu m, serial images of the abdomen were obtained to assess progress of contrast throughout the small bow el. Findings: Peritoneal dialysis catheter is present. Coil mass identified along the right paraspinal sp jose elias at T12-L1. Previously seen dilated small bowel loops persist in the central abdomen measuring up to 3.1 cm. There is resolution of small bowel dilatation as contrast opacifies the mid to distal smal l bowel. Transit time through the small bowel is normal. No evidence for bowel obstruction. Jejunal a nd ileal fold patterns are normal with no evidence for inflammatory bowel disease. The terminal ileum was unremarkable. In the region of previously seen transition point in the left lower ventral abdome n, there are a few small bowel loops which are matted together. No definite intraluminal filling defe ct. Number of images: 10 Fluoroscopy time: 0 min IMPRESSION: No findings to suggest complete small bowel obstruction. Electronically signed by: Rosalee Basilio MD (01/28/2021 12:26 PM) [id number]
[2021-01-28] MEDS: HYDROmorphone 2 MG/ML INJ. IVP PRN (13:25)
[2021-01-28] MEDS ORDERED: HYDROmorphone 2 MG/ML INJ. IVP PRN (14:00)
[2021-01-28] MEDS: LIDOCAINE (700MG/PATCH) PATCH. TD SCH (14:11)
[2021-01-28 15:59] VITALS: BP 111/62
[2021-01-28 19:00] VITALS: BP 114/57
[2021-01-28] MEDS ORDERED: PATCH REMOVAL. MC SCH (21:00)
[2021-01-28 22:59] VITALS: BP 107/64
[2021-01-29 03:00] VITALS: BP 111/61
[2021-01-29] MEDS: HYDROcodone/APAP 5/325MG 1 TAB TABLET PO PRN (06:23)
[2021-01-29 06:57] LABS: CALCIUM 8.4 mg/dL (8.5-10.1); CREATININE 7.1 mg/dL (0.7-1.3); GFR 8.1; POTASSIUM 5.4 mmol/L (3.5-5.1)
[2021-01-29 07:00] VITALS: BP 111/53
[2021-01-29] MEDS: AMINO AC 3%/ELECTROLYTE/GLYCER 1,000 ML IV SCH (09:00)
[2021-01-29] MEDS: POLYETHYLENE GLYCOL 3350 17 GM PACKET. PO SCH (09:00)
--- NOTE | 2021-01-29 09:30 | PDOC ---
[employer] PROGRESS NOTE Date of Service DOS: DATE: 01/29/21 TIME: 09:29 Chief Complaint Chief Complaint A/P: Acute ABD pain due to partial small bowel obstruction with transition point within the ventral peritoneal cavity. Moderate peritoneal fluid consistent with peritoneal dialysis mild Hyperkalemia Mild Transaminitis moderate protien malnutrition Anemia of ESRD General surgery consult following for his small bowel obstruction. Nephrology consulted for ESRD on dialysis History of Present Illness History of Present Illness Mr Dowling is a 55yo M w/ PMHx CHF, COPD, HTN, ESRD on PD recently transitioned to HD who presents to the emergency room complaining of mid abdominal pain that started in the morning on 01/18/2021 after he had 2 bowel movements. Patient stated that he did had some diarrhea that was loose as well. Denies any bloody bowel movements or hematemesis. He has had a single episode of vomiting right before arrival in the emergency room. He states he is never had pain like this previously. He states is a sharp aching pain and constant in nature. Does not seem to get better or worse. He does not believe he has had fever. He was getting peritoneal dialysis but was recently transitioned to hemodialysis. He does still have a peritoneal dialysis catheter in. 01/21: No major events overnight. Patient seen and examined during hemodialysis. Will attempt clears today and see how he does. 01/22: No major events overnight. Patient having some flatus but no bowel movements. Tolerating clears with some belly pain but pain is tolerable. 01/23: Afebrile, no OE. Flatus without BM, 01/24: Afebrile, no OE, Still no BM, passing flatus, tolerating diet well. 01/25: Afebrile. Still no bowel movement but passing flatus. No vomiting since 01/20/2021. Tolerating liquids well. Suppository given. Discussed with surgery plan for small bowel follow-through study if suppository is ineffective. 01/26: Had small bowel movement overnight. Per surgery still pretty distended and tender. 01/27: No further BM. Still requiring regular pain medication still very distended and tender. Afebrile. Passing flatus. No vomiting. Some nausea. 01/28: Going to small bowel follow-through study today, no obstruction. Still with pain. Afebrile. To HD today with intractable back pain, unable to finish HD Still with intractable back pain. Nursing made note he has not had peritoneal fluid drained and drained 6 L of fluid off of his abdomen with significant relief in all of his symptoms today. Vitals/I&O Vitals/I&O: Vital Signs Date Time Temp Pulse Resp B/P (MAP) Pulse Ox O2 Delivery O2 Flow Rate FiO2 01/29/21 07:00 98.3 83 18 111/53 (72) 97 Room Air 98.3 01/29/21 03:00 2.0 I & O 01/28/21 01/28/21 01/29/21 15:00 23:00 07:00 Intake Total 0 ml 1000 ml 240 ml Balance 0 ml 1000 ml 240 ml Physical Exam General: Alert, Oriented X3, Cooperative, mild distress Heart: Regular rate Lungs: Clear Abdomen: Normal bowel sounds, Soft, Other (Mildly distended) Extremities: No cyanosis, No edema Skin: No rashes, No breakdown Labs Labs: Laboratory Tests Test 01/29/21 06:00 Sodium Level 131 mmol/L (136-145) Potassium Level 5.4 mmol/L (3.5-5.1) Chloride Level 95 mmol/L (98-107) Carbon Dioxide Level 29 mmol/L (21-32) Anion Gap 7 (6-14) Blood Urea Nitrogen 41 mg/dL (8-26) Creatinine 7.1 mg/dL (0.7-1.3) Estimated GFR (Cockcroft-Gault) 8.1 Glucose Level 89 mg/dL (70-99) Calcium Level 8.4 mg/dL (8.5-10.1) Assessment and Plan Assessmemt and Plan Problems Medical Problems: (1) Cystitis Status: Acute (2) ESRD (end stage renal disease) Status: Acute (3) Small bowel obstruction Status: Acute Comment Review of Relevant I have reviewed the following items allyson (where applicable) has been applied. Medications: Current Medications Medications (Trade) Dose Ordered Sig/Kevin Route PRN Reason Start Time Stop Time Status Last Admin Dose Admin Hydromorphone HCl (Dilaudid) 1 mg PRN Q3HRS PRN IVP MODERATE TO SEVERE PAIN 01/28/21 14:00 01/28/21 14:11 Lidocaine (Lidoderm) 1 patch DAILY TD 01/28/21 14:00 01/28/21 14:11 Miscellaneous (Lidoderm Patch Removal) 1 ea [facility] 01/28/21 21:00 01/28/21 20:25 Justifications for Admission Other Justification SBO LISA DIOP MD Jan 29, 2021 09:30
[2021-01-29] MEDS: LIDOCAINE (700MG/PATCH) PATCH. TD SCH (09:45)
[2021-01-29] MEDS: HEPARIN for SUB-Q USE 5,000 UNIT/ML VIAL. SQ SCH (09:54)
[2021-01-29] MEDS ORDERED: HYDR-2761 PO (10:27)
--- NOTE | 2021-01-29 10:30 | PDOC3 ---
Discharge Summary Visit Information Date of Admission: Feb 17, 2011 Date of Discharge: Jan 29, 2021 Admitting Diagnosis: SBO Final Diagnosis Problems Medical Problems: (1) Cystitis Status: Acute (2) ESRD (end stage renal disease) Status: Acute (3) Small bowel obstruction Status: Acute Brief Hospital Course Allergies Allergies Coded Allergies Type Severity Reaction Last Updated Verified No Known Drug Allergies 02/03/20 No Vital Signs Vital Signs Date Time Temp Pulse Resp B/P (MAP) Pulse Ox O2 Delivery O2 Flow Rate FiO2 01/29/21 07:00 98.3 83 18 111/53 (72) 97 Room Air 98.3 01/29/21 03:00 2.0 Lab Results Laboratory Tests Test 01/29/21 06:00 Sodium Level 131 mmol/L (136-145) Potassium Level 5.4 mmol/L (3.5-5.1) Chloride Level 95 mmol/L (98-107) Carbon Dioxide Level 29 mmol/L (21-32) Anion Gap 7 (6-14) Blood Urea Nitrogen 41 mg/dL (8-26) Creatinine 7.1 mg/dL (0.7-1.3) Estimated GFR (Cockcroft-Gault) 8.1 Glucose Level 89 mg/dL (70-99) Calcium Level 8.4 mg/dL (8.5-10.1) Laboratory Tests Test 01/29/21 06:00 Sodium Level 131 mmol/L (136-145) Potassium Level 5.4 mmol/L (3.5-5.1) Chloride Level 95 mmol/L (98-107) Carbon Dioxide Level 29 mmol/L (21-32) Anion Gap 7 (6-14) Blood Urea Nitrogen 41 mg/dL (8-26) Creatinine 7.1 mg/dL (0.7-1.3) Estimated GFR (Cockcroft-Gault) 8.1 Glucose Level 89 mg/dL (70-99) Calcium Level 8.4 mg/dL (8.5-10.1) Brief Hospital Course Mr Dowling is a 55yo M w/ PMHx CHF, COPD, HTN, ESRD on PD recently transitioned to HD who presents to the emergency room complaining of mid abdominal pain that started in the morning on 01/18/2021 after he had 2 bowel movements. Patient stated that he did had some diarrhea that was loose as well. Denies any bloody bowel movements or hematemesis. He has had a single episode of vomiting right before arrival in the emergency room. He states he is never had pain like this previously. He states is a sharp aching pain and constant in nature. Does not seem to get better or worse. He does not believe he has had fever. He was getting peritoneal dialysis but was recently transitioned to hemodialysis. He does still have a peritoneal dialysis catheter in. 01/21: No major events overnight. Patient seen and examined during hemodialysis. Will attempt clears today and see how he does. 01/22: No major events overnight. Patient having some flatus but no bowel movements. Tolerating clears with some belly pain but pain is tolerable. 01/23: Afebrile, no OE. Flatus without BM, 01/24: Afebrile, no OE, Still no BM, passing flatus, tolerating diet well. 01/25: Afebrile. Still no bowel movement but passing flatus. No vomiting since 01/20/2021. Tolerating liquids well. Suppository given. Discussed with surgery plan for small bowel follow-through study if suppository is ineffective. 01/26: Had small bowel movement overnight. Per surgery still pretty distended and tender. 01/27: No further BM. Still requiring regular pain medication still very distended and tender. Afebrile. Passing flatus. No vomiting. Some nausea. 01/28: Going to small bowel follow-through study today, no obstruction. Still with pain. Afebrile. To HD today with intractable back pain, unable to finish HD Still with intractable back pain. Nursing made note he has not had peritoneal fluid drained and drained 6 L of fluid off of his abdomen with significant relief in all of his symptoms today. Consults: General surgery consult following for his small bowel obstruction. Nephrology consulted for ESRD on dialysis Problem list: Acute ABD pain due to partial small bowel obstruction with transition point within the ventral peritoneal cavity. Moderate peritoneal fluid consistent with peritoneal dialysis mild Hyperkalemia Mild Transaminitis moderate protien malnutrition Anemia of ESRD Greater than 30 minutes spent on d/c Discharge Information Condition at Discharge: Improved Follow Up: Weeks (1) Disposition/Orders: D/C to Home Scheduled Calcitriol (Calcitriol) 0.25 Mcg Capsule, 1 CAP PO DAILY for supplement, (Reported) Entered as Reported by: JIMBO GARCIA on 01/18/212000 Last Action: New Order on 01/18/212000 by JIMBO GARCIA Cinacalcet HCl (Cinacalcet HCl) 30 Mg Tablet, 30 MG PO QMWF for parathyroid, (Reported) Entered as Reported by: JIMBO GARCIA on 01/18/212000 Last Action: New Order on 01/18/212000 by JIMBO GARCIA Ferric Citrate (Ferric Citrate) 210 Mg Tablet, 2 TAB PO TID for supplement, (Reported) Entered as Reported by: JIMBO GARCIA on 01/18/212000 Last Action: New Order on 01/18/212000 by JIMBO GARCIA Furosemide (Furosemide) 40 Mg Tablet, 1 TAB PO DAILY for chf, (Reported) Entered as Reported by: JIMBO GARCIA on 01/18/212000 Last Action: New Order on 01/18/212000 by JIMBO GARCIA Iron Polysaccharides Complex (Poly-Iron) 150 Mg Capsule, 150 MG PO BID66 for supplement for 30 Days, #60 Prescribed by: ORQUIDEA GAMINO MD on 08/25/18 1144 Last Action: Reviewed on 01/18/212000 by JIMBO GARCIA Metoprolol Succinate (Kapspargo Sprinkle) 50 Mg Cap.spr.24, 50 MG PO DAILY for htn, (Reported) Entered as Reported by: JIMBO GARCIA on 01/18/212000 Last Action: New Order on 01/18/212000 by JIMBO GARCIA Sevelamer Hcl (Renagel) 800 Mg Tablet, 2 TAB PO TIDWMEALS for binder, (Reported) Entered as Reported by: JIMBO GARCIA on 01/18/212000 Last Action: New Order on 01/18/212000 by JIMBO GARCIA Trazodone Hcl (Trazodone Hcl) 50 Mg Tablet, 1 TAB PO QHS for sleep, (Reported) Entered as Reported by: JIMBO GARCIA on 01/18/212000 Last Action: New Order on 01/18/212000 by JIMBO GARCIA Scheduled PRN Docusate Sodium (Stool Softener) 100 Mg Capsule, 100 MG PO PRN BID PRN for CONSTIPATION, (Reported) Entered as Reported by: ELISHA SU RN on 12/19/18 0857 Last Action: Edited on 01/18/212000 by JIMBO GARCIA Hydrocodone Bit/Acetaminophen (Hydrocodone-Apap 5-325 ) 1 Tab Tablet, 1 TAB PO PRN Q6HRS PRN for PAIN for 6 Days, #20 Prescribed by: LISA DIOP MD on 01/29/21 1028 Justicifation of Admission Dx: Justifications for Admission: Justification of Admission Dx: N/A ILSA DIOP MD Jan 29, 2021 10:30
--- NOTE | 2021-01-29 10:32 | NUR ---
SW following. Discussed with RN, pt had fluid drained from PD cath and is feeling much better - 6L drained. Pt now on a renal diet. RN advised no SW needs at this time. SW will continue to follow.
[2021-01-29 11:00] VITALS: BP 100/52
--- NOTE | 2021-01-29 11:22 | PDOC ---
DATE OF SERVICE DATE: 01/29/21 TIME: 11:04 SUBJECTIVE ROS Didnt complete Hd yesterday 2/2 Abdominal pain and back spasms Abdominal fluid 6 L drained on 01/28 , relief in his symptoms today OBJECTIVE Vital Signs Vital Signs Date Time Temp Pulse Resp B/P (MAP) Pulse Ox O2 Delivery O2 Flow Rate FiO2 01/29/21 07:00 98.3 83 18 111/53 (72) 97 Room Air 98.3 01/29/21 03:00 2.0 I & 0 Intake and Output 01/29/21 07:00 Intake Total 1240 ml Balance 1240 ml Intake Oral 240 ml IV Total 1000 ml # Voids 1 PHYSICAL EXAM Physical Exam GEN: In no distress HEEN OM moist , facial swelling - chronic for past few months ,, better NECK: Supple CVS: S1S2, soft Murmur, RESP: no Rales, no Rhonchi,no Acc. Muscle Use GI: BS hypoactive, NO Bruit, Non Tender, PD catheter in place : no CVA tenderness, no Suprapubic Tenderness, Has Suprapubic Catheter DIAGNOSIS/ASSESSMENT Assessment & Plan ESRD - on HD TTS at [facility], switched from PD , Scheduled for HD tomorrow at his OP unit Scheduled for PD cath removal with Dr. Navarrete on February 04 per patient Acute ABD pain due to partial small bowel obstruction with transition point within the ventral peritoneal cavity; Small bowel series today - GS following Abdomen distended - Not on PD any more Abdominal fluid 6 lts drained 01/28- patient reports did not had any OD fluid in the abdomen since switched to HD - have been weeks . needs Monitoring for new Onset Ascites . Discussed with Dialysis charge nurse at [facility] Hyperkalemia- Mild, chronic Anemia No Indication for CLIFF , Monitor Hyper Phos- much improved since switiching to HD . On Phos binders Hx of Urinary retention with Suprapubic catheter for 2+ years SMALL BOWEL SERIES 01/28/2021. Reason for study: Small bowel obstruction. Comparison studies: CT abdomen/pelvis 01/10/2021. Technique: Preliminary lip reading teacher film of the abdomen was obtained. Then following ingestion of oral barium, serial images of the abdomen were obtained to assess progress of contrast throughout the small bowel. Findings: Peritoneal dialysis catheter is present. Coil mass identified along the right paraspinal space at T12-L1. Previously seen dilated small bowel loops persist in the central abdomen measuring up to 3.1 cm. There is resolution of small bowel dilatation as contrast opacifies the mid to distal small bowel. Transit time through the small bowel is normal. No evidence for bowel obstruction. Jejunal and ileal fold patterns are normal with no evidence for inflammatory bowel disease. The terminal ileum was unremarkable. In the region of previously seen transition point in the left lower ventral abdomen, there are a few small bowel loops which are matted together. No definite intraluminal filling defect. Number of images: 10 Fluoroscopy time: 0 min IMPRESSION: No findings to suggest complete small bowel obstruction. COMMENT/RELEVANT DATA Meds Current Medications Medications (Trade) Dose Ordered Sig/Kevin Start Time Stop Time Status Last Admin Dose Admin Acetaminophen (Tylenol) 500 mg 1X PRN PRN 01/23/21 07:30 01/24/21 07:29 DC Acetaminophen/ Hydrocodone Bitart (Lortab 5/325) 2 tab PRN Q4HRS PRN 01/18/21 18:30 01/29/21 06:23 2 TAB Albumin Human 200 ml @ 200 mls/hr 1X PRN PRN 01/26/21 09:00 01/26/21 14:59 DC Amino Acids/ Glycerin/ Electrolytes 1,000 ml @ 80 mls/hr [id number] 01/20/21 12:30 01/28/21 19:33 80 MLS/HR Barium Sulfate (Liquid E-Z Paque) 710 ml 1X ONCE 01/28/21 07:45 01/28/21 07:55 DC 01/28/21 07:45 710 ML Benzocaine (Hurricaine One) 1 spray 1X ONCE 01/18/21 18:00 01/18/21 18:01 DC 01/18/21 18:00 1 SPRAY Bisacodyl (Dulcolax Supp) 10 mg 1X ONCE 01/25/21 11:00 01/25/21 11:01 DC 01/25/21 11:46 10 MG Dextrose (Dextrose 50%-Water Syringe) 12.5 gm PRN Q15MIN PRN 01/18/21 18:30 Diphenhydramine HCl (Benadryl) 25 mg 1X PRN PRN 01/23/21 07:30 01/24/21 07:29 DC Docusate Sodium (Colace) 100 mg PRN DAILY PRN 01/18/21 18:30 01/26/21 15:28 100 MG Furosemide (Lasix) 40 mg PRN 1X PRN 01/19/21 06:30 01/21/21 12:05 DC Heparin Sodium (Porcine) (Heparin Sodium) 5,000 unit Q12HR 01/18/21 21:00 01/29/21 09:54 5,000 UNIT Hydromorphone HCl (Dilaudid) 1 mg PRN Q3HRS PRN 01/28/21 14:00 01/28/21 14:11 1 MG Info (CONTRAST GIVEN -- Rx MONITORING) 1 each PRN DAILY PRN 01/28/21 08:30 01/30/21 08:29 Info (PHARMACY MONITORING -- do not chart) 1 each PRN DAILY PRN 01/28/21 08:00 Iohexol (Omnipaque 240 Mg/ml) 30 ml 1X ONCE 01/18/21 14:45 01/18/21 14:46 DC 01/18/21 14:48 30 ML Iohexol (Omnipaque 300 Mg/ml) 400 ml 1X ONCE 01/28/21 08:30 01/28/21 08:31 DC 01/28/21 08:30 400 ML Lidocaine (Lidoderm) 1 patch DAILY 01/28/21 14:00 01/29/21 09:45 1 PATCH Lidocaine HCl (Xylocaine-Mpf 1% 2ml Vial) 2 ml 1X PRN PRN 01/26/21 09:00 01/27/21 08:59 DC Miscellaneous (Lidoderm Patch Removal) 1 ea QHS 01/28/21 21:00 01/28/21 20:25 1 EA Morphine Sulfate (Morphine Sulfate) 2 mg PRN Q2HR PRN 01/18/21 18:30 01/19/21 04:03 DC 01/18/21 19:34 2 MG Ondansetron HCl (Zofran) 4 mg PRN Q6HRS PRN 01/18/21 18:30 01/20/21 11:05 4 MG Piperacillin Sod/ Tazobactam Sod 3.375 gm/Sodium Chloride 50 ml @ 100 mls/hr 1X ONCE 01/18/21 16:45 01/18/21 17:14 DC 01/18/21 16:45 100 MLS/HR Polyethylene Glycol (miraLAX PACKET) 17 gm DAILY 01/24/21 09:00 01/27/21 08:35 17 GM Saliva Substitute (Biotene Moisturizing Mouth) 2 spray PRN Q15MIN PRN 01/20/21 12:30 01/20/21 13:29 2 SPRAY Sennosides (Senna) 17.2 mg PRN BID PRN 01/18/21 18:30 Sodium Chloride 1,000 ml @ 400 mls/hr Q2H30M PRN 01/28/21 08:00 01/28/21 19:59 DC Lab Laboratory Tests Test 01/29/21 06:00 Sodium Level 131 mmol/L (136-145) Potassium Level 5.4 mmol/L (3.5-5.1) Chloride Level 95 mmol/L (98-107) Carbon Dioxide Level 29 mmol/L (21-32) Anion Gap 7 (6-14) Blood Urea Nitrogen 41 mg/dL (8-26) Creatinine 7.1 mg/dL (0.7-1.3) Estimated GFR (Cockcroft-Gault) 8.1 Glucose Level 89 mg/dL (70-99) Calcium Level 8.4 mg/dL (8.5-10.1) Results All relevant outside records, renal labs, imaging studies, telemetry/EKG's were reviewed. Justicifation of Admission Dx: Justifications for Admission: Justification of Admission Dx: N/A MARIYA NORMAN MD Jan 29, 2021 11:22
[2021-01-29] MEDS ORDERED: DIALYSIS PATIENT. MC PRN (11:30)
[2021-01-29] MEDS ORDERED: IV NORMAL SALINE 1000ML BAG 1,000 ML IV PRN ×2 (11:30)
--- NOTE | 2021-01-29 13:48 | NUR ---
patient discharged home with family. meds and follow up reviewed. IV removed, cath intact. pt stable upon dc.
[2021-02-16] MEDS ORDERED: FERR210T PO (14:19)
== END 2021-01-29 12:00 | disposition home or self-care (01) | DRG 871 ==
LOC: ER 12:43 → 5 NORTH 17:46 → 6 SOUTH 01-22 14:20
PROVIDERS: ADMIT Internal Medicine; ATTEND Internal Medicine
PROC: 5A1D70Z Performance of Urinary Filtration, Intermittent, Less than 6 Hours Per Day (ICD-10-PCS; principal; 2021-01-29)
DX: A41.9 Sepsis, unspecified organism (principal); N18.6 End stage renal disease; K56.600 Partial intestinal obstruction, unspecified as to cause; E44.0 Moderate protein-calorie malnutrition; I13.2 Hypertensive heart and chronic kidney disease with heart failure and with stage 5 chronic kidney disease, or end stage renal disease; K56.7 Ileus, unspecified; R18.8 Other ascites; R74.01 Elevation of levels of liver transaminase levels; D64.9 Anemia, unspecified; D63.1 Anemia in chronic kidney disease; E87.5 Hyperkalemia; I50.9 Heart failure, unspecified; J44.9 Chronic obstructive pulmonary disease, unspecified; N30.90 Cystitis, unspecified without hematuria; Z82.49 Family history of ischemic heart disease and other diseases of the circulatory system; Z68.24 Body mass index [BMI] 24.0-24.9, adult; Z87.891 Personal history of nicotine dependence; Z99.2 Dependence on renal dialysis; Z87.01 Personal history of pneumonia (recurrent)
CPT/HCPCS: 36415; 74022; 74177; 74250; 80048; 80053; 80069; 81001; 82945; 83615; 83735; 84100; 84157; 85007; 85025; 86317; 87340; 89050; 96365; 96375; 96376; J1170; J1644; J2270; J2405; J2543; J3490; Q9966; Q9967; 99285-25; G0378

== ENCOUNTER 2021-02-17 07:25 | Day surgery (SDC) | payer MEDICAID ==
[~2021-02-17] VITALS: Ht 172.7 cm; Wt 68.5 kg
[~2021-02-17 07:25] MED LIST changes: +CALC0.25 PO; +CINA30TA6 PO; +FERR210T PO; +FURO40TA4 PO; +HYDR-2761 PO; +HYDROmorphone 2 MG/ML VIAL IVP PRN; +IV NORMAL SALINE 1000ML BAG 1,000 ML IV SCH; +METO50CA PO; +MORPHINE SULFATE 2 MG/ML INJ. IVP PRN; +PROCHLORPERAZINE 10 MG/2 ML VIAL. IVP PRN; +SEVE800T8 PO; +TRAZ-118 PO; +ceFAZolin SODIUM IV Push 1 GM VIAL. IVP PRN; +fentaNYL PF VIAL 100 MCG/2 ML VIAL IVP PRN
[2021-02-17] MEDS ORDERED: ONDANSETRON PF 4 MG/2 ML VIAL. ONE (07:56)
[2021-02-17] MEDS ORDERED: PROPOFOL 10 MG/ML (20ML) VIAL. IV ONE (07:56)
[2021-02-17] MEDS ORDERED: LIDOCAINE 2% PF 5 ML VIAL. ONE (07:56)
[2021-02-17] MEDS ORDERED: DEXAMETHASONE SOD PHOS 4 MG/ML VIAL ONE (07:56)
[2021-02-17 08:21] VITALS: BP 124/60
[2021-02-17] MEDS ORDERED: IV NORMAL SALINE 1000ML BAG 1,000 ML IV SCH (08:30)
[2021-02-17] MEDS ORDERED: BUPIVACAINE-EPI 0.5% 30 ML VIAL KIT. ONE (08:50)
[2021-02-17] MEDS ORDERED: fentaNYL PF VIAL 100 MCG/2 ML VIAL ONE ×2 (09:46→10:19)
[2021-02-17] MEDS ORDERED: SEVOFLURANE 31 TO 60 MINUTES. IH ONE (09:57)
--- NOTE | 2021-02-17 10:14 | PDOC4 ---
Operative Note Operative Note Operative Note: Preoperative Diagnosis: Renal failure Postoperative Diagnosis: Same Procedure: Removal of peritoneal dialysis catheter Surgeon: Landon Anesthesia: General EBL: 10 mL Specimen: Catheter to pathology Drains: None Complications: None Indication: The patient is a 55-year-old male who has a history of renal failure. He had a peritoneal dialysis catheter placed previously however has needed to convert to full-time hemodialysis. He was referred back for removal of the catheter. The risks of surgery were discussed which include bleeding, in fection, pain, anesthetic risk, potential need for additional surgery procedure. He understands and would like to proceed. Description: The patient was taken to the operating room and placed supine on the operating table. General anesthesia was performed. The abdomen was prepped with ChloraPrep and draped in a standard surgical manner. A small incision was made at the site of his prior scar to the left of the umbilicus. Cautery dissection was carried down to the level of the fascia. The distal cuff was identified in the muscle layer. This was mobilized from the surrounding tissue. The coiled portion of the catheter was then readily retrieved. This was cut and sent to pathology for gross examination. The proximal cuff was then dissected free from the subcutaneous tissues. The remainder of the catheter was readily extracted and discarded. Hemostasis was achieved with cautery. The fascial defect was closed with 0 Vicryl in a [id number] manner. The subcutaneous tissue was closed with 3-0 Vicryl. The skin was closed with 4-0 Monocryl and infiltrated with half percent Marcaine with epinephrine. A sterile dressing was then applied. The patient tolerated the procedure well and was sent to the recovery room in stable condition. At the end of the case all counts were correct. FELICE MONTGOMERY MD Feb 17, 2021 10:14
--- NOTE | 2021-02-17 10:17 | DISCH ---
DISCHARGE INSTRUCTIONS Condition on Discharge Condition on Discharge: Stable Activity After Discharge Activity Instructions for Disc: Other, see below (no lifting over 20 lbs X 2 weeks) Diet after Discharge Diet after Discharge: Renal Dialysis Wound Incision Care Wound/Incision Care: Other, see below (keep dressing clean and dry X 72 hours, may then remove and shower) Follow-Up Follow up with: Sissy Hutchinson NP in 2 weeks in office, call for appt FELICE MONTGOMERY MD Feb 17, 2021 10:17
[2021-02-17] MEDS: fentaNYL PF VIAL 100 MCG/2 ML VIAL IVP PRN ×4 (10:25→11:03)
[2021-02-17 11:02] VITALS: BP 106/58
--- NOTE | 2021-02-19 14:07 | PATHOLOGY ---
[facility] Accession Number: [id number] . 01 Material submitted: . peritoneum - PERITONEAL DIALYSIS CATHETER FOR GROSS . 01 Clinical history: . CATHETER DIALYSIS REMOVAL PERITONEAL DIALYSIS CATHETER REMOVAL RENAL FAILURE . 02 Diagnosis: Segment of catheter, consistent with peritoneal dialysis catheter (Gross only) (JPM:pit; 02/19/2021) QTP 02/19/2021 1302 Local . 02 Electronically signed: . Dominik Perera MD, Pathologist NPI- [id number] . 01 Gross description: . The specimen is received fresh, labeled "Oleg Cross, peritoneal dialysis catheter". Received is a curved segment of clear plastic catheter measuring 33.0 cm in length by 0.5 cm in diameter. A gross photograph is taken. Sections are not submitted. ([facility]; 02/18/2021) QA/[facility] 02/19/2021 0859 Local . 02 Pathologist provided ICD-10: Z49.01 . 02 CPT . 891632 Specimen Comment: A courtesy copy of this report has been sent to [phone] Specimen Comment: Report sent to Performed at: 01 [facility] [address], [place] [id number] MD Duncan Echols MD Phone: [phone] Performed at: [address] [facility] [address] [place], [place] [id number] MD Dominik Perera MD Phone: [phone]
== END 2021-02-17 11:35 | disposition home or self-care (01) ==
LOC: SURG 07:25
PROVIDERS: ATTEND Surgery
DX: I13.2 Hypertensive heart and chronic kidney disease with heart failure and with stage 5 chronic kidney disease, or end stage renal disease (principal); I50.9 Heart failure, unspecified; N18.6 End stage renal disease; J44.9 Chronic obstructive pulmonary disease, unspecified; K21.9 Gastro-esophageal reflux disease without esophagitis; F32.9 Major depressive disorder, single episode, unspecified; Z87.440 Personal history of urinary (tract) infections; Z99.2 Dependence on renal dialysis; Z79.899 Other long term (current) drug therapy; Z98.890 Other specified postprocedural states; Z87.891 Personal history of nicotine dependence
CPT/HCPCS: 49422; A4209; A4364; A4930; A6219; A6402; J0690; J1100; J2405; J2704; J3010; A4452

== ENCOUNTER 2021-04-18 23:03 | Inpatient (IN) | payer MEDICAID ==
[~2021-04-18] VITALS: Ht 172.7 cm; Wt 74.5 kg
[~2021-04-18 23:03] MED LIST changes: -HYDROmorphone 2 MG/ML VIAL IVP PRN; -IV NORMAL SALINE 1000ML BAG 1,000 ML IV SCH; -MORPHINE SULFATE 2 MG/ML INJ. IVP PRN; -PROCHLORPERAZINE 10 MG/2 ML VIAL. IVP PRN; -ceFAZolin SODIUM IV Push 1 GM VIAL. IVP PRN; -fentaNYL PF VIAL 100 MCG/2 ML VIAL IVP PRN
--- NOTE | 2021-04-18 23:27 | PHYS DOC ---
Past Medical History Past Medical History: CHF, COPD, Hypertension, Pneumonia, Renal Failure, Other Additional Past Medical Histor: INCONTINENCE,PERITONITIS,PERITONEAL HOME DIALYSIS (FAMILIA COFFEY APRN) Past Surgical History: Other Additional Past Surgical Histo: Dialysis cath right chest,LEFT KIDNEY STENT,SUPRAPUBIC CATH (FAMILIA COFFEY APRN) Smoking Status: Former Smoker Alcohol Use: None Drug Use: None (FAMILIA COFFEY APRN) General Adult EDM: Chief Complaint: SHORTNESS OF BREATH HPI: HPI: Patient is a 55-year-old male presents emergency department complaining of acute onset of dizziness while carrying a box in his house at approximately 1030 this evening. Patient denies chest pains, chest congestion, nasal congestion. Patient states he feels a little short of breath, states he feels as if he is going to pass out. Patient denies actual syncopal episodes. Patient denies nausea, vomiting, diarrhea. Patient denies any current health history. Patient states he takes no medications at home. Patient denies other physical complaints or physical concerns. (FAMILIA COFFEY APRN) Review of Systems: Review of Systems: 14 body systems of review of systems have been reviewed. See HPI for pertinent positives and negative responses, otherwise all other systems are negative, nonpertinent or noncontributory. Constitutional: Negative except as outlined in HPI above. Skin: Negative except as outlined in HPI above. Eyes: Negative except as outlined in HPI above. HENT: Negative except as outlined in HPI above. Respiratory: Negative except as outlined in HPI above. Cardiovascular: Negative except as outlined in HPI above. GI: Negative except as outlined in HPI above. : Negative except as outlined in HPI above. Musculoskeletal: Negative except as outlined in HPI above. Integument: Negative except as outlined in HPI above. Neurologic: Negative except as outlined in HPI above. Endocrine: Negative except as outlined in HPI above. Lymphatic: Negative except as outlined in HPI above. Psychiatric: Negative except as outlined in HPI above. (FAMILIA COFFEY APRN) Heart Score: C/O Chest Pain: No Risk Factors: Risk Factors: DM, Current or recent (<one month) smoker, HTN, HLP, family history of CAD, obesity. Risk Scores: Score 0 - 3: 2.5% MACE over next 6 weeks - Discharge Home Score 4 - 6: 20.3% MACE over next 6 weeks - Admit for Clinical Observation Score 7 - 10: 72.7% MACE over next 6 weeks - Early Invasive Strategies (FAMILIA COFFEY APRN) Allergies: Allergies: Allergies Coded Allergies Type Severity Reaction Last Updated Verified No Known Drug Allergies 02/17/21 No (FAMILIA COFFEY APRN) Physical Exam: PE: Constitutional: Well developed, well nourished, no acute distress, non-toxic appearance. 55-year-old male in no acute distress. HENT: Normocephalic, atraumatic, bilateral external ears normal, oropharynx moist, no oral exudates, nose normal. Eyes: PERRLA, EOMI, conjunctiva normal, no discharge. Neck: Normal range of motion, no tenderness, supple, no stridor. Cardiovascular:Heart rate irregular rate and rhythm. Lungs & Thorax: Bilateral breath sounds clear to auscultation lung sounds clear to auscultate all lung payne. Abdomen: Bowel sounds normal, soft, no tenderness, no masses, no pulsatile masses. Skin: Warm, dry, no erythema, no rash. Back: No tenderness, no CVA tenderness. Extremities: No tenderness, no cyanosis, no clubbing, ROM intact, no edema. P atient has dialysis fistula right upper extremity with positive bruit and thrill. Neurologic: Alert and oriented X 3, normal motor function, normal sensory function, no focal deficits noted. Psychologic: Affect normal, judgement normal, mood normal. (FAMILIA COFFEY APRN) Current Patient Data: Vital Signs: Vital Signs Date Time Temp Pulse Resp B/P (MAP) Pulse Ox O2 Delivery O2 Flow Rate FiO2 04/18/21 23:14 97.6 40 23 84/45 (58) 94 Room Air 97.6 (FAMILIA COFFEY APRN) EKG: EKG: EKG performed at 2314 by ED nursing staff shows a third-degree heart block without other ectopy, heart rate is 38 bpm, no acute STEMI appreciated, EKG interpreted by ED attending physician Dr. Conley. (FAMILIA COFFEY APRN) Radiology/Procedures: Radiology/Procedures: PATIENT: FELICE GROVE ACCOUNT: [id number] : 1965 LOCATION: ER AGE: 55 SEX: M EXAM STATUS: PRE ER ORD. PHYSICIAN: FAMILIA COFFEY APRN REASON: Short of breath PROCEDURE: CHEST AP ONLY EXAM: AP View of the chest DATE: 04/18/2021 11:25 PM INDICATION: Reason: Short of breath / Spl. Instructions: / History: COMPARISON: 10/08/2018 10/07/2018 FINDINGS: The heart is not enlarged. Aorta is tortuous atherosclerotic calcifications. Patchy opacities right lung and perihilar left lung. No pleural effusion or pneumothorax. Heart is not enlarged. Chronic right clavicle fracture. IMPRESSION: 1. Patchy bilateral parenchymal opacities may represent multifocal consolidative process such as pneumonia. Electronically signed by: Yandel Martell MD (04/18/2021 11:47 PM) OZZY (FAMILIA COFFEY APRN) Course & Med Decision Making: Course & Med Decision Making Pertinent Labs and Imaging studies reviewed. (See chart for details) 55-year-old male, vital signs reviewed, presents to the emergency department complaining of dizziness with slight shortness of breath. Initial examination of patient it was noted on 5-lead bedside monitor patient appeared to be in third-degree heart block, was hypotensive, immediate twelve-lead EKG was obtained to confirm third-degree heart block. Asked a quick history of patient and called channel specialist Dr. Brooks consult and review patient's presentation and history. Dr. Brooks recommended ICU admit, dopamine titrate to heart rate above 50. States will most likely place pacemaker. Consulted patient case with ED attending physician Dr. Conley who recommended one half amp of atropine and 250 cc normal saline bolus. Dr. Conley at bedside for physical examination of patient. After a more extensive bedside examination and chart review of patient, it is revealed patient is a hemodialysis end-stage renal disease patient, Monday hemodialysis. Patient reveals they took 8 pounds of fluid off which is more than normal on this past Monday. Patient denies other complaints, reported a history of small bowel obstruction and hernia repair in the past. States he takes medications for blood pressure, hypothyroid, end- stage renal disease. Patient continues to deny chest pain, continues only complaint of dizziness and feeling weak. Patient does report receiving the COVID-19 virus vaccination series. Patient's chest x-ray concerning for community-acquired pneumonia. CBC and CMP equivocal, no acute specific metabolic source for third-degree heart block identified at this time. ED attending physician Dr. Conley recommended starting Rocephin and azithromycin IV for CAP. Called and discussed patient case and ED work-up with inpatient management physician Dr. Rodríguez who agrees patient's presentation warrants ICU admission, consult cardiology, consult nephrology. Dr. Rodríguez recommended D/C Rocephin and azithromycin infusion and lieu of Zosyn per pharmacy administration related to patient's ESRD. Patient awaiting ICU bed assignment, (FAMILIA COFFEY APRN) Course & Med Decision Making I was the attending physician on date of service of patient's arrival to ER I assisted MEDICAL COLLECTIONS SPECIALIST and initial management of patient, I acknowledge third-degree heart block and advised immediate cardiology consultation in a high risk patient who is end-stage renal disease with recent dialysis yesterday with removal of 7 pounds fluid and sepsis with source being pneumonia MEDICAL COLLECTIONS SPECIALIST, hospitalist and farmworker pullet farm provided initial care of patient until MEDICAL COLLECTIONS SPECIALIST shift was over and I took over complete care of patient At this time, patient tolerating dopamine drip. Patient continuing to require supplemental oxygen via nasal cannula to keep oxygen saturations greater than 90%. Patient hypotensive on arrival,initially improved with 250 mL normal saline but this was transient. X2 doses of albumin again because transient improvement in blood pressure. An additional 250 mL normal saline bolus given Patient had several episodes of nausea and nonbloody nonbilious emesis while in ER that required 4 mg Zofran which improved symptoms Patient agitated. I initially suspected delirium but likely just anxiety/panic attack. Reportable incident noted at 0335 hrs. Patient desaturated to 50% on room air as patient ripped off his nasal cannula. Patient was repositioned and nonrebreather placed with improvement in patient's oxygenation to greater than 90% Patient with full capacity reported that he wanted to leave AMA. Stated that being in an uncomfortable bed and not wanting to live hooked up to machines as major factors. I came by and address this at bedside, patient ultimately willing to stay for continued medical treatment I discussed need for additional IV access and recommended central line placement. Patient with full capacity at this time deferred stating that he did not want any more invasive interventions. He did confirm that he was still full code at this time Additional reportable event at 0430 hrs. when patient's heart rate decompensated into the 20s. Cardiology attending contacted and patient paced transcutaneously. He did not tolerate this and had an anxiety attack. 1 mg Ativan administered with improvement in symptoms. Transcutaneous pacing stopped. Patient after Ativan had improvement in respir atory symptoms, blood pressure and overall agitation. Nonetheless, 30 minutes later heart rate was found to be in the 20s again with recurrence of nausea and vomit. Patient placed on transcutaneous pacing At this time in care, my shift was ending. Patient admitted to hospitalist service who will be assuming complete care of patient with cardiology service already aware of patient. I updated oncoming ER physician about the case and event and emergency occurs as patient is holding in ER Critical Care Time This patient required critical care. Due to the fact that the patient required a significant amount of one on one physician - patient contact time, ordering and review of studies, arranging urgent treatment with development of a management plan, evaluation of patients response to treatment with frequent reassessments, and discussions with other providers this patient required 70 minutes of critical care time. Critical care time was indicated due to the inherent instability and/or potential for instability in this patient. The critical care time that is allocated to this patient is above and beyond any time spent on any other billable procedures performed on this patient. (AMARI CONLEY DO) Elon Disclaimer: Sofia Disclaimer: This electronic medical record was generated, in whole or in part, using a voice recognition dictation system. (FAMILIA COFFEY APRN) Additional Procedures Additional Procedures : Additional Procedures: external pacing Progress Verbal consent obtained from patient to transcutaneously pace heart due to third-degree heart block First attempt was unsuccessful as patient suffered pain and had subsequent anxiety and panic attack. Patient later tolerated pacing after administration of 1 mg Ativan and remained on transcutaneous pacing at 40 until my shift end (AMARI CONLEY DO) Departure Departure Impression: Primary Impression: Third degree heart block Additional Impressions: Community acquired pneumonia Qualified Codes: J18.9 - Pneumonia, unspecified organism ESRD (end stage renal disease) Disposition: ADMITTED INPATIENT Admitting Physician: MARTHA (Admit to ICU to Dr. Rodríguez, consult cardiology, consult nephrology) (FAMILIA COFFEY APRN) Condition: GUARDED Referrals: CHRIS GRIER MD (PCP) FAMILIA COFFEY APRN Apr 18, 2021 23:26 AMARI CONLEY DO Apr 19, 2021 03:44
[2021-04-18 23:30] LABS: BASO % 0 % (0-3); EOS # 1.1 x10^3/uL (0.0-0.7); EOS % 8 % (0-3); HEMOGLOBIN 11.6 g/dL (13.0-17.5); LYMPH # 2.5 x10^3/uL (1.0-4.8); LYMPH % 18 % (24-48); MEAN CORPUSCULAR HEMOGLOBIN 32 pg (25-35); MEAN CORPUSCULAR HGB CONC 33 g/dL (31-37); MEAN CORPUSCULAR VOLUME 96 fL (79-100); MONO # 1.6 x10^3/uL (0.0-1.1); MONO % 12 % (0-9); NEUT # 8.2 x10^3/uL (1.8-7.7); NEUT % 61 % (31-73); PLATELET COUNT 330 x10^3/uL (140-400); RED BLOOD COUNT 3.63 x10^6/uL (4.30-5.70); RED CELL DISTRIBUTION WIDTH 15.7 % (11.5-14.5); WHITE BLOOD COUNT 13.4 x10^3/uL (4.0-11.0)
[2021-04-18 23:42] LABS: CALCIUM 8.3 mg/dL (8.5-10.1); CREATININE 8.5 mg/dL (0.7-1.3); GFR 6.5; POTASSIUM 5.1 mmol/L (3.5-5.1)
--- NOTE | 2021-04-18 23:49 | RAD ---
EXAM: AP View of the chest DATE: 04/18/2021 11:25 PM INDICATION: Reason: Short of breath / Spl. Instructions: / History: COMPARISON: 10/08/2018 10/07/2018 FINDINGS: The heart is not enlarged. Aorta is tortuous atherosclerotic calcifications. Patchy opacities right lung and perihilar left lung. No pleural effusion or pneumothorax. Heart is not enlarged. Chronic right clavicle fracture. IMPRESSION: 1. Patchy bilateral parenchymal opacities may represent multifocal consolidative process such as pne umonia. Electronically signed by: Yandel Martell MD (04/18/2021 11:47 PM) RIOS
[2021-04-18 23:53] LABS: ALBUMIN/GLOBULIN RATIO 0.6 (1.0-1.7); MAGNESIUM 1.9 mg/dL (1.8-2.4); TOTAL BILIRUBIN 0.3 mg/dL (0.2-1.0); TOTAL PROTEIN 8.3 g/dL (6.4-8.2)
[2021-04-18 23:54] LABS: PHOSPHORUS 9.5 mg/dL (2.6-4.7)
[2021-04-18 23:56] LABS: CREATINE KINASE 92 U/L (39-308)
[2021-04-19] VITALS (22 sets, daily range): BP systolic 43–162; BP diastolic 19–84
[2021-04-19] MEDS ORDERED: ATROPINE 0.5 MG/5 ML DISP.SYRINGE. IV ONE
[2021-04-19] MEDS ORDERED: cefTRIAXone IV Push 1 GM VIAL. IVP ONE (00:30)
[2021-04-19] MEDS ORDERED: AZITHRMYCN 500MG IVPB FOR OMNI 250 ML IV ONE (00:30)
[2021-04-19] MEDS ORDERED: PIP/TAZO PER PHARMACY MC PRN (00:30)
[2021-04-19 00:36] LABS: % BASOS 1 % (0-3); % EOS 9 % (0-5); % LYMPHS 14 % (24-48); % MONOS 9 % (0-10); % SEGS 67 % (35-66); ANISOCYTOSIS SLIGHT; PLT ESTIMATE ADEQUATE (ADEQUATE); POLYCHROMASIA SLIGHT
[2021-04-19] MEDS: PIPERACILLIN/TAZOBACTAM 2.25 GM in IV NORMAL SALINE 50ML 50 ML IV SCH ×4 (00:40→22:06)
[2021-04-19] MEDS ORDERED: ALBUMIN HUMAN 5% 250 ML IV ONE (02:00)
--- NOTE | 2021-04-19 02:24 | EKG ---
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
--- NOTE | 2021-04-19 02:27 | EKG ---
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
[2021-04-19] MEDS ORDERED: ONDANSETRON PF 4 MG/2 ML VIAL. ONE (02:59)
[2021-04-19] MEDS ORDERED: ONDANSETRON PF 4 MG/2 ML VIAL. IVP PRN ×2 (03:00→07:00)
[2021-04-19] MEDS ORDERED: ALBUMIN HUMAN 25% 100 ML IV ONE (03:30)
[2021-04-19] MEDS ORDERED: IV NORMAL SALINE 500ML BAG 500 ML IV ONE ×2 (04:00)
[2021-04-19 06:28] LABS: BASE EXCESS ABG -10 mmol/L (-3-3); HCO3 ABG 18 mmol/L (21-28); PCO2 ABG 48 mmHg (35-46); PO2 ABG 203 mmHg (75-108); SAT O2 ABG 99 % (92-99)
[2021-04-19 06:29] LABS: FIO2 ABG 100
[2021-04-19] MEDS ORDERED: hydrALAZINE 20 MG/ML VIAL. IVP PRN (07:00)
[2021-04-19] MEDS ORDERED: guaiFENesin DM 200MG/20MG 10 ML SYRUP PO PRN (07:00)
[2021-04-19] MEDS ORDERED: ACETAMINOPHEN 325 MG TABLET. PO PRN (07:00)
--- NOTE | 2021-04-19 07:05 | PDOC1 ---
History and Physical Date of Admission Date of Admission DATE: 04/19/21 TIME: 06:55 Identification/Chief Complaint Chief Complaint Confusion Source Source: Patient History of Present Illness History of Present Illness Mr Dowling is a 55yo M w/ PMHx CHF, COPD, HTN, ESRD on PD recently transitioned to HD who presents to the emergency room complaining of dizziness while carrying a box at home. Patient denies chest pains, chest congestion, nasal congestion. Patient states he feels a little short of breath, states he feels as if he is going to pass out. Patient denies actual syncopal episodes. He recently transitioned from PD to HD this past summer. WBC 13.4, Hb 11.6, platelets 330, NA 134, K5.1, BUN 62, CR 8.5, glucose 120 calcium 8.3, phosphorus 9.5, mag 1.9, bilirubin 0.3, AST 50, ALT 68, alk phos 295, albumin 3, troponin 0, lactate 0.9, NT proBNP greater than 35,000, ABG 7.2/48/203 Chest radiograph with patchy bilateral parenchymal opacities. Initial EKG appears to be third-degree heart block rate of [address] on external pacing, dopamine infusion He was hypoxic and confused in ED, initially attempted to get out of bed with significant O2 desaturations, requiring BIPAP. Admitted for further care to ICU Past Medical History Cardiovascular: No pertinent hx, HTN Pulmonary: Bronchitis, COPD, Other CENTRAL NERVOUS SYSTEM: Other GI: No pertinent hx, GI bleed Heme/Onc: Anemia NOS Hepatobiliary: No pertinent hx Psych: No pertinent hx Rheumatologic: No pertinent hx Infectious disease: Other Renal/: Chronic renal insuff, Chronic renal failure, UTI, Other Endocrine: No pertinent hx, Hyperparathyroidism Past Surgical History Past Surgical History: Other Family History Family History: Coronary Artery Disease Social History Smoke: No ALCOHOL: none Drugs: None Current Problem List Problem List Problems Medical Problems: (1) Community acquired pneumonia Status: Acute (2) ESRD (end stage renal disease) Status: Acute (3) Third degree heart block Status: Acute Current Medications Current Medications Current Medications Atropine Sulfate (ATROPINE 0.5mg SYRINGE) 0.5 mg 1X ONCE IV Last administered on 04/18/21at 23:38; Start 04/19/21 at 00:00; Stop 04/19/21 at 00:01; Status DC Dopamine HCl/ Dextrose 250 ml @ 13.125 mls/ hr 1X ONCE IV Last administered on 04/18/21at 23:49; Start 04/19/21 at 00:00; Stop 04/19/21 at 19:02 Sodium Chloride 500 ml @ 250 mls/hr 1X ONCE IV Last administered on 04/18/21at 23:54; Start 04/19/21 at 00:00; Stop 04/19/21 at 01:59; Status DC Ceftriaxone Sodium (Rocephin) 1 gm 1X ONCE IVP ; Start 04/19/21 at 00:30; Stop 04/19/21 at 00:29; Status DC Azithromycin 250 ml @ 250 mls/hr 1X ONCE IV ; Start 04/19/21 at 00:30; Stop 04/19/21 at 00:29; Status DC Piperacillin Sod/ Tazobactam Sod (Zosyn Per Pharmacy) 1 each PRN DAILY PRN MC SEE COMMENTS; Start 04/19/21 at 00:30 Piperacillin Sod/ Tazobactam Sod 2.25 gm/Sodium Chloride 50 ml @ 100 mls/hr Q8HRS IV Last administered on 04/19/21at 06:00; Start 04/19/21 at 00:30 Albumin Human 250 ml @ 62.5 mls/hr 1X ONCE IV Last administered on 04/19/21at 01:37; Start 04/19/21 at 02:00; Stop 04/19/21 at 05:59; Status DC Albumin Human 100 ml @ 100 mls/hr 1X ONCE IV Last administered on 04/19/21at 03:06; Start 04/19/21 at 03:30; Stop 04/19/21 at 04:29; Status DC Ondansetron HCl (Zofran) 4 mg PRN Q6HRS PRN IVP NAUSEA/VOMITING 1ST CHOICE Last administered on 04/19/21at 03:07; Start 04/19/21 at 03:00 Ondansetron HCl (Zofran) 4 mg STK-MED ONCE .ROUTE ; Start 04/19/21 at 02:59; Stop 04/19/21 at 02:59; Status DC Sodium Chloride 500 ml @ 250 mls/hr 1X ONCE IV Last administered on 04/19/21at 04:29; Start 04/19/21 at 04:00; Stop 04/19/21 at 05:59; Status DC Lorazepam (Ativan Inj) 2 mg STK-MED ONCE .ROUTE ; Start 04/19/21 at 05:41; Stop 04/19/21 at 05:41; Status DC Lorazepam (Ativan Inj) 1 mg 1X ONCE IVP Last administered on 04/19/21at 05:52; Start 04/19/21 at 06:30; Stop 04/19/21 at 06:31; Status DC Active Scripts Active Reported Ferric Citrate 210 Mg Tablet 210 Mg PO TIDAC Renagel (Sevelamer Hcl) 800 Mg Tablet 2 Tab PO TIDWMEALS Calcitriol 0.25 Mcg Capsule 1 Cap PO DAILY Furosemide 40 Mg Tablet 1 Tab PO DAILY Kapspargo Sprinkle (Metoprolol Succinate) 50 Mg Cap.spr.24 50 Mg PO DAILY Cinacalcet HCl 30 Mg Tablet 30 Mg PO QMWF Allergies Allergies: Coded Allergies: No Known Drug Allergies (Unverified , 02/17/21) ROS Review of System Unable to obtain due to confusion Physical Exam General: moderate distress, Other (Confused) HEENT: Atraumatic, PERRLA, EOMI, Mucous membr. moist/pink Lungs: Other (Bilateral crackles) Heart: S1S2, RRR, no thrills, no rubs Abdomen: Normal bowel sounds, No hepatosplenomegaly, No masses, Other (mild distention) Rectal Exam: not examined Extremities: No clubbing, No cyanosis, No edema, Normal pulses, No tenderness/swelling Skin: No rashes, No breakdown, No significant lesion Neuro: Normal tone, Sensation intact, Cranial nerves 3-12 NL, Reflexes 2+, Other (Moving all 4 limbs) Psych/Mental Status: Other Vitals Vitals Vital Signs Date Time Temp Pulse Resp B/P (MAP) Pulse Ox O2 Delivery O2 Flow Rate FiO2 04/19/21 06:03 32 22 112/50 (70) 100 BiPAP/CPAP 04/19/21 05:18 13.0 04/18/21 23:14 97.6 97.6 Labs Labs Laboratory Tests Test 04/18/21 23:20 04/19/21 00:05 04/19/21 06:22 White Blood Count 13.4 x10^3/uL (4.0-11.0) Red Blood Count 3.63 x10^6/uL (4.30-5.70) Hemoglobin 11.6 g/dL (13.0-17.5) Hematocrit 35.0 % (39.0-53.0) Mean Corpuscular Volume 96 fL (79-100) Mean Corpuscular Hemoglobin 32 pg (25-35) Mean Corpuscular Hemoglobin Concent 33 g/dL (31-37) Red Cell Distribution Width 15.7 % (11.5-14.5) Platelet Count 330 x10^3/uL (140-400) Neutrophils (%) (Auto) 61 % (31-73) Lymphocytes (%) (Auto) 18 % (24-48) Monocytes (%) (Auto) 12 % (0-9) Eosinophils (%) (Auto) 8 % (0-3) Basophils (%) (Auto) 0 % (0-3) Neutrophils # (Auto) 8.2 x10^3/uL (1.8-7.7) Lymphocytes # (Auto) 2.5 x10^3/uL (1.0-4.8) Monocytes # (Auto) 1.6 x10^3/uL (0.0-1.1) Eosinophils # (Auto) 1.1 x10^3/uL (0.0-0.7) Basophils # (Auto) 0.0 x10^3/uL (0.0-0.2) Segmented Neutrophils % 67 % (35-66) Lymphocytes % 14 % (24-48) Monocytes % 9 % (0-10) Eosinophils % 9 % (0-5) Basophils % 1 % (0-3) Platelet Estimate Adequate (ADEQUATE) Polychromasia Slight Anisocytosis Slight Sodium Level 134 mmol/L (136-145) Potassium Level 5.1 mmol/L (3.5-5.1) Chloride Level 94 mmol/L (98-107) Carbon Dioxide Level 27 mmol/L (21-32) Anion Gap 13 (6-14) Blood Urea Nitrogen 62 mg/dL (8-26) Creatinine 8.5 mg/dL (0.7-1.3) Estimated GFR (Cockcroft-Gault) 6.5 BUN/Creatinine Ratio 7 (6-20) Glucose Level 120 mg/dL (70-99) Lactic Acid Level 0.9 mmol/L (0.4-2.0) Calcium Level 8.3 mg/dL (8.5-10.1) Phosphorus Level 9.5 mg/dL (2.6-4.7) Magnesium Level 1.9 mg/dL (1.8-2.4) Total Bilirubin 0.3 mg/dL (0.2-1.0) Aspartate Amino Transf (AST/SGOT) 50 U/L (15-37) Alanine Aminotransferase (ALT/SGPT) 68 U/L (16-63) Alkaline Phosphatase 295 U/L (46-116) Creatine Kinase 92 U/L (39-308) Creatine Kinase MB (Mass) 2.7 ng/mL (0.0-3.6) Creatine Kinase MB Relative Index 2.9 % (0-4) Troponin I Quantitative < 0.017 ng/mL (0.000-0.055) IB-Fip-B-Type Natriuretic Peptide > 55760 pg/mL (0-124) Total Protein 8.3 g/dL (6.4-8.2) Albumin 3.0 g/dL (3.4-5.0) Albumin/Globulin Ratio 0.6 (1.0-1.7) SARS-CoV-2 Antigen (Rapid) Negative (NEGATIVE) O2 Saturation 99 % (92-99) Arterial Blood pH 7.20 (7.35-7.45) Arterial Blood pCO2 at Patient Temp 48 mmHg (35-46) Arterial Blood pO2 at Patient Temp 203 mmHg (75-108) Arterial Blood HCO3 18 mmol/L (21-28) Arterial Blood Base Excess -10 mmol/L (-3-3) FiO2 100 Laboratory Tests Test 04/18/21 23:20 04/19/21 00:05 04/19/21 06:22 White Blood Count 13.4 x10^3/uL (4.0-11.0) Red Blood Count 3.63 x10^6/uL (4.30-5.70) Hemoglobin 11.6 g/dL (13.0-17.5) Hematocrit 35.0 % (39.0-53.0) Mean Corpuscular Volume 96 fL (79-100) Mean Corpuscular Hemoglobin 32 pg (25-35) Mean Corpuscular Hemoglobin Concent 33 g/dL (31-37) Red Cell Distribution Width 15.7 % (11.5-14.5) Platelet Count 330 x10^3/uL (140-400) Neutrophils (%) (Auto) 61 % (31-73) Lymphocytes (%) (Auto) 18 % (24-48) Monocytes (%) (Auto) 12 % (0-9) Eosinophils (%) (Auto) 8 % (0-3) Basophils (%) (Auto) 0 % (0-3) Neutrophils # (Auto) 8.2 x10^3/uL (1.8-7.7) Lymphocytes # (Auto) 2.5 x10^3/uL (1.0-4.8) Monocytes # (Auto) 1.6 x10^3/uL (0.0-1.1) Eosinophils # (Auto) 1.1 x10^3/uL (0.0-0.7) Basophils # (Auto) 0.0 x10^3/uL (0.0-0.2) Segmented Neutrophils % 67 % (35-66) Lymphocytes % 14 % (24-48) Monocytes % 9 % (0-10) Eosinophils % 9 % (0-5) Basophils % 1 % (0-3) Platelet Estimate Adequate (ADEQUATE) Polychromasia Slight Anisocytosis Slight Sodium Level 134 mmol/L (136-145) Potassium Level 5.1 mmol/L (3.5-5.1) Chloride Level 94 mmol/L (98-107) Carbon Dioxide Level 27 mmol/L (21-32) Anion Gap 13 (6-14) Blood Urea Nitrogen 62 mg/dL (8-26) Creatinine 8.5 mg/dL (0.7-1.3) Estimated GFR (Cockcroft-Gault) 6.5 BUN/Creatinine Ratio 7 (6-20) Glucose Level 120 mg/dL (70-99) Lactic Acid Level 0.9 mmol/L (0.4-2.0) Calcium Level 8.3 mg/dL (8.5-10.1) Phosphorus Level 9.5 mg/dL (2.6-4.7) Magnesium Level 1.9 mg/dL (1.8-2.4) Total Bilirubin 0.3 mg/dL (0.2-1.0) Aspartate Amino Transf (AST/SGOT) 50 U/L (15-37) Alanine Aminotransferase (ALT/SGPT) 68 U/L (16-63) Alkaline Phosphatase 295 U/L (46-116) Creatine Kinase 92 U/L (39-308) Creatine Kinase MB (Mass) 2.7 ng/mL (0.0-3.6) Creatine Kinase MB Relative Index 2.9 % (0-4) Troponin I Quantitative < 0.017 ng/mL (0.000-0.055) EF-Wxc-B-Type Natriuretic Peptide > 86447 pg/mL (0-124) Total Protein 8.3 g/dL (6.4-8.2) Albumin 3.0 g/dL (3.4-5.0) Albumin/Globulin Ratio 0.6 (1.0-1.7) SARS-CoV-2 Antigen (Rapid) Negative (NEGATIVE) O2 Saturation 99 % (92-99) Arterial Blood pH 7.20 (7.35-7.45) Arterial Blood pCO2 at Patient Temp 48 mmHg (35-46) Arterial Blood pO2 at Patient Temp 203 mmHg (75-108) Arterial Blood HCO3 18 mmol/L (21-28) Arterial Blood Base Excess -10 mmol/L (-3-3) FiO2 100 Images Images Chest radiograph: The heart is not enlarged. Aorta is tortuous atherosclerotic calcifications. Patchy opacities right lung and perihilar left lung. No pleural effusion or pneumothorax. Heart is not enlarged. Chronic right clavicle fracture. IMPRESSION: 1. Patchy bilateral parenchymal opacities may represent multifocal consolidative process such as pneumonia. VTE Prophylaxis Ordered VTE Prophylaxis Devices: Yes VTE Pharmacological Prophylaxi: Yes Assessment/Plan Assessment/Plan A/P: Acute encephalopathy - likely due to metabolic derangement, hypoxia, and CHB. no clear focal deficits neurologically Complete heart block - on external pacing, dopamine. Cardiology consulted. ICU admitted. Acute respiratory failure with hypoxia - BIPAP. Likely fluid overload from acute diastolic CHF Metabolic acidosis - due to hypoxia, ESRD Acute diastolic CHF - will need UF with dialysis COPD - with likely exacerbation complicated by CHF. On bipap currently HTN - prn hydralazine ESRD on PD recently transitioned to HD - nephrology consulted for HD Mild Transaminitis - likely from acute CHF. Will f/u final COVID results Moderate protein malnutrition - will start early nutrition when more alert Anemia of ESRD - monitor Leukocytosis - meets SIRS, treating for sepsis due to COPD exacerbation/pneumonia with zosyn FEN - NPO PPX - heparin FULL CODE Dispo - inpatient ICU cc time 72 minutes Justifications for Admission Other Justification SBO LISA DIOP MD Apr 19, 2021 07:05
[2021-04-19] MEDS: fentaNYL PF VIAL 100 MCG/2 ML VIAL IVP PRN ×2 (07:50→09:15)
[2021-04-19] MEDS: SEVELAMER CARBONATE 800 MG TABLET. PO SCH ×3 (08:00→17:21)
--- NOTE | 2021-04-19 09:00 | NUR ---
Patient arrived from ED with an underlying HR in the 30's. Currently on 20mcg of dopamine, SBP in the 70's. Started to transcutaneous pace at a rate of 60 at 130 mA. After pacing was initiated, BP are all over the place. SBP as high as 150's, low as 60's, patient however responsive and at times anxious. Fent and ativan given to relieve the anxiety produced from the transcutaneous pacing. labor and delivery nurse nurses here at approx 0900 to take patient to microbiology lab assistant for placement of temp pacemaker. Will monitor.
[2021-04-19] MEDS ORDERED: LIDOCAINE 1% Multi-Dose 20 ML VIAL. ONE (09:01)
[2021-04-19] MEDS ORDERED: LIDOCAINE 1% Multi-Dose 20 ML VIAL. INJ ONE (09:15)
[2021-04-19 09:28] LABS: PROTHROMBIN TIME PATIENT 14.4 SEC (11.7-14.0)
--- NOTE | 2021-04-19 09:34 | PDOC ---
MODERATE SEDATION ASSESSMENT RISKS/ALTERNATIVES Risks/Alternatives Risks and alternatives of this type of sedation and procedure discussed with: RISK/ALTERNATIVES: Patient H & P ON CHART H & P H & P on chart and reviewed for co-morbid conditions and appropriate labs. H&P ON CHART: Yes STATUS PREG STATUS ASSESSED: N/A MEDS/ALLERGIES REVIEWED Meds/Allergies Reviewed Medications and Allergies including time and route of recently administered narcotics and sedatives. MEDS/ALLERGIES REVIEWED: Yes ASA RATING ASA RATING: III AIRWAY ASSESSMENT Airway Assessment Airway patency, oral function limitations, presence of caps, crowns, dentures, partials, and ability to extend neck assessed. AIRWAY ASSESSMENT: Yes MALLAMPATI SCORE MALLAMPATI SCORE: II PRE-SEDATION ASSESSMENT PRE-SEDATION ASSESSMENT: Yes ANITHA CAMERON MD Apr 19, 2021 09:34
--- NOTE | 2021-04-19 10:16 | NUR ---
SS following for discharge planning. SS reviewed pt chart and discussed with pt RN. Pt is from home and is currently on BIPAP at 100%. COVID19 negative. Pt on IV Zosyn and Dopamine drip. Pacemaker being placed today. SS will continue to follow for discharge planning.
[2021-04-19] MEDS ORDERED: EPINEPHrine SYRINGE 1 MG/10 ML SYRINGE IV ONE (10:17)
[2021-04-19] MEDS ORDERED: EPINEPHrine 1 MG/ML VIAL ONE (10:18)
[2021-04-19] MEDS ORDERED: IODIXANOL 320 MG/ML 100 ML VIAL. ONE (10:32)
[2021-04-19] MEDS ORDERED: fentaNYL PF VIAL 100 MCG/2 ML VIAL ONE (10:34)
[2021-04-19] MEDS ORDERED: MIDAZOLAM HCL/PF 2 MG/2 ML VIAL. ONE (10:34)
--- NOTE | 2021-04-19 10:41 | PDOC ---
Infectious Disease Note Vital Signs: Vital Signs Vital Signs Date Time Temp Pulse Resp B/P (MAP) Pulse Ox O2 Delivery O2 Flow Rate FiO2 04/19/21 09:36 BiPAP/CPAP 04/19/21 09:15 30 92 04/19/21 06:03 32 112/50 (70) 04/19/21 05:18 13.0 04/18/21 23:14 97.6 97.6 Medications: Inpatient Meds: Medications reviewed. Labs: Lab Laboratory Tests Test 04/18/21 23:20 04/19/21 00:05 04/19/21 06:22 04/19/21 08:55 White Blood Count 13.4 x10^3/uL (4.0-11.0) Red Blood Count 3.63 x10^6/uL (4.30-5.70) Hemoglobin 11.6 g/dL (13.0-17.5) Hematocrit 35.0 % (39.0-53.0) Mean Corpuscular Volume 96 fL (79-100) Mean Corpuscular Hemoglobin 32 pg (25-35) Mean Corpuscular Hemoglobin Concent 33 g/dL (31-37) Red Cell Distribution Width 15.7 % (11.5-14.5) Platelet Count 330 x10^3/uL (140-400) Neutrophils (%) (Auto) 61 % (31-73) Lymphocytes (%) (Auto) 18 % (24-48) Monocytes (%) (Auto) 12 % (0-9) Eosinophils (%) (Auto) 8 % (0-3) Basophils (%) (Auto) 0 % (0-3) Neutrophils # (Auto) 8.2 x10^3/uL (1.8-7.7) Lymphocytes # (Auto) 2.5 x10^3/uL (1.0-4.8) Monocytes # (Auto) 1.6 x10^3/uL (0.0-1.1) Eosinophils # (Auto) 1.1 x10^3/uL (0.0-0.7) Basophils # (Auto) 0.0 x10^3/uL (0.0-0.2) Segmented Neutrophils % 67 % (35-66) Lymphocytes % 14 % (24-48) Monocytes % 9 % (0-10) Eosinophils % 9 % (0-5) Basophils % 1 % (0-3) Platelet Estimate Adequate (ADEQUATE) Polychromasia Slight Anisocytosis Slight Sodium Level 134 mmol/L (136-145) Potassium Level 5.1 mmol/L (3.5-5.1) Chloride Level 94 mmol/L (98-107) Carbon Dioxide Level 27 mmol/L (21-32) Anion Gap 13 (6-14) Blood Urea Nitrogen 62 mg/dL (8-26) Creatinine 8.5 mg/dL (0.7-1.3) Estimated GFR (Cockcroft-Gault) 6.5 BUN/Creatinine Ratio 7 (6-20) Glucose Level 120 mg/dL (70-99) Lactic Acid Level 0.9 mmol/L (0.4-2.0) Calcium Level 8.3 mg/dL (8.5-10.1) Phosphorus Level 9.5 mg/dL (2.6-4.7) Magnesium Level 1.9 mg/dL (1.8-2.4) Total Bilirubin 0.3 mg/dL (0.2-1.0) Aspartate Amino Transf (AST/SGOT) 50 U/L (15-37) Alanine Aminotransferase (ALT/SGPT) 68 U/L (16-63) Alkaline Phosphatase 295 U/L (46-116) Creatine Kinase 92 U/L (39-308) Creatine Kinase MB (Mass) 2.7 ng/mL (0.0-3.6) Creatine Kinase MB Relative Index 2.9 % (0-4) Troponin I Quantitative < 0.017 ng/mL (0.000-0.055) FR-Tru-D-Type Natriuretic Peptide > 88217 pg/mL (0-124) Total Protein 8.3 g/dL (6.4-8.2) Albumin 3.0 g/dL (3.4-5.0) Albumin/Globulin Ratio 0.6 (1.0-1.7) SARS-CoV-2 Antigen (Rapid) Negative (NEGATIVE) O2 Saturation 99 % (92-99) Arterial Blood pH 7.20 (7.35-7.45) Arterial Blood pCO2 at Patient Temp 48 mmHg (35-46) Arterial Blood pO2 at Patient Temp 203 mmHg (75-108) Arterial Blood HCO3 18 mmol/L (21-28) Arterial Blood Base Excess -10 mmol/L (-3-3) FiO2 100 Prothrombin Time 14.4 SEC (11.7-14.0) Prothromb Time International Ratio 1.1 (0.8-1.1) Activated Partial Thromboplast Time 35 SEC (24-38) Objective: Assessment: Patient is off unit for procedure Plan: Plan of Care Discussed with nursing staff BRYSON VALERIO MD Apr 19, 2021 10:41
[2021-04-19] MEDS ORDERED: MIDAZOLAM HCL/PF 2 MG/2 ML VIAL. IV ONE (11:00)
[2021-04-19] MEDS ORDERED: fentaNYL PF VIAL 100 MCG/2 ML VIAL IV ONE (11:00)
[2021-04-19] MEDS ORDERED: CALC200T3 PO (11:15)
[2021-04-19] MEDS ORDERED: FURO-68 PO (11:15)
[2021-04-19] MEDS ORDERED: CINA60TA PO (11:15)
[2021-04-19] MEDS ORDERED: FERR210T PO (11:15)
--- NOTE | 2021-04-19 11:37 | PDOC2 ---
NOEMI BARR COLLECTION ANALYST 04/19/21 1137: CARDIAC CONSULT DATE OF CONSULT Date of Consult DATE: 04/19/21 TIME: 11:20 REASON FOR CONSULT Reason for Consult: 3rd degree heart block REFERRING PHYSICIAN Referring Physician: Dr. Hernandez SOURCE Source: Chart review HISTORY OF PRESENT ILLNESS HISTORY OF PRESENT ILLNESS This is a 55 yo male who presented secondary to dizziness; felt as if he could pass out. Was hypoxic, confused, and noted with complete heart block, which prompted this consult. Patient was transcutaneously paced and place on Dopamine gtt. Temporary pacemaker was placed today. Patient presently on Bipap and remains somnolent s/p sedation for temporary PPM placement. Discussed with Dr. Lawler, patient is compliant with HD. PAST MEDICAL HISTORY Cardiovascular: CHF, HTN, Pulmonary hypertension, Other (pericaridal effusion ) Pulmonary: COPD GI: GI bleed Heme/Onc: Anemia NOS Hepatobiliary: Hep A/B/C Renal/: Chronic renal failure (ESRD ), Benign prostatic enlarg., Other (urinary retention ) Endocrine: Other (hypoparathyroid) PAST SURGICAL HISTORY Past Surgical History: Hernia Repair, Other (AV shunt, subxiphoid pericardial window ) FAMILY HISTORY Family History: Heart Disease SOCIAL HISTORY Smoke: No ALCOHOL: none Drugs: None CURRENT MEDICATIONS CURRENT MEDICATIONS Current Medications Medications (Trade) Dose Ordered Sig/Kevin Route PRN Reason Start Time Stop Time Status Last Admin Dose Admin Atropine Sulfate (ATROPINE 0.5mg SYRINGE) 0.5 mg 1X ONCE IV 04/19/21 00:00 04/19/21 00:01 DC 04/18/21 23:38 Dopamine HCl/ Dextrose 250 ml @ 13.125 mls/ hr 1X ONCE IV 04/19/21 00:00 04/19/21 10:30 DC 04/18/21 23:49 Sodium Chloride 500 ml @ 250 mls/hr 1X ONCE IV 04/19/21 00:00 04/19/21 01:59 DC 04/18/21 23:54 Piperacillin Sod/ Tazobactam Sod 2.25 gm/Sodium Chloride 50 ml @ 100 mls/hr Q8HRS IV 04/19/21 00:30 04/19/21 06:00 Albumin Human 250 ml @ 62.5 mls/hr 1X ONCE IV 04/19/21 02:00 04/19/21 05:59 DC 04/19/21 01:37 Albumin Human 100 ml @ 100 mls/hr 1X ONCE IV 04/19/21 03:30 04/19/21 04:29 DC 04/19/21 03:06 Ondansetron HCl (Zofran) 4 mg PRN Q6HRS PRN IVP NAUSEA/VOMITING 1ST CHOICE 04/19/21 03:00 04/19/21 07:11 DC 04/19/21 03:07 Sodium Chloride 500 ml @ 250 mls/hr 1X ONCE IV 04/19/21 04:00 04/19/21 05:59 DC 04/19/21 04:29 Lorazepam (Ativan Inj) 1 mg 1X ONCE IVP 04/19/21 06:30 04/19/21 06:31 DC 04/19/21 05:52 Ondansetron HCl (Zofran) 4 mg PRN Q4HRS PRN IVP NAUSEA/VOMITING 04/19/21 07:00 04/19/21 07:15 Fentanyl Citrate (Fentanyl 2ml Vial) 25 mcg PRN Q3HRS PRN IVP SEVERE PAIN 7-10 04/19/21 07:00 04/19/21 07:50 Lorazepam (Ativan Inj) 1 mg PRN Q4HRS PRN IVP ANXIETY / AGITATION 04/19/21 07:45 04/19/21 07:51 Dopamine HCl/ Dextrose 250 ml @ 13.988 mls/ hr CONT PRN IV SEE I/O RECORD 04/19/21 09:00 04/19/21 09:07 Heparin Sodium/ Sodium Chloride (HEPARIN for ARTERIAL LINE FLUSH) 1,000 unit 1X ONCE IART 04/19/21 09:15 04/19/21 09:30 DC 04/19/21 09:15 Lidocaine HCl (Lidocaine 1% 20ml Vial) 20 ml 1X ONCE INJ 04/19/21 09:15 04/19/21 09:30 DC 04/19/21 09:46 Fentanyl Citrate (Fentanyl 2ml Vial) 100 mcg PRN Q2HR PRN IVP PAIN 04/19/21 09:15 04/19/21 09:15 Lorazepam (Ativan Inj) 2 mg PRN Q2HRS PRN IVP ANXIETY / AGITATION 04/19/21 09:15 04/19/21 09:14 Midazolam HCl (Versed) 2 mg 1X ONCE IV 04/19/21 11:00 04/19/21 11:02 DC 04/19/21 11:13 Fentanyl Citrate (Fentanyl 2ml Vial) 100 mcg 1X ONCE IV 04/19/21 11:00 04/19/21 11:02 DC 04/19/21 11:13 Epinephrine HCl (EPINEPHrine SYRINGE) 0.5 mg 1X ONCE IV 04/19/21 10:17 04/19/21 11:02 DC 04/19/21 10:17 ALLERGIES ALLERGIES: Coded Allergies: No Known Drug Allergies (Unverified , 02/17/21) ROS Review of System unobtainable PHYSICAL EXAM General: Other (somnolent ) HEENT: Atraumatic Lungs: Other (BiPAP) Heart: Other (100% vpaced ) Abdomen: Soft Extremities: No edema Skin: No significant lesion Neuro: Other (somnolent ) Psych/Mental Status: Other (unable to assess) MUSCULOSKELETAL: Osteoarthritic changes both hands VITALS/I&O VITALS/I&O: Vital Signs Date Time Temp Pulse Resp B/P (MAP) Pulse Ox O2 Delivery O2 Flow Rate FiO2 04/19/21 11:13 21 100 BiPAP/CPAP 04/19/21 10:57 70 04/19/21 06:03 112/50 (70) 04/19/21 05:18 13.0 04/18/21 23:14 97.6 97.6 LABS Lab: Laboratory Tests Test 04/18/21 23:20 04/19/21 00:05 04/19/21 06:22 04/19/21 08:55 White Blood Count 13.4 x10^3/uL (4.0-11.0) H Red Blood Count 3.63 x10^6/uL (4.30-5.70) L Hemoglobin 11.6 g/dL (13.0-17.5) L Hematocrit 35.0 % (39.0-53.0) L Mean Corpuscular Volume 96 fL (79-100) Mean Corpuscular Hemoglobin 32 pg (25-35) Mean Corpuscular Hemoglobin Concent 33 g/dL (31-37) Red Cell Distribution Width 15.7 % (11.5-14.5) H Platelet Count 330 x10^3/uL (140-400) Neutrophils (%) (Auto) 61 % (31-73) Lymphocytes (%) (Auto) 18 % (24-48) L Monocytes (%) (Auto) 12 % (0-9) H Eosinophils (%) (Auto) 8 % (0-3) H Basophils (%) (Auto) 0 % (0-3) Neutrophils # (Auto) 8.2 x10^3/uL (1.8-7.7) H Lymphocytes # (Auto) 2.5 x10^3/uL (1.0-4.8) Monocytes # (Auto) 1.6 x10^3/uL (0.0-1.1) H Eosinophils # (Auto) 1.1 x10^3/uL (0.0-0.7) H Basophils # (Auto) 0.0 x10^3/uL (0.0-0.2) Segmented Neutrophils % 67 % (35-66) H Lymphocytes % 14 % (24-48) L Monocytes % 9 % (0-10) Eosinophils % 9 % (0-5) H Basophils % 1 % (0-3) Platelet Estimate Adequate (ADEQUATE) Polychromasia Slight Anisocytosis Slight Sodium Level 134 mmol/L (136-145) L Potassium Level 5.1 mmol/L (3.5-5.1) Chloride Level 94 mmol/L (98-107) L Carbon Dioxide Level 27 mmol/L (21-32) Anion Gap 13 (6-14) Blood Urea Nitrogen 62 mg/dL (8-26) H Creatinine 8.5 mg/dL (0.7-1.3) H Estimated GFR (Cockcroft-Gault) 6.5 BUN/Creatinine Ratio 7 (6-20) Glucose Level 120 mg/dL (70-99) H Lactic Acid Level 0.9 mmol/L (0.4-2.0) Calcium Level 8.3 mg/dL (8.5-10.1) L Phosphorus Level 9.5 mg/dL (2.6-4.7) H Magnesium Level 1.9 mg/dL (1.8-2.4) Total Bilirubin 0.3 mg/dL (0.2-1.0) Aspartate Amino Transferase (AST) 50 U/L (15-37) H Alanine Aminotransferase (ALT) 68 U/L (16-63) H Alkaline Phosphatase 295 U/L (46-116) H Creatine Kinase 92 U/L (39-308) Creatine Kinase MB (Mass) 2.7 ng/mL (0.0-3.6) Creatine Kinase MB Relative Index 2.9 % (0-4) Troponin I Quantitative < 0.017 ng/mL (0.000-0.055) YM-Mnp-[id number]-Type Natriuretic Peptide > 95946 pg/mL (0-124) H Total Protein 8.3 g/dL (6.4-8.2) H Albumin 3.0 g/dL (3.4-5.0) L Albumin/Globulin Ratio 0.6 (1.0-1.7) L SARS-CoV-2 Antigen (Rapid) Negative (NEGATIVE) O2 Saturation 99 % (92-99) Arterial Blood pH 7.20 (7.35-7.45) *L Arterial Blood pCO2 at Patient Temp 48 mmHg (35-46) H Arterial Blood pO2 at Patient Temp 203 mmHg (75-108) H Arterial Blood HCO3 18 mmol/L (21-28) L Arterial Blood Base Excess -10 mmol/L (-3-3) L FiO2 100 Prothrombin Time 14.4 SEC (11.7-14.0) H Prothrombin Time INR 1.1 (0.8-1.1) Activated Partial Thromboplast Time 35 SEC (24-38) Laboratory Tests 04/18/21 23:20 Laboratory Tests 04/18/21 23:20 ASSESSMENT/PLAN ASSESSMENT/PLAN 1. Dizziness; EKG with complete heart block; on BB at home. treated with Dopamine and required transcutaneous pacing. s/p temp pacemaker 2. Acute respiratory failure; multifactorial with CHF, AE COPD, and probable PNA 3. Acute on chronic diastolic CHF; Echo 01/11 with preserved LV systolic functi on 4. ESRD on HD; uremic. has been compliant with HD 5. Leukocytosis 6. Valvular disease 7. Moderate secondary pulmonary HTN 8. Mildly elevated LFTs 9. Encephalopathy; multifactorial Recommendations Discontinue metoprolol Avoid AV terrence blocking agents TSH level Monitor rhythm Fluid offloading via HD If high-grade block persists following correction of extra-cardiac issues, will plan for PPM implantation Supportive care MARIANN TIRADO MD 04/19/21 1722: CARDIAC CONSULT ASSESSMENT/PLAN ASSESSMENT/PLAN The patient was seen and interviewed as well as examined at the bedside. The chart was reviewed. The case was discussed. Agree with the plan of care. NOEMI BARR APRN Apr 19, 2021 11:37 MARIANN TIRADO MD Apr 19, 2021 17:22
--- NOTE | 2021-04-19 11:41 | CARD ---
MR#: [id number] Date of Study: 04/19/2021 Ordering Physician: ANITHA VALENTINE, Referring Physician: ANITHA VALENTINE Tech: RT Ulises(R) APPROVED REPORT Technologist: RT Ulises(R) Nurse: Marjorie Shannon RN Procedure(s) performed: Temporary transvenous pacemaker insertion MODERATE SEDATION TIME: 55 MINS FLUORO TIME: 7.2 MIN DOSE: 15.1 GYCM2 INDICATION The indication(s) include : Complete heart block with severe symptomatic bradycardia. CASE TECHNIQUE IV conscious sedation was used throughout procedure with appropriate monitoring and was performed in the presence of a registered nurse who was an independent trained observer other than the physician p erforming the procedure. During this case, Fluoroscopy and low osmolar contrast were used for imaging . Specimen(s) Removed: No Estimated Blood loss: 10 cc's. PROCEDURE NARRATIVE Patient was unable to give consent since he was obtunded, on BiPAP and he did not have any family maryjo und to give informed consent. Due to medical necessity, after conferring with primary service, we de cided to take the patient emergently to the cardiac Marketing Communications Leader for placement of temporary transvenous p acemaker for third-degree AV block and severe bradycardia with hemodynamic compromise. Patient broug ht to the cardiac Marketing Communications Leader and his right neck and groin were prepped and draped in the usual fashion. 5 cc of 2% lidocaine was infiltrated in the skin and subcutaneous tissues of the right neck for loc al anesthesia. Under vascular testing guidance, access was obtained in the right internal jugular ve in but several attempts to advance wires across the brachiocephalic vein were unsuccessful despite co nfirmation of intraluminal position of the wire and ultrasound. Hence we decided to place a temporar y transvenous pacemaker through right common femoral vein access. 10 cc of 2% lidocaine was infiltrated into the skin and subcutaneous tissues of the right groin for l ocal anesthesia. Venous access was obtained in the right common femoral vein and 6 [place] sheath was inserted. A temporary transvenous pacemaker wire was then advanced under fluoroscopy guidance and t he tip was positioned in the right ventricular apex. The pacemaker battery was then turned on and hi s rate was set at 80 bpm at an output of 5 V. Since he was hemodynamically unstable on presentation, we decided to place arterial line. Arterial access was obtained in the right common femoral artery and a 5 [place] sheath was inserted. Patient tolerated the procedure well. There were no immediate c omplications from the procedure. Conclusion Successful insertion of temporary transvenous pacemaker for complete AV block and symptomatic bradyca rdthony Signed by : Anitha Valentine, Electronically Approved : 04/19/2021 11:41:11
--- NOTE | 2021-04-19 12:46 | PDOC2 ---
CONSULT Date of Consult Date of Consult DATE: 04/19/21 TIME: 12:32 Reason for Consult Reason for Consult: ESRD Identification/Chief Complaint Chief Complaint Shortness of breath Source Source: Chart review History of Present Illness Reason for Visit: Patient is a 55yo M w/ PMHx CHF, COPD, HTN, ESRD on HD who presents to the emergency room complaining of dizziness while carrying a box at home. Patient denied any chest pains, No fever, No congestion He reported feelingshort of breath and feels as if he is going to pass out. No syncopal episodes. He was hypoxic and confused in ED, initially attempted to get out of bed with significant O2 desaturations, requiring BIPAP. Currently requiring BiPAP, s/p Temp pacemaker . History Obtained from chart review . No reported N/V/D. Last Dialysis was Monday , no missed treatments Chest radiograph with patchy bilateral parenchymal opacities. Initial EKG third-degree heart block rate of [address] on external pacing, dopamine infusion Past Medical History Cardiovascular: CHF, HTN, Pulmonary hypertension, Other (pericaridal effusion ) Pulmonary: COPD CENTRAL NERVOUS SYSTEM: Other GI: GI bleed Heme/Onc: Anemia NOS Hepatobiliary: Hep A/B/C Psych: No pertinent hx Rheumatologic: No pertinent hx Infectious disease: Other Renal/: Chronic renal failure (ESRD ), Benign prostatic enlarg., Other (urinary retention ) Endocrine: Other (hypoparathyroid) Past Surgical History Past Surgical History: Hernia Repair, Other (AV shunt, subxiphoid pericardial window ) Family History Family History: Heart Disease Social History No ALCOHOL: none Drugs: None Lives: with Family Current Problem List Problem List Problems Medical Problems: (1) Community acquired pneumonia Status: Acute (2) ESRD (end stage renal disease) Status: Acute (3) Third degree heart block Status: Acute Current Medications Current Medications Current Medications Atropine Sulfate (ATROPINE 0.5mg SYRINGE) 0.5 mg 1X ONCE IV Last administered on 04/18/21at 23:38; Start 04/19/21 at 00:00; Stop 04/19/21 at 00:01; Status DC Dopamine HCl/ Dextrose 250 ml @ 13.125 mls/ hr 1X ONCE IV Last administered on 04/18/21at 23:49; Start 04/19/21 at 00:00; Stop 04/19/21 at 10:30; Status DC Sodium Chloride 500 ml @ 250 mls/hr 1X ONCE IV Last administered on 04/18/21at 23:54; Start 04/19/21 at 00:00; Stop 04/19/21 at 01:59; Status DC Ceftriaxone Sodium (Rocephin) 1 gm 1X ONCE IVP ; Start 04/19/21 at 00:30; Stop 04/19/21 at 00:29; Status DC Azithromycin 250 ml @ 250 mls/hr 1X ONCE IV ; Start 04/19/21 at 00:30; Stop 04/19/21 at 00:29; Status DC Piperacillin Sod/ Tazobactam Sod (Zosyn Per Pharmacy) 1 each PRN DAILY PRN MC SEE COMMENTS; Start 04/19/21 at 00:30 Piperacillin Sod/ Tazobactam Sod 2.25 gm/Sodium Chloride 50 ml @ 100 mls/hr Q8HRS IV Last administered on 04/19/21at 06:00; Start 04/19/21 at 00:30 Albumin Human 250 ml @ 62.5 mls/hr 1X ONCE IV Last administered on 04/19/21at 01:37; Start 04/19/21 at 02:00; Stop 04/19/21 at 05:59; Status DC Albumin Human 100 ml @ 100 mls/hr 1X ONCE IV Last administered on 04/19/21at 03:06; Start 04/19/21 at 03:30; Stop 04/19/21 at 04:29; Status DC Ondansetron HCl (Zofran) 4 mg PRN Q6HRS PRN IVP NAUSEA/VOMITING 1ST CHOICE Last administered on 04/19/21at 03:07; Start 04/19/21 at 03:00; Stop 04/19/21 at 07:11; Status DC Ondansetron HCl (Zofran) 4 mg STK-MED ONCE .ROUTE ; Start 04/19/21 at 02:59; Stop 04/19/21 at 02:59; Status DC Sodium Chloride 500 ml @ 250 mls/hr 1X ONCE IV Last administered on 04/19/21at 04:29; Start 04/19/21 at 04:00; Stop 04/19/21 at 05:59; Status DC Lorazepam (Ativan Inj) 2 mg STK-MED ONCE .ROUTE ; Start 04/19/21 at 05:41; Stop 04/19/21 at 05:41; Status DC Lorazepam (Ativan Inj) 1 mg 1X ONCE IVP Last administered on 04/19/21at 05:52; Start 04/19/21 at 06:30; Stop 04/19/21 at 06:31; Status DC Ondansetron HCl (Zofran) 4 mg PRN Q4HRS PRN IVP NAUSEA/VOMITING Last admin istered on 04/19/21at 07:15; Start 04/19/21 at 07:00 Guaifenesin (Robitussin Dm) 10 ml PRN Q6HRS PRN PO COUGH; Start 04/19/21 at 07:00 Heparin Sodium (Porcine) (Heparin Sodium) 5,000 unit Q8HRS SQ ; Start 04/19/21 at 14:00 Hydralazine HCl (Apresoline Inj) 10 mg PRN Q4HRS PRN IVP ELEVATED BP, SEE COMMENTS; Start 04/19/21 at 07:00 Acetaminophen (Tylenol) 650 mg PRN Q6HRS PRN PO MILD PAIN / TEMP > 100.3'F; Start 04/19/21 at 07:00 Fentanyl Citrate (Fentanyl 2ml Vial) 25 mcg PRN Q3HRS PRN IVP SEVERE PAIN 7-10 Last administered on 04/19/21at 07:50; Start 04/19/21 at 07:00 Sevelamer Carbonate (Renvela) 1,600 mg TIDWMEALS PO ; Start 04/19/21 at 08:00 Lorazepam (Ativan Inj) 1 mg PRN Q4HRS PRN IVP ANXIETY / AGITATION Last administered on 04/19/21at 07:51; Start 04/19/21 at 07:45 Dopamine HCl/ Dextrose 250 ml @ 13.988 mls/ hr CONT PRN IV SEE I/O RECORD Last administered on 04/19/21at 09:07; Start 04/19/21 at 09:00 Lidocaine HCl (Lidocaine 1% 20ml Vial) 20 ml STK-MED ONCE .ROUTE ; Start 04/19/21 at 09:01; Stop 04/19/21 at 09:02; Status DC Heparin Sodium/ Sodium Chloride 500 ml @ As Directed STK-MED ONCE .ROUTE ; Start 04/19/21 at 09:02; Stop 04/19/21 at 09:02; Status DC Heparin Sodium/ Sodium Chloride (HEPARIN for ARTERIAL LINE FLUSH) 1,000 unit 1X ONCE IART Last administered on 04/19/21at 09:15; Start 04/19/21 at 09:15; Stop 04/19/21 at 09:30; Status DC Lidocaine HCl (Lidocaine 1% 20ml Vial) 20 ml 1X ONCE INJ Last administered on 04/19/21at 09:46; Start 04/19/21 at 09:15; Stop 04/19/21 at 09:30; Status DC Fentanyl Citrate (Fentanyl 2ml Vial) 100 mcg PRN Q2HR PRN IVP PAIN Last administered on 04/19/21at 09:15; Start 04/19/21 at 09:15 Lorazepam (Ativan Inj) 2 mg PRN Q2HRS PRN IVP ANXIETY / AGITATION Last administered on 04/19/21at 09:14; Start 04/19/21 at 09:15 Norepinephrine Bitartrate 8 mg/ Dextrose 258 ml @ 14.435 mls/ hr CONT PRN IV PER PROTOCOL; Start 04/19/21 at 10:15 Epinephrine HCl (Adrenalin) 1 mg STK-MED ONCE .ROUTE ; Start 04/19/21 at 10:18; Stop 04/19/21 at 10:18; Status DC Heparin Sodium/ Sodium Chloride 500 ml @ As Directed STK-MED ONCE .ROUTE ; Start 04/19/21 at 10:30; Stop 04/19/21 at 10:30; Status DC Iodixanol (Visipaque 320) 100 ml STK-MED ONCE .ROUTE ; Start 04/19/21 at 10:32; Stop 04/19/21 at 10:32; Status DC Midazolam HCl (Versed) 2 mg STK-MED ONCE .ROUTE ; Start 04/19/21 at 10:34; Stop 04/19/21 at 10:34; Status DC Fentanyl Citrate (Fentanyl 2ml Vial) 100 mcg STK-MED ONCE .ROUTE ; Start 04/19/21 at 10:34; Stop 04/19/21 at 10:35; Status DC Heparin Sodium/ Sodium Chloride 500 ml @ As Directed STK-MED ONCE .ROUTE ; Start 04/19/21 at 10:44; Stop 04/19/21 at 10:44; Status DC Midazolam HCl (Versed) 2 mg 1X ONCE IV Last administered on 04/19/21at 11:13; Start 04/19/21 at 11:00; Stop 04/19/21 at 11:02; Status DC Fentanyl Citrate (Fentanyl 2ml Vial) 100 mcg 1X ONCE IV Last administered on 04/19/21at 11:13; Start 04/19/21 at 11:00; Stop 04/19/21 at 11:02; Status DC Epinephrine HCl (EPINEPHrine SYRINGE) 0.5 mg 1X ONCE IV Last administered on 04/19/21at 10:17; Start 04/19/21 at 10:17; Stop 04/19/21 at 11:02; Status DC Active Scripts Active Reported Tums (Calcium Carbonate) 200 Mg Tab.chew 400 Mg PO HS Sensipar (Cinacalcet Hcl) 60 Mg Tablet 1 Tab PO DAILY 30 Days Ferric Citrate 210 Mg Tablet 2 Tab PO TID 30 Days Lasix (Furosemide) 40 Mg Tablet 40 Mg PO BID Renagel (Sevelamer Hcl) 800 Mg Tablet 2 Tab PO TIDWMEALS Kapspargo Sprinkle (Metoprolol Succinate) 50 Mg Cap.spr.24 50 Mg PO DAILY Allergies Allergies: Coded Allergies: No Known Drug Allergies (Unverified , 02/17/21) ROS Review of System Unable to Obtain, patient on BiPap Sedated for Temp Pacemaker Physical Exam Vital Signs Vital Signs Date Time Temp Pulse Resp B/P (MAP) Pulse Ox O2 Delivery O2 Flow Rate FiO2 04/19/21 11:30 100 BiPAP/CPAP 04/19/21 11:13 21 04/19/21 10:57 70 04/19/21 06:03 112/50 (70) 04/19/21 05:18 13.0 04/18/21 23:14 97.6 97.6 Assessment & Plan ESRD - On HD TTS, last dialysis was Monday, Hypoxic at presentation, requiring BiPAP . No missed treatments . CxR reported Pneumonia. K normal; UF only 3-4 Kg as tolerated as BP Low, currently on Dopamine. May need Levophed.Monitor Ac Resp Failure - CxR Patchy bilateral parenchymal opacities may represent multifocal consolidative process such as pneumonia Dizziness; EKG with complete heart block; on BB at home- Dopamine and s/p temp pacemaker Encephalopathy; multifactorial Labs Labs Laboratory Tests Test 04/18/21 23:20 04/19/21 00:05 04/19/21 06:22 04/19/21 08:55 White Blood Count 13.4 x10^3/uL (4.0-11.0) Red Blood Count 3.63 x10^6/uL (4.30-5.70) Hemoglobin 11.6 g/dL (13.0-17.5) Hematocrit 35.0 % (39.0-53.0) Mean Corpuscular Volume 96 fL (79-100) Mean Corpuscular Hemoglobin 32 pg (25-35) Mean Corpuscular Hemoglobin Concent 33 g/dL (31-37) Red Cell Distribution Width 15.7 % (11.5-14.5) Platelet Count 330 x10^3/uL (140-400) Neutrophils (%) (Auto) 61 % (31-73) Lymphocytes (%) (Auto) 18 % (24-48) Monocytes (%) (Auto) 12 % (0-9) Eosinophils (%) (Auto) 8 % (0-3) Basophils (%) (Auto) 0 % (0-3) Neutrophils # (Auto) 8.2 x10^3/uL (1.8-7.7) Lymphocytes # (Auto) 2.5 x10^3/uL (1.0-4.8) Monocytes # (Auto) 1.6 x10^3/uL (0.0-1.1) Eosinophils # (Auto) 1.1 x10^3/uL (0.0-0.7) Basophils # (Auto) 0.0 x10^3/uL (0.0-0.2) Segmented Neutrophils % 67 % (35-66) Lymphocytes % 14 % (24-48) Monocytes % 9 % (0-10) Eosinophils % 9 % (0-5) Basophils % 1 % (0-3) Platelet Estimate Adequate (ADEQUATE) Polychromasia Slight Anisocytosis Slight Sodium Level 134 mmol/L (136-145) Potassium Level 5.1 mmol/L (3.5-5.1) Chloride Level 94 mmol/L (98-107) Carbon Dioxide Level 27 mmol/L (21-32) Anion Gap 13 (6-14) Blood Urea Nitrogen 62 mg/dL (8-26) Creatinine 8.5 mg/dL (0.7-1.3) Estimated GFR (Cockcroft-Gault) 6.5 BUN/Creatinine Ratio 7 (6-20) Glucose Level 120 mg/dL (70-99) Lactic Acid Level 0.9 mmol/L (0.4-2.0) Calcium Level 8.3 mg/dL (8.5-10.1) Phosphorus Level 9.5 mg/dL (2.6-4.7) Magnesium Level 1.9 mg/dL (1.8-2.4) Total Bilirubin 0.3 mg/dL (0.2-1.0) Aspartate Amino Transf (AST/SGOT) 50 U/L (15-37) Alanine Aminotransferase (ALT/SGPT) 68 U/L (16-63) Alkaline Phosphatase 295 U/L (46-116) Creatine Kinase 92 U/L (39-308) Creatine Kinase MB (Mass) 2.7 ng/mL (0.0-3.6) Creatine Kinase MB Relative Index 2.9 % (0-4) Troponin I Quantitative < 0.017 ng/mL (0.000-0.055) OZ-Jtz-H-Type Natriuretic Peptide > 55844 pg/mL (0-124) Total Protein 8.3 g/dL (6.4-8.2) Albumin 3.0 g/dL (3.4-5.0) Albumin/Globulin Ratio 0.6 (1.0-1.7) SARS-CoV-2 Antigen (Rapid) Negative (NEGATIVE) O2 Saturation 99 % (92-99) Arterial Blood pH 7.20 (7.35-7.45) Arterial Blood pCO2 at Patient Temp 48 mmHg (35-46) Arterial Blood pO2 at Patient Temp 203 mmHg (75-108) Arterial Blood HCO3 18 mmol/L (21-28) Arterial Blood Base Excess -10 mmol/L (-3-3) FiO2 100 Prothrombin Time 14.4 SEC (11.7-14.0) Prothromb Time International Ratio 1.1 (0.8-1.1) Activated Partial Thromboplast Time 35 SEC (24-38) Laboratory Tests Test 04/18/21 23:20 04/19/21 00:05 04/19/21 06:22 04/19/21 08:55 White Blood Count 13.4 x10^3/uL (4.0-11.0) Red Blood Count 3.63 x10^6/uL (4.30-5.70) Hemoglobin 11.6 g/dL (13.0-17.5) Hematocrit 35.0 % (39.0-53.0) Mean Corpuscular Volume 96 fL (79-100) Mean Corpuscular Hemoglobin 32 pg (25-35) Mean Corpuscular Hemoglobin Concent 33 g/dL (31-37) Red Cell Distribution Width 15.7 % (11.5-14.5) Platelet Count 330 x10^3/uL (140-400) Neutrophils (%) (Auto) 61 % (31-73) Lymphocytes (%) (Auto) 18 % (24-48) Monocytes (%) (Auto) 12 % (0-9) Eosinophils (%) (Auto) 8 % (0-3) Basophils (%) (Auto) 0 % (0-3) Neutrophils # (Auto) 8.2 x10^3/uL (1.8-7.7) Lymphocytes # (Auto) 2.5 x10^3/uL (1.0-4.8) Monocytes # (Auto) 1.6 x10^3/uL (0.0-1.1) Eosinophils # (Auto) 1.1 x10^3/uL (0.0-0.7) Basophils # (Auto) 0.0 x10^3/uL (0.0-0.2) Segmented Neutrophils % 67 % (35-66) Lymphocytes % 14 % (24-48) Monocytes % 9 % (0-10) Eosinophils % 9 % (0-5) Basophils % 1 % (0-3) Platelet Estimate Adequate (ADEQUATE) Polychromasia Slight Anisocytosis Slight Sodium Level 134 mmol/L (136-145) Potassium Level 5.1 mmol/L (3.5-5.1) Chloride Level 94 mmol/L (98-107) Carbon Dioxide Level 27 mmol/L (21-32) Anion Gap 13 (6-14) Blood Urea Nitrogen 62 mg/dL (8-26) Creatinine 8.5 mg/dL (0.7-1.3) Estimated GFR (Cockcroft-Gault) 6.5 BUN/Creatinine Ratio 7 (6-20) Glucose Level 120 mg/dL (70-99) Lactic Acid Level 0.9 mmol/L (0.4-2.0) Calcium Level 8.3 mg/dL (8.5-10.1) Phosphorus Level 9.5 mg/dL (2.6-4.7) Magnesium Level 1.9 mg/dL (1.8-2.4) Total Bilirubin 0.3 mg/dL (0.2-1.0) Aspartate Amino Transf (AST/SGOT) 50 U/L (15-37) Alanine Aminotransferase (ALT/SGPT) 68 U/L (16-63) Alkaline Phosphatase 295 U/L (46-116) Creatine Kinase 92 U/L (39-308) Creatine Kinase MB (Mass) 2.7 ng/mL (0.0-3.6) Creatine Kinase MB Relative Index 2.9 % (0-4) Troponin I Quantitative < 0.017 ng/mL (0.000-0.055) KC-Oyg-C-Type Natriuretic Peptide > 38185 pg/mL (0-124) Total Protein 8.3 g/dL (6.4-8.2) Albumin 3.0 g/dL (3.4-5.0) Albumin/Globulin Ratio 0.6 (1.0-1.7) SARS-CoV-2 Antigen (Rapid) Negative (NEGATIVE) O2 Saturation 99 % (92-99) Arterial Blood pH 7.20 (7.35-7.45) Arterial Blood pCO2 at Patient Temp 48 mmHg (35-46) Arterial Blood pO2 at Patient Temp 203 mmHg (75-108) Arterial Blood HCO3 18 mmol/L (21-28) Arterial Blood Base Excess -10 mmol/L (-3-3) FiO2 100 Prothrombin Time 14.4 SEC (11.7-14.0) Prothromb Time International Ratio 1.1 (0.8-1.1) Activated Partial Thromboplast Time 35 SEC (24-38) Review All relevant outside records, renal labs, imaging studies, telemetry/EKG's were reviewed. Images Images CxR 1. Patchy bilateral parenchymal opacities may represent multifocal consolidative process such as pneumonia. MARIYA NORMAN MD Apr 19, 2021 12:46
[2021-04-19] MEDS ORDERED: DIALYSIS PATIENT. MC PRN ×2 (14:00→18:15)
[2021-04-19] MEDS ORDERED: ALBUMIN HUMAN 25% 200 ML IV PRN (14:00)
--- NOTE | 2021-04-19 16:37 | PDOC ---
PULMONARY PROGRESS NOTES DATE: 04/19/21 TIME: 16:35 Vitals Vital Signs Date Time Temp Pulse Resp B/P (MAP) Pulse Ox O2 Delivery O2 Flow Rate FiO2 04/19/21 15:40 96 BiPAP/CPAP 04/19/21 15:30 04/19/21 15:00 71 16 04/19/21 12:00 98.4 98.4 04/19/21 05:18 13.0 General: Alert, No acute distress HEENT: Other Lungs: Clear Cardiovascular: S1, S2 Abdomen: Soft, Non-tender Extremities: No Edema Labs Laboratory Tests Test 04/18/21 23:20 04/19/21 00:05 04/19/21 06:22 04/19/21 08:55 White Blood Count 13.4 x10^3/uL (4.0-11.0) Red Blood Count 3.63 x10^6/uL (4.30-5.70) Hemoglobin 11.6 g/dL (13.0-17.5) Hematocrit 35.0 % (39.0-53.0) Mean Corpuscular Volume 96 fL (79-100) Mean Corpuscular Hemoglobin 32 pg (25-35) Mean Corpuscular Hemoglobin Concent 33 g/dL (31-37) Red Cell Distribution Width 15.7 % (11.5-14.5) Platelet Count 330 x10^3/uL (140-400) Neutrophils (%) (Auto) 61 % (31-73) Lymphocytes (%) (Auto) 18 % (24-48) Monocytes (%) (Auto) 12 % (0-9) Eosinophils (%) (Auto) 8 % (0-3) Basophils (%) (Auto) 0 % (0-3) Neutrophils # (Auto) 8.2 x10^3/uL (1.8-7.7) Lymphocytes # (Auto) 2.5 x10^3/uL (1.0-4.8) Monocytes # (Auto) 1.6 x10^3/uL (0.0-1.1) Eosinophils # (Auto) 1.1 x10^3/uL (0.0-0.7) Basophils # (Auto) 0.0 x10^3/uL (0.0-0.2) Segmented Neutrophils % 67 % (35-66) Lymphocytes % 14 % (24-48) Monocytes % 9 % (0-10) Eosinophils % 9 % (0-5) Basophils % 1 % (0-3) Platelet Estimate Adequate (ADEQUATE) Polychromasia Slight Anisocytosis Slight Sodium Level 134 mmol/L (136-145) Potassium Level 5.1 mmol/L (3.5-5.1) Chloride Level 94 mmol/L (98-107) Carbon Dioxide Level 27 mmol/L (21-32) Anion Gap 13 (6-14) Blood Urea Nitrogen 62 mg/dL (8-26) Creatinine 8.5 mg/dL (0.7-1.3) Estimated GFR (Cockcroft-Gault) 6.5 BUN/Creatinine Ratio 7 (6-20) Glucose Level 120 mg/dL (70-99) Lactic Acid Level 0.9 mmol/L (0.4-2.0) Calcium Level 8.3 mg/dL (8.5-10.1) Phosphorus Level 9.5 mg/dL (2.6-4.7) Magnesium Level 1.9 mg/dL (1.8-2.4) Total Bilirubin 0.3 mg/dL (0.2-1.0) Aspartate Amino Transf (AST/SGOT) 50 U/L (15-37) Alanine Aminotransferase (ALT/SGPT) 68 U/L (16-63) Alkaline Phosphatase 295 U/L (46-116) Creatine Kinase 92 U/L (39-308) Creatine Kinase MB (Mass) 2.7 ng/mL (0.0-3.6) Creatine Kinase MB Relative Index 2.9 % (0-4) Troponin I Quantitative < 0.017 ng/mL (0.000-0.055) BS-Efa-E-Type Natriuretic Peptide > 66618 pg/mL (0-124) Total Protein 8.3 g/dL (6.4-8.2) Albumin 3.0 g/dL (3.4-5.0) Albumin/Globulin Ratio 0.6 (1.0-1.7) SARS-CoV-2 RNA (SHIRA) Invalid (Negative) SARS-CoV-2 Antigen (Rapid) Negative (NEGATIVE) O2 Saturation 99 % (92-99) Arterial Blood pH 7.20 (7.35-7.45) Arterial Blood pCO2 at Patient Temp 48 mmHg (35-46) Arterial Blood pO2 at Patient Temp 203 mmHg (75-108) Arterial Blood HCO3 18 mmol/L (21-28) Arterial Blood Base Excess -10 mmol/L (-3-3) FiO2 100 Prothrombin Time 14.4 SEC (11.7-14.0) Prothromb Time International Ratio 1.1 (0.8-1.1) Activated Partial Thromboplast Time 35 SEC (24-38) Thyroid Stimulating Hormone (TSH) 5.846 uIU/mL (0.358-3.74) Hepatitis B Surface Antigen Nonreactive (Nonreactive) Hepatitis B Surface Antibody Nonreactive Laboratory Tests Test 04/18/21 23:20 04/19/21 00:05 04/19/21 06:22 04/19/21 08:55 White Blood Count 13.4 x10^3/uL (4.0-11.0) Red Blood Count 3.63 x10^6/uL (4.30-5.70) Hemoglobin 11.6 g/dL (13.0-17.5) Hematocrit 35.0 % (39.0-53.0) Mean Corpuscular Volume 96 fL (79-100) Mean Corpuscular Hemoglobin 32 pg (25-35) Mean Corpuscular Hemoglobin Concent 33 g/dL (31-37) Red Cell Distribution Width 15.7 % (11.5-14.5) Platelet Count 330 x10^3/uL (140-400) Neutrophils (%) (Auto) 61 % (31-73) Lymphocytes (%) (Auto) 18 % (24-48) Monocytes (%) (Auto) 12 % (0-9) Eosinophils (%) (Auto) 8 % (0-3) Basophils (%) (Auto) 0 % (0-3) Neutrophils # (Auto) 8.2 x10^3/uL (1.8-7.7) Lymphocytes # (Auto) 2.5 x10^3/uL (1.0-4.8) Monocytes # (Auto) 1.6 x10^3/uL (0.0-1.1) Eosinophils # (Auto) 1.1 x10^3/uL (0.0-0.7) Basophils # (Auto) 0.0 x10^3/uL (0.0-0.2) Segmented Neutrophils % 67 % (35-66) Lymphocytes % 14 % (24-48) Monocytes % 9 % (0-10) Eosinophils % 9 % (0-5) Basophils % 1 % (0-3) Platelet Estimate Adequate (ADEQUATE) Polychromasia Slight Anisocytosis Slight Sodium Level 134 mmol/L (136-145) Potassium Level 5.1 mmol/L (3.5-5.1) Chloride Level 94 mmol/L (98-107) Carbon Dioxide Level 27 mmol/L (21-32) Anion Gap 13 (6-14) Blood Urea Nitrogen 62 mg/dL (8-26) Creatinine 8.5 mg/dL (0.7-1.3) Estimated GFR (Cockcroft-Gault) 6.5 BUN/Creatinine Ratio 7 (6-20) Glucose Level 120 mg/dL (70-99) Lactic Acid Level 0.9 mmol/L (0.4-2.0) Calcium Level 8.3 mg/dL (8.5-10.1) Phosphorus Level 9.5 mg/dL (2.6-4.7) Magnesium Level 1.9 mg/dL (1.8-2.4) Total Bilirubin 0.3 mg/dL (0.2-1.0) Aspartate Amino Transf (AST/SGOT) 50 U/L (15-37) Alanine Aminotransferase (ALT/SGPT) 68 U/L (16-63) Alkaline Phosphatase 295 U/L (46-116) Creatine Kinase 92 U/L (39-308) Creatine Kinase MB (Mass) 2.7 ng/mL (0.0-3.6) Creatine Kinase MB Relative Index 2.9 % (0-4) Troponin I Quantitative < 0.017 ng/mL (0.000-0.055) ME-Nfk-L-Type Natriuretic Peptide > 79564 pg/mL (0-124) Total Protein 8.3 g/dL (6.4-8.2) Albumin 3.0 g/dL (3.4-5.0) Albumin/Globulin Ratio 0.6 (1.0-1.7) SARS-CoV-2 RNA (SHIRA) Invalid (Negative) SARS-CoV-2 Antigen (Rapid) Negative (NEGATIVE) O2 Saturation 99 % (92-99) Arterial Blood pH 7.20 (7.35-7.45) Arterial Blood pCO2 at Patient Temp 48 mmHg (35-46) Arterial Blood pO2 at Patient Temp 203 mmHg (75-108) Arterial Blood HCO3 18 mmol/L (21-28) Arterial Blood Base Excess -10 mmol/L (-3-3) FiO2 100 Prothrombin Time 14.4 SEC (11.7-14.0) Prothromb Time International Ratio 1.1 (0.8-1.1) Activated Partial Thromboplast Time 35 SEC (24-38) Thyroid Stimulating Hormone (TSH) 5.846 uIU/mL (0.358-3.74) Hepatitis B Surface Antigen Nonreactive (Nonreactive) Hepatitis B Surface Antibody Nonreactive Medications Active Scripts Medications Dose Route/Sig Max Daily Dose Days Date Category Tums (Calcium Carbonate) 200 Mg Tab.chew 400 Mg PO HS 04/19/21 Reported Sensipar (Cinacalcet Hcl) 60 Mg Tablet 1 Tab PO DAILY 30 04/19/21 Reported Ferric Citrate 210 Mg Tablet 2 Tab PO TID 30 04/19/21 Reported Lasix (Furosemide) 40 Mg Tablet 40 Mg PO BID 04/19/21 Reported Renagel (Sevelamer Hcl) 800 Mg Tablet 2 Tab PO TIDWMEALS 01/18/21 Reported Kapspargo Sprinkle (Metoprolol Succinate) 50 Mg Cap.spr.24 50 Mg PO DAILY 01/18/21 Reported Impression . Full consult dictated Acute hypoxemic respiratory failure multifactorial Possible COVID-19 Possible pneumonia Pulmonary edema Third-degree heart block status post temporary pacer CAYDEN MERRILL MD Apr 19, 2021 16:37
[2021-04-19] MEDS: HEPARIN for SUB-Q USE 5,000 UNIT/ML VIAL. SQ SCH ×2 (16:57→22:11)
[2021-04-19 17:08] LABS: CALCIUM 7.9 mg/dL (8.5-10.1); CREATININE 9.1 mg/dL (0.7-1.3); MAGNESIUM 1.9 mg/dL (1.8-2.4)
--- NOTE | 2021-04-19 17:40 | NUR ---
Patient unstable, Levophed titrated rapidly to 0.3 during the start of dialysis.
[2021-04-19] MEDS: NOREPINEPHRINE VIAL 8 MG in IV DEXTROSE 5% 250 ML IV PRN (18:26)
--- NOTE | 2021-04-19 21:17 | CONS ---
DATE OF CONSULTATION: 04/19/2021 ATTENDING PHYSICIAN: Dr. Bradley Rodríguez. REASON FOR CONSULTATION: The patient is seen in pulmonary consultation at the request of Dr. Rodríguez for hypoxemia, respiratory failure. Arterial blood gas revealing a pH of 7.20, PaCO2 of 48, pO2 of 203 on 100% nonrebreather. HISTORY OF PRESENT ILLNESS: The patient is a 55-year-old who presented to the Emergency Room with dizziness and almost passed out. He was also hypoxic. He was noted to have a complete heart block. A transcutaneous pacemaker was implanted. He was started on dopamine. He has been seen by Cardiology. Temporary pacemaker was placed today. He was also hypoxic. An arterial blood gas was obtained and I was asked to see him in consultation. In addition, he had metabolic acidosis. He is normally on hemodialysis, noncompliant with hemodialysis. He has been seen by Nephrology. His x-ray was reviewed. There were bilateral pulmonary infiltrates with some consolidation. Labs revealed a SARS-CoV-2 rapid test, which was negative. His SHIRA was invalid. Chemistries were noted. BUN and creatinine were elevated. Sodium was low. The patient is currently receiving IV dopamine. He is on norepinephrine. He is on Zosyn. PAST MEDICAL HISTORY: Remarkable for chronic heart failure, hypertension, pulmonary hypertension, COPD, end-stage renal disease, on hemodialysis; BPH, anemia. PAST SURGICAL HISTORY: Previous AV shunt, hernia repair. FAMILY HISTORY: Heart disease. SOCIAL HISTORY: He currently is not smoking. REVIEW OF SYSTEMS: Unobtainable secondary to patient's condition. PHYSICAL EXAMINATION: VITAL SIGNS: He has a T-max of 98.4. HEENT: Eyes, the sclerae were nonicteric. NECK: Jugular venous distention was not elevated. No lymphadenopathy. CHEST: Full expansion. LUNGS: Crackles throughout both lung payne. CARDIOVASCULAR: Regular rate and rhythm with S1, S2, no S3. ABDOMEN: Soft, nontender, nondistended. EXTREMITIES: No clubbing, cyanosis or edema. LABORATORY DATA: Chest x-ray reviewed. Labs as indicated above. IMPRESSION: 1. Acute hypoxemic respiratory failure, multifactorial. 2. Third-degree heart block, status post temporary pacemaker implantation. 3. Metabolic acidosis secondary to renal failure, possibly sepsis. 4. End-stage renal disease. 5. Abnormal x-ray revealing bilateral pulmonary infiltrates compatible with pneumonia, possibly COVID-19 or pulmonary edema. 6. Leukocytosis. 7. Secondary pulmonary hypertension. 8. Elevated liver function tests. 9. Toxic metabolic encephalopathy. PLAN: 1. Repeat SARS-CoV-[address]. [address] the patient in isolation. 3. Empiric antibiotics. 4. Follow cardiology input. 5. Continue Zosyn. I do appreciate the privilege in sharing in this patient's care. ALLAN DR: Juan TID: [id number]
--- NOTE | 2021-04-19 22:35 | NUR ---
Patient pulled BiPap mask off and shouted for help. Patient states he cannot tolerate pressure and noise from BiPap. Patient alert to person, place, and date. Placed on NRB mask, BiPap to standby.
[2021-04-20] VITALS (23 sets, daily range): BP systolic 101–138; BP diastolic 41–75
[2021-04-20] MEDS: NOREPINEPHRINE VIAL 8 MG in IV DEXTROSE 5% 250 ML IV PRN ×3 (03:17→16:38)
[2021-04-20 05:36] LABS: BASO # 0.1 x10^3/uL (0.0-0.2); BASO % 1 % (0-3); EOS # 0.2 x10^3/uL (0.0-0.7); EOS % 1 % (0-3); HEMATOCRIT 33.5 % (39.0-53.0); HEMOGLOBIN 11.1 g/dL (13.0-17.5); LYMPH # 0.9 x10^3/uL (1.0-4.8); LYMPH % 4 % (24-48); MEAN CORPUSCULAR HEMOGLOBIN 32 pg (25-35); MEAN CORPUSCULAR HGB CONC 33 g/dL (31-37); MEAN CORPUSCULAR VOLUME 96 fL (79-100); MONO # 1.7 x10^3/uL (0.0-1.1); MONO % 8 % (0-9); NEUT # 18.5 x10^3/uL (1.8-7.7); NEUT % 87 % (31-73); PLATELET COUNT 227 x10^3/uL (140-400); RED CELL DISTRIBUTION WIDTH 15.9 % (11.5-14.5); WHITE BLOOD COUNT 21.4 x10^3/uL (4.0-11.0)
[2021-04-20 06:00] LABS: % BANDS 3 % (0-9); % BASOS 1 % (0-3); % EOS 1 % (0-5); % LYMPHS 3 % (24-48); % MONOS 4 % (0-10); % SEGS 88 % (35-66); PLT ESTIMATE ADEQUATE (ADEQUATE)
[2021-04-20] MEDS: PIPERACILLIN/TAZOBACTAM 2.25 GM in IV NORMAL SALINE 50ML 50 ML IV SCH ×3 (06:01→21:35)
[2021-04-20] MEDS: HEPARIN for SUB-Q USE 5,000 UNIT/ML VIAL. SQ SCH ×3 (06:03→21:38)
[2021-04-20 06:50] LABS: ALBUMIN 2.9 g/dL (3.4-5.0); CALCIUM 8.1 mg/dL (8.5-10.1); CREATININE 7.7 mg/dL (0.7-1.3); GFR 7.3; POTASSIUM 5.5 mmol/L (3.5-5.1)
[2021-04-20] MEDS ORDERED: IV NORMAL SALINE 1000ML BAG 1,000 ML IV PRN ×2 (08:00)
[2021-04-20] MEDS ORDERED: DIALYSIS PATIENT. MC PRN ×2 (08:00)
[2021-04-20] MEDS ORDERED: LIDOCAINE 1% PF 2 ML VIAL. INJ PRN (08:00)
[2021-04-20] MEDS ORDERED: ALBUMIN HUMAN 25% 200 ML IV PRN (08:00)
[2021-04-20] MEDS: SEVELAMER CARBONATE 800 MG TABLET. PO SCH ×3 (08:00→16:41)
[2021-04-20] MEDS: fentaNYL PF VIAL 100 MCG/2 ML VIAL IVP PRN ×2 (08:05→14:05)
[2021-04-20 08:46] LABS: BASE EXCESS ABG -2 mmol/L (-3-3); HCO3 ABG 25 mmol/L (21-28); PCO2 ABG 48 mmHg (35-46); PO2 ABG 110 mmHg (75-108); SAT O2 ABG 97 % (92-99)
[2021-04-20 08:59] LABS: FIO2 ABG 100/NRB
--- NOTE | 2021-04-20 09:01 | CONS ---
DATE OF CONSULTATION: 04/20/2021 REFERRING PHYSICIAN: Dr. Velásquez. REASON FOR CONSULTATION: Antibiotic management. HISTORY OF PRESENT ILLNESS: A 55-year-old male with history of end-stage renal disease, CHF, hypertension, COPD, GI bleed, anemia, benign prostatic hypertrophy, presented to the ER with complaints of dizziness, felt like he was passing out. He was hypoxic, confused. History obtained from chart and medical staff. The patient was found to have complete heart block. He was transcutaneous replaced. He underwent temporary pacemaker placement in the right groin yesterday. Currently, is on BiPAP, somewhat somnolent. The patient remains afebrile. White count was 13.4 on admission with 67% segments. SARS-COVID was negative. PCR is negative. He was hyponatremic with hyperkalemia. BNP of 25,000. INR of 1.1. Blood cultures were done which were negative. Chest x-ray on admission showed patchy bilateral parenchymal opacities, likely multifocal consolidative process such as pneumonia. PAST MEDICAL HISTORY: End-stage renal disease, on HD, CHF, hypertension, pulmonary hypertension, COPD, GI bleed, anemia, benign prostatic hypertrophy. PAST SURGICAL HISTORY: Hernia repair, AV shunt, subxiphoid pericardial window for pericardial effusion. FAMILY HISTORY: As per HPI. SOCIAL HISTORY: Nonsmoker, no alcohol, no drugs. CURRENT MEDICATIONS: Zosyn. Other medications reviewed in medication list. ALLERGIES: No known drug allergies. REVIEW OF SYSTEMS: Unable to obtain. PHYSICAL EXAMINATION: VITAL SIGNS: Temperature 98.7, pulse 80, respiratory rate 20, blood pressure 118/50, oxygen saturation 95% on nonrebreather. GENERAL: Somnolent. HEENT: Normocephalic, atraumatic. Anicteric. LUNGS: Crackles present, heart 100% paced. ABDOMEN: Soft, nontender, nondistended. EXTREMITIES: No edema, no cyanosis. GENITOURINARY: Right groin temporary pacemaker with line placed and looks clean. DERMATOLOGIC: Warm, dry, no generalized rash. NEUROLOGIC: Somnolent. PSYCHIATRIC: Unable to assess. MUSCULOSKELETAL: Changes suggestive of DJD. LABORATORY DATA: WBC 21.4, hemoglobin 11.1, hematocrit 33.5, platelets 227. Sodium 131, potassium 5.5, chloride 90, bicarbonate 25, BUN 56, creatinine 7.7. Troponin noted. TSH noted. Albumin 2.9. BNP 35,000. MICRO: Blood cultures negative. IMAGING: Chest x-ray as above. IMPRESSION: 1. Acute hypoxic respiratory failure, appears multifactorial. 2. Leukocytosis, appears reactive. 3. Complete heart block, status post temporary pacemaker placement, right groin, 04/19/2021. 4. End-stage renal disease, on hemodialysis. 5. Congestive heart failure. 6. Chronic obstructive pulmonary disease, pulmonary hypertension. 7. Benign prostatic hypertrophy. 8. Anemia. 9. History of pericardial effusion. 10. Hyponatremia. 11. Hyperkalemia. 12. Abnormal liver function tests. RECOMMENDATIONS: 1. Continue Zosyn, renal dosing. 2. Monitor labs and cultures. 3. Continue supportive care. 4. Temporary pacemaker, management as directed. 5. Maintain aspiration precaution. 6. Critically ill D/W RN Thank you for allowing me to participate in this patient's care. If you have any questions, do not hesitate to contact me. CCT: [address]: Neela TID: [id number] MTDD
--- NOTE | 2021-04-20 09:35 | PDOC ---
PULMONARY PROGRESS NOTES DATE: 04/20/21 TIME: 09:32 Subjective Could not tolerate BiPAP. Currently on a nonrebreather mask at 100% FiO2. Does not follow much commands. Had 3 L removed with hemodialysis yesterday. Currently on hemodialysis again Vitals Vital Signs Date Time Temp Pulse Resp B/P (MAP) Pulse Ox O2 Delivery O2 Flow Rate FiO2 04/20/21 08:05 20 95 NonRebreather Mask 04/20/21 07:00 80 118/50 (72) 15.0 04/20/21 04:00 98.7 98.7 General: No acute distress, Lethargic Lungs: Clear Cardiovascular: S1, S2 Abdomen: Soft, Non-tender Extremities: No Edema Labs Laboratory Tests Test 04/18/21 23:20 04/19/21 00:05 04/19/21 06:22 04/19/21 08:55 White Blood Count 13.4 x10^3/uL (4.0-11.0) Red Blood Count 3.63 x10^6/uL (4.30-5.70) Hemoglobin 11.6 g/dL (13.0-17.5) Hematocrit 35.0 % (39.0-53.0) Mean Corpuscular Volume 96 fL (79-100) Mean Corpuscular Hemoglobin 32 pg (25-35) Mean Corpuscular Hemoglobin Concent 33 g/dL (31-37) Red Cell Distribution Width 15.7 % (11.5-14.5) Platelet Count 330 x10^3/uL (140-400) Neutrophils (%) (Auto) 61 % (31-73) Lymphocytes (%) (Auto) 18 % (24-48) Monocytes (%) (Auto) 12 % (0-9) Eosinophils (%) (Auto) 8 % (0-3) Basophils (%) (Auto) 0 % (0-3) Neutrophils # (Auto) 8.2 x10^3/uL (1.8-7.7) Lymphocytes # (Auto) 2.5 x10^3/uL (1.0-4.8) Monocytes # (Auto) 1.6 x10^3/uL (0.0-1.1) Eosinophils # (Auto) 1.1 x10^3/uL (0.0-0.7) Basophils # (Auto) 0.0 x10^3/uL (0.0-0.2) Segmented Neutrophils % 67 % (35-66) Lymphocytes % 14 % (24-48) Monocytes % 9 % (0-10) Eosinophils % 9 % (0-5) Basophils % 1 % (0-3) Platelet Estimate Adequate (ADEQUATE) Polychromasia Slight Anisocytosis Slight Sodium Level 134 mmol/L (136-145) Potassium Level 5.1 mmol/L (3.5-5.1) Chloride Level 94 mmol/L (98-107) Carbon Dioxide Level 27 mmol/L (21-32) Anion Gap 13 (6-14) Blood Urea Nitrogen 62 mg/dL (8-26) Creatinine 8.5 mg/dL (0.7-1.3) Estimated GFR (Cockcroft-Gault) 6.5 BUN/Creatinine Ratio 7 (6-20) Glucose Level 120 mg/dL (70-99) Lactic Acid Level 0.9 mmol/L (0.4-2.0) Calcium Level 8.3 mg/dL (8.5-10.1) Phosphorus Level 9.5 mg/dL (2.6-4.7) Magnesium Level 1.9 mg/dL (1.8-2.4) Total Bilirubin 0.3 mg/dL (0.2-1.0) Aspartate Amino Transf (AST/SGOT) 50 U/L (15-37) Alanine Aminotransferase (ALT/SGPT) 68 U/L (16-63) Alkaline Phosphatase 295 U/L (46-116) Creatine Kinase 92 U/L (39-308) Creatine Kinase MB (Mass) 2.7 ng/mL (0.0-3.6) Creatine Kinase MB Relative Index 2.9 % (0-4) Troponin I Quantitative < 0.017 ng/mL (0.000-0.055) CO-Xkb-U-Type Natriuretic Peptide > 64288 pg/mL (0-124) Total Protein 8.3 g/dL (6.4-8.2) Albumin 3.0 g/dL (3.4-5.0) Albumin/Globulin Ratio 0.6 (1.0-1.7) Coronavirus (COVID-19)(PCR) Not detected (NOT DETECTD) SARS-CoV-2 RNA (SHIRA) Invalid (Negative) SARS-CoV-2 Antigen (Rapid) Negative (NEGATIVE) O2 Saturation 99 % (92-99) Arterial Blood pH 7.20 (7.35-7.45) Arterial Blood pCO2 at Patient Temp 48 mmHg (35-46) Arterial Blood pO2 at Patient Temp 203 mmHg (75-108) Arterial Blood HCO3 18 mmol/L (21-28) Arterial Blood Base Excess -10 mmol/L (-3-3) FiO2 100 Prothrombin Time 14.4 SEC (11.7-14.0) Prothromb Time International Ratio 1.1 (0.8-1.1) Activated Partial Thromboplast Time 35 SEC (24-38) Thyroid Stimulating Hormone (TSH) 5.846 uIU/mL (0.358-3.74) Hepatitis B Surface Antigen Nonreactive (Nonreactive) Hepatitis B Surface Antibody Nonreactive Test 04/19/21 15:40 04/20/21 05:25 04/20/21 08:00 Sodium Level 129 mmol/L (136-145) 131 mmol/L (136-145) Potassium Level 7.0 mmol/L (3.5-5.1) 5.5 mmol/L (3.5-5.1) Chloride Level 93 mmol/L (98-107) 90 mmol/L (98-107) Carbon Dioxide Level 21 mmol/L (21-32) 25 mmol/L (21-32) Anion Gap 15 (6-14) 16 (6-14) Blood Urea Nitrogen 70 mg/dL (8-26) 56 mg/dL (8-26) Creatinine 9.1 mg/dL (0.7-1.3) 7.7 mg/dL (0.7-1.3) Estimated GFR (Cockcroft-Gault) 6.0 7.3 Glucose Level 109 mg/dL (70-99) 124 mg/dL (70-99) Calcium Level 7.9 mg/dL (8.5-10.1) 8.1 mg/dL (8.5-10.1) Magnesium Level 1.9 mg/dL (1.8-2.4) Troponin I Quantitative 0.504 ng/mL (0.000-0.055) White Blood Count 21.4 x10^3/uL (4.0-11.0) Red Blood Count 3.50 x10^6/uL (4.30-5.70) Hemoglobin 11.1 g/dL (13.0-17.5) Hematocrit 33.5 % (39.0-53.0) Mean Corpuscular Volume 96 fL (79-100) Mean Corpuscular Hemoglobin 32 pg (25-35) Mean Corpuscular Hemoglobin Concent 33 g/dL (31-37) Red Cell Distribution Width 15.9 % (11.5-14.5) Platelet Count 227 x10^3/uL (140-400) Neutrophils (%) (Auto) 87 % (31-73) Lymphocytes (%) (Auto) 4 % (24-48) Monocytes (%) (Auto) 8 % (0-9) Eosinophils (%) (Auto) 1 % (0-3) Basophils (%) (Auto) 1 % (0-3) Neutrophils # (Auto) 18.5 x10^3/uL (1.8-7.7) Lymphocytes # (Auto) 0.9 x10^3/uL (1.0-4.8) Monocytes # (Auto) 1.7 x10^3/uL (0.0-1.1) Eosinophils # (Auto) 0.2 x10^3/uL (0.0-0.7) Basophils # (Auto) 0.1 x10^3/uL (0.0-0.2) Segmented Neutrophils % 88 % (35-66) Band Neutrophils % 3 % (0-9) Lymphocytes % 3 % (24-48) Monocytes % 4 % (0-10) Eosinophils % 1 % (0-5) Basophils % 1 % (0-3) Platelet Estimate Adequate (ADEQUATE) Phosphorus Level 10.0 mg/dL (2.6-4.7) Albumin 2.9 g/dL (3.4-5.0) O2 Saturation 97 % (92-99) Arterial Blood pH 7.33 (7.35-7.45) Arterial Blood pCO2 at Patient Temp 48 mmHg (35-46) Arterial Blood pO2 at Patient Temp 110 mmHg (75-108) Arterial Blood HCO3 25 mmol/L (21-28) Arterial Blood Base Excess -2 mmol/L (-3-3) FiO2 100/nrb Laboratory Tests Test 04/19/21 15:40 04/20/21 05:25 04/20/21 08:00 Sodium Level 129 mmol/L (136-145) 131 mmol/L (136-145) Potassium Level 7.0 mmol/L (3.5-5.1) 5.5 mmol/L (3.5-5.1) Chloride Level 93 mmol/L (98-107) 90 mmol/L (98-107) Carbon Dioxide Level 21 mmol/L (21-32) 25 mmol/L (21-32) Anion Gap 15 (6-14) 16 (6-14) Blood Urea Nitrogen 70 mg/dL (8-26) 56 mg/dL (8-26) Creatinine 9.1 mg/dL (0.7-1.3) 7.7 mg/dL (0.7-1.3) Estimated GFR (Cockcroft-Gault) 6.0 7.3 Glucose Level 109 mg/dL (70-99) 124 mg/dL (70-99) Calcium Level 7.9 mg/dL (8.5-10.1) 8.1 mg/dL (8.5-10.1) Magnesium Level 1.9 mg/dL (1.8-2.4) Troponin I Quantitative 0.504 ng/mL (0.000-0.055) White Blood Count 21.4 x10^3/uL (4.0-11.0) Red Blood Count 3.50 x10^6/uL (4.30-5.70) Hemoglobin 11.1 g/dL (13.0-17.5) Hematocrit 33.5 % (39.0-53.0) Mean Corpuscular Volume 96 fL (79-100) Mean Corpuscular Hemoglobin 32 pg (25-35) Mean Corpuscular Hemoglobin Concent 33 g/dL (31-37) Red Cell Distribution Width 15.9 % (11.5-14.5) Platelet Count 227 x10^3/uL (140-400) Neutrophils (%) (Auto) 87 % (31-73) Lymphocytes (%) (Auto) 4 % (24-48) Monocytes (%) (Auto) 8 % (0-9) Eosinophils (%) (Auto) 1 % (0-3) Basophils (%) (Auto) 1 % (0-3) Neutrophils # (Auto) 18.5 x10^3/uL (1.8-7.7) Lymphocytes # (Auto) 0.9 x10^3/uL (1.0-4.8) Monocytes # (Auto) 1.7 x10^3/uL (0.0-1.1) Eosinophils # (Auto) 0.2 x10^3/uL (0.0-0.7) Basophils # (Auto) 0.1 x10^3/uL (0.0-0.2) Segmented Neutrophils % 88 % (35-66) Band Neutrophils % 3 % (0-9) Lymphocytes % 3 % (24-48) Monocytes % 4 % (0-10) Eosinophils % 1 % (0-5) Basophils % 1 % (0-3) Platelet Estimate Adequate (ADEQUATE) Phosphorus Level 10.0 mg/dL (2.6-4.7) Albumin 2.9 g/dL (3.4-5.0) O2 Saturation 97 % (92-99) Arterial Blood pH 7.33 (7.35-7.45) Arterial Blood pCO2 at Patient Temp 48 mmHg (35-46) Arterial Blood pO2 at Patient Temp 110 mmHg (75-108) Arterial Blood HCO3 25 mmol/L (21-28) Arterial Blood Base Excess -2 mmol/L (-3-3) FiO2 100/nrb Medications Active Scripts Medications Dose Route/Sig Max Daily Dose Days Date Category Tums (Calcium Carbonate) 200 Mg Tab.chew 400 Mg PO HS 04/19/21 Reported Sensipar (Cinacalcet Hcl) 60 Mg Tablet 1 Tab PO DAILY 30 04/19/21 Reported Ferric Citrate 210 Mg Tablet 2 Tab PO TID 30 04/19/21 Reported Lasix (Furosemide) 40 Mg Tablet 40 Mg PO BID 04/19/21 Reported Renagel (Sevelamer Hcl) 800 Mg Tablet 2 Tab PO TIDWMEALS 01/18/21 Reported Kapspargo Sprinkle (Metoprolol Succinate) 50 Mg Cap.spr.24 50 Mg PO DAILY 01/18/21 Reported Comments Chest x-ray from 04/18/2021 reviewed. Bilateral faint interstitial infiltrates suggestive of CHF Impression . 1. Acute hypoxemic respiratory failure, multifactorial. Secondary to combination of third-degree heart block and CHF. 2. Third-degree heart block, status post temporary pacemaker implantation. 3. Metabolic acidosis secondary to renal failure, possibly sepsis. 4. End-stage renal disease. 5. Abnormal x-ray revealing bilateral pulmonary infiltrates compatible with CHF. Less likely pneumonia, COVID-19 negative 6. Leukocytosis. 7. Secondary pulmonary hypertension. 8. Elevated liver function tests. 9. Toxic metabolic encephalopathy. Plan . PLAN: 1. Repeat SARS-CoV-2 testing. Negative 2. Repeat chest x-ray today. 3. Empiric antibiotics. 4. Follow cardiology input. 5. Continue Zosyn. 6. Continue ultrafiltration with hemodialysis. 7. Avoid hyperoxia. Will try Vapotherm today. Discussed with RN and RT RUDI DAVALOS MD Apr 20, 2021 09:35
--- NOTE | 2021-04-20 09:39 | PDOC ---
PROGRESS NOTES Date of Service: DATE: 04/20/21 TIME: 09:38 Chief Complaint Chief Complaint VTE Prophylaxis Ordered VTE Prophylaxis Devices: Yes VTE Pharmacological Prophylaxi: Yes Assessment/Plan Assessment/Plan A/P: Acute encephalopathy - likely due to metabolic derangement, hypoxia, and CHB. no clear focal deficits neurologically Complete heart block - on external pacing, dopamine. Cardiology consulted./ ICU admitted. Acute respiratory failure with hypoxia - BIPAP. Likely fluid overload from acute diastolic CHF Metabolic acidosis - due to hypoxia, ESRD Acute diastolic CHF - will need UF with dialysis COPD - with likely exacerbation complicated by CHF. On bipap currently HTN - prn hydralazine ESRD on PD recently transitioned to HD - nephrology consulted for HD Mild Transaminitis - likely from acute CHF. Will f/u final COVID results Moderate protein malnutrition - will start early nutrition when more alert Anemia of ESRD - monitor Leukocytosis - meets SIRS, treating for sepsis due to COPD exacerbation/pneumonia with zosyn plan icu bed FEN -cardiac diet PPX - heparin FULL CODE Dispo - inpatient ICU nonrebreather mask at 100% FiO2. EKG with complete heart block; on BB at home. treated with Dopamine and required transcutaneous pacing. s/p temp pacemaker Continue Zosyn, renal dosing cc time 32 minutes Justifications for Admission Justifications for Admission Other Justification SBO History of Present Illness History of Present Illness dentification/Chief Complaint Chief Complaint Confusion Source Source: Patient History of Present Illness History of Present Illness Mr Grove is a 55yo M w/ PMHx CHF, COPD, HTN, ESRD on PD recently transitioned to HD who presents to the emergency room complaining of dizziness while carrying a box at home. Patient denies chest pains, chest congestion, nasal congestion. Patient states he feels a little short of breath, states he feels as if he is going to pass out. Patient denies actual syncopal episodes. He recently transitioned from PD to HD this past summer. WBC 13.4, Hb 11.6, platelets 330, NA 134, K5.1, BUN 62, CR 8.5, glucose 120 calcium 8.3, phosphorus 9.5, mag 1.9, bilirubin 0.3, AST 50, ALT 68, alk phos 295, albumin 3, troponin 0, lactate 0.9, NT proBNP greater than 35,000, ABG 7.2/48/203 Chest radiograph with patchy bilateral parenchymal opacities. Initial EKG appears to be third-degree heart block rate of [address] on external pacing, dopamine infusion He was hypoxic and confused in ED, initially attempted to get out of bed with significant O2 desaturations, requiring BIPAP. Admitted for further care to ICU Past Medical History Cardiovascular: No pertinent hx, HTN Pulmonary: Bronchitis, COPD, Other CENTRAL NERVOUS SYSTEM: Other GI: No pertinent hx, GI bleed Heme/Onc: Anemia NOS Hepatobiliary: No pertinent hx Psych: No pertinent hx Rheumatologic: No pertinent hx Infectious disease: Other Renal/: Chronic renal insuff, Chronic renal failure, UTI, Other Endocrine: No pertinent hx, Hyperparathyroidism Past Surgical History Past Surgical History: Other Family History Family History: Coronary Artery Disease Social History Smoke: No ALCOHOL: none Drugs: None Current Problem List Problem List Problems Medical Problems: (1) Community acquired pneumonia Status: Acute (2) ESRD (end stage renal disease) Status: Acute (3) Third degree heart block Status: Acute Current Medications Current Medications Current Medications Atropine Sulfate (ATROPINE 0.5mg SYRINGE) 0.5 mg 1X ONCE IV Last administered on 04/18/21at 23:38; Start 04/19/21 at 00:00; Stop 04/19/21 at 00:01; Status DC Dopamine HCl/ Dextrose 250 ml @ 13.125 mls/ hr 1X ONCE IV Last administered on 04/18/21at 23:49; Start 04/19/21 at 00:00; Stop 04/19/21 at 19:02 Sodium Chloride 500 ml @ 250 mls/hr 1X ONCE IV Last administered on 04/18/21at 23:54; Start 04/19/21 at 00:00; Stop 04/19/21 at 01:59; Status DC Ceftriaxone Sodium (Rocephin) 1 gm 1X ONCE IVP ; Start 04/19/21 at 00:30; Stop 04/19/21 at 00:29; Status DC Azithromycin 250 ml @ 250 mls/hr 1X ONCE IV ; Start 04/19/21 at 00:30; Stop 04/19/21 at 00:29; Status DC Piperacillin Sod/ Tazobactam Sod (Zosyn Per Pharmacy) 1 each PRN DAILY PRN MC SEE COMMENTS; Start 04/19/21 at 00:30 Piperacillin Sod/ Tazobactam Sod 2.25 gm/Sodium Chloride 50 ml @ 100 mls/hr Q8HRS IV Last administered on 04/19/21at 06:00; Start 04/19/21 at 00:30 Albumin Human 250 ml @ 62.5 mls/hr 1X ONCE IV Last administered on 04/19/21at 01:37; Start 04/19/21 at 02:00; Stop 04/19/21 at 05:59; Status DC Albumin Human 100 ml @ 100 mls/hr 1X ONCE IV Last administered on 04/19/21at 03:06; Start 04/19/21 at 03:30; Stop 04/19/21 at 04:29; Status DC Ondansetron HCl (Zofran) 4 mg PRN Q6HRS PRN IVP NAUSEA/VOMITING 1ST CHOICE Last administered on 04/19/21at 03:07; Start 04/19/21 at 03:00 Ondansetron HCl (Zofran) 4 mg STK-MED ONCE .ROUTE ; Start 04/19/21 at 02:59; Stop 04/19/21 at 02:59; Status DC Sodium Chloride 500 ml @ 250 mls/hr 1X ONCE IV Last administered on 04/19/21at 04:29; Start 04/19/21 at 04:00; Stop 04/19/21 at 05:59; Status DC Lorazepam (Ativan Inj) 2 mg STK-MED ONCE .ROUTE ; Start 04/19/21 at 05:41; Stop 04/19/21 at 05:41; Status DC Lorazepam (Ativan Inj) 1 mg 1X ONCE IVP Last administered on 04/19/21at 05:52; Start 04/19/21 at 06:30; Stop 04/19/21 at 06:31; Status DC Active Scripts Active Reported Ferric Citrate 210 Mg Tablet 210 Mg PO TIDAC Renagel (Sevelamer Hcl) 800 Mg Tablet 2 Tab PO TIDWMEALS Calcitriol 0.25 Mcg Capsule 1 Cap PO DAILY Furosemide 40 Mg Tablet 1 Tab PO DAILY Kapspargo Sprinkle (Metoprolol Succinate) 50 Mg Cap.spr.24 50 Mg PO DAILY Cinacalcet HCl 30 Mg Tablet 30 Mg PO QMWF Allergies Allergies: Coded Allergies: No Known Drug Allergies (Unverified , 02/17/21) Vitals Vitals Vital Signs Date Time Temp Pulse Resp B/P (MAP) Pulse Ox O2 Delivery O2 Flow Rate FiO2 04/20/21 08:05 20 95 NonRebreather Mask 04/20/21 07:00 80 118/50 (72) 15.0 04/20/21 04:00 98.7 98.7 Physical Exam Physical Exam General: Other (Confused) HEENT: Atraumatic, PERRLA, EOMI, Mucous membr. moist/pink Lungs: Other (Bilateral crackles) Heart: S1S2, RRR, no thrills, no rubs Abdomen: Normal bowel sounds, No hepatosplenomegaly, No masses, Other (mild distention) Rectal Exam: not examined Extremities: No clubbing, No cyanosis, No edema, Normal pulses, No tenderness/swelling Skin: No rashes, No breakdown, No significant lesion Neuro: Normal tone, Sensation intact, Cranial nerves 3-12 NL, Reflexes 2+, Other (Moving all 4 limbs) Psych/Mental Status: Other General: Alert, Oriented X3, Cooperative, No acute distress, Other (somnolent ) Heart: Regular rate, Other (100% vpaced ) Lungs: Clear Abdomen: Normal bowel sounds, Soft Extremities: No clubbing, No cyanosis, No edema Skin: No significant lesion Labs LABS ORDERED: BCULT Procedure Result -------- ---- BLOOD CULTURE Preliminary NO GROWTH AFTER 1 DAY PATIENT: FELICE GROVE ACCOUNT: [id number] : 1965 LOCATION: ER AGE: 55 SEX: M EXAM STATUS: PRE ER ORD. PHYSICIAN: FAMILIA COFFEY APRN REASON: Short of breath PROCEDURE: CHEST AP ONLY EXAM: AP View of the chest DATE: 04/18/2021 11:25 PM INDICATION: Reason: Short of breath / Spl. Instructions: / History: COMPARISON: 10/08/2018 10/07/2018 FINDINGS: The heart is not enlarged. Aorta is tortuous atherosclerotic calcifications. Patchy opacities right lung and perihilar left lung. No pleural effusion or pneumothorax. Heart is not enlarged. Chronic right clavicle fracture. IMPRESSION: 1. Patchy bilateral parenchymal opacities may represent multifocal consolidative process such as pneumonia. Electronically signed by: Yandel Bird MD (04/18/2021 11:47 PM) [facility] DICTATED and SIGNED BY: YANDEL BIRD MD DATE: 04/18/21 [id number] Laboratory Tests Test 04/19/21 15:40 04/20/21 05:25 04/20/21 08:00 Sodium Level 129 mmol/L (136-145) 131 mmol/L (136-145) Potassium Level 7.0 mmol/L (3.5-5.1) 5.5 mmol/L (3.5-5.1) Chloride Level 93 mmol/L (98-107) 90 mmol/L (98-107) Carbon Dioxide Level 21 mmol/L (21-32) 25 mmol/L (21-32) Anion Gap 15 (6-14) 16 (6-14) Blood Urea Nitrogen 70 mg/dL (8-26) 56 mg/dL (8-26) Creatinine 9.1 mg/dL (0.7-1.3) 7.7 mg/dL (0.7-1.3) Estimated GFR (Cockcroft-Gault) 6.0 7.3 Glucose Level 109 mg/dL (70-99) 124 mg/dL (70-99) Calcium Level 7.9 mg/dL (8.5-10.1) 8.1 mg/dL (8.5-10.1) Magnesium Level 1.9 mg/dL (1.8-2.4) Troponin I Quantitative 0.504 ng/mL (0.000-0.055) White Blood Count 21.4 x10^3/uL (4.0-11.0) Red Blood Count 3.50 x10^6/uL (4.30-5.70) Hemoglobin 11.1 g/dL (13.0-17.5) Hematocrit 33.5 % (39.0-53.0) Mean Corpuscular Volume 96 fL (79-100) Mean Corpuscular Hemoglobin 32 pg (25-35) Mean Corpuscular Hemoglobin Concent 33 g/dL (31-37) Red Cell Distribution Width 15.9 % (11.5-14.5) Platelet Count 227 x10^3/uL (140-400) Neutrophils (%) (Auto) 87 % (31-73) Lymphocytes (%) (Auto) 4 % (24-48) Monocytes (%) (Auto) 8 % (0-9) Eosinophils (%) (Auto) 1 % (0-3) Basophils (%) (Auto) 1 % (0-3) Neutrophils # (Auto) 18.5 x10^3/uL (1.8-7.7) Lymphocytes # (Auto) 0.9 x10^3/uL (1.0-4.8) Monocytes # (Auto) 1.7 x10^3/uL (0.0-1.1) Eosinophils # (Auto) 0.2 x10^3/uL (0.0-0.7) Basophils # (Auto) 0.1 x10^3/uL (0.0-0.2) Segmented Neutrophils % 88 % (35-66) Band Neutrophils % 3 % (0-9) Lymphocytes % 3 % (24-48) Monocytes % 4 % (0-10) Eosinophils % 1 % (0-5) Basophils % 1 % (0-3) Platelet Estimate Adequate (ADEQUATE) Phosphorus Level 10.0 mg/dL (2.6-4.7) Albumin 2.9 g/dL (3.4-5.0) O2 Saturation 97 % (92-99) Arterial Blood pH 7.33 (7.35-7.45) Arterial Blood pCO2 at Patient Temp 48 mmHg (35-46) Arterial Blood pO2 at Patient Temp 110 mmHg (75-108) Arterial Blood HCO3 25 mmol/L (21-28) Arterial Blood Base Excess -2 mmol/L (-3-3) FiO2 100/nrb Assessment and Plan Assessmemt and Plan Problems Medical Problems: (1) Community acquired pneumonia Status: Acute (2) ESRD (end stage renal disease) Status: Acute (3) Third degree heart block Status: Acute Comment Review of Relevant I have reviewed the following items allyson (where applicable) has been applied. Labs Laboratory Tests Test 04/18/21 23:20 04/19/21 00:05 04/19/21 06:22 04/19/21 08:55 White Blood Count 13.4 x10^3/uL (4.0-11.0) Red Blood Count 3.63 x10^6/uL (4.30-5.70) Hemoglobin 11.6 g/dL (13.0-17.5) Hematocrit 35.0 % (39.0-53.0) Mean Corpuscular Volume 96 fL (79-100) Mean Corpuscular Hemoglobin 32 pg (25-35) Mean Corpuscular Hemoglobin Concent 33 g/dL (31-37) Red Cell Distribution Width 15.7 % (11.5-14.5) Platelet Count 330 x10^3/uL (140-400) Neutrophils (%) (Auto) 61 % (31-73) Lymphocytes (%) (Auto) 18 % (24-48) Monocytes (%) (Auto) 12 % (0-9) Eosinophils (%) (Auto) 8 % (0-3) Basophils (%) (Auto) 0 % (0-3) Neutrophils # (Auto) 8.2 x10^3/uL (1.8-7.7) Lymphocytes # (Auto) 2.5 x10^3/uL (1.0-4.8) Monocytes # (Auto) 1.6 x10^3/uL (0.0-1.1) Eosinophils # (Auto) 1.1 x10^3/uL (0.0-0.7) Basophils # (Auto) 0.0 x10^3/uL (0.0-0.2) Segmented Neutrophils % 67 % (35-66) Lymphocytes % 14 % (24-48) Monocytes % 9 % (0-10) Eosinophils % 9 % (0-5) Basophils % 1 % (0-3) Platelet Estimate Adequate (ADEQUATE) Polychromasia Slight Anisocytosis Slight Sodium Level 134 mmol/L (136-145) Potassium Level 5.1 mmol/L (3.5-5.1) Chloride Level 94 mmol/L (98-107) Carbon Dioxide Level 27 mmol/L (21-32) Anion Gap 13 (6-14) Blood Urea Nitrogen 62 mg/dL (8-26) Creatinine 8.5 mg/dL (0.7-1.3) Estimated GFR (Cockcroft-Gault) 6.5 BUN/Creatinine Ratio 7 (6-20) Glucose Level 120 mg/dL (70-99) Lactic Acid Level 0.9 mmol/L (0.4-2.0) Calcium Level 8.3 mg/dL (8.5-10.1) Phosphorus Level 9.5 mg/dL (2.6-4.7) Magnesium Level 1.9 mg/dL (1.8-2.4) Total Bilirubin 0.3 mg/dL (0.2-1.0) Aspartate Amino Transf (AST/SGOT) 50 U/L (15-37) Alanine Aminotransferase (ALT/SGPT) 68 U/L (16-63) Alkaline Phosphatase 295 U/L (46-116) Creatine Kinase 92 U/L (39-308) Creatine Kinase MB (Mass) 2.7 ng/mL (0.0-3.6) Creatine Kinase MB Relative Index 2.9 % (0-4) Troponin I Quantitative < 0.017 ng/mL (0.000-0.055) BS-Zij-V-Type Natriuretic Peptide > 87492 pg/mL (0-124) Total Protein 8.3 g/dL (6.4-8.2) Albumin 3.0 g/dL (3.4-5.0) Albumin/Globulin Ratio 0.6 (1.0-1.7) Coronavirus (COVID-19)(PCR) Not detected (NOT DETECTD) SARS-CoV-2 RNA (SHIRA) Invalid (Negative) SARS-CoV-2 Antigen (Rapid) Negative (NEGATIVE) O2 Saturation 99 % (92-99) Arterial Blood pH 7.20 (7.35-7.45) Arterial Blood pCO2 at Patient Temp 48 mmHg (35-46) Arterial Blood pO2 at Patient Temp 203 mmHg (75-108) Arterial Blood HCO3 18 mmol/L (21-28) Arterial Blood Base Excess -10 mmol/L (-3-3) FiO2 100 Prothrombin Time 14.4 SEC (11.7-14.0) Prothromb Time International Ratio 1.1 (0.8-1.1) Activated Partial Thromboplast Time 35 SEC (24-38) Thyroid Stimulating Hormone (TSH) 5.846 uIU/mL (0.358-3.74) Hepatitis B Surface Antigen Nonreactive (Nonreactive) Hepatitis B Surface Antibody Nonreactive Test 04/19/21 15:40 04/20/21 05:25 04/20/21 08:00 Sodium Level 129 mmol/L (136-145) 131 mmol/L (136-145) Potassium Level 7.0 mmol/L (3.5-5.1) 5.5 mmol/L (3.5-5.1) Chloride Level 93 mmol/L (98-107) 90 mmol/L (98-107) Carbon Dioxide Level 21 mmol/L (21-32) 25 mmol/L (21-32) Anion Gap 15 (6-14) 16 (6-14) Blood Urea Nitrogen 70 mg/dL (8-26) 56 mg/dL (8-26) Creatinine 9.1 mg/dL (0.7-1.3) 7.7 mg/dL (0.7-1.3) Estimated GFR (Cockcroft-Gault) 6.0 7.3 Glucose Level 109 mg/dL (70-99) 124 mg/dL (70-99) Calcium Level 7.9 mg/dL (8.5-10.1) 8.1 mg/dL (8.5-10.1) Magnesium Level 1.9 mg/dL (1.8-2.4) Troponin I Quantitative 0.504 ng/mL (0.000-0.055) White Blood Count 21.4 x10^3/uL (4.0-11.0) Red Blood Count 3.50 x10^6/uL (4.30-5.70) Hemoglobin 11.1 g/dL (13.0-17.5) Hematocrit 33.5 % (39.0-53.0) Mean Corpuscular Volume 96 fL (79-100) Mean Corpuscular Hemoglobin 32 pg (25-35) Mean Corpuscular Hemoglobin Concent 33 g/dL (31-37) Red Cell Distribution Width 15.9 % (11.5-14.5) Platelet Count 227 x10^3/uL (140-400) Neutrophils (%) (Auto) 87 % (31-73) Lymphocytes (%) (Auto) 4 % (24-48) Monocytes (%) (Auto) 8 % (0-9) Eosinophils (%) (Auto) 1 % (0-3) Basophils (%) (Auto) 1 % (0-3) Neutrophils # (Auto) 18.5 x10^3/uL (1.8-7.7) Lymphocytes # (Auto) 0.9 x10^3/uL (1.0-4.8) Monocytes # (Auto) 1.7 x10^3/uL (0.0-1.1) Eosinophils # (Auto) 0.2 x10^3/uL (0.0-0.7) Basophils # (Auto) 0.1 x10^3/uL (0.0-0.2) Segmented Neutrophils % 88 % (35-66) Band Neutrophils % 3 % (0-9) Lymphocytes % 3 % (24-48) Monocytes % 4 % (0-10) Eosinophils % 1 % (0-5) Basophils % 1 % (0-3) Platelet Estimate Adequate (ADEQUATE) Phosphorus Level 10.0 mg/dL (2.6-4.7) Albumin 2.9 g/dL (3.4-5.0) O2 Saturation 97 % (92-99) Arterial Blood pH 7.33 (7.35-7.45) Arterial Blood pCO2 at Patient Temp 48 mmHg (35-46) Arterial Blood pO2 at Patient Temp 110 mmHg (75-108) Arterial Blood HCO3 25 mmol/L (21-28) Arterial Blood Base Excess -2 mmol/L (-3-3) FiO2 100/nrb Laboratory Tests Test 04/19/21 15:40 04/20/21 05:25 04/20/21 08:00 Sodium Level 129 mmol/L (136-145) 131 mmol/L (136-145) Potassium Level 7.0 mmol/L (3.5-5.1) 5.5 mmol/L (3.5-5.1) Chloride Level 93 mmol/L (98-107) 90 mmol/L (98-107) Carbon Dioxide Level 21 mmol/L (21-32) 25 mmol/L (21-32) Anion Gap 15 (6-14) 16 (6-14) Blood Urea Nitrogen 70 mg/dL (8-26) 56 mg/dL (8-26) Creatinine 9.1 mg/dL (0.7-1.3) 7.7 mg/dL (0.7-1.3) Estimated GFR (Cockcroft-Gault) 6.0 7.3 Glucose Level 109 mg/dL (70-99) 124 mg/dL (70-99) Calcium Level 7.9 mg/dL (8.5-10.1) 8.1 mg/dL (8.5-10.1) Magnesium Level 1.9 mg/dL (1.8-2.4) Troponin I Quantitative 0.504 ng/mL (0.000-0.055) White Blood Count 21.4 x10^3/uL (4.0-11.0) Red Blood Count 3.50 x10^6/uL (4.30-5.70) Hemoglobin 11.1 g/dL (13.0-17.5) Hematocrit 33.5 % (39.0-53.0) Mean Corpuscular Volume 96 fL (79-100) Mean Corpuscular Hemoglobin 32 pg (25-35) Mean Corpuscular Hemoglobin Concent 33 g/dL (31-37) Red Cell Distribution Width 15.9 % (11.5-14.5) Platelet Count 227 x10^3/uL (140-400) Neutrophils (%) (Auto) 87 % (31-73) Lymphocytes (%) (Auto) 4 % (24-48) Monocytes (%) (Auto) 8 % (0-9) Eosinophils (%) (Auto) 1 % (0-3) Basophils (%) (Auto) 1 % (0-3) Neutrophils # (Auto) 18.5 x10^3/uL (1.8-7.7) Lymphocytes # (Auto) 0.9 x10^3/uL (1.0-4.8) Monocytes # (Auto) 1.7 x10^3/uL (0.0-1.1) Eosinophils # (Auto) 0.2 x10^3/uL (0.0-0.7) Basophils # (Auto) 0.1 x10^3/uL (0.0-0.2) Segmented Neutrophils % 88 % (35-66) Band Neutrophils % 3 % (0-9) Lymphocytes % 3 % (24-48) Monocytes % 4 % (0-10) Eosinophils % 1 % (0-5) Basophils % 1 % (0-3) Platelet Estimate Adequate (ADEQUATE) Phosphorus Level 10.0 mg/dL (2.6-4.7) Albumin 2.9 g/dL (3.4-5.0) O2 Saturation 97 % (92-99) Arterial Blood pH 7.33 (7.35-7.45) Arterial Blood pCO2 at Patient Temp 48 mmHg (35-46) Arterial Blood pO2 at Patient Temp 110 mmHg (75-108) Arterial Blood HCO3 25 mmol/L (21-28) Arterial Blood Base Excess -2 mmol/L (-3-3) FiO2 100/nrb Microbiology 04/19/21 Blood Culture - Preliminary, Resulted NO GROWTH AFTER 1 DAY Medications Current Medications Atropine Sulfate (ATROPINE 0.5mg SYRINGE) 0.5 mg 1X ONCE IV Last administered on 04/18/21at 23:38; Start 04/19/21 at 00:00; Stop 04/19/21 at 00:01; Status DC Dopamine HCl/ Dextrose 250 ml @ 13.125 mls/ hr 1X ONCE IV Last administered on 04/18/21at 23:49; Start 04/19/21 at 00:00; Stop 04/19/21 at 10:30; Status DC Sodium Chloride 500 ml @ 250 mls/hr 1X ONCE IV Last administered on 04/18/21at 23:54; Start 04/19/21 at 00:00; Stop 04/19/21 at 01:59; Status DC Ceftriaxone Sodium (Rocephin) 1 gm 1X ONCE IVP ; Start 04/19/21 at 00:30; Stop 04/19/21 at 00:29; Status DC Azithromycin 250 ml @ 250 mls/hr 1X ONCE IV ; Start 04/19/21 at 00:30; Stop 04/19/21 at 00:29; Status DC Piperacillin Sod/ Tazobactam Sod (Zosyn Per Pharmacy) 1 each PRN DAILY PRN MC SEE COMMENTS; Start 04/19/21 at 00:30 Piperacillin Sod/ Tazobactam Sod 2.25 gm/Sodium Chloride 50 ml @ 100 mls/hr Q8HRS IV Last administered on 04/20/21at 06:01; Start 04/19/21 at 00:30 Albumin Human 250 ml @ 62.5 mls/hr 1X ONCE IV Last administered on 04/19/21at 01:37; Start 04/19/21 at 02:00; Stop 04/19/21 at 05:59; Status DC Albumin Human 100 ml @ 100 mls/hr 1X ONCE IV Last administered on 04/19/21at 03:06; Start 04/19/21 at 03:30; Stop 04/19/21 at 04:29; Status DC Ondansetron HCl (Zofran) 4 mg PRN Q6HRS PRN IVP NAUSEA/VOMITING 1ST CHOICE Last administered on 04/19/21at 03:07; Start 04/19/21 at 03:00; Stop 04/19/21 at 07:11; Status DC Ondansetron HCl (Zofran) 4 mg STK-MED ONCE .ROUTE ; Start 04/19/21 at 02:59; Stop 04/19/21 at 02:59; Status DC Sodium Chloride 500 ml @ 250 mls/hr 1X ONCE IV Last administered on 04/19/21at 04:29; Start 04/19/21 at 04:00; Stop 04/19/21 at 05:59; Status DC Lorazepam (Ativan Inj) 2 mg STK-MED ONCE .ROUTE ; Start 04/19/21 at 05:41; Stop 04/19/21 at 05:41; Status DC Lorazepam (Ativan Inj) 1 mg 1X ONCE IVP Last administered on 04/19/21at 05:52; Start 04/19/21 at 06:30; Stop 04/19/21 at 06:31; Status DC Ondansetron HCl (Zofran) 4 mg PRN Q4HRS PRN IVP NAUSEA/VOMITING Last administered on 04/19/21at 07:15; Start 04/19/21 at 07:00 Guaifenesin (Robitussin Dm) 10 ml PRN Q6HRS PRN PO COUGH; Start 04/19/21 at 07:00 Heparin Sodium (Porcine) (Heparin Sodium) 5,000 unit Q8HRS SQ Last administered on 04/20/21at 06:03; Start 04/19/21 at 14:00 Hydralazine HCl (Apresoline Inj) 10 mg PRN Q4HRS PRN IVP ELEVATED BP, SEE COMMENTS; Start 04/19/21 at 07:00 Acetaminophen (Tylenol) 650 mg PRN Q6HRS PRN PO MILD PAIN / TEMP > 100.3'F; Start 04/19/21 at 07:00 Fentanyl Citrate (Fentanyl 2ml Vial) 25 mcg PRN Q3HRS PRN IVP SEVERE PAIN 7-10 Last administered on 04/19/21at 07:50; Start 04/19/21 at 07:00 Sevelamer Carbonate (Renvela) 1,600 mg TIDWMEALS PO ; Start 04/19/21 at 08:00 Lorazepam (Ativan Inj) 1 mg PRN Q4HRS PRN IVP ANXIETY / AGITATION Last administered on 04/19/21at 07:51; Start 04/19/21 at 07:45 Dopamine HCl/ Dextrose 250 ml @ 13.988 mls/ hr CONT PRN IV SEE I/O RECORD Last administered on 04/20/21at 05:08; Start 04/19/21 at 09:00 Lidocaine HCl (Lidocaine 1% 20ml Vial) 20 ml STK-MED ONCE .ROUTE ; Start 04/19/21 at 09:01; Stop 04/19/21 at 09:02; Status DC Heparin Sodium/ Sodium Chloride 500 ml @ As Directed STK-MED ONCE .ROUTE ; Start 04/19/21 at 09:02; Stop 04/19/21 at 09:02; Status DC Heparin Sodium/ Sodium Chloride (HEPARIN for ARTERIAL LINE FLUSH) 1,000 unit 1X ONCE IART Last administered on 04/19/21at 09:15; Start 04/19/21 at 09:15; Stop 04/19/21 at 09:30; Status DC Lidocaine HCl (Lidocaine 1% 20ml Vial) 20 ml 1X ONCE INJ Last administered on 04/19/21at 09:46; Start 04/19/21 at 09:15; Stop 04/19/21 at 09:30; Status DC Fentanyl Citrate (Fentanyl 2ml Vial) 100 mcg PRN Q2HR PRN IVP PAIN Last administered on 04/20/21at 08:05; Start 04/19/21 at 09:15 Lorazepam (Ativan Inj) 2 mg PRN Q2HRS PRN IVP ANXIETY / AGITATION Last administered on 04/20/21at 08:05; Start 04/19/21 at 09:15 Norepinephrine Bitartrate 8 mg/ Dextrose 258 ml @ 14.435 mls/ hr CONT PRN IV PER PROTOCOL Last administered on 04/20/21at 03:17; Start 04/19/21 at 10:15 Epinephrine HCl (Adrenalin) 1 mg STK-MED ONCE .ROUTE ; Start 04/19/21 at 10:18; Stop 04/19/21 at 10:18; Status DC Heparin Sodium/ Sodium Chloride 500 ml @ As Directed STK-MED ONCE .ROUTE ; Start 04/19/21 at 10:30; Stop 04/19/21 at 10:30; Status DC Iodixanol (Visipaque 320) 100 ml STK-MED ONCE .ROUTE ; Start 04/19/21 at 10:32; Stop 04/19/21 at 10:32; Status DC Midazolam HCl (Versed) 2 mg STK-MED ONCE .ROUTE ; Start 04/19/21 at 10:34; Stop 04/19/21 at 10:34; Status DC Fentanyl Citrate (Fentanyl 2ml Vial) 100 mcg STK-MED ONCE .ROUTE ; Start 04/19/21 at 10:34; Stop 04/19/21 at 10:35; Status DC Heparin Sodium/ Sodium Chloride 500 ml @ As Directed STK-MED ONCE .ROUTE ; Start 04/19/21 at 10:44; Stop 04/19/21 at 10:44; Status DC Midazolam HCl (Versed) 2 mg 1X ONCE IV Last administered on 04/19/21at 11:13; Start 04/19/21 at 11:00; Stop 04/19/21 at 11:02; Status DC Fentanyl Citrate (Fentanyl 2ml Vial) 100 mcg 1X ONCE IV Last administered on 04/19/21at 11:13; Start 04/19/21 at 11:00; Stop 04/19/21 at 11:02; Status DC Epinephrine HCl (EPINEPHrine SYRINGE) 0.5 mg 1X ONCE IV Last administered on 04/19/21at 10:17; Start 04/19/21 at 10:17; Stop 04/19/21 at 11:02; Status DC Albumin Human 200 ml @ 200 mls/hr 1X PRN PRN IV Hypotension; Start 04/19/21 at 14:00; Stop 04/19/21 at 19:59; Status DC Info (PHARMACY MONITORING -- do not chart) 1 each PRN DAILY PRN MC SEE COMMENTS; Start 04/19/21 at 14:00 Info (PHARMACY MONITORING -- do not chart) 1 each PRN DAILY PRN MC SEE COMMENTS; Start 04/19/21 at 18:15 Sodium Chloride 1,000 ml @ 1,000 mls/hr Q1H PRN IV hypotension; Start 04/20/21 at 08:00; Stop 04/20/21 at 13:59 Albumin Human 200 ml @ 200 mls/hr 1X PRN PRN IV Hypotension; Start 04/20/21 at 08:00; Stop 04/20/21 at 13:59 Sodium Chloride 1,000 ml @ 400 mls/hr Q2H30M PRN IV PATENCY; Start 04/20/21 at 08:00; Stop 04/20/21 at 19:59 Lidocaine HCl (Xylocaine-Mpf 1% 2ml Vial) 2 ml 1X PRN PRN INJ FOR DIALYSIS; Start 04/20/21 at 08:00; Stop 04/21/21 at 07:59 Info (PHARMACY MONITORING -- do not chart) 1 each PRN DAILY PRN MC SEE COMMENTS; Start 04/20/21 at 08:00; Status UNV Info (PHARMACY MONITORING -- do not chart) 1 each PRN DAILY PRN MC SEE COMMENTS; Start 04/20/21 at 08:00 Active Scripts Active Reported Tums (Calcium Carbonate) 200 Mg Tab.chew 400 Mg PO HS Sensipar (Cinacalcet Hcl) 60 Mg Tablet 1 Tab PO DAILY 30 Days Ferric Citrate 210 Mg Tablet 2 Tab PO TID 30 Days Lasix (Furosemide) 40 Mg Tablet 40 Mg PO BID Renagel (Sevelamer Hcl) 800 Mg Tablet 2 Tab PO TIDWMEALS Kapspargo Sprinkle (Metoprolol Succinate) 50 Mg Cap.spr.24 50 Mg PO DAILY Vitals/I & O Vital Sign - Last 24 Hours 04/19/21 04/19/21 04/19/21 04/19/21 09:45 10:57 11:13 11:30 Pulse 70 Resp 32 19 21 Pulse Ox 100 100 100 100 O2 Delivery BiPAP/CPAP BiPAP/CPAP BiPAP/CPAP BiPAP/CPAP 04/19/21 04/19/21 04/19/21 04/19/21 11:43 11:45 12:00 12:00 Pulse 70 Resp 20 28 B/P (MAP) 92/52 (65) Pulse Ox 96 100 O2 Delivery BiPAP/CPAP BiPAP/CPAP Bi-pap 04/19/21 04/19/21 04/19/21 04/19/21 12:00 12:30 12:45 13:00 Temp 98.4 98.4 Pulse 70 70 70 70 Resp 20 20 20 B/P (MAP) 98/48 (65) 86/42 (57) 108/52 (70) 110/50 (70) Pulse Ox 100 96 96 O2 Delivery BiPAP/CPAP BiPAP/CPAP BiPAP/CPAP 04/19/21 04/19/21 04/19/21 04/19/21 13:00 14:00 15:00 15:30 Pulse 71 71 Resp 24 16 B/P (MAP) 131/52 (78) 137/49 (78) Pulse Ox 97 93 99 O2 Delivery BiPAP/CPAP BiPAP/CPAP BiPAP/CPAP 04/19/21 04/19/21 04/19/21 04/19/21 15:30 15:40 16:00 16:00 Pulse 71 Resp 32 B/P (MAP) 122/43 (69) Pulse Ox 96 99 O2 Delivery Bi-pap BiPAP/CPAP BiPAP/CPAP 04/19/21 04/19/21 04/19/21 04/19/21 17:25 17:37 18:00 19:00 Temp 98.2 98.2 Pulse 71 71 84 Resp 32 30 26 B/P (MAP) 105/49 (67) 104/47 (66) 104/46 (65) Pulse Ox 94 99 100 96 O2 Delivery BiPAP/CPAP BiPAP/CPAP BiPAP/CPAP BiPAP/CPAP 9/27/04/19/21 04/19/21 04/19/21 20:00 20:00 20:00 20:00 Temp 99.1 99.1 Pulse 86 86 Resp 34 B/P (MAP) 126/48 (74) 126/48 (74) Pulse Ox 91 95 O2 Delivery BiPAP/CPAP Bi-pap BiPAP/CPAP 04/19/21 04/19/21 04/19/21 04/19/21 21:00 22:00 23:00 23:00 Pulse 84 86 86 Resp B/P (MAP) 134/52 (79) 124/50 (74) 116/46 (69) Pulse Ox 93 97 96 O2 Delivery BiPAP/CPAP BiPAP/CPAP NonRebreather Mask NonRebreather Mask O2 Flow Rate 15.0 15.0 04/20/21 04/20/21 04/20/21 04/20/21 00:00 00:00 00:00 01:00 Temp 99.1 99.1 Pulse 82 82 82 Resp B/P (MAP) 120/52 (74) 120/52 (74) 122/52 (75) Pulse Ox 91 98 O2 Delivery NonRebreather Mask Non-Rebreather NonRebreather Mask O2 Flow Rate 15.0 15.0 15.0 04/20/21 04/20/21 04/20/21 04/20/21 02:00 03:00 04:00 04:00 Temp 98.7 98.7 Pulse 82 82 74 74 Resp B/P (MAP) 130/54 (79) 128/54 (78) 138/60 (86) 138/60 (86) Pulse Ox 97 98 99 O2 Delivery NonRebreather Mask NonRebreather Mask NonRebreather Mask O2 Flow Rate 15.0 15.0 15.0 04/20/21 04/20/21 04/20/21 04/20/21 04:00 05:00 06:00 07:00 Pulse 104 104 80 Resp 18 B/P (MAP) 134/60 (84) 128/60 (82) 118/50 (72) Pulse Ox 98 99 94 O2 Delivery Non-Rebreather NonRebreather Mask NonRebreather Mask NonRebreather Mask O2 Flow Rate 15.0 15.0 15.0 15.0 04/20/21 08:05 Resp 20 Pulse Ox 95 O2 Delivery NonRebreather Mask Intake and Output 04/19/21 04/19/21 04/20/21 15:00 23:00 07:00 Intake Total 990 ml 1198.98 ml Output Total 75 ml 0 ml 0 ml Balance -75 ml 990 ml 1198.98 ml Justicifation of Admission Dx: Justifications for Admission: Justification of Admission Dx: N/A ORQUIDEA GAMINO MD Apr 20, 2021 09:39
--- NOTE | 2021-04-20 10:01 | PDOC ---
DATE OF SERVICE DATE: 04/20/21 TIME: 09:52 SUBJECTIVE ROS on Vapotherm No concerns during dialysis OBJECTIVE Vital Signs Vital Signs Date Time Temp Pulse Resp B/P (MAP) Pulse Ox O2 Delivery O2 Flow Rate FiO2 04/20/21 08:05 20 95 NonRebreather Mask 04/20/21 07:00 80 118/50 (72) 15.0 04/20/21 04:00 98.7 98.7 I & 0 Intake and Output 04/20/21 07:00 Intake Total 2188.98 ml Output Total 75 ml Balance 2113.98 ml Intake IV Total 2188.98 ml Output Urine Total 75 ml PHYSICAL EXAM Physical Exam GENERAL: On Vapotherm Recd Fentanyl HEENT: Normocephalic, atraumatic. Anicteric. NECK supple LUNGS: Decreased at bases CV heart paced. ABDOMEN: Soft, nontender, nondistended. EXTREMITIES: No edema, no cyanosis. GENITOURINARY: Right groin temporary pacemaker, No [place] DERMATOLOGIC: Warm, dry, no generalized rash. NEUROLOGIC: Somnolent. PSYCHIATRIC: Unable to assess. DIAGNOSIS/ASSESSMENT Assessment & Plan ESRD - On HD TTS, last dialysis was Monday, Initially UF done as K was normal per morning labs and Low BP's .Dialysis today per his schedule . Discussed treatment plan with Jesse HyperKalemia- K Normal yesterday morning, Repeat labs late after noon K of 7 - Dialyzed emergently . K stable this morning Ac Resp Failure - CxR Patchy bilateral parenchymal opacities may represent multifocal consolidative process such as pneumonia Dizziness; EKG with complete heart block; on BB at home- Dopamine and s/p temp pacemaker Encephalopathy; multifactorial COMMENT/RELEVANT DATA Meds Current Medications Medications (Trade) Dose Ordered Sig/Kevin Start Time Stop Time Status Last Admin Dose Admin Acetaminophen (Tylenol) 650 mg PRN Q6HRS PRN 04/19/21 07:00 Albumin Human 200 ml @ 200 mls/hr 1X PRN PRN 04/20/21 08:00 04/20/21 13:59 Atropine Sulfate (ATROPINE 0.5mg SYRINGE) 0.5 mg 1X ONCE 04/19/21 00:00 04/19/21 00:01 DC 04/18/21 23:38 0.5 MG Azithromycin 250 ml @ 250 mls/hr 1X ONCE 04/19/21 00:30 04/19/21 00:29 DC Ceftriaxone Sodium (Rocephin) 1 gm 1X ONCE 04/19/21 00:30 04/19/21 00:29 DC Dopamine HCl/ Dextrose 250 ml @ 13.988 mls/ hr CONT PRN 04/19/21 09:00 04/20/21 05:08 55.95 MLS/HR Epinephrine HCl (Adrenalin) 1 mg STK-MED ONCE 04/19/21 10:18 04/19/21 10:18 DC Epinephrine HCl (EPINEPHrine SYRINGE) 0.5 mg 1X ONCE 04/19/21 10:17 04/19/21 11:02 DC 04/19/21 10:17 0.5 MG Fentanyl Citrate (Fentanyl 2ml Vial) 100 mcg 1X ONCE 04/19/21 11:00 04/19/21 11:02 DC 04/19/21 11:13 50 MCG Guaifenesin (Robitussin Dm) 10 ml PRN Q6HRS PRN 04/19/21 07:00 Heparin Sodium (Porcine) (Heparin Sodium) 5,000 unit Q8HRS 04/19/21 14:00 04/20/21 06:03 5,000 UNIT Heparin Sodium/ Sodium Chloride 500 ml @ As Directed STK-MED ONCE 04/19/21 10:44 04/19/21 10:44 DC Heparin Sodium/ Sodium Chloride (HEPARIN for ARTERIAL LINE FLUSH) 1,000 unit 1X ONCE 04/19/21 09:15 04/19/21 09:30 DC 04/19/21 09:15 1,000 UNIT Hydralazine HCl (Apresoline Inj) 10 mg PRN Q4HRS PRN 04/19/21 07:00 Info (PHARMACY MONITORING -- do not chart) 1 each PRN DAILY PRN 04/20/21 08:00 Iodixanol (Visipaque 320) 100 ml STK-MED ONCE 04/19/21 10:32 04/19/21 10:32 DC Lidocaine HCl (Lidocaine 1% 20ml Vial) 20 ml 1X ONCE 04/19/21 09:15 04/19/21 09:30 DC 04/19/21 09:46 16 ML Lidocaine HCl (Xylocaine-Mpf 1% 2ml Vial) 2 ml 1X PRN PRN 04/20/21 08:00 04/21/21 07:59 Lorazepam (Ativan Inj) 2 mg PRN Q2HRS PRN 04/19/21 09:15 04/20/21 08:05 2 MG Midazolam HCl (Versed) 2 mg 1X ONCE 04/19/21 11:00 04/19/21 11:02 DC 04/19/21 11:13 2 MG Norepinephrine Bitartrate 8 mg/ Dextrose 258 ml @ 14.435 mls/ hr CONT PRN 04/19/21 10:15 04/20/21 03:17 34.644 MLS/HR Ondansetron HCl (Zofran) 4 mg PRN Q4HRS PRN 04/19/21 07:00 04/19/21 07:15 4 MG Piperacillin Sod/ Tazobactam Sod (Zosyn Per Pharmacy) 1 each PRN DAILY PRN 04/19/21 00:30 Piperacillin Sod/ Tazobactam Sod 2.25 gm/Sodium Chloride 50 ml @ 100 mls/hr Q8HRS 04/19/21 00:30 04/20/21 06:01 100 MLS/HR Sevelamer Carbonate (Renvela) 1,600 mg TIDWMEALS 04/19/21 08:00 Sodium Chloride 1,000 ml @ 400 mls/hr Q2H30M PRN 04/20/21 08:00 04/20/21 19:59 Lab Laboratory Tests Test 04/19/21 15:40 04/20/21 05:25 04/20/21 08:00 Sodium Level 129 mmol/L (136-145) 131 mmol/L (136-145) Potassium Level 7.0 mmol/L (3.5-5.1) 5.5 mmol/L (3.5-5.1) Chloride Level 93 mmol/L (98-107) 90 mmol/L (98-107) Carbon Dioxide Level 21 mmol/L (21-32) 25 mmol/L (21-32) Anion Gap 15 (6-14) 16 (6-14) Blood Urea Nitrogen 70 mg/dL (8-26) 56 mg/dL (8-26) Creatinine 9.1 mg/dL (0.7-1.3) 7.7 mg/dL (0.7-1.3) Estimated GFR (Cockcroft-Gault) 6.0 7.3 Glucose Level 109 mg/dL (70-99) 124 mg/dL (70-99) Calcium Level 7.9 mg/dL (8.5-10.1) 8.1 mg/dL (8.5-10.1) Magnesium Level 1.9 mg/dL (1.8-2.4) Troponin I Quantitative 0.504 ng/mL (0.000-0.055) White Blood Count 21.4 x10^3/uL (4.0-11.0) Red Blood Count 3.50 x10^6/uL (4.30-5.70) Hemoglobin 11.1 g/dL (13.0-17.5) Hematocrit 33.5 % (39.0-53.0) Mean Corpuscular Volume 96 fL (79-100) Mean Corpuscular Hemoglobin 32 pg (25-35) Mean Corpuscular Hemoglobin Concent 33 g/dL (31-37) Red Cell Distribution Width 15.9 % (11.5-14.5) Platelet Count 227 x10^3/uL (140-400) Neutrophils (%) (Auto) 87 % (31-73) Lymphocytes (%) (Auto) 4 % (24-48) Monocytes (%) (Auto) 8 % (0-9) Eosinophils (%) (Auto) 1 % (0-3) Basophils (%) (Auto) 1 % (0-3) Neutrophils # (Auto) 18.5 x10^3/uL (1.8-7.7) Lymphocytes # (Auto) 0.9 x10^3/uL (1.0-4.8) Monocytes # (Auto) 1.7 x10^3/uL (0.0-1.1) Eosinophils # (Auto) 0.2 x10^3/uL (0.0-0.7) Basophils # (Auto) 0.1 x10^3/uL (0.0-0.2) Segmented Neutrophils % 88 % (35-66) Band Neutrophils % 3 % (0-9) Lymphocytes % 3 % (24-48) Monocytes % 4 % (0-10) Eosinophils % 1 % (0-5) Basophils % 1 % (0-3) Platelet Estimate Adequate (ADEQUATE) Phosphorus Level 10.0 mg/dL (2.6-4.7) Albumin 2.9 g/dL (3.4-5.0) O2 Saturation 97 % (92-99) Arterial Blood pH 7.33 (7.35-7.45) Arterial Blood pCO2 at Patient Temp 48 mmHg (35-46) Arterial Blood pO2 at Patient Temp 110 mmHg (75-108) Arterial Blood HCO3 25 mmol/L (21-28) Arterial Blood Base Excess -2 mmol/L (-3-3) FiO2 100/nrb Results All relevant outside records, renal labs, imaging studies, telemetry/EKG's were reviewed. Justicifation of Admission Dx: Justifications for Admission: Justification of Admission Dx: N/A MARIYA NORMAN MD Apr 20, 2021 10:01
[2021-04-20] MEDS ORDERED: STERILE WATER for RESP 1,000 ML BAG. INH PRN (11:15)
--- NOTE | 2021-04-20 11:44 | RAD ---
EXAM: XR CHEST 1V 04/20/2021 9:44 AM CLINICAL INDICATION: CHF COMPARISON: Chest radiograph 04/18/2021 TECHNIQUE: AP view of the chest FINDINGS: The heart is enlarged. There are significantly worsened, extensive airspace opacities thro ughout the lungs, greatest in the perihilar distribution. No definite pleural effusion or pneumothora x. The no acute osseous abnormality. IMPRESSION: Cardiomegaly and significantly worsened perihilar predominant airspace opacities suspici ous for pulmonary edema/ARDS, or multifocal pneumonia. Electronically signed by: Carolyn Downey MD (04/20/2021 11:42 AM) [id number]
--- NOTE | 2021-04-20 14:39 | PDOC ---
SANJEEV PASTOR READY TO WEAR DEPARTMENT MANAGER 04/20/21 1439: CARDIO Progress Notes Date and Time Date of Service 04/20/2021 Time of Evaluation 1300 Subjective Subjective: Other (lethargic) Vitals Vitals Vital Signs Date Time Temp Pulse Resp B/P (MAP) Pulse Ox O2 Delivery O2 Flow Rate FiO2 04/20/21 14:11 94 Vapotherm 25.0 04/20/21 14:05 20 04/20/21 14:00 109 111/53 (72) 04/20/21 08:00 98.5 98.5 Weight Weight [ ] Input and Output Intake and Output Intake and Output 04/20/21 06:59 Intake Total 2188.98 ml Output Total 75 ml Balance 2113.98 ml Intake IV Total 2188.98 ml Output Urine Total 75 ml Laboratory Labs Laboratory Tests Test 04/19/21 15:40 04/20/21 05:25 04/20/21 08:00 Sodium Level 129 mmol/L (136-145) 131 mmol/L (136-145) Potassium Level 7.0 mmol/L (3.5-5.1) 5.5 mmol/L (3.5-5.1) Chloride Level 93 mmol/L (98-107) 90 mmol/L (98-107) Carbon Dioxide Level 21 mmol/L (21-32) 25 mmol/L (21-32) Anion Gap 15 (6-14) 16 (6-14) Blood Urea Nitrogen 70 mg/dL (8-26) 56 mg/dL (8-26) Creatinine 9.1 mg/dL (0.7-1.3) 7.7 mg/dL (0.7-1.3) Estimated GFR (Cockcroft-Gault) 6.0 7.3 Glucose Level 109 mg/dL (70-99) 124 mg/dL (70-99) Calcium Level 7.9 mg/dL (8.5-10.1) 8.1 mg/dL (8.5-10.1) Magnesium Level 1.9 mg/dL (1.8-2.4) Troponin I Quantitative 0.504 ng/mL (0.000-0.055) White Blood Count 21.4 x10^3/uL (4.0-11.0) Red Blood Count 3.50 x10^6/uL (4.30-5.70) Hemoglobin 11.1 g/dL (13.0-17.5) Hematocrit 33.5 % (39.0-53.0) Mean Corpuscular Volume 96 fL (79-100) Mean Corpuscular Hemoglobin 32 pg (25-35) Mean Corpuscular Hemoglobin Concent 33 g/dL (31-37) Red Cell Distribution Width 15.9 % (11.5-14.5) Platelet Count 227 x10^3/uL (140-400) Neutrophils (%) (Auto) 87 % (31-73) Lymphocytes (%) (Auto) 4 % (24-48) Monocytes (%) (Auto) 8 % (0-9) Eosinophils (%) (Auto) 1 % (0-3) Basophils (%) (Auto) 1 % (0-3) Neutrophils # (Auto) 18.5 x10^3/uL (1.8-7.7) Lymphocytes # (Auto) 0.9 x10^3/uL (1.0-4.8) Monocytes # (Auto) 1.7 x10^3/uL (0.0-1.1) Eosinophils # (Auto) 0.2 x10^3/uL (0.0-0.7) Basophils # (Auto) 0.1 x10^3/uL (0.0-0.2) Segmented Neutrophils % 88 % (35-66) Band Neutrophils % 3 % (0-9) Lymphocytes % 3 % (24-48) Monocytes % 4 % (0-10) Eosinophils % 1 % (0-5) Basophils % 1 % (0-3) Platelet Estimate Adequate (ADEQUATE) Phosphorus Level 10.0 mg/dL (2.6-4.7) Albumin 2.9 g/dL (3.4-5.0) O2 Saturation 97 % (92-99) Arterial Blood pH 7.33 (7.35-7.45) Arterial Blood pCO2 at Patient Temp 48 mmHg (35-46) Arterial Blood pO2 at Patient Temp 110 mmHg (75-108) Arterial Blood HCO3 25 mmol/L (21-28) Arterial Blood Base Excess -2 mmol/L (-3-3) FiO2 100/nrb Microbiology Micro Microbiology 04/19/21 Blood Culture - Preliminary, Resulted NO GROWTH AFTER 1 DAY Physical Exam HEENT: Neck Supple W Full Motion Chest: Symmetric LUNGS: Other (diminished bases) Heart: S1S2, RRR (sinus tachycardia with long first degree AV block) Abdomen: Soft N/T, Other (suprapubic cath to DD) Extremities: No Calf Tenderness Neurology: other (lethargic) Assessment Assessment 1. Dizziness; EKG with complete heart block; on BB at home. treated with Dopamine and required transcutaneous pacing. s/p temp pacemaker 2. Acute respiratory failure; multifactorial with CHF, AECOPD, and probable PNA 3. Acute on chronic diastolic CHF; appears compensated, Echo 01/11 with preserved LV systolic function 4. ESRD on HD; uremic. has been compliant with HD 5. Leukocytosis 6. Valvular disease 7. Moderate secondary pulmonary HTN 8. Mildly elevated LFTs 9. Encephalopathy; multifactorial 10. Bradyarrhythmia in the setting or uremia and hyperkalemia 11. Hyperkalemia 12. Metabolic encephalopathy 13. NSTEMI: demand mediated, stype 2 with culprits above Recommendations Discontinue metoprolol. Avoid AV terrence blocking agents Presently sinus tachycardia with long first degree AV block. TVP is off cur rently, titrate off dopamine. Continue levophed for now Fluid offloading via HD TTE today Supportive care Justicifation of Admission Dx: Justifications for Admission: Justification of Admission Dx: N/A MARIANN TIRADO MD 04/20/21 1553: CARDIO Progress Notes Plan Plan Pt. seen and examined. Agree with above JEWELRY APPRAISER note. Patient is likely is accelerated junctional rhythm with retrograde p-waves rather than sinus with 1st degree avb. Will continue fluid removal and plan for a right and left heart cath on . Thanks. SANJEEV PASTOR APRN Apr 20, 2021 14:39 MARIANN TIRADO MD Apr 20, 2021 15:53
--- NOTE | 2021-04-20 15:05 | NUR ---
SS following up with discharge planning. SS reviewed pt chart and discussed with pt RN. Pt is currently on Vapotherm at 65%. COVID19 negative. Pt had pacemaker placement on 04/19/2021. Pt on IV Zosyn and Levophed. Hemodialysis. Pt has outpatient hemodialysis chair time at [facility], Monday, , and Monday, ; fax [phone]. SS will continue to follow for discharge planning.
[2021-04-20 15:38] LABS: CHOLESTEROL/HDL RATIO 2.6
[2021-04-20 16:22] LABS: CALCIUM 8.6 mg/dL (8.5-10.1); GFR 12.1; POTASSIUM 4.6 mmol/L (3.5-5.1)
--- NOTE | 2021-04-20 19:14 | CARD ---
MR#: [id number] Date of Study: 04/20/2021 Ordering Physician: MARIANN TIRADO, Referring Physician: MARIANN TIRADO, Tech: Breanna Fortune, [facility] APPROVED REPORT EXAM: Two-dimensional and M-mode echocardiogram with Doppler and color Doppler. Other Information Quality : AverageHR: 110bpm INDICATION Congestive Heart Failure RISK FACTORS Hypertension 2D DIMENSIONS IVSd1.1 (0.7-1.1cm)Aortic Root(2D)3.7 (2.0-3.7cm) LVDd4.3 (3.9-5.9cm)LVOT Diameter2.0 (1.8-2.4cm) PWd1.0 (0.7-1.1cm)LVDs3.5 (2.5-4.0cm) FS (%) 18.7 %SV32.8 ml Aortic Valve AoV Peak Chip.417.6cm/sAoV VTI68.3cm AO Peak GR.69.8mmHgLVOT VTI 22.84cm AO Mean GR.46mmHgAI P 1/2 [id number] Mitral Valve MV E Uhvtmqht846.9cm/sMV E Peak Gr.144mmHg MV DECEL [id number] A Bfimlxnp06.7cm/s MV E Mean Gr.7mmHgE/A Ratio2.2 TDI Lateral E' P. V11.33cm/sMedial E' P. V6.05cm/s E/Lateral E'16.3E/Medial E'30.6 Tricuspid Valve TR P. [id number]/sTR Peak Gr.43mmHg LEFT VENTRICLE Technically difficult study. The left ventricle is normal size. There is borderline to mild concentr ic left ventricular hypertrophy. The left ventricular systolic function is normal. LV Ejection Fracti on of 55-60%. Septal motion consistent with conduction abnormality. The left ventricular diastolic fu nction and filling is normal for age. RIGHT VENTRICLE The right ventricle is borderline dilated. There is normal right ventricular wall thickness. The righ t ventricular systolic function is normal. There is a pacemaker lead in the right ventricle. ATRIA The left atrium size is normal. The right atrium size is normal. The interatrial septum is intact wit h no evidence for an atrial septal defect or patent foramen ovale as noted on 2-D or Doppler imaging. AORTIC VALVE The aortic valve is calcified and displays decreased opening. Doppler and Color Flow revealed trace t o mild aortic regurgitation. Calculated aortic valve area is 1.02 cm2 with maximum pressure gradient of 85 mmHg and mean pressure gradient of 53 mmHg. There appears to be moderate to moderately severe v alvular aortic stenosis. MITRAL VALVE The mitral valve is calcified and displays decreased opening. There is no evidence of mitral valve pr olapse. There is moderate mitral valve stenosis with a mean gradient of 7.01 mmHg. Doppler and Color- flow revealed trace to mild mitral regurgitation. TRICUSPID VALVE The tricuspid valve is not well visualized. Doppler and Color Flow revealed trace to mild tricuspid r egurgitation with an estimated PAP of 50 mmHg. PULMONIC VALVE The pulmonic valve is not well visualized. Doppler and Color Flow revealed trace pulmonic valvular re gurgitation. GREAT VESSELS The aortic root is normal in size. The IVC is normal in size and collapses >50% with inspiration. PERICARDIAL EFFUSION There is no evidence of significant pericardial effusion. Critical Notification Critical Value: No <Conclusion> Technically difficult study. The left ventricle is normal size. The left ventricular systolic function is grossly normal. LV Ejection Fraction of 55-60%. Septal motion consistent with conduction abnormality. There is borderline to mild concentric left ventricular hypertrophy. There is a pacemaker lead in the right ventricle. The aortic valve is calcified and displays decreased opening. Doppler and Color Flow revealed trace to mild aortic regurgitation. There appears to be moderate to moderately severe valvular aortic stenosis. The mitral valve is calcified and displays decreased opening. There is moderate mitral valve stenosis with a mean gradient of 7.01 mmHg. Doppler and Color-flow revealed trace to mild mitral regurgitation. Doppler and Color Flow revealed trace to mild tricuspid regurgitation with an estimated PAP of 50 mmH g. Signed by : Chuck Merritt MD Electronically Approved : 04/20/2021 19:14:30
[2021-04-21] VITALS (44 sets, daily range): BP systolic 94–150; BP diastolic 36–62
[2021-04-21 06:07] LABS: ALBUMIN 2.5 g/dL (3.4-5.0); ALBUMIN/GLOBULIN RATIO 0.5 (1.0-1.7); CALCIUM 8.7 mg/dL (8.5-10.1); CREATININE 6.4 mg/dL (0.7-1.3); GFR 9.1; POTASSIUM 4.4 mmol/L (3.5-5.1); TOTAL BILIRUBIN 0.7 mg/dL (0.2-1.0); TOTAL PROTEIN 7.4 g/dL (6.4-8.2)
[2021-04-21 06:14] LABS: BASO # 0.1 x10^3/uL (0.0-0.2); BASO % 1 % (0-3); EOS # 0.5 x10^3/uL (0.0-0.7); EOS % 4 % (0-3); HEMOGLOBIN 10.2 g/dL (13.0-17.5); LYMPH # 0.8 x10^3/uL (1.0-4.8); LYMPH % 6 % (24-48); MEAN CORPUSCULAR HEMOGLOBIN 32 pg (25-35); MEAN CORPUSCULAR HGB CONC 33 g/dL (31-37); MEAN CORPUSCULAR VOLUME 96 fL (79-100); MONO # 1.4 x10^3/uL (0.0-1.1); MONO % 12 % (0-9); NEUT # 9.3 x10^3/uL (1.8-7.7); NEUT % 77 % (31-73); PLATELET COUNT 209 x10^3/uL (140-400); RED BLOOD COUNT 3.22 x10^6/uL (4.30-5.70)
--- NOTE | 2021-04-21 07:28 | PDOC ---
Infectious Disease Note Subjective: Subjective Patient more alert today Remains restless and agitated Off BiPAP Afebrile Vital Signs: Vital Signs Vital Signs Date Time Temp Pulse Resp B/P (MAP) Pulse Ox O2 Delivery O2 Flow Rate FiO2 04/21/21 07:00 103 22 147/61 (89) 97 VAPOTHERM 25.0 04/21/21 04:00 99.7 99.7 Physical Exam: PHYSICAL EXAM GENERAL: Restless, more awake HEENT: Normocephalic, atraumatic. Anicteric. LUNGS: Crackles present, heart 100% paced. ABDOMEN: Soft, nontender, nondistended. EXTREMITIES: No edema, no cyanosis. GENITOURINARY: Right groin temporary pacemaker with line placed and looks clean. SPC in place clean DERMATOLOGIC: Warm, dry, no generalized rash. NEUROLOGIC: Alert awake agitated PSYCHIATRIC: Agitated MUSCULOSKELETAL: Changes suggestive of DJD. Medications: Inpatient Meds: Medications reviewed. Labs: Lab Laboratory Tests Test 04/20/21 08:00 04/20/21 15:30 04/21/21 05:30 O2 Saturation 97 % (92-99) Arterial Blood pH 7.33 (7.35-7.45) Arterial Blood pCO2 at Patient Temp 48 mmHg (35-46) Arterial Blood pO2 at Patient Temp 110 mmHg (75-108) Arterial Blood HCO3 25 mmol/L (21-28) Arterial Blood Base Excess -2 mmol/L (-3-3) FiO2 100/nrb Sodium Level 132 mmol/L (136-145) 131 mmol/L (136-145) Potassium Level 4.6 mmol/L (3.5-5.1) 4.4 mmol/L (3.5-5.1) Chloride Level 94 mmol/L (98-107) 92 mmol/L (98-107) Carbon Dioxide Level 30 mmol/L (21-32) 30 mmol/L (21-32) Anion Gap 8 (6-14) 9 (6-14) Blood Urea Nitrogen 31 mg/dL (8-26) 49 mg/dL (8-26) Creatinine 5.0 mg/dL (0.7-1.3) 6.4 mg/dL (0.7-1.3) Estimated GFR (Cockcroft-Gault) 12.1 9.1 Glucose Level 124 mg/dL (70-99) 104 mg/dL (70-99) Calcium Level 8.6 mg/dL (8.5-10.1) 8.7 mg/dL (8.5-10.1) White Blood Count 12.0 x10^3/uL (4.0-11.0) Red Blood Count 3.22 x10^6/uL (4.30-5.70) Hemoglobin 10.2 g/dL (13.0-17.5) Hematocrit 31.0 % (39.0-53.0) Mean Corpuscular Volume 96 fL (79-100) Mean Corpuscular Hemoglobin 32 pg (25-35) Mean Corpuscular Hemoglobin Concent 33 g/dL (31-37) Red Cell Distribution Width 16.0 % (11.5-14.5) Platelet Count 209 x10^3/uL (140-400) Neutrophils (%) (Auto) 77 % (31-73) Lymphocytes (%) (Auto) 6 % (24-48) Monocytes (%) (Auto) 12 % (0-9) Eosinophils (%) (Auto) 4 % (0-3) Basophils (%) (Auto) 1 % (0-3) Neutrophils # (Auto) 9.3 x10^3/uL (1.8-7.7) Lymphocytes # (Auto) 0.8 x10^3/uL (1.0-4.8) Monocytes # (Auto) 1.4 x10^3/uL (0.0-1.1) Eosinophils # (Auto) 0.5 x10^3/uL (0.0-0.7) Basophils # (Auto) 0.1 x10^3/uL (0.0-0.2) BUN/Creatinine Ratio 8 (6-20) Total Bilirubin 0.7 mg/dL (0.2-1.0) Aspartate Amino Transf (AST/SGOT) 25 U/L (15-37) Alanine Aminotransferase (ALT/SGPT) 35 U/L (16-63) Alkaline Phosphatase 162 U/L (46-116) Total Protein 7.4 g/dL (6.4-8.2) Albumin 2.5 g/dL (3.4-5.0) Albumin/Globulin Ratio 0.5 (1.0-1.7) Objective: Assessment: 1. Acute hypoxic respiratory failure, appears multifactorial. 2. Leukocytosis, appears reactive. 3. Complete heart block, status post temporary pacemaker placement, right groin, 04/19/2021. 4. End-stage renal disease, on hemodialysis. 5. Congestive heart failure. 6. Chronic obstructive pulmonary disease, pulmonary hypertension. 7. Benign prostatic hypertrophy. 8. Anemia. 9. History of pericardial effusion. 10. Hyponatremia. 11. Hyperkalemia. 12. Abnormal liver function tests. Plan: Plan of Care 1. Continue Zosyn, renal dosing. 2. Monitor labs and cultures. 3. Continue supportive care. 4. Temporary pacemaker and femoral line management as directed. 5. Maintain aspiration precaution. 6. Critically ill D/W BRYSON GARCES MD Apr 21, 2021 07:28
--- NOTE | 2021-04-21 07:58 | PDOC ---
PROGRESS NOTES Date of Service: DATE: 04/21/21 TIME: 07:57 Chief Complaint Chief Complaint VTE Prophylaxis Ordered VTE Prophylaxis Devices: Yes VTE Pharmacological Prophylaxi: Yes Assessment/Plan Assessment/Plan A/P: Acute encephalopathy - likely due to metabolic derangement, hypoxia, and CHB. no clear focal deficits neurologically Complete heart block - on external pacing, dopamine. Cardiology consulted./ ICU admitted. Acute respiratory failure with hypoxia - BIPAP. Likely fluid overload from acute diastolic CHF Metabolic acidosis - due to hypoxia, ESRD Acute diastolic CHF - will need UF with dialysis COPD - with likely exacerbation complicated by CHF. On bipap currently HTN - prn hydralazine ESRD on PD recently transitioned to HD - nephrology consulted for HD Mild Transaminitis - likely from acute CHF. Will f/u final COVID results Moderate protein malnutrition - will start early nutrition when more alert Anemia of ESRD - monitor Leukocytosis - meets SIRS, treating for sepsis due to COPD exacerbation/pneumonia with zosyn plan icu bed FEN -cardiac diet PPX - heparin FULL CODE Dispo - inpatient ICU nonrebreather mask at 100% FiO2. EKG with complete heart block; on BB at home. treated with Dopamine and required transcutaneous pacing. s/p temp pacemaker Continue Zosyn, renal dosing cc time 34 minutes Justifications for Admission Justifications for Admission Other Justification SBO History of Present Illness History of Present Illness dentification/Chief Complaint Chief Complaint Confusion Source Source: Patient History of Present Illness History of Present Illness Mr Grove is a 55yo M w/ PMHx CHF, COPD, HTN, ESRD on PD recently transitioned to HD who presents to the emergency room complaining of dizziness while carrying a box at home. Patient denies chest pains, chest congestion, nasal congestion. Patient states he feels a little short of breath, states he feels as if he is going to pass out. Patient denies actual syncopal episodes. He recently transitioned from PD to HD this past summer. WBC 13.4, Hb 11.6, platelets 330, NA 134, K5.1, BUN 62, CR 8.5, glucose 120 calcium 8.3, phosphorus 9.5, mag 1.9, bilirubin 0.3, AST 50, ALT 68, alk phos 295, albumin 3, troponin 0, lactate 0.9, NT proBNP greater than 35,000, ABG 7.2/48/203 Chest radiograph with patchy bilateral parenchymal opacities. Initial EKG appears to be third-degree heart block rate of [address] on external pacing, dopamine infusion He was hypoxic and confused in ED, initially attempted to get out of bed with significant O2 desaturations, requiring BIPAP. Admitted for further care to ICU Past Medical History Cardiovascular: No pertinent hx, HTN Pulmonary: Bronchitis, COPD, Other CENTRAL NERVOUS SYSTEM: Other GI: No pertinent hx, GI bleed Heme/Onc: Anemia NOS Hepatobiliary: No pertinent hx Psych: No pertinent hx Rheumatologic: No pertinent hx Infectious disease: Other Renal/: Chronic renal insuff, Chronic renal failure, UTI, Other Endocrine: No pertinent hx, Hyperparathyroidism Past Surgical History Past Surgical History: Other Family History Family History: Coronary Artery Disease Social History Smoke: No ALCOHOL: none Drugs: None Current Problem List Problem List Problems Medical Problems: (1) Community acquired pneumonia Status: Acute (2) ESRD (end stage renal disease) Status: Acute (3) Third degree heart block Status: Acute Current Medications Current Medications Current Medications Atropine Sulfate (ATROPINE 0.5mg SYRINGE) 0.5 mg 1X ONCE IV Last administered on 04/18/21at 23:38; Start 04/19/21 at 00:00; Stop 04/19/21 at 00:01; Status DC Dopamine HCl/ Dextrose 250 ml @ 13.125 mls/ hr 1X ONCE IV Last administered on 04/18/21at 23:49; Start 04/19/21 at 00:00; Stop 04/19/21 at 19:02 Sodium Chloride 500 ml @ 250 mls/hr 1X ONCE IV Last administered on 04/18/21at 23:54; Start 04/19/21 at 00:00; Stop 04/19/21 at 01:59; Status DC Ceftriaxone Sodium (Rocephin) 1 gm 1X ONCE IVP ; Start 04/19/21 at 00:30; Stop 04/19/21 at 00:29; Status DC Azithromycin 250 ml @ 250 mls/hr 1X ONCE IV ; Start 04/19/21 at 00:30; Stop 04/19/21 at 00:29; Status DC Piperacillin Sod/ Tazobactam Sod (Zosyn Per Pharmacy) 1 each PRN DAILY PRN MC SEE COMMENTS; Start 04/19/21 at 00:30 Piperacillin Sod/ Tazobactam Sod 2.25 gm/Sodium Chloride 50 ml @ 100 mls/hr Q8HRS IV Last administered on 04/19/21at 06:00; Start 04/19/21 at 00:30 Albumin Human 250 ml @ 62.5 mls/hr 1X ONCE IV Last administered on 04/19/21at 01:37; Start 04/19/21 at 02:00; Stop 04/19/21 at 05:59; Status DC Albumin Human 100 ml @ 100 mls/hr 1X ONCE IV Last administered on 04/19/21at 03:06; Start 04/19/21 at 03:30; Stop 04/19/21 at 04:29; Status DC Ondansetron HCl (Zofran) 4 mg PRN Q6HRS PRN IVP NAUSEA/VOMITING 1ST CHOICE Last administered on 04/19/21at 03:07; Start 04/19/21 at 03:00 Ondansetron HCl (Zofran) 4 mg STK-MED ONCE .ROUTE ; Start 04/19/21 at 02:59; Stop 04/19/21 at 02:59; Status DC Sodium Chloride 500 ml @ 250 mls/hr 1X ONCE IV Last administered on 04/19/21at 04:29; Start 04/19/21 at 04:00; Stop 04/19/21 at 05:59; Status DC Lorazepam (Ativan Inj) 2 mg STK-MED ONCE .ROUTE ; Start 04/19/21 at 05:41; Stop 04/19/21 at 05:41; Status DC Lorazepam (Ativan Inj) 1 mg 1X ONCE IVP Last administered on 04/19/21at 05:52; Start 04/19/21 at 06:30; Stop 04/19/21 at 06:31; Status DC Active Scripts Active Reported Ferric Citrate 210 Mg Tablet 210 Mg PO TIDAC Renagel (Sevelamer Hcl) 800 Mg Tablet 2 Tab PO TIDWMEALS Calcitriol 0.25 Mcg Capsule 1 Cap PO DAILY Furosemide 40 Mg Tablet 1 Tab PO DAILY Kapspargo Sprinkle (Metoprolol Succinate) 50 Mg Cap.spr.24 50 Mg PO DAILY Cinacalcet HCl 30 Mg Tablet 30 Mg PO QMWF Allergies Allergies: Coded Allergies: No Known Drug Allergies (Unverified , 02/17/21) 04-21 Off dopamine no further bradycardia or high grade blocks. Titrate off levophed Fluid offloading via HD Continue to optimize then plan for R/LHC 9 Acute encephalopathy - likely due to metabolic derangement, hypoxia, and CHB. no clear focal deficits neurologically Complete heart block - on external pacing, dopamine. Cardiology consulted./ ICU admitted. Acute respiratory failure with hypoxia - BIPAP. Likely fluid overload from acute diastolic CHF Metabolic acidosis - due to hypoxia, ESRD Acute diastolic CHF - will need UF with dialysis COPD - with likely exacerbation complicated by CHF. On bipap currently HTN - prn hydralazine ESRD on PD recently transitioned to HD - nephrology consulted for HD Mild Transaminitis - likely from acute CHF. Will f/u final COVID results Moderate protein malnutrition - will start early nutrition when more alert Anemia of ESRD - monitor Leukocytosis - meets SIRS, treating for sepsis due to COPD exacerbation/pneumonia with zosyn icu bed FEN -cardiac diet PPX - heparin FULL CODE Dispo - inpatient ICU nonrebreather mask at 100% FiO2. EKG with complete heart block; on BB at home. treated with Dopamine and required transcutaneous pacing. s/p temp pacemaker Continue Zosyn, renal dosing cc time 34 minutes Vitals Vitals Vital Signs Date Time Temp Pulse Resp B/P (MAP) Pulse Ox O2 Delivery O2 Flow Rate FiO2 04/21/21 07:00 103 22 147/61 (89) 97 VAPOTHERM 25.0 04/21/21 04:00 99.7 99.7 Physical Exam Physical Exam GENERAL: Somnolent. HEENT: Normocephalic, atraumatic. Anicteric. LUNGS: Crackles present, heart 100% paced. ABDOMEN: Soft, nontender, nondistended. EXTREMITIES: No edema, no cyanosis. GENITOURINARY: Right groin temporary pacemaker with line placed and looks clean. DERMATOLOGIC: Warm, dry, no generalized rash. NEUROLOGIC: Somnolent. PSYCHIATRIC: Unable to assess. MUSCULOSKELETAL: Changes suggestive of DJD. General: Alert, Oriented X3, Cooperative, No acute distress, Other (somnolent ) Heart: Regular rate, Normal S1, Other (100% vpaced ) Lungs: Clear Abdomen: Normal bowel sounds, Soft Extremities: No clubbing, No cyanosis, No edema Skin: No significant lesion Labs LABS SC: ORDERED: BCULT Procedure Result BLOOD CULTURE Preliminary NO GROWTH AFTER 2 DAYS PATIENT: FELICE GROVE ACCOUNT: [id number] : 1965 LOCATION: [address] [place] [address] AGE: 55 SEX: M EXAM STATUS: ADM IN ORD. PHYSICIAN: RUDI DAVALOS MD REASON: CHF? PROCEDURE: PORTABLE CHEST 1V Site ID: [id number] EXAMINATION: XR CHEST 1V. HISTORY: 55 years Male respiratory distress, CHF. COMPARISON: April 20, 2021. Findings: There is a improving bilateral perihilar infiltrates with the remaining catheter interstitial thickening seen bilaterally.. The heart size is enlarged. There is no effusion or pneumothorax. The mediastinum and gailleo appear unremarkable. Impression: Cardiomegaly. Improving perihilar infiltrates with remaining interstitial thickening likely interstitial edema. Electronically signed by: Olivia Patricia MD (04/21/2021 11:36 AM) [id number] DICTATED and SIGNED BY: OLIVIA PATRICIA MD DATE: 04/21/21 [id number] Laboratory Tests Test 04/20/21 08:00 04/20/21 15:30 04/21/21 05:30 O2 Saturation 97 % (92-99) Arterial Blood pH 7.33 (7.35-7.45) Arterial Blood pCO2 at Patient Temp 48 mmHg (35-46) Arterial Blood pO2 at Patient Temp 110 mmHg (75-108) Arterial Blood HCO3 25 mmol/L (21-28) Arterial Blood Base Excess -2 mmol/L (-3-3) FiO2 100/nrb Sodium Level 132 mmol/L (136-145) 131 mmol/L (136-145) Potassium Level 4.6 mmol/L (3.5-5.1) 4.4 mmol/L (3.5-5.1) Chloride Level 94 mmol/L (98-107) 92 mmol/L (98-107) Carbon Dioxide Level 30 mmol/L (21-32) 30 mmol/L (21-32) Anion Gap 8 (6-14) 9 (6-14) Blood Urea Nitrogen 31 mg/dL (8-26) 49 mg/dL (8-26) Creatinine 5.0 mg/dL (0.7-1.3) 6.4 mg/dL (0.7-1.3) Estimated GFR (Cockcroft-Gault) 12.1 9.1 Glucose Level 124 mg/dL (70-99) 104 mg/dL (70-99) Calcium Level 8.6 mg/dL (8.5-10.1) 8.7 mg/dL (8.5-10.1) White Blood Count 12.0 x10^3/uL (4.0-11.0) Red Blood Count 3.22 x10^6/uL (4.30-5.70) Hemoglobin 10.2 g/dL (13.0-17.5) Hematocrit 31.0 % (39.0-53.0) Mean Corpuscular Volume 96 fL (79-100) Mean Corpuscular Hemoglobin 32 pg (25-35) Mean Corpuscular Hemoglobin Concent 33 g/dL (31-37) Red Cell Distribution Width 16.0 % (11.5-14.5) Platelet Count 209 x10^3/uL (140-400) Neutrophils (%) (Auto) 77 % (31-73) Lymphocytes (%) (Auto) 6 % (24-48) Monocytes (%) (Auto) 12 % (0-9) Eosinophils (%) (Auto) 4 % (0-3) Basophils (%) (Auto) 1 % (0-3) Neutrophils # (Auto) 9.3 x10^3/uL (1.8-7.7) Lymphocytes # (Auto) 0.8 x10^3/uL (1.0-4.8) Monocytes # (Auto) 1.4 x10^3/uL (0.0-1.1) Eosinophils # (Auto) 0.5 x10^3/uL (0.0-0.7) Basophils # (Auto) 0.1 x10^3/uL (0.0-0.2) BUN/Creatinine Ratio 8 (6-20) Total Bilirubin 0.7 mg/dL (0.2-1.0) Aspartate Amino Transf (AST/SGOT) 25 U/L (15-37) Alanine Aminotransferase (ALT/SGPT) 35 U/L (16-63) Alkaline Phosphatase 162 U/L (46-116) Total Protein 7.4 g/dL (6.4-8.2) Albumin 2.5 g/dL (3.4-5.0) Albumin/Globulin Ratio 0.5 (1.0-1.7) Assessment and Plan Assessmemt and Plan Problems Medical Problems: (1) Community acquired pneumonia Status: Acute (2) ESRD (end stage renal disease) Status: Acute (3) Third degree heart block Status: Acute Comment Review of Relevant I have reviewed the following items allyson (where applicable) has been applied. Labs Laboratory Tests Test 04/19/21 08:55 04/19/21 15:40 04/20/21 05:25 04/20/21 08:00 Prothrombin Time 14.4 SEC (11.7-14.0) Prothromb Time International Ratio 1.1 (0.8-1.1) Activated Partial Thromboplast Time 35 SEC (24-38) Thyroid Stimulating Hormone (TSH) 5.846 uIU/mL (0.358-3.74) Hepatitis B Surface Antigen Nonreactive (Nonreactive) Hepatitis B Surface Antibody Nonreactive Sodium Level 129 mmol/L (136-145) 131 mmol/L (136-145) Potassium Level 7.0 mmol/L (3.5-5.1) 5.5 mmol/L (3.5-5.1) Chloride Level 93 mmol/L (98-107) 90 mmol/L (98-107) Carbon Dioxide Level 21 mmol/L (21-32) 25 mmol/L (21-32) Anion Gap 15 (6-14) 16 (6-14) Blood Urea Nitrogen 70 mg/dL (8-26) 56 mg/dL (8-26) Creatinine 9.1 mg/dL (0.7-1.3) 7.7 mg/dL (0.7-1.3) Estimated GFR (Cockcroft-Gault) 6.0 7.3 Glucose Level 109 mg/dL (70-99) 124 mg/dL (70-99) Calcium Level 7.9 mg/dL (8.5-10.1) 8.1 mg/dL (8.5-10.1) Magnesium Level 1.9 mg/dL (1.8-2.4) Troponin I Quantitative 0.504 ng/mL (0.000-0.055) 0.450 ng/mL (0.000-0.055) White Blood Count 21.4 x10^3/uL (4.0-11.0) Red Blood Count 3.50 x10^6/uL (4.30-5.70) Hemoglobin 11.1 g/dL (13.0-17.5) Hematocrit 33.5 % (39.0-53.0) Mean Corpuscular Volume 96 fL (79-100) Mean Corpuscular Hemoglobin 32 pg (25-35) Mean Corpuscular Hemoglobin Concent 33 g/dL (31-37) Red Cell Distribution Width 15.9 % (11.5-14.5) Platelet Count 227 x10^3/uL (140-400) Neutrophils (%) (Auto) 87 % (31-73) Lymphocytes (%) (Auto) 4 % (24-48) Monocytes (%) (Auto) 8 % (0-9) Eosinophils (%) (Auto) 1 % (0-3) Basophils (%) (Auto) 1 % (0-3) Neutrophils # (Auto) 18.5 x10^3/uL (1.8-7.7) Lymphocytes # (Auto) 0.9 x10^3/uL (1.0-4.8) Monocytes # (Auto) 1.7 x10^3/uL (0.0-1.1) Eosinophils # (Auto) 0.2 x10^3/uL (0.0-0.7) Basophils # (Auto) 0.1 x10^3/uL (0.0-0.2) Segmented Neutrophils % 88 % (35-66) Band Neutrophils % 3 % (0-9) Lymphocytes % 3 % (24-48) Monocytes % 4 % (0-10) Eosinophils % 1 % (0-5) Basophils % 1 % (0-3) Platelet Estimate Adequate (ADEQUATE) Phosphorus Level 10.0 mg/dL (2.6-4.7) Albumin 2.9 g/dL (3.4-5.0) Triglycerides Level 107 mg/dL (0-150) Cholesterol Level 96 mg/dL (0-200) LDL Cholesterol, Calculated 38 mg/dL (0-100) VLDL Cholesterol, Calculated 21 mg/dL (0-40) Non-HDL Cholesterol Calculated 59 mg/dL (0-129) HDL Cholesterol 37 mg/dL (40-60) Cholesterol/HDL Ratio 2.6 O2 Saturation 97 % (92-99) Arterial Blood pH 7.33 (7.35-7.45) Arterial Blood pCO2 at Patient Temp 48 mmHg (35-46) Arterial Blood pO2 at Patient Temp 110 mmHg (75-108) Arterial Blood HCO3 25 mmol/L (21-28) Arterial Blood Base Excess -2 mmol/L (-3-3) FiO2 100/nrb Test 04/20/21 15:30 04/21/21 05:30 Sodium Level 132 mmol/L (136-145) 131 mmol/L (136-145) Potassium Level 4.6 mmol/L (3.5-5.1) 4.4 mmol/L (3.5-5.1) Chloride Level 94 mmol/L (98-107) 92 mmol/L (98-107) Carbon Dioxide Level 30 mmol/L (21-32) 30 mmol/L (21-32) Anion Gap 8 (6-14) 9 (6-14) Blood Urea Nitrogen 31 mg/dL (8-26) 49 mg/dL (8-26) Creatinine 5.0 mg/dL (0.7-1.3) 6.4 mg/dL (0.7-1.3) Estimated GFR (Cockcroft-Gault) 12.1 9.1 Glucose Level 124 mg/dL (70-99) 104 mg/dL (70-99) Calcium Level 8.6 mg/dL (8.5-10.1) 8.7 mg/dL (8.5-10.1) White Blood Count 12.0 x10^3/uL (4.0-11.0) Red Blood Count 3.22 x10^6/uL (4.30-5.70) Hemoglobin 10.2 g/dL (13.0-17.5) Hematocrit 31.0 % (39.0-53.0) Mean Corpuscular Volume 96 fL (79-100) Mean Corpuscular Hemoglobin 32 pg (25-35) Mean Corpuscular Hemoglobin Concent 33 g/dL (31-37) Red Cell Distribution Width 16.0 % (11.5-14.5) Platelet Count 209 x10^3/uL (140-400) Neutrophils (%) (Auto) 77 % (31-73) Lymphocytes (%) (Auto) 6 % (24-48) Monocytes (%) (Auto) 12 % (0-9) Eosinophils (%) (Auto) 4 % (0-3) Basophils (%) (Auto) 1 % (0-3) Neutrophils # (Auto) 9.3 x10^3/uL (1.8-7.7) Lymphocytes # (Auto) 0.8 x10^3/uL (1.0-4.8) Monocytes # (Auto) 1.4 x10^3/uL (0.0-1.1) Eosinophils # (Auto) 0.5 x10^3/uL (0.0-0.7) Basophils # (Auto) 0.1 x10^3/uL (0.0-0.2) BUN/Creatinine Ratio 8 (6-20) Total Bilirubin 0.7 mg/dL (0.2-1.0) Aspartate Amino Transf (AST/SGOT) 25 U/L (15-37) Alanine Aminotransferase (ALT/SGPT) 35 U/L (16-63) Alkaline Phosphatase 162 U/L (46-116) Total Protein 7.4 g/dL (6.4-8.2) Albumin 2.5 g/dL (3.4-5.0) Albumin/Globulin Ratio 0.5 (1.0-1.7) Laboratory Tests Test 04/20/21 08:00 04/20/21 15:30 04/21/21 05:30 O2 Saturation 97 % (92-99) Arterial Blood pH 7.33 (7.35-7.45) Arterial Blood pCO2 at Patient Temp 48 mmHg (35-46) Arterial Blood pO2 at Patient Temp 110 mmHg (75-108) Arterial Blood HCO3 25 mmol/L (21-28) Arterial Blood Base Excess -2 mmol/L (-3-3) FiO2 100/nrb Sodium Level 132 mmol/L (136-145) 131 mmol/L (136-145) Potassium Level 4.6 mmol/L (3.5-5.1) 4.4 mmol/L (3.5-5.1) Chloride Level 94 mmol/L (98-107) 92 mmol/L (98-107) Carbon Dioxide Level 30 mmol/L (21-32) 30 mmol/L (21-32) Anion Gap 8 (6-14) 9 (6-14) Blood Urea Nitrogen 31 mg/dL (8-26) 49 mg/dL (8-26) Creatinine 5.0 mg/dL (0.7-1.3) 6.4 mg/dL (0.7-1.3) Estimated GFR (Cockcroft-Gault) 12.1 9.1 Glucose Level 124 mg/dL (70-99) 104 mg/dL (70-99) Calcium Level 8.6 mg/dL (8.5-10.1) 8.7 mg/dL (8.5-10.1) White Blood Count 12.0 x10^3/uL (4.0-11.0) Red Blood Count 3.22 x10^6/uL (4.30-5.70) Hemoglobin 10.2 g/dL (13.0-17.5) Hematocrit 31.0 % (39.0-53.0) Mean Corpuscular Volume 96 fL (79-100) Mean Corpuscular Hemoglobin 32 pg (25-35) Mean Corpuscular Hemoglobin Concent 33 g/dL (31-37) Red Cell Distribution Width 16.0 % (11.5-14.5) Platelet Count 209 x10^3/uL (140-400) Neutrophils (%) (Auto) 77 % (31-73) Lymphocytes (%) (Auto) 6 % (24-48) Monocytes (%) (Auto) 12 % (0-9) Eosinophils (%) (Auto) 4 % (0-3) Basophils (%) (Auto) 1 % (0-3) Neutrophils # (Auto) 9.3 x10^3/uL (1.8-7.7) Lymphocytes # (Auto) 0.8 x10^3/uL (1.0-4.8) Monocytes # (Auto) 1.4 x10^3/uL (0.0-1.1) Eosinophils # (Auto) 0.5 x10^3/uL (0.0-0.7) Basophils # (Auto) 0.1 x10^3/uL (0.0-0.2) BUN/Creatinine Ratio 8 (6-20) Total Bilirubin 0.7 mg/dL (0.2-1.0) Aspartate Amino Transf (AST/SGOT) 25 U/L (15-37) Alanine Aminotransferase (ALT/SGPT) 35 U/L (16-63) Alkaline Phosphatase 162 U/L (46-116) Total Protein 7.4 g/dL (6.4-8.2) Albumin 2.5 g/dL (3.4-5.0) Albumin/Globulin Ratio 0.5 (1.0-1.7) Microbiology 04/19/21 Blood Culture - Preliminary, Resulted NO GROWTH AFTER 2 DAYS Medications Current Medications Atropine Sulfate (ATROPINE 0.5mg SYRINGE) 0.5 mg 1X ONCE IV Last administered on 04/18/21at 23:38; Start 04/19/21 at 00:00; Stop 04/19/21 at 00:01; Status DC Dopamine HCl/ Dextrose 250 ml @ 13.125 mls/ hr 1X ONCE IV Last administered on 04/18/21at 23:49; Start 04/19/21 at 00:00; Stop 04/19/21 at 10:30; Status DC Sodium Chloride 500 ml @ 250 mls/hr 1X ONCE IV Last administered on 04/18/21at 23:54; Start 04/19/21 at 00:00; Stop 04/19/21 at 01:59; Status DC Ceftriaxone Sodium (Rocephin) 1 gm 1X ONCE IVP ; Start 04/19/21 at 00:30; Stop 04/19/21 at 00:29; Status DC Azithromycin 250 ml @ 250 mls/hr 1X ONCE IV ; Start 04/19/21 at 00:30; Stop 04/19/21 at 00:29; Status DC Piperacillin Sod/ Tazobactam Sod (Zosyn Per Pharmacy) 1 each PRN DAILY PRN MC SEE COMMENTS; Start 04/19/21 at 00:30 Piperacillin Sod/ Tazobactam Sod 2.25 gm/Sodium Chloride 50 ml @ 100 mls/hr Q8HRS IV Last administered on 04/20/21at 21:35; Start 04/19/21 at 00:30 Albumin Human 250 ml @ 62.5 mls/hr 1X ONCE IV Last administered on 04/19/21at 01:37; Start 04/19/21 at 02:00; Stop 04/19/21 at 05:59; Status DC Albumin Human 100 ml @ 100 mls/hr 1X ONCE IV Last administered on 04/19/21at 03:06; Start 04/19/21 at 03:30; Stop 04/19/21 at 04:29; Status DC Ondansetron HCl (Zofran) 4 mg PRN Q6HRS PRN IVP NAUSEA/VOMITING 1ST CHOICE Last administered on 04/19/21at 03:07; Start 04/19/21 at 03:00; Stop 04/19/21 at 07:11; Status DC Ondansetron HCl (Zofran) 4 mg STK-MED ONCE .ROUTE ; Start 04/19/21 at 02:59; Stop 04/19/21 at 02:59; Status DC Sodium Chloride 500 ml @ 250 mls/hr 1X ONCE IV Last administered on 04/19/21at 04:29; Start 04/19/21 at 04:00; Stop 04/19/21 at 05:59; Status DC Lorazepam (Ativan Inj) 2 mg STK-MED ONCE .ROUTE ; Start 04/19/21 at 05:41; Stop 04/19/21 at 05:41; Status DC Lorazepam (Ativan Inj) 1 mg 1X ONCE IVP Last administered on 04/19/21at 05:52; Start 04/19/21 at 06:30; Stop 04/19/21 at 06:31; Status DC Ondansetron HCl (Zofran) 4 mg PRN Q4HRS PRN IVP NAUSEA/VOMITING Last administered on 04/19/21at 07:15; Start 04/19/21 at 07:00 Guaifenesin (Robitussin Dm) 10 ml PRN Q6HRS PRN PO COUGH; Start 04/19/21 at 07:00 Heparin Sodium (Porcine) (Heparin Sodium) 5,000 unit Q8HRS SQ Last administered on 04/20/21at 21:38; Start 04/19/21 at 14:00 Hydralazine HCl (Apresoline Inj) 10 mg PRN Q4HRS PRN IVP ELEVATED BP, SEE COMMENTS; Start 04/19/21 at 07:00 Acetaminophen (Tylenol) 650 mg PRN Q6HRS PRN PO MILD PAIN / TEMP > 100.3'F; Start 04/19/21 at 07:00 Fentanyl Citrate (Fentanyl 2ml Vial) 25 mcg PRN Q3HRS PRN IVP SEVERE PAIN 7-10 Last administered on 04/19/21at 07:50; Start 04/19/21 at 07:00 Sevelamer Carbonate (Renvela) 1,600 mg TIDWMEALS PO Last administered on 04/20/21at 16:41; Start 04/19/21 at 08:00 Lorazepam (Ativan Inj) 1 mg PRN Q4HRS PRN IVP ANXIETY / AGITATION Last administered on 04/19/21at 07:51; Start 04/19/21 at 07:45; Stop 04/21/21 at 07:55; Status DC Dopamine HCl/ Dextrose 250 ml @ 13.988 mls/ hr CONT PRN IV SEE I/O RECORD Last administered on 04/20/21at 11:35; Start 04/19/21 at 09:00 Lidocaine HCl (Lidocaine 1% 20ml Vial) 20 ml STK-MED ONCE .ROUTE ; Start 04/19/21 at 09:01; Stop 04/19/21 at 09:02; Status DC Heparin Sodium/ Sodium Chloride 500 ml @ As Directed STK-MED ONCE .ROUTE ; Start 04/19/21 at 09:02; Stop 04/19/21 at 09:02; Status DC Heparin Sodium/ Sodium Chloride (HEPARIN for ARTERIAL LINE FLUSH) 1,000 unit 1X ONCE IART Last administered on 04/19/21at 09:15; Start 04/19/21 at 09:15; Stop 04/19/21 at 09:30; Status DC Lidocaine HCl (Lidocaine 1% 20ml Vial) 20 ml 1X ONCE INJ Last administered on 04/19/21at 09:46; Start 04/19/21 at 09:15; Stop 04/19/21 at 09:30; Status DC Fentanyl Citrate (Fentanyl 2ml Vial) 100 mcg PRN Q2HR PRN IVP SEVERE PAIN 7-10, 2ND CHOICE Last administered on 04/20/21at 14:05; Start 04/19/21 at 09:15 Lorazepam (Ativan Inj) 2 mg PRN Q2HRS PRN IVP ANXIETY / AGITATION Last administered on 04/20/21at 14:06; Start 04/19/21 at 09:15 Norepinephrine Bitartrate 8 mg/ Dextrose 258 ml @ 14.435 mls/ hr CONT PRN IV PER PROTOCOL Last administered on 04/20/21at 16:38; Start 04/19/21 at 10:15 Epinephrine HCl (Adrenalin) 1 mg STK-MED ONCE .ROUTE ; Start 04/19/21 at 10:18; Stop 04/19/21 at 10:18; Status DC Heparin Sodium/ Sodium Chloride 500 ml @ As Directed STK-MED ONCE .ROUTE ; Start 04/19/21 at 10:30; Stop 04/19/21 at 10:30; Status DC Iodixanol (Visipaque 320) 100 ml STK-MED ONCE .ROUTE ; Start 04/19/21 at 10:32; Stop 04/19/21 at 10:32; Status DC Midazolam HCl (Versed) 2 mg STK-MED ONCE .ROUTE ; Start 04/19/21 at 10:34; Stop 04/19/21 at 10:34; Status DC Fentanyl Citrate (Fentanyl 2ml Vial) 100 mcg STK-MED ONCE .ROUTE ; Start 04/19/21 at 10:34; Stop 04/19/21 at 10:35; Status DC Heparin Sodium/ Sodium Chloride 500 ml @ As Directed STK-MED ONCE .ROUTE ; Start 04/19/21 at 10:44; Stop 04/19/21 at 10:44; Status DC Midazolam HCl (Versed) 2 mg 1X ONCE IV Last administered on 04/19/21at 11:13; Start 04/19/21 at 11:00; Stop 04/19/21 at 11:02; Status DC Fentanyl Citrate (Fentanyl 2ml Vial) 100 mcg 1X ONCE IV Last administered on 04/19/21at 11:13; Start 04/19/21 at 11:00; Stop 04/19/21 at 11:02; Status DC Epinephrine HCl (EPINEPHrine SYRINGE) 0.5 mg 1X ONCE IV Last administered on 04/19/21at 10:17; Start 04/19/21 at 10:17; Stop 04/19/21 at 11:02; Status DC Albumin Human 200 ml @ 200 mls/hr 1X PRN PRN IV Hypotension; Start 04/19/21 at 14:00; Stop 04/19/21 at 19:59; Status DC Info (PHARMACY MONITORING -- do not chart) 1 each PRN DAILY PRN MC SEE COMMENTS; Start 04/19/21 at 14:00 Info (PHARMACY MONITORING -- do not chart) 1 each PRN DAILY PRN MC SEE COMMENTS; Start 04/19/21 at 18:15 Sodium Chloride 1,000 ml @ 1,000 mls/hr Q1H PRN IV hypotension; Start 04/20/21 at 08:00; Stop 04/20/21 at 13:59; Status DC Albumin Human 200 ml @ 200 mls/hr 1X PRN PRN IV Hypotension; Start 04/20/21 at 08:00; Stop 04/20/21 at 13:59; Status DC Sodium Chloride 1,000 ml @ 400 mls/hr Q2H30M PRN IV PATENCY; Start 04/20/21 at 08:00; Stop 04/20/21 at 19:59; Status DC Lidocaine HCl (Xylocaine-Mpf 1% 2ml Vial) 2 ml 1X PRN PRN INJ FOR DIALYSIS; Start 04/20/21 at 08:00; Stop 04/21/21 at 07:59 Info (PHARMACY MONITORING -- do not chart) 1 each PRN DAILY PRN MC SEE COMMENTS; Start 04/20/21 at 08:00; Status UNV Info (PHARMACY MONITORING -- do not chart) 1 each PRN DAILY PRN MC SEE COMMENTS; Start 04/20/21 at 08:00 Sterile Water (WATER for RESP) 1,000 ml CONT PRN INH VIA VAPOTHERM DEVICE Last administered on 04/20/21at 20:28; Start 04/20/21 at 11:15 Active Scripts Active Reported Tums (Calcium Carbonate) 200 Mg Tab.chew 400 Mg PO HS Sensipar (Cinacalcet Hcl) 60 Mg Tablet 1 Tab PO DAILY 30 Days Ferric Citrate 210 Mg Tablet 2 Tab PO TID 30 Days Lasix (Furosemide) 40 Mg Tablet 40 Mg PO BID Renagel (Sevelamer Hcl) 800 Mg Tablet 2 Tab PO TIDWMEALS Kapspargo Sprinkle (Metoprolol Succinate) 50 Mg Cap.spr.24 50 Mg PO DAILY Vitals/I & O Vital Sign - Last 24 Hours 04/20/21 04/20/21 04/20/21 04/20/21 08:00 08:00 08:00 08:05 Temp 98.5 98.5 Pulse 74 79 Resp 16 20 B/P (MAP) 112/52 (72) 101/48 (65) Pulse Ox 99 95 O2 Delivery Non-Rebreather NonRebreather Mask NonRebreather Mask O2 Flow Rate 15.0 15.0 04/20/21 04/20/21 04/20/21 04/20/21 09:00 11:00 11:09 11:58 Pulse 75 69 Resp 16 20 20 B/P (MAP) 106/48 (67) 101/41 (61) Pulse Ox 99 95 97 96 O2 Delivery NonRebreather Mask VAPOTHERM Vapotherm VAPOTHERM O2 Flow Rate 15.0 20.0 25.0 25.0 04/20/21 04/20/21 04/20/21 04/20/21 12:00 12:00 12:00 12:00 Pulse 74 114 113 Resp 22 B/P (MAP) 112/52 (72) 106/52 (70) 113/58 (76) Pulse Ox 93 O2 Delivery VAPOTHERM Non-Rebreather O2 Flow Rate 25.0 15.0 04/20/21 04/20/21 04/20/21 04/20/21 12:00 12:18 13:00 14:00 Pulse 110 109 Resp 22 22 B/P (MAP) 104/53 (70) 111/53 (72) Pulse Ox 94 92 94 O2 Delivery Non-Rebreather Vapotherm VAPOTHERM VAPOTHERM O2 Flow Rate 15.0 25.0 25.0 25.0 04/20/21 04/20/21 04/20/21 04/20/21 14:05 14:11 15:00 15:51 Pulse 111 Resp 20 22 16 B/P (MAP) 116/60 (78) Pulse Ox 96 94 94 98 O2 Delivery vapotherm Vapotherm VAPOTHERM Nasal Cannula O2 Flow Rate 25.0 25.0 25.0 04/20/21 04/20/21 04/20/21 04/20/21 16:00 16:00 16:00 16:00 Pulse 110 109 Resp 20 B/P (MAP) 103/51 (68) 101/50 (67) Pulse Ox 94 94 O2 Delivery Non-Rebreather VAPOTHERM Vapotherm O2 Flow Rate 15.0 25.0 25.0 04/20/21 04/20/21 04/20/21 04/20/21 17:00 18:00 19:00 20:00 Temp 98.3 98.5 98.3 98.5 Pulse 107 107 106 107 Resp 20 20 22 22 B/P (MAP) 116/58 (77) 133/75 (94) 121/61 (81) 106/52 (70) Pulse Ox 98 98 97 94 O2 Delivery VAPOTHERM VAPOTHERM VAPOTHERM VAPOTHERM O2 Flow Rate 25.0 25.0 25.0 25.0 04/20/21 04/20/21 04/20/21 04/20/21 20:00 20:00 20:26 21:00 Pulse 107 112 Resp 20 B/P (MAP) 106/52 (70) 115/59 (77) Pulse Ox 93 96 O2 Delivery Vapotherm Vapotherm VAPOTHERM O2 Flow Rate 25.0 25.0 04/20/21 04/20/21 04/20/21 04/20/21 22:00 22:40 23:00 23:59 Pulse 106 106 Resp 22 22 B/P (MAP) 117/58 (77) 120/53 (75) Pulse Ox 98 96 99 O2 Delivery VAPOTHERM Vapotherm VAPOTHERM Vapotherm O2 Flow Rate 25.0 25.0 25.0 04/21/21 04/21/21 04/21/21 04/21/21 00:00 00:00 01:00 01:30 Temp 98.7 98.7 Pulse 106 107 104 Resp 24 22 B/P (MAP) 120/60 (80) 106/52 (70) 123/57 (79) Pulse Ox 95 98 96 O2 Delivery VAPOTHERM VAPOTHERM Vapotherm O2 Flow Rate 25.0 25.0 25.0 04/21/21 04/21/21 04/21/21 04/21/21 02:00 03:00 03:22 04:00 Temp 99.7 99.7 Pulse 101 101 101 Resp 20 22 20 B/P (MAP) 127/56 (79) 143/61 (88) 120/52 (74) Pulse Ox 100 100 95 100 O2 Delivery VAPOTHERM VAPOTHERM Vapotherm VAPOTHERM O2 Flow Rate 25.0 25.0 25.0 25.0 04/21/21 04/21/21 04/21/21 04/21/21 04:00 04:00 05:00 05:40 Pulse 101 98 Resp 24 B/P (MAP) 106/52 (70) 128/56 (80) Pulse Ox 98 93 O2 Delivery Vapotherm VAPOTHERM Vapotherm O2 Flow Rate 25.0 25.0 04/21/21 04/21/21 06:00 07:00 Pulse 100 103 Resp 22 22 B/P (MAP) 132/56 (81) 147/61 (89) Pulse Ox 99 97 O2 Delivery VAPOTHERM VAPOTHERM O2 Flow Rate 25.0 25.0 Intake and Output 04/20/21 04/20/21 04/21/21 15:00 23:00 07:00 Intake Total 421 ml Output Total 0 ml 15 ml 50 ml Balance 0 ml -15 ml 371 ml Justicifation of Admission Dx: Justifications for Admission: Justification of Admission Dx: N/A ORQUIDEA GAMINO MD Apr 21, 2021 07:58
[2021-04-21] MEDS: HEPARIN for SUB-Q USE 5,000 UNIT/ML VIAL. SQ SCH ×3 (08:34→21:08)
[2021-04-21] MEDS: PIPERACILLIN/TAZOBACTAM 2.25 GM in IV NORMAL SALINE 50ML 50 ML IV SCH ×3 (08:34→21:08)
[2021-04-21] MEDS: SEVELAMER CARBONATE 800 MG TABLET. PO SCH ×3 (08:35→16:21)
[2021-04-21] MEDS: NOREPINEPHRINE VIAL 8 MG in IV DEXTROSE 5% 250 ML IV PRN (08:55)
--- NOTE | 2021-04-21 09:27 | PDOC ---
SANJEEV PASTOR RHINOLOGIST 04/21/21 0927: CARDIO Progress Notes Date and Time Date of Service 04/21/2021 Time of Evaluation 0900 Subjective Subjective: No Chest Pain, No shortness of breath, No Palpitations Vitals Vitals Vital Signs Date Time Temp Pulse Resp B/P (MAP) Pulse Ox O2 Delivery O2 Flow Rate FiO2 04/21/21 08:25 96 Vapotherm 25.0 04/21/21 08:00 04/21/21 07:00 103 22 04/21/21 04:00 99.7 99.7 Weight Weight [ ] Input and Output Intake and Output Intake and Output 04/21/21 07:00 Intake Total 421 ml Output Total 65 ml Balance 356 ml Intake Oral 240 ml IV Total 181 ml Output Urine Total 65 ml Laboratory Labs Laboratory Tests Test 04/20/21 15:30 04/21/21 05:30 Sodium Level 132 mmol/L (136-145) 131 mmol/L (136-145) Potassium Level 4.6 mmol/L (3.5-5.1) 4.4 mmol/L (3.5-5.1) Chloride Level 94 mmol/L (98-107) 92 mmol/L (98-107) Carbon Dioxide Level 30 mmol/L (21-32) 30 mmol/L (21-32) Anion Gap 8 (6-14) 9 (6-14) Blood Urea Nitrogen 31 mg/dL (8-26) 49 mg/dL (8-26) Creatinine 5.0 mg/dL (0.7-1.3) 6.4 mg/dL (0.7-1.3) Estimated GFR (Cockcroft-Gault) 12.1 9.1 Glucose Level 124 mg/dL (70-99) 104 mg/dL (70-99) Calcium Level 8.6 mg/dL (8.5-10.1) 8.7 mg/dL (8.5-10.1) White Blood Count 12.0 x10^3/uL (4.0-11.0) Red Blood Count 3.22 x10^6/uL (4.30-5.70) Hemoglobin 10.2 g/dL (13.0-17.5) Hematocrit 31.0 % (39.0-53.0) Mean Corpuscular Volume 96 fL (79-100) Mean Corpuscular Hemoglobin 32 pg (25-35) Mean Corpuscular Hemoglobin Concent 33 g/dL (31-37) Red Cell Distribution Width 16.0 % (11.5-14.5) Platelet Count 209 x10^3/uL (140-400) Neutrophils (%) (Auto) 77 % (31-73) Lymphocytes (%) (Auto) 6 % (24-48) Monocytes (%) (Auto) 12 % (0-9) Eosinophils (%) (Auto) 4 % (0-3) Basophils (%) (Auto) 1 % (0-3) Neutrophils # (Auto) 9.3 x10^3/uL (1.8-7.7) Lymphocytes # (Auto) 0.8 x10^3/uL (1.0-4.8) Monocytes # (Auto) 1.4 x10^3/uL (0.0-1.1) Eosinophils # (Auto) 0.5 x10^3/uL (0.0-0.7) Basophils # (Auto) 0.1 x10^3/uL (0.0-0.2) BUN/Creatinine Ratio 8 (6-20) Total Bilirubin 0.7 mg/dL (0.2-1.0) Aspartate Amino Transf (AST/SGOT) 25 U/L (15-37) Alanine Aminotransferase (ALT/SGPT) 35 U/L (16-63) Alkaline Phosphatase 162 U/L (46-116) Total Protein 7.4 g/dL (6.4-8.2) Albumin 2.5 g/dL (3.4-5.0) Albumin/Globulin Ratio 0.5 (1.0-1.7) Microbiology Micro Microbiology 04/19/21 Blood Culture - Preliminary, Resulted NO GROWTH AFTER 2 DAYS Physical Exam HEENT: Neck Supple W Full Motion Chest: Symmetric LUNGS: Other (basilar crackles) Heart: RRR (Accelerated junctional) Abdomen: Soft N/T, Other (suprapubic cath to DD) Extremities: No Calf Tenderness Neurology: alert, oriented, follow commands, other (lethargic) Assessment Assessment 1. Dizziness; EKG with complete heart block; on BB at home. treated with Dopamine and required transcutaneous pacing. s/p temp pacemaker 2. Acute respiratory failure; multifactorial with CHF, AECOPD, and probable PNA 3. Acute on chronic diastolic CHF; appears compensated, Echo 01/11 with preserved LV systolic function 4. ESRD on HD; uremic. has been compliant with HD 5. Leukocytosis 6. Valvular disease: moderate to severe and moderate MS 7. Moderate secondary pulmonary HTN 8. Mildly elevated LFTs 9. Encephalopathy; multifactorial. better 10. Arrhythmia: noted with accelerated junctional when on pressor mostly and off pressor noted with higg grade block in the 50s with BP marginal 11. Hyperkalemia: resolved with HD 12. Metabolic encephalopathy 13. NSTEMI: demand mediated, type 2 with culprits above Recommendations Hold metoprolol. ASA/statin TVP is off currently. Continue levophed to keep MAP>65. May need PPM Fluid offloading via HD Possible R/LHC tomorrow if no immediate need for PPM. Supportive care Justicifation of Admission Dx: Justifications for Admission: Justification of Admission Dx: N/A MARIANN TIRADO MD 04/21/21 1821: CARDIO Progress Notes Plan Plan Pt. seen and examined. Agree with above PHARMACY RESIDENT note. Supportive care. Plan LHC/RHC tomorrow. SANJEEV PASTOR APRN Apr 21, 2021 09:27 MARIANN TIRADO MD Apr 21, 2021 18:21
--- NOTE | 2021-04-21 09:55 | EKG ---
[facility] [address] [place] [address] Test Date: 2021-04-21 Test Time: 09:55:41 Pat Name: FELICE GROVE Department: Room: 108 1 Gender: M Lime Slaker: SHELTON : 1965 Requested By: SANJEEV PASTOR Order Number: [id number] Reading MD: Measurements Intervals [place] Rate: 103 P: [place]: QRS: 47 QRSD: 84 T: 60 QT: 332 QTc: 437 Interpretive Statements ACCELERATED JUNCTIONAL RHYTHM ABNORMAL ECG RI6.01 Compared to ECG 04/19/2021 01:57:23 Accelerated junctional rhythm now present
--- NOTE | 2021-04-21 10:36 | NUR ---
SS following up with discharge planning. SS reviewed pt chart and discussed with pt RN. Pt is currently requiring oxygen at three liters nasal canula. COVID19 negative. Pt had pacemaker placement on 04/19/2021. Pacemaker currently off. Pt on IV Zosyn and Levophed. Hemodialysis. Pt has outpatient hemodialysis chair time at [facility] Monday, , and Monday, ; fax [phone]. Heart cath scheduled for tomorrow. SS will continue to follow for discharge planning.
--- NOTE | 2021-04-21 10:57 | PDOC ---
PULMONARY PROGRESS NOTES DATE: 04/21/21 TIME: 10:54 Subjective Patient is doing much better. Her oxygen requirement is now down to 2 L. Had ultrafiltration with hemodialysis yesterday. Vitals Vital Signs Date Time Temp Pulse Resp B/P (MAP) Pulse Ox O2 Delivery O2 Flow Rate FiO2 04/21/21 09:45 102 120/52 (74) 04/21/21 09:28 97 Vapotherm 25.0 04/21/21 09:00 26 04/21/21 08:00 98.9 98.9 General: Alert, No acute distress Lungs: Clear Cardiovascular: S1, S2 Abdomen: Soft, Non-tender Extremities: No Edema Labs Laboratory Tests Test 04/19/21 15:40 04/20/21 05:25 04/20/21 08:00 04/20/21 15:30 Sodium Level 129 mmol/L (136-145) 131 mmol/L (136-145) 132 mmol/L (136-145) Potassium Level 7.0 mmol/L (3.5-5.1) 5.5 mmol/L (3.5-5.1) 4.6 mmol/L (3.5-5.1) Chloride Level 93 mmol/L (98-107) 90 mmol/L (98-107) 94 mmol/L (98-107) Carbon Dioxide Level 21 mmol/L (21-32) 25 mmol/L (21-32) 30 mmol/L (21-32) Anion Gap 15 (6-14) 16 (6-14) 8 (6-14) Blood Urea Nitrogen 70 mg/dL (8-26) 56 mg/dL (8-26) 31 mg/dL (8-26) Creatinine 9.1 mg/dL (0.7-1.3) 7.7 mg/dL (0.7-1.3) 5.0 mg/dL (0.7-1.3) Estimated GFR (Cockcroft-Gault) 6.0 7.3 12.1 Glucose Level 109 mg/dL (70-99) 124 mg/dL (70-99) 124 mg/dL (70-99) Calcium Level 7.9 mg/dL (8.5-10.1) 8.1 mg/dL (8.5-10.1) 8.6 mg/dL (8.5-10.1) Magnesium Level 1.9 mg/dL (1.8-2.4) Troponin I Quantitative 0.504 ng/mL (0.000-0.055) 0.450 ng/mL (0.000-0.055) White Blood Count 21.4 x10^3/uL (4.0-11.0) Red Blood Count 3.50 x10^6/uL (4.30-5.70) Hemoglobin 11.1 g/dL (13.0-17.5) Hematocrit 33.5 % (39.0-53.0) Mean Corpuscular Volume 96 fL (79-100) Mean Corpuscular Hemoglobin 32 pg (25-35) Mean Corpuscular Hemoglobin Concent 33 g/dL (31-37) Red Cell Distribution Width 15.9 % (11.5-14.5) Platelet Count 227 x10^3/uL (140-400) Neutrophils (%) (Auto) 87 % (31-73) Lymphocytes (%) (Auto) 4 % (24-48) Monocytes (%) (Auto) 8 % (0-9) Eosinophils (%) (Auto) 1 % (0-3) Basophils (%) (Auto) 1 % (0-3) Neutrophils # (Auto) 18.5 x10^3/uL (1.8-7.7) Lymphocytes # (Auto) 0.9 x10^3/uL (1.0-4.8) Monocytes # (Auto) 1.7 x10^3/uL (0.0-1.1) Eosinophils # (Auto) 0.2 x10^3/uL (0.0-0.7) Basophils # (Auto) 0.1 x10^3/uL (0.0-0.2) Segmented Neutrophils % 88 % (35-66) Band Neutrophils % 3 % (0-9) Lymphocytes % 3 % (24-48) Monocytes % 4 % (0-10) Eosinophils % 1 % (0-5) Basophils % 1 % (0-3) Platelet Estimate Adequate (ADEQUATE) Phosphorus Level 10.0 mg/dL (2.6-4.7) Albumin 2.9 g/dL (3.4-5.0) Triglycerides Level 107 mg/dL (0-150) Cholesterol Level 96 mg/dL (0-200) LDL Cholesterol, Calculated 38 mg/dL (0-100) VLDL Cholesterol, Calculated 21 mg/dL (0-40) Non-HDL Cholesterol Calculated 59 mg/dL (0-129) HDL Cholesterol 37 mg/dL (40-60) Cholesterol/HDL Ratio 2.6 O2 Saturation 97 % (92-99) Arterial Blood pH 7.33 (7.35-7.45) Arterial Blood pCO2 at Patient Temp 48 mmHg (35-46) Arterial Blood pO2 at Patient Temp 110 mmHg (75-108) Arterial Blood HCO3 25 mmol/L (21-28) Arterial Blood Base Excess -2 mmol/L (-3-3) FiO2 100/nrb Test 04/21/21 05:30 White Blood Count 12.0 x10^3/uL (4.0-11.0) Red Blood Count 3.22 x10^6/uL (4.30-5.70) Hemoglobin 10.2 g/dL (13.0-17.5) Hematocrit 31.0 % (39.0-53.0) Mean Corpuscular Volume 96 fL (79-100) Mean Corpuscular Hemoglobin 32 pg (25-35) Mean Corpuscular Hemoglobin Concent 33 g/dL (31-37) Red Cell Distribution Width 16.0 % (11.5-14.5) Platelet Count 209 x10^3/uL (140-400) Neutrophils (%) (Auto) 77 % (31-73) Lymphocytes (%) (Auto) 6 % (24-48) Monocytes (%) (Auto) 12 % (0-9) Eosinophils (%) (Auto) 4 % (0-3) Basophils (%) (Auto) 1 % (0-3) Neutrophils # (Auto) 9.3 x10^3/uL (1.8-7.7) Lymphocytes # (Auto) 0.8 x10^3/uL (1.0-4.8) Monocytes # (Auto) 1.4 x10^3/uL (0.0-1.1) Eosinophils # (Auto) 0.5 x10^3/uL (0.0-0.7) Basophils # (Auto) 0.1 x10^3/uL (0.0-0.2) Sodium Level 131 mmol/L (136-145) Potassium Level 4.4 mmol/L (3.5-5.1) Chloride Level 92 mmol/L (98-107) Carbon Dioxide Level 30 mmol/L (21-32) Anion Gap 9 (6-14) Blood Urea Nitrogen 49 mg/dL (8-26) Creatinine 6.4 mg/dL (0.7-1.3) Estimated GFR (Cockcroft-Gault) 9.1 BUN/Creatinine Ratio 8 (6-20) Glucose Level 104 mg/dL (70-99) Calcium Level 8.7 mg/dL (8.5-10.1) Total Bilirubin 0.7 mg/dL (0.2-1.0) Aspartate Amino Transf (AST/SGOT) 25 U/L (15-37) Alanine Aminotransferase (ALT/SGPT) 35 U/L (16-63) Alkaline Phosphatase 162 U/L (46-116) Total Protein 7.4 g/dL (6.4-8.2) Albumin 2.5 g/dL (3.4-5.0) Albumin/Globulin Ratio 0.5 (1.0-1.7) Laboratory Tests Test 04/20/21 15:30 04/21/21 05:30 Sodium Level 132 mmol/L (136-145) 131 mmol/L (136-145) Potassium Level 4.6 mmol/L (3.5-5.1) 4.4 mmol/L (3.5-5.1) Chloride Level 94 mmol/L (98-107) 92 mmol/L (98-107) Carbon Dioxide Level 30 mmol/L (21-32) 30 mmol/L (21-32) Anion Gap 8 (6-14) 9 (6-14) Blood Urea Nitrogen 31 mg/dL (8-26) 49 mg/dL (8-26) Creatinine 5.0 mg/dL (0.7-1.3) 6.4 mg/dL (0.7-1.3) Estimated GFR (Cockcroft-Gault) 12.1 9.1 Glucose Level 124 mg/dL (70-99) 104 mg/dL (70-99) Calcium Level 8.6 mg/dL (8.5-10.1) 8.7 mg/dL (8.5-10.1) White Blood Count 12.0 x10^3/uL (4.0-11.0) Red Blood Count 3.22 x10^6/uL (4.30-5.70) Hemoglobin 10.2 g/dL (13.0-17.5) Hematocrit 31.0 % (39.0-53.0) Mean Corpuscular Volume 96 fL (79-100) Mean Corpuscular Hemoglobin 32 pg (25-35) Mean Corpuscular Hemoglobin Concent 33 g/dL (31-37) Red Cell Distribution Width 16.0 % (11.5-14.5) Platelet Count 209 x10^3/uL (140-400) Neutrophils (%) (Auto) 77 % (31-73) Lymphocytes (%) (Auto) 6 % (24-48) Monocytes (%) (Auto) 12 % (0-9) Eosinophils (%) (Auto) 4 % (0-3) Basophils (%) (Auto) 1 % (0-3) Neutrophils # (Auto) 9.3 x10^3/uL (1.8-7.7) Lymphocytes # (Auto) 0.8 x10^3/uL (1.0-4.8) Monocytes # (Auto) 1.4 x10^3/uL (0.0-1.1) Eosinophils # (Auto) 0.5 x10^3/uL (0.0-0.7) Basophils # (Auto) 0.1 x10^3/uL (0.0-0.2) BUN/Creatinine Ratio 8 (6-20) Total Bilirubin 0.7 mg/dL (0.2-1.0) Aspartate Amino Transf (AST/SGOT) 25 U/L (15-37) Alanine Aminotransferase (ALT/SGPT) 35 U/L (16-63) Alkaline Phosphatase 162 U/L (46-116) Total Protein 7.4 g/dL (6.4-8.2) Albumin 2.5 g/dL (3.4-5.0) Albumin/Globulin Ratio 0.5 (1.0-1.7) Medications Active Scripts Medications Dose Route/Sig Max Daily Dose Days Date Category Tums (Calcium Carbonate) 200 Mg Tab.chew 400 Mg PO HS 04/19/21 Reported Sensipar (Cinacalcet Hcl) 60 Mg Tablet 1 Tab PO DAILY 30 04/19/21 Reported Ferric Citrate 210 Mg Tablet 2 Tab PO TID 30 04/19/21 Reported Lasix (Furosemide) 40 Mg Tablet 40 Mg PO BID 04/19/21 Reported Renagel (Sevelamer Hcl) 800 Mg Tablet 2 Tab PO TIDWMEALS 01/18/21 Reported Kapspargo Sprinkle (Metoprolol Succinate) 50 Mg Cap.spr.24 50 Mg PO DAILY 01/18/21 Reported Comments Chest x-ray from 04/18/2021 reviewed. Bilateral faint interstitial infiltrates suggestive of CHF Impression . 1. Acute hypoxemic respiratory failure, multifactorial. Secondary to combination of third-degree heart block and CHF./Severe aortic stenosis. 2. Third-degree heart block, status post temporary pacemaker implantation. 3. Metabolic acidosis secondary to renal failure, possibly sepsis. 4. End-stage renal disease. 5. Abnormal x-ray revealing bilateral pulmonary infiltrates compatible with CHF. Less likely pneumonia, COVID-19 negative 6. Leukocytosis. 7. Secondary pulmonary hypertension. 8. Elevated liver function tests. 9. Toxic metabolic encephalopathy. Plan . PLAN: 1. Continue with nasal cannula 2 L. Keep saturations 94 and above. 2. Repeat chest x-ray 04/20 shows worsening pulmonary edema. 3. Empiric antibiotics. 4. Follow cardiology input. Patient's echo shows moderate to severe aortic stenosis. 5. Continue Zosyn. 6. Continue ultrafiltration with hemodialysis. Clinically improved today. Will follow chest x-ray. 7. Avoid hyperoxia. Discussed with RN and RT RUDI DAVALOS MD Apr 21, 2021 10:57
--- NOTE | 2021-04-21 11:39 | RAD ---
Site ID: [id number] EXAMINATION: XR CHEST 1V. HISTORY: 55 years Male respiratory distress, CHF. COMPARISON: April 20, 2021. Findings: There is a improving bilateral perihilar infiltrates with the remaining catheter interstiti al thickening seen bilaterally.. The heart size is enlarged. There is no effusion or pneumothorax. The mediastinum and galileo appear unremarkable. Impression: Cardiomegaly. Improving perihilar infiltrates with remaining interstitial thickening like ly interstitial edema. Electronically signed by: Oc Patricia MD (04/21/2021 11:36 AM) [id number]
--- NOTE | 2021-04-21 11:52 | EKG ---
[facility] [address] [place] [address] Test Date: 2021-04-21 Test Time: 11:50:10 Pat Name: FELICE GROVE Department: Room: 108 1 Gender: M Employee Wellness/Fitness Coordinator: SHELTON : 1965 Requested By: SANJEEV PASTOR Order Number: [id number] Reading MD: Measurements Intervals [place] Rate: 59 P: [place]: QRS: 43 QRSD: 86 T: 56 QT: 456 QTc: 456 Interpretive Statements IRREGULAR RHYTHM, NO P-WAVE FOUND VENTRICULAR PREMATURE COMPLEX(ES) ABNORMAL ECG RI6.02 Compared to ECG 04/21/2021 09:55:41 Accelerated junctional rhythm no longer present
[2021-04-21] MEDS: ASPIRIN ENTERIC COATED 81 MG TABLET.DR. PO SCH (13:13)
--- NOTE | 2021-04-21 15:16 | PDOC ---
DATE OF SERVICE DATE: 04/21/21 TIME: 15:12 SUBJECTIVE ROS Alert today, Denies SOB, states doesnt recall what happened yesterday OBJECTIVE Vital Signs Vital Signs Date Time Temp Pulse Resp B/P (MAP) Pulse Ox O2 Delivery O2 Flow Rate FiO2 04/21/21 12:15 98 124/56 (78) 04/21/21 12:00 99.2 20 96 Nasal Cannula 3.0 99.2 I & 0 Intake and Output 04/21/21 07:00 Intake Total 421 ml Output Total 65 ml Balance 356 ml Intake Oral 240 ml IV Total 181 ml Output Urine Total 65 ml PHYSICAL EXAM Physical Exam GENERAL: NAD HEENT: Normocephalic, atraumatic. Anicteric. NECK supple LUNGS: Decreased at bases CV heart paced. ABDOMEN: Soft, nontender, nondistended. EXTREMITIES: No edema, no cyanosis. GENITOURINARY: Right groin temporary pacemaker, No [place] DERMATOLOGIC: Warm, dry, no generalized rash. NEUROLOGIC: AXOX3 PSYCHIATRIC: stable DIAGNOSIS/ASSESSMENT Assessment & Plan ESRD - On HD TTS,Dialyzed with UF Mon and yesterday, currently no indication today HyperKalemia- Resolved Ac Resp Failure - CxR Improving perihilar infiltrates with remaining interstitial thickening likely interstitial edema. Dizziness POA ; EKG with complete heart block; on BB at home. treated with Dopamine , required transcutaneous pacing. s/p temp pacemaker. Plan for possible R/LHC tomorrow Acute on chronic diastolic CHF; appears compensated, Echo 01/11 with preserved LV systolic function Valvular disease: moderate to severe and moderate MS Moderate secondary pulmonary HTN COMMENT/RELEVANT DATA Meds Current Medications Medications (Trade) Dose Ordered Sig/Kevin Start Time Stop Time Status Last Admin Dose Admin Acetaminophen (Tylenol) 650 mg PRN Q6HRS PRN 04/19/21 07:00 Albumin Human 200 ml @ 200 mls/hr 1X PRN PRN 04/20/21 08:00 04/20/21 13:59 DC Aspirin (Ecotrin) 81 mg [id number] 04/21/21 10:00 04/21/21 13:13 81 MG Atorvastatin Calcium (Lipitor) 10 mg QHS 04/21/21 21:00 Atropine Sulfate (ATROPINE 0.5mg SYRINGE) 0.5 mg 1X ONCE 04/19/21 00:00 04/19/21 00:01 DC 04/18/21 23:38 0.5 MG Azithromycin 250 ml @ 250 mls/hr 1X ONCE 04/19/21 00:30 04/19/21 00:29 DC Ceftriaxone Sodium (Rocephin) 1 gm 1X ONCE 04/19/21 00:30 04/19/21 00:29 DC Dopamine HCl/ Dextrose 250 ml @ 13.988 mls/ hr CONT PRN 04/19/21 09:00 04/20/21 11:35 27.975 MLS/HR Epinephrine HCl (Adrenalin) 1 mg STK-MED ONCE 04/19/21 10:18 04/19/21 10:18 DC Epinephrine HCl (EPINEPHrine SYRINGE) 0.5 mg 1X ONCE 04/19/21 10:17 04/19/21 11:02 DC 04/19/21 10:17 0.5 MG Fentanyl Citrate (Fentanyl 2ml Vial) 100 mcg 1X ONCE 04/19/21 11:00 04/19/21 11:02 DC 04/19/21 11:13 50 MCG Guaifenesin (Robitussin Dm) 10 ml PRN Q6HRS PRN 04/19/21 07:00 Heparin Sodium (Porcine) (Heparin Sodium) 5,000 unit Q8HRS 04/19/21 14:00 04/21/21 08:34 5,000 UNIT Heparin Sodium/ Sodium Chloride 500 ml @ As Directed STK-MED ONCE 04/19/21 10:44 04/19/21 10:44 DC Heparin Sodium/ Sodium Chloride (HEPARIN for ARTERIAL LINE FLUSH) 1,000 unit 1X ONCE 04/19/21 09:15 04/19/21 09:30 DC 04/19/21 09:15 1,000 UNIT Hydralazine HCl (Apresoline Inj) 10 mg PRN Q4HRS PRN 04/19/21 07:00 Info (PHARMACY MONITORING -- do not chart) 1 each PRN DAILY PRN 04/20/21 08:00 Iodixanol (Visipaque 320) 100 ml STK-MED ONCE 04/19/21 10:32 04/19/21 10:32 DC Lidocaine HCl (Lidocaine 1% 20ml Vial) 20 ml 1X ONCE 04/19/21 09:15 04/19/21 09:30 DC 04/19/21 09:46 16 ML Lidocaine HCl (Xylocaine-Mpf 1% 2ml Vial) 2 ml 1X PRN PRN 04/20/21 08:00 04/21/21 07:59 DC Lorazepam (Ativan Inj) 2 mg PRN Q2HRS PRN 04/19/21 09:15 04/20/21 14:06 2 MG Midazolam HCl (Versed) 2 mg 1X ONCE 04/19/21 11:00 04/19/21 11:02 DC 04/19/21 11:13 2 MG Norepinephrine Bitartrate 8 mg/ Dextrose 258 ml @ 14.435 mls/ hr CONT PRN 04/19/21 10:15 04/21/21 08:55 21.653 MLS/HR Ondansetron HCl (Zofran) 4 mg PRN Q4HRS PRN 04/19/21 07:00 04/19/21 07:15 4 MG Piperacillin Sod/ Tazobactam Sod (Zosyn Per Pharmacy) 1 each PRN DAILY PRN 04/19/21 00:30 Piperacillin Sod/ Tazobactam Sod 2.25 gm/Sodium Chloride 50 ml @ 100 mls/hr Q8HRS 04/19/21 00:30 04/21/21 08:34 100 MLS/HR Sevelamer Carbonate (Renvela) 1,600 mg TIDWMEALS 04/19/21 08:00 04/21/21 13:14 1,600 MG Sodium Chloride 1,000 ml @ 400 mls/hr Q2H30M PRN 04/20/21 08:00 04/20/21 19:59 DC Sterile Water (WATER for RESP) 1,000 ml CONT PRN 04/20/21 11:15 04/20/21 20:28 1,000 ML Lab Laboratory Tests Test 04/20/21 15:30 04/21/21 05:30 Sodium Level 132 mmol/L (136-145) 131 mmol/L (136-145) Potassium Level 4.6 mmol/L (3.5-5.1) 4.4 mmol/L (3.5-5.1) Chloride Level 94 mmol/L (98-107) 92 mmol/L (98-107) Carbon Dioxide Level 30 mmol/L (21-32) 30 mmol/L (21-32) Anion Gap 8 (6-14) 9 (6-14) Blood Urea Nitrogen 31 mg/dL (8-26) 49 mg/dL (8-26) Creatinine 5.0 mg/dL (0.7-1.3) 6.4 mg/dL (0.7-1.3) Estimated GFR (Cockcroft-Gault) 12.1 9.1 Glucose Level 124 mg/dL (70-99) 104 mg/dL (70-99) Calcium Level 8.6 mg/dL (8.5-10.1) 8.7 mg/dL (8.5-10.1) White Blood Count 12.0 x10^3/uL (4.0-11.0) Red Blood Count 3.22 x10^6/uL (4.30-5.70) Hemoglobin 10.2 g/dL (13.0-17.5) Hematocrit 31.0 % (39.0-53.0) Mean Corpuscular Volume 96 fL (79-100) Mean Corpuscular Hemoglobin 32 pg (25-35) Mean Corpuscular Hemoglobin Concent 33 g/dL (31-37) Red Cell Distribution Width 16.0 % (11.5-14.5) Platelet Count 209 x10^3/uL (140-400) Neutrophils (%) (Auto) 77 % (31-73) Lymphocytes (%) (Auto) 6 % (24-48) Monocytes (%) (Auto) 12 % (0-9) Eosinophils (%) (Auto) 4 % (0-3) Basophils (%) (Auto) 1 % (0-3) Neutrophils # (Auto) 9.3 x10^3/uL (1.8-7.7) Lymphocytes # (Auto) 0.8 x10^3/uL (1.0-4.8) Monocytes # (Auto) 1.4 x10^3/uL (0.0-1.1) Eosinophils # (Auto) 0.5 x10^3/uL (0.0-0.7) Basophils # (Auto) 0.1 x10^3/uL (0.0-0.2) BUN/Creatinine Ratio 8 (6-20) Magnesium Level 2.0 mg/dL (1.8-2.4) Total Bilirubin 0.7 mg/dL (0.2-1.0) Aspartate Amino Transf (AST/SGOT) 25 U/L (15-37) Alanine Aminotransferase (ALT/SGPT) 35 U/L (16-63) Alkaline Phosphatase 162 U/L (46-116) Total Protein 7.4 g/dL (6.4-8.2) Albumin 2.5 g/dL (3.4-5.0) Albumin/Globulin Ratio 0.5 (1.0-1.7) Results All relevant outside records, renal labs, imaging studies, telemetry/EKG's were reviewed. Justicifation of Admission Dx: Justifications for Admission: Justification of Admission Dx: N/A MARIYA NORMAN MD Apr 21, 2021 15:16
[2021-04-21] MEDS: fentaNYL PF VIAL 100 MCG/2 ML VIAL IVP PRN ×3 (16:20→23:23)
[2021-04-21] MEDS ORDERED: ATORVASTATIN CALCIUM 10 MG TABLET. PO SCH (21:00)
[2021-04-22] VITALS (22 sets, daily range): BP systolic 99–135; BP diastolic 26–67
[2021-04-22] MEDS: fentaNYL PF VIAL 100 MCG/2 ML VIAL IVP PRN ×3 (03:40→16:27)
[2021-04-22] MEDS: HEPARIN for SUB-Q USE 5,000 UNIT/ML VIAL. SQ SCH ×2 (05:23→17:32)
[2021-04-22] MEDS: PIPERACILLIN/TAZOBACTAM 2.25 GM in IV NORMAL SALINE 50ML 50 ML IV SCH ×2 (05:24→17:31)
[2021-04-22 05:29] LABS: BASO # 0.1 x10^3/uL (0.0-0.2); BASO % 1 % (0-3); EOS # 0.9 x10^3/uL (0.0-0.7); EOS % 10 % (0-3); HEMATOCRIT 29.1 % (39.0-53.0); HEMOGLOBIN 9.6 g/dL (13.0-17.5); LYMPH # 1.2 x10^3/uL (1.0-4.8); LYMPH % 13 % (24-48); MEAN CORPUSCULAR HEMOGLOBIN 32 pg (25-35); MEAN CORPUSCULAR HGB CONC 33 g/dL (31-37); MEAN CORPUSCULAR VOLUME 96 fL (79-100); MONO # 1.1 x10^3/uL (0.0-1.1); MONO % 13 % (0-9); NEUT # 5.6 x10^3/uL (1.8-7.7); NEUT % 63 % (31-73); PLATELET COUNT 212 x10^3/uL (140-400); RED BLOOD COUNT 3.02 x10^6/uL (4.30-5.70); RED CELL DISTRIBUTION WIDTH 16.1 % (11.5-14.5)
[2021-04-22 05:53] LABS: ALBUMIN 2.4 g/dL (3.4-5.0); ALBUMIN/GLOBULIN RATIO 0.5 (1.0-1.7); CALCIUM 8.7 mg/dL (8.5-10.1); CREATININE 8.2 mg/dL (0.7-1.3); GFR 6.8; POTASSIUM 4.6 mmol/L (3.5-5.1); TOTAL BILIRUBIN 0.5 mg/dL (0.2-1.0); TOTAL PROTEIN 7.2 g/dL (6.4-8.2)
[2021-04-22] MEDS ORDERED: IODIXANOL 320 MG/ML 100 ML VIAL. ONE ×2 (07:39→09:58)
[2021-04-22] MEDS ORDERED: LIDOCAINE 1% Multi-Dose 20 ML VIAL. ONE ×2 (07:40→09:58)
[2021-04-22] MEDS: SEVELAMER CARBONATE 800 MG TABLET. PO SCH ×3 (08:00→17:33)
[2021-04-22] MEDS ORDERED: ALBUMIN HUMAN 25% 200 ML IV PRN (08:30)
[2021-04-22] MEDS ORDERED: DIALYSIS PATIENT. MC PRN (08:30)
[2021-04-22] MEDS ORDERED: ATROPINE 0.5 MG/5 ML DISP.SYRINGE. ONE (08:57)
[2021-04-22] MEDS ORDERED: ATROPINE 0.5 MG/5 ML DISP.SYRINGE. IV ONE (09:15)
--- NOTE | 2021-04-22 09:47 | PDOC ---
PROGRESS NOTES Date of Service: DATE: 04/22/21 TIME: 09:47 Chief Complaint Chief Complaint VTE Prophylaxis Ordered VTE Prophylaxis Devices: Yes VTE Pharmacological Prophylaxi: Yes Assessment/Plan Assessment/Plan A/P: Acute encephalopathy - likely due to metabolic derangement, hypoxia, and CHB. no clear focal deficits neurologically Complete heart block - on external pacing, dopamine. Cardiology consulted./ ICU admitted. Acute respiratory failure with hypoxia - BIPAP. Likely fluid overload from acute diastolic CHF Metabolic acidosis - due to hypoxia, ESRD Acute diastolic CHF - will need UF with dialysis COPD - with likely exacerbation complicated by CHF. On bipap currently HTN - prn hydralazine ESRD on PD recently transitioned to HD - nephrology consulted for HD Mild Transaminitis - likely from acute CHF. Will f/u final COVID results Moderate protein malnutrition - will start early nutrition when more alert Anemia of ESRD - monitor Leukocytosis - meets SIRS, treating for sepsis due to COPD exacerbation/pneumonia with zosyn plan icu bed FEN -cardiac diet PPX - heparin FULL CODE Dispo - inpatient ICU nonrebreather mask at 100% FiO2. EKG with complete heart block; on BB at home. treated with Dopamine and required transcutaneous pacing. s/p temp pacemaker Continue Zosyn, renal dosing cc time 34 minutes Justifications for Admission Justifications for Admission Other Justification SBO History of Present Illness History of Present Illness dentification/Chief Complaint Chief Complaint Confusion Source Source: Patient History of Present Illness History of Present Illness Mr Dowling is a 55yo M w/ PMHx CHF, COPD, HTN, ESRD on PD recently transitioned to HD who presents to the emergency room complaining of dizziness while carrying a box at home. Patient denies chest pains, chest congestion, nasal congestion. Patient states he feels a little short of breath, states he feels as if he is going to pass out. Patient denies actual syncopal episodes. He recently transitioned from PD to HD this past summer. WBC 13.4, Hb 11.6, platelets 330, NA 134, K5.1, BUN 62, CR 8.5, glucose 120 calcium 8.3, phosphorus 9.5, mag 1.9, bilirubin 0.3, AST 50, ALT 68, alk phos 295, albumin 3, troponin 0, lactate 0.9, NT proBNP greater than 35,000, ABG 7.2/48/203 Chest radiograph with patchy bilateral parenchymal opacities. Initial EKG appears to be third-degree heart block rate of [address] on external pacing, dopamine infusion He was hypoxic and confused in ED, initially attempted to get out of bed with significant O2 desaturations, requiring BIPAP. Admitted for further care to ICU Past Medical History Cardiovascular: No pertinent hx, HTN Pulmonary: Bronchitis, COPD, Other CENTRAL NERVOUS SYSTEM: Other GI: No pertinent hx, GI bleed Heme/Onc: Anemia NOS Hepatobiliary: No pertinent hx Psych: No pertinent hx Rheumatologic: No pertinent hx Infectious disease: Other Renal/: Chronic renal insuff, Chronic renal failure, UTI, Other Endocrine: No pertinent hx, Hyperparathyroidism Past Surgical History Past Surgical History: Other Family History Family History: Coronary Artery Disease Social History Smoke: No ALCOHOL: none Drugs: None Current Problem List Problem List Problems Medical Problems: (1) Community acquired pneumonia Status: Acute (2) ESRD (end stage renal disease) Status: Acute (3) Third degree heart block Status: Acute Current Medications Current Medications Current Medications Atropine Sulfate (ATROPINE 0.5mg SYRINGE) 0.5 mg 1X ONCE IV Last administered on 04/18/21at 23:38; Start 04/19/21 at 00:00; Stop 04/19/21 at 00:01; Status DC Dopamine HCl/ Dextrose 250 ml @ 13.125 mls/ hr 1X ONCE IV Last administered on 04/18/21at 23:49; Start 04/19/21 at 00:00; Stop 04/19/21 at 19:02 Sodium Chloride 500 ml @ 250 mls/hr 1X ONCE IV Last administered on 04/18/21at 23:54; Start 04/19/21 at 00:00; Stop 04/19/21 at 01:59; Status DC Ceftriaxone Sodium (Rocephin) 1 gm 1X ONCE IVP ; Start 04/19/21 at 00:30; Stop 04/19/21 at 00:29; Status DC Azithromycin 250 ml @ 250 mls/hr 1X ONCE IV ; Start 04/19/21 at 00:30; Stop 04/19/21 at 00:29; Status DC Piperacillin Sod/ Tazobactam Sod (Zosyn Per Pharmacy) 1 each PRN DAILY PRN MC SEE COMMENTS; Start 04/19/21 at 00:30 Piperacillin Sod/ Tazobactam Sod 2.25 gm/Sodium Chloride 50 ml @ 100 mls/hr Q8HRS IV Last administered on 04/19/21at 06:00; Start 04/19/21 at 00:30 Albumin Human 250 ml @ 62.5 mls/hr 1X ONCE IV Last administered on 04/19/21at 01:37; Start 04/19/21 at 02:00; Stop 04/19/21 at 05:59; Status DC Albumin Human 100 ml @ 100 mls/hr 1X ONCE IV Last administered on 04/19/21at 03:06; Start 04/19/21 at 03:30; Stop 04/19/21 at 04:29; Status DC Ondansetron HCl (Zofran) 4 mg PRN Q6HRS PRN IVP NAUSEA/VOMITING 1ST CHOICE Last administered on 04/19/21at 03:07; Start 04/19/21 at 03:00 Ondansetron HCl (Zofran) 4 mg STK-MED ONCE .ROUTE ; Start 04/19/21 at 02:59; Stop 04/19/21 at 02:59; Status DC Sodium Chloride 500 ml @ 250 mls/hr 1X ONCE IV Last administered on 04/19/21at 04:29; Start 04/19/21 at 04:00; Stop 04/19/21 at 05:59; Status DC Lorazepam (Ativan Inj) 2 mg STK-MED ONCE .ROUTE ; Start 04/19/21 at 05:41; Stop 04/19/21 at 05:41; Status DC Lorazepam (Ativan Inj) 1 mg 1X ONCE IVP Last administered on 04/19/21at 05:52; Start 04/19/21 at 06:30; Stop 04/19/21 at 06:31; Status DC Active Scripts Active Reported Ferric Citrate 210 Mg Tablet 210 Mg PO TIDAC Renagel (Sevelamer Hcl) 800 Mg Tablet 2 Tab PO TIDWMEALS Calcitriol 0.25 Mcg Capsule 1 Cap PO DAILY Furosemide 40 Mg Tablet 1 Tab PO DAILY Kapspargo Sprinkle (Metoprolol Succinate) 50 Mg Cap.spr.24 50 Mg PO DAILY Cinacalcet HCl 30 Mg Tablet 30 Mg PO QMWF Allergies Allergies: Coded Allergies: No Known Drug Allergies (Unverified , 02/17/21) 04-21 Off dopamine no further bradycardia or high grade blocks. Titrate off levophed Fluid offloading via HD Continue to optimize then plan for R/LHC 9-30 Acute encephalopathy - likely due to metabolic derangement, hypoxia, and CHB. no clear focal deficits neurologically Complete heart block - on external pacing, dopamine. Cardiology consulted./ ICU admitted. Acute respiratory failure with hypoxia - BIPAP. Likely fluid overload from acute diastolic CHF Metabolic acidosis - due to hypoxia, ESRD Acute diastolic CHF - will need UF with dialysis COPD - with likely exacerbation complicated by CHF. On bipap currently HTN - prn hydralazine ESRD on PD recently transitioned to HD - nephrology consulted for HD Mild Transaminitis - likely from acute CHF. Will f/u final COVID results Moderate protein malnutrition - will start early nutrition when more alert Anemia of ESRD - monitor Leukocytosis - meets SIRS, treating for sepsis due to COPD exacerbation/pneumonia with zosyn icu bed FEN -cardiac diet PPX - heparin FULL CODE Dispo - inpatient ICU nonrebreather mask at 100% FiO2. EKG with complete heart block; on BB at home. treated with Dopamine and required transcutaneous pacing. s/p temp pacemaker Continue Zosyn, renal dosing cc time 34 minutes 9-30 moderate to moderately severe valvular aortic stenosis. Off dopamine no further bradycardia or high grade blocks. Titrate off levophed Fluid offloading via HD Continue to optimize then plan for R/LHC 9-30 Acute encephalopathy - likely due to metabolic derangement, hypoxia, and CHB. no clear focal deficits neurologically Complete heart block - on external pacing, dopamine. Cardiology consulted./ ICU admitted. Acute respiratory failure with hypoxia - BIPAP. Likely fluid overload from acute diastolic CHF Metabolic acidosis - due to hypoxia, ESRD Acute diastolic CHF - will need UF with dialysis COPD - with likely exacerbation complicated by CHF. On bipap currently HTN - prn hydralazine ESRD on PD recently transitioned to HD - nephrology consulted for HD Mild Transaminitis - likely from acute CHF. Will f/u final COVID results Moderate protein malnutrition - will start early nutrition when more alert Anemia of ESRD - monitor Leukocytosis - meets SIRS, treating for sepsis due to COPD exacerbation/pneumonia with zosyn icu bed FEN -cardiac diet PPX - heparin FULL CODE Dispo - inpatient ICU nonrebreather mask at 100% FiO2. EKG with complete heart block; on BB at home. treated with Dopamine and required transcutaneous pacing. s/p temp pacemaker Continue Zosyn, renal dosing cc time 33 minutes needs a permanent pacemaker and aortic valve replacement. Likely TAVR. Will be transferring to this afternoon / moderate to moderately severe valvular aortic stenosis. Vitals Vitals Vital Signs Date Time Temp Pulse Resp B/P (MAP) Pulse Ox O2 Delivery O2 Flow Rate FiO2 04/22/21 09:00 47 16 121/46 (71) 93 Room Air 04/22/21 08:00 98.0 98.0 04/22/21 07:00 2.0 Physical Exam Physical Exam GENERAL: Restless, more awake HEENT: Normocephalic, atraumatic. Anicteric. LUNGS: Crackles present, heart 100% paced. ABDOMEN: Soft, nontender, nondistended. EXTREMITIES: No edema, no cyanosis. GENITOURINARY: Right groin temporary pacemaker with line placed and looks clean. SPC in place clean DERMATOLOGIC: Warm, dry, no generalized rash. NEUROLOGIC: Alert awake agitated PSYCHIATRIC: Agitated MUSCULOSKELETAL: Changes suggestive of DJD. General: Alert, Oriented X3, Cooperative, No acute distress, Other (somnolent ) Heart: Regular rate, Normal S1, Other (100% vpaced ) Lungs: Clear Abdomen: Normal bowel sounds, Soft Extremities: No clubbing, No cyanosis, No edema Skin: No significant lesion Labs LABS PERICARDIAL EFFUSION There is no evidence of significant pericardial effusion. Critical Notification Critical Value: No <Conclusion> Technically difficult study. The left ventricle is normal size. The left ventricular systolic function is grossly normal. LV Ejection Fraction of 55-60%. Septal motion consistent with conduction abnormality. There is borderline to mild concentric left ventricular hypertrophy. There is a pacemaker lead in the right ventricle. The aortic valve is calcified and displays decreased opening. Doppler and Color Flow revealed trace to mild aortic regurgitation. There appears to be moderate to moderately severe valvular aortic stenosis. The mitral valve is calcified and displays decreased opening. There is moderate mitral valve stenosis with a mean gradient of 7.01 mmHg. Doppler and Color-flow revealed trace to mild mitral regurgitation. Doppler and Color Flow revealed trace to mild tricuspid regurgitation with an estimated PAP of 50 mmHg. Signed by : Chuck Merritt MD Electronically Approved : 04/20/2021 19:14:30 DICTATED and SIGNED BY: CHUCK MERRITT MD DATE: 04/20/21 [id number] Laboratory Tests Test 04/22/21 05:20 White Blood Count 9.0 x10^3/uL (4.0-11.0) Red Blood Count 3.02 x10^6/uL (4.30-5.70) Hemoglobin 9.6 g/dL (13.0-17.5) Hematocrit 29.1 % (39.0-53.0) Mean Corpuscular Volume 96 fL (79-100) Mean Corpuscular Hemoglobin 32 pg (25-35) Mean Corpuscular Hemoglobin Concent 33 g/dL (31-37) Red Cell Distribution Width 16.1 % (11.5-14.5) Platelet Count 212 x10^3/uL (140-400) Neutrophils (%) (Auto) 63 % (31-73) Lymphocytes (%) (Auto) 13 % (24-48) Monocytes (%) (Auto) 13 % (0-9) Eosinophils (%) (Auto) 10 % (0-3) Basophils (%) (Auto) 1 % (0-3) Neutrophils # (Auto) 5.6 x10^3/uL (1.8-7.7) Lymphocytes # (Auto) 1.2 x10^3/uL (1.0-4.8) Monocytes # (Auto) 1.1 x10^3/uL (0.0-1.1) Eosinophils # (Auto) 0.9 x10^3/uL (0.0-0.7) Basophils # (Auto) 0.1 x10^3/uL (0.0-0.2) Sodium Level 131 mmol/L (136-145) Potassium Level 4.6 mmol/L (3.5-5.1) Chloride Level 93 mmol/L (98-107) Carbon Dioxide Level 27 mmol/L (21-32) Anion Gap 11 (6-14) Blood Urea Nitrogen 75 mg/dL (8-26) Creatinine 8.2 mg/dL (0.7-1.3) Estimated GFR (Cockcroft-Gault) 6.8 BUN/Creatinine Ratio 9 (6-20) Glucose Level 103 mg/dL (70-99) Calcium Level 8.7 mg/dL (8.5-10.1) Total Bilirubin 0.5 mg/dL (0.2-1.0) Aspartate Amino Transf (AST/SGOT) 23 U/L (15-37) Alanine Aminotransferase (ALT/SGPT) 32 U/L (16-63) Alkaline Phosphatase 166 U/L (46-116) Total Protein 7.2 g/dL (6.4-8.2) Albumin 2.4 g/dL (3.4-5.0) Albumin/Globulin Ratio 0.5 (1.0-1.7) Assessment and Plan Assessmemt and Plan Problems Medical Problems: (1) Community acquired pneumonia Status: Acute (2) ESRD (end stage renal disease) Status: Acute (3) Third degree heart block Status: Acute Comment Review of Relevant I have reviewed the following items allyson (where applicable) has been applied. Labs Laboratory Tests Test 04/20/21 15:30 04/21/21 05:30 04/22/21 05:20 Sodium Level 132 mmol/L (136-145) 131 mmol/L (136-145) 131 mmol/L (136-145) Potassium Level 4.6 mmol/L (3.5-5.1) 4.4 mmol/L (3.5-5.1) 4.6 mmol/L (3.5-5.1) Chloride Level 94 mmol/L (98-107) 92 mmol/L (98-107) 93 mmol/L (98-107) Carbon Dioxide Level 30 mmol/L (21-32) 30 mmol/L (21-32) 27 mmol/L (21-32) Anion Gap 8 (6-14) 9 (6-14) 11 (6-14) Blood Urea Nitrogen 31 mg/dL (8-26) 49 mg/dL (8-26) 75 mg/dL (8-26) Creatinine 5.0 mg/dL (0.7-1.3) 6.4 mg/dL (0.7-1.3) 8.2 mg/dL (0.7-1.3) Estimated GFR (Cockcroft-Gault) 12.1 9.1 6.8 Glucose Level 124 mg/dL (70-99) 104 mg/dL (70-99) 103 mg/dL (70-99) Calcium Level 8.6 mg/dL (8.5-10.1) 8.7 mg/dL (8.5-10.1) 8.7 mg/dL (8.5-10.1) White Blood Count 12.0 x10^3/uL (4.0-11.0) 9.0 x10^3/uL (4.0-11.0) Red Blood Count 3.22 x10^6/uL (4.30-5.70) 3.02 x10^6/uL (4.30-5.70) Hemoglobin 10.2 g/dL (13.0-17.5) 9.6 g/dL (13.0-17.5) Hematocrit 31.0 % (39.0-53.0) 29.1 % (39.0-53.0) Mean Corpuscular Volume 96 fL (79-100) 96 fL (79-100) Mean Corpuscular Hemoglobin 32 pg (25-35) 32 pg (25-35) Mean Corpuscular Hemoglobin Concent 33 g/dL (31-37) 33 g/dL (31-37) Red Cell Distribution Width 16.0 % (11.5-14.5) 16.1 % (11.5-14.5) Platelet Count 209 x10^3/uL (140-400) 212 x10^3/uL (140-400) Neutrophils (%) (Auto) 77 % (31-73) 63 % (31-73) Lymphocytes (%) (Auto) 6 % (24-48) 13 % (24-48) Monocytes (%) (Auto) 12 % (0-9) 13 % (0-9) Eosinophils (%) (Auto) 4 % (0-3) 10 % (0-3) Basophils (%) (Auto) 1 % (0-3) 1 % (0-3) Neutrophils # (Auto) 9.3 x10^3/uL (1.8-7.7) 5.6 x10^3/uL (1.8-7.7) Lymphocytes # (Auto) 0.8 x10^3/uL (1.0-4.8) 1.2 x10^3/uL (1.0-4.8) Monocytes # (Auto) 1.4 x10^3/uL (0.0-1.1) 1.1 x10^3/uL (0.0-1.1) Eosinophils # (Auto) 0.5 x10^3/uL (0.0-0.7) 0.9 x10^3/uL (0.0-0.7) Basophils # (Auto) 0.1 x10^3/uL (0.0-0.2) 0.1 x10^3/uL (0.0-0.2) BUN/Creatinine Ratio 8 (6-20) 9 (6-20) Magnesium Level 2.0 mg/dL (1.8-2.4) Total Bilirubin 0.7 mg/dL (0.2-1.0) 0.5 mg/dL (0.2-1.0) Aspartate Amino Transf (AST/SGOT) 25 U/L (15-37) 23 U/L (15-37) Alanine Aminotransferase (ALT/SGPT) 35 U/L (16-63) 32 U/L (16-63) Alkaline Phosphatase 162 U/L (46-116) 166 U/L (46-116) Total Protein 7.4 g/dL (6.4-8.2) 7.2 g/dL (6.4-8.2) Albumin 2.5 g/dL (3.4-5.0) 2.4 g/dL (3.4-5.0) Albumin/Globulin Ratio 0.5 (1.0-1.7) 0.5 (1.0-1.7) Laboratory Tests Test 04/22/21 05:20 White Blood Count 9.0 x10^3/uL (4.0-11.0) Red Blood Count 3.02 x10^6/uL (4.30-5.70) Hemoglobin 9.6 g/dL (13.0-17.5) Hematocrit 29.1 % (39.0-53.0) Mean Corpuscular Volume 96 fL (79-100) Mean Corpuscular Hemoglobin 32 pg (25-35) Mean Corpuscular Hemoglobin Concent 33 g/dL (31-37) Red Cell Distribution Width 16.1 % (11.5-14.5) Platelet Count 212 x10^3/uL (140-400) Neutrophils (%) (Auto) 63 % (31-73) Lymphocytes (%) (Auto) 13 % (24-48) Monocytes (%) (Auto) 13 % (0-9) Eosinophils (%) (Auto) 10 % (0-3) Basophils (%) (Auto) 1 % (0-3) Neutrophils # (Auto) 5.6 x10^3/uL (1.8-7.7) Lymphocytes # (Auto) 1.2 x10^3/uL (1.0-4.8) Monocytes # (Auto) 1.1 x10^3/uL (0.0-1.1) Eosinophils # (Auto) 0.9 x10^3/uL (0.0-0.7) Basophils # (Auto) 0.1 x10^3/uL (0.0-0.2) Sodium Level 131 mmol/L (136-145) Potassium Level 4.6 mmol/L (3.5-5.1) Chloride Level 93 mmol/L (98-107) Carbon Dioxide Level 27 mmol/L (21-32) Anion Gap 11 (6-14) Blood Urea Nitrogen 75 mg/dL (8-26) Creatinine 8.2 mg/dL (0.7-1.3) Estimated GFR (Cockcroft-Gault) 6.8 BUN/Creatinine Ratio 9 (6-20) Glucose Level 103 mg/dL (70-99) Calcium Level 8.7 mg/dL (8.5-10.1) Total Bilirubin 0.5 mg/dL (0.2-1.0) Aspartate Amino Transf (AST/SGOT) 23 U/L (15-37) Alanine Aminotransferase (ALT/SGPT) 32 U/L (16-63) Alkaline Phosphatase 166 U/L (46-116) Total Protein 7.2 g/dL (6.4-8.2) Albumin 2.4 g/dL (3.4-5.0) Albumin/Globulin Ratio 0.5 (1.0-1.7) Microbiology 04/19/21 Blood Culture - Preliminary, Resulted NO GROWTH AFTER 3 DAYS Medications Current Medications Atropine Sulfate (ATROPINE 0.5mg SYRINGE) 0.5 mg 1X ONCE IV Last administered on 04/18/21at 23:38; Start 04/19/21 at 00:00; Stop 04/19/21 at 00:01; Status DC Dopamine HCl/ Dextrose 250 ml @ 13.125 mls/ hr 1X ONCE IV Last administered on 04/18/21at 23:49; Start 04/19/21 at 00:00; Stop 04/19/21 at 10:30; Status DC Sodium Chloride 500 ml @ 250 mls/hr 1X ONCE IV Last administered on 04/18/21at 23:54; Start 04/19/21 at 00:00; Stop 04/19/21 at 01:59; Status DC Ceftriaxone Sodium (Rocephin) 1 gm 1X ONCE IVP ; Start 04/19/21 at 00:30; Stop 04/19/21 at 00:29; Status DC Azithromycin 250 ml @ 250 mls/hr 1X ONCE IV ; Start 04/19/21 at 00:30; Stop 04/19/21 at 00:29; Status DC Piperacillin Sod/ Tazobactam Sod (Zosyn Per Pharmacy) 1 each PRN DAILY PRN MC SEE COMMENTS; Start 04/19/21 at 00:30 Piperacillin Sod/ Tazobactam Sod 2.25 gm/Sodium Chloride 50 ml @ 100 mls/hr Q8HRS IV Last administered on 04/22/21at 05:24; Start 04/19/21 at 00:30 Albumin Human 250 ml @ 62.5 mls/hr 1X ONCE IV Last administered on 04/19/21at 01:37; Start 04/19/21 at 02:00; Stop 04/19/21 at 05:59; Status DC Albumin Human 100 ml @ 100 mls/hr 1X ONCE IV Last administered on 04/19/21at 03:06; Start 04/19/21 at 03:30; Stop 04/19/21 at 04:29; Status DC Ondansetron HCl (Zofran) 4 mg PRN Q6HRS PRN IVP NAUSEA/VOMITING 1ST CHOICE Last administered on 04/19/21at 03:07; Start 04/19/21 at 03:00; Stop 04/19/21 at 07:11; Status DC Ondansetron HCl (Zofran) 4 mg STK-MED ONCE .ROUTE ; Start 04/19/21 at 02:59; Stop 04/19/21 at 02:59; Status DC Sodium Chloride 500 ml @ 250 mls/hr 1X ONCE IV Last administered on 04/19/21at 04:29; Start 04/19/21 at 04:00; Stop 04/19/21 at 05:59; Status DC Lorazepam (Ativan Inj) 2 mg STK-MED ONCE .ROUTE ; Start 04/19/21 at 05:41; Stop 04/19/21 at 05:41; Status DC Lorazepam (Ativan Inj) 1 mg 1X ONCE IVP Last administered on 04/19/21at 05:52; Start 04/19/21 at 06:30; Stop 04/19/21 at 06:31; Status DC Ondansetron HCl (Zofran) 4 mg PRN Q4HRS PRN IVP NAUSEA/VOMITING Last administered on 04/19/21at 07:15; Start 04/19/21 at 07:00 Guaifenesin (Robitussin Dm) 10 ml PRN Q6HRS PRN PO COUGH; Start 04/19/21 at 07:00 Heparin Sodium (Porcine) (Heparin Sodium) 5,000 unit Q8HRS SQ Last administered on 04/21/21at 21:08; Start 04/19/21 at 14:00 Hydralazine HCl (Apresoline Inj) 10 mg PRN Q4HRS PRN IVP ELEVATED BP, SEE COMMENTS; Start 04/19/21 at 07:00 Acetaminophen (Tylenol) 650 mg PRN Q6HRS PRN PO MILD PAIN / TEMP > 100.3'F; Start 04/19/21 at 07:00 Fentanyl Citrate (Fentanyl 2ml Vial) 25 mcg PRN Q3HRS PRN IVP SEVERE PAIN 7-10 Last administered on 04/22/21at 03:40; Start 04/19/21 at 07:00 Sevelamer Carbonate (Renvela) 1,600 mg TIDWMEALS PO Last administered on 04/21/21at 16:21; Start 04/19/21 at 08:00 Lorazepam (Ativan Inj) 1 mg PRN Q4HRS PRN IVP ANXIETY / AGITATION Last administered on 04/19/21at 07:51; Start 04/19/21 at 07:45; Stop 04/21/21 at 07:55; Status DC Dopamine HCl/ Dextrose 250 ml @ 13.988 mls/ hr CONT PRN IV SEE I/O RECORD Last administered on 04/20/21at 11:35; Start 04/19/21 at 09:00 Lidocaine HCl (Lidocaine 1% 20ml Vial) 20 ml STK-MED ONCE .ROUTE ; Start 04/19/21 at 09:01; Stop 04/19/21 at 09:02; Status DC Heparin Sodium/ Sodium Chloride 500 ml @ As Directed STK-MED ONCE .ROUTE ; Start 04/19/21 at 09:02; Stop 04/19/21 at 09:02; Status DC Heparin Sodium/ Sodium Chloride (HEPARIN for ARTERIAL LINE FLUSH) 1,000 unit 1X ONCE IART Last administered on 04/19/21at 09:15; Start 04/19/21 at 09:15; Stop 04/19/21 at 09:30; Status DC Lidocaine HCl (Lidocaine 1% 20ml Vial) 20 ml 1X ONCE INJ Last administered on 04/19/21at 09:46; Start 04/19/21 at 09:15; Stop 04/19/21 at 09:30; Status DC Fentanyl Citrate (Fentanyl 2ml Vial) 100 mcg PRN Q2HR PRN IVP SEVERE PAIN 7-10, 2ND CHOICE Last administered on 04/20/21at 14:05; Start 04/19/21 at 09:15 Lorazepam (Ativan Inj) 2 mg PRN Q2HRS PRN IVP ANXIETY / AGITATION Last administered on 04/20/21at 14:06; Start 04/19/21 at 09:15 Norepinephrine Bitartrate 8 mg/ Dextrose 258 ml @ 14.435 mls/ hr CONT PRN IV PER PROTOCOL Last administered on 04/21/21at 08:55; Start 04/19/21 at 10:15 Epinephrine HCl (Adrenalin) 1 mg STK-MED ONCE .ROUTE ; Start 04/19/21 at 10:18; Stop 04/19/21 at 10:18; Status DC Heparin Sodium/ Sodium Chloride 500 ml @ As Directed STK-MED ONCE .ROUTE ; Start 04/19/21 at 10:30; Stop 04/19/21 at 10:30; Status DC Iodixanol (Visipaque 320) 100 ml STK-MED ONCE .ROUTE ; Start 04/19/21 at 10:32; Stop 04/19/21 at 10:32; Status DC Midazolam HCl (Versed) 2 mg STK-MED ONCE .ROUTE ; Start 04/19/21 at 10:34; Stop 04/19/21 at 10:34; Status DC Fentanyl Citrate (Fentanyl 2ml Vial) 100 mcg STK-MED ONCE .ROUTE ; Start 04/19/21 at 10:34; Stop 04/19/21 at 10:35; Status DC Heparin Sodium/ Sodium Chloride 500 ml @ As Directed STK-MED ONCE .ROUTE ; Start 04/19/21 at 10:44; Stop 04/19/21 at 10:44; Status DC Midazolam HCl (Versed) 2 mg 1X ONCE IV Last administered on 04/19/21at 11:13; Start 04/19/21 at 11:00; Stop 04/19/21 at 11:02; Status DC Fentanyl Citrate (Fentanyl 2ml Vial) 100 mcg 1X ONCE IV Last administered on 04/19/21at 11:13; Start 04/19/21 at 11:00; Stop 04/19/21 at 11:02; Status DC Epinephrine HCl (EPINEPHrine SYRINGE) 0.5 mg 1X ONCE IV Last administered on 04/19/21at 10:17; Start 04/19/21 at 10:17; Stop 04/19/21 at 11:02; Status DC Albumin Human 200 ml @ 200 mls/hr 1X PRN PRN IV Hypotension; Start 04/19/21 at 14:00; Stop 04/19/21 at 19:59; Status DC Info (PHARMACY MONITORING -- do not chart) 1 each PRN DAILY PRN MC SEE COM MENTS; Start 04/19/21 at 14:00; Status Cancel Info (PHARMACY MONITORING -- do not chart) 1 each PRN DAILY PRN MC SEE COMMENTS; Start 04/19/21 at 18:15; Status Cancel Sodium Chloride 1,000 ml @ 1,000 mls/hr Q1H PRN IV hypotension; Start 04/20/21 at 08:00; Stop 04/20/21 at 13:59; Status DC Albumin Human 200 ml @ 200 mls/hr 1X PRN PRN IV Hypotension; Start 04/20/21 at 08:00; Stop 04/20/21 at 13:59; Status DC Sodium Chloride 1,000 ml @ 400 mls/hr Q2H30M PRN IV PATENCY; Start 04/20/21 at 08:00; Stop 04/20/21 at 19:59; Status DC Lidocaine HCl (Xylocaine-Mpf 1% 2ml Vial) 2 ml 1X PRN PRN INJ FOR DIALYSIS; Start 04/20/21 at 08:00; Stop 04/21/21 at 07:59; Status DC Info (PHARMACY MONITORING -- do not chart) 1 each PRN DAILY PRN MC SEE COMMENTS; Start 04/20/21 at 08:00; Status UNV Info (PHARMACY MONITORING -- do not chart) 1 each PRN DAILY PRN MC SEE COMMENTS; Start 04/20/21 at 08:00 Sterile Water (WATER for RESP) 1,000 ml CONT PRN INH VIA VAPOTHERM DEVICE Last administered on 04/20/21at 20:28; Start 04/20/21 at 11:15 Aspirin (Ecotrin) 81 mg [id number] PO Last administered on 04/21/21at 13:13; Start 04/21/21 at 10:00 Atorvastatin Calcium (Lipitor) 10 mg QHS PO Last administered on 04/21/21at 21:08; Start 04/21/21 at 21:00 Iodixanol (Visipaque 320) 100 ml STK-MED ONCE .ROUTE ; Start 04/22/21 at 07:39; Stop 04/22/21 at 07:40; Status DC Lidocaine HCl (Lidocaine 1% 20ml Vial) 20 ml STK-MED ONCE .ROUTE ; Start 04/22/21 at 07:40; Stop 04/22/21 at 07:40; Status DC Heparin Sodium/ Sodium Chloride 1,500 ml @ As Directed STK-MED ONCE .ROUTE ; Start 04/22/21 at 07:40; Stop 04/22/21 at 07:40; Status DC Albumin Human 200 ml @ 200 mls/hr 1X PRN PRN IV Hypotension; Start 04/22/21 at 08:30; Stop 04/22/21 at 14:29 Info (PHARMACY MONITORING -- do not chart) 1 each PRN DAILY PRN MC SEE COMMENTS; Start 04/22/21 at 08:30 Atropine Sulfate (ATROPINE 0.5mg SYRINGE) 0.5 mg STK-MED ONCE .ROUTE ; Start 04/22/21 at 08:57; Stop 04/22/21 at 08:57; Status DC Atropine Sulfate (ATROPINE 0.5mg SYRINGE) 0.5 mg 1X ONCE IV Last administered on 04/22/21at 09:04; Start 04/22/21 at 09:15; Stop 04/22/21 at 09:16; Status DC Active Scripts Active Reported Tums (Calcium Carbonate) 200 Mg Tab.chew 400 Mg PO HS Sensipar (Cinacalcet Hcl) 60 Mg Tablet 1 Tab PO DAILY 30 Days Ferric Citrate 210 Mg Tablet 2 Tab PO TID 30 Days Lasix (Furosemide) 40 Mg Tablet 40 Mg PO BID Renagel (Sevelamer Hcl) 800 Mg Tablet 2 Tab PO TIDWMEALS Kapspargo Sprinkle (Metoprolol Succinate) 50 Mg Cap.spr.24 50 Mg PO DAILY Vitals/I & O Vital Sign - Last 24 Hours 04/21/21 04/21/21 04/21/21 04/21/21 10:00 10:30 10:45 11:00 Pulse 100 102 102 102 Resp 20 18 B/P (MAP) 114/54 (74) 118/60 (79) 122/60 (80) 106/52 (70) Pulse Ox 98 94 O2 Delivery Nasal Cannula Nasal Cannula O2 Flow Rate 3.0 2.0 04/21/21 04/21/21 04/21/21 04/21/21 11:15 11:30 11:45 12:00 Pulse 100 52 72 B/P (MAP) 98/50 (66) 96/40 (58) 98/46 (63) O2 Delivery Nasal Cannula O2 Flow Rate 3.0 04/21/21 04/21/21 04/21/21 04/21/21 12:00 12:00 12:15 13:00 Temp 99.2 99.2 Pulse 78 98 52 Resp 20 20 B/P (MAP) 112/52 (72) 124/56 (78) 94/36 (55) Pulse Ox 96 94 O2 Delivery Nasal Cannula Nasal Cannula O2 Flow Rate 2.0 2.0 04/21/21 04/21/21 04/21/21 04/21/21 14:00 15:00 16:00 16:00 Temp 99.0 99.0 Pulse 100 52 52 Resp 18 20 18 B/P (MAP) 96/42 (60) 108/46 (66) 110/46 (67) Pulse Ox 94 93 94 O2 Delivery Nasal Cannula Nasal Cannula Nasal Cannula Nasal Cannula O2 Flow Rate 2.0 2.0 2.0 2.0 04/21/21 04/21/21 04/21/21 04/21/21 16:00 16:20 16:50 17:00 Pulse 52 Resp 16 18 20 B/P (MAP) 110/44 (66) Pulse Ox 96 95 O2 Delivery Nasal Cannula Nasal Cannula Nasal Cannula O2 Flow Rate 3.0 3.0 2.0 04/21/21 04/21/21 04/21/21 04/21/21 18:00 19:00 19:36 20:00 Pulse 54 57 Resp 18 18 18 B/P (MAP) 120/50 (73) 119/46 (70) Pulse Ox 91 95 O2 Delivery Nasal Cannula Nasal Cannula Nasal Cannula O2 Flow Rate 2.0 2.0 2.0 04/21/21 04/21/21 04/21/21 04/21/21 20:00 20:00 20:15 20:18 Temp 98.0 98.0 Pulse 54 Resp 18 20 B/P (MAP) 129/47 (74) 134/48 (76) Pulse Ox 95 94 O2 Delivery Nasal Cannula Nasal Cannula Nasal Cannula O2 Flow Rate 2.0 2.0 2.0 04/21/21 04/21/21 04/21/21 04/21/21 20:30 21:00 21:15 21:30 Pulse 53 Resp 18 B/P (MAP) 130/48 (75) 129/48 (75) 132/48 (76) 112/44 (66) Pulse Ox 97 O2 Delivery Nasal Cannula O2 Flow Rate 2.0 04/21/21 04/21/21 04/21/21 04/21/21 22:00 23:00 23:23 23:30 Pulse 56 53 Resp 18 20 20 B/P (MAP) 123/48 (73) 140/55 (83) Pulse Ox 97 95 96 O2 Delivery Nasal Cannula Nasal Cannula Nasal Cannula Nasal Cannula O2 Flow Rate 2.0 2.0 2.0 2.0 04/21/21 04/22/21 04/22/21 04/22/21 23:45 00:00 00:01 01:00 Temp 98.4 98.4 Pulse 53 53 Resp 20 20 B/P (MAP) 117/45 (69) 122/47 (72) 132/54 (80) Pulse Ox 96 98 O2 Delivery Nasal Cannula Nasal Cannula O2 Flow Rate 2.0 2.0 04/22/21 04/22/21 04/22/21 04/22/21 02:00 02:15 03:00 03:40 Pulse 58 52 Resp 20 20 B/P (MAP) 118/44 (68) 105/41 (62) 135/49 (77) Pulse Ox 97 97 95 O2 Delivery Nasal Cannula Nasal Cannula Nasal Cannula O2 Flow Rate 2.0 2.0 2.0 04/22/21 04/22/21 04/22/21 04/22/21 04:00 04:00 04:00 05:00 Temp 98.3 98.3 Pulse 47 47 Resp 20 20 B/P (MAP) 115/40 (65) 118/41 (66) Pulse Ox 97 97 O2 Delivery Nasal Cannula Nasal Cannula Nasal Cannula O2 Flow Rate 2.0 2.0 2.0 04/22/21 04/22/21 04/22/21 04/22/21 06:00 07:00 08:00 08:00 Pulse 46 48 Resp 18 18 B/P (MAP) 113/42 (65) 118/44 (68) Pulse Ox 96 98 O2 Delivery Nasal Cannula Nasal Cannula Room Air O2 Flow Rate 2.0 2.0 04/22/21 04/22/21 08:00 09:00 Temp 98.0 98.0 Pulse 50 47 Resp 18 16 B/P (MAP) 118/44 (68) 121/46 (71) Pulse Ox 94 93 O2 Delivery Room Air Room Air Intake and Output 04/21/21 04/21/21 04/22/21 15:00 23:00 07:00 Intake Total 675 ml 530.7 ml 64 ml Output Total 0 ml 15 ml 0 ml Balance 675 ml 515.7 ml 64 ml Justicifation of Admission Dx: Justifications for Admission: Justification of Admission Dx: N/A ORQUIDEA GAMINO MD Apr 22, 2021 09:47
--- NOTE | 2021-04-22 09:54 | PDOC ---
DATE OF SERVICE DATE: 04/22/21 TIME: 09:54 SUBJECTIVE ROS Alert , Denies SOB OBJECTIVE Vital Signs Vital Signs Date Time Temp Pulse Resp B/P (MAP) Pulse Ox O2 Delivery O2 Flow Rate FiO2 04/22/21 09:00 47 16 121/46 (71) 93 Room Air 04/22/21 08:00 98.0 98.0 04/22/21 07:00 2.0 I & 0 Intake and Output 04/22/21 07:00 Intake Total 1269.7 ml Output Total 15 ml Balance 1254.7 ml Intake Oral 960 ml IV Total 309.7 ml Output Urine Total 15 ml PHYSICAL EXAM Physical Exam GENERAL: NAD HEENT: Normocephalic, atraumatic. Anicteric. NECK supple LUNGS: Decreased at bases CV heart paced. ABDOMEN: Soft, nontender, nondistended. EXTREMITIES: No edema, no cyanosis. GENITOURINARY: Right groin temporary pacemaker, No [place]ay DERMATOLOGIC: Warm, dry, no generalized rash. NEUROLOGIC: AXOX3 PSYCHIATRIC: stable DIAGNOSIS/ASSESSMENT Assessment & Plan ESRD - On HD TTS,Dialyzed with UF . Currently Resp status and K stable. Plan for cardiac cath this morning; re-eval for dialysis after the cath . Currently on RA HyperKalemia- Resolved Ac Resp Failure - CxR Improving perihilar infiltrates with remaining interstitial thickening likely interstitial edema. Dizziness POA ; EKG with complete heart block; on BB at home. treated with Dopamine , required transcutaneous pacing. s/p temp pacemaker. Plan for possible R/LHC today Acute on chronic diastolic CHF; appears compensated, Echo 01/11 with preserved LV systolic function Valvular disease: moderate to severe and moderate MS Moderate secondary pulmonary HTN COMMENT/RELEVANT DATA Meds Current Medications Medications (Trade) Dose Ordered Sig/Kevin Start Time Stop Time Status Last Admin Dose Admin Acetaminophen (Tylenol) 650 mg PRN Q6HRS PRN 04/19/21 07:00 Albumin Human 200 ml @ 200 mls/hr 1X PRN PRN 04/22/21 08:30 04/22/21 14:29 Aspirin (Ecotrin) 81 mg [id number] 04/21/21 10:00 04/21/21 13:13 81 MG Atorvastatin Calcium (Lipitor) 10 mg QHS 04/21/21 21:00 04/21/21 21:08 10 MG Atropine Sulfate (ATROPINE 0.5mg SYRINGE) 0.5 mg 1X ONCE 04/22/21 09:15 04/22/21 09:16 DC 04/22/21 09:04 0.5 MG Azithromycin 250 ml @ 250 mls/hr 1X ONCE 04/19/21 00:30 04/19/21 00:29 DC Ceftriaxone Sodium (Rocephin) 1 gm 1X ONCE 04/19/21 00:30 04/19/21 00:29 DC Dopamine HCl/ Dextrose 250 ml @ 13.988 mls/ hr CONT PRN 04/19/21 09:00 04/20/21 11:35 27.975 MLS/HR Epinephrine HCl (Adrenalin) 1 mg STK-MED ONCE 04/19/21 10:18 04/19/21 10:18 DC Epinephrine HCl (EPINEPHrine SYRINGE) 0.5 mg 1X ONCE 04/19/21 10:17 04/19/21 11:02 DC 04/19/21 10:17 0.5 MG Fentanyl Citrate (Fentanyl 2ml Vial) 100 mcg 1X ONCE 04/19/21 11:00 04/19/21 11:02 DC 04/19/21 11:13 50 MCG Guaifenesin (Robitussin Dm) 10 ml PRN Q6HRS PRN 04/19/21 07:00 Heparin Sodium (Porcine) (Heparin Sodium) 5,000 unit Q8HRS 04/19/21 14:00 04/21/21 21:08 5,000 UNIT Heparin Sodium/ Sodium Chloride 1,500 ml @ As Directed STK-MED ONCE 04/22/21 07:40 04/22/21 07:40 DC Heparin Sodium/ Sodium Chloride (HEPARIN for ARTERIAL LINE FLUSH) 1,000 unit 1X ONCE 04/19/21 09:15 04/19/21 09:30 DC 04/19/21 09:15 1,000 UNIT Hydralazine HCl (Apresoline Inj) 10 mg PRN Q4HRS PRN 04/19/21 07:00 Info (PHARMACY MONITORING -- do not chart) 1 each PRN DAILY PRN 04/22/21 08:30 Iodixanol (Visipaque 320) 100 ml STK-MED ONCE 04/22/21 07:39 04/22/21 07:40 DC Lidocaine HCl (Lidocaine 1% 20ml Vial) 20 ml STK-MED ONCE 04/22/21 07:40 04/22/21 07:40 DC Lidocaine HCl (Xylocaine-Mpf 1% 2ml Vial) 2 ml 1X PRN PRN 04/20/21 08:00 04/21/21 07:59 DC Lorazepam (Ativan Inj) 2 mg PRN Q2HRS PRN 04/19/21 09:15 04/20/21 14:06 2 MG Midazolam HCl (Versed) 2 mg 1X ONCE 04/19/21 11:00 04/19/21 11:02 DC 04/19/21 11:13 2 MG Norepinephrine Bitartrate 8 mg/ Dextrose 258 ml @ 14.435 mls/ hr CONT PRN 04/19/21 10:15 04/21/21 08:55 21.653 MLS/HR Ondansetron HCl (Zofran) 4 mg PRN Q4HRS PRN 04/19/21 07:00 04/19/21 07:15 4 MG Piperacillin Sod/ Tazobactam Sod (Zosyn Per Pharmacy) 1 each PRN DAILY PRN 04/19/21 00:30 Piperacillin Sod/ Tazobactam Sod 2.25 gm/Sodium Chloride 50 ml @ 100 mls/hr Q8HRS 04/19/21 00:30 04/22/21 05:24 100 MLS/HR Sevelamer Carbonate (Renvela) 1,600 mg TIDWMEALS 04/19/21 08:00 04/21/21 16:21 1,600 MG Sodium Chloride 1,000 ml @ 400 mls/hr Q2H30M PRN 04/20/21 08:00 04/20/21 19:59 DC Sterile Water (WATER for RESP) 1,000 ml CONT PRN 04/20/21 11:15 04/20/21 20:28 1,000 ML Lab Laboratory Tests Test 04/22/21 05:20 White Blood Count 9.0 x10^3/uL (4.0-11.0) Red Blood Count 3.02 x10^6/uL (4.30-5.70) Hemoglobin 9.6 g/dL (13.0-17.5) Hematocrit 29.1 % (39.0-53.0) Mean Corpuscular Volume 96 fL (79-100) Mean Corpuscular Hemoglobin 32 pg (25-35) Mean Corpuscular Hemoglobin Concent 33 g/dL (31-37) Red Cell Distribution Width 16.1 % (11.5-14.5) Platelet Count 212 x10^3/uL (140-400) Neutrophils (%) (Auto) 63 % (31-73) Lymphocytes (%) (Auto) 13 % (24-48) Monocytes (%) (Auto) 13 % (0-9) Eosinophils (%) (Auto) 10 % (0-3) Basophils (%) (Auto) 1 % (0-3) Neutrophils # (Auto) 5.6 x10^3/uL (1.8-7.7) Lymphocytes # (Auto) 1.2 x10^3/uL (1.0-4.8) Monocytes # (Auto) 1.1 x10^3/uL (0.0-1.1) Eosinophils # (Auto) 0.9 x10^3/uL (0.0-0.7) Basophils # (Auto) 0.1 x10^3/uL (0.0-0.2) Sodium Level 131 mmol/L (136-145) Potassium Level 4.6 mmol/L (3.5-5.1) Chloride Level 93 mmol/L (98-107) Carbon Dioxide Level 27 mmol/L (21-32) Anion Gap 11 (6-14) Blood Urea Nitrogen 75 mg/dL (8-26) Creatinine 8.2 mg/dL (0.7-1.3) Estimated GFR (Cockcroft-Gault) 6.8 BUN/Creatinine Ratio 9 (6-20) Glucose Level 103 mg/dL (70-99) Calcium Level 8.7 mg/dL (8.5-10.1) Total Bilirubin 0.5 mg/dL (0.2-1.0) Aspartate Amino Transf (AST/SGOT) 23 U/L (15-37) Alanine Aminotransferase (ALT/SGPT) 32 U/L (16-63) Alkaline Phosphatase 166 U/L (46-116) Total Protein 7.2 g/dL (6.4-8.2) Albumin 2.4 g/dL (3.4-5.0) Albumin/Globulin Ratio 0.5 (1.0-1.7) Results All relevant outside records, renal labs, imaging studies, telemetry/EKG's were reviewed. Justicifation of Admission Dx: Justifications for Admission: Justification of Admission Dx: N/A MARIYA NORMAN MD Apr 22, 2021 09:54
[2021-04-22] MEDS ORDERED: fentaNYL PF VIAL 100 MCG/2 ML VIAL ONE (10:37)
[2021-04-22] MEDS ORDERED: MIDAZOLAM HCL/PF 2 MG/2 ML VIAL. ONE (10:37)
--- NOTE | 2021-04-22 10:48 | PDOC ---
PULMONARY PROGRESS NOTES DATE: 04/22/21 TIME: 10:46 Subjective Patient is doing much better. Currently down to room air. Vitals Vital Signs Date Time Temp Pulse Resp B/P (MAP) Pulse Ox O2 Delivery O2 Flow Rate FiO2 04/22/21 09:00 47 16 121/46 (71) 93 Room Air 04/22/21 08:00 98.0 98.0 04/22/21 07:00 2.0 General: Alert, No acute distress Lungs: Clear Cardiovascular: S1, S2 Abdomen: Soft, Non-tender Extremities: No Edema Labs Laboratory Tests Test 04/20/21 15:30 04/21/21 05:30 04/22/21 05:20 Sodium Level 132 mmol/L (136-145) 131 mmol/L (136-145) 131 mmol/L (136-145) Potassium Level 4.6 mmol/L (3.5-5.1) 4.4 mmol/L (3.5-5.1) 4.6 mmol/L (3.5-5.1) Chloride Level 94 mmol/L (98-107) 92 mmol/L (98-107) 93 mmol/L (98-107) Carbon Dioxide Level 30 mmol/L (21-32) 30 mmol/L (21-32) 27 mmol/L (21-32) Anion Gap 8 (6-14) 9 (6-14) 11 (6-14) Blood Urea Nitrogen 31 mg/dL (8-26) 49 mg/dL (8-26) 75 mg/dL (8-26) Creatinine 5.0 mg/dL (0.7-1.3) 6.4 mg/dL (0.7-1.3) 8.2 mg/dL (0.7-1.3) Estimated GFR (Cockcroft-Gault) 12.1 9.1 6.8 Glucose Level 124 mg/dL (70-99) 104 mg/dL (70-99) 103 mg/dL (70-99) Calcium Level 8.6 mg/dL (8.5-10.1) 8.7 mg/dL (8.5-10.1) 8.7 mg/dL (8.5-10.1) White Blood Count 12.0 x10^3/uL (4.0-11.0) 9.0 x10^3/uL (4.0-11.0) Red Blood Count 3.22 x10^6/uL (4.30-5.70) 3.02 x10^6/uL (4.30-5.70) Hemoglobin 10.2 g/dL (13.0-17.5) 9.6 g/dL (13.0-17.5) Hematocrit 31.0 % (39.0-53.0) 29.1 % (39.0-53.0) Mean Corpuscular Volume 96 fL (79-100) 96 fL (79-100) Mean Corpuscular Hemoglobin 32 pg (25-35) 32 pg (25-35) Mean Corpuscular Hemoglobin Concent 33 g/dL (31-37) 33 g/dL (31-37) Red Cell Distribution Width 16.0 % (11.5-14.5) 16.1 % (11.5-14.5) Platelet Count 209 x10^3/uL (140-400) 212 x10^3/uL (140-400) Neutrophils (%) (Auto) 77 % (31-73) 63 % (31-73) Lymphocytes (%) (Auto) 6 % (24-48) 13 % (24-48) Monocytes (%) (Auto) 12 % (0-9) 13 % (0-9) Eosinophils (%) (Auto) 4 % (0-3) 10 % (0-3) Basophils (%) (Auto) 1 % (0-3) 1 % (0-3) Neutrophils # (Auto) 9.3 x10^3/uL (1.8-7.7) 5.6 x10^3/uL (1.8-7.7) Lymphocytes # (Auto) 0.8 x10^3/uL (1.0-4.8) 1.2 x10^3/uL (1.0-4.8) Monocytes # (Auto) 1.4 x10^3/uL (0.0-1.1) 1.1 x10^3/uL (0.0-1.1) Eosinophils # (Auto) 0.5 x10^3/uL (0.0-0.7) 0.9 x10^3/uL (0.0-0.7) Basophils # (Auto) 0.1 x10^3/uL (0.0-0.2) 0.1 x10^3/uL (0.0-0.2) BUN/Creatinine Ratio 8 (6-20) 9 (6-20) Magnesium Level 2.0 mg/dL (1.8-2.4) Total Bilirubin 0.7 mg/dL (0.2-1.0) 0.5 mg/dL (0.2-1.0) Aspartate Amino Transf (AST/SGOT) 25 U/L (15-37) 23 U/L (15-37) Alanine Aminotransferase (ALT/SGPT) 35 U/L (16-63) 32 U/L (16-63) Alkaline Phosphatase 162 U/L (46-116) 166 U/L (46-116) Total Protein 7.4 g/dL (6.4-8.2) 7.2 g/dL (6.4-8.2) Albumin 2.5 g/dL (3.4-5.0) 2.4 g/dL (3.4-5.0) Albumin/Globulin Ratio 0.5 (1.0-1.7) 0.5 (1.0-1.7) Laboratory Tests Test 04/22/21 05:20 White Blood Count 9.0 x10^3/uL (4.0-11.0) Red Blood Count 3.02 x10^6/uL (4.30-5.70) Hemoglobin 9.6 g/dL (13.0-17.5) Hematocrit 29.1 % (39.0-53.0) Mean Corpuscular Volume 96 fL (79-100) Mean Corpuscular Hemoglobin 32 pg (25-35) Mean Corpuscular Hemoglobin Concent 33 g/dL (31-37) Red Cell Distribution Width 16.1 % (11.5-14.5) Platelet Count 212 x10^3/uL (140-400) Neutrophils (%) (Auto) 63 % (31-73) Lymphocytes (%) (Auto) 13 % (24-48) Monocytes (%) (Auto) 13 % (0-9) Eosinophils (%) (Auto) 10 % (0-3) Basophils (%) (Auto) 1 % (0-3) Neutrophils # (Auto) 5.6 x10^3/uL (1.8-7.7) Lymphocytes # (Auto) 1.2 x10^3/uL (1.0-4.8) Monocytes # (Auto) 1.1 x10^3/uL (0.0-1.1) Eosinophils # (Auto) 0.9 x10^3/uL (0.0-0.7) Basophils # (Auto) 0.1 x10^3/uL (0.0-0.2) Sodium Level 131 mmol/L (136-145) Potassium Level 4.6 mmol/L (3.5-5.1) Chloride Level 93 mmol/L (98-107) Carbon Dioxide Level 27 mmol/L (21-32) Anion Gap 11 (6-14) Blood Urea Nitrogen 75 mg/dL (8-26) Creatinine 8.2 mg/dL (0.7-1.3) Estimated GFR (Cockcroft-Gault) 6.8 BUN/Creatinine Ratio 9 (6-20) Glucose Level 103 mg/dL (70-99) Calcium Level 8.7 mg/dL (8.5-10.1) Total Bilirubin 0.5 mg/dL (0.2-1.0) Aspartate Amino Transf (AST/SGOT) 23 U/L (15-37) Alanine Aminotransferase (ALT/SGPT) 32 U/L (16-63) Alkaline Phosphatase 166 U/L (46-116) Total Protein 7.2 g/dL (6.4-8.2) Albumin 2.4 g/dL (3.4-5.0) Albumin/Globulin Ratio 0.5 (1.0-1.7) Medications Active Scripts Medications Dose Route/Sig Max Daily Dose Days Date Category Tums (Calcium Carbonate) 200 Mg Tab.chew 400 Mg PO HS 04/19/21 Reported Sensipar (Cinacalcet Hcl) 60 Mg Tablet 1 Tab PO DAILY 30 04/19/21 Reported Ferric Citrate 210 Mg Tablet 2 Tab PO TID 30 04/19/21 Reported Lasix (Furosemide) 40 Mg Tablet 40 Mg PO BID 04/19/21 Reported Renagel (Sevelamer Hcl) 800 Mg Tablet 2 Tab PO TIDWMEALS 01/18/21 Reported Kapspargo Sprinkle (Metoprolol Succinate) 50 Mg Cap.spr.24 50 Mg PO DAILY 01/18/21 Reported Comments Chest x-ray from 04/18/2021 reviewed. Bilateral faint interstitial infiltrates suggestive of CHF Impression . 1. Acute hypoxemic respiratory failure, multifactorial. Secondary to combination of third-degree heart block and CHF./Severe aortic stenosis. 2. Third-degree heart block, status post temporary pacemaker implantation. 3. Metabolic acidosis secondary to renal failure, possibly sepsis. 4. End-stage renal disease. 5. Abnormal x-ray revealing bilateral pulmonary infiltrates compatible with CHF. Less likely pneumonia, COVID-19 negative 6. Leukocytosis. 7. Secondary pulmonary hypertension. 8. Elevated liver function tests. 9. Toxic metabolic encephalopathy. Resolved Plan . PLAN: 1. Continue on room air. Keep saturations 94 and above. 2. Repeat chest x-ray 04/21 shows improving pulmonary edema. 3. De-escalate antibiotics. 4. Follow cardiology input. Patient's echo shows moderate to severe aortic stenosis. 5. Discussed with cardiology in detail. Patient needs a permanent pacemaker and aortic valve replacement. Likely TAVR. Will be transferring to this afternoon. 6. Continue ultrafiltration with hemodialysis. 7. Avoid hyperoxia. Discussed with RN and RT RUDI DAVALOS MD Apr 22, 2021 10:48
--- NOTE | 2021-04-22 10:57 | PDOC ---
Infectious Disease Note Subjective: Subjective Patient is doing better On room air Cardiology planning for PPM later today Vital Signs: Vital Signs Vital Signs Date Time Temp Pulse Resp B/P (MAP) Pulse Ox O2 Delivery O2 Flow Rate FiO2 04/22/21 09:00 47 16 121/46 (71) 93 Room Air 04/22/21 08:00 98.0 98.0 04/22/21 07:00 2.0 Physical Exam: PHYSICAL EXAM GENERAL: HEENT: Normocephalic, atraumatic. Anicteric. LUNGS: Crackles present, Heart Irregular, ABDOMEN: Soft, nontender, nondistended. EXTREMITIES: No edema, no cyanosis. GENITOURINARY: Right groin temporary pacemaker with line placed and looks clean. SPC in place clean DERMATOLOGIC: Warm, dry, no generalized rash. NEUROLOGIC: Alert awake agitated PSYCHIATRIC: Agitated MUSCULOSKELETAL: Changes suggestive of DJD. Medications: Inpatient Meds: Medications reviewed. Labs: Lab Laboratory Tests Test 04/22/21 05:20 White Blood Count 9.0 x10^3/uL (4.0-11.0) Red Blood Count 3.02 x10^6/uL (4.30-5.70) Hemoglobin 9.6 g/dL (13.0-17.5) Hematocrit 29.1 % (39.0-53.0) Mean Corpuscular Volume 96 fL (79-100) Mean Corpuscular Hemoglobin 32 pg (25-35) Mean Corpuscular Hemoglobin Concent 33 g/dL (31-37) Red Cell Distribution Width 16.1 % (11.5-14.5) Platelet Count 212 x10^3/uL (140-400) Neutrophils (%) (Auto) 63 % (31-73) Lymphocytes (%) (Auto) 13 % (24-48) Monocytes (%) (Auto) 13 % (0-9) Eosinophils (%) (Auto) 10 % (0-3) Basophils (%) (Auto) 1 % (0-3) Neutrophils # (Auto) 5.6 x10^3/uL (1.8-7.7) Lymphocytes # (Auto) 1.2 x10^3/uL (1.0-4.8) Monocytes # (Auto) 1.1 x10^3/uL (0.0-1.1) Eosinophils # (Auto) 0.9 x10^3/uL (0.0-0.7) Basophils # (Auto) 0.1 x10^3/uL (0.0-0.2) Sodium Level 131 mmol/L (136-145) Potassium Level 4.6 mmol/L (3.5-5.1) Chloride Level 93 mmol/L (98-107) Carbon Dioxide Level 27 mmol/L (21-32) Anion Gap 11 (6-14) Blood Urea Nitrogen 75 mg/dL (8-26) Creatinine 8.2 mg/dL (0.7-1.3) Estimated GFR (Cockcroft-Gault) 6.8 BUN/Creatinine Ratio 9 (6-20) Glucose Level 103 mg/dL (70-99) Calcium Level 8.7 mg/dL (8.5-10.1) Total Bilirubin 0.5 mg/dL (0.2-1.0) Aspartate Amino Transf (AST/SGOT) 23 U/L (15-37) Alanine Aminotransferase (ALT/SGPT) 32 U/L (16-63) Alkaline Phosphatase 166 U/L (46-116) Total Protein 7.2 g/dL (6.4-8.2) Albumin 2.4 g/dL (3.4-5.0) Albumin/Globulin Ratio 0.5 (1.0-1.7) Objective: Assessment: 1. Acute hypoxic respiratory failure, appears multifactorial. 2. Leukocytosis, improving, blood cultures negative so far 3. Complete heart block, status post temporary pacemaker placement, right groin, 04/19/2021. 4. End-stage renal disease, on hemodialysis. 5. Congestive heart failure. 6. Chronic obstructive pulmonary disease, pulmonary hypertension. 7. Benign prostatic hypertrophy. 8. Anemia. 9. History of pericardial effusion. 10. Hyponatremia. 11. Hyperkalemia. 12. Abnormal liver function tests. Plan: Plan of Care 1. Continue Zosyn, renal dosing. 2. Monitor labs and cultures. UA UC pending,SPC exchange if not done already 3. Continue supportive care. 4. Temporary pacemaker and femoral line management as directed. Awaiting permanent pacemaker placement Blood cultures remain negative. No contraindication from infectious disease standpoint to proceed with PPM 5. Maintain aspiration precaution. D/W BRYSON GARCES MD Apr 22, 2021 10:57
[2021-04-22] MEDS ORDERED: MIDAZOLAM HCL/PF 2 MG/2 ML VIAL. IV ONE (11:00)
[2021-04-22] MEDS ORDERED: fentaNYL PF VIAL 100 MCG/2 ML VIAL IV ONE (11:00)
[2021-04-22] MEDS ORDERED: IODIXANOL 320 MG/ML 100 ML VIAL. IART ONE (11:00)
[2021-04-22] MEDS ORDERED: LIDOCAINE 1% Multi-Dose 20 ML VIAL. INJ ONE (11:00)
[2021-04-22] MEDS: ASPIRIN ENTERIC COATED 81 MG TABLET.DR. PO SCH (12:40)
--- NOTE | 2021-04-22 12:44 | NUR ---
1215- pt back from labor mediator, Cath was clean per Dr Ayers. Sheath for Transvenous pacemaker in Left IJ. Right Femoral sheath and A-line dc'd in labor mediator. Dressing is CDI, site is soft upon palpation, pedal pulses 1+. VSS on 0.05 of Levo, 2LNC, in no apparent distress. Currently waiting on approval from to transfer for placement of lead less pacemaker. Will monitor
--- NOTE | 2021-04-22 13:06 | CARD ---
MR#: [id number] Date of Study: 04/22/2021 Ordering Physician: SANJEEV PASTOR, Referring Physician: SANJEEV PASTOR, Tech: RT Lon(R)() APPROVED REPORT Technologist: RT Lon(R)() Nurse: Aurora Vo RN Procedure(s) performed: fl time: 8.0 mins dose: 36 gycm2 contrast: 34 ml moderate sedation: 64 MINS Coronary angiography, RHC, Temp pacemaker from the [facility] and removal of the right groin pacemaker. [facility] Clinical Frailty Scale [facility] Clinical Frailty Scale: Severely Frail Heart Failure Heart Failure: Yes If Yes, Newly Diagnosed: No If Yes, HF Type: Diastolic If Yes, NYHA Class: Class III CASE TECHNIQUE IV conscious sedation was used throughout procedure with appropriate monitoring and was performed in the presence of a registered nurse who was an independent trained observer other than the physician p erforming the procedure. During this case, Fluoroscopy and low osmolar contrast were used for imaging . Specimen(s) Removed: N/A Estimated Blood loss: 15 cc's. PROCEDURE NARRATIVE Clinical information: 55-year-old male with past medical history of hypertension, dyslipidemia and end-stage renal disease on hemodialysis who presented to the hospital in the setting of respiratory distress. He was initiall y on noninvasive ventilation and had severe high-grade AV block requiring temporary pacemaker placeme nt. His pacemaker was unable to be placed to the right IJ initially on 04/19/2021 and had a right corbin svenous pacemaker placed through the groin. He has been dialyzed aggressively over the last 3 days an d his respiratory status has improved significantly. He was also noted to have severe aortic stenosis on echocardiogram and is brought to the catheterization laboratory today for coronary angiography, r ight heart catheterization and removing his groin pacemaker with placement of a temporary pacemaker t hrough the left IJ. Procedure details: The right groin, left neck were prepped in usual sterile fashion. Under 1% lidocaine local anesthesia a 5 [place] sheath was placed in the left internal jugular vein via ultrasound guidance. Next, a 5 Fr ench PA catheter was advanced to the right heart chambers and pressures and saturations were obtained . The PA catheter was then removed and a J-tipped guidewire was placed in the IVC and over this wire a 23 cm 6 [place] Brite tip sheath was placed in the superior vena cava. Due to significant proximal t ortuosity involving the brachiocephalic veins initial advancement of a pacemaker over the short sheat h was unsuccessful. Ultimately, a transvenous pacemaker was placed from the left internal jugular vei n access site and appropriate thresholds were obtained. The right groin pacemaker was then removed. T he right femoral arterial access sheath was then upsized to a 6 [place] sheath and diagnostic angiogra phy was performed with a 6 [place] JL4 and JR4 catheters. At case completion the groin sheath was adriana yevgeniy and hemostasis was achieved with manual compression and the left IJ sheath and pacemaker were sec ured in place and at case completion appropriate thresholds were again noted. Findings: Aorta 90/60 Right heart catheterization RA: /16 RV: 74/3/19 PA: 76/22/38 PCWP: / Eliza CO: 4.1 L/min PA Sat 56.1% FA Sat 96% Coronary angiography: LM: Large caliber vessel with normal angiographic appearance. LAD: Moderate to large caliber vessel with normal angiographic appearance. D1-D2: Small caliber vessels with normal angiographic appearance LCX: Moderate to large caliber vessel with normal angiographic appearance. OM1: Moderate to large caliber vessel with normal angiographic appearance. RCA: Large caliber dominant vessel with normal angiographic appearance Conclusion 1. Biventricular volume overload. 2. Secondary pulmonary hypertension, mean PA 38 mmHg 3. Normal cardiac output 4. Normal angiographic appearance of the coronary arteries 5. Successful insertion of a left IJ transvenous pacemaker and removal of right groin transvenous pa cemaker Recommendations 1. We will plan on referral to [facility] for evaluation of a [employer] Micra AV leadless pac emaker given that the patient has limited venous access due to right-sided hemodialysis fistula, righ t IJ subtotal occlusion and in order to preserve future dialysis access given his preserved LV functi on and appropriate sinus node function he will be considered for a leadless pacemaker placement. 2. He will also need subsequent evaluation on an outpatient basis for transcatheter aortic valve rep lacement versus surgical aortic valve replacement. 3. Await transfer to [facility]. Signed by : Inocente Ayers, Electronically Approved : 04/22/2021 13:06:13
--- NOTE | 2021-04-22 15:24 | NUR ---
SS following up with discharge planning. SS reviewed pt chart and discussed with pt RN. Pt is currently requiring oxygen at two liters nasal canula. COVID19 negative. Pt on Levophed and IV Zosyn. Pt has Temporary Pacemaker. Pt has outpatient dialysis at [facility], Monday, , and Monday. 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 Pt needing transfer to for Leadless Pacemaker. SS contacted transfer team this morning and was told that they were at capacity in ICU. SS received call from An, ; fax [phone], in the transfer team this afternoon stating that a bed has opened up. Records requested. SS faxed demographics and records as requested to . Currently awaiting acceptance decision at this time. Packet, ambulance form, and transfer form on the chart. SS will continue to follow for discharge planning. Addendum: 04/22/21 at 1639 by ARIELLE MARTINEZ SS Pt accepted at for transfer. Accepting physician, Dr. Olguin. Bed#[id number]. Report#[phone]. Pt will discharge today and go to between 1700 and 1730 via [facility] ambulance, . Ambulance form, transfer form, and packet placed on chart.
--- NOTE | 2021-04-22 17:44 | PDOC3 ---
Discharge Summary Date of Admission: Apr 19, 2021 Date of Discharge: Apr 22, 2021 Follow-Up: 1-2 days Admitting Diagnosis comment: VTE Prophylaxis Ordered VTE Prophylaxis Devices: Yes VTE Pharmacological Prophylaxi: Yes Consults cardiology, pulmonary, nephrology transfer dx A/P: Acute encephalopathy - likely due to metabolic derangement, hypoxia, and CHB. no clear focal deficits neurologically Complete heart block - on external pacing, dopamine. Cardiology consulted./ ICU admitted. Acute respiratory failure with hypoxia - BIPAP. Likely fluid overload from acute diastolic CHF Metabolic acidosis - due to hypoxia, ESRD Acute diastolic CHF - will need UF with dialysis COPD - with likely exacerbation complicated by CHF. On bipap currently HTN - prn hydralazine ESRD on PD recently transitioned to HD - nephrology consulted for HD Mild Transaminitis - likely from acute CHF. Will f/u final COVID results Moderate protein malnutrition - will start early nutrition when more alert Anemia of ESRD - monitor Leukocytosis - meets SIRS, treating for sepsis due to COPD exacerbation/pneumonia with zosyn plan icu bed FEN -cardiac diet PPX - heparin FULL CODE Dispo - inpatient ICU nonrebreather mask at 100% FiO2. EKG with complete heart block; on BB at home. treated with Dopamine and required transcutaneous pacing. s/p temp pacemaker Continue Zosyn, renal dosing cc time 34 minutes Justifications for Admission Justifications for Admission Other Justification SBO History of Present Illness History of Present Illness dentification/Chief Complaint Chief Complaint Confusion Source Source: Patient History of Present Illness History of Present Illness Mr Dowling is a 55yo M w/ PMHx CHF, COPD, HTN, ESRD on PD recently transitioned to HD who presents to the emergency room complaining of dizziness while carrying a box at home. Patient denies chest pains, chest congestion, nasal congestion. Patient states he feels a little short of breath, states he feels as if he is going to pass out. Patient denies actual syncopal episodes. He recently transitioned from PD to HD this past summer. WBC 13.4, Hb 11.6, platelets 330, NA 134, K5.1, BUN 62, CR 8.5, glucose 120 calcium 8.3, phosphorus 9.5, mag 1.9, bilirubin 0.3, AST 50, ALT 68, alk phos 295, albumin 3, troponin 0, lactate 0.9, NT proBNP greater than 35,000, ABG 7.2/48/203 Chest radiograph with patchy bilateral parenchymal opacities. Initial EKG appears to be third-degree heart block rate of [address] on external pacing, dopamine infusion He was hypoxic and confused in ED, initially attempted to get out of bed with significant O2 desaturations, requiring BIPAP. Admitted for further care to ICU Past Medical History Cardiovascular: No pertinent hx, HTN Pulmonary: Bronchitis, COPD, Other CENTRAL NERVOUS SYSTEM: Other GI: No pertinent hx, GI bleed Heme/Onc: Anemia NOS Hepatobiliary: No pertinent hx Psych: No pertinent hx Rheumatologic: No pertinent hx Infectious disease: Other Renal/: Chronic renal insuff, Chronic renal failure, UTI, Other Endocrine: No pertinent hx, Hyperparathyroidism Past Surgical History Past Surgical History: Other Family History Family History: Coronary Artery Disease Social History Smoke: No ALCOHOL: none Drugs: None Current Problem List Problem List Problems Medical Problems: (1) Community acquired pneumonia Status: Acute (2) ESRD (end stage renal disease) Status: Acute (3) Third degree heart block Status: Acute Current Medications Current Medications Current Medications Atropine Sulfate (ATROPINE 0.5mg SYRINGE) 0.5 mg 1X ONCE IV Last administered on 04/18/21at 23:38; Start 04/19/21 at 00:00; Stop 04/19/21 at 00:01; Status DC Dopamine HCl/ Dextrose 250 ml @ 13.125 mls/ hr 1X ONCE IV Last administered on 04/18/21at 23:49; Start 04/19/21 at 00:00; Stop 04/19/21 at 19:02 Sodium Chloride 500 ml @ 250 mls/hr 1X ONCE IV Last administered on 04/18/21at 23:54; Start 04/19/21 at 00:00; Stop 04/19/21 at 01:59; Status DC Ceftriaxone Sodium (Rocephin) 1 gm 1X ONCE IVP ; Start 04/19/21 at 00:30; Stop 04/19/21 at 00:29; Status DC Azithromycin 250 ml @ 250 mls/hr 1X ONCE IV ; Start 04/19/21 at 00:30; Stop 04/19/21 at 00:29; Status DC Piperacillin Sod/ Tazobactam Sod (Zosyn Per Pharmacy) 1 each PRN DAILY PRN MC SEE COMMENTS; Start 04/19/21 at 00:30 Piperacillin Sod/ Tazobactam Sod 2.25 gm/Sodium Chloride 50 ml @ 100 mls/hr Q8HRS IV Last administered on 04/19/21at 06:00; Start 04/19/21 at 00:30 Albumin Human 250 ml @ 62.5 mls/hr 1X ONCE IV Last administered on 04/19/21at 01:37; Start 04/19/21 at 02:00; Stop 04/19/21 at 05:59; Status DC Albumin Human 100 ml @ 100 mls/hr 1X ONCE IV Last administered on 04/19/21at 03:06; Start 04/19/21 at 03:30; Stop 04/19/21 at 04:29; Status DC Ondansetron HCl (Zofran) 4 mg PRN Q6HRS PRN IVP NAUSEA/VOMITING 1ST CHOICE Last administered on 04/19/21at 03:07; Start 04/19/21 at 03:00 Ondansetron HCl (Zofran) 4 mg STK-MED ONCE .ROUTE ; Start 04/19/21 at 02:59; Stop 04/19/21 at 02:59; Status DC Sodium Chloride 500 ml @ 250 mls/hr 1X ONCE IV Last administered on 04/19/21at 04:29; Start 04/19/21 at 04:00; Stop 04/19/21 at 05:59; Status DC Lorazepam (Ativan Inj) 2 mg STK-MED ONCE .ROUTE ; Start 04/19/21 at 05:41; Stop 04/19/21 at 05:41; Status DC Lorazepam (Ativan Inj) 1 mg 1X ONCE IVP Last administered on 04/19/21at 05:52; Start 04/19/21 at 06:30; Stop 04/19/21 at 06:31; Status DC Active Scripts Active Reported Ferric Citrate 210 Mg Tablet 210 Mg PO TIDAC Renagel (Sevelamer Hcl) 800 Mg Tablet 2 Tab PO TIDWMEALS Calcitriol 0.25 Mcg Capsule 1 Cap PO DAILY Furosemide 40 Mg Tablet 1 Tab PO DAILY Kapspargo Sprinkle (Metoprolol Succinate) 50 Mg Cap.spr.24 50 Mg PO DAILY Cinacalcet HCl 30 Mg Tablet 30 Mg PO QMWF Allergies Allergies: Coded Allergies: No Known Drug Allergies (Unverified , 02/17/21) HOSPITAL COURSE 04-21 Off dopamine no further bradycardia or high grade blocks. Titrate off levophed Fluid offloading via HD Continue to optimize then plan for R/LHC 04-22 Acute encephalopathy - likely due to metabolic derangement, hypoxia, and CHB. no clear focal deficits neurologically Complete heart block - on external pacing, dopamine. Cardiology consulted./ ICU admitted. Acute respiratory failure with hypoxia - BIPAP. Likely fluid overload from acute diastolic CHF Metabolic acidosis - due to hypoxia, ESRD Acute diastolic CHF - will need UF with dialysis COPD - with likely exacerbation complicated by CHF. On bipap currently HTN - prn hydralazine ESRD on PD recently transitioned to HD - nephrology consulted for HD Mild Transaminitis - likely from acute CHF. Will f/u final COVID results Moderate protein malnutrition - will start early nutrition when more alert Anemia of ESRD - monitor Leukocytosis - meets SIRS, treating for sepsis due to COPD exacerbation/pneumonia with zosyn icu bed FEN -cardiac diet PPX - heparin FULL CODE Dispo - inpatient ICU nonrebreather mask at 100% FiO2. EKG with complete heart block; on BB at home. treated with Dopamine and required transcutaneous pacing. s/p temp pacemaker Continue Zosyn, renal dosing cc time 34 minutes 04-22 moderate to moderately severe valvular aortic stenosis. Off dopamine no further bradycardia or high grade blocks. Titrate off levophed Fluid offloading via HD Continue to optimize then plan for R/LHC 04-22 Acute encephalopathy - likely due to metabolic derangement, hypoxia, and CHB. no clear focal deficits neurologically Complete heart block - on external pacing, dopamine. Cardiology consulted./ ICU admitted. Acute respiratory failure with hypoxia - BIPAP. Likely fluid overload from acute diastolic CHF Metabolic acidosis - due to hypoxia, ESRD Acute diastolic CHF - will need UF with dialysis COPD - with likely exacerbation complicated by CHF. On bipap currently HTN - prn hydralazine ESRD on PD recently transitioned to HD - nephrology consulted for HD Mild Transaminitis - likely from acute CHF. Will f/u final COVID results Moderate protein malnutrition - will start early nutrition when more alert Anemia of ESRD - monitor Leukocytosis - meets SIRS, treating for sepsis due to COPD exacerbation/pneumoni a with zosyn icu bed FEN -cardiac diet PPX - heparin FULL CODE Dispo - inpatient ICU nonrebreather mask at 100% FiO2. EKG with complete heart block; on BB at home. treated with Dopamine and required transcutaneous pacing. s/p temp pacemaker Continue Zosyn, renal dosing cc time 33 minutes needs a permanent pacemaker and aortic valve replacement. Likely TAVR. Will be transferring to this afternoon / moderate to moderately severe valvular aortic stenosis. Vitals Vitals Vital Signs Date Time Temp Pulse Resp B/P (MAP) Pulse Ox O2 Delivery O2 Flow Rate FiO2 04/22/21 09:00 47 16 121/46 (71) 93 Room Air 04/22/21 08:00 98.0 98.0 04/22/21 07:00 2.0 Physical Exam Physical Exam GENERAL: Restless, more awake HEENT: Normocephalic, atraumatic. Anicteric. LUNGS: Crackles present, heart 100% paced. ABDOMEN: Soft, nontender, nondistended. EXTREMITIES: No edema, no cyanosis. GENITOURINARY: Right groin temporary pacemaker with line placed and looks clean. SPC in place clean DERMATOLOGIC: Warm, dry, no generalized rash. NEUROLOGIC: Alert awake agitated PSYCHIATRIC: Agitated MUSCULOSKELETAL: Changes suggestive of DJD. General: Alert, Oriented X3, Cooperative, No acute distress, Other (somnolent ) Heart: Regular rate, Normal S1, Other (100% vpaced ) Lungs: Clear Abdomen: Normal bowel sounds, Soft Extremities: No clubbing, No cyanosis, No edema Skin: No significant lesion Labs LABS PERICARDIAL EFFUSION There is no evidence of significant pericardial effusion. Critical Notification Critical Value: No <Conclusion> Technically difficult study. The left ventricle is normal size. The left ventricular systolic function is grossly normal. LV Ejection Fraction of 55-60%. Septal motion consistent with conduction abnormality. There is borderline to mild concentric left ventricular hypertrophy. There is a pacemaker lead in the right ventricle. The aortic valve is calcified and displays decreased opening. Doppler and Color Flow revealed trace to mild aortic regurgitation. There appears to be moderate to moderately severe valvular aortic stenosis. The mitral valve is calcified and displays decreased opening. There is moderate mitral valve stenosis with a mean gradient of 7.01 mmHg. Doppler and Color-flow revealed trace to mild mitral regurgitation. Doppler and Color Flow revealed trace to mild tricuspid regurgitation with an estimated PAP of 50 mmHg. Signed by : Chuck Merritt MD Electronically Approved : 04/20/2021 19:14:30 DICTATED and SIGNED BY: CHUCK MERRITT MD DATE: 04/20/21 [id number] 0 FINAL DIAGNOSIS Problems Medical Problems: (1) Community acquired pneumonia Status: Acute (2) ESRD (end stage renal disease) Status: Acute (3) Third degree heart block Status: Acute Brief Hospital Course Mr. Dowlign is a 55 old [sex] who presented with [ ] CONDITION AT DISCHARGE: Comment (guarded) Discharge Medications Current Medications Atropine Sulfate (ATROPINE 0.5mg SYRINGE) 0.5 mg 1X ONCE IV Last administered on 04/18/21at 23:38; Start 04/19/21 at 00:00; Stop 04/19/21 at 00:01; Status DC Dopamine HCl/ Dextrose 250 ml @ 13.125 mls/ hr 1X ONCE IV Last administered on 04/18/21at 23:49; Start 04/19/21 at 00:00; Stop 04/19/21 at 10:30; Status DC Sodium Chloride 500 ml @ 250 mls/hr 1X ONCE IV Last administered on 04/18/21at 23:54; Start 04/19/21 at 00:00; Stop 04/19/21 at 01:59; Status DC Ceftriaxone Sodium (Rocephin) 1 gm 1X ONCE IVP ; Start 04/19/21 at 00:30; Stop 04/19/21 at 00:29; Status DC Azithromycin 250 ml @ 250 mls/hr 1X ONCE IV ; Start 04/19/21 at 00:30; Stop 04/19/21 at 00:29; Status DC Piperacillin Sod/ Tazobactam Sod (Zosyn Per Pharmacy) 1 each PRN DAILY PRN MC SEE COMMENTS; Start 04/19/21 at 00:30 Piperacillin Sod/ Tazobactam Sod 2.25 gm/Sodium Chloride 50 ml @ 100 mls/hr Q8HRS IV Last administered on 04/22/21at 17:31; Start 04/19/21 at 00:30 Albumin Human 250 ml @ 62.5 mls/hr 1X ONCE IV Last administered on 04/19/21at 01:37; Start 04/19/21 at 02:00; Stop 04/19/21 at 05:59; Status DC Albumin Human 100 ml @ 100 mls/hr 1X ONCE IV Last administered on 04/19/21at 03:06; Start 04/19/21 at 03:30; Stop 04/19/21 at 04:29; Status DC Ondansetron HCl (Zofran) 4 mg PRN Q6HRS PRN IVP NAUSEA/VOMITING 1ST CHOICE Last administered on 04/19/21at 03:07; Start 04/19/21 at 03:00; Stop 04/19/21 at 07:11; Status DC Ondansetron HCl (Zofran) 4 mg STK-MED ONCE .ROUTE ; Start 04/19/21 at 02:59; Stop 04/19/21 at 02:59; Status DC Sodium Chloride 500 ml @ 250 mls/hr 1X ONCE IV Last administered on 04/19/21at 04:29; Start 04/19/21 at 04:00; Stop 04/19/21 at 05:59; Status DC Lorazepam (Ativan Inj) 2 mg STK-MED ONCE .ROUTE ; Start 04/19/21 at 05:41; Stop 04/19/21 at 05:41; Status DC Lorazepam (Ativan Inj) 1 mg 1X ONCE IVP Last administered on 04/19/21at 05:52; Start 04/19/21 at 06:30; Stop 04/19/21 at 06:31; Status DC Ondansetron HCl (Zofran) 4 mg PRN Q4HRS PRN IVP NAUSEA/VOMITING Last administered on 04/19/21at 07:15; Start 04/19/21 at 07:00 Guaifenesin (Robitussin Dm) 10 ml PRN Q6HRS PRN PO COUGH; Start 04/19/21 at 07:00 Heparin Sodium (Porcine) (Heparin Sodium) 5,000 unit Q8HRS SQ Last administered on 04/22/21at 17:32; Start 04/19/21 at 14:00 Hydralazine HCl (Apresoline Inj) 10 mg PRN Q4HRS PRN IVP ELEVATED BP, SEE COMMENTS; Start 04/19/21 at 07:00 Acetaminophen (Tylenol) 650 mg PRN Q6HRS PRN PO MILD PAIN / TEMP > 100.3'F; Start 04/19/21 at 07:00 Fentanyl Citrate (Fentanyl 2ml Vial) 25 mcg PRN Q3HRS PRN IVP SEVERE PAIN 7-10 Last administered on 04/22/21at 16:27; Start 04/19/21 at 07:00 Sevelamer Carbonate (Renvela) 1,600 mg TIDWMEALS PO Last administered on 04/22/21at 17:33; Start 04/19/21 at 08:00 Lorazepam (Ativan Inj) 1 mg PRN Q4HRS PRN IVP ANXIETY / AGITATION Last administered on 04/19/21at 07:51; Start 04/19/21 at 07:45; Stop 04/21/21 at 07:55; Status DC Dopamine HCl/ Dextrose 250 ml @ 13.988 mls/ hr CONT PRN IV SEE I/O RECORD Last administered on 04/20/21at 11:35; Start 04/19/21 at 09:00 Lidocaine HCl (Lidocaine 1% 20ml Vial) 20 ml STK-MED ONCE .ROUTE ; Start 04/19/21 at 09:01; Stop 04/19/21 at 09:02; Status DC Heparin Sodium/ Sodium Chloride 500 ml @ As Directed STK-MED ONCE .ROUTE ; Start 04/19/21 at 09:02; Stop 04/19/21 at 09:02; Status DC Heparin Sodium/ Sodium Chloride (HEPARIN for ARTERIAL LINE FLUSH) 1,000 unit 1X ONCE IART Last administered on 04/19/21at 09:15; Start 04/19/21 at 09:15; Stop 04/19/21 at 09:30; Status DC Lidocaine HCl (Lidocaine 1% 20ml Vial) 20 ml 1X ONCE INJ Last administered on 04/19/21at 09:46; Start 04/19/21 at 09:15; Stop 04/19/21 at 09:30; Status DC Fentanyl Citrate (Fentanyl 2ml Vial) 100 mcg PRN Q2HR PRN IVP SEVERE PAIN 7-10, 2ND CHOICE Last administered on 04/20/21at 14:05; Start 04/19/21 at 09:15 Lorazepam (Ativan Inj) 2 mg PRN Q2HRS PRN IVP ANXIETY / AGITATION Last administered on 04/20/21at 14:06; Start 04/19/21 at 09:15 Norepinephrine Bitartrate 8 mg/ Dextrose 258 ml @ 14.435 mls/ hr CONT PRN IV PER PROTOCOL Last administered on 04/21/21at 08:55; Start 04/19/21 at 10:15 Epinephrine HCl (Adrenalin) 1 mg STK-MED ONCE .ROUTE ; Start 04/19/21 at 10:18; Stop 04/19/21 at 10:18; Status DC Heparin Sodium/ Sodium Chloride 500 ml @ As Directed STK-MED ONCE .ROUTE ; Start 04/19/21 at 10:30; Stop 04/19/21 at 10:30; Status DC Iodixanol (Visipaque 320) 100 ml STK-MED ONCE .ROUTE ; Start 04/19/21 at 10:32; Stop 04/19/21 at 10:32; Status DC Midazolam HCl (Versed) 2 mg STK-MED ONCE .ROUTE ; Start 04/19/21 at 10:34; Stop 04/19/21 at 10:34; Status DC Fentanyl Citrate (Fentanyl 2ml Vial) 100 mcg STK-MED ONCE .ROUTE ; Start 04/19/21 at 10:34; Stop 04/19/21 at 10:35; Status DC Heparin Sodium/ Sodium Chloride 500 ml @ As Directed STK-MED ONCE .ROUTE ; Start 04/19/21 at 10:44; Stop 04/19/21 at 10:44; Status DC Midazolam HCl (Versed) 2 mg 1X ONCE IV Last administered on 04/19/21at 11:13; Start 04/19/21 at 11:00; Stop 04/19/21 at 11:02; Status DC Fentanyl Citrate (Fentanyl 2ml Vial) 100 mcg 1X ONCE IV Last administered on 04/19/21at 11:13; Start 04/19/21 at 11:00; Stop 04/19/21 at 11:02; Status DC Epinephrine HCl (EPINEPHrine SYRINGE) 0.5 mg 1X ONCE IV Last administered on 04/19/21at 10:17; Start 04/19/21 at 10:17; Stop 04/19/21 at 11:02; Status DC Albumin Human 200 ml @ 200 mls/hr 1X PRN PRN IV Hypotension; Start 04/19/21 at 14:00; Stop 04/19/21 at 19:59; Status DC Info (PHARMACY MONITORING -- do not chart) 1 each PRN DAILY PRN MC SEE COMMENTS; Start 04/19/21 at 14:00; Status Cancel Info (PHARMACY MONITORING -- do not chart) 1 each PRN DAILY PRN MC SEE COMMENTS; Start 04/19/21 at 18:15; Status Cancel Sodium Chloride 1,000 ml @ 1,000 mls/hr Q1H PRN IV hypotension; Start 04/20/21 at 08:00; Stop 04/20/21 at 13:59; Status DC Albumin Human 200 ml @ 200 mls/hr 1X PRN PRN IV Hypotension; Start 04/20/21 at 08:00; Stop 04/20/21 at 13:59; Status DC Sodium Chloride 1,000 ml @ 400 mls/hr Q2H30M PRN IV PATENCY; Start 04/20/21 at 08:00; Stop 04/20/21 at 19:59; Status DC Lidocaine HCl (Xylocaine-Mpf 1% 2ml Vial) 2 ml 1X PRN PRN INJ FOR DIALYSIS; Start 04/20/21 at 08:00; Stop 04/21/21 at 07:59; Status DC Info (PHARMACY MONITORING -- do not chart) 1 each PRN DAILY PRN MC SEE COMMENTS; Start 04/20/21 at 08:00; Status UNV Info (PHARMACY MONITORING -- do not chart) 1 each PRN DAILY PRN MC SEE COMMENTS; Start 04/20/21 at 08:00; Stop 04/22/21 at 14:25; Status DC Sterile Water (WATER for RESP) 1,000 ml CONT PRN INH VIA VAPOTHERM DEVICE Last administered on 04/20/21at 20:28; Start 04/20/21 at 11:15 Aspirin (Ecotrin) 81 mg DAILYWBKFT PO Last administered on 04/22/21at 12:40; Start 04/21/21 at 10:00 Atorvastatin Calcium (Lipitor) 10 mg QHS PO Last administered on 04/21/21at 21:08; Start 04/21/21 at 21:00 Iodixanol (Visipaque 320) 100 ml STK-MED ONCE .ROUTE ; Start 04/22/21 at 07:39; Stop 04/22/21 at 07:40; Status DC Lidocaine HCl (Lidocaine 1% 20ml Vial) 20 ml STK-MED ONCE .ROUTE ; Start 04/22/21 at 07:40; Stop 04/22/21 at 07:40; Status DC Heparin Sodium/ Sodium Chloride 500 ml @ As Directed STK-MED ONCE .ROUTE ; Start 04/22/21 at 07:40; Stop 04/22/21 at 07:40; Status DC Albumin Human 200 ml @ 200 mls/hr 1X PRN PRN IV Hypotension; Start 04/22/21 at 08:30; Stop 04/22/21 at 14:29; Status DC Info (PHARMACY MONITORING -- do not chart) 1 each PRN DAILY PRN MC SEE COMMENTS; Start 04/22/21 at 08:30 Atropine Sulfate (ATROPINE 0.5mg SYRINGE) 0.5 mg STK-MED ONCE .ROUTE ; Start 04/22/21 at 08:57; Stop 04/22/21 at 08:57; Status DC Atropine Sulfate (ATROPINE 0.5mg SYRINGE) 0.5 mg 1X ONCE IV Last administered on 04/22/21at 09:04; Start 04/22/21 at 09:15; Stop 04/22/21 at 09:16; Status DC Iodixanol (Visipaque 320) 100 ml STK-MED ONCE .ROUTE ; Start 04/22/21 at 09:58; Stop 04/22/21 at 09:58; Status DC Lidocaine HCl (Lidocaine 1% 20ml Vial) 20 ml STK-MED ONCE .ROUTE ; Start 04/22/21 at 09:58; Stop 04/22/21 at 09:58; Status DC Heparin Sodium/ Sodium Chloride 1,000 ml @ As Directed STK-MED ONCE .ROUTE ; Start 04/22/21 at 09:58; Stop 04/22/21 at 09:58; Status DC Fentanyl Citrate (Fentanyl 2ml Vial) 100 mcg STK-MED ONCE .ROUTE ; Start 04/22/21 at 10:37; Stop 04/22/21 at 10:37; Status DC Midazolam HCl (Versed) 2 mg STK-MED ONCE .ROUTE ; Start 04/22/21 at 10:37; Stop 04/22/21 at 10:37; Status DC Heparin Sodium/ Sodium Chloride (HEPARIN for ARTERIAL LINE FLUSH) 1,000 unit 1X ONCE IART Last administered on 04/22/21at 11:00; Start 04/22/21 at 11:00; Stop 04/22/21 at 11:02; Status DC Midazolam HCl (Versed) 2 mg 1X ONCE IV Last administered on 04/22/21at 11:23; Start 04/22/21 at 11:00; Stop 04/22/21 at 11:02; Status DC Fentanyl Citrate (Fentanyl 2ml Vial) 100 mcg 1X ONCE IV Last administered on 04/22/21at 11:23; Start 04/22/21 at 11:00; Stop 04/22/21 at 11:02; Status DC Iodixanol (Visipaque 320) 100 ml 1X ONCE IART Last administered on 04/22/21at 1 1:35; Start 04/22/21 at 11:00; Stop 04/22/21 at 11:02; Status DC Lidocaine HCl (Lidocaine 1% 20ml Vial) 20 ml 1X ONCE INJ Last administered on 04/22/21at 10:48; Start 04/22/21 at 11:00; Stop 04/22/21 at 11:02; Status DC Active Scripts Active Reported Tums (Calcium Carbonate) 200 Mg Tab.chew 400 Mg PO HS Sensipar (Cinacalcet Hcl) 60 Mg Tablet 1 Tab PO DAILY 30 Days Ferric Citrate 210 Mg Tablet 2 Tab PO TID 30 Days Lasix (Furosemide) 40 Mg Tablet 40 Mg PO BID Renagel (Sevelamer Hcl) 800 Mg Tablet 2 Tab PO TIDWMEALS Kapspargo Sprinkle (Metoprolol Succinate) 50 Mg Cap.spr.24 50 Mg PO DAILY Vital Signs Vital Signs Date Time Temp Pulse Resp B/P (MAP) Pulse Ox O2 Delivery O2 Flow Rate FiO2 04/22/21 16:57 16 Nasal Cannula 2.0 04/22/21 16:27 100 04/22/21 15:00 95 119/67 (84) 04/22/21 14:00 98.0 98.0 Labs Laboratory Tests Test 04/21/21 05:30 04/22/21 05:20 White Blood Count 12.0 x10^3/uL (4.0-11.0) 9.0 x10^3/uL (4.0-11.0) Red Blood Count 3.22 x10^6/uL (4.30-5.70) 3.02 x10^6/uL (4.30-5.70) Hemoglobin 10.2 g/dL (13.0-17.5) 9.6 g/dL (13.0-17.5) Hematocrit 31.0 % (39.0-53.0) 29.1 % (39.0-53.0) Mean Corpuscular Volume 96 fL (79-100) 96 fL (79-100) Mean Corpuscular Hemoglobin 32 pg (25-35) 32 pg (25-35) Mean Corpuscular Hemoglobin Concent 33 g/dL (31-37) 33 g/dL (31-37) Red Cell Distribution Width 16.0 % (11.5-14.5) 16.1 % (11.5-14.5) Platelet Count 209 x10^3/uL (140-400) 212 x10^3/uL (140-400) Neutrophils (%) (Auto) 77 % (31-73) 63 % (31-73) Lymphocytes (%) (Auto) 6 % (24-48) 13 % (24-48) Monocytes (%) (Auto) 12 % (0-9) 13 % (0-9) Eosinophils (%) (Auto) 4 % (0-3) 10 % (0-3) Basophils (%) (Auto) 1 % (0-3) 1 % (0-3) Neutrophils # (Auto) 9.3 x10^3/uL (1.8-7.7) 5.6 x10^3/uL (1.8-7.7) Lymphocytes # (Auto) 0.8 x10^3/uL (1.0-4.8) 1.2 x10^3/uL (1.0-4.8) Monocytes # (Auto) 1.4 x10^3/uL (0.0-1.1) 1.1 x10^3/uL (0.0-1.1) Eosinophils # (Auto) 0.5 x10^3/uL (0.0-0.7) 0.9 x10^3/uL (0.0-0.7) Basophils # (Auto) 0.1 x10^3/uL (0.0-0.2) 0.1 x10^3/uL (0.0-0.2) Sodium Level 131 mmol/L (136-145) 131 mmol/L (136-145) Potassium Level 4.4 mmol/L (3.5-5.1) 4.6 mmol/L (3.5-5.1) Chloride Level 92 mmol/L (98-107) 93 mmol/L (98-107) Carbon Dioxide Level 30 mmol/L (21-32) 27 mmol/L (21-32) Anion Gap 9 (6-14) 11 (6-14) Blood Urea Nitrogen 49 mg/dL (8-26) 75 mg/dL (8-26) Creatinine 6.4 mg/dL (0.7-1.3) 8.2 mg/dL (0.7-1.3) Estimated GFR (Cockcroft-Gault) 9.1 6.8 BUN/Creatinine Ratio 8 (6-20) 9 (6-20) Glucose Level 104 mg/dL (70-99) 103 mg/dL (70-99) Calcium Level 8.7 mg/dL (8.5-10.1) 8.7 mg/dL (8.5-10.1) Magnesium Level 2.0 mg/dL (1.8-2.4) Total Bilirubin 0.7 mg/dL (0.2-1.0) 0.5 mg/dL (0.2-1.0) Aspartate Amino Transf (AST/SGOT) 25 U/L (15-37) 23 U/L (15-37) Alanine Aminotransferase (ALT/SGPT) 35 U/L (16-63) 32 U/L (16-63) Alkaline Phosphatase 162 U/L (46-116) 166 U/L (46-116) Total Protein 7.4 g/dL (6.4-8.2) 7.2 g/dL (6.4-8.2) Albumin 2.5 g/dL (3.4-5.0) 2.4 g/dL (3.4-5.0) Albumin/Globulin Ratio 0.5 (1.0-1.7) 0.5 (1.0-1.7) Laboratory Tests Test 04/22/21 05:20 White Blood Count 9.0 x10^3/uL (4.0-11.0) Red Blood Count 3.02 x10^6/uL (4.30-5.70) Hemoglobin 9.6 g/dL (13.0-17.5) Hematocrit 29.1 % (39.0-53.0) Mean Corpuscular Volume 96 fL (79-100) Mean Corpuscular Hemoglobin 32 pg (25-35) Mean Corpuscular Hemoglobin Concent 33 g/dL (31-37) Red Cell Distribution Width 16.1 % (11.5-14.5) Platelet Count 212 x10^3/uL (140-400) Neutrophils (%) (Auto) 63 % (31-73) Lymphocytes (%) (Auto) 13 % (24-48) Monocytes (%) (Auto) 13 % (0-9) Eosinophils (%) (Auto) 10 % (0-3) Basophils (%) (Auto) 1 % (0-3) Neutrophils # (Auto) 5.6 x10^3/uL (1.8-7.7) Lymphocytes # (Auto) 1.2 x10^3/uL (1.0-4.8) Monocytes # (Auto) 1.1 x10^3/uL (0.0-1.1) Eosinophils # (Auto) 0.9 x10^3/uL (0.0-0.7) Basophils # (Auto) 0.1 x10^3/uL (0.0-0.2) Sodium Level 131 mmol/L (136-145) Potassium Level 4.6 mmol/L (3.5-5.1) Chloride Level 93 mmol/L (98-107) Carbon Dioxide Level 27 mmol/L (21-32) Anion Gap 11 (6-14) Blood Urea Nitrogen 75 mg/dL (8-26) Creatinine 8.2 mg/dL (0.7-1.3) Estimated GFR (Cockcroft-Gault) 6.8 BUN/Creatinine Ratio 9 (6-20) Glucose Level 103 mg/dL (70-99) Calcium Level 8.7 mg/dL (8.5-10.1) Total Bilirubin 0.5 mg/dL (0.2-1.0) Aspartate Amino Transf (AST/SGOT) 23 U/L (15-37) Alanine Aminotransferase (ALT/SGPT) 32 U/L (16-63) Alkaline Phosphatase 166 U/L (46-116) Total Protein 7.2 g/dL (6.4-8.2) Albumin 2.4 g/dL (3.4-5.0) Albumin/Globulin Ratio 0.5 (1.0-1.7) Allergies Allergies Coded Allergies Type Severity Reaction Last Updated Verified No Known Drug Allergies 02/17/21 No Disposition/Orders: Other (transfer to [facility] by [facility]) Justicifation of Admission Dx: Justifications for Admission: Justification of Admission Dx: N/A ORQUIDEA GAMINO MD Apr 22, 2021 17:44
--- NOTE | 2021-04-22 18:42 | NUR ---
Discharge Note: [facility]EL[facility] Discharge instructions and discharge home medications reviewed with Other facility and a copy given. All questions have been answered and understanding verbalized. The following instructions and handouts were given: med rec, pt history faxed to [facility] Discontinued lines and drains: pt discharged with right IJ sheat with transvenous pacemaker and 20g left forearm PIV intact. Patient discharged to [facility] via [facility]
== END 2021-04-22 18:25 | disposition short-term general hospital (02) | DRG 871 ==
LOC: ER 23:03 → ED HOLD 04-19 00:01 → 1 WEST ICU 04-19 07:02
PROVIDERS: ADMIT Internal Medicine; ATTEND Internal Medicine
PROC: 5A09357 Assistance with Respiratory Ventilation, Less than 24 Consecutive Hours, Continuous Positive Airway Pressure (ICD-10-PCS; 2021-04-19)
PROC: 5A1223Z Performance of Cardiac Pacing, Continuous (ICD-10-PCS; 2021-04-19)
PROC: 03HY32Z Insertion of Monitoring Device into Upper Artery, Percutaneous Approach (ICD-10-PCS; 2021-04-19)
PROC: 5A1D70Z Performance of Urinary Filtration, Intermittent, Less than 6 Hours Per Day (ICD-10-PCS; 2021-04-19)
PROC: 5A1D70Z Performance of Urinary Filtration, Intermittent, Less than 6 Hours Per Day (ICD-10-PCS; 2021-04-20)
PROC: 5A09357 Assistance with Respiratory Ventilation, Less than 24 Consecutive Hours, Continuous Positive Airway Pressure (ICD-10-PCS; principal; 2021-04-22)
PROC: 4A023N6 Measurement of Cardiac Sampling and Pressure, Right Heart, Percutaneous Approach (ICD-10-PCS; 2021-04-22)
PROC: B2111ZZ Fluoroscopy of Multiple Coronary Arteries using Low Osmolar Contrast (ICD-10-PCS; 2021-04-22)
PROC: 5A1223Z Performance of Cardiac Pacing, Continuous (ICD-10-PCS; 2021-04-22)
PROC: 5A1D70Z Performance of Urinary Filtration, Intermittent, Less than 6 Hours Per Day (ICD-10-PCS; 2021-04-22)
DX: A41.9 Sepsis, unspecified organism (principal); G92 Toxic encephalopathy; I50.33 Acute on chronic diastolic (congestive) heart failure; J18.9 Pneumonia, unspecified organism; N18.6 End stage renal disease; J96.01 Acute respiratory failure with hypoxia; I21.A1 Myocardial infarction type 2; E44.0 Moderate protein-calorie malnutrition; E87.1 Hypo-osmolality and hyponatremia; I13.2 Hypertensive heart and chronic kidney disease with heart failure and with stage 5 chronic kidney disease, or end stage renal disease; I44.2 Atrioventricular block, complete; J44.0 Chronic obstructive pulmonary disease with (acute) lower respiratory infection; J44.1 Chronic obstructive pulmonary disease with (acute) exacerbation; K56.609 Unspecified intestinal obstruction, unspecified as to partial versus complete obstruction; N39.0 Urinary tract infection, site not specified; D63.1 Anemia in chronic kidney disease; E20.9 Hypoparathyroidism, unspecified; E87.5 Hyperkalemia; I27.29 Other secondary pulmonary hypertension; I35.0 Nonrheumatic aortic (valve) stenosis; I49.8 Other specified cardiac arrhythmias; N40.0 Benign prostatic hyperplasia without lower urinary tract symptoms; Z20.822 Contact with and (suspected) exposure to COVID-19; Z79.899 Other long term (current) drug therapy; Z82.49 Family history of ischemic heart disease and other diseases of the circulatory system; Z87.891 Personal history of nicotine dependence; Z91.15 Patient's noncompliance with renal dialysis; Z99.2 Dependence on renal dialysis
CPT/HCPCS: 33210; 36415; 36600; 71045; 76937; 80048; 80053; 80061; 80069; 82553; 82805; 83605; 83735; 83880; 84100; 84443; 84484; 85007; 85025; 85610; 85730; 86706; 87040; 87340; 87426; 93005; 93306; 93456; 94660; 94760; 96365; 96366; 96375; 99152; 99153; C1773; C1894; J0171; J0461; J1265; J1644; J2060; J2250; J2405; J2543; J3010; J3490; J7040; J7060; P9041; P9046; Q9967; U0003; U0005; 99291-25; G0378

== ENCOUNTER 2021-08-03 10:57 | Inpatient (IN) | payer MEDICAID ==
[2021-08-03] VITALS (33 sets, daily range): BP systolic 64–95; BP diastolic 40–59
[~2021-08-03] VITALS: Ht 165.1 cm; Wt 76.5 kg
[~2021-08-03 10:57] MED LIST changes: +CALC200T3 PO; +CINA60TA PO; +FURO-68 PO
[2021-08-03] MEDS ORDERED: IOHEXOL 300 MG/ML 100ML VIAL. IV ONE (11:15)
[2021-08-03] MEDS ORDERED: CONTRAST GIVEN. MC PRN (11:15)
[2021-08-03] MEDS ORDERED: IV NORMAL SALINE 1000ML BAG 1,000 ML IV ONE (11:15)
[2021-08-03] MEDS ORDERED: PIPERACILLIN/TAZOBACTAM 4.5 GM in IV NORMAL SALINE 100ML 100 ML IV ONE (11:15)
--- NOTE | 2021-08-03 11:18 | PHYS DOC ---
Past Medical History Past Medical History: CHF, COPD, Hypertension, Pneumonia, Renal Failure, Other Additional Past Medical Histor: INCONTINENCE,PERITONITIS,PERITONEAL HOME DIALYSIS Past Surgical History: Other Additional Past Surgical Histo: Dialysis cath right chest,LEFT KIDNEY TUCKER NT,SUPRAPUBIC CATH Smoking Status: Former Smoker Alcohol Use: None Drug Use: None General Adult EDM: Chief Complaint: NEURO SYMPTOMS/DEFICITS HPI: HPI: Patient is a 56 year old male with history of ESRD on Monday, , Monday dialysis, suprapubic catheter who presents with stroke symptoms. Was reportedly last known well at 9 AM. Was found at 10:15 AM in his car initially unresponsive. On EMS arrival was able to respond using yes/no answers only. He had dense left-sided deficits with facial droop and left arm, leg weakness. Prehospital glucose was 114. Patient states "no" when asked about blood thinners. Review of Systems: Review of Systems: Unable to obtain full ROS secondary to altered mental status Heart Score: C/O Chest Pain: N/A Current Medications: Current Medications Medications (Trade) Dose Ordered Sig/Kevin Start Time Stop Time Status Last Admin Dose Admin Info (CONTRAST GIVEN -- Rx MONITORING) 1 each PRN DAILY PRN 08/03/21 11:15 08/05/21 11:14 Iohexol (Omnipaque 300 Mg/ml) 75 ml 1X ONCE 08/03/21 11:15 08/03/21 11:16 DC Piperacillin Sod/ Tazobactam Sod 4.5 gm/Sodium Chloride 100 ml @ 200 mls/hr 1X ONCE 08/03/21 11:15 08/03/21 11:44 Sodium Chloride 1,000 ml @ 1,000 mls/hr 1X ONCE 08/03/21 11:15 08/03/21 12:14 Vancomycin HCl 1.5 gm/Sodium Chloride 500 ml @ 250 mls/hr 1X ONCE 08/03/21 11:15 08/03/21 13:14 UNV Allergies: Allergies: Allergies Coded Allergies Type Severity Reaction Last Updated Verified No Known Drug Allergies 02/17/21 No Physical Exam: PE: Constitutional: Diaphoretic, warm to the touch, toxic appearing HENT: Small amount of blood dried around the lips, on later exam has bright blood dripping from mouth. not clearing secretions. Eyes: Pupils equal, round, reactive. EOMI. Neck: Normal range of motion, no tenderness, supple, no stridor. [] Cardiovascular: Tachycardic and regular Lungs & Thorax: Crackles bilaterally, tachypnea noted. Abdomen: Bowel sounds normal, soft, no tenderness, no masses, no pulsatile masses. Suprapubic catheter in place draining dark brown/cloudy urine. [] Skin: Warm, dry, no erythema, no rash. [] Neurologic: Somnolent, arouses slightly to voice. Gargling, not protecting airway. Left-sided facial droop obvious. EOMI. Blinks to threat. Follows simple commands. Answers questions yes/no with dysarthric speech. Aphasic. Left-sided upper and lower extremity drift quickly hits the bed. Recognizes own hand, but does seem to have diminished sensation on the left side. NIH = 15 Current Patient Data: Labs: Laboratory Tests Test 08/03/21 10:59 Glucose (Fingerstick) 113 mg/dL (70-99) H EKG: EKG: Sinus tachycardia. Rate 146. Mild ST depression in aVL, <1mm ST elevation in lead III. No contiguous ST elevation. [] Radiology/Procedures: Radiology/Procedures: Indication: Inability to protect airway Consent: Unable to give consent due to emergent nature. Medications Used: see nursing note Procedure: The patient was placed in the appropriate position. Upper dentures were removed and placed with personal belongings. Intubation was performed with glide scope S4 blade. 8.0 ETT endotracheal tube visualized through the cords with good view. Secured at 24 cm at the gumline. Initial confirmation of placement included bilateral breath sounds, tube fogging, adequate chest rise, adequate pulse oximetry reading. A chest x-ray to verify correct placement of the tube showed appropriate tube position. The patient tolerated the procedure well. Complications: Oxygenation dropped to 87%, but quickly returned to 100% after bagging. Impression: [facility] [address] [place] [address] IMAGING REPORT Signed PATIENT: FELICE GROVE ACCOUNT: [id number] : 1965 LOCATION: ER AGE: 56 SEX: M EXAM STATUS: PRE ER ORD. PHYSICIAN: TODD MORALES MD REASON: left sided weakness ED [phone] PROCEDURE: CT CODE STROKE HEAD WO EXAM: Head CT without contrast. HISTORY: Code stroke. Left-sided weakness. TECHNIQUE: Computed tomographic images of the head were obtained without contrast. *One or more of the following individualized dose reduction techniques were utilized for this examination: 1. Automated exposure control. 2. Adjustment of the mA and/or kV according to patient size. 3. Use of iterative reconstruction technique. COMPARISON: None. FINDINGS: There is no acute or subacute extra-axial or intraparenchymal hemorrhage. There is no mass effect or midline shift. There is no hydrocephalus. There are areas of decreased attenuation within the cerebral white matter, nonspecific and likely related to chronic small vessel disease. There are small nonspecific calcifications within the bilateral sylvian fissures. There is maxillary sinus and right ethmoid sinus mucosal thickening. There are small maxillary sinus mucous retention cysts. The orbits and mastoid air cells are unremarkable. There is no suspicious calvarial lesion. IMPRESSION: 1. No acute intracranial finding. Note is made that MRI is more sensitive for acute infarction. 2. Bilateral cerebral white matter changes, likely due to chronic small vessel disease. Findings were discussed with Clarice in the ED at 1130 hours on 08/03/2021. FOR INTERNAL CODING PURPOSES RESULT CODE: (C) Electronically signed by: Portia Conway MD (08/03/2021 11:28 AM) [id number] DICTATED and SIGNED BY: PORTIA CONWAY MD DATE: 08/03/21 [id number] [facility] [address] [place] [address] IMAGING REPORT Signed PATIENT: FELICE GROVE ACCOUNT: [id number] : 1965 LOCATION: ER AGE: 56 SEX: M EXAM STATUS: REG ER ORD. PHYSICIAN: TODD MORALES MD REASON: left sided weakness PROCEDURE: CTA HEAD/NECK - CODE STROKE EXAM: CT angiography of the head and neck with intravenous contrast. HISTORY: Stroke. TECHNIQUE: Computed tomographic images of the head and neck were obtained following the administration of intravenous contrast according to angiography protocol. Multiplanar reformatting was performed and three dimensional maximum intensity projection images were obtained. *One or more of the following individualized dose reduction techniques were utilized for this examination: 1. Automated exposure control. 2. Adjustment of the mA and/or kV according to patient size. 3. Use of iterative reconstruction technique. COMPARISON: Noncontrast head CT obtained on the same date. FINDINGS: Evaluation of the upper thorax demonstrates calcified atherosclerotic plaque involving the aortic arch and proximal left subclavian artery. There is also calcified atherosclerotic plaque at the origin of the right subclavian artery. There is no hemodynamically significant stenosis involving the arch vessel origins. There are prominent mediastinal lymph nodes. There is a 7 mm groundglass nodular opacity within the left lung apex. There are few additional peripheral groundglass opacities which are likely due to atelectasis or scarring. There are prominent collateral vessels within the right greater than left anterior chest wall. There is partially calcified atherosclerotic plaque involving the carotid bulbs and proximal internal carotid arteries. This results in less than 50 percent stenosis. There is also focal calcified plaque within the right internal carotid artery at the level of C1, resulting in approximately 50-69 percent stenosis. There is minimal atherosclerotic plaque throughout the remainder of the internal carotid arteries. No hemodynamically significant stenosis or occlusion is seen involving the cerebral arteries. There are is a dominant left vertebral artery. The distal right vertebral artery is hypoplastic. The vertebral arteries are widely patent. There is paranasal sinus mucosal thickening with small maxillary sinus mucous retention cyst. The mastoid air cells are clear. There is no neck lymphadenopathy. There are degenerative changes throughout the spine. There is cervical kyphosis centered at C5. There is multilevel cervical listhesis. The combination of degenerative changes results in mild right foraminal stenosis at C2-C3, mild bilateral foraminal stenosis at C3-C4, mild right foraminal stenosis at C4-C5, mild to moderate left foraminal and mild central canal stenosis at C5-C6, and moderate left and mild right foraminal and mild central canal stenosis at C6-C7. IMPRESSION: 1. Moderate partially calcified atherosclerotic plaque involving the carotid b ulbs and proximal internal carotid arteries, with less than 50 percent stenosis. There is also focal calcified plaque within the distal right vertebral artery at the level of C1 resulting in 50-69 percent stenosis. There is no additional significant stenosis or evidence of large vessel occlusion. 2. Bilateral cerebral white matter changes, likely due to chronic small vessel disease in a patient of this age. Note is made that MRI is more sensitive for acute infarction. 3. Degenerative change involving the cervical spine, resulting in stenosis at the aforementioned levels. 4. 7 mm groundglass nodular opacity within the left lung apex. Follow-up can be performed in 6-12 months. The superimposed on upper lobe predominant atelectasis and pleural parenchymal scarring. 5. Prominent the central lymph nodes, likely reactive in etiology. Findings were discussed with Dr. Morales in the ED at 1145 hours on 08/03/2021. [facility] [place] Compliance Statement - Stenosis calculations for CT, MR and conventional angiography are based upon measurement of the distal ICA diameter in accordance with the NASCET methodology. Stenosis calculations for carotid ultrasound studies are derived from validated velocity criteria which are known to correlate with the NASCET methodology. Electronically signed by: Portia Conway MD (08/03/2021 11:46 AM) [id number] DICTATED and SIGNED BY: PORTIA CONWAY MD DATE: 08/03/21 [id number] [place] [id number] [place], [place] [id number] IMAGING REPORT Signed PATIENT: FELICE GROVE ACCOUNT: [id number] : 1965 LOCATION: ER AGE: 56 SEX: M EXAM STATUS: REG ER ORD. PHYSICIAN: TODD MORALES MD REASON: SEPSIS, HYPOXIA PROCEDURE: CHEST AP ONLY EXAM: Chest, single view. HISTORY: Sepsis. Hypoxia. COMPARISON: 04/21/2021 FINDINGS: A frontal view of the chest is obtained. There is slight decreased diffuse interstitial infiltrate. There is no consolidation, pleural effusion or pneumothorax. The heart is normal in size. There is a cardiac event monitor overlying the left thorax. There is an incidental healed right clavicle fracture. IMPRESSION: Slight decreased diffuse interstitial infiltrate. Electronically signed by: Portia Conway MD (08/03/2021 11:47 AM) [id number] DICTATED and SIGNED BY: PORTIA CONWAY MD DATE: 08/03/21 [id number] [facility] [address] [place] [address] IMAGING REPORT Signed PATIENT: FELICE GROVE ACCOUNT: [id number] : 1965 LOCATION: ER AGE: 56 SEX: M EXAM STATUS: REG ER ORD. PHYSICIAN: TODD MORALES MD REASON: ETT PROCEDURE: CHEST AP ONLY EXAM: Chest, single view. HISTORY: Intubation. COMPARISON: 08/03/2021. FINDINGS: A frontal view of the chest is obtained. There is an endotracheal tube within the distal trachea. The tip is approximately 2.4 cm from the rich. There is nasogastric tube within the proximal stomach, with the side-port likely within the distal esophagus. There is stable diffuse increased interstitial opacity. There is no consolidation, pleural effusion or pneumothorax. There is a stable cardiac silhouette. IMPRESSION: 1. Endotracheal tube within the distal trachea and nasogastric tube within the proximal stomach. The nasogastric tube side-port is likely within the distal esophagus. 2. Stable diffuse interstitial infiltrate likely superimposed on chronic interstitial changes. Electronically signed by: Portia Conway MD (08/03/2021 12:55 PM) [id number] DICTATED and SIGNED BY: PORTIA CONWAY MD DATE: 08/03/21 [id number] 0 Course & Med Decision Making: Course & Med Decision Making Pertinent Labs and Imaging studies reviewed. (See chart for details) Patient 56-year-old male with history of ESRD on dialysis, and with a suprapubic catheter who presents with concerns for both stroke and sepsis. On arrival is febrile to 101.9 F, tachycardic to 145, and borderline hypotensive 97/50. Satting in the low 80s on room air. He is toxic appearing. IV fluids were started. Did not pursue 30 cc/kg due to ESRD. Broadly covered with vancomycin and Zosyn. Most likely source of sepsis is urinary tract. Rapid Covid is negative. Code stroke was initiated. NIH initially 15. Was in tPA window. CT head negative. CTA without large vessel occlusion. Patient's mental status worsened and he was unable to protect his airway, he did have increasing blood in his mouth. He was intubated as above for airway protection. Due to the bleeding a joint discussion with neurology, Dr. Molina, was had and we deferred tPA. Patient was admitted to ICU level care under Dr. Mace for further management. Sofia Disclaimer: Sofia Disclaimer: This electronic medical record was generated, in whole or in part, using a voice recognition dictation system. Departure Departure Impression: Primary Impression: Stroke Additional Impressions: Sepsis UTI (urinary tract infection) Respiratory failure Disposition: ADMITTED INPATIENT Admitting Physician: MARTHA Fink) Condition: CRITICAL Referrals: PORTIA GRIER MD (PCP) NIHSS Stroke Scale NIH Stroke Scale: NIH Stroke Scale Response (Comments) Value Level of Consciousness: 1 Not alert/arousable 1 LOC Questions: 2 Answers neither correct 2 LOC Commands: 0 Performs both tasks 0 Best Gaze: 0 Normal 0 Visual: 0 No visual loss 0 Facial Palsy: 2 Partial paralysis 2 Motor - Left Arm 2 Some effort 2 Motor - Right Arm 0 No drift 0 Motor - Left Leg 2 Some effort 2 Motor: Right Leg 0 No drift 0 Limb Ataxia: 0 Absent 0 Sensory: 1 Mid to moderate loss 1 Best Language: 2 Severe aphasia 2 Dysathria: 2 Severe 2 Extinction and Inattention: 1 One sensory modality 1 Total 15 Critical Care Time Critical care time was 45 minutes exclusive of procedures. TODD MORALES MD Aug 03, 2021 11:18
--- NOTE | 2021-08-03 11:31 | RAD ---
EXAM: Head CT without contrast. HISTORY: Code stroke. Left-sided weakness. TECHNIQUE: Computed tomographic images of the head were obtained without contrast. *One or more of the following individualized dose reduction techniques were utilized for this examina tion: 1. Automated exposure control. 2. Adjustment of the mA and/or kV according to patient size. 3. Use of iterative reconstruction technique. COMPARISON: None. FINDINGS: There is no acute or subacute extra-axial or intraparenchymal hemorrhage. There is no mass effect or midline shift. There is no hydrocephalus. There are areas of decreased attenuation within the cerebral white matter, nonspecific and likely rel ated to chronic small vessel disease. There are small nonspecific calcifications within the bilateral sylvian fissures. There is maxillary sinus and right ethmoid sinus mucosal thickening. There are small maxillary sinus mucous retention cysts. The orbits and mastoid air cells are unremarkable. There is no suspicious herman varial lesion. IMPRESSION: 1. No acute intracranial finding. Note is made that MRI is more sensitive for acute infarction. 2. Bilateral cerebral white matter changes, likely due to chronic small vessel disease. Findings were discussed with Clarice in the ED at 1130 hours on 08/03/2021. FOR INTERNAL CODING PURPOSES RESULT CODE: (C) Electronically signed by: Portia Hitchcock MD (08/03/2021 11:28 AM) [id number]
[2021-08-03 11:42] LABS: CALCIUM 8.6 mg/dL (8.5-10.1); CREATININE 5.1 mg/dL (0.7-1.3); GFR 11.8; POTASSIUM 3.5 mmol/L (3.5-5.1)
[2021-08-03 11:46] LABS: BASO % 0 % (0-3); EOS % 1 % (0-3); HEMATOCRIT 37.1 % (39.0-53.0); HEMOGLOBIN 12.3 g/dL (13.0-17.5); LYMPH # 0.1 x10^3/uL (1.0-4.8); LYMPH % 3 % (24-48); MEAN CORPUSCULAR HEMOGLOBIN 32 pg (25-35); MEAN CORPUSCULAR HGB CONC 33 g/dL (31-37); MEAN CORPUSCULAR VOLUME 96 fL (79-100); MONO % 1 % (0-9); NEUT # 3.9 x10^3/uL (1.8-7.7); NEUT % 95 % (31-73); PLATELET COUNT 190 x10^3/uL (140-400); RED BLOOD COUNT 3.89 x10^6/uL (4.30-5.70); RED CELL DISTRIBUTION WIDTH 16.2 % (11.5-14.5); WHITE BLOOD COUNT 4.1 x10^3/uL (4.0-11.0)
[2021-08-03 11:48] LABS: BILIRUBIN,URINE NEGATIVE (NEG); CLARITY,URINE TURBID; COLOR,URINE RED; NITRITE,URINE NEGATIVE (NEG); PROTEIN,URINE >=300 mg/dL (NEG-TRACE); UROBILINOGEN,URINE 0.2 mg/dL (0.2 mg/dL)
--- NOTE | 2021-08-03 11:49 | RAD ---
EXAM: CT angiography of the head and neck with intravenous contrast. HISTORY: Stroke. TECHNIQUE: Computed tomographic images of the head and neck were obtained following the administratio n of intravenous contrast according to angiography protocol. Multiplanar reformatting was performed a nd three dimensional maximum intensity projection images were obtained. *One or more of the following individualized dose reduction techniques were utilized for this examina tion: 1. Automated exposure control. 2. Adjustment of the mA and/or kV according to patient size. 3. Use of iterative reconstruction technique. COMPARISON: Noncontrast head CT obtained on the same date. FINDINGS: Evaluation of the upper thorax demonstrates calcified atherosclerotic plaque involving the aortic arch and proximal left subclavian artery. There is also calcified atherosclerotic plaque at th e origin of the right subclavian artery. There is no hemodynamically significant stenosis involving t he arch vessel origins. There are prominent mediastinal lymph nodes. There is a 7 mm groundglass nodu lar opacity within the left lung apex. There are few additional peripheral groundglass opacities whic h are likely due to atelectasis or scarring. There are prominent collateral vessels within the right greater than left anterior chest wall. There is partially calcified atherosclerotic plaque involving the carotid bulbs and proximal internal carotid arteries. This results in less than 50 percent stenosis. There is also focal calcified plaqu e within the right internal carotid artery at the level of C1, resulting in approximately 50-69 perce nt stenosis. There is minimal atherosclerotic plaque throughout the remainder of the internal carotid arteries. No hemodynamically significant stenosis or occlusion is seen involving the cerebral arteri es. There are is a dominant left vertebral artery. The distal right vertebral artery is hypoplastic. The vertebral arteries are widely patent. There is paranasal sinus mucosal thickening with small maxillary sinus mucous retention cyst. The mas toid air cells are clear. There is no neck lymphadenopathy. There are degenerative changes throughout the spine. There is cervical kyphosis centered at C5. There is multilevel cervical listhesis. The co mbination of degenerative changes results in mild right foraminal stenosis at C2-C3, mild bilateral f oraminal stenosis at C3-C4, mild right foraminal stenosis at C4-C5, mild to moderate left foraminal a nd mild central canal stenosis at C5-C6, and moderate left and mild right foraminal and mild central canal stenosis at C6-C7. IMPRESSION: 1. Moderate partially calcified atherosclerotic plaque involving the carotid bulbs and proximal inter nal carotid arteries, with less than 50 percent stenosis. There is also focal calcified plaque within the distal right vertebral artery at the level of C1 resulting in 50-69 percent stenosis. There is n o additional significant stenosis or evidence of large vessel occlusion. 2. Bilateral cerebral white matter changes, likely due to chronic small vessel disease in a patient o f this age. Note is made that MRI is more sensitive for acute infarction. 3. Degenerative change involving the cervical spine, resulting in stenosis at the aforementioned leve ls. 4. 7 mm groundglass nodular opacity within the left lung apex. Follow-up can be performed in 6-12 mon ths. The superimposed on upper lobe predominant atelectasis and pleural parenchymal scarring. 5. Prominent the central lymph nodes, likely reactive in etiology. Findings were discussed with Dr. Merritt in the ED at 1145 hours on 08/03/2021. [facility] Compliance Statement - Stenosis calculations for CT, MR and conventional angiography are based u allison measurement of the distal ICA diameter in accordance with the NASCET methodology. Stenosis calcu lations for carotid ultrasound studies are derived from validated velocity criteria which are known t o correlate with the NASCET methodology. Electronically signed by: Portia Hitchcock MD (08/03/2021 11:46 AM) [id number]
--- NOTE | 2021-08-03 11:50 | RAD ---
EXAM: Chest, single view. HISTORY: Sepsis. Hypoxia. COMPARISON: 04/21/2021 FINDINGS: A frontal view of the chest is obtained. There is slight decreased diffuse interstitial inf iltrate. There is no consolidation, pleural effusion or pneumothorax. The heart is normal in size. Th ere is a cardiac event monitor overlying the left thorax. There is an incidental healed right clavicl e fracture. IMPRESSION: Slight decreased diffuse interstitial infiltrate. Electronically signed by: Portia Hitchcock MD (08/03/2021 11:47 AM) [id number]
[2021-08-03 11:54] LABS: ALBUMIN 3.2 g/dL (3.4-5.0); ALBUMIN/GLOBULIN RATIO 0.6 (1.0-1.7); TOTAL BILIRUBIN 0.6 mg/dL (0.2-1.0); TOTAL PROTEIN 8.8 g/dL (6.4-8.2)
[2021-08-03 11:55] LABS: PROTHROMBIN TIME PATIENT 14.3 SEC (11.7-14.0)
[2021-08-03 11:57] LABS: BACTERIA,URINE MANY /HPF (0-FEW); RBC,URINE >40 /HPF (0-2); WBC,URINE TNTC /HPF (0-4)
[2021-08-03] MEDS ORDERED: VANCOMYCIN 1.5 GM in IV NORMAL SALINE 500ML BAG 500 ML IV ONE (12:00)
[2021-08-03] MEDS ORDERED: DEXMEDETOMIDINE 400 MCG in IV NORMAL SALINE 100ML 96 ML IV PRN (12:15)
[2021-08-03] MEDS ORDERED: PROPOFOL 100 ML IV PRN ×2 (12:15→15:00)
[2021-08-03] MEDS ORDERED: POLYVINYL ALCOHOL 1.4% OPHTH SOLUTION 15ML BOTTLE. OU PRN ×2 (12:15→15:00)
[2021-08-03] MEDS ORDERED: MIDAZOLAM HCL/PF 5 MG/5 ML VIAL. IVP PRN ×2 (12:15→15:00)
[2021-08-03] MEDS ORDERED: ETOMIDATE 20 MG/10 ML VIAL. IV ONE ×2 (12:45→17:04)
[2021-08-03] MEDS ORDERED: ROCURONIUM 100 MG/10 ML VIAL. IV ONE (12:45)
--- NOTE | 2021-08-03 12:53 | PDOC2 ---
NEUROLOGY CONSULT Date of Service DOS: DATE: 08/03/21 TIME: 12:44 Reason for Consult Reason for Consult: Stroke Referring Physician Referring Physician: Hospitalist Source Source: Caregiver (Mother), Chart review History of Present Illness History of Present Illness The patient is a 56-year-old right-handed male who did not feel well at dialysis, we think he left early. His mother found him in his car at the foot of the driveway unresponsive at 10:15. She called paramedics. They had trouble getting him out of the car. In the emergency department he was observed to have left hemiparesis. I discussed the case with Dr. Merritt and we wanted to go ahead with alteplase, but then the patient developed hypotension, respiratory failure requiring intubation, and had bleeding in the mouth. After consideration of these new issues, especially the possibility that all of the symptoms are related to sepsis and hypotension, we decided that the risks outweighed the benefits of alteplase. Patient has not had any prior history of stroke, seizure, or head injury. Mother says that his blood pressure has been running low for several weeks and they have held his antihypertensives. He always is worn out after dialysis and has to take a nap. He was recently in [facility] for bradycardia and received a pacemaker. Past Medical History Cardiovascular: CHF (Ischemic cardiomyopathy) GI: GI bleed Renal/: Chronic renal failure (Dialysis Monday) Endocrine: Hypothyroidism Past Surgical History Past Surgical History: Pacemaker, Hernia Repair (Inguinal with mesh), Other (Coiling for GI bleed in 2019, pericardial window, dialysis catheter placement, peritoneal dialysis catheter insertion and removal, suprapubic catheter) Family History Family History: CAD Social History Social History Single, lives with mother, former smoker, no recent alcohol use, disabled Current Medications Current Medications Current Medications Sodium Chloride 1,000 ml @ 1,000 mls/hr 1X ONCE IV Last administered on 08/03/21at 11:26; Start 08/03/21 at 11:15; Stop 08/03/21 at 12:14; Status DC Piperacillin Sod/ Tazobactam Sod 4.5 gm/Sodium Chloride 100 ml @ 200 mls/hr 1X ONCE IV Last administered on 08/03/21at 11:26; Start 08/03/21 at 11:15; Stop 08/03/21 at 11:44; Status DC Vancomycin HCl 1.5 gm/Sodium Chloride 500 ml @ 250 mls/hr 1X ONCE IV Last administered on 08/03/21at 12:00; Start 08/03/21 at 12:00; Stop 08/03/21 at 13:59 Iohexol (Omnipaque 300 Mg/ml) 75 ml 1X ONCE IV Last administered on 08/03/21at 11:29; Start 08/03/21 at 11:15; Stop 08/03/21 at 11:16; Status DC Info (CONTRAST GIVEN -- Rx MONITORING) 1 each PRN DAILY PRN MC SEE COMMENTS; Start 08/03/21 at 11:15; Stop 08/05/21 at 11:14 Fentanyl Citrate 30 ml @ 2.5 mls/hr CONT PRN IV SEE PROTOCOL; Start 08/03/21 at 12:15 Propofol 100 ml @ 2.235 mls/ hr CONT PRN IV PER PROTOCOL Last administered on 08/03/21at 12:31; Start 08/03/21 at 12:15 Chlorhexidine Gluconate (Peridex) 15 ml BID MM ; Start 08/03/21 at 21:00 Glycerin/ Hypromellose/ Polyethylene (Artificial Tears) 1 drop PRN Q1HR PRN OU DRY EYE; Start 08/03/21 at 12:15 Dexmedetomidine HCl 400 mcg/ Sodium Chloride 100 ml @ 3.725 mls/ hr CONT PRN IV PER PROTOCOL; Start 08/03/21 at 12:15 Midazolam HCl (Versed) 5 mg PRN 1X PRN IVP VENT INDUCTION; Start 08/03/21 at 12:15; Stop 08/04/21 at 12:14 Etomidate (Amidate) 10 mg 1X ONCE IV ; Start 08/03/21 at 12:45; Stop 08/03/21 at 12:46 Rocuronium [place] (Zemuron) 100 mg 1X ONCE IV ; Start 08/03/21 at 12:45; Stop 08/03/21 at 12:46 Active Scripts Active Reported Tums (Calcium Carbonate) 200 Mg Tab.chew 400 Mg PO HS Sensipar (Cinacalcet Hcl) 60 Mg Tablet 1 Tab PO DAILY 30 Days Ferric Citrate 210 Mg Tablet 2 Tab PO TID 30 Days Lasix (Furosemide) 40 Mg Tablet 40 Mg PO BID Renagel (Sevelamer Hcl) 800 Mg Tablet 2 Tab PO TIDWMEALS [place] Sprinkle (Metoprolol Succinate) 50 Mg Cap.spr.24 50 Mg PO DAILY Allergies Allergies: Coded Allergies: No Known Drug Allergies (Unverified , 02/17/21) ROS Review of System Negative for fever, chills, weight loss, shortness of breath, chest pain, indigestion, hematochezia, melena, and dysuria. Full 14-point review of systems is negative. Physical Exam Physical Examination General: Well-developed, well-nourished, white male HEENT: Normocephalic andatraumatic. Temporal arteriespulsatile and nontender. Neck: Supple without bruit, no meningismus Musculoskeletal: Stability:see neurologic. Gait exam:see neurologic. Tone:see neurologic.Strength:see neurologic. Neurological: Mental Status:Unresponsive. Cranial Nerves:Pupils equal and reactive to light, extraocular movements areintact. There is no facial asymmetry. Vestibulo-ocular reflex is intact. All other cranial related problems are negative except as mentioned before.Reflexes:2+ and symmetric with flexor plantar responses. Motor:I arrived in the emergency department just as patient was being intubated, he is moving his right side more than his left. Coordination:Not tested. Gait:Not tested. Sensory:Not cooperative. Vitals VITALS Vital Signs Date Time Temp Pulse Resp B/P (MAP) Pulse Ox O2 Delivery O2 Flow Rate FiO2 08/03/21 11:00 101.9 145 20 97/50 (66) 94 Nasal Cannula 4.0 101.9 Labs Labs Laboratory Tests Test 08/03/21 10:59 08/03/21 11:03 08/03/21 11:05 08/03/21 11:30 Glucose (Fingerstick) 113 mg/dL (70-99) White Blood Count 4.1 x10^3/uL (4.0-11.0) Red Blood Count 3.89 x10^6/uL (4.30-5.70) Hemoglobin 12.3 g/dL (13.0-17.5) Hematocrit 37.1 % (39.0-53.0) Mean Corpuscular Volume 96 fL (79-100) Mean Corpuscular Hemoglobin 32 pg (25-35) Mean Corpuscular Hemoglobin Concent 33 g/dL (31-37) Red Cell Distribution Width 16.2 % (11.5-14.5) Platelet Count 190 x10^3/uL (140-400) Neutrophils (%) (Auto) 95 % (31-73) Lymphocytes (%) (Auto) 3 % (24-48) Monocytes (%) (Auto) 1 % (0-9) Eosinophils (%) (Auto) 1 % (0-3) Basophils (%) (Auto) 0 % (0-3) Neutrophils # (Auto) 3.9 x10^3/uL (1.8-7.7) Lymphocytes # (Auto) 0.1 x10^3/uL (1.0-4.8) Monocytes # (Auto) 0.0 x10^3/uL (0.0-1.1) Eosinophils # (Auto) 0.0 x10^3/uL (0.0-0.7) Basophils # (Auto) 0.0 x10^3/uL (0.0-0.2) Prothrombin Time 14.3 SEC (11.7-14.0) Prothromb Time International Ratio 1.1 (0.8-1.1) Activated Partial Thromboplast Time 34 SEC (24-38) Sodium Level 134 mmol/L (136-145) Potassium Level 3.5 mmol/L (3.5-5.1) Chloride Level 94 mmol/L (98-107) Carbon Dioxide Level 28 mmol/L (21-32) Anion Gap 12 (6-14) Blood Urea Nitrogen 29 mg/dL (8-26) Creatinine 5.1 mg/dL (0.7-1.3) Estimated GFR (Cockcroft-Gault) 11.8 BUN/Creatinine Ratio 6 (6-20) Glucose Level 106 mg/dL (70-99) Lactic Acid Level 3.0 mmol/L (0.4-2.0) Calcium Level 8.6 mg/dL (8.5-10.1) Total Bilirubin 0.6 mg/dL (0.2-1.0) Aspartate Amino Transf (AST/SGOT) 89 U/L (15-37) Alanine Aminotransferase (ALT/SGPT) 133 U/L (16-63) Alkaline Phosphatase 268 U/L (46-116) Troponin I High Sensitivity 268 ng/L (4-75) Total Protein 8.8 g/dL (6.4-8.2) Albumin 3.2 g/dL (3.4-5.0) Albumin/Globulin Ratio 0.6 (1.0-1.7) SARS-CoV-2 Antigen (Rapid) Negative (NEGATIVE) Urine Collection Type Unknown Urine Color Red Urine Clarity Turbid Urine pH 8.0 (<5.0-8.0) Urine Specific [place] 1.015 (1.000-1.030) Urine Protein >=300 mg/dL (NEG-TRACE) Urine Glucose (UA) Negative mg/dL (NEG) Urine Ketones (Stick) Trace mg/dL (NEG) Urine Blood Large (NEG) Urine Nitrite Negative (NEG) Urine Bilirubin Negative (NEG) Urine Urobilinogen Dipstick 0.2 mg/dL (0.2 mg/dL) Urine Leukocyte Esterase Large (NEG) Urine RBC >40 /HPF (0-2) Urine WBC Tntc /HPF (0-4) Urine Bacteria Many /HPF (0-FEW) Laboratory Tests Test 08/03/21 10:59 08/03/21 11:03 08/03/21 11:05 08/03/21 11:30 Glucose (Fingerstick) 113 mg/dL (70-99) White Blood Count 4.1 x10^3/uL (4.0-11.0) Red Blood Count 3.89 x10^6/uL (4.30-5.70) Hemoglobin 12.3 g/dL (13.0-17.5) Hematocrit 37.1 % (39.0-53.0) Mean Corpuscular Volume 96 fL (79-100) Mean Corpuscular Hemoglobin 32 pg (25-35) Mean Corpuscular Hemoglobin Concent 33 g/dL (31-37) Red Cell Distribution Width 16.2 % (11.5-14.5) Platelet Count 190 x10^3/uL (140-400) Neutrophils (%) (Auto) 95 % (31-73) Lymphocytes (%) (Auto) 3 % (24-48) Monocytes (%) (Auto) 1 % (0-9) Eosinophils (%) (Auto) 1 % (0-3) Basophils (%) (Auto) 0 % (0-3) Neutrophils # (Auto) 3.9 x10^3/uL (1.8-7.7) Lymphocytes # (Auto) 0.1 x10^3/uL (1.0-4.8) Monocytes # (Auto) 0.0 x10^3/uL (0.0-1.1) Eosinophils # (Auto) 0.0 x10^3/uL (0.0-0.7) Basophils # (Auto) 0.0 x10^3/uL (0.0-0.2) Prothrombin Time 14.3 SEC (11.7-14.0) Prothromb Time International Ratio 1.1 (0.8-1.1) Activated Partial Thromboplast Time 34 SEC (24-38) Sodium Level 134 mmol/L (136-145) Potassium Level 3.5 mmol/L (3.5-5.1) Chloride Level 94 mmol/L (98-107) Carbon Dioxide Level 28 mmol/L (21-32) Anion Gap 12 (6-14) Blood Urea Nitrogen 29 mg/dL (8-26) Creatinine 5.1 mg/dL (0.7-1.3) Estimated GFR (Cockcroft-Gault) 11.8 BUN/Creatinine Ratio 6 (6-20) Glucose Level 106 mg/dL (70-99) Lactic Acid Level 3.0 mmol/L (0.4-2.0) Calcium Level 8.6 mg/dL (8.5-10.1) Total Bilirubin 0.6 mg/dL (0.2-1.0) Aspartate Amino Transf (AST/SGOT) 89 U/L (15-37) Alanine Aminotransferase (ALT/SGPT) 133 U/L (16-63) Alkaline Phosphatase 268 U/L (46-116) Troponin I High Sensitivity 268 ng/L (4-75) Total Protein 8.8 g/dL (6.4-8.2) Albumin 3.2 g/dL (3.4-5.0) Albumin/Globulin Ratio 0.6 (1.0-1.7) SARS-CoV-2 Antigen (Rapid) Negative (NEGATIVE) Urine Collection Type Unknown Urine Color Red Urine Clarity Turbid Urine pH 8.0 (<5.0-8.0) Urine Specific [place] 1.015 (1.000-1.030) Urine Protein >=300 mg/dL (NEG-TRACE) Urine Glucose (UA) Negative mg/dL (NEG) Urine Ketones (Stick) Trace mg/dL (NEG) Urine Blood Large (NEG) Urine Nitrite Negative (NEG) Urine Bilirubin Negative (NEG) Urine Urobilinogen Dipstick 0.2 mg/dL (0.2 mg/dL) Urine Leukocyte Esterase Large (NEG) Urine RBC >40 /HPF (0-2) Urine WBC Tntc /HPF (0-4) Urine Bacteria Many /HPF (0-FEW) Images Images CT angiography of the head and neck with intravenous contrast. HISTORY: Stroke. TECHNIQUE: Computed tomographic images of the head and neck were obtained following the administration of intravenous contrast according to angiography protocol. Multiplanar reformatting was performed and three dimensional maximum intensity projection images were obtained. *One or more of the following individualized dose reduction techniques were util ized for this examination: 1. Automated exposure control. 2. Adjustment of the mA and/or kV according to patient size. 3. Use of iterative reconstruction technique. COMPARISON: Noncontrast head CT obtained on the same date. FINDINGS: Evaluation of the upper thorax demonstrates calcified atherosclerotic plaque involving the aortic arch and proximal left subclavian artery. There is also calcified atherosclerotic plaque at the origin of the right subclavian artery. There is no hemodynamically significant stenosis involving the arch vessel origins. There are prominent mediastinal lymph nodes. There is a 7 mm groundglass nodular opacity within the left lung apex. There are few additional peripheral groundglass opacities which are likely due to atelectasis or scarring. There are prominent collateral vessels within the right greater than left anterior chest wall. There is partially calcified atherosclerotic plaque involving the carotid bulbs and proximal internal carotid arteries. This results in less than 50 percent stenosis. There is also focal calcified plaque within the right internal carotid artery at the level of C1, resulting in approximately 50-69 percent stenosis. There is minimal atherosclerotic plaque throughout the remainder of the internal carotid arteries. No hemodynamically significant stenosis or occlusion is seen involving the cerebral arteries. There are is a dominant left vertebral artery. The distal right vertebral artery is hypoplastic. The vertebral arteries are widely patent. There is paranasal sinus mucosal thickening with small maxillary sinus mucous retention cyst. The mastoid air cells are clear. There is no neck lymphadenopathy. There are degenerative changes throughout the spine. There is cervical kyphosis centered at C5. There is multilevel cervical listhesis. The combination of degenerative changes results in mild right foraminal stenosis at C2-C3, mild bilateral foraminal stenosis at C3-C4, mild right foraminal stenosis at C4-C5, mild to moderate left foraminal and mild central canal stenosis at C5- C6, and moderate left and mild right foraminal and mild central canal stenosis at C6-C7. IMPRESSION: 1. Moderate partially calcified atherosclerotic plaque involving the carotid bulbs and proximal internal carotid arteries, with less than 50 percent stenosis. There is also focal calcified plaque within the distal right vertebral artery at the level of C1 resulting in 50-69 percent stenosis. There is no additional significant stenosis or evidence of large vessel occlusion. 2. Bilateral cerebral white matter changes, likely due to chronic small vessel disease in a patient of this age. Note is made that MRI is more sensitive for acute infarction. 3. Degenerative change involving the cervical spine, resulting in stenosis at the aforementioned levels. 4. 7 mm groundglass nodular opacity within the left lung apex. Follow-up can be performed in 6-12 months. The superimposed on upper lobe predominant atelectasis and pleural parenchymal scarring. 5. Prominent the central lymph nodes, likely reactive in etiology. Head CT without contrast. HISTORY: Code stroke. Left-sided weakness. TECHNIQUE: Computed tomographic images of the head were obtained without contrast. *One or more of the following individualized dose reduction techniques were utilized for this examination: 1. Automated exposure control. 2. Adjustment of the mA and/or kV according to patient size. 3. Use of iterative reconstruction technique. COMPARISON: None. FINDINGS: There is no acute or subacute extra-axial or intraparenchymal hemorrhage. There is no mass effect or midline shift. There is no hydrocephalus. There are areas of decreased attenuation within the cerebral white matter, nonspecific and likely related to chronic small vessel disease. There are small nonspecific calcifications within the bilateral sylvian fissures. There is maxillary sinus and right ethmoid sinus mucosal thickening. There are small maxillary sinus mucous retention cysts. The orbits and mastoid air cells are unremarkable. There is no suspicious calvarial lesion. IMPRESSION: 1. No acute intracranial finding. Note is made that MRI is more sensitive for acute infarction. 2. Bilateral cerebral white matter changes, likely due to chronic small vessel disease. Assessment/Plan Assessment/Plan Impression: Possible stroke but with the hypotension, respiratory failure, probable sepsis, the diagnosis is in doubt. Note negative CT and CT angiogram Recommendations: Treat medical diseases I will consider an MRI of the brain depending on his course, we will need to coordinate with the pacemaker manufacture Also see stroke orders, therapies ordered, but will be on hold because of medical issues. Discussed with patient's mother Discussed with Dr. Merritt Thank you for letting me help with the patient's care. REID HERNANDEZ MD Aug 03, 2021 12:53
--- NOTE | 2021-08-03 12:57 | RAD ---
EXAM: Chest, single view. HISTORY: Intubation. COMPARISON: 08/03/2021. FINDINGS: A frontal view of the chest is obtained. There is an endotracheal tube within the distal tr achea. The tip is approximately 2.4 cm from the rich. There is nasogastric tube within the proximal stomach, with the side-port likely within the distal esophagus. There is stable diffuse increased in terstitial opacity. There is no consolidation, pleural effusion or pneumothorax. There is a stable ca rdiac silhouette. IMPRESSION: 1. Endotracheal tube within the distal trachea and nasogastric tube within the proximal stomach. The nasogastric tube side-port is likely within the distal esophagus. 2. Stable diffuse interstitial infiltrate likely superimposed on chronic interstitial changes. Electronically signed by: Portia Hitchcock MD (08/03/2021 12:55 PM) [id number]
[2021-08-03 13:25] LABS: BASE EXCESS ABG -1 mmol/L (-3-3); HCO3 ABG 25 mmol/L (21-28); PCO2 ABG 49 mmHg (35-46); PO2 ABG 237 mmHg (75-108); SAT O2 ABG 99 % (92-99)
[2021-08-03 13:29] LABS: FIO2 ABG 100%vent
[2021-08-03 13:31] LABS: % BANDS 28 % (0-9); % EOS 1 % (0-5); % LYMPHS 5 % (24-48); % MONOS 1 % (0-10); % SEGS 65 % (35-66); PLT ESTIMATE ADEQUATE (ADEQUATE)
[2021-08-03 13:33] LABS: TOXIC VACUOLATION PRESENT
[2021-08-03 13:33] LABS: CORRECTED PCO2 ABG 53 mmHg; CORRECTED PO2 ABG 245 mmHg
--- NOTE | 2021-08-03 13:47 | HP ---
DATE OF SERVICE: 08/03/2021 ADMIT DATE: 08/03/2021 CHIEF COMPLAINT: Mental status change. HISTORY OF PRESENT ILLNESS: The patient is a pleasant 56-year-old male who is on dialysis. He has a suprapubic catheter. He went to hemodialysis today. After dialysis, he apparently was driving himself home. I think he was found in the car unresponsive by his house. EMS was called. He was brought to the ER, he was intubated. During intubation, they noticed some blood in the mouth, so that canceled his eligibility for TPA. Clinically, he seems to have had a stroke and he also has sepsis. The catheter seems to be infected. I discussed the case with ER physician. We are admitting the patient to the ICU. PAST MEDICAL HISTORY: Suprapubic catheter; CHF; COPD; hypertension; pneumonia, end-stage renal disease, on dialysis; history of peritonitis. He has also got a history of home peritoneal dialysis, dialysis catheter in the right chest; left kidney stents; suprapubic catheter. ALLERGIES: None. FAMILY HISTORY: Diabetes. SOCIAL HISTORY: Does not drink, smoke or take drugs. MEDICATIONS: Reviewed. Please refer the MRAD. REVIEW OF SYSTEMS: Unable to obtain. He is on the vent. PHYSICAL EXAMINATION: VITALS: Within normal limits and are stable. GENERAL: He is sedated on the vent. HEENT: He has ET tube in place. EYES: His eyes are slightly opened. MUSKULOSKELETAL: Well developed, well nourished, good range of motion ENDOCRINE: No thyromegaly was palpated LYMPHATICS: No cervical chain or axillary nodes were noted HEMATOPOIETIC: No bruising NECK: Supple, no JVD, no thyromegaly was noted. LUNGS: Clear to auscultation in all lung payne without rhonchi or wheezing. HEART: RRR, S1, S2 present. Peripheral pulses intact, no obvious murmurs were noted. ABDOMEN: He has a suprapubic catheter. EXTREMITIES: Without any cyanosis, clubbing, or edema. Pedal pulses intact, Homans sign is negative. NEUROLOGIC: He is sedated on the vent. PSYCHIATRIC: He is sedated on the vent. SKIN: No ulcerations or rashes, good skin turgor, no jaundice. VASCULAR: Good capillary refill, neurovascular bundle appears to be intact. Chest x-ray shows slightly decreased diffuse interstitial infiltrate. CTA of the head and neck shows carotid plaquing less than 50%, cerebral white matter changes secondary to small vessel disease, degenerative joint disease in the cervical spine, a 7 mm ground glass nodular opacity in the left lung apex and prominent central lymph nodes, likely reactive. CT of the head showed no acute disease. ASSESSMENT AND PLAN: Probable stroke and sepsis. The patient has been intubated. He has been admitted to the ICU. We are consulting Infectious Disease and Neurology. He got a dose of IV vancomycin and Zosyn in the ER. Home meds when possible. DVT prophylaxis. Full code. P.r.n. vecuronium. Continue the propofol. P.r.n. fentanyl. Trend labs. Prognosis extremely guarded. CC TIME: 31 minutes. KAYDEN/SUSAN DR: KAYDEN/macey TID: [id number]
[2021-08-03 13:51] LABS: CHOLESTEROL/HDL RATIO 2.7
--- NOTE | 2021-08-03 14:16 | EKG ---
[facility] [address] [place] [address] Test Date: 2021-08-03 Test Time: 11:02:01 Pat Name: FELICE GROVE Department: Room: 115 1 Gender: M Mangle Roller: : 1965 Requested By: TODD MORALES Order Number: [id number] Reading MD: Chuck Merritt Measurements Intervals [place] Rate: 146 P: 0 UT: 106 QRS: 27 QRSD: 82 T: 54 QT: 298 QTc: 466 Interpretive Statements SINUS TACHYCARDIA ST & T ABNORMALITY, CONSIDER HIGH LATERAL ISCHEMIA OR LEFT VENTRICULAR STRAIN Electronically Signed On 08-07-2021 16:57:39 C ARCHITECT by Chuck Merritt
[2021-08-03] MEDS ORDERED: IV NORMAL SALINE 250ML 250 ML IV ONE (14:30)
--- NOTE | 2021-08-03 14:45 | NUR ---
PT ADMITTED FROM ED TO ROOM 115, PT ON VENT, BP LOW, VERSED, LEVOPHED AND FENTANYL REQUESTED FROM RX. PT WITH SUPRAPUBIC CATH, OG, AVF, ETT, NOT ON ANY GTTS. PT ON 60% FIO2. SETTLED TO ROOM.
[2021-08-03] MEDS ORDERED: VECURONIUM BOLUS 10 MG VIAL. IV PRN (15:00)
[2021-08-03] MEDS ORDERED: ATROPINE 0.5 MG/5 ML DISP.SYRINGE. IV PRN (15:00)
[2021-08-03] MEDS ORDERED: IV NORMAL SALINE 500ML BAG 500 ML IV PRN (15:00)
[2021-08-03] MEDS: MIDAZOLAM 100mg/100ml NS BAG 100 ML IV PRN (15:23)
[2021-08-03] MEDS: NOREPINEPHRINE VIAL 8 MG in IV DEXTROSE 5% 250 ML IV PRN (15:24)
[2021-08-03] MEDS ORDERED: ROCURONIUM 50 MG/5 ML VIAL. ONE (17:04)
[2021-08-03] MEDS ORDERED: ACETAMINOPHEN 650 MG/20.3 ML SOLUTION. PEG PRN (20:45)
--- NOTE | 2021-08-03 20:45 | NUR ---
Patient's temp 103.5F, paged Dr Valdez. Dr Valdez returned page, notified of fever--orders received for Tylenol 650MG per OG ro rectal suppository PRN Q6HRS and draw one set of blood cultures.
[2021-08-03] MEDS ORDERED: CHLORHEXIDINE 0.12% 15 ML MOUTHWASH. MM SCH (21:00)
[2021-08-03] MEDS: CHLORHEXIDINE 0.12% 15 ML MOUTHWASH. MM SCH (21:00)
[2021-08-03] MEDS ORDERED: FAMOTIDINE 20 MG/2 ML VIAL IVP SCH (21:00)
[2021-08-03] MEDS: ACETAMINOPHEN 650 MG SUPP.RECT. PR PRN (21:00)
[2021-08-04] VITALS (42 sets, daily range): BP systolic 65–133; BP diastolic 34–61
[2021-08-04 03:09] LABS: HEMOGLOBIN A1C 5.4 % (4.8-5.6)
[2021-08-04] MEDS: ACETAMINOPHEN 650 MG SUPP.RECT. PR PRN ×2 (03:50→20:25)
[2021-08-04] MEDS: NOREPINEPHRINE VIAL 8 MG in IV DEXTROSE 5% 250 ML IV PRN (03:52)
[2021-08-04] MEDS: VASOPRESSIN - VASOSTRICT 20 UNIT in IV DEXTROSE 5% 100ML 100 ML IV PRN ×3 (03:54→21:20)
--- NOTE | 2021-08-04 06:15 | NUR ---
Dr Mace at bedside, updated on condition, hypotension, tachycardia and Vasopressin and Levophed rates. Order received to start Phenylephrine.
[2021-08-04] MEDS: NOREPINEPHRINE VIAL 32 MG in IV D5W 250ML IV PRN ×2 (06:37→17:56)
--- NOTE | 2021-08-04 06:52 | PDOC ---
[employer] PROGRESS NOTE Date of Service DOS: DATE: 08/04/21 TIME: 06:49 Chief Complaint Chief Complaint Respiratory failure requiring mechanical ventilation Severe sepsis Probable stroke Suprapubic catheter; CHF; COPD; hypertension; pneumonia, End-stage renal disease, on dialysis; history of peritonitis dialysis as well left kidney stents; suprapubic catheter. History of Present Illness History of Present Illness 08/04/2021 Patient seen and examined in the ICU He is mechanically ventilated AC/16/500/40 5% with 5 of PEEP He is extremely hypotensive 63/40 currently despite having Levophed and vasopressin Discussed with RN were going to start Michael-Synephrine Tachycardic at 117 bpm Patient is extremely cool and clammy Had a fever to 103.5 last night currently at 102.9 He is extremely critically ill Vitals/I&O Vitals/I&O: Vital Signs Date Time Temp Pulse Resp B/P (MAP) Pulse Ox O2 Delivery O2 Flow Rate FiO2 08/04/21 04:00 Mechanical Ventilator 08/04/21 03:44 24 100 08/03/21 18:45 120 78/46 08/03/21 14:45 99.1 99.1 08/03/21 11:58 15.0 I & O 08/03/21 08/03/21 08/04/21 15:00 23:00 07:00 Intake Total 1600 ml 66.91 ml Output Total 20 ml 0 ml Balance 1600 ml 46.91 ml 0 ml Physical Exam General: Other (Sedated) Heart: Other (Tachycardic) Lungs: Crackles Abdomen: Soft Extremities: No clubbing Skin: No rashes, Other (Very cool and clammy diaphoretic) Labs Labs: Laboratory Tests Test 08/03/21 10:59 08/03/21 11:03 08/03/21 11:05 08/03/21 11:30 Glucose (Fingerstick) 113 mg/dL (70-99) White Blood Count 4.1 x10^3/uL (4.0-11.0) Red Blood Count 3.89 x10^6/uL (4.30-5.70) Hemoglobin 12.3 g/dL (13.0-17.5) Hematocrit 37.1 % (39.0-53.0) Mean Corpuscular Volume 96 fL (79-100) Mean Corpuscular Hemoglobin 32 pg (25-35) Mean Corpuscular Hemoglobin Concent 33 g/dL (31-37) Red Cell Distribution Width 16.2 % (11.5-14.5) Platelet Count 190 x10^3/uL (140-400) Neutrophils (%) (Auto) 95 % (31-73) Lymphocytes (%) (Auto) 3 % (24-48) Monocytes (%) (Auto) 1 % (0-9) Eosinophils (%) (Auto) 1 % (0-3) Basophils (%) (Auto) 0 % (0-3) Neutrophils # (Auto) 3.9 x10^3/uL (1.8-7.7) Lymphocytes # (Auto) 0.1 x10^3/uL (1.0-4.8) Monocytes # (Auto) 0.0 x10^3/uL (0.0-1.1) Eosinophils # (Auto) 0.0 x10^3/uL (0.0-0.7) Basophils # (Auto) 0.0 x10^3/uL (0.0-0.2) Segmented Neutrophils % 65 % (35-66) Band Neutrophils % 28 % (0-9) Lymphocytes % 5 % (24-48) Monocytes % 1 % (0-10) Eosinophils % 1 % (0-5) Toxic Vacuolation Present Platelet Estimate Adequate (ADEQUATE) Giant Platelets Present Prothrombin Time 14.3 SEC (11.7-14.0) Prothromb Time International Ratio 1.1 (0.8-1.1) Activated Partial Thromboplast Time 34 SEC (24-38) Sodium Level 134 mmol/L (136-145) Potassium Level 3.5 mmol/L (3.5-5.1) Chloride Level 94 mmol/L (98-107) Carbon Dioxide Level 28 mmol/L (21-32) Anion Gap 12 (6-14) Blood Urea Nitrogen 29 mg/dL (8-26) Creatinine 5.1 mg/dL (0.7-1.3) Estimated GFR (Cockcroft-Gault) 11.8 BUN/Creatinine Ratio 6 (6-20) Glucose Level 106 mg/dL (70-99) Hemoglobin A1c 5.4 % (4.8-5.6) Lactic Acid Level 3.0 mmol/L (0.4-2.0) Calcium Level 8.6 mg/dL (8.5-10.1) Total Bilirubin 0.6 mg/dL (0.2-1.0) Aspartate Amino Transf (AST/SGOT) 89 U/L (15-37) Alanine Aminotransferase (ALT/SGPT) 133 U/L (16-63) Alkaline Phosphatase 268 U/L (46-116) Troponin I High Sensitivity 268 ng/L (4-75) Total Protein 8.8 g/dL (6.4-8.2) Albumin 3.2 g/dL (3.4-5.0) Albumin/Globulin Ratio 0.6 (1.0-1.7) Triglycerides Level 76 mg/dL (0-150) Cholesterol Level 137 mg/dL (0-200) LDL Cholesterol, Calculated 72 mg/dL (0-100) VLDL Cholesterol, Calculated 15 mg/dL (0-40) Non-HDL Cholesterol Calculated 87 mg/dL (0-129) HDL Cholesterol 50 mg/dL (40-60) Cholesterol/HDL Ratio 2.7 SARS-CoV-2 Antigen (Rapid) Negative (NEGATIVE) Urine Collection Type Unknown Urine Color Red Urine Clarity Turbid Urine pH 8.0 (<5.0-8.0) Urine Specific [place] 1.015 (1.000-1.030) Urine Protein >=300 mg/dL (NEG-TRACE) Urine Glucose (UA) Negative mg/dL (NEG) Urine Ketones (Stick) Trace mg/dL (NEG) Urine Blood Large (NEG) Urine Nitrite Negative (NEG) Urine Bilirubin Negative (NEG) Urine Urobilinogen Dipstick 0.2 mg/dL (0.2 mg/dL) Urine Leukocyte Esterase Large (NEG) Urine RBC >40 /HPF (0-2) Urine WBC Tntc /HPF (0-4) Urine Bacteria Many /HPF (0-FEW) Test 08/03/21 13:07 08/03/21 14:30 O2 Saturation 99 % (92-99) Arterial Blood pH 7.33 (7.35-7.45) Arterial Blood pH (Temp corrected) 7.30 Arterial Blood pCO2 at Patient Temp 49 mmHg (35-46) Arterial Blood pCO2 (Temp correct) 53 mmHg Arterial Blood pO2 at Patient Temp 237 mmHg (75-108) Arterial Blood pO2 (Temp corrected) 245 mmHg Arterial Blood HCO3 25 mmol/L (21-28) Arterial Blood Base Excess -1 mmol/L (-3-3) FiO2 100%vent Lactic Acid Level 3.8 mmol/L (0.4-2.0) Assessment and Plan Assessmemt and Plan Problems Medical Problems: (1) Hypoxia Status: Acute (2) Respiratory failure Status: Acute (3) Sepsis Status: Acute (4) Stroke Status: Acute (5) UTI (urinary tract infection) Status: Acute Respiratory failure requiring mechanical ventilation Severe sepsis Probable stroke Suprapubic catheter; CHF; COPD; hypertension; pneumonia, End-stage renal disease, on dialysis; history of peritonitis dialysis as well left kidney stents; suprapubic catheter. Plan ICU monitoring Continue mechanical ventilation IV antibiotics per infectious disease Continue our IV pressor support with Levophed vasopressin and were adding an Michael-Synephrine Trend labs Home meds when possible Dialysis per nephrology if possible He remains very critically ill Prognosis extremely guarded possibly terminal CC time 32 minutes Comment Review of Relevant I have reviewed the following items allyson (where applicable) has been applied. Medications: Current Medications Medications (Trade) Dose Ordered Sig/Kevin Route PRN Reason Start Time Stop Time Status Last Admin Dose Admin Sodium Chloride 1,000 ml @ 1,000 mls/hr 1X ONCE IV 08/03/21 11:15 08/03/21 12:14 DC 08/03/21 11:26 Piperacillin Sod/ Tazobactam Sod 4.5 gm/Sodium Chloride 100 ml @ 200 mls/hr 1X ONCE IV 08/03/21 11:15 08/03/21 11:44 DC 08/03/21 11:26 Vancomycin HCl 1.5 gm/Sodium Chloride 500 ml @ 250 mls/hr 1X ONCE IV 08/03/21 12:00 08/03/21 13:59 DC 08/03/21 12:00 Iohexol (Omnipaque 300 Mg/ml) 75 ml 1X ONCE IV 08/03/21 11:15 08/03/21 11:16 DC 08/03/21 11:29 Propofol 100 ml @ 2.235 mls/ hr CONT PRN IV PER PROTOCOL 08/03/21 12:15 08/04/21 12:14 08/03/21 12:31 Midazolam HCl (Versed) 5 mg PRN 1X PRN IVP VENT INDUCTION 08/03/21 12:15 08/03/21 14:12 DC 08/03/21 14:12 Etomidate (Amidate) 10 mg 1X ONCE IV 08/03/21 12:45 08/03/21 12:46 DC 08/03/21 12:48 Rocuronium [place] (Zemuron) 100 mg 1X ONCE IV 08/03/21 12:45 08/03/21 12:46 DC 08/03/21 12:45 Sodium Chloride 250 ml @ 250 mls/hr 1X ONCE IV 08/03/21 14:30 08/03/21 15:29 DC 08/03/21 14:21 Fentanyl Citrate 30 ml @ 2.5 mls/hr CONT PRN IV SEE PROTOCOL 08/03/21 15:00 08/04/21 03:14 Midazolam HCl 100 ml @ 1 mls/hr CONT PRN IV SEE PROTOCOL 08/03/21 15:00 08/03/21 15:23 Famotidine (Pepcid Vial) 20 mg BID IVP 08/03/21 21:00 08/03/21 21:00 Norepinephrine Bitartrate 8 mg/ Dextrose 258 ml @ 14.416 mls/ hr CONT PRN IV PER PROTOCOL 08/03/21 15:00 08/04/21 05:29 DC 08/04/21 03:52 Acetaminophen (Tylenol Supp) 650 mg PRN Q6HRS PRN ND MILD PAIN / TEMP > 100.3'F 08/03/21 20:45 08/04/21 03:50 Vasopressin 20 unit/Dextrose 101 ml @ 12 mls/hr CONT PRN IV SEE I/O RECORD 08/04/21 03:45 08/04/21 03:54 Norepinephrine Bitartrate 32 mg/ Dextrose 250 ml @ 3.492 mls/ hr CONT PRN IV SEE I/O RECORD 08/04/21 05:30 08/04/21 06:37 Justifications for Admission Other Justification KASSIEO DEVAN NICHOLE III DO Aug 04, 2021 06:52
[2021-08-04] MEDS ORDERED: VANCOMYCIN PER PHARMACY MC PRN (08:00)
[2021-08-04 08:04] LABS: BASE EXCESS ABG -9 mmol/L (-3-3); CORRECTED PCO2 ABG 44 mmHg; CORRECTED PH ABG 7.24; CORRECTED PO2 ABG 115 mmHg; HCO3 ABG 18 mmol/L (21-28); PCO2 ABG 41 mmHg (35-46); PO2 ABG 104 mmHg (75-108); SAT O2 ABG 98 % (92-99)
--- NOTE | 2021-08-04 08:13 | RAD ---
XR CHEST 1V INDICATION: vent management 115 COMPARISON STUDY: 08/03/2019. FINDINGS: Life Support Devices: Stable endotracheal tube, enteric tube. Lungs: Normal lung volume. Stable diffuse bilateral opacities. Pleura: No pleural effusion or pneumothorax. Heart and Mediastinum: Stable cardiomediastinal silhouette and great vessels. IMPRESSION: 1. Stable life support devices. 2. Stable diffuse bilateral opacities. Electronically signed by: Abdelrahman Mendes MD (08/04/2021 8:10 AM) [id number]
--- NOTE | 2021-08-04 08:21 | CONS ---
DATE OF CONSULTATION: 08/04/2021 REQUESTING PHYSICIAN: Gabe Mace DO. REASON FOR CONSULTATION: Sepsis, fever. HISTORY OF PRESENT ILLNESS: This is a 56-year-old gentleman with end-stage renal disease. Apparently, he went to dialysis, came home early, not feeling well and he was found unresponsive in a driveway. 911 was called. The patient was seen by having to have a left-sided hemiparesis. The patient was supposed to get alteplase, but then he developed hypotension, respiratory failure, requiring intubation and bleeding into the mouth, hence alteplase was not given. The patient since then is intubated on a ventilator, hypotensive, requiring now 3 vasopressor support. The patient had up to 101.9 temperature and received vancomycin and Zosyn. Last night, I did discuss with the nurse and since he had gotten only 1 dose, I recommended to continue vancomycin and Zosyn. The patient is currently orally intubated on a ventilator and 3 vasopressor support. No nausea, vomiting, diarrhea. The patient does have a suprapubic catheter and he had a cloudy urine, so that has been cultured along with blood and suprapubic catheter has been changed. PAST MEDICAL HISTORY: Positive for end-stage renal disease, on hemodialysis. Last April, a pacemaker was placed, congestive heart failure. He has AV shunt, hypertension, COPD, gastroesophageal reflux disease, benign prostatic hypertrophy. He has history of depression, anemia, hepatitis. SOCIAL HISTORY: Positive for smoking. No alcohol use or drug use. ALLERGIES: No known drug allergies. CURRENT MEDICATIONS: Reviewed. The patient is on vancomycin and Zosyn. REVIEW OF SYSTEMS: Unable to obtain other than what I mentioned in the HPI through the RN. PHYSICAL EXAMINATION: GENERAL: Sedated, orally intubated gentleman, not in distress. VITAL SIGNS: Temperature 101.9, pulse 146, respirations 15, blood pressure 148/63. HEENT: Both pupils are round and reacting. No conjunctival lesion. NECK: Supple. No JVP. Mouth cannot be visualized. Orally intubated. LUNGS: Decreased breath sounds bilaterally. HEART: S1, S2 regular. No gallop or murmur. ABDOMEN: Soft, nontender. No organomegaly. Suprapubic catheter is now looking good with normal looking urine. EXTREMITIES: No edema, cyanosis. SKIN: Unremarkable. AV shunt in the right upper extremity is unremarkable. NEUROLOGIC: The patient cannot be judged as sedated and intubated. LABORATORY DATA: White count is 4.1, hemoglobin 12.3, platelets are 190,000. BUN and creatinine is 29 and 5.1. Lactic acid up to 3.8. Urinalysis showed more than too numerous to count wbc's. Culture is pending. Blood cultures pending. COVID negative. Chest x-ray showed diffuse interstitial infiltrate. Head and neck CT other than calcification and ground glass opacity unremarkable. IMPRESSION: 1. Encephalopathy. 2. Fever. 3. Complicated urinary tract infection with sepsis. 4. Hypotension. 5. Respiratory failure, requiring intubation. 6. Suspected cerebrovascular accident. 7. End-stage renal disease, on hemodialysis. 8. Congestive heart failure. 9. History of hypertension. RECOMMENDATIONS: Would continue with vancomycin, Zosyn and add ciprofloxacin. Supportive care. We will follow cultures and continue to follow. Thank you very much, Dr. Mace, for giving me opportunity to participate in this patient's care. ALEXA TRIVEDI: Anastacio TID: [id number]
--- NOTE | 2021-08-04 08:23 | PDOC ---
PULMONARY PROGRESS NOTES DATE: 08/04/21 TIME: 08:23 Vitals Vital Signs Date Time Temp Pulse Resp B/P (MAP) Pulse Ox O2 Delivery O2 Flow Rate FiO2 08/04/21 07:48 98 Ventilator 08/04/21 03:44 24 08/03/21 22:00 117 87/54 08/03/21 21:00 103.3 103.3 08/03/21 11:58 15.0 General: Alert, No acute distress Lungs: Crackles Cardiovascular: S1, S2 Abdomen: Soft, Non-tender Extremities: No Edema Labs Laboratory Tests Test 08/03/21 10:59 08/03/21 11:03 08/03/21 11:05 08/03/21 11:30 Glucose (Fingerstick) 113 mg/dL (70-99) White Blood Count 4.1 x10^3/uL (4.0-11.0) Red Blood Count 3.89 x10^6/uL (4.30-5.70) Hemoglobin 12.3 g/dL (13.0-17.5) Hematocrit 37.1 % (39.0-53.0) Mean Corpuscular Volume 96 fL (79-100) Mean Corpuscular Hemoglobin 32 pg (25-35) Mean Corpuscular Hemoglobin Concent 33 g/dL (31-37) Red Cell Distribution Width 16.2 % (11.5-14.5) Platelet Count 190 x10^3/uL (140-400) Neutrophils (%) (Auto) 95 % (31-73) Lymphocytes (%) (Auto) 3 % (24-48) Monocytes (%) (Auto) 1 % (0-9) Eosinophils (%) (Auto) 1 % (0-3) Basophils (%) (Auto) 0 % (0-3) Neutrophils # (Auto) 3.9 x10^3/uL (1.8-7.7) Lymphocytes # (Auto) 0.1 x10^3/uL (1.0-4.8) Monocytes # (Auto) 0.0 x10^3/uL (0.0-1.1) Eosinophils # (Auto) 0.0 x10^3/uL (0.0-0.7) Basophils # (Auto) 0.0 x10^3/uL (0.0-0.2) Segmented Neutrophils % 65 % (35-66) Band Neutrophils % 28 % (0-9) Lymphocytes % 5 % (24-48) Monocytes % 1 % (0-10) Eosinophils % 1 % (0-5) Toxic Vacuolation Present Platelet Estimate Adequate (ADEQUATE) Giant Platelets Present Prothrombin Time 14.3 SEC (11.7-14.0) Prothromb Time International Ratio 1.1 (0.8-1.1) Activated Partial Thromboplast Time 34 SEC (24-38) Sodium Level 134 mmol/L (136-145) Potassium Level 3.5 mmol/L (3.5-5.1) Chloride Level 94 mmol/L (98-107) Carbon Dioxide Level 28 mmol/L (21-32) Anion Gap 12 (6-14) Blood Urea Nitrogen 29 mg/dL (8-26) Creatinine 5.1 mg/dL (0.7-1.3) Estimated GFR (Cockcroft-Gault) 11.8 BUN/Creatinine Ratio 6 (6-20) Glucose Level 106 mg/dL (70-99) Hemoglobin A1c 5.4 % (4.8-5.6) Lactic Acid Level 3.0 mmol/L (0.4-2.0) Calcium Level 8.6 mg/dL (8.5-10.1) Total Bilirubin 0.6 mg/dL (0.2-1.0) Aspartate Amino Transf (AST/SGOT) 89 U/L (15-37) Alanine Aminotransferase (ALT/SGPT) 133 U/L (16-63) Alkaline Phosphatase 268 U/L (46-116) Troponin I High Sensitivity 268 ng/L (4-75) Total Protein 8.8 g/dL (6.4-8.2) Albumin 3.2 g/dL (3.4-5.0) Albumin/Globulin Ratio 0.6 (1.0-1.7) Triglycerides Level 76 mg/dL (0-150) Cholesterol Level 137 mg/dL (0-200) LDL Cholesterol, Calculated 72 mg/dL (0-100) VLDL Cholesterol, Calculated 15 mg/dL (0-40) Non-HDL Cholesterol Calculated 87 mg/dL (0-129) HDL Cholesterol 50 mg/dL (40-60) Cholesterol/HDL Ratio 2.7 SARS-CoV-2 Antigen (Rapid) Negative (NEGATIVE) Urine Collection Type Unknown Urine Color Red Urine Clarity Turbid Urine pH 8.0 (<5.0-8.0) Urine Specific [place] 1.015 (1.000-1.030) Urine Protein >=300 mg/dL (NEG-TRACE) Urine Glucose (UA) Negative mg/dL (NEG) Urine Ketones (Stick) Trace mg/dL (NEG) Urine Blood Large (NEG) Urine Nitrite Negative (NEG) Urine Bilirubin Negative (NEG) Urine Urobilinogen Dipstick 0.2 mg/dL (0.2 mg/dL) Urine Leukocyte Esterase Large (NEG) Urine RBC >40 /HPF (0-2) Urine WBC Tntc /HPF (0-4) Urine Bacteria Many /HPF (0-FEW) Test 08/03/21 13:07 08/03/21 14:30 O2 Saturation 99 % (92-99) Arterial Blood pH 7.33 (7.35-7.45) Arterial Blood pH (Temp corrected) 7.30 Arterial Blood pCO2 at Patient Temp 49 mmHg (35-46) Arterial Blood pCO2 (Temp correct) 53 mmHg Arterial Blood pO2 at Patient Temp 237 mmHg (75-108) Arterial Blood pO2 (Temp corrected) 245 mmHg Arterial Blood HCO3 25 mmol/L (21-28) Arterial Blood Base Excess -1 mmol/L (-3-3) FiO2 100%vent Lactic Acid Level 3.8 mmol/L (0.4-2.0) Laboratory Tests Test 08/03/21 10:59 08/03/21 11:03 08/03/21 11:05 08/03/21 11:30 Glucose (Fingerstick) 113 mg/dL (70-99) White Blood Count 4.1 x10^3/uL (4.0-11.0) Red Blood Count 3.89 x10^6/uL (4.30-5.70) Hemoglobin 12.3 g/dL (13.0-17.5) Hematocrit 37.1 % (39.0-53.0) Mean Corpuscular Volume 96 fL (79-100) Mean Corpuscular Hemoglobin 32 pg (25-35) Mean Corpuscular Hemoglobin Concent 33 g/dL (31-37) Red Cell Distribution Width 16.2 % (11.5-14.5) Platelet Count 190 x10^3/uL (140-400) Neutrophils (%) (Auto) 95 % (31-73) Lymphocytes (%) (Auto) 3 % (24-48) Monocytes (%) (Auto) 1 % (0-9) Eosinophils (%) (Auto) 1 % (0-3) Basophils (%) (Auto) 0 % (0-3) Neutrophils # (Auto) 3.9 x10^3/uL (1.8-7.7) Lymphocytes # (Auto) 0.1 x10^3/uL (1.0-4.8) Monocytes # (Auto) 0.0 x10^3/uL (0.0-1.1) Eosinophils # (Auto) 0.0 x10^3/uL (0.0-0.7) Basophils # (Auto) 0.0 x10^3/uL (0.0-0.2) Segmented Neutrophils % 65 % (35-66) Band Neutrophils % 28 % (0-9) Lymphocytes % 5 % (24-48) Monocytes % 1 % (0-10) Eosinophils % 1 % (0-5) Toxic Vacuolation Present Platelet Estimate Adequate (ADEQUATE) Giant Platelets Present Prothrombin Time 14.3 SEC (11.7-14.0) Prothromb Time International Ratio 1.1 (0.8-1.1) Activated Partial Thromboplast Time 34 SEC (24-38) Sodium Level 134 mmol/L (136-145) Potassium Level 3.5 mmol/L (3.5-5.1) Chloride Level 94 mmol/L (98-107) Carbon Dioxide Level 28 mmol/L (21-32) Anion Gap 12 (6-14) Blood Urea Nitrogen 29 mg/dL (8-26) Creatinine 5.1 mg/dL (0.7-1.3) Estimated GFR (Cockcroft-Gault) 11.8 BUN/Creatinine Ratio 6 (6-20) Glucose Level 106 mg/dL (70-99) Hemoglobin A1c 5.4 % (4.8-5.6) Lactic Acid Level 3.0 mmol/L (0.4-2.0) Calcium Level 8.6 mg/dL (8.5-10.1) Total Bilirubin 0.6 mg/dL (0.2-1.0) Aspartate Amino Transf (AST/SGOT) 89 U/L (15-37) Alanine Aminotransferase (ALT/SGPT) 133 U/L (16-63) Alkaline Phosphatase 268 U/L (46-116) Troponin I High Sensitivity 268 ng/L (4-75) Total Protein 8.8 g/dL (6.4-8.2) Albumin 3.2 g/dL (3.4-5.0) Albumin/Globulin Ratio 0.6 (1.0-1.7) Triglycerides Level 76 mg/dL (0-150) Cholesterol Level 137 mg/dL (0-200) LDL Cholesterol, Calculated 72 mg/dL (0-100) VLDL Cholesterol, Calculated 15 mg/dL (0-40) Non-HDL Cholesterol Calculated 87 mg/dL (0-129) HDL Cholesterol 50 mg/dL (40-60) Cholesterol/HDL Ratio 2.7 SARS-CoV-2 Antigen (Rapid) Negative (NEGATIVE) Urine Collection Type Unknown Urine Color Red Urine Clarity Turbid Urine pH 8.0 (<5.0-8.0) Urine Specific [place] 1.015 (1.000-1.030) Urine Protein >=300 mg/dL (NEG-TRACE) Urine Glucose (UA) Negative mg/dL (NEG) Urine Ketones (Stick) Trace mg/dL (NEG) Urine Blood Large (NEG) Urine Nitrite Negative (NEG) Urine Bilirubin Negative (NEG) Urine Urobilinogen Dipstick 0.2 mg/dL (0.2 mg/dL) Urine Leukocyte Esterase Large (NEG) Urine RBC >40 /HPF (0-2) Urine WBC Tntc /HPF (0-4) Urine Bacteria Many /HPF (0-FEW) Test 08/03/21 13:07 08/03/21 14:30 O2 Saturation 99 % (92-99) Arterial Blood pH 7.33 (7.35-7.45) Arterial Blood pH (Temp corrected) 7.30 Arterial Blood pCO2 at Patient Temp 49 mmHg (35-46) Arterial Blood pCO2 (Temp correct) 53 mmHg Arterial Blood pO2 at Patient Temp 237 mmHg (75-108) Arterial Blood pO2 (Temp corrected) 245 mmHg Arterial Blood HCO3 25 mmol/L (21-28) Arterial Blood Base Excess -1 mmol/L (-3-3) FiO2 100%vent Lactic Acid Level 3.8 mmol/L (0.4-2.0) Medications Active Scripts Medications Dose Route/Sig Max Daily Dose Days Date Category Tums (Calcium Carbonate) 200 Mg Tab.chew 400 Mg PO HS 04/19/21 Reported Sensipar (Cinacalcet Hcl) 60 Mg Tablet 1 Tab PO DAILY 30 04/19/21 Reported Ferric Citrate 210 Mg Tablet 2 Tab PO TID 30 04/19/21 Reported Lasix (Furosemide) 40 Mg Tablet 40 Mg PO BID 04/19/21 Reported Renagel (Sevelamer Hcl) 800 Mg Tablet 2 Tab PO TIDWMEALS 01/18/21 Reported Kapspargo Sprinkle (Metoprolol Succinate) 50 Mg Cap.spr.24 50 Mg PO DAILY 01/18/21 Reported CAYDEN MERRILL MD Aug 04, 2021 08:23
--- NOTE | 2021-08-04 08:29 | PDOC ---
PROGRESS NOTES Date of Service DATE: 08/04/21 TIME: 08:26 Assessment Problems Medical Problems: (1) Hypoxia Status: Acute (2) Respiratory failure Status: Acute (3) Sepsis Status: Acute (4) Stroke Status: Acute (5) UTI (urinary tract infection) Status: Acute Possible stroke but with the hypotension, respiratory failure, probable sepsis, the diagnosis is in doubt. Note negative CT and CT angiogram Fever, sepsis requiring pressors due to hypotension, respiratory failure, end- stage renal disease, congestive heart failure, cardiomyopathy status-post pacemaker Note normal hemoglobin A1c and lipid profile Plan I will wait till tomorrow and check a head CT to see if we can visualize a stroke Treat medical issues Subjective None Objective Vital Signs Date Time Temp Pulse Resp B/P (MAP) Pulse Ox O2 Delivery O2 Flow Rate FiO2 08/04/21 07:48 98 Ventilator 08/04/21 03:44 24 08/03/21 22:00 117 87/54 08/03/21 21:00 103.3 103.3 08/03/21 11:58 15.0 Intake and Output 08/04/21 07:00 Intake Total 1666.91 ml Output Total 330 ml Balance 1336.91 ml Intake IV Total 1666.91 ml Output Urine Total 30 ml Gastric Drainage Total 300 ml PHYSICAL EXAM Sedated on ventilator, opens eyes a little bit to slight painful stimulation PERRL. EOMI. CN: no focal findings. Muscle tone: normal. Muscle strength: Nurse reports he moves the right side more than the left DTR: 2+ Plantar reflex: Silent Gait: not examined in bed. Sensory exam: Not cooperative. Cerebellar: not cooperative Review of Relevant I have reviewed the following items allyson (where applicable) has been applied. Labs Laboratory Tests Test 08/03/21 10:59 08/03/21 11:03 08/03/21 11:05 08/03/21 11:30 Glucose (Fingerstick) 113 mg/dL (70-99) White Blood Count 4.1 x10^3/uL (4.0-11.0) Red Blood Count 3.89 x10^6/uL (4.30-5.70) Hemoglobin 12.3 g/dL (13.0-17.5) Hematocrit 37.1 % (39.0-53.0) Mean Corpuscular Volume 96 fL (79-100) Mean Corpuscular Hemoglobin 32 pg (25-35) Mean Corpuscular Hemoglobin Concent 33 g/dL (31-37) Red Cell Distribution Width 16.2 % (11.5-14.5) Platelet Count 190 x10^3/uL (140-400) Neutrophils (%) (Auto) 95 % (31-73) Lymphocytes (%) (Auto) 3 % (24-48) Monocytes (%) (Auto) 1 % (0-9) Eosinophils (%) (Auto) 1 % (0-3) Basophils (%) (Auto) 0 % (0-3) Neutrophils # (Auto) 3.9 x10^3/uL (1.8-7.7) Lymphocytes # (Auto) 0.1 x10^3/uL (1.0-4.8) Monocytes # (Auto) 0.0 x10^3/uL (0.0-1.1) Eosinophils # (Auto) 0.0 x10^3/uL (0.0-0.7) Basophils # (Auto) 0.0 x10^3/uL (0.0-0.2) Segmented Neutrophils % 65 % (35-66) Band Neutrophils % 28 % (0-9) Lymphocytes % 5 % (24-48) Monocytes % 1 % (0-10) Eosinophils % 1 % (0-5) Toxic Vacuolation Present Platelet Estimate Adequate (ADEQUATE) Giant Platelets Present Prothrombin Time 14.3 SEC (11.7-14.0) Prothromb Time International Ratio 1.1 (0.8-1.1) Activated Partial Thromboplast Time 34 SEC (24-38) Sodium Level 134 mmol/L (136-145) Potassium Level 3.5 mmol/L (3.5-5.1) Chloride Level 94 mmol/L (98-107) Carbon Dioxide Level 28 mmol/L (21-32) Anion Gap 12 (6-14) Blood Urea Nitrogen 29 mg/dL (8-26) Creatinine 5.1 mg/dL (0.7-1.3) Estimated GFR (Cockcroft-Gault) 11.8 BUN/Creatinine Ratio 6 (6-20) Glucose Level 106 mg/dL (70-99) Hemoglobin A1c 5.4 % (4.8-5.6) Lactic Acid Level 3.0 mmol/L (0.4-2.0) Calcium Level 8.6 mg/dL (8.5-10.1) Total Bilirubin 0.6 mg/dL (0.2-1.0) Aspartate Amino Transf (AST/SGOT) 89 U/L (15-37) Alanine Aminotransferase (ALT/SGPT) 133 U/L (16-63) Alkaline Phosphatase 268 U/L (46-116) Troponin I High Sensitivity 268 ng/L (4-75) Total Protein 8.8 g/dL (6.4-8.2) Albumin 3.2 g/dL (3.4-5.0) Albumin/Globulin Ratio 0.6 (1.0-1.7) Triglycerides Level 76 mg/dL (0-150) Cholesterol Level 137 mg/dL (0-200) LDL Cholesterol, Calculated 72 mg/dL (0-100) VLDL Cholesterol, Calculated 15 mg/dL (0-40) Non-HDL Cholesterol Calculated 87 mg/dL (0-129) HDL Cholesterol 50 mg/dL (40-60) Cholesterol/HDL Ratio 2.7 SARS-CoV-2 Antigen (Rapid) Negative (NEGATIVE) Urine Collection Type Unknown Urine Color Red Urine Clarity Turbid Urine pH 8.0 (<5.0-8.0) Urine Specific [place] 1.015 (1.000-1.030) Urine Protein >=300 mg/dL (NEG-TRACE) Urine Glucose (UA) Negative mg/dL (NEG) Urine Ketones (Stick) Trace mg/dL (NEG) Urine Blood Large (NEG) Urine Nitrite Negative (NEG) Urine Bilirubin Negative (NEG) Urine Urobilinogen Dipstick 0.2 mg/dL (0.2 mg/dL) Urine Leukocyte Esterase Large (NEG) Urine RBC >40 /HPF (0-2) Urine WBC Tntc /HPF (0-4) Urine Bacteria Many /HPF (0-FEW) Test 08/03/21 13:07 08/03/21 14:30 O2 Saturation 99 % (92-99) Arterial Blood pH 7.33 (7.35-7.45) Arterial Blood pH (Temp corrected) 7.30 Arterial Blood pCO2 at Patient Temp 49 mmHg (35-46) Arterial Blood pCO2 (Temp correct) 53 mmHg Arterial Blood pO2 at Patient Temp 237 mmHg (75-108) Arterial Blood pO2 (Temp corrected) 245 mmHg Arterial Blood HCO3 25 mmol/L (21-28) Arterial Blood Base Excess -1 mmol/L (-3-3) FiO2 100%vent Lactic Acid Level 3.8 mmol/L (0.4-2.0) Laboratory Tests Test 08/03/21 10:59 08/03/21 11:03 08/03/21 11:05 08/03/21 11:30 Glucose (Fingerstick) 113 mg/dL (70-99) White Blood Count 4.1 x10^3/uL (4.0-11.0) Red Blood Count 3.89 x10^6/uL (4.30-5.70) Hemoglobin 12.3 g/dL (13.0-17.5) Hematocrit 37.1 % (39.0-53.0) Mean Corpuscular Volume 96 fL (79-100) Mean Corpuscular Hemoglobin 32 pg (25-35) Mean Corpuscular Hemoglobin Concent 33 g/dL (31-37) Red Cell Distribution Width 16.2 % (11.5-14.5) Platelet Count 190 x10^3/uL (140-400) Neutrophils (%) (Auto) 95 % (31-73) Lymphocytes (%) (Auto) 3 % (24-48) Monocytes (%) (Auto) 1 % (0-9) Eosinophils (%) (Auto) 1 % (0-3) Basophils (%) (Auto) 0 % (0-3) Neutrophils # (Auto) 3.9 x10^3/uL (1.8-7.7) Lymphocytes # (Auto) 0.1 x10^3/uL (1.0-4.8) Monocytes # (Auto) 0.0 x10^3/uL (0.0-1.1) Eosinophils # (Auto) 0.0 x10^3/uL (0.0-0.7) Basophils # (Auto) 0.0 x10^3/uL (0.0-0.2) Segmented Neutrophils % 65 % (35-66) Band Neutrophils % 28 % (0-9) Lymphocytes % 5 % (24-48) Monocytes % 1 % (0-10) Eosinophils % 1 % (0-5) Toxic Vacuolation Present Platelet Estimate Adequate (ADEQUATE) Giant Platelets Present Prothrombin Time 14.3 SEC (11.7-14.0) Prothromb Time International Ratio 1.1 (0.8-1.1) Activated Partial Thromboplast Time 34 SEC (24-38) Sodium Level 134 mmol/L (136-145) Potassium Level 3.5 mmol/L (3.5-5.1) Chloride Level 94 mmol/L (98-107) Carbon Dioxide Level 28 mmol/L (21-32) Anion Gap 12 (6-14) Blood Urea Nitrogen 29 mg/dL (8-26) Creatinine 5.1 mg/dL (0.7-1.3) Estimated GFR (Cockcroft-Gault) 11.8 BUN/Creatinine Ratio 6 (6-20) Glucose Level 106 mg/dL (70-99) Hemoglobin A1c 5.4 % (4.8-5.6) Lactic Acid Level 3.0 mmol/L (0.4-2.0) Calcium Level 8.6 mg/dL (8.5-10.1) Total Bilirubin 0.6 mg/dL (0.2-1.0) Aspartate Amino Transf (AST/SGOT) 89 U/L (15-37) Alanine Aminotransferase (ALT/SGPT) 133 U/L (16-63) Alkaline Phosphatase 268 U/L (46-116) Troponin I High Sensitivity 268 ng/L (4-75) Total Protein 8.8 g/dL (6.4-8.2) Albumin 3.2 g/dL (3.4-5.0) Albumin/Globulin Ratio 0.6 (1.0-1.7) Triglycerides Level 76 mg/dL (0-150) Cholesterol Level 137 mg/dL (0-200) LDL Cholesterol, Calculated 72 mg/dL (0-100) VLDL Cholesterol, Calculated 15 mg/dL (0-40) Non-HDL Cholesterol Calculated 87 mg/dL (0-129) HDL Cholesterol 50 mg/dL (40-60) Cholesterol/HDL Ratio 2.7 SARS-CoV-2 Antigen (Rapid) Negative (NEGATIVE) Urine Collection Type Unknown Urine Color Red Urine Clarity Turbid Urine pH 8.0 (<5.0-8.0) Urine Specific [place] 1.015 (1.000-1.030) Urine Protein >=300 mg/dL (NEG-TRACE) Urine Glucose (UA) Negative mg/dL (NEG) Urine Ketones (Stick) Trace mg/dL (NEG) Urine Blood Large (NEG) Urine Nitrite Negative (NEG) Urine Bilirubin Negative (NEG) Urine Urobilinogen Dipstick 0.2 mg/dL (0.2 mg/dL) Urine Leukocyte Esterase Large (NEG) Urine RBC >40 /HPF (0-2) Urine WBC Tntc /HPF (0-4) Urine Bacteria Many /HPF (0-FEW) Test 08/03/21 13:07 08/03/21 14:30 O2 Saturation 99 % (92-99) Arterial Blood pH 7.33 (7.35-7.45) Arterial Blood pH (Temp corrected) 7.30 Arterial Blood pCO2 at Patient Temp 49 mmHg (35-46) Arterial Blood pCO2 (Temp correct) 53 mmHg Arterial Blood pO2 at Patient Temp 237 mmHg (75-108) Arterial Blood pO2 (Temp corrected) 245 mmHg Arterial Blood HCO3 25 mmol/L (21-28) Arterial Blood Base Excess -1 mmol/L (-3-3) FiO2 100%vent Lactic Acid Level 3.8 mmol/L (0.4-2.0) Medications Current Medications Sodium Chloride 1,000 ml @ 1,000 mls/hr 1X ONCE IV Last administered on 08/03/21at 11:26; Start 08/03/21 at 11:15; Stop 08/03/21 at 12:14; Status DC Piperacillin Sod/ Tazobactam Sod 4.5 gm/Sodium Chloride 100 ml @ 200 mls/hr 1X ONCE IV Last administered on 08/03/21at 11:26; Start 08/03/21 at 11:15; Stop 08/03/21 at 11:44; Status DC Vancomycin HCl 1.5 gm/Sodium Chloride 500 ml @ 250 mls/hr 1X ONCE IV Last administered on 08/03/21at 12:00; Start 08/03/21 at 12:00; Stop 08/03/21 at 13:59; Status DC Iohexol (Omnipaque 300 Mg/ml) 75 ml 1X ONCE IV Last administered on 08/03/21at 11:29; Start 08/03/21 at 11:15; Stop 08/03/21 at 11:16; Status DC Info (CONTRAST GIVEN -- Rx MONITORING) 1 each PRN DAILY PRN MC SEE COMMENTS; Start 08/03/21 at 11:15; Stop 08/05/21 at 11:14 Fentanyl Citrate 30 ml @ 2.5 mls/hr CONT PRN IV SEE PROTOCOL; Start 08/03/21 at 12:15; Status Cancel Propofol 100 ml @ 2.235 mls/ hr CONT PRN IV PER PROTOCOL Last administered on 08/03/21at 12:31; Start 08/03/21 at 12:15; Stop 08/04/21 at 07:38; Status DC Chlorhexidine Gluconate (Peridex) 15 ml BID MM ; Start 08/03/21 at 21:00; Status Cancel Glycerin/ Hypromellose/ Polyethylene (Artificial Tears) 1 drop PRN Q1HR PRN OU DRY EYE; Start 08/03/21 at 12:15; Stop 08/03/21 at 21:15; Status DC Dexmedetomidine HCl 400 mcg/ Sodium Chloride 100 ml @ 3.725 mls/ hr CONT PRN IV PER PROTOCOL; Start 08/03/21 at 12:15; Stop 08/03/21 at 21:15; Status DC Midazolam HCl (Versed) 5 mg PRN 1X PRN IVP VENT INDUCTION Last administered on 08/03/21at 14:12; Start 08/03/21 at 12:15; Stop 08/03/21 at 14:12; Status DC Etomidate (Amidate) 10 mg 1X ONCE IV Last administered on 08/03/21at 12:48; Start 08/03/21 at 12:45; Stop 08/03/21 at 12:46; Status DC Rocuronium [place] (Zemuron) 100 mg 1X ONCE IV Last administered on 08/03/21at 12:45; Start 08/03/21 at 12:45; Stop 08/03/21 at 12:46; Status DC Sodium Chloride 250 ml @ 250 mls/hr 1X ONCE IV Last administered on 08/03/21at 14:21; Start 08/03/21 at 14:30; Stop 08/03/21 at 15:29; Status DC Fentanyl Citrate 30 ml @ 2.5 mls/hr CONT PRN IV SEE PROTOCOL Last administered on 08/04/21at 03:14; Start 08/03/21 at 15:00 Midazolam HCl 100 ml @ 1 mls/hr CONT PRN IV SEE PROTOCOL Last administered on 08/03/21at 15:23; Start 08/03/21 at 15:00 Propofol 100 ml @ 2.235 mls/ hr CONT PRN IV PER PROTOCOL; Start 08/03/21 at 15:00 Vecuronium [place] (Norcuron Bolus) 6 mg PRN 1X PRN IV VENT INDUCTION; Start 08/03/21 at 15:00; Stop 08/04/21 at 14:59 Chlorhexidine Gluconate (Peridex) 15 ml BID MM ; Start 08/03/21 at 21:00 Glycerin/ Hypromellose/ Polyethylene (Artificial Tears) 1 drop PRN Q1HR PRN OU DRY EYE; Start 08/03/21 at 15:00 Dexmedetomidine HCl 400 mcg/ Sodium Chloride 100 ml @ 3.725 mls/ hr CONT PRN IV PER PROTOCOL; Start 08/03/21 at 15:00 Midazolam HCl (Versed) 5 mg PRN 1X PRN IVP VENT INDUCTION; Start 08/03/21 at 15:00; Stop 08/04/21 at 14:59 Sodium Chloride 500 ml @ 500 mls/hr 1X PRN PRN IV SEE COMMENTS; Start 08/03/21 at 15:00 Atropine Sulfate (ATROPINE 0.5mg SYRINGE) 0.5 mg PRN Q5MIN PRN IV SEE COMMENTS; Start 08/03/21 at 15:00 Famotidine (Pepcid Vial) 20 mg BID IVP Last administered on 08/03/21at 21:00; Start 08/03/21 at 21:00; Stop 08/04/21 at 07:59; Status DC Norepinephrine Bitartrate 8 mg/ Dextrose 258 ml @ 14.416 mls/ hr CONT PRN IV PER PROTOCOL Last administered on 08/04/21at 03:52; Start 08/03/21 at 15:00; Stop 08/04/21 at 05:29; Status DC Etomidate (Amidate) 20 mg STK-MED ONCE IV ; Start 08/03/21 at 17:04; Stop 08/03/21 at 17:04; Status DC Rocuronium [place] (Zemuron) 50 mg STK-MED ONCE .ROUTE ; Start 08/03/21 at 17:04; Stop 08/03/21 at 17:04; Status DC Acetaminophen (Tylenol Supp) 650 mg PRN Q6HRS PRN [place] MILD PAIN / TEMP > 100.3'F Last administered on 08/04/21at 03:50; Start 08/03/21 at 20:45 Acetaminophen (Tylenol) 650 mg PRN Q6HRS PRN PEG MILD PAIN / TEMP > 100.3'F; Start 08/03/21 at 20:45 Vasopressin 20 unit/Dextrose 101 ml @ 12 mls/hr CONT PRN IV SEE I/O RECORD Last administered on 08/04/21at 03:54; Start 08/04/21 at 03:45 Norepinephrine Bitartrate 32 mg/ Dextrose 250 ml @ 3.492 mls/ hr CONT PRN IV SEE I/O RECORD Last administered on 08/04/21at 06:37; Start 08/04/21 at 05:30 Phenylephrine HCl 50 mg/Sodium Chloride 255 ml @ 11.399 mls/ hr CONT PRN IV PER PROTOCOL; Start 08/04/21 at 06:30 Piperacillin Sod/ Tazobactam Sod 2.25 gm/Sodium Chloride 50 ml @ 100 mls/hr Q8HRS IV ; Start 08/04/21 at 08:00 Vancomycin HCl (Vanco Per Pharmacy) 1 each PRN DAILY PRN MC SEE COMMENTS; Start 08/04/21 at 08:00 Famotidine (Pepcid Vial) 20 mg QODAY IVP ; Start 08/04/21 at 09:00 Vancomycin HCl (Vanco Per Pharmacy) 1 each PRN DAILY PRN MC SEE COMMENTS; Start 08/04/21 at 08:00; Status UNV Piperacillin Sod/ Tazobactam Sod 2.25 gm/Sodium Chloride 50 ml @ 100 mls/hr Q6HRS IV ; Start 08/04/21 at 12:00; Status UNV Ciprofloxacin/ Dextrose 200 ml @ 200 mls/hr DAILY IV ; Start 08/04/21 at 09:00 Active Scripts Active Reported Tums (Calcium Carbonate) 200 Mg Tab.chew 400 Mg PO HS Sensipar (Cinacalcet Hcl) 60 Mg Tablet 1 Tab PO DAILY 30 Days Ferric Citrate 210 Mg Tablet 2 Tab PO TID 30 Days Lasix (Furosemide) 40 Mg Tablet 40 Mg PO BID Renagel (Sevelamer Hcl) 800 Mg Tablet 2 Tab PO TIDWMEALS Kapspargo Sprinkle (Metoprolol Succinate) 50 Mg Cap.spr.24 50 Mg PO DAILY Vitals/I & O Vital Sign - Last 24 Hours 08/03/21 08/03/21 08/03/21 08/03/21 11:00 11:13 11:28 11:43 Temp 101.9 101.9 Pulse 145 144 138 140 Resp 20 16 16 16 B/P (MAP) 97/50 (66) 98/45 (62) 108/52 (70) 118/106 (110) Pulse Ox 94 96 96 95 O2 Delivery Nasal Cannula Nasal Cannula Nasal Cannula Nasal Cannula O2 Flow Rate 4.0 4.0 4.0 4.0 08/03/21 08/03/21 08/03/21 08/03/21 11:58 12:03 12:13 12:18 Pulse 138 142 146 146 Resp 16 15 15 15 B/P (MAP) 95/51 (66) 118/58 (78) 159/62 (94) 152/65 (94) Pulse Ox 92 100 99 99 O2 Delivery NonRebreather Mask Ventilator Ventilator Ventilator O2 Flow Rate 15.0 08/03/21 08/03/21 08/03/21 08/03/21 12:20 12:23 12:28 12:53 Pulse 146 146 146 Resp 15 15 B/P (MAP) 148/63 (91) 154/68 (96) 116/58 (77) Pulse Ox 100 99 99 97 O2 Delivery Ventilator Ventilator Ventilator Ventilator 08/03/21 08/03/21 08/03/21 08/03/21 13:23 13:30 13:58 14:13 Pulse 136 138 136 B/P (MAP) 86/47 (60) 92/56 (68) 54/39 (44) Pulse Ox 97 100 97 97 O2 Delivery Ventilator Ventilator Ventilator Ventilator 08/03/21 08/03/21 08/03/21 08/03/21 14:23 14:33 14:43 14:45 Pulse 132 130 126 B/P (MAP) 70/46 (54) 80/47 (58) 84/49 (61) Pulse Ox 97 97 97 O2 Delivery Ventilator Ventilator Ventilator Mechanical Ventilator 08/03/21 08/03/21 08/03/21 08/03/21 14:45 14:48 15:00 15:15 Temp 99.1 99.1 Pulse 120 124 120 120 Resp 18 18 18 B/P (MAP) 66/46 82/66 (71) 64/44 72/43 Pulse Ox 100 97 99 100 O2 Delivery Ventilator Ventilator Ventilator Ventilator 08/03/21 08/03/21 08/03/21 08/03/21 15:30 15:30 15:45 16:00 Pulse 118 116 Resp 18 18 B/P (MAP) 71/48 65/47 Pulse Ox 100 100 99 O2 Delivery Ventilator Ventilator Ventilator Mechanical Ventilator 08/03/21 08/03/21 08/03/21 08/03/21 16:00 16:15 16:30 16:45 Pulse 118 118 118 120 Resp 18 18 18 18 B/P (MAP) 75/50 76/52 90/59 88/56 Pulse Ox 100 100 100 100 O2 Delivery Ventilator Ventilator Ventilator Ventilator 08/03/21 08/03/21 08/03/21 08/03/21 17:00 17:15 17:30 17:40 Pulse 120 118 118 Resp 18 18 18 B/P (MAP) 68/47 65/46 74/51 Pulse Ox 100 100 99 100 O2 Delivery Ventilator Ventilator Ventilator Ventilator 08/03/21 08/03/21 08/03/21 08/03/21 17:45 18:00 18:15 18:30 Pulse 118 120 120 118 Resp 18 18 18 18 B/P (MAP) 74/49 76/51 75/48 74/48 Pulse Ox 99 99 99 99 O2 Delivery Ventilator Ventilator Ventilator Ventilator 08/03/21 08/03/21 08/03/21 08/03/21 18:45 19:00 19:30 19:33 Pulse 120 122 122 Resp 18 26 20 B/P (MAP) 78/46 77/46 71/46 Pulse Ox 99 100 100 100 O2 Delivery Ventilator Ventilator Ventilator Ventilator 08/03/21 08/03/21 08/03/21 08/03/21 19:45 19:58 20:00 20:00 Temp 103.4 103.4 Pulse 122 125 Resp 20 24 20 B/P (MAP) 77/44 74/47 Pulse Ox 100 99 100 O2 Delivery Ventilator Ventilator Mechanical Ventilator Ventilator 08/03/21 08/03/21 08/03/21 08/03/21 20:15 20:30 20:45 21:00 Temp 103.3 103.3 Pulse 120 122 122 122 Resp 20 20 20 20 B/P (MAP) 70/47 79/54 81/50 89/53 Pulse Ox 100 100 100 100 O2 Delivery Ventilator Ventilator Ventilator Ventilator 108/03/21 08/03/21 08/03/21 21:15 21:30 22:00 23:20 Pulse 124 118 117 Resp 20 18 18 B/P (MAP) 70/47 95/53 87/54 Pulse Ox 100 100 100 99 O2 Delivery Ventilator Ventilator Ventilator Ventilator 08/03/21 08/04/21 08/04/21 08/04/21 23:59 02:42 03:44 04:00 Resp 24 Pulse Ox 98 100 O2 Delivery Mechanical Ventilator Ventilator Ventilator Mechanical Ventilator 08/04/21 07:48 Pulse Ox 98 O2 Delivery Ventilator Intake and Output 08/03/21 08/03/21 08/04/21 15:00 23:00 07:00 Intake Total 1600 ml 66.91 ml Output Total 20 ml 310 ml Balance 1600 ml 46.91 ml -310 ml Justicifation of Admission Dx: Justifications for Admission: Justification of Admission Dx: N/A REID HERNANDEZ MD Aug 04, 2021 08:29
[2021-08-04 08:37] LABS: FIO2 ABG 45/VENT
[2021-08-04] MEDS ORDERED: CIPROFLOXACIN 400MG PREMIX 200 ML IV SCH (09:00)
[2021-08-04] MEDS: CHLORHEXIDINE 0.12% 15 ML MOUTHWASH. MM SCH (09:00)
[2021-08-04 09:04] LABS: BASO # 0.2 x10^3/uL (0.0-0.2); BASO % 1 % (0-3); EOS % 0 % (0-3); HEMATOCRIT 47.1 % (39.0-53.0); HEMOGLOBIN 15.2 g/dL (13.0-17.5); LYMPH # 1.2 x10^3/uL (1.0-4.8); LYMPH % 4 % (24-48); MEAN CORPUSCULAR HEMOGLOBIN 32 pg (25-35); MEAN CORPUSCULAR HGB CONC 32 g/dL (31-37); MEAN CORPUSCULAR VOLUME 100 fL (79-100); MONO # 3.4 x10^3/uL (0.0-1.1); MONO % 11 % (0-9); NEUT # 26.3 x10^3/uL (1.8-7.7); NEUT % 84 % (31-73); PLATELET COUNT 153 x10^3/uL (140-400); RED CELL DISTRIBUTION WIDTH 17.4 % (11.5-14.5); WHITE BLOOD COUNT 31.1 x10^3/uL (4.0-11.0)
[2021-08-04 09:06] LABS: ALBUMIN 2.8 g/dL (3.4-5.0); ALBUMIN/GLOBULIN RATIO 0.5 (1.0-1.7); CALCIUM 7.7 mg/dL (8.5-10.1); CREATININE 6.9 mg/dL (0.7-1.3); GFR 8.3; MAGNESIUM 1.7 mg/dL (1.8-2.4); PHOSPHORUS 5.2 mg/dL (2.6-4.7); POTASSIUM 5.1 mmol/L (3.5-5.1); TOTAL BILIRUBIN 0.6 mg/dL (0.2-1.0); TOTAL PROTEIN 8.6 g/dL (6.4-8.2)
[2021-08-04] MEDS ORDERED: LIDOCAINE 1% PF 5 ML VIAL. INJ ONE (09:30)
--- NOTE | 2021-08-04 10:04 | RAD ---
Site ID: [id number] EXAMINATION: XR CHEST 1V. HISTORY: 56 years Male Reason: CENTRAL LINE PLACEMENT at bedside with ultrasound guidance: . . COMPARISON: August 03, 2021. Findings: The newly placed the right the subclavian line is a projecting over the upper left side asp ect of the chest probably within the left subclavian vein. This may indicate central stenosis in the veins. The lungs demonstrate interstitial infiltrates. ET tube and NG tube are in place.. The heart s ize is normal. There is no effusion or pneumothorax. The mediastinum and galileo appear unremarkable. Impression: The newly placed right subclavian venous line crosses to the left side with the tip proje cting at the left subclavian vein level. The patient will be brought to IR angiography suite for veno gram and adjustment. Electronically signed by: Oc Patricia MD (08/04/2021 10:01 AM) [id number]
[2021-08-04] MEDS: PIPERACILLIN/TAZOBACTAM 2.25 GM in IV NORMAL SALINE 50ML 50 ML IV SCH ×3 (10:35→22:15)
--- NOTE | 2021-08-04 10:35 | NUR ---
SS following for discharge planning. SS reviewed pt chart and discussed with pt RN. Pt is from home with mother and is currently on the vent at 35%. COVID19 negative. Pt had CVA. Pt has outpatient hemodialysis at [facility] ; fax [phone], Monday, , and Monday. Pt on Fentanyl, Versed, Levophed, and Vasopressin. Pt on Vancomycin, IV Cipro, and IV Zosyn. Not ready. SS will continue to follow for discharge planning.
[2021-08-04] MEDS: FAMOTIDINE 20 MG/2 ML VIAL IVP SCH (10:36)
[2021-08-04 10:37] LABS: % BANDS 27 % (0-9); % EOS 1 % (0-5); % LYMPHS 6 % (24-48); % MONOS 13 % (0-10); % SEGS 53 % (35-66)
[2021-08-04 10:38] LABS: PLT ESTIMATE ADEQUATE (ADEQUATE)
--- NOTE | 2021-08-04 11:39 | RAD ---
EXAMINATION: 1. Ultrasound-guided vascular access into the right internal jugular vein (67624) 2. NON-TUNNELED CENTRAL VENOUS CATHETER PLACEMENT (with ultrasound guidance into the right subclavian vein). (CPT 55583, 13343). HISTORY: Hypotension requiring central venous catheter, with unsuccessful attempt at bedside SEDATION: None. CONSENT: Informed consent was obtained. The risks, benefits, potential complications and alternatives were reviewed and all questions answered. ESTIMATED BLOOD LOSS: Less than 20 mL. COMPLICATIONS: None. PROCEDURE: Prior to beginning the procedure, [place] Protocol was used to confirm the patient's identity and p lanned procedure. Maximum sterile barriers including cap, mask, hand hygiene, sterile gloves, steril e gown, large sterile drape and cutaneous antisepsis were used. The skin was sterilely prepped, draped utilizing maximal barrier technique and then infiltrated with lidocaine. Ultrasound-guided access into the right internal jugular vein: The right IJ vein was evaluated by ultrasound. An image of the patent vessel was recorded and saved to PACS. After sterile prep, this vessel was accessed with a micropuncture needle using real-time ul trasound guidance. A guidewire and catheter were then passed. Unfortunately the guidewire was coiling in the vein at the level of the clavicle which may suggest the high-grade stenosis or occlusion at the lower aspect of the right the internal jugular vein. Ultrasound-guided access into the right subclavian vein: After unsuccessful passage of the wire into the right internal jugular vein distally, the right subcl all vein is evaluated. The right subclavian vein was evaluated by ultrasound. An image of the powell nt vessel was recorded and saved to PACS. After sterile prep, this vessel was accessed with a microp uncture needle using real-time ultrasound guidance. Guidewire is passed the through the right subclavian vein. After dilating the tract, a central venous catheter was inserted over a guidewire. The catheter was flushed and secured in place. A sterile dressing was applied. FINDINGS: Ultrasound demonstrates a patent subclavian vein. The right internal jugular vein appears t o be occluded. No immediate complications. IMPRESSION: 1. Successful non-tunneled central venous triple-lumen catheter placement. 2. Confirmation of good catheter tip position around the cavoatrial junction with a chest x-ray is Ne eded before the catheter can be used. Electronically signed by: Oc Patricia MD (08/04/2021 11:37 AM) [id number]
[2021-08-04] MEDS: MIDAZOLAM 100mg/100ml NS BAG 100 ML IV PRN (11:56)
[2021-08-04] MEDS ORDERED: PIPERACILLIN/TAZOBACTAM 2.25 GM in IV NORMAL SALINE 50ML 50 ML IV SCH (12:00)
--- NOTE | 2021-08-04 12:05 | PDOC2 ---
CONSULT Date of Consult Date of Consult DATE: 08/04/21 TIME: 11:56 Reason for Consult Reason for Consult: ESRD Referring Physician Referring Physician: DIONISIO Identification/Chief Complaint Chief Complaint FOUND DOWN Source Source: Chart review History of Present Illness Reason for Visit: THIS IS A 56 YR OLD WITH ESRD DUE TO DM. HAS OP HD ON TTS. WENT TO HIS [place] YESTERDAY. HE WAS LATER FOUND DOWN IN HIS DRIVEWAY UNRESPONSIVE. HE WAS OBSERVED TO HAVE A LEFT SIDED HEMIPARESIS. HE DEVELOPED SOME BLEEDING FROM HIS MOUTH, HE WAS THEN INTUBATED TO PROTECT HIS AIRWAY. PT IS BEING EVALUATED BY NEUROLOGY. HE ALSO APPEARS TO BE SEPTIC WITH LEUCOCYTOSIS AND VERY INFECTED LOOKING URINE. HIS BLOOD CULTURES HAVE SINCE BEEN POSITIVE. HE IS NOW CRITICALLY ILL IN THE ICU Past Medical History Cardiovascular: CHF (Ischemic cardiomyopathy) Pulmonary: COPD CENTRAL NERVOUS SYSTEM: Other GI: GI bleed Heme/Onc: Anemia NOS Hepatobiliary: Hep A/B/C Psych: No pertinent hx Rheumatologic: No pertinent hx Infectious disease: Other Renal/: Chronic renal failure (Dialysis Monday) Endocrine: Hypothyroidism, Hyperparathyroidism Past Surgical History Past Surgical History: Pacemaker, Hernia Repair (Inguinal with mesh), Other (Coiling for GI bleed in 2019, pericardial window, dialysis catheter placement, peritoneal dialysis catheter insertion and removal, suprapubic catheter) Family History Family History: Heart Disease Social History ALCOHOL: none Drugs: None Lives: with Family Current Problem List Problem List Problems Medical Problems: (1) Hypoxia Status: Acute (2) Respiratory failure Status: Acute (3) Sepsis Status: Acute (4) Stroke Status: Acute (5) UTI (urinary tract infection) Status: Acute Current Medications Current Medications Current Medications Sodium Chloride 1,000 ml @ 1,000 mls/hr 1X ONCE IV Last administered on 08/03/21at 11:26; Start 08/03/21 at 11:15; Stop 08/03/21 at 12:14; Status DC Piperacillin Sod/ Tazobactam Sod 4.5 gm/Sodium Chloride 100 ml @ 200 mls/hr 1X ONCE IV Last administered on 08/03/21at 11:26; Start 08/03/21 at 11:15; Stop 08/03/21 at 11:44; Status DC Vancomycin HCl 1.5 gm/Sodium Chloride 500 ml @ 250 mls/hr 1X ONCE IV Last administered on 08/03/21at 12:00; Start 08/03/21 at 12:00; Stop 08/03/21 at 13:59; Status DC Iohexol (Omnipaque 300 Mg/ml) 75 ml 1X ONCE IV Last administered on 08/03/21at 11:29; Start 08/03/21 at 11:15; Stop 08/03/21 at 11:16; Status DC Info (CONTRAST GIVEN -- Rx MONITORING) 1 each PRN DAILY PRN MC SEE COMMENTS; Start 08/03/21 at 11:15; Stop 08/05/21 at 11:14 Fentanyl Citrate 30 ml @ 2.5 mls/hr CONT PRN IV SEE PROTOCOL; Start 08/03/21 at 12:15; Status Cancel Propofol 100 ml @ 2.235 mls/ hr CONT PRN IV PER PROTOCOL Last administered on 08/03/21at 12:31; Start 08/03/21 at 12:15; Stop 08/04/21 at 07:38; Status DC Chlorhexidine Gluconate (Peridex) 15 ml BID MM ; Start 08/03/21 at 21:00; Status Cancel Glycerin/ Hypromellose/ Polyethylene (Artificial Tears) 1 drop PRN Q1HR PRN OU DRY EYE; Start 08/03/21 at 12:15; Stop 08/03/21 at 21:15; Status DC Dexmedetomidine HCl 400 mcg/ Sodium Chloride 100 ml @ 3.725 mls/ hr CONT PRN IV PER PROTOCOL; Start 08/03/21 at 12:15; Stop 08/03/21 at 21:15; Status DC Midazolam HCl (Versed) 5 mg PRN 1X PRN IVP VENT INDUCTION Last administered on 08/03/21at 14:12; Start 08/03/21 at 12:15; Stop 08/03/21 at 14:12; Status DC Etomidate (Amidate) 10 mg 1X ONCE IV Last administered on 08/03/21at 12:48; Start 08/03/21 at 12:45; Stop 08/03/21 at 12:46; Status DC Rocuronium [place] (Zemuron) 100 mg 1X ONCE IV Last administered on 08/03/21at 12:45; Start 08/03/21 at 12:45; Stop 08/03/21 at 12:46; Status DC Sodium Chloride 250 ml @ 250 mls/hr 1X ONCE IV Last administered on 08/03/21at 14:21; Start 08/03/21 at 14:30; Stop 08/03/21 at 15:29; Status DC Fentanyl Citrate 30 ml @ 2.5 mls/hr CONT PRN IV SEE PROTOCOL Last administered on 08/04/21at 03:14; Start 08/03/21 at 15:00 Midazolam HCl 100 ml @ 1 mls/hr CONT PRN IV SEE PROTOCOL Last administered on 08/03/21at 15:23; Start 08/03/21 at 15:00 Propofol 100 ml @ 2.235 mls/ hr CONT PRN IV PER PROTOCOL; Start 08/03/21 at 15:00 Vecuronium [place] (Norcuron Bolus) 6 mg PRN 1X PRN IV VENT INDUCTION; Start 08/03/21 at 15:00; Stop 08/04/21 at 14:59 Chlorhexidine Gluconate (Peridex) 15 ml BID MM ; Start 08/03/21 at 21:00 Glycerin/ Hypromellose/ Polyethylene (Artificial Tears) 1 drop PRN Q1HR PRN OU DRY EYE; Start 08/03/21 at 15:00 Dexmedetomidine HCl 400 mcg/ Sodium Chloride 100 ml @ 3.725 mls/ hr CONT PRN IV PER PROTOCOL; Start 08/03/21 at 15:00 Midazolam HCl (Versed) 5 mg PRN 1X PRN IVP VENT INDUCTION; Start 08/03/21 at 15:00; Stop 08/04/21 at 14:59 Sodium Chloride 500 ml @ 500 mls/hr 1X PRN PRN IV SEE COMMENTS; Start 08/03/21 at 15:00 Atropine Sulfate (ATROPINE 0.5mg SYRINGE) 0.5 mg PRN Q5MIN PRN IV SEE COMMENTS; Start 08/03/21 at 15:00 Famotidine (Pepcid Vial) 20 mg BID IVP Last administered on 08/03/21at 21:00; Start 08/03/21 at 21:00; Stop 08/04/21 at 07:59; Status DC Norepinephrine Bitartrate 8 mg/ Dextrose 258 ml @ 14.416 mls/ hr CONT PRN IV PER PROTOCOL Last administered on 08/04/21at 03:52; Start 08/03/21 at 15:00; Stop 08/04/21 at 05:29; Status DC Etomidate (Amidate) 20 mg STK-MED ONCE IV ; Start 08/03/21 at 17:04; Stop 08/03/21 at 17:04; Status DC Rocuronium [place] (Zemuron) 50 mg STK-MED ONCE .ROUTE ; Start 08/03/21 at 17:04; Stop 08/03/21 at 17:04; Status DC Acetaminophen (Tylenol Supp) 650 mg PRN Q6HRS PRN ME MILD PAIN / TEMP > 100.3'F Last administered on 08/04/21at 03:50; Start 08/03/21 at 20:45 Acetaminophen (Tylenol) 650 mg PRN Q6HRS PRN PEG MILD PAIN / TEMP > 100.3'F; Start 08/03/21 at 20:45 Vasopressin 20 unit/Dextrose 101 ml @ 12 mls/hr CONT PRN IV SEE I/O RECORD Last administered on 08/04/21at 10:38; Start 08/04/21 at 03:45 Norepinephrine Bitartrate 32 mg/ Dextrose 250 ml @ 3.492 mls/ hr CONT PRN IV SEE I/O RECORD Last administered on 08/04/21at 06:37; Start 08/04/21 at 05:30 Phenylephrine HCl 50 mg/Sodium Chloride 255 ml @ 11.399 mls/ hr CONT PRN IV PER PROTOCOL; Start 08/04/21 at 06:30 Piperacillin Sod/ Tazobactam Sod 2.25 gm/Sodium Chloride 50 ml @ 100 mls/hr Q8HRS IV Last administered on 08/04/21at 10:35; Start 08/04/21 at 08:00 Vancomycin HCl (Vanco Per Pharmacy) 1 each PRN DAILY PRN MC SEE COMMENTS; Start 08/04/21 at 08:00 Famotidine (Pepcid Vial) 20 mg QODAY IVP Last administered on 08/04/21at 10:36; Start 08/04/21 at 09:00 Vancomycin HCl (Vanco Per Pharmacy) 1 each PRN DAILY PRN MC SEE COMMENTS; Start 08/04/21 at 08:00; Status UNV Piperacillin Sod/ Tazobactam Sod 2.25 gm/Sodium Chloride 50 ml @ 100 mls/hr Q6HRS IV ; Start 08/04/21 at 12:00; Status UNV Ciprofloxacin/ Dextrose 200 ml @ 200 mls/hr DAILY IV Last administered on 08/04/21at 11:38; Start 08/04/21 at 09:00 Lidocaine HCl (Xylocaine-Mpf 1% 5ml Vial) 5 ml 1X ONCE INJ ; Start 08/04/21 at 09:30; Stop 08/04/21 at 09:31; Status DC Active Scripts Active Reported Tums (Calcium Carbonate) 200 Mg Tab.chew 400 Mg PO HS Sensipar (Cinacalcet Hcl) 60 Mg Tablet 1 Tab PO DAILY 30 Days Ferric Citrate 210 Mg Tablet 2 Tab PO TID 30 Days Lasix (Furosemide) 40 Mg Tablet 40 Mg PO BID Renagel (Sevelamer Hcl) 800 Mg Tablet 2 Tab PO TIDWMEALS [place] Sprinkle (Metoprolol Succinate) 50 Mg Cap.spr.24 50 Mg PO DAILY Allergies Allergies: Coded Allergies: No Known Drug Allergies (Unverified , 02/17/21) ROS Review of System UNABLE TO OBTAIN Physical Exam General: Other (ON THE VENT) HEENT: Atraumatic, Other (ETT) Lungs: Clear to auscultation Heart: Regular rate Abdomen: Normal bowel sounds, Soft Extremities: No clubbing, No edema Skin: No breakdown Neuro: Other (SEDATED) Psych/Mental Status: Other (SEDATED) MUSCULOSKELETAL: No joint tenderness, No deformity, No swelling Vitals VITALS Vital Signs Date Time Temp Pulse Resp B/P (MAP) Pulse Ox O2 Delivery O2 Flow Rate FiO2 08/04/21 09:18 99 Ventilator 08/04/21 07:00 115 20 97/53 08/04/21 06:00 102.9 102.9 08/03/21 11:58 15.0 Labs Labs Laboratory Tests Test 08/03/21 10:59 08/03/21 11:03 08/03/21 11:05 08/03/21 11:30 Glucose (Fingerstick) 113 mg/dL (70-99) White Blood Count 4.1 x10^3/uL (4.0-11.0) Red Blood Count 3.89 x10^6/uL (4.30-5.70) Hemoglobin 12.3 g/dL (13.0-17.5) Hematocrit 37.1 % (39.0-53.0) Mean Corpuscular Volume 96 fL (79-100) Mean Corpuscular Hemoglobin 32 pg (25-35) Mean Corpuscular Hemoglobin Concent 33 g/dL (31-37) Red Cell Distribution Width 16.2 % (11.5-14.5) Platelet Count 190 x10^3/uL (140-400) Neutrophils (%) (Auto) 95 % (31-73) Lymphocytes (%) (Auto) 3 % (24-48) Monocytes (%) (Auto) 1 % (0-9) Eosinophils (%) (Auto) 1 % (0-3) Basophils (%) (Auto) 0 % (0-3) Neutrophils # (Auto) 3.9 x10^3/uL (1.8-7.7) Lymphocytes # (Auto) 0.1 x10^3/uL (1.0-4.8) Monocytes # (Auto) 0.0 x10^3/uL (0.0-1.1) Eosinophils # (Auto) 0.0 x10^3/uL (0.0-0.7) Basophils # (Auto) 0.0 x10^3/uL (0.0-0.2) Segmented Neutrophils % 65 % (35-66) Band Neutrophils % 28 % (0-9) Lymphocytes % 5 % (24-48) Monocytes % 1 % (0-10) Eosinophils % 1 % (0-5) Toxic Vacuolation Present Platelet Estimate Adequate (ADEQUATE) Giant Platelets Present Prothrombin Time 14.3 SEC (11.7-14.0) Prothromb Time International Ratio 1.1 (0.8-1.1) Activated Partial Thromboplast Time 34 SEC (24-38) Sodium Level 134 mmol/L (136-145) Potassium Level 3.5 mmol/L (3.5-5.1) Chloride Level 94 mmol/L (98-107) Carbon Dioxide Level 28 mmol/L (21-32) Anion Gap 12 (6-14) Blood Urea Nitrogen 29 mg/dL (8-26) Creatinine 5.1 mg/dL (0.7-1.3) Estimated GFR (Cockcroft-Gault) 11.8 BUN/Creatinine Ratio 6 (6-20) Glucose Level 106 mg/dL (70-99) Hemoglobin A1c 5.4 % (4.8-5.6) Lactic Acid Level 3.0 mmol/L (0.4-2.0) Calcium Level 8.6 mg/dL (8.5-10.1) Total Bilirubin 0.6 mg/dL (0.2-1.0) Aspartate Amino Transf (AST/SGOT) 89 U/L (15-37) Alanine Aminotransferase (ALT/SGPT) 133 U/L (16-63) Alkaline Phosphatase 268 U/L (46-116) Troponin I High Sensitivity 268 ng/L (4-75) Total Protein 8.8 g/dL (6.4-8.2) Albumin 3.2 g/dL (3.4-5.0) Albumin/Globulin Ratio 0.6 (1.0-1.7) Triglycerides Level 76 mg/dL (0-150) Cholesterol Level 137 mg/dL (0-200) LDL Cholesterol, Calculated 72 mg/dL (0-100) VLDL Cholesterol, Calculated 15 mg/dL (0-40) Non-HDL Cholesterol Calculated 87 mg/dL (0-129) HDL Cholesterol 50 mg/dL (40-60) Cholesterol/HDL Ratio 2.7 SARS-CoV-2 RNA (SHIRA) Negative (Negative) SARS-CoV-2 Antigen (Rapid) Negative (NEGATIVE) Urine Collection Type Unknown Urine Color Red Urine Clarity Turbid Urine pH 8.0 (<5.0-8.0) Urine Specific [place] 1.015 (1.000-1.030) Urine Protein >=300 mg/dL (NEG-TRACE) Urine Glucose (UA) Negative mg/dL (NEG) Urine Ketones (Stick) Trace mg/dL (NEG) Urine Blood Large (NEG) Urine Nitrite Negative (NEG) Urine Bilirubin Negative (NEG) Urine Urobilinogen Dipstick 0.2 mg/dL (0.2 mg/dL) Urine Leukocyte Esterase Large (NEG) Urine RBC >40 /HPF (0-2) Urine WBC Tntc /HPF (0-4) Urine Bacteria Many /HPF (0-FEW) Test 08/03/21 13:07 08/03/21 14:30 08/04/21 07:45 08/04/21 08:25 O2 Saturation 99 % (92-99) 98 % (92-99) Arterial Blood pH 7.33 (7.35-7.45) 7.26 (7.35-7.45) Arterial Blood pH (Temp corrected) 7.30 7.24 Arterial Blood pCO2 at Patient Temp 49 mmHg (35-46) 41 mmHg (35-46) Arterial Blood pCO2 (Temp correct) 53 mmHg 44 mmHg Arterial Blood pO2 at Patient Temp 237 mmHg (75-108) 104 mmHg (75-108) Arterial Blood pO2 (Temp corrected) 245 mmHg 115 mmHg Arterial Blood HCO3 25 mmol/L (21-28) 18 mmol/L (21-28) Arterial Blood Base Excess -1 mmol/L (-3-3) -9 mmol/L (-3-3) FiO2 100%vent 45/vent Lactic Acid Level 3.8 mmol/L (0.4-2.0) White Blood Count 31.1 x10^3/uL (4.0-11.0) Red Blood Count 4.70 x10^6/uL (4.30-5.70) Hemoglobin 15.2 g/dL (13.0-17.5) Hematocrit 47.1 % (39.0-53.0) Mean Corpuscular Volume 100 fL (79-100) Mean Corpuscular Hemoglobin 32 pg (25-35) Mean Corpuscular Hemoglobin Concent 32 g/dL (31-37) Red Cell Distribution Width 17.4 % (11.5-14.5) Platelet Count 153 x10^3/uL (140-400) Neutrophils (%) (Auto) 84 % (31-73) Lymphocytes (%) (Auto) 4 % (24-48) Monocytes (%) (Auto) 11 % (0-9) Eosinophils (%) (Auto) 0 % (0-3) Basophils (%) (Auto) 1 % (0-3) Neutrophils # (Auto) 26.3 x10^3/uL (1.8-7.7) Lymphocytes # (Auto) 1.2 x10^3/uL (1.0-4.8) Monocytes # (Auto) 3.4 x10^3/uL (0.0-1.1) Eosinophils # (Auto) 0.0 x10^3/uL (0.0-0.7) Basophils # (Auto) 0.2 x10^3/uL (0.0-0.2) Segmented Neutrophils % 53 % (35-66) Band Neutrophils % 27 % (0-9) Lymphocytes % 6 % (24-48) Monocytes % 13 % (0-10) Eosinophils % 1 % (0-5) Platelet Estimate Adequate (ADEQUATE) Sodium Level 134 mmol/L (136-145) Potassium Level 5.1 mmol/L (3.5-5.1) Chloride Level 96 mmol/L (98-107) Carbon Dioxide Level 19 mmol/L (21-32) Anion Gap 19 (6-14) Blood Urea Nitrogen 43 mg/dL (8-26) Creatinine 6.9 mg/dL (0.7-1.3) Estimated GFR (Cockcroft-Gault) 8.3 BUN/Creatinine Ratio 6 (6-20) Glucose Level 77 mg/dL (70-99) Calcium Level 7.7 mg/dL (8.5-10.1) Phosphorus Level 5.2 mg/dL (2.6-4.7) Magnesium Level 1.7 mg/dL (1.8-2.4) Total Bilirubin 0.6 mg/dL (0.2-1.0) Aspartate Amino Transf (AST/SGOT) 144 U/L (15-37) Alanine Aminotransferase (ALT/SGPT) 113 U/L (16-63) Alkaline Phosphatase 159 U/L (46-116) Total Protein 8.6 g/dL (6.4-8.2) Albumin 2.8 g/dL (3.4-5.0) Albumin/Globulin Ratio 0.5 (1.0-1.7) Laboratory Tests Test 08/03/21 13:07 08/03/21 14:30 08/04/21 07:45 08/04/21 08:25 O2 Saturation 99 % (92-99) 98 % (92-99) Arterial Blood pH 7.33 (7.35-7.45) 7.26 (7.35-7.45) Arterial Blood pH (Temp corrected) 7.30 7.24 Arterial Blood pCO2 at Patient Temp 49 mmHg (35-46) 41 mmHg (35-46) Arterial Blood pCO2 (Temp correct) 53 mmHg 44 mmHg Arterial Blood pO2 at Patient Temp 237 mmHg (75-108) 104 mmHg (75-108) Arterial Blood pO2 (Temp corrected) 245 mmHg 115 mmHg Arterial Blood HCO3 25 mmol/L (21-28) 18 mmol/L (21-28) Arterial Blood Base Excess -1 mmol/L (-3-3) -9 mmol/L (-3-3) FiO2 100%vent 45/vent Lactic Acid Level 3.8 mmol/L (0.4-2.0) White Blood Count 31.1 x10^3/uL (4.0-11.0) Red Blood Count 4.70 x10^6/uL (4.30-5.70) Hemoglobin 15.2 g/dL (13.0-17.5) Hematocrit 47.1 % (39.0-53.0) Mean Corpuscular Volume 100 fL (79-100) Mean Corpuscular Hemoglobin 32 pg (25-35) Mean Corpuscular Hemoglobin Concent 32 g/dL (31-37) Red Cell Distribution Width 17.4 % (11.5-14.5) Platelet Count 153 x10^3/uL (140-400) Neutrophils (%) (Auto) 84 % (31-73) Lymphocytes (%) (Auto) 4 % (24-48) Monocytes (%) (Auto) 11 % (0-9) Eosinophils (%) (Auto) 0 % (0-3) Basophils (%) (Auto) 1 % (0-3) Neutrophils # (Auto) 26.3 x10^3/uL (1.8-7.7) Lymphocytes # (Auto) 1.2 x10^3/uL (1.0-4.8) Monocytes # (Auto) 3.4 x10^3/uL (0.0-1.1) Eosinophils # (Auto) 0.0 x10^3/uL (0.0-0.7) Basophils # (Auto) 0.2 x10^3/uL (0.0-0.2) Segmented Neutrophils % 53 % (35-66) Band Neutrophils % 27 % (0-9) Lymphocytes % 6 % (24-48) Monocytes % 13 % (0-10) Eosinophils % 1 % (0-5) Platelet Estimate Adequate (ADEQUATE) Sodium Level 134 mmol/L (136-145) Potassium Level 5.1 mmol/L (3.5-5.1) Chloride Level 96 mmol/L (98-107) Carbon Dioxide Level 19 mmol/L (21-32) Anion Gap 19 (6-14) Blood Urea Nitrogen 43 mg/dL (8-26) Creatinine 6.9 mg/dL (0.7-1.3) Estimated GFR (Cockcroft-Gault) 8.3 BUN/Creatinine Ratio 6 (6-20) Glucose Level 77 mg/dL (70-99) Calcium Level 7.7 mg/dL (8.5-10.1) Phosphorus Level 5.2 mg/dL (2.6-4.7) Magnesium Level 1.7 mg/dL (1.8-2.4) Total Bilirubin 0.6 mg/dL (0.2-1.0) Aspartate Amino Transf (AST/SGOT) 144 U/L (15-37) Alanine Aminotransferase (ALT/SGPT) 113 U/L (16-63) Alkaline Phosphatase 159 U/L (46-116) Total Protein 8.6 g/dL (6.4-8.2) Albumin 2.8 g/dL (3.4-5.0) Albumin/Globulin Ratio 0.5 (1.0-1.7) Images Images EXAM: CT angiography of the head and neck with intravenous contrast. HISTORY: Stroke. TECHNIQUE: Computed tomographic images of the head and neck were obtained following the administration of intravenous contrast according to angiography protocol. Multiplanar reformatting was performed and three dimensional maximum intensity projection images were obtained. *One or more of the following individualized dose reduction techniques were utilized for this examination: 1. Automated exposure control. 2. Adjustment of the mA and/or kV according to patient size. 3. Use of iterative reconstruction technique. COMPARISON: Noncontrast head CT obtained on the same date. FINDINGS: Evaluation of the upper thorax demonstrates calcified atherosclerotic plaque involving the aortic arch and proximal left subclavian artery. There is also calcified atherosclerotic plaque at the origin of the right subclavian artery. There is no hemodynamically significant stenosis involving the arch vessel origins. There are prominent mediastinal lymph nodes. There is a 7 mm groundglass nodular opacity within the left lung apex. There are few additional peripheral groundglass opacities which are likely due to atelectasis or scarring. There are prominent collateral vessels within the right greater than left anterior chest wall. There is partially calcified atherosclerotic plaque involving the carotid bulbs and proximal internal carotid arteries. This results in less than 50 percent stenosis. There is also focal calcified plaque within the right internal carotid artery at the level of C1, resulting in approximately 50-69 percent stenosis. There is minimal atherosclerotic plaque throughout the remainder of the internal carotid arteries. No hemodynamically significant stenosis or occlusion is seen involving the cerebral arteries. There are is a dominant left vertebral artery. The distal right vertebral artery is hypoplastic. The vertebral arteries are widely patent. There is paranasal sinus mucosal thickening with small maxillary sinus mucous retention cyst. The mastoid air cells are clear. There is no neck lymphadenopathy. There are degenerative changes throughout the spine. There is cervical kyphosis centered at C5. There is multilevel cervical listhesis. The combination of degenerative changes results in mild right foraminal stenosis at C2-C3, mild bilateral foraminal stenosis at C3-C4, mild right foraminal stenosis at C4-C5, mild to moderate left foraminal and mild central canal stenosis at C5- C6, and moderate left and mild right foraminal and mild central canal stenosis at C6-C7. IMPRESSION: 1. Moderate partially calcified atherosclerotic plaque involving the carotid bulbs and proximal internal carotid arteries, with less than 50 percent stenosis. There is also focal calcified plaque within the distal right vertebral artery at the level of C1 resulting in 50-69 percent stenosis. There is no additional significant stenosis or evidence of large vessel occlusion. 2. Bilateral cerebral white matter changes, likely due to chronic small vessel disease in a patient of this age. Note is made that MRI is more sensitive for acute infarction. 3. Degenerative change involving the cervical spine, resulting in stenosis at the aforementioned levels. 4. 7 mm groundglass nodular opacity within the left lung apex. Follow-up can be performed in 6-12 months. The superimposed on upper lobe predominant atelectasis and pleural parenchymal scarring. 5. Prominent the central lymph nodes, likely reactive in etiology. Findings were discussed with Dr. Merritt in the ED at 1145 hours on 08/03/2021. PQRS Compliance Statement - Stenosis calculations for CT, MR and conventional angiography are based upon measurement of the distal ICA diameter in accordance with the NASCET methodology. Stenosis calculations for carotid ultrasound st udies are derived from validated velocity criteria which are known to correlate with the NASCET methodology. Electronically signed by: Portia Hitchcock MD (08/03/2021 11:46 AM) [id number] Site ID: [id number] EXAMINATION: XR CHEST 1V. HISTORY: 56 years Male Reason: CENTRAL LINE PLACEMENT at bedside with ultrasound guidance: . . COMPARISON: August 03, 2021. Findings: The newly placed the right the subclavian line is a projecting over the upper left side aspect of the chest probably within the left subclavian vein. This may indicate central stenosis in the veins. The lungs demonstrate interstitial infiltrates. ET tube and NG tube are in place.. The heart size is normal. There is no effusion or pneumothorax. The mediastinum and galileo appear unremarkable. Impression: The newly placed right subclavian venous line crosses to the left side with the tip projecting at the left subclavian vein level. The patient will be brought to IR angiography suite for venogram and adjustment. Electronically signed by: Olivia Patricia MD (08/04/2021 10:01 AM) [id number] DICTATED and SIGNED BY: OLIVIA PATRICIA MD DATE: 08/04/21 [id number] Assessment/Plan Assessment/Plan IMP ESRD-TTS ANEMIA DM II HTN UTI SEPSIS LEUCOCYTOSIS ENCEPHALOPATHY POSSIBLE CVA ACUTE RESP FAILURE MET AND RESP ACIDOSIS PLAN ANTIBIOTICS VENT SUPPORT PRESSORS NEEDED START NEPRO TF AND WATER FLUSHES ID EVAL PULM EVAL PLAN FOR HD TOMORROW WILL FOLLOW D/W DR MERRILL PT IS CRITICALLY ILL MARIIA VIDAL MD Aug 04, 2021 12:05
[2021-08-04] MEDS ORDERED: LIDOCAINE WITH 8.4% SOD BICARB 3 ML DISP.SYRIN. ONE (12:33)
[2021-08-04] MEDS ORDERED: IOHEXOL 240 MG/ML 50ML VIAL. ONE (12:36)
--- NOTE | 2021-08-04 13:28 | PDOC ---
PULMONARY PROGRESS NOTES DATE: 08/04/21 TIME: 13:28 Vitals Vital Signs Date Time Temp Pulse Resp B/P (MAP) Pulse Ox O2 Delivery O2 Flow Rate FiO2 08/04/21 13:20 104 20 86/59 98 Ventilator 08/04/21 06:00 102.9 102.9 08/03/21 11:58 15.0 General: Alert, No acute distress Lungs: Crackles Cardiovascular: S1, S2 Abdomen: Soft, Non-tender Extremities: No Edema Labs Laboratory Tests Test 08/03/21 10:59 08/03/21 11:03 08/03/21 11:05 08/03/21 11:30 Glucose (Fingerstick) 113 mg/dL (70-99) White Blood Count 4.1 x10^3/uL (4.0-11.0) Red Blood Count 3.89 x10^6/uL (4.30-5.70) Hemoglobin 12.3 g/dL (13.0-17.5) Hematocrit 37.1 % (39.0-53.0) Mean Corpuscular Volume 96 fL (79-100) Mean Corpuscular Hemoglobin 32 pg (25-35) Mean Corpuscular Hemoglobin Concent 33 g/dL (31-37) Red Cell Distribution Width 16.2 % (11.5-14.5) Platelet Count 190 x10^3/uL (140-400) Neutrophils (%) (Auto) 95 % (31-73) Lymphocytes (%) (Auto) 3 % (24-48) Monocytes (%) (Auto) 1 % (0-9) Eosinophils (%) (Auto) 1 % (0-3) Basophils (%) (Auto) 0 % (0-3) Neutrophils # (Auto) 3.9 x10^3/uL (1.8-7.7) Lymphocytes # (Auto) 0.1 x10^3/uL (1.0-4.8) Monocytes # (Auto) 0.0 x10^3/uL (0.0-1.1) Eosinophils # (Auto) 0.0 x10^3/uL (0.0-0.7) Basophils # (Auto) 0.0 x10^3/uL (0.0-0.2) Segmented Neutrophils % 65 % (35-66) Band Neutrophils % 28 % (0-9) Lymphocytes % 5 % (24-48) Monocytes % 1 % (0-10) Eosinophils % 1 % (0-5) Toxic Vacuolation Present Platelet Estimate Adequate (ADEQUATE) Giant Platelets Present Prothrombin Time 14.3 SEC (11.7-14.0) Prothromb Time International Ratio 1.1 (0.8-1.1) Activated Partial Thromboplast Time 34 SEC (24-38) Sodium Level 134 mmol/L (136-145) Potassium Level 3.5 mmol/L (3.5-5.1) Chloride Level 94 mmol/L (98-107) Carbon Dioxide Level 28 mmol/L (21-32) Anion Gap 12 (6-14) Blood Urea Nitrogen 29 mg/dL (8-26) Creatinine 5.1 mg/dL (0.7-1.3) Estimated GFR (Cockcroft-Gault) 11.8 BUN/Creatinine Ratio 6 (6-20) Glucose Level 106 mg/dL (70-99) Hemoglobin A1c 5.4 % (4.8-5.6) Lactic Acid Level 3.0 mmol/L (0.4-2.0) Calcium Level 8.6 mg/dL (8.5-10.1) Total Bilirubin 0.6 mg/dL (0.2-1.0) Aspartate Amino Transf (AST/SGOT) 89 U/L (15-37) Alanine Aminotransferase (ALT/SGPT) 133 U/L (16-63) Alkaline Phosphatase 268 U/L (46-116) Troponin I High Sensitivity 268 ng/L (4-75) Total Protein 8.8 g/dL (6.4-8.2) Albumin 3.2 g/dL (3.4-5.0) Albumin/Globulin Ratio 0.6 (1.0-1.7) Triglycerides Level 76 mg/dL (0-150) Cholesterol Level 137 mg/dL (0-200) LDL Cholesterol, Calculated 72 mg/dL (0-100) VLDL Cholesterol, Calculated 15 mg/dL (0-40) Non-HDL Cholesterol Calculated 87 mg/dL (0-129) HDL Cholesterol 50 mg/dL (40-60) Cholesterol/HDL Ratio 2.7 SARS-CoV-2 RNA (SHIRA) Negative (Negative) SARS-CoV-2 Antigen (Rapid) Negative (NEGATIVE) Urine Collection Type Unknown Urine Color Red Urine Clarity Turbid Urine pH 8.0 (<5.0-8.0) Urine Specific [place] 1.015 (1.000-1.030) Urine Protein >=300 mg/dL (NEG-TRACE) Urine Glucose (UA) Negative mg/dL (NEG) Urine Ketones (Stick) Trace mg/dL (NEG) Urine Blood Large (NEG) Urine Nitrite Negative (NEG) Urine Bilirubin Negative (NEG) Urine Urobilinogen Dipstick 0.2 mg/dL (0.2 mg/dL) Urine Leukocyte Esterase Large (NEG) Urine RBC >40 /HPF (0-2) Urine WBC Tntc /HPF (0-4) Urine Bacteria Many /HPF (0-FEW) Test 08/03/21 13:07 08/03/21 14:30 08/04/21 07:45 08/04/21 08:25 O2 Saturation 99 % (92-99) 98 % (92-99) Arterial Blood pH 7.33 (7.35-7.45) 7.26 (7.35-7.45) Arterial Blood pH (Temp corrected) 7.30 7.24 Arterial Blood pCO2 at Patient Temp 49 mmHg (35-46) 41 mmHg (35-46) Arterial Blood pCO2 (Temp correct) 53 mmHg 44 mmHg Arterial Blood pO2 at Patient Temp 237 mmHg (75-108) 104 mmHg (75-108) Arterial Blood pO2 (Temp corrected) 245 mmHg 115 mmHg Arterial Blood HCO3 25 mmol/L (21-28) 18 mmol/L (21-28) Arterial Blood Base Excess -1 mmol/L (-3-3) -9 mmol/L (-3-3) FiO2 100%vent 45/vent Lactic Acid Level 3.8 mmol/L (0.4-2.0) White Blood Count 31.1 x10^3/uL (4.0-11.0) Red Blood Count 4.70 x10^6/uL (4.30-5.70) Hemoglobin 15.2 g/dL (13.0-17.5) Hematocrit 47.1 % (39.0-53.0) Mean Corpuscular Volume 100 fL (79-100) Mean Corpuscular Hemoglobin 32 pg (25-35) Mean Corpuscular Hemoglobin Concent 32 g/dL (31-37) Red Cell Distribution Width 17.4 % (11.5-14.5) Platelet Count 153 x10^3/uL (140-400) Neutrophils (%) (Auto) 84 % (31-73) Lymphocytes (%) (Auto) 4 % (24-48) Monocytes (%) (Auto) 11 % (0-9) Eosinophils (%) (Auto) 0 % (0-3) Basophils (%) (Auto) 1 % (0-3) Neutrophils # (Auto) 26.3 x10^3/uL (1.8-7.7) Lymphocytes # (Auto) 1.2 x10^3/uL (1.0-4.8) Monocytes # (Auto) 3.4 x10^3/uL (0.0-1.1) Eosinophils # (Auto) 0.0 x10^3/uL (0.0-0.7) Basophils # (Auto) 0.2 x10^3/uL (0.0-0.2) Segmented Neutrophils % 53 % (35-66) Band Neutrophils % 27 % (0-9) Lymphocytes % 6 % (24-48) Monocytes % 13 % (0-10) Eosinophils % 1 % (0-5) Platelet Estimate Adequate (ADEQUATE) Sodium Level 134 mmol/L (136-145) Potassium Level 5.1 mmol/L (3.5-5.1) Chloride Level 96 mmol/L (98-107) Carbon Dioxide Level 19 mmol/L (21-32) Anion Gap 19 (6-14) Blood Urea Nitrogen 43 mg/dL (8-26) Creatinine 6.9 mg/dL (0.7-1.3) Estimated GFR (Cockcroft-Gault) 8.3 BUN/Creatinine Ratio 6 (6-20) Glucose Level 77 mg/dL (70-99) Calcium Level 7.7 mg/dL (8.5-10.1) Phosphorus Level 5.2 mg/dL (2.6-4.7) Magnesium Level 1.7 mg/dL (1.8-2.4) Total Bilirubin 0.6 mg/dL (0.2-1.0) Aspartate Amino Transf (AST/SGOT) 144 U/L (15-37) Alanine Aminotransferase (ALT/SGPT) 113 U/L (16-63) Alkaline Phosphatase 159 U/L (46-116) Total Protein 8.6 g/dL (6.4-8.2) Albumin 2.8 g/dL (3.4-5.0) Albumin/Globulin Ratio 0.5 (1.0-1.7) Laboratory Tests Test 08/03/21 14:30 08/04/21 07:45 08/04/21 08:25 Lactic Acid Level 3.8 mmol/L (0.4-2.0) O2 Saturation 98 % (92-99) Arterial Blood pH 7.26 (7.35-7.45) Arterial Blood pH (Temp corrected) 7.24 Arterial Blood pCO2 at Patient Temp 41 mmHg (35-46) Arterial Blood pCO2 (Temp correct) 44 mmHg Arterial Blood pO2 at Patient Temp 104 mmHg (75-108) Arterial Blood pO2 (Temp corrected) 115 mmHg Arterial Blood HCO3 18 mmol/L (21-28) Arterial Blood Base Excess -9 mmol/L (-3-3) FiO2 45/vent White Blood Count 31.1 x10^3/uL (4.0-11.0) Red Blood Count 4.70 x10^6/uL (4.30-5.70) Hemoglobin 15.2 g/dL (13.0-17.5) Hematocrit 47.1 % (39.0-53.0) Mean Corpuscular Volume 100 fL (79-100) Mean Corpuscular Hemoglobin 32 pg (25-35) Mean Corpuscular Hemoglobin Concent 32 g/dL (31-37) Red Cell Distribution Width 17.4 % (11.5-14.5) Platelet Count 153 x10^3/uL (140-400) Neutrophils (%) (Auto) 84 % (31-73) Lymphocytes (%) (Auto) 4 % (24-48) Monocytes (%) (Auto) 11 % (0-9) Eosinophils (%) (Auto) 0 % (0-3) Basophils (%) (Auto) 1 % (0-3) Neutrophils # (Auto) 26.3 x10^3/uL (1.8-7.7) Lymphocytes # (Auto) 1.2 x10^3/uL (1.0-4.8) Monocytes # (Auto) 3.4 x10^3/uL (0.0-1.1) Eosinophils # (Auto) 0.0 x10^3/uL (0.0-0.7) Basophils # (Auto) 0.2 x10^3/uL (0.0-0.2) Segmented Neutrophils % 53 % (35-66) Band Neutrophils % 27 % (0-9) Lymphocytes % 6 % (24-48) Monocytes % 13 % (0-10) Eosinophils % 1 % (0-5) Platelet Estimate Adequate (ADEQUATE) Sodium Level 134 mmol/L (136-145) Potassium Level 5.1 mmol/L (3.5-5.1) Chloride Level 96 mmol/L (98-107) Carbon Dioxide Level 19 mmol/L (21-32) Anion Gap 19 (6-14) Blood Urea Nitrogen 43 mg/dL (8-26) Creatinine 6.9 mg/dL (0.7-1.3) Estimated GFR (Cockcroft-Gault) 8.3 BUN/Creatinine Ratio 6 (6-20) Glucose Level 77 mg/dL (70-99) Calcium Level 7.7 mg/dL (8.5-10.1) Phosphorus Level 5.2 mg/dL (2.6-4.7) Magnesium Level 1.7 mg/dL (1.8-2.4) Total Bilirubin 0.6 mg/dL (0.2-1.0) Aspartate Amino Transf (AST/SGOT) 144 U/L (15-37) Alanine Aminotransferase (ALT/SGPT) 113 U/L (16-63) Alkaline Phosphatase 159 U/L (46-116) Total Protein 8.6 g/dL (6.4-8.2) Albumin 2.8 g/dL (3.4-5.0) Albumin/Globulin Ratio 0.5 (1.0-1.7) Medications Active Scripts Medications Dose Route/Sig Max Daily Dose Days Date Category Tums (Calcium Carbonate) 200 Mg Tab.chew 400 Mg PO HS 04/19/21 Reported Sensipar (Cinacalcet Hcl) 60 Mg Tablet 1 Tab PO DAILY 30 04/19/21 Reported Ferric Citrate 210 Mg Tablet 2 Tab PO TID 30 04/19/21 Reported Lasix (Furosemide) 40 Mg Tablet 40 Mg PO BID 04/19/21 Reported Renagel (Sevelamer Hcl) 800 Mg Tablet 2 Tab PO TIDWMEALS 01/18/21 Reported Kapspargo Sprinkle (Metoprolol Succinate) 50 Mg Cap.spr.24 50 Mg PO DAILY 01/18/21 Reported Impression . Note dictated Respiratory failure multifactorial Septic shock Continue current support CAYDEN MERRILL MD Aug 04, 2021 13:28
[2021-08-04] MEDS ORDERED: IOHEXOL 300 MG/ML 50 ML VIAL. IART ONE (13:30)
[2021-08-04] MEDS ORDERED: LIDOCAINE WITH 8.4% SOD BICARB 3 ML DISP.SYRIN. IJ ONE (13:30)
[2021-08-04] MEDS: VANCOMYCIN PER PHARMACY MC PRN (16:50)
--- NOTE | 2021-08-04 16:51 | NUR ---
Pharmacy Vancomycin Dosing Note S:Consulted to monitor and dose vancomycin started 08/03/21. O:PERFECTOFELICE Franks is a 56 year old M with bacteremia, sepsis. Height: 5 feet, 5 inches Weight: 75.7 kg Dosing Weight: Actual Other Antibiotics: ZOSYN 2.25G IV Q8HRS LABS: Last BUN: 43 Last Creatinine: 6.9 Creatinine Clearance: ESRD on HD TTS Last WBC: 38.1 Last Procalcitonin: - Tmax (past 24 hours): 102.9 Microbiology: BLOOD CX (08/03): GPC IN 4/4 BOTTLES, 3 SETS I/O: 1666/330 A: Patient requires vancomycin for sepsis from bacteremia, goal level 15-20 mcg/ml. Patient's is ESRD on HD TTS. He received vancomycin 1500 mg IV x 1 dose in ER on 08/03. P: 1. No vancomycin dose today due to HD scheduled in AM 2. Draw pre-HD random level on 08/05/21 at 0600 3. Pharmacy will continue to monitor, follow and adjust therapy as needed. TORREY COLLINS [facility], 08/04/21 [id number]
--- NOTE | 2021-08-04 17:21 | CONS ---
DATE OF CONSULTATION: 08/04/2021 ATTENDING PHYSICIAN: Gabe Mace DO CONSULTING PHYSICIAN: Yodit Villalobos MD REASON FOR CONSULTATION: The patient is seen in pulmonary consultation at the request of Dr. Mace for respiratory failure, sepsis, vent management. HISTORY OF PRESENT ILLNESS: The patient is a 56-year-old that has a history of end-stage renal disease. He went to dialysis yesterday, came home early, not feeling well and was found unresponsive in his driveway and 911 was summoned. The patient currently is having some left sided weakness. He was a candidate initially for alteplase. Unfortunately, he developed hypotension and respiratory failure, was intubated. The alteplase was not given. The patient has been seen in consult by Dr. Molina, neurologist. His assessment is possible stroke with hypertension, respiratory failure, sepsis. He recommended to treat the underlying sepsis. Hold off on any interventions at this time. MRI will be obtained in due time. The patient is currently on assist control ventilation, tidal volume of 500, PEEP of 5, 45% FiO2. He is receiving vasopressin, norepinephrine. He has been seen by Infectious Disease Service and is started on empiric antibiotics with vancomycin, Zosyn and ciprofloxacin. He was likewise seen by Dr. Go from Nephrology who recommended continue hemodialysis tomorrow. For now, we will continue current support with vents, pressors, IV fluids. PAST MEDICAL HISTORY: 1. End-stage renal disease, on hemodialysis. 2. Previous pacemaker implantation. 3. Chronic heart failure. 4. Hypertension. 5. COPD. 6. Gastroesophageal reflux. 7. Benign prostatic hypertrophy. 8. History of hepatitis, depression, and anemia. SOCIAL HISTORY: He smokes. REVIEW OF SYSTEMS: Unobtainable secondary to underlying disorder. FAMILY HISTORY: Diabetes. CURRENT MEDICATIONS: List was reviewed. ALLERGIES: No known drug allergies. PHYSICAL EXAMINATION: VITAL SIGNS: Since admission, the patient had a fever of 103.4. He is currently on assist control ventilation, on norepinephrine and vasopressin. HEENT: Eyes: The sclerae were nonicteric. NECK: Jugular venous distention could not be assessed secondary to body habitus. CHEST: Full expansion. LUNGS: Crackles throughout both lung payne. CARDIOVASCULAR: Regular rate and rhythm with S1, S2, no S3. ABDOMEN: Soft. EXTREMITIES: No clubbing, cyanosis or edema. NEUROLOGIC: The patient was sedated. LABORATORY DATA: SARS-CoV-2 testing was negative. Arterial blood gas; pH of 7.26, PaCO2 of 41, pO2 of 104, bicarbonate was 18. White count yesterday was 4, today is 31,000. INR was 1.1. Electrolytes were deranged. BUN was elevated, creatinine was elevated. AST and ALT were elevated. Phosphorus was high. Magnesium was low. Lactic acid level was slightly elevated at 3.8. Chest x-ray was reviewed. There were bilateral pulmonary infiltrates. The patient had CTA of head and neck, which revealed bilateral cerebral white matter changes. There was ground glass opacities in the lung apices, moderate partially calcified plaque involving the carotid bulb. IMPRESSION: 1. Acute hypoxemic respiratory failure, multifactorial. 2. Septic shock. 3. Fever related to above. 4. SARS-CoV-2 testing negative. 5. End-stage renal disease, on hemodialysis. 6. Possible stroke. 7. Other comorbidities including end-stage renal disease, hypertension, chronic obstructive pulmonary disease, gastroesophageal reflux, ischemic cardiomyopathy. PLAN: 1. Continue current support with mechanical ventilation. 2. Adjust minute ventilation to normalize pH. 3. Hemodialysis per Nephrology. 4. Empiric antibiotics. 5. Follow blood cultures. 6. Nutritional support. 7. Replace magnesium. I do appreciate the privilege in sharing in the patient's care. Critical care time of 55 minutes, reviewing the current documentation, examining the patient, reviewing the imaging studies, labs, formulating the impression and plan. BHAVIK DR: Juan TID: [id number]
[2021-08-04] MEDS: PHENYLEPHRINE INJ 50 MG in IV NORMAL SALINE 250ML 250 ML IV PRN (17:56)
[2021-08-05] VITALS (40 sets, daily range): BP systolic 85–204; BP diastolic 41–64
[2021-08-05] MEDS: NOREPINEPHRINE VIAL 32 MG in IV D5W 250ML IV PRN ×3 (04:26→20:44)
--- NOTE | 2021-08-05 05:20 | RAD ---
XR CHEST 1V History: Reason: vent management 115 / Spl. Instructions: / History: Comparison: August 04, 2021 Findings: Diffuse interstitial thickening with ill-defined opacities, unchanged. No pleural effusion. No pneumo thorax. Stable tracheal tube, enteric tube and right IJ central line. Unchanged heart size. Impression: 1. Stable appearance of the chest compared to prior. Electronically signed by: Davis Livingston DO (08/05/2021 5:17 AM) [facility] [place]
[2021-08-05] MEDS: PHENYLEPHRINE INJ 50 MG in IV NORMAL SALINE 250ML 250 ML IV PRN (05:38)
[2021-08-05] MEDS ORDERED: VANCOMYCIN RANDOM LEVEL. MC ONE (06:00)
[2021-08-05] MEDS: PIPERACILLIN/TAZOBACTAM 2.25 GM in IV NORMAL SALINE 50ML 50 ML IV SCH ×3 (06:14→21:48)
[2021-08-05] MEDS: VASOPRESSIN - VASOSTRICT 20 UNIT in IV DEXTROSE 5% 100ML 100 ML IV PRN ×2 (06:23→15:15)
[2021-08-05 06:43] LABS: HEMATOCRIT 37.6 % (39.0-53.0); HEMOGLOBIN 12.2 g/dL (13.0-17.5); RED BLOOD COUNT 3.8 x10^6/uL (4.30-5.70); RED CELL DISTRIBUTION WIDTH 17.4 % (11.5-14.5)
[2021-08-05 06:58] LABS: CALCIUM 6.6 mg/dL (8.5-10.1); CREATININE 8.9 mg/dL (0.7-1.3); GFR 6.2
[2021-08-05 07:03] LABS: POTASSIUM 6.9 mmol/L (3.5-5.1)
--- NOTE | 2021-08-05 08:22 | PDOC ---
PULMONARY PROGRESS NOTES DATE: 08/05/21 TIME: 08:22 Subjective Patient sedated, currently requiring vasopressin and norepinephrine, 35% FiO2 5 of PEEP Vitals Vital Signs Date Time Temp Pulse Resp B/P (MAP) Pulse Ox O2 Delivery O2 Flow Rate FiO2 08/05/21 08:16 100 Ventilator 08/05/21 06:05 24 08/05/21 06:00 100.4 98 118/50 100.4 08/05/21 05:37 15.0 Lungs: Crackles Cardiovascular: S1, S2 Abdomen: Soft, Non-tender Extremities: No Edema Labs Laboratory Tests Test 08/03/21 10:59 08/03/21 11:03 08/03/21 11:05 08/03/21 11:30 Glucose (Fingerstick) 113 mg/dL (70-99) White Blood Count 4.1 x10^3/uL (4.0-11.0) Red Blood Count 3.89 x10^6/uL (4.30-5.70) Hemoglobin 12.3 g/dL (13.0-17.5) Hematocrit 37.1 % (39.0-53.0) Mean Corpuscular Volume 96 fL (79-100) Mean Corpuscular Hemoglobin 32 pg (25-35) Mean Corpuscular Hemoglobin Concent 33 g/dL (31-37) Red Cell Distribution Width 16.2 % (11.5-14.5) Platelet Count 190 x10^3/uL (140-400) Neutrophils (%) (Auto) 95 % (31-73) Lymphocytes (%) (Auto) 3 % (24-48) Monocytes (%) (Auto) 1 % (0-9) Eosinophils (%) (Auto) 1 % (0-3) Basophils (%) (Auto) 0 % (0-3) Neutrophils # (Auto) 3.9 x10^3/uL (1.8-7.7) Lymphocytes # (Auto) 0.1 x10^3/uL (1.0-4.8) Monocytes # (Auto) 0.0 x10^3/uL (0.0-1.1) Eosinophils # (Auto) 0.0 x10^3/uL (0.0-0.7) Basophils # (Auto) 0.0 x10^3/uL (0.0-0.2) Segmented Neutrophils % 65 % (35-66) Band Neutrophils % 28 % (0-9) Lymphocytes % 5 % (24-48) Monocytes % 1 % (0-10) Eosinophils % 1 % (0-5) Toxic Vacuolation Present Platelet Estimate Adequate (ADEQUATE) Giant Platelets Present Prothrombin Time 14.3 SEC (11.7-14.0) Prothromb Time International Ratio 1.1 (0.8-1.1) Activated Partial Thromboplast Time 34 SEC (24-38) Sodium Level 134 mmol/L (136-145) Potassium Level 3.5 mmol/L (3.5-5.1) Chloride Level 94 mmol/L (98-107) Carbon Dioxide Level 28 mmol/L (21-32) Anion Gap 12 (6-14) Blood Urea Nitrogen 29 mg/dL (8-26) Creatinine 5.1 mg/dL (0.7-1.3) Estimated GFR (Cockcroft-Gault) 11.8 BUN/Creatinine Ratio 6 (6-20) Glucose Level 106 mg/dL (70-99) Hemoglobin A1c 5.4 % (4.8-5.6) Lactic Acid Level 3.0 mmol/L (0.4-2.0) Calcium Level 8.6 mg/dL (8.5-10.1) Total Bilirubin 0.6 mg/dL (0.2-1.0) Aspartate Amino Transf (AST/SGOT) 89 U/L (15-37) Alanine Aminotransferase (ALT/SGPT) 133 U/L (16-63) Alkaline Phosphatase 268 U/L (46-116) Troponin I High Sensitivity 268 ng/L (4-75) Total Protein 8.8 g/dL (6.4-8.2) Albumin 3.2 g/dL (3.4-5.0) Albumin/Globulin Ratio 0.6 (1.0-1.7) Triglycerides Level 76 mg/dL (0-150) Cholesterol Level 137 mg/dL (0-200) LDL Cholesterol, Calculated 72 mg/dL (0-100) VLDL Cholesterol, Calculated 15 mg/dL (0-40) Non-HDL Cholesterol Calculated 87 mg/dL (0-129) HDL Cholesterol 50 mg/dL (40-60) Cholesterol/HDL Ratio 2.7 SARS-CoV-2 RNA (SHIRA) Negative (Negative) SARS-CoV-2 Antigen (Rapid) Negative (NEGATIVE) Urine Collection Type Unknown Urine Color Red Urine Clarity Turbid Urine pH 8.0 (<5.0-8.0) Urine Specific [place] 1.015 (1.000-1.030) Urine Protein >=300 mg/dL (NEG-TRACE) Urine Glucose (UA) Negative mg/dL (NEG) Urine Ketones (Stick) Trace mg/dL (NEG) Urine Blood Large (NEG) Urine Nitrite Negative (NEG) Urine Bilirubin Negative (NEG) Urine Urobilinogen Dipstick 0.2 mg/dL (0.2 mg/dL) Urine Leukocyte Esterase Large (NEG) Urine RBC >40 /HPF (0-2) Urine WBC Tntc /HPF (0-4) Urine Bacteria Many /HPF (0-FEW) Test 08/03/21 13:07 08/03/21 14:30 08/04/21 07:45 08/04/21 08:25 O2 Saturation 99 % (92-99) 98 % (92-99) Arterial Blood pH 7.33 (7.35-7.45) 7.26 (7.35-7.45) Arterial Blood pH (Temp corrected) 7.30 7.24 Arterial Blood pCO2 at Patient Temp 49 mmHg (35-46) 41 mmHg (35-46) Arterial Blood pCO2 (Temp correct) 53 mmHg 44 mmHg Arterial Blood pO2 at Patient Temp 237 mmHg (75-108) 104 mmHg (75-108) Arterial Blood pO2 (Temp corrected) 245 mmHg 115 mmHg Arterial Blood HCO3 25 mmol/L (21-28) 18 mmol/L (21-28) Arterial Blood Base Excess -1 mmol/L (-3-3) -9 mmol/L (-3-3) FiO2 100%vent 45/vent Lactic Acid Level 3.8 mmol/L (0.4-2.0) White Blood Count 31.1 x10^3/uL (4.0-11.0) Red Blood Count 4.70 x10^6/uL (4.30-5.70) Hemoglobin 15.2 g/dL (13.0-17.5) Hematocrit 47.1 % (39.0-53.0) Mean Corpuscular Volume 100 fL (79-100) Mean Corpuscular Hemoglobin 32 pg (25-35) Mean Corpuscular Hemoglobin Concent 32 g/dL (31-37) Red Cell Distribution Width 17.4 % (11.5-14.5) Platelet Count 153 x10^3/uL (140-400) Neutrophils (%) (Auto) 84 % (31-73) Lymphocytes (%) (Auto) 4 % (24-48) Monocytes (%) (Auto) 11 % (0-9) Eosinophils (%) (Auto) 0 % (0-3) Basophils (%) (Auto) 1 % (0-3) Neutrophils # (Auto) 26.3 x10^3/uL (1.8-7.7) Lymphocytes # (Auto) 1.2 x10^3/uL (1.0-4.8) Monocytes # (Auto) 3.4 x10^3/uL (0.0-1.1) Eosinophils # (Auto) 0.0 x10^3/uL (0.0-0.7) Basophils # (Auto) 0.2 x10^3/uL (0.0-0.2) Segmented Neutrophils % 53 % (35-66) Band Neutrophils % 27 % (0-9) Lymphocytes % 6 % (24-48) Monocytes % 13 % (0-10) Eosinophils % 1 % (0-5) Platelet Estimate Adequate (ADEQUATE) Sodium Level 134 mmol/L (136-145) Potassium Level 5.1 mmol/L (3.5-5.1) Chloride Level 96 mmol/L (98-107) Carbon Dioxide Level 19 mmol/L (21-32) Anion Gap 19 (6-14) Blood Urea Nitrogen 43 mg/dL (8-26) Creatinine 6.9 mg/dL (0.7-1.3) Estimated GFR (Cockcroft-Gault) 8.3 BUN/Creatinine Ratio 6 (6-20) Glucose Level 77 mg/dL (70-99) Calcium Level 7.7 mg/dL (8.5-10.1) Phosphorus Level 5.2 mg/dL (2.6-4.7) Magnesium Level 1.7 mg/dL (1.8-2.4) Total Bilirubin 0.6 mg/dL (0.2-1.0) Aspartate Amino Transf (AST/SGOT) 144 U/L (15-37) Alanine Aminotransferase (ALT/SGPT) 113 U/L (16-63) Alkaline Phosphatase 159 U/L (46-116) Total Protein 8.6 g/dL (6.4-8.2) Albumin 2.8 g/dL (3.4-5.0) Albumin/Globulin Ratio 0.5 (1.0-1.7) Test 08/05/21 06:10 White Blood Count 29.0 x10^3/uL (4.0-11.0) Red Blood Count 3.80 x10^6/uL (4.30-5.70) Hemoglobin 12.2 g/dL (13.0-17.5) Hematocrit 37.6 % (39.0-53.0) Mean Corpuscular Volume 99 fL (79-100) Mean Corpuscular Hemoglobin 32 pg (25-35) Mean Corpuscular Hemoglobin Concent 32 g/dL (31-37) Red Cell Distribution Width 17.4 % (11.5-14.5) Platelet Count 136 x10^3/uL (140-400) Sodium Level 131 mmol/L (136-145) Potassium Level 6.9 mmol/L (3.5-5.1) Chloride Level 96 mmol/L (98-107) Carbon Dioxide Level 17 mmol/L (21-32) Anion Gap 18 (6-14) Blood Urea Nitrogen 68 mg/dL (8-26) Creatinine 8.9 mg/dL (0.7-1.3) Estimated GFR (Cockcroft-Gault) 6.2 Glucose Level 52 mg/dL (70-99) Calcium Level 6.6 mg/dL (8.5-10.1) Random Vancomycin Level 17.3 mcg/mL Laboratory Tests Test 08/04/21 08:25 08/05/21 06:10 White Blood Count 31.1 x10^3/uL (4.0-11.0) 29.0 x10^3/uL (4.0-11.0) Red Blood Count 4.70 x10^6/uL (4.30-5.70) 3.80 x10^6/uL (4.30-5.70) Hemoglobin 15.2 g/dL (13.0-17.5) 12.2 g/dL (13.0-17.5) Hematocrit 47.1 % (39.0-53.0) 37.6 % (39.0-53.0) Mean Corpuscular Volume 100 fL (79-100) 99 fL (79-100) Mean Corpuscular Hemoglobin 32 pg (25-35) 32 pg (25-35) Mean Corpuscular Hemoglobin Concent 32 g/dL (31-37) 32 g/dL (31-37) Red Cell Distribution Width 17.4 % (11.5-14.5) 17.4 % (11.5-14.5) Platelet Count 153 x10^3/uL (140-400) 136 x10^3/uL (140-400) Neutrophils (%) (Auto) 84 % (31-73) Lymphocytes (%) (Auto) 4 % (24-48) Monocytes (%) (Auto) 11 % (0-9) Eosinophils (%) (Auto) 0 % (0-3) Basophils (%) (Auto) 1 % (0-3) Neutrophils # (Auto) 26.3 x10^3/uL (1.8-7.7) Lymphocytes # (Auto) 1.2 x10^3/uL (1.0-4.8) Monocytes # (Auto) 3.4 x10^3/uL (0.0-1.1) Eosinophils # (Auto) 0.0 x10^3/uL (0.0-0.7) Basophils # (Auto) 0.2 x10^3/uL (0.0-0.2) Segmented Neutrophils % 53 % (35-66) Band Neutrophils % 27 % (0-9) Lymphocytes % 6 % (24-48) Monocytes % 13 % (0-10) Eosinophils % 1 % (0-5) Platelet Estimate Adequate (ADEQUATE) Sodium Level 134 mmol/L (136-145) 131 mmol/L (136-145) Potassium Level 5.1 mmol/L (3.5-5.1) 6.9 mmol/L (3.5-5.1) Chloride Level 96 mmol/L (98-107) 96 mmol/L (98-107) Carbon Dioxide Level 19 mmol/L (21-32) 17 mmol/L (21-32) Anion Gap 19 (6-14) 18 (6-14) Blood Urea Nitrogen 43 mg/dL (8-26) 68 mg/dL (8-26) Creatinine 6.9 mg/dL (0.7-1.3) 8.9 mg/dL (0.7-1.3) Estimated GFR (Cockcroft-Gault) 8.3 6.2 BUN/Creatinine Ratio 6 (6-20) Glucose Level 77 mg/dL (70-99) 52 mg/dL (70-99) Calcium Level 7.7 mg/dL (8.5-10.1) 6.6 mg/dL (8.5-10.1) Phosphorus Level 5.2 mg/dL (2.6-4.7) Magnesium Level 1.7 mg/dL (1.8-2.4) Total Bilirubin 0.6 mg/dL (0.2-1.0) Aspartate Amino Transf (AST/SGOT) 144 U/L (15-37) Alanine Aminotransferase (ALT/SGPT) 113 U/L (16-63) Alkaline Phosphatase 159 U/L (46-116) Total Protein 8.6 g/dL (6.4-8.2) Albumin 2.8 g/dL (3.4-5.0) Albumin/Globulin Ratio 0.5 (1.0-1.7) Random Vancomycin Level 17.3 mcg/mL Medications Active Scripts Medications Dose Route/Sig Max Daily Dose Days Date Category Tums (Calcium Carbonate) 200 Mg Tab.chew 400 Mg PO HS 04/19/21 Reported Sensipar (Cinacalcet Hcl) 60 Mg Tablet 1 Tab PO DAILY 30 04/19/21 Reported Ferric Citrate 210 Mg Tablet 2 Tab PO TID 30 04/19/21 Reported Lasix (Furosemide) 40 Mg Tablet 40 Mg PO BID 04/19/21 Reported Renagel (Sevelamer Hcl) 800 Mg Tablet 2 Tab PO TIDWMEALS 01/18/21 Reported Kapspargo Sprinkle (Metoprolol Succinate) 50 Mg Cap.spr.24 50 Mg PO DAILY 01/18/21 Reported Impression . IMPRESSION: 1. Acute hypoxemic respiratory failure, multifactorial. 2. Septic shock. 3. Fever related to above. 4. SARS-CoV-2 testing negative. 5. End-stage renal disease, on hemodialysis. 6. Possible stroke. 7. Other comorbidities including end-stage renal disease, hypertension, chronic obstructive pulmonary disease, gastroesophageal reflux, ischemic cardiomyopathy. Plan . Antibiotics per ID Hemodialysis per nephrology Continue pressors for map above 60 Follow blood cultures there are nutritional support DVT GI prophylaxis CCT 30 minutes Updated 08/05 PLAN: 1. Continue current support with mechanical ventilation. 2. Adjust minute ventilation to normalize pH. 3. Hemodialysis per Nephrology. 4. Empiric antibiotics. 5. Follow blood cultures. 6. Nutritional support. 7. Replace magnesium. I do appreciate the privilege in sharing in the patient's care. Critical care time of 55 minutes, reviewing the current documentation, examining the patient, reviewing the imaging studies, labs, formulating the impression and plan. CAYDEN MERRILL MD Aug 05, 2021 08:22
[2021-08-05] MEDS ORDERED: DIALYSIS PATIENT. MC PRN (09:15)
[2021-08-05] MEDS ORDERED: IV NORMAL SALINE 1000ML BAG 1,000 ML IV PRN ×2 (09:15)
--- NOTE | 2021-08-05 09:18 | PDOC ---
Infectious Disease Note Subjective Subjective Patient is intubated sedated ROS ROS No nausea vomiting diarrhea Vital Sign Vital Signs Vital Signs Date Time Temp Pulse Resp B/P (MAP) Pulse Ox O2 Delivery O2 Flow Rate FiO2 08/05/21 08:16 100 Ventilator 08/05/21 06:05 24 08/05/21 06:00 100.4 98 118/50 100.4 08/05/21 05:37 15.0 Physical Exam PHYSICAL EXAM GENERAL: Sedated, orally intubated gentleman, not in distress. VITAL SIGNS: Stable though on vasopressor support HEENT: Both pupils are round and reacting. No conjunctival lesion. NECK: Supple. No JVP. Mouth cannot be visualized. Orally intubated. LUNGS: Decreased breath sounds bilaterally. HEART: S1, S2 regular. No gallop or murmur. ABDOMEN: Soft, nontender. No organomegaly. Suprapubic catheter is now looking good with normal looking urine. EXTREMITIES: No edema, cyanosis. SKIN: Unremarkable. AV shunt in the right upper extremity is unremarkable. NEUROLOGIC: The patient cannot be judged as sedated and intubated. Labs Lab Laboratory Tests Test 08/05/21 06:10 White Blood Count 29.0 x10^3/uL (4.0-11.0) Red Blood Count 3.80 x10^6/uL (4.30-5.70) Hemoglobin 12.2 g/dL (13.0-17.5) Hematocrit 37.6 % (39.0-53.0) Mean Corpuscular Volume 99 fL (79-100) Mean Corpuscular Hemoglobin 32 pg (25-35) Mean Corpuscular Hemoglobin Concent 32 g/dL (31-37) Red Cell Distribution Width 17.4 % (11.5-14.5) Platelet Count 136 x10^3/uL (140-400) Sodium Level 131 mmol/L (136-145) Potassium Level 6.9 mmol/L (3.5-5.1) Chloride Level 96 mmol/L (98-107) Carbon Dioxide Level 17 mmol/L (21-32) Anion Gap 18 (6-14) Blood Urea Nitrogen 68 mg/dL (8-26) Creatinine 8.9 mg/dL (0.7-1.3) Estimated GFR (Cockcroft-Gault) 6.2 Glucose Level 52 mg/dL (70-99) Calcium Level 6.6 mg/dL (8.5-10.1) Random Vancomycin Level 17.3 mcg/mL Micro Blood culture all bottles positive with gram-positive cocci in clusters Objective Assessment IMPRESSION: 1. Encephalopathy. 2. Fever. 3. Complicated urinary tract infection with sepsis. 4. Hypotension. 5. Respiratory failure, requiring intubation. 6. Suspected cerebrovascular accident. 7. End-stage renal disease, on hemodialysis. 8. Congestive heart failure. 9. History of hypertension. 10 blood culture positive staph species Plan Plan of Care Continue antibiotics vancomycin and Zosyn discontinue ciprofloxacin Supportive care Follow cultures CHAPIN VALERIO MD Aug 05, 2021 09:18
--- NOTE | 2021-08-05 09:19 | NUR ---
A.M. ABG pending due to mottling in left arm. Dialysis in progress, and dialysis shunt on right arm. STEVE Bahena to request art line.
[2021-08-05] MEDS: ALBUMIN HUMAN 25% 100 ML IV PRN ×2 (09:47→09:49)
--- NOTE | 2021-08-05 09:47 | NUR ---
SS following up with discharge planning. SS reviewed pt chart and discussed with pt RN. Pt is currently on the vent at 35%. COVID19 negative. Pt on Vancomycin and IV Zosyn. Pt on Fentanyl, Versed, Levophed, Vasopressin, and Norepinephrine. Hemodialysis. Not ready. SS will continue to follow for discharge planning.
[2021-08-05] MEDS: VANCOMYCIN PER PHARMACY MC PRN (10:19)
--- NOTE | 2021-08-05 10:38 | NUR ---
Pharmacy Vancomycin Dosing Note S:Consulted to monitor and dose vancomycin started 08/03/21. O:FELICE GROVE is a 56 year old M with sepsis and bacteremia. Height: 5 feet, 5 inches Weight: 76.6 kg [place] Body Weight: 61.50 Adjusted Body Weight: 67.54 Dosing Weight: Actual Other Antibiotics: ZOSYN 2.25G IV Q8HRS LABS: Last BUN: 68 Last Creatinine: 8.9 Creatinine Clearance: ESRD on HD TTS mL/min Last WBC: 29 Last Procalcitonin: - Tmax (past 24 hours): 102.9 Microbiology: BLOOD CX (08/03): GPC IN 4/4 BOTTLES, 3 SETS, PRELIMINARY ID = STAPHYLOCOCCUS AUREUS I/O: 3522/860 GASTRIC DRAINAGE + 7 ML UOP Drug Levels: Last Random level: 17.3 on 08/05/21 at 0610 Last dose given 08/03/21 at 1200 Vancomycin Dosing: Loading Dose: 1500 mg x1 Dosing Weight: Actual Target Trough: 15-20 A: Based on: Patient's renal function/HD schedule, severity of suspected infection and patient's PMH: P: 1. Initiated Vancomycin 500 mg IV QTUTHSAT POST HD 2. Follow up Random level as indicated 3. Pharmacy will continue to monitor, follow and adjust therapy as needed. BHUMI CAT ROPER [facility], 08/05/21 [id number]
--- NOTE | 2021-08-05 11:29 | PDOC ---
Renal-Progress Notes Subjective Notes Notes ON THE VENT History of Present Illness Hx of present illness NO ACUTE CHANGES Vitals Vitals Vital Signs Date Time Temp Pulse Resp B/P (MAP) Pulse Ox O2 Delivery O2 Flow Rate FiO2 08/05/21 11:00 104 158/50 08/05/21 10:00 24 99 Ventilator 08/05/21 07:00 100.4 100.4 08/05/21 05:37 15.0 Weight Weight [ ] I.O. Intake and Output Intake and Output 08/05/21 07:00 Intake Total 3522 ml Output Total 867 ml Balance 2655 ml Intake IV Total 2144 ml Tube Feeding 778 ml Blood Product IV Normal Saline Flush 600 ml Output Urine Total 7 ml Gastric Drainage Total 860 ml Labs Labs Laboratory Tests Test 08/05/21 06:10 White Blood Count 29.0 x10^3/uL (4.0-11.0) Red Blood Count 3.80 x10^6/uL (4.30-5.70) Hemoglobin 12.2 g/dL (13.0-17.5) Hematocrit 37.6 % (39.0-53.0) Mean Corpuscular Volume 99 fL (79-100) Mean Corpuscular Hemoglobin 32 pg (25-35) Mean Corpuscular Hemoglobin Concent 32 g/dL (31-37) Red Cell Distribution Width 17.4 % (11.5-14.5) Platelet Count 136 x10^3/uL (140-400) Sodium Level 131 mmol/L (136-145) Potassium Level 6.9 mmol/L (3.5-5.1) Chloride Level 96 mmol/L (98-107) Carbon Dioxide Level 17 mmol/L (21-32) Anion Gap 18 (6-14) Blood Urea Nitrogen 68 mg/dL (8-26) Creatinine 8.9 mg/dL (0.7-1.3) Estimated GFR (Cockcroft-Gault) 6.2 Glucose Level 52 mg/dL (70-99) Calcium Level 6.6 mg/dL (8.5-10.1) Random Vancomycin Level 17.3 mcg/mL Hepatitis B Surface Antibody Nonreactive Micro Micro Microbiology 08/03/21 Blood Culture - Preliminary, Resulted 08/03/21 Urine Culture - Final, Complete Review of Systems Constitutional: yes: unresponsive Physical Exam General Appearance: other (ON THE VENT) Skin: warm Respiratory: decreased breath sounds Heart: S1S2, RRR Abdomen: soft, bowel sounds present Genitourinary: bladder flat, no mass Extremities: pulses present, atrophy Neurology: other (SEDATED) Assessment Assessment IMP HYPERKALEMIA ESRD-TTS ANEMIA DM II HTN UTI SEPSIS LEUCOCYTOSIS ENCEPHALOPATHY POSSIBLE CVA ACUTE RESP FAILURE MET AND RESP ACIDOSIS PLAN ANTIBIOTICS VENT SUPPORT PRESSORS NEEDED NEPRO TF AND WATER FLUSHES ID EVAL PULM EVAL HD TODAY WILL USE 1K DIALYSATE FOR AN HOUR MINIMAL UF PLANNED TODAY WILL FOLLOW D/W DR MERRILL PT IS CRITICALLY ILL MARIIA VIDAL MD Aug 05, 2021 11:28
--- NOTE | 2021-08-05 12:06 | PDOC ---
[employer] PROGRESS NOTE Date of Service DOS: DATE: 08/05/21 TIME: 12:03 Chief Complaint Chief Complaint Respiratory failure requiring mechanical ventilation Severe sepsis Possible stroke Suprapubic catheter; CHF; COPD; hypertension; pneumonia, End-stage renal disease, on dialysis; history of peritonitis dialysis as well left kidney stents; suprapubic catheter. History of Present Illness History of Present Illness 08/05/2021 Patient seen and examined in the ICU He is currently on dialysis Discussed with RN He is still on the vent AC/24/500/30 5% with 5 of PEEP Has SCDs in place [place] to bedside drainage Sedated with fentanyl and Versed Has IV Levophed hanging Also on IV neomycin Also on IV vasopressin Extremely critically ill 08/04/2021 Patient seen and examined in the ICU He is mechanically ventilated AC/16/500/40 5% with 5 of PEEP He is extremely hypotensive 63/40 currently despite having Levophed and vasopressin Discussed with RN were going to start Michael-Synephrine Tachycardic at 117 bpm Patient is extremely cool and clammy Had a fever to 103.5 last night currently at 102.9 He is extremely critically ill Vitals/I&O Vitals/I&O: Vital Signs Date Time Temp Pulse Resp B/P (MAP) Pulse Ox O2 Delivery O2 Flow Rate FiO2 08/05/21 11:00 104 158/50 08/05/21 10:00 24 99 Ventilator 08/05/21 07:00 100.4 100.4 08/05/21 05:37 15.0 I & O 08/04/21 08/04/21 08/05/21 15:00 23:00 07:00 Intake Total 50 ml 1348 ml 2124 ml Output Total 0 ml 2 ml 865 ml Balance 50 ml 1346 ml 1259 ml Physical Exam Physical Exam: GENERAL: Sedated, orally intubated gentleman, not in distress. VITAL SIGNS: Stable though on vasopressor support HEENT: Both pupils are round and reacting. No conjunctival lesion. NECK: Supple. No JVP. Mouth cannot be visualized. Orally intubated. LUNGS: Decreased breath sounds bilaterally. HEART: S1, S2 regular. No gallop or murmur. ABDOMEN: Soft, nontender. No organomegaly. Suprapubic catheter is now looking good with normal looking urine. EXTREMITIES: No edema, cyanosis. SKIN: Unremarkable. AV shunt in the right upper extremity is unremarkable. NEUROLOGIC: The patient cannot be judged as sedated and intubated. General: Other (ON THE VENT) Heart: Regular rate Lungs: Crackles Abdomen: Normal bowel sounds, Soft Extremities: No clubbing, No edema Skin: No breakdown Labs Labs: Laboratory Tests Test 08/05/21 06:10 White Blood Count 29.0 x10^3/uL (4.0-11.0) Red Blood Count 3.80 x10^6/uL (4.30-5.70) Hemoglobin 12.2 g/dL (13.0-17.5) Hematocrit 37.6 % (39.0-53.0) Mean Corpuscular Volume 99 fL (79-100) Mean Corpuscular Hemoglobin 32 pg (25-35) Mean Corpuscular Hemoglobin Concent 32 g/dL (31-37) Red Cell Distribution Width 17.4 % (11.5-14.5) Platelet Count 136 x10^3/uL (140-400) Sodium Level 131 mmol/L (136-145) Potassium Level 6.9 mmol/L (3.5-5.1) Chloride Level 96 mmol/L (98-107) Carbon Dioxide Level 17 mmol/L (21-32) Anion Gap 18 (6-14) Blood Urea Nitrogen 68 mg/dL (8-26) Creatinine 8.9 mg/dL (0.7-1.3) Estimated GFR (Cockcroft-Gault) 6.2 Glucose Level 52 mg/dL (70-99) Calcium Level 6.6 mg/dL (8.5-10.1) Random Vancomycin Level 17.3 mcg/mL Hepatitis B Surface Antibody Nonreactive Assessment and Plan Assessmemt and Plan Problems Medical Problems: (1) Hypoxia Status: Acute (2) Respiratory failure Status: Acute (3) Sepsis Status: Acute (4) Stroke Status: Acute (5) UTI (urinary tract infection) Status: Acute Respiratory failure requiring mechanical ventilation Severe sepsis Possible stroke Suprapubic catheter; CHF; COPD; hypertension; pneumonia, End-stage renal disease, on dialysis; history of peritonitis dialysis as well left kidney stents; suprapubic catheter. Plan ICU monitoring Continue mechanical ventilation Vent weaning Neurology has ordered a repeat CT of the head agree IV antibiotics per infectious disease Continue our IV pressor support with Levophed vasopressin and were adding an Michael-Synephrine Trend labs Home meds when possible Added Lovenox 40 mg a day for DVT prophylaxis we will continue SCDs as well Dialysis per nephrology if possible Nutritional support He remains very critically ill Appreciate subspecialist input Prognosis extremely guarded probably terminal CC time 31 minutes Comment Review of Relevant I have reviewed the following items allyson (where applicable) has been applied. Medications: Current Medications Medications (Trade) Dose Ordered Sig/Kevin Route PRN Reason Start Time Stop Time Status Last Admin Dose Admin Lidocaine HCl (Buffered Lidocaine 1%) 3 ml 1X ONCE IJ 08/04/21 13:30 08/04/21 13:31 DC 08/04/21 13:15 Vancomycin HCl (Vancomycin Random Level) 1 each 1X ONCE MC 08/05/21 06:00 08/05/21 06:01 DC 08/05/21 06:14 Albumin Human 100 ml @ 100 mls/hr PRN DAILY PRN IV SEE COMMENTS 08/05/21 08:15 08/05/21 09:49 Justifications for Admission Other Justification KASSIEO DEVAN NICHOLE III DO Aug 05, 2021 12:05
[2021-08-05] MEDS: HEPARIN for SUB-Q USE 5,000 UNIT/ML VIAL. SQ SCH ×2 (12:19→21:48)
--- NOTE | 2021-08-05 12:20 | PDOC ---
PROGRESS NOTES Date of Service DATE: 08/05/21 TIME: 12:18 Assessment Problems Medical Problems: (1) Hypoxia Status: Acute (2) Respiratory failure Status: Acute (3) Sepsis Status: Acute (4) Stroke Status: Acute (5) UTI (urinary tract infection) Status: Acute Possible stroke but with the hypotension, respiratory failure, probable sepsis, the diagnosis is in doubt. Note negative CT and CT angiogram Fever, sepsis requiring pressors due to hypotension, respiratory failure, end- stage renal disease, congestive heart failure, cardiomyopathy status-post pacemaker Note normal hemoglobin A1c and lipid profile Plan Head CT on hold because he is hemodynamically unstable to transport Treat medical issues Discussed with patient's mother Subjective None Objective Vital Signs Date Time Temp Pulse Resp B/P (MAP) Pulse Ox O2 Delivery O2 Flow Rate FiO2 08/05/21 11:00 104 158/50 08/05/21 10:00 24 99 Ventilator 08/05/21 07:00 100.4 100.4 08/05/21 05:37 15.0 Intake and Output 08/05/21 07:00 Intake Total 3522 ml Output Total 867 ml Balance 2655 ml Intake IV Total 2144 ml Tube Feeding 778 ml Blood Product IV Normal Saline Flush 600 ml Output Urine Total 7 ml Gastric Drainage Total 860 ml PHYSICAL EXAM Sedated on ventilator, opens eyes a little bit to slight painful stimulation PERRL. EOMI. CN: no focal findings. Muscle tone: normal. Muscle strength: Moves the right side more than the left DTR: 2+ Plantar reflex: Silent Gait: not examined in bed. Sensory exam: Not cooperative. Cerebellar: not cooperative Review of Relevant I have reviewed the following items allyson (where applicable) has been applied. Labs Laboratory Tests Test 08/03/21 13:07 08/03/21 14:30 08/04/21 07:45 08/04/21 08:25 O2 Saturation 99 % (92-99) 98 % (92-99) Arterial Blood pH 7.33 (7.35-7.45) 7.26 (7.35-7.45) Arterial Blood pH (Temp corrected) 7.30 7.24 Arterial Blood pCO2 at Patient Temp 49 mmHg (35-46) 41 mmHg (35-46) Arterial Blood pCO2 (Temp correct) 53 mmHg 44 mmHg Arterial Blood pO2 at Patient Temp 237 mmHg (75-108) 104 mmHg (75-108) Arterial Blood pO2 (Temp corrected) 245 mmHg 115 mmHg Arterial Blood HCO3 25 mmol/L (21-28) 18 mmol/L (21-28) Arterial Blood Base Excess -1 mmol/L (-3-3) -9 mmol/L (-3-3) FiO2 100%vent 45/vent Lactic Acid Level 3.8 mmol/L (0.4-2.0) White Blood Count 31.1 x10^3/uL (4.0-11.0) Red Blood Count 4.70 x10^6/uL (4.30-5.70) Hemoglobin 15.2 g/dL (13.0-17.5) Hematocrit 47.1 % (39.0-53.0) Mean Corpuscular Volume 100 fL (79-100) Mean Corpuscular Hemoglobin 32 pg (25-35) Mean Corpuscular Hemoglobin Concent 32 g/dL (31-37) Red Cell Distribution Width 17.4 % (11.5-14.5) Platelet Count 153 x10^3/uL (140-400) Neutrophils (%) (Auto) 84 % (31-73) Lymphocytes (%) (Auto) 4 % (24-48) Monocytes (%) (Auto) 11 % (0-9) Eosinophils (%) (Auto) 0 % (0-3) Basophils (%) (Auto) 1 % (0-3) Neutrophils # (Auto) 26.3 x10^3/uL (1.8-7.7) Lymphocytes # (Auto) 1.2 x10^3/uL (1.0-4.8) Monocytes # (Auto) 3.4 x10^3/uL (0.0-1.1) Eosinophils # (Auto) 0.0 x10^3/uL (0.0-0.7) Basophils # (Auto) 0.2 x10^3/uL (0.0-0.2) Segmented Neutrophils % 53 % (35-66) Band Neutrophils % 27 % (0-9) Lymphocytes % 6 % (24-48) Monocytes % 13 % (0-10) Eosinophils % 1 % (0-5) Platelet Estimate Adequate (ADEQUATE) Sodium Level 134 mmol/L (136-145) Potassium Level 5.1 mmol/L (3.5-5.1) Chloride Level 96 mmol/L (98-107) Carbon Dioxide Level 19 mmol/L (21-32) Anion Gap 19 (6-14) Blood Urea Nitrogen 43 mg/dL (8-26) Creatinine 6.9 mg/dL (0.7-1.3) Estimated GFR (Cockcroft-Gault) 8.3 BUN/Creatinine Ratio 6 (6-20) Glucose Level 77 mg/dL (70-99) Calcium Level 7.7 mg/dL (8.5-10.1) Phosphorus Level 5.2 mg/dL (2.6-4.7) Magnesium Level 1.7 mg/dL (1.8-2.4) Total Bilirubin 0.6 mg/dL (0.2-1.0) Aspartate Amino Transf (AST/SGOT) 144 U/L (15-37) Alanine Aminotransferase (ALT/SGPT) 113 U/L (16-63) Alkaline Phosphatase 159 U/L (46-116) Total Protein 8.6 g/dL (6.4-8.2) Albumin 2.8 g/dL (3.4-5.0) Albumin/Globulin Ratio 0.5 (1.0-1.7) Test 08/05/21 06:10 White Blood Count 29.0 x10^3/uL (4.0-11.0) Red Blood Count 3.80 x10^6/uL (4.30-5.70) Hemoglobin 12.2 g/dL (13.0-17.5) Hematocrit 37.6 % (39.0-53.0) Mean Corpuscular Volume 99 fL (79-100) Mean Corpuscular Hemoglobin 32 pg (25-35) Mean Corpuscular Hemoglobin Concent 32 g/dL (31-37) Red Cell Distribution Width 17.4 % (11.5-14.5) Platelet Count 136 x10^3/uL (140-400) Sodium Level 131 mmol/L (136-145) Potassium Level 6.9 mmol/L (3.5-5.1) Chloride Level 96 mmol/L (98-107) Carbon Dioxide Level 17 mmol/L (21-32) Anion Gap 18 (6-14) Blood Urea Nitrogen 68 mg/dL (8-26) Creatinine 8.9 mg/dL (0.7-1.3) Estimated GFR (Cockcroft-Gault) 6.2 Glucose Level 52 mg/dL (70-99) Calcium Level 6.6 mg/dL (8.5-10.1) Magnesium Level 1.9 mg/dL (1.8-2.4) Random Vancomycin Level 17.3 mcg/mL Hepatitis B Surface Antibody Nonreactive Laboratory Tests Test 08/05/21 06:10 White Blood Count 29.0 x10^3/uL (4.0-11.0) Red Blood Count 3.80 x10^6/uL (4.30-5.70) Hemoglobin 12.2 g/dL (13.0-17.5) Hematocrit 37.6 % (39.0-53.0) Mean Corpuscular Volume 99 fL (79-100) Mean Corpuscular Hemoglobin 32 pg (25-35) Mean Corpuscular Hemoglobin Concent 32 g/dL (31-37) Red Cell Distribution Width 17.4 % (11.5-14.5) Platelet Count 136 x10^3/uL (140-400) Sodium Level 131 mmol/L (136-145) Potassium Level 6.9 mmol/L (3.5-5.1) Chloride Level 96 mmol/L (98-107) Carbon Dioxide Level 17 mmol/L (21-32) Anion Gap 18 (6-14) Blood Urea Nitrogen 68 mg/dL (8-26) Creatinine 8.9 mg/dL (0.7-1.3) Estimated GFR (Cockcroft-Gault) 6.2 Glucose Level 52 mg/dL (70-99) Calcium Level 6.6 mg/dL (8.5-10.1) Magnesium Level 1.9 mg/dL (1.8-2.4) Random Vancomycin Level 17.3 mcg/mL Hepatitis B Surface Antibody Nonreactive Microbiology 08/03/21 Blood Culture - Preliminary, Resulted 08/03/21 Urine Culture - Final, Complete Medications Current Medications Sodium Chloride 1,000 ml @ 1,000 mls/hr 1X ONCE IV Last administered on 08/03/21at 11:26; Start 08/03/21 at 11:15; Stop 08/03/21 at 12:14; Status DC Piperacillin Sod/ Tazobactam Sod 4.5 gm/Sodium Chloride 100 ml @ 200 mls/hr 1X ONCE IV Last administered on 08/03/21at 11:26; Start 08/03/21 at 11:15; Stop 08/03/21 at 11:44; Status DC Vancomycin HCl 1.5 gm/Sodium Chloride 500 ml @ 250 mls/hr 1X ONCE IV Last administered on 08/03/21at 12:00; Start 08/03/21 at 12:00; Stop 08/03/21 at 13:59; Status DC Iohexol (Omnipaque 300 Mg/ml) 75 ml 1X ONCE IV Last administered on 08/03/21at 11:29; Start 08/03/21 at 11:15; Stop 08/03/21 at 11:16; Status DC Info (CONTRAST GIVEN -- Rx MONITORING) 1 each PRN DAILY PRN MC SEE COMMENTS; Start 08/03/21 at 11:15; Stop 08/05/21 at 11:14; Status DC Fentanyl Citrate 30 ml @ 2.5 mls/hr CONT PRN IV SEE PROTOCOL; Start 08/03/21 at 12:15; Status Cancel Propofol 100 ml @ 2.235 mls/ hr CONT PRN IV PER PROTOCOL Last administered on 08/03/21at 12:31; Start 08/03/21 at 12:15; Stop 08/04/21 at 07:38; Status DC Chlorhexidine Gluconate (Peridex) 15 ml BID MM ; Start 08/03/21 at 21:00; Status Cancel Glycerin/ Hypromellose/ Polyethylene (Artificial Tears) 1 drop PRN Q1HR PRN OU DRY EYE; Start 08/03/21 at 12:15; Stop 08/03/21 at 21:15; Status DC Dexmedetomidine HCl 400 mcg/ Sodium Chloride 100 ml @ 3.725 mls/ hr CONT PRN IV PER PROTOCOL; Start 08/03/21 at 12:15; Stop 08/03/21 at 21:15; Status DC Midazolam HCl (Versed) 5 mg PRN 1X PRN IVP VENT INDUCTION Last administered on 08/03/21at 14:12; Start 08/03/21 at 12:15; Stop 08/03/21 at 14:12; Status DC Etomidate (Amidate) 10 mg 1X ONCE IV Last administered on 08/03/21at 12:48; Start 08/03/21 at 12:45; Stop 08/03/21 at 12:46; Status DC Rocuronium [place] (Zemuron) 100 mg 1X ONCE IV Last administered on 08/03/21at 12:45; Start 08/03/21 at 12:45; Stop 08/03/21 at 12:46; Status DC Sodium Chloride 250 ml @ 250 mls/hr 1X ONCE IV Last administered on 08/03/21at 14:21; Start 08/03/21 at 14:30; Stop 08/03/21 at 15:29; Status DC Fentanyl Citrate 30 ml @ 2.5 mls/hr CONT PRN IV SEE PROTOCOL Last administered on 08/05/21at 05:37; Start 08/03/21 at 15:00 Midazolam HCl 100 ml @ 1 mls/hr CONT PRN IV SEE PROTOCOL Last administered on 08/04/21at 11:56; Start 08/03/21 at 15:00 Propofol 100 ml @ 2.235 mls/ hr CONT PRN IV PER PROTOCOL; Start 08/03/21 at 15:00 Vecuronium [place] (Norcuron Bolus) 6 mg PRN 1X PRN IV VENT INDUCTION; Start 08/03/21 at 15:00; Stop 08/04/21 at 14:59; Status DC Chlorhexidine Gluconate (Peridex) 15 ml BID MM ; Start 08/03/21 at 21:00; Stop 08/04/21 at 19:49; Status DC Glycerin/ Hypromellose/ Polyethylene (Artificial Tears) 1 drop PRN Q1HR PRN OU DRY EYE; Start 08/03/21 at 15:00 Dexmedetomidine HCl 400 mcg/ Sodium Chloride 100 ml @ 3.725 mls/ hr CONT PRN IV PER PROTOCOL; Start 08/03/21 at 15:00 Midazolam HCl (Versed) 5 mg PRN 1X PRN IVP VENT INDUCTION; Start 08/03/21 at 15:00; Stop 08/04/21 at 14:59; Status DC Sodium Chloride 500 ml @ 500 mls/hr 1X PRN PRN IV SEE COMMENTS; Start 08/03/21 at 15:00 Atropine Sulfate (ATROPINE 0.5mg SYRINGE) 0.5 mg PRN Q5MIN PRN IV SEE COMMENTS; Start 08/03/21 at 15:00 Famotidine (Pepcid Vial) 20 mg BID IVP Last administered on 08/03/21at 21:00; Start 1/11/22 at 21:00; Stop 08/04/21 at 07:59; Status DC Norepinephrine Bitartrate 8 mg/ Dextrose 258 ml @ 14.416 mls/ hr CONT PRN IV PER PROTOCOL Last administered on 08/04/21at 03:52; Start 08/03/21 at 15:00; Stop 08/04/21 at 05:29; Status DC Etomidate (Amidate) 20 mg STK-MED ONCE IV ; Start 08/03/21 at 17:04; Stop 08/03/21 at 17:04; Status DC Rocuronium [place] (Zemuron) 50 mg STK-MED ONCE .ROUTE ; Start 08/03/21 at 17:04; Stop 08/03/21 at 17:04; Status DC Acetaminophen (Tylenol Supp) 650 mg PRN Q6HRS PRN VA MILD PAIN / TEMP > 100.3'F Last administered on 08/04/21at 20:25; Start 08/03/21 at 20:45 Acetaminophen (Tylenol) 650 mg PRN Q6HRS PRN PEG MILD PAIN / TEMP > 100.3'F; Start 08/03/21 at 20:45 Vasopressin 20 unit/Dextrose 101 ml @ 12 mls/hr CONT PRN IV SEE I/O RECORD Last administered on 08/05/21at 06:23; Start 08/04/21 at 03:45 Norepinephrine Bitartrate 32 mg/ Dextrose 250 ml @ 3.492 mls/ hr CONT PRN IV SEE I/O RECORD Last administered on 08/05/21at 04:26; Start 08/04/21 at 05:30 Phenylephrine HCl 50 mg/Sodium Chloride 255 ml @ 11.399 mls/ hr CONT PRN IV PER PROTOCOL Last administered on 08/05/21at 05:38; Start 08/04/21 at 06:30 Piperacillin Sod/ Tazobactam Sod 2.25 gm/Sodium Chloride 50 ml @ 100 mls/hr Q8HRS IV Last administered on 08/05/21at 06:14; Start 08/04/21 at 08:00 Vancomycin HCl (Vanco Per Pharmacy) 1 each PRN DAILY PRN MC SEE COMMENTS Last administered on 08/05/21at 10:19; Start 08/04/21 at 08:00 Famotidine (Pepcid Vial) 20 mg QODAY IVP Last administered on 08/04/21at 10:36; Start 08/04/21 at 09:00 Vancomycin HCl (Vanco Per Pharmacy) 1 each PRN DAILY PRN MC SEE COMMENTS; Start 08/04/21 at 08:00; Status UNV Piperacillin Sod/ Tazobactam Sod 2.25 gm/Sodium Chloride 50 ml @ 100 mls/hr Q6HRS IV ; Start 08/04/21 at 12:00; Status UNV Ciprofloxacin/ Dextrose 200 ml @ 200 mls/hr DAILY IV Last administered on 08/04/21at 11:38; Start 08/04/21 at 09:00; Stop 08/05/21 at 09:18; Status DC Lidocaine HCl (Xylocaine-Mpf 1% 5ml Vial) 5 ml 1X ONCE INJ ; Start 08/04/21 at 09:30; Stop 08/04/21 at 09:31; Status DC Lidocaine HCl (Buffered Lidocaine 1%) 3 ml STK-MED ONCE .ROUTE ; Start 08/04/21 at 12:33; Stop 08/04/21 at 12:33; Status DC Iohexol (Omnipaque 240 Mg/ml) 50 ml STK-MED ONCE .ROUTE ; Start 08/04/21 at 12:36; Stop 08/04/21 at 12:36; Status DC Lidocaine HCl (Buffered Lidocaine 1%) 3 ml 1X ONCE IJ Last administered on 08/04/21at 13:15; Start 08/04/21 at 13:30; Stop 08/04/21 at 13:31; Status DC Iohexol (Omnipaque 300 Mg/ml) 50 ml 1X ONCE IART ; Start 08/04/21 at 13:30; Stop 08/04/21 at 13:31; Status DC Vancomycin HCl (Vancomycin Random Level) 1 each 1X ONCE MC Last administered on 08/05/21at 06:14; Start 08/05/21 at 06:00; Stop 08/05/21 at 06:01; Status DC Albumin Human 100 ml @ 100 mls/hr PRN DAILY PRN IV SEE COMMENTS Last administered on 08/05/21at 09:49; Start 08/05/21 at 08:15 Sodium Chloride 1,000 ml @ 1,000 mls/hr Q1H PRN IV hypotension; Start 08/05/21 at 09:15; Stop 08/05/21 at 15:14 Sodium Chloride 1,000 ml @ 400 mls/hr Q2H30M PRN IV PATENCY; Start 08/05/21 at 09:15; Stop 08/05/21 at 21:14 Info (PHARMACY MONITORING -- do not chart) 1 each PRN DAILY PRN MC SEE COMMENTS; Start 08/05/21 at 09:15 Vancomycin HCl 500 mg/Sodium Chloride 100 ml @ 100 mls/hr QTUTHSA IV ; Start 08/05/21 at 16:00 Heparin Sodium (Porcine) (Heparin Sodium) 5,000 unit Q12HR SQ ; Start 08/05/21 at 11:00 Active Scripts Active Reported Tums (Calcium Carbonate) 200 Mg Tab.chew 400 Mg PO HS Sensipar (Cinacalcet Hcl) 60 Mg Tablet 1 Tab PO DAILY 30 Days Ferric Citrate 210 Mg Tablet 2 Tab PO TID 30 Days Lasix (Furosemide) 40 Mg Tablet 40 Mg PO BID Renagel (Sevelamer Hcl) 800 Mg Tablet 2 Tab PO TIDWMEALS Kapspargo Sprinkle (Metoprolol Succinate) 50 Mg Cap.spr.24 50 Mg PO DAILY Vitals/I & O Vital Sign - Last 24 Hours 08/04/21 08/04/21 08/04/21 08/04/21 13:05 13:10 13:15 13:20 Pulse 105 104 105 104 Resp 20 21 20 20 B/P (MAP) 103/58 96/60 91/61 86/59 Pulse Ox 99 98 98 98 O2 Delivery Ventilator Ventilator Ventilator Ventilator 08/04/21 08/04/21 08/04/21 08/04/21 14:00 14:22 14:26 15:00 Temp 101.1 101.1 Pulse 104 104 Resp 17 24 B/P (MAP) 113/61 103/60 Pulse Ox 100 100 100 99 O2 Delivery Ventilator Ventilator Ventilator Ventilator 08/04/21 08/04/21 08/04/21 08/04/21 15:46 16:00 16:00 17:00 Pulse 102 102 Resp 24 24 B/P (MAP) 108/56 104/55 Pulse Ox 99 99 99 O2 Delivery Ventilator Ventilator Mechanical Ventilator Ventilator 08/04/21 08/04/21 08/04/21 08/04/21 17:15 17:55 18:00 18:14 Pulse 102 100 Resp 24 24 B/P (MAP) 107/56 96/50 Pulse Ox 100 100 99 O2 Delivery Ventilator Ventilator Ventilator Ventilator 08/04/21 08/04/21 08/04/21 08/04/21 19:00 20:00 20:00 20:10 Temp 101.5 101.5 101.5 101.5 Pulse 100 98 Resp 24 24 B/P (MAP) 106/53 108/48 Pulse Ox 100 100 100 O2 Delivery Ventilator Ventilator Mechanical Ventilator Ventilator 08/04/21 08/04/21 08/04/21 08/04/21 21:00 22:00 23:00 23:40 Temp 101.5 101.3 100.9 101.5 101.3 100.9 Pulse 96 96 96 Resp 24 24 24 B/P (MAP) 97/46 116/48 121/54 Pulse Ox 100 100 100 100 O2 Delivery Ventilator Ventilator Ventilator Ventilator 08/04/21 08/04/21 08/05/21 08/05/21 23:59 23:59 01:00 02:00 Temp 100.4 100.4 100.6 100.4 100.4 100.6 Pulse 94 94 94 Resp 24 24 24 B/P (MAP) 133/56 116/51 118/52 Pulse Ox 100 100 100 O2 Delivery Mechanical Ventilator Ventilator Ventilator Ventilator 08/05/21 08/05/21 08/05/21 08/05/21 03:00 04:00 04:00 04:40 Temp 100.8 100.8 100.8 100.8 Pulse 94 94 Resp 24 24 B/P (MAP) 112/47 129/64 Pulse Ox 100 100 98 O2 Delivery Ventilator Ventilator Mechanical Ventilator Ventilator 08/05/21 08/05/21 08/05/21 08/05/21 05:00 05:37 06:00 06:05 Temp 100.2 100.4 100.2 100.4 Pulse 96 98 Resp 24 24 24 B/P (MAP) 120/49 118/50 Pulse Ox 99 99 99 99 O2 Delivery Ventilator Ventilator Ventilator O2 Flow Rate 15.0 08/05/21 08/05/21 08/05/21 08/05/21 07:00 08:00 08:00 08:16 Temp 100.4 100.4 Pulse 100 96 Resp 24 24 B/P (MAP) 125/46 123/46 Pulse Ox 99 99 100 O2 Delivery Ventilator Mechanical Ventilator Ventilator Ventilator 08/05/21 08/05/21 08/05/21 08/05/21 08:45 09:00 09:25 10:00 Pulse 104 104 106 Resp 24 24 24 B/P (MAP) 85/49 96/51 140/46 Pulse Ox 99 99 99 99 O2 Delivery Ventilator Ventilator Ventilator Ventilator 08/05/21 08/05/21 08/05/21 08/05/21 10:15 10:30 10:45 11:00 Pulse 110 106 106 104 B/P (MAP) 152/52 156/50 126/48 158/50 Intake and Output 08/04/21 08/04/21 08/05/21 15:00 23:00 07:00 Intake Total 50 ml 1348 ml 2124 ml Output Total 0 ml 2 ml 865 ml Balance 50 ml 1346 ml 1259 ml Justicifation of Admission Dx: Justifications for Admission: Justification of Admission Dx: N/A REID HERNANDEZ MD Aug 05, 2021 12:20
[2021-08-05 12:34] LABS: BASE EXCESS ABG 1 mmol/L (-3-3); HCO3 ABG 24 mmol/L (21-28); PCO2 ABG 36 mmHg (35-46); PO2 ABG 126 mmHg (75-108); SAT O2 ABG 98 % (92-99)
[2021-08-05] MEDS ORDERED: DEXTROSE 50% 25 GM / 50ML DISP.SYRIN. IV ONE (12:45)
--- NOTE | 2021-08-05 12:49 | PDOC2 ---
NOEMI BARR BARBER 08/05/21 1249: CARDIAC CONSULT DATE OF CONSULT Date of Consult DATE: 08/05/21 TIME: 12:34 REASON FOR CONSULT Reason for Consult: Arrhythmias, hypotension REFERRING PHYSICIAN Referring Physician: Dr. Mace SOURCE Source: Chart review HISTORY OF PRESENT ILLNESS HISTORY OF PRESENT ILLNESS This is a 56 yo male who presented secondary to stroke like symptoms. Was found unresponsive in his car. EMS was called. Was unable to respond using yes/no. Was noted with left-sided facial droop and left arm/leg weakness. In ED, he developed hypotension and respiratory failure requiring intubation. Also noted with bleeding in the oral cavity. Patient recently received PPM at [facility] for bradycardia PAST MEDICAL HISTORY Past Medical History Cardiovascular: CHF, HTN, Pulmonary hypertension, Other (pericaridal effusion ), SSS Pulmonary: COPD GI: GI bleed Heme/Onc: Anemia NOS Hepatobiliary: Hep A/B/C Renal/: Chronic renal failure (ESRD ), Benign prostatic enlarg., Other (urinary retention ) Endocrine: Other (hypoparathyroid) PAST SURGICAL HISTORY Past Surgical History Hernia Repair, Other (AV shunt, subxiphoid pericardial window, PPM ) FAMILY HISTORY Family History: Heart Disease SOCIAL HISTORY Social History Smoke: No ALCOHOL: none Drugs: None CURRENT MEDICATIONS CURRENT MEDICATIONS Current Medications Medications (Trade) Dose Ordered Sig/Kevin Route PRN Reason Start Time Stop Time Status Last Admin Dose Admin Lidocaine HCl (Buffered Lidocaine 1%) 3 ml 1X ONCE IJ 08/04/21 13:30 08/04/21 13:31 DC 08/04/21 13:15 Vancomycin HCl (Vancomycin Random Level) 1 each 1X ONCE MC 08/05/21 06:00 08/05/21 06:01 DC 08/05/21 06:14 Albumin Human 100 ml @ 100 mls/hr PRN DAILY PRN IV SEE COMMENTS 08/05/21 08:15 08/05/21 09:49 Heparin Sodium (Porcine) (Heparin Sodium) 5,000 unit Q12HR SQ 08/05/21 11:00 08/05/21 12:19 ALLERGIES ALLERGIES: Coded Allergies: No Known Drug Allergies (Unverified , 02/17/21) ROS Review of System unobtainable PHYSICAL EXAM General: Other (sedated) Lungs: Other (MV) Heart: Other (ST) Abdomen: Soft Extremities: No edema Skin: No significant lesion Neuro: Other (sedated) Psych/Mental Status: Other (unable to assess) MUSCULOSKELETAL: Osteoarthritic changes both hands VITALS/I&O VITALS/I&O: Vital Signs Date Time Temp Pulse Resp B/P (MAP) Pulse Ox O2 Delivery O2 Flow Rate FiO2 08/05/21 11:00 104 158/50 08/05/21 10:00 24 99 Ventilator 08/05/21 07:00 100.4 100.4 08/05/21 05:37 15.0 I & O 08/04/21 08/04/21 08/05/21 15:00 23:00 07:00 Intake Total 50 ml 1348 ml 2124 ml Output Total 0 ml 2 ml 865 ml Balance 50 ml 1346 ml 1259 ml LABS Lab: Laboratory Tests Test 08/05/21 06:10 White Blood Count 29.0 x10^3/uL (4.0-11.0) H Red Blood Count 3.80 x10^6/uL (4.30-5.70) L Hemoglobin 12.2 g/dL (13.0-17.5) L Hematocrit 37.6 % (39.0-53.0) L Mean Corpuscular Volume 99 fL (79-100) Mean Corpuscular Hemoglobin 32 pg (25-35) Mean Corpuscular Hemoglobin Concent 32 g/dL (31-37) Red Cell Distribution Width 17.4 % (11.5-14.5) H Platelet Count 136 x10^3/uL (140-400) L Sodium Level 131 mmol/L (136-145) L Potassium Level 6.9 mmol/L (3.5-5.1) #*H Chloride Level 96 mmol/L (98-107) L Carbon Dioxide Level 17 mmol/L (21-32) L Anion Gap 18 (6-14) H Blood Urea Nitrogen 68 mg/dL (8-26) #H Creatinine 8.9 mg/dL (0.7-1.3) H Estimated GFR (Cockcroft-Gault) 6.2 Glucose Level 52 mg/dL (70-99) L Calcium Level 6.6 mg/dL (8.5-10.1) L Magnesium Level 1.9 mg/dL (1.8-2.4) Random Vancomycin Level 17.3 mcg/mL Hepatitis B Surface Antibody Nonreactive Laboratory Tests 08/05/21 06:10 Laboratory Tests 08/05/21 06:10 ECHOCARDIOGRAM ECHOCARDIOGRAM <Conclusion> Technically difficult study. The left ventricle is normal size. The left ventricular systolic function is grossly normal. LV Ejection Fraction of 55-60%. Septal motion consistent with conduction abnormality. There is borderline to mild concentric left ventricular hypertrophy. There is a pacemaker lead in the right ventricle. The aortic valve is calcified and displays decreased opening. Doppler and Color Flow revealed trace to mild aortic regurgitation. There appears to be moderate to moderately severe valvular aortic stenosis. The mitral valve is calcified and displays decreased opening. There is moderate mitral valve stenosis with a mean gradient of 7.01 mmHg. Doppler and Color-flow revealed trace to mild mitral regurgitation. Doppler and Color Flow revealed trace to mild tricuspid regurgitation with an estimated PAP of 50 mmHg. DATE: 04/20/21 [id number] STRESS TEST STRESS TEST There is normal radiotracer accumulation in the stomach and vascular blood pool. There is no abnormal accumulation of radiotracer, however examination is suboptimal and considered nondiagnostic. IMPRESSION: Nondiagnostic examination as patient refused imaging after 6 minutes. DATE: 08/20/18 1150 HEART CATH HEART CATH Findings. Hemodynamics. Left ventricular pressure of 128/12/20, aortic root 126/72. Coronaries. Left main. The left main was a short vessel with no lesions. Left anterior descending. The LAD was a moderate size vessel with normal distribution. It had mild mid tapering of 10-15%. Left circumflex. The left circumflex was a moderate size vessel. It had no lesions. Right coronary artery. The right coronary was a moderate size vessel. It had no lesions. <Conclusion> There is mild single-vessel coronary artery disease with a mid tapering of 10- 15% in the LAD. LVEDP of 20 mmHg. DATE: 10/10/18 1303 Coronary angiography: LM: Large caliber vessel with normal angiographic appearance. LAD: Moderate to large caliber vessel with normal angiographic appearance. D1-D2: Small caliber vessels with normal angiographic appearance LCX: Moderate to large caliber vessel with normal angiographic appearance. OM1: Moderate to large caliber vessel with normal angiographic appearance. RCA: Large caliber dominant vessel with normal angiographic appearance Conclusion 1. Biventricular volume overload. 2. Secondary pulmonary hypertension, mean PA 38 mmHg 3. Normal cardiac output 4. Normal angiographic appearance of the coronary arteries 5. Successful insertion of a left IJ transvenous pacemaker and removal of right groin transvenous pacemaker Recommendations 1. We will plan on referral to [facility] for evaluation of a [employer] Micra AV leadless pacemaker given that the patient has limited venous access due to right-sided hemodialysis fistula, right IJ subtotal occlusion and in order to preserve future dialysis access given his preserved LV function and appropriate sinus node function he will be considered for a leadless pacemaker placement. 2. He will also need subsequent evaluation on an outpatient basis for transcatheter aortic valve replacement versus surgical aortic valve replacement. 3. Await transfer to [facility]. DATE: 04/22/21 [id number] ASSESSMENT/PLAN ASSESSMENT/PLAN 1. Encephalopathy, possible stroke with left-sided weakness 2. Acute respiratory failure; multifactorial 3. Leukocytosis, Sepsis; BC + GPC 4. Septic shock; requiring pressor support 5. UTI with suprapubic cath 6. ESRD on HD, hyperkalemia 7. Arrhythmia; brief burst of NSVT on tele while on HD 8. Acute on chronic diastolic CHF; Echo 04/13 with preserved LV systolic function. LHC 04/13 with normal coronaries 9. Valvular disease 10. SSS s/p leadless PPM 11. Moderate secondary pulmonary HTN 12. Hypothyroidism 13. Elevated LFTs Recommendations Check Mg, replace if < 2.0 Pressor support Ongoing antibiotic therapy, treatment of sepsis Fluid offloading via HD Supportive care from a CV standpoint MARIANN TIRADO MD 08/06/21 2226: CARDIAC CONSULT ASSESSMENT/PLAN ASSESSMENT/PLAN Late entry for 08/05/21 Pt. seen and examined. 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 Supportive care. Thanks NOEMI BARR APRN Aug 05, 2021 12:49 MARIANN TIRADO MD Aug 06, 2021 22:26
[2021-08-05] MEDS: DEXTROSE 50% 25 GM / 50ML DISP.SYRIN. IV PRN ×2 (12:53→18:30)
[2021-08-05] MEDS ORDERED: VANCOMYCIN 500 MG in IV NORMAL SALINE 100ML 100 ML IV SCH (16:00)
[2021-08-05] MEDS ORDERED: MAGNESIUM SULFATE 2GM 50 ML IV ONE (16:30)
--- NOTE | 2021-08-05 17:03 | PDOC ---
Provider Note Date of Service: DATE: 08/05/21 TIME: 17:00 Provider Note Called for arterial line placement. Permit obtained. Sterile technique used. No. 20 gauge arterial catheter placed into left radial artery with ultrasound guidance. Good waveform noted. Secured in place. No complications. Gm Barajas MD Justifications for Admission Other Justification SBO GM BARAJAS MD Aug 05, 2021 17:03
[2021-08-05] MEDS: MIDAZOLAM 100mg/100ml NS BAG 100 ML IV PRN (20:45)
[2021-08-06] VITALS (32 sets, daily range): BP systolic 100–154; BP diastolic 46–80
[2021-08-06] MEDS: VASOPRESSIN - VASOSTRICT 20 UNIT in IV DEXTROSE 5% 100ML 100 ML IV PRN ×3 (01:32→21:07)
--- NOTE | 2021-08-06 04:49 | RAD ---
XR CHEST 1V History: Reason: vent management 115 / Spl. Instructions: / History: Comparison: August 05, 2021 Findings: Diffuse interstitial thickening with ill-defined opacities, similar compared to prior. No pleural eff usion. No pneumothorax. Stable endotracheal tube, enteric tube and right IJ central line. Impression: 1. Stable appearance of the chest compared to prior. Electronically signed by: Davis Livingston DO (08/06/2021 4:47 AM) [facility] – [place]
[2021-08-06] MEDS: PIPERACILLIN/TAZOBACTAM 2.25 GM in IV NORMAL SALINE 50ML 50 ML IV SCH ×3 (06:08→21:58)
[2021-08-06 06:15] LABS: HEMATOCRIT 33.1 % (39.0-53.0); HEMOGLOBIN 10.8 g/dL (13.0-17.5); RED BLOOD COUNT 3.4 x10^6/uL (4.30-5.70); RED CELL DISTRIBUTION WIDTH 17.3 % (11.5-14.5); WHITE BLOOD COUNT 15.2 x10^3/uL (4.0-11.0)
[2021-08-06 06:33] LABS: MAGNESIUM 2.6 mg/dL (1.8-2.4); PHOSPHORUS 5.5 mg/dL (2.6-4.7)
[2021-08-06 06:37] LABS: ALBUMIN 2.7 g/dL (3.4-5.0); ALBUMIN/GLOBULIN RATIO 0.6 (1.0-1.7); CALCIUM 7.2 mg/dL (8.5-10.1); CREATININE 5.8 mg/dL (0.7-1.3); GFR 10.1; POTASSIUM 4.5 mmol/L (3.5-5.1); TOTAL PROTEIN 7.2 g/dL (6.4-8.2)
--- NOTE | 2021-08-06 08:26 | PDOC ---
PROGRESS NOTES Date of Service DATE: 08/06/21 TIME: 08:24 Assessment Problems Medical Problems: (1) Hypoxia Status: Acute (2) Respiratory failure Status: Acute (3) Sepsis Status: Acute (4) Stroke Status: Acute (5) UTI (urinary tract infection) Status: Acute Possible stroke but with the hypotension, respiratory failure, probable sepsis, the diagnosis is in doubt. Note negative CT and CT angiogram Fever, sepsis requiring pressors due to hypotension, respiratory failure, end- stage renal disease, congestive heart failure, cardiomyopathy status-post pacemaker Note normal hemoglobin A1c and lipid profile Plan Head CT has been on hold because he is hemodynamically unstable to transport, hopefully will get it this morning Treat medical issues Neurology will see as needed over the weekend Subjective none Objective Vital Signs Date Time Temp Pulse Resp B/P (MAP) Pulse Ox O2 Delivery O2 Flow Rate FiO2 08/06/21 08:00 Mechanical Ventilator 08/06/21 06:00 101 20 135/50 100 08/06/21 05:29 15.0 08/06/21 04:00 99.9 99.9 Intake and Output 08/06/21 07:00 Intake Total 3729.35 ml Output Total 100 ml Balance 3629.35 ml Intake IV Total 1421.35 ml Tube Feeding 1508 ml Other 800 ml Output Urine Total 0 ml Gastric Drainage Total 100 ml PHYSICAL EXAM Sedated on ventilator, opens eyes a little bit to slight painful stimulation PERRL. EOMI. CN: no focal findings. Muscle tone: normal. Muscle strength: Minimal movement, moves the right side more than the left DTR: 2+ Plantar reflex: Silent Gait: not examined in bed. Sensory exam: Not cooperative. Cerebellar: not cooperative Review of Relevant I have reviewed the following items allyson (where applicable) has been applied. Labs Laboratory Tests Test 08/05/21 06:10 08/05/21 12:00 08/05/21 12:44 08/05/21 12:56 White Blood Count 29.0 x10^3/uL (4.0-11.0) Red Blood Count 3.80 x10^6/uL (4.30-5.70) Hemoglobin 12.2 g/dL (13.0-17.5) Hematocrit 37.6 % (39.0-53.0) Mean Corpuscular Volume 99 fL (79-100) Mean Corpuscular Hemoglobin 32 pg (25-35) Mean Corpuscular Hemoglobin Concent 32 g/dL (31-37) Red Cell Distribution Width 17.4 % (11.5-14.5) Platelet Count 136 x10^3/uL (140-400) Sodium Level 131 mmol/L (136-145) Potassium Level 6.9 mmol/L (3.5-5.1) Chloride Level 96 mmol/L (98-107) Carbon Dioxide Level 17 mmol/L (21-32) Anion Gap 18 (6-14) Blood Urea Nitrogen 68 mg/dL (8-26) Creatinine 8.9 mg/dL (0.7-1.3) Estimated GFR (Cockcroft-Gault) 6.2 Glucose Level 52 mg/dL (70-99) Calcium Level 6.6 mg/dL (8.5-10.1) Magnesium Level 1.9 mg/dL (1.8-2.4) Random Vancomycin Level 17.3 mcg/mL Hepatitis B Surface Antibody Nonreactive O2 Saturation 98 % (92-99) Arterial Blood pH 7.45 (7.35-7.45) Arterial Blood pCO2 at Patient Temp 36 mmHg (35-46) Arterial Blood pO2 at Patient Temp 126 mmHg (75-108) Arterial Blood HCO3 24 mmol/L (21-28) Arterial Blood Base Excess 1 mmol/L (-3-3) FiO2 35/vent Glucose (Fingerstick) 58 mg/dL (70-99) 117 mg/dL (70-99) Test 08/05/21 16:26 08/05/21 18:23 08/05/21 18:45 08/06/21 06:00 Glucose (Fingerstick) 78 mg/dL (70-99) 65 mg/dL (70-99) 109 mg/dL (70-99) White Blood Count 15.2 x10^3/uL (4.0-11.0) Red Blood Count 3.40 x10^6/uL (4.30-5.70) Hemoglobin 10.8 g/dL (13.0-17.5) Hematocrit 33.1 % (39.0-53.0) Mean Corpuscular Volume 97 fL (79-100) Mean Corpuscular Hemoglobin 32 pg (25-35) Mean Corpuscular Hemoglobin Concent 33 g/dL (31-37) Red Cell Distribution Width 17.3 % (11.5-14.5) Platelet Count 107 x10^3/uL (140-400) Sodium Level 132 mmol/L (136-145) Potassium Level 4.5 mmol/L (3.5-5.1) Chloride Level 97 mmol/L (98-107) Carbon Dioxide Level 23 mmol/L (21-32) Anion Gap 12 (6-14) Blood Urea Nitrogen 43 mg/dL (8-26) Creatinine 5.8 mg/dL (0.7-1.3) Estimated GFR (Cockcroft-Gault) 10.1 BUN/Creatinine Ratio 7 (6-20) Glucose Level 75 mg/dL (70-99) Calcium Level 7.2 mg/dL (8.5-10.1) Phosphorus Level 5.5 mg/dL (2.6-4.7) Magnesium Level 2.6 mg/dL (1.8-2.4) Total Bilirubin 1.0 mg/dL (0.2-1.0) Aspartate Amino Transf (AST/SGOT) 158 U/L (15-37) Alanine Aminotransferase (ALT/SGPT) 91 U/L (16-63) Alkaline Phosphatase 106 U/L (46-116) Total Protein 7.2 g/dL (6.4-8.2) Albumin 2.7 g/dL (3.4-5.0) Albumin/Globulin Ratio 0.6 (1.0-1.7) Test 08/06/21 06:04 Glucose (Fingerstick) 78 mg/dL (70-99) Laboratory Tests Test 08/05/21 12:00 08/05/21 12:44 08/05/21 12:56 08/05/21 16:26 O2 Saturation 98 % (92-99) Arterial Blood pH 7.45 (7.35-7.45) Arterial Blood pCO2 at Patient Temp 36 mmHg (35-46) Arterial Blood pO2 at Patient Temp 126 mmHg (75-108) Arterial Blood HCO3 24 mmol/L (21-28) Arterial Blood Base Excess 1 mmol/L (-3-3) FiO2 35/vent Glucose (Fingerstick) 58 mg/dL (70-99) 117 mg/dL (70-99) 78 mg/dL (70-99) Test 08/05/21 18:23 08/05/21 18:45 08/06/21 06:00 08/06/21 06:04 Glucose (Fingerstick) 65 mg/dL (70-99) 109 mg/dL (70-99) 78 mg/dL (70-99) White Blood Count 15.2 x10^3/uL (4.0-11.0) Red Blood Count 3.40 x10^6/uL (4.30-5.70) Hemoglobin 10.8 g/dL (13.0-17.5) Hematocrit 33.1 % (39.0-53.0) Mean Corpuscular Volume 97 fL (79-100) Mean Corpuscular Hemoglobin 32 pg (25-35) Mean Corpuscular Hemoglobin Concent 33 g/dL (31-37) Red Cell Distribution Width 17.3 % (11.5-14.5) Platelet Count 107 x10^3/uL (140-400) Sodium Level 132 mmol/L (136-145) Potassium Level 4.5 mmol/L (3.5-5.1) Chloride Level 97 mmol/L (98-107) Carbon Dioxide Level 23 mmol/L (21-32) Anion Gap 12 (6-14) Blood Urea Nitrogen 43 mg/dL (8-26) Creatinine 5.8 mg/dL (0.7-1.3) Estimated GFR (Cockcroft-Gault) 10.1 BUN/Creatinine Ratio 7 (6-20) Glucose Level 75 mg/dL (70-99) Calcium Level 7.2 mg/dL (8.5-10.1) Phosphorus Level 5.5 mg/dL (2.6-4.7) Magnesium Level 2.6 mg/dL (1.8-2.4) Total Bilirubin 1.0 mg/dL (0.2-1.0) Aspartate Amino Transf (AST/SGOT) 158 U/L (15-37) Alanine Aminotransferase (ALT/SGPT) 91 U/L (16-63) Alkaline Phosphatase 106 U/L (46-116) Total Protein 7.2 g/dL (6.4-8.2) Albumin 2.7 g/dL (3.4-5.0) Albumin/Globulin Ratio 0.6 (1.0-1.7) Microbiology 08/03/21 Blood Culture - Final, Complete 08/03/21 Urine Culture - Final, Complete Medications Current Medications Sodium Chloride 1,000 ml @ 1,000 mls/hr 1X ONCE IV Last administered on 08/03/21at 11:26; Start 08/03/21 at 11:15; Stop 08/03/21 at 12:14; Status DC Piperacillin Sod/ Tazobactam Sod 4.5 gm/Sodium Chloride 100 ml @ 200 mls/hr 1X ONCE IV Last administered on 08/03/21at 11:26; Start 08/03/21 at 11:15; Stop 08/03/21 at 11:44; Status DC Vancomycin HCl 1.5 gm/Sodium Chloride 500 ml @ 250 mls/hr 1X ONCE IV Last administered on 08/03/21at 12:00; Start 08/03/21 at 12:00; Stop 08/03/21 at 13:59; Status DC Iohexol (Omnipaque 300 Mg/ml) 75 ml 1X ONCE IV Last administered on 08/03/21at 11:29; Start 08/03/21 at 11:15; Stop 08/03/21 at 11:16; Status DC Info (CONTRAST GIVEN -- Rx MONITORING) 1 each PRN DAILY PRN MC SEE COMMENTS; Start 08/03/21 at 11:15; Stop 08/05/21 at 11:14; Status DC Fentanyl Citrate 30 ml @ 2.5 mls/hr CONT PRN IV SEE PROTOCOL; Start 08/03/21 at 12:15; Status Cancel Propofol 100 ml @ 2.235 mls/ hr CONT PRN IV PER PROTOCOL Last administered on 08/03/21at 12:31; Start 08/03/21 at 12:15; Stop 08/04/21 at 07:38; Status DC Chlorhexidine Gluconate (Peridex) 15 ml BID MM ; Start 08/03/21 at 21:00; Status Cancel Glycerin/ Hypromellose/ Polyethylene (Artificial Tears) 1 drop PRN Q1HR PRN OU DRY EYE; Start 08/03/21 at 12:15; Stop 08/03/21 at 21:15; Status DC Dexmedetomidine HCl 400 mcg/ Sodium Chloride 100 ml @ 3.725 mls/ hr CONT PRN IV PER PROTOCOL; Start 08/03/21 at 12:15; Stop 08/03/21 at 21:15; Status DC Midazolam HCl (Versed) 5 mg PRN 1X PRN IVP VENT INDUCTION Last administered on 08/03/21at 14:12; Start 08/03/21 at 12:15; Stop 08/03/21 at 14:12; Status DC Etomidate (Amidate) 10 mg 1X ONCE IV Last administered on 08/03/21at 12:48; Start 08/03/21 at 12:45; Stop 08/03/21 at 12:46; Status DC Rocuronium Venetie (Zemuron) 100 mg 1X ONCE IV Last administered on 08/03/21at 12:45; Start 08/03/21 at 12:45; Stop 08/03/21 at 12:46; Status DC Sodium Chloride 250 ml @ 250 mls/hr 1X ONCE IV Last administered on 08/03/21at 14:21; Start 08/03/21 at 14:30; Stop 08/03/21 at 15:29; Status DC Fentanyl Citrate 30 ml @ 2.5 mls/hr CONT PRN IV SEE PROTOCOL Last administered on 08/06/21at 04:59; Start 08/03/21 at 15:00 Midazolam HCl 100 ml @ 1 mls/hr CONT PRN IV SEE PROTOCOL Last administered on 08/05/21at 20:45; Start 08/03/21 at 15:00 Propofol 100 ml @ 2.235 mls/ hr CONT PRN IV PER PROTOCOL; Start 08/03/21 at 15:00 Vecuronium Venetie (Norcuron Bolus) 6 mg PRN 1X PRN IV VENT INDUCTION; Start 08/03/21 at 15:00; Stop 08/04/21 at 14:59; Status DC Chlorhexidine Gluconate (Peridex) 15 ml BID MM ; Start 08/03/21 at 21:00; Stop 08/04/21 at 19:49; Status DC Glycerin/ Hypromellose/ Polyethylene (Artificial Tears) 1 drop PRN Q1HR PRN OU DRY EYE; Start 08/03/21 at 15:00 Dexmedetomidine HCl 400 mcg/ Sodium Chloride 100 ml @ 3.725 mls/ hr CONT PRN IV PER PROTOCOL; Start 08/03/21 at 15:00 Midazolam HCl (Versed) 5 mg PRN 1X PRN IVP VENT INDUCTION; Start 08/03/21 at 15:00; Stop 08/04/21 at 14:59; Status DC Sodium Chloride 500 ml @ 500 mls/hr 1X PRN PRN IV SEE COMMENTS; Start 08/03/21 at 15:00 Atropine Sulfate (ATROPINE 0.5mg SYRINGE) 0.5 mg PRN Q5MIN PRN IV SEE COMMENTS; Start 08/03/21 at 15:00 Famotidine (Pepcid Vial) 20 mg BID IVP Last administered on 08/03/21at 21:00; Start 08/03/21 at 21:00; Stop 08/04/21 at 07:59; Status DC Norepinephrine Bitartrate 8 mg/ Dextrose 258 ml @ 14.416 mls/ hr CONT PRN IV PER PROTOCOL Last administered on 08/04/21at 03:52; Start 08/03/21 at 15:00; Stop 08/04/21 at 05:29; Status DC Etomidate (Amidate) 20 mg STK-MED ONCE IV ; Start 08/03/21 at 17:04; Stop 08/03/21 at 17:04; Status DC Rocuronium Venetie (Zemuron) 50 mg STK-MED ONCE .ROUTE ; Start 08/03/21 at 17:04; Stop 08/03/21 at 17:04; Status DC Acetaminophen (Tylenol Supp) 650 mg PRN Q6HRS PRN HI MILD PAIN / TEMP > 100.3'F Last administered on 08/04/21at 20:25; Start 08/03/21 at 20:45 Acetaminophen (Tylenol) 650 mg PRN Q6HRS PRN PEG MILD PAIN / TEMP > 100.3'F; Start 08/03/21 at 20:45 Vasopressin 20 unit/Dextrose 101 ml @ 12 mls/hr CONT PRN IV SEE I/O RECORD Last administered on 08/06/21at 01:32; Start 08/04/21 at 03:45 Norepinephrine Bitartrate 32 mg/ Dextrose 250 ml @ 3.492 mls/ hr CONT PRN IV SEE I/O RECORD Last administered on 08/05/21at 20:44; Start 08/04/21 at 05:30 Phenylephrine HCl 50 mg/Sodium Chloride 255 ml @ 11.399 mls/ hr CONT PRN IV PER PROTOCOL Last administered on 08/05/21at 05:38; Start 08/04/21 at 06:30 Piperacillin Sod/ Tazobactam Sod 2.25 gm/Sodium Chloride 50 ml @ 100 mls/hr Q8HRS IV Last administered on 08/06/21at 06:08; Start 08/04/21 at 08:00 Vancomycin HCl (Vanco Per Pharmacy) 1 each PRN DAILY PRN MC SEE COMMENTS Last administered on 08/05/21at 10:19; Start 08/04/21 at 08:00 Famotidine (Pepcid Vial) 20 mg QODAY IVP Last administered on 08/04/21at 10:36; Start 08/04/21 at 09:00 Vancomycin HCl (Vanco Per Pharmacy) 1 each PRN DAILY PRN MC SEE COMMENTS; Start 08/04/21 at 08:00; Status UNV Piperacillin Sod/ Tazobactam Sod 2.25 gm/Sodium Chloride 50 ml @ 100 mls/hr Q6HRS IV ; Start 08/04/21 at 12:00; Status UNV Ciprofloxacin/ Dextrose 200 ml @ 200 mls/hr DAILY IV Last administered on 08/04/21at 11:38; Start 08/04/21 at 09:00; Stop 08/05/21 at 09:18; Status DC Lidocaine HCl (Xylocaine-Mpf 1% 5ml Vial) 5 ml 1X ONCE INJ ; Start 08/04/21 at 09:30; Stop 08/04/21 at 09:31; Status DC Lidocaine HCl (Buffered Lidocaine 1%) 3 ml STK-MED ONCE .ROUTE ; Start 08/04/21 at 12:33; Stop 08/04/21 at 12:33; Status DC Iohexol (Omnipaque 240 Mg/ml) 50 ml STK-MED ONCE .ROUTE ; Start 08/04/21 at 12:36; Stop 08/04/21 at 12:36; Status DC Lidocaine HCl (Buffered Lidocaine 1%) 3 ml 1X ONCE IJ Last administered on 08/04/21at 13:15; Start 08/04/21 at 13:30; Stop 08/04/21 at 13:31; Status DC Iohexol (Omnipaque 300 Mg/ml) 50 ml 1X ONCE IART ; Start 08/04/21 at 13:30; Stop 08/04/21 at 13:31; Status DC Vancomycin HCl (Vancomycin Random Level) 1 each 1X ONCE MC Last administered on 08/05/21at 06:14; Start 08/05/21 at 06:00; Stop 08/05/21 at 06:01; Status DC Albumin Human 100 ml @ 100 mls/hr PRN DAILY PRN IV SEE COMMENTS Last administered on 08/05/21at 09:49; Start 08/05/21 at 08:15 Sodium Chloride 1,000 ml @ 1,000 mls/hr Q1H PRN IV hypotension; Start 08/05/21 at 09:15; Stop 08/05/21 at 15:14; Status DC Sodium Chloride 1,000 ml @ 400 mls/hr Q2H30M PRN IV PATENCY; Start 08/05/21 at 09:15; Stop 08/05/21 at 21:14; Status DC Info (PHARMACY MONITORING -- do not chart) 1 each PRN DAILY PRN MC SEE COMMENTS; Start 08/05/21 at 09:15 Vancomycin HCl 500 mg/Sodium Chloride 100 ml @ 100 mls/hr QTUTHSA IV Last administered on 08/05/21at 15:59; Start 08/05/21 at 16:00 Heparin Sodium (Porcine) (Heparin Sodium) 5,000 unit Q12HR SQ Last administered on 08/05/21at 21:48; Start 08/05/21 at 11:00 Dextrose (Dextrose 50%-Water Syringe) 25 gm STK-MED ONCE IV ; Start 08/05/21 at 12:45; Stop 08/05/21 at 12:45; Status DC Dextrose (Dextrose 50%-Water Syringe) 12.5 gm PRN Q15MIN PRN IV SEE COMMENTS Last administered on 08/05/21at 18:30; Start 08/05/21 at 13:00 Magnesium Sulfate 50 ml @ 25 mls/hr 1X ONCE IV Last administered on 08/05/21at 16:59; Start 08/05/21 at 16:30; Stop 08/05/21 at 18:29; Status DC Active Scripts Active Reported Tums (Calcium Carbonate) 200 Mg Tab.chew 400 Mg PO HS Sensipar (Cinacalcet Hcl) 60 Mg Tablet 1 Tab PO DAILY 30 Days Ferric Citrate 210 Mg Tablet 2 Tab PO TID 30 Days Lasix (Furosemide) 40 Mg Tablet 40 Mg PO BID Renagel (Sevelamer Hcl) 800 Mg Tablet 2 Tab PO TIDWMEALS Kapspargo Sprinkle (Metoprolol Succinate) 50 Mg Cap.spr.24 50 Mg PO DAILY Vitals/I & O Vital Sign - Last 24 Hours 08/05/21 08/05/21 08/05/21 08/05/21 08:45 09:00 09:25 10:00 Pulse 104 104 106 Resp 24 24 24 B/P (MAP) 85/49 96/51 140/46 Pulse Ox 99 99 99 99 O2 Delivery Ventilator Ventilator Ventilator Ventilator 08/05/21 08/05/21 08/05/21 08/05/21 10:15 10:30 10:45 11:00 Pulse 110 106 106 104 B/P (MAP) 152/52 156/50 126/48 158/50 08/05/21 08/05/21 08/05/21 08/05/21 12:00 12:15 12:27 12:30 Temp 98.6 98.6 Pulse 102 104 106 Resp 20 B/P (MAP) 186/52 184/52 140/50 Pulse Ox 100 100 O2 Delivery Ventilator Ventilator 08/05/21 08/05/21 08/05/21 08/05/21 13:00 13:15 13:30 13:45 Pulse 106 108 106 106 Resp 20 B/P (MAP) 98/46 188/54 170/52 204/56 Pulse Ox 100 O2 Delivery Ventilator 08/05/21 08/05/21 08/05/21 08/05/21 14:00 14:15 14:30 14:45 Pulse 106 106 104 104 Resp 20 B/P (MAP) 186/54 170/52 172/52 170/52 Pulse Ox 100 O2 Delivery Ventilator 08/05/21 08/05/21 08/05/21 08/05/21 15:00 16:00 16:15 16:29 Temp 99.0 99.0 Pulse 102 99 98 Resp 20 20 B/P (MAP) 160/50 162/51 164/52 Pulse Ox 100 99 100 O2 Delivery Ventilator Ventilator Ventilator 08/05/21 08/05/21 08/05/21 08/05/21 16:30 16:45 17:00 17:15 Pulse 97 97 98 Resp 20 B/P (MAP) 138/53 122/41 137/50 126/49 Pulse Ox 99 O2 Delivery Ventilator 08/05/21 08/05/21 08/05/21 08/05/21 17:19 17:30 17:49 18:00 Pulse 97 100 Resp 20 20 20 B/P (MAP) 130/54 126/50 Pulse Ox 99 100 99 O2 Delivery Ventilator Ventilator Ventilator 08/05/21 08/05/21 08/05/21 08/05/21 19:00 20:00 20:00 20:58 Temp 99.1 99.1 Pulse 100 100 Resp 20 20 B/P (MAP) 131/48 132/48 Pulse Ox 100 100 100 O2 Delivery Ventilator Ventilator Mechanical Ventilator Ventilator 08/05/21 08/05/21 08/05/21 08/06/21 21:00 22:00 23:00 00:00 Temp 98.8 98.8 Pulse 100 100 100 93 Resp 20 20 20 20 B/P (MAP) 134/50 146/52 146/52 136/57 Pulse Ox 100 100 100 100 O2 Delivery Ventilator Ventilator Ventilator Ventilator 08/06/21 08/06/21 08/06/21 08/06/21 00:17 01:00 02:00 03:00 Pulse 97 101 101 Resp 20 20 20 B/P (MAP) 120/48 122/49 124/50 Pulse Ox 100 99 100 100 O2 Delivery Ventilator Ventilator Ventilator Ventilator 08/06/21 08/06/21 08/06/21 08/06/21 04:00 04:09 04:59 05:00 Temp 99.9 99.9 Pulse 101 98 Resp 20 20 20 B/P (MAP) 131/51 125/49 Pulse Ox 100 98 100 100 O2 Delivery Ventilator Ventilator Ventilator Ventilator O2 Flow Rate 15.0 08/06/21 08/06/21 08/06/21 05:29 06:00 08:00 Pulse 101 Resp 20 B/P (MAP) 135/50 Pulse Ox 100 100 O2 Delivery Ventilator Mechanical Ventilator O2 Flow Rate 15.0 Intake and Output 08/05/21 08/05/21 08/06/21 15:00 23:00 07:00 Intake Total 1033.9 ml 1199.05 ml 1496.4 ml Output Total 100 ml 0 ml 0 ml Balance 933.9 ml 1199.05 ml 1496.4 ml Justicifation of Admission Dx: Justifications for Admission: Justification of Admission Dx: N/A REID HERNANDEZ MD Aug 06, 2021 08:26
[2021-08-06 08:57] LABS: BASE EXCESS ABG 0 mmol/L (-3-3); HCO3 ABG 25 mmol/L (21-28); PCO2 ABG 39 mmHg (35-46); PO2 ABG 134 mmHg (75-108); SAT O2 ABG 98 % (92-99)
[2021-08-06 09:00] LABS: FIO2 ABG 35
[2021-08-06] MEDS: HEPARIN for SUB-Q USE 5,000 UNIT/ML VIAL. SQ SCH ×2 (09:08→21:09)
[2021-08-06] MEDS: FAMOTIDINE 20 MG/2 ML VIAL IVP SCH (09:08)
[2021-08-06] MEDS: NOREPINEPHRINE VIAL 32 MG in IV D5W 250ML IV PRN (09:09)
--- NOTE | 2021-08-06 09:09 | PDOC ---
Infectious Disease Note Subjective Subjective Patient is intubated sedated ROS ROS no n/v/d/ Vital Sign Vital Signs Vital Signs Date Time Temp Pulse Resp B/P (MAP) Pulse Ox O2 Delivery O2 Flow Rate FiO2 08/06/21 08:41 100 Ventilator 08/06/21 06:00 101 20 135/50 08/06/21 05:29 15.0 08/06/21 04:00 99.9 99.9 Physical Exam PHYSICAL EXAM GENERAL: Sedated, orally intubated gentleman, not in distress. VITAL SIGNS: Stable though on vasopressor support HEENT: Both pupils are round and reacting. No conjunctival lesion. NECK: Supple. No JVP. Mouth cannot be visualized. Orally intubated. LUNGS: Decreased breath sounds bilaterally. HEART: S1, S2 regular. No gallop or murmur. ABDOMEN: Soft, nontender. No organomegaly. Suprapubic catheter is now looking good with normal looking urine. EXTREMITIES: No edema, cyanosis. SKIN: Unremarkable. AV shunt in the right upper extremity is unremarkable. NEUROLOGIC: The patient cannot be judged as sedated and intubated. Labs Lab Laboratory Tests Test 08/05/21 12:00 08/05/21 12:44 08/05/21 12:56 08/05/21 16:26 O2 Saturation 98 % (92-99) Arterial Blood pH 7.45 (7.35-7.45) Arterial Blood pCO2 at Patient Temp 36 mmHg (35-46) Arterial Blood pO2 at Patient Temp 126 mmHg (75-108) Arterial Blood HCO3 24 mmol/L (21-28) Arterial Blood Base Excess 1 mmol/L (-3-3) FiO2 35/vent Glucose (Fingerstick) 58 mg/dL (70-99) 117 mg/dL (70-99) 78 mg/dL (70-99) Test 08/05/21 18:23 08/05/21 18:45 08/06/21 06:00 08/06/21 06:04 Glucose (Fingerstick) 65 mg/dL (70-99) 109 mg/dL (70-99) 78 mg/dL (70-99) White Blood Count 15.2 x10^3/uL (4.0-11.0) Red Blood Count 3.40 x10^6/uL (4.30-5.70) Hemoglobin 10.8 g/dL (13.0-17.5) Hematocrit 33.1 % (39.0-53.0) Mean Corpuscular Volume 97 fL (79-100) Mean Corpuscular Hemoglobin 32 pg (25-35) Mean Corpuscular Hemoglobin Concent 33 g/dL (31-37) Red Cell Distribution Width 17.3 % (11.5-14.5) Platelet Count 107 x10^3/uL (140-400) Sodium Level 132 mmol/L (136-145) Potassium Level 4.5 mmol/L (3.5-5.1) Chloride Level 97 mmol/L (98-107) Carbon Dioxide Level 23 mmol/L (21-32) Anion Gap 12 (6-14) Blood Urea Nitrogen 43 mg/dL (8-26) Creatinine 5.8 mg/dL (0.7-1.3) Estimated GFR (Cockcroft-Gault) 10.1 BUN/Creatinine Ratio 7 (6-20) Glucose Level 75 mg/dL (70-99) Calcium Level 7.2 mg/dL (8.5-10.1) Phosphorus Level 5.5 mg/dL (2.6-4.7) Magnesium Level 2.6 mg/dL (1.8-2.4) Total Bilirubin 1.0 mg/dL (0.2-1.0) Aspartate Amino Transf (AST/SGOT) 158 U/L (15-37) Alanine Aminotransferase (ALT/SGPT) 91 U/L (16-63) Alkaline Phosphatase 106 U/L (46-116) Total Protein 7.2 g/dL (6.4-8.2) Albumin 2.7 g/dL (3.4-5.0) Albumin/Globulin Ratio 0.6 (1.0-1.7) Test 08/06/21 08:50 O2 Saturation 98 % (92-99) Arterial Blood pH 7.41 (7.35-7.45) Arterial Blood pCO2 at Patient Temp 39 mmHg (35-46) Arterial Blood pO2 at Patient Temp 134 mmHg (75-108) Arterial Blood HCO3 25 mmol/L (21-28) Arterial Blood Base Excess 0 mmol/L (-3-3) FiO2 35 Micro Blood culture all bottles positive with staph aureus Objective Assessment IMPRESSION: 1. Encephalopathy. 2. Fever. 3. Complicated urinary tract infection with sepsis. 4. Hypotension. 5. Respiratory failure, requiring intubation. 6. Suspected cerebrovascular accident. 7. End-stage renal disease, on hemodialysis. 8. Congestive heart failure. 9. History of hypertension. 10 blood culture positive staph species Plan Plan of Care Continue antibiotics vancomycin and Zosyn Supportive care Follow cultures ct chest abd and pelvis repeat CHAPIN VALERIO MD Aug 06, 2021 09:09
[2021-08-06] MEDS ORDERED: IOHEXOL 300 MG/ML 100ML VIAL. IV ONE (09:30)
[2021-08-06] MEDS ORDERED: CONTRAST GIVEN. MC PRN (09:45)
--- NOTE | 2021-08-06 09:46 | PDOC ---
SANJEEV PASTOR WAREHOUSE LOADER 08/06/21 0946: CARDIO Progress Notes Date and Time Date of Service 08/06/2021 Time of Evaluation 0930 Subjective Subjective: Other (sedated) Vitals Vitals Vital Signs Date Time Temp Pulse Resp B/P (MAP) Pulse Ox O2 Delivery O2 Flow Rate FiO2 08/06/21 08:41 100 Ventilator 08/06/21 06:00 101 20 135/50 08/06/21 05:29 15.0 08/06/21 04:00 99.9 99.9 Weight Weight [ ] Input and Output Intake and Output Intake and Output 08/06/21 07:00 Intake Total 3729.35 ml Output Total 100 ml Balance 3629.35 ml Intake IV Total 1421.35 ml Tube Feeding 1508 ml Other 800 ml Output Urine Total 0 ml Gastric Drainage Total 100 ml Laboratory Labs Laboratory Tests Test 08/05/21 12:00 08/05/21 12:44 08/05/21 12:56 08/05/21 16:26 O2 Saturation 98 % (92-99) Arterial Blood pH 7.45 (7.35-7.45) Arterial Blood pCO2 at Patient Temp 36 mmHg (35-46) Arterial Blood pO2 at Patient Temp 126 mmHg (75-108) Arterial Blood HCO3 24 mmol/L (21-28) Arterial Blood Base Excess 1 mmol/L (-3-3) FiO2 35/vent Glucose (Fingerstick) 58 mg/dL (70-99) 117 mg/dL (70-99) 78 mg/dL (70-99) Test 08/05/21 18:23 08/05/21 18:45 08/06/21 06:00 08/06/21 06:04 Glucose (Fingerstick) 65 mg/dL (70-99) 109 mg/dL (70-99) 78 mg/dL (70-99) White Blood Count 15.2 x10^3/uL (4.0-11.0) Red Blood Count 3.40 x10^6/uL (4.30-5.70) Hemoglobin 10.8 g/dL (13.0-17.5) Hematocrit 33.1 % (39.0-53.0) Mean Corpuscular Volume 97 fL (79-100) Mean Corpuscular Hemoglobin 32 pg (25-35) Mean Corpuscular Hemoglobin Concent 33 g/dL (31-37) Red Cell Distribution Width 17.3 % (11.5-14.5) Platelet Count 107 x10^3/uL (140-400) Sodium Level 132 mmol/L (136-145) Potassium Level 4.5 mmol/L (3.5-5.1) Chloride Level 97 mmol/L (98-107) Carbon Dioxide Level 23 mmol/L (21-32) Anion Gap 12 (6-14) Blood Urea Nitrogen 43 mg/dL (8-26) Creatinine 5.8 mg/dL (0.7-1.3) Estimated GFR (Cockcroft-Gault) 10.1 BUN/Creatinine Ratio 7 (6-20) Glucose Level 75 mg/dL (70-99) Calcium Level 7.2 mg/dL (8.5-10.1) Phosphorus Level 5.5 mg/dL (2.6-4.7) Magnesium Level 2.6 mg/dL (1.8-2.4) Total Bilirubin 1.0 mg/dL (0.2-1.0) Aspartate Amino Transf (AST/SGOT) 158 U/L (15-37) Alanine Aminotransferase (ALT/SGPT) 91 U/L (16-63) Alkaline Phosphatase 106 U/L (46-116) Total Protein 7.2 g/dL (6.4-8.2) Albumin 2.7 g/dL (3.4-5.0) Albumin/Globulin Ratio 0.6 (1.0-1.7) Test 08/06/21 08:50 O2 Saturation 98 % (92-99) Arterial Blood pH 7.41 (7.35-7.45) Arterial Blood pCO2 at Patient Temp 39 mmHg (35-46) Arterial Blood pO2 at Patient Temp 134 mmHg (75-108) Arterial Blood HCO3 25 mmol/L (21-28) Arterial Blood Base Excess 0 mmol/L (-3-3) FiO2 35 Microbiology Micro Microbiology 08/03/21 Blood Culture - Final, Complete 08/03/21 Urine Culture - Final, Complete Review of Systems Constitutional: yes: unresponsive Physical Exam HEENT: Neck Supple W Full Motion Chest: Symmetric LUNGS: Other (diminished, intubated with MV) Heart: RRR (ST with first degree AV block) Abdomen: Other (soft) Extremities: No Edema Neurology: other (SEDATED) Assessment Assessment 1. Encephalopathy, possible stroke with left-sided weakness 2. Acute respiratory failure; multifactorial 3. Leukocytosis, Sepsis; BC + GPC 4. Septic shock; requiring pressor support 5. UTI with suprapubic cath 6. ESRD on HD, hyperkalemia 7. Arrhythmia; brief burst of NSVT on tele while on HD. none significant overnight 8. Acute on chronic diastolic CHF; Echo 04/13 with preserved LV systolic function. LHC 04/13 with normal coronaries 9. Valvular disease: mod to severe 10. SSS s/p leadless PPM 11. Moderate secondary pulmonary HTN 12. Hypothyroidism 13. Mild Elevated LFTs Recommendations Pressor support with levophed and vasopressin Ongoing antibiotic therapy, treatment of sepsis Fluid offloading via HD Head CT today Will add ASA pending CT, Add statin Supportive care from a CV standpoint Future consideration for TAVR Justicifation of Admission Dx: Justifications for Admission: Justification of Admission Dx: N/A MARIANN TIRADO MD 08/06/21 2230: CARDIO Progress Notes Plan Plan The patient was seen and interviewed as well as examined at the bedside. The chart was reviewed. The case was discussed. Agree with the plan of care. Patient has known prior tachybrady, s/p leadless pacemaker at [facility]. Needs TAVR and probable mitral valve intervention. Awaiting treatment at . Supportive care. Intermittent afib with above issues. Conservative mgmt for now. Will follow along. SANJEEV PASTOR APRN Aug 06, 2021 09:46 MARIANN TIRADO MD Aug 06, 2021 22:30
--- NOTE | 2021-08-06 10:32 | RAD ---
EXAM: Chest, abdomen and pelvis CT with intravenous contrast. HISTORY: Sepsis. TECHNIQUE: Computed tomographic images of the chest, abdomen and pelvis were obtained following the a dministration of intravenous contrast. Multiplanar reformatting was performed. *One or more of the following individualized dose reduction techniques were utilized for this examina tion: 1. Automated exposure control. 2. Adjustment of the mA and/or kV according to patient size. 3. Use of iterative reconstruction technique. COMPARISON: 01/18/2021. FINDINGS: Chest: There is cardiomegaly. There is calcified atherosclerotic plaque involving the coron zoraida arteries. There is calcification of the aortic valve and mitral valve annulus. There are is an en dotracheal tube within the distal trachea. There is a nasogastric tube within the stomach. There are multiple prominent collateral vessels along the anterior and posterior chest wall. There is no pathol ogically enlarged lymph node. There are small left and trace right pleural effusions. There is no pne umothorax. There is bilateral lower lobe interstitial infiltrate superimposed on compressive atelecta sis. There are a few pleural-based and peripheral groundglass opacities within the bilateral upper lo bes, also likely due to interstitial infiltrate. There is gynecomastia. There are degenerative change s involving the spine. Abdomen and pelvis: No hepatic lesion is seen. There is vicarious excretion of contrast from the gall bladder. There are embolization coils within the austin hepatis. No pancreatic lesion is seen. There i s a splenule adjacent to an upper normal sized spleen. There is a 2.4 cm hypodense lesion within the posterior spleen, without a correlate on the prior study. The stomach is distended despite nasogastric tube placement. The adrenal glands are unremarkable. The re is renal atrophy. There are distended fluid-filled distal small bowel within the right midabdomen and bilateral lower abdomen. There is also a distended stool and fluid-filled proximal colon. There i s circumferential wall thickening involving the colon. There is distal colonic diverticulosis. There is a Holloway catheter within a decompressed urinary bladder. There are suspected bladder wall calcifica tions. There is a small amount of abdominal ascites. There is diffuse mesenteric stranding. There are enlarged lymph nodes throughout the root of the mesentery and retroperitoneum. These may be reactive in etiology. There are degenerative changes involving the spine. IMPRESSION: 1. Mildly distended loops of small bowel within the right mid and bilateral lower abdomen. No convinc ing transition point is seen to suggest obstruction. This may be due to ileus. Correlate with symptom atology. 2. Circumferential wall thickening involving the colon. This likely due to the presence of ascites. T his is not clearly within limits to suggest colitis. 3. Small ascites and diffuse mesenteric stranding, decreased compared to the prior exam. 4. Stable mildly enlarged mesenteric and retroperitoneal lymph nodes. These are nonspecific and may b e reactive in etiology. 5. Bilateral lower lobe interstitial infiltrate superimposed on compressive atelectasis and trace to small pleural effusions. There is also patchy interstitial infiltrate within the peripheral upper lob es and right middle lobe. 6. Distended stomach. There is a nasogastric tube in expected position. 7. Colonic diverticulosis. 8. Cardiomegaly and multiple prominent collateral vessels throughout the chest wall. 9. 2.4 cm hypodense lesion within the spleen. There is no correlate for this finding on prior studies . This is greater than expected for heterogeneous physiologic enhancement. In the absence of recent t rauma or known primary malignancy, this may be a hemangioma. This may be visible with sonographic fol low-up. Electronically signed by: Portia Hitchcock MD (08/06/2021 10:30 AM) [id number]
--- NOTE | 2021-08-06 10:42 | RAD ---
Exam Date: 08/06/2021 9:[address] HEAD/BRAIN WO Indication: Reason: Follow-up stroke, left hemiparesis, too unstable for MRI, KAITLYN TO CALL / Spl. I nstructions: / History: . TECHNIQUE: Head CT was performed without intravenous contrast. One or more of the following dose re duction techniques were utilized: *Automated exposure control (AEC) *Adjustment of mA and/or kV according to patient size *Use of iterative reconstruction technique *CT scan done according to ALARA, or ALARA/IMAGE GENTLY COMPARISON: August 03, 2021 FINDINGS: There is an area of hypodensity in the right frontoparietal lobe with loss of montero-white differentiat ion consistent with acute to subacute infarct. The ventricles and sulci are normal for the patient's stated age. There is no evidence of acute int racranial hemorrhage, extra-axial collection, mass effect, or midline shift. No lesion of the skull b ase or the calvarium is seen. The visualized paranasal sinuses, mastoid air cells and orbits are norm al in appearance. IMPRESSION: Right frontoparietal acute to subacute infarct. No acute intracranial hemorrhage seen. Electronically signed by: Mitchell Miranda MD (08/06/2021 10:39 AM) [facility]
--- NOTE | 2021-08-06 10:45 | PDOC ---
Renal-Progress Notes Subjective Notes Notes ON THE VENT History of Present Illness Hx of present illness NO ACUTE CHANGES Vitals Vitals Vital Signs Date Time Temp Pulse Resp B/P (MAP) Pulse Ox O2 Delivery O2 Flow Rate FiO2 08/06/21 08:41 100 Ventilator 08/06/21 06:00 101 20 135/50 08/06/21 05:29 15.0 08/06/21 04:00 99.9 99.9 Weight Weight [ ] I.O. Intake and Output Intake and Output 08/06/21 07:00 Intake Total 3729.35 ml Output Total 100 ml Balance 3629.35 ml Intake IV Total 1421.35 ml Tube Feeding 1508 ml Other 800 ml Output Urine Total 0 ml Gastric Drainage Total 100 ml Labs Labs Laboratory Tests Test 08/05/21 12:00 08/05/21 12:44 08/05/21 12:56 08/05/21 16:26 O2 Saturation 98 % (92-99) Arterial Blood pH 7.45 (7.35-7.45) Arterial Blood pCO2 at Patient Temp 36 mmHg (35-46) Arterial Blood pO2 at Patient Temp 126 mmHg (75-108) Arterial Blood HCO3 24 mmol/L (21-28) Arterial Blood Base Excess 1 mmol/L (-3-3) FiO2 35/vent Glucose (Fingerstick) 58 mg/dL (70-99) 117 mg/dL (70-99) 78 mg/dL (70-99) Test 08/05/21 18:23 08/05/21 18:45 08/06/21 06:00 08/06/21 06:04 Glucose (Fingerstick) 65 mg/dL (70-99) 109 mg/dL (70-99) 78 mg/dL (70-99) White Blood Count 15.2 x10^3/uL (4.0-11.0) Red Blood Count 3.40 x10^6/uL (4.30-5.70) Hemoglobin 10.8 g/dL (13.0-17.5) Hematocrit 33.1 % (39.0-53.0) Mean Corpuscular Volume 97 fL (79-100) Mean Corpuscular Hemoglobin 32 pg (25-35) Mean Corpuscular Hemoglobin Concent 33 g/dL (31-37) Red Cell Distribution Width 17.3 % (11.5-14.5) Platelet Count 107 x10^3/uL (140-400) Sodium Level 132 mmol/L (136-145) Potassium Level 4.5 mmol/L (3.5-5.1) Chloride Level 97 mmol/L (98-107) Carbon Dioxide Level 23 mmol/L (21-32) Anion Gap 12 (6-14) Blood Urea Nitrogen 43 mg/dL (8-26) Creatinine 5.8 mg/dL (0.7-1.3) Estimated GFR (Cockcroft-Gault) 10.1 BUN/Creatinine Ratio 7 (6-20) Glucose Level 75 mg/dL (70-99) Calcium Level 7.2 mg/dL (8.5-10.1) Phosphorus Level 5.5 mg/dL (2.6-4.7) Magnesium Level 2.6 mg/dL (1.8-2.4) Total Bilirubin 1.0 mg/dL (0.2-1.0) Aspartate Amino Transf (AST/SGOT) 158 U/L (15-37) Alanine Aminotransferase (ALT/SGPT) 91 U/L (16-63) Alkaline Phosphatase 106 U/L (46-116) Total Protein 7.2 g/dL (6.4-8.2) Albumin 2.7 g/dL (3.4-5.0) Albumin/Globulin Ratio 0.6 (1.0-1.7) Test 08/06/21 08:50 O2 Saturation 98 % (92-99) Arterial Blood pH 7.41 (7.35-7.45) Arterial Blood pCO2 at Patient Temp 39 mmHg (35-46) Arterial Blood pO2 at Patient Temp 134 mmHg (75-108) Arterial Blood HCO3 25 mmol/L (21-28) Arterial Blood Base Excess 0 mmol/L (-3-3) FiO2 35 Micro Micro Microbiology 08/03/21 Blood Culture - Final, Complete 08/03/21 Urine Culture - Final, Complete Review of Systems Constitutional: yes: unresponsive Physical Exam General Appearance: other (ON THE VENT) Skin: warm Respiratory: decreased breath sounds Heart: S1S2, RRR Abdomen: soft, bowel sounds present Genitourinary: bladder flat, no mass Extremities: pulses present, atrophy Neurology: other (SEDATED) Assessment Assessment IMP HYPERKALEMIA ESRD-TTS ANEMIA DM II HTN UTI SEPSIS LEUCOCYTOSIS ENCEPHALOPATHY POSSIBLE CVA ACUTE RESP FAILURE MET AND RESP ACIDOSIS PLAN ANTIBIOTICS VENT SUPPORT PRESSORS NEEDED NEPRO TF AND WATER FLUSHES ID EVAL PULM EVAL HD TODAY UF TOLERATED CT ABD/PELVIS TODAY WILL FOLLOW PT IS CRITICALLY ILL MARIIA VIDAL MD Aug 06, 2021 10:45
--- NOTE | 2021-08-06 10:53 | NUR ---
SS following up with discharge planning. SS reviewed pt chart and discussed with pt RN. Pt is currently on the vent at 35%. COVID19 negative. Pt on Vancomycin and IV Zosyn. Pt on Fentanyl, Versed, Levophed, and Vasopressin. Hemodialysis. Pt getting CT of abdomen and pelvis today. Not ready. SS will continue to follow for discharge planning.
[2021-08-06] MEDS: VANCOMYCIN PER PHARMACY MC PRN (11:08)
[2021-08-06] MEDS: ASPIRIN CHEWABLE 81 MG TABLET. PO SCH (11:45)
[2021-08-06] MEDS ORDERED: IV NORMAL SALINE 1000ML BAG 1,000 ML IV PRN ×2 (12:00)
[2021-08-06] MEDS ORDERED: DIALYSIS PATIENT. MC PRN (12:00)
--- NOTE | 2021-08-06 12:14 | PDOC ---
[employer] PROGRESS NOTE Date of Service DOS: DATE: 08/06/21 TIME: 12:13 Chief Complaint Chief Complaint Respiratory failure requiring mechanical ventilation Severe sepsis Possible stroke Suprapubic catheter; CHF; COPD; hypertension; pneumonia, End-stage renal disease, on dialysis; history of peritonitis dialysis as well left kidney stents; suprapubic catheter. History of Present Illness History of Present Illness 08/06/2021 Patient seen and examined in the ICU CT of the head showing a small stroke CT of the abdomen showing possible obstruction Discussed with RN Chart reviewed He is still intubated AC/26/500/1 100% with 10 of PEEP OG feeds are running but we are going to stop that and start some TPN if okay with nephrology Sedated with propofol Versed and fentanyl and paralyzed with vecuronium He remains extremely critically ill 08/05/2021 Patient seen and examined in the ICU He is currently on dialysis Discussed with RN He is still on the vent AC/24/500/30 5% with 5 of PEEP Has SCDs in place Holloway to bedside drainage Sedated with fentanyl and Versed Has IV Levophed hanging Also on IV neomycin Also on IV vasopressin Extremely critically ill 08/04/2021 Patient seen and examined in the ICU He is mechanically ventilated AC/16/500/40 5% with 5 of PEEP He is extremely hypotensive 63/40 currently despite having Levophed and vasopressin Discussed with RN were going to start Michael-Synephrine Tachycardic at 117 bpm Patient is extremely cool and clammy Had a fever to 103.5 last night currently at 102.9 He is extremely critically ill Vitals/I&O Vitals/I&O: Vital Signs Date Time Temp Pulse Resp B/P (MAP) Pulse Ox O2 Delivery O2 Flow Rate FiO2 08/06/21 11:33 100 Ventilator 08/06/21 10:00 98 20 134/54 08/06/21 08:00 99.3 99.3 08/06/21 05:29 15.0 I & O 08/05/21 08/05/21 08/06/21 15:00 23:00 07:00 Intake Total 1033.9 ml 1199.05 ml 1496.4 ml Output Total 100 ml 0 ml 0 ml Balance 933.9 ml 1199.05 ml 1496.4 ml Physical Exam Physical Exam: GENERAL: Sedated, orally intubated gentleman, not in distress. VITAL SIGNS: Stable though on vasopressor support HEENT: Both pupils are round and reacting. No conjunctival lesion. NECK: Supple. No JVP. Mouth cannot be visualized. Orally intubated. LUNGS: Decreased breath sounds bilaterally. HEART: S1, S2 regular. No gallop or murmur. ABDOMEN: Soft, nontender. No organomegaly. Suprapubic catheter is now looking good with normal looking urine. EXTREMITIES: No edema, cyanosis. SKIN: Unremarkable. AV shunt in the right upper extremity is unremarkable. NEUROLOGIC: The patient cannot be judged as sedated and intubated. General: Other (sedated) Heart: Other (ST) Lungs: Crackles Abdomen: Soft Extremities: No edema Skin: No significant lesion Labs Labs: Laboratory Tests Test 08/05/21 12:44 08/05/21 12:56 08/05/21 16:26 08/05/21 18:23 Glucose (Fingerstick) 58 mg/dL (70-99) 117 mg/dL (70-99) 78 mg/dL (70-99) 65 mg/dL (70-99) Test 08/05/21 18:45 08/06/21 06:00 08/06/21 06:04 08/06/21 08:50 Glucose (Fingerstick) 109 mg/dL (70-99) 78 mg/dL (70-99) White Blood Count 15.2 x10^3/uL (4.0-11.0) Red Blood Count 3.40 x10^6/uL (4.30-5.70) Hemoglobin 10.8 g/dL (13.0-17.5) Hematocrit 33.1 % (39.0-53.0) Mean Corpuscular Volume 97 fL (79-100) Mean Corpuscular Hemoglobin 32 pg (25-35) Mean Corpuscular Hemoglobin Concent 33 g/dL (31-37) Red Cell Distribution Width 17.3 % (11.5-14.5) Platelet Count 107 x10^3/uL (140-400) Sodium Level 132 mmol/L (136-145) Potassium Level 4.5 mmol/L (3.5-5.1) Chloride Level 97 mmol/L (98-107) Carbon Dioxide Level 23 mmol/L (21-32) Anion Gap 12 (6-14) Blood Urea Nitrogen 43 mg/dL (8-26) Creatinine 5.8 mg/dL (0.7-1.3) Estimated GFR (Cockcroft-Gault) 10.1 BUN/Creatinine Ratio 7 (6-20) Glucose Level 75 mg/dL (70-99) Calcium Level 7.2 mg/dL (8.5-10.1) Phosphorus Level 5.5 mg/dL (2.6-4.7) Magnesium Level 2.6 mg/dL (1.8-2.4) Total Bilirubin 1.0 mg/dL (0.2-1.0) Aspartate Amino Transf (AST/SGOT) 158 U/L (15-37) Alanine Aminotransferase (ALT/SGPT) 91 U/L (16-63) Alkaline Phosphatase 106 U/L (46-116) Total Protein 7.2 g/dL (6.4-8.2) Albumin 2.7 g/dL (3.4-5.0) Albumin/Globulin Ratio 0.6 (1.0-1.7) O2 Saturation 98 % (92-99) Arterial Blood pH 7.41 (7.35-7.45) Arterial Blood pCO2 at Patient Temp 39 mmHg (35-46) Arterial Blood pO2 at Patient Temp 134 mmHg (75-108) Arterial Blood HCO3 25 mmol/L (21-28) Arterial Blood Base Excess 0 mmol/L (-3-3) FiO2 35 Test 08/06/21 11:41 Glucose (Fingerstick) 71 mg/dL (70-99) Assessment and Plan Assessmemt and Plan Problems Medical Problems: (1) Hypoxia Status: Acute (2) Respiratory failure Status: Acute (3) Sepsis Status: Acute (4) Stroke Status: Acute (5) UTI (urinary tract infection) Status: Acute Respiratory failure requiring mechanical ventilation Severe sepsis Possible stroke Suprapubic catheter; CHF; COPD; hypertension; pneumonia, End-stage renal disease, on dialysis; history of peritonitis dialysis as well left kidney stents; suprapubic catheter. Plan ICU monitoring Continue mechanical ventilation Vent weaning Neurology has ordered a repeat CT of the head agree IV antibiotics per infectious disease Continue our IV pressor support with Levophed vasopressin and were adding an Michael-Synephrine Trend labs Home meds when possible Lovenox 40 mg a day for DVT prophylaxis we will continue SCDs as well Dialysis per nephrology Nutritional support He remains very critically ill Appreciate subspecialist input Prognosis extremely guarded probably terminal CC time 33 minutes Comment Review of Relevant I have reviewed the following items allyson (where applicable) has been applied. Medications: Current Medications Medications (Trade) Dose Ordered Sig/Kevin Route PRN Reason Start Time Stop Time Status Last Admin Dose Admin Vancomycin HCl 500 mg/Sodium Chloride 100 ml @ 100 mls/hr QTUTHSA IV 08/05/21 16:00 08/05/21 15:59 Dextrose (Dextrose 50%-Water Syringe) 12.5 gm PRN Q15MIN PRN IV SEE COMMENTS 08/05/21 13:00 08/05/21 18:30 Magnesium Sulfate 50 ml @ 25 mls/hr 1X ONCE IV 08/05/21 16:30 08/05/21 18:29 DC 08/05/21 16:59 Iohexol (Omnipaque 300 Mg/ml) 60 ml 1X ONCE IV 08/06/21 09:30 08/06/21 09:31 DC 08/06/21 09:30 Aspirin (Aspirin Chewable) 81 mg [id number] PO 08/06/21 11:45 08/06/21 11:45 Justifications for Admission Other Justification KASSIEO DEVAN NICHOLE III DO Aug 06, 2021 12:14
[2021-08-06] MEDS: TPN PER PHARMACY MC PRN (12:30)
--- NOTE | 2021-08-06 13:11 | PDOC ---
PULMONARY PROGRESS NOTES DATE: 08/06/21 TIME: 13:08 Subjective Patient sedated, currently requiring vasopressin and norepinephrine, 35% FiO2 5 of PEEP Vitals Vital Signs Date Time Temp Pulse Resp B/P (MAP) Pulse Ox O2 Delivery O2 Flow Rate FiO2 08/06/21 12:15 102 108/50 08/06/21 12:00 100.0 20 100 Ventilator 100.0 08/06/21 05:29 15.0 Lungs: Crackles Cardiovascular: S1, S2 Abdomen: Soft, Non-tender Extremities: No Edema Labs Laboratory Tests Test 08/05/21 06:10 08/05/21 12:00 08/05/21 12:44 08/05/21 12:56 White Blood Count 29.0 x10^3/uL (4.0-11.0) Red Blood Count 3.80 x10^6/uL (4.30-5.70) Hemoglobin 12.2 g/dL (13.0-17.5) Hematocrit 37.6 % (39.0-53.0) Mean Corpuscular Volume 99 fL (79-100) Mean Corpuscular Hemoglobin 32 pg (25-35) Mean Corpuscular Hemoglobin Concent 32 g/dL (31-37) Red Cell Distribution Width 17.4 % (11.5-14.5) Platelet Count 136 x10^3/uL (140-400) Sodium Level 131 mmol/L (136-145) Potassium Level 6.9 mmol/L (3.5-5.1) Chloride Level 96 mmol/L (98-107) Carbon Dioxide Level 17 mmol/L (21-32) Anion Gap 18 (6-14) Blood Urea Nitrogen 68 mg/dL (8-26) Creatinine 8.9 mg/dL (0.7-1.3) Estimated GFR (Cockcroft-Gault) 6.2 Glucose Level 52 mg/dL (70-99) Calcium Level 6.6 mg/dL (8.5-10.1) Magnesium Level 1.9 mg/dL (1.8-2.4) Random Vancomycin Level 17.3 mcg/mL Hepatitis B Surface Antibody Nonreactive O2 Saturation 98 % (92-99) Arterial Blood pH 7.45 (7.35-7.45) Arterial Blood pCO2 at Patient Temp 36 mmHg (35-46) Arterial Blood pO2 at Patient Temp 126 mmHg (75-108) Arterial Blood HCO3 24 mmol/L (21-28) Arterial Blood Base Excess 1 mmol/L (-3-3) FiO2 35/vent Glucose (Fingerstick) 58 mg/dL (70-99) 117 mg/dL (70-99) Test 08/05/21 16:26 08/05/21 18:23 08/05/21 18:45 08/06/21 06:00 Glucose (Fingerstick) 78 mg/dL (70-99) 65 mg/dL (70-99) 109 mg/dL (70-99) White Blood Count 15.2 x10^3/uL (4.0-11.0) Red Blood Count 3.40 x10^6/uL (4.30-5.70) Hemoglobin 10.8 g/dL (13.0-17.5) Hematocrit 33.1 % (39.0-53.0) Mean Corpuscular Volume 97 fL (79-100) Mean Corpuscular Hemoglobin 32 pg (25-35) Mean Corpuscular Hemoglobin Concent 33 g/dL (31-37) Red Cell Distribution Width 17.3 % (11.5-14.5) Platelet Count 107 x10^3/uL (140-400) Sodium Level 132 mmol/L (136-145) Potassium Level 4.5 mmol/L (3.5-5.1) Chloride Level 97 mmol/L (98-107) Carbon Dioxide Level 23 mmol/L (21-32) Anion Gap 12 (6-14) Blood Urea Nitrogen 43 mg/dL (8-26) Creatinine 5.8 mg/dL (0.7-1.3) Estimated GFR (Cockcroft-Gault) 10.1 BUN/Creatinine Ratio 7 (6-20) Glucose Level 75 mg/dL (70-99) Calcium Level 7.2 mg/dL (8.5-10.1) Phosphorus Level 5.5 mg/dL (2.6-4.7) Magnesium Level 2.6 mg/dL (1.8-2.4) Total Bilirubin 1.0 mg/dL (0.2-1.0) Aspartate Amino Transf (AST/SGOT) 158 U/L (15-37) Alanine Aminotransferase (ALT/SGPT) 91 U/L (16-63) Alkaline Phosphatase 106 U/L (46-116) Total Protein 7.2 g/dL (6.4-8.2) Albumin 2.7 g/dL (3.4-5.0) Albumin/Globulin Ratio 0.6 (1.0-1.7) Test 08/06/21 06:04 08/06/21 08:50 08/06/21 11:41 Glucose (Fingerstick) 78 mg/dL (70-99) 71 mg/dL (70-99) O2 Saturation 98 % (92-99) Arterial Blood pH 7.41 (7.35-7.45) Arterial Blood pCO2 at Patient Temp 39 mmHg (35-46) Arterial Blood pO2 at Patient Temp 134 mmHg (75-108) Arterial Blood HCO3 25 mmol/L (21-28) Arterial Blood Base Excess 0 mmol/L (-3-3) FiO2 35 Laboratory Tests Test 08/05/21 16:26 08/05/21 18:23 08/05/21 18:45 08/06/21 06:00 Glucose (Fingerstick) 78 mg/dL (70-99) 65 mg/dL (70-99) 109 mg/dL (70-99) White Blood Count 15.2 x10^3/uL (4.0-11.0) Red Blood Count 3.40 x10^6/uL (4.30-5.70) Hemoglobin 10.8 g/dL (13.0-17.5) Hematocrit 33.1 % (39.0-53.0) Mean Corpuscular Volume 97 fL (79-100) Mean Corpuscular Hemoglobin 32 pg (25-35) Mean Corpuscular Hemoglobin Concent 33 g/dL (31-37) Red Cell Distribution Width 17.3 % (11.5-14.5) Platelet Count 107 x10^3/uL (140-400) Sodium Level 132 mmol/L (136-145) Potassium Level 4.5 mmol/L (3.5-5.1) Chloride Level 97 mmol/L (98-107) Carbon Dioxide Level 23 mmol/L (21-32) Anion Gap 12 (6-14) Blood Urea Nitrogen 43 mg/dL (8-26) Creatinine 5.8 mg/dL (0.7-1.3) Estimated GFR (Cockcroft-Gault) 10.1 BUN/Creatinine Ratio 7 (6-20) Glucose Level 75 mg/dL (70-99) Calcium Level 7.2 mg/dL (8.5-10.1) Phosphorus Level 5.5 mg/dL (2.6-4.7) Magnesium Level 2.6 mg/dL (1.8-2.4) Total Bilirubin 1.0 mg/dL (0.2-1.0) Aspartate Amino Transf (AST/SGOT) 158 U/L (15-37) Alanine Aminotransferase (ALT/SGPT) 91 U/L (16-63) Alkaline Phosphatase 106 U/L (46-116) Total Protein 7.2 g/dL (6.4-8.2) Albumin 2.7 g/dL (3.4-5.0) Albumin/Globulin Ratio 0.6 (1.0-1.7) Test 08/06/21 06:04 08/06/21 08:50 08/06/21 11:41 Glucose (Fingerstick) 78 mg/dL (70-99) 71 mg/dL (70-99) O2 Saturation 98 % (92-99) Arterial Blood pH 7.41 (7.35-7.45) Arterial Blood pCO2 at Patient Temp 39 mmHg (35-46) Arterial Blood pO2 at Patient Temp 134 mmHg (75-108) Arterial Blood HCO3 25 mmol/L (21-28) Arterial Blood Base Excess 0 mmol/L (-3-3) FiO2 35 Medications Active Scripts Medications Dose Route/Sig Max Daily Dose Days Date Category Tums (Calcium Carbonate) 200 Mg Tab.chew 400 Mg PO HS 04/19/21 Reported Sensipar (Cinacalcet Hcl) 60 Mg Tablet 1 Tab PO DAILY 30 04/19/21 Reported Ferric Citrate 210 Mg Tablet 2 Tab PO TID 30 04/19/21 Reported Lasix (Furosemide) 40 Mg Tablet 40 Mg PO BID 04/19/21 Reported Renagel (Sevelamer Hcl) 800 Mg Tablet 2 Tab PO TIDWMEALS 01/18/21 Reported Kapspargo Sprinkle (Metoprolol Succinate) 50 Mg Cap.spr.24 50 Mg PO DAILY 01/18/[address] chest reviewed dated 08/06/2021. Small basal pleural effusion with associated atelectasis. No definite consolidation seen Impression . IMPRESSION: 1. Acute hypoxemic respiratory failure, multifactorial. 2. Septic shock./Urosepsis 3. Fever related to above. 4. SARS-CoV-2 testing negative. 5. End-stage renal disease, on hemodialysis. 6. Possible stroke. 7. Other comorbidities including end-stage renal disease, hypertension, chronic obstructive pulmonary disease, gastroesophageal reflux, ischemic cardiomyopathy. Plan . Updated 08/06 Continue present assist-control mode. continue present vasopressor support. complicated urinary tract infection with septic shock. Follow ID recommendations Hemodialysis per nephrology Continue pressors for map above 60 Follow blood cultures DVT GI prophylaxis CT chest reviewed. No focal consolidation. Small basal effusion with associated atelectasis. CCT 30 minutes Updated 08/05 PLAN: 1. Continue current support with mechanical ventilation. 2. Adjust minute ventilation to normalize pH. 3. Hemodialysis per Nephrology. 4. Empiric antibiotics. 5. Follow blood cultures. 6. Nutritional support. 7. Replace magnesium. I do appreciate the privilege in sharing in the patient's care. Critical care time of 55 minutes, reviewing the current documentation, examining the patient, reviewing the imaging studies, labs, formulating the impression and plan. RUDI DAVALOS MD Aug 06, 2021 13:11
--- NOTE | 2021-08-06 13:39 | NUR ---
Pharmacy TPN Dosing Note S: FELICE GROVE is a 56 year old M Currently receiving Central Continuous TPN started 08/06/21 B:Pertinent PMH: High residuals w/tube feeding Height: 5 feet, 5 inches Weight: 77.0 kg Current diet: NPO LABS: Sodium: 132 Potassium: 4.5 Chloride: 97 Calcium: 7.2 Corrected Calcium: 8.24 Magnesium: 2.6 CO2: 23 SCr: 5.8 Glucose: 71-109 Albumin: 2.7 AST: 158 ALT: 91 TPN FORMULA: TPN TYPE: Central Continuous AMINO ACIDS: 60 gm DEXTROSE: 195 gm LIPIDS: 20 gm SODIUM CHLORIDE: 90 mEq POTASSIUM CHLORIDE: 20 mEq CALCIUM: 10 mEq MULTIPLE VITAMIN: 10 ml TRACE ELEMENTS: 1 ml(s) TPN PLAN: Initiate house formula without magnesium and phosphate. Potassium reduced to 20mEq Total volume 1200mL. R: Begin TPN Will monitor electrolytes, glucose, and tolerance to TPN. Rena [place] [employer], 08/06/21 [id number]
--- NOTE | 2021-08-06 13:45 | PDOC2 ---
GI CONSULT Date of Service: DATE: 08/06/21 TIME: 13:09 Reason For Consult: SBO HPI: HPI: 56 y/o male found unresponsive in car, admitted on 08/03/21 w/ possible stroke, UTI, and staph bacteremia. D/w nurse - high residuals on tube feeds, CT w/ mildly distended SB loops in right mid/bilateral lower abdomen and distended stomach - possible ileus. We are asked to see for this. EGD and colonoscopy by Dr. Shiakh in 07/2018 for GI bleeding and anemia showed normal esophagus, normal stomach (biopsies w/ superficial chronic gastritis, negative for H. 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 For recurrent/ongoing bleeding, eventually underwent IR embolization of GDA. Mixed STAN/ACD then w/ low-normal B12. Suspected false positive Hep Bs Ag in the past (w/ negative core total Ab). No GB or pancreas history. H/o SBO/ileus in 01/2021 - no obstruction on SBS then. On ASA and IV H2 kevin. No stools charted. PMH: PMH: CHF, pericardial effusion, CAD, ESRD on HD, UTI SPC, nephrostomy tubes, ureteral stent, thoracentesis, paracentesis, subxiphoid pericardial window, PD cath placement/removal, RIH repair w/ mesh, pacemaker, cardiac cath FH: Family History: CAD Social History: Smoke: Quit ALCOHOL: other (some in the past) Drugs: None ROS: unable to obtain Vitals: Vitals: Vital Signs Date Time Temp Pulse Resp B/P (MAP) Pulse Ox O2 Delivery O2 Flow Rate FiO2 08/06/21 12:15 102 108/50 08/06/21 12:00 100.0 20 100 Ventilator 100.0 08/06/21 05:29 15.0 Labs: Labs: Laboratory Tests Test 08/05/21 16:26 08/05/21 18:23 08/05/21 18:45 08/06/21 06:00 Glucose (Fingerstick) 78 mg/dL (70-99) 65 mg/dL (70-99) 109 mg/dL (70-99) White Blood Count 15.2 x10^3/uL (4.0-11.0) Red Blood Count 3.40 x10^6/uL (4.30-5.70) Hemoglobin 10.8 g/dL (13.0-17.5) Hematocrit 33.1 % (39.0-53.0) Mean Corpuscular Volume 97 fL (79-100) Mean Corpuscular Hemoglobin 32 pg (25-35) Mean Corpuscular Hemoglobin Concent 33 g/dL (31-37) Red Cell Distribution Width 17.3 % (11.5-14.5) Platelet Count 107 x10^3/uL (140-400) Sodium Level 132 mmol/L (136-145) Potassium Level 4.5 mmol/L (3.5-5.1) Chloride Level 97 mmol/L (98-107) Carbon Dioxide Level 23 mmol/L (21-32) Anion Gap 12 (6-14) Blood Urea Nitrogen 43 mg/dL (8-26) Creatinine 5.8 mg/dL (0.7-1.3) Estimated GFR (Cockcroft-Gault) 10.1 BUN/Creatinine Ratio 7 (6-20) Glucose Level 75 mg/dL (70-99) Calcium Level 7.2 mg/dL (8.5-10.1) Phosphorus Level 5.5 mg/dL (2.6-4.7) Magnesium Level 2.6 mg/dL (1.8-2.4) Total Bilirubin 1.0 mg/dL (0.2-1.0) Aspartate Amino Transf (AST/SGOT) 158 U/L (15-37) Alanine Aminotransferase (ALT/SGPT) 91 U/L (16-63) Alkaline Phosphatase 106 U/L (46-116) Total Protein 7.2 g/dL (6.4-8.2) Albumin 2.7 g/dL (3.4-5.0) Albumin/Globulin Ratio 0.6 (1.0-1.7) Test 08/06/21 06:04 08/06/21 08:50 08/06/21 11:41 Glucose (Fingerstick) 78 mg/dL (70-99) 71 mg/dL (70-99) O2 Saturation 98 % (92-99) Arterial Blood pH 7.41 (7.35-7.45) Arterial Blood pCO2 at Patient Temp 39 mmHg (35-46) Arterial Blood pO2 at Patient Temp 134 mmHg (75-108) Arterial Blood HCO3 25 mmol/L (21-28) Arterial Blood Base Excess 0 mmol/L (-3-3) FiO2 35 BLOOD CULTURE LC Final Final GRAM POSITIVE COCCI FINAL ID= [[email or web address]] URINE CULTURE Final Final Three or more organisms isolated. Results consistent with colonization or contamination during the collection process. Allergies: Coded Allergies: No Known Drug Allergies (Unverified , 02/17/21) Medications: Current Medications Medications (Trade) Dose Ordered Sig/Kevin Route PRN Reason Start Time Stop Time Status Last Admin Dose Admin Vancomycin HCl 500 mg/Sodium Chloride 100 ml @ 100 mls/hr QTUTHSA IV 08/05/21 16:00 08/05/21 15:59 Magnesium Sulfate 50 ml @ 25 mls/hr 1X ONCE IV 08/05/21 16:30 08/05/21 18:29 DC 08/05/21 16:59 Iohexol (Omnipaque 300 Mg/ml) 60 ml 1X ONCE IV 08/06/21 09:30 08/06/21 09:31 DC 08/06/21 09:30 Aspirin (Aspirin Chewable) 81 mg [id number] PO 08/06/21 11:45 08/06/21 11:45 Imaging: Imaging: CT A/P 08/06 FINDINGS: Chest: There is cardiomegaly. There is calcified atherosclerotic plaque involving the coronary arteries. There is calcification of the aortic valve and mitral valve annulus. There are is an endotracheal tube within the distal trachea. There is a nasogastric tube within the stomach. There are multiple prominent collateral vessels along the anterior and posterior chest wall. There is no pathologically enlarged lymph node. There are small left and trace right pleural effusions. There is no pneumothorax. There is bilateral lower lobe interstitial infiltrate superimposed on compressive atelectasis. There are a few pleural-based and peripheral groundglass opacities within the bilateral upper lobes, also likely due to interstitial infiltrate. There is gynecomastia. There are degenerative changes involving the spine. Abdomen and pelvis: No hepatic lesion is seen. There is vicarious excretion of contrast from the gallbladder. There are embolization coils within the [place] hepatis. No pancreatic lesion is seen. There is a splenule adjacent to an upper normal sized spleen. There is a 2.4 cm hypodense lesion within the posterior spleen, without a correlate on the prior study. The stomach is distended despite nasogastric tube placement. The adrenal glands are unremarkable. There is renal atrophy. There are distended fluid-filled distal small bowel within the right midabdomen and bilateral lower abdomen. There is also a distended stool and fluid-filled proximal colon. There is circum ferential wall thickening involving the colon. There is distal colonic diverticulosis. There is a Holloway catheter within a decompressed urinary bladder. There are suspected bladder wall calcifications. There is a small amount of abdominal ascites. There is diffuse mesenteric stranding. There are enlarged lymph nodes throughout the root of the mesentery and retroperitoneum. These may be reactive in etiology. There are degenerative changes involving the spine. IMPRESSION: 1. Mildly distended loops of small bowel within the right mid and bilateral lower abdomen. No convincing transition point is seen to suggest obstruction. This may be due to ileus. Correlate with symptomatology. 2. Circumferential wall thickening involving the colon. This likely due to the presence of ascites. This is not clearly within limits to suggest colitis. 3. Small ascites and diffuse mesenteric stranding, decreased compared to the prior exam. 4. Stable mildly enlarged mesenteric and retroperitoneal lymph nodes. These are nonspecific and may be reactive in etiology. 5. Bilateral lower lobe interstitial infiltrate superimposed on compressive atelectasis and trace to small pleural effusions. There is also patchy interstitial infiltrate within the peripheral upper lobes and right middle lobe. 6. Distended stomach. There is a nasogastric tube in expected position. 7. Colonic diverticulosis. 8. Cardiomegaly and multiple prominent collateral vessels throughout the chest wall. 9. 2.4 cm hypodense lesion within the spleen. There is no correlate for this finding on prior studies. This is greater than expected for heterogeneous physiologic enhancement. In the absence of recent trauma or known primary malignancy, this may be a hemangioma. This may be visible with sonographic follow-up. CXR 08/06 Impression: 1. Stable appearance of the chest compared to prior. CT head 08/06 IMPRESSION: Right frontoparietal acute to subacute infarct. No acute intracranial hemorrhage seen. Head/Neck CTA 08/03 IMPRESSION: 1. Moderate partially calcified atherosclerotic plaque involving the carotid bulbs and proximal internal carotid arteries, with less than 50 percent stenosis. There is also focal calcified plaque within the distal right vertebral artery at the level of C1 resulting in 50-69 percent stenosis. There is no additional significant stenosis or evidence of large vessel occlusion. 2. Bilateral cerebral white matter changes, likely due to chronic small vessel disease in a patient of this age. Note is made that MRI is more sensitive for acute infarction. 3. Degenerative change involving the cervical spine, resulting in stenosis at the aforementioned levels. 4. 7 mm groundglass nodular opacity within the left lung apex. Follow-up can be performed in 6-12 months. The superimposed on upper lobe predominant atelectasis and pleural parenchymal scarring. 5. Prominent the central lymph nodes, likely reactive in etiology. Head CT 08/03 IMPRESSION: 1. No acute intracranial finding. Note is made that MRI is more sensitive for acute infarction. 2. Bilateral cerebral white matter changes, likely due to chronic small vessel disease. PE: GEN: intubated HEENT: Atraumatic LUNGS: vent, clear HEART: RRR ABD: occasional groan/gurgle, soft, non-distended, OGT clamped EXTREMITY: No edema SKIN: No rashes, no jaundice NEURO/PSYCH: sedated A/P: A/P: Possible stroke, resp failure, sepsis/UTI/staph bacteremia, hypotension Chronic anemia, elevated LFTS (better) Abnormal CT w/ possible ileus H/o GI bleeding s/p GDA embolization, h/o DU CRC screen, h/o TVA w/ focal HGD - on colonoscopy in 01/2019 Diverticulosis, hemorrhoids H/o SBO/ileus H/o CHF, ESRD COVID negative -- Would hold tube feeds for now, consider suction and interval abdominal imaging. Looks like plans for TPN - agree. Continue IV acid-office administration. ERINN HOBSON Aug 06, 2021 13:45
[2021-08-06] MEDS: ALBUMIN HUMAN 25% 100 ML IV PRN (14:15)
[2021-08-06] MEDS: PANTOPRAZOLE IV PUSH 40 MG VIAL. IVP SCH (16:01)
[2021-08-06] MEDS: DEXTROSE 50% 25 GM / 50ML DISP.SYRIN. IV PRN (17:47)
--- NOTE | 2021-08-06 18:31 | NUR ---
Dr Ayers notified of patients irregular HR. No new orders, continue with plan of care.
[2021-08-06] MEDS: ATORVASTATIN CALCIUM 20 MG TABLET PO SCH (21:15)
[2021-08-06] MEDS ORDERED: AMINO ACID IV SCH (22:00)
[2021-08-06] MEDS ORDERED: DEXTROSE 70% IV SCH (22:00)
[2021-08-06] MEDS ORDERED: TOTAL PARENTERAL NUTRITION IV SCH (22:00)
[2021-08-06] MEDS ORDERED: [UNRECOGNIZED DRUG - OTHER] IV SCH (22:00)
[2021-08-07] VITALS (29 sets, daily range): BP systolic 96–149; BP diastolic 45–62
[2021-08-07] MEDS: MIDAZOLAM 100mg/100ml NS BAG 100 ML IV PRN (00:37)
[2021-08-07] MEDS: NOREPINEPHRINE VIAL 32 MG in IV D5W 250ML IV PRN (02:12)
[2021-08-07] MEDS ORDERED: DIALYSIS PATIENT. MC PRN ×2 (05:30)
[2021-08-07] MEDS ORDERED: 0.9 % SODIUM CHLORIDE 10 ML DISP.SYRIN. IV PRN ×2 (05:30)
[2021-08-07] MEDS ORDERED: ALBUMIN HUMAN 25% 200 ML IV PRN (05:30)
[2021-08-07] MEDS ORDERED: IV NORMAL SALINE 1000ML BAG 1,000 ML IV PRN ×2 (05:30)
[2021-08-07] MEDS: VASOPRESSIN - VASOSTRICT 20 UNIT in IV DEXTROSE 5% 100ML 100 ML IV PRN ×2 (06:21→16:50)
[2021-08-07 06:27] LABS: BASO % 0 % (0-3); EOS # 0.3 x10^3/uL (0.0-0.7); EOS % 4 % (0-3); HEMATOCRIT 30.4 % (39.0-53.0); HEMOGLOBIN 10.2 g/dL (13.0-17.5); LYMPH # 0.6 x10^3/uL (1.0-4.8); LYMPH % 7 % (24-48); MEAN CORPUSCULAR HEMOGLOBIN 32 pg (25-35); MEAN CORPUSCULAR HGB CONC 33 g/dL (31-37); MEAN CORPUSCULAR VOLUME 96 fL (79-100); MONO # 0.9 x10^3/uL (0.0-1.1); MONO % 11 % (0-9); NEUT # 6.9 x10^3/uL (1.8-7.7); NEUT % 78 % (31-73); PLATELET COUNT 80 x10^3/uL (140-400); RED BLOOD COUNT 3.18 x10^6/uL (4.30-5.70); RED CELL DISTRIBUTION WIDTH 16.8 % (11.5-14.5); WHITE BLOOD COUNT 8.9 x10^3/uL (4.0-11.0)
--- NOTE | 2021-08-07 06:37 | PDOC ---
PULMONARY PROGRESS NOTES DATE: 08/07/21 TIME: 06:36 Subjective on vent Patient sedated on versed fentanyl , currently requiring vasopressin and norepinephrine, 35% FiO2 5 of PEEP on HD Vitals Vital Signs Date Time Temp Pulse Resp B/P (MAP) Pulse Ox O2 Delivery O2 Flow Rate FiO2 08/07/21 05:00 100 Ventilator 08/07/21 04:00 100.2 92 20 149/48 100.2 08/07/21 02:46 15.0 Comments on vent sedated ros unable to obtain HEENT: Other (nc at perrl nose clear orally intubated neck no lad no thyromegaly) Lungs: Crackles Cardiovascular: S1, S2 Abdomen: Soft, Non-tender Extremities: No Edema Skin: No Rashes Labs Laboratory Tests Test 08/05/21 12:00 08/05/21 12:44 08/05/21 12:56 08/05/21 16:26 O2 Saturation 98 % (92-99) Arterial Blood pH 7.45 (7.35-7.45) Arterial Blood pCO2 at Patient Temp 36 mmHg (35-46) Arterial Blood pO2 at Patient Temp 126 mmHg (75-108) Arterial Blood HCO3 24 mmol/L (21-28) Arterial Blood Base Excess 1 mmol/L (-3-3) FiO2 35/vent Glucose (Fingerstick) 58 mg/dL (70-99) 117 mg/dL (70-99) 78 mg/dL (70-99) Test 08/05/21 18:23 08/05/21 18:45 08/06/21 06:00 08/06/21 06:04 Glucose (Fingerstick) 65 mg/dL (70-99) 109 mg/dL (70-99) 78 mg/dL (70-99) White Blood Count 15.2 x10^3/uL (4.0-11.0) Red Blood Count 3.40 x10^6/uL (4.30-5.70) Hemoglobin 10.8 g/dL (13.0-17.5) Hematocrit 33.1 % (39.0-53.0) Mean Corpuscular Volume 97 fL (79-100) Mean Corpuscular Hemoglobin 32 pg (25-35) Mean Corpuscular Hemoglobin Concent 33 g/dL (31-37) Red Cell Distribution Width 17.3 % (11.5-14.5) Platelet Count 107 x10^3/uL (140-400) Sodium Level 132 mmol/L (136-145) Potassium Level 4.5 mmol/L (3.5-5.1) Chloride Level 97 mmol/L (98-107) Carbon Dioxide Level 23 mmol/L (21-32) Anion Gap 12 (6-14) Blood Urea Nitrogen 43 mg/dL (8-26) Creatinine 5.8 mg/dL (0.7-1.3) Estimated GFR (Cockcroft-Gault) 10.1 BUN/Creatinine Ratio 7 (6-20) Glucose Level 75 mg/dL (70-99) Calcium Level 7.2 mg/dL (8.5-10.1) Phosphorus Level 5.5 mg/dL (2.6-4.7) Magnesium Level 2.6 mg/dL (1.8-2.4) Total Bilirubin 1.0 mg/dL (0.2-1.0) Aspartate Amino Transf (AST/SGOT) 158 U/L (15-37) Alanine Aminotransferase (ALT/SGPT) 91 U/L (16-63) Alkaline Phosphatase 106 U/L (46-116) Total Protein 7.2 g/dL (6.4-8.2) Albumin 2.7 g/dL (3.4-5.0) Albumin/Globulin Ratio 0.6 (1.0-1.7) Test 08/06/21 08:50 08/06/21 11:41 08/06/21 14:57 08/06/21 17:42 O2 Saturation 98 % (92-99) Arterial Blood pH 7.41 (7.35-7.45) Arterial Blood pCO2 at Patient Temp 39 mmHg (35-46) Arterial Blood pO2 at Patient Temp 134 mmHg (75-108) Arterial Blood HCO3 25 mmol/L (21-28) Arterial Blood Base Excess 0 mmol/L (-3-3) FiO2 35 Glucose (Fingerstick) 71 mg/dL (70-99) 77 mg/dL (70-99) 36 mg/dL (70-99) Test 08/06/21 17:59 08/07/21 00:20 08/07/21 06:15 Glucose (Fingerstick) 81 mg/dL (70-99) 124 mg/dL (70-99) 140 mg/dL (70-99) Laboratory Tests Test 08/06/21 08:50 08/06/21 11:41 08/06/21 14:57 08/06/21 17:42 O2 Saturation 98 % (92-99) Arterial Blood pH 7.41 (7.35-7.45) Arterial Blood pCO2 at Patient Temp 39 mmHg (35-46) Arterial Blood pO2 at Patient Temp 134 mmHg (75-108) Arterial Blood HCO3 25 mmol/L (21-28) Arterial Blood Base Excess 0 mmol/L (-3-3) FiO2 35 Glucose (Fingerstick) 71 mg/dL (70-99) 77 mg/dL (70-99) 36 mg/dL (70-99) Test 08/06/21 17:59 08/07/21 00:20 08/07/21 06:15 Glucose (Fingerstick) 81 mg/dL (70-99) 124 mg/dL (70-99) 140 mg/dL (70-99) Medications Active Scripts Medications Dose Route/Sig Max Daily Dose Days Date Category Tums (Calcium Carbonate) 200 Mg Tab.chew 400 Mg PO HS 04/19/21 Reported Sensipar (Cinacalcet Hcl) 60 Mg Tablet 1 Tab PO DAILY 30 04/19/21 Reported Ferric Citrate 210 Mg Tablet 2 Tab PO TID 30 04/19/21 Reported Lasix (Furosemide) 40 Mg Tablet 40 Mg PO BID 04/19/21 Reported Renagel (Sevelamer Hcl) 800 Mg Tablet 2 Tab PO TIDWMEALS 01/18/21 Reported Kapspargo Sprinkle (Metoprolol Succinate) 50 Mg Cap.spr.24 50 Mg PO DAILY 01/18/[address] chest reviewed dated 08/06/2021. Small basal pleural effusion with associated atelectasis. No definite consolidation seen Impression . IMPRESSION: 1. Acute hypoxemic respiratory failure, multifactorial. 2. Septic shock./Urosepsis 3. Fever related to above. 4. SARS-CoV-2 testing negative. 5. End-stage renal disease, on hemodialysis. 6. Possible stroke. 7. Other comorbidities including end-stage renal disease, hypertension, chronic obstructive pulmonary disease, gastroesophageal reflux, ischemic cardiomyopathy. Plan . Updated 07/24 Continue present assist-control mode. setting reviewed vasopressor to keep map 65 complicated urinary tract infection with septic shock. Follow ID recommendations Hemodialysis per nephrology Follow blood cultures DVT GI prophylaxis CT chest reviewed. No focal consolidation. Small basal effusion with associate d atelectasis. discussed w rn rt Updated 08/06 Continue present assist-control mode. continue present vasopressor support. complicated urinary tract infection with septic shock. Follow ID recommendations Hemodialysis per nephrology Continue pressors for map above 60 Follow blood cultures DVT GI prophylaxis CT chest reviewed. No focal consolidation. Small basal effusion with a ssociated atelectasis. CCT 30 minutes Updated 08/05 PLAN: 1. Continue current support with mechanical ventilation. 2. Adjust minute ventilation to normalize pH. 3. Hemodialysis per Nephrology. 4. Empiric antibiotics. 5. Follow blood cultures. 6. Nutritional support. 7. Replace magnesium. I do appreciate the privilege in sharing in the patient's care. Critical care time of 55 minutes, reviewing the current documentation, examining the patient, reviewing the imaging studies, labs, formulating the impression and plan. SHAMEKA YOON MD Aug 07, 2021 06:37
[2021-08-07 06:52] LABS: CALCIUM 8.2 mg/dL (8.5-10.1); CREATININE 5.1 mg/dL (0.7-1.3); GFR 11.8; MAGNESIUM 2.6 mg/dL (1.8-2.4); PHOSPHORUS 3.2 mg/dL (2.6-4.7); POTASSIUM 3.9 mmol/L (3.5-5.1)
--- NOTE | 2021-08-07 09:38 | PDOC ---
Infectious Disease Note Subjective Subjective Patient is intubated sedated ROS ROS No nausea vomiting diarrhea Vital Sign Vital Signs Vital Signs Date Time Temp Pulse Resp B/P (MAP) Pulse Ox O2 Delivery O2 Flow Rate FiO2 08/07/21 08:00 Mechanical Ventilator 08/07/21 08:00 99.3 92 20 110/46 100 99.3 08/07/21 02:46 15.0 Physical Exam PHYSICAL EXAM GENERAL: Sedated, orally intubated gentleman, not in distress. VITAL SIGNS: Stable though on vasopressor support HEENT: Both pupils are round and reacting. No conjunctival lesion. NECK: Supple. No JVP. Mouth cannot be visualized. Orally intubated. LUNGS: Decreased breath sounds bilaterally. HEART: S1, S2 regular. No gallop or murmur. ABDOMEN: Soft, nontender. No organomegaly. Suprapubic catheter is now looking good with normal looking urine. EXTREMITIES: No edema, cyanosis. SKIN: Unremarkable. AV shunt in the right upper extremity is unremarkable. NEUROLOGIC: The patient cannot be judged as sedated and intubated. Labs Lab Laboratory Tests Test 08/06/21 11:41 08/06/21 14:57 08/06/21 17:42 08/06/21 17:59 Glucose (Fingerstick) 71 mg/dL (70-99) 77 mg/dL (70-99) 36 mg/dL (70-99) 81 mg/dL (70-99) Test 08/07/21 00:20 08/07/21 06:00 08/07/21 06:15 Glucose (Fingerstick) 124 mg/dL (70-99) 140 mg/dL (70-99) White Blood Count 8.9 x10^3/uL (4.0-11.0) Red Blood Count 3.18 x10^6/uL (4.30-5.70) Hemoglobin 10.2 g/dL (13.0-17.5) Hematocrit 30.4 % (39.0-53.0) Mean Corpuscular Volume 96 fL (79-100) Mean Corpuscular Hemoglobin 32 pg (25-35) Mean Corpuscular Hemoglobin Concent 33 g/dL (31-37) Red Cell Distribution Width 16.8 % (11.5-14.5) Platelet Count 80 x10^3/uL (140-400) Neutrophils (%) (Auto) 78 % (31-73) Lymphocytes (%) (Auto) 7 % (24-48) Monocytes (%) (Auto) 11 % (0-9) Eosinophils (%) (Auto) 4 % (0-3) Basophils (%) (Auto) 0 % (0-3) Neutrophils # (Auto) 6.9 x10^3/uL (1.8-7.7) Lymphocytes # (Auto) 0.6 x10^3/uL (1.0-4.8) Monocytes # (Auto) 0.9 x10^3/uL (0.0-1.1) Eosinophils # (Auto) 0.3 x10^3/uL (0.0-0.7) Basophils # (Auto) 0.0 x10^3/uL (0.0-0.2) Sodium Level 136 mmol/L (136-145) Potassium Level 3.9 mmol/L (3.5-5.1) Chloride Level 99 mmol/L (98-107) Carbon Dioxide Level 25 mmol/L (21-32) Anion Gap 12 (6-14) Blood Urea Nitrogen 43 mg/dL (8-26) Creatinine 5.1 mg/dL (0.7-1.3) Estimated GFR (Cockcroft-Gault) 11.8 Glucose Level 150 mg/dL (70-99) Calcium Level 8.2 mg/dL (8.5-10.1) Phosphorus Level 3.2 mg/dL (2.6-4.7) Magnesium Level 2.6 mg/dL (1.8-2.4) Micro Blood culture all bottles positive with staph aureus Objective Assessment IMPRESSION: 1. Encephalopathy. 2. Fever. 3. Complicated urinary tract infection with sepsis. 4. Hypotension. 5. Respiratory failure, requiring intubation. 6. Suspected cerebrovascular accident. 7. End-stage renal disease, on hemodialysis. 8. Congestive heart failure. 9. History of hypertension. 10 blood culture positive MSSA 08/03/2021 Plan Plan of Care Continue antibiotics Zosyn DC vancomycin Supportive care Follow cultures ct chest abd and pelvis noted Also CT head with frontoparietal infarct repeat bc negative from 08/06/2021 CHAPIN VALERIO MD Aug 07, 2021 09:38
[2021-08-07] MEDS: PIPERACILLIN/TAZOBACTAM 2.25 GM in IV NORMAL SALINE 50ML 50 ML IV SCH ×3 (09:53→21:29)
[2021-08-07] MEDS: HEPARIN for SUB-Q USE 5,000 UNIT/ML VIAL. SQ SCH ×2 (09:53→21:24)
[2021-08-07] MEDS: ASPIRIN CHEWABLE 81 MG TABLET. PO SCH (09:54)
[2021-08-07] MEDS: PANTOPRAZOLE IV PUSH 40 MG VIAL. IVP SCH (09:54)
[2021-08-07 10:36] LABS: BASE EXCESS ABG 4 mmol/L (-3-3); HCO3 ABG 27 mmol/L (21-28); PCO2 ABG 35 mmHg (35-46); PO2 ABG 124 mmHg (75-108); SAT O2 ABG 98 % (92-99)
[2021-08-07 10:43] LABS: FIO2 ABG 35
--- NOTE | 2021-08-07 13:01 | PDOC ---
[facility] PROGRESS NOTE Date of Service DOS: DATE: 08/07/21 TIME: 13:00 Chief Complaint Chief Complaint Respiratory failure requiring mechanical ventilation Severe sepsis Possible stroke Suprapubic catheter; CHF; COPD; hypertension; pneumonia, End-stage renal disease, on dialysis; history of peritonitis dialysis as well left kidney stents; suprapubic catheter. History of Present Illness History of Present Illness 08/07/2021 Patient seen and examined in the ICU He remains on the vent AC/20/500/30 5% with 5 of PEEP Has art line in place SCDs in place Has OG clamped On IV TPN Sedated with fentanyl Versed Has IV Levophed and vasopressin hanging Discussed with RN Chart reviewed He remains extremely critically ill 08/06/2021 Patient seen and examined in the ICU CT of the head showing a small stroke CT of the abdomen showing possible obstruction Discussed with RN Chart reviewed He is still intubated AC//500/1 100% with 10 of PEEP OG feeds are running but we are going to stop that and start some TPN if okay with nephrology Sedated with propofol Versed and fentanyl and paralyzed with vecuronium He remains extremely critically ill 08/05/2021 Patient seen and examined in the ICU He is currently on dialysis Discussed with RN He is still on the vent AC/24/500/30 5% with 5 of PEEP Has SCDs in place Holloway to bedside drainage Sedated with fentanyl and Versed Has IV Levophed hanging Also on IV neomycin Also on IV vasopressin Extremely critically ill 08/04/2021 Patient seen and examined in the ICU He is mechanically ventilated AC/16/500/40 5% with 5 of PEEP He is extremely hypotensive 63/40 currently despite having Levophed and vasopressin Discussed with RN were going to start Michael-Synephrine Tachycardic at 117 bpm Patient is extremely cool and clammy Had a fever to 103.5 last night currently at 102.9 He is extremely critically ill Vitals/I&O Vitals/I&O: Vital Signs Date Time Temp Pulse Resp B/P (MAP) Pulse Ox O2 Delivery O2 Flow Rate FiO2 08/07/21 12:20 98 Ventilator 08/07/21 10:00 99.0 90 20 121/56 99.0 08/07/21 02:46 15.0 I & O 08/06/21 08/06/21 08/07/21 15:00 23:00 07:00 Intake Total 510 ml 34780.96 ml Output Total 800 ml 0 ml 0 ml Balance -290 ml 58940.96 ml 0 ml Physical Exam Physical Exam: GENERAL: Sedated, orally intubated gentleman, not in distress. VITAL SIGNS: Stable though on vasopressor support HEENT: Both pupils are round and reacting. No conjunctival lesion. NECK: Supple. No JVP. Mouth cannot be visualized. Orally intubated. LUNGS: Decreased breath sounds bilaterally. HEART: S1, S2 regular. No gallop or murmur. ABDOMEN: Soft, nontender. No organomegaly. Suprapubic catheter is now looking good with normal looking urine. EXTREMITIES: No edema, cyanosis. SKIN: Unremarkable. AV shunt in the right upper extremity is unremarkable. NEUROLOGIC: The patient cannot be judged as sedated and intubated. General: Other (sedated) Heart: Other (ST) Lungs: Crackles Abdomen: Soft Extremities: No edema Skin: No significant lesion Labs Labs: Laboratory Tests Test 08/06/21 14:57 08/06/21 17:42 08/06/21 17:59 08/07/21 00:20 Glucose (Fingerstick) 77 mg/dL (70-99) 36 mg/dL (70-99) 81 mg/dL (70-99) 124 mg/dL (70-99) Test 08/07/21 06:00 08/07/21 06:15 08/07/21 08:00 White Blood Count 8.9 x10^3/uL (4.0-11.0) Red Blood Count 3.18 x10^6/uL (4.30-5.70) Hemoglobin 10.2 g/dL (13.0-17.5) Hematocrit 30.4 % (39.0-53.0) Mean Corpuscular Volume 96 fL (79-100) Mean Corpuscular Hemoglobin 32 pg (25-35) Mean Corpuscular Hemoglobin Concent 33 g/dL (31-37) Red Cell Distribution Width 16.8 % (11.5-14.5) Platelet Count 80 x10^3/uL (140-400) Neutrophils (%) (Auto) 78 % (31-73) Lymphocytes (%) (Auto) 7 % (24-48) Monocytes (%) (Auto) 11 % (0-9) Eosinophils (%) (Auto) 4 % (0-3) Basophils (%) (Auto) 0 % (0-3) Neutrophils # (Auto) 6.9 x10^3/uL (1.8-7.7) Lymphocytes # (Auto) 0.6 x10^3/uL (1.0-4.8) Monocytes # (Auto) 0.9 x10^3/uL (0.0-1.1) Eosinophils # (Auto) 0.3 x10^3/uL (0.0-0.7) Basophils # (Auto) 0.0 x10^3/uL (0.0-0.2) Sodium Level 136 mmol/L (136-145) Potassium Level 3.9 mmol/L (3.5-5.1) Chloride Level 99 mmol/L (98-107) Carbon Dioxide Level 25 mmol/L (21-32) Anion Gap 12 (6-14) Blood Urea Nitrogen 43 mg/dL (8-26) Creatinine 5.1 mg/dL (0.7-1.3) Estimated GFR (Cockcroft-Gault) 11.8 Glucose Level 150 mg/dL (70-99) Calcium Level 8.2 mg/dL (8.5-10.1) Phosphorus Level 3.2 mg/dL (2.6-4.7) Magnesium Level 2.6 mg/dL (1.8-2.4) Glucose (Fingerstick) 140 mg/dL (70-99) O2 Saturation 98 % (92-99) Arterial Blood pH 7.50 (7.35-7.45) Arterial Blood pCO2 at Patient Temp 35 mmHg (35-46) Arterial Blood pO2 at Patient Temp 124 mmHg (75-108) Arterial Blood HCO3 27 mmol/L (21-28) Arterial Blood Base Excess 4 mmol/L (-3-3) FiO2 35 Assessment and Plan Assessmemt and Plan Problems Medical Problems: (1) Hypoxia Status: Acute (2) Respiratory failure Status: Acute (3) Sepsis Status: Acute (4) Stroke Status: Acute (5) UTI (urinary tract infection) Status: Acute Respiratory failure requiring mechanical ventilation Severe sepsis Possible stroke Suprapubic catheter; CHF; COPD; hypertension; pneumonia, End-stage renal disease, on dialysis; history of peritonitis dialysis as well left kidney stents; suprapubic catheter. Plan ICU monitoring Continue mechanical ventilation Vent weaning Neurology has ordered a repeat CT of the head agree IV antibiotics per infectious disease Continue our IV pressor support with Levophed vasopressin and were adding an Michael-Synephrine Trend labs Home meds when possible Lovenox 40 mg a day for DVT prophylaxis we will continue SCDs as well Dialysis per nephrology Nutritional support He remains very critically ill Appreciate subspecialist input Prognosis extremely guarded probably terminal CC time 31 minutes Comment Review of Relevant I have reviewed the following items allyson (where applicable) has been applied. Medications: Current Medications Medications (Trade) Dose Ordered Sig/Kevin Route PRN Reason Start Time Stop Time Status Last Admin Dose Admin Atorvastatin Calcium (Lipitor) 20 mg QHS PO 08/06/21 21:00 08/06/21 21:15 Sodium Chloride 90 meq/Potassium Chloride 20 meq/ Calcium Gluconate 10 meq/ Multivitamins 10 ml/Zinc/Copper/ Manganese/ Selenium 1 ml/ Total Parenteral Nutrition/Amino Acids/Dextrose/ Fat Emulsion Intravenous 1,200 ml @ 50 mls/hr TPN CONT IV 08/06/21 22:00 08/07/21 21:59 08/06/21 21:58 Pantoprazole Sodium (PROTONIX VIAL for IV PUSH) 40 mg DAILYAC IVP 08/06/21 15:00 08/07/21 09:54 Justifications for Admission Other Justification DEVAN PERALES III DO Aug 07, 2021 13:01
[2021-08-07] MEDS: TPN PER PHARMACY MC PRN (13:06)
--- NOTE | 2021-08-07 13:08 | PDOC ---
PROGRESS NOTES Date of Service DATE: 08/07/21 TIME: 13:06 Subjective Subjective Patient seen and examined Objective Objective Vital Signs Date Time Temp Pulse Resp B/P (MAP) Pulse Ox O2 Delivery O2 Flow Rate FiO2 08/07/21 12:20 98 Ventilator 08/07/21 10:00 99.0 90 20 121/56 99.0 08/07/21 02:46 15.0 Intake and Output 08/07/21 07:00 Intake Total 02227.96 ml Output Total 800 ml Balance 44011.96 [place] 33385.96 ml Tube Feeding 430 ml Other 500 ml Output Urine Total 0 ml Gastric Drainage Total 800 ml Physical Exam Abdomen: Normal bowel sounds Heart: Regular rate General: Other (Intubated) Lungs: Other (Mildly decreased breath sounds) Assessment Assessment Problems Medical Problems: (1) Hypoxia Status: Acute (2) Respiratory failure Status: Acute (3) Sepsis Status: Acute (4) Stroke Status: Acute (5) UTI (urinary tract infection) Status: Acute Encephalopathy, possible stroke with left-sided weakness Acute respiratory failure; multifactorial. Remains on a ventilator and is followed by pulmonary. Leukocytosis, Sepsis; BC + GPC Septic shock; requiring pressor support UTI with suprapubic cath ESRD on HD, hyperkalemia Arrhythmia; brief burst of NSVT on tele while on HD. none significant overnight Acute on chronic diastolic CHF; Echo 04/13 with preserved LV systolic function. 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 Labs Laboratory Tests Test 08/05/21 16:26 08/05/21 18:23 08/05/21 18:45 08/06/21 06:00 Glucose (Fingerstick) 78 mg/dL (70-99) 65 mg/dL (70-99) 109 mg/dL (70-99) White Blood Count 15.2 x10^3/uL (4.0-11.0) Red Blood Count 3.40 x10^6/uL (4.30-5.70) Hemoglobin 10.8 g/dL (13.0-17.5) Hematocrit 33.1 % (39.0-53.0) Mean Corpuscular Volume 97 fL (79-100) Mean Corpuscular Hemoglobin 32 pg (25-35) Mean Corpuscular Hemoglobin Concent 33 g/dL (31-37) Red Cell Distribution Width 17.3 % (11.5-14.5) Platelet Count 107 x10^3/uL (140-400) Sodium Level 132 mmol/L (136-145) Potassium Level 4.5 mmol/L (3.5-5.1) Chloride Level 97 mmol/L (98-107) Carbon Dioxide Level 23 mmol/L (21-32) Anion Gap 12 (6-14) Blood Urea Nitrogen 43 mg/dL (8-26) Creatinine 5.8 mg/dL (0.7-1.3) Estimated GFR (Cockcroft-Gault) 10.1 BUN/Creatinine Ratio 7 (6-20) Glucose Level 75 mg/dL (70-99) Calcium Level 7.2 mg/dL (8.5-10.1) Phosphorus Level 5.5 mg/dL (2.6-4.7) Magnesium Level 2.6 mg/dL (1.8-2.4) Total Bilirubin 1.0 mg/dL (0.2-1.0) Aspartate Amino Transf (AST/SGOT) 158 U/L (15-37) Alanine Aminotransferase (ALT/SGPT) 91 U/L (16-63) Alkaline Phosphatase 106 U/L (46-116) Total Protein 7.2 g/dL (6.4-8.2) Albumin 2.7 g/dL (3.4-5.0) Albumin/Globulin Ratio 0.6 (1.0-1.7) Test 08/06/21 06:04 08/06/21 08:50 08/06/21 11:41 08/06/21 14:57 Glucose (Fingerstick) 78 mg/dL (70-99) 71 mg/dL (70-99) 77 mg/dL (70-99) O2 Saturation 98 % (92-99) Arterial Blood pH 7.41 (7.35-7.45) Arterial Blood pCO2 at Patient Temp 39 mmHg (35-46) Arterial Blood pO2 at Patient Temp 134 mmHg (75-108) Arterial Blood HCO3 25 mmol/L (21-28) Arterial Blood Base Excess 0 mmol/L (-3-3) FiO2 35 Test 1/14/22 17:42 08/06/21 17:59 08/07/21 00:20 08/07/21 06:00 Glucose (Fingerstick) 36 mg/dL (70-99) 81 mg/dL (70-99) 124 mg/dL (70-99) White Blood Count 8.9 x10^3/uL (4.0-11.0) Red Blood Count 3.18 x10^6/uL (4.30-5.70) Hemoglobin 10.2 g/dL (13.0-17.5) Hematocrit 30.4 % (39.0-53.0) Mean Corpuscular Volume 96 fL (79-100) Mean Corpuscular Hemoglobin 32 pg (25-35) Mean Corpuscular Hemoglobin Concent 33 g/dL (31-37) Red Cell Distribution Width 16.8 % (11.5-14.5) Platelet Count 80 x10^3/uL (140-400) Neutrophils (%) (Auto) 78 % (31-73) Lymphocytes (%) (Auto) 7 % (24-48) Monocytes (%) (Auto) 11 % (0-9) Eosinophils (%) (Auto) 4 % (0-3) Basophils (%) (Auto) 0 % (0-3) Neutrophils # (Auto) 6.9 x10^3/uL (1.8-7.7) Lymphocytes # (Auto) 0.6 x10^3/uL (1.0-4.8) Monocytes # (Auto) 0.9 x10^3/uL (0.0-1.1) Eosinophils # (Auto) 0.3 x10^3/uL (0.0-0.7) Basophils # (Auto) 0.0 x10^3/uL (0.0-0.2) Sodium Level 136 mmol/L (136-145) Potassium Level 3.9 mmol/L (3.5-5.1) Chloride Level 99 mmol/L (98-107) Carbon Dioxide Level 25 mmol/L (21-32) Anion Gap 12 (6-14) Blood Urea Nitrogen 43 mg/dL (8-26) Creatinine 5.1 mg/dL (0.7-1.3) Estimated GFR (Cockcroft-Gault) 11.8 Glucose Level 150 mg/dL (70-99) Calcium Level 8.2 mg/dL (8.5-10.1) Phosphorus Level 3.2 mg/dL (2.6-4.7) Magnesium Level 2.6 mg/dL (1.8-2.4) Test 08/07/21 06:15 08/07/21 08:00 Glucose (Fingerstick) 140 mg/dL (70-99) O2 Saturation 98 % (92-99) Arterial Blood pH 7.50 (7.35-7.45) Arterial Blood pCO2 at Patient Temp 35 mmHg (35-46) Arterial Blood pO2 at Patient Temp 124 mmHg (75-108) Arterial Blood HCO3 27 mmol/L (21-28) Arterial Blood Base Excess 4 mmol/L (-3-3) FiO2 35 Laboratory Tests Test 08/06/21 14:57 08/06/21 17:42 08/06/21 17:59 08/07/21 00:20 Glucose (Fingerstick) 77 mg/dL (70-99) 36 mg/dL (70-99) 81 mg/dL (70-99) 124 mg/dL (70-99) Test 08/07/21 06:00 08/07/21 06:15 08/07/21 08:00 White Blood Count 8.9 x10^3/uL (4.0-11.0) Red Blood Count 3.18 x10^6/uL (4.30-5.70) Hemoglobin 10.2 g/dL (13.0-17.5) Hematocrit 30.4 % (39.0-53.0) Mean Corpuscular Volume 96 fL (79-100) Mean Corpuscular Hemoglobin 32 pg (25-35) Mean Corpuscular Hemoglobin Concent 33 g/dL (31-37) Red Cell Distribution Width 16.8 % (11.5-14.5) Platelet Count 80 x10^3/uL (140-400) Neutrophils (%) (Auto) 78 % (31-73) Lymphocytes (%) (Auto) 7 % (24-48) Monocytes (%) (Auto) 11 % (0-9) Eosinophils (%) (Auto) 4 % (0-3) Basophils (%) (Auto) 0 % (0-3) Neutrophils # (Auto) 6.9 x10^3/uL (1.8-7.7) Lymphocytes # (Auto) 0.6 x10^3/uL (1.0-4.8) Monocytes # (Auto) 0.9 x10^3/uL (0.0-1.1) Eosinophils # (Auto) 0.3 x10^3/uL (0.0-0.7) Basophils # (Auto) 0.0 x10^3/uL (0.0-0.2) Sodium Level 136 mmol/L (136-145) Potassium Level 3.9 mmol/L (3.5-5.1) Chloride Level 99 mmol/L (98-107) Carbon Dioxide Level 25 mmol/L (21-32) Anion Gap 12 (6-14) Blood Urea Nitrogen 43 mg/dL (8-26) Creatinine 5.1 mg/dL (0.7-1.3) Estimated GFR (Cockcroft-Gault) 11.8 Glucose Level 150 mg/dL (70-99) Calcium Level 8.2 mg/dL (8.5-10.1) Phosphorus Level 3.2 mg/dL (2.6-4.7) Magnesium Level 2.6 mg/dL (1.8-2.4) Glucose (Fingerstick) 140 mg/dL (70-99) O2 Saturation 98 % (92-99) Arterial Blood pH 7.50 (7.35-7.45) Arterial Blood pCO2 at Patient Temp 35 mmHg (35-46) Arterial Blood pO2 at Patient Temp 124 mmHg (75-108) Arterial Blood HCO3 27 mmol/L (21-28) Arterial Blood Base Excess 4 mmol/L (-3-3) FiO2 35 Microbiology 08/06/21 Blood Culture - Preliminary, Resulted NO GROWTH AFTER 1 DAY 08/03/21 Urine Culture - Final, Complete Medications Current Medications Sodium Chloride 1,000 ml @ 1,000 mls/hr 1X ONCE IV Last administered on 08/03/21at 11:26; Start 08/03/21 at 11:15; Stop 08/03/21 at 12:14; Status DC Piperacillin Sod/ Tazobactam Sod 4.5 gm/Sodium Chloride 100 ml @ 200 mls/hr 1X ONCE IV Last administered on 08/03/21at 11:26; Start 08/03/21 at 11:15; Stop 08/03/21 at 11:44; Status DC Vancomycin HCl 1.5 gm/Sodium Chloride 500 ml @ 250 mls/hr 1X ONCE IV Last administered on 08/03/21at 12:00; Start 08/03/21 at 12:00; Stop 08/03/21 at 13:59; Status DC Iohexol (Omnipaque 300 Mg/ml) 75 ml 1X ONCE IV Last administered on 08/03/21at 11:29; Start 08/03/21 at 11:15; Stop 08/03/21 at 11:16; Status DC Info (CONTRAST GIVEN -- Rx MONITORING) 1 each PRN DAILY PRN MC SEE COMMENTS; Start 08/03/21 at 11:15; Stop 08/05/21 at 11:14; Status DC Fentanyl Citrate 30 ml @ 2.5 mls/hr CONT PRN IV SEE PROTOCOL; Start 08/03/21 at 12:15; Status Cancel Propofol 100 ml @ 2.235 mls/ hr CONT PRN IV PER PROTOCOL Last administered on 08/03/21at 12:31; Start 08/03/21 at 12:15; Stop 08/04/21 at 07:38; Status DC Chlorhexidine Gluconate (Peridex) 15 ml BID MM ; Start 08/03/21 at 21:00; Status Cancel Glycerin/ Hypromellose/ Polyethylene (Artificial Tears) 1 drop PRN Q1HR PRN OU DRY EYE; Start 08/03/21 at 12:15; Stop 08/03/21 at 21:15; Status DC Dexmedetomidine HCl 400 mcg/ Sodium Chloride 100 ml @ 3.725 mls/ hr CONT PRN IV PER PROTOCOL; Start 08/03/21 at 12:15; Stop 08/03/21 at 21:15; Status DC Midazolam HCl (Versed) 5 mg PRN 1X PRN IVP VENT INDUCTION Last administered on 08/03/21at 14:12; Start 08/03/21 at 12:15; Stop 08/03/21 at 14:12; Status DC Etomidate (Amidate) 10 mg 1X ONCE IV Last administered on 08/03/21at 12:48; Start 08/03/21 at 12:45; Stop 08/03/21 at 12:46; Status DC Rocuronium Tenstrike (Zemuron) 100 mg 1X ONCE IV Last administered on 08/03/21at 12:45; Start 08/03/21 at 12:45; Stop 08/03/21 at 12:46; Status DC Sodium Chloride 250 ml @ 250 mls/hr 1X ONCE IV Last administered on 08/03/21at 14:21; Start 08/03/21 at 14:30; Stop 08/03/21 at 15:29; Status DC Fentanyl Citrate 30 ml @ 2.5 mls/hr CONT PRN IV SEE PROTOCOL Last administered on 08/07/21at 02:46; Start 08/03/21 at 15:00 Midazolam HCl 100 ml @ 1 mls/hr CONT PRN IV SEE PROTOCOL Last administered on 08/07/21at 00:37; Start 08/03/21 at 15:00 Propofol 100 ml @ 2.235 mls/ hr CONT PRN IV PER PROTOCOL; Start 08/03/21 at 15:00 Vecuronium Tenstrike (Norcuron Bolus) 6 mg PRN 1X PRN IV VENT INDUCTION; Start 08/03/21 at 15:00; Stop 08/04/21 at 14:59; Status DC Chlorhexidine Gluconate (Peridex) 15 ml BID MM ; Start 08/03/21 at 21:00; Stop 08/04/21 at 19:49; Status DC Glycerin/ Hypromellose/ Polyethylene (Artificial Tears) 1 drop PRN Q1HR PRN OU DRY EYE; Start 08/03/21 at 15:00 Dexmedetomidine HCl 400 mcg/ Sodium Chloride 100 ml @ 3.725 mls/ hr CONT PRN IV PER PROTOCOL; Start 08/03/21 at 15:00 Midazolam HCl (Versed) 5 mg PRN 1X PRN IVP VENT INDUCTION; Start 08/03/21 at 15:00; Stop 08/04/21 at 14:59; Status DC Sodium Chloride 500 ml @ 500 mls/hr 1X PRN PRN IV SEE COMMENTS; Start 08/03/21 at 15:00 Atropine Sulfate (ATROPINE 0.5mg SYRINGE) 0.5 mg PRN Q5MIN PRN IV SEE COMMENTS; Start 08/03/21 at 15:00 Famotidine (Pepcid Vial) 20 mg BID IVP Last administered on 08/03/21at 21:00; Start 08/03/21 at 21:00; Stop 08/04/21 at 07:59; Status DC Norepinephrine Bitartrate 8 mg/ Dextrose 258 ml @ 14.416 mls/ hr CONT PRN IV PER PROTOCOL Last administered on 08/04/21at 03:52; Start 08/03/21 at 15:00; Stop 08/04/21 at 05:29; Status DC Etomidate (Amidate) 20 mg STK-MED ONCE IV ; Start 08/03/21 at 17:04; Stop 08/03/21 at 17:04; Status DC Rocuronium Tenstrike (Zemuron) 50 mg STK-MED ONCE .ROUTE ; Start 08/03/21 at 17:04; Stop 08/03/21 at 17:04; Status DC Acetaminophen (Tylenol Supp) 650 mg PRN Q6HRS PRN MA MILD PAIN / TEMP > 100.3'F Last administered on 08/04/21at 20:25; Start 08/03/21 at 20:45 Acetaminophen (Tylenol) 650 mg PRN Q6HRS PRN PEG MILD PAIN / TEMP > 100.3'F; Start 08/03/21 at 20:45 Vasopressin 20 unit/Dextrose 101 ml @ 12 mls/hr CONT PRN IV SEE I/O RECORD Last administered on 08/07/21at 06:21; Start 08/04/21 at 03:45 Norepinephrine Bitartrate 32 mg/ Dextrose 250 ml @ 3.492 mls/ hr CONT PRN IV SEE I/O RECORD Last administered on 08/07/21at 02:12; Start 08/04/21 at 05:30 Phenylephrine HCl 50 mg/Sodium Chloride 255 ml @ 11.399 mls/ hr CONT PRN IV PER PROTOCOL Last administered on 08/05/21at 05:38; Start 08/04/21 at 06:30 Piperacillin Sod/ Tazobactam Sod 2.25 gm/Sodium Chloride 50 ml @ 100 mls/hr Q8HRS IV Last administered on 08/07/21at 09:53; Start 08/04/21 at 08:00 Vancomycin HCl (Vanco Per Pharmacy) 1 each PRN DAILY PRN MC SEE COMMENTS Last administered on 08/06/21at 11:08; Start 08/04/21 at 08:00; Stop 08/07/21 at 09:38; Status DC Famotidine (Pepcid Vial) 20 mg QODAY IVP Last administered on 08/06/21at 09:08; Start 08/04/21 at 09:00; Stop 08/06/21 at 14:25; Status DC Vancomycin HCl (Vanco Per Pharmacy) 1 each PRN DAILY PRN MC SEE COMMENTS; Start 08/04/21 at 08:00; Status UNV Piperacillin Sod/ Tazobactam Sod 2.25 gm/Sodium Chloride 50 ml @ 100 mls/hr Q6HRS IV ; Start 08/04/21 at 12:00; Status UNV Ciprofloxacin/ Dextrose 200 ml @ 200 mls/hr DAILY IV Last administered on 08/04/21at 11:38; Start 08/04/21 at 09:00; Stop 08/05/21 at 09:18; Status DC Lidocaine HCl (Xylocaine-Mpf 1% 5ml Vial) 5 ml 1X ONCE INJ ; Start 08/04/21 at 09:30; Stop 08/04/21 at 09:31; Status DC Lidocaine HCl (Buffered Lidocaine 1%) 3 ml STK-MED ONCE .ROUTE ; Start 08/04/21 at 12:33; Stop 08/04/21 at 12:33; Status DC Iohexol (Omnipaque 240 Mg/ml) 50 ml STK-MED ONCE .ROUTE ; Start 08/04/21 at 12:36; Stop 08/04/21 at 12:36; Status DC Lidocaine HCl (Buffered Lidocaine 1%) 3 ml 1X ONCE IJ Last administered on 08/04/21at 13:15; Start 08/04/21 at 13:30; Stop 08/04/21 at 13:31; Status DC Iohexol (Omnipaque 300 Mg/ml) 50 ml 1X ONCE IART ; Start 08/04/21 at 13:30; Stop 08/04/21 at 13:31; Status DC Vancomycin HCl (Vancomycin Random Level) 1 each 1X ONCE MC Last administered on 08/05/21at 06:14; Start 08/05/21 at 06:00; Stop 08/05/21 at 06:01; Status DC Albumin Human 100 ml @ 100 mls/hr PRN DAILY PRN IV SEE COMMENTS Last administered on 08/06/21at 14:15; Start 08/05/21 at 08:15 Sodium Chloride 1,000 ml @ 1,000 mls/hr Q1H PRN IV hypotension; Start 08/05/21 at 09:15; Stop 08/05/21 at 15:14; Status DC Sodium Chloride 1,000 ml @ 400 mls/hr Q2H30M PRN IV PATENCY; Start 08/05/21 at 09:15; Stop 08/05/21 at 21:14; Status DC Info (PHARMACY MONITORING -- do not chart) 1 each PRN DAILY PRN MC SEE COMMENTS; Start 08/05/21 at 09:15 Vancomycin HCl 500 mg/Sodium Chloride 100 ml @ 100 mls/hr QTUTHSA IV Last administered on 08/05/21at 15:59; Start 08/05/21 at 16:00; Stop 08/07/21 at 09:38; Status DC Heparin Sodium (Porcine) (Heparin Sodium) 5,000 unit Q12HR SQ Last administered on 08/07/21at 09:53; Start 08/05/21 at 11:00 Dextrose (Dextrose 50%-Water Syringe) 25 gm STK-MED ONCE IV ; Start 08/05/21 at 12:45; Stop 08/05/21 at 12:45; Status DC Dextrose (Dextrose 50%-Water Syringe) 12.5 gm PRN Q15MIN PRN IV SEE COMMENTS Last administered on 08/06/21at 17:47; Start 08/05/21 at 13:00 Magnesium Sulfate 50 ml @ 25 mls/hr 1X ONCE IV Last administered on 08/05/21at 16:59; Start 08/05/21 at 16:30; Stop 08/05/21 at 18:29; Status DC Iohexol (Omnipaque 300 Mg/ml) 60 ml 1X ONCE IV Last administered on 08/06/21at 09:30; Start 08/06/21 at 09:30; Stop 08/06/21 at 09:31; Status DC Info (CONTRAST GIVEN -- Rx MONITORING) 1 each PRN DAILY PRN MC SEE COMMENTS; Start 08/06/21 at 09:45; Stop 08/08/21 at 09:44 Aspirin (Aspirin Chewable) 81 mg DAILYWBKFT PO Last administered on 08/07/21at 09:54; Start 08/06/21 at 11:45 Atorvastatin Calcium (Lipitor) 20 mg QHS PO Last administered on 08/06/21at 21:15; Start 08/06/21 at 21:00 Sodium Chloride 1,000 ml @ 1,000 mls/hr Q1H PRN IV hypotension; Start 08/06/21 at 12:00; Stop 08/06/21 at 17:59; Status DC Sodium Chloride 1,000 ml @ 400 mls/hr Q2H30M PRN IV PATENCY; Start 08/06/21 at 12:00; Stop 08/06/21 at 23:59; Status DC Info (PHARMACY MONITORING -- do not chart) 1 each PRN DAILY PRN MC SEE COMMENTS; Start 08/06/21 at 12:00; Status UNV Info (Tpn Per Pharmacy) 1 each PRN DAILY PRN MC SEE COMMENTS Last administered on 08/06/21at 12:30; Start 08/06/21 at 12:30 Sodium Chloride 90 meq/Potassium Chloride 20 meq/ Calcium Gluconate 10 meq/ Multivitamins 10 ml/Zinc/Copper/ Manganese/ Selenium 1 ml/ Total Parenteral Nutrition/Amino Acids/Dextrose/ Fat Emulsion Intravenous 1,200 ml @ 50 mls/hr TPN CONT IV Last administered on 08/06/21at 21:58; Start 08/06/21 at 22:00; Stop 08/07/21 at 21:59 Pantoprazole Sodium (PROTONIX VIAL for IV PUSH) 40 mg DAILYAC IVP Last ad ministered on 08/07/21at 09:54; Start 08/06/21 at 15:00 Sodium Chloride 1,000 ml @ 1,000 mls/hr Q1H PRN IV hypotension; Start 08/07/21 at 05:30; Stop 08/07/21 at 11:29; Status DC Albumin Human 200 ml @ 200 mls/hr 1X PRN PRN IV Hypotension; Start 08/07/21 at 05:30; Stop 08/07/21 at 11:29; Status DC Sodium Chloride (Normal Saline Flush) 10 ml 1X PRN PRN IV AP catheter pack; Start 08/07/21 at 05:30; Stop 08/08/21 at 05:29 Sodium Chloride (Normal Saline Flush) 10 ml 1X PRN PRN IV WET END HELPER catheter pack; Start 08/07/21 at 05:30; Stop 08/08/21 at 05:29 Sodium Chloride 1,000 ml @ 400 mls/hr Q2H30M PRN IV PATENCY; Start 08/07/21 at 05:30; Stop 08/07/21 at 17:29 Info (PHARMACY MONITORING -- do not chart) 1 each PRN DAILY PRN MC SEE COMMENTS; Start 08/07/21 at 05:30 Info (PHARMACY MONITORING -- do not chart) 1 each PRN DAILY PRN MC SEE COMMENTS; Start 08/07/21 at 05:30; Stop 08/07/21 at 05:28; Status DC Active Scripts Active Reported Tums (Calcium Carbonate) 200 Mg Tab.chew 400 Mg PO HS Sensipar (Cinacalcet Hcl) 60 Mg Tablet 1 Tab PO DAILY 30 Days Ferric Citrate 210 Mg Tablet 2 Tab PO TID 30 Days Lasix (Furosemide) 40 Mg Tablet 40 Mg PO BID Renagel (Sevelamer Hcl) 800 Mg Tablet 2 Tab PO TIDWMEALS Kapspargo Sprinkle (Metoprolol Succinate) 50 Mg Cap.spr.24 50 Mg PO DAILY Vitals/I & O Vital Sign - Last 24 Hours 08/06/21 08/06/21 08/06/21 08/06/21 13:51 14:00 15:00 16:00 Temp 98.2 98.2 Pulse 100 98 94 Resp 20 20 20 B/P (MAP) 100/46 116/48 154/58 Pulse Ox 100 100 100 100 O2 Delivery Ventilator Ventilator Ventilator Ventilator 08/06/21 08/06/21 08/06/21 08/06/21 16:14 16:15 16:30 16:44 Pulse 94 94 Resp 20 B/P (MAP) 124/52 130/52 Pulse Ox 100 99 O2 Delivery Ventilator Ventilator 08/06/21 08/06/21 08/06/21 08/06/21 16:45 17:00 17:14 18:00 Pulse 94 94 97 Resp 20 20 20 B/P (MAP) 128/52 122/52 114/48 Pulse Ox 100 100 100 O2 Delivery Ventilator Ventilator Ventilator 08/06/21 08/06/21 08/06/21 08/06/21 19:00 20:00 20:00 21:00 Temp 98.6 98.6 Pulse 92 90 92 Resp 20 22 B/P (MAP) 114/48 112/50 119/48 Pulse Ox 100 100 100 O2 Delivery Ventilator Mechanical Ventilator Ventilator Ventilator 08/06/21 08/06/21 08/06/21 08/07/21 21:00 22:00 23:00 00:01 Temp 99.7 99.7 Pulse 92 90 94 Resp 21 21 20 B/P (MAP) 138/51 120/80 116/48 Pulse Ox 100 100 100 100 O2 Delivery Ventilator Ventilator Ventilator Ventilator 08/07/21 08/07/21 08/07/21 08/07/21 01:00 01:00 02:00 02:46 Pulse 92 93 Resp 20 22 B/P (MAP) 120/48 112/48 Pulse Ox 100 100 100 100 O2 Delivery Ventilator Ventilator Ventilator O2 Flow Rate 15.0 08/07/21 08/07/21 08/07/21 08/07/21 03:00 04:00 05:00 05:00 Temp 100.2 100.2 Pulse 93 92 93 Resp 20 20 20 B/P (MAP) 121/51 149/48 121/51 Pulse Ox 100 100 100 100 O2 Delivery Ventilator Ventilator Ventilator Ventilator 08/07/21 08/07/21 08/07/21 08/07/21 06:00 07:00 08:00 08:00 Temp 99.7 99.3 99.7 99.3 Pulse 93 94 92 Resp 20 20 20 B/P (MAP) 109/45 114/46 110/46 Pulse Ox 100 100 100 O2 Delivery Ventilator Ventilator Ventilator Mechanical Ventilator 08/07/21 08/07/21 08/07/21 08/07/21 09:00 10:00 10:27 12:20 Temp 99.0 99.0 99.0 99.0 Pulse 90 90 Resp 20 20 B/P (MAP) 110/46 121/56 Pulse Ox 100 98 97 98 O2 Delivery Ventilator Ventilator Ventilator Ventilator Intake and Output 08/06/21 08/06/21 08/07/21 15:00 23:00 07:00 Intake Total 510 ml 21982.96 ml Output Total 800 ml 0 ml 0 ml Balance -290 ml 93696.96 ml 0 ml Justifications for Admission Other Justification KASSIEO OSCAR CORMIER MD Aug 07, 2021 13:08
--- NOTE | 2021-08-07 13:39 | PDOC ---
PROGRESS NOTES Date of Service DATE: 08/07/21 TIME: 13:38 Subjective Subjective IN FOLLOW UP OF RENAL FAILURE Objective Objective Vital Signs Date Time Temp Pulse Resp B/P (MAP) Pulse Ox O2 Delivery O2 Flow Rate FiO2 08/07/21 12:20 98 Ventilator 08/07/21 10:00 99.0 90 20 121/56 99.0 08/07/21 02:46 15.0 Intake and Output 08/07/21 07:00 Intake Total 22210.96 ml Output Total 800 ml Balance 11913.96 [place] [address]239.96 ml Tube Feeding 430 ml Other 500 ml Output Urine Total 0 ml Gastric Drainage Total 800 ml Physical Exam COMMENT COVID 19 + AND NO BEDSIDE EXAM Diagnosis RENAL FAILURE: Acute (Acute tubular necrosis) Assessment Assessment Problems Medical Problems: (1) Hypoxia Status: Acute (2) Respiratory failure Status: Acute (3) Sepsis Status: Acute (4) Stroke Status: Acute (5) UTI (urinary tract infection) Status: Acute Plan Plan of Care FOR DIALYSIS MONDAY AND NO ACUTE INDICATION TODAY Comment Review of Relevant I have reviewed the following items allyson (where applicable) has been applied. Labs Laboratory Tests Test 08/05/21 16:26 08/05/21 18:23 08/05/21 18:45 08/06/21 06:00 Glucose (Fingerstick) 78 mg/dL (70-99) 65 mg/dL (70-99) 109 mg/dL (70-99) White Blood Count 15.2 x10^3/uL (4.0-11.0) Red Blood Count 3.40 x10^6/uL (4.30-5.70) Hemoglobin 10.8 g/dL (13.0-17.5) Hematocrit 33.1 % (39.0-53.0) Mean Corpuscular Volume 97 fL (79-100) Mean Corpuscular Hemoglobin 32 pg (25-35) Mean Corpuscular Hemoglobin Concent 33 g/dL (31-37) Red Cell Distribution Width 17.3 % (11.5-14.5) Platelet Count 107 x10^3/uL (140-400) Sodium Level 132 mmol/L (136-145) Potassium Level 4.5 mmol/L (3.5-5.1) Chloride Level 97 mmol/L (98-107) Carbon Dioxide Level 23 mmol/L (21-32) Anion Gap 12 (6-14) Blood Urea Nitrogen 43 mg/dL (8-26) Creatinine 5.8 mg/dL (0.7-1.3) Estimated GFR (Cockcroft-Gault) 10.1 BUN/Creatinine Ratio 7 (6-20) Glucose Level 75 mg/dL (70-99) Calcium Level 7.2 mg/dL (8.5-10.1) Phosphorus Level 5.5 mg/dL (2.6-4.7) Magnesium Level 2.6 mg/dL (1.8-2.4) Total Bilirubin 1.0 mg/dL (0.2-1.0) Aspartate Amino Transf (AST/SGOT) 158 U/L (15-37) Alanine Aminotransferase (ALT/SGPT) 91 U/L (16-63) Alkaline Phosphatase 106 U/L (46-116) Total Protein 7.2 g/dL (6.4-8.2) Albumin 2.7 g/dL (3.4-5.0) Albumin/Globulin Ratio 0.6 (1.0-1.7) Test 08/06/21 06:04 08/06/21 08:50 08/06/21 11:41 08/06/21 14:57 Glucose (Fingerstick) 78 mg/dL (70-99) 71 mg/dL (70-99) 77 mg/dL (70-99) O2 Saturation 98 % (92-99) Arterial Blood pH 7.41 (7.35-7.45) Arterial Blood pCO2 at Patient Temp 39 mmHg (35-46) Arterial Blood pO2 at Patient Temp 134 mmHg (75-108) Arterial Blood HCO3 25 mmol/L (21-28) Arterial Blood Base Excess 0 mmol/L (-3-3) FiO2 35 Test 08/06/21 17:42 08/06/21 17:59 08/07/21 00:20 08/07/21 06:00 Glucose (Fingerstick) 36 mg/dL (70-99) 81 mg/dL (70-99) 124 mg/dL (70-99) White Blood Count 8.9 x10^3/uL (4.0-11.0) Red Blood Count 3.18 x10^6/uL (4.30-5.70) Hemoglobin 10.2 g/dL (13.0-17.5) Hematocrit 30.4 % (39.0-53.0) Mean Corpuscular Volume 96 fL (79-100) Mean Corpuscular Hemoglobin 32 pg (25-35) Mean Corpuscular Hemoglobin Concent 33 g/dL (31-37) Red Cell Distribution Width 16.8 % (11.5-14.5) Platelet Count 80 x10^3/uL (140-400) Neutrophils (%) (Auto) 78 % (31-73) Lymphocytes (%) (Auto) 7 % (24-48) Monocytes (%) (Auto) 11 % (0-9) Eosinophils (%) (Auto) 4 % (0-3) Basophils (%) (Auto) 0 % (0-3) Neutrophils # (Auto) 6.9 x10^3/uL (1.8-7.7) Lymphocytes # (Auto) 0.6 x10^3/uL (1.0-4.8) Monocytes # (Auto) 0.9 x10^3/uL (0.0-1.1) Eosinophils # (Auto) 0.3 x10^3/uL (0.0-0.7) Basophils # (Auto) 0.0 x10^3/uL (0.0-0.2) Sodium Level 136 mmol/L (136-145) Potassium Level 3.9 mmol/L (3.5-5.1) Chloride Level 99 mmol/L (98-107) Carbon Dioxide Level 25 mmol/L (21-32) Anion Gap 12 (6-14) Blood Urea Nitrogen 43 mg/dL (8-26) Creatinine 5.1 mg/dL (0.7-1.3) Estimated GFR (Cockcroft-Gault) 11.8 Glucose Level 150 mg/dL (70-99) Calcium Level 8.2 mg/dL (8.5-10.1) Phosphorus Level 3.2 mg/dL (2.6-4.7) Magnesium Level 2.6 mg/dL (1.8-2.4) Test 08/07/21 06:15 08/07/21 08:00 Glucose (Fingerstick) 140 mg/dL (70-99) O2 Saturation 98 % (92-99) Arterial Blood pH 7.50 (7.35-7.45) Arterial Blood pCO2 at Patient Temp 35 mmHg (35-46) Arterial Blood pO2 at Patient Temp 124 mmHg (75-108) Arterial Blood HCO3 27 mmol/L (21-28) Arterial Blood Base Excess 4 mmol/L (-3-3) FiO2 35 Laboratory Tests Test 08/06/21 14:57 08/06/21 17:42 08/06/21 17:59 08/07/21 00:20 Glucose (Fingerstick) 77 mg/dL (70-99) 36 mg/dL (70-99) 81 mg/dL (70-99) 124 mg/dL (70-99) Test 08/07/21 06:00 08/07/21 06:15 08/07/21 08:00 White Blood Count 8.9 x10^3/uL (4.0-11.0) Red Blood Count 3.18 x10^6/uL (4.30-5.70) Hemoglobin 10.2 g/dL (13.0-17.5) Hematocrit 30.4 % (39.0-53.0) Mean Corpuscular Volume 96 fL (79-100) Mean Corpuscular Hemoglobin 32 pg (25-35) Mean Corpuscular Hemoglobin Concent 33 g/dL (31-37) Red Cell Distribution Width 16.8 % (11.5-14.5) Platelet Count 80 x10^3/uL (140-400) Neutrophils (%) (Auto) 78 % (31-73) Lymphocytes (%) (Auto) 7 % (24-48) Monocytes (%) (Auto) 11 % (0-9) Eosinophils (%) (Auto) 4 % (0-3) Basophils (%) (Auto) 0 % (0-3) Neutrophils # (Auto) 6.9 x10^3/uL (1.8-7.7) Lymphocytes # (Auto) 0.6 x10^3/uL (1.0-4.8) Monocytes # (Auto) 0.9 x10^3/uL (0.0-1.1) Eosinophils # (Auto) 0.3 x10^3/uL (0.0-0.7) Basophils # (Auto) 0.0 x10^3/uL (0.0-0.2) Sodium Level 136 mmol/L (136-145) Potassium Level 3.9 mmol/L (3.5-5.1) Chloride Level 99 mmol/L (98-107) Carbon Dioxide Level 25 mmol/L (21-32) Anion Gap 12 (6-14) Blood Urea Nitrogen 43 mg/dL (8-26) Creatinine 5.1 mg/dL (0.7-1.3) Estimated GFR (Cockcroft-Gault) 11.8 Glucose Level 150 mg/dL (70-99) Calcium Level 8.2 mg/dL (8.5-10.1) Phosphorus Level 3.2 mg/dL (2.6-4.7) Magnesium Level 2.6 mg/dL (1.8-2.4) Glucose (Fingerstick) 140 mg/dL (70-99) O2 Saturation 98 % (92-99) Arterial Blood pH 7.50 (7.35-7.45) Arterial Blood pCO2 at Patient Temp 35 mmHg (35-46) Arterial Blood pO2 at Patient Temp 124 mmHg (75-108) Arterial Blood HCO3 27 mmol/L (21-28) Arterial Blood Base Excess 4 mmol/L (-3-3) FiO2 35 Microbiology 08/06/21 Blood Culture - Preliminary, Resulted NO GROWTH AFTER 1 DAY 08/03/21 Urine Culture - Final, Complete Medications Current Medications Sodium Chloride 1,000 ml @ 1,000 mls/hr 1X ONCE IV Last administered on 08/03/21at 11:26; Start 08/03/21 at 11:15; Stop 08/03/21 at 12:14; Status DC Piperacillin Sod/ Tazobactam Sod 4.5 gm/Sodium Chloride 100 ml @ 200 mls/hr 1X ONCE IV Last administered on 08/03/21at 11:26; Start 08/03/21 at 11:15; Stop 08/03/21 at 11:44; Status DC Vancomycin HCl 1.5 gm/Sodium Chloride 500 ml @ 250 mls/hr 1X ONCE IV Last administered on 08/03/21at 12:00; Start 08/03/21 at 12:00; Stop 08/03/21 at 13:59; Status DC Iohexol (Omnipaque 300 Mg/ml) 75 ml 1X ONCE IV Last administered on 08/03/21at 11:29; Start 08/03/21 at 11:15; Stop 08/03/21 at 11:16; Status DC Info (CONTRAST GIVEN -- Rx MONITORING) 1 each PRN DAILY PRN MC SEE COMMENTS; Start 08/03/21 at 11:15; Stop 08/05/21 at 11:14; Status DC Fentanyl Citrate 30 ml @ 2.5 mls/hr CONT PRN IV SEE PROTOCOL; Start 08/03/21 at 12:15; Status Cancel Propofol 100 ml @ 2.235 mls/ hr CONT PRN IV PER PROTOCOL Last administered on 08/03/21at 12:31; Start 08/03/21 at 12:15; Stop 08/04/21 at 07:38; Status DC Chlorhexidine Gluconate (Peridex) 15 ml BID MM ; Start 08/03/21 at 21:00; Status Cancel Glycerin/ Hypromellose/ Polyethylene (Artificial Tears) 1 drop PRN Q1HR PRN OU DRY EYE; Start 08/03/21 at 12:15; Stop 08/03/21 at 21:15; Status DC Dexmedetomidine HCl 400 mcg/ Sodium Chloride 100 ml @ 3.725 mls/ hr CONT PRN IV PER PROTOCOL; Start 08/03/21 at 12:15; Stop 08/03/21 at 21:15; Status DC Midazolam HCl (Versed) 5 mg PRN 1X PRN IVP VENT INDUCTION Last administered on 08/03/21at 14:12; Start 08/03/21 at 12:15; Stop 08/03/21 at 14:12; Status DC Etomidate (Amidate) 10 mg 1X ONCE IV Last administered on 08/03/21at 12:48; Start 08/03/21 at 12:45; Stop 08/03/21 at 12:46; Status DC Rocuronium [place] (Zemuron) 100 mg 1X ONCE IV Last administered on 08/03/21at 12:45; Start 08/03/21 at 12:45; Stop 08/03/21 at 12:46; Status DC Sodium Chloride 250 ml @ 250 mls/hr 1X ONCE IV Last administered on 08/03/21at 14:21; Start 08/03/21 at 14:30; Stop 08/03/21 at 15:29; Status DC Fentanyl Citrate 30 ml @ 2.5 mls/hr CONT PRN IV SEE PROTOCOL Last administered on 08/07/21at 02:46; Start 08/03/21 at 15:00 Midazolam HCl 100 ml @ 1 mls/hr CONT PRN IV SEE PROTOCOL Last administered on 08/07/21at 00:37; Start 08/03/21 at 15:00 Propofol 100 ml @ 2.235 mls/ hr CONT PRN IV PER PROTOCOL; Start 08/03/21 at 15:00 Vecuronium [place] (Norcuron Bolus) 6 mg PRN 1X PRN IV VENT INDUCTION; Start 08/03/21 at 15:00; Stop 08/04/21 at 14:59; Status DC Chlorhexidine Gluconate (Peridex) 15 ml BID MM ; Start 08/03/21 at 21:00; Stop 08/04/21 at 19:49; Status DC Glycerin/ Hypromellose/ Polyethylene (Artificial Tears) 1 drop PRN Q1HR PRN OU DRY EYE; Start 08/03/21 at 15:00 Dexmedetomidine HCl 400 mcg/ Sodium Chloride 100 ml @ 3.725 mls/ hr CONT PRN IV PER PROTOCOL; Start 08/03/21 at 15:00 Midazolam HCl (Versed) 5 mg PRN 1X PRN IVP VENT INDUCTION; Start 08/03/21 at 15:00; Stop 08/04/21 at 14:59; Status DC Sodium Chloride 500 ml @ 500 mls/hr 1X PRN PRN IV SEE COMMENTS; Start 08/03/21 at 15:00 Atropine Sulfate (ATROPINE 0.5mg SYRINGE) 0.5 mg PRN Q5MIN PRN IV SEE COMMENTS; Start 08/03/21 at 15:00 Famotidine (Pepcid Vial) 20 mg BID IVP Last administered on 08/03/21at 21:00; Start 08/03/21 at 21:00; Stop 08/04/21 at 07:59; Status DC Norepinephrine Bitartrate 8 mg/ Dextrose 258 ml @ 14.416 mls/ hr CONT PRN IV PER PROTOCOL Last administered on 08/04/21at 03:52; Start 08/03/21 at 15:00; Stop 08/04/21 at 05:29; Status DC Etomidate (Amidate) 20 mg STK-MED ONCE IV ; Start 08/03/21 at 17:04; Stop 08/03/21 at 17:04; Status DC Rocuronium [place] (Zemuron) 50 mg STK-MED ONCE .ROUTE ; Start 08/03/21 at 17:04; Stop 08/03/21 at 17:04; Status DC Acetaminophen (Tylenol Supp) 650 mg PRN Q6HRS PRN [place] MILD PAIN / TEMP > 100.3'F Last administered on 08/04/21at 20:25; Start 08/03/21 at 20:45 Acetaminophen (Tylenol) 650 mg PRN Q6HRS PRN PEG MILD PAIN / TEMP > 100.3'F; Start 08/03/21 at 20:45 Vasopressin 20 unit/Dextrose 101 ml @ 12 mls/hr CONT PRN IV SEE I/O RECORD Last administered on 08/07/21at 06:21; Start 08/04/21 at 03:45 Norepinephrine Bitartrate 32 mg/ Dextrose 250 ml @ 3.492 mls/ hr CONT PRN IV SEE I/O RECORD Last administered on 08/07/21at 02:12; Start 08/04/21 at 05:30 Phenylephrine HCl 50 mg/Sodium Chloride 255 ml @ 11.399 mls/ hr CONT PRN IV PER PROTOCOL Last administered on 08/05/21at 05:38; Start 08/04/21 at 06:30 Piperacillin Sod/ Tazobactam Sod 2.25 gm/Sodium Chloride 50 ml @ 100 mls/hr Q8HRS IV Last administered on 08/07/21at 09:53; Start 08/04/21 at 08:00 Vancomycin HCl (Vanco Per Pharmacy) 1 each PRN DAILY PRN MC SEE COMMENTS Last administered on 08/06/21at 11:08; Start 08/04/21 at 08:00; Stop 08/07/21 at 09:38; Status DC Famotidine (Pepcid Vial) 20 mg QODAY IVP Last administered on 08/06/21at 09:08; Start 08/04/21 at 09:00; Stop 08/06/21 at 14:25; Status DC Vancomycin HCl (Vanco Per Pharmacy) 1 each PRN DAILY PRN MC SEE COMMENTS; Start 08/04/21 at 08:00; Status UNV Piperacillin Sod/ Tazobactam Sod 2.25 gm/Sodium Chloride 50 ml @ 100 mls/hr Q6HRS IV ; Start 08/04/21 at 12:00; Status UNV Ciprofloxacin/ Dextrose 200 ml @ 200 mls/hr DAILY IV Last administered on 08/04/21at 11:38; Start 08/04/21 at 09:00; Stop 08/05/21 at 09:18; Status DC Lidocaine HCl (Xylocaine-Mpf 1% 5ml Vial) 5 ml 1X ONCE INJ ; Start 08/04/21 at 09:30; Stop 08/04/21 at 09:31; Status DC Lidocaine HCl (Buffered Lidocaine 1%) 3 ml STK-MED ONCE .ROUTE ; Start 08/04/21 at 12:33; Stop 08/04/21 at 12:33; Status DC Iohexol (Omnipaque 240 Mg/ml) 50 ml STK-MED ONCE .ROUTE ; Start 08/04/21 at 12:36; Stop 08/04/21 at 12:36; Status DC Lidocaine HCl (Buffered Lidocaine 1%) 3 ml 1X ONCE IJ Last administered on 08/04/21at 13:15; Start 08/04/21 at 13:30; Stop 08/04/21 at 13:31; Status DC Iohexol (Omnipaque 300 Mg/ml) 50 ml 1X ONCE IART ; Start 08/04/21 at 13:30; Stop 08/04/21 at 13:31; Status DC Vancomycin HCl (Vancomycin Random Level) 1 each 1X ONCE MC Last administered on 08/05/21at 06:14; Start 08/05/21 at 06:00; Stop 08/05/21 at 06:01; Status DC Albumin Human 100 ml @ 100 mls/hr PRN DAILY PRN IV SEE COMMENTS Last administered on 08/06/21at 14:15; Start 08/05/21 at 08:15 Sodium Chloride 1,000 ml @ 1,000 mls/hr Q1H PRN IV hypotension; Start 08/05/21 at 09:15; Stop 08/05/21 at 15:14; Status DC Sodium Chloride 1,000 ml @ 400 mls/hr Q2H30M PRN IV PATENCY; Start 08/05/21 at 09:15; Stop 08/05/21 at 21:14; Status DC Info (PHARMACY MONITORING -- do not chart) 1 each PRN DAILY PRN MC SEE COMMENTS; Start 08/05/21 at 09:15 Vancomycin HCl 500 mg/Sodium Chloride 100 ml @ 100 mls/hr QTUTHSA IV Last administered on 08/05/21at 15:59; Start 08/05/21 at 16:00; Stop 08/07/21 at 09:38; Status DC Heparin Sodium (Porcine) (Heparin Sodium) 5,000 unit Q12HR SQ Last administered on 08/07/21at 09:53; Start 08/05/21 at 11:00 Dextrose (Dextrose 50%-Water Syringe) 25 gm STK-MED ONCE IV ; Start 08/05/21 at 12:45; Stop 08/05/21 at 12:45; Status DC Dextrose (Dextrose 50%-Water Syringe) 12.5 gm PRN Q15MIN PRN IV SEE COMMENTS Last administered on 08/06/21at 17:47; Start 08/05/21 at 13:00 Magnesium Sulfate 50 ml @ 25 mls/hr 1X ONCE IV Last administered on 08/05/21at 16:59; Start 08/05/21 at 16:30; Stop 08/05/21 at 18:29; Status DC Iohexol (Omnipaque 300 Mg/ml) 60 ml 1X ONCE IV Last administered on 08/06/21at 09:30; Start 08/06/21 at 09:30; Stop 08/06/21 at 09:31; Status DC Info (CONTRAST GIVEN -- Rx MONITORING) 1 each PRN DAILY PRN MC SEE COMMENTS; Start 08/06/21 at 09:45; Stop 08/08/21 at 09:44 Aspirin (Aspirin Chewable) 81 mg DAILYWBKFT PO Last administered on 08/07/21at 09:54; Start 08/06/21 at 11:45 Atorvastatin Calcium (Lipitor) 20 mg QHS PO Last administered on 08/06/21at 21:15; Start 08/06/21 at 21:00 Sodium Chloride 1,000 ml @ 1,000 mls/hr Q1H PRN IV hypotension; Start 08/06/21 at 12:00; Stop 08/06/21 at 17:59; Status DC Sodium Chloride 1,000 ml @ 400 mls/hr Q2H30M PRN IV PATENCY; Start 08/06/21 at 12:00; Stop 08/06/21 at 23:59; Status DC Info (PHARMACY MONITORING -- do not chart) 1 each PRN DAILY PRN MC SEE COMMENTS; Start 08/06/21 at 12:00; Status UNV Info (Tpn Per Pharmacy) 1 each PRN DAILY PRN MC SEE COMMENTS Last administered on 08/07/21at 13:06; Start 08/06/21 at 12:30 Sodium Chloride 90 meq/Potassium Chloride 20 meq/ Calcium Gluconate 10 meq/ Multivitamins 10 ml/Zinc/Copper/ Manganese/ Selenium 1 ml/ Total Parenteral Nutrition/Amino Acids/Dextrose/ Fat Emulsion Intravenous 1,200 ml @ 50 mls/hr TPN CONT IV Last administered on 08/06/21at 21:58; Start 08/06/21 at 22:00; Stop 08/07/21 at 21:59 Pantoprazole Sodium (PROTONIX VIAL for IV PUSH) 40 mg DAILYAC IVP Last administered on 08/07/21at 09:54; Start 08/06/21 at 15:00 Sodium Chloride 1,000 ml @ 1,000 mls/hr Q1H PRN IV hypotension; Start 08/07/21 at 05:30; Stop 08/07/21 at 11:29; Status DC Albumin Human 200 ml @ 200 mls/hr 1X PRN PRN IV Hypotension; Start 08/07/21 at 05:30; Stop 08/07/21 at 11:29; Status DC Sodium Chloride (Normal Saline Flush) 10 ml 1X PRN PRN IV AP catheter pack; Start 08/07/21 at 05:30; Stop 08/08/21 at 05:29 Sodium Chloride (Normal Saline Flush) 10 ml 1X PRN PRN IV 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; Start 08/07/21 at 05:30; Stop 08/08/21 at 05:29 Sodium Chloride 1,000 ml @ 400 mls/hr Q2H30M PRN IV PATENCY; Start 08/07/21 at 05:30; Stop 08/07/21 at 17:29 Info (PHARMACY MONITORING -- do not chart) 1 each PRN DAILY PRN MC SEE COMMENTS; Start 08/07/21 at 05:30 Info (PHARMACY MONITORING -- do not chart) 1 each PRN DAILY PRN MC SEE COMMENTS; Start 08/07/21 at 05:30; Stop 08/07/21 at 05:28; Status DC Active Scripts Active Reported Tums (Calcium Carbonate) 200 Mg Tab.chew 400 Mg PO HS Sensipar (Cinacalcet Hcl) 60 Mg Tablet 1 Tab PO DAILY 30 Days Ferric Citrate 210 Mg Tablet 2 Tab PO TID 30 Days Lasix (Furosemide) 40 Mg Tablet 40 Mg PO BID Renagel (Sevelamer Hcl) 800 Mg Tablet 2 Tab PO TIDWMEALS Kapspargo Sprinkle (Metoprolol Succinate) 50 Mg Cap.spr.24 50 Mg PO DAILY Vitals/I & O Vital Sign - Last 24 Hours 08/06/21 08/06/21 08/06/21 08/06/21 13:51 14:00 15:00 16:00 Temp 98.2 98.2 Pulse 100 98 94 Resp 20 20 20 B/P (MAP) 100/46 116/48 154/58 Pulse Ox 100 100 100 100 O2 Delivery Ventilator Ventilator Ventilator Ventilator 08/06/21 08/06/21 08/06/21 08/06/21 16:14 16:15 16:30 16:44 Pulse 94 94 Resp 20 B/P (MAP) 124/52 130/52 Pulse Ox 100 99 O2 Delivery Ventilator Ventilator 08/06/21 08/06/21 08/06/21 08/06/21 16:45 17:00 17:14 18:00 Pulse 94 94 97 Resp 20 20 20 B/P (MAP) 128/52 122/52 114/48 Pulse Ox 100 100 100 O2 Delivery Ventilator Ventilator Ventilator 08/06/21 08/06/21 08/06/21 08/06/21 19:00 20:00 20:00 21:00 Temp 98.6 98.6 Pulse 92 90 92 Resp 20 23 22 B/P (MAP) 114/48 112/50 119/48 Pulse Ox 100 100 100 O2 Delivery Ventilator Mechanical Ventilator Ventilator Ventilator 08/06/21 08/06/21 08/06/21 08/07/21 21:00 22:00 23:00 00:01 Temp 99.7 99.7 Pulse 92 90 94 Resp 21 21 20 B/P (MAP) 138/51 120/80 116/48 Pulse Ox 100 100 100 100 O2 Delivery Ventilator Ventilator Ventilator Ventilator 08/07/21 08/07/21 08/07/21 08/07/21 01:00 01:00 02:00 02:46 Pulse 92 93 Resp 20 20 22 B/P (MAP) 120/48 112/48 Pulse Ox 100 100 100 100 O2 Delivery Ventilator Ventilator Ventilator O2 Flow Rate 15.0 08/07/21 08/07/21 08/07/21 08/07/21 03:00 04:00 05:00 05:00 Temp 100.2 100.2 Pulse 93 92 93 Resp 20 20 20 B/P (MAP) 121/51 149/48 121/51 Pulse Ox 100 100 100 100 O2 Delivery Ventilator Ventilator Ventilator Ventilator 08/07/21 08/07/21 08/07/21 08/07/21 06:00 07:00 08:00 08:00 Temp 99.7 99.3 99.7 99.3 Pulse 93 94 92 Resp 20 20 20 B/P (MAP) 109/45 114/46 110/46 Pulse Ox 100 100 100 O2 Delivery Ventilator Ventilator Ventilator Mechanical Ventilator 08/07/21 08/07/21 08/07/21 08/07/21 09:00 10:00 10:27 12:20 Temp 99.0 99.0 99.0 99.0 Pulse 90 90 Resp 20 20 B/P (MAP) 110/46 121/56 Pulse Ox 100 98 97 98 O2 Delivery Ventilator Ventilator Ventilator Ventilator Intake and Output 08/06/21 08/06/21 08/07/21 15:00 23:00 07:00 Intake Total 510 ml 18368.96 ml Output Total 800 ml 0 ml 0 ml Balance -290 ml 61803.96 ml 0 ml Justifications for Admission Other Justification SBO FAMILIA RODRIGUEZ MD Aug 07, 2021 13:39
--- NOTE | 2021-08-07 17:40 | NUR ---
PT VERSED OFF THIS MORNING AFTER DIALYSIS FOR SEDATION VACATION, PT STILL NOT WAKING UP, WILL CONTINUE TO LEAVE IT OFF TO ACHIEVE DESIRED RASS SCORE. PT WITH BLOODY ORAL SECRETIONS, ASKED RT TO SEE IF BITE BLOCK NEEDED TO BE ADJUSTED.
[2021-08-07] MEDS: ATORVASTATIN CALCIUM 20 MG TABLET PO SCH (21:24)
[2021-08-07] MEDS ORDERED: DEXTROSE 70% IV SCH ×3 (22:00)
[2021-08-07] MEDS ORDERED: TOTAL PARENTERAL NUTRITION IV SCH ×3 (22:00)
[2021-08-07] MEDS ORDERED: AMINO ACID IV SCH ×3 (22:00)
[2021-08-07] MEDS ORDERED: [UNRECOGNIZED DRUG - OTHER] IV SCH (22:00)
[2021-08-07] MEDS ORDERED: [UNRECOGNIZED DRUG - OTHER] IV SCH (22:00)
[2021-08-07] MEDS ORDERED: [UNRECOGNIZED DRUG - OTHER] IV SCH (22:00)
[2021-08-08] VITALS (28 sets, daily range): BP systolic 92–122; BP diastolic 50–84
[2021-08-08] MEDS: VASOPRESSIN - VASOSTRICT 20 UNIT in IV DEXTROSE 5% 100ML 100 ML IV PRN ×2 (02:05→22:04)
--- NOTE | 2021-08-08 04:56 | PDOC ---
PULMONARY PROGRESS NOTES DATE: 08/08/21 TIME: 04:55 Subjective on vent Patient sedated on fentanyl , on norepinephrine, 35% FiO2 5 of PEEP had HD 08/07 Vitals Vital Signs Date Time Temp Pulse Resp B/P (MAP) Pulse Ox O2 Delivery O2 Flow Rate FiO2 08/08/21 02:26 100 Ventilator 08/08/21 01:00 104 20 118/62 08/08/21 00:01 99.9 99.9 Comments on vent sedated ros unable to obtain HEENT: Other (nc at perrl nose clear orally intubated neck no lad no thyromegaly) Lungs: Crackles Cardiovascular: S1, S2 Abdomen: Soft, Non-tender Extremities: No Edema Skin: No Rashes Labs Laboratory Tests Test 08/06/21 06:00 08/06/21 06:04 08/06/21 08:50 08/06/21 11:41 White Blood Count 15.2 x10^3/uL (4.0-11.0) Red Blood Count 3.40 x10^6/uL (4.30-5.70) Hemoglobin 10.8 g/dL (13.0-17.5) Hematocrit 33.1 % (39.0-53.0) Mean Corpuscular Volume 97 fL (79-100) Mean Corpuscular Hemoglobin 32 pg (25-35) Mean Corpuscular Hemoglobin Concent 33 g/dL (31-37) Red Cell Distribution Width 17.3 % (11.5-14.5) Platelet Count 107 x10^3/uL (140-400) Sodium Level 132 mmol/L (136-145) Potassium Level 4.5 mmol/L (3.5-5.1) Chloride Level 97 mmol/L (98-107) Carbon Dioxide Level 23 mmol/L (21-32) Anion Gap 12 (6-14) Blood Urea Nitrogen 43 mg/dL (8-26) Creatinine 5.8 mg/dL (0.7-1.3) Estimated GFR (Cockcroft-Gault) 10.1 BUN/Creatinine Ratio 7 (6-20) Glucose Level 75 mg/dL (70-99) Calcium Level 7.2 mg/dL (8.5-10.1) Phosphorus Level 5.5 mg/dL (2.6-4.7) Magnesium Level 2.6 mg/dL (1.8-2.4) Total Bilirubin 1.0 mg/dL (0.2-1.0) Aspartate Amino Transf (AST/SGOT) 158 U/L (15-37) Alanine Aminotransferase (ALT/SGPT) 91 U/L (16-63) Alkaline Phosphatase 106 U/L (46-116) Total Protein 7.2 g/dL (6.4-8.2) Albumin 2.7 g/dL (3.4-5.0) Albumin/Globulin Ratio 0.6 (1.0-1.7) Glucose (Fingerstick) 78 mg/dL (70-99) 71 mg/dL (70-99) O2 Saturation 98 % (92-99) Arterial Blood pH 7.41 (7.35-7.45) Arterial Blood pCO2 at Patient Temp 39 mmHg (35-46) Arterial Blood pO2 at Patient Temp 134 mmHg (75-108) Arterial Blood HCO3 25 mmol/L (21-28) Arterial Blood Base Excess 0 mmol/L (-3-3) FiO2 35 Test 08/06/21 14:57 08/06/21 17:42 08/06/21 17:59 08/07/21 00:20 Glucose (Fingerstick) 77 mg/dL (70-99) 36 mg/dL (70-99) 81 mg/dL (70-99) 124 mg/dL (70-99) Test 08/07/21 06:00 08/07/21 06:15 08/07/21 08:00 White Blood Count 8.9 x10^3/uL (4.0-11.0) Red Blood Count 3.18 x10^6/uL (4.30-5.70) Hemoglobin 10.2 g/dL (13.0-17.5) Hematocrit 30.4 % (39.0-53.0) Mean Corpuscular Volume 96 fL (79-100) Mean Corpuscular Hemoglobin 32 pg (25-35) Mean Corpuscular Hemoglobin Concent 33 g/dL (31-37) Red Cell Distribution Width 16.8 % (11.5-14.5) Platelet Count 80 x10^3/uL (140-400) Neutrophils (%) (Auto) 78 % (31-73) Lymphocytes (%) (Auto) 7 % (24-48) Monocytes (%) (Auto) 11 % (0-9) Eosinophils (%) (Auto) 4 % (0-3) Basophils (%) (Auto) 0 % (0-3) Neutrophils # (Auto) 6.9 x10^3/uL (1.8-7.7) Lymphocytes # (Auto) 0.6 x10^3/uL (1.0-4.8) Monocytes # (Auto) 0.9 x10^3/uL (0.0-1.1) Eosinophils # (Auto) 0.3 x10^3/uL (0.0-0.7) Basophils # (Auto) 0.0 x10^3/uL (0.0-0.2) Sodium Level 136 mmol/L (136-145) Potassium Level 3.9 mmol/L (3.5-5.1) Chloride Level 99 mmol/L (98-107) Carbon Dioxide Level 25 mmol/L (21-32) Anion Gap 12 (6-14) Blood Urea Nitrogen 43 mg/dL (8-26) Creatinine 5.1 mg/dL (0.7-1.3) Estimated GFR (Cockcroft-Gault) 11.8 Glucose Level 150 mg/dL (70-99) Calcium Level 8.2 mg/dL (8.5-10.1) Phosphorus Level 3.2 mg/dL (2.6-4.7) Magnesium Level 2.6 mg/dL (1.8-2.4) Glucose (Fingerstick) 140 mg/dL (70-99) O2 Saturation 98 % (92-99) Arterial Blood pH 7.50 (7.35-7.45) Arterial Blood pCO2 at Patient Temp 35 mmHg (35-46) Arterial Blood pO2 at Patient Temp 124 mmHg (75-108) Arterial Blood HCO3 27 mmol/L (21-28) Arterial Blood Base Excess 4 mmol/L (-3-3) FiO2 35 Laboratory Tests Test 08/07/21 06:00 08/07/21 06:15 08/07/21 08:00 White Blood Count 8.9 x10^3/uL (4.0-11.0) Red Blood Count 3.18 x10^6/uL (4.30-5.70) Hemoglobin 10.2 g/dL (13.0-17.5) Hematocrit 30.4 % (39.0-53.0) Mean Corpuscular Volume 96 fL (79-100) Mean Corpuscular Hemoglobin 32 pg (25-35) Mean Corpuscular Hemoglobin Concent 33 g/dL (31-37) Red Cell Distribution Width 16.8 % (11.5-14.5) Platelet Count 80 x10^3/uL (140-400) Neutrophils (%) (Auto) 78 % (31-73) Lymphocytes (%) (Auto) 7 % (24-48) Monocytes (%) (Auto) 11 % (0-9) Eosinophils (%) (Auto) 4 % (0-3) Basophils (%) (Auto) 0 % (0-3) Neutrophils # (Auto) 6.9 x10^3/uL (1.8-7.7) Lymphocytes # (Auto) 0.6 x10^3/uL (1.0-4.8) Monocytes # (Auto) 0.9 x10^3/uL (0.0-1.1) Eosinophils # (Auto) 0.3 x10^3/uL (0.0-0.7) Basophils # (Auto) 0.0 x10^3/uL (0.0-0.2) Sodium Level 136 mmol/L (136-145) Potassium Level 3.9 mmol/L (3.5-5.1) Chloride Level 99 mmol/L (98-107) Carbon Dioxide Level 25 mmol/L (21-32) Anion Gap 12 (6-14) Blood Urea Nitrogen 43 mg/dL (8-26) Creatinine 5.1 mg/dL (0.7-1.3) Estimated GFR (Cockcroft-Gault) 11.8 Glucose Level 150 mg/dL (70-99) Calcium Level 8.2 mg/dL (8.5-10.1) Phosphorus Level 3.2 mg/dL (2.6-4.7) Magnesium Level 2.6 mg/dL (1.8-2.4) Glucose (Fingerstick) 140 mg/dL (70-99) O2 Saturation 98 % (92-99) Arterial Blood pH 7.50 (7.35-7.45) Arterial Blood pCO2 at Patient Temp 35 mmHg (35-46) Arterial Blood pO2 at Patient Temp 124 mmHg (75-108) Arterial Blood HCO3 27 mmol/L (21-28) Arterial Blood Base Excess 4 mmol/L (-3-3) FiO2 35 Medications Active Scripts Medications Dose Route/Sig Max Daily Dose Days Date Category Tums (Calcium Carbonate) 200 Mg Tab.chew 400 Mg PO HS 04/19/21 Reported Sensipar (Cinacalcet Hcl) 60 Mg Tablet 1 Tab PO DAILY 30 04/19/21 Reported Ferric Citrate 210 Mg Tablet 2 Tab PO TID 30 04/19/21 Reported Lasix (Furosemide) 40 Mg Tablet 40 Mg PO BID 04/19/21 Reported Renagel (Sevelamer Hcl) 800 Mg Tablet 2 Tab PO TIDWMEALS 01/18/21 Reported Kapspargo Sprinkle (Metoprolol Succinate) 50 Mg Cap.spr.24 50 Mg PO DAILY 01/18/[address] chest reviewed dated 08/06/2021. Small basal pleural effusion with associated atelectasis. No definite consolidation seen Impression . IMPRESSION: 1. Acute hypoxemic respiratory failure, multifactorial. 2. Septic shock./Urosepsis 3. Fever related to above. 4. SARS-CoV-2 testing negative. 5. End-stage renal disease, on hemodialysis. 6. Possible stroke. 7. mssa bactremia Other comorbidities including end-stage renal disease, hypertension, chronic obstructive pulmonary disease, gastroesophageal reflux, ischemic cardiomyopathy. Plan . Updated 08/08 Continue vent support assist-control mode. setting reviewed repeat bcx neg abx per id vasopressor to keep map 65 complicated urinary tract infection with septic shock. mssa bactremia Follow ID recommendations Hemodialysis per nephrology Follow blood cultures DVT GI prophylaxis CT chest reviewed. No focal consolidation. Small basal effusion with associated atelectasis. discussed w rn rt Updated 08/07 Continue present assist-control mode. setting reviewed vasopressor to keep map 65 complicated urinary tract infection with septic shock. Follow ID recommendations Hemodialysis per nephrology Follow blood cultures DVT GI prophylaxis CT chest reviewed. No focal consolidation. Small basal effusion with associated atelectasis. discussed w rn rt Updated 08/06 Continue present assist-control mode. continue present vasopressor support. complicated urinary tract infection with septic shock. Follow ID recommendations Hemodialysis per nephrology Continue pressors for map above 60 Follow blood cultures DVT GI prophylaxis CT chest reviewed. No focal consolidation. Small basal effusion with associated atelectasis. CCT 30 minutes Updated 08/05 PLAN: 1. Continue current support with mechanical ventilation. 2. Adjust minute ventilation to normalize pH. 3. Hemodialysis per Nephrology. 4. Empiric antibiotics. 5. Follow blood cultures. 6. Nutritional support. 7. Replace magnesium. I do appreciate the privilege in sharing in the patient's care. Critical care time of 55 minutes, reviewing the current documentation, examining the patient, reviewing the imaging studies, labs, formulating the impression and plan. SHAMEKA YOON MD Aug 08, 2021 04:56
[2021-08-08] MEDS: PIPERACILLIN/TAZOBACTAM 2.25 GM in IV NORMAL SALINE 50ML 50 ML IV SCH ×3 (05:56→22:03)
[2021-08-08] MEDS: ASPIRIN CHEWABLE 81 MG TABLET. PO SCH (09:04)
[2021-08-08] MEDS: PANTOPRAZOLE IV PUSH 40 MG VIAL. IVP SCH (09:04)
[2021-08-08] MEDS: HEPARIN for SUB-Q USE 5,000 UNIT/ML VIAL. SQ SCH ×2 (09:05→21:59)
[2021-08-08 09:06] LABS: BASE EXCESS ABG 1 mmol/L (-3-3); HCO3 ABG 25 mmol/L (21-28); PCO2 ABG 37 mmHg (35-46); PO2 ABG 150 mmHg (75-108); SAT O2 ABG 99 % (92-99)
[2021-08-08 09:08] LABS: FIO2 ABG 35
[2021-08-08 11:19] LABS: CALCIUM 8.8 mg/dL (8.5-10.1); CREATININE 4.8 mg/dL (0.7-1.3); GFR 12.6; MAGNESIUM 2.4 mg/dL (1.8-2.4); POTASSIUM 4.1 mmol/L (3.5-5.1)
--- NOTE | 2021-08-08 12:38 | PDOC ---
PROGRESS NOTES Date of Service DATE: 08/08/21 TIME: 12:36 Subjective Subjective Patient seen and examined Objective Objective Vital Signs Date Time Temp Pulse Resp B/P (MAP) Pulse Ox O2 Delivery O2 Flow Rate FiO2 08/08/21 11:54 100 Ventilator 08/08/21 09:00 88 21 106/56 08/08/21 08:00 99.5 99.5 08/08/21 05:55 15.0 Intake and Output 08/08/21 07:00 Intake Total 923.0 ml Output Total 0 ml Balance 923.0 ml Intake IV Total 923.0 ml Output Urine Total 0 ml Physical Exam Abdomen: Normal bowel sounds Heart: Regular rate General: Other (Intubated) Lungs: Other (Mildly decreased breath sounds) Assessment Assessment Problems Medical Problems: (1) Hypoxia Status: Acute (2) Respiratory failure Status: Acute (3) Sepsis Status: Acute (4) Stroke Status: Acute (5) UTI (urinary tract infection) Status: Acute Encephalopathy, possible stroke with left-sided weakness Acute respiratory failure; multifactorial. Remains on a ventilator and is fol lowed by pulmonary. Leukocytosis, Sepsis; BC + GPC Septic shock; requiring pressor support. WBC improved today. UTI with suprapubic cath ESRD on HD, hyperkalemia. Morning potassium 4.1, creatinine 4.8. Arrhythmia; brief burst of NSVT on tele 2 days ago. Acute on chronic diastolic CHF; Echo 04/13 with preserved LV systolic function. LHC 04/13 with normal coronaries Valvular disease: mod to severe SSS s/p leadless PPM Moderate secondary pulmonary HTN Comment Review of Relevant I have reviewed the following items allyson (where applicable) has been applied. Labs Laboratory Tests Test 08/06/21 14:57 08/06/21 17:42 08/06/21 17:59 08/07/21 00:20 Glucose (Fingerstick) 77 mg/dL (70-99) 36 mg/dL (70-99) 81 mg/dL (70-99) 124 mg/dL (70-99) Test 08/07/21 06:00 08/07/21 06:15 08/07/21 08:00 08/08/21 09:00 White Blood Count 8.9 x10^3/uL (4.0-11.0) Red Blood Count 3.18 x10^6/uL (4.30-5.70) Hemoglobin 10.2 g/dL (13.0-17.5) Hematocrit 30.4 % (39.0-53.0) Mean Corpuscular Volume 96 fL (79-100) Mean Corpuscular Hemoglobin 32 pg (25-35) Mean Corpuscular Hemoglobin Concent 33 g/dL (31-37) Red Cell Distribution Width 16.8 % (11.5-14.5) Platelet Count 80 x10^3/uL (140-400) Neutrophils (%) (Auto) 78 % (31-73) Lymphocytes (%) (Auto) 7 % (24-48) Monocytes (%) (Auto) 11 % (0-9) Eosinophils (%) (Auto) 4 % (0-3) Basophils (%) (Auto) 0 % (0-3) Neutrophils # (Auto) 6.9 x10^3/uL (1.8-7.7) Lymphocytes # (Auto) 0.6 x10^3/uL (1.0-4.8) Monocytes # (Auto) 0.9 x10^3/uL (0.0-1.1) Eosinophils # (Auto) 0.3 x10^3/uL (0.0-0.7) Basophils # (Auto) 0.0 x10^3/uL (0.0-0.2) Sodium Level 136 mmol/L (136-145) Potassium Level 3.9 mmol/L (3.5-5.1) Chloride Level 99 mmol/L (98-107) Carbon Dioxide Level 25 mmol/L (21-32) Anion Gap 12 (6-14) Blood Urea Nitrogen 43 mg/dL (8-26) Creatinine 5.1 mg/dL (0.7-1.3) Estimated GFR (Cockcroft-Gault) 11.8 Glucose Level 150 mg/dL (70-99) Calcium Level 8.2 mg/dL (8.5-10.1) Phosphorus Level 3.2 mg/dL (2.6-4.7) Magnesium Level 2.6 mg/dL (1.8-2.4) Glucose (Fingerstick) 140 mg/dL (70-99) O2 Saturation 98 % (92-99) 99 % (92-99) Arterial Blood pH 7.50 (7.35-7.45) 7.45 (7.35-7.45) Arterial Blood pCO2 at Patient Temp 35 mmHg (35-46) 37 mmHg (35-46) Arterial Blood pO2 at Patient Temp 124 mmHg (75-108) 150 mmHg (75-108) Arterial Blood HCO3 27 mmol/L (21-28) 25 mmol/L (21-28) Arterial Blood Base Excess 4 mmol/L (-3-3) 1 mmol/L (-3-3) FiO2 35 35 Test 08/08/21 11:01 Sodium Level 136 mmol/L (136-145) Potassium Level 4.1 mmol/L (3.5-5.1) Chloride Level 101 mmol/L (98-107) Carbon Dioxide Level 27 mmol/L (21-32) Anion Gap 8 (6-14) Blood Urea Nitrogen 51 mg/dL (8-26) Creatinine 4.8 mg/dL (0.7-1.3) Estimated GFR (Cockcroft-Gault) 12.6 Glucose Level 136 mg/dL (70-99) Calcium Level 8.8 mg/dL (8.5-10.1) Phosphorus Level 2.0 mg/dL (2.6-4.7) Magnesium Level 2.4 mg/dL (1.8-2.4) Laboratory Tests Test 08/08/21 09:00 08/08/21 11:01 O2 Saturation 99 % (92-99) Arterial Blood pH 7.45 (7.35-7.45) Arterial Blood pCO2 at Patient Temp 37 mmHg (35-46) Arterial Blood pO2 at Patient Temp 150 mmHg (75-108) Arterial Blood HCO3 25 mmol/L (21-28) Arterial Blood Base Excess 1 mmol/L (-3-3) FiO2 35 Sodium Level 136 mmol/L (136-145) Potassium Level 4.1 mmol/L (3.5-5.1) Chloride Level 101 mmol/L (98-107) Carbon Dioxide Level 27 mmol/L (21-32) Anion Gap 8 (6-14) Blood Urea Nitrogen 51 mg/dL (8-26) Creatinine 4.8 mg/dL (0.7-1.3) Estimated GFR (Cockcroft-Gault) 12.6 Glucose Level 136 mg/dL (70-99) Calcium Level 8.8 mg/dL (8.5-10.1) Phosphorus Level 2.0 mg/dL (2.6-4.7) Magnesium Level 2.4 mg/dL (1.8-2.4) Microbiology 08/06/21 Blood Culture - Preliminary, Resulted NO GROWTH AFTER 2 DAYS 08/03/21 Urine Culture - Final, Complete Medications Current Medications Sodium Chloride 1,000 ml @ 1,000 mls/hr 1X ONCE IV Last administered on 08/03/21at 11:26; Start 08/03/21 at 11:15; Stop 08/03/21 at 12:14; Status DC Piperacillin Sod/ Tazobactam Sod 4.5 gm/Sodium Chloride 100 ml @ 200 mls/hr 1X ONCE IV Last administered on 08/03/21at 11:26; Start 08/03/21 at 11:15; Stop 08/03/21 at 11:44; Status DC Vancomycin HCl 1.5 gm/Sodium Chloride 500 ml @ 250 mls/hr 1X ONCE IV Last administered on 08/03/21at 12:00; Start 08/03/21 at 12:00; Stop 08/03/21 at 13:59; Status DC Iohexol (Omnipaque 300 Mg/ml) 75 ml 1X ONCE IV Last administered on 08/03/21at 11:29; Start 08/03/21 at 11:15; Stop 08/03/21 at 11:16; Status DC Info (CONTRAST GIVEN -- Rx MONITORING) 1 each PRN DAILY PRN MC SEE COMMENTS; Start 08/03/21 at 11:15; Stop 08/05/21 at 11:14; Status DC Fentanyl Citrate 30 ml @ 2.5 mls/hr CONT PRN IV SEE PROTOCOL; Start 08/03/21 at 12:15; Status Cancel Propofol 100 ml @ 2.235 mls/ hr CONT PRN IV PER PROTOCOL Last administered on 08/03/21at 12:31; Start 08/03/21 at 12:15; Stop 08/04/21 at 07:38; Status DC Chlorhexidine Gluconate (Peridex) 15 ml BID MM ; Start 08/03/21 at 21:00; Status Cancel Glycerin/ Hypromellose/ Polyethylene (Artificial Tears) 1 drop PRN Q1HR PRN OU DRY EYE; Start 08/03/21 at 12:15; Stop 08/03/21 at 21:15; Status DC Dexmedetomidine HCl 400 mcg/ Sodium Chloride 100 ml @ 3.725 mls/ hr CONT PRN IV PER PROTOCOL; Start 08/03/21 at 12:15; Stop 08/03/21 at 21:15; Status DC Midazolam HCl (Versed) 5 mg PRN 1X PRN IVP VENT INDUCTION Last administered on 08/03/21at 14:12; Start 08/03/21 at 12:15; Stop 08/03/21 at 14:12; Status DC Etomidate (Amidate) 10 mg 1X ONCE IV Last administered on 08/03/21at 12:48; Start 08/03/21 at 12:45; Stop 08/03/21 at 12:46; Status DC Rocuronium Wall (Zemuron) 100 mg 1X ONCE IV Last administered on 08/03/21at 12:45; Start 08/03/21 at 12:45; Stop 08/03/21 at 12:46; Status DC Sodium Chloride 250 ml @ 250 mls/hr 1X ONCE IV Last administered on 08/03/21at 14:21; Start 08/03/21 at 14:30; Stop 08/03/21 at 15:29; Status DC Fentanyl Citrate 30 ml @ 2.5 mls/hr CONT PRN IV SEE PROTOCOL Last administered on 08/08/21at 05:25; Start 08/03/21 at 15:00 Midazolam HCl 100 ml @ 1 mls/hr CONT PRN IV SEE PROTOCOL Last administered on at 00:37; Start 08/03/21 at 15:00 Propofol 100 ml @ 2.235 mls/ hr CONT PRN IV PER PROTOCOL; Start 08/03/21 at 15:00 Vecuronium Wall (Norcuron Bolus) 6 mg PRN 1X PRN IV VENT INDUCTION; Start 08/03/21 at 15:00; Stop 08/04/21 at 14:59; Status DC Chlorhexidine Gluconate (Peridex) 15 ml BID MM ; Start 08/03/21 at 21:00; Stop 08/04/21 at 19:49; Status DC Glycerin/ Hypromellose/ Polyethylene (Artificial Tears) 1 drop PRN Q1HR PRN OU DRY EYE; Start 08/03/21 at 15:00 Dexmedetomidine HCl 400 mcg/ Sodium Chloride 100 ml @ 3.725 mls/ hr CONT PRN IV PER PROTOCOL; Start 08/03/21 at 15:00 Midazolam HCl (Versed) 5 mg PRN 1X PRN IVP VENT INDUCTION; Start 08/03/21 at 15:00; Stop 08/04/21 at 14:59; Status DC Sodium Chloride 500 ml @ 500 mls/hr 1X PRN PRN IV SEE COMMENTS; Start 08/03/21 at 15:00 Atropine Sulfate (ATROPINE 0.5mg SYRINGE) 0.5 mg PRN Q5MIN PRN IV SEE COMMENTS; Start 08/03/21 at 15:00 Famotidine (Pepcid Vial) 20 mg BID IVP Last administered on 08/03/21at 21:00; Start 08/03/21 at 21:00; Stop 08/04/21 at 07:59; Status DC Norepinephrine Bitartrate 8 mg/ Dextrose 258 ml @ 14.416 mls/ hr CONT PRN IV PER PROTOCOL Last administered on 08/04/21at 03:52; Start 08/03/21 at 15:00; Stop 08/04/21 at 05:29; Status DC Etomidate (Amidate) 20 mg STK-MED ONCE IV ; Start 08/03/21 at 17:04; Stop 08/03/21 at 17:04; Status DC Rocuronium Wall (Zemuron) 50 mg STK-MED ONCE .ROUTE ; Start 08/03/21 at 17:04; Stop 08/03/21 at 17:04; Status DC Acetaminophen (Tylenol Supp) 650 mg PRN Q6HRS PRN [place] MILD PAIN / TEMP > 100.3'F Last administered on 08/04/21at 20:25; Start 08/03/21 at 20:45 Acetaminophen (Tylenol) 650 mg PRN Q6HRS PRN PEG MILD PAIN / TEMP > 100.3'F; Start 08/03/21 at 20:45 Vasopressin 20 unit/Dextrose 101 ml @ 12 mls/hr CONT PRN IV SEE I/O RECORD Last administered on 08/08/21at 02:05; Start 08/04/21 at 03:45 Norepinephrine Bitartrate 32 mg/ Dextrose 250 ml @ 3.492 mls/ hr CONT PRN IV SEE I/O RECORD Last administered on 08/07/21at 02:12; Start 08/04/21 at 05:30 Phenylephrine HCl 50 mg/Sodium Chloride 255 ml @ 11.399 mls/ hr CONT PRN IV PER PROTOCOL Last administered on 08/05/21at 05:38; Start 08/04/21 at 06:30 Piperacillin Sod/ Tazobactam Sod 2.25 gm/Sodium Chloride 50 ml @ 100 mls/hr Q8HRS IV Last administered on 08/08/21at 05:56; Start 08/04/21 at 08:00 Vancomycin HCl (Vanco Per Pharmacy) 1 each PRN DAILY PRN MC SEE COMMENTS Last administered on 08/06/21at 11:08; Start 08/04/21 at 08:00; Stop 08/07/21 at 09:38; Status DC Famotidine (Pepcid Vial) 20 mg QODAY IVP Last administered on 08/06/21at 09:08; Start 08/04/21 at 09:00; Stop 08/06/21 at 14:25; Status DC Vancomycin HCl (Vanco Per Pharmacy) 1 each PRN DAILY PRN MC SEE COMMENTS; Start 08/04/21 at 08:00; Status UNV Piperacillin Sod/ Tazobactam Sod 2.25 gm/Sodium Chloride 50 ml @ 100 mls/hr Q6HRS IV ; Start 08/04/21 at 12:00; Status UNV Ciprofloxacin/ Dextrose 200 ml @ 200 mls/hr DAILY IV Last administered on 08/04/21at 11:38; Start 08/04/21 at 09:00; Stop 08/05/21 at 09:18; Status DC Lidocaine HCl (Xylocaine-Mpf 1% 5ml Vial) 5 ml 1X ONCE INJ ; Start 08/04/21 at 09:30; Stop 08/04/21 at 09:31; Status DC Lidocaine HCl (Buffered Lidocaine 1%) 3 ml STK-MED ONCE .ROUTE ; Start 08/04/21 at 12:33; Stop 08/04/21 at 12:33; Status DC Iohexol (Omnipaque 240 Mg/ml) 50 ml STK-MED ONCE .ROUTE ; Start 08/04/21 at 12:36; Stop 08/04/21 at 12:36; Status DC Lidocaine HCl (Buffered Lidocaine 1%) 3 ml 1X ONCE IJ Last administered on 08/04/21at 13:15; Start 08/04/21 at 13:30; Stop 08/04/21 at 13:31; Status DC Iohexol (Omnipaque 300 Mg/ml) 50 ml 1X ONCE IART ; Start 08/04/21 at 13:30; Stop 08/04/21 at 13:31; Status DC Vancomycin HCl (Vancomycin Random Level) 1 each 1X ONCE MC Last administered on 08/05/21at 06:14; Start 08/05/21 at 06:00; Stop 08/05/21 at 06:01; Status DC Albumin Human 100 ml @ 100 mls/hr PRN DAILY PRN IV SEE COMMENTS Last administered on 08/06/21at 14:15; Start 08/05/21 at 08:15 Sodium Chloride 1,000 ml @ 1,000 mls/hr Q1H PRN IV hypotension; Start 08/05/21 at 09:15; Stop 08/05/21 at 15:14; Status DC Sodium Chloride 1,000 ml @ 400 mls/hr Q2H30M PRN IV PATENCY; Start 08/05/21 at 09:15; Stop 08/05/21 at 21:14; Status DC Info (PHARMACY MONITORING -- do not chart) 1 each PRN DAILY PRN MC SEE COMMENTS; Start 08/05/21 at 09:15 Vancomycin HCl 500 mg/Sodium Chloride 100 ml @ 100 mls/hr QTUTHSA IV Last administered on 08/05/21at 15:59; Start 08/05/21 at 16:00; Stop 08/07/21 at 09:38; Status DC Heparin Sodium (Porcine) (Heparin Sodium) 5,000 unit Q12HR SQ Last administered on 08/08/21at 09:05; Start 08/05/21 at 11:00 Dextrose (Dextrose 50%-Water Syringe) 25 gm STK-MED ONCE IV ; Start 08/05/21 at 12:45; Stop 08/05/21 at 12:45; Status DC Dextrose (Dextrose 50%-Water Syringe) 12.5 gm PRN Q15MIN PRN IV SEE COMMENTS Last administered on 08/06/21at 17:47; Start 08/05/21 at 13:00 Magnesium Sulfate 50 ml @ 25 mls/hr 1X ONCE IV Last administered on 08/05/21at 16:59; Start 08/05/21 at 16:30; Stop 08/05/21 at 18:29; Status DC Iohexol (Omnipaque 300 Mg/ml) 60 ml 1X ONCE IV Last administered on 08/06/21at 09:30; Start 08/06/21 at 09:30; Stop 08/06/21 at 09:31; Status DC Info (CONTRAST GIVEN -- Rx MONITORING) 1 each PRN DAILY PRN MC SEE COMMENTS; Start 08/06/21 at 09:45; Stop 08/08/21 at 09:44; Status DC Aspirin (Aspirin Chewable) 81 mg DAILYWBKFT PO Last administered on 08/08/21at 09:04; Start 08/06/21 at 11:45 Atorvastatin Calcium (Lipitor) 20 mg QHS PO Last administered on 08/07/21at 21:24; Start 08/06/21 at 21:00 Sodium Chloride 1,000 ml @ 1,000 mls/hr Q1H PRN IV hypotension; Start 08/06/21 at 12:00; Stop 08/06/21 at 17:59; Status DC Sodium Chloride 1,000 ml @ 400 mls/hr Q2H30M PRN IV PATENCY; Start 08/06/21 at 12:00; Stop 08/06/21 at 23:59; Status DC Info (PHARMACY MONITORING -- do not chart) 1 each PRN DAILY PRN MC SEE COMMENTS; Start 08/06/21 at 12:00; Status UNV Info (Tpn Per Pharmacy) 1 each PRN DAILY PRN MC SEE COMMENTS Last administered on 08/07/21at 13:06; Start 08/06/21 at 12:30 Sodium Chloride 90 meq/Potassium Chloride 20 meq/ Calcium Gluconate 10 meq/ Multivitamins 10 ml/Zinc/Copper/ Manganese/ Selenium 1 ml/ Total Parenteral Nutrition/Amino Acids/Dextrose/ Fat Emulsion Intravenous 1,200 ml @ 50 mls/hr TPN CONT IV Last administered on 08/06/21at 21:58; Start 08/06/21 at 22:00; Stop 08/07/21 at 21:59; Status DC Pantoprazole Sodium (PROTONIX VIAL for IV PUSH) 40 mg DAILYAC IVP Last administered on 08/08/21at 09:04; Start 08/06/21 at 15:00 Sodium Chloride 1,000 ml @ 1,000 mls/hr Q1H PRN IV hypotension; Start 08/07/21 at 05:30; Stop 08/07/21 at 11:29; Status DC Albumin Human 200 ml @ 200 mls/hr 1X PRN PRN IV Hypotension; Start 08/07/21 at 05:30; Stop 08/07/21 at 11:29; Status DC Sodium Chloride (Normal Saline Flush) 10 ml 1X PRN PRN IV AP catheter pack; Start 08/07/21 at 05:30; Stop 08/08/21 at 05:29; Status DC Sodium Chloride (Normal Saline Flush) 10 ml 1X PRN PRN IV [employer]INE[employer] catheter pack; Start 08/07/21 at 05:30; Stop 08/08/21 at 05:29; Status DC Sodium Chloride 1,000 ml @ 400 mls/hr Q2H30M PRN IV PATENCY; Start 08/07/21 at 05:30; Stop 08/07/21 at 17:29; Status DC Info (PHARMACY MONITORING -- do not chart) 1 each PRN DAILY PRN MC SEE COMMENTS ; Start 08/07/21 at 05:30 Info (PHARMACY MONITORING -- do not chart) 1 each PRN DAILY PRN MC SEE COMMENTS; Start 08/07/21 at 05:30; Stop 08/07/21 at 05:28; Status DC Sodium Chloride 90 meq/Potassium Chloride 20 meq/ Calcium Gluconate 10 meq/ Multivitamins 10 ml/Zinc/Copper/ Manganese/ Selenium 1 ml/ Total Parenteral Nutrition/Amino Acids/Dextrose 1,200 ml @ 50 mls/hr TPN CONT IV ; Start 08/07/21 at 22:00; Stop 08/07/21 at 14:00; Status DC Sodium Chloride 90 meq/Potassium Chloride 20 meq/ Calcium Gluconate 10 meq/ Multivitamins 10 ml/Zinc/Copper/ Manganese/ Selenium 1 ml/ Total Parenteral Nutrition/Amino Acids/Dextrose 1,025 ml @ 42.708 mls/ hr TPN CONT IV ; Start 08/07/21 at 22:00; Stop 08/07/21 at 14:02; Status DC Sodium Chloride 90 meq/Potassium Chloride 20 meq/ Calcium Gluconate 10 meq/ Multivitamins 10 ml/Zinc/Copper/ Manganese/ Selenium 1 ml/ Total Parenteral Nutrition/Amino Acids/Dextrose 1,200 ml @ 50 mls/hr TPN CONT IV Last administered on 08/07/21at 21:26; Start 08/07/21 at 22:00; Stop 08/08/21 at 21:59 Active Scripts Active Reported Tums (Calcium Carbonate) 200 Mg Tab.chew 400 Mg PO HS Sensipar (Cinacalcet Hcl) 60 Mg Tablet 1 Tab PO DAILY 30 Days Ferric Citrate 210 Mg Tablet 2 Tab PO TID 30 Days Lasix (Furosemide) 40 Mg Tablet 40 Mg PO BID Renagel (Sevelamer Hcl) 800 Mg Tablet 2 Tab PO TIDWMEALS Kapspargo Sprinkle (Metoprolol Succinate) 50 Mg Cap.spr.24 50 Mg PO DAILY Vitals/I & O Vital Sign - Last 24 Hours 08/07/21 08/07/21 08/07/21 08/07/21 13:00 13:42 14:00 14:15 Temp 99.4 99.4 100.4 99.4 99.4 100.4 Pulse 94 98 98 Resp B/P (MAP) 110/56 117/57 116/56 Pulse Ox 97 97 98 100 O2 Delivery Ventilator Ventilator Ventilator Ventilator 08/07/21 08/07/21 08/07/21 08/07/21 14:30 14:45 15:00 15:40 Temp 100.4 100.4 100.4 100.4 100.4 100.4 Pulse 98 100 102 Resp 20 20 20 B/P (MAP) 114/54 106/54 108/54 Pulse Ox 100 100 100 100 O2 Delivery Ventilator Ventilator Ventilator Ventilator 08/07/21 08/07/21 08/07/21 08/07/21 16:00 16:45 17:00 17:15 Temp 100.8 100.8 100.8 100.8 Pulse 102 106 Resp 20 20 B/P (MAP) 112/54 104/52 Pulse Ox 100 100 100 O2 Delivery Ventilator Ventilator Ventilator Ventilator 08/07/21 08/07/21 08/07/21 08/07/21 17:55 18:00 19:00 20:00 Temp 101.1 100.6 101.1 100.6 Pulse 104 104 104 Resp 20 20 20 B/P (MAP) 118/62 104/57 106/58 Pulse Ox 100 100 100 100 O2 Delivery Ventilator Ventilator Ventilator Ventilator 08/07/21 08/07/21 08/07/21 08/07/21 20:00 20:53 21:00 22:00 Pulse 104 104 Resp 20 20 B/P (MAP) 98/54 96/54 Pulse Ox 100 100 100 O2 Delivery Mechanical Ventilator Ventilator Ventilator Ventilator 08/07/21 08/07/21 08/08/21 08/08/21 22:42 23:00 00:01 01:00 Temp 99.9 99.9 Pulse 104 104 104 Resp 20 20 20 B/P (MAP) 97/58 97/58 118/62 Pulse Ox 100 100 100 100 O2 Delivery Ventilator Ventilator Ventilator Ventilator 08/08/21 08/08/21 08/08/21 08/08/21 02:00 02:26 03:00 04:00 Temp 99.5 99.5 Pulse 97 96 96 Resp 20 20 20 B/P (MAP) 103/56 107/59 105/58 Pulse Ox 100 100 100 100 O2 Delivery Ventilator Ventilator Ventilator Ventilator 08/08/21 08/08/21 08/08/21 08/08/21 05:00 05:25 05:55 05:55 Pulse 93 Resp 20 20 B/P (MAP) 106/84 Pulse Ox 100 100 100 100 O2 Delivery Ventilator Ventilator O2 Flow Rate 15.0 15.0 08/08/21 08/08/21 08/08/21 08/08/21 06:00 07:00 08:00 08:00 Temp 99.5 99.5 Pulse 93 92 92 Resp 20 20 20 B/P (MAP) 103/53 110/54 98/51 Pulse Ox 100 100 100 O2 Delivery Ventilator Ventilator Mechanical Ventilator Ventilator 08/08/21 08/08/21 08/08/21 08:57 09:00 11:54 Pulse 88 Resp 21 B/P (MAP) 106/56 Pulse Ox 99 100 100 O2 Delivery Ventilator Ventilator Ventilator Intake and Output 08/07/21 08/07/21 08/08/21 15:00 23:00 07:00 Intake Total 50 ml 873.0 ml Output Total 0 ml 0 ml 0 ml Balance 50 ml 873.0 ml 0 ml Justifications for Admission Other Justification KASSIEO OSCAR CORMIER MD Aug 08, 2021 12:38
[2021-08-08] MEDS: TPN PER PHARMACY MC PRN (13:01)
--- NOTE | 2021-08-08 13:23 | PDOC ---
[employer] PROGRESS NOTE Date of Service DOS: DATE: 08/08/21 TIME: 13:21 Chief Complaint Chief Complaint Respiratory failure requiring mechanical ventilation Severe sepsis Possible stroke Suprapubic catheter; CHF; COPD; hypertension; pneumonia, End-stage renal disease, on dialysis; history of peritonitis dialysis as well left kidney stents; suprapubic catheter. History of Present Illness History of Present Illness 08/08/2021 Patient seen and examined in the ICU He remains on the ventilator AC//500/30 5% with 5 of PEEP He has a mitt on the right hand Left arm with art line SCDs in place OG to suction Has TPN hanging Sedated with fentanyl Has IV Levophed and IV vasopressin hanging Chart reviewed Discussed with RN He remains extremely critically ill 08/07/2021 Patient seen and examined in the ICU He remains on the vent AC//500/30 5% with 5 of PEEP Has art line in place SCDs in place Has OG clamped On IV TPN Sedated with fentanyl Versed Has IV Levophed and vasopressin hanging Discussed with RN Chart reviewed He remains extremely critically ill 08/06/2021 Patient seen and examined in the ICU CT of the head showing a small stroke CT of the abdomen showing possible obstruction Discussed with RN Chart reviewed He is still intubated AC/500/1 100% with 10 of PEEP OG feeds are running but we are going to stop that and start some TPN if okay with nephrology Sedated with propofol Versed and fentanyl and paralyzed with vecuronium He remains extremely critically ill 08/05/2021 Patient seen and examined in the ICU He is currently on dialysis Discussed with RN He is still on the vent AC//500/30 5% with 5 of PEEP Has SCDs in place [place] to bedside drainage Sedated with fentanyl and Versed Has IV Levophed hanging Also on IV neomycin Also on IV vasopressin Extremely critically ill 08/04/2021 Patient seen and examined in the ICU He is mechanically ventilated AC//40 5% with 5 of PEEP He is extremely hypotensive 63/40 currently despite having Levophed and vasopressin Discussed with RN were going to start Michael-Synephrine Tachycardic at 117 bpm Patient is extremely cool and clammy Had a fever to 103.5 last night currently at 102.9 He is extremely critically ill Vitals/I&O Vitals/I&O: Vital Signs Date Time Temp Pulse Resp B/P (MAP) Pulse Ox O2 Delivery O2 Flow Rate FiO2 08/08/21 11:54 100 Ventilator 08/08/21 09:00 88 21 106/56 08/08/21 08:00 99.5 99.5 08/08/21 05:55 15.0 I & O 08/07/21 08/07/21 08/08/21 15:00 23:00 07:00 Intake Total 50 ml 873.0 ml Output Total 0 ml 0 ml 0 ml Balance 50 ml 873.0 ml 0 ml Physical Exam Physical Exam: GENERAL: Sedated, orally intubated gentleman, not in distress. VITAL SIGNS: Stable though on vasopressor support HEENT: Both pupils are round and reacting. No conjunctival lesion. NECK: Supple. No JVP. Mouth cannot be visualized. Orally intubated. LUNGS: Decreased breath sounds bilaterally. HEART: S1, S2 regular. No gallop or murmur. ABDOMEN: Soft, nontender. No organomegaly. Suprapubic catheter is now looking good with normal looking urine. EXTREMITIES: No edema, cyanosis. SKIN: Unremarkable. AV shunt in the right upper extremity is unremarkable. NEUROLOGIC: The patient cannot be judged as sedated and intubated. General: Other (Intubated) Heart: Regular rate Lungs: Crackles Abdomen: Normal bowel sounds Extremities: No edema Skin: No significant lesion Labs Labs: Laboratory Tests Test 08/08/21 09:00 08/08/21 11:01 O2 Saturation 99 % (92-99) Arterial Blood pH 7.45 (7.35-7.45) Arterial Blood pCO2 at Patient Temp 37 mmHg (35-46) Arterial Blood pO2 at Patient Temp 150 mmHg (75-108) Arterial Blood HCO3 25 mmol/L (21-28) Arterial Blood Base Excess 1 mmol/L (-3-3) FiO2 35 Sodium Level 136 mmol/L (136-145) Potassium Level 4.1 mmol/L (3.5-5.1) Chloride Level 101 mmol/L (98-107) Carbon Dioxide Level 27 mmol/L (21-32) Anion Gap 8 (6-14) Blood Urea Nitrogen 51 mg/dL (8-26) Creatinine 4.8 mg/dL (0.7-1.3) Estimated GFR (Cockcroft-Gault) 12.6 Glucose Level 136 mg/dL (70-99) Calcium Level 8.8 mg/dL (8.5-10.1) Phosphorus Level 2.0 mg/dL (2.6-4.7) Magnesium Level 2.4 mg/dL (1.8-2.4) Assessment and Plan Assessmemt and Plan Problems Medical Problems: (1) Hypoxia Status: Acute (2) Respiratory failure Status: Acute (3) Sepsis Status: Acute (4) Stroke Status: Acute (5) UTI (urinary tract infection) Status: Acute Respiratory failure requiring mechanical ventilation Severe sepsis Small stroke Suprapubic catheter; CHF; COPD; hypertension; pneumonia, End-stage renal disease, on dialysis; history of peritonitis dialysis as well left kidney stents; suprapubic catheter. Plan ICU monitoring Continue mechanical ventilation Vent weaning IV antibiotics per infectious disease Continue our IV pressor support with Levophed vasopressin and were adding an Michael-Synephrine Trend labs Home meds when possible Lovenox 40 mg a day for DVT prophylaxis we will continue SCDs as well Dialysis per nephrology Nutritional support He remains very critically ill Appreciate subspecialist input Prognosis extremely guarded probably terminal CC time 32 minutes Comment Review of Relevant I have reviewed the following items allyson (where applicable) has been applied. Medications: Current Medications Medications (Trade) Dose Ordered Sig/Kevin Route PRN Reason Start Time Stop Time Status Last Admin Dose Admin Sodium Chloride 90 meq/Potassium Chloride 20 meq/ Calcium Gluconate 10 meq/ Multivitamins 10 ml/Zinc/Copper/ Manganese/ Selenium 1 ml/ Total Parenteral Nutrition/Amino Acids/Dextrose 1,200 ml @ 50 mls/hr TPN CONT IV 08/07/21 22:00 08/08/21 21:59 08/07/21 21:26 Justifications for Admission Other Justification KASSIEO DEVAN NICHOLE III DO Aug 08, 2021 13:23
[2021-08-08] MEDS ORDERED: SODIUM PHOSPHATE 15 MMOL in IV NS 100 ML IV ONE (14:00)
--- NOTE | 2021-08-08 14:16 | NUR ---
Pharmacy TPN Dosing Note S: FELICE GROVE is a 56 year old M Currently receiving Central Continuous TPN started 08/06/21 B:Pertinent PMH: High residuals w/tube feeding Height: 5 feet, 5 inches Weight: 77.0 kg Current diet: NPO LABS: Sodium: 136 Potassium: 4.1 Chloride: 101 Calcium: 8.2 Corrected Calcium: 9.24 Magnesium: 2.4 CO2: 27 SCr: 5.1 Glucose: 136 Albumin: 2.7 AST: 158 ALT: 91 TPN FORMULA: TPN TYPE: Central Continuous AMINO ACIDS: 60 gm DEXTROSE: 175 gm LIPIDS: 0 gm SODIUM CHLORIDE: 110 mEq SODIUM ACETATE: mEq SODIUM PHOSPHATE: mmol POTASSIUM CHLORIDE: 20 mEq POTASSIUM ACETATE: mEq POTASSIUM PHOSPHATE: -- mmol MAGNESIUM: -- mEq CALCIUM: 10 mEq INSULIN: units MULTIPLE VITAMIN: 10 ml TRACE ELEMENTS: 1 ml(s) TPN PLAN: PHOS LEVEL 2.0, NAPHOS BOLUS 15MM X1. CONT SAME TPN. R: Continue TPN AT 50 ML/HR Will monitor electrolytes, glucose, and tolerance to TPN. BARRETT MÁRQUEZ [facility], 08/08/21 [id number]
[2021-08-08] MEDS: ATORVASTATIN CALCIUM 20 MG TABLET PO SCH (21:00)
[2021-08-08] MEDS ORDERED: AMINO ACID IV SCH (22:00)
[2021-08-08] MEDS ORDERED: DEXTROSE 70% IV SCH (22:00)
[2021-08-08] MEDS ORDERED: [UNRECOGNIZED DRUG - OTHER] IV SCH (22:00)
[2021-08-08] MEDS ORDERED: TOTAL PARENTERAL NUTRITION IV SCH (22:00)
[2021-08-09] VITALS (25 sets, daily range): BP systolic 106–135; BP diastolic 47–61
[2021-08-09] MEDS: PIPERACILLIN/TAZOBACTAM 2.25 GM in IV NORMAL SALINE 50ML 50 ML IV SCH ×3 (06:00→21:39)
[2021-08-09] MEDS: ASPIRIN CHEWABLE 81 MG TABLET. PO SCH (08:00)
[2021-08-09 08:03] LABS: BASO % 0 % (0-3); EOS # 0.4 x10^3/uL (0.0-0.7); EOS % 3 % (0-3); HEMATOCRIT 30.5 % (39.0-53.0); HEMOGLOBIN 9.9 g/dL (13.0-17.5); LYMPH # 0.9 x10^3/uL (1.0-4.8); LYMPH % 7 % (24-48); MEAN CORPUSCULAR HEMOGLOBIN 32 pg (25-35); MEAN CORPUSCULAR HGB CONC 33 g/dL (31-37); MEAN CORPUSCULAR VOLUME 98 fL (79-100); MONO # 1.8 x10^3/uL (0.0-1.1); MONO % 14 % (0-9); NEUT # 9.7 x10^3/uL (1.8-7.7); NEUT % 76 % (31-73); PLATELET COUNT 83 x10^3/uL (140-400); RED BLOOD COUNT 3.12 x10^6/uL (4.30-5.70); RED CELL DISTRIBUTION WIDTH 17.2 % (11.5-14.5); WHITE BLOOD COUNT 12.8 x10^3/uL (4.0-11.0)
[2021-08-09 08:04] LABS: ALBUMIN 2.3 g/dL (3.4-5.0); ALBUMIN/GLOBULIN RATIO 0.5 (1.0-1.7); CALCIUM 8.7 mg/dL (8.5-10.1); CREATININE 6.2 mg/dL (0.7-1.3); GFR 9.4; MAGNESIUM 2.5 mg/dL (1.8-2.4); PHOSPHORUS 2.5 mg/dL (2.6-4.7); POTASSIUM 3.9 mmol/L (3.5-5.1); TOTAL PROTEIN 7.2 g/dL (6.4-8.2)
--- NOTE | 2021-08-09 08:14 | RAD ---
EXAM: AP View of the chest DATE: 08/09/2021 7:44 AM INDICATION: ventilator patient; covid neg COMPARISON: 08/06/2021 08/05/2021 FINDINGS: Right IJ vascular catheter tip projects over the distal SVC. ET tube tip terminates approximately 2-3 cm above the rich. Enteric tube tip projects over the expected body of the stomach. Patchy bilateral parenchymal opacities are similar accounting for differences in projection/technique . No pleural effusion or pneumothorax. IMPRESSION: 1. Bilateral patchy parenchymal opacities are similar to prior. 2. Support lines and tubes as above. Electronically signed by: Yandel Martell MD (08/09/2021 8:11 AM) [id number]
[2021-08-09] MEDS: TPN PER PHARMACY MC PRN (09:45)
--- NOTE | 2021-08-09 09:45 | NUR ---
Pharmacy TPN Dosing Note S: FELICE GROVE is a 56 year old M Currently receiving Central Continuous TPN started 08/06/21 B:Pertinent PMH: High residuals w/tube feeding Height: 5 feet, 5 inches Weight: 77.0 kg Current diet: NPO LABS: Sodium: 138 Potassium: 3.9 Chloride: 101 Calcium: 8.7 Corrected Calcium: 10.06 Magnesium: 2.5 CO2: 22 SCr: 6.2 Glucose: 115 Albumin: 2.3 AST: 87 ALT: 59 TPN FORMULA: TPN TYPE: Central Continuous AMINO ACIDS: 90 gm DEXTROSE: 175 gm LIPIDS: 40 gm SODIUM CHLORIDE: 110 mEq POTASSIUM CHLORIDE: 20 mEq POTASSIUM PHOSPHATE: 6 mmol CALCIUM: 5 mEq MULTIPLE VITAMIN: 10 ml TRACE ELEMENTS: 1 ml TPN PLAN: -Serum phos low, add KPhos 6 mmol/day. -Reduce calcium gluconate to 5 mEq/day. -Add 40gm lipids per [facility] policy due to national lipid shortage. -BMP, phos tomorrow. R: Continue TPN @ current rate and above formula. Will monitor electrolytes, glucose, and tolerance to TPN. TORREY COLLINS [facility], 08/09/21 [id number]
--- NOTE | 2021-08-09 10:02 | PDOC ---
NOEMI BARR [employer] 08/09/21 1002: CARDIO Progress Notes Date and Time Date of Service 08/09/21 Time of Evaluation 1045 Subjective Subjective: Other (intubated with MV) Vitals Vitals Vital Signs Date Time Temp Pulse Resp B/P (MAP) Pulse Ox O2 Delivery O2 Flow Rate FiO2 08/09/21 08:16 100 Ventilator 08/09/21 06:00 103 23 121/58 15.0 08/09/21 04:00 99.3 99.3 Weight Weight [ ] Input and Output Intake and Output Intake and Output 08/09/21 07:00 Intake Total 840 ml Output Total 900 ml Balance -60 ml Intake IV Total 840 ml Output Urine Total 0 ml Gastric Drainage Total 900 ml Laboratory Labs Laboratory Tests Test 08/08/21 11:01 08/09/21 07:15 Sodium Level 136 mmol/L (136-145) 138 mmol/L (136-145) Potassium Level 4.1 mmol/L (3.5-5.1) 3.9 mmol/L (3.5-5.1) Chloride Level 101 mmol/L (98-107) 101 mmol/L (98-107) Carbon Dioxide Level 27 mmol/L (21-32) 22 mmol/L (21-32) Anion Gap 8 (6-14) 15 (6-14) Blood Urea Nitrogen 51 mg/dL (8-26) 77 mg/dL (8-26) Creatinine 4.8 mg/dL (0.7-1.3) 6.2 mg/dL (0.7-1.3) Estimated GFR (Cockcroft-Gault) 12.6 9.4 Glucose Level 136 mg/dL (70-99) 115 mg/dL (70-99) Calcium Level 8.8 mg/dL (8.5-10.1) 8.7 mg/dL (8.5-10.1) Phosphorus Level 2.0 mg/dL (2.6-4.7) 2.5 mg/dL (2.6-4.7) Magnesium Level 2.4 mg/dL (1.8-2.4) 2.5 mg/dL (1.8-2.4) White Blood Count 12.8 x10^3/uL (4.0-11.0) Red Blood Count 3.12 x10^6/uL (4.30-5.70) Hemoglobin 9.9 g/dL (13.0-17.5) Hematocrit 30.5 % (39.0-53.0) Mean Corpuscular Volume 98 fL (79-100) Mean Corpuscular Hemoglobin 32 pg (25-35) Mean Corpuscular Hemoglobin Concent 33 g/dL (31-37) Red Cell Distribution Width 17.2 % (11.5-14.5) Platelet Count 83 x10^3/uL (140-400) Neutrophils (%) (Auto) 76 % (31-73) Lymphocytes (%) (Auto) 7 % (24-48) Monocytes (%) (Auto) 14 % (0-9) Eosinophils (%) (Auto) 3 % (0-3) Basophils (%) (Auto) 0 % (0-3) Neutrophils # (Auto) 9.7 x10^3/uL (1.8-7.7) Lymphocytes # (Auto) 0.9 x10^3/uL (1.0-4.8) Monocytes # (Auto) 1.8 x10^3/uL (0.0-1.1) Eosinophils # (Auto) 0.4 x10^3/uL (0.0-0.7) Basophils # (Auto) 0.0 x10^3/uL (0.0-0.2) BUN/Creatinine Ratio 12 (6-20) Total Bilirubin 1.0 mg/dL (0.2-1.0) Aspartate Amino Transf (AST/SGOT) 87 U/L (15-37) Alanine Aminotransferase (ALT/SGPT) 59 U/L (16-63) Alkaline Phosphatase 427 U/L (46-116) Total Protein 7.2 g/dL (6.4-8.2) Albumin 2.3 g/dL (3.4-5.0) Albumin/Globulin Ratio 0.5 (1.0-1.7) Microbiology Micro Microbiology 08/06/21 Blood Culture - Preliminary, Resulted NO GROWTH AFTER 2 DAYS 08/03/21 Urine Culture - Final, Complete Review of Systems Constitutional: yes: unresponsive Physical Exam HEENT: Neck Supple W Full Motion Chest: Symmetric LUNGS: Other (diminished, intubated with MV) Heart: RRR (ST with first degree AV block) Abdomen: Other (soft) Extremities: No Edema Neurology: other (off sedation, not awake ) Assessment Assessment 1. Encephalopathy, possible stroke with left-sided weakness. off sedation, not awake 2. Acute respiratory failure; multifactorial. s/p intubation 3. Leukocytosis, fevers, sepsis; BC + GPC 4. Septic shock; off pressor support. BP low end, but adequate 5. UTI with suprapubic cath 6. ESRD on HD. hyperkalemia resolved 7. Arrhythmia; bursts of NSVT 8. Acute on chronic diastolic CHF; Echo 04/13 with preserved LV systolic function. LHC 04/13 with normal coronaries 9. Valvular disease: mod to severe 10. SSS s/p leadless PPM 11. Moderate secondary pulmonary HTN 12. Hypothyroidism 13. Mildly elevated LFTs 14. Anemia, thrombocytopenia; PLTs downtrending Recommendations Ongoing antibiotic therapy, treatment of sepsis Fluid offloading via HD Keep Mg > 2.0 and K > 4.0 Monitor CBC, consider holding heparin Supportive care from a CV standpoint Future consideration for TAVR Justicifation of Admission Dx: Justifications for Admission: Justification of Admission Dx: N/A MARIANN TIRADO MD 08/10/21 1126: CARDIO Progress Notes Plan Plan Late entry for 08/09/2021 Patient seen and examined. Agree with above nurse practitioner note. Await neurologic recovery. Needs outpatient valve surgery at [facility]. NOEMI BARR APRN Aug 09, 2021 10:02 MARIANN TIRADO MD Aug 10, 2021 11:26
--- NOTE | 2021-08-09 10:26 | PDOC ---
Date of Service: DATE: 08/09/21 TIME: 10:14 Objective: Objective: No stools charted. Vital Signs: Vital Signs Date Time Temp Pulse Resp B/P (MAP) Pulse Ox O2 Delivery O2 Flow Rate FiO2 08/09/21 08:16 100 Ventilator 08/09/21 06:00 103 23 121/58 15.0 08/09/21 04:00 99.3 99.3 Labs: Laboratory Tests Test 08/08/21 11:01 08/09/21 07:15 Sodium Level 136 mmol/L 138 mmol/L Potassium Level 4.1 mmol/L 3.9 mmol/L Chloride Level 101 mmol/L 101 mmol/L Carbon Dioxide Level 27 mmol/L 22 mmol/L Anion Gap 8 15 Blood Urea Nitrogen 51 mg/dL 77 mg/dL Creatinine 4.8 mg/dL 6.2 mg/dL Estimated GFR (Cockcroft-Gault) 12.6 9.4 Glucose Level 136 mg/dL 115 mg/dL Calcium Level 8.8 mg/dL 8.7 mg/dL Phosphorus Level 2.0 mg/dL 2.5 mg/dL Magnesium Level 2.4 mg/dL 2.5 mg/dL White Blood Count 12.8 x10^3/uL Red Blood Count 3.12 x10^6/uL Hemoglobin 9.9 g/dL Hematocrit 30.5 % Mean Corpuscular Volume 98 fL Mean Corpuscular Hemoglobin 32 pg Mean Corpuscular Hemoglobin Concent 33 g/dL Red Cell Distribution Width 17.2 % Platelet Count 83 x10^3/uL Neutrophils (%) (Auto) 76 % Lymphocytes (%) (Auto) 7 % Monocytes (%) (Auto) 14 % Eosinophils (%) (Auto) 3 % Basophils (%) (Auto) 0 % Neutrophils # (Auto) 9.7 x10^3/uL Lymphocytes # (Auto) 0.9 x10^3/uL Monocytes # (Auto) 1.8 x10^3/uL Eosinophils # (Auto) 0.4 x10^3/uL Basophils # (Auto) 0.0 x10^3/uL BUN/Creatinine Ratio 12 Total Bilirubin 1.0 mg/dL Aspartate Amino Transf (AST/SGOT) 87 U/L Alanine Aminotransferase (ALT/SGPT) 59 U/L Alkaline Phosphatase 427 U/L Total Protein 7.2 g/dL Albumin 2.3 g/dL Albumin/Globulin Ratio 0.5 BLOOD CULTURE Preliminary NO GROWTH AFTER 3 DAYS Imaging: CXR 08/09 IMPRESSION: 1. Bilateral patchy parenchymal opacities are similar to prior. 2. Support lines and tubes as above. PE: GEN: intubated LUNGS: vent, diminished HEART: mildly tachycardic ABD: soft, a few quiet gurgles - OGT bilious (~300cc in canister) NEURO/PSYCH: sedated A/P: Possible stroke, resp failure, sepsis Ileus - had CT on 08/06 Chronic anemia, elevated Alk Phos (worse) ESRD, COVID negative -- Continue TPN, IV PPI, OG suction, monitor OGT output and labs - d/w nurse. Justicifation of Admission Dx: Justifications for Admission: Justification of Admission Dx: N/A ERINN HOBSON Aug 09, 2021 10:26
--- NOTE | 2021-08-09 10:33 | PDOC ---
DATE OF SERVICE DATE: 08/09/21 TIME: 10:27 SUBJECTIVE ROS Intubated, on MV Not waking up off sedation OBJECTIVE Vital Signs Vital Signs Date Time Temp Pulse Resp B/P (MAP) Pulse Ox O2 Delivery O2 Flow Rate FiO2 08/09/21 08:16 100 Ventilator 08/09/21 06:00 103 23 121/58 15.0 08/09/21 04:00 99.3 99.3 I & 0 Intake and Output 08/09/21 07:00 Intake Total 840 ml Output Total 900 ml Balance -60 ml Intake IV Total 840 ml Output Urine Total 0 ml Gastric Drainage Total 900 ml PHYSICAL EXAM Physical Exam GENERAL: orally intubated HEENT: ETT + NECK: Supple. LUNGS: Decreased breath sounds bilaterally. HEART: S1, S2 regular. ABDOMEN: Soft, nontender. No organomegaly. has chronic Suprapubic EXTREMITIES: No cyanosis. AV shunt in the right upper extremity SKIN: .No Rash NEUROLOGIC: ntubated, not waking up off sedation DIAGNOSIS/ASSESSMENT Assessment & Plan ESRD - on HD TTS , currently No indication for dialysis today Encephalopathy, possible stroke with left-sided weakness Acute respiratory failure; multifactorial. s/p intubation Leukocytosis/ ,Septic shock; requiring pressor support BC + GPC UTI with chronic suprapubic cath Acute on chronic diastolic CHF; Echo 04/13 with preserved LV systolic function. LHC 04/13 with normal coronaries Valvular disease: mod to severe SSS s/p leadless PPM placed at [facility] Moderate secondary pulmonary HTN Hypothyroidism Anemia Hgb trending down , per primary . Hold CLIFF due to Possible CVA COMMENT/RELEVANT DATA Meds Current Medications Medications (Trade) Dose Ordered Sig/Kevin Start Time Stop Time Status Last Admin Dose Admin Acetaminophen (Tylenol Supp) 650 mg PRN Q6HRS PRN 08/03/21 20:45 08/04/21 20:25 650 MG Acetaminophen (Tylenol) 650 mg PRN Q6HRS PRN 08/03/21 20:45 Albumin Human 200 ml @ 200 mls/hr 1X PRN PRN 08/07/21 05:30 08/07/21 11:29 DC Aspirin (Aspirin Chewable) 81 mg [id number] 08/06/21 11:45 08/08/21 09:04 81 MG Atorvastatin Calcium (Lipitor) 20 mg QHS 08/06/21 21:00 08/07/21 21:24 20 MG Atropine Sulfate (ATROPINE 0.5mg SYRINGE) 0.5 mg PRN Q5MIN PRN 08/03/21 15:00 Chlorhexidine Gluconate (Peridex) 15 ml BID 08/03/21 21:00 08/04/21 19:49 DC Ciprofloxacin/ Dextrose 200 ml @ 200 mls/hr DAILY 08/04/21 09:00 08/05/21 09:18 DC 08/04/21 11:38 200 MLS/HR Dexmedetomidine HCl 400 mcg/ Sodium Chloride 100 ml @ 3.725 mls/ hr CONT PRN 08/03/21 15:00 Dextrose (Dextrose 50%-Water Syringe) 12.5 gm PRN Q15MIN PRN 08/05/21 13:00 08/06/21 17:47 25 GM Etomidate (Amidate) 20 mg STK-MED ONCE 08/03/21 17:04 08/03/21 17:04 DC Famotidine (Pepcid Vial) 20 mg QODAY 08/04/21 09:00 08/06/21 14:25 DC 08/06/21 09:08 20 MG Fentanyl Citrate 30 ml @ 2.5 mls/hr CONT PRN 08/03/21 15:00 08/08/21 05:25 2.5 MLS/HR Glycerin/ Hypromellose/ Polyethylene (Artificial Tears) 1 drop PRN Q1HR PRN 08/03/21 15:00 Heparin Sodium (Porcine) (Heparin Sodium) 5,000 unit Q12HR 08/05/21 11:00 08/08/21 21:59 5,000 UNIT Info (CONTRAST GIVEN -- Rx MONITORING) 1 each PRN DAILY PRN 08/06/21 09:45 08/08/21 09:44 DC Info (PHARMACY MONITORING -- do not chart) 1 each PRN DAILY PRN 08/07/21 05:30 08/07/21 05:28 DC Info (Tpn Per Pharmacy) 1 each PRN DAILY PRN 08/06/21 12:30 08/09/21 09:45 1 EACH Iohexol (Omnipaque 240 Mg/ml) 50 ml STK-MED ONCE 08/04/21 12:36 08/04/21 12:36 DC Iohexol (Omnipaque 300 Mg/ml) 60 ml 1X ONCE 08/06/21 09:30 08/06/21 09:31 DC 08/06/21 09:30 60 ML Lidocaine HCl (Buffered Lidocaine 1%) 3 ml 1X ONCE 08/04/21 13:30 08/04/21 13:31 DC 08/04/21 13:15 2 ML Lidocaine HCl (Xylocaine-Mpf 1% 5ml Vial) 5 ml 1X ONCE 08/04/21 09:30 08/04/21 09:31 DC Magnesium Sulfate 50 ml @ 25 mls/hr 1X ONCE 08/05/21 16:30 08/05/21 18:29 DC 08/05/21 16:59 25 MLS/HR Midazolam HCl (Versed) 5 mg PRN 1X PRN 08/03/21 15:00 08/04/21 14:59 DC Norepinephrine Bitartrate 32 mg/ Dextrose 250 ml @ 3.492 mls/ hr CONT PRN 08/04/21 05:30 08/07/21 02:12 11.524 MLS/HR Norepinephrine Bitartrate 8 mg/ Dextrose 258 ml @ 14.416 mls/ hr CONT PRN 08/03/21 15:00 08/04/21 05:29 DC 08/04/21 03:52 141.274 MLS/HR Pantoprazole Sodium (PROTONIX VIAL for IV PUSH) 40 mg DAILYAC 08/06/21 15:00 08/08/21 09:04 40 MG Phenylephrine HCl 50 mg/Sodium Chloride 255 ml @ 11.399 mls/ hr CONT PRN 08/04/21 06:30 08/05/21 05:38 22.797 MLS/HR Piperacillin Sod/ Tazobactam Sod 2.25 gm/Sodium Chloride 50 ml @ 100 mls/hr Q6HRS 08/04/21 12:00 UNV Piperacillin Sod/ Tazobactam Sod 4.5 gm/Sodium Chloride 100 ml @ 200 mls/hr 1X ONCE 08/03/21 11:15 08/03/21 11:44 DC 08/03/21 11:26 200 MLS/HR Propofol 100 ml @ 2.235 mls/ hr CONT PRN 08/03/21 15:00 Rocuronium Emeigh (Zemuron) 50 mg STK-MED ONCE 08/03/21 17:04 08/03/21 17:04 DC Sodium Chloride (Normal Saline Flush) 10 ml 1X PRN PRN 08/07/21 05:30 08/08/21 05:29 DC Sodium Chloride 90 meq/Potassium Chloride 20 meq/ Calcium Gluconate 10 meq/ Multivitamins 10 ml/Zinc/Copper/ Manganese/ Selenium 1 ml/ Total Parenteral Nutrition/Amino Acids/Dextrose 1,200 ml @ 50 mls/hr TPN CONT 08/07/21 22:00 08/08/21 21:59 DC 08/07/21 21:26 50 MLS/HR Sodium Chloride 90 meq/Potassium Chloride 20 meq/ Calcium Gluconate 10 meq/ Multivitamins 10 ml/Zinc/Copper/ Manganese/ Selenium 1 ml/ Total Parenteral Nutrition/Amino Acids/Dextrose/ Fat Emulsion Intravenous 1,200 ml @ 50 mls/hr TPN CONT 08/06/21 22:00 08/07/21 21:59 DC 08/06/21 21:58 50 MLS/HR Sodium Chloride 110 meq/Potassium Chloride 20 meq/ Calcium Gluconate 10 meq/ Multivitamins 10 ml/Zinc/Copper/ Manganese/ Selenium 1 ml/ Total Parenteral Nutrition/Amino Acids/Dextrose 1,200 ml @ 50 mls/hr TPN CONT 08/08/21 22:00 08/09/21 21:59 08/08/21 22:09 50 MLS/HR Sodium Chloride 110 meq/Potassium Chloride 20 meq/ Potassium Phosphate 6 mmol/ Calcium Gluconate 5 meq/ Multivitamins 10 ml/Zinc/Copper/ Manganese/ Selenium 1 ml/ Total Parenteral Nutrition/Amino Acids/Dextrose/ Fat Emulsion Intravenous 1,200 ml @ 50 mls/hr TPN CONT 08/09/21 22:00 08/10/21 21:59 Sodium Phosphate 15 mmol/Sodium Chloride 105 ml @ 105 mls/hr 1X ONCE 08/08/21 14:00 08/08/21 14:59 DC 08/08/21 15:22 105 MLS/HR Vancomycin HCl (Vanco Per Pharmacy) 1 each PRN DAILY PRN 08/04/21 08:00 UNV Vancomycin HCl (Vancomycin Random Level) 1 each 1X ONCE 08/05/21 06:00 08/05/21 06:01 DC 08/05/21 06:14 1 EACH Vancomycin HCl 1.5 gm/Sodium Chloride 500 ml @ 250 mls/hr 1X ONCE 08/03/21 12:00 08/03/21 13:59 DC 08/03/21 12:00 250 MLS/HR Vancomycin HCl 500 mg/Sodium Chloride 100 ml @ 100 mls/hr QTUTHSA 08/05/21 16:00 08/07/21 09:38 DC 08/05/21 15:59 100 MLS/HR Vasopressin 20 unit/Dextrose 101 ml @ 12 mls/hr CONT PRN 08/04/21 03:45 08/08/21 22:04 12 MLS/HR Vecuronium Emeigh (Norcuron Bolus) 6 mg PRN 1X PRN 08/03/21 15:00 08/04/21 14:59 DC Lab Laboratory Tests Test 08/08/21 11:01 08/09/21 07:15 Sodium Level 136 mmol/L (136-145) 138 mmol/L (136-145) Potassium Level 4.1 mmol/L (3.5-5.1) 3.9 mmol/L (3.5-5.1) Chloride Level 101 mmol/L (98-107) 101 mmol/L (98-107) Carbon Dioxide Level 27 mmol/L (21-32) 22 mmol/L (21-32) Anion Gap 8 (6-14) 15 (6-14) Blood Urea Nitrogen 51 mg/dL (8-26) 77 mg/dL (8-26) Creatinine 4.8 mg/dL (0.7-1.3) 6.2 mg/dL (0.7-1.3) Estimated GFR (Cockcroft-Gault) 12.6 9.4 Glucose Level 136 mg/dL (70-99) 115 mg/dL (70-99) Calcium Level 8.8 mg/dL (8.5-10.1) 8.7 mg/dL (8.5-10.1) Phosphorus Level 2.0 mg/dL (2.6-4.7) 2.5 mg/dL (2.6-4.7) Magnesium Level 2.4 mg/dL (1.8-2.4) 2.5 mg/dL (1.8-2.4) White Blood Count 12.8 x10^3/uL (4.0-11.0) Red Blood Count 3.12 x10^6/uL (4.30-5.70) Hemoglobin 9.9 g/dL (13.0-17.5) Hematocrit 30.5 % (39.0-53.0) Mean Corpuscular Volume 98 fL (79-100) Mean Corpuscular Hemoglobin 32 pg (25-35) Mean Corpuscular Hemoglobin Concent 33 g/dL (31-37) Red Cell Distribution Width 17.2 % (11.5-14.5) Platelet Count 83 x10^3/uL (140-400) Neutrophils (%) (Auto) 76 % (31-73) Lymphocytes (%) (Auto) 7 % (24-48) Monocytes (%) (Auto) 14 % (0-9) Eosinophils (%) (Auto) 3 % (0-3) Basophils (%) (Auto) 0 % (0-3) Neutrophils # (Auto) 9.7 x10^3/uL (1.8-7.7) Lymphocytes # (Auto) 0.9 x10^3/uL (1.0-4.8) Monocytes # (Auto) 1.8 x10^3/uL (0.0-1.1) Eosinophils # (Auto) 0.4 x10^3/uL (0.0-0.7) Basophils # (Auto) 0.0 x10^3/uL (0.0-0.2) BUN/Creatinine Ratio 12 (6-20) Total Bilirubin 1.0 mg/dL (0.2-1.0) Aspartate Amino Transf (AST/SGOT) 87 U/L (15-37) Alanine Aminotransferase (ALT/SGPT) 59 U/L (16-63) Alkaline Phosphatase 427 U/L (46-116) Total Protein 7.2 g/dL (6.4-8.2) Albumin 2.3 g/dL (3.4-5.0) Albumin/Globulin Ratio 0.5 (1.0-1.7) Results All relevant outside records, renal labs, imaging studies, telemetry/EKG's were reviewed. Justicifation of Admission Dx: Justifications for Admission: Justification of Admission Dx: N/A MARIYA NORMAN MD Aug 09, 2021 10:33
[2021-08-09] MEDS: PANTOPRAZOLE IV PUSH 40 MG VIAL. IVP SCH (11:00)
[2021-08-09] MEDS: HEPARIN for SUB-Q USE 5,000 UNIT/ML VIAL. SQ SCH ×2 (11:00→21:29)
--- NOTE | 2021-08-09 11:04 | PDOC ---
PROGRESS NOTES Date of Service DATE: 08/09/21 TIME: 11:02 Assessment Problems Medical Problems: (1) Hypoxia Status: Acute (2) Respiratory failure Status: Acute (3) Sepsis Status: Acute (4) Stroke Status: Acute (5) UTI (urinary tract infection) Status: Acute Right frontoparietal stroke Fever, sepsis requiring pressors due to hypotension, respiratory failure, end- stage renal disease, congestive heart failure, cardiomyopathy status-post pacemaker Note normal hemoglobin A1c and lipid profile Plan Treat medical issues Aspirin and statin ordered Subjective None Objective Vital Signs Date Time Temp Pulse Resp B/P (MAP) Pulse Ox O2 Delivery O2 Flow Rate FiO2 08/09/21 08:16 100 Ventilator 08/09/21 06:00 103 23 121/58 15.0 08/09/21 04:00 99.3 99.3 Intake and Output 08/09/21 07:00 Intake Total 840 ml Output Total 900 ml Balance -60 ml Intake IV Total 840 ml Output Urine Total 0 ml Gastric Drainage Total 900 ml PHYSICAL EXAM Sedated on ventilator PERRL. EOMI. CN: no focal findings. Muscle tone: normal. Muscle strength: Minimal movement, moves the right side more than the left DTR: 2+ Plantar reflex: Silent Gait: not examined in bed. Sensory exam: Not cooperative. Cerebellar: not cooperative Review of Relevant I have reviewed the following items allyson (where applicable) has been applied. Labs Laboratory Tests Test 08/08/21 09:00 08/08/21 11:01 08/09/21 07:15 O2 Saturation 99 % (92-99) Arterial Blood pH 7.45 (7.35-7.45) Arterial Blood pCO2 at Patient Temp 37 mmHg (35-46) Arterial Blood pO2 at Patient Temp 150 mmHg (75-108) Arterial Blood HCO3 25 mmol/L (21-28) Arterial Blood Base Excess 1 mmol/L (-3-3) FiO2 35 Sodium Level 136 mmol/L (136-145) 138 mmol/L (136-145) Potassium Level 4.1 mmol/L (3.5-5.1) 3.9 mmol/L (3.5-5.1) Chloride Level 101 mmol/L (98-107) 101 mmol/L (98-107) Carbon Dioxide Level 27 mmol/L (21-32) 22 mmol/L (21-32) Anion Gap 8 (6-14) 15 (6-14) Blood Urea Nitrogen 51 mg/dL (8-26) 77 mg/dL (8-26) Creatinine 4.8 mg/dL (0.7-1.3) 6.2 mg/dL (0.7-1.3) Estimated GFR (Cockcroft-Gault) 12.6 9.4 Glucose Level 136 mg/dL (70-99) 115 mg/dL (70-99) Calcium Level 8.8 mg/dL (8.5-10.1) 8.7 mg/dL (8.5-10.1) Phosphorus Level 2.0 mg/dL (2.6-4.7) 2.5 mg/dL (2.6-4.7) Magnesium Level 2.4 mg/dL (1.8-2.4) 2.5 mg/dL (1.8-2.4) White Blood Count 12.8 x10^3/uL (4.0-11.0) Red Blood Count 3.12 x10^6/uL (4.30-5.70) Hemoglobin 9.9 g/dL (13.0-17.5) Hematocrit 30.5 % (39.0-53.0) Mean Corpuscular Volume 98 fL (79-100) Mean Corpuscular Hemoglobin 32 pg (25-35) Mean Corpuscular Hemoglobin Concent 33 g/dL (31-37) Red Cell Distribution Width 17.2 % (11.5-14.5) Platelet Count 83 x10^3/uL (140-400) Neutrophils (%) (Auto) 76 % (31-73) Lymphocytes (%) (Auto) 7 % (24-48) Monocytes (%) (Auto) 14 % (0-9) Eosinophils (%) (Auto) 3 % (0-3) Basophils (%) (Auto) 0 % (0-3) Neutrophils # (Auto) 9.7 x10^3/uL (1.8-7.7) Lymphocytes # (Auto) 0.9 x10^3/uL (1.0-4.8) Monocytes # (Auto) 1.8 x10^3/uL (0.0-1.1) Eosinophils # (Auto) 0.4 x10^3/uL (0.0-0.7) Basophils # (Auto) 0.0 x10^3/uL (0.0-0.2) BUN/Creatinine Ratio 12 (6-20) Total Bilirubin 1.0 mg/dL (0.2-1.0) Aspartate Amino Transf (AST/SGOT) 87 U/L (15-37) Alanine Aminotransferase (ALT/SGPT) 59 U/L (16-63) Alkaline Phosphatase 427 U/L (46-116) Total Protein 7.2 g/dL (6.4-8.2) Albumin 2.3 g/dL (3.4-5.0) Albumin/Globulin Ratio 0.5 (1.0-1.7) Laboratory Tests Test 08/09/21 07:15 White Blood Count 12.8 x10^3/uL (4.0-11.0) Red Blood Count 3.12 x10^6/uL (4.30-5.70) Hemoglobin 9.9 g/dL (13.0-17.5) Hematocrit 30.5 % (39.0-53.0) Mean Corpuscular Volume 98 fL (79-100) Mean Corpuscular Hemoglobin 32 pg (25-35) Mean Corpuscular Hemoglobin Concent 33 g/dL (31-37) Red Cell Distribution Width 17.2 % (11.5-14.5) Platelet Count 83 x10^3/uL (140-400) Neutrophils (%) (Auto) 76 % (31-73) Lymphocytes (%) (Auto) 7 % (24-48) Monocytes (%) (Auto) 14 % (0-9) Eosinophils (%) (Auto) 3 % (0-3) Basophils (%) (Auto) 0 % (0-3) Neutrophils # (Auto) 9.7 x10^3/uL (1.8-7.7) Lymphocytes # (Auto) 0.9 x10^3/uL (1.0-4.8) Monocytes # (Auto) 1.8 x10^3/uL (0.0-1.1) Eosinophils # (Auto) 0.4 x10^3/uL (0.0-0.7) Basophils # (Auto) 0.0 x10^3/uL (0.0-0.2) Sodium Level 138 mmol/L (136-145) Potassium Level 3.9 mmol/L (3.5-5.1) Chloride Level 101 mmol/L (98-107) Carbon Dioxide Level 22 mmol/L (21-32) Anion Gap 15 (6-14) Blood Urea Nitrogen 77 mg/dL (8-26) Creatinine 6.2 mg/dL (0.7-1.3) Estimated GFR (Cockcroft-Gault) 9.4 BUN/Creatinine Ratio 12 (6-20) Glucose Level 115 mg/dL (70-99) Calcium Level 8.7 mg/dL (8.5-10.1) Phosphorus Level 2.5 mg/dL (2.6-4.7) Magnesium Level 2.5 mg/dL (1.8-2.4) Total Bilirubin 1.0 mg/dL (0.2-1.0) Aspartate Amino Transf (AST/SGOT) 87 U/L (15-37) Alanine Aminotransferase (ALT/SGPT) 59 U/L (16-63) Alkaline Phosphatase 427 U/L (46-116) Total Protein 7.2 g/dL (6.4-8.2) Albumin 2.3 g/dL (3.4-5.0) Albumin/Globulin Ratio 0.5 (1.0-1.7) Microbiology 08/06/21 Blood Culture - Preliminary, Resulted NO GROWTH AFTER 3 DAYS 08/03/21 Urine Culture - Final, Complete Medications Current Medications Sodium Chloride 1,000 ml @ 1,000 mls/hr 1X ONCE IV Last administered on 08/03/21at 11:26; Start 08/03/21 at 11:15; Stop 08/03/21 at 12:14; Status DC Piperacillin Sod/ Tazobactam Sod 4.5 gm/Sodium Chloride 100 ml @ 200 mls/hr 1X ONCE IV Last administered on 08/03/21at 11:26; Start 08/03/21 at 11:15; Stop 08/03/21 at 11:44; Status DC Vancomycin HCl 1.5 gm/Sodium Chloride 500 ml @ 250 mls/hr 1X ONCE IV Last administered on 08/03/21at 12:00; Start 08/03/21 at 12:00; Stop 08/03/21 at 13:59; Status DC Iohexol (Omnipaque 300 Mg/ml) 75 ml 1X ONCE IV Last administered on 08/03/21at 11:29; Start 08/03/21 at 11:15; Stop 08/03/21 at 11:16; Status DC Info (CONTRAST GIVEN -- Rx MONITORING) 1 each PRN DAILY PRN MC SEE COMMENTS; Start 08/03/21 at 11:15; Stop 08/05/21 at 11:14; Status DC Fentanyl Citrate 30 ml @ 2.5 mls/hr CONT PRN IV SEE PROTOCOL; Start 08/03/21 at 12:15; Status Cancel Propofol 100 ml @ 2.235 mls/ hr CONT PRN IV PER PROTOCOL Last administered on 08/03/21at 12:31; Start 08/03/21 at 12:15; Stop 08/04/21 at 07:38; Status DC Chlorhexidine Gluconate (Peridex) 15 ml BID MM ; Start 08/03/21 at 21:00; Status Cancel Glycerin/ Hypromellose/ Polyethylene (Artificial Tears) 1 drop PRN Q1HR PRN OU DRY EYE; Start 08/03/21 at 12:15; Stop 08/03/21 at 21:15; Status DC Dexmedetomidine HCl 400 mcg/ Sodium Chloride 100 ml @ 3.725 mls/ hr CONT PRN IV PER PROTOCOL; Start 08/03/21 at 12:15; Stop 08/03/21 at 21:15; Status DC Midazolam HCl (Versed) 5 mg PRN 1X PRN IVP VENT INDUCTION Last administered on 08/03/21at 14:12; Start 08/03/21 at 12:15; Stop 08/03/21 at 14:12; Status DC Etomidate (Amidate) 10 mg 1X ONCE IV Last administered on 08/03/21at 12:48; Start 08/03/21 at 12:45; Stop 08/03/21 at 12:46; Status DC Rocuronium [place] (Zemuron) 100 mg 1X ONCE IV Last administered on 08/03/21at 12:45; Start 08/03/21 at 12:45; Stop 08/03/21 at 12:46; Status DC Sodium Chloride 250 ml @ 250 mls/hr 1X ONCE IV Last administered on 08/03/21at 14:21; Start 08/03/21 at 14:30; Stop 08/03/21 at 15:29; Status DC Fentanyl Citrate 30 ml @ 2.5 mls/hr CONT PRN IV SEE PROTOCOL Last administered on 08/08/21at 05:25; Start 08/03/21 at 15:00 Midazolam HCl 100 ml @ 1 mls/hr CONT PRN IV SEE PROTOCOL Last administered on 08/07/21at 00:37; Start 08/03/21 at 15:00 Propofol 100 ml @ 2.235 mls/ hr CONT PRN IV PER PROTOCOL; Start 08/03/21 at 15:00 Vecuronium [place] (Norcuron Bolus) 6 mg PRN 1X PRN IV VENT INDUCTION; Start 08/03/21 at 15:00; Stop 08/04/21 at 14:59; Status DC Chlorhexidine Gluconate (Peridex) 15 ml BID MM ; Start 08/03/21 at 21:00; Stop 08/04/21 at 19:49; Status DC Glycerin/ Hypromellose/ Polyethylene (Artificial Tears) 1 drop PRN Q1HR PRN OU DRY EYE; Start 08/03/21 at 15:00 Dexmedetomidine HCl 400 mcg/ Sodium Chloride 100 ml @ 3.725 mls/ hr CONT PRN IV PER PROTOCOL; Start 08/03/21 at 15:00 Midazolam HCl (Versed) 5 mg PRN 1X PRN IVP VENT INDUCTION; Start 08/03/21 at 15:00; Stop 08/04/21 at 14:59; Status DC Sodium Chloride 500 ml @ 500 mls/hr 1X PRN PRN IV SEE COMMENTS; Start 08/03/21 at 15:00 Atropine Sulfate (ATROPINE 0.5mg SYRINGE) 0.5 mg PRN Q5MIN PRN IV SEE COMMENTS; Start 08/03/21 at 15:00 Famotidine (Pepcid Vial) 20 mg BID IVP Last administered on 08/03/21at 21:00; Start 08/03/21 at 21:00; Stop 08/04/21 at 07:59; Status DC Norepinephrine Bitartrate 8 mg/ Dextrose 258 ml @ 14.416 mls/ hr CONT PRN IV PER PROTOCOL Last administered on 08/04/21at 03:52; Start 08/03/21 at 15:00; Stop 08/04/21 at 05:29; Status DC Etomidate (Amidate) 20 mg STK-MED ONCE IV ; Start 08/03/21 at 17:04; Stop 08/03/21 at 17:04; Status DC Rocuronium [place] (Zemuron) 50 mg STK-MED ONCE .ROUTE ; Start 08/03/21 at 17:04; Stop 08/03/21 at 17:04; Status DC Acetaminophen (Tylenol Supp) 650 mg PRN Q6HRS PRN DC MILD PAIN / TEMP > 100.3'F Last administered on 08/04/21at 20:25; Start 08/03/21 at 20:45 Acetaminophen (Tylenol) 650 mg PRN Q6HRS PRN PEG MILD PAIN / TEMP > 100.3'F; Start 08/03/21 at 20:45 Vasopressin 20 unit/Dextrose 101 ml @ 12 mls/hr CONT PRN IV SEE I/O RECORD Last administered on 08/08/21at 22:04; Start 08/04/21 at 03:45 Norepinephrine Bitartrate 32 mg/ Dextrose 250 ml @ 3.492 mls/ hr CONT PRN IV SEE I/O RECORD Last administered on 08/07/21at 02:12; Start 08/04/21 at 05:30 Phenylephrine HCl 50 mg/Sodium Chloride 255 ml @ 11.399 mls/ hr CONT PRN IV PER PROTOCOL Last administered on 08/05/21at 05:38; Start 08/04/21 at 06:30 Piperacillin Sod/ Tazobactam Sod 2.25 gm/Sodium Chloride 50 ml @ 100 mls/hr Q8HRS IV Last administered on 08/09/21at 06:00; Start 08/04/21 at 08:00 Vancomycin HCl (Vanco Per Pharmacy) 1 each PRN DAILY PRN MC SEE COMMENTS Last administered on 08/06/21at 11:08; Start 08/04/21 at 08:00; Stop 08/07/21 at 09:38; Status DC Famotidine (Pepcid Vial) 20 mg QODAY IVP Last administered on 08/06/21at 09:08; Start 08/04/21 at 09:00; Stop 08/06/21 at 14:25; Status DC Vancomycin HCl (Vanco Per Pharmacy) 1 each PRN DAILY PRN MC SEE COMMENTS; Start 08/04/21 at 08:00; Status UNV Piperacillin Sod/ Tazobactam Sod 2.25 gm/Sodium Chloride 50 ml @ 100 mls/hr Q6HRS IV ; Start 08/04/21 at 12:00; Status UNV Ciprofloxacin/ Dextrose 200 ml @ 200 mls/hr DAILY IV Last administered on 08/04/21at 11:38; Start 08/04/21 at 09:00; Stop 08/05/21 at 09:18; Status DC Lidocaine HCl (Xylocaine-Mpf 1% 5ml Vial) 5 ml 1X ONCE INJ ; Start 08/04/21 at 09:30; Stop 08/04/21 at 09:31; Status DC Lidocaine HCl (Buffered Lidocaine 1%) 3 ml STK-MED ONCE .ROUTE ; Start 08/04/21 at 12:33; Stop 08/04/21 at 12:33; Status DC Iohexol (Omnipaque 240 Mg/ml) 50 ml STK-MED ONCE .ROUTE ; Start 08/04/21 at 12:36; Stop 08/04/21 at 12:36; Status DC Lidocaine HCl (Buffered Lidocaine 1%) 3 ml 1X ONCE IJ Last administered on 08/04/21at 13:15; Start 08/04/21 at 13:30; Stop 08/04/21 at 13:31; Status DC Iohexol (Omnipaque 300 Mg/ml) 50 ml 1X ONCE IART ; Start 08/04/21 at 13:30; Stop 08/04/21 at 13:31; Status DC Vancomycin HCl (Vancomycin Random Level) 1 each 1X ONCE MC Last administered on 08/05/21at 06:14; Start 08/05/21 at 06:00; Stop 08/05/21 at 06:01; Status DC Albumin Human 100 ml @ 100 mls/hr PRN DAILY PRN IV SEE COMMENTS Last administe red on 08/06/21at 14:15; Start 08/05/21 at 08:15 Sodium Chloride 1,000 ml @ 1,000 mls/hr Q1H PRN IV hypotension; Start 08/05/21 at 09:15; Stop 08/05/21 at 15:14; Status DC Sodium Chloride 1,000 ml @ 400 mls/hr Q2H30M PRN IV PATENCY; Start 08/05/21 at 09:15; Stop 08/05/21 at 21:14; Status DC Info (PHARMACY MONITORING -- do not chart) 1 each PRN DAILY PRN MC SEE COMMENTS; Start 08/05/21 at 09:15; Status Cancel Vancomycin HCl 500 mg/Sodium Chloride 100 ml @ 100 mls/hr QTUTHSA IV Last administered on 08/05/21at 15:59; Start 08/05/21 at 16:00; Stop 08/07/21 at 09:38; Status DC Heparin Sodium (Porcine) (Heparin Sodium) 5,000 unit Q12HR SQ Last administered on 08/08/21at 21:59; Start 08/05/21 at 11:00 Dextrose (Dextrose 50%-Water Syringe) 25 gm STK-MED ONCE IV ; Start 08/05/21 at 12:45; Stop 08/05/21 at 12:45; Status DC Dextrose (Dextrose 50%-Water Syringe) 12.5 gm PRN Q15MIN PRN IV SEE COMMENTS Last administered on 08/06/21at 17:47; Start 08/05/21 at 13:00 Magnesium Sulfate 50 ml @ 25 mls/hr 1X ONCE IV Last administered on 08/05/21at 16:59; Start 08/05/21 at 16:30; Stop 08/05/21 at 18:29; Status DC Iohexol (Omnipaque 300 Mg/ml) 60 ml 1X ONCE IV Last administered on 08/06/21at 09:30; Start 08/06/21 at 09:30; Stop 08/06/21 at 09:31; Status DC Info (CONTRAST GIVEN -- Rx MONITORING) 1 each PRN DAILY PRN MC SEE COMMENTS; Start 08/06/21 at 09:45; Stop 08/08/21 at 09:44; Status DC Aspirin (Aspirin Chewable) 81 mg DAILYWBKFT PO Last administered on 08/08/21at 09:04; Start 08/06/21 at 11:45 Atorvastatin Calcium (Lipitor) 20 mg QHS PO Last administered on 08/07/21at 21:24; Start 08/06/21 at 21:00 Sodium Chloride 1,000 ml @ 1,000 mls/hr Q1H PRN IV hypotension; Start 08/06/21 at 12:00; Stop 08/06/21 at 17:59; Status DC Sodium Chloride 1,000 ml @ 400 mls/hr Q2H30M PRN IV PATENCY; Start 08/06/21 at 12:00; Stop 08/06/21 at 23:59; Status DC Info (PHARMACY MONITORING -- do not chart) 1 each PRN DAILY PRN MC SEE COMMENTS; Start 08/06/21 at 12:00; Status UNV Info (Tpn Per Pharmacy) 1 each PRN DAILY PRN MC SEE COMMENTS Last administered on 08/09/21at 09:45; Start 08/06/21 at 12:30 Sodium Chloride 90 meq/Potassium Chloride 20 meq/ Calcium Gluconate 10 meq/ Multivitamins 10 ml/Zinc/Copper/ Manganese/ Selenium 1 ml/ Total Parenteral Nutrition/Amino Acids/Dextrose/ Fat Emulsion Intravenous 1,200 ml @ 50 mls/hr TPN CONT IV Last administered on 08/06/21at 21:58; Start 08/06/21 at 22:00; Stop 08/07/21 at 21:59; Status DC Pantoprazole Sodium (PROTONIX VIAL for IV PUSH) 40 mg DAILYAC IVP Last administered on 08/08/21at 09:04; Start 08/06/21 at 15:00 Sodium Chloride 1,000 ml @ 1,000 mls/hr Q1H PRN IV hypotension; Start 08/07/21 at 05:30; Stop 08/07/21 at 11:29; Status DC Albumin Human 200 ml @ 200 mls/hr 1X PRN PRN IV Hypotension; Start 08/07/21 at 05:30; Stop 08/07/21 at 11:29; Status DC Sodium Chloride (Normal Saline Flush) 10 ml 1X PRN PRN IV AP catheter pack; Start 08/07/21 at 05:30; Stop 08/08/21 at 05:29; Status DC Sodium Chloride (Normal Saline Flush) 10 ml 1X PRN PRN IV [employer] catheter pack; Start 08/07/21 at 05:30; Stop 08/08/21 at 05:29; Status DC Sodium Chloride 1,000 ml @ 400 mls/hr Q2H30M PRN IV PATENCY; Start 08/07/21 at 05:30; Stop 08/07/21 at 17:29; Status DC Info (PHARMACY MONITORING -- do not chart) 1 each PRN DAILY PRN MC SEE COMMENTS; Start 08/07/21 at 05:30 Info (PHARMACY MONITORING -- do not chart) 1 each PRN DAILY PRN MC SEE COMMENTS; Start 08/07/21 at 05:30; Stop 08/07/21 at 05:28; Status DC Sodium Chloride 90 meq/Potassium Chloride 20 meq/ Calcium Gluconate 10 meq/ Multivitamins 10 ml/Zinc/Copper/ Manganese/ Selenium 1 ml/ Total Parenteral Nutrition/Amino Acids/Dextrose 1,200 ml @ 50 mls/hr TPN CONT IV ; Start 08/07/21 at 22:00; Stop 08/07/21 at 14:00; Status DC Sodium Chloride 90 meq/Potassium Chloride 20 meq/ Calcium Gluconate 10 meq/ Multivitamins 10 ml/Zinc/Copper/ Manganese/ Selenium 1 ml/ Total Parenteral Nutrition/Amino Acids/Dextrose 1,025 ml @ 42.708 mls/ hr TPN CONT IV ; Start 08/07/21 at 22:00; Stop 08/07/21 at 14:02; Status DC Sodium Chloride 90 meq/Potassium Chloride 20 meq/ Calcium Gluconate 10 meq/ Multivitamins 10 ml/Zinc/Copper/ Manganese/ Selenium 1 ml/ Total Parenteral Nutrition/Amino Acids/Dextrose 1,200 ml @ 50 mls/hr TPN CONT IV Last administered on 08/07/21at 21:26; Start 08/07/21 at 22:00; Stop 08/08/21 at 21:59; Status DC Sodium Phosphate 15 mmol/Sodium Chloride 105 ml @ 105 mls/hr 1X ONCE IV Last administered on 08/08/21at 15:22; Start 08/08/21 at 14:00; Stop 08/08/21 at 14:59; Status DC Sodium Chloride 110 meq/Potassium Chloride 20 meq/ Calcium Gluconate 10 meq/ Multivitamins 10 ml/Zinc/Copper/ Manganese/ Selenium 1 ml/ Total Parenteral Nutrition/Amino Acids/Dextrose 1,200 ml @ 50 mls/hr TPN CONT IV Last administered on 08/08/21at 22:09; Start 08/08/21 at 22:00; Stop 08/09/21 at 21:59 Sodium Chloride 110 meq/Potassium Chloride 20 meq/ Potassium Phosphate 6 mmol/ Calcium Gluconate 5 meq/ Multivitamins 10 ml/Zinc/Copper/ Manganese/ Selenium 1 ml/ Total Parenteral Nutrition/Amino Acids/Dextrose/ Fat Emulsion Intravenous 1,200 ml @ 50 mls/hr TPN CONT IV ; Start 08/09/21 at 22:00; Stop 08/10/21 at 21:59 Active Scripts Active Reported Tums (Calcium Carbonate) 200 Mg Tab.chew 400 Mg PO HS Sensipar (Cinacalcet Hcl) 60 Mg Tablet 1 Tab PO DAILY 30 Days Ferric Citrate 210 Mg Tablet 2 Tab PO TID 30 Days Lasix (Furosemide) 40 Mg Tablet 40 Mg PO BID Renagel (Sevelamer Hcl) 800 Mg Tablet 2 Tab PO TIDWMEALS Kapspargo Sprinkle (Metoprolol Succinate) 50 Mg Cap.spr.24 50 Mg PO DAILY Vitals/I & O Vital Sign - Last 24 Hours 08/08/21 08/08/21 08/08/21 08/08/21 11:54 12:00 12:15 13:00 Temp 99.7 100.0 99.7 100.0 Pulse 94 98 Resp 20 20 B/P (MAP) 108/54 116/54 104/52 Pulse Ox 100 100 100 O2 Delivery Ventilator Ventilator Ventilator 08/08/21 08/08/21 08/08/21 08/08/21 13:15 14:00 14:10 14:15 Temp 99.7 99.7 Pulse 100 Resp 20 B/P (MAP) 100/52 96/50 98/51 Pulse Ox 100 100 O2 Delivery Ventilator Ventilator 08/08/21 08/08/21 08/08/21 08/08/21 15:00 16:00 16:03 17:00 Temp 99.7 99.3 99.3 99.7 99.3 99.3 Pulse 100 100 100 Resp 20 20 20 B/P (MAP) 98/50 98/50 92/50 Pulse Ox 100 100 100 100 O2 Delivery Ventilator Ventilator Ventilator Ventilator 08/08/21 08/08/21 08/08/21 08/08/21 18:00 19:00 20:00 20:00 Temp 99.3 99.5 99.3 99.5 Pulse 100 100 100 Resp 20 20 21 B/P (MAP) 102/52 112/56 117/54 Pulse Ox 99 99 99 O2 Delivery Ventilator Ventilator Ventilator Mechanical Ventilator 08/08/21 08/08/21 08/08/21 08/08/21 20:48 21:00 22:00 23:00 Pulse 100 100 98 Resp 23 B/P (MAP) 110/56 122/59 111/58 Pulse Ox 100 99 98 100 O2 Delivery Ventilator Ventilator Ventilator Ventilator 08/08/21 08/09/21 08/09/21 08/09/21 23:30 00:00 01:00 02:00 Temp 99.3 99.3 Pulse 98 98 98 Resp 23 B/P (MAP) 114/58 116/58 122/60 Pulse Ox 100 98 98 100 O2 Delivery Ventilator Ventilator Ventilator Ventilator 08/09/21 08/09/21 08/09/21 08/09/21 03:00 04:00 04:56 05:00 Temp 99.3 99.3 Pulse 99 99 103 Resp 23 B/P (MAP) 127/61 117/59 117/59 Pulse Ox 100 100 100 100 O2 Delivery Ventilator Ventilator Ventilator O2 Flow Rate 15.0 08/09/21 08/09/21 08/09/21 06:00 08:00 08:16 Pulse 103 Resp 23 B/P (MAP) 121/58 Pulse Ox 100 100 O2 Delivery Mechanical Ventilator Ventilator O2 Flow Rate 15.0 Intake and Output 08/08/21 08/08/21 08/09/21 15:00 23:00 07:00 Intake Total 54 ml 786 ml Output Total 900 ml 0 ml 0 ml Balance -846 ml 786 ml 0 ml Justicifation of Admission Dx: Justifications for Admission: Justification of Admission Dx: N/A REID HERNANDEZ MD Aug 09, 2021 11:04
--- NOTE | 2021-08-09 11:11 | PDOC ---
Infectious Disease Note Subjective: Subjective Patient is intubated sedated Vital Signs: Vital Signs Vital Signs Date Time Temp Pulse Resp B/P (MAP) Pulse Ox O2 Delivery O2 Flow Rate FiO2 08/09/21 08:16 100 Ventilator 08/09/21 06:00 103 23 121/58 15.0 08/09/21 04:00 99.3 99.3 Physical Exam: PHYSICAL EXAM GENERAL: Sedated, orally intubated gentleman, not in distress. VITAL SIGNS: Stable though on vasopressor support HEENT: Both pupils are round and reacting. No conjunctival lesion. NECK: Supple. No JVP. Mouth cannot be visualized. Orally intubated. LUNGS: Decreased breath sounds bilaterally. HEART: S1, S2 regular. No gallop or murmur. ABDOMEN: Soft, nontender. No organomegaly. Suprapubic catheter is now looking good with normal looking urine. EXTREMITIES: No edema, cyanosis. SKIN: Unremarkable. AV shunt in the right upper extremity is unremarkable. NEUROLOGIC: The patient cannot be judged as sedated and intubated. Medications: Inpatient Meds: Medications reviewed. Labs: Lab Laboratory Tests Test 08/09/21 07:15 White Blood Count 12.8 x10^3/uL (4.0-11.0) Red Blood Count 3.12 x10^6/uL (4.30-5.70) Hemoglobin 9.9 g/dL (13.0-17.5) Hematocrit 30.5 % (39.0-53.0) Mean Corpuscular Volume 98 fL (79-100) Mean Corpuscular Hemoglobin 32 pg (25-35) Mean Corpuscular Hemoglobin Concent 33 g/dL (31-37) Red Cell Distribution Width 17.2 % (11.5-14.5) Platelet Count 83 x10^3/uL (140-400) Neutrophils (%) (Auto) 76 % (31-73) Lymphocytes (%) (Auto) 7 % (24-48) Monocytes (%) (Auto) 14 % (0-9) Eosinophils (%) (Auto) 3 % (0-3) Basophils (%) (Auto) 0 % (0-3) Neutrophils # (Auto) 9.7 x10^3/uL (1.8-7.7) Lymphocytes # (Auto) 0.9 x10^3/uL (1.0-4.8) Monocytes # (Auto) 1.8 x10^3/uL (0.0-1.1) Eosinophils # (Auto) 0.4 x10^3/uL (0.0-0.7) Basophils # (Auto) 0.0 x10^3/uL (0.0-0.2) Sodium Level 138 mmol/L (136-145) Potassium Level 3.9 mmol/L (3.5-5.1) Chloride Level 101 mmol/L (98-107) Carbon Dioxide Level 22 mmol/L (21-32) Anion Gap 15 (6-14) Blood Urea Nitrogen 77 mg/dL (8-26) Creatinine 6.2 mg/dL (0.7-1.3) Estimated GFR (Cockcroft-Gault) 9.4 BUN/Creatinine Ratio 12 (6-20) Glucose Level 115 mg/dL (70-99) Calcium Level 8.7 mg/dL (8.5-10.1) Phosphorus Level 2.5 mg/dL (2.6-4.7) Magnesium Level 2.5 mg/dL (1.8-2.4) Total Bilirubin 1.0 mg/dL (0.2-1.0) Aspartate Amino Transf (AST/SGOT) 87 U/L (15-37) Alanine Aminotransferase (ALT/SGPT) 59 U/L (16-63) Alkaline Phosphatase 427 U/L (46-116) Total Protein 7.2 g/dL (6.4-8.2) Albumin 2.3 g/dL (3.4-5.0) Albumin/Globulin Ratio 0.5 (1.0-1.7) Objective: Assessment: MSSA Bacteremia 08/03/2021 Cerebrovascular accident. Encephalopathy. Fever. Complicated urinary tract infection with sepsis. Hypotension. Acute Respiratory failure, requiring intubation. End-stage renal disease, on hemodialysis. Congestive heart failure. History of hypertension. Plan: Plan of Care Continue Zosyn for now Supportive care Follow repeat blood cultures ct chest abd and pelvis noted CT head with frontoparietal infarct repeat bc negative from 08/06/2021 BRYSON VALERIO MD Aug 09, 2021 11:09
--- NOTE | 2021-08-09 11:15 | PDOC ---
PULMONARY PROGRESS NOTES DATE: 08/09/21 TIME: 11:12 Subjective Patient remains unresponsive. He is off sedation for last 48 hours. 35% FiO2 5 of PEEP had HD 08/07 Vitals Vital Signs Date Time Temp Pulse Resp B/P (MAP) Pulse Ox O2 Delivery O2 Flow Rate FiO2 08/09/21 08:16 100 Ventilator 08/09/21 06:00 103 23 121/58 15.0 08/09/21 04:00 99.3 99.3 Comments on vent sedated ros unable to obtain HEENT: Other (nc at perrl nose clear orally intubated neck no lad no thyromegaly) Lungs: Crackles Cardiovascular: S1, S2 Abdomen: Soft, Non-tender Extremities: No Edema Skin: No Rashes Labs Laboratory Tests Test 08/08/21 09:00 08/08/21 11:01 08/09/21 07:15 O2 Saturation 99 % (92-99) Arterial Blood pH 7.45 (7.35-7.45) Arterial Blood pCO2 at Patient Temp 37 mmHg (35-46) Arterial Blood pO2 at Patient Temp 150 mmHg (75-108) Arterial Blood HCO3 25 mmol/L (21-28) Arterial Blood Base Excess 1 mmol/L (-3-3) FiO2 35 Sodium Level 136 mmol/L (136-145) 138 mmol/L (136-145) Potassium Level 4.1 mmol/L (3.5-5.1) 3.9 mmol/L (3.5-5.1) Chloride Level 101 mmol/L (98-107) 101 mmol/L (98-107) Carbon Dioxide Level 27 mmol/L (21-32) 22 mmol/L (21-32) Anion Gap 8 (6-14) 15 (6-14) Blood Urea Nitrogen 51 mg/dL (8-26) 77 mg/dL (8-26) Creatinine 4.8 mg/dL (0.7-1.3) 6.2 mg/dL (0.7-1.3) Estimated GFR (Cockcroft-Gault) 12.6 9.4 Glucose Level 136 mg/dL (70-99) 115 mg/dL (70-99) Calcium Level 8.8 mg/dL (8.5-10.1) 8.7 mg/dL (8.5-10.1) Phosphorus Level 2.0 mg/dL (2.6-4.7) 2.5 mg/dL (2.6-4.7) Magnesium Level 2.4 mg/dL (1.8-2.4) 2.5 mg/dL (1.8-2.4) White Blood Count 12.8 x10^3/uL (4.0-11.0) Red Blood Count 3.12 x10^6/uL (4.30-5.70) Hemoglobin 9.9 g/dL (13.0-17.5) Hematocrit 30.5 % (39.0-53.0) Mean Corpuscular Volume 98 fL (79-100) Mean Corpuscular Hemoglobin 32 pg (25-35) Mean Corpuscular Hemoglobin Concent 33 g/dL (31-37) Red Cell Distribution Width 17.2 % (11.5-14.5) Platelet Count 83 x10^3/uL (140-400) Neutrophils (%) (Auto) 76 % (31-73) Lymphocytes (%) (Auto) 7 % (24-48) Monocytes (%) (Auto) 14 % (0-9) Eosinophils (%) (Auto) 3 % (0-3) Basophils (%) (Auto) 0 % (0-3) Neutrophils # (Auto) 9.7 x10^3/uL (1.8-7.7) Lymphocytes # (Auto) 0.9 x10^3/uL (1.0-4.8) Monocytes # (Auto) 1.8 x10^3/uL (0.0-1.1) Eosinophils # (Auto) 0.4 x10^3/uL (0.0-0.7) Basophils # (Auto) 0.0 x10^3/uL (0.0-0.2) BUN/Creatinine Ratio 12 (6-20) Total Bilirubin 1.0 mg/dL (0.2-1.0) Aspartate Amino Transf (AST/SGOT) 87 U/L (15-37) Alanine Aminotransferase (ALT/SGPT) 59 U/L (16-63) Alkaline Phosphatase 427 U/L (46-116) Total Protein 7.2 g/dL (6.4-8.2) Albumin 2.3 g/dL (3.4-5.0) Albumin/Globulin Ratio 0.5 (1.0-1.7) Laboratory Tests Test 08/09/21 07:15 White Blood Count 12.8 x10^3/uL (4.0-11.0) Red Blood Count 3.12 x10^6/uL (4.30-5.70) Hemoglobin 9.9 g/dL (13.0-17.5) Hematocrit 30.5 % (39.0-53.0) Mean Corpuscular Volume 98 fL (79-100) Mean Corpuscular Hemoglobin 32 pg (25-35) Mean Corpuscular Hemoglobin Concent 33 g/dL (31-37) Red Cell Distribution Width 17.2 % (11.5-14.5) Platelet Count 83 x10^3/uL (140-400) Neutrophils (%) (Auto) 76 % (31-73) Lymphocytes (%) (Auto) 7 % (24-48) Monocytes (%) (Auto) 14 % (0-9) Eosinophils (%) (Auto) 3 % (0-3) Basophils (%) (Auto) 0 % (0-3) Neutrophils # (Auto) 9.7 x10^3/uL (1.8-7.7) Lymphocytes # (Auto) 0.9 x10^3/uL (1.0-4.8) Monocytes # (Auto) 1.8 x10^3/uL (0.0-1.1) Eosinophils # (Auto) 0.4 x10^3/uL (0.0-0.7) Basophils # (Auto) 0.0 x10^3/uL (0.0-0.2) Sodium Level 138 mmol/L (136-145) Potassium Level 3.9 mmol/L (3.5-5.1) Chloride Level 101 mmol/L (98-107) Carbon Dioxide Level 22 mmol/L (21-32) Anion Gap 15 (6-14) Blood Urea Nitrogen 77 mg/dL (8-26) Creatinine 6.2 mg/dL (0.7-1.3) Estimated GFR (Cockcroft-Gault) 9.4 BUN/Creatinine Ratio 12 (6-20) Glucose Level 115 mg/dL (70-99) Calcium Level 8.7 mg/dL (8.5-10.1) Phosphorus Level 2.5 mg/dL (2.6-4.7) Magnesium Level 2.5 mg/dL (1.8-2.4) Total Bilirubin 1.0 mg/dL (0.2-1.0) Aspartate Amino Transf (AST/SGOT) 87 U/L (15-37) Alanine Aminotransferase (ALT/SGPT) 59 U/L (16-63) Alkaline Phosphatase 427 U/L (46-116) Total Protein 7.2 g/dL (6.4-8.2) Albumin 2.3 g/dL (3.4-5.0) Albumin/Globulin Ratio 0.5 (1.0-1.7) Medications Active Scripts Medications Dose Route/Sig Max Daily Dose Days Date Category Tums (Calcium Carbonate) 200 Mg Tab.chew 400 Mg PO HS 04/19/21 Reported Sensipar (Cinacalcet Hcl) 60 Mg Tablet 1 Tab PO DAILY 30 04/19/21 Reported Ferric Citrate 210 Mg Tablet 2 Tab PO TID 30 04/19/21 Reported Lasix (Furosemide) 40 Mg Tablet 40 Mg PO BID 04/19/21 Reported Renagel (Sevelamer Hcl) 800 Mg Tablet 2 Tab PO TIDWMEALS 01/18/21 Reported Kapspargo Sprinkle (Metoprolol Succinate) 50 Mg Cap.spr.24 50 Mg PO DAILY 01/18/21 Reported Comments Chest x-ray reviewed dated 08/09/2021. Faint bilateral infiltrates CT chest reviewed dated 08/06/2021. Small basal pleural effusion with associated atelectasis. No definite consolidation seen Impression . IMPRESSION: 1. Acute hypoxemic respiratory failure, multifactorial. 2. Septic shock./Urosepsis 3. Fever related to above. 4. SARS-CoV-2 testing negative. 5. End-stage renal disease, on hemodialysis. 6. Possible stroke. 7. mssa bactremia 8. Encephalopathy. Off sedation but still nonresponsive. Could be related to stroke. Other comorbidities including end-stage renal disease, hypertension, chronic obstructive pulmonary disease, gastroesophageal reflux, ischemic cardiomyopathy. Plan . Updated 08/09 Continue vent support assist-control mode. setting reviewed repeat bcx neg abx per id vasopressor to keep map 65 complicated urinary tract infection with septic shock. mssa bactremia Follow ID recommendations Hemodialysis per nephrology Follow blood cultures DVT GI prophylaxis CT chest reviewed. No focal consolidation. Small basal effusion with associated atelectasis. discussed w rn rt Off sedation for 48 hours. If there is not wake up in the next few days, may need an MRI. Discussed with RN and RT Updated 08/08 Continue vent support assist-control mode. setting reviewed repeat bcx neg abx per id vasopressor to keep map 65 complicated urinary tract infection with septic shock. mssa bactremia Follow ID recommendations Hemodialysis per nephrology Follow blood cultures DVT GI prophylaxis CT chest reviewed. No focal consolidation. Small basal effusion with associated atelectasis. discussed w rn rt RUDI DAVALOS MD Aug 09, 2021 11:15
--- NOTE | 2021-08-09 11:28 | NUR ---
SS following up with discharge planning. SS reviewed pt chart and discussed with pt RN. Pt is currently on the vent at 35%. COVID19 negative. Pt on TPN and IV Zosyn. Hemodialysis. Not ready. SS will continue to follow for discharge planning.
--- NOTE | 2021-08-09 11:33 | PDOC ---
[facility] [facility] PROGRESS NOTE Date of Service DOS: DATE: 08/09/21 TIME: 11:30 Chief Complaint Chief Complaint Respiratory failure requiring mechanical ventilation Severe sepsis Possible stroke Suprapubic catheter; CHF; COPD; hypertension; pneumonia, End-stage renal disease, on dialysis; history of peritonitis dialysis as well left kidney stents; suprapubic catheter. History of Present Illness History of Present Illness 08/09/2021 Patient seen and examined in the ICU He remains on the ventilator AC/20/500/30 5% with 5 of PEEP Has IV TPN Fentanyl is been off for a day and Versed to been off for 2 days but he still not waking up Discussed with RN Chart reviewed He remains very critically ill 08/08/2021 Patient seen and examined in the ICU He remains on the ventilator AC/20/500/30 5% with 5 of PEEP He has a mitt on the right hand Left arm with art line SCDs in place OG to suction Has TPN hanging Sedated with fentanyl Has IV Levophed and IV vasopressin hanging Chart reviewed Discussed with RN He remains extremely critically ill 08/07/2021 Patient seen and examined in the ICU He remains on the vent AC/20/500/30 5% with 5 of PEEP Has art line in place SCDs in place Has OG clamped On IV TPN Sedated with fentanyl Versed Has IV Levophed and vasopressin hanging Discussed with RN Chart reviewed He remains extremely critically ill 08/06/2021 Patient seen and examined in the ICU CT of the head showing a small stroke CT of the abdomen showing possible obstruction Discussed with RN Chart reviewed He is still intubated AC///1 100% with 10 of PEEP OG feeds are running but we are going to stop that and start some TPN if okay with nephrology Sedated with propofol Versed and fentanyl and paralyzed with vecuronium He remains extremely critically ill 08/05/2021 Patient seen and examined in the ICU He is currently on dialysis Discussed with RN He is still on the vent AC//500/30 5% with 5 of PEEP Has SCDs in place [place] to bedside drainage Sedated with fentanyl and Versed Has IV Levophed hanging Also on IV neomycin Also on IV vasopressin Extremely critically ill 08/04/2021 Patient seen and examined in the ICU He is mechanically ventilated AC/500/40 5% with 5 of PEEP He is extremely hypotensive 63/40 currently despite having Levophed and vasopressin Discussed with RN were going to start Michael-Synephrine Tachycardic at 117 bpm Patient is extremely cool and clammy Had a fever to 103.5 last night currently at 102.9 He is extremely critically ill Vitals/I&O Vitals/I&O: Vital Signs Date Time Temp Pulse Resp B/P (MAP) Pulse Ox O2 Delivery O2 Flow Rate FiO2 08/09/21 08:16 100 Ventilator 08/09/21 06:00 103 23 121/58 15.0 08/09/21 04:00 99.3 99.3 I & O 08/08/21 08/08/21 08/09/21 15:00 23:00 07:00 Intake Total 54 ml 786 ml Output Total 900 ml 0 ml 0 ml Balance -846 ml 786 ml 0 ml Physical Exam Physical Exam: GENERAL: Sedated, orally intubated gentleman, not in distress. VITAL SIGNS: Stable though on vasopressor support HEENT: Both pupils are round and reacting. No conjunctival lesion. NECK: Supple. No JVP. Mouth cannot be visualized. Orally intubated. LUNGS: Decreased breath sounds bilaterally. HEART: S1, S2 regular. No gallop or murmur. ABDOMEN: Soft, nontender. No organomegaly. Suprapubic catheter is now looking good with normal looking urine. EXTREMITIES: No edema, cyanosis. SKIN: Unremarkable. AV shunt in the right upper extremity is unremarkable. NEUROLOGIC: The patient cannot be judged as sedated and intubated. General: Other (Intubated) Heart: Regular rate Lungs: Crackles Abdomen: Normal bowel sounds Extremities: No edema Skin: No significant lesion Labs Labs: Laboratory Tests Test 08/09/21 07:15 White Blood Count 12.8 x10^3/uL (4.0-11.0) Red Blood Count 3.12 x10^6/uL (4.30-5.70) Hemoglobin 9.9 g/dL (13.0-17.5) Hematocrit 30.5 % (39.0-53.0) Mean Corpuscular Volume 98 fL (79-100) Mean Corpuscular Hemoglobin 32 pg (25-35) Mean Corpuscular Hemoglobin Concent 33 g/dL (31-37) Red Cell Distribution Width 17.2 % (11.5-14.5) Platelet Count 83 x10^3/uL (140-400) Neutrophils (%) (Auto) 76 % (31-73) Lymphocytes (%) (Auto) 7 % (24-48) Monocytes (%) (Auto) 14 % (0-9) Eosinophils (%) (Auto) 3 % (0-3) Basophils (%) (Auto) 0 % (0-3) Neutrophils # (Auto) 9.7 x10^3/uL (1.8-7.7) Lymphocytes # (Auto) 0.9 x10^3/uL (1.0-4.8) Monocytes # (Auto) 1.8 x10^3/uL (0.0-1.1) Eosinophils # (Auto) 0.4 x10^3/uL (0.0-0.7) Basophils # (Auto) 0.0 x10^3/uL (0.0-0.2) Sodium Level 138 mmol/L (136-145) Potassium Level 3.9 mmol/L (3.5-5.1) Chloride Level 101 mmol/L (98-107) Carbon Dioxide Level 22 mmol/L (21-32) Anion Gap 15 (6-14) Blood Urea Nitrogen 77 mg/dL (8-26) Creatinine 6.2 mg/dL (0.7-1.3) Estimated GFR (Cockcroft-Gault) 9.4 BUN/Creatinine Ratio 12 (6-20) Glucose Level 115 mg/dL (70-99) Calcium Level 8.7 mg/dL (8.5-10.1) Phosphorus Level 2.5 mg/dL (2.6-4.7) Magnesium Level 2.5 mg/dL (1.8-2.4) Total Bilirubin 1.0 mg/dL (0.2-1.0) Aspartate Amino Transf (AST/SGOT) 87 U/L (15-37) Alanine Aminotransferase (ALT/SGPT) 59 U/L (16-63) Alkaline Phosphatase 427 U/L (46-116) Total Protein 7.2 g/dL (6.4-8.2) Albumin 2.3 g/dL (3.4-5.0) Albumin/Globulin Ratio 0.5 (1.0-1.7) Assessment and Plan Assessmemt and Plan Problems Medical Problems: (1) Hypoxia Status: Acute (2) Respiratory failure Status: Acute (3) Sepsis Status: Acute (4) Stroke Status: Acute (5) UTI (urinary tract infection) Status: Acute Respiratory failure requiring mechanical ventilation Right frontal lobe stroke Severe sepsis Small stroke Suprapubic catheter; CHF; COPD; hypertension; pneumonia, End-stage renal disease, on dialysis; history of peritonitis dialysis as well left kidney stents; suprapubic catheter. Plan ICU monitoring Continue holding sedation Continue mechanical ventilation Vent weaning IV antibiotics per infectious disease Trend labs Home meds when possible Lovenox 40 mg a day for DVT prophylaxis we will continue SCDs as well Dialysis per nephrology Nutritional support He remains very critically ill Appreciate subspecialist input Prognosis extremely guarded probably terminal CC time 33 minutes Comment Review of Relevant I have reviewed the following items allyson (where applicable) has been applied. Medications: Current Medications Medications (Trade) Dose Ordered Sig/Kevin Route PRN Reason Start Time Stop Time Status Last Admin Dose Admin Sodium Phosphate 15 mmol/Sodium Chloride 105 ml @ 105 mls/hr 1X ONCE IV 08/08/21 14:00 08/08/21 14:59 DC 08/08/21 15:22 Sodium Chloride 110 meq/Potassium Chloride 20 meq/ Calcium Gluconate 10 meq/ Multivitamins 10 ml/Zinc/Copper/ Manganese/ Selenium 1 ml/ Total Parenteral Nutrition/Amino Acids/Dextrose 1,200 ml @ 50 mls/hr TPN CONT IV 08/08/21 22:00 08/09/21 21:59 08/08/21 22:09 Justifications for Admission Other Justification DEVAN PERALES III DO Aug 09, 2021 11:32
--- NOTE | 2021-08-09 15:31 | RAD ---
EXAMINATION: NON-TUNNELED CENTRAL VENOUS CATHETER MANIPULATION and adjustment (CPT add?) fluoroscopy guidance (CPT 14160 ). HISTORY: Central catheter placement in the ICU. Chest x-ray demonstrated the catheter to be malpositi oned directed into the left subclavian vein. Patient presents to IR for adjustment Flouroscopy-Radiation exposure: Kerma Air Product (in mGycm2): 1 SEDATION: None. CONSENT: Informed consent was obtained. The risks, benefits, potential complications and alternatives were reviewed and all questions answered. ESTIMATED BLOOD LOSS: Less than 20 mL. COMPLICATIONS: None. PROCEDURE: Prior to beginning the procedure, [place] Protocol was used to confirm the patient's identity and p lanned procedure. Maximum sterile barriers technique including cap, mask, hand hygiene, sterile glov es, sterile gown, large sterile drape and cutaneous antisepsis were used. Prior to the procedure, imaging with fluoroscopy demonstrates the right central line to be malpositio rashad into the left subclavian vein. The catheter is a gently and partially pulled out and wire is plac ed correcting the positioning of the catheter, then the catheter was a advanced over the wire with th e tip of the catheter eventually placed at the cavoatrial junction.. The catheter was flushed and secured in place. A sterile dressing was applied. FINDINGS: Fluoroscopy confirms the location of the tip of the catheter near the cavoatrial junction. No immediate complications. IMPRESSION: Malposition of central venous catheter, with the successful adjustment under fluoroscopic guidance. The catheter can be used immediately. Electronically signed by: Oc Patricia MD (08/09/2021 3:29 PM) [id number]
[2021-08-09] MEDS ORDERED: ACETAMINOPHEN 160 MG/5 ML ORAL.SUSP. PO PRN (20:30)
[2021-08-09] MEDS: ATORVASTATIN CALCIUM 20 MG TABLET PO SCH (21:00)
[2021-08-09] MEDS ORDERED: DEXTROSE 70% IV SCH (22:00)
[2021-08-09] MEDS ORDERED: AMINO ACID IV SCH (22:00)
[2021-08-09] MEDS ORDERED: [UNRECOGNIZED DRUG - OTHER] IV SCH (22:00)
[2021-08-09] MEDS ORDERED: TOTAL PARENTERAL NUTRITION IV SCH (22:00)
[2021-08-10] VITALS (32 sets, daily range): BP systolic 72–138; BP diastolic 36–82
[2021-08-10] MEDS: PIPERACILLIN/TAZOBACTAM 2.25 GM in IV NORMAL SALINE 50ML 50 ML IV SCH ×2 (05:32→13:29)
[2021-08-10 06:16] LABS: CALCIUM 8.8 mg/dL (8.5-10.1); CREATININE 7.5 mg/dL (0.7-1.3); GFR 7.5; PHOSPHORUS 2.8 mg/dL (2.6-4.7); POTASSIUM 4.1 mmol/L (3.5-5.1)
[2021-08-10 07:33] LABS: BASO # 0.1 x10^3/uL (0.0-0.2); BASO % 0 % (0-3); EOS # 0.7 x10^3/uL (0.0-0.7); EOS % 5 % (0-3); HEMATOCRIT 31.5 % (39.0-53.0); HEMOGLOBIN 10.3 g/dL (13.0-17.5); LYMPH # 1.2 x10^3/uL (1.0-4.8); LYMPH % 8 % (24-48); MEAN CORPUSCULAR HEMOGLOBIN 32 pg (25-35); MEAN CORPUSCULAR HGB CONC 33 g/dL (31-37); MEAN CORPUSCULAR VOLUME 98 fL (79-100); MONO # 1.8 x10^3/uL (0.0-1.1); MONO % 12 % (0-9); NEUT # 11.8 x10^3/uL (1.8-7.7); NEUT % 76 % (31-73); PLATELET COUNT 118 x10^3/uL (140-400); RED BLOOD COUNT 3.23 x10^6/uL (4.30-5.70); RED CELL DISTRIBUTION WIDTH 17.3 % (11.5-14.5); WHITE BLOOD COUNT 15.5 x10^3/uL (4.0-11.0)
[2021-08-10] MEDS ORDERED: DIALYSIS PATIENT. MC PRN (07:45)
[2021-08-10] MEDS ORDERED: IV NORMAL SALINE 1000ML BAG 1,000 ML IV PRN ×2 (07:45)
[2021-08-10 08:18] LABS: BASE EXCESS ABG -5 mmol/L (-3-3); HCO3 ABG 19 mmol/L (21-28); PCO2 ABG 29 mmHg (35-46); PO2 ABG 147 mmHg (75-108); SAT O2 ABG 99 % (92-99)
--- NOTE | 2021-08-10 08:27 | PDOC ---
PROGRESS NOTES Date of Service DATE: 08/10/21 TIME: 08:25 Assessment Problems Medical Problems: (1) Hypoxia Status: Acute (2) Respiratory failure Status: Acute (3) Sepsis Status: Acute (4) Stroke Status: Acute (5) UTI (urinary tract infection) Status: Acute Right frontoparietal stroke now has anisocoria Fever, sepsis requiring pressors due to hypotension, respiratory failure, end- stage renal disease, congestive heart failure, cardiomyopathy status-post pacemaker Note normal hemoglobin A1c and lipid profile Plan Repeat head CT Treat medical issues Aspirin and statin Subjective None Objective Vital Signs Date Time Temp Pulse Resp B/P (MAP) Pulse Ox O2 Delivery O2 Flow Rate FiO2 08/10/21 06:05 98 24 121/56 99 Ventilator 08/10/21 04:00 97.9 97.9 Intake and Output 08/10/21 07:00 Intake Total 1985 ml Output Total 200 ml Balance 1785 ml Intake IV Total 1985 ml Output Urine Total 0 ml Gastric Drainage Total 200 ml PHYSICAL EXAM Off sedation, on ventilator Pupils react, left pupil larger than right EOMI. CN: no focal findings. Muscle tone: normal. Muscle strength: No response to pain, except withdraws toes more on the right than the left DTR: 2+ Plantar reflex: Silent Gait: not examined in bed. Sensory exam: Not cooperative. Cerebellar: not cooperative Review of Relevant I have reviewed the following items allyson (where applicable) has been applied. Labs Laboratory Tests Test 08/08/21 09:00 08/08/21 11:01 08/09/21 07:15 08/09/21 17:41 O2 Saturation 99 % (92-99) Arterial Blood pH 7.45 (7.35-7.45) Arterial Blood pCO2 at Patient Temp 37 mmHg (35-46) Arterial Blood pO2 at Patient Temp 150 mmHg (75-108) Arterial Blood HCO3 25 mmol/L (21-28) Arterial Blood Base Excess 1 mmol/L (-3-3) FiO2 35 Sodium Level 136 mmol/L (136-145) 138 mmol/L (136-145) Potassium Level 4.1 mmol/L (3.5-5.1) 3.9 mmol/L (3.5-5.1) Chloride Level 101 mmol/L (98-107) 101 mmol/L (98-107) Carbon Dioxide Level 27 mmol/L (21-32) 22 mmol/L (21-32) Anion Gap 8 (6-14) 15 (6-14) Blood Urea Nitrogen 51 mg/dL (8-26) 77 mg/dL (8-26) Creatinine 4.8 mg/dL (0.7-1.3) 6.2 mg/dL (0.7-1.3) Estimated GFR (Cockcroft-Gault) 12.6 9.4 Glucose Level 136 mg/dL (70-99) 115 mg/dL (70-99) Calcium Level 8.8 mg/dL (8.5-10.1) 8.7 mg/dL (8.5-10.1) Phosphorus Level 2.0 mg/dL (2.6-4.7) 2.5 mg/dL (2.6-4.7) Magnesium Level 2.4 mg/dL (1.8-2.4) 2.5 mg/dL (1.8-2.4) White Blood Count 12.8 x10^3/uL (4.0-11.0) Red Blood Count 3.12 x10^6/uL (4.30-5.70) Hemoglobin 9.9 g/dL (13.0-17.5) Hematocrit 30.5 % (39.0-53.0) Mean Corpuscular Volume 98 fL (79-100) Mean Corpuscular Hemoglobin 32 pg (25-35) Mean Corpuscular Hemoglobin Concent 33 g/dL (31-37) Red Cell Distribution Width 17.2 % (11.5-14.5) Platelet Count 83 x10^3/uL (140-400) Neutrophils (%) (Auto) 76 % (31-73) Lymphocytes (%) (Auto) 7 % (24-48) Monocytes (%) (Auto) 14 % (0-9) Eosinophils (%) (Auto) 3 % (0-3) Basophils (%) (Auto) 0 % (0-3) Neutrophils # (Auto) 9.7 x10^3/uL (1.8-7.7) Lymphocytes # (Auto) 0.9 x10^3/uL (1.0-4.8) Monocytes # (Auto) 1.8 x10^3/uL (0.0-1.1) Eosinophils # (Auto) 0.4 x10^3/uL (0.0-0.7) Basophils # (Auto) 0.0 x10^3/uL (0.0-0.2) BUN/Creatinine Ratio 12 (6-20) Total Bilirubin 1.0 mg/dL (0.2-1.0) Aspartate Amino Transf (AST/SGOT) 87 U/L (15-37) Alanine Aminotransferase (ALT/SGPT) 59 U/L (16-63) Alkaline Phosphatase 427 U/L (46-116) Total Protein 7.2 g/dL (6.4-8.2) Albumin 2.3 g/dL (3.4-5.0) Albumin/Globulin Ratio 0.5 (1.0-1.7) Glucose (Fingerstick) 103 mg/dL (70-99) Test 08/10/21 05:30 White Blood Count 15.5 x10^3/uL (4.0-11.0) Red Blood Count 3.23 x10^6/uL (4.30-5.70) Hemoglobin 10.3 g/dL (13.0-17.5) Hematocrit 31.5 % (39.0-53.0) Mean Corpuscular Volume 98 fL (79-100) Mean Corpuscular Hemoglobin 32 pg (25-35) Mean Corpuscular Hemoglobin Concent 33 g/dL (31-37) Red Cell Distribution Width 17.3 % (11.5-14.5) Platelet Count 118 x10^3/uL (140-400) Neutrophils (%) (Auto) 76 % (31-73) Lymphocytes (%) (Auto) 8 % (24-48) Monocytes (%) (Auto) 12 % (0-9) Eosinophils (%) (Auto) 5 % (0-3) Basophils (%) (Auto) 0 % (0-3) Neutrophils # (Auto) 11.8 x10^3/uL (1.8-7.7) Lymphocytes # (Auto) 1.2 x10^3/uL (1.0-4.8) Monocytes # (Auto) 1.8 x10^3/uL (0.0-1.1) Eosinophils # (Auto) 0.7 x10^3/uL (0.0-0.7) Basophils # (Auto) 0.1 x10^3/uL (0.0-0.2) Sodium Level 137 mmol/L (136-145) Potassium Level 4.1 mmol/L (3.5-5.1) Chloride Level 100 mmol/L (98-107) Carbon Dioxide Level 19 mmol/L (21-32) Anion Gap 18 (6-14) Blood Urea Nitrogen 108 mg/dL (8-26) Creatinine 7.5 mg/dL (0.7-1.3) Estimated GFR (Cockcroft-Gault) 7.5 Glucose Level 107 mg/dL (70-99) Calcium Level 8.8 mg/dL (8.5-10.1) Phosphorus Level 2.8 mg/dL (2.6-4.7) Laboratory Tests Test 08/09/21 17:41 08/10/21 05:30 Glucose (Fingerstick) 103 mg/dL (70-99) White Blood Count 15.5 x10^3/uL (4.0-11.0) Red Blood Count 3.23 x10^6/uL (4.30-5.70) Hemoglobin 10.3 g/dL (13.0-17.5) Hematocrit 31.5 % (39.0-53.0) Mean Corpuscular Volume 98 fL (79-100) Mean Corpuscular Hemoglobin 32 pg (25-35) Mean Corpuscular Hemoglobin Concent 33 g/dL (31-37) Red Cell Distribution Width 17.3 % (11.5-14.5) Platelet Count 118 x10^3/uL (140-400) Neutrophils (%) (Auto) 76 % (31-73) Lymphocytes (%) (Auto) 8 % (24-48) Monocytes (%) (Auto) 12 % (0-9) Eosinophils (%) (Auto) 5 % (0-3) Basophils (%) (Auto) 0 % (0-3) Neutrophils # (Auto) 11.8 x10^3/uL (1.8-7.7) Lymphocytes # (Auto) 1.2 x10^3/uL (1.0-4.8) Monocytes # (Auto) 1.8 x10^3/uL (0.0-1.1) Eosinophils # (Auto) 0.7 x10^3/uL (0.0-0.7) Basophils # (Auto) 0.1 x10^3/uL (0.0-0.2) Sodium Level 137 mmol/L (136-145) Potassium Level 4.1 mmol/L (3.5-5.1) Chloride Level 100 mmol/L (98-107) Carbon Dioxide Level 19 mmol/L (21-32) Anion Gap 18 (6-14) Blood Urea Nitrogen 108 mg/dL (8-26) Creatinine 7.5 mg/dL (0.7-1.3) Estimated GFR (Cockcroft-Gault) 7.5 Glucose Level 107 mg/dL (70-99) Calcium Level 8.8 mg/dL (8.5-10.1) Phosphorus Level 2.8 mg/dL (2.6-4.7) Microbiology 08/06/21 Blood Culture - Preliminary, Resulted NO GROWTH AFTER 3 DAYS 08/03/21 Urine Culture - Final, Complete Medications Current Medications Sodium Chloride 1,000 ml @ 1,000 mls/hr 1X ONCE IV Last administered on 08/03/21at 11:26; Start 08/03/21 at 11:15; Stop 08/03/21 at 12:14; Status DC Piperacillin Sod/ Tazobactam Sod 4.5 gm/Sodium Chloride 100 ml @ 200 mls/hr 1X ONCE IV Last administered on 08/03/21at 11:26; Start 08/03/21 at 11:15; Stop 08/03/21 at 11:44; Status DC Vancomycin HCl 1.5 gm/Sodium Chloride 500 ml @ 250 mls/hr 1X ONCE IV Last administered on 08/03/21at 12:00; Start 08/03/21 at 12:00; Stop 08/03/21 at 13:59; Status DC Iohexol (Omnipaque 300 Mg/ml) 75 ml 1X ONCE IV Last administered on 08/03/21at 11:29; Start 08/03/21 at 11:15; Stop 08/03/21 at 11:16; Status DC Info (CONTRAST GIVEN -- Rx MONITORING) 1 each PRN DAILY PRN MC SEE COMMENTS; Start 08/03/21 at 11:15; Stop 08/05/21 at 11:14; Status DC Fentanyl Citrate 30 ml @ 2.5 mls/hr CONT PRN IV SEE PROTOCOL; Start 08/03/21 at 12:15; Status Cancel Propofol 100 ml @ 2.235 mls/ hr CONT PRN IV PER PROTOCOL Last administered on 08/03/21at 12:31; Start 08/03/21 at 12:15; Stop 08/04/21 at 07:38; Status DC Chlorhexidine Gluconate (Peridex) 15 ml BID MM ; Start 08/03/21 at 21:00; Status Cancel Glycerin/ Hypromellose/ Polyethylene (Artificial Tears) 1 drop PRN Q1HR PRN OU DRY EYE; Start 08/03/21 at 12:15; Stop 08/03/21 at 21:15; Status DC Dexmedetomidine HCl 400 mcg/ Sodium Chloride 100 ml @ 3.725 mls/ hr CONT PRN IV PER PROTOCOL; Start 08/03/21 at 12:15; Stop 08/03/21 at 21:15; Status DC Midazolam HCl (Versed) 5 mg PRN 1X PRN IVP VENT INDUCTION Last administered on 08/03/21at 14:12; Start 08/03/21 at 12:15; Stop 08/03/21 at 14:12; Status DC Etomidate (Amidate) 10 mg 1X ONCE IV Last administered on 08/03/21at 12:48; Start 08/03/21 at 12:45; Stop 08/03/21 at 12:46; Status DC Rocuronium Cliff (Zemuron) 100 mg 1X ONCE IV Last administered on 08/03/21at 12:45; Start 08/03/21 at 12:45; Stop 08/03/21 at 12:46; Status DC Sodium Chloride 250 ml @ 250 mls/hr 1X ONCE IV Last administered on 08/03/21at 14:21; Start 08/03/21 at 14:30; Stop 08/03/21 at 15:29; Status DC Fentanyl Citrate 30 ml @ 2.5 mls/hr CONT PRN IV SEE PROTOCOL Last administered on 08/08/21at 05:25; Start 08/03/21 at 15:00 Midazolam HCl 100 ml @ 1 mls/hr CONT PRN IV SEE PROTOCOL Last administered on 08/07/21at 00:37; Start 08/03/21 at 15:00 Propofol 100 ml @ 2.235 mls/ hr CONT PRN IV PER PROTOCOL; Start 08/03/21 at 15:00 Vecuronium Cliff (Norcuron Bolus) 6 mg PRN 1X PRN IV VENT INDUCTION; Start 08/03/21 at 15:00; Stop 08/04/21 at 14:59; Status DC Chlorhexidine Gluconate (Peridex) 15 ml BID MM ; Start 08/03/21 at 21:00; Stop 08/04/21 at 19:49; Status DC Glycerin/ Hypromellose/ Polyethylene (Artificial Tears) 1 drop PRN Q1HR PRN OU DRY EYE; Start 08/03/21 at 15:00 Dexmedetomidine HCl 400 mcg/ Sodium Chloride 100 ml @ 3.725 mls/ hr CONT PRN IV PER PROTOCOL; Start 08/03/21 at 15:00 Midazolam HCl (Versed) 5 mg PRN 1X PRN IVP VENT INDUCTION; Start 08/03/21 at 15:00; Stop 08/04/21 at 14:59; Status DC Sodium Chloride 500 ml @ 500 mls/hr 1X PRN PRN IV SEE COMMENTS; Start 08/03/21 at 15:00 Atropine Sulfate (ATROPINE 0.5mg SYRINGE) 0.5 mg PRN Q5MIN PRN IV SEE COMMENTS; Start 08/03/21 at 15:00 Famotidine (Pepcid Vial) 20 mg BID IVP Last administered on 08/03/21at 21:00; Start 08/03/21 at 21:00; Stop 08/04/21 at 07:59; Status DC Norepinephrine Bitartrate 8 mg/ Dextrose 258 ml @ 14.416 mls/ hr CONT PRN IV PER PROTOCOL Last administered on 08/04/21at 03:52; Start 08/03/21 at 15:00; Stop 08/04/21 at 05:29; Status DC Etomidate (Amidate) 20 mg STK-MED ONCE IV ; Start 08/03/21 at 17:04; Stop 08/03/21 at 17:04; Status DC Rocuronium Cliff (Zemuron) 50 mg STK-MED ONCE .ROUTE ; Start 08/03/21 at 17:04; Stop 08/03/21 at 17:04; Status DC Acetaminophen (Tylenol Supp) 650 mg PRN Q6HRS PRN DC MILD PAIN / TEMP > 100.3'F Last administered on 08/04/21at 20:25; Start 08/03/21 at 20:45 Acetaminophen (Tylenol) 650 mg PRN Q6HRS PRN PEG MILD PAIN / TEMP > 100.3'F; Start 08/03/21 at 20:45 Vasopressin 20 unit/Dextrose 101 ml @ 12 mls/hr CONT PRN IV SEE I/O RECORD Last administered on 08/08/21at 22:04; Start 08/04/21 at 03:45 Norepinephrine Bitartrate 32 mg/ Dextrose 250 ml @ 3.492 mls/ hr CONT PRN IV SEE I/O RECORD Last administered on 08/07/21at 02:12; Start 08/04/21 at 05:30 Phenylephrine HCl 50 mg/Sodium Chloride 255 ml @ 11.399 mls/ hr CONT PRN IV PER PROTOCOL Last administered on 08/05/21at 05:38; Start 08/04/21 at 06:30 Piperacillin Sod/ Tazobactam Sod 2.25 gm/Sodium Chloride 50 ml @ 100 mls/hr Q8HRS IV Last administered on 08/10/21at 05:32; Start 08/04/21 at 08:00 Vancomycin HCl (Vanco Per Pharmacy) 1 each PRN DAILY PRN MC SEE COMMENTS Last administered on 08/06/21at 11:08; Start 08/04/21 at 08:00; Stop 08/07/21 at 09:38; Status DC Famotidine (Pepcid Vial) 20 mg QODAY IVP Last administered on 08/06/21at 09:08; Start 08/04/21 at 09:00; Stop 08/06/21 at 14:25; Status DC Vancomycin HCl (Vanco Per Pharmacy) 1 each PRN DAILY PRN MC SEE COMMENTS; Start 08/04/21 at 08:00; Status UNV Piperacillin Sod/ Tazobactam Sod 2.25 gm/Sodium Chloride 50 ml @ 100 mls/hr Q6HRS IV ; Start 08/04/21 at 12:00; Status UNV Ciprofloxacin/ Dextrose 200 ml @ 200 mls/hr DAILY IV Last administered on 08/04/21at 11:38; Start 08/04/21 at 09:00; Stop 08/05/21 at 09:18; Status DC Lidocaine HCl (Xylocaine-Mpf 1% 5ml Vial) 5 ml 1X ONCE INJ ; Start 08/04/21 at 09:30; Stop 08/04/21 at 09:31; Status DC Lidocaine HCl (Buffered Lidocaine 1%) 3 ml STK-MED ONCE .ROUTE ; Start 08/04/21 at 12:33; Stop 08/04/21 at 12:33; Status DC Iohexol (Omnipaque 240 Mg/ml) 50 ml STK-MED ONCE .ROUTE ; Start 08/04/21 at 12:36; Stop 08/04/21 at 12:36; Status DC Lidocaine HCl (Buffered Lidocaine 1%) 3 ml 1X ONCE IJ Last administered on 08/04/21at 13:15; Start 08/04/21 at 13:30; Stop 08/04/21 at 13:31; Status DC Iohexol (Omnipaque 300 Mg/ml) 50 ml 1X ONCE IART ; Start 08/04/21 at 13:30; Stop 08/04/21 at 13:31; Status DC Vancomycin HCl (Vancomycin Random Level) 1 each 1X ONCE MC Last administered on 08/05/21at 06:14; Start 08/05/21 at 06:00; Stop 08/05/21 at 06:01; Status DC Albumin Human 100 ml @ 100 mls/hr PRN DAILY PRN IV SEE COMMENTS Last administered on 08/06/21at 14:15; Start 08/05/21 at 08:15 Sodium Chloride 1,000 ml @ 1,000 mls/hr Q1H PRN IV hypotension; Start 08/05/21 at 09:15; Stop 08/05/21 at 15:14; Status DC Sodium Chloride 1,000 ml @ 400 mls/hr Q2H30M PRN IV PATENCY; Start 08/05/21 at 09:15; Stop 08/05/21 at 21:14; Status DC Info (PHARMACY MONITORING -- do not chart) 1 each PRN DAILY PRN MC SEE COMMENTS; Start 08/05/21 at 09:15; Status Cancel Vancomycin HCl 500 mg/Sodium Chloride 100 ml @ 100 mls/hr QTUTHSA IV Last administered on 08/05/21at 15:59; Start 08/05/21 at 16:00; Stop 08/07/21 at 09:38; Status DC Heparin Sodium (Porcine) (Heparin Sodium) 5,000 unit Q12HR SQ Last administered on 08/09/21at 21:29; Start 08/05/21 at 11:00 Dextrose (Dextrose 50%-Water Syringe) 25 gm STK-MED ONCE IV ; Start 08/05/21 at 12:45; Stop 08/05/21 at 12:45; Status DC Dextrose (Dextrose 50%-Water Syringe) 12.5 gm PRN Q15MIN PRN IV SEE COMMENTS Last administered on 08/06/21at 17:47; Start 08/05/21 at 13:00 Magnesium Sulfate 50 ml @ 25 mls/hr 1X ONCE IV Last administered on 08/05/21at 16:59; Start 08/05/21 at 16:30; Stop 08/05/21 at 18:29; Status DC Iohexol (Omnipaque 300 Mg/ml) 60 ml 1X ONCE IV Last administered on 08/06/21at 09:30; Start 08/06/21 at 09:30; Stop 08/06/21 at 09:31; Status DC Info (CONTRAST GIVEN -- Rx MONITORING) 1 each PRN DAILY PRN MC SEE COMMENTS; Start 08/06/21 at 09:45; Stop 08/08/21 at 09:44; Status DC Aspirin (Aspirin Chewable) 81 mg DAILYWBKFT PO Last administered on 08/09/21at 08:00; Start 08/06/21 at 11:45 Atorvastatin Calcium (Lipitor) 20 mg QHS PO Last administered on 08/09/21at 21:00; Start 08/06/21 at 21:00 Sodium Chloride 1,000 ml @ 1,000 mls/hr Q1H PRN IV hypotension; Start 08/06/21 at 12:00; Stop 08/06/21 at 17:59; Status DC Sodium Chloride 1,000 ml @ 400 mls/hr Q2H30M PRN IV PATENCY; Start 08/06/21 at 12:00; Stop 08/06/21 at 23:59; Status DC Info (PHARMACY MONITORING -- do not chart) 1 each PRN DAILY PRN MC SEE COMMENTS; Start 08/06/21 at 12:00; Status UNV Info (Tpn Per Pharmacy) 1 each PRN DAILY PRN MC SEE COMMENTS Last administered on 08/09/21at 09:45; Start 08/06/21 at 12:30 Sodium Chloride 90 meq/Potassium Chloride 20 meq/ Calcium Gluconate 10 meq/ Multivitamins 10 ml/Zinc/Copper/ Manganese/ Selenium 1 ml/ Total Parenteral Nutrition/Amino Acids/Dextrose/ Fat Emulsion Intravenous 1,200 ml @ 50 mls/hr TPN CONT IV Last administered on 08/06/21at 21:58; Start 08/06/21 at 22:00; Stop 08/07/21 at 21:59; Status DC Pantoprazole Sodium (PROTONIX VIAL for IV PUSH) 40 mg DAILYAC IVP Last administered on 08/09/21at 11:00; Start 08/06/21 at 15:00 Sodium Chloride 1,000 ml @ 1,000 mls/hr Q1H PRN IV hypotension; Start 08/07/21 at 05:30; Stop 08/07/21 at 11:29; Status DC Albumin Human 200 ml @ 200 mls/hr 1X PRN PRN IV Hypotension; Start 08/07/21 at 05:30; Stop 08/07/21 at 11:29; Status DC Sodium Chloride (Normal Saline Flush) 10 ml 1X PRN PRN IV AP catheter pack; Start 08/07/21 at 05:30; Stop 08/08/21 at 05:29; Status DC Sodium Chloride (Normal Saline Flush) 10 ml 1X PRN PRN IV [employer] catheter pack; Start 08/07/21 at 05:30; Stop 08/08/21 at 05:29; Status DC Sodium Chloride 1,000 ml @ 400 mls/hr Q2H30M PRN IV PATENCY; Start 08/07/21 at 05:30; Stop 08/07/21 at 17:29; Status DC Info (PHARMACY MONITORING -- do not chart) 1 each PRN DAILY PRN MC SEE COMMENTS; Start 08/07/21 at 05:30; Status Cancel Info (PHARMACY MONITORING -- do not chart) 1 each PRN DAILY PRN MC SEE COMMENTS; Start 08/07/21 at 05:30; Stop 08/07/21 at 05:28; Status DC Sodium Chloride 90 meq/Potassium Chloride 20 meq/ Calcium Gluconate 10 meq/ Multivitamins 10 ml/Zinc/Copper/ Manganese/ Selenium 1 ml/ Total Parenteral Nu trition/Amino Acids/Dextrose 1,200 ml @ 50 mls/hr TPN CONT IV ; Start 08/07/21 at 22:00; Stop 08/07/21 at 14:00; Status DC Sodium Chloride 90 meq/Potassium Chloride 20 meq/ Calcium Gluconate 10 meq/ Multivitamins 10 ml/Zinc/Copper/ Manganese/ Selenium 1 ml/ Total Parenteral Nutrition/Amino Acids/Dextrose 1,025 ml @ 42.708 mls/ hr TPN CONT IV ; Start 08/07/21 at 22:00; Stop 08/07/21 at 14:02; Status DC Sodium Chloride 90 meq/Potassium Chloride 20 meq/ Calcium Gluconate 10 meq/ Multivitamins 10 ml/Zinc/Copper/ Manganese/ Selenium 1 ml/ Total Parenteral Nutrition/Amino Acids/Dextrose 1,200 ml @ 50 mls/hr TPN CONT IV Last admin istered on 08/07/21at 21:26; Start 08/07/21 at 22:00; Stop 08/08/21 at 21:59; Status DC Sodium Phosphate 15 mmol/Sodium Chloride 105 ml @ 105 mls/hr 1X ONCE IV Last administered on 08/08/21at 15:22; Start 08/08/21 at 14:00; Stop 08/08/21 at 14:59; Status DC Sodium Chloride 110 meq/Potassium Chloride 20 meq/ Calcium Gluconate 10 meq/ Multivitamins 10 ml/Zinc/Copper/ Manganese/ Selenium 1 ml/ Total Parenteral Nutrition/Amino Acids/Dextrose 1,200 ml @ 50 mls/hr TPN CONT IV Last administered on 08/08/21at 22:09; Start 08/08/21 at 22:00; Stop 08/09/21 at 21:59; Status DC Sodium Chloride 110 meq/Potassium Chloride 20 meq/ Potassium Phosphate 6 mmol/ Calcium Gluconate 5 meq/ Multivitamins 10 ml/Zinc/Copper/ Manganese/ Selenium 1 ml/ Total Parenteral Nutrition/Amino Acids/Dextrose/ Fat Emulsion Intravenous 1,200 ml @ 50 mls/hr TPN CONT IV Last administered on 08/09/21at 21:38; Start 08/09/21 at 22:00; Stop 08/10/21 at 21:59 Acetaminophen (Children'S Tylenol) 160 mg PRN Q6HRS PRN PO MILD PAIN / TEMP > 100.3'F; Start 08/09/21 at 20:30; Status UNV Sodium Chloride 1,000 ml @ 1,000 mls/hr Q1H PRN IV hypotension; Start 08/10/21 at 07:45; Stop 08/10/21 at 13:44 Sodium Chloride 1,000 ml @ 400 mls/hr Q2H30M PRN IV PATENCY; Start 08/10/21 at 07:45; Stop 08/10/21 at 19:44 Info (PHARMACY MONITORING -- do not chart) 1 each PRN DAILY PRN MC SEE COMMENTS; Start 08/10/21 at 07:45 Active Scripts Active Reported Tums (Calcium Carbonate) 200 Mg Tab.chew 400 Mg PO HS Sensipar (Cinacalcet Hcl) 60 Mg Tablet 1 Tab PO DAILY 30 Days Ferric Citrate 210 Mg Tablet 2 Tab PO TID 30 Days Lasix (Furosemide) 40 Mg Tablet 40 Mg PO BID Renagel (Sevelamer Hcl) 800 Mg Tablet 2 Tab PO TIDWMEALS Kapspargo Sprinkle (Metoprolol Succinate) 50 Mg Cap.spr.24 50 Mg PO DAILY Vitals/I & O Vital Sign - Last 24 Hours 08/09/21 08/09/21 08/09/21 08/09/21 09:00 10:00 11:00 12:00 Temp 99.7 99.7 Pulse 100 100 102 102 Resp 20 20 20 20 B/P (MAP) 126/58 126/58 132/60 135/61 Pulse Ox 100 100 100 100 O2 Delivery Ventilator Ventilator Ventilator Ventilator 08/09/21 08/09/21 08/09/21 08/09/21 12:16 13:00 14:00 15:00 Pulse 100 98 96 Resp 20 20 20 B/P (MAP) 106/54 128/58 112/54 Pulse Ox 100 100 100 100 O2 Delivery Ventilator Ventilator Ventilator Ventilator 08/09/21 08/09/21 08/09/21 08/09/21 16:00 17:00 17:12 18:00 Temp 99.0 99.0 Pulse 96 96 96 Resp 20 20 20 B/P (MAP) 118/56 112/56 122/54 Pulse Ox 100 100 100 100 O2 Delivery Ventilator Ventilator Ventilator Ventilator 08/09/21 08/09/21 08/09/21 08/09/21 19:00 20:00 20:00 20:24 Temp 98.8 98.8 Pulse 96 96 Resp 20 20 B/P (MAP) 123/57 121/57 Pulse Ox 100 100 100 O2 Delivery Ventilator Ventilator Mechanical Ventilator Ventilator 08/09/21 08/09/21 08/09/2108/09/22 21:00 22:00 23:00 23:59 Temp 98.4 98.4 Pulse 93 95 96 95 Resp B/P (MAP) 118/52 133/61 126/56 112/47 Pulse Ox 100 100 99 99 O2 Delivery Ventilator Ventilator Ventilator Ventilator 08/10/21 08/10/21 08/10/21 08/10/21 00:15 01:00 02:00 03:00 Pulse 96 95 95 Resp B/P (MAP) 128/56 124/55 104/48 Pulse Ox 100 99 99 99 O2 Delivery Ventilator Ventilator Ventilator Ventilator 08/10/21 08/10/21 08/10/21 08/10/21 04:00 04:30 05:00 06:05 Temp 97.9 97.9 Pulse 96 96 98 Resp 24 B/P (MAP) 117/52 116/54 121/56 Pulse Ox 99 100 99 99 O2 Delivery Ventilator Ventilator Ventilator Ventilator Intake and Output 08/09/21 08/09/21 08/10/21 15:00 23:00 07:00 Intake Total 1297 ml 688 ml Output Total 0 ml 200 ml 0 ml Balance 0 ml 1097 ml 688 ml Justicifation of Admission Dx: Justifications for Admission: Justification of Admission Dx: N/A REID HERNANDEZ MD Aug 10, 2021 08:27
[2021-08-10 08:53] LABS: FIO2 ABG 35% VENT
--- NOTE | 2021-08-10 09:11 | PDOC ---
Infectious Disease Note Subjective: Subjective Patient is intubated sedated Undergoing dialysis Discussed with RN Vital Signs: Vital Signs Vital Signs Date Time Temp Pulse Resp B/P (MAP) Pulse Ox O2 Delivery O2 Flow Rate FiO2 08/10/21 08:10 100 Ventilator 08/10/21 06:05 98 24 121/56 08/10/21 04:00 97.9 97.9 Physical Exam: PHYSICAL EXAM GENERAL: Sedated, orally intubated gentleman, not in distress. HEENT: Unequal pupils, no conjunctival lesion. ETT OGT present LUNGS: Decreased breath sounds bilaterally. HEART: S1, S2 regular. No murmurs. ABDOMEN: Soft, nontender. No organomegaly. Suprapubic catheter is now looking good with normal looking urine. EXTREMITIES: No edema, cyanosis. SKIN: Unremarkable. AV shunt in the right upper extremity is unremarkable. NEUROLOGIC: The patient cannot be judged as sedated and intubated. Medications: Inpatient Meds: Medications reviewed. Labs: Lab Laboratory Tests Test 08/09/21 17:41 08/10/21 05:30 08/10/21 08:00 Glucose (Fingerstick) 103 mg/dL (70-99) White Blood Count 15.5 x10^3/uL (4.0-11.0) Red Blood Count 3.23 x10^6/uL (4.30-5.70) Hemoglobin 10.3 g/dL (13.0-17.5) Hematocrit 31.5 % (39.0-53.0) Mean Corpuscular Volume 98 fL (79-100) Mean Corpuscular Hemoglobin 32 pg (25-35) Mean Corpuscular Hemoglobin Concent 33 g/dL (31-37) Red Cell Distribution Width 17.3 % (11.5-14.5) Platelet Count 118 x10^3/uL (140-400) Neutrophils (%) (Auto) 76 % (31-73) Lymphocytes (%) (Auto) 8 % (24-48) Monocytes (%) (Auto) 12 % (0-9) Eosinophils (%) (Auto) 5 % (0-3) Basophils (%) (Auto) 0 % (0-3) Neutrophils # (Auto) 11.8 x10^3/uL (1.8-7.7) Lymphocytes # (Auto) 1.2 x10^3/uL (1.0-4.8) Monocytes # (Auto) 1.8 x10^3/uL (0.0-1.1) Eosinophils # (Auto) 0.7 x10^3/uL (0.0-0.7) Basophils # (Auto) 0.1 x10^3/uL (0.0-0.2) Sodium Level 137 mmol/L (136-145) Potassium Level 4.1 mmol/L (3.5-5.1) Chloride Level 100 mmol/L (98-107) Carbon Dioxide Level 19 mmol/L (21-32) Anion Gap 18 (6-14) Blood Urea Nitrogen 108 mg/dL (8-26) Creatinine 7.5 mg/dL (0.7-1.3) Estimated GFR (Cockcroft-Gault) 7.5 Glucose Level 107 mg/dL (70-99) Calcium Level 8.8 mg/dL (8.5-10.1) Phosphorus Level 2.8 mg/dL (2.6-4.7) O2 Saturation 99 % (92-99) Arterial Blood pH 7.42 (7.35-7.45) Arterial Blood pCO2 at Patient Temp 29 mmHg (35-46) Arterial Blood pO2 at Patient Temp 147 mmHg (75-108) Arterial Blood HCO3 19 mmol/L (21-28) Arterial Blood Base Excess -5 mmol/L (-3-3) FiO2 35% vent Objective: Assessment: MSSA Bacteremia 08/03/[address] head with frontoparietal infarct Encephalopathy. Fever. Improved Complicated urinary tract infection with sepsis. Hypotension. Improved Acute Respiratory failure, requiring intubation. End-stage renal disease, on hemodialysis. Congestive heart failure. History of hypertension. Leukocytosis Urinary retention status post SPC Plan: Plan of Care Continue Zosyn for now Supportive care Follow repeat blood cultures Trend WBC ct chest abd and pelvis noted repeat bc negative from 08/06/2021 Follow-up repeat CT head Critically ill Discussed with BRYSON GARCES MD Aug 10, 2021 09:11
--- NOTE | 2021-08-10 10:14 | PDOC ---
DATE OF SERVICE DATE: 08/10/21 TIME: 10:13 SUBJECTIVE ROS Intubated, on MV OBJECTIVE Vital Signs Vital Signs Date Time Temp Pulse Resp B/P (MAP) Pulse Ox O2 Delivery O2 Flow Rate FiO2 08/10/21 09:00 102 26 131/57 100 Ventilator 08/10/21 08:00 98.3 98.3 I & 0 Intake and Output 08/10/21 07:00 Intake Total 1985 ml Output Total 200 ml Balance 1785 ml Intake IV Total 1985 ml Output Urine Total 0 ml Gastric Drainage Total 200 ml PHYSICAL EXAM Physical Exam GENERAL: orally intubated HEENT: ETT + NECK: Supple. LUNGS: Decreased breath sounds bilaterally. HEART: S1, S2 regular. ABDOMEN: Soft, nontender. No organomegaly. has chronic Suprapubic EXTREMITIES: No cyanosis. AV shunt in the right upper extremity SKIN: .No Rash NEUROLOGIC: ntubated, not waking up off sedation DIAGNOSIS/ASSESSMENT Assessment & Plan ESRD - on HD TTS , Dialysis today, discussed treatment plan with [facility]. On pressor suport. Tolerated Dialysis Encephalopathy stroke with left-sided weakness -Cerebrovascular accident. CT head with frontoparietal infarct Acute respiratory failure; multifactorial. s/p intubation Leukocytosis/ ,Septic shock; MSSA Bacteremia 08/03/2021 Complicated urinary tract infection with sepsis. Acute on chronic diastolic CHF; Echo 04/13 with preserved LV systolic function. LHC 04/13 with normal coronaries Valvular disease: mod to severe SSS s/p leadless PPM placed at [facility] Moderate secondary pulmonary HTN Hypothyroidism Anemia Hgb trending down , per primary . Hold CLIFF due to Possible CVA COMMENT/RELEVANT DATA Meds Current Medications Medications (Trade) Dose Ordered Sig/Kevin Start Time Stop Time Status Last Admin Dose Admin Acetaminophen (Children'S Tylenol) 160 mg PRN Q6HRS PRN 08/09/21 20:30 UNV Acetaminophen (Tylenol Supp) 650 mg PRN Q6HRS PRN 08/03/21 20:45 08/04/21 20:25 650 MG Acetaminophen (Tylenol) 650 mg PRN Q6HRS PRN 08/03/21 20:45 Albumin Human 200 ml @ 200 mls/hr 1X PRN PRN 08/07/21 05:30 08/07/21 11:29 DC Aspirin (Aspirin Chewable) 81 mg [id number] 08/06/21 11:45 08/09/21 08:00 81 MG Atorvastatin Calcium (Lipitor) 20 mg QHS 08/06/21 21:00 08/09/21 21:00 20 MG Atropine Sulfate (ATROPINE 0.5mg SYRINGE) 0.5 mg PRN Q5MIN PRN 08/03/21 15:00 Chlorhexidine Gluconate (Peridex) 15 ml BID 08/03/21 21:00 08/04/21 19:49 DC Ciprofloxacin/ Dextrose 200 ml @ 200 mls/hr DAILY 08/04/21 09:00 08/05/21 09:18 DC 08/04/21 11:38 200 MLS/HR Dexmedetomidine HCl 400 mcg/ Sodium Chloride 100 ml @ 3.725 mls/ hr CONT PRN 08/03/21 15:00 Dextrose (Dextrose 50%-Water Syringe) 12.5 gm PRN Q15MIN PRN 08/05/21 13:00 08/06/21 17:47 25 GM Etomidate (Amidate) 20 mg STK-MED ONCE 08/03/21 17:04 08/03/21 17:04 DC Famotidine (Pepcid Vial) 20 mg QODAY 08/04/21 09:00 08/06/21 14:25 DC 08/06/21 09:08 20 MG Fentanyl Citrate 30 ml @ 2.5 mls/hr CONT PRN 08/03/21 15:00 08/08/21 05:25 2.5 MLS/HR Glycerin/ Hypromellose/ Polyethylene (Artificial Tears) 1 drop PRN Q1HR PRN 08/03/21 15:00 Heparin Sodium (Porcine) (Heparin Sodium) 5,000 unit Q12HR 08/05/21 11:00 08/09/21 21:29 5,000 UNIT Info (CONTRAST GIVEN -- Rx MONITORING) 1 each PRN DAILY PRN 08/06/21 09:45 08/08/21 09:44 DC Info (PHARMACY MONITORING -- do not chart) 1 each PRN DAILY PRN 08/10/21 07:45 Info (Tpn Per Pharmacy) 1 each PRN DAILY PRN 08/06/21 12:30 08/09/21 09:45 1 EACH Iohexol (Omnipaque 240 Mg/ml) 50 ml STK-MED ONCE 08/04/21 12:36 08/04/21 12:36 DC Iohexol (Omnipaque 300 Mg/ml) 60 ml 1X ONCE 08/06/21 09:30 08/06/21 09:31 DC 08/06/21 09:30 60 ML Lidocaine HCl (Buffered Lidocaine 1%) 3 ml 1X ONCE 08/04/21 13:30 08/04/21 13:31 DC 08/04/21 13:15 2 ML Lidocaine HCl (Xylocaine-Mpf 1% 5ml Vial) 5 ml 1X ONCE 08/04/21 09:30 08/04/21 09:31 DC Magnesium Sulfate 50 ml @ 25 mls/hr 1X ONCE 08/05/21 16:30 08/05/21 18:29 DC 08/05/21 16:59 25 MLS/HR Midazolam HCl (Versed) 5 mg PRN 1X PRN 08/03/21 15:00 08/04/21 14:59 DC Norepinephrine Bitartrate 32 mg/ Dextrose 250 ml @ 3.492 mls/ hr CONT PRN 08/04/21 05:30 08/07/21 02:12 11.524 MLS/HR Norepinephrine Bitartrate 8 mg/ Dextrose 258 ml @ 14.416 mls/ hr CONT PRN 08/03/21 15:00 08/04/21 05:29 DC 08/04/21 03:52 141.274 MLS/HR Pantoprazole Sodium (PROTONIX VIAL for IV PUSH) 40 mg DAILYAC 08/06/21 15:00 08/09/21 11:00 40 MG Phenylephrine HCl 50 mg/Sodium Chloride 255 ml @ 11.399 mls/ hr CONT PRN 08/04/21 06:30 08/05/21 05:38 22.797 MLS/HR Piperacillin Sod/ Tazobactam Sod 2.25 gm/Sodium Chloride 50 ml @ 100 mls/hr Q6HRS 08/04/21 12:00 UNV Piperacillin Sod/ Tazobactam Sod 4.5 gm/Sodium Chloride 100 ml @ 200 mls/hr 1X ONCE 08/03/21 11:15 08/03/21 11:44 DC 08/03/21 11:26 200 MLS/HR Propofol 100 ml @ 2.235 mls/ hr CONT PRN 08/03/21 15:00 Rocuronium Aptos (Zemuron) 50 mg STK-MED ONCE 08/03/21 17:04 08/03/21 17:04 DC Sodium Chloride 1,000 ml @ 400 mls/hr Q2H30M PRN 08/10/21 07:45 08/10/21 19:44 Sodium Chloride (Normal Saline Flush) 10 ml 1X PRN PRN 08/07/21 05:30 08/08/21 05:29 DC Sodium Chloride 90 meq/Potassium Chloride 20 meq/ Calcium Gluconate 10 meq/ Multivitamins 10 ml/Zinc/Copper/ Manganese/ Selenium 1 ml/ Total Parenteral Nutrition/Amino Acids/Dextrose 1,200 ml @ 50 mls/hr TPN CONT 08/07/21 22:00 08/08/21 21:59 DC 08/07/21 21:26 50 MLS/HR Sodium Chloride 90 meq/Potassium Chloride 20 meq/ Calcium Gluconate 10 meq/ Multivitamins 10 ml/Zinc/Copper/ Manganese/ Selenium 1 ml/ Total Parenteral Nutrition/Amino Acids/Dextrose/ Fat Emulsion Intravenous 1,200 ml @ 50 mls/hr TPN CONT 08/06/21 22:00 08/07/21 21:59 DC 08/06/21 21:58 50 MLS/HR Sodium Chloride 110 meq/Potassium Chloride 20 meq/ Calcium Gluconate 10 meq/ Multivitamins 10 ml/Zinc/Copper/ Manganese/ Selenium 1 ml/ Total Parenteral Nutrition/Amino Acids/Dextrose 1,200 ml @ 50 mls/hr TPN CONT 08/08/21 22:00 08/09/21 21:59 DC 08/08/21 22:09 50 MLS/HR Sodium Chloride 110 meq/Potassium Chloride 20 meq/ Potassium Phosphate 6 mmol/ Calcium Gluconate 5 meq/ Multivitamins 10 ml/Zinc/Copper/ Manganese/ Selenium 1 ml/ Total Parenteral Nutrition/Amino Acids/Dextrose/ Fat Emulsion Intravenous 1,200 ml @ 50 mls/hr TPN CONT 08/09/21 22:00 08/10/21 21:59 08/09/21 21:38 50 MLS/HR Sodium Phosphate 15 mmol/Sodium Chloride 105 ml @ 105 mls/hr 1X ONCE 08/08/21 14:00 08/08/21 14:59 DC 08/08/21 15:22 105 MLS/HR Vancomycin HCl (Vanco Per Pharmacy) 1 each PRN DAILY PRN 08/04/21 08:00 UNV Vancomycin HCl (Vancomycin Random Level) 1 each 1X ONCE 08/05/21 06:00 08/05/21 06:01 DC 08/05/21 06:14 1 EACH Vancomycin HCl 1.5 gm/Sodium Chloride 500 ml @ 250 mls/hr 1X ONCE 08/03/21 12:00 08/03/21 13:59 DC 08/03/21 12:00 250 MLS/HR Vancomycin HCl 500 mg/Sodium Chloride 100 ml @ 100 mls/hr QTUTHSA 08/05/21 16:00 08/07/21 09:38 DC 08/05/21 15:59 100 MLS/HR Vasopressin 20 unit/Dextrose 101 ml @ 12 mls/hr CONT PRN 08/04/21 03:45 08/08/21 22:04 12 MLS/HR Vecuronium Aptos (Norcuron Bolus) 6 mg PRN 1X PRN 08/03/21 15:00 08/04/21 14:59 DC Lab Laboratory Tests Test 08/09/21 17:41 08/10/21 05:30 08/10/21 08:00 Glucose (Fingerstick) 103 mg/dL (70-99) White Blood Count 15.5 x10^3/uL (4.0-11.0) Red Blood Count 3.23 x10^6/uL (4.30-5.70) Hemoglobin 10.3 g/dL (13.0-17.5) Hematocrit 31.5 % (39.0-53.0) Mean Corpuscular Volume 98 fL (79-100) Mean Corpuscular Hemoglobin 32 pg (25-35) Mean Corpuscular Hemoglobin Concent 33 g/dL (31-37) Red Cell Distribution Width 17.3 % (11.5-14.5) Platelet Count 118 x10^3/uL (140-400) Neutrophils (%) (Auto) 76 % (31-73) Lymphocytes (%) (Auto) 8 % (24-48) Monocytes (%) (Auto) 12 % (0-9) Eosinophils (%) (Auto) 5 % (0-3) Basophils (%) (Auto) 0 % (0-3) Neutrophils # (Auto) 11.8 x10^3/uL (1.8-7.7) Lymphocytes # (Auto) 1.2 x10^3/uL (1.0-4.8) Monocytes # (Auto) 1.8 x10^3/uL (0.0-1.1) Eosinophils # (Auto) 0.7 x10^3/uL (0.0-0.7) Basophils # (Auto) 0.1 x10^3/uL (0.0-0.2) Sodium Level 137 mmol/L (136-145) Potassium Level 4.1 mmol/L (3.5-5.1) Chloride Level 100 mmol/L (98-107) Carbon Dioxide Level 19 mmol/L (21-32) Anion Gap 18 (6-14) Blood Urea Nitrogen 108 mg/dL (8-26) Creatinine 7.5 mg/dL (0.7-1.3) Estimated GFR (Cockcroft-Gault) 7.5 Glucose Level 107 mg/dL (70-99) Calcium Level 8.8 mg/dL (8.5-10.1) Phosphorus Level 2.8 mg/dL (2.6-4.7) O2 Saturation 99 % (92-99) Arterial Blood pH 7.42 (7.35-7.45) Arterial Blood pCO2 at Patient Temp 29 mmHg (35-46) Arterial Blood pO2 at Patient Temp 147 mmHg (75-108) Arterial Blood HCO3 19 mmol/L (21-28) Arterial Blood Base Excess -5 mmol/L (-3-3) FiO2 35% vent Results All relevant outside records, renal labs, imaging studies, telemetry/EKG's were reviewed. Justicifation of Admission Dx: Justifications for Admission: Justification of Admission Dx: N/A MARIYA NORMAN MD Aug 10, 2021 10:14
--- NOTE | 2021-08-10 10:40 | PDOC ---
[employer] PROGRESS NOTE Date of Service DOS: DATE: 08/10/21 TIME: 10:38 Chief Complaint Chief Complaint Respiratory failure requiring mechanical ventilation Severe sepsis Possible stroke Suprapubic catheter; CHF; COPD; hypertension; pneumonia, End-stage renal disease, on dialysis; history of peritonitis dialysis as well left kidney stents; suprapubic catheter. History of Present Illness History of Present Illness 08/10/2021 Patient seen and examined in the ICU He remains on the vent AC/20/500/30 5% with 5 of PEEP Still off sedation but no response Has mitts on the right hand Currently getting dialysis Art line functioning well TPN hanging Discussed with RN Chart reviewed 08/09/2021 Patient seen and examined in the ICU He remains on the ventilator AC/20/500/30 5% with 5 of PEEP Has IV TPN Fentanyl is been off for a day and Versed to been off for 2 days but he still not waking up Discussed with RN Chart reviewed He remains very critically ill 08/08/2021 Patient seen and examined in the ICU He remains on the ventilator AC/20/500/30 5% with 5 of PEEP He has a mitt on the right hand Left arm with art line SCDs in place OG to suction Has TPN hanging Sedated with fentanyl Has IV Levophed and IV vasopressin hanging Chart reviewed Discussed with RN He remains extremely critically ill 08/07/2021 Patient seen and examined in the ICU He remains on the vent AC/20/500/30 5% with 5 of PEEP Has art line in place SCDs in place Has OG clamped On IV TPN Sedated with fentanyl Versed Has IV Levophed and vasopressin hanging Discussed with RN Chart reviewed He remains extremely critically ill 08/06/2021 Patient seen and examined in the ICU CT of the head showing a small stroke CT of the abdomen showing possible obstruction Discussed with RN Chart reviewed He is still intubated AC//500/1 100% with 10 of PEEP OG feeds are running but we are going to stop that and start some TPN if okay with nephrology Sedated with propofol Versed and fentanyl and paralyzed with vecuronium He remains extremely critically ill 08/05/2021 Patient seen and examined in the ICU He is currently on dialysis Discussed with RN He is still on the vent AC//500/30 5% with 5 of PEEP Has SCDs in place [place]ay to bedside drainage Sedated with fentanyl and Versed Has IV Levophed hanging Also on IV neomycin Also on IV vasopressin Extremely critically ill 08/04/2021 Patient seen and examined in the ICU He is mechanically ventilated AC/16/500/40 5% with 5 of PEEP He is extremely hypotensive 63/40 currently despite having Levophed and vasopressin Discussed with RN were going to start Michael-Synephrine Tachycardic at 117 bpm Patient is extremely cool and clammy Had a fever to 103.5 last night currently at 102.9 He is extremely critically ill Vitals/I&O Vitals/I&O: Vital Signs Date Time Temp Pulse Resp B/P (MAP) Pulse Ox O2 Delivery O2 Flow Rate FiO2 08/10/21 09:00 102 26 131/57 100 Ventilator 08/10/21 08:00 98.3 98.3 I & O 08/09/21 08/09/21 08/10/21 15:00 23:00 07:00 Intake Total 1297 ml 688 ml Output Total 0 ml 200 ml 0 ml Balance 0 ml 1097 ml 688 ml Physical Exam Physical Exam: GENERAL: Sedated, orally intubated gentleman, not in distress. HEENT: Unequal pupils, no conjunctival lesion. ETT OGT present LUNGS: Decreased breath sounds bilaterally. HEART: S1, S2 regular. No murmurs. ABDOMEN: Soft, nontender. No organomegaly. Suprapubic catheter is now looking good with normal looking urine. EXTREMITIES: No edema, cyanosis. SKIN: Unremarkable. AV shunt in the right upper extremity is unremarkable. NEUROLOGIC: The patient cannot be judged as sedated and intubated. General: Other (Intubated) Heart: Regular rate Lungs: Crackles Abdomen: Normal bowel sounds Extremities: No edema Skin: No significant lesion Labs Labs: Laboratory Tests Test 08/09/21 17:41 08/10/21 05:30 08/10/21 08:00 Glucose (Fingerstick) 103 mg/dL (70-99) White Blood Count 15.5 x10^3/uL (4.0-11.0) Red Blood Count 3.23 x10^6/uL (4.30-5.70) Hemoglobin 10.3 g/dL (13.0-17.5) Hematocrit 31.5 % (39.0-53.0) Mean Corpuscular Volume 98 fL (79-100) Mean Corpuscular Hemoglobin 32 pg (25-35) Mean Corpuscular Hemoglobin Concent 33 g/dL (31-37) Red Cell Distribution Width 17.3 % (11.5-14.5) Platelet Count 118 x10^3/uL (140-400) Neutrophils (%) (Auto) 76 % (31-73) Lymphocytes (%) (Auto) 8 % (24-48) Monocytes (%) (Auto) 12 % (0-9) Eosinophils (%) (Auto) 5 % (0-3) Basophils (%) (Auto) 0 % (0-3) Neutrophils # (Auto) 11.8 x10^3/uL (1.8-7.7) Lymphocytes # (Auto) 1.2 x10^3/uL (1.0-4.8) Monocytes # (Auto) 1.8 x10^3/uL (0.0-1.1) Eosinophils # (Auto) 0.7 x10^3/uL (0.0-0.7) Basophils # (Auto) 0.1 x10^3/uL (0.0-0.2) Sodium Level 137 mmol/L (136-145) Potassium Level 4.1 mmol/L (3.5-5.1) Chloride Level 100 mmol/L (98-107) Carbon Dioxide Level 19 mmol/L (21-32) Anion Gap 18 (6-14) Blood Urea Nitrogen 108 mg/dL (8-26) Creatinine 7.5 mg/dL (0.7-1.3) Estimated GFR (Cockcroft-Gault) 7.5 Glucose Level 107 mg/dL (70-99) Calcium Level 8.8 mg/dL (8.5-10.1) Phosphorus Level 2.8 mg/dL (2.6-4.7) O2 Saturation 99 % (92-99) Arterial Blood pH 7.42 (7.35-7.45) Arterial Blood pCO2 at Patient Temp 29 mmHg (35-46) Arterial Blood pO2 at Patient Temp 147 mmHg (75-108) Arterial Blood HCO3 19 mmol/L (21-28) Arterial Blood Base Excess -5 mmol/L (-3-3) FiO2 35% vent Assessment and Plan Assessmemt and Plan Problems Medical Problems: (1) Hypoxia Status: Acute (2) Respiratory failure Status: Acute (3) Sepsis Status: Acute (4) Stroke Status: Acute (5) UTI (urinary tract infection) Status: Acute Respiratory failure requiring mechanical ventilation Right frontal lobe stroke Severe sepsis Small stroke Suprapubic catheter; CHF; COPD; hypertension; pneumonia, End-stage renal disease, on dialysis; history of peritonitis dialysis as well left kidney stents; suprapubic catheter. Plan ICU monitoring Continue holding sedation Continue mechanical ventilation Vent weaning IV antibiotics per infectious disease Trend labs Home meds when possible Lovenox 40 mg a day for DVT prophylaxis we will continue SCDs as well Dialysis per nephrology Nutritional support He remains very critically ill Appreciate subspecialist input Prognosis extremely guarded CC time 32 minutes Comment Review of Relevant I have reviewed the following items allyson (where applicable) has been applied. Medications: Current Medications Medications (Trade) Dose Ordered Sig/Kevin Route PRN Reason Start Time Stop Time Status Last Admin Dose Admin Sodium Chloride 110 meq/Potassium Chloride 20 meq/ Potassium Phosphate 6 mmol/ Calcium Gluconate 5 meq/ Multivitamins 10 ml/Zinc/Copper/ Manganese/ Selenium 1 ml/ Total Parenteral Nutrition/Amino Acids/Dextrose/ Fat Emulsion Intravenous 1,200 ml @ 50 mls/hr TPN CONT IV 08/09/21 22:00 08/10/21 21:59 08/09/21 21:38 Justifications for Admission Other Justification SBO DEVAN NICHOLE III DO Aug 10, 2021 10:40
--- NOTE | 2021-08-10 10:42 | PDOC ---
PULMONARY PROGRESS NOTES DATE: 08/10/21 TIME: 10:40 Subjective Patient remains unresponsive. He is off sedation for last 72 hours. 35% FiO2 5 of PEEP Pupils more dilated on the left than on the right but react Vitals Vital Signs Date Time Temp Pulse Resp B/P (MAP) Pulse Ox O2 Delivery O2 Flow Rate FiO2 08/10/21 09:00 102 26 131/57 100 Ventilator 08/10/21 08:00 98.3 98.3 Comments on vent sedated ros unable to obtain HEENT: Other (nc at perrl nose clear orally intubated neck no lad no thyromegaly) Lungs: Crackles Cardiovascular: S1, S2 Abdomen: Soft, Non-tender Extremities: No Edema Skin: No Rashes Labs Laboratory Tests Test 08/08/21 11:01 08/09/21 07:15 08/09/21 17:41 08/10/21 05:30 Sodium Level 136 mmol/L (136-145) 138 mmol/L (136-145) 137 mmol/L (136-145) Potassium Level 4.1 mmol/L (3.5-5.1) 3.9 mmol/L (3.5-5.1) 4.1 mmol/L (3.5-5.1) Chloride Level 101 mmol/L (98-107) 101 mmol/L (98-107) 100 mmol/L (98-107) Carbon Dioxide Level 27 mmol/L (21-32) 22 mmol/L (21-32) 19 mmol/L (21-32) Anion Gap 8 (6-14) 15 (6-14) 18 (6-14) Blood Urea Nitrogen 51 mg/dL (8-26) 77 mg/dL (8-26) 108 mg/dL (8-26) Creatinine 4.8 mg/dL (0.7-1.3) 6.2 mg/dL (0.7-1.3) 7.5 mg/dL (0.7-1.3) Estimated GFR (Cockcroft-Gault) 12.6 9.4 7.5 Glucose Level 136 mg/dL (70-99) 115 mg/dL (70-99) 107 mg/dL (70-99) Calcium Level 8.8 mg/dL (8.5-10.1) 8.7 mg/dL (8.5-10.1) 8.8 mg/dL (8.5-10.1) Phosphorus Level 2.0 mg/dL (2.6-4.7) 2.5 mg/dL (2.6-4.7) 2.8 mg/dL (2.6-4.7) Magnesium Level 2.4 mg/dL (1.8-2.4) 2.5 mg/dL (1.8-2.4) White Blood Count 12.8 x10^3/uL (4.0-11.0) 15.5 x10^3/uL (4.0-11.0) Red Blood Count 3.12 x10^6/uL (4.30-5.70) 3.23 x10^6/uL (4.30-5.70) Hemoglobin 9.9 g/dL (13.0-17.5) 10.3 g/dL (13.0-17.5) Hematocrit 30.5 % (39.0-53.0) 31.5 % (39.0-53.0) Mean Corpuscular Volume 98 fL (79-100) 98 fL (79-100) Mean Corpuscular Hemoglobin 32 pg (25-35) 32 pg (25-35) Mean Corpuscular Hemoglobin Concent 33 g/dL (31-37) 33 g/dL (31-37) Red Cell Distribution Width 17.2 % (11.5-14.5) 17.3 % (11.5-14.5) Platelet Count 83 x10^3/uL (140-400) 118 x10^3/uL (140-400) Neutrophils (%) (Auto) 76 % (31-73) 76 % (31-73) Lymphocytes (%) (Auto) 7 % (24-48) 8 % (24-48) Monocytes (%) (Auto) 14 % (0-9) 12 % (0-9) Eosinophils (%) (Auto) 3 % (0-3) 5 % (0-3) Basophils (%) (Auto) 0 % (0-3) 0 % (0-3) Neutrophils # (Auto) 9.7 x10^3/uL (1.8-7.7) 11.8 x10^3/uL (1.8-7.7) Lymphocytes # (Auto) 0.9 x10^3/uL (1.0-4.8) 1.2 x10^3/uL (1.0-4.8) Monocytes # (Auto) 1.8 x10^3/uL (0.0-1.1) 1.8 x10^3/uL (0.0-1.1) Eosinophils # (Auto) 0.4 x10^3/uL (0.0-0.7) 0.7 x10^3/uL (0.0-0.7) Basophils # (Auto) 0.0 x10^3/uL (0.0-0.2) 0.1 x10^3/uL (0.0-0.2) BUN/Creatinine Ratio 12 (6-20) Total Bilirubin 1.0 mg/dL (0.2-1.0) Aspartate Amino Transf (AST/SGOT) 87 U/L (15-37) Alanine Aminotransferase (ALT/SGPT) 59 U/L (16-63) Alkaline Phosphatase 427 U/L (46-116) Total Protein 7.2 g/dL (6.4-8.2) Albumin 2.3 g/dL (3.4-5.0) Albumin/Globulin Ratio 0.5 (1.0-1.7) Glucose (Fingerstick) 103 mg/dL (70-99) Test 08/10/21 08:00 O2 Saturation 99 % (92-99) Arterial Blood pH 7.42 (7.35-7.45) Arterial Blood pCO2 at Patient Temp 29 mmHg (35-46) Arterial Blood pO2 at Patient Temp 147 mmHg (75-108) Arterial Blood HCO3 19 mmol/L (21-28) Arterial Blood Base Excess -5 mmol/L (-3-3) FiO2 35% vent Laboratory Tests Test 08/09/21 17:41 08/10/21 05:30 08/10/21 08:00 Glucose (Fingerstick) 103 mg/dL (70-99) White Blood Count 15.5 x10^3/uL (4.0-11.0) Red Blood Count 3.23 x10^6/uL (4.30-5.70) Hemoglobin 10.3 g/dL (13.0-17.5) Hematocrit 31.5 % (39.0-53.0) Mean Corpuscular Volume 98 fL (79-100) Mean Corpuscular Hemoglobin 32 pg (25-35) Mean Corpuscular Hemoglobin Concent 33 g/dL (31-37) Red Cell Distribution Width 17.3 % (11.5-14.5) Platelet Count 118 x10^3/uL (140-400) Neutrophils (%) (Auto) 76 % (31-73) Lymphocytes (%) (Auto) 8 % (24-48) Monocytes (%) (Auto) 12 % (0-9) Eosinophils (%) (Auto) 5 % (0-3) Basophils (%) (Auto) 0 % (0-3) Neutrophils # (Auto) 11.8 x10^3/uL (1.8-7.7) Lymphocytes # (Auto) 1.2 x10^3/uL (1.0-4.8) Monocytes # (Auto) 1.8 x10^3/uL (0.0-1.1) Eosinophils # (Auto) 0.7 x10^3/uL (0.0-0.7) Basophils # (Auto) 0.1 x10^3/uL (0.0-0.2) Sodium Level 137 mmol/L (136-145) Potassium Level 4.1 mmol/L (3.5-5.1) Chloride Level 100 mmol/L (98-107) Carbon Dioxide Level 19 mmol/L (21-32) Anion Gap 18 (6-14) Blood Urea Nitrogen 108 mg/dL (8-26) Creatinine 7.5 mg/dL (0.7-1.3) Estimated GFR (Cockcroft-Gault) 7.5 Glucose Level 107 mg/dL (70-99) Calcium Level 8.8 mg/dL (8.5-10.1) Phosphorus Level 2.8 mg/dL (2.6-4.7) O2 Saturation 99 % (92-99) Arterial Blood pH 7.42 (7.35-7.45) Arterial Blood pCO2 at Patient Temp 29 mmHg (35-46) Arterial Blood pO2 at Patient Temp 147 mmHg (75-108) Arterial Blood HCO3 19 mmol/L (21-28) Arterial Blood Base Excess -5 mmol/L (-3-3) FiO2 35% vent Medications Active Scripts Medications Dose Route/Sig Max Daily Dose Days Date Category Tums (Calcium Carbonate) 200 Mg Tab.chew 400 Mg PO HS 04/19/21 Reported Sensipar (Cinacalcet Hcl) 60 Mg Tablet 1 Tab PO DAILY 30 04/19/21 Reported Ferric Citrate 210 Mg Tablet 2 Tab PO TID 30 04/19/21 Reported Lasix (Furosemide) 40 Mg Tablet 40 Mg PO BID 04/19/21 Reported Renagel (Sevelamer Hcl) 800 Mg Tablet 2 Tab PO TIDWMEALS 01/18/21 Reported Kapspargo Sprinkle (Metoprolol Succinate) 50 Mg Cap.spr.24 50 Mg PO DAILY 01/18/21 Reported Comments Chest x-ray reviewed dated 08/09/2021. Faint bilateral infiltrates CT chest reviewed dated 08/06/2021. Small basal pleural effusion with associated atelectasis. No definite consolidation seen Impression . IMPRESSION: 1. Acute hypoxemic respiratory failure, multifactorial. 2. Septic shock./Urosepsis 3. Fever related to above. 4. SARS-CoV-2 testing negative. 5. End-stage renal disease, on hemodialysis. 6. Possible stroke. 7. mssa bactremia 8. Encephalopathy. Off sedation but still nonresponsive. Could be related to stroke. 9. Suspected ischemic stroke Other comorbidities including end-stage renal disease, hypertension, chronic obstructive pulmonary disease, gastroesophageal reflux, ischemic cardiomyopathy. Plan . Updated 08/10 Continue vent support assist-control mode. setting reviewed no weaning. CT head today to rule out ischemic stroke. repeat bcx neg abx per id vasopressor to keep map 65 complicated urinary tract infection with septic shock. mssa bactremia Follow ID recommendations Hemodialysis per nephrology Follow blood cultures DVT GI prophylaxis CT chest reviewed. No focal consolidation. Small basal effusion with associated atelectasis. discussed w rn rt Off sedation for 72 hours. Patient still not responsive Discussed with RN and RT Updated 08/09 Continue vent support assist-control mode. setting reviewed repeat bcx neg abx per id vasopressor to keep map 65 complicated urinary tract infection with septic shock. mssa bactremia Follow ID recommendations Hemodialysis per nephrology Follow blood cultures DVT GI prophylaxis CT chest reviewed. No focal consolidation. Small basal effusion with associated atelectasis. discussed w rn rt Off sedation for 48 hours. If there is not wake up in the next few days, may need an MRI. Discussed with RN and RT Updated 08/08 Continue vent support assist-control mode. setting reviewed repeat bcx neg abx per id vasopressor to keep map 65 complicated urinary tract infection with septic shock. mssa bactremia Follow ID recommendations Hemodialysis per nephrology Follow blood cultures DVT GI prophylaxis CT chest reviewed. No focal consolidation. Small basal effusion with associated atelectasis. discussed w rn rt RUDI DAVALOS MD Aug 10, 2021 10:42
--- NOTE | 2021-08-10 11:08 | PDOC ---
Date of Service: DATE: 08/10/21 TIME: 11:03 Objective: Objective: D/w nurse - going for head imaging (noted unequal pupils today), wondering if any need to repeat abdominal imaging while there, ~300cc from OG yesterday, smear of stool couple days ago. Vital Signs: Vital Signs Date Time Temp Pulse Resp B/P (MAP) Pulse Ox O2 Delivery O2 Flow Rate FiO2 08/10/21 09:00 102 26 131/57 100 Ventilator 08/10/21 08:00 98.3 98.3 Labs: Laboratory Tests Test 08/09/21 17:41 08/10/21 05:30 08/10/21 08:00 Glucose (Fingerstick) 103 mg/dL White Blood Count 15.5 x10^3/uL Red Blood Count 3.23 x10^6/uL Hemoglobin 10.3 g/dL Hematocrit 31.5 % Mean Corpuscular Volume 98 fL Mean Corpuscular Hemoglobin 32 pg Mean Corpuscular Hemoglobin Concent 33 g/dL Red Cell Distribution Width 17.3 % Platelet Count 118 x10^3/uL Neutrophils (%) (Auto) 76 % Lymphocytes (%) (Auto) 8 % Monocytes (%) (Auto) 12 % Eosinophils (%) (Auto) 5 % Basophils (%) (Auto) 0 % Neutrophils # (Auto) 11.8 x10^3/uL Lymphocytes # (Auto) 1.2 x10^3/uL Monocytes # (Auto) 1.8 x10^3/uL Eosinophils # (Auto) 0.7 x10^3/uL Basophils # (Auto) 0.1 x10^3/uL Platelet Estimate Pending Sodium Level 137 mmol/L Potassium Level 4.1 mmol/L Chloride Level 100 mmol/L Carbon Dioxide Level 19 mmol/L Anion Gap 18 Blood Urea Nitrogen 108 mg/dL Creatinine 7.5 mg/dL Estimated GFR (Cockcroft-Gault) 7.5 Glucose Level 107 mg/dL Calcium Level 8.8 mg/dL Phosphorus Level 2.8 mg/dL O2 Saturation 99 % Arterial Blood pH 7.42 Arterial Blood pCO2 at Patient Temp 29 mmHg Arterial Blood pO2 at Patient Temp 147 mmHg Arterial Blood HCO3 19 mmol/L Arterial Blood Base Excess -5 mmol/L FiO2 35% vent BLOOD CULTURE Preliminary NO GROWTH AFTER 4 DAYS PE: GEN: intubated LUNGS: vent/diminished HEART: mildly tachycardic ABD: quiet, soft, NG bilious/brownish NEURO/PSYCH: sedated A/P: Stroke, resp failure, sepsis, ileus Leukocytosis, chronic anemia, elevated Alk Phos, ESRD COVID negative -- D/w Dr. Shaikh - hold on repeating CT A/P for now. Monitor OG output (?slowing) and continue TPN, PPI. Justicifation of Admission Dx: Justifications for Admission: Justification of Admission Dx: N/A ERINN HOBSON Aug 10, 2021 11:08
[2021-08-10] MEDS: DEXMEDETOMIDINE 400 MCG in IV NORMAL SALINE 100ML 96 ML IV PRN (11:12)
[2021-08-10 11:24] LABS: % ATYL 2 % (0-0); % BANDS 7 % (0-9); % EOS 3 % (0-5); % LYMPHS 8 % (24-48); % METAS 1 % (0-0); % MONOS 20 % (0-10); % MYELOS 1 % (0-0); % SEGS 58 % (35-66); PLT ESTIMATE DECREASED (ADEQUATE)
[2021-08-10 11:25] LABS: ANISOCYTOSIS PRESENT
[2021-08-10] MEDS: PANTOPRAZOLE IV PUSH 40 MG VIAL. IVP SCH (12:11)
[2021-08-10] MEDS: HEPARIN for SUB-Q USE 5,000 UNIT/ML VIAL. SQ SCH ×2 (12:12→21:36)
[2021-08-10] MEDS: ASPIRIN CHEWABLE 81 MG TABLET. PO SCH (12:30)
--- NOTE | 2021-08-10 12:47 | RAD ---
Exam Date: 08/10/2021 12:[address] HEAD/BRAIN WO Indication: Reason: Follow-up stroke, now has anisocoria left pupil larger than right, less res / Spl . Instructions: / History: . TECHNIQUE: Head CT was performed without intravenous contrast. One or more of the following dose re duction techniques were utilized: *Automated exposure control (AEC) *Adjustment of mA and/or kV according to patient size *Use of iterative reconstruction technique *CT scan done according to ALARA, or ALARA/IMAGE GENTLY COMPARISON: August 06, 2021 FINDINGS: Right frontoparietal subacute infarct is again seen. The ventricles and sulci are normal for the patient's stated age. There is no evidence of acute int racranial hemorrhage, extra-axial collection, mass effect, or midline shift. No lesion of the skull b ase or the calvarium is seen. The visualized mastoid air cells and orbits are normal in appearance. There is partial opacification of the paranasal sinuses. IMPRESSION: Right frontoparietal subacute infarct is again seen. No new acute territorial infarct is seen. No a cute intracranial hemorrhage. Electronically signed by: Mitchell Miranda MD (08/10/2021 12:45 PM) [id number]
[2021-08-10] MEDS: TPN PER PHARMACY MC PRN (12:48)
--- NOTE | 2021-08-10 12:56 | NUR ---
Pharmacy TPN Dosing Note S: FELICE GROVE is a 56 year old M Currently receiving Central Continuous TPN started 08/06/21 B:Pertinent PMH: High residuals w/tube feeding Height: 5 feet, 5 inches Weight: 78.1 kg Current diet: NPO LABS: Sodium: 137 Potassium: 4.1 Chloride: 100 Calcium: 8.8 Corrected Calcium: 10.16 Magnesium: 2.5 CO2: 19 SCr: 7.5 Glucose: 107 Albumin: 2.3 AST: 87 ALT: 59 TPN FORMULA: TPN TYPE: Central Continuous AMINO ACIDS: 90 gm DEXTROSE: 175 gm LIPIDS: 40 (MWF) gm SODIUM CHLORIDE: 110 mEq POTASSIUM CHLORIDE: 20 mEq POTASSIUM PHOSPHATE: 6 mmol CALCIUM: 5 mEq MULTIPLE VITAMIN: 10 ml TRACE ELEMENTS: 1 ml(s) TPN PLAN: Lipids removed per MWF schedule R: Continue TPN Will monitor electrolytes, glucose, and tolerance to TPN. Rena Duque RPH, 08/10/21 3025
--- NOTE | 2021-08-10 13:29 | PDOC ---
SANJEEV [employer] 08/10/21 1328: CARDIO Progress Notes Date and Time Date of Service 08/10/2021 Time of Evaluation 1300 Subjective Subjective: Other (intubated with MV) Vitals Vitals Vital Signs Date Time Temp Pulse Resp B/P (MAP) Pulse Ox O2 Delivery O2 Flow Rate FiO2 08/10/21 12:11 24 100 Ventilator 08/10/21 11:00 100 123/49 08/10/21 08:00 98.3 98.3 Weight Weight [ ] Input and Output Intake and Output Intake and Output 08/10/21 07:00 Intake Total 1985 ml Output Total 200 ml Balance 1785 ml Intake IV Total 1985 ml Output Urine Total 0 ml Gastric Drainage Total 200 ml Laboratory Labs Laboratory Tests Test 08/09/21 17:41 08/10/21 05:30 08/10/21 08:00 Glucose (Fingerstick) 103 mg/dL (70-99) White Blood Count 15.5 x10^3/uL (4.0-11.0) Red Blood Count 3.23 x10^6/uL (4.30-5.70) Hemoglobin 10.3 g/dL (13.0-17.5) Hematocrit 31.5 % (39.0-53.0) Mean Corpuscular Volume 98 fL (79-100) Mean Corpuscular Hemoglobin 32 pg (25-35) Mean Corpuscular Hemoglobin Concent 33 g/dL (31-37) Red Cell Distribution Width 17.3 % (11.5-14.5) Platelet Count 118 x10^3/uL (140-400) Neutrophils (%) (Auto) 76 % (31-73) Lymphocytes (%) (Auto) 8 % (24-48) Monocytes (%) (Auto) 12 % (0-9) Eosinophils (%) (Auto) 5 % (0-3) Basophils (%) (Auto) 0 % (0-3) Neutrophils # (Auto) 11.8 x10^3/uL (1.8-7.7) Lymphocytes # (Auto) 1.2 x10^3/uL (1.0-4.8) Monocytes # (Auto) 1.8 x10^3/uL (0.0-1.1) Eosinophils # (Auto) 0.7 x10^3/uL (0.0-0.7) Basophils # (Auto) 0.1 x10^3/uL (0.0-0.2) Segmented Neutrophils % 58 % (35-66) Band Neutrophils % 7 % (0-9) Lymphocytes % 8 % (24-48) Atypical Lymphocytes % (Manual) 2 % (0-0) Monocytes % 20 % (0-10) Eosinophils % 3 % (0-5) Metamyelocytes % 1 % (0-0) Myelocytes % 1 % (0-0) Platelet Estimate Decreased (ADEQUATE) Large Platelets Few Giant Platelets Few Anisocytosis Present Sodium Level 137 mmol/L (136-145) Potassium Level 4.1 mmol/L (3.5-5.1) Chloride Level 100 mmol/L (98-107) Carbon Dioxide Level 19 mmol/L (21-32) Anion Gap 18 (6-14) Blood Urea Nitrogen 108 mg/dL (8-26) Creatinine 7.5 mg/dL (0.7-1.3) Estimated GFR (Cockcroft-Gault) 7.5 Glucose Level 107 mg/dL (70-99) Calcium Level 8.8 mg/dL (8.5-10.1) Phosphorus Level 2.8 mg/dL (2.6-4.7) O2 Saturation 99 % (92-99) Arterial Blood pH 7.42 (7.35-7.45) Arterial Blood pCO2 at Patient Temp 29 mmHg (35-46) Arterial Blood pO2 at Patient Temp 147 mmHg (75-108) Arterial Blood HCO3 19 mmol/L (21-28) Arterial Blood Base Excess -5 mmol/L (-3-3) FiO2 35% vent Microbiology Micro Microbiology 08/06/21 Blood Culture - Preliminary, Resulted NO GROWTH AFTER 4 DAYS 08/03/21 Urine Culture - Final, Complete Review of Systems Constitutional: yes: unresponsive Physical Exam HEENT: Neck Supple W Full Motion Chest: Symmetric LUNGS: Other (diminished, intubated with MV) Heart: RRR (SR/ST with first degree AV block) Abdomen: Other (soft) Extremities: Other (1+bilateral le pitting edma) Neurology: other (off sedation, not awake ) Assessment Assessment 1. Encephalopathy, possible stroke with left-sided weakness. off sedation, not awake 2. Acute respiratory failure; multifactorial. s/p intubation 3. Leukocytosis, fevers, sepsis; BC + GPC 4. Septic shock 5. UTI with suprapubic cath 6. ESRD on HD. hyperkalemia resolved 7. Arrhythmia; bursts of NSVT, none further overnight 8. Acute on chronic diastolic CHF; Echo 04/13 with preserved LV systolic function. LHC 04/13 with normal coronaries 9. Valvular disease: mod to severe 10. SSS s/p leadless PPM 11. Moderate secondary pulmonary HTN 12. Hypothyroidism 13. Mildly elevated LFTs 14. Anemia, thrombocytopenia; 10.3/118 respectively Recommendations Ongoing antibiotic therapy, treatment of sepsis. restart levophed Fluid offloading via HD Keep Mg > 2.0 and K > 4.0 Continue heparin for VTE prophylaxis Supportive care from a CV standpoint Future consideration for TAVR Justicifation of Admission Dx: Justifications for Admission: Justification of Admission Dx: N/A MARIANN TIRADO MD 08/11/21 1839: CARDIO Progress Notes Plan Plan Late entry for 08/10/21 Patient seen and examined. Agree with above nurse practitioner note. Supportive care SANJEEV [employer] Aug 10, 2021 13:28 MARIANN TIRADO MD Aug 11, 2021 18:39
[2021-08-10] MEDS: NOREPINEPHRINE VIAL 32 MG in IV D5W 250ML IV PRN (13:30)
[2021-08-10] MEDS: ATORVASTATIN CALCIUM 20 MG TABLET PO SCH (21:00)
[2021-08-10] MEDS ORDERED: [UNRECOGNIZED DRUG - OTHER] IV SCH (22:00)
[2021-08-10] MEDS ORDERED: AMINO ACID IV SCH (22:00)
[2021-08-10] MEDS ORDERED: DEXTROSE 70% IV SCH (22:00)
[2021-08-10] MEDS ORDERED: TOTAL PARENTERAL NUTRITION IV SCH (22:00)
[2021-08-11] VITALS (27 sets, daily range): BP systolic 110–181; BP diastolic 48–81
[2021-08-11] MEDS: PIPERACILLIN/TAZOBACTAM 2.25 GM in IV NORMAL SALINE 50ML 50 ML IV SCH ×2 (00:21→05:40)
--- NOTE | 2021-08-11 06:19 | RAD ---
Single view chest dated 08/11/2021 6:16 AM: COMPARISON: 08/09/2021 Clinical Indication: Ventilator dependent. Findings: Single upright portable exam of the chest was performed. Heart and mediastinal contours are stable. E ndotracheal tube, nasogastric tube and right-sided IJ catheter in place, unchanged. Mild reticular no dular opacities throughout both lungs, similar to prior study. No new infiltrate or pleural effusion. No pneumothorax. IMPRESSION: 1. No significant interval change compared to 08/09/2021 Electronically signed by: Manny Grant MD (08/11/2021 6:17 AM) JAMEY
[2021-08-11 06:35] LABS: HEMATOCRIT 32.9 % (39.0-53.0); HEMOGLOBIN 10.7 g/dL (13.0-17.5); RED BLOOD COUNT 3.36 x10^6/uL (4.30-5.70); RED CELL DISTRIBUTION WIDTH 17.4 % (11.5-14.5); WHITE BLOOD COUNT 14.2 x10^3/uL (4.0-11.0)
[2021-08-11 06:51] LABS: CALCIUM 8.4 mg/dL (8.5-10.1); CREATININE 5.8 mg/dL (0.7-1.3); GFR 10.1; MAGNESIUM 2.2 mg/dL (1.8-2.4); PHOSPHORUS 3.8 mg/dL (2.6-4.7)
[2021-08-11] MEDS: PANTOPRAZOLE IV PUSH 40 MG VIAL. IVP SCH (08:00)
[2021-08-11] MEDS: HEPARIN for SUB-Q USE 5,000 UNIT/ML VIAL. SQ SCH ×2 (08:01→22:48)
[2021-08-11] MEDS: ASPIRIN CHEWABLE 81 MG TABLET. PO SCH (08:01)
--- NOTE | 2021-08-11 08:14 | PDOC ---
Infectious Disease Note Subjective: Subjective Patient is intubated sedated Discussed with RN Vital Signs: Vital Signs Vital Signs Date Time Temp Pulse Resp B/P (MAP) Pulse Ox O2 Delivery O2 Flow Rate FiO2 08/11/21 06:00 90 20 118/63 100 Ventilator 08/11/21 04:00 98.3 98.3 Physical Exam: PHYSICAL EXAM GENERAL: Sedated, orally intubated gentleman, not in distress. HEENT: Normocephalic atraumatic no conjunctival lesion. ETT OGT present LUNGS: Decreased breath sounds bilaterally. HEART: S1, S2 , Murmur present ABDOMEN: Soft, nontender. No organomegaly. Suprapubic catheter removed EXTREMITIES: Bilateral upper extremity edema, no cyanosis. SKIN: Blisters present over left upper extremity fingers. AV shunt in the right upper extremity is unremarkable. Left great toe ingrown nail NEUROLOGIC: The patient cannot be judged as sedated and intubated. Medications: Inpatient Meds: Medications reviewed. Labs: Lab Laboratory Tests Test 08/10/21 17:50 08/11/21 00:27 08/11/21 06:20 Glucose (Fingerstick) 101 mg/dL (70-99) 96 mg/dL (70-99) White Blood Count 14.2 x10^3/uL (4.0-11.0) Red Blood Count 3.36 x10^6/uL (4.30-5.70) Hemoglobin 10.7 g/dL (13.0-17.5) Hematocrit 32.9 % (39.0-53.0) Mean Corpuscular Volume 98 fL (79-100) Mean Corpuscular Hemoglobin 32 pg (25-35) Mean Corpuscular Hemoglobin Concent 33 g/dL (31-37) Red Cell Distribution Width 17.4 % (11.5-14.5) Platelet Count 148 x10^3/uL (140-400) Sodium Level 139 mmol/L (136-145) Potassium Level 4.0 mmol/L (3.5-5.1) Chloride Level 102 mmol/L (98-107) Carbon Dioxide Level 25 mmol/L (21-32) Anion Gap 12 (6-14) Blood Urea Nitrogen 77 mg/dL (8-26) Creatinine 5.8 mg/dL (0.7-1.3) Estimated GFR (Cockcroft-Gault) 10.1 Glucose Level 87 mg/dL (70-99) Calcium Level 8.4 mg/dL (8.5-10.1) Phosphorus Level 3.8 mg/dL (2.6-4.7) Magnesium Level 2.2 mg/dL (1.8-2.4) Objective: Assessment: MSSA Bacteremia 08/03/[address] head with frontoparietal infarct Encephalopathy. Fever. Improved Complicated urinary tract infection with sepsis. Hypotension. Improved Acute Respiratory failure, requiring intubation. End-stage renal disease, on hemodialysis. Congestive heart failure. History of hypertension. Leukocytosis Suprapubic catheter removed Left upper extremity blister Plan: Plan of Care Arterial line has been removed Change Zosyn to nafcillin Venous ultrasound bilateral upper extremity for the ruling out DVT Arterial ultrasound for left upper extremity Echo, cardiology is following Supportive care Follow repeat blood cultures negative so far from August 06, [address] chest abd and pelvis noted Repeat CT head noted Neurology following Critically ill Discussed with BRYSON GARCES MD Aug 11, 2021 08:14
[2021-08-11 09:14] LABS: BASE EXCESS ABG -3 mmol/L (-3-3); HCO3 ABG 22 mmol/L (21-28); PCO2 ABG 39 mmHg (35-46); PO2 ABG 115 mmHg (75-108); SAT O2 ABG 98 % (92-99)
[2021-08-11 09:56] LABS: FIO2 ABG 35% AC 20 500 5
--- NOTE | 2021-08-11 10:17 | PDOC ---
Date of Service: DATE: 08/11/21 TIME: 10:13 Objective: Objective: Reviewed chart - 200cc from OG yesterday Vital Signs: Vital Signs Date Time Temp Pulse Resp B/P (MAP) Pulse Ox O2 Delivery O2 Flow Rate FiO2 08/11/21 09:00 87 20 135/57 100 Ventilator 08/11/21 08:00 98.0 98.0 Labs: Laboratory Tests Test 08/10/21 17:50 08/11/21 00:27 08/11/21 06:20 08/11/21 09:00 Glucose (Fingerstick) 101 mg/dL 96 mg/dL White Blood Count 14.2 x10^3/uL Red Blood Count 3.36 x10^6/uL Hemoglobin 10.7 g/dL Hematocrit 32.9 % Mean Corpuscular Volume 98 fL Mean Corpuscular Hemoglobin 32 pg Mean Corpuscular Hemoglobin Concent 33 g/dL Red Cell Distribution Width 17.4 % Platelet Count 148 x10^3/uL Sodium Level 139 mmol/L Potassium Level 4.0 mmol/L Chloride Level 102 mmol/L Carbon Dioxide Level 25 mmol/L Anion Gap 12 Blood Urea Nitrogen 77 mg/dL Creatinine 5.8 mg/dL Estimated GFR (Cockcroft-Gault) 10.1 Glucose Level 87 mg/dL Calcium Level 8.4 mg/dL Phosphorus Level 3.8 mg/dL Magnesium Level 2.2 mg/dL O2 Saturation 98 % Arterial Blood pH 7.38 Arterial Blood pCO2 at Patient Temp 39 mmHg Arterial Blood pO2 at Patient Temp 115 mmHg Arterial Blood HCO3 22 mmol/L Arterial Blood Base Excess -3 mmol/L FiO2 35% ac 20 500 5 BLOOD CULTURE Final NO GROWTH AFTER 5 DAYS Imaging: UE US 08/11 pending CXR 08/11 IMPRESSION: 1. No significant interval change compared to 08/09/[address] 08/10 IMPRESSION: Right frontoparietal subacute infarct is again seen. No new acute territorial infarct is seen. No acute intracranial hemorrhage. PE: GEN: intubated - having upper extrem US LUNGS: vent/diminished HEART: RRR ABD: soft, quiet NEURO/PSYCH: sedated A/P: Stroke, resp failure, sepsis, ileus Chronic anemia, elevated Alk Phos, ESRD -- OG output slowing? Continue same for now. Justicifation of Admission Dx: Justifications for Admission: Justification of Admission Dx: N/A ERINN HOBSON Aug 11, 2021 10:17
--- NOTE | 2021-08-11 10:42 | PDOC ---
PULMONARY PROGRESS NOTES DATE: 08/11/21 TIME: 10:40 Subjective Patient remains unresponsive. He is off sedation for last 72 hours. Currently on AVAPS mode due to shortage of ventilators in the hospital. 35% FiO2 5 Upper extremity swelling Vitals Vital Signs Date Time Temp Pulse Resp B/P (MAP) Pulse Ox O2 Delivery O2 Flow Rate FiO2 08/11/21 09:00 87 20 135/57 100 Ventilator 08/11/21 08:00 98.0 98.0 Comments on vent sedated ros unable to obtain HEENT: Other (nc at perrl nose clear orally intubated neck no lad no thyromegaly) Lungs: Crackles Cardiovascular: S1, S2 Abdomen: Soft, Non-tender Extremities: No Edema Skin: No Rashes Labs Laboratory Tests Test 08/09/21 17:41 08/10/21 05:30 08/10/21 08:00 08/10/21 17:50 Glucose (Fingerstick) 103 mg/dL (70-99) 101 mg/dL (70-99) White Blood Count 15.5 x10^3/uL (4.0-11.0) Red Blood Count 3.23 x10^6/uL (4.30-5.70) Hemoglobin 10.3 g/dL (13.0-17.5) Hematocrit 31.5 % (39.0-53.0) Mean Corpuscular Volume 98 fL (79-100) Mean Corpuscular Hemoglobin 32 pg (25-35) Mean Corpuscular Hemoglobin Concent 33 g/dL (31-37) Red Cell Distribution Width 17.3 % (11.5-14.5) Platelet Count 118 x10^3/uL (140-400) Neutrophils (%) (Auto) 76 % (31-73) Lymphocytes (%) (Auto) 8 % (24-48) Monocytes (%) (Auto) 12 % (0-9) Eosinophils (%) (Auto) 5 % (0-3) Basophils (%) (Auto) 0 % (0-3) Neutrophils # (Auto) 11.8 x10^3/uL (1.8-7.7) Lymphocytes # (Auto) 1.2 x10^3/uL (1.0-4.8) Monocytes # (Auto) 1.8 x10^3/uL (0.0-1.1) Eosinophils # (Auto) 0.7 x10^3/uL (0.0-0.7) Basophils # (Auto) 0.1 x10^3/uL (0.0-0.2) Segmented Neutrophils % 58 % (35-66) Band Neutrophils % 7 % (0-9) Lymphocytes % 8 % (24-48) Atypical Lymphocytes % (Manual) 2 % (0-0) Monocytes % 20 % (0-10) Eosinophils % 3 % (0-5) Metamyelocytes % 1 % (0-0) Myelocytes % 1 % (0-0) Platelet Estimate Decreased (ADEQUATE) Large Platelets Few Giant Platelets Few Anisocytosis Present Sodium Level 137 mmol/L (136-145) Potassium Level 4.1 mmol/L (3.5-5.1) Chloride Level 100 mmol/L (98-107) Carbon Dioxide Level 19 mmol/L (21-32) Anion Gap 18 (6-14) Blood Urea Nitrogen 108 mg/dL (8-26) Creatinine 7.5 mg/dL (0.7-1.3) Estimated GFR (Cockcroft-Gault) 7.5 Glucose Level 107 mg/dL (70-99) Calcium Level 8.8 mg/dL (8.5-10.1) Phosphorus Level 2.8 mg/dL (2.6-4.7) O2 Saturation 99 % (92-99) Arterial Blood pH 7.42 (7.35-7.45) Arterial Blood pCO2 at Patient Temp 29 mmHg (35-46) Arterial Blood pO2 at Patient Temp 147 mmHg (75-108) Arterial Blood HCO3 19 mmol/L (21-28) Arterial Blood Base Excess -5 mmol/L (-3-3) FiO2 35% vent Test 08/11/21 00:27 08/11/21 06:20 08/11/21 09:00 Glucose (Fingerstick) 96 mg/dL (70-99) White Blood Count 14.2 x10^3/uL (4.0-11.0) Red Blood Count 3.36 x10^6/uL (4.30-5.70) Hemoglobin 10.7 g/dL (13.0-17.5) Hematocrit 32.9 % (39.0-53.0) Mean Corpuscular Volume 98 fL (79-100) Mean Corpuscular Hemoglobin 32 pg (25-35) Mean Corpuscular Hemoglobin Concent 33 g/dL (31-37) Red Cell Distribution Width 17.4 % (11.5-14.5) Platelet Count 148 x10^3/uL (140-400) Sodium Level 139 mmol/L (136-145) Potassium Level 4.0 mmol/L (3.5-5.1) Chloride Level 102 mmol/L (98-107) Carbon Dioxide Level 25 mmol/L (21-32) Anion Gap 12 (6-14) Blood Urea Nitrogen 77 mg/dL (8-26) Creatinine 5.8 mg/dL (0.7-1.3) Estimated GFR (Cockcroft-Gault) 10.1 Glucose Level 87 mg/dL (70-99) Calcium Level 8.4 mg/dL (8.5-10.1) Phosphorus Level 3.8 mg/dL (2.6-4.7) Magnesium Level 2.2 mg/dL (1.8-2.4) O2 Saturation 98 % (92-99) Arterial Blood pH 7.38 (7.35-7.45) Arterial Blood pCO2 at Patient Temp 39 mmHg (35-46) Arterial Blood pO2 at Patient Temp 115 mmHg (75-108) Arterial Blood HCO3 22 mmol/L (21-28) Arterial Blood Base Excess -3 mmol/L (-3-3) FiO2 35% ac 20 500 5 Laboratory Tests Test 08/10/21 17:50 08/11/21 00:27 08/11/21 06:20 08/11/21 09:00 Glucose (Fingerstick) 101 mg/dL (70-99) 96 mg/dL (70-99) White Blood Count 14.2 x10^3/uL (4.0-11.0) Red Blood Count 3.36 x10^6/uL (4.30-5.70) Hemoglobin 10.7 g/dL (13.0-17.5) Hematocrit 32.9 % (39.0-53.0) Mean Corpuscular Volume 98 fL (79-100) Mean Corpuscular Hemoglobin 32 pg (25-35) Mean Corpuscular Hemoglobin Concent 33 g/dL (31-37) Red Cell Distribution Width 17.4 % (11.5-14.5) Platelet Count 148 x10^3/uL (140-400) Sodium Level 139 mmol/L (136-145) Potassium Level 4.0 mmol/L (3.5-5.1) Chloride Level 102 mmol/L (98-107) Carbon Dioxide Level 25 mmol/L (21-32) Anion Gap 12 (6-14) Blood Urea Nitrogen 77 mg/dL (8-26) Creatinine 5.8 mg/dL (0.7-1.3) Estimated GFR (Cockcroft-Gault) 10.1 Glucose Level 87 mg/dL (70-99) Calcium Level 8.4 mg/dL (8.5-10.1) Phosphorus Level 3.8 mg/dL (2.6-4.7) Magnesium Level 2.2 mg/dL (1.8-2.4) O2 Saturation 98 % (92-99) Arterial Blood pH 7.38 (7.35-7.45) Arterial Blood pCO2 at Patient Temp 39 mmHg (35-46) Arterial Blood pO2 at Patient Temp 115 mmHg (75-108) Arterial Blood HCO3 22 mmol/L (21-28) Arterial Blood Base Excess -3 mmol/L (-3-3) FiO2 35% ac 20 500 5 Medications Active Scripts Medications Dose Route/Sig Max Daily Dose Days Date Category Tums (Calcium Carbonate) 200 Mg Tab.chew 400 Mg PO HS 04/19/21 Reported Sensipar (Cinacalcet Hcl) 60 Mg Tablet 1 Tab PO DAILY 30 04/19/21 Reported Ferric Citrate 210 Mg Tablet 2 Tab PO TID 30 04/19/21 Reported Lasix (Furosemide) 40 Mg Tablet 40 Mg PO BID 04/19/21 Reported Renagel (Sevelamer Hcl) 800 Mg Tablet 2 Tab PO TIDWMEALS 01/18/21 Reported Kapspargo Sprinkle (Metoprolol Succinate) 50 Mg Cap.spr.24 50 Mg PO DAILY 01/18/21 Reported Comments Chest x-ray reviewed dated 08/09/2021. Faint bilateral infiltrates CT chest reviewed dated 08/06/2021. Small basal pleural effusion with associated atelectasis. No definite consolidation seen Impression . IMPRESSION: 1. Acute hypoxemic respiratory failure, multifactorial. 2. Septic shock./Urosepsis 3. Fever related to above. 4. SARS-CoV-2 testing negative. 5. End-stage renal disease, on hemodialysis. 6. Possible stroke. 7. mssa bactremia 8. Encephalopathy. Off sedation but still nonresponsive. Could be related to stroke. 9. Suspected ischemic stroke Other comorbidities including end-stage renal disease, hypertension, chronic obstructive pulmonary disease, gastroesophageal reflux, ischemic cardiomyopathy. 10. Upper extremity swelling. Venous Dopplers ordered Plan . Updated 08/11 Continue vent support assist-control mode. setting reviewed no weaning. CT head with no new stroke. repeat bcx neg abx per id vasopressor to keep map 65 complicated urinary tract infection with septic shock. mssa bactremia Follow ID recommendations Hemodialysis per nephrology Follow blood cultures DVT GI prophylaxis CT chest reviewed. No focal consolidation. Small basal effusion with associated atelectasis. discussed w rn rt Off sedation for 72 hours. Patient still not responsive Venous Dopplers of upper extremities ordered. Discussed with RN and RT Updated 08/10 Continue vent support assist-control mode. setting reviewed no weaning. CT head today to rule out ischemic stroke. repeat bcx neg abx per id vasopressor to keep map 65 complicated urinary tract infection with septic shock. mssa bactremia Follow ID recommendations Hemodialysis per nephrology Follow blood cultures DVT GI prophylaxis CT chest reviewed. No focal consolidation. Small basal effusion with associated atelectasis. discussed w rn rt Off sedation for 72 hours. Patient still not responsive Discussed with RN and RT Updated 08/09 Continue vent support assist-control mode. setting reviewed repeat bcx neg abx per id vasopressor to keep map 65 complicated urinary tract infection with septic shock. mssa bactremia Follow ID recommendations Hemodialysis per nephrology Follow blood cultures DVT GI prophylaxis CT chest reviewed. No focal consolidation. Small basal effusion with associated atelectasis. discussed w rn rt Off sedation for 48 hours. If there is not wake up in the next few days, may need an MRI. Discussed with RN and RT Updated 08/08 Continue vent support assist-control mode. setting reviewed repeat bcx neg abx per id vasopressor to keep map 65 complicated urinary tract infection with septic shock. mssa bactremia Follow ID recommendations Hemodialysis per nephrology Follow blood cultures DVT GI prophylaxis CT chest reviewed. No focal consolidation. Small basal effusion with associated atelectasis. discussed w rn rt RUDI DAVALOS MD Aug 11, 2021 10:42
--- NOTE | 2021-08-11 11:25 | RAD ---
US EXTREM UPPER ARTERIAL UNILAT History: Reason: necrotic fingers / Spl. Instructions: / History: Pain Comparison: None. TECHNIQUE: Sonographic and Doppler evaluation of the left upper extremity arterial system. FINDINGS: Triphasic waveforms throughout the majority left upper extremity. Monophasic waveform within the left radial artery. No occlusion. No atheromatous plaque. Mildly elevated velocity within the distal ulna r artery measures 162 cm/s. IMPRESSION: 1. Mildly elevated velocity within the left distal ulnar artery, may indicate stenosis. 2. Monophasic waveform within the left radial artery, may relate to proximal stenosis. Electronically signed by: Davis Livingston DO (08/11/2021 11:23 AM) [id number]
--- NOTE | 2021-08-11 11:28 | RAD ---
US UPPER EXTREMITY VENOUS DUPLEX BILAT History: Reason: swelling / Spl. Instructions: / History: Comparison: None. Procedure: Color flow Doppler, Doppler spectral analysis, and 2D images are obtained with and without compression in the jugular vein, subclavian vein, axillary vein, brachial vein, radial vein, ulnar v ein, and basilic and cephalic veins. Findings: Degraded evaluation of the left distal upper extremity due to soft tissue swelling. Left radial and u lnar veins not well evaluated. Right internal jugular vein and proximal aspect of the right upper ext remity graft not evaluated due to overlying dressing. The majority of the right external graft is evaluated and appears patent. No evidence of deep vein th rombosis. Superficial vein thrombosis within the left cephalic and basilic veins at the level of the forearm. IMPRESSION: 1. Degraded evaluation, as described. No evidence of deep vein thrombosis within the imaged veins. 2. Superficial vein thrombosis within the left cephalic and basilic veins. Electronically signed by: Davis Livingston DO (08/11/2021 11:26 AM) [id number]
--- NOTE | 2021-08-11 11:30 | PDOC ---
[employer] PROGRESS NOTE Date of Service DOS: DATE: 08/11/21 TIME: 11:28 Chief Complaint Chief Complaint Respiratory failure requiring mechanical ventilation Severe sepsis Possible stroke Suprapubic catheter; CHF; COPD; hypertension; pneumonia, End-stage renal disease, on dialysis; history of peritonitis dialysis as well left kidney stents; suprapubic catheter. History of Present Illness History of Present Illness 08/11/2021 Patient seen and examined in the ICU He is on the BiPAP settings AVAPS Currently getting upper extremity ultrasound He has a superficial clot on the left. His right graft is working well Chart reviewed Discussed with RN Vent settings as AVAPS/500/20/30 5% OG clamped He remains critically ill 08/10/2021 Patient seen and examined in the ICU He remains on the vent AC/20/500/30 5% with 5 of PEEP Still off sedation but no response Has mitts on the right hand Currently getting dialysis Art line functioning well TPN hanging Discussed with RN Chart reviewed 08/09/2021 Patient seen and examined in the ICU He remains on the ventilator AC/20/500/30 5% with 5 of PEEP Has IV TPN Fentanyl is been off for a day and Versed to been off for 2 days but he still not waking up Discussed with RN Chart reviewed He remains very critically ill 08/08/2021 Patient seen and examined in the ICU He remains on the ventilator AC/20/500/30 5% with 5 of PEEP He has a mitt on the right hand Left arm with art line SCDs in place OG to suction Has TPN hanging Sedated with fentanyl Has IV Levophed and IV vasopressin hanging Chart reviewed Discussed with RN He remains extremely critically ill 08/07/2021 Patient seen and examined in the ICU He remains on the vent AC/20/500/30 5% with 5 of PEEP Has art line in place SCDs in place Has OG clamped On IV TPN Sedated with fentanyl Versed Has IV Levophed and vasopressin hanging Discussed with RN Chart reviewed He remains extremely critically ill 08/06/2021 Patient seen and examined in the ICU CT of the head showing a small stroke CT of the abdomen showing possible obstruction Discussed with RN Chart reviewed He is still intubated AC/26/500/1 100% with 10 of PEEP OG feeds are running but we are going to stop that and start some TPN if okay with nephrology Sedated with propofol Versed and fentanyl and paralyzed with vecuronium He remains extremely critically ill 08/05/2021 Patient seen and examined in the ICU He is currently on dialysis Discussed with RN He is still on the vent AC/24/500/30 5% with 5 of PEEP Has SCDs in place Holloway to bedside drainage Sedated with fentanyl and Versed Has IV Levophed hanging Also on IV neomycin Also on IV vasopressin Extremely critically ill 08/04/2021 Patient seen and examined in the ICU He is mechanically ventilated AC/16/500/40 5% with 5 of PEEP He is extremely hypotensive 63/40 currently despite having Levophed and vasopressin Discussed with RN were going to start Michael-Synephrine Tachycardic at 117 bpm Patient is extremely cool and clammy Had a fever to 103.5 last night currently at 102.9 He is extremely critically ill Vitals/I&O Vitals/I&O: Vital Signs Date Time Temp Pulse Resp B/P (MAP) Pulse Ox O2 Delivery O2 Flow Rate FiO2 08/11/21 11:00 89 20 113/56 100 Ventilator 08/11/21 08:00 98.0 98.0 I & O 08/10/21 08/10/21 08/11/21 15:00 23:00 07:00 Intake Total 2047 ml 743 ml Output Total 0 ml 0 ml 0 ml Balance 0 ml 2047 ml 743 ml Physical Exam Physical Exam: GENERAL: Sedated, orally intubated gentleman, not in distress. HEENT: Normocephalic atraumatic no conjunctival lesion. ETT OGT present LUNGS: Decreased breath sounds bilaterally. HEART: S1, S2 , Murmur present ABDOMEN: Soft, nontender. No organomegaly. Suprapubic catheter removed EXTREMITIES: Bilateral upper extremity edema, no cyanosis. SKIN: Blisters present over left upper extremity fingers. AV shunt in the right upper extremity is unremarkable. Left great toe ingrown nail NEUROLOGIC: The patient cannot be judged as sedated and intubated. General: Other (Intubated) Heart: Regular rate Lungs: Crackles Abdomen: Normal bowel sounds Extremities: No edema Skin: No significant lesion Labs Labs: Laboratory Tests Test 08/10/21 17:50 08/11/21 00:27 08/11/21 06:20 08/11/21 09:00 Glucose (Fingerstick) 101 mg/dL (70-99) 96 mg/dL (70-99) White Blood Count 14.2 x10^3/uL (4.0-11.0) Red Blood Count 3.36 x10^6/uL (4.30-5.70) Hemoglobin 10.7 g/dL (13.0-17.5) Hematocrit 32.9 % (39.0-53.0) Mean Corpuscular Volume 98 fL (79-100) Mean Corpuscular Hemoglobin 32 pg (25-35) Mean Corpuscular Hemoglobin Concent 33 g/dL (31-37) Red Cell Distribution Width 17.4 % (11.5-14.5) Platelet Count 148 x10^3/uL (140-400) Sodium Level 139 mmol/L (136-145) Potassium Level 4.0 mmol/L (3.5-5.1) Chloride Level 102 mmol/L (98-107) Carbon Dioxide Level 25 mmol/L (21-32) Anion Gap 12 (6-14) Blood Urea Nitrogen 77 mg/dL (8-26) Creatinine 5.8 mg/dL (0.7-1.3) Estimated GFR (Cockcroft-Gault) 10.1 Glucose Level 87 mg/dL (70-99) Calcium Level 8.4 mg/dL (8.5-10.1) Phosphorus Level 3.8 mg/dL (2.6-4.7) Magnesium Level 2.2 mg/dL (1.8-2.4) O2 Saturation 98 % (92-99) Arterial Blood pH 7.38 (7.35-7.45) Arterial Blood pCO2 at Patient Temp 39 mmHg (35-46) Arterial Blood pO2 at Patient Temp 115 mmHg (75-108) Arterial Blood HCO3 22 mmol/L (21-28) Arterial Blood Base Excess -3 mmol/L (-3-3) FiO2 35% ac 20 500 5 Assessment and Plan Assessmemt and Plan Problems Medical Problems: (1) Hypoxia Status: Acute (2) Respiratory failure Status: Acute (3) Sepsis Status: Acute (4) Stroke Status: Acute (5) UTI (urinary tract infection) Status: Acute Respiratory failure requiring mechanical ventilation Right frontal lobe stroke Severe sepsis Small stroke Suprapubic catheter; CHF; COPD; hypertension; pneumonia, End-stage renal disease, on dialysis; history of peritonitis dialysis as well left kidney stents; suprapubic catheter. 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 Medications: Current Medications Medications (Trade) Dose Ordered Sig/Kevin Route PRN Reason Start Time Stop Time Status Last Admin Dose Admin Sodium Chloride 110 meq/Potassium Chloride 20 meq/ Potassium Phosphate 6 mmol/ Calcium Gluconate 5 meq/ Multivitamins 10 ml/Zinc/Copper/ Manganese/ Selenium 1 ml/ Total Parenteral Nutrition/Amino Acids/Dextrose/ Fat Emulsion Intravenous 1,200 ml @ 50 mls/hr TPN CONT IV 08/10/21 22:00 08/11/21 21:59 08/10/21 23:07 Justifications for Admission Other Justification SBO DEVAN NICHOLE III DO Aug 11, 2021 11:30
[2021-08-11] MEDS: NAFCILLIN 2 GM in IV DEXTROSE 5% 100ML 100 ML IV SCH ×3 (11:47→22:47)
[2021-08-11] MEDS: TPN PER PHARMACY MC PRN (12:02)
--- NOTE | 2021-08-11 12:04 | NUR ---
Pharmacy TPN Dosing Note S: FELICE GROVE is a 56 year old M Currently receiving Central Continuous TPN started 08/06/21 B:Pertinent PMH: High residuals w/tube feeding Height: 5 feet, 5 inches Weight: 75.9 kg Current diet: NPO LABS: Sodium: 139 Potassium: 4 Chloride: 102 Calcium: 8.4 Corrected Calcium: 9.76 Magnesium: 2.2 CO2: 25 SCr: 5.8 Glucose: 87-108 Albumin: 2.3 AST: 87 ALT: 59 TPN FORMULA: TPN TYPE: Central Continuous AMINO ACIDS: 90 gm DEXTROSE: 175 gm LIPIDS: 40 (MWF) gm SODIUM CHLORIDE: 110 mEq POTASSIUM CHLORIDE: 20 mEq POTASSIUM PHOSPHATE: 6 mmol CALCIUM: 5 mEq MULTIPLE VITAMIN: 10 ml TRACE ELEMENTS: 1 ml(s) TPN PLAN: Continue same w/lipids per MWF schedule R: Continue TPN Will monitor electrolytes, glucose, and tolerance to TPN. Rena Duque RPH, 08/11/21 [id number]
--- NOTE | 2021-08-11 12:57 | PDOC ---
SANJEEV PASTOR LINOTYPIST 08/11/21 1257: CARDIO Progress Notes Date and Time Date of Service 08/11/2021 Time of Evaluation 1110 Subjective Subjective: Other (intubated with MV) Vitals Vitals Vital Signs Date Time Temp Pulse Resp B/P (MAP) Pulse Ox O2 Delivery O2 Flow Rate FiO2 08/11/21 12:49 100 Ventilator 08/11/21 12:00 98.1 94 20 110/48 98.1 Weight Weight [ ] Input and Output Intake and Output Intake and Output 08/11/21 07:00 Intake Total 2790 ml Output Total 0 ml Balance 2790 ml Intake Oral 0 ml IV Total 1349 ml Other 1441 ml Output Urine Total 0 ml Laboratory Labs Laboratory Tests Test 08/10/21 17:50 08/11/21 00:27 08/11/21 06:20 08/11/21 09:00 Glucose (Fingerstick) 101 mg/dL (70-99) 96 mg/dL (70-99) White Blood Count 14.2 x10^3/uL (4.0-11.0) Red Blood Count 3.36 x10^6/uL (4.30-5.70) Hemoglobin 10.7 g/dL (13.0-17.5) Hematocrit 32.9 % (39.0-53.0) Mean Corpuscular Volume 98 fL (79-100) Mean Corpuscular Hemoglobin 32 pg (25-35) Mean Corpuscular Hemoglobin Concent 33 g/dL (31-37) Red Cell Distribution Width 17.4 % (11.5-14.5) Platelet Count 148 x10^3/uL (140-400) Sodium Level 139 mmol/L (136-145) Potassium Level 4.0 mmol/L (3.5-5.1) Chloride Level 102 mmol/L (98-107) Carbon Dioxide Level 25 mmol/L (21-32) Anion Gap 12 (6-14) Blood Urea Nitrogen 77 mg/dL (8-26) Creatinine 5.8 mg/dL (0.7-1.3) Estimated GFR (Cockcroft-Gault) 10.1 Glucose Level 87 mg/dL (70-99) Calcium Level 8.4 mg/dL (8.5-10.1) Phosphorus Level 3.8 mg/dL (2.6-4.7) Magnesium Level 2.2 mg/dL (1.8-2.4) O2 Saturation 98 % (92-99) Arterial Blood pH 7.38 (7.35-7.45) Arterial Blood pCO2 at Patient Temp 39 mmHg (35-46) Arterial Blood pO2 at Patient Temp 115 mmHg (75-108) Arterial Blood HCO3 22 mmol/L (21-28) Arterial Blood Base Excess -3 mmol/L (-3-3) FiO2 35% ac 20 500 5 Test 08/11/21 11:50 Glucose (Fingerstick) 108 mg/dL (70-99) Microbiology Micro Microbiology 08/06/21 Blood Culture - Final, Complete NO GROWTH AFTER 5 DAYS 08/03/21 Urine Culture - Final, Complete Review of Systems Constitutional: yes: unresponsive Physical Exam HEENT: Neck Supple W Full Motion Chest: Symmetric LUNGS: Other (diminished, intubated with MV) Heart: RRR (SR/ST with first degree AV block) Abdomen: Other (soft) Extremities: Other (1+bilateral le pitting edma) Neurology: other (off sedation, moves with stimulation) Assessment Assessment 1. Right frontoparietal subacute infarct 2. Acute respiratory failure; multifactorial. s/p intubation 3. Leukocytosis, fevers, sepsis; BC + GPC 4. Septic shock 5. UTI with suprapubic cath 6. ESRD on HD. hyperkalemia resolved 7. Arrhythmia; presently SR/ST with long first degree AV block. no NSVT 8. Acute on chronic diastolic CHF; Echo 04/13 with preserved LV systolic function. LHC 04/13 with normal coronaries 9. Valvular disease: mod to severe 10. SSS s/p leadless PPM 11. Moderate secondary pulmonary HTN 12. Hypothyroidism 13. Mildly elevated LFTs 14. Anemia, thrombocytopenia; 10.3/118 respectively 15. BUE edema: Superficial vein thrombosis within the left cephalic and basilic veins. right external graft patent without thrombosis Arterial duplex also indicated possible left radial stenosis and distal ulnar stenosis however 2-3+ pulse 16. Encephalopathy: now off sedation Recommendations Ongoing antibiotic therapy, treatment of sepsis. pressor as warranted Fluid offloading via HD Continue heparin for VTE prophylaxis Supportive care from a CV standpoint Future consideration for TAVR Secondary prevention as able Justicifation of Admission Dx: Justifications for Admission: Justification of Admission Dx: N/A MARIANN TIRADO MD 08/11/21 1851: CARDIO Progress Notes Plan Plan The patient was seen and interviewed as well as examined at the bedside. The chart was reviewed. The case was discussed. Agree with the plan of care. SANJEEV PASTOR APRN Aug 11, 2021 12:57 MARIANN TIRADO MD Aug 11, 2021 18:51
--- NOTE | 2021-08-11 13:57 | PDOC ---
DATE OF SERVICE DATE: 08/11/21 TIME: 13:53 SUBJECTIVE ROS Intubated, on MV Unresponsive , off sedation OBJECTIVE Vital Signs Vital Signs Date Time Temp Pulse Resp B/P (MAP) Pulse Ox O2 Delivery O2 Flow Rate FiO2 08/11/21 12:49 100 Ventilator 08/11/21 12:00 98.1 94 20 110/48 98.1 I & 0 Intake and Output 08/11/21 07:00 Intake Total 2790 ml Output Total 0 ml Balance 2790 ml Intake Oral 0 ml IV Total 1349 ml Other 1441 ml Output Urine Total 0 ml PHYSICAL EXAM Physical Exam GENERAL: orally intubated HEENT: ETT + NECK: Supple. LUNGS: Decreased breath sounds bilaterally. HEART: S1, S2 regular. ABDOMEN: Soft, nontender. No organomegaly. has chronic Suprapubic EXTREMITIES: No cyanosis. AV shunt in the right upper extremity SKIN: .No Rash NEUROLOGIC: ntubated, not waking up off sedation DIAGNOSIS/ASSESSMENT Assessment & Plan ESRD - on HD TTS ,Currently no indication for dialysis today Encephalopathy stroke with left-sided weakness -Cerebrovascular accident. CT h ead with frontoparietal infarct Acute respiratory failure; multifactorial. s/p intubation Leukocytosis/ ,Septic shock; MSSA Bacteremia 08/03/2021 Complicated urinary tract infection with sepsis. Acute on chronic diastolic CHF; Echo 04/13 with preserved LV systolic function. LHC 04/13 with normal coronaries Valvular disease: mod to severe SSS s/p leadless PPM placed at [facility] Moderate secondary pulmonary HTN Hypothyroidism Anemia Hgb trending down , per primary . Hold CLIFF due to Possible CVA COMMENT/RELEVANT DATA Meds Current Medications Medications (Trade) Dose Ordered Sig/Kevin Start Time Stop Time Status Last Admin Dose Admin Acetaminophen (Children'S Tylenol) 160 mg PRN Q6HRS PRN 08/09/21 20:30 UNV Acetaminophen (Tylenol Supp) 650 mg PRN Q6HRS PRN 08/03/21 20:45 08/04/21 20:25 650 MG Acetaminophen (Tylenol) 650 mg PRN Q6HRS PRN 08/03/21 20:45 Albumin Human 200 ml @ 200 mls/hr 1X PRN PRN 08/07/21 05:30 08/07/21 11:29 DC Aspirin (Aspirin Chewable) 81 mg [id number] 08/06/21 11:45 08/11/21 08:01 81 MG Atorvastatin Calcium (Lipitor) 20 mg QHS 08/06/21 21:00 08/09/21 21:00 20 MG Atropine Sulfate (ATROPINE 0.5mg SYRINGE) 0.5 mg PRN Q5MIN PRN 08/03/21 15:00 Chlorhexidine Gluconate (Peridex) 15 ml BID 08/03/21 21:00 08/04/21 19:49 DC Ciprofloxacin/ Dextrose 200 ml @ 200 mls/hr DAILY 08/04/21 09:00 08/05/21 09:18 DC 08/04/21 11:38 200 MLS/HR Dexmedetomidine HCl 400 mcg/ Sodium Chloride 100 ml @ 3.725 mls/ hr CONT PRN 08/03/21 15:00 08/10/21 11:12 3.725 MLS/HR Dextrose (Dextrose 50%-Water Syringe) 12.5 gm PRN Q15MIN PRN 08/05/21 13:00 08/06/21 17:47 25 GM Etomidate (Amidate) 20 mg STK-MED ONCE 08/03/21 17:04 08/03/21 17:04 DC Famotidine (Pepcid Vial) 20 mg QODAY 08/04/21 09:00 08/06/21 14:25 DC 08/06/21 09:08 20 MG Fentanyl Citrate 30 ml @ 2.5 mls/hr CONT PRN 08/03/21 15:00 08/11/21 01:38 1.25 MLS/HR Glycerin/ Hypromellose/ Polyethylene (Artificial Tears) 1 drop PRN Q1HR PRN 08/03/21 15:00 Heparin Sodium (Porcine) (Heparin Sodium) 5,000 unit Q12HR 08/05/21 11:00 08/11/21 08:01 5,000 UNIT Info (CONTRAST GIVEN -- Rx MONITORING) 1 each PRN DAILY PRN 08/06/21 09:45 08/08/21 09:44 DC Info (PHARMACY MONITORING -- do not chart) 1 each PRN DAILY PRN 08/10/21 07:45 Info (Tpn Per Pharmacy) 1 each PRN DAILY PRN 08/06/21 12:30 08/11/21 12:02 1 EACH Iohexol (Omnipaque 240 Mg/ml) 50 ml STK-MED ONCE 08/04/21 12:36 08/04/21 12:36 DC Iohexol (Omnipaque 300 Mg/ml) 60 ml 1X ONCE 08/06/21 09:30 08/06/21 09:31 DC 08/06/21 09:30 60 ML Lidocaine HCl (Buffered Lidocaine 1%) 3 ml 1X ONCE 08/04/21 13:30 08/04/21 13:31 DC 08/04/21 13:15 2 ML Lidocaine HCl (Xylocaine-Mpf 1% 5ml Vial) 5 ml 1X ONCE 08/04/21 09:30 08/04/21 09:31 DC Magnesium Sulfate 50 ml @ 25 mls/hr 1X ONCE 08/05/21 16:30 08/05/21 18:29 DC 08/05/21 16:59 25 MLS/HR Midazolam HCl (Versed) 5 mg PRN 1X PRN 08/03/21 15:00 08/04/21 14:59 DC Nafcillin Sodium 2 gm/Dextrose 100 ml @ 200 mls/hr Q4HRS 08/11/21 12:00 08/11/21 11:47 200 MLS/HR Norepinephrine Bitartrate 32 mg/ Dextrose 250 ml @ 3.492 mls/ hr CONT PRN 08/04/21 05:30 08/10/21 13:30 1.746 MLS/HR Norepinephrine Bitartrate 8 mg/ Dextrose 258 ml @ 14.416 mls/ hr CONT PRN 08/03/21 15:00 08/04/21 05:29 DC 08/04/21 03:52 141.274 MLS/HR Pantoprazole Sodium (PROTONIX VIAL for IV PUSH) 40 mg DAILYAC 08/06/21 15:00 08/11/21 08:00 40 MG Phenylephrine HCl 50 mg/Sodium Chloride 255 ml @ 11.399 mls/ hr CONT PRN 08/04/21 06:30 08/05/21 05:38 22.797 MLS/HR Piperacillin Sod/ Tazobactam Sod 2.25 gm/Sodium Chloride 50 ml @ 100 mls/hr Q6HRS 08/04/21 12:00 UNV Piperacillin Sod/ Tazobactam Sod 4.5 gm/Sodium Chloride 100 ml @ 200 mls/hr 1X ONCE 08/03/21 11:15 08/03/21 11:44 DC 08/03/21 11:26 200 MLS/HR Propofol 100 ml @ 2.235 mls/ hr CONT PRN 08/03/21 15:00 Rocuronium [place] (Zemuron) 50 mg STK-MED ONCE 08/03/21 17:04 08/03/21 17:04 DC Sodium Chloride (Normal Saline Flush) 10 ml 1X PRN PRN 08/07/21 05:30 08/08/21 05:29 DC Sodium Chloride 90 meq/Potassium Chloride 20 meq/ Calcium Gluconate 10 meq/ Multivitamins 10 ml/Zinc/Copper/ Manganese/ Selenium 1 ml/ Total Parenteral Nutrition/Amino Acids/Dextrose 1,200 ml @ 50 mls/hr TPN CONT 08/07/21 22:00 08/08/21 21:59 DC 08/07/21 21:26 50 MLS/HR Sodium Chloride 90 meq/Potassium Chloride 20 meq/ Calcium Gluconate 10 meq/ Multivitamins 10 ml/Zinc/Copper/ Manganese/ Selenium 1 ml/ Total Parenteral Nutrition/Amino Acids/Dextrose/ Fat Emulsion Intravenous 1,200 ml @ 50 mls/hr TPN CONT 08/06/21 22:00 08/07/21 21:59 DC 08/06/21 21:58 50 MLS/HR Sodium Chloride 110 meq/Potassium Chloride 20 meq/ Calcium Gluconate 10 meq/ Multivitamins 10 ml/Zinc/Copper/ Manganese/ Selenium 1 ml/ Total Parenteral Nutrition/Amino Acids/Dextrose 1,200 ml @ 50 mls/hr TPN CONT 08/08/21 22:00 08/09/21 21:59 DC 08/08/21 22:09 50 MLS/HR Sodium Chloride 110 meq/Potassium Chloride 20 meq/ Potassium Phosphate 6 mmol/ Calcium Gluconate 5 meq/ Multivitamins 10 ml/Zinc/Copper/ Manganese/ Selenium 1 ml/ Total Parenteral Nutrition/Amino Acids/Dextrose/ Fat Emulsion Intravenous 1,200 ml @ 50 mls/hr TPN CONT 08/11/21 22:00 08/12/21 21:59 Sodium Phosphate 15 mmol/Sodium Chloride 105 ml @ 105 mls/hr 1X ONCE 08/08/21 14:00 08/08/21 14:59 DC 08/08/21 15:22 105 MLS/HR Vancomycin HCl (Vanco Per Pharmacy) 1 each PRN DAILY PRN 08/04/21 08:00 UNV Vancomycin HCl (Vancomycin Random Level) 1 each 1X ONCE 08/05/21 06:00 08/05/21 06:01 DC 08/05/21 06:14 1 EACH Vancomycin HCl 1.5 gm/Sodium Chloride 500 ml @ 250 mls/hr 1X ONCE 08/03/21 12:00 08/03/21 13:59 DC 08/03/21 12:00 250 MLS/HR Vancomycin HCl 500 mg/Sodium Chloride 100 ml @ 100 mls/hr QTUTHSA 08/05/21 16:00 08/07/21 09:38 DC 08/05/21 15:59 100 MLS/HR Vasopressin 20 unit/Dextrose 101 ml @ 12 mls/hr CONT PRN 08/04/21 03:45 08/08/21 22:04 12 MLS/HR Vecuronium [place] (Norcuron Bolus) 6 mg PRN 1X PRN 08/03/21 15:00 08/04/21 14:59 DC Lab Laboratory Tests Test 08/10/21 17:50 08/11/21 00:27 08/11/21 06:20 08/11/21 09:00 Glucose (Fingerstick) 101 mg/dL (70-99) 96 mg/dL (70-99) White Blood Count 14.2 x10^3/uL (4.0-11.0) Red Blood Count 3.36 x10^6/uL (4.30-5.70) Hemoglobin 10.7 g/dL (13.0-17.5) Hematocrit 32.9 % (39.0-53.0) Mean Corpuscular Volume 98 fL (79-100) Mean Corpuscular Hemoglobin 32 pg (25-35) Mean Corpuscular Hemoglobin Concent 33 g/dL (31-37) Red Cell Distribution Width 17.4 % (11.5-14.5) Platelet Count 148 x10^3/uL (140-400) Sodium Level 139 mmol/L (136-145) Potassium Level 4.0 mmol/L (3.5-5.1) Chloride Level 102 mmol/L (98-107) Carbon Dioxide Level 25 mmol/L (21-32) Anion Gap 12 (6-14) Blood Urea Nitrogen 77 mg/dL (8-26) Creatinine 5.8 mg/dL (0.7-1.3) Estimated GFR (Cockcroft-Gault) 10.1 Glucose Level 87 mg/dL (70-99) Calcium Level 8.4 mg/dL (8.5-10.1) Phosphorus Level 3.8 mg/dL (2.6-4.7) Magnesium Level 2.2 mg/dL (1.8-2.4) O2 Saturation 98 % (92-99) Arterial Blood pH 7.38 (7.35-7.45) Arterial Blood pCO2 at Patient Temp 39 mmHg (35-46) Arterial Blood pO2 at Patient Temp 115 mmHg (75-108) Arterial Blood HCO3 22 mmol/L (21-28) Arterial Blood Base Excess -3 mmol/L (-3-3) FiO2 35% ac 20 500 5 Test 08/11/21 11:50 Glucose (Fingerstick) 108 mg/dL (70-99) Results All relevant outside records, renal labs, imaging studies, telemetry/EKG's were reviewed. Justicifation of Admission Dx: Justifications for Admission: Justification of Admission Dx: N/A MARIYA NORMAN MD Aug 11, 2021 13:57
--- NOTE | 2021-08-11 15:50 | NUR ---
Wound/Ostomy Care Wound Type/Assessment: Wound care consult for left arm (AC area) skin tear and blister/ischemic changes to hands/fingers and toes possibly d/t Levophed. Per Josef, STEVEDORE DOCK, pt is off the Levophed now. Bilateral hands and fingers noted to have dark red blisters and purple/dusky red in appearance, right foot and toes also dusky red/purple in color. Right ear noted with a DTI, bilateral buttocks/coccyx has a stage 3 PU, mid back with stage 2 PU. Right lateral back is red but blanchable foam was applied for protection. All wounds cleansed, measured and pictured. No other wounds noted on head to toe skin assessment. Treatment Recommendations/Plan: Cleanse all wounds with wound wash or saline and pat dry. Coccyx/buttocks, mid back, left arm: apply Xeroform and foam, change every 2-3 days. Right ear, bilateral hands/fingers, right foot/toes: elevate with pillows and offload areas, rooke boots for feet Education provided: pt intubated, unable to educate. POC communicated with STEVEDORE DOCK Offloading surface/device: pillows, purple wedge, Rooke boots Recommended Referrals/Tests: n/a Discharge Recommendations for dressings: same as above, WC team will follow up on 08/18
--- NOTE | 2021-08-11 16:02 | CARD ---
MR#: [id number] Date of Study: 08/11/2021 Ordering Physician: BRYSON VALERIO, Referring Physician: BRYSON VALERIO, Tech: Sydni Atkins [facility] APPROVED REPORT EXAM: Two-dimensional and M-mode echocardiogram with Doppler and color Doppler. Other Information Quality : Technically LimitedHR: 94bpm Rhythm : NSR INDICATION Congestive Heart Failure RISK FACTORS Hypertension Hyperlipidemia 2D DIMENSIONS IVSd1.3 (0.7-1.1cm)LVDd3.7 (3.9-5.9cm) LVOT Diameter1.8 (1.8-2.4cm)PWd1.3 (0.7-1.1cm) LVDs2.3 (2.5-4.0cm)FS (%) 40.6 % SV36.0 ml Aortic Valve AoV Peak Chip.370.4cm/sAoV VTI65.7cm AO Peak GR.54.9mmHgAO Mean GR.31mmHg Mitral Valve MV E Peak Gr.28mmHgMV E Mean Gr.8mmHg Tricuspid Valve TR P. [id number] Peak Gr.22mmHg LEFT VENTRICLE The left ventricle is normal size. There is mild to moderate concentric left ventricular hypertrophy. The left ventricular systolic function is normal and the ejection fraction is within normal range. L V ejection fraction of 60 to 65%. There is normal LV segmental wall motion. RIGHT VENTRICLE The right ventricle is normal size. There is normal right ventricular wall thickness. The right ventr icular systolic function is normal. ATRIA The left atrium is mildly dilated. The right atrium size is normal. The interatrial septum is intact with no evidence for an atrial septal defect or patent foramen ovale as noted on 2-D or Doppler imagi ng. AORTIC VALVE The aortic valve is calcified and displays decreased opening. Doppler and Color Flow revealed mild ao rtic regurgitation. Technically difficult study with at least moderate aortic stenosis. MITRAL VALVE The mitral valve is normal in structure and function. There is no evidence of mitral valve prolapse. There is mild mitral valve stenosis. Doppler and Color-flow revealed trace to mild mitral regurgitati on. TRICUSPID VALVE The tricuspid valve is normal in structure and function. Doppler and Color Flow revealed trace tricus pid regurgitation. Estimated ejection fraction 30 mmHg. There is no tricuspid valve stenosis. PULMONIC VALVE Doppler and Color Flow revealed no pulmonic valvular regurgitation. GREAT VESSELS The aortic root is normal in size. The ascending aorta is normal in size. The IVC is normal in size a nd collapses >50% with inspiration. PERICARDIAL EFFUSION There is no evidence of significant pericardial effusion. Critical Notification Critical Value: No <Conclusion> The left ventricular systolic function is normal and the ejection fraction is within normal range. LV ejection fraction of 60 to 65%. There is mild to moderate concentric left ventricular hypertrophy. The aortic valve is calcified and displays decreased opening. Doppler and Color Flow revealed mild aortic regurgitation. Technically difficult study with at least moderate aortic stenosis. There is mild mitral valve stenosis. Doppler and Color-flow revealed trace to mild mitral regurgitation. Doppler and Color Flow revealed trace tricuspid regurgitation. Estimated ejection fraction 30 mmHg. Signed by : Chuck Merritt MD Electronically Approved : 08/11/2021 16:01:40
--- NOTE | 2021-08-11 18:33 | NUR ---
fentanyl sedation turned off at 1200. Pt tolerated no sedation until 1829. Pt became tachypneic with abdominal breathing. Respirations at 35 per min. Pt then started back on fentanyl at 25mcg/hr. Addendum: 08/11/21 at 183 by MENDOZA FERRARI RN RN Amended: Links added.
[2021-08-11] MEDS: ATORVASTATIN CALCIUM 20 MG TABLET PO SCH (21:00)
[2021-08-11] MEDS ORDERED: DEXTROSE 70% IV SCH (22:00)
[2021-08-11] MEDS ORDERED: [UNRECOGNIZED DRUG - OTHER] IV SCH (22:00)
[2021-08-11] MEDS ORDERED: AMINO ACID IV SCH (22:00)
[2021-08-11] MEDS ORDERED: TOTAL PARENTERAL NUTRITION IV SCH (22:00)
[2021-08-12] VITALS (23 sets, daily range): BP systolic 89–175; BP diastolic 44–76
[2021-08-12] MEDS: NAFCILLIN 2 GM in IV DEXTROSE 5% 100ML 100 ML IV SCH ×6 (01:00→20:17)
[2021-08-12 07:57] LABS: BASE EXCESS ABG -6 mmol/L (-3-3); HCO3 ABG 19 mmol/L (21-28); PCO2 ABG 35 mmHg (35-46); PO2 ABG 147 mmHg (75-108); SAT O2 ABG 99 % (92-99)
[2021-08-12 08:03] LABS: FIO2 ABG 35
--- NOTE | 2021-08-12 08:10 | PDOC ---
Infectious Disease Note Subjective: Subjective Patient is intubated sedated Has blood-tinged NGT output Discussed with RN Vital Signs: Vital Signs Vital Signs Date Time Temp Pulse Resp B/P (MAP) Pulse Ox O2 Delivery O2 Flow Rate FiO2 08/12/21 07:59 100 Ventilator 08/12/21 06:00 98 20 95/46 08/12/21 04:00 98.3 98.3 08/11/21 20:28 15.0 Physical Exam: PHYSICAL EXAM GENERAL: Sedated, orally intubated gentleman, not in distress. HEENT: Normocephalic atraumatic no conjunctival lesion. ETT OGT present LUNGS: Decreased breath sounds bilaterally. HEART: S1, S2 , Murmur present ABDOMEN: Soft, nontender. No organomegaly. Suprapubic catheter removed EXTREMITIES: Bilateral upper extremity edema, no cyanosis. SKIN: Blisters with ischemic changes present over left upper extremity fingers. Good radial pulse. AV shunt in the right upper extremity is unremarkable. Left great toe ingrown nail NEUROLOGIC: The patient cannot be judged as sedated and intubated. Medications: Inpatient Meds: Medications reviewed. Labs: Lab Laboratory Tests Test 08/11/21 09:00 08/11/21 11:50 08/12/21 07:45 O2 Saturation 98 % (92-99) 99 % (92-99) Arterial Blood pH 7.38 (7.35-7.45) 7.36 (7.35-7.45) Arterial Blood pCO2 at Patient Temp 39 mmHg (35-46) 35 mmHg (35-46) Arterial Blood pO2 at Patient Temp 115 mmHg (75-108) 147 mmHg (75-108) Arterial Blood HCO3 22 mmol/L (21-28) 19 mmol/L (21-28) Arterial Blood Base Excess -3 mmol/L (-3-3) -6 mmol/L (-3-3) FiO2 35% ac 20 500 5 35 Glucose (Fingerstick) 108 mg/dL (70-99) Objective: Assessment: MSSA Bacteremia 08/03/2021 ECHO 08/11 Moderate Repeat BC neg from 08/[address] head with frontoparietal infarct Encephalopathy. Fever. Improved Complicated urinary tract infection with sepsis. Hypotension. Improved Acute Respiratory failure, requiring intubation. End-stage renal disease, on hemodialysis. Congestive heart failure. History of hypertension. Leukocytosis likely reactive from GI bleed Suprapubic catheter removed Left upper extremity blisters, ischemic changes, has good radial pulse Superficial venous thrombosis Plan: Plan of Care Leukocytosis likely reactive from GI bleed Lt upper ext Arterial line has been removed Cont nafcillin,was on Zosyn Venous ultrasound bilateral upper extremity neg for DVT,has sup venous thrombosis Arterial ultrasound for left upper extremity reviewed ,may need vascular consult 2 D Echo reviewed has ,, cardiology is following,will need RADHA Supportive care Follow repeat blood cultures negative so far from August 06, [address] chest abd and pelvis noted Repeat CT head noted Neurology following Local skin care Critically ill Discussed with BRYSON GARCES MD Aug 12, 2021 08:10
[2021-08-12] MEDS: PANTOPRAZOLE IV PUSH 40 MG VIAL. IVP SCH (08:29)
[2021-08-12] MEDS: ASPIRIN CHEWABLE 81 MG TABLET. PO SCH (08:29)
[2021-08-12 08:57] LABS: CALCIUM 8.7 mg/dL (8.5-10.1); CREATININE 7.5 mg/dL (0.7-1.3); GFR 7.5; MAGNESIUM 2.5 mg/dL (1.8-2.4); PHOSPHORUS 6.1 mg/dL (2.6-4.7); POTASSIUM 4.8 mmol/L (3.5-5.1)
[2021-08-12] MEDS: HEPARIN for SUB-Q USE 5,000 UNIT/ML VIAL. SQ SCH ×2 (09:00→22:58)
--- NOTE | 2021-08-12 09:25 | PDOC ---
DATE OF SERVICE DATE: 08/12/21 TIME: 09:24 SUBJECTIVE ROS Intubated, Unresponsive , off sedation Currently on AVAPS mode due to shortage of ventilators in the hospital. OBJECTIVE Vital Signs Vital Signs Date Time Temp Pulse Resp B/P (MAP) Pulse Ox O2 Delivery O2 Flow Rate FiO2 08/12/21 08:23 100 15.0 08/12/21 07:59 Ventilator 08/12/21 06:00 98 20 95/46 08/12/21 04:00 98.3 98.3 I & 0 Intake and Output 08/12/21 07:00 Intake Total 1559 ml Output Total 450 ml Balance 1109 ml Intake Oral 0 ml IV Total 1559 ml Output Urine Total 0 ml Gastric Drainage Total 450 ml PHYSICAL EXAM Physical Exam GENERAL: orally intubated HEENT: ETT + NECK: Supple. LUNGS: Decreased breath sounds bilaterally. HEART: S1, S2 regular. ABDOMEN: Soft, nontender. No organomegaly. has chronic Suprapubic EXTREMITIES: ischemic changes present left upper extremity fingers. AV shunt in the right upper extremity SKIN: .No Rash NEUROLOGIC: intubated, not waking up off sedation DIAGNOSIS/ASSESSMENT Assessment & Plan ESRD - on HD TTS ,Off pressors, BP low . Dialysis today ,may not tolerate UF , discussed treatment plan with [facility] Encephalopathy stroke with left-sided weakness -Cerebrovascular accident. CT head with frontoparietal infarct Acute respiratory failure; multifactorial. s/p intubation Leukocytosis/ ,Septic shock; MSSA Bacteremia 08/03/2021 Complicated urinary tract infection with sepsis. Acute on chronic diastolic CHF; Echo 04/13 with preserved LV systolic function. LHC 04/13 with normal coronaries Valvular disease: mod to severe SSS s/p leadless PPM placed at [facility] Moderate secondary pulmonary HTN Hypothyroidism Anemia Hgb trending down , per primary . Hold CLIFF due to Possible CVA COMMENT/RELEVANT DATA Meds Current Medications Medications (Trade) Dose Ordered Sig/Kevin Start Time Stop Time Status Last Admin Dose Admin Acetaminophen (Children'S Tylenol) 160 mg PRN Q6HRS PRN 08/09/21 20:30 UNV Acetaminophen (Tylenol Supp) 650 mg PRN Q6HRS PRN 08/03/21 20:45 08/04/21 20:25 650 MG Acetaminophen (Tylenol) 650 mg PRN Q6HRS PRN 08/03/21 20:45 Albumin Human 200 ml @ 200 mls/hr 1X PRN PRN 08/07/21 05:30 08/07/21 11:29 DC Aspirin (Aspirin Chewable) 81 mg DAILYWBKFT 08/06/21 11:45 08/12/21 08:29 81 MG Atorvastatin Calcium (Lipitor) 20 mg QHS 08/06/21 21:00 08/09/21 21:00 20 MG Atropine Sulfate (ATROPINE 0.5mg SYRINGE) 0.5 mg PRN Q5MIN PRN 08/03/21 15:00 Chlorhexidine Gluconate (Peridex) 15 ml BID 08/03/21 21:00 08/04/21 19:49 DC Ciprofloxacin/ Dextrose 200 ml @ 200 mls/hr DAILY 08/04/21 09:00 08/05/21 09:18 DC 08/04/21 11:38 200 MLS/HR Dexmedetomidine HCl 400 mcg/ Sodium Chloride 100 ml @ 3.725 mls/ hr CONT PRN 08/03/21 15:00 08/10/21 11:12 3.725 MLS/HR Dextrose (Dextrose 50%-Water Syringe) 12.5 gm PRN Q15MIN PRN 08/05/21 13:00 08/06/21 17:47 25 GM Etomidate (Amidate) 20 mg STK-MED ONCE 08/03/21 17:04 08/03/21 17:04 DC Famotidine (Pepcid Vial) 20 mg QODAY 08/04/21 09:00 08/06/21 14:25 DC 08/06/21 09:08 20 MG Fentanyl Citrate 30 ml @ 2.5 mls/hr CONT PRN 08/03/21 15:00 08/12/21 08:23 2.5 MLS/HR Glycerin/ Hypromellose/ Polyethylene (Artificial Tears) 1 drop PRN Q1HR PRN 08/03/21 15:00 Heparin Sodium (Porcine) (Heparin Sodium) 5,000 unit Q12HR 08/05/21 11:00 08/11/21 22:48 5,000 UNIT Info (CONTRAST GIVEN -- Rx MONITORING) 1 each PRN DAILY PRN 08/06/21 09:45 08/08/21 09:44 DC Info (PHARMACY MONITORING -- do not chart) 1 each PRN DAILY PRN 08/10/21 07:45 Info (Tpn Per Pharmacy) 1 each PRN DAILY PRN 08/06/21 12:30 08/11/21 12:02 1 EACH Iohexol (Omnipaque 240 Mg/ml) 50 ml STK-MED ONCE 08/04/21 12:36 08/04/21 12:36 DC Iohexol (Omnipaque 300 Mg/ml) 60 ml 1X ONCE 08/06/21 09:30 08/06/21 09:31 DC 08/06/21 09:30 60 ML Lidocaine HCl (Buffered Lidocaine 1%) 3 ml 1X ONCE 08/04/21 13:30 08/04/21 13:31 DC 08/04/21 13:15 2 ML Lidocaine HCl (Xylocaine-Mpf 1% 5ml Vial) 5 ml 1X ONCE 08/04/21 09:30 08/04/21 09:31 DC Magnesium Sulfate 50 ml @ 25 mls/hr 1X ONCE 08/05/21 16:30 08/05/21 18:29 DC 08/05/21 16:59 25 MLS/HR Midazolam HCl (Versed) 5 mg PRN 1X PRN 08/03/21 15:00 08/04/21 14:59 DC Nafcillin Sodium 2 gm/Dextrose 100 ml @ 200 mls/hr Q4HRS 08/11/21 12:00 08/12/21 08:29 200 MLS/HR Norepinephrine Bitartrate 32 mg/ Dextrose 250 ml @ 3.492 mls/ hr CONT PRN 08/04/21 05:30 08/10/21 13:30 1.746 MLS/HR Norepinephrine Bitartrate 8 mg/ Dextrose 258 ml @ 14.416 mls/ hr CONT PRN 08/03/21 15:00 08/04/21 05:29 DC 08/04/21 03:52 141.274 MLS/HR Pantoprazole Sodium (PROTONIX VIAL for IV PUSH) 40 mg DAILYAC 08/06/21 15:00 08/12/21 08:29 40 MG Phenylephrine HCl 50 mg/Sodium Chloride 255 ml @ 11.399 mls/ hr CONT PRN 08/04/21 06:30 08/05/21 05:38 22.797 MLS/HR Piperacillin Sod/ Tazobactam Sod 2.25 gm/Sodium Chloride 50 ml @ 100 mls/hr Q6HRS 08/04/21 12:00 UNV Piperacillin Sod/ Tazobactam Sod 4.5 gm/Sodium Chloride 100 ml @ 200 mls/hr 1X ONCE 08/03/21 11:15 08/03/21 11:44 DC 08/03/21 11:26 200 MLS/HR Propofol 100 ml @ 2.235 mls/ hr CONT PRN 08/03/21 15:00 Rocuronium Slaughter (Zemuron) 50 mg STK-MED ONCE 08/03/21 17:04 08/03/21 17:04 DC Sodium Chloride (Normal Saline Flush) 10 ml 1X PRN PRN 08/07/21 05:30 08/08/21 05:29 DC Sodium Chloride 90 meq/Potassium Chloride 20 meq/ Calcium Gluconate 10 meq/ Multivitamins 10 ml/Zinc/Copper/ Manganese/ Selenium 1 ml/ Total Parenteral Nutrition/Amino Acids/Dextrose 1,200 ml @ 50 mls/hr TPN CONT 08/07/21 22:00 08/08/21 21:59 DC 08/07/21 21:26 50 MLS/HR Sodium Chloride 90 meq/Potassium Chloride 20 meq/ Calcium Gluconate 10 meq/ Multivitamins 10 ml/Zinc/Copper/ Manganese/ Selenium 1 ml/ Total Parenteral Nutrition/Amino Acids/Dextrose/ Fat Emulsion Intravenous 1,200 ml @ 50 mls/hr TPN CONT 08/06/21 22:00 08/07/21 21:59 DC 08/06/21 21:58 50 MLS/HR Sodium Chloride 110 meq/Potassium Chloride 20 meq/ Calcium Gluconate 10 meq/ Multivitamins 10 ml/Zinc/Copper/ Manganese/ Selenium 1 ml/ Total Parenteral Nutrition/Amino Acids/Dextrose 1,200 ml @ 50 mls/hr TPN CONT 08/08/21 22:00 08/09/21 21:59 DC 08/08/21 22:09 50 MLS/HR Sodium Chloride 110 meq/Potassium Chloride 20 meq/ Potassium Phosphate 6 mmol/ Calcium Gluconate 5 meq/ Multivitamins 10 ml/Zinc/Copper/ Manganese/ Selenium 1 ml/ Total Parenteral Nutrition/Amino Acids/Dextrose/ Fat Emulsion Intravenous 1,200 ml @ 50 mls/hr TPN CONT 08/11/21 22:00 08/12/21 21:59 08/11/21 22:46 50 MLS/HR Sodium Phosphate 15 mmol/Sodium Chloride 105 ml @ 105 mls/hr 1X ONCE 08/08/21 14:00 08/08/21 14:59 DC 08/08/21:22 105 MLS/HR Vancomycin HCl (Vanco Per Pharmacy) 1 each PRN DAILY PRN 08/04/21 08:00 UNV Vancomycin HCl (Vancomycin Random Level) 1 each 1X ONCE 08/05/21 06:00 08/05/21 06:01 DC 08/05/21 06:14 1 EACH Vancomycin HCl 1.5 gm/Sodium Chloride 500 ml @ 250 mls/hr 1X ONCE 08/03/21 12:00 08/03/21 13:59 DC 08/03/21 12:00 250 MLS/HR Vancomycin HCl 500 mg/Sodium Chloride 100 ml @ 100 mls/hr QTUTHSA 08/05/21 16:00 08/07/21 09:38 DC 08/05/21 15:59 100 MLS/HR Vasopressin 20 unit/Dextrose 101 ml @ 12 mls/hr CONT PRN 08/04/21 03:45 08/08/21 22:04 12 MLS/HR Vecuronium Slaughter (Norcuron Bolus) 6 mg PRN 1X PRN 08/03/21 15:00 08/04/21 14:59 DC Lab Laboratory Tests Test 08/11/21 11:50 08/12/21 07:45 Glucose (Fingerstick) 108 mg/dL (70-99) O2 Saturation 99 % (92-99) Arterial Blood pH 7.36 (7.35-7.45) Arterial Blood pCO2 at Patient Temp 35 mmHg (35-46) Arterial Blood pO2 at Patient Temp 147 mmHg (75-108) Arterial Blood HCO3 19 mmol/L (21-28) Arterial Blood Base Excess -6 mmol/L (-3-3) FiO2 35 Sodium Level 143 mmol/L (136-145) Potassium Level 4.8 mmol/L (3.5-5.1) Chloride Level 104 mmol/L (98-107) Carbon Dioxide Level 20 mmol/L (21-32) Anion Gap 19 (6-14) Blood Urea Nitrogen 106 mg/dL (8-26) Creatinine 7.5 mg/dL (0.7-1.3) Estimated GFR (Cockcroft-Gault) 7.5 Glucose Level 96 mg/dL (70-99) Calcium Level 8.7 mg/dL (8.5-10.1) Phosphorus Level 6.1 mg/dL (2.6-4.7) Magnesium Level 2.5 mg/dL (1.8-2.4) Results All relevant outside records, renal labs, imaging studies, telemetry/EKG's were reviewed. Justicifation of Admission Dx: Justifications for Admission: Justification of Admission Dx: N/A MARIYA NORMAN MD Aug 12, 2021 09:25
--- NOTE | 2021-08-12 09:54 | PDOC ---
PULMONARY PROGRESS NOTES DATE: 08/12/21 TIME: 09:51 Subjective Patient remains unresponsive. He is off sedation Currently on AVAPS mode due to shortage of ventilators in the hospital. 35% FiO2 5 Upper extremity swelling Vitals Vital Signs Date Time Temp Pulse Resp B/P (MAP) Pulse Ox O2 Delivery O2 Flow Rate FiO2 08/12/21 08:23 100 15.0 08/12/21 08:00 Mechanical Ventilator 08/12/21 06:00 98 20 95/46 08/12/21 04:00 98.3 98.3 Comments on vent sedated ros unable to obtain HEENT: Other (nc at perrl nose clear orally intubated neck no lad no thyromegaly) Lungs: Crackles Cardiovascular: S1, S2 Abdomen: Soft, Non-tender Extremities: No Edema Skin: No Rashes Labs Laboratory Tests Test 08/10/21 17:50 08/11/21 00:27 08/11/21 06:20 08/11/21 09:00 Glucose (Fingerstick) 101 mg/dL (70-99) 96 mg/dL (70-99) White Blood Count 14.2 x10^3/uL (4.0-11.0) Red Blood Count 3.36 x10^6/uL (4.30-5.70) Hemoglobin 10.7 g/dL (13.0-17.5) Hematocrit 32.9 % (39.0-53.0) Mean Corpuscular Volume 98 fL (79-100) Mean Corpuscular Hemoglobin 32 pg (25-35) Mean Corpuscular Hemoglobin Concent 33 g/dL (31-37) Red Cell Distribution Width 17.4 % (11.5-14.5) Platelet Count 148 x10^3/uL (140-400) Sodium Level 139 mmol/L (136-145) Potassium Level 4.0 mmol/L (3.5-5.1) Chloride Level 102 mmol/L (98-107) Carbon Dioxide Level 25 mmol/L (21-32) Anion Gap 12 (6-14) Blood Urea Nitrogen 77 mg/dL (8-26) Creatinine 5.8 mg/dL (0.7-1.3) Estimated GFR (Cockcroft-Gault) 10.1 Glucose Level 87 mg/dL (70-99) Calcium Level 8.4 mg/dL (8.5-10.1) Phosphorus Level 3.8 mg/dL (2.6-4.7) Magnesium Level 2.2 mg/dL (1.8-2.4) O2 Saturation 98 % (92-99) Arterial Blood pH 7.38 (7.35-7.45) Arterial Blood pCO2 at Patient Temp 39 mmHg (35-46) Arterial Blood pO2 at Patient Temp 115 mmHg (75-108) Arterial Blood HCO3 22 mmol/L (21-28) Arterial Blood Base Excess -3 mmol/L (-3-3) FiO2 35% ac 20 500 5 Test 08/11/21 11:50 08/12/21 07:45 Glucose (Fingerstick) 108 mg/dL (70-99) O2 Saturation 99 % (92-99) Arterial Blood pH 7.36 (7.35-7.45) Arterial Blood pCO2 at Patient Temp 35 mmHg (35-46) Arterial Blood pO2 at Patient Temp 147 mmHg (75-108) Arterial Blood HCO3 19 mmol/L (21-28) Arterial Blood Base Excess -6 mmol/L (-3-3) FiO2 35 Sodium Level 143 mmol/L (136-145) Potassium Level 4.8 mmol/L (3.5-5.1) Chloride Level 104 mmol/L (98-107) Carbon Dioxide Level 20 mmol/L (21-32) Anion Gap 19 (6-14) Blood Urea Nitrogen 106 mg/dL (8-26) Creatinine 7.5 mg/dL (0.7-1.3) Estimated GFR (Cockcroft-Gault) 7.5 Glucose Level 96 mg/dL (70-99) Calcium Level 8.7 mg/dL (8.5-10.1) Phosphorus Level 6.1 mg/dL (2.6-4.7) Magnesium Level 2.5 mg/dL (1.8-2.4) Laboratory Tests Test 08/11/21 11:50 08/12/21 07:45 Glucose (Fingerstick) 108 mg/dL (70-99) O2 Saturation 99 % (92-99) Arterial Blood pH 7.36 (7.35-7.45) Arterial Blood pCO2 at Patient Temp 35 mmHg (35-46) Arterial Blood pO2 at Patient Temp 147 mmHg (75-108) Arterial Blood HCO3 19 mmol/L (21-28) Arterial Blood Base Excess -6 mmol/L (-3-3) FiO2 35 Sodium Level 143 mmol/L (136-145) Potassium Level 4.8 mmol/L (3.5-5.1) Chloride Level 104 mmol/L (98-107) Carbon Dioxide Level 20 mmol/L (21-32) Anion Gap 19 (6-14) Blood Urea Nitrogen 106 mg/dL (8-26) Creatinine 7.5 mg/dL (0.7-1.3) Estimated GFR (Cockcroft-Gault) 7.5 Glucose Level 96 mg/dL (70-99) Calcium Level 8.7 mg/dL (8.5-10.1) Phosphorus Level 6.1 mg/dL (2.6-4.7) Magnesium Level 2.5 mg/dL (1.8-2.4) Medications Active Scripts Medications Dose Route/Sig Max Daily Dose Days Date Category Tums (Calcium Carbonate) 200 Mg Tab.chew 400 Mg PO HS 04/19/21 Reported Sensipar (Cinacalcet Hcl) 60 Mg Tablet 1 Tab PO DAILY 30 04/19/21 Reported Ferric Citrate 210 Mg Tablet 2 Tab PO TID 30 04/19/21 Reported Lasix (Furosemide) 40 Mg Tablet 40 Mg PO BID 04/19/21 Reported Renagel (Sevelamer Hcl) 800 Mg Tablet 2 Tab PO TIDWMEALS 01/18/21 Reported Kapspargo Sprinkle (Metoprolol Succinate) 50 Mg Cap.spr.24 50 Mg PO DAILY 01/18/21 Reported Comments Chest x-ray reviewed dated 08/09/2021. Faint bilateral infiltrates CT chest reviewed dated 08/06/2021. Small basal pleural effusion with associated atelectasis. No definite consolidation seen Impression . IMPRESSION: 1. Acute hypoxemic respiratory failure, multifactorial. 2. Septic shock./Urosepsis 3. Fever related to above. 4. SARS-CoV-2 testing negative. 5. End-stage renal disease, on hemodialysis. 6. Possible stroke. 7. MSSA bactremia 8. Encephalopathy. Off sedation but still nonresponsive. Could be related to stroke. 9. Suspected ischemic stroke Other comorbidities including end-stage renal disease, hypertension, chronic obstructive pulmonary disease, gastroesophageal reflux, ischemic cardiomyopathy. 10. Upper extremity swelling. Venous Dopplers with no DVT but only superficial phlebitis. Arterial Dopplers with proximal stenosis of ulnar and radial Plan . Updated 08/12 Continue vent support assist-control mode. setting reviewed no weaning. CT head with no new stroke. repeat bcx neg abx per id vasopressor to keep map 65 complicated urinary tract infection with septic shock. mssa bactremia Follow ID recommendations Hemodialysis per nephrology Follow blood cultures DVT GI prophylaxis CT chest reviewed. No focal consolidation. Small basal effusion with associated atelectasis. discussed w rn rt Off sedation for 72 hours. Patient still not responsive Venous Dopplers of upper extremities reviewed. Arterial Doppler results reviewed as well. Follow-up vascular surgery recommendations We will reach out to family about discussion of advanced directives. Discussed with RN and RT Updated 08/11 Continue vent support assist-control mode. setting reviewed no weaning. CT head with no new stroke. repeat bcx neg abx per id vasopressor to keep map 65 complicated urinary tract infection with septic shock. mssa bactremia Follow ID recommendations Hemodialysis per nephrology Follow blood cultures DVT GI prophylaxis CT chest reviewed. No focal consolidation. Small basal effusion with associated atelectasis. discussed w rn rt Off sedation for 72 hours. Patient still not responsive Venous Dopplers of upper extremities ordered. Discussed with RN and RT Updated 08/10 Continue vent support assist-control mode. setting reviewed no weaning. CT head today to rule out ischemic stroke. repeat bcx neg abx per id vasopressor to keep map 65 complicated urinary tract infection with septic shock. mssa bactremia Follow ID recommendations Hemodialysis per nephrology Follow blood cultures DVT GI prophylaxis CT chest reviewed. No focal consolidation. Small basal effusion with associated atelectasis. discussed w rn rt Off sedation for 72 hours. Patient still not responsive Discussed with RN and RT Updated 08/09 Continue vent support assist-control mode. setting reviewed repeat bcx neg abx per id vasopressor to keep map 65 complicated urinary tract infection with septic shock. mssa bactremia Follow ID recommendations Hemodialysis per nephrology Follow blood cultures DVT GI prophylaxis CT chest reviewed. No focal consolidation. Small basal effusion with associated atelectasis. discussed w rn rt Off sedation for 48 hours. If there is not wake up in the next few days, may need an MRI. Discussed with RN and RT Updated 08/08 Continue vent support assist-control mode. setting reviewed repeat bcx neg abx per id vasopressor to keep map 65 complicated urinary tract infection with septic shock. mssa bactremia Follow ID recommendations Hemodialysis per nephrology Follow blood cultures DVT GI prophylaxis CT chest reviewed. No focal consolidation. Small basal effusion with associated atelectasis. discussed w rn rt RUDI DAVALOS MD Aug 12, 2021 09:54
[2021-08-12] MEDS: TPN PER PHARMACY MC PRN (10:15)
--- NOTE | 2021-08-12 10:15 | NUR ---
Pharmacy TPN Dosing Note S: FELICE GROVE is a 56 year old M Currently receiving Central Continuous TPN started 08/06/21 B:Pertinent PMH: High residuals w/tube feeding Height: 5 feet, 5 inches Weight: 77.7 kg Current diet: NPO LABS: Sodium: 143 Potassium: 4.8 Chloride: 104 Calcium: 8.7 Corrected Calcium: 10.06 Magnesium: 2.5 CO2: 20 SCr: 106 Glucose: 108, 96 Albumin: 2.3 AST: 87 ALT: 59 TPN FORMULA: TPN TYPE: Central Continuous AMINO ACIDS: 90 gm DEXTROSE: 175 gm LIPIDS: 0 gm SODIUM CHLORIDE: 110 mEq CALCIUM: 5 mEq MULTIPLE VITAMIN: 10 ml TRACE ELEMENTS: 1 ml TPN PLAN: -Serum potassium with large jump in value - remove potassium. -Serum phos high, remove phosphorus. -Remove lipids due to national lipid shortage. -BMP tomorrow. R: Continue TPN @ current rate and above formula. Will monitor electrolytes, glucose, and tolerance to TPN. TORREY COLLINS [facility], 08/12/21 1011
--- NOTE | 2021-08-12 10:21 | PDOC ---
Date of Service: DATE: 08/12/21 TIME: 10:09 Objective: Objective: Reviewed notes - ?vascular opinion Vital Signs: Vital Signs Date Time Temp Pulse Resp B/P (MAP) Pulse Ox O2 Delivery O2 Flow Rate FiO2 08/12/21 08:23 100 15.0 08/12/21 08:00 Mechanical Ventilator 08/12/21 06:00 98 20 95/46 08/12/21 04:00 98.3 98.3 Labs: Laboratory Tests Test 08/11/21 11:50 08/12/21 07:45 Glucose (Fingerstick) 108 mg/dL O2 Saturation 99 % Arterial Blood pH 7.36 Arterial Blood pCO2 at Patient Temp 35 mmHg Arterial Blood pO2 at Patient Temp 147 mmHg Arterial Blood HCO3 19 mmol/L Arterial Blood Base Excess -6 mmol/L FiO2 35 Sodium Level 143 mmol/L Potassium Level 4.8 mmol/L Chloride Level 104 mmol/L Carbon Dioxide Level 20 mmol/L Anion Gap 19 Blood Urea Nitrogen 106 mg/dL Creatinine 7.5 mg/dL Estimated GFR (Cockcroft-Gault) 7.5 Glucose Level 96 mg/dL Calcium Level 8.7 mg/dL Phosphorus Level 6.1 mg/dL Magnesium Level 2.5 mg/dL Imaging: UE US IMPRESSION: 1. Degraded evaluation, as described. No evidence of deep vein thrombosis within the imaged veins. 2. Superficial vein thrombosis within the left cephalic and basilic veins. IMPRESSION: 1. Mildly elevated velocity within the left distal ulnar artery, may indicate stenosis. 2. Monophasic waveform within the left radial artery, may relate to proximal stenosis. PE: GEN: intubated LUNGS: vent/diminished HEART: RRR ABD: quiet, dark bilious contents in OG canister EXTREMITY/SKIN: left fingers w/ dark blisters NEURO/PSYCH: unresponsive on Fentanyl A/P: Stroke, resp failure, sepsis, ileus Chronic anemia (stable), ESRD -- Continue OG suction, TPN, PPI. Justicifation of Admission Dx: Justifications for Admission: Justification of Admission Dx: N/A ERINN HOBSON Aug 12, 2021 10:21
--- NOTE | 2021-08-12 11:32 | PDOC ---
PROGRESS NOTES Date of Service DATE: 08/12/21 TIME: 11:31 Assessment Problems Medical Problems: (1) Hypoxia Status: Acute (2) Respiratory failure Status: Acute (3) Sepsis Status: Acute (4) Stroke Status: Acute (5) UTI (urinary tract infection) Status: Acute Right frontoparietal stroke, had anisocoria earlier, resolved, negative follow- up head CT Fever, sepsis requiring pressors due to hypotension, respiratory failure, end- stage renal disease, congestive heart failure, cardiomyopathy status-post pacemaker Note normal hemoglobin A1c and lipid profile Plan Treat medical issues Aspirin and statin Subjective None Objective Vital Signs Date Time Temp Pulse Resp B/P (MAP) Pulse Ox O2 Delivery O2 Flow Rate FiO2 08/12/21 11:00 92 20 115/47 100 Ventilator 08/12/21 08:23 15.0 08/12/21 08:00 98.4 98.4 Intake and Output 08/12/21 07:00 Intake Total 1559 ml Output Total 450 ml Balance 1109 ml Intake Oral 0 ml IV Total 1559 ml Output Urine Total 0 ml Gastric Drainage Total 450 ml PHYSICAL EXAM Off sedation, on ventilator PERRL EOMI. CN: no focal findings. Muscle tone: normal. Muscle strength: No response to pain, except withdraws toes more on the right than the left DTR: 2+ Plantar reflex: Silent Gait: not examined in bed. Sensory exam: Not cooperative. Cerebellar: not cooperative Review of Relevant I have reviewed the following items allyson (where applicable) has been applied. Labs Laboratory Tests Test 08/10/21 17:50 08/11/21 00:27 08/11/21 06:20 08/11/21 09:00 Glucose (Fingerstick) 101 mg/dL (70-99) 96 mg/dL (70-99) White Blood Count 14.2 x10^3/uL (4.0-11.0) Red Blood Count 3.36 x10^6/uL (4.30-5.70) Hemoglobin 10.7 g/dL (13.0-17.5) Hematocrit 32.9 % (39.0-53.0) Mean Corpuscular Volume 98 fL (79-100) Mean Corpuscular Hemoglobin 32 pg (25-35) Mean Corpuscular Hemoglobin Concent 33 g/dL (31-37) Red Cell Distribution Width 17.4 % (11.5-14.5) Platelet Count 148 x10^3/uL (140-400) Sodium Level 139 mmol/L (136-145) Potassium Level 4.0 mmol/L (3.5-5.1) Chloride Level 102 mmol/L (98-107) Carbon Dioxide Level 25 mmol/L (21-32) Anion Gap 12 (6-14) Blood Urea Nitrogen 77 mg/dL (8-26) Creatinine 5.8 mg/dL (0.7-1.3) Estimated GFR (Cockcroft-Gault) 10.1 Glucose Level 87 mg/dL (70-99) Calcium Level 8.4 mg/dL (8.5-10.1) Phosphorus Level 3.8 mg/dL (2.6-4.7) Magnesium Level 2.2 mg/dL (1.8-2.4) O2 Saturation 98 % (92-99) Arterial Blood pH 7.38 (7.35-7.45) Arterial Blood pCO2 at Patient Temp 39 mmHg (35-46) Arterial Blood pO2 at Patient Temp 115 mmHg (75-108) Arterial Blood HCO3 22 mmol/L (21-28) Arterial Blood Base Excess -3 mmol/L (-3-3) FiO2 35% ac 20 500 5 Test 08/11/21 11:50 08/12/21 07:45 Glucose (Fingerstick) 108 mg/dL (70-99) O2 Saturation 99 % (92-99) Arterial Blood pH 7.36 (7.35-7.45) Arterial Blood pCO2 at Patient Temp 35 mmHg (35-46) Arterial Blood pO2 at Patient Temp 147 mmHg (75-108) Arterial Blood HCO3 19 mmol/L (21-28) Arterial Blood Base Excess -6 mmol/L (-3-3) FiO2 35 Sodium Level 143 mmol/L (136-145) Potassium Level 4.8 mmol/L (3.5-5.1) Chloride Level 104 mmol/L (98-107) Carbon Dioxide Level 20 mmol/L (21-32) Anion Gap 19 (6-14) Blood Urea Nitrogen 106 mg/dL (8-26) Creatinine 7.5 mg/dL (0.7-1.3) Estimated GFR (Cockcroft-Gault) 7.5 Glucose Level 96 mg/dL (70-99) Calcium Level 8.7 mg/dL (8.5-10.1) Phosphorus Level 6.1 mg/dL (2.6-4.7) Magnesium Level 2.5 mg/dL (1.8-2.4) Laboratory Tests Test 08/11/21 11:50 08/12/21 07:45 Glucose (Fingerstick) 108 mg/dL (70-99) O2 Saturation 99 % (92-99) Arterial Blood pH 7.36 (7.35-7.45) Arterial Blood pCO2 at Patient Temp 35 mmHg (35-46) Arterial Blood pO2 at Patient Temp 147 mmHg (75-108) Arterial Blood HCO3 19 mmol/L (21-28) Arterial Blood Base Excess -6 mmol/L (-3-3) FiO2 35 Sodium Level 143 mmol/L (136-145) Potassium Level 4.8 mmol/L (3.5-5.1) Chloride Level 104 mmol/L (98-107) Carbon Dioxide Level 20 mmol/L (21-32) Anion Gap 19 (6-14) Blood Urea Nitrogen 106 mg/dL (8-26) Creatinine 7.5 mg/dL (0.7-1.3) Estimated GFR (Cockcroft-Gault) 7.5 Glucose Level 96 mg/dL (70-99) Calcium Level 8.7 mg/dL (8.5-10.1) Phosphorus Level 6.1 mg/dL (2.6-4.7) Magnesium Level 2.5 mg/dL (1.8-2.4) Microbiology 08/06/21 Blood Culture - Final, Complete NO GROWTH AFTER 5 DAYS 08/03/21 Urine Culture - Final, Complete Medications Current Medications Sodium Chloride 1,000 ml @ 1,000 mls/hr 1X ONCE IV Last administered on 08/03/21at 11:26; Start 08/03/21 at 11:15; Stop 08/03/21 at 12:14; Status DC Piperacillin Sod/ Tazobactam Sod 4.5 gm/Sodium Chloride 100 ml @ 200 mls/hr 1X ONCE IV Last administered on 08/03/21at 11:26; Start 08/03/21 at 11:15; Stop 08/03/21 at 11:44; Status DC Vancomycin HCl 1.5 gm/Sodium Chloride 500 ml @ 250 mls/hr 1X ONCE IV Last administered on 08/03/21at 12:00; Start 08/03/21 at 12:00; Stop 08/03/21 at 13:59; Status DC Iohexol (Omnipaque 300 Mg/ml) 75 ml 1X ONCE IV Last administered on 08/03/21at 11:29; Start 08/03/21 at 11:15; Stop 08/03/21 at 11:16; Status DC Info (CONTRAST GIVEN -- Rx MONITORING) 1 each PRN DAILY PRN MC SEE COMMENTS; Start 08/03/21 at 11:15; Stop 08/05/21 at 11:14; Status DC Fentanyl Citrate 30 ml @ 2.5 mls/hr CONT PRN IV SEE PROTOCOL; Start 08/03/21 at 12:15; Status Cancel Propofol 100 ml @ 2.235 mls/ hr CONT PRN IV PER PROTOCOL Last administered on 08/03/21at 12:31; Start 08/03/21 at 12:15; Stop 08/04/21 at 07:38; Status DC Chlorhexidine Gluconate (Peridex) 15 ml BID MM ; Start 08/03/21 at 21:00; Status Cancel Glycerin/ Hypromellose/ Polyethylene (Artificial Tears) 1 drop PRN Q1HR PRN OU DRY EYE; Start 08/03/21 at 12:15; Stop 08/03/21 at 21:15; Status DC Dexmedetomidine HCl 400 mcg/ Sodium Chloride 100 ml @ 3.725 mls/ hr CONT PRN IV PER PROTOCOL; Start 08/03/21 at 12:15; Stop 08/03/21 at 21:15; Status DC Midazolam HCl (Versed) 5 mg PRN 1X PRN IVP VENT INDUCTION Last administered on 08/03/21at 14:12; Start 08/03/21 at 12:15; Stop 08/03/21 at 14:12; Status DC Etomidate (Amidate) 10 mg 1X ONCE IV Last administered on 08/03/21at 12:48; Start 08/03/21 at 12:45; Stop 08/03/21 at 12:46; Status DC Rocuronium [place] (Zemuron) 100 mg 1X ONCE IV Last administered on 08/03/21at 12:45; Start 08/03/21 at 12:45; Stop 08/03/21 at 12:46; Status DC Sodium Chloride 250 ml @ 250 mls/hr 1X ONCE IV Last administered on 08/03/21at 14:21; Start 08/03/21 at 14:30; Stop 08/03/21 at 15:29; Status DC Fentanyl Citrate 30 ml @ 2.5 mls/hr CONT PRN IV SEE PROTOCOL Last administered on 08/12/21at 08:23; Start 08/03/21 at 15:00 Midazolam HCl 100 ml @ 1 mls/hr CONT PRN IV SEE PROTOCOL Last administered on 08/07/21at 00:37; Start 08/03/21 at 15:00 Propofol 100 ml @ 2.235 mls/ hr CONT PRN IV PER PROTOCOL; Start 08/03/21 at 15:00 Vecuronium [place] (Norcuron Bolus) 6 mg PRN 1X PRN IV VENT INDUCTION; Start 08/03/21 at 15:00; Stop 08/04/21 at 14:59; Status DC Chlorhexidine Gluconate (Peridex) 15 ml BID MM ; Start 08/03/21 at 21:00; Stop 08/04/21 at 19:49; Status DC Glycerin/ Hypromellose/ Polyethylene (Artificial Tears) 1 drop PRN Q1HR PRN OU DRY EYE; Start 08/03/21 at 15:00 Dexmedetomidine HCl 400 mcg/ Sodium Chloride 100 ml @ 3.725 mls/ hr CONT PRN IV PER PROTOCOL Last administered on 08/10/21at 11:12; Start 08/03/21 at 15:00 Midazolam HCl (Versed) 5 mg PRN 1X PRN IVP VENT INDUCTION; Start 08/03/21 at 15:00; Stop 08/04/21 at 14:59; Status DC Sodium Chloride 500 ml @ 500 mls/hr 1X PRN PRN IV SEE COMMENTS Last administered on 08/10/21at 17:47; Start 08/03/21 at 15:00 Atropine Sulfate (ATROPINE 0.5mg SYRINGE) 0.5 mg PRN Q5MIN PRN IV SEE COMMENTS; Start 08/03/21 at 15:00 Famotidine (Pepcid Vial) 20 mg BID IVP Last administered on 08/03/21at 21:00; Start 08/03/21 at 21:00; Stop 08/04/21 at 07:59; Status DC Norepinephrine Bitartrate 8 mg/ Dextrose 258 ml @ 14.416 mls/ hr CONT PRN IV PER PROTOCOL Last administered on 08/04/21at 03:52; Start 08/03/21 at 15:00; Stop 08/04/21 at 05:29; Status DC Etomidate (Amidate) 20 mg STK-MED ONCE IV ; Start 08/03/21 at 17:04; Stop 08/03/21 at 17:04; Status DC Rocuronium [place] (Zemuron) 50 mg STK-MED ONCE .ROUTE ; Start 08/03/21 at 17:04; Stop 08/03/21 at 17:04; Status DC Acetaminophen (Tylenol Supp) 650 mg PRN Q6HRS PRN IN MILD PAIN / TEMP > 100.3'F Last administered on 08/04/21at 20:25; Start 08/03/21 at 20:45 Acetaminophen (Tylenol) 650 mg PRN Q6HRS PRN PEG MILD PAIN / TEMP > 100.3'F; Start 08/03/21 at 20:45 Vasopressin 20 unit/Dextrose 101 ml @ 12 mls/hr CONT PRN IV SEE I/O RECORD Last administered on 08/08/21at 22:04; Start 08/04/21 at 03:45 Norepinephrine Bitartrate 32 mg/ Dextrose 250 ml @ 3.492 mls/ hr CONT PRN IV SEE I/O RECORD Last administered on 08/10/21at 13:30; Start 08/04/21 at 05:30 Phenylephrine HCl 50 mg/Sodium Chloride 255 ml @ 11.399 mls/ hr CONT PRN IV PER PROTOCOL Last administered on 08/05/21at 05:38; Start 08/04/21 at 06:30 Piperacillin Sod/ Tazobactam Sod 2.25 gm/Sodium Chloride 50 ml @ 100 mls/hr Q8HRS IV Last administered on 08/11/21at 05:40; Start 08/04/21 at 08:00; Stop 08/11/21 at 08:58; Status DC Vancomycin HCl (Vanco Per Pharmacy) 1 each PRN DAILY PRN MC SEE COMMENTS Last administered on 08/06/21at 11:08; Start 08/04/21 at 08:00; Stop 08/07/21 at 09:38; Status DC Famotidine (Pepcid Vial) 20 mg QODAY IVP Last administered on 08/06/21at 09:08; Start 08/04/21 at 09:00; Stop 08/06/21 at 14:25; Status DC Vancomycin HCl (Vanco Per Pharmacy) 1 each PRN DAILY PRN MC SEE COMMENTS; Start 08/04/21 at 08:00; Status UNV Piperacillin Sod/ Tazobactam Sod 2.25 gm/Sodium Chloride 50 ml @ 100 mls/hr Q6HRS IV ; Start 08/04/21 at 12:00; Status UNV Ciprofloxacin/ Dextrose 200 ml @ 200 mls/hr DAILY IV Last administered on 08/04/21at 11:38; Start 08/04/21 at 09:00; Stop 08/05/21 at 09:18; Status DC Lidocaine HCl (Xylocaine-Mpf 1% 5ml Vial) 5 ml 1X ONCE INJ ; Start 08/04/21 at 09:30; Stop 08/04/21 at 09:31; Status DC Lidocaine HCl (Buffered Lidocaine 1%) 3 ml STK-MED ONCE .ROUTE ; Start 08/04/21 at 12:33; Stop 08/04/21 at 12:33; Status DC Iohexol (Omnipaque 240 Mg/ml) 50 ml STK-MED ONCE .ROUTE ; Start 08/04/21 at 12:36; Stop 08/04/21 at 12:36; Status DC Lidocaine HCl (Buffered Lidocaine 1%) 3 ml 1X ONCE IJ Last administered on 08/04/21at 13:15; Start 08/04/21 at 13:30; Stop 08/04/21 at 13:31; Status DC Iohexol (Omnipaque 300 Mg/ml) 50 ml 1X ONCE IART ; Start 08/04/21 at 13:30; Stop 08/04/21 at 13:31; Status DC Vancomycin HCl (Vancomycin Random Level) 1 each 1X ONCE MC Last administered on 08/05/21at 06:14; Start 08/05/21 at 06:00; Stop 08/05/21 at 06:01; Status DC Albumin Human 100 ml @ 100 mls/hr PRN DAILY PRN IV SEE COMMENTS Last administered on 08/06/21at 14:15; Start 08/05/21 at 08:15 Sodium Chloride 1,000 ml @ 1,000 mls/hr Q1H PRN IV hypotension; Start 08/05/21 at 09:15; Stop 08/05/21 at 15:14; Status DC Sodium Chloride 1,000 ml @ 400 mls/hr Q2H30M PRN IV PATENCY; Start 08/05/21 at 09:15; Stop 08/05/21 at 21:14; Status DC Info (PHARMACY MONITORING -- do not chart) 1 each PRN DAILY PRN MC SEE COMMENTS; Start 08/05/21 at 09:15; Status Cancel Vancomycin HCl 500 mg/Sodium Chloride 100 ml @ 100 mls/hr QTUTHSA IV Last administered on 08/05/21at 15:59; Start 08/05/21 at 16:00; Stop 08/07/21 at 09:38; Status DC Heparin Sodium (Porcine) (Heparin Sodium) 5,000 unit Q12HR SQ Last administered on 08/11/21at 22:48; Start 08/05/21 at 11:00 Dextrose (Dextrose 50%-Water Syringe) 25 gm STK-MED ONCE IV ; Start 08/05/21 at 12:45; Stop 08/05/21 at 12:45; Status DC Dextrose (Dextrose 50%-Water Syringe) 12.5 gm PRN Q15MIN PRN IV SEE COMMENTS Last administered on 08/06/21at 17:47; Start 08/05/21 at 13:00 Magnesium Sulfate 50 ml @ 25 mls/hr 1X ONCE IV Last administered on 08/05/21at 16:59; Start 08/05/21 at 16:30; Stop 08/05/21 at 18:29; Status DC Iohexol (Omnipaque 300 Mg/ml) 60 ml 1X ONCE IV Last administered on 08/06/21at 09:30; Start 08/06/21 at 09:30; Stop 08/06/21 at 09:31; Status DC Info (CONTRAST GIVEN -- Rx MONITORING) 1 each PRN DAILY PRN MC SEE COMMENTS; Start 08/06/21 at 09:45; Stop 08/08/21 at 09:44; Status DC Aspirin (Aspirin Chewable) 81 mg DAILYWBKFT PO Last administered on 08/12/21at 08:29; Start 08/06/21 at 11:45 Atorvastatin Calcium (Lipitor) 20 mg QHS PO Last administered on 08/09/21at 21:00; Start 08/06/21 at 21:00 Sodium Chloride 1,000 ml @ 1,000 mls/hr Q1H PRN IV hypotension; Start 08/06/21 at 12:00; Stop 08/06/21 at 17:59; Status DC Sodium Chloride 1,000 ml @ 400 mls/hr Q2H30M PRN IV PATENCY; Start 08/06/21 at 12:00; Stop 08/06/21 at 23:59; Status DC Info (PHARMACY MONITORING -- do not chart) 1 each PRN DAILY PRN MC SEE COMMENTS; Start 08/06/21 at 12:00; Status UNV Info (Tpn Per Pharmacy) 1 each PRN DAILY PRN MC SEE COMMENTS Last administered on 08/12/21at 10:15; Start 08/06/21 at 12:30 Sodium Chloride 90 meq/Potassium Chloride 20 meq/ Calcium Gluconate 10 meq/ Multivitamins 10 ml/Zinc/Copper/ Manganese/ Selenium 1 ml/ Total Parenteral Nutrition/Amino Acids/Dextrose/ Fat Emulsion Intravenous 1,200 ml @ 50 mls/hr TPN CONT IV Last administered on 08/06/21at 21:58; Start 08/06/21 at 22:00; Stop 08/07/21 at 21:59; Status DC Pantoprazole Sodium (PROTONIX VIAL for IV PUSH) 40 mg DAILYAC IVP Last administered on 08/12/21at 08:29; Start 08/06/21 at 15:00 Sodium Chloride 1,000 ml @ 1,000 mls/hr Q1H PRN IV hypotension; Start 08/07/21 at 05:30; Stop 08/07/21 at 11:29; Status DC Albumin Human 200 ml @ 200 mls/hr 1X PRN PRN IV Hypotension; Start 08/07/21 at 05:30; Stop 08/07/21 at 11:29; Status DC Sodium Chloride (Normal Saline Flush) 10 ml 1X PRN PRN IV AP catheter pack; Start 08/07/21 at 05:30; Stop 08/08/21 at 05:29; Status DC Sodium Chloride (Normal Saline Flush) 10 ml 1X PRN PRN IV CHECK WRITER catheter pack; Start 08/07/21 at 05:30; Stop 08/08/21 at 05:29; Status DC Sodium Chloride 1,000 ml @ 400 mls/hr Q2H30M PRN IV PATENCY; Start 08/07/21 at 05:30; Stop 08/07/21 at 17:29; Status DC Info (PHARMACY MONITORING -- do not chart) 1 each PRN DAILY PRN MC SEE COMMENTS ; Start 08/07/21 at 05:30; Status Cancel Info (PHARMACY MONITORING -- do not chart) 1 each PRN DAILY PRN MC SEE COMMENTS; Start 08/07/21 at 05:30; Stop 08/07/21 at 05:28; Status DC Sodium Chloride 90 meq/Potassium Chloride 20 meq/ Calcium Gluconate 10 meq/ Multivitamins 10 ml/Zinc/Copper/ Manganese/ Selenium 1 ml/ Total Parenteral Nutrition/Amino Acids/Dextrose 1,200 ml @ 50 mls/hr TPN CONT IV ; Start 08/07/21 at 22:00; Stop 08/07/21 at 14:00; Status DC Sodium Chloride 90 meq/Potassium Chloride 20 meq/ Calcium Gluconate 10 meq/ Multivitamins 10 ml/Zinc/Copper/ Manganese/ Selenium 1 ml/ Total Parenteral Nutrition/Amino Acids/Dextrose 1,025 ml @ 42.708 mls/ hr TPN CONT IV ; Start 08/07/21 at 22:00; Stop 08/07/21 at 14:02; Status DC Sodium Chloride 90 meq/Potassium Chloride 20 meq/ Calcium Gluconate 10 meq/ Multivitamins 10 ml/Zinc/Copper/ Manganese/ Selenium 1 ml/ Total Parenteral Nutrition/Amino Acids/Dextrose 1,200 ml @ 50 mls/hr TPN CONT IV Last administered on 08/07/21at 21:26; Start 08/07/21 at 22:00; Stop 08/08/21 at 21:59; Status DC Sodium Phosphate 15 mmol/Sodium Chloride 105 ml @ 105 mls/hr 1X ONCE IV Last administered on 08/08/21at 15:22; Start 08/08/21 at 14:00; Stop 08/08/21 at 14:59; Status DC Sodium Chloride 110 meq/Potassium Chloride 20 meq/ Calcium Gluconate 10 meq/ Multivitamins 10 ml/Zinc/Copper/ Manganese/ Selenium 1 ml/ Total Parenteral Nutrition/Amino Acids/Dextrose 1,200 ml @ 50 mls/hr TPN CONT IV Last administered on 08/08/21at 22:09; Start 08/08/21 at 22:00; Stop 08/09/21 at 21:59; Status DC Sodium Chloride 110 meq/Potassium Chloride 20 meq/ Potassium Phosphate 6 mmol/ Calcium Gluconate 5 meq/ Multivitamins 10 ml/Zinc/Copper/ Manganese/ Selenium 1 ml/ Total Parenteral Nutrition/Amino Acids/Dextrose/ Fat Emulsion Intravenous 1,200 ml @ 50 mls/hr TPN CONT IV Last administered on 08/09/21at 21:38; Start 08/09/21 at 22:00; Stop 08/10/21 at 21:59; Status DC Acetaminophen (Children'S Tylenol) 160 mg PRN Q6HRS PRN PO MILD PAIN / TEMP > 100.3'F; Start 08/09/21 at 20:30; Status UNV Sodium Chloride 1,000 ml @ 1,000 mls/hr Q1H PRN IV hypotension; Start 08/10/21 at 07:45; Stop 08/10/21 at 13:44; Status DC Sodium Chloride 1,000 ml @ 400 mls/hr Q2H30M PRN IV PATENCY; Start 08/10/21 at 07:45; Stop 08/10/21 at 19:44; Status DC Info (PHARMACY MONITORING -- do not chart) 1 each PRN DAILY PRN MC SEE COMMENTS; Start 08/10/21 at 07:45 Sodium Chloride 110 meq/Potassium Chloride 20 meq/ Potassium Phosphate 6 mmol/ Calcium Gluconate 5 meq/ Multivitamins 10 ml/Zinc/Copper/ Manganese/ Selenium 1 ml/ Total Parenteral Nutrition/Amino Acids/Dextrose/ Fat Emulsion Intravenous 1,200 ml @ 50 mls/hr TPN CONT IV Last administered on 08/10/21at 23:07; Start 08/10/21 at 22:00; Stop 08/11/21 at 21:59; Status DC Nafcillin Sodium 2 gm/Dextrose 100 ml @ 200 mls/hr Q4HRS IV Last administered on 08/12/21at 08:29; Start 08/11/21 at 12:00 Sodium Chloride 110 meq/Potassium Chloride 20 meq/ Potassium Phosphate 6 mmol/ Calcium Gluconate 5 meq/ Multivitamins 10 ml/Zinc/Copper/ Manganese/ Selenium 1 ml/ Total Parenteral Nutrition/Amino Acids/Dextrose/ Fat Emulsion Intravenous 1,200 ml @ 50 mls/hr TPN CONT IV Last administered on 08/11/21at 22:46; Start 08/11/21 at 22:00; Stop 08/12/21 at 21:59 Sodium Chloride 110 meq/Calcium Gluconate 5 meq/ Multivitamins 10 ml /Zinc/Copper/ Manganese/ Selenium 1 ml/ Total Parenteral Nutrition/Amino Acids/Dextrose/ Fat Emulsion Intravenous 1,200 ml @ 50 mls/hr TPN CONT IV ; Start 08/12/21 at 22:00; Stop 08/13/21 at 21:59 Active Scripts Active Reported Tums (Calcium Carbonate) 200 Mg Tab.chew 400 Mg PO HS Sensipar (Cinacalcet Hcl) 60 Mg Tablet 1 Tab PO DAILY 30 Days Ferric Citrate 210 Mg Tablet 2 Tab PO TID 30 Days Lasix (Furosemide) 40 Mg Tablet 40 Mg PO BID Renagel (Sevelamer Hcl) 800 Mg Tablet 2 Tab PO TIDWMEALS Kapspargo Sprinkle (Metoprolol Succinate) 50 Mg Cap.spr.24 50 Mg PO DAILY Vitals/I & O Vital Sign - Last 24 Hours 08/11/21 08/11/21 08/11/21 08/11/21 12:00 12:49 13:00 14:00 Temp 98.1 98.1 Pulse 94 93 93 Resp 20 20 20 B/P (MAP) 110/48 125/54 129/59 Pulse Ox 100 100 100 100 O2 Delivery Ventilator Ventilator Ventilator Ventilator 08/11/21 08/11/21 08/11/21 08/11/21 15:00 16:00 16:30 17:00 Temp 98.3 98.3 Pulse 93 96 98 Resp 24 20 22 B/P (MAP) 130/59 134/56 125/62 Pulse Ox 100 100 100 100 O2 Delivery Ventilator Ventilator Ventilator Ventilator 08/11/21 08/11/21 08/11/21 08/11/21 18:00 18:31 19:00 19:27 Pulse 100 98 Resp 26 35 20 B/P (MAP) 127/69 147/63 Pulse Ox 100 100 100 O2 Delivery Ventilator Ventilator Ventilator 08/11/21 08/11/21 08/11/21 08/11/21 20:00 20:00 20:28 21:00 Temp 97.7 97.7 Pulse 98 92 Resp 20 20 B/P (MAP) 142/58 146/70 Pulse Ox 100 100 100 O2 Delivery Mechanical Ventilator Ventilator Ventilator O2 Flow Rate 15.0 108/11/21 08/11/21 08/11/21 22:00 23:00 23:08 23:59 Temp 97.3 97.3 Pulse 93 94 102 Resp 20 20 20 B/P (MAP) 133/52 143/58 181/81 Pulse Ox 100 100 100 100 O2 Delivery Ventilator Ventilator Ventilator Ventilator 08/12/21 08/12/21 08/12/21 08/12/21 01:00 02:04 03:00 03:33 Pulse 104 106 104 Resp B/P (MAP) 168/76 175/65 156/61 Pulse Ox 100 100 100 100 O2 Delivery Ventilator Ventilator Ventilator Ventilator 08/12/21 08/12/21 08/12/21 08/12/21 04:00 05:00 06:00 07:00 Temp 98.3 98.3 Pulse 102 100 98 94 Resp 20 20 20 20 B/P (MAP) 168/64 157/67 95/46 107/49 Pulse Ox 100 100 100 100 O2 Delivery Ventilator Ventilator Ventilator Ventilator 08/12/21 08/12/21 08/12/21 08/12/21 07:59 08:00 08:00 08:23 Temp 98.4 98.4 Pulse 92 Resp 20 B/P (MAP) 98/50 Pulse Ox 100 100 100 O2 Delivery Ventilator Ventilator Mechanical Ventilator O2 Flow Rate 15.0 08/12/21 08/12/21 08/12/21 08/12/21 09:00 10:00 10:28 11:00 Pulse 92 92 92 Resp 20 20 20 B/P (MAP) 89/44 115/47 115/47 Pulse Ox 100 100 100 100 O2 Delivery Ventilator Ventilator Ventilator Ventilator Intake and Output 08/11/21 08/11/21 08/12/21 15:00 23:00 07:00 Intake Total 620 ml 939 ml Output Total 250 ml 200 ml Balance 370 ml 739 ml Justicifation of Admission Dx: Justifications for Admission: Justification of Admission Dx: N/A REID HERNANDEZ MD Aug 12, 2021 11:32
--- NOTE | 2021-08-12 11:56 | PDOC ---
[employer] PROGRESS NOTE Date of Service DOS: DATE: 08/12/21 TIME: 11:54 Chief Complaint Chief Complaint Respiratory failure requiring mechanical ventilation Severe sepsis Possible stroke Suprapubic catheter; CHF; COPD; hypertension; pneumonia, End-stage renal disease, on dialysis; history of peritonitis dialysis as well left kidney stents; suprapubic catheter. History of Present Illness History of Present Illness 08/12/2021 Patient seen and examined in the ICU Chart reviewed He remains on BiPAP machine with ET tube with settings of AVAPS 35% FiO2 Discussed with RN Chart reviewed 08/11/2021 Patient seen and examined in the ICU He is on the BiPAP settings AVAPS Currently getting upper extremity ultrasound He has a superficial clot on the left. His right graft is working well Chart reviewed Discussed with RN Vent settings as AVAPS/500/20/30 5% OG clamped He remains critically ill 08/10/2021 Patient seen and examined in the ICU He remains on the vent AC/20/500/30 5% with 5 of PEEP Still off sedation but no response Has mitts on the right hand Currently getting dialysis Art line functioning well TPN hanging Discussed with RN Chart reviewed 08/09/2021 Patient seen and examined in the ICU He remains on the ventilator AC/20/500/30 5% with 5 of PEEP Has IV TPN Fentanyl is been off for a day and Versed to been off for 2 days but he still not waking up Discussed with RN Chart reviewed He remains very critically ill 08/08/2021 Patient seen and examined in the ICU He remains on the ventilator AC/20/500/30 5% with 5 of PEEP He has a mitt on the right hand Left arm with art line SCDs in place OG to suction Has TPN hanging Sedated with fentanyl Has IV Levophed and IV vasopressin hanging Chart reviewed Discussed with RN He remains extremely critically ill 08/07/2021 Patient seen and examined in the ICU He remains on the vent AC/20/500/30 5% with 5 of PEEP Has art line in place SCDs in place Has OG clamped On IV TPN Sedated with fentanyl Versed Has IV Levophed and vasopressin hanging Discussed with RN Chart reviewed He remains extremely critically ill 08/06/2021 Patient seen and examined in the ICU CT of the head showing a small stroke CT of the abdomen showing possible obstruction Discussed with RN Chart reviewed He is still intubated AC/26/500/1 100% with 10 of PEEP OG feeds are running but we are going to stop that and start some TPN if okay with nephrology Sedated with propofol Versed and fentanyl and paralyzed with vecuronium He remains extremely critically ill 08/05/2021 Patient seen and examined in the ICU He is currently on dialysis Discussed with RN He is still on the vent AC/500/30 5% with 5 of PEEP Has SCDs in place Holloway to bedside drainage Sedated with fentanyl and Versed Has IV Levophed hanging Also on IV neomycin Also on IV vasopressin Extremely critically ill 08/04/2021 Patient seen and examined in the ICU He is mechanically ventilated AC/16500/40 5% with 5 of PEEP He is extremely hypotensive 63/40 currently despite having Levophed and vasopressin Discussed with RN were going to start Michael-Synephrine Tachycardic at 117 bpm Patient is extremely cool and clammy Had a fever to 103.5 last night currently at 102.9 He is extremely critically ill Vitals/I&O Vitals/I&O: Vital Signs Date Time Temp Pulse Resp B/P (MAP) Pulse Ox O2 Delivery O2 Flow Rate FiO2 08/12/21 11:00 92 20 115/47 100 Ventilator 08/12/21 08:23 15.0 08/12/21 08:00 98.4 98.4 I & O 08/11/21 08/11/21 08/12/21 15:00 23:00 07:00 Intake Total 620 ml 939 ml Output Total 250 ml 200 ml Balance 370 ml 739 ml Physical Exam Physical Exam: GENERAL: Sedated, orally intubated gentleman, not in distress. HEENT: Normocephalic atraumatic no conjunctival lesion. ETT OGT present LUNGS: Decreased breath sounds bilaterally. HEART: S1, S2 , Murmur present ABDOMEN: Soft, nontender. No organomegaly. Suprapubic catheter removed EXTREMITIES: Bilateral upper extremity edema, no cyanosis. SKIN: Blisters with ischemic changes present over left upper extremity fingers. Good radial pulse. AV shunt in the right upper extremity is unremarkable. Left great toe ingrown nail NEUROLOGIC: The patient cannot be judged as sedated and intubated. General: Other (Intubated) Heart: Regular rate Lungs: Crackles Abdomen: Normal bowel sounds Extremities: No edema Skin: No significant lesion Labs Labs: Laboratory Tests Test 08/12/21 07:45 O2 Saturation 99 % (92-99) Arterial Blood pH 7.36 (7.35-7.45) Arterial Blood pCO2 at Patient Temp 35 mmHg (35-46) Arterial Blood pO2 at Patient Temp 147 mmHg (75-108) Arterial Blood HCO3 19 mmol/L (21-28) Arterial Blood Base Excess -6 mmol/L (-3-3) FiO2 35 Sodium Level 143 mmol/L (136-145) Potassium Level 4.8 mmol/L (3.5-5.1) Chloride Level 104 mmol/L (98-107) Carbon Dioxide Level 20 mmol/L (21-32) Anion Gap 19 (6-14) Blood Urea Nitrogen 106 mg/dL (8-26) Creatinine 7.5 mg/dL (0.7-1.3) Estimated GFR (Cockcroft-Gault) 7.5 Glucose Level 96 mg/dL (70-99) Calcium Level 8.7 mg/dL (8.5-10.1) Phosphorus Level 6.1 mg/dL (2.6-4.7) Magnesium Level 2.5 mg/dL (1.8-2.4) Assessment and Plan Assessmemt and Plan Problems Medical Problems: (1) Hypoxia Status: Acute (2) Respiratory failure Status: Acute (3) Sepsis Status: Acute (4) Stroke Status: Acute (5) UTI (urinary tract infection) Status: Acute Respiratory failure requiring mechanical ventilation Right frontal lobe stroke Severe sepsis Small stroke Suprapubic catheter; CHF; COPD; hypertension; pneumonia, End-stage renal disease, on dialysis; history of peritonitis dialysis as well left kidney stents; suprapubic catheter. Plan ICU monitoring Continue holding sedation Continue optomechanical engineer Continue AVAPS with BiPAP machine via tracheostomy IV antibiotics per infectious disease Trend labs Home meds when possible Lovenox 40 mg a day for DVT prophylaxis we will continue SCDs as well Dialysis per nephrology Nutritional support He remains very critically ill Appreciate subspecialist input Prognosis extremely guarded CC time 32 minutes Comment Review of Relevant I have reviewed the following items allyson (where applicable) has been applied. Medications: Current Medications Medications (Trade) Dose Ordered Sig/Kevin Route PRN Reason Start Time Stop Time Status Last Admin Dose Admin Nafcillin Sodium 2 gm/Dextrose 100 ml @ 200 mls/hr Q4HRS IV 08/11/21 12:00 08/12/21 08:29 Sodium Chloride 110 meq/Potassium Chloride 20 meq/ Potassium Phosphate 6 mmol/ Calcium Gluconate 5 meq/ Multivitamins 10 ml/Zinc/Copper/ Manganese/ Selenium 1 ml/ Total Parenteral Nutrition/Amino Acids/Dextrose/ Fat Emulsion Intravenous 1,200 ml @ 50 mls/hr TPN CONT IV 08/11/21 22:00 08/12/21 21:59 08/11/21 22:46 Justifications for Admission Other Justification SBO DEVAN NICHOLE III DO Aug 12, 2021 11:56
[2021-08-12] MEDS ORDERED: DIALYSIS PATIENT. MC PRN (12:45)
[2021-08-12] MEDS ORDERED: IV NORMAL SALINE 1000ML BAG 1,000 ML IV PRN (12:45)
[2021-08-12] MEDS ORDERED: ALBUMIN HUMAN 25% 200 ML IV PRN (12:45)
--- NOTE | 2021-08-12 13:00 | PDOC ---
SANJEEV PASTOR [employer] OPERATOR 08/12/21 1300: CARDIO Progress Notes Date and Time Date of Service 08/12/2021 Time of Evaluation 1250 Subjective Subjective: Other (intubated with MV) Vitals Vitals Vital Signs Date Time Temp Pulse Resp B/P (MAP) Pulse Ox O2 Delivery O2 Flow Rate FiO2 08/12/21 11:00 92 20 115/47 100 Ventilator 08/12/21 08:23 15.0 08/12/21 08:00 98.4 98.4 Weight Weight [ ] Input and Output Intake and Output Intake and Output 08/12/21 06:59 Intake Total 1559 ml Output Total 450 ml Balance 1109 ml Intake Oral 0 ml IV Total 1559 ml Output Urine Total 0 ml Gastric Drainage Total 450 ml Laboratory Labs Laboratory Tests Test 08/12/21 07:45 O2 Saturation 99 % (92-99) Arterial Blood pH 7.36 (7.35-7.45) Arterial Blood pCO2 at Patient Temp 35 mmHg (35-46) Arterial Blood pO2 at Patient Temp 147 mmHg (75-108) Arterial Blood HCO3 19 mmol/L (21-28) Arterial Blood Base Excess -6 mmol/L (-3-3) FiO2 35 Sodium Level 143 mmol/L (136-145) Potassium Level 4.8 mmol/L (3.5-5.1) Chloride Level 104 mmol/L (98-107) Carbon Dioxide Level 20 mmol/L (21-32) Anion Gap 19 (6-14) Blood Urea Nitrogen 106 mg/dL (8-26) Creatinine 7.5 mg/dL (0.7-1.3) Estimated GFR (Cockcroft-Gault) 7.5 Glucose Level 96 mg/dL (70-99) Calcium Level 8.7 mg/dL (8.5-10.1) Phosphorus Level 6.1 mg/dL (2.6-4.7) Magnesium Level 2.5 mg/dL (1.8-2.4) Microbiology Micro Microbiology 08/06/21 Blood Culture - Final, Complete NO GROWTH AFTER 5 DAYS 08/03/21 Urine Culture - Final, Complete Review of Systems Constitutional: yes: unresponsive Physical Exam HEENT: Neck Supple W Full Motion Chest: Symmetric LUNGS: Other (diminished, intubated with MV) Heart: RRR (SR/ST with first degree AV block) Abdomen: Other (soft) Extremities: Other (1+bilateral le pitting edma) Neurology: other (off sedation, moves with stimulation) Assessment Assessment 1. Right frontoparietal subacute infarct 2. Acute respiratory failure; multifactorial. s/p intubation, vent weaning ongoing 3. Leukocytosis, fevers, sepsis; BC + GPC 4. Septic shock 5. UTI with suprapubic cath 6. ESRD on HD. hyperkalemia resolved 7. Arrhythmia; presently SR/ST with long first degree AV block. no NSVT 8. Acute on chronic diastolic CHF; Echo 04/13 with preserved LV systolic function. LHC 04/13 with normal coronaries 9. Valvular disease: mod to severe 10. SSS s/p leadless PPM 11. Moderate secondary pulmonary HTN 12. Hypothyroidism 13. Mildly elevated LFTs 14. Anemia, thrombocytopenia; much improved PLT normalized 15. BUE edema: Superficial vein thrombosis within the left cephalic and basilic veins. right external graft patent without thrombosis Arterial duplex also indicated possible left radial stenosis and distal ulnar stenosis however 2-3+ pulse 16. Encephalopathy: off sedation Recommendations Ongoing antibiotic therapy, treatment of sepsis. pressor as warranted Fluid offloading via HD Continue heparin for VTE prophylaxis Supportive care from a CV standpoint Future consideration for TAVR Secondary prevention as able Justicifation of Admission Dx: Justifications for Admission: Justification of Admission Dx: N/A MARIANN TIRADO MD 08/13/21 0117: CARDIO Progress Notes Plan Plan Late entry for 08/12/2021 The patient was seen and interviewed as well as examined at the bedside. The chart was reviewed. The case was discussed. Agree with the plan of care. SANJEEV PASTOR APRN Aug 12, 2021 13:00 MARIANN TIRADO MD Aug 13, 2021 01:17
--- NOTE | 2021-08-12 16:21 | NUR ---
SS following up with discharge planning. SS reviewed pt chart and discussed with pt RN. Pt is currently on the vent at 35%. COVID19 negative. Pt on TPN and IV Nafcillin. Pt on Fentanyl. Hemodialysis. Not ready. SS will continue to follow for discharge planning.
[2021-08-12] MEDS: ATORVASTATIN CALCIUM 20 MG TABLET PO SCH (21:00)
[2021-08-12] MEDS ORDERED: TOTAL PARENTERAL NUTRITION IV SCH (22:00)
[2021-08-12] MEDS ORDERED: DEXTROSE 70% IV SCH (22:00)
[2021-08-12] MEDS ORDERED: AMINO ACID IV SCH (22:00)
[2021-08-12] MEDS ORDERED: [UNRECOGNIZED DRUG - OTHER] IV SCH (22:00)
[2021-08-13] VITALS (24 sets, daily range): BP systolic 87–156; BP diastolic 46–80
[2021-08-13] MEDS: NAFCILLIN 2 GM in IV DEXTROSE 5% 100ML 100 ML IV SCH ×6 (00:26→19:59)
--- NOTE | 2021-08-13 08:13 | PDOC ---
Infectious Disease Note Subjective: Subjective Patient is intubated sedated No acute issues reported Discussed with RN Vital Signs: Vital Signs Vital Signs Date Time Temp Pulse Resp B/P (MAP) Pulse Ox O2 Delivery O2 Flow Rate FiO2 08/13/21 04:10 99 Ventilator 08/12/21 21:00 29 125/56 08/12/21 20:00 98.9 98.9 08/12/21 18:00 96 08/12/21 08:53 15.0 Physical Exam: PHYSICAL EXAM GENERAL: Sedated, orally intubated gentleman, not in distress. HEENT: Normocephalic atraumatic no conjunctival lesion. ETT OGT present, blood- tinged output LUNGS: Decreased breath sounds bilaterally. HEART: S1, S2 , Murmur present ABDOMEN: Soft, nontender. No organomegaly. Suprapubic catheter removed EXTREMITIES: Bilateral upper extremity edema, no cyanosis. SKIN: Blisters with ischemic changes present over left upper extremity fingers. Palpable radial pulse. AV shunt in the right upper extremity is unremarkable. Left great toe ingrown nail NEUROLOGIC: The patient cannot be judged as sedated and intubated. Medications: Inpatient Meds: Medications reviewed. Labs: Lab Laboratory Tests Test 08/13/21 05:20 Sodium Level 143 mmol/L (136-145) Potassium Level 3.6 mmol/L (3.5-5.1) Chloride Level 107 mmol/L (98-107) Carbon Dioxide Level 23 mmol/L (21-32) Anion Gap 13 (6-14) Blood Urea Nitrogen 59 mg/dL (8-26) Creatinine 4.4 mg/dL (0.7-1.3) Estimated GFR (Cockcroft-Gault) 13.9 Glucose Level 96 mg/dL (70-99) Calcium Level 7.3 mg/dL (8.5-10.1) Objective: Assessment: MSSA Bacteremia 08/03/2021 ECHO 08/11 Moderate Repeat BC neg from 08/[address] head with frontoparietal infarct Encephalopathy. Fever. Improved Complicated urinary tract infection with sepsis. Hypotension. Improved Acute Respiratory failure, requiring intubation. End-stage renal disease, on hemodialysis. Congestive heart failure. History of hypertension. Leukocytosis likely reactive from GI bleed Suprapubic catheter removed Left upper extremity blisters, ischemic changes, has good radial pulse Superficial venous thrombosis Plan: Plan of Care Leukocytosis likely reactive from GI bleed Lt upper ext Arterial line has been removed Cont nafcillin,was on Zosyn Venous ultrasound bilateral upper extremity neg for DVT,has sup venous thrombosis Arterial ultrasound for left upper extremity reviewed ,may need vascular consult 2 D Echo reviewed has ,, cardiology is following,will need RADHA Supportive care Follow repeat blood cultures negative so far from August 06, [address] chest abd and pelvis noted Repeat CT head noted Neurology following Local skin care Critically ill Discussed with BRYSON GARCES MD Aug 13, 2021 08:13
[2021-08-13 08:32] LABS: BASE EXCESS ABG 2 mmol/L (-3-3); HCO3 ABG 26 mmol/L (21-28); PCO2 ABG 36 mmHg (35-46); PO2 ABG 155 mmHg (75-108); SAT O2 ABG 99 % (92-99)
[2021-08-13 08:37] LABS: BASO # 0.1 x10^3/uL (0.0-0.2); BASO % 1 % (0-3); EOS # 0.4 x10^3/uL (0.0-0.7); EOS % 3 % (0-3); HEMATOCRIT 34.7 % (39.0-53.0); HEMOGLOBIN 11.4 g/dL (13.0-17.5); LYMPH # 1.3 x10^3/uL (1.0-4.8); LYMPH % 11 % (24-48); MEAN CORPUSCULAR HEMOGLOBIN 33 pg (25-35); MEAN CORPUSCULAR HGB CONC 33 g/dL (31-37); MEAN CORPUSCULAR VOLUME 99 fL (79-100); MONO # 1.7 x10^3/uL (0.0-1.1); MONO % 14 % (0-9); NEUT # 8.5 x10^3/uL (1.8-7.7); NEUT % 71 % (31-73); PLATELET COUNT 237 x10^3/uL (140-400); RED BLOOD COUNT 3.52 x10^6/uL (4.30-5.70); RED CELL DISTRIBUTION WIDTH 18.2 % (11.5-14.5)
[2021-08-13 08:38] LABS: FIO2 ABG 35
[2021-08-13] MEDS: PANTOPRAZOLE IV PUSH 40 MG VIAL. IVP SCH (08:57)
[2021-08-13] MEDS: HEPARIN for SUB-Q USE 5,000 UNIT/ML VIAL. SQ SCH ×2 (08:59→20:56)
[2021-08-13] MEDS: ASPIRIN CHEWABLE 81 MG TABLET. PO SCH (09:00)
[2021-08-13 09:14] LABS: ALBUMIN 1.7 g/dL (3.4-5.0); ALBUMIN/GLOBULIN RATIO 0.3 (1.0-1.7); CALCIUM 7.2 mg/dL (8.5-10.1); CREATININE 4.5 mg/dL (0.7-1.3); GFR 13.6; POTASSIUM 3.6 mmol/L (3.5-5.1); TOTAL BILIRUBIN 3.2 mg/dL (0.2-1.0); TOTAL PROTEIN 6.7 g/dL (6.4-8.2)
--- NOTE | 2021-08-13 09:30 | PDOC ---
SANJEEV PASTOR BOOKS SALESPERSON 08/13/21 0930: CARDIO Progress Notes Date and Time Date of Service 08/13/2021 Time of Evaluation 0810 Subjective Subjective: Other (intubated with MV) Vitals Vitals Vital Signs Date Time Temp Pulse Resp B/P (MAP) Pulse Ox O2 Delivery O2 Flow Rate FiO2 08/13/21 09:00 106 109/48 99 15.0 08/13/21 08:34 Ventilator 08/13/21 08:00 98.2 98.2 08/12/21 21:00 29 Weight Weight [ ] Input and Output Intake and Output Intake and Output 08/13/21 07:00 Intake Total 821 ml Output Total 150 ml Balance 671 ml Intake Oral 0 ml IV Total 821 ml Output Urine Total 0 ml Gastric Drainage Total 150 ml Laboratory Labs Laboratory Tests Test 08/13/21 05:20 08/13/21 08:20 White Blood Count 12.0 x10^3/uL (4.0-11.0) Red Blood Count 3.52 x10^6/uL (4.30-5.70) Hemoglobin 11.4 g/dL (13.0-17.5) Hematocrit 34.7 % (39.0-53.0) Mean Corpuscular Volume 99 fL (79-100) Mean Corpuscular Hemoglobin 33 pg (25-35) Mean Corpuscular Hemoglobin Concent 33 g/dL (31-37) Red Cell Distribution Width 18.2 % (11.5-14.5) Platelet Count 237 x10^3/uL (140-400) Neutrophils (%) (Auto) 71 % (31-73) Lymphocytes (%) (Auto) 11 % (24-48) Monocytes (%) (Auto) 14 % (0-9) Eosinophils (%) (Auto) 3 % (0-3) Basophils (%) (Auto) 1 % (0-3) Neutrophils # (Auto) 8.5 x10^3/uL (1.8-7.7) Lymphocytes # (Auto) 1.3 x10^3/uL (1.0-4.8) Monocytes # (Auto) 1.7 x10^3/uL (0.0-1.1) Eosinophils # (Auto) 0.4 x10^3/uL (0.0-0.7) Basophils # (Auto) 0.1 x10^3/uL (0.0-0.2) Sodium Level 144 mmol/L (136-145) Potassium Level 3.6 mmol/L (3.5-5.1) Chloride Level 107 mmol/L (98-107) Carbon Dioxide Level 23 mmol/L (21-32) Anion Gap 14 (6-14) Blood Urea Nitrogen 59 mg/dL (8-26) Creatinine 4.5 mg/dL (0.7-1.3) Estimated GFR (Cockcroft-Gault) 13.6 BUN/Creatinine Ratio 13 (6-20) Glucose Level 95 mg/dL (70-99) Calcium Level 7.2 mg/dL (8.5-10.1) Total Bilirubin 3.2 mg/dL (0.2-1.0) Aspartate Amino Transf (AST/SGOT) 70 U/L (15-37) Alanine Aminotransferase (ALT/SGPT) 47 U/L (16-63) Alkaline Phosphatase 267 U/L (46-116) Total Protein 6.7 g/dL (6.4-8.2) Albumin 1.7 g/dL (3.4-5.0) Albumin/Globulin Ratio 0.3 (1.0-1.7) O2 Saturation 99 % (92-99) Arterial Blood pH 7.48 (7.35-7.45) Arterial Blood pCO2 at Patient Temp 36 mmHg (35-46) Arterial Blood pO2 at Patient Temp 155 mmHg (75-108) Arterial Blood HCO3 26 mmol/L (21-28) Arterial Blood Base Excess 2 mmol/L (-3-3) FiO2 35 Microbiology Micro Microbiology 08/06/21 Blood Culture - Final, Complete NO GROWTH AFTER 5 DAYS 08/03/21 Urine Culture - Final, Complete Review of Systems Constitutional: yes: unresponsive Physical Exam HEENT: Neck Supple W Full Motion Chest: Symmetric LUNGS: Other (diminished, intubated with MV) Heart: RRR (SR/ST with first degree AV block) Abdomen: Other (soft) Extremities: Other (1+bilateral le pitting edma) Neurology: other (off sedation, moves with stimulation) Assessment Assessment 1. CVA with Right frontoparietal subacute infarct 2. Acute respiratory failure; multifactorial. s/p intubation, vent weaning ongoing 3. Leukocytosis, fevers, sepsis; BC + GPC 4. Septic shock 5. UTI with suprapubic cath 6. ESRD on HD. hyperkalemia resolved 7. Arrhythmia; presently SR/ST with long first degree AV block. no NSVT 8. Acute on chronic diastolic CHF; Echo 04/13 with preserved LV systolic function. LHC 04/13 with normal coronaries 9. Valvular disease: mod to severe 10. SSS s/p leadless PPM 11. Moderate secondary pulmonary HTN 12. Hypothyroidism 13. Mildly elevated LFTs 14. Anemia, thrombocytopenia; much improved PLT normalized 15. BUE edema: Superficial vein thrombosis within the left cephalic and basilic veins. right external graft patent without thrombosis Arterial duplex also indicated possible left radial stenosis and distal ulnar stenosis however 2-3+ pulse 16. Encephalopathy: off sedation Recommendations Ongoing antibiotic therapy, treatment of sepsis. pressor as warranted Fluid offloading via HD Continue heparin for VTE prophylaxis Supportive care from a CV standpoint Future consideration for TAVR Secondary prevention as able Justicifation of Admission Dx: Justifications for Admission: Justification of Admission Dx: N/A MARIANN TIRADO MD 08/13/21 1740: CARDIO Progress Notes Plan Plan The patient was seen and interviewed as well as examined at the bedside. The chart was reviewed. The case was discussed. Agree with the plan of care. SANJEEV PASTOR APRN Aug 13, 2021 09:30 MARIANN TIRADO MD Aug 13, 2021 17:40
--- NOTE | 2021-08-13 09:51 | PDOC ---
DATE OF SERVICE DATE: 08/13/21 TIME: 09:48 SUBJECTIVE ROS Intubated, off sedation , waking up OBJECTIVE Vital Signs Vital Signs Date Time Temp Pulse Resp B/P (MAP) Pulse Ox O2 Delivery O2 Flow Rate FiO2 08/13/21 09:00 106 109/48 99 15.0 08/13/21 08:34 Ventilator 08/13/21 08:00 98.2 98.2 08/12/21 21:00 29 I & 0 Intake and Output 08/13/21 07:00 Intake Total 821 ml Output Total 150 ml Balance 671 ml Intake Oral 0 ml IV Total 821 ml Output Urine Total 0 ml Gastric Drainage Total 150 ml PHYSICAL EXAM Physical Exam GENERAL: orally intubated HEENT: ETT + NECK: Supple. LUNGS: Decreased breath sounds bilaterally. HEART: S1, S2 regular. ABDOMEN: Soft, nontender. No organomegaly. has chronic Suprapubic EXTREMITIES: ischemic changes present left upper extremity fingers. AV shunt in the right upper extremity SKIN: .No Rash NEUROLOGIC: intubated, not waking up off sedation DIAGNOSIS/ASSESSMENT Assessment & Plan ESRD - on HD TTS ,Off pressors, Dialyzed yesterday, tolerated. Currently no emergent indication for dialysis today . Supportive care Encephalopathy stroke with left-sided weakness -Cerebrovascular accident. CT head with frontoparietal infarct Acute respiratory failure; multifactorial. s/p intubation Leukocytosis/ ,Septic shock; MSSA Bacteremia 08/03/2021 Complicated urinary tract infection with sepsis. Acute on chronic diastolic CHF; Echo 04/13 with preserved LV systolic function. LHC 04/13 with normal coronaries Valvular disease: mod to severe SSS s/p leadless PPM placed at Moderate secondary pulmonary HTN Hypothyroidism Anemia Hgb trending down , per primary . Hold CLIFF due to Possible CVA COMMENT/RELEVANT DATA Meds Current Medications Medications (Trade) Dose Ordered Sig/Kevin Start Time Stop Time Status Last Admin Dose Admin Acetaminophen (Children'S Tylenol) 160 mg PRN Q6HRS PRN 08/09/21 20:30 UNV Acetaminophen (Tylenol Supp) 650 mg PRN Q6HRS PRN 08/03/21 20:45 08/04/21 20:25 650 MG Acetaminophen (Tylenol) 650 mg PRN Q6HRS PRN 08/03/21 20:45 Albumin Human 200 ml @ 200 mls/hr 1X PRN PRN 08/12/21 12:45 08/12/21 18:44 DC Aspirin (Aspirin Chewable) 81 mg [id number] 08/06/21 11:45 08/13/21 09:00 81 MG Atorvastatin Calcium (Lipitor) 20 mg QHS 08/06/21 21:00 08/09/21 21:00 20 MG Atropine Sulfate (ATROPINE 0.5mg SYRINGE) 0.5 mg PRN Q5MIN PRN 08/03/21 15:00 Chlorhexidine Gluconate (Peridex) 15 ml BID 08/03/21 21:00 08/04/21 19:49 DC Ciprofloxacin/ Dextrose 200 ml @ 200 mls/hr DAILY 08/04/21 09:00 08/05/21 09:18 DC 08/04/21 11:38 200 MLS/HR Dexmedetomidine HCl 400 mcg/ Sodium Chloride 100 ml @ 3.725 mls/ hr CONT PRN 08/03/21 15:00 08/10/21 11:12 3.725 MLS/HR Dextrose (Dextrose 50%-Water Syringe) 12.5 gm PRN Q15MIN PRN 08/05/21 13:00 08/06/21 17:47 25 GM Etomidate (Amidate) 20 mg STK-MED ONCE 08/03/21 17:04 08/03/21 17:04 DC Famotidine (Pepcid Vial) 20 mg QODAY 08/04/21 09:00 08/06/21 14:25 DC 08/06/21 09:08 20 MG Fentanyl Citrate 30 ml @ 2.5 mls/hr CONT PRN 08/03/21 15:00 08/12/21 08:23 2.5 MLS/HR Glycerin/ Hypromellose/ Polyethylene (Artificial Tears) 1 drop PRN Q1HR PRN 08/03/21 15:00 Heparin Sodium (Porcine) (Heparin Sodium) 5,000 unit Q12HR 08/05/21 11:00 08/13/21 08:59 5,000 UNIT Info (CONTRAST GIVEN -- Rx MONITORING) 1 each PRN DAILY PRN 08/06/21 09:45 08/08/21 09:44 DC Info (PHARMACY MONITORING -- do not chart) 1 each PRN DAILY PRN 08/12/21 12:45 Info (Tpn Per Pharmacy) 1 each PRN DAILY PRN 08/06/21 12:30 08/12/21 10:15 1 EACH Iohexol (Omnipaque 240 Mg/ml) 50 ml STK-MED ONCE 08/04/21 12:36 08/04/21 12:36 DC Iohexol (Omnipaque 300 Mg/ml) 60 ml 1X ONCE 08/06/21 09:30 08/06/21 09:31 DC 08/06/21 09:30 60 ML Lidocaine HCl (Buffered Lidocaine 1%) 3 ml 1X ONCE 08/04/21 13:30 08/04/21 13:31 DC 08/04/21 13:15 2 ML Lidocaine HCl (Xylocaine-Mpf 1% 5ml Vial) 5 ml 1X ONCE 08/04/21 09:30 08/04/21 09:31 DC Magnesium Sulfate 50 ml @ 25 mls/hr 1X ONCE 08/05/21 16:30 08/05/21 18:29 DC 08/05/21 16:59 25 MLS/HR Midazolam HCl (Versed) 5 mg PRN 1X PRN 08/03/21 15:00 08/04/21 14:59 DC Nafcillin Sodium 2 gm/Dextrose 100 ml @ 200 mls/hr Q4HRS 08/11/21 12:00 08/13/21 08:00 200 MLS/HR Norepinephrine Bitartrate 32 mg/ Dextrose 250 ml @ 3.492 mls/ hr CONT PRN 08/04/21 05:30 08/10/21 13:30 1.746 MLS/HR Norepinephrine Bitartrate 8 mg/ Dextrose 258 ml @ 14.416 mls/ hr CONT PRN 08/03/21 15:00 08/04/21 05:29 DC 08/04/21 03:52 141.274 MLS/HR Pantoprazole Sodium (PROTONIX VIAL for IV PUSH) 40 mg DAILYAC 08/06/21 15:00 08/13/21 08:57 40 MG Phenylephrine HCl 50 mg/Sodium Chloride 255 ml @ 11.399 mls/ hr CONT PRN 08/04/21 06:30 08/05/21 05:38 22.797 MLS/HR Piperacillin Sod/ Tazobactam Sod 2.25 gm/Sodium Chloride 50 ml @ 100 mls/hr Q6HRS 08/04/21 12:00 UNV Piperacillin Sod/ Tazobactam Sod 4.5 gm/Sodium Chloride 100 ml @ 200 mls/hr 1X ONCE 08/03/21 11:15 08/03/21 11:44 DC 08/03/21 11:26 200 MLS/HR Propofol 100 ml @ 2.235 mls/ hr CONT PRN 08/03/21 15:00 Rocuronium [place] (Zemuron) 50 mg STK-MED ONCE 08/03/21 17:04 08/03/21 17:04 DC Sodium Chloride 1,000 ml @ 1,000 mls/hr Q1H PRN 08/12/21 12:45 08/12/21 18:44 DC Sodium Chloride (Normal Saline Flush) 10 ml 1X PRN PRN 08/07/21 05:30 08/08/21 05:29 DC Sodium Chloride 90 meq/Potassium Chloride 20 meq/ Calcium Gluconate 10 meq/ Multivitamins 10 ml/Zinc/Copper/ Manganese/ Selenium 1 ml/ Total Parenteral Nutrition/Amino Acids/Dextrose 1,200 ml @ 50 mls/hr TPN CONT 08/07/21 22:00 08/08/21 21:59 DC 08/07/21 21:26 50 MLS/HR Sodium Chloride 90 meq/Potassium Chloride 20 meq/ Calcium Gluconate 10 meq/ Multivitamins 10 ml/Zinc/Copper/ Manganese/ Selenium 1 ml/ Total Parenteral Nutrition/Amino Acids/Dextrose/ Fat Emulsion Intravenous 1,200 ml @ 50 mls/hr TPN CONT 08/06/21 22:00 08/07/21 21:59 DC 08/06/21 21:58 50 MLS/HR Sodium Chloride 110 meq/Calcium Gluconate 5 meq/ Multivitamins 10 ml/Zinc/Copper/ Manganese/ Selenium 1 ml/ Total Parenteral Nutrition/Amino Acids/Dextrose/ Fat Emulsion Intravenous 1,200 ml @ 50 mls/hr TPN CONT 08/12/21 22:00 08/13/21 21:59 08/12/21 22:58 50 MLS/HR Sodium Chloride 110 meq/Potassium Chloride 20 meq/ Calcium Gluconate 10 meq/ Multivitamins 10 ml/Zinc/Copper/ Manganese/ Selenium 1 ml/ Total Parenteral Nutrition/Amino Acids/Dextrose 1,200 ml @ 50 mls/hr TPN CONT 08/08/21 22:00 08/09/21 21:59 DC 08/08/21 22:09 50 MLS/HR Sodium Chloride 110 meq/Potassium Chloride 20 meq/ Potassium Phosphate 6 mmol/ Calcium Gluconate 5 meq/ Multivitamins 10 ml/Zinc/Copper/ Manganese/ Selenium 1 ml/ Total Parenteral Nutrition/Amino Acids/Dextrose/ Fat Emulsion Intravenous 1,200 ml @ 50 mls/hr TPN CONT 08/11/21 22:00 08/12/21 22:00 DC 08/11/21 22:46 50 MLS/HR Sodium Phosphate 15 mmol/Sodium Chloride 105 ml @ 105 mls/hr 1X ONCE 08/08/21 14:00 08/08/21 14:59 DC 08/08/21 15:22 105 MLS/HR Vancomycin HCl (Vanco Per Pharmacy) 1 each PRN DAILY PRN 08/04/21 08:00 UNV Vancomycin HCl (Vancomycin Random Level) 1 each 1X ONCE 08/05/21 06:00 08/05/21 06:01 DC 08/05/21 06:14 1 EACH Vancomycin HCl 1.5 gm/Sodium Chloride 500 ml @ 250 mls/hr 1X ONCE 08/03/21 12:00 08/03/21 13:59 DC 08/03/21 12:00 250 MLS/HR Vancomycin HCl 500 mg/Sodium Chloride 100 ml @ 100 mls/hr QTUTHSA 08/05/21 16:00 08/07/21 09:38 DC 08/05/21 15:59 100 MLS/HR Vasopressin 20 unit/Dextrose 101 ml @ 12 mls/hr CONT PRN 08/04/21 03:45 08/08/21 22:04 12 MLS/HR Vecuronium [place] (Norcuron Bolus) 6 mg PRN 1X PRN 08/03/21 15:00 08/04/21 14:59 DC Lab Laboratory Tests Test 08/13/21 05:20 08/13/21 08:20 White Blood Count 12.0 x10^3/uL (4.0-11.0) Red Blood Count 3.52 x10^6/uL (4.30-5.70) Hemoglobin 11.4 g/dL (13.0-17.5) Hematocrit 34.7 % (39.0-53.0) Mean Corpuscular Volume 99 fL (79-100) Mean Corpuscular Hemoglobin 33 pg (25-35) Mean Corpuscular Hemoglobin Concent 33 g/dL (31-37) Red Cell Distribution Width 18.2 % (11.5-14.5) Platelet Count 237 x10^3/uL (140-400) Neutrophils (%) (Auto) 71 % (31-73) Lymphocytes (%) (Auto) 11 % (24-48) Monocytes (%) (Auto) 14 % (0-9) Eosinophils (%) (Auto) 3 % (0-3) Basophils (%) (Auto) 1 % (0-3) Neutrophils # (Auto) 8.5 x10^3/uL (1.8-7.7) Lymphocytes # (Auto) 1.3 x10^3/uL (1.0-4.8) Monocytes # (Auto) 1.7 x10^3/uL (0.0-1.1) Eosinophils # (Auto) 0.4 x10^3/uL (0.0-0.7) Basophils # (Auto) 0.1 x10^3/uL (0.0-0.2) Sodium Level 144 mmol/L (136-145) Potassium Level 3.6 mmol/L (3.5-5.1) Chloride Level 107 mmol/L (98-107) Carbon Dioxide Level 23 mmol/L (21-32) Anion Gap 14 (6-14) Blood Urea Nitrogen 59 mg/dL (8-26) Creatinine 4.5 mg/dL (0.7-1.3) Estimated GFR (Cockcroft-Gault) 13.6 BUN/Creatinine Ratio 13 (6-20) Glucose Level 95 mg/dL (70-99) Calcium Level 7.2 mg/dL (8.5-10.1) Total Bilirubin 3.2 mg/dL (0.2-1.0) Aspartate Amino Transf (AST/SGOT) 70 U/L (15-37) Alanine Aminotransferase (ALT/SGPT) 47 U/L (16-63) Alkaline Phosphatase 267 U/L (46-116) Total Protein 6.7 g/dL (6.4-8.2) Albumin 1.7 g/dL (3.4-5.0) Albumin/Globulin Ratio 0.3 (1.0-1.7) O2 Saturation 99 % (92-99) Arterial Blood pH 7.48 (7.35-7.45) Arterial Blood pCO2 at Patient Temp 36 mmHg (35-46) Arterial Blood pO2 at Patient Temp 155 mmHg (75-108) Arterial Blood HCO3 26 mmol/L (21-28) Arterial Blood Base Excess 2 mmol/L (-3-3) FiO2 35 Results All relevant outside records, renal labs, imaging studies, telemetry/EKG's were reviewed. Justicifation of Admission Dx: Justifications for Admission: Justification of Admission Dx: N/A MARIYA NORMAN MD Aug 13, 2021 09:51
--- NOTE | 2021-08-13 10:31 | PDOC ---
PULMONARY PROGRESS NOTES DATE: 08/13/21 TIME: 10:27 Subjective Patient is starting to wake up. He is off sedation Currently on AVAPS mode due to shortage of ventilators in the hospital. 35% FiO2 5 Upper extremity swelling Vitals Vital Signs Date Time Temp Pulse Resp B/P (MAP) Pulse Ox O2 Delivery O2 Flow Rate FiO2 08/13/21 09:00 106 109/48 99 15.0 08/13/21 08:34 Ventilator 08/13/21 08:00 98.2 98.2 08/12/21 21:00 29 Comments on vent sedated ros unable to obtain HEENT: Other (nc at perrl nose clear orally intubated neck no lad no thyromegaly) Lungs: Crackles Cardiovascular: S1, S2 Abdomen: Soft, Non-tender Extremities: No Edema Skin: No Rashes Labs Laboratory Tests Test 08/11/21 11:50 08/12/21 07:45 08/13/21 05:20 08/13/21 08:20 Glucose (Fingerstick) 108 mg/dL (70-99) O2 Saturation 99 % (92-99) 99 % (92-99) Arterial Blood pH 7.36 (7.35-7.45) 7.48 (7.35-7.45) Arterial Blood pCO2 at Patient Temp 35 mmHg (35-46) 36 mmHg (35-46) Arterial Blood pO2 at Patient Temp 147 mmHg (75-108) 155 mmHg (75-108) Arterial Blood HCO3 19 mmol/L (21-28) 26 mmol/L (21-28) Arterial Blood Base Excess -6 mmol/L (-3-3) 2 mmol/L (-3-3) FiO2 35 35 Sodium Level 143 mmol/L (136-145) 144 mmol/L (136-145) Potassium Level 4.8 mmol/L (3.5-5.1) 3.6 mmol/L (3.5-5.1) Chloride Level 104 mmol/L (98-107) 107 mmol/L (98-107) Carbon Dioxide Level 20 mmol/L (21-32) 23 mmol/L (21-32) Anion Gap 19 (6-14) 14 (6-14) Blood Urea Nitrogen 106 mg/dL (8-26) 59 mg/dL (8-26) Creatinine 7.5 mg/dL (0.7-1.3) 4.5 mg/dL (0.7-1.3) Estimated GFR (Cockcroft-Gault) 7.5 13.6 Glucose Level 96 mg/dL (70-99) 95 mg/dL (70-99) Calcium Level 8.7 mg/dL (8.5-10.1) 7.2 mg/dL (8.5-10.1) Phosphorus Level 6.1 mg/dL (2.6-4.7) Magnesium Level 2.5 mg/dL (1.8-2.4) White Blood Count 12.0 x10^3/uL (4.0-11.0) Red Blood Count 3.52 x10^6/uL (4.30-5.70) Hemoglobin 11.4 g/dL (13.0-17.5) Hematocrit 34.7 % (39.0-53.0) Mean Corpuscular Volume 99 fL (79-100) Mean Corpuscular Hemoglobin 33 pg (25-35) Mean Corpuscular Hemoglobin Concent 33 g/dL (31-37) Red Cell Distribution Width 18.2 % (11.5-14.5) Platelet Count 237 x10^3/uL (140-400) Neutrophils (%) (Auto) 71 % (31-73) Lymphocytes (%) (Auto) 11 % (24-48) Monocytes (%) (Auto) 14 % (0-9) Eosinophils (%) (Auto) 3 % (0-3) Basophils (%) (Auto) 1 % (0-3) Neutrophils # (Auto) 8.5 x10^3/uL (1.8-7.7) Lymphocytes # (Auto) 1.3 x10^3/uL (1.0-4.8) Monocytes # (Auto) 1.7 x10^3/uL (0.0-1.1) Eosinophils # (Auto) 0.4 x10^3/uL (0.0-0.7) Basophils # (Auto) 0.1 x10^3/uL (0.0-0.2) BUN/Creatinine Ratio 13 (6-20) Total Bilirubin 3.2 mg/dL (0.2-1.0) Aspartate Amino Transf (AST/SGOT) 70 U/L (15-37) Alanine Aminotransferase (ALT/SGPT) 47 U/L (16-63) Alkaline Phosphatase 267 U/L (46-116) Total Protein 6.7 g/dL (6.4-8.2) Albumin 1.7 g/dL (3.4-5.0) Albumin/Globulin Ratio 0.3 (1.0-1.7) Laboratory Tests Test 08/13/21 05:20 08/13/21 08:20 White Blood Count 12.0 x10^3/uL (4.0-11.0) Red Blood Count 3.52 x10^6/uL (4.30-5.70) Hemoglobin 11.4 g/dL (13.0-17.5) Hematocrit 34.7 % (39.0-53.0) Mean Corpuscular Volume 99 fL (79-100) Mean Corpuscular Hemoglobin 33 pg (25-35) Mean Corpuscular Hemoglobin Concent 33 g/dL (31-37) Red Cell Distribution Width 18.2 % (11.5-14.5) Platelet Count 237 x10^3/uL (140-400) Neutrophils (%) (Auto) 71 % (31-73) Lymphocytes (%) (Auto) 11 % (24-48) Monocytes (%) (Auto) 14 % (0-9) Eosinophils (%) (Auto) 3 % (0-3) Basophils (%) (Auto) 1 % (0-3) Neutrophils # (Auto) 8.5 x10^3/uL (1.8-7.7) Lymphocytes # (Auto) 1.3 x10^3/uL (1.0-4.8) Monocytes # (Auto) 1.7 x10^3/uL (0.0-1.1) Eosinophils # (Auto) 0.4 x10^3/uL (0.0-0.7) Basophils # (Auto) 0.1 x10^3/uL (0.0-0.2) Sodium Level 144 mmol/L (136-145) Potassium Level 3.6 mmol/L (3.5-5.1) Chloride Level 107 mmol/L (98-107) Carbon Dioxide Level 23 mmol/L (21-32) Anion Gap 14 (6-14) Blood Urea Nitrogen 59 mg/dL (8-26) Creatinine 4.5 mg/dL (0.7-1.3) Estimated GFR (Cockcroft-Gault) 13.6 BUN/Creatinine Ratio 13 (6-20) Glucose Level 95 mg/dL (70-99) Calcium Level 7.2 mg/dL (8.5-10.1) Total Bilirubin 3.2 mg/dL (0.2-1.0) Aspartate Amino Transf (AST/SGOT) 70 U/L (15-37) Alanine Aminotransferase (ALT/SGPT) 47 U/L (16-63) Alkaline Phosphatase 267 U/L (46-116) Total Protein 6.7 g/dL (6.4-8.2) Albumin 1.7 g/dL (3.4-5.0) Albumin/Globulin Ratio 0.3 (1.0-1.7) O2 Saturation 99 % (92-99) Arterial Blood pH 7.48 (7.35-7.45) Arterial Blood pCO2 at Patient Temp 36 mmHg (35-46) Arterial Blood pO2 at Patient Temp 155 mmHg (75-108) Arterial Blood HCO3 26 mmol/L (21-28) Arterial Blood Base Excess 2 mmol/L (-3-3) FiO2 35 Medications Active Scripts Medications Dose Route/Sig Max Daily Dose Days Date Category Tums (Calcium Carbonate) 200 Mg Tab.chew 400 Mg PO HS 04/19/21 Reported Sensipar (Cinacalcet Hcl) 60 Mg Tablet 1 Tab PO DAILY 30 04/19/21 Reported Ferric Citrate 210 Mg Tablet 2 Tab PO TID 30 04/19/21 Reported Lasix (Furosemide) 40 Mg Tablet 40 Mg PO BID 04/19/21 Reported Renagel (Sevelamer Hcl) 800 Mg Tablet 2 Tab PO TIDWMEALS 01/18/21 Reported Kapspargo Sprinkle (Metoprolol Succinate) 50 Mg Cap.spr.24 50 Mg PO DAILY 01/18/21 Reported Comments Chest x-ray reviewed dated 08/09/2021. Faint bilateral infiltrates CT chest reviewed dated 08/06/2021. Small basal pleural effusion with associated atelectasis. No definite consolidation seen Impression . IMPRESSION: 1. Acute hypoxemic respiratory failure, multifactorial. 2. Septic shock./Urosepsis 3. Fever related to above. 4. SARS-CoV-2 testing negative. 5. End-stage renal disease, on hemodialysis. 6. Possible stroke. 7. MSSA bactremia 8. Encephalopathy. Off sedation but still nonresponsive. Could be related to stroke. 9. Suspected ischemic stroke Other comorbidities including end-stage renal disease, hypertension, chronic obstructive pulmonary disease, gastroesophageal reflux, ischemic cardiomyopathy. 10. Upper extremity swelling. Venous Dopplers with no DVT but only superficial phlebitis. Arterial Dopplers with proximal stenosis of ulnar and radial Plan . Updated 08/12 Continue vent support assist-control mode. setting reviewed CT head with no new stroke. repeat bcx neg abx per id vasopressor to keep map 65 complicated urinary tract infection with septic shock. mssa bactremia Follow ID recommendations Hemodialysis per nephrology Follow blood cultures DVT GI prophylaxis CT chest reviewed. No focal consolidation. Small basal effusion with associated atelectasis. discussed w rn rt Off sedation for 72 hours. Patient still not responsive Venous Dopplers of upper extremities reviewed. Arterial Doppler results reviewed as well. Follow-up vascular surgery recommendations We will discontinue Trental completely and let him wake up for a CPAP trial. Discussed with RN and RT Updated 08/11 Continue vent support assist-control mode. setting reviewed no weaning. CT head with no new stroke. repeat bcx neg abx per id vasopressor to keep map 65 complicated urinary tract infection with septic shock. mssa bactremia Follow ID recommendations Hemodialysis per nephrology Follow blood cultures DVT GI prophylaxis CT chest reviewed. No focal consolidation. Small basal effusion with associated atelectasis. discussed w rn rt Off sedation for 72 hours. Patient still not responsive Venous Dopplers of upper extremities ordered. Discussed with RN and RT Updated 08/10 Continue vent support assist-control mode. setting reviewed no weaning. CT head today to rule out ischemic stroke. repeat bcx neg abx per id vasopressor to keep map 65 complicated urinary tract infection with septic shock. mssa bactremia Follow ID recommendations Hemodialysis per nephrology Follow blood cultures DVT GI prophylaxis CT chest reviewed. No focal consolidation. Small basal effusion with associate d atelectasis. discussed w rn rt Off sedation for 72 hours. Patient still not responsive Discussed with RN and RT Updated 08/09 Continue vent support assist-control mode. setting reviewed repeat bcx neg abx per id vasopressor to keep map 65 complicated urinary tract infection with septic shock. mssa bactremia Follow ID recommendations Hemodialysis per nephrology Follow blood cultures DVT GI prophylaxis CT chest reviewed. No focal consolidation. Small basal effusion with associated atelectasis. discussed w rn rt Off sedation for 48 hours. If there is not wake up in the next few days, may need an MRI. Discussed with RN and RT Updated 08/08 Continue vent support assist-control mode. setting reviewed repeat bcx neg abx per id vasopressor to keep map 65 complicated urinary tract infection with septic shock. mssa bactremia Follow ID recommendations Hemodialysis per nephrology Follow blood cultures DVT GI prophylaxis CT chest reviewed. No focal consolidation. Small basal effusion with associated atelectasis. discussed w rn rt RUDI DAVALOS MD Aug 13, 2021 10:31
--- NOTE | 2021-08-13 10:50 | PDOC ---
[employer] PROGRESS NOTE Date of Service DOS: DATE: 08/13/21 TIME: 10:48 Chief Complaint Chief Complaint Respiratory failure requiring mechanical ventilation Severe sepsis Possible stroke Suprapubic catheter; CHF; COPD; hypertension; pneumonia, End-stage renal disease, on dialysis; history of peritonitis dialysis as well left kidney stents; suprapubic catheter. History of Present Illness History of Present Illness 05/13/2022 Patient seen and examined in the ICU He remains on AVAPS 500/20/5 of expiratory pressure with 35% FiO2 Chart reviewed Discussed with RN Patient has TPN hanging 08/12/2021 Patient seen and examined in the ICU Chart reviewed He remains on BiPAP machine with ET tube with settings of AVAPS 35% FiO2 Discussed with RN Chart reviewed 08/11/2021 Patient seen and examined in the ICU He is on the BiPAP settings AVAPS Currently getting upper extremity ultrasound He has a superficial clot on the left. His right graft is working well Chart reviewed Discussed with RN Vent settings as AVAPS/500/20/30 5% OG clamped He remains critically ill 08/10/2021 Patient seen and examined in the ICU He remains on the vent AC/20/500/30 5% with 5 of PEEP Still off sedation but no response Has mitts on the right hand Currently getting dialysis Art line functioning well TPN hanging Discussed with RN Chart reviewed 08/09/2021 Patient seen and examined in the ICU He remains on the ventilator AC/20/500/30 5% with 5 of PEEP Has IV TPN Fentanyl is been off for a day and Versed to been off for 2 days but he still not waking up Discussed with RN Chart reviewed He remains very critically ill 08/08/2021 Patient seen and examined in the ICU He remains on the ventilator AC/20/500/30 5% with 5 of PEEP He has a mitt on the right hand Left arm with art line SCDs in place OG to suction Has TPN hanging Sedated with fentanyl Has IV Levophed and IV vasopressin hanging Chart reviewed Discussed with RN He remains extremely critically ill 08/07/2021 Patient seen and examined in the ICU He remains on the vent AC/20/500/30 5% with 5 of PEEP Has art line in place SCDs in place Has OG clamped On IV TPN Sedated with fentanyl Versed Has IV Levophed and vasopressin hanging Discussed with RN Chart reviewed He remains extremely critically ill 08/06/2021 Patient seen and examined in the ICU CT of the head showing a small stroke CT of the abdomen showing possible obstruction Discussed with RN Chart reviewed He is still intubated AC/500/1 100% with 10 of PEEP OG feeds are running but we are going to stop that and start some TPN if okay with nephrology Sedated with propofol Versed and fentanyl and paralyzed with vecuronium He remains extremely critically ill 08/05/2021 Patient seen and examined in the ICU He is currently on dialysis Discussed with RN He is still on the vent AC/500/30 5% with 5 of PEEP Has SCDs in place [place] to bedside drainage Sedated with fentanyl and Versed Has IV Levophed hanging Also on IV neomycin Also on IV vasopressin Extremely critically ill 08/04/2021 Patient seen and examined in the ICU He is mechanically ventilated AC//500/40 5% with 5 of PEEP He is extremely hypotensive 63/40 currently despite having Levophed and vasopressin Discussed with RN were going to start Michael-Synephrine Tachycardic at 117 bpm Patient is extremely cool and clammy Had a fever to 103.5 last night currently at 102.9 He is extremely critically ill Vitals/I&O Vitals/I&O: Vital Signs Date Time Temp Pulse Resp B/P (MAP) Pulse Ox O2 Delivery O2 Flow Rate FiO2 08/13/21 09:00 106 109/48 99 15.0 08/13/21 08:34 Ventilator 08/13/21 08:00 98.2 98.2 08/12/21 21:00 29 I & O 08/12/21 08/12/21 08/13/21 15:00 23:00 07:00 Intake Total 821 ml Output Total 150 ml Balance 671 ml Physical Exam Physical Exam: GENERAL: Sedated, orally intubated gentleman, not in distress. HEENT: Normocephalic atraumatic no conjunctival lesion. ETT OGT present, blood- tinged output LUNGS: Decreased breath sounds bilaterally. HEART: S1, S2 , Murmur present ABDOMEN: Soft, nontender. No organomegaly. Suprapubic catheter removed EXTREMITIES: Bilateral upper extremity edema, no cyanosis. SKIN: Blisters with ischemic changes present over left upper extremity fingers. Palpable radial pulse. AV shunt in the right upper extremity is unremarkable. Left great toe ingrown nail NEUROLOGIC: The patient cannot be judged as sedated and intubated. General: Other (Intubated) Heart: Regular rate Lungs: Crackles Abdomen: Normal bowel sounds Extremities: No edema Skin: No significant lesion Labs Labs: Laboratory Tests Test 08/13/21 05:20 08/13/21 08:20 White Blood Count 12.0 x10^3/uL (4.0-11.0) Red Blood Count 3.52 x10^6/uL (4.30-5.70) Hemoglobin 11.4 g/dL (13.0-17.5) Hematocrit 34.7 % (39.0-53.0) Mean Corpuscular Volume 99 fL (79-100) Mean Corpuscular Hemoglobin 33 pg (25-35) Mean Corpuscular Hemoglobin Concent 33 g/dL (31-37) Red Cell Distribution Width 18.2 % (11.5-14.5) Platelet Count 237 x10^3/uL (140-400) Neutrophils (%) (Auto) 71 % (31-73) Lymphocytes (%) (Auto) 11 % (24-48) Monocytes (%) (Auto) 14 % (0-9) Eosinophils (%) (Auto) 3 % (0-3) Basophils (%) (Auto) 1 % (0-3) Neutrophils # (Auto) 8.5 x10^3/uL (1.8-7.7) Lymphocytes # (Auto) 1.3 x10^3/uL (1.0-4.8) Monocytes # (Auto) 1.7 x10^3/uL (0.0-1.1) Eosinophils # (Auto) 0.4 x10^3/uL (0.0-0.7) Basophils # (Auto) 0.1 x10^3/uL (0.0-0.2) Sodium Level 144 mmol/L (136-145) Potassium Level 3.6 mmol/L (3.5-5.1) Chloride Level 107 mmol/L (98-107) Carbon Dioxide Level 23 mmol/L (21-32) Anion Gap 14 (6-14) Blood Urea Nitrogen 59 mg/dL (8-26) Creatinine 4.5 mg/dL (0.7-1.3) Estimated GFR (Cockcroft-Gault) 13.6 BUN/Creatinine Ratio 13 (6-20) Glucose Level 95 mg/dL (70-99) Calcium Level 7.2 mg/dL (8.5-10.1) Total Bilirubin 3.2 mg/dL (0.2-1.0) Aspartate Amino Transf (AST/SGOT) 70 U/L (15-37) Alanine Aminotransferase (ALT/SGPT) 47 U/L (16-63) Alkaline Phosphatase 267 U/L (46-116) Total Protein 6.7 g/dL (6.4-8.2) Albumin 1.7 g/dL (3.4-5.0) Albumin/Globulin Ratio 0.3 (1.0-1.7) O2 Saturation 99 % (92-99) Arterial Blood pH 7.48 (7.35-7.45) Arterial Blood pCO2 at Patient Temp 36 mmHg (35-46) Arterial Blood pO2 at Patient Temp 155 mmHg (75-108) Arterial Blood HCO3 26 mmol/L (21-28) Arterial Blood Base Excess 2 mmol/L (-3-3) FiO2 35 Assessment and Plan Assessmemt and Plan Problems Medical Problems: (1) Hypoxia Status: Acute (2) Respiratory failure Status: Acute (3) Sepsis Status: Acute (4) Stroke Status: Acute (5) UTI (urinary tract infection) Status: Acute Respiratory failure requiring mechanical ventilation Right frontal lobe stroke Severe sepsis Small stroke Suprapubic catheter; CHF; COPD; hypertension; pneumonia, End-stage renal disease, on dialysis; history of peritonitis dialysis as well left kidney stents; suprapubic catheter. Plan ICU monitoring Continue holding sedation Continue AVAPS with BiPAP machine via tracheostomy IV antibiotics per infectious disease Trend labs Home meds when possible Lovenox 40 mg a day for DVT prophylaxis we will continue SCDs as well Dialysis per nephrology Nutritional support with TPN He remains very critically ill Appreciate subspecialist input Prognosis extremely guarded at best as he is not responding without sedation CC time 31 minutes Comment Review of Relevant I have reviewed the following items allyson (where applicable) has been applied. Medications: Current Medications Medications (Trade) Dose Ordered Sig/Kevin Route PRN Reason Start Time Stop Time Status Last Admin Dose Admin Sodium Chloride 110 meq/Calcium Gluconate 5 meq/ Multivitamins 10 ml/Zinc/Copper/ Manganese/ Selenium 1 ml/ Total Parenteral Nutrition/Amino Acids/Dextrose/ Fat Emulsion Intravenous 1,200 ml @ 50 mls/hr TPN CONT IV 08/12/21 22:00 08/13/21 21:59 08/12/21 22:58 Justifications for Admission Other Justification SBO DEVAN NICHOLE III DO Aug 13, 2021 10:50
--- NOTE | 2021-08-13 12:20 | PDOC ---
Date of Service: DATE: 08/13/21 TIME: 12:16 Objective: Objective: D/w nurse - waking up some more, 800cc from OG last night but slower today. Vital Signs: Vital Signs Date Time Temp Pulse Resp B/P (MAP) Pulse Ox O2 Delivery O2 Flow Rate FiO2 08/13/21 11:24 99 Ventilator 08/13/21 09:00 106 109/48 15.0 08/13/21 08:00 98.2 98.2 08/12/21 21:00 29 Labs: Laboratory Tests Test 08/13/21 05:20 08/13/21 08:20 White Blood Count 12.0 x10^3/uL Red Blood Count 3.52 x10^6/uL Hemoglobin 11.4 g/dL Hematocrit 34.7 % Mean Corpuscular Volume 99 fL Mean Corpuscular Hemoglobin 33 pg Mean Corpuscular Hemoglobin Concent 33 g/dL Red Cell Distribution Width 18.2 % Platelet Count 237 x10^3/uL Neutrophils (%) (Auto) 71 % Lymphocytes (%) (Auto) 11 % Monocytes (%) (Auto) 14 % Eosinophils (%) (Auto) 3 % Basophils (%) (Auto) 1 % Neutrophils # (Auto) 8.5 x10^3/uL Lymphocytes # (Auto) 1.3 x10^3/uL Monocytes # (Auto) 1.7 x10^3/uL Eosinophils # (Auto) 0.4 x10^3/uL Basophils # (Auto) 0.1 x10^3/uL Sodium Level 144 mmol/L Potassium Level 3.6 mmol/L Chloride Level 107 mmol/L Carbon Dioxide Level 23 mmol/L Anion Gap 14 Blood Urea Nitrogen 59 mg/dL Creatinine 4.5 mg/dL Estimated GFR (Cockcroft-Gault) 13.6 BUN/Creatinine Ratio 13 Glucose Level 95 mg/dL Calcium Level 7.2 mg/dL Total Bilirubin 3.2 mg/dL Aspartate Amino Transf (AST/SGOT) 70 U/L Alanine Aminotransferase (ALT/SGPT) 47 U/L Alkaline Phosphatase 267 U/L Total Protein 6.7 g/dL Albumin 1.7 g/dL Albumin/Globulin Ratio 0.3 O2 Saturation 99 % Arterial Blood pH 7.48 Arterial Blood pCO2 at Patient Temp 36 mmHg Arterial Blood pO2 at Patient Temp 155 mmHg Arterial Blood HCO3 26 mmol/L Arterial Blood Base Excess 2 mmol/L FiO2 35 PE: GEN: intubated LUNGS: vent/clear HEART: tachycardic ABD: quiet, soft, OG canister w/ dark brown contents NEURO/PSYCH: didn't awaken for exam, did shift legs around A/P: Stroke, resp failure, sepsis, ileus Chronic anemia, abnormal LFTs (bili worse, rest better) -- Continue OG suction, TPN, PPI. Justicifation of Admission Dx: Justifications for Admission: Justification of Admission Dx: N/A ERINN HOBSON Aug 13, 2021 12:20
[2021-08-13] MEDS: TPN PER PHARMACY MC PRN (12:30)
--- NOTE | 2021-08-13 12:31 | NUR ---
Pharmacy TPN Dosing Note S: PERFECTOFELICE is a 56 year old M Currently receiving Central Continuous TPN started 08/06/21 B:Pertinent PMH: High residuals w/tube feeding Height: 5 feet, 5 inches Weight: 77.772381 kg Current diet: NPO LABS: Sodium: 144 Potassium: 3.6 Chloride: 107 Calcium: 7.2 Corrected Calcium: 9.04 Magnesium: 2.5 CO2: 23 SCr: 4.5 Glucose: 95 Albumin: 1.7 AST: 70 ALT: 47 TPN FORMULA: TPN TYPE: Central Continuous AMINO ACIDS: 90 gm DEXTROSE: 175 gm LIPIDS: 30 gm SODIUM CHLORIDE: 110 mEq CALCIUM: 5 mEq MULTIPLE VITAMIN: 10 ml TRACE ELEMENTS: 1 ml(s) TPN PLAN: Cont same electrolytes, add in Lipids for MWF dosing schedule. -CMP, Mag and Phos in AM. R: Change TPN as noted above. Will monitor electrolytes, glucose, and tolerance to TPN. J[facility], 08/13/21 [id number]
[2021-08-13] MEDS: ATORVASTATIN CALCIUM 20 MG TABLET PO SCH (20:55)
[2021-08-13] MEDS ORDERED: [UNRECOGNIZED DRUG - OTHER] IV SCH (22:00)
[2021-08-13] MEDS ORDERED: AMINO ACID IV SCH (22:00)
[2021-08-13] MEDS ORDERED: TOTAL PARENTERAL NUTRITION IV SCH (22:00)
[2021-08-13] MEDS ORDERED: DEXTROSE 70% IV SCH (22:00)
[2021-08-14] VITALS (24 sets, daily range): BP systolic 94–163; BP diastolic 41–79
[2021-08-14] MEDS: NAFCILLIN 2 GM in IV DEXTROSE 5% 100ML 100 ML IV SCH ×6 (00:50→19:53)
[2021-08-14] MEDS ORDERED: IV NORMAL SALINE 1000ML BAG 1,000 ML IV PRN ×2 (07:30)
[2021-08-14] MEDS ORDERED: DIALYSIS PATIENT. MC PRN (07:30)
[2021-08-14] MEDS: ASPIRIN CHEWABLE 81 MG TABLET. PO SCH (08:00)
[2021-08-14] MEDS: PANTOPRAZOLE IV PUSH 40 MG VIAL. IVP SCH (08:06)
[2021-08-14 08:47] LABS: ALBUMIN 1.8 g/dL (3.4-5.0); ALBUMIN/GLOBULIN RATIO 0.3 (1.0-1.7); CALCIUM 8.5 mg/dL (8.5-10.1); CREATININE 7.4 mg/dL (0.7-1.3); GFR 7.6; MAGNESIUM 2.6 mg/dL (1.8-2.4); PHOSPHORUS 7.8 mg/dL (2.6-4.7); POTASSIUM 3.9 mmol/L (3.5-5.1); TOTAL BILIRUBIN 4.8 mg/dL (0.2-1.0); TOTAL PROTEIN 7.7 g/dL (6.4-8.2)
[2021-08-14] MEDS: HEPARIN for SUB-Q USE 5,000 UNIT/ML VIAL. SQ SCH ×2 (09:00→19:54)
--- NOTE | 2021-08-14 10:58 | PDOC ---
PULMONARY PROGRESS NOTES DATE: 08/14/21 TIME: 10:56 Subjective Patient not responsive He is off sedation Currently on AVAPS mode due to shortage of ventilators in the hospital. 35% FiO2 5 Upper extremity swelling Vitals Vital Signs Date Time Temp Pulse Resp B/P (MAP) Pulse Ox O2 Delivery O2 Flow Rate FiO2 08/14/21 08:00 Mechanical Ventilator 08/14/21 07:00 104 31 125/79 99 08/14/21 04:00 99.0 99.0 08/13/21 09:00 15.0 Comments on vent sedated ros unable to obtain HEENT: Other (nc at perrl nose clear orally intubated neck no lad no thyromegaly) Lungs: Crackles Cardiovascular: S1, S2 Abdomen: Soft, Non-tender Extremities: No Edema Skin: No Rashes Labs Laboratory Tests Test 08/13/21 05:20 08/13/21 08:20 08/14/21 01:05 08/14/21 08:00 White Blood Count 12.0 x10^3/uL (4.0-11.0) Red Blood Count 3.52 x10^6/uL (4.30-5.70) Hemoglobin 11.4 g/dL (13.0-17.5) Hematocrit 34.7 % (39.0-53.0) Mean Corpuscular Volume 99 fL (79-100) Mean Corpuscular Hemoglobin 33 pg (25-35) Mean Corpuscular Hemoglobin Concent 33 g/dL (31-37) Red Cell Distribution Width 18.2 % (11.5-14.5) Platelet Count 237 x10^3/uL (140-400) Neutrophils (%) (Auto) 71 % (31-73) Lymphocytes (%) (Auto) 11 % (24-48) Monocytes (%) (Auto) 14 % (0-9) Eosinophils (%) (Auto) 3 % (0-3) Basophils (%) (Auto) 1 % (0-3) Neutrophils # (Auto) 8.5 x10^3/uL (1.8-7.7) Lymphocytes # (Auto) 1.3 x10^3/uL (1.0-4.8) Monocytes # (Auto) 1.7 x10^3/uL (0.0-1.1) Eosinophils # (Auto) 0.4 x10^3/uL (0.0-0.7) Basophils # (Auto) 0.1 x10^3/uL (0.0-0.2) Sodium Level 144 mmol/L (136-145) 138 mmol/L (136-145) Potassium Level 3.6 mmol/L (3.5-5.1) 3.9 mmol/L (3.5-5.1) Chloride Level 107 mmol/L (98-107) 97 mmol/L (98-107) Carbon Dioxide Level 23 mmol/L (21-32) 25 mmol/L (21-32) Anion Gap 14 (6-14) 16 (6-14) Blood Urea Nitrogen 59 mg/dL (8-26) 90 mg/dL (8-26) Creatinine 4.5 mg/dL (0.7-1.3) 7.4 mg/dL (0.7-1.3) Estimated GFR (Cockcroft-Gault) 13.6 7.6 BUN/Creatinine Ratio 13 (6-20) 12 (6-20) Glucose Level 95 mg/dL (70-99) 111 mg/dL (70-99) Calcium Level 7.2 mg/dL (8.5-10.1) 8.5 mg/dL (8.5-10.1) Total Bilirubin 3.2 mg/dL (0.2-1.0) 4.8 mg/dL (0.2-1.0) Aspartate Amino Transf (AST/SGOT) 70 U/L (15-37) 71 U/L (15-37) Alanine Aminotransferase (ALT/SGPT) 47 U/L (16-63) 44 U/L (16-63) Alkaline Phosphatase 267 U/L (46-116) 242 U/L (46-116) Total Protein 6.7 g/dL (6.4-8.2) 7.7 g/dL (6.4-8.2) Albumin 1.7 g/dL (3.4-5.0) 1.8 g/dL (3.4-5.0) Albumin/Globulin Ratio 0.3 (1.0-1.7) 0.3 (1.0-1.7) O2 Saturation 99 % (92-99) Arterial Blood pH 7.48 (7.35-7.45) Arterial Blood pCO2 at Patient Temp 36 mmHg (35-46) Arterial Blood pO2 at Patient Temp 155 mmHg (75-108) Arterial Blood HCO3 26 mmol/L (21-28) Arterial Blood Base Excess 2 mmol/L (-3-3) FiO2 35 Glucose (Fingerstick) 108 mg/dL (70-99) Phosphorus Level 7.8 mg/dL (2.6-4.7) Magnesium Level 2.6 mg/dL (1.8-2.4) Laboratory Tests Test 08/14/21 01:05 08/14/21 08:00 Glucose (Fingerstick) 108 mg/dL (70-99) Sodium Level 138 mmol/L (136-145) Potassium Level 3.9 mmol/L (3.5-5.1) Chloride Level 97 mmol/L (98-107) Carbon Dioxide Level 25 mmol/L (21-32) Anion Gap 16 (6-14) Blood Urea Nitrogen 90 mg/dL (8-26) Creatinine 7.4 mg/dL (0.7-1.3) Estimated GFR (Cockcroft-Gault) 7.6 BUN/Creatinine Ratio 12 (6-20) Glucose Level 111 mg/dL (70-99) Calcium Level 8.5 mg/dL (8.5-10.1) Phosphorus Level 7.8 mg/dL (2.6-4.7) Magnesium Level 2.6 mg/dL (1.8-2.4) Total Bilirubin 4.8 mg/dL (0.2-1.0) Aspartate Amino Transf (AST/SGOT) 71 U/L (15-37) Alanine Aminotransferase (ALT/SGPT) 44 U/L (16-63) Alkaline Phosphatase 242 U/L (46-116) Total Protein 7.7 g/dL (6.4-8.2) Albumin 1.8 g/dL (3.4-5.0) Albumin/Globulin Ratio 0.3 (1.0-1.7) Medications Active Scripts Medications Dose Route/Sig Max Daily Dose Days Date Category Tums (Calcium Carbonate) 200 Mg Tab.chew 400 Mg PO HS 04/19/21 Reported Sensipar (Cinacalcet Hcl) 60 Mg Tablet 1 Tab PO DAILY 30 04/19/21 Reported Ferric Citrate 210 Mg Tablet 2 Tab PO TID 30 04/19/21 Reported Lasix (Furosemide) 40 Mg Tablet 40 Mg PO BID 04/19/21 Reported Renagel (Sevelamer Hcl) 800 Mg Tablet 2 Tab PO TIDWMEALS 01/18/21 Reported Kapspargo Sprinkle (Metoprolol Succinate) 50 Mg Cap.spr.24 50 Mg PO DAILY 01/18/21 Reported Comments Chest x-ray reviewed dated 08/09/2021. Faint bilateral infiltrates CT chest reviewed dated 08/06/2021. Small basal pleural effusion with associated atelectasis. No definite consolidation seen Impression . IMPRESSION: 1. Acute hypoxemic respiratory failure, multifactorial. 2. Septic shock./Urosepsis 3. Fever related to above. 4. SARS-CoV-2 testing negative. 5. End-stage renal disease, on hemodialysis. 6. Possible stroke. 7. MSSA bactremia 8. Encephalopathy. Off sedation but still nonresponsive. Could be related to stroke. 9. Suspected ischemic stroke Other comorbidities including end-stage renal disease, hypertension, chronic obstructive pulmonary disease, gastroesophageal reflux, ischemic cardiomyopathy. 10. Upper extremity swelling. Venous Dopplers with no DVT but only superficial phlebitis. Arterial Dopplers with proximal stenosis of ulnar and radial Plan . Updated 08/14 Continue vent support assist-control mode. setting reviewed CT head with no new stroke.remains encephalopathic repeat bcx neg abx per id vasopressor to keep map 65 complicated urinary tract infection with septic shock. mssa bactremia Follow ID recommendations Hemodialysis per nephrology Follow blood cultures DVT GI prophylaxis CT chest reviewed. No focal consolidation. Small basal effusion with associated atelectasis. discussed w rn rt Off sedation for 72 hours. Patient still not responsive Venous Dopplers of upper extremities reviewed. Arterial Doppler results reviewed as well. Follow-up vascular surgery recommendations will reach out to mother about advance directives Discussed with RN and RT Updated 08/12 Continue vent support assist-control mode. setting reviewed CT head with no new stroke. repeat bcx neg abx per id vasopressor to keep map 65 complicated urinary tract infection with septic shock. mssa bactremia Follow ID recommendations Hemodialysis per nephrology Follow blood cultures DVT GI prophylaxis CT chest reviewed. No focal consolidation. Small basal effusion with associated atelectasis. discussed w rn rt Off sedation for 72 hours. Patient still not responsive Venous Dopplers of upper extremities reviewed. Arterial Doppler results revi ewed as well. Follow-up vascular surgery recommendations We will discontinue Trental completely and let him wake up for a CPAP trial. Discussed with RN and RT Updated 08/11 Continue vent support assist-control mode. setting reviewed no weaning. CT head with no new stroke. repeat bcx neg abx per id vasopressor to keep map 65 complicated urinary tract infection with septic shock. mssa bactremia Follow ID recommendations Hemodialysis per nephrology Follow blood cultures DVT GI prophylaxis CT chest reviewed. No focal consolidation. Small basal effusion with associated atelectasis. discussed w rn rt Off sedation for 72 hours. Patient still not responsive Venous Dopplers of upper extremities ordered. Discussed with RN and RT Updated 08/10 Continue vent support assist-control mode. setting reviewed no weaning. CT head today to rule out ischemic stroke. repeat bcx neg abx per id vasopressor to keep map 65 complicated urinary tract infection with septic shock. mssa bactremia Follow ID recommendations Hemodialysis per nephrology Follow blood cultures DVT GI prophylaxis CT chest reviewed. No focal consolidation. Small basal effusion with associated atelectasis. discussed w rn rt Off sedation for 72 hours. Patient still not responsive Discussed with RN and RT Updated 08/09 Continue vent support assist-control mode. setting reviewed repeat bcx neg abx per id vasopressor to keep map 65 complicated urinary tract infection with septic shock. mssa bactremia Follow ID recommendations Hemodialysis per nephrology Follow blood cultures DVT GI prophylaxis CT chest reviewed. No focal consolidation. Small basal effusion with associat ed atelectasis. discussed w rn rt Off sedation for 48 hours. If there is not wake up in the next few days, may need an MRI. Discussed with RN and RT Updated 08/08 Continue vent support assist-control mode. setting reviewed repeat bcx neg abx per id vasopressor to keep map 65 complicated urinary tract infection with septic shock. mssa bactremia Follow ID recommendations Hemodialysis per nephrology Follow blood cultures DVT GI prophylaxis CT chest reviewed. No focal consolidation. Small basal effusion with associated atelectasis. discussed w rn rt RUDI DAVALOS MD Aug 14, 2021 10:58
--- NOTE | 2021-08-14 11:06 | PDOC ---
Infectious Disease Note Subjective: Subjective Patient is intubated sedated Undergoing dialysis Discussed with RN Vital Signs: Vital Signs Vital Signs Date Time Temp Pulse Resp B/P (MAP) Pulse Ox O2 Delivery O2 Flow Rate FiO2 08/14/21 11:00 97 27 122/70 99 Ventilator 08/14/21 08:00 98.3 98.3 08/13/21 09:00 15.0 Physical Exam: PHYSICAL EXAM GENERAL: Sedated, orally intubated gentleman, HEENT: Normocephalic atraumatic no conjunctival lesion. ETT OGT present, blood-tinged output LUNGS: Decreased breath sounds bilaterally. HEART: S1, S2 , Murmur present ABDOMEN: Soft, nontender. No organomegaly. Suprapubic catheter removed EXTREMITIES: Bilateral upper extremity edema, no cyanosis. SKIN: Blisters with ischemic changes present over left fingers. Hemorrhagic blister over the dorsum of left fourth finger, good palpable radial pulse. AV shunt in the right upper extremity is unremarkable.Left great toe ingrown nail, not infected NEUROLOGIC: Intubated, making spontaneous movements of right upper and lower extremity Medications: Inpatient Meds: Medications reviewed. Labs: Lab Laboratory Tests Test 08/14/21 01:05 08/14/21 08:00 Glucose (Fingerstick) 108 mg/dL (70-99) Sodium Level 138 mmol/L (136-145) Potassium Level 3.9 mmol/L (3.5-5.1) Chloride Level 97 mmol/L (98-107) Carbon Dioxide Level 25 mmol/L (21-32) Anion Gap 16 (6-14) Blood Urea Nitrogen 90 mg/dL (8-26) Creatinine 7.4 mg/dL (0.7-1.3) Estimated GFR (Cockcroft-Gault) 7.6 BUN/Creatinine Ratio 12 (6-20) Glucose Level 111 mg/dL (70-99) Calcium Level 8.5 mg/dL (8.5-10.1) Phosphorus Level 7.8 mg/dL (2.6-4.7) Magnesium Level 2.6 mg/dL (1.8-2.4) Total Bilirubin 4.8 mg/dL (0.2-1.0) Aspartate Amino Transf (AST/SGOT) 71 U/L (15-37) Alanine Aminotransferase (ALT/SGPT) 44 U/L (16-63) Alkaline Phosphatase 242 U/L (46-116) Total Protein 7.7 g/dL (6.4-8.2) Albumin 1.8 g/dL (3.4-5.0) Albumin/Globulin Ratio 0.3 (1.0-1.7) Objective: Assessment: MSSA Bacteremia 08/03/2021 ECHO 08/11 Moderate Repeat BC neg from 08/[address] head with frontoparietal infarct Encephalopathy. Fever. Improved Complicated urinary tract infection with sepsis. Hypotension. Improved Acute Respiratory failure, requiring intubation. End-stage renal disease, on hemodialysis. Congestive heart failure. History of hypertension. Leukocytosis likely reactive from GI bleed Suprapubic catheter removed Left upper extremity blisters, ischemic changes, has good radial pulse Superficial venous thrombosis Plan: Plan of Care Leukocytosis likely reactive from GI bleed Lt upper ext Arterial line has been removed Cont nafcillin,was on Zosyn Venous ultrasound bilateral upper extremity neg for DVT,has sup venous thrombosis Arterial ultrasound for left upper extremity reviewed ,may need vascular consult 2 D Echo reviewed has ,, cardiology is following,will need RADHA when able Supportive care Follow repeat blood cultures negative from August 06, [address] chest abd and pelvis noted Repeat CT head noted Local skin care Critically ill Discussed with BRYSON GARCES MD Aug 14, 2021 11:06
--- NOTE | 2021-08-14 11:11 | PDOC ---
CARDIOLOGY PROGRESS NOTE SUBJECTIVE: Oleg Dowling is a 56 yo M admitted for acute neurovascular event on 08/05. He has a history of tachybrady s/p leadless pacemaker, CHF, moderate/severe and ESRD. Nursing reports no acute events overnight with increased oral bleeding. No blood found on suctioning but OG is blood tinged. Dialysis currently running during rounds. Patient remains unresponsive. OBJECTIVE: Vital Signs/I&O: Vital Signs Date Time Temp Pulse Resp B/P (MAP) Pulse Ox O2 Delivery O2 Flow Rate FiO2 08/14/21 10:00 98 27 109/50 99 Ventilator 08/14/21 08:00 98.3 98.3 08/13/21 09:00 15.0 I & O 08/13/21 08/13/21 08/14/21 15:00 23:00 07:00 Intake Total 848 ml 200 ml Output Total 400 ml 0 ml Balance 448 ml 200 ml Objective: General: Patient is verbally unresponsive, lying supine and moving RLE. HEENT: Dried blood in both nares, mild active oral bleeding. Heart: RRR, moderate/severe aortic stenosis Lung: Deferred 2/2 vent Extremities: +2 pulses BUE and BLE. BUE edema. CURRENT MEDICATIONS: Current Medications Medications (Trade) Dose Ordered Sig/Kevin Route PRN Reason Start Time Stop Time Status Last Admin Dose Admin Sodium Chloride 110 meq/Calcium Gluconate 5 meq/ Multivitamins 10 ml/Zinc/Copper/ Manganese/ Selenium 1 ml/ Total Parenteral Nutrition/Amino Acids/Dextrose/ Fat Emulsion Intravenous 1,200 ml @ 50 mls/hr TPN CONT IV 08/13/21 22:00 08/14/21 21:59 08/13/21 21:48 DIAGNOSTIC TESTING: Labs: Laboratory Tests 08/14/21 08:00 Laboratory Tests Test 08/14/21 01:05 08/14/21 08:00 Glucose (Fingerstick) 108 mg/dL (70-99) H Sodium Level 138 mmol/L (136-145) Potassium Level 3.9 mmol/L (3.5-5.1) Chloride Level 97 mmol/L (98-107) L Carbon Dioxide Level 25 mmol/L (21-32) Anion Gap 16 (6-14) H Blood Urea Nitrogen 90 mg/dL (8-26) H Creatinine 7.4 mg/dL (0.7-1.3) H Estimated GFR (Cockcroft-Gault) 7.6 BUN/Creatinine Ratio 12 (6-20) Glucose Level 111 mg/dL (70-99) H Calcium Level 8.5 mg/dL (8.5-10.1) Phosphorus Level 7.8 mg/dL (2.6-4.7) H Total Bilirubin 4.8 mg/dL (0.2-1.0) H Aspartate Amino Transf (AST/SGOT) 71 U/L (15-37) H Alkaline Phosphatase 242 U/L (46-116) H Total Protein 7.7 g/dL (6.4-8.2) Albumin 1.8 g/dL (3.4-5.0) L Albumin/Globulin Ratio 0.3 (1.0-1.7) L ASSESSMENT: 1. Stroke 2. Tachybrady 3. CHF 4. Moderate/severe Aortic Stenosis 5. ESRD 6. Respiratory failure 7. CVA 8. 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 Continue HD. 2. Await family decision regarding goals of care. I had an extensive conversation about the patient's CV status with his sister and mother. 3. He is having oral bleeding, hold ASA and Heparin for now. 4. Left hemiplegia, tx per neurology service. 5. Defer tx of severe to outpatient. Thanks 6. No acute indication for angiogram of the left upper extremity. Patient has probable radial artery occlusion but has preserved ulnar flow by doppler exam and excellent brachial artery flow. Supportive care. Justicifation of Admission Dx: Justifications for Admission: Justification of Admission Dx: N/A MARIANN TIRADO MD Aug 14, 2021 11:11
--- NOTE | 2021-08-14 11:18 | PDOC ---
Dialysis Progress Note Date of Service: DATE: 08/14/21 TIME: 11:16 Dialysis Note Dialysis Note Seen on Hemodialysis, tolerating treatment Okay so far Vitals on Hemodialysis: Blood pressure 122/50 heart rate 98 afebrile General Appearance: Sedated intubated on the ventilator Neck: No JVD or JVP Chest: CTA Nathaniel Heart: S1 S2, systolic murmur Abdomen - Soft NTND Extremities - +1 Edema ESRD: Dialysis as below F 180 NR 3.0 Hrs 3 K 2.5 Ca 140 Na 35 HC03 Qb 350 + Qd 500+ Heparin 0 Units Uf 1-2 Kgs or to dry weight as tolerated May give 25-50 gms of 25% Albumin if needed to maintain Hemodynamic stability Treatment plan reviewed and discussed with hand assembler for puller over Vitals Vital Signs Vital Signs Date Time Temp Pulse Resp B/P (MAP) Pulse Ox O2 Delivery O2 Flow Rate FiO2 08/14/21 11:00 97 27 122/70 99 Ventilator 08/14/21 08:00 98.3 98.3 08/13/21 09:00 15.0 Labs Last Labs Laboratory Tests Test 08/13/21 05:20 08/13/21 08:20 08/14/21 01:05 08/14/21 08:00 White Blood Count 12.0 x10^3/uL (4.0-11.0) Red Blood Count 3.52 x10^6/uL (4.30-5.70) Hemoglobin 11.4 g/dL (13.0-17.5) Hematocrit 34.7 % (39.0-53.0) Mean Corpuscular Volume 99 fL (79-100) Mean Corpuscular Hemoglobin 33 pg (25-35) Mean Corpuscular Hemoglobin Concent 33 g/dL (31-37) Red Cell Distribution Width 18.2 % (11.5-14.5) Platelet Count 237 x10^3/uL (140-400) Neutrophils (%) (Auto) 71 % (31-73) Lymphocytes (%) (Auto) 11 % (24-48) Monocytes (%) (Auto) 14 % (0-9) Eosinophils (%) (Auto) 3 % (0-3) Basophils (%) (Auto) 1 % (0-3) Neutrophils # (Auto) 8.5 x10^3/uL (1.8-7.7) Lymphocytes # (Auto) 1.3 x10^3/uL (1.0-4.8) Monocytes # (Auto) 1.7 x10^3/uL (0.0-1.1) Eosinophils # (Auto) 0.4 x10^3/uL (0.0-0.7) Basophils # (Auto) 0.1 x10^3/uL (0.0-0.2) Sodium Level 144 mmol/L (136-145) 138 mmol/L (136-145) Potassium Level 3.6 mmol/L (3.5-5.1) 3.9 mmol/L (3.5-5.1) Chloride Level 107 mmol/L (98-107) 97 mmol/L (98-107) Carbon Dioxide Level 23 mmol/L (21-32) 25 mmol/L (21-32) Anion Gap 14 (6-14) 16 (6-14) Blood Urea Nitrogen 59 mg/dL (8-26) 90 mg/dL (8-26) Creatinine 4.5 mg/dL (0.7-1.3) 7.4 mg/dL (0.7-1.3) Estimated GFR (Cockcroft-Gault) 13.6 7.6 BUN/Creatinine Ratio 13 (6-20) 12 (6-20) Glucose Level 95 mg/dL (70-99) 111 mg/dL (70-99) Calcium Level 7.2 mg/dL (8.5-10.1) 8.5 mg/dL (8.5-10.1) Total Bilirubin 3.2 mg/dL (0.2-1.0) 4.8 mg/dL (0.2-1.0) Aspartate Amino Transf (AST/SGOT) 70 U/L (15-37) 71 U/L (15-37) Alanine Aminotransferase (ALT/SGPT) 47 U/L (16-63) 44 U/L (16-63) Alkaline Phosphatase 267 U/L (46-116) 242 U/L (46-116) Total Protein 6.7 g/dL (6.4-8.2) 7.7 g/dL (6.4-8.2) Albumin 1.7 g/dL (3.4-5.0) 1.8 g/dL (3.4-5.0) Albumin/Globulin Ratio 0.3 (1.0-1.7) 0.3 (1.0-1.7) O2 Saturation 99 % (92-99) Arterial Blood pH 7.48 (7.35-7.45) Arterial Blood pCO2 at Patient Temp 36 mmHg (35-46) Arterial Blood pO2 at Patient Temp 155 mmHg (75-108) Arterial Blood HCO3 26 mmol/L (21-28) Arterial Blood Base Excess 2 mmol/L (-3-3) FiO2 35 Glucose (Fingerstick) 108 mg/dL (70-99) Phosphorus Level 7.8 mg/dL (2.6-4.7) Magnesium Level 2.6 mg/dL (1.8-2.4) Laboratory Tests Test 08/14/21 01:05 08/14/21 08:00 Glucose (Fingerstick) 108 mg/dL (70-99) Sodium Level 138 mmol/L (136-145) Potassium Level 3.9 mmol/L (3.5-5.1) Chloride Level 97 mmol/L (98-107) Carbon Dioxide Level 25 mmol/L (21-32) Anion Gap 16 (6-14) Blood Urea Nitrogen 90 mg/dL (8-26) Creatinine 7.4 mg/dL (0.7-1.3) Estimated GFR (Cockcroft-Gault) 7.6 BUN/Creatinine Ratio 12 (6-20) Glucose Level 111 mg/dL (70-99) Calcium Level 8.5 mg/dL (8.5-10.1) Phosphorus Level 7.8 mg/dL (2.6-4.7) Magnesium Level 2.6 mg/dL (1.8-2.4) Total Bilirubin 4.8 mg/dL (0.2-1.0) Aspartate Amino Transf (AST/SGOT) 71 U/L (15-37) Alanine Aminotransferase (ALT/SGPT) 44 U/L (16-63) Alkaline Phosphatase 242 U/L (46-116) Total Protein 7.7 g/dL (6.4-8.2) Albumin 1.8 g/dL (3.4-5.0) Albumin/Globulin Ratio 0.3 (1.0-1.7) Assessment Assessment Problems Medical Problems: (1) Hypoxia Status: Acute (2) Respiratory failure Status: Acute (3) Sepsis Status: Acute (4) Stroke Status: Acute (5) UTI (urinary tract infection) Status: Acute Plan Plan of Care Problems Medical Problems: (1) Hypoxia Status: Acute (2) Respiratory failure Status: Acute (3) Sepsis Status: Acute (4) Stroke Status: Acute (5) UTI (urinary tract infection) Status: Acute MITCH VALERIO MD Aug 14, 2021 11:18
--- NOTE | 2021-08-14 11:36 | PDOC ---
GENERAL General: Patient examined chart reviewed today's hospital day 12 for this patient with complex extensive multi morbidity admitted with acute hypoxic respiratory failure after right frontoparietal stroke also found to have MSSA bacteremia. He has a history of end-stage renal disease hemodialysis dependent, pacemaker, severe aortic stenosis, and is very frail and debilitated. He has not had meaningful neurologic recovery is on minimal sedation at this point appreciate subspecialty support. Infectious diseases, nephrology, critical care, and cardiology guiding management. He has very significant swelling in that left upper extremity with superficial thrombophlebitis. Time spent today is 30 minutes with greater than 50% in counseling and coordination of care most of which in extensive review of medical records regarding care plan and progress. Problems: (1) ESRD (end stage renal disease) on dialysis (2) Respiratory failure (3) Sepsis (4) Stroke VITAL SIGNS Vital Signs/I&O: Vital Signs Date Time Temp Pulse Resp B/P (MAP) Pulse Ox O2 Delivery O2 Flow Rate FiO2 08/14/21 11:00 97 27 122/70 99 Ventilator 08/14/21 08:00 98.3 98.3 08/13/21 09:00 15.0 l I & O 08/13/21 08/13/21 08/14/21 15:00 23:00 07:00 Intake Total 848 ml 200 ml Output Total 400 ml 0 ml Balance 448 ml 200 ml Patient is intubated and does not have any meaningful response on the ventilator. He does react to pain HEENT exam is notable for bleeding around his endotracheal tube Neck is soft and supple no adenopathy or thyromegaly noted Chest bilateral equal air entry though diminished throughout no crackles or wheezes are noted Heart S1-S2 normal regular rate and rhythm no murmurs or gallops noted Abdomen soft nontender nondistended no masses organomegaly noted Extremity exam is notable for significant edema with blistering of his left upper extremity likely from the anasarca. Pulses are palpable. ALLERGIES Allergies: Allergies Coded Allergies Type Severity Reaction Last Updated Verified No Known Drug Allergies 02/17/21 No MEDS Medications: Current Medications Medications (Trade) Dose Ordered Sig/Kevin Start Time Stop Time Status Last Admin Dose Admin Acetaminophen (Children'S Tylenol) 160 mg PRN Q6HRS PRN 08/09/21 20:30 UNV Acetaminophen (Tylenol Supp) 650 mg PRN Q6HRS PRN 08/03/21 20:45 08/04/21 20:25 Acetaminophen (Tylenol) 650 mg PRN Q6HRS PRN 08/03/21 20:45 Albumin Human 200 ml @ 200 mls/hr 1X PRN PRN 08/12/21 12:45 08/12/21 18:44 DC Aspirin (Aspirin Chewable) 81 mg [id number] 08/06/21 11:45 08/13/21 09:00 Atorvastatin Calcium (Lipitor) 20 mg QHS 08/06/21 21:00 08/13/21 20:55 Atropine Sulfate (ATROPINE 0.5mg SYRINGE) 0.5 mg PRN Q5MIN PRN 08/03/21 15:00 Chlorhexidine Gluconate (Peridex) 15 ml BID 08/03/21 21:00 08/04/21 19:49 DC Ciprofloxacin/ Dextrose 200 ml @ 200 mls/hr DAILY 08/04/21 09:00 08/05/21 09:18 DC 08/04/21 11:38 Dexmedetomidine HCl 400 mcg/ Sodium Chloride 100 ml @ 3.725 mls/ hr CONT PRN 08/03/21 15:00 08/10/21 11:12 Dextrose (Dextrose 50%-Water Syringe) 12.5 gm PRN Q15MIN PRN 08/05/21 13:00 08/06/21 17:47 Etomidate (Amidate) 20 mg STK-MED ONCE 08/03/21 17:04 08/03/21 17:04 DC Famotidine (Pepcid Vial) 20 mg QODAY 08/04/21 09:00 08/06/21 14:25 DC 08/06/21 09:08 Fentanyl Citrate 30 ml @ 2.5 mls/hr CONT PRN 08/03/21 15:00 08/12/21 08:23 Glycerin/ Hypromellose/ Polyethylene (Artificial Tears) 1 drop PRN Q1HR PRN 08/03/21 15:00 Heparin Sodium (Porcine) (Heparin Sodium) 5,000 unit Q12HR 08/05/21 11:00 08/13/21 20:56 Info (CONTRAST GIVEN -- Rx MONITORING) 1 each PRN DAILY PRN 08/06/21 09:45 08/08/21 09:44 DC Info (PHARMACY MONITORING -- do not chart) 1 each PRN DAILY PRN 08/14/21 07:30 Info (Tpn Per Pharmacy) 1 each PRN DAILY PRN 08/06/21 12:30 08/13/21 12:30 Iohexol (Omnipaque 240 Mg/ml) 50 ml STK-MED ONCE 08/04/21 12:36 08/04/21 12:36 DC Iohexol (Omnipaque 300 Mg/ml) 60 ml 1X ONCE 08/06/21 09:30 08/06/21 09:31 DC 08/06/21 09:30 Lidocaine HCl (Buffered Lidocaine 1%) 3 ml 1X ONCE 08/04/21 13:30 08/04/21 13:31 DC 08/04/21 13:15 Lidocaine HCl (Xylocaine-Mpf 1% 5ml Vial) 5 ml 1X ONCE 08/04/21 09:30 08/04/21 09:31 DC Magnesium Sulfate 50 ml @ 25 mls/hr 1X ONCE 08/05/21 16:30 08/05/21 18:29 DC 08/05/21 16:59 Midazolam HCl (Versed) 5 mg PRN 1X PRN 08/03/21 15:00 08/04/21 14:59 DC Nafcillin Sodium 2 gm/Dextrose 100 ml @ 200 mls/hr Q4HRS 08/11/21 12:00 08/14/21 08:06 Norepinephrine Bitartrate 32 mg/ Dextrose 250 ml @ 3.492 mls/ hr CONT PRN 08/04/21 05:30 08/10/21 13:30 Norepinephrine Bitartrate 8 mg/ Dextrose 258 ml @ 14.416 mls/ hr CONT PRN 08/03/21 15:00 08/04/21 05:29 DC 08/04/21 03:52 Pantoprazole Sodium (PROTONIX VIAL for IV PUSH) 40 mg DAILYAC 08/06/21 15:00 08/14/21 08:06 Phenylephrine HCl 50 mg/Sodium Chloride 255 ml @ 11.399 mls/ hr CONT PRN 08/04/21 06:30 08/05/21 05:38 Piperacillin Sod/ Tazobactam Sod 2.25 gm/Sodium Chloride 50 ml @ 100 mls/hr Q6HRS 08/04/21 12:00 UNV Piperacillin Sod/ Tazobactam Sod 4.5 gm/Sodium Chloride 100 ml @ 200 mls/hr 1X ONCE 08/03/21 11:15 08/03/21 11:44 DC 08/03/21 11:26 Propofol 100 ml @ 2.235 mls/ hr CONT PRN 08/03/21 15:00 Rocuronium Millsap (Zemuron) 50 mg STK-MED ONCE 08/03/21 17:04 08/03/21 17:04 DC Sodium Chloride 1,000 ml @ 400 mls/hr Q2H30M PRN 08/14/21 07:30 08/14/21 19:29 Sodium Chloride (Normal Saline Flush) 10 ml 1X PRN PRN 08/07/21 05:30 08/08/21 05:29 DC Sodium Chloride 90 meq/Potassium Chloride 20 meq/ Calcium Gluconate 10 meq/ Multivitamins 10 ml/Zinc/Copper/ Manganese/ Selenium 1 ml/ Total Parenteral Nutrition/Amino Acids/Dextrose 1,200 ml @ 50 mls/hr TPN CONT 08/07/21 22:00 08/08/21 21:59 DC 08/07/21 21:26 Sodium Chloride 90 meq/Potassium Chloride 20 meq/ Calcium Gluconate 10 meq/ Multivitamins 10 ml/Zinc/Copper/ Manganese/ Selenium 1 ml/ Total Parenteral Nutrition/Amino Acids/Dextrose/ Fat Emulsion Intravenous 1,200 ml @ 50 mls/hr TPN CONT 08/06/21 22:00 08/07/21 21:59 DC 08/06/21 21:58 Sodium Chloride 110 meq/Calcium Gluconate 5 meq/ Multivitamins 10 ml/Zinc/Copper/ Manganese/ Selenium 1 ml/ Total Parenteral Nutrition/Amino Acids/Dextrose/ Fat Emulsion Intravenous 1,200 ml @ 50 mls/hr TPN CONT 08/13/21 22:00 08/14/21 21:59 08/13/21 21:48 Sodium Chloride 110 meq/Potassium Chloride 20 meq/ Calcium Gluconate 10 meq/ Multivitamins 10 ml/Zinc/Copper/ Manganese/ Selenium 1 ml/ Total Parenteral Nutrition/Amino Acids/Dextrose 1,200 ml @ 50 mls/hr TPN CONT 08/08/21 22:00 08/09/21 21:59 DC 08/08/21 22:09 Sodium Chloride 110 meq/Potassium Chloride 20 meq/ Potassium Phosphate 6 mmol/ Calcium Gluconate 5 meq/ Multivitamins 10 ml/Zinc/Copper/ Manganese/ Selenium 1 ml/ Total Parenteral Nutrition/Amino Acids/Dextrose/ Fat Emulsion Intravenous 1,200 ml @ 50 mls/hr TPN CONT 08/11/21 22:00 08/12/21 22:00 DC 08/11/21 22:46 Sodium Phosphate 15 mmol/Sodium Chloride 105 ml @ 105 mls/hr 1X ONCE 08/08/21 14:00 08/08/21 14:59 DC 08/08/21 15:22 Vancomycin HCl (Vanco Per Pharmacy) 1 each PRN DAILY PRN 08/04/21 08:00 UNV Vancomycin HCl (Vancomycin Random Level) 1 each 1X ONCE 08/05/21 06:00 08/05/21 06:01 DC 08/05/21 06:14 Vancomycin HCl 1.5 gm/Sodium Chloride 500 ml @ 250 mls/hr 1X ONCE 08/03/21 12:00 08/03/21 13:59 DC 08/03/21 12:00 Vancomycin HCl 500 mg/Sodium Chloride 100 ml @ 100 mls/hr QTUTHSA 08/05/21 16:00 08/07/21 09:38 DC 08/05/21 15:59 Vasopressin 20 unit/Dextrose 101 ml @ 12 mls/hr CONT PRN 08/04/21 03:45 08/08/21 22:04 Vecuronium Millsap (Norcuron Bolus) 6 mg PRN 1X PRN 08/03/21 15:00 08/04/21 14:59 DC Current Medications Medications (Trade) Dose Ordered Sig/Kevin Route PRN Reason Start Time Stop Time Status Last Admin Dose Admin Sodium Chloride 110 meq/Calcium Gluconate 5 meq/ Multivitamins 10 ml/Zinc/Copper/ Manganese/ Selenium 1 ml/ Total Parenteral Nutrition/Amino Acids/Dextrose/ Fat Emulsion Intravenous 1,200 ml @ 50 mls/hr TPN CONT IV 08/13/21 22:00 08/14/21 21:59 08/13/21 21:48 LAB Lab: Laboratory Tests Test 08/14/21 01:05 08/14/21 08:00 Glucose (Fingerstick) 108 mg/dL (70-99) H Sodium Level 138 mmol/L (136-145) Potassium Level 3.9 mmol/L (3.5-5.1) Chloride Level 97 mmol/L (98-107) L Carbon Dioxide Level 25 mmol/L (21-32) Anion Gap 16 (6-14) H Blood Urea Nitrogen 90 mg/dL (8-26) H Creatinine 7.4 mg/dL (0.7-1.3) H Estimated GFR (Cockcroft-Gault) 7.6 BUN/Creatinine Ratio 12 (6-20) Glucose Level 111 mg/dL (70-99) H Calcium Level 8.5 mg/dL (8.5-10.1) Phosphorus Level 7.8 mg/dL (2.6-4.7) H Magnesium Level 2.6 mg/dL (1.8-2.4) H Total Bilirubin 4.8 mg/dL (0.2-1.0) H Aspartate Amino Transferase (AST) 71 U/L (15-37) H Alanine Aminotransferase (ALT) 44 U/L (16-63) Alkaline Phosphatase 242 U/L (46-116) H Total Protein 7.7 g/dL (6.4-8.2) Albumin 1.8 g/dL (3.4-5.0) L Albumin/Globulin Ratio 0.3 (1.0-1.7) L Laboratory Tests 08/14/21 08:00 ASSESSMENT & PLAN A&P Plan as noted above This note was created using [employer] and may have omissions and/or errors due to the nature of real-time voice java analyst. Justifications for Admission Other Justification SBO LATOYA GRIER MD Aug 14, 2021 11:35
[2021-08-14] MEDS: TPN PER PHARMACY MC PRN (13:51)
--- NOTE | 2021-08-14 13:52 | NUR ---
Pharmacy TPN Dosing Note S: FELICE GROVE is a 56 year old M Currently receiving Central Continuous TPN started 08/06/21 B:Pertinent PMH: High residuals w/tube feeding Height: 5 feet, 5 inches Weight: 76.5 kg Current diet: NPO LABS: Sodium: 138 Potassium: 3.9 Chloride: 97 Calcium: 8.5 Corrected Calcium: 10.26 Magnesium: 2.6 CO2: 25 SCr: 7.4 Glucose: 111 Albumin: 1.8 AST: 71 ALT: 44 TPN FORMULA: TPN TYPE: Central Continuous AMINO ACIDS: 90 gm DEXTROSE: 175 gm LIPIDS: 0 gm SODIUM CHLORIDE: 130 mEq SODIUM ACETATE: mEq SODIUM PHOSPHATE: mmol POTASSIUM CHLORIDE: 0 mEq POTASSIUM ACETATE: mEq POTASSIUM PHOSPHATE: 0 mmol MAGNESIUM: -- mEq CALCIUM: 0 mEq INSULIN: units MULTIPLE VITAMIN: 10 ml TRACE ELEMENTS: 1 ml(s) TPN PLAN: Add a small amount NaCl, otherwise continue same electrolytes. Remove lipids. CMP in am. R: Continue TPN as ordered Will monitor electrolytes, glucose, and tolerance to TPN. DELPHINE ARCEO, [facility], 08/14/21 [id number]
[2021-08-14] MEDS: ATORVASTATIN CALCIUM 20 MG TABLET PO SCH (19:54)
[2021-08-14] MEDS: DEXMEDETOMIDINE 400 MCG in IV NORMAL SALINE 100ML 96 ML IV PRN (20:33)
[2021-08-14] MEDS ORDERED: AMINO ACID IV SCH (22:00)
[2021-08-14] MEDS ORDERED: DEXTROSE 70% IV SCH (22:00)
[2021-08-14] MEDS ORDERED: TOTAL PARENTERAL NUTRITION IV SCH (22:00)
[2021-08-14] MEDS ORDERED: [UNRECOGNIZED DRUG - OTHER] IV SCH (22:00)
[2021-08-15] VITALS (27 sets, daily range): BP systolic 70–165; BP diastolic 32–75
[2021-08-15] MEDS: NAFCILLIN 2 GM in IV DEXTROSE 5% 100ML 100 ML IV SCH ×6 (00:36→20:17)
[2021-08-15 05:51] LABS: BASO # 0.1 x10^3/uL (0.0-0.2); BASO % 1 % (0-3); EOS # 0.4 x10^3/uL (0.0-0.7); EOS % 4 % (0-3); HEMATOCRIT 31.5 % (39.0-53.0); HEMOGLOBIN 10.3 g/dL (13.0-17.5); LYMPH # 1.3 x10^3/uL (1.0-4.8); LYMPH % 11 % (24-48); MEAN CORPUSCULAR HEMOGLOBIN 31 pg (25-35); MEAN CORPUSCULAR HGB CONC 33 g/dL (31-37); MEAN CORPUSCULAR VOLUME 96 fL (79-100); MONO # 1.8 x10^3/uL (0.0-1.1); MONO % 15 % (0-9); NEUT # 8.2 x10^3/uL (1.8-7.7); NEUT % 69 % (31-73); PLATELET COUNT 296 x10^3/uL (140-400); RED BLOOD COUNT 3.29 x10^6/uL (4.30-5.70); RED CELL DISTRIBUTION WIDTH 17.8 % (11.5-14.5); WHITE BLOOD COUNT 11.9 x10^3/uL (4.0-11.0)
[2021-08-15 06:10] LABS: ALBUMIN 1.7 g/dL (3.4-5.0); ALBUMIN/GLOBULIN RATIO 0.3 (1.0-1.7); CALCIUM 8.2 mg/dL (8.5-10.1); CREATININE 5.6 mg/dL (0.7-1.3); GFR 10.5; POTASSIUM 3.8 mmol/L (3.5-5.1); TOTAL BILIRUBIN 4.9 mg/dL (0.2-1.0); TOTAL PROTEIN 7.1 g/dL (6.4-8.2)
--- NOTE | 2021-08-15 06:23 | RAD ---
XR CHEST 1V Clinical Indication: Reason: RF / Comparison: AP chest August 11, 2021. Findings: Endotracheal tube, enteric tube, and right IJ central line are stable. The cardiomediastinal silhouet te is normal. Mild bilateral interstitial opacities are unchanged. There is no pneumothorax. There ma y be small right pleural effusion. No acute bone abnormality. IMPRESSION: Stable chest findings. Electronically signed by: Ramón Nath MD (08/15/2021 6:21 AM) [facility]
[2021-08-15] MEDS: ASPIRIN CHEWABLE 81 MG TABLET. PO SCH (08:00)
--- NOTE | 2021-08-15 08:26 | PDOC ---
DATE OF SERVICE: DOS: DATE: 08/15/21 TIME: 08:22 SUBJECTIVE ROS Follow-up for ESRD on hemodialysis Patient remained sedated and admitted on the ventilator. Unable to obtain review of systems OBJECTIVE Vital Signs Vital Signs Date Time Temp Pulse Resp B/P (MAP) Pulse Ox O2 Delivery O2 Flow Rate FiO2 08/15/21 07:34 100 Ventilator 08/15/21 06:00 102 24 99/50 08/15/21 04:00 99.8 99.8 I & 0 Intake and Output 08/15/21 06:59 Intake Total 742 ml Output Total 1300 ml Balance -558 ml Intake Oral 0 ml IV Total 660 ml Other 82 ml Output Urine Total 0 ml Gastric Drainage Total 1300 ml # Bowel Movements 1 PHYSICAL EXAM Physical Exam GEN: Sedated intubated on the ventilator, In no visible distress EYES: Sclera anicteric, Conjunctiva Normal EN: No EN Drainage, Mucous Membranes moist, orally intubated NECK: no JVD, no JVP, Supple, no Thyromegaly CVS: S1S2, + Murmur, No Gallop, No Rub,+ Edema left upper arm RESP: Rare Rales, no rhonchi, no Acc. Muscle Use, intubated on the vent GI: BS + ve, NO Bruit, Non Tender, Non Distended : no CVA tenderness, no Suprapubic Tenderness DIAGNOSIS/ASSESSMENT Assessment & Plan ESRD: Current fluid and E-lyte status does not necessitate emergent need for dialysis. Will re-evaluate for dialysis in the am and continue per outpatient schedule. ANEMIA of ESRD; Epogen as ordered, Transfuse with next HD as needed HTN: Current BP meds as reviewed. See orders for changes. Respiratory failure: Currently on the ventilator. Chest x-ray does show some CHF but FiO2 requirements are low hence ultrafiltration in the morning Hypoalbuminemia: Continue TPN for now, transition to tube feeds when appropriate Known history of aortic stenosis BONE & MINERAL: Watch phosphorus levels while on TPN, defer to pharmacy to adjust Discussed Plan of Care with patient's nurse at bedside COMMENT/RELEVANT DATA Meds Current Medications Medications (Trade) Dose Ordered Sig/Kevin Start Time Stop Time Status Last Admin Dose Admin Acetaminophen (Children'S Tylenol) 160 mg PRN Q6HRS PRN 08/09/21 20:30 UNV Acetaminophen (Tylenol Supp) 650 mg PRN Q6HRS PRN 08/03/21 20:45 08/04/21 20:25 650 MG Acetaminophen (Tylenol) 650 mg PRN Q6HRS PRN 08/03/21 20:45 Albumin Human 200 ml @ 200 mls/hr 1X PRN PRN 08/12/21 12:45 08/12/21 18:44 DC Aspirin (Aspirin Chewable) 81 mg [id number] 08/06/21 11:45 08/13/21 09:00 81 MG Atorvastatin Calcium (Lipitor) 20 mg QHS 08/06/21 21:00 08/13/21 20:55 20 MG Atropine Sulfate (ATROPINE 0.5mg SYRINGE) 0.5 mg PRN Q5MIN PRN 08/03/21 15:00 Chlorhexidine Gluconate (Peridex) 15 ml BID 08/03/21 21:00 08/04/21 19:49 DC Ciprofloxacin/ Dextrose 200 ml @ 200 mls/hr DAILY 08/04/21 09:00 08/05/21 09:18 DC 08/04/21 11:38 200 MLS/HR Dexmedetomidine HCl 400 mcg/ Sodium Chloride 100 ml @ 3.725 mls/ hr CONT PRN 08/03/21 15:00 08/14/21 20:33 3.725 MLS/HR Dextrose (Dextrose 50%-Water Syringe) 12.5 gm PRN Q15MIN PRN 08/05/21 13:00 08/06/21 17:47 25 GM Etomidate (Amidate) 20 mg STK-MED ONCE 08/03/21 17:04 08/03/21 17:04 DC Famotidine (Pepcid Vial) 20 mg QODAY 08/04/21 09:00 08/06/21 14:25 DC 08/06/21 09:08 20 MG Fentanyl Citrate 30 ml @ 2.5 mls/hr CONT PRN 08/03/21 15:00 08/12/21 08:23 2.5 MLS/HR Glycerin/ Hypromellose/ Polyethylene (Artificial Tears) 1 drop PRN Q1HR PRN 08/03/21 15:00 Heparin Sodium (Porcine) (Heparin Sodium) 5,000 unit Q12HR 08/05/21 11:00 08/13/21 20:56 5,000 UNIT Info (CONTRAST GIVEN -- Rx MONITORING) 1 each PRN DAILY PRN 08/06/21 09:45 08/08/21 09:44 DC Info (PHARMACY MONITORING -- do not chart) 1 each PRN DAILY PRN 08/14/21 07:30 Info (Tpn Per Pharmacy) 1 each PRN DAILY PRN 08/06/21 12:30 08/14/21 13:51 1 EACH Iohexol (Omnipaque 240 Mg/ml) 50 ml STK-MED ONCE 08/04/21 12:36 08/04/21 12:36 DC Iohexol (Omnipaque 300 Mg/ml) 60 ml 1X ONCE 08/06/21 09:30 08/06/21 09:31 DC 08/06/21 09:30 60 ML Lidocaine HCl (Buffered Lidocaine 1%) 3 ml 1X ONCE 08/04/21 13:30 08/04/21 13:31 DC 08/04/21 13:15 2 ML Lidocaine HCl (Xylocaine-Mpf 1% 5ml Vial) 5 ml 1X ONCE 08/04/21 09:30 08/04/21 09:31 DC Magnesium Sulfate 50 ml @ 25 mls/hr 1X ONCE 08/05/21 16:30 08/05/21 18:29 DC 08/05/21 16:59 25 MLS/HR Midazolam HCl (Versed) 5 mg PRN 1X PRN 08/03/21 15:00 08/04/21 14:59 DC Nafcillin Sodium 2 gm/Dextrose 100 ml @ 200 mls/hr Q4HRS 08/11/21 12:00 08/15/21 04:30 200 MLS/HR Norepinephrine Bitartrate 32 mg/ Dextrose 250 ml @ 3.492 mls/ hr CONT PRN 08/04/21 05:30 08/10/21 13:30 1.746 MLS/HR Norepinephrine Bitartrate 8 mg/ Dextrose 258 ml @ 14.416 mls/ hr CONT PRN 08/03/21 15:00 08/04/21 05:29 DC 08/04/21 03:52 141.274 MLS/HR Pantoprazole Sodium (PROTONIX VIAL for IV PUSH) 40 mg DAILYAC 08/06/21 15:00 08/14/21 08:06 40 MG Phenylephrine HCl 50 mg/Sodium Chloride 255 ml @ 11.399 mls/ hr CONT PRN 08/04/21 06:30 08/05/21 05:38 22.797 MLS/HR Piperacillin Sod/ Tazobactam Sod 2.25 gm/Sodium Chloride 50 ml @ 100 mls/hr Q6HRS 08/04/21 12:00 UNV Piperacillin Sod/ Tazobactam Sod 4.5 gm/Sodium Chloride 100 ml @ 200 mls/hr 1X ONCE 08/03/21 11:15 08/03/21 11:44 DC 08/03/21 11:26 200 MLS/HR Propofol 100 ml @ 2.235 mls/ hr CONT PRN 08/03/21 15:00 Rocuronium Austin (Zemuron) 50 mg STK-MED ONCE 08/03/21 17:04 08/03/21 17:04 DC Sodium Chloride (Normal Saline Flush) 10 ml 1X PRN PRN 08/07/21 05:30 08/08/21 05:29 DC Sodium Chloride 90 meq/Potassium Chloride 20 meq/ Calcium Gluconate 10 meq/ Multivitamins 10 ml/Zinc/Copper/ Manganese/ Selenium 1 ml/ Total Parenteral Nutrition/Amino Acids/Dextrose 1,200 ml @ 50 mls/hr TPN CONT 08/07/21 22:00 08/08/21 21:59 DC 08/07/21 21:26 50 MLS/HR Sodium Chloride 90 meq/Potassium Chloride 20 meq/ Calcium Gluconate 10 meq/ Multivitamins 10 ml/Zinc/Copper/ Manganese/ Selenium 1 ml/ Total Parenteral Nutrition/Amino Acids/Dextrose/ Fat Emulsion Intravenous 1,200 ml @ 50 mls/hr TPN CONT 08/06/21 22:00 08/07/21 21:59 DC 08/06/21 21:58 50 MLS/HR Sodium Chloride 110 meq/Calcium Gluconate 5 meq/ Multivitamins 10 ml/Zinc/Copper/ Manganese/ Selenium 1 ml/ Total Parenteral Nutrition/Amino Acids/Dextrose/ Fat Emulsion Intravenous 1,200 ml @ 50 mls/hr TPN CONT 08/13/21 22:00 08/14/21 21:59 DC 08/13/21 21:48 50 MLS/HR Sodium Chloride 110 meq/Potassium Chloride 20 meq/ Calcium Gluconate 10 meq/ Multivitamins 10 ml/Zinc/Copper/ Manganese/ Selenium 1 ml/ Total Parenteral Nutrition/Amino Acids/Dextrose 1,200 ml @ 50 mls/hr TPN CONT 08/08/21 22:00 08/09/21 21:59 DC 08/08/21 22:09 50 MLS/HR Sodium Chloride 110 meq/Potassium Chloride 20 meq/ Potassium Phosphate 6 mmol/ Calcium Gluconate 5 meq/ Multivitamins 10 ml/Zinc/Copper/ Manganese/ Selenium 1 ml/ Total Parenteral Nutrition/Amino Acids/Dextrose/ Fat Emulsion Intravenous 1,200 ml @ 50 mls/hr TPN CONT 08/11/21 22:00 08/12/21 22:00 DC 08/11/21 22:46 50 MLS/HR Sodium Chloride 130 meq/ Multivitamins 10 ml/Zinc/Copper/ Manganese/ Selenium 1 ml/ Total Parenteral Nutrition/Amino Acids/Dextrose 1,200 ml @ 50 mls/hr TPN CONT 08/14/21 22:00 08/15/21 21:59 08/14/21 22:16 50 MLS/HR Sodium Phosphate 15 mmol/Sodium Chloride 105 ml @ 105 mls/hr 1X ONCE 08/08/21 14:00 08/08/21 14:59 DC 08/08/21 15:22 105 MLS/HR Vancomycin HCl (Vanco Per Pharmacy) 1 each PRN DAILY PRN 08/04/21 08:00 UNV Vancomycin HCl (Vancomycin Random Level) 1 each 1X ONCE 08/05/21 06:00 08/05/21 06:01 DC 08/05/21 06:14 1 EACH Vancomycin HCl 1.5 gm/Sodium Chloride 500 ml @ 250 mls/hr 1X ONCE 08/03/21 12:00 08/03/21 13:59 DC 08/03/21 12:00 250 MLS/HR Vancomycin HCl 500 mg/Sodium Chloride 100 ml @ 100 mls/hr QTUTHSA 08/05/21 16:00 08/07/21 09:38 DC 08/05/21 15:59 100 MLS/HR Vasopressin 20 unit/Dextrose 101 ml @ 12 mls/hr CONT PRN 08/04/21 03:45 08/08/21 22:04 12 MLS/HR Vecuronium [place] (Norcuron Bolus) 6 mg PRN 1X PRN 08/03/21 15:00 08/04/21 14:59 DC Lab Laboratory Tests Test 08/14/21 16:44 08/15/21 05:30 Glucose (Fingerstick) 90 mg/dL (70-99) White Blood Count 11.9 x10^3/uL (4.0-11.0) Red Blood Count 3.29 x10^6/uL (4.30-5.70) Hemoglobin 10.3 g/dL (13.0-17.5) Hematocrit 31.5 % (39.0-53.0) Mean Corpuscular Volume 96 fL (79-100) Mean Corpuscular Hemoglobin 31 pg (25-35) Mean Corpuscular Hemoglobin Concent 33 g/dL (31-37) Red Cell Distribution Width 17.8 % (11.5-14.5) Platelet Count 296 x10^3/uL (140-400) Neutrophils (%) (Auto) 69 % (31-73) Lymphocytes (%) (Auto) 11 % (24-48) Monocytes (%) (Auto) 15 % (0-9) Eosinophils (%) (Auto) 4 % (0-3) Basophils (%) (Auto) 1 % (0-3) Neutrophils # (Auto) 8.2 x10^3/uL (1.8-7.7) Lymphocytes # (Auto) 1.3 x10^3/uL (1.0-4.8) Monocytes # (Auto) 1.8 x10^3/uL (0.0-1.1) Eosinophils # (Auto) 0.4 x10^3/uL (0.0-0.7) Basophils # (Auto) 0.1 x10^3/uL (0.0-0.2) Sodium Level 142 mmol/L (136-145) Potassium Level 3.8 mmol/L (3.5-5.1) Chloride Level 100 mmol/L (98-107) Carbon Dioxide Level 27 mmol/L (21-32) Anion Gap 15 (6-14) Blood Urea Nitrogen 64 mg/dL (8-26) Creatinine 5.6 mg/dL (0.7-1.3) Estimated GFR (Cockcroft-Gault) 10.5 BUN/Creatinine Ratio 11 (6-20) Glucose Level 106 mg/dL (70-99) Calcium Level 8.2 mg/dL (8.5-10.1) Total Bilirubin 4.9 mg/dL (0.2-1.0) Aspartate Amino Transf (AST/SGOT) 62 U/L (15-37) Alanine Aminotransferase (ALT/SGPT) 41 U/L (16-63) Alkaline Phosphatase 215 U/L (46-116) Total Protein 7.1 g/dL (6.4-8.2) Albumin 1.7 g/dL (3.4-5.0) Albumin/Globulin Ratio 0.3 (1.0-1.7) Results All relevant outside records, renal labs, imaging studies, telemetry/EKG's were reviewed. Other Chest x-ray from this morning Findings: Endotracheal tube, enteric tube, and right IJ central line are stable. The cardiomediastinal silhouette is normal. Mild bilateral interstitial opacities are unchanged. There is no pneumothorax. There may be small right pleural effusion. No acute bone abnormality. IMPRESSION: Stable chest findings. Justicifation of Admission Dx: Justifications for Admission: Justification of Admission Dx: N/A MITCH VALERIO MD Aug 15, 2021 08:26
[2021-08-15] MEDS: PANTOPRAZOLE IV PUSH 40 MG VIAL. IVP SCH (08:55)
[2021-08-15] MEDS: HEPARIN for SUB-Q USE 5,000 UNIT/ML VIAL. SQ SCH ×2 (09:00→23:01)
--- NOTE | 2021-08-15 09:33 | PDOC ---
Infectious Disease Note Subjective: Subjective Patient intubated sedated Undergoing dialysis T-max 99.8 F Vital Signs: Vital Signs Vital Signs Date Time Temp Pulse Resp B/P (MAP) Pulse Ox O2 Delivery O2 Flow Rate FiO2 08/15/21 07:34 100 Ventilator 08/15/21 06:00 102 24 99/50 08/15/21 04:00 99.8 99.8 Physical Exam: PHYSICAL EXAM GENERAL: Sedated, orally intubated gentleman, HEENT: Normocephalic atraumatic no conjunctival lesion. ETT OGT present, blood- tinged output LUNGS: Decreased breath sounds bilaterally. HEART: S1, S2 , Murmur present ABDOMEN: Soft, nontender. No organomegaly. Suprapubic catheter removed EXTREMITIES: Bilateral upper extremity edema, no cyanosis. SKIN: Blisters with ischemic changes present over left fingers. Hemorrhagic blister over the dorsum of left fourth finger, good palpable radial pulse. AV shunt in the right upper extremity is unremarkable.Left great toe ingrown nail, not infected NEUROLOGIC: Intubated, making spontaneous movements of right upper and lower extremity Medications: Inpatient Meds: Medications reviewed. Labs: Lab Laboratory Tests Test 08/14/21 16:44 08/15/21 05:30 Glucose (Fingerstick) 90 mg/dL (70-99) White Blood Count 11.9 x10^3/uL (4.0-11.0) Red Blood Count 3.29 x10^6/uL (4.30-5.70) Hemoglobin 10.3 g/dL (13.0-17.5) Hematocrit 31.5 % (39.0-53.0) Mean Corpuscular Volume 96 fL (79-100) Mean Corpuscular Hemoglobin 31 pg (25-35) Mean Corpuscular Hemoglobin Concent 33 g/dL (31-37) Red Cell Distribution Width 17.8 % (11.5-14.5) Platelet Count 296 x10^3/uL (140-400) Neutrophils (%) (Auto) 69 % (31-73) Lymphocytes (%) (Auto) 11 % (24-48) Monocytes (%) (Auto) 15 % (0-9) Eosinophils (%) (Auto) 4 % (0-3) Basophils (%) (Auto) 1 % (0-3) Neutrophils # (Auto) 8.2 x10^3/uL (1.8-7.7) Lymphocytes # (Auto) 1.3 x10^3/uL (1.0-4.8) Monocytes # (Auto) 1.8 x10^3/uL (0.0-1.1) Eosinophils # (Auto) 0.4 x10^3/uL (0.0-0.7) Basophils # (Auto) 0.1 x10^3/uL (0.0-0.2) Sodium Level 142 mmol/L (136-145) Potassium Level 3.8 mmol/L (3.5-5.1) Chloride Level 100 mmol/L (98-107) Carbon Dioxide Level 27 mmol/L (21-32) Anion Gap 15 (6-14) Blood Urea Nitrogen 64 mg/dL (8-26) Creatinine 5.6 mg/dL (0.7-1.3) Estimated GFR (Cockcroft-Gault) 10.5 BUN/Creatinine Ratio 11 (6-20) Glucose Level 106 mg/dL (70-99) Calcium Level 8.2 mg/dL (8.5-10.1) Total Bilirubin 4.9 mg/dL (0.2-1.0) Aspartate Amino Transf (AST/SGOT) 62 U/L (15-37) Alanine Aminotransferase (ALT/SGPT) 41 U/L (16-63) Alkaline Phosphatase 215 U/L (46-116) Total Protein 7.1 g/dL (6.4-8.2) Albumin 1.7 g/dL (3.4-5.0) Albumin/Globulin Ratio 0.3 (1.0-1.7) Objective: Assessment: MSSA Bacteremia 08/03/2021 ECHO 08/11 Moderate Repeat BC neg from 08/[address] head with frontoparietal infarct Encephalopathy. Fever. Improved Complicated urinary tract infection with sepsis. Hypotension. Improved Acute Respiratory failure, requiring intubation. End-stage renal disease, on hemodialysis. Congestive heart failure. History of hypertension. Leukocytosis likely reactive from GI bleed Suprapubic catheter removed Left upper extremity blisters, ischemic changes, has good radial pulse Superficial venous thrombosis CT chest abd and pelvis noted Repeat CT head noted Plan: Plan of Care Leukocytosis likely reactive from GI bleed Lt upper ext Arterial line has been removed Cont nafcillin,was on Zosyn Venous ultrasound bilateral upper extremity neg for DVT,has sup venous thrombosis Arterial ultrasound for left upper extremity reviewed ,may need vascular consult Local skin care Will need RADHA, cardiology following Supportive care Follow repeat blood cultures negative from August 06, 2021 Critically ill BRYSON VALERIO MD Aug 15, 2021 09:33
--- NOTE | 2021-08-15 09:58 | PDOC ---
PULMONARY PROGRESS NOTES DATE: 08/15/21 TIME: 09:56 Subjective Patient not responsive He is off sedation Currently on AVAPS mode due to shortage of ventilators in the hospital. 35% FiO2 5 Upper extremity swelling Vitals Vital Signs Date Time Temp Pulse Resp B/P (MAP) Pulse Ox O2 Delivery O2 Flow Rate FiO2 08/15/21 07:34 100 Ventilator 08/15/21 06:00 102 24 99/50 08/15/21 04:00 99.8 99.8 Comments on vent sedated ros unable to obtain HEENT: Other (nc at perrl nose clear orally intubated neck no lad no thyromegaly) Lungs: Crackles Cardiovascular: S1, S2 Abdomen: Soft, Non-tender Extremities: No Edema Skin: No Rashes Labs Laboratory Tests Test 08/14/21 01:05 08/14/21 08:00 08/14/21 16:44 08/15/21 05:30 Glucose (Fingerstick) 108 mg/dL (70-99) 90 mg/dL (70-99) Sodium Level 138 mmol/L (136-145) 142 mmol/L (136-145) Potassium Level 3.9 mmol/L (3.5-5.1) 3.8 mmol/L (3.5-5.1) Chloride Level 97 mmol/L (98-107) 100 mmol/L (98-107) Carbon Dioxide Level 25 mmol/L (21-32) 27 mmol/L (21-32) Anion Gap 16 (6-14) 15 (6-14) Blood Urea Nitrogen 90 mg/dL (8-26) 64 mg/dL (8-26) Creatinine 7.4 mg/dL (0.7-1.3) 5.6 mg/dL (0.7-1.3) Estimated GFR (Cockcroft-Gault) 7.6 10.5 BUN/Creatinine Ratio 12 (6-20) 11 (6-20) Glucose Level 111 mg/dL (70-99) 106 mg/dL (70-99) Calcium Level 8.5 mg/dL (8.5-10.1) 8.2 mg/dL (8.5-10.1) Phosphorus Level 7.8 mg/dL (2.6-4.7) Magnesium Level 2.6 mg/dL (1.8-2.4) Total Bilirubin 4.8 mg/dL (0.2-1.0) 4.9 mg/dL (0.2-1.0) Aspartate Amino Transf (AST/SGOT) 71 U/L (15-37) 62 U/L (15-37) Alanine Aminotransferase (ALT/SGPT) 44 U/L (16-63) 41 U/L (16-63) Alkaline Phosphatase 242 U/L (46-116) 215 U/L (46-116) Total Protein 7.7 g/dL (6.4-8.2) 7.1 g/dL (6.4-8.2) Albumin 1.8 g/dL (3.4-5.0) 1.7 g/dL (3.4-5.0) Albumin/Globulin Ratio 0.3 (1.0-1.7) 0.3 (1.0-1.7) White Blood Count 11.9 x10^3/uL (4.0-11.0) Red Blood Count 3.29 x10^6/uL (4.30-5.70) Hemoglobin 10.3 g/dL (13.0-17.5) Hematocrit 31.5 % (39.0-53.0) Mean Corpuscular Volume 96 fL (79-100) Mean Corpuscular Hemoglobin 31 pg (25-35) Mean Corpuscular Hemoglobin Concent 33 g/dL (31-37) Red Cell Distribution Width 17.8 % (11.5-14.5) Platelet Count 296 x10^3/uL (140-400) Neutrophils (%) (Auto) 69 % (31-73) Lymphocytes (%) (Auto) 11 % (24-48) Monocytes (%) (Auto) 15 % (0-9) Eosinophils (%) (Auto) 4 % (0-3) Basophils (%) (Auto) 1 % (0-3) Neutrophils # (Auto) 8.2 x10^3/uL (1.8-7.7) Lymphocytes # (Auto) 1.3 x10^3/uL (1.0-4.8) Monocytes # (Auto) 1.8 x10^3/uL (0.0-1.1) Eosinophils # (Auto) 0.4 x10^3/uL (0.0-0.7) Basophils # (Auto) 0.1 x10^3/uL (0.0-0.2) Laboratory Tests Test 08/14/21 16:44 08/15/21 05:30 Glucose (Fingerstick) 90 mg/dL (70-99) White Blood Count 11.9 x10^3/uL (4.0-11.0) Red Blood Count 3.29 x10^6/uL (4.30-5.70) Hemoglobin 10.3 g/dL (13.0-17.5) Hematocrit 31.5 % (39.0-53.0) Mean Corpuscular Volume 96 fL (79-100) Mean Corpuscular Hemoglobin 31 pg (25-35) Mean Corpuscular Hemoglobin Concent 33 g/dL (31-37) Red Cell Distribution Width 17.8 % (11.5-14.5) Platelet Count 296 x10^3/uL (140-400) Neutrophils (%) (Auto) 69 % (31-73) Lymphocytes (%) (Auto) 11 % (24-48) Monocytes (%) (Auto) 15 % (0-9) Eosinophils (%) (Auto) 4 % (0-3) Basophils (%) (Auto) 1 % (0-3) Neutrophils # (Auto) 8.2 x10^3/uL (1.8-7.7) Lymphocytes # (Auto) 1.3 x10^3/uL (1.0-4.8) Monocytes # (Auto) 1.8 x10^3/uL (0.0-1.1) Eosinophils # (Auto) 0.4 x10^3/uL (0.0-0.7) Basophils # (Auto) 0.1 x10^3/uL (0.0-0.2) Sodium Level 142 mmol/L (136-145) Potassium Level 3.8 mmol/L (3.5-5.1) Chloride Level 100 mmol/L (98-107) Carbon Dioxide Level 27 mmol/L (21-32) Anion Gap 15 (6-14) Blood Urea Nitrogen 64 mg/dL (8-26) Creatinine 5.6 mg/dL (0.7-1.3) Estimated GFR (Cockcroft-Gault) 10.5 BUN/Creatinine Ratio 11 (6-20) Glucose Level 106 mg/dL (70-99) Calcium Level 8.2 mg/dL (8.5-10.1) Total Bilirubin 4.9 mg/dL (0.2-1.0) Aspartate Amino Transf (AST/SGOT) 62 U/L (15-37) Alanine Aminotransferase (ALT/SGPT) 41 U/L (16-63) Alkaline Phosphatase 215 U/L (46-116) Total Protein 7.1 g/dL (6.4-8.2) Albumin 1.7 g/dL (3.4-5.0) Albumin/Globulin Ratio 0.3 (1.0-1.7) Medications Active Scripts Medications Dose Route/Sig Max Daily Dose Days Date Category Tums (Calcium Carbonate) 200 Mg Tab.chew 400 Mg PO HS 04/19/21 Reported Sensipar (Cinacalcet Hcl) 60 Mg Tablet 1 Tab PO DAILY 30 04/19/21 Reported Ferric Citrate 210 Mg Tablet 2 Tab PO TID 30 04/19/21 Reported Lasix (Furosemide) 40 Mg Tablet 40 Mg PO BID 04/19/21 Reported Renagel (Sevelamer Hcl) 800 Mg Tablet 2 Tab PO TIDWMEALS 01/18/21 Reported Kapspargo Sprinkle (Metoprolol Succinate) 50 Mg Cap.spr.24 50 Mg PO DAILY 01/18/21 Reported Comments Chest x-ray reviewed dated 08/09/2021. Faint bilateral infiltrates CT chest reviewed dated 08/06/2021. Small basal pleural effusion with associated atelectasis. No definite consolidation seen Impression . IMPRESSION: 1. Acute hypoxemic respiratory failure, multifactorial. 2. Septic shock./Urosepsis 3. Fever related to above. 4. SARS-CoV-2 testing negative. 5. End-stage renal disease, on hemodialysis. 6. Possible stroke. 7. MSSA bactremia 8. Encephalopathy. Off sedation but still nonresponsive. Could be related to stroke. 9. ischemic stroke Other comorbidities including end-stage renal disease, hypertension, chronic obstructive pulmonary disease, gastroesophageal reflux, ischemic cardiomyopathy. 10. Upper extremity swelling. Venous Dopplers with no DVT but only superficial phlebitis. Arterial Dopplers with proximal stenosis of ulnar and radial Plan . Updated 08/15 Continue vent support assist-control mode. setting reviewed CT head with no new stroke.remains encephalopathic repeat bcx neg abx per id vasopressor to keep map 65 complicated urinary tract infection with septic shock. mssa bactremia Follow ID recommendations Hemodialysis per nephrology Follow blood cultures DVT GI prophylaxis CT chest reviewed. No focal consolidation. Small basal effusion with associated atelectasis. discussed w rn rt Off sedation for 72 hours. Patient still not responsive Venous Dopplers of upper extremities reviewed. Arterial Doppler results reviewed as well. Follow-up vascular surgery recommendations Have discussed with patient's mother yesterday. I explained to her about patient's clinical condition and persistent encephalopathy with inability to do adequate CPAP trials. Patient's mother was also informed, that if she wants to pursue with aggressive care, he would require tracheostomy. Patient's mother mentioned to me that patient never like to be on dialysis. He would not certainly like to have a tracheostomy. She may be leaning towards withdrawal of care. She would like me to call her again tomorrow to rediscuss advance care and goals Discussed with RN and RT cct 30 min Updated 08/14 Continue vent support assist-control mode. setting reviewed CT head with no new stroke.remains encephalopathic repeat bcx neg abx per id vasopressor to keep map 65 complicated urinary tract infection with septic shock. mssa bactremia Follow ID recommendations Hemodialysis per nephrology Follow blood cultures DVT GI prophylaxis CT chest reviewed. No focal consolidation. Small basal effusion with associated atelectasis. discussed w rn rt Off sedation for 72 hours. Patient still not responsive Venous Dopplers of upper extremities reviewed. Arterial Doppler results reviewed as well. Follow-up vascular surgery recommendations will reach out to mother about advance directives Discussed with RN and RT Updated 08/12 Continue vent support assist-control mode. setting reviewed CT head with no new stroke. repeat bcx neg abx per id vasopressor to keep map 65 complicated urinary tract infection with septic shock. mssa bactremia Follow ID recommendations Hemodialysis per nephrology Follow blood cultures DVT GI prophylaxis CT chest reviewed. No focal consolidation. Small basal effusion with associated atelectasis. discussed w rn rt Off sedation for 72 hours. Patient still not responsive Venous Dopplers of upper extremities reviewed. Arterial Doppler results reviewed as well. Follow-up vascular surgery recommendations We will discontinue Trental completely and let him wake up for a CPAP trial. Discussed with RN and RT Updated 08/11 Continue vent support assist-control mode. setting reviewed no weaning. CT head with no new stroke. repeat bcx neg abx per id vasopressor to keep map 65 complicated urinary tract infection with septic shock. mssa bactremia Follow ID recommendations Hemodialysis per nephrology Follow blood cultures DVT GI prophylaxis CT chest reviewed. No focal consolidation. Small basal effusion with associated atelectasis. discussed w rn rt Off sedation for 72 hours. Patient still not responsive Venous Dopplers of upper extremities ordered. Discussed with RN and RT Updated 08/10 Continue vent support assist-control mode. setting reviewed no weaning. CT head today to rule out ischemic stroke. repeat bcx neg abx per id vasopressor to keep map 65 complicated urinary tract infection with septic shock. mssa bactremia Follow ID recommendations Hemodialysis per nephrology Follow blood cultures DVT GI prophylaxis CT chest reviewed. No focal consolidation. Small basal effusion with associated atelectasis. discussed w rn rt Off sedation for 72 hours. Patient still not responsive Discussed with RN and RT Updated 08/09 Continue vent support assist-control mode. setting reviewed repeat bcx neg abx per id vasopressor to keep map 65 complicated urinary tract infection with septic shock. mssa bactremia Follow ID recommendations Hemodialysis per nephrology Follow blood cultures DVT GI prophylaxis CT chest reviewed. No focal consolidation. Small basal effusion with associated atelectasis. discussed w rn rt Off sedation for 48 hours. If there is not wake up in the next few days, may need an MRI. Discussed with RN and RT Updated 08/08 Continue vent support assist-control mode. setting reviewed repeat bcx neg abx per id vasopressor to keep map 65 complicated urinary tract infection with septic shock. mssa bactremia Follow ID recommendations Hemodialysis per nephrology Follow blood cultures DVT GI prophylaxis CT chest reviewed. No focal consolidation. Small basal effusion with associated atelectasis. discussed w rn rt RUDI DAVALOS MD Aug 15, 2021 09:58
[2021-08-15] MEDS: DEXMEDETOMIDINE 400 MCG in IV NORMAL SALINE 100ML 96 ML IV PRN (10:03)
[2021-08-15] MEDS: NOREPINEPHRINE VIAL 32 MG in IV D5W 250ML IV PRN (11:18)
--- NOTE | 2021-08-15 12:13 | PDOC ---
CARDIOLOGY PROGRESS NOTE SUBJECTIVE: Mr. Oleg Dowling is a 56 y.o. male with PMH of tachbrady syndrome s/p leadless pacemaker, CHF, moderate to , and ESRD who was admitted to hospital following an acute neurovascular event. Since last seen, patient continues to be non-responsive and remains on ventilator and dialysis. Due to oral bleeding, heparin and ASA have been held. Nursing reports that while oral bleeding has improved since yesterday, OG continues to be blood tinged. Left upper extremity edema has been persistent. Due to history of ESRD, patient continues on dialysis. Patient remains of Nafcillin due to MSSA bacteremia. OBJECTIVE: Vital Signs/I&O: Vital Signs Date Time Temp Pulse Resp B/P (MAP) Pulse Ox O2 Delivery O2 Flow Rate FiO2 08/15/21 08:00 Mechanical Ventilator 08/15/21 07:34 100 08/15/21 06:00 102 24 99/50 08/15/21 04:00 99.8 99.8 I & O 08/14/21 08/14/21 08/15/21 15:00 23:00 07:00 Intake Total 742 ml 0 ml Output Total 350 ml 950 ml Balance 392 ml -950 ml Objective: General: Patient remains unresponsive, non-verbal, on ventilator lying supine, responds to light touch by moving right arm. HEENT: Scant dried blood around bilateral nares Heart: RRR, moderate/severe aortic stenosis Lung: Deferred 2/2 vent Extremities: +2 pulses BUE and BLE. BUE edema L>R CURRENT MEDICATIONS: Current Medications Medications (Trade) Dose Ordered Sig/Kevin Start Time Stop Time Status Last Admin Dose Admin Acetaminophen (Children'S Tylenol) 160 mg PRN Q6HRS PRN 08/09/21 20:30 UNV Acetaminophen (Tylenol Supp) 650 mg PRN Q6HRS PRN 08/03/21 20:45 08/04/21 20:25 Acetaminophen (Tylenol) 650 mg PRN Q6HRS PRN 08/03/21 20:45 Albumin Human 200 ml @ 200 mls/hr 1X PRN PRN 08/12/21 12:45 08/12/21 18:44 DC Aspirin (Aspirin Chewable) 81 mg DAILYWBKFT 08/06/21 11:45 08/13/21 09:00 Atorvastatin Calcium (Lipitor) 20 mg QHS 08/06/21 21:00 08/13/21 20:55 Atropine Sulfate (ATROPINE 0.5mg SYRINGE) 0.5 mg PRN Q5MIN PRN 08/03/21 15:00 Chlorhexidine Gluconate (Peridex) 15 ml BID 08/03/21 21:00 08/04/21 19:49 DC Ciprofloxacin/ Dextrose 200 ml @ 200 mls/hr DAILY 08/04/21 09:00 08/05/21 09:18 DC 08/04/21 11:38 Dexmedetomidine HCl 400 mcg/ Sodium Chloride 100 ml @ 3.725 mls/ hr CONT PRN 08/03/21 15:00 08/15/21 10:03 Dextrose (Dextrose 50%-Water Syringe) 12.5 gm PRN Q15MIN PRN 08/05/21 13:00 08/06/21 17:47 Etomidate (Amidate) 20 mg STK-MED ONCE 08/03/21 17:04 08/03/21 17:04 DC Famotidine (Pepcid Vial) 20 mg QODAY 08/04/21 09:00 08/06/21 14:25 DC 08/06/21 09:08 Fentanyl Citrate 30 ml @ 2.5 mls/hr CONT PRN 08/03/21 15:00 08/12/21 08:23 Glycerin/ Hypromellose/ Polyethylene (Artificial Tears) 1 drop PRN Q1HR PRN 08/03/21 15:00 Heparin Sodium (Porcine) (Heparin Sodium) 5,000 unit Q12HR 08/05/21 11:00 08/13/21 20:56 Info (CONTRAST GIVEN -- Rx MONITORING) 1 each PRN DAILY PRN 08/06/21 09:45 08/08/21 09:44 DC Info (PHARMACY MONITORING -- do not chart) 1 each PRN DAILY PRN 08/14/21 07:30 Info (Tpn Per Pharmacy) 1 each PRN DAILY PRN 08/06/21 12:30 08/14/21 13:51 Iohexol (Omnipaque 240 Mg/ml) 50 ml STK-MED ONCE 08/04/21 12:36 08/04/21 12:36 DC Iohexol (Omnipaque 300 Mg/ml) 60 ml 1X ONCE 08/06/21 09:30 08/06/21 09:31 DC 08/06/21 09:30 Lidocaine HCl (Buffered Lidocaine 1%) 3 ml 1X ONCE 08/04/21 13:30 08/04/21 13:31 DC 08/04/21 13:15 Lidocaine HCl (Xylocaine-Mpf 1% 5ml Vial) 5 ml 1X ONCE 08/04/21 09:30 08/04/21 09:31 DC Magnesium Sulfate 50 ml @ 25 mls/hr 1X ONCE 08/05/21 16:30 08/05/21 18:29 DC 08/05/21 16:59 Midazolam HCl (Versed) 5 mg PRN 1X PRN 08/03/21 15:00 08/04/21 14:59 DC Nafcillin Sodium 2 gm/Dextrose 100 ml @ 200 mls/hr Q4HRS 08/11/21 12:00 08/15/21 11:19 Norepinephrine Bitartrate 32 mg/ Dextrose 250 ml @ 3.492 mls/ hr CONT PRN 08/04/21 05:30 08/15/21 11:18 Norepinephrine Bitartrate 8 mg/ Dextrose 258 ml @ 14.416 mls/ hr CONT PRN 08/03/21 15:00 08/04/21 05:29 DC 08/04/21 03:52 Pantoprazole Sodium (PROTONIX VIAL for IV PUSH) 40 mg DAILYAC 08/06/21 15:00 08/15/21 08:55 Phenylephrine HCl 50 mg/Sodium Chloride 255 ml @ 11.399 mls/ hr CONT PRN 08/04/21 06:30 08/05/21 05:38 Piperacillin Sod/ Tazobactam Sod 2.25 gm/Sodium Chloride 50 ml @ 100 mls/hr Q6HRS 08/04/21 12:00 UNV Piperacillin Sod/ Tazobactam Sod 4.5 gm/Sodium Chloride 100 ml @ 200 mls/hr 1X ONCE 08/03/21 11:15 08/03/21 11:44 DC 08/03/21 11:26 Propofol 100 ml @ 2.235 mls/ hr CONT PRN 08/03/21 15:00 Rocuronium [place] (Zemuron) 50 mg STK-MED ONCE 08/03/21 17:04 08/03/21 17:04 DC Sodium Chloride (Normal Saline Flush) 10 ml 1X PRN PRN 08/07/21 05:30 08/08/21 05:29 DC Sodium Chloride 90 meq/Potassium Chloride 20 meq/ Calcium Gluconate 10 meq/ Multivitamins 10 ml/Zinc/Copper/ Manganese/ Selenium 1 ml/ Total Parenteral Nutrition/Amino Acids/Dextrose 1,200 ml @ 50 mls/hr TPN CONT 08/07/21 22:00 08/08/21 21:59 DC 08/07/21 21:26 Sodium Chloride 90 meq/Potassium Chloride 20 meq/ Calcium Gluconate 10 meq/ Multivitamins 10 ml/Zinc/Copper/ Manganese/ Selenium 1 ml/ Total Parenteral Nutrition/Amino Acids/Dextrose/ Fat Emulsion Intravenous 1,200 ml @ 50 mls/hr TPN CONT 08/06/21 22:00 08/07/21 21:59 DC 08/06/21 21:58 Sodium Chloride 110 meq/Calcium Gluconate 5 meq/ Multivitamins 10 ml/Zinc/Copper/ Manganese/ Selenium 1 ml/ Total Parenteral Nutrition/Amino Acids/Dextrose/ Fat Emulsion Intravenous 1,200 ml @ 50 mls/hr TPN CONT 08/13/21 22:00 08/14/21 21:59 DC 08/13/21 21:48 Sodium Chloride 110 meq/Potassium Chloride 20 meq/ Calcium Gluconate 10 meq/ Multivitamins 10 ml/Zinc/Copper/ Manganese/ Selenium 1 ml/ Total Parenteral Nutrition/Amino Acids/Dextrose 1,200 ml @ 50 mls/hr TPN CONT 08/08/21 22:00 08/09/21 21:59 DC 08/08/21 22:09 Sodium Chloride 110 meq/Potassium Chloride 20 meq/ Potassium Phosphate 6 mmol/ Calcium Gluconate 5 meq/ Multivitamins 10 ml/Zinc/Copper/ Manganese/ Selenium 1 ml/ Total Parenteral Nutrition/Amino Acids/Dextrose/ Fat Emulsion Intravenous 1,200 ml @ 50 mls/hr TPN CONT 08/11/21 22:00 08/12/21 22:00 DC 08/11/21 22:46 Sodium Chloride 130 meq/ Multivitamins 10 ml/Zinc/Copper/ Manganese/ Selenium 1 ml/ Total Parenteral Nutrition/Amino Acids/Dextrose 1,200 ml @ 50 mls/hr TPN CONT 08/14/21 22:00 08/15/21 21:59 08/14/21 22:16 Sodium Phosphate 15 mmol/Sodium Chloride 105 ml @ 105 mls/hr 1X ONCE 08/08/21 14:00 08/08/21 14:59 DC 08/08/21 15:22 Vancomycin HCl (Vanco Per Pharmacy) 1 each PRN DAILY PRN 08/04/21 08:00 UNV Vancomycin HCl (Vancomycin Random Level) 1 each 1X ONCE 08/05/21 06:00 08/05/21 06:01 DC 08/05/21 06:14 Vancomycin HCl 1.5 gm/Sodium Chloride 500 ml @ 250 mls/hr 1X ONCE 08/03/21 12:00 08/03/21 13:59 DC 08/03/21 12:00 Vancomycin HCl 500 mg/Sodium Chloride 100 ml @ 100 mls/hr QTUTHSA 08/05/21 16:00 08/07/21 09:38 DC 08/05/21 15:59 Vasopressin 20 unit/Dextrose 101 ml @ 12 mls/hr CONT PRN 08/04/21 03:45 08/08/21 22:04 Vecuronium [place] (Norcuron Bolus) 6 mg PRN 1X PRN 08/03/21 15:00 08/04/21 14:59 DC DIAGNOSTIC TESTING: Laboratory Tests Test 08/14/21 16:44 08/15/21 05:30 Glucose (Fingerstick) 90 mg/dL White Blood Count 11.9 x10^3/uL Red Blood Count 3.29 x10^6/uL Hemoglobin 10.3 g/dL Hematocrit 31.5 % Mean Corpuscular Volume 96 fL Mean Corpuscular Hemoglobin 31 pg Mean Corpuscular Hemoglobin Concent 33 g/dL Red Cell Distribution Width 17.8 % Platelet Count 296 x10^3/uL Neutrophils (%) (Auto) 69 % Lymphocytes (%) (Auto) 11 % Monocytes (%) (Auto) 15 % Eosinophils (%) (Auto) 4 % Basophils (%) (Auto) 1 % Neutrophils # (Auto) 8.2 x10^3/uL Lymphocytes # (Auto) 1.3 x10^3/uL Monocytes # (Auto) 1.8 x10^3/uL Eosinophils # (Auto) 0.4 x10^3/uL Basophils # (Auto) 0.1 x10^3/uL Sodium Level 142 mmol/L Potassium Level 3.8 mmol/L Chloride Level 100 mmol/L Carbon Dioxide Level 27 mmol/L Anion Gap 15 Blood Urea Nitrogen 64 mg/dL Creatinine 5.6 mg/dL Estimated GFR (Cockcroft-Gault) 10.5 BUN/Creatinine Ratio 11 Glucose Level 106 mg/dL Calcium Level 8.2 mg/dL Total Bilirubin 4.9 mg/dL Aspartate Amino Transf (AST/SGOT) 62 U/L Alanine Aminotransferase (ALT/SGPT) 41 U/L Alkaline Phosphatase 215 U/L Total Protein 7.1 g/dL Albumin 1.7 g/dL Albumin/Globulin Ratio 0.3 Labs: Laboratory Tests 08/15/21 05:30 ASSESSMENT: 1. Stroke 2. Tachy-robin 3. CHF 4. Moderate/severe Aortic Stenosis 5. ESRD 6. Respiratory failure 7. CVA 8. 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 Continue hemodialysis 2. Await family decision regarding goals of care. Nurse reports that family is likely to make a decision on this tomorrow. 3. Due to continued OG bleeding and drop in hemoglobin, continue to hold ASA and Heparin. 4. Left hemiplegia, tx per neurology service. 5. Defer tx of severe to outpatient. 6. No acute indication for angiogram of the left upper extremity. Patient continues to have 2+ bilateral UE pulses and previous doppler showed ulnar flow remains intact. Thanks we will follow along. Justicifation of Admission Dx: Justifications for Admission: Justification of Admission Dx: N/A MARIANN TIRADO MD Aug 15, 2021 12:13
--- NOTE | 2021-08-15 12:21 | PDOC ---
GENERAL General: Patient examined chart reviewed discussed with nursing. Appreciate subspecialty support. No acute events overnight noted. Patient does continue to have significant dark secretions from his NG tube though interestingly his hemoglobin stays relatively stable. They have been holding aspirin and anticoagulation we will continue to do that. We may need to involve GI depending on his progress. He is on intravenous pantoprazole. Not making meaningful neurologic recovery. Problems: (1) ESRD (end stage renal disease) on dialysis (2) Respiratory failure (3) Sepsis (4) Stroke VITAL SIGNS Vital Signs/I&O: Vital Signs Date Time Temp Pulse Resp B/P (MAP) Pulse Ox O2 Delivery O2 Flow Rate FiO2 08/15/21 08:00 Mechanical Ventilator 08/15/21 07:34 100 08/15/21 06:00 102 24 99/50 08/15/21 04:00 99.8 99.8 I & O 08/14/21 08/14/21 08/15/21 15:00 23:00 07:00 Intake Total 742 ml 0 ml Output Total 350 ml 950 ml Balance 392 ml -950 ml In general patient is intubated sedated unresponsive on the ventilator HEENT exam is notable for blood around his ET tube and nursing tells me that she just emptied a fair amount of dark secretions from his suction unit Chest bilateral equal air entry though diminished throughout Heart S1-S2 normal regular rate and rhythm 2 x 6 systolic murmur noted loudest at the left sternal border Abdomen soft nontender nondistended no masses or organomegaly noted Extremity exam is unremarkable for acute abnormality ALLERGIES Allergies: Allergies Coded Allergies Type Severity Reaction Last Updated Verified No Known Drug Allergies 02/17/21 No MEDS Medications: Current Medications Medications (Trade) Dose Ordered Sig/Kevin Start Time Stop Time Status Last Admin Dose Admin Acetaminophen (Children'S Tylenol) 160 mg PRN Q6HRS PRN 08/09/21 20:30 UNV Acetaminophen (Tylenol Supp) 650 mg PRN Q6HRS PRN 08/03/21 20:45 08/04/21 20:25 Acetaminophen (Tylenol) 650 mg PRN Q6HRS PRN 08/03/21 20:45 Albumin Human 200 ml @ 200 mls/hr 1X PRN PRN 08/12/21 12:45 08/12/21 18:44 DC Aspirin (Aspirin Chewable) 81 mg [id number] 08/06/21 11:45 08/13/21 09:00 Atorvastatin Calcium (Lipitor) 20 mg QHS 08/06/21 21:00 08/13/21 20:55 Atropine Sulfate (ATROPINE 0.5mg SYRINGE) 0.5 mg PRN Q5MIN PRN 08/03/21 15:00 Chlorhexidine Gluconate (Peridex) 15 ml BID 08/03/21 21:00 08/04/21 19:49 DC Ciprofloxacin/ Dextrose 200 ml @ 200 mls/hr DAILY 08/04/21 09:00 08/05/21 09:18 DC 08/04/21 11:38 Dexmedetomidine HCl 400 mcg/ Sodium Chloride 100 ml @ 3.725 mls/ hr CONT PRN 08/03/21 15:00 08/15/21 10:03 Dextrose (Dextrose 50%-Water Syringe) 12.5 gm PRN Q15MIN PRN 08/05/21 13:00 08/06/21 17:47 Etomidate (Amidate) 20 mg STK-MED ONCE 08/03/21 17:04 08/03/21 17:04 DC Famotidine (Pepcid Vial) 20 mg QODAY 08/04/21 09:00 08/06/21 14:25 DC 08/06/21 09:08 Fentanyl Citrate 30 ml @ 2.5 mls/hr CONT PRN 08/03/21 15:00 08/12/21 08:23 Glycerin/ Hypromellose/ Polyethylene (Artificial Tears) 1 drop PRN Q1HR PRN 08/03/21 15:00 Heparin Sodium (Porcine) (Heparin Sodium) 5,000 unit Q12HR 08/05/21 11:00 08/13/21 20:56 Info (CONTRAST GIVEN -- Rx MONITORING) 1 each PRN DAILY PRN 08/06/21 09:45 08/08/21 09:44 DC Info (PHARMACY MONITORING -- do not chart) 1 each PRN DAILY PRN 08/14/21 07:30 Info (Tpn Per Pharmacy) 1 each PRN DAILY PRN 08/06/21 12:30 08/14/21 13:51 Iohexol (Omnipaque 240 Mg/ml) 50 ml STK-MED ONCE 08/04/21 12:36 08/04/21 12:36 DC Iohexol (Omnipaque 300 Mg/ml) 60 ml 1X ONCE 08/06/21 09:30 08/06/21 09:31 DC 08/06/21 09:30 Lidocaine HCl (Buffered Lidocaine 1%) 3 ml 1X ONCE 08/04/21 13:30 08/04/21 13:31 DC 08/04/21 13:15 Lidocaine HCl (Xylocaine-Mpf 1% 5ml Vial) 5 ml 1X ONCE 08/04/21 09:30 08/04/21 09:31 DC Magnesium Sulfate 50 ml @ 25 mls/hr 1X ONCE 08/05/21 16:30 08/05/21 18:29 DC 08/05/21 16:59 Midazolam HCl (Versed) 5 mg PRN 1X PRN 08/03/21 15:00 08/04/21 14:59 DC Nafcillin Sodium 2 gm/Dextrose 100 ml @ 200 mls/hr Q4HRS 08/11/21 12:00 08/15/21 11:19 Norepinephrine Bitartrate 32 mg/ Dextrose 250 ml @ 3.492 mls/ hr CONT PRN 08/04/21 05:30 08/15/21 11:18 Norepinephrine Bitartrate 8 mg/ Dextrose 258 ml @ 14.416 mls/ hr CONT PRN 08/03/21 15:00 08/04/21 05:29 DC 08/04/21 03:52 Pantoprazole Sodium (PROTONIX VIAL for IV PUSH) 40 mg DAILYAC 08/06/21 15:00 08/15/21 08:55 Phenylephrine HCl 50 mg/Sodium Chloride 255 ml @ 11.399 mls/ hr CONT PRN 08/04/21 06:30 08/05/21 05:38 Piperacillin Sod/ Tazobactam Sod 2.25 gm/Sodium Chloride 50 ml @ 100 mls/hr Q6HRS 08/04/21 12:00 UNV Piperacillin Sod/ Tazobactam Sod 4.5 gm/Sodium Chloride 100 ml @ 200 mls/hr 1X ONCE 08/03/21 11:15 08/03/21 11:44 DC 08/03/21 11:26 Propofol 100 ml @ 2.235 mls/ hr CONT PRN 08/03/21 15:00 Rocuronium [place] (Zemuron) 50 mg STK-MED ONCE 08/03/21 17:04 08/03/21 17:04 DC Sodium Chloride (Normal Saline Flush) 10 ml 1X PRN PRN 08/07/21 05:30 08/08/21 05:29 DC Sodium Chloride 90 meq/Potassium Chloride 20 meq/ Calcium Gluconate 10 meq/ Multivitamins 10 ml/Zinc/Copper/ Manganese/ Selenium 1 ml/ Total Parenteral Nutrition/Amino Acids/Dextrose 1,200 ml @ 50 mls/hr TPN CONT 08/07/21 22:00 08/08/21 21:59 DC 08/07/21 21:26 Sodium Chloride 90 meq/Potassium Chloride 20 meq/ Calcium Gluconate 10 meq/ Multivitamins 10 ml/Zinc/Copper/ Manganese/ Selenium 1 ml/ Total Parenteral Nutrition/Amino Acids/Dextrose/ Fat Emulsion Intravenous 1,200 ml @ 50 mls/hr TPN CONT 08/06/21 22:00 08/07/21 21:59 DC 08/06/21 21:58 Sodium Chloride 110 meq/Calcium Gluconate 5 meq/ Multivitamins 10 ml/Zinc/Copper/ Manganese/ Selenium 1 ml/ Total Parenteral Nutrition/Amino Acids/Dextrose/ Fat Emulsion Intravenous 1,200 ml @ 50 mls/hr TPN CONT 08/13/21 22:00 08/14/21 21:59 DC 08/13/21 21:48 Sodium Chloride 110 meq/Potassium Chloride 20 meq/ Calcium Gluconate 10 meq/ Multivitamins 10 ml/Zinc/Copper/ Manganese/ Selenium 1 ml/ Total Parenteral Nutrition/Amino Acids/Dextrose 1,200 ml @ 50 mls/hr TPN CONT 08/08/21 22:00 08/09/21 21:59 DC 08/08/21 22:09 Sodium Chloride 110 meq/Potassium Chloride 20 meq/ Potassium Phosphate 6 mmol/ Calcium Gluconate 5 meq/ Multivitamins 10 ml/Zinc/Copper/ Manganese/ Selenium 1 ml/ Total Parenteral Nutrition/Amino Acids/Dextrose/ Fat Emulsion Intravenous 1,200 ml @ 50 mls/hr TPN CONT 08/11/21 22:00 08/12/21 22:00 DC 08/11/21 22:46 Sodium Chloride 130 meq/ Multivitamins 10 ml/Zinc/Copper/ Manganese/ Selenium 1 ml/ Total Parenteral Nutrition/Amino Acids/Dextrose 1,200 ml @ 50 mls/hr TPN CONT 08/14/21 22:00 08/15/21 21:59 08/14/21 22:16 Sodium Phosphate 15 mmol/Sodium Chloride 105 ml @ 105 mls/hr 1X ONCE 08/08/21 14:00 08/08/21 14:59 DC 08/08/21 15:22 Vancomycin HCl (Vanco Per Pharmacy) 1 each PRN DAILY PRN 08/04/21 08:00 UNV Vancomycin HCl (Vancomycin Random Level) 1 each 1X ONCE 08/05/21 06:00 08/05/21 06:01 DC 08/05/21 06:14 Vancomycin HCl 1.5 gm/Sodium Chloride 500 ml @ 250 mls/hr 1X ONCE 08/03/21 12:00 08/03/21 13:59 DC 08/03/21 12:00 Vancomycin HCl 500 mg/Sodium Chloride 100 ml @ 100 mls/hr QTUTHSA 08/05/21 16:00 08/07/21 09:38 DC 08/05/21 15:59 Vasopressin 20 unit/Dextrose 101 ml @ 12 mls/hr CONT PRN 08/04/21 03:45 08/08/21 22:04 Vecuronium [place] (Norcuron Bolus) 6 mg PRN 1X PRN 08/03/21 15:00 08/04/21 14:59 DC Current Medications Medications (Trade) Dose Ordered Sig/Kevin Route PRN Reason Start Time Stop Time Status Last Admin Dose Admin Sodium Chloride 130 meq/ Multivitamins 10 ml/Zinc/Copper/ Manganese/ Selenium 1 ml/ Total Parenteral Nutrition/Amino Acids/Dextrose 1,200 ml @ 50 mls/hr TPN CONT IV 08/14/21 22:00 08/15/21 21:59 08/14/21 22:16 LAB Lab: Laboratory Tests Test 08/14/21 16:44 08/15/21 05:30 Glucose (Fingerstick) 90 mg/dL (70-99) White Blood Count 11.9 x10^3/uL (4.0-11.0) H Red Blood Count 3.29 x10^6/uL (4.30-5.70) L Hemoglobin 10.3 g/dL (13.0-17.5) L Hematocrit 31.5 % (39.0-53.0) L Mean Corpuscular Volume 96 fL (79-100) Mean Corpuscular Hemoglobin 31 pg (25-35) Mean Corpuscular Hemoglobin Concent 33 g/dL (31-37) Red Cell Distribution Width 17.8 % (11.5-14.5) H Platelet Count 296 x10^3/uL (140-400) Neutrophils (%) (Auto) 69 % (31-73) Lymphocytes (%) (Auto) 11 % (24-48) L Monocytes (%) (Auto) 15 % (0-9) H Eosinophils (%) (Auto) 4 % (0-3) H Basophils (%) (Auto) 1 % (0-3) Neutrophils # (Auto) 8.2 x10^3/uL (1.8-7.7) H Lymphocytes # (Auto) 1.3 x10^3/uL (1.0-4.8) Monocytes # (Auto) 1.8 x10^3/uL (0.0-1.1) H Eosinophils # (Auto) 0.4 x10^3/uL (0.0-0.7) Basophils # (Auto) 0.1 x10^3/uL (0.0-0.2) Sodium Level 142 mmol/L (136-145) Potassium Level 3.8 mmol/L (3.5-5.1) Chloride Level 100 mmol/L (98-107) Carbon Dioxide Level 27 mmol/L (21-32) Anion Gap 15 (6-14) H Blood Urea Nitrogen 64 mg/dL (8-26) H Creatinine 5.6 mg/dL (0.7-1.3) H Estimated GFR (Cockcroft-Gault) 10.5 BUN/Creatinine Ratio 11 (6-20) Glucose Level 106 mg/dL (70-99) H Calcium Level 8.2 mg/dL (8.5-10.1) L Total Bilirubin 4.9 mg/dL (0.2-1.0) H Aspartate Amino Transferase (AST) 62 U/L (15-37) H Alanine Aminotransferase (ALT) 41 U/L (16-63) Alkaline Phosphatase 215 U/L (46-116) H Total Protein 7.1 g/dL (6.4-8.2) Albumin 1.7 g/dL (3.4-5.0) L Albumin/Globulin Ratio 0.3 (1.0-1.7) L Laboratory Tests 08/15/21 05:30 Laboratory Tests 08/15/21 05:30 ASSESSMENT & PLAN A&P Plan as noted above This note was created using [employer] and may have omissions and/or errors due to the nature of real-time voice telecine operator. Justifications for Admission Other Justification SBO LATOYA GRIER MD Aug 15, 2021 12:21
[2021-08-15] MEDS: TPN PER PHARMACY MC PRN (12:39)
--- NOTE | 2021-08-15 12:43 | NUR ---
Pharmacy TPN Dosing Note S: FELICE GROVE is a 56 year old M Currently receiving Central Continuous TPN started 08/06/21 B:Pertinent PMH: High residuals w/tube feeding Height: 5 feet, 5 inches Weight: 76.5 kg Current diet: NPO LABS: Sodium: 142 Potassium: 3.8 Chloride: 100 Calcium: 8.2 Corrected Calcium: 10.04 Magnesium: 2.6 CO2: 25 SCr: 5.6 Glucose: 106 Albumin: 1.7 AST: 62 ALT: 41 TPN FORMULA: TPN TYPE: Central Continuous AMINO ACIDS: 90 gm DEXTROSE: 175 gm LIPIDS: 0 gm SODIUM CHLORIDE: 130 mEq SODIUM ACETATE: mEq SODIUM PHOSPHATE: mmol POTASSIUM CHLORIDE: 0 mEq POTASSIUM ACETATE: mEq POTASSIUM PHOSPHATE: 0 mmol MAGNESIUM: -- mEq CALCIUM: 0 mEq INSULIN: units MULTIPLE VITAMIN: 10 ml TRACE ELEMENTS: 1 ml(s) TPN PLAN: Continue same tpn. CMP, Mag, Phos in am. R: Continue TPN as ordered Will monitor electrolytes, glucose, and tolerance to TPN. DELPHINE ARCEO, [facility], 08/15/21 [id number]
[2021-08-15 19:50] LABS: FECAL OB PT POSITIVE (NEG)
[2021-08-15] MEDS: ATORVASTATIN CALCIUM 20 MG TABLET PO SCH (21:00)
[2021-08-15] MEDS ORDERED: DEXTROSE 70% IV SCH (22:00)
[2021-08-15] MEDS ORDERED: AMINO ACID IV SCH (22:00)
[2021-08-15] MEDS ORDERED: TOTAL PARENTERAL NUTRITION IV SCH (22:00)
[2021-08-15] MEDS ORDERED: [UNRECOGNIZED DRUG - OTHER] IV SCH (22:00)
[2021-08-16 00:15] VITALS: BP 67/42
[2021-08-16 00:32] LABS: HEMATOCRIT 22.1 % (39.0-53.0); RED BLOOD COUNT 2.21 x10^6/uL (4.30-5.70); WHITE BLOOD COUNT 18.5 x10^3/uL (4.0-11.0)
[2021-08-16 00:33] LABS: RED CELL DISTRIBUTION WIDTH 18.6 % (11.5-14.5)
[2021-08-16] MEDS ORDERED: EPINEPHrine SYRINGE 1 MG/10 ML SYRINGE. ONE (01:00)
[2021-08-16 01:33] LABS: PROTHROMBIN TIME PATIENT 23.7 SEC (11.7-14.0)
[2021-08-16] MEDS: NOREPINEPHRINE VIAL 32 MG in IV D5W 250ML IV PRN (04:06)
[2021-08-16] MEDS: NAFCILLIN 2 GM in IV DEXTROSE 5% 100ML 100 ML IV SCH (04:41)
[2021-08-16] MEDS ORDERED: EPINEPHrine VIAL 5 MG in IV NORMAL SALINE 250ML 250 ML IV PRN (05:45)
[2021-08-16 06:06] LABS: BASO # 0.2 x10^3/uL (0.0-0.2); BASO % 1 % (0-3); EOS # 0.3 x10^3/uL (0.0-0.7); EOS % 1 % (0-3); HEMATOCRIT 23.9 % (39.0-53.0); LYMPH % 17 % (24-48); MEAN CORPUSCULAR HEMOGLOBIN 30 pg (25-35); MEAN CORPUSCULAR HGB CONC 28 g/dL (31-37); MEAN CORPUSCULAR VOLUME 109 fL (79-100); MONO # 1.3 x10^3/uL (0.0-1.1); MONO % 5 % (0-9); NEUT % 76 % (31-73); PLATELET COUNT 147 x10^3/uL (140-400); RED BLOOD COUNT 2.19 x10^6/uL (4.30-5.70); RED CELL DISTRIBUTION WIDTH 21.3 % (11.5-14.5); WHITE BLOOD COUNT 23.7 x10^3/uL (4.0-11.0)
[2021-08-16 06:07] LABS: HEMOGLOBIN 6.6 g/dL (13.0-17.5)
--- NOTE | 2021-08-16 07:00 | NUR ---
Pt has been unstable all shift. Levophed and Dopamine are at max rate and no pressures can be read. Has had several bloody stools, blood from OGT, and mouth. Hemaglobin was 7.0 and patient was given 2uPRBCs and 2u FFP and hemaglobin dropped to 6.6. Delfina Rodríguez and Sunitha are aware of patients condition and patients mother was notified of patients condition. 3 messages were left on her phone and she called back at [phone]. She is trying to get a ride to come in and have patient taken off of the ventilator for comfort measures.
[2021-08-16] MEDS ORDERED: MORPHINE SULFATE 10 MG/ML VIAL. IVP ONE (07:15)
--- NOTE | 2021-08-16 07:30 | NUR ---
Patients mother and her friend at bedside. Requested ETT be removed. Patient was given Morphine and Ativan and ETT was removed. Patient at 726. Mother tearful but accepting of letting him go.
--- NOTE | 2021-08-16 08:46 | PDOC ---
Infectious Disease Note Vital Signs: Vital Signs Vital Signs Date Time Temp Pulse Resp B/P (MAP) Pulse Ox O2 Delivery O2 Flow Rate FiO2 08/16/21 06:00 52 Ventilator 08/16/21 04:30 79 08/16/21 00:15 18 08/16/21 00:00 97.7 97.7 Physical Exam: PHYSICAL EXAM Medications: Inpatient Meds: Medications reviewed. Labs: Lab Laboratory Tests Test 08/15/21 18:45 08/15/21 18:53 08/16/21 00:09 08/16/21 00:55 Stool Occult Blood Positive (NEG) Glucose (Fingerstick) 111 mg/dL (70-99) White Blood Count 18.5 x10^3/uL (4.0-11.0) Red Blood Count 2.21 x10^6/uL (4.30-5.70) Hemoglobin 7.0 g/dL (13.0-17.5) Hematocrit 22.1 % (39.0-53.0) Mean Corpuscular Volume 100 fL (79-100) Mean Corpuscular Hemoglobin 32 pg (25-35) Mean Corpuscular Hemoglobin Concent 32 g/dL (31-37) Red Cell Distribution Width 18.6 % (11.5-14.5) Platelet Count 368 x10^3/uL (140-400) Prothrombin Time 23.7 SEC (11.7-14.0) Prothromb Time International Ratio 2.2 (0.8-1.1) Fibrinogen 334 mg/dL (200-440) Test 08/16/21 05:50 White Blood Count 23.7 x10^3/uL (4.0-11.0) Red Blood Count 2.19 x10^6/uL (4.30-5.70) Hemoglobin 6.6 g/dL (13.0-17.5) Hematocrit 23.9 % (39.0-53.0) Mean Corpuscular Volume 109 fL (79-100) Mean Corpuscular Hemoglobin 30 pg (25-35) Mean Corpuscular Hemoglobin Concent 28 g/dL (31-37) Red Cell Distribution Width 21.3 % (11.5-14.5) Platelet Count 147 x10^3/uL (140-400) Neutrophils (%) (Auto) 76 % (31-73) Lymphocytes (%) (Auto) 17 % (24-48) Monocytes (%) (Auto) 5 % (0-9) Eosinophils (%) (Auto) 1 % (0-3) Basophils (%) (Auto) 1 % (0-3) Neutrophils # (Auto) 18.0 x10^3/uL (1.8-7.7) Lymphocytes # (Auto) 4.0 x10^3/uL (1.0-4.8) Monocytes # (Auto) 1.3 x10^3/uL (0.0-1.1) Eosinophils # (Auto) 0.3 x10^3/uL (0.0-0.7) Basophils # (Auto) 0.2 x10^3/uL (0.0-0.2) BRYSON VALERIO MD Aug 16, 2021 08:46
[2021-08-16] MEDS ORDERED: PANTOPRAZOLE IV PUSH 40 MG VIAL. IVP SCH (09:00)
--- NOTE | 2021-08-16 11:50 | NUR ---
Patients mom Sarah will call with a home decision. She was unsure of who she was going to use.
== END 2021-08-16 07:27 | DRG 870 ==
LOC: ER 10:57 → 1 WEST ICU 12:24
PROVIDERS: ADMIT Internal Medicine; ATTEND Internal Medicine
PROC: 5A1955Z Respiratory Ventilation, Greater than 96 Consecutive Hours (ICD-10-PCS; principal; 2021-08-03)
PROC: 0BH17EZ Insertion of Endotracheal Airway into Trachea, Via Natural or Artificial Opening (ICD-10-PCS; 2021-08-03)
PROC: 5A1D70Z Performance of Urinary Filtration, Intermittent, Less than 6 Hours Per Day (ICD-10-PCS; 2021-08-05)
PROC: 5A1D70Z Performance of Urinary Filtration, Intermittent, Less than 6 Hours Per Day (ICD-10-PCS; 2021-08-06)
PROC: 5A1D70Z Performance of Urinary Filtration, Intermittent, Less than 6 Hours Per Day (ICD-10-PCS; 2021-08-07)
PROC: 02HV33Z Insertion of Infusion Device into Superior Vena Cava, Percutaneous Approach (ICD-10-PCS; 2021-08-09)
PROC: B5181ZA Fluoroscopy of Superior Vena Cava using Low Osmolar Contrast, Guidance (ICD-10-PCS; 2021-08-09)
PROC: B548ZZA Ultrasonography of Superior Vena Cava, Guidance (ICD-10-PCS; 2021-08-09)
PROC: 30233K1 Transfusion of Nonautologous Frozen Plasma into Peripheral Vein, Percutaneous Approach (ICD-10-PCS; 2021-08-09)
PROC: 30233N1 Transfusion of Nonautologous Red Blood Cells into Peripheral Vein, Percutaneous Approach (ICD-10-PCS; 2021-08-09)
PROC: 5A1D70Z Performance of Urinary Filtration, Intermittent, Less than 6 Hours Per Day (ICD-10-PCS; 2021-08-10)
PROC: 5A1D70Z Performance of Urinary Filtration, Intermittent, Less than 6 Hours Per Day (ICD-10-PCS; 2021-08-12)
PROC: 5A1D70Z Performance of Urinary Filtration, Intermittent, Less than 6 Hours Per Day (ICD-10-PCS; 2021-08-14)
DX: A41.01 Sepsis due to Methicillin susceptible Staphylococcus aureus (principal); J96.01 Acute respiratory failure with hypoxia; N18.6 End stage renal disease; I50.33 Acute on chronic diastolic (congestive) heart failure; R65.21 Severe sepsis with septic shock; G93.41 Metabolic encephalopathy; J15.6 Pneumonia due to other Gram-negative bacteria; I63.9 Cerebral infarction, unspecified; E11.52 Type 2 diabetes mellitus with diabetic peripheral angiopathy with gangrene; G81.94 Hemiplegia, unspecified affecting left nondominant side; I13.2 Hypertensive heart and chronic kidney disease with heart failure and with stage 5 chronic kidney disease, or end stage renal disease; I47.2 Ventricular tachycardia; J44.0 Chronic obstructive pulmonary disease with (acute) lower respiratory infection; J98.11 Atelectasis; K92.2 Gastrointestinal hemorrhage, unspecified; N39.0 Urinary tract infection, site not specified; R18.8 Other ascites; D50.0 Iron deficiency anemia secondary to blood loss (chronic); D69.6 Thrombocytopenia, unspecified; E03.9 Hypothyroidism, unspecified; E11.22 Type 2 diabetes mellitus with diabetic chronic kidney disease; E20.9 Hypoparathyroidism, unspecified; E87.5 Hyperkalemia; F17.200 Nicotine dependence, unspecified, uncomplicated; H57.02 Anisocoria; I25.10 Atherosclerotic heart disease of native coronary artery without angina pectoris; I25.5 Ischemic cardiomyopathy; I27.20 Pulmonary hypertension, unspecified; I35.0 Nonrheumatic aortic (valve) stenosis; I44.0 Atrioventricular block, first degree; I65.29 Occlusion and stenosis of unspecified carotid artery; I80.9 Phlebitis and thrombophlebitis of unspecified site; K21.9 Gastro-esophageal reflux disease without esophagitis; N40.0 Benign prostatic hyperplasia without lower urinary tract symptoms; Z20.822 Contact with and (suspected) exposure to COVID-19; Z82.49 Family history of ischemic heart disease and other diseases of the circulatory system; Z83.3 Family history of diabetes mellitus; Z86.73 Personal history of transient ischemic attack (TIA), and cerebral infarction without residual deficits; Z95.0 Presence of cardiac pacemaker; Z99.2 Dependence on renal dialysis; E21.3 Hyperparathyroidism, unspecified; F32.A Depression, unspecified
CPT/HCPCS: 36415; 36430; 36556; 36600; 70450; 70496; 70498; 71045; 71260; 74177; 76937; 80048; 80053; 80061; 80202; 81001; 82274; 82805; 82962; 83036; 83605; 83735; 84100; 84484; 85007; 85025; 85027; 85384; 85610; 85730; 86706; 86850; 86900; 86901; 86922; 86927; 87040; 87077; 87086; 87186; 87205; 87426; 93005; 93306; 93931; 93970; 94002; 94003; 96365; 96366; 96367; C1892; C9113; J0171; J0610; J0744; J1265; J1644; J2060; J2250; J2270; J2370; J2543; J2704; J3010; J3370; J3475; J3480; J3490; J7030; J7040; J7050; J7060; P9016; P9017; P9046; Q9967; U0003; U0005; 99285-25; C8929; G0378